=== PATIENT | female | born 1955 | race Caucasian/White ===

== ENCOUNTER → 2018-01-01 10:09 | Outpatient (CLI) | payer OTHER, SELFPAY ==
[2017-12-22 09:36] VITALS: BP 172/79; BMI 39.9
--- NOTE | 2018-01-01 14:45 | PFT ---
INTRODUCTION: The patient is a 62-year-old female currently under the care of myself the presents for pulmonary function testing secondary to a diagnosis of asthma. Respiratory therapy reports good patient effort reports no other concerns. Bronchodilators were used during testing. INTERPRETATION: Forced expiration spirometry demonstrates no evidence of a large airways obstructive ventilatory defect. There was no significant response to aerosolized bronchodilators, based upon strict ATS criteria. Spirograms are of good quality and plateau normally. Body plethysmography was performed and reveals a decreased TLC to 4.46 L, 83% of predicted, indicative of a mild restrictive ventilatory defect. The remainder of the lung volumes are symmetrically reduced. Decreased ERV may be suggestive of an underlying body habitus effect. Diffusing capacity by single breath CO is moderately reduced at 57% of predicted. IMPRESSION: These pulmonary function studies demonstrate the presence of a mild restrictive ventilatory defect with a disproportionate moderate reduction in diffusing capacity. There are no previous pulmonary function studies available for comparison.
== END ==
PROVIDERS: Family Provider Family Medicine; PCP Family Medicine; Visit Provider Internal Medicine Critical Care Medicine
DX: J45.909 Unspecified asthma, uncomplicated (principal)
CPT/HCPCS: 94060; 94726; 94729

== ENCOUNTER → 2018-01-19 11:39 | Outpatient (CLI) | payer OTHER, SELFPAY ==
[2018-01-19 13:47] LABS: Anion Gap 7 (5-15); BUN 14 mg/dL (7-18); BUN/Creat Ratio 20.3 RATIO (10-20); Calcium,Total 8.8 mg/dL (8.5-10.1); Chloride 106 mmol/L (98-107); Creatinine, Serum 0.69 mg/dL (0.55-1.02); EST Glomerular Filtration Rate 91 mL/min (>60); Est Glom Filt Rate - Afr Amer 111 mL/min (>60); Glucose 87 mg/dL (74-106); Sodium Level 141 mmol/L (136-145)
== END ==
PROVIDERS: Family Provider Family Medicine; PCP Family Medicine; Visit Provider Nurse Practitioner Acute Care
DX: R06.02 Shortness of breath (principal)
CPT/HCPCS: 36415; 80048

== ENCOUNTER → 2018-01-28 13:50 | Outpatient (CLI) | payer OTHER, SELFPAY ==
--- NOTE | 2018-01-28 13:51 | CT_ITS ---
STUDY: CT CHEST WITH CONTRAST REASON FOR EXAM: Female, 62 years old. Cough and shortness of breath. RADIATION DOSAGE (If Supplied By Facility): CTDIvol = ( ) mGy, DLP = ( ) mGycm TECHNIQUE: Transaxial imaging was performed following intravenous administration of 100mL ml of Isovue 300 contrast material. Individualized dose optimization techniques were used for this CT. COMPARISON: None. FINDINGS: There is hyperinflation of the lungs consistent with chronic obstructive lung disease (COPD). No infiltrates or effusions. There is no demonstrated pleural abnormality. There is moderate cardiac enlargement. Sternal cerclage wires and vascular clips are present from a prior sternotomy and coronary artery bypass graft procedure (CABG). Normal mediastinum. Normal hilar regions. Normal enhanced pulmonary arteries. There is atherosclerotic calcification of the aortic arch with tortuosity and elongation of the aortic arch and descending thoracic aorta. There are multi-level degenerative changes of the thoracic spine. There is no demonstrated abnormality of the visualized upper abdomen. CT/Chest WITH Contrast IMPRESSION: There is no definite acute abnormality. There is probable COPD. There is cardiomegaly. Electronically Signed: He Mustafa MD at 15:01 EST , Service support ,
== END ==
PROVIDERS: Family Provider Family Medicine; PCP Family Medicine; Visit Provider Nurse Practitioner Acute Care
DX: R06.02 Shortness of breath (principal); R05 Cough
CPT/HCPCS: 71260; Q9967

== ENCOUNTER → 2018-02-02 13:52 | Outpatient (CLI) | payer OTHER, SELFPAY ==
[2018-02-02 14:16] VITALS: PULSE 112; PULSE 113; PULSE 114; PULSE 117; PULSE 76; PULSE 81; PULSE 98; O2SAT 97; O2SAT 98
--- NOTE | 2018-02-02 14:21 | CPS ---
She became more SOB but just kept walking but slowed down.
--- NOTE | 2018-02-03 08:36 | WT_ITS ---
PSN 6 Minute Walk Test - 6 Minute Walk Test 6 Minute Walk Test: 6 Minute Walk Test PSN:6-Minute Walk Test Start: 02/02/18 14: 16 Freq: Status: Active Protocol: [id number] Document 02/02/18 14:16 FR (Rec: 02/02/18 14:22 FR [id number]) 6 Minute Walk Test Date Performed 02/02/18 Time Performed 14:00 Height 5 ft 7 in Weight: 113.398 kg Weight in Pounds 250.[address]: Xin Back Assistive device used: None Pre-test Oxygen Delivery Method Room Air Pulse Ox (%) 98 Pulse Rate (60-100 beats/min) 76 Dyspnea Charlie Scale (0-10) 1 Exertion Charlie Scale (6-20) 7 1st minute Oxygen Delivery Method Room Air Pulse Ox (%) 97 Pulse Rate (60-100 beats/min) 98 2nd minute Oxygen Delivery Method Room Air Pulse Ox (%) 97 Pulse Rate (60-100 beats/min) 113 H 3rd minute Oxygen Delivery Method Room Air Pulse Ox (%) 98 Pulse Rate (60-100 beats/min) 112 H 4th minute Oxygen Delivery Method Room Air Pulse Ox (%) 98 Pulse Rate (60-100 beats/min) 117 H Reported Symptoms Increased Work of Breathing 5th minute Oxygen Delivery Method Room Air Pulse Ox (%) 98 Pulse Rate (60-100 beats/min) 117 H Reported Symptoms Increased Work of Breathing 6th minute Oxygen Delivery Method Room Air Pulse Ox (%) 98 Pulse Rate (60-100 beats/min) 114 H Dyspnea Charlie Scale (0-10) 7 Exertion Charlie Scale (6-20) 13 Post-test Oxygen Delivery Method Room Air Pulse Ox (%) 98 Pulse Rate (60-100 beats/min) 81 Reported Symptoms Increased Work of Breathing Full Laps Walked 16 Partial Lap, Number of Tiles Walked 48 Total Distance Walked (ft) 992 02/02/18 14:21 Cardiopulmonary Services by Dolly Yuen She became more SOB but just kept walking but slowed down. Initialized on 02/02/18 14:21 - END OF NOTE - Interpretation Interpretation: The patient was able to ambulate 992 feet over the course of 6 minutes on room air with no assistive devices or breaks. The patient did not experience any significant desaturation, but did have significant tachycardia through testing. These findings are consistent with a cardiovascular versus deconditioning etiology of dyspnea on exertion. - Recommendations Recommendations: No supplemental oxygen is indicated at this time. Patient may benefit from initiation of an exercise routine.
== END ==
PROVIDERS: Family Provider Family Medicine; PCP Family Medicine; Visit Provider Nurse Practitioner Acute Care
DX: R06.09 Other forms of dyspnea (principal)
CPT/HCPCS: 94618

== ENCOUNTER → 2018-02-10 15:09 | Outpatient (CLI) | payer OTHER, SELFPAY | PROVIDERS: Family Provider Family Medicine; PCP Family Medicine; Visit Provider Nurse Practitioner Acute Care | DX: R05 Cough (principal) | CPT/HCPCS: 87070; 87205 ==

== ENCOUNTER → 2019-02-09 14:54 | Outpatient (CLI) | payer OTHER, SELFPAY ==
[2019-01-27 11:36] VITALS: BMI 42.3
== END ==
PROVIDERS: Family Provider Family Medicine; PCP Family Medicine; Referring Provider Nurse Practitioner Acute Care; Visit Provider Nurse Practitioner Acute Care
DX: R52 Pain, unspecified (principal)
CPT/HCPCS: 87633

== ENCOUNTER → 2021-09-02 11:42 | Outpatient (CLI) | payer MEDICARE, OTHER, SELFPAY ==
[2019-12-06 08:06] VITALS: BMI 38.5
--- NOTE | 2021-09-02 13:36 | NEURO_ITS ---
NCS and/or EMG Patient Report Ordering Doctor: Nestor Ibanez DATE OF SERVICE: 09/02/21 Indication: Bilateral hand tingling and numbness (right greater than left). Progressive over several years. Localized neck pain without radicular features. Evaluate for nerve entrapment. Findings: Nerve conduction studies were performed in the right and left upper extremities. The right median motor study recording the abductor pollicis brevis showed a normal amplitude, prolonged distal latency and normal conduction velocity. The right ulnar motor study recording the abductor digiti minimi showed a normal amplitude, normal distal latency and normal conduction velocity. No conduction block or focal slowing was present across the elbow. Right median-ulnar lumbrical / interosseous motor latencies showed a prolonged median latency compared to the ulnar. The right median sensory response recording digit two showed a slightly reduced amplitude, prolonged latency and markedly slowed conduction velocity. The right ulnar sensory response recording digit five showed a normal amplitude, latency and conduction velocity. The right radial sensory response recording over the extensor snuff box showed a normal amplitude, latency and conduction velocity. The left median motor study recording the abductor pollicis brevis showed a normal amplitude, prolonged distal latency and borderline conduction velocity. The left ulnar motor study recording the abductor digiti minimi showed a normal amplitude, normal distal latency and normal conduction velocity. No conduction block or focal slowing was present across the elbow. Left median-ulnar lumbrical / interosseous motor latencies showed a prolonged median latency compared to the ulnar. The left median sensory response recording digit two showed a normal amplitude, prolonged latency and markedly slowed conduction velocity. The left ulnar sensory response recording digit five showed a normal amplitude, latency and conduction velocity. The left radial sensory response recording over the extensor snuff box showed a normal amplitude, latency and conduction velocity. Needle EMG of the right upper extremity muscles was performed. No denervation was seen in any muscle. Motor units in the abductor pollicis brevis were slightly large amplitude and long duration with normal recruitment patterns. All other examined motor units revealed normal morphology, activation and recruitment patterns. Needle EMG of the left abductor pollicis brevis muscle was performed. No denervation was seen. Motor units in the abductor pollicis brevis were slightly large amplitude and long duration with normal recruitment. Impression: This is an abnormal study. 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 The pathophysiology is primarily demyelination, though there is some evidence of secondary axonal injury. These findings would be compatible with the clinical diagnosis of carpal tunnel syndrome. In addition, there is no electrophysiologic evidence of a superimposed cervical radiculopathy in the right upper extremity. Holland Minor D.O. Multi Select Codes Neurology Neurology Interp Codes: 49519-91 [facility] [place] tst done w/nerv tst gallego (interp) (-59), 19824-92 [facility] [place] test done w/n test comp (interp) and 03491-03 Nr cndj test 13/> studies (interp)
== END ==
PROVIDERS: PCP Family Medicine; Referring Provider Family Medicine; Visit Provider Family Medicine
DX: G56.03 Carpal tunnel syndrome, bilateral upper limbs (principal)
CPT/HCPCS: 95885; 95886; 95913

== ENCOUNTER 2023-04-23 09:30 | Outpatient (RCR) | payer MEDICARE, OTHER, SELFPAY ==
[2023-04-16 08:58] VITALS: TEMP 35.9; BMI 36.3
--- NOTE | 2023-04-16 09:19 | PCM.WC.HP ---
History of Present Illness Date of Service: 04/16/23 Chief Complaint: Left medial lower extremity ulceration History of Wound: Patient is a 67-year-old female with past medical history of basal cell carcinoma excised 02/04/2023 of the medial malleolus of the left lower extremity, HTN, obesity, knee replacement, and aortic valve insufficiency with murmur, SOB on exertion, and s/p double vessel coronary artery bypass. She states that she was sent by her primary care Dr. Bhavik Barker for evaluation of a nodular and infiltrative basal cell carcinoma in which she saw Dr. Lisa Pryor MD and underwent Mohs excision of the cancer site. Preoperative size of the lesion was noted to be 1.5 cm x 0.8 cm at the left distal pretibial region with final excised the defect size of 1.8 cm x 1.0 cm. She underwent local wound care in office however distance became a factor and she would like to continue to follow-up locally at the wound care center at [facility]. She states following a few days after the procedure she was on the treadmill and did have some swelling of the lower extremity site to which she feels may have worsened the wound. States she will continue to follow with dermatology for continued monitoring/follow-up. She currently denies any N/V/F/chills. Denies further complaints. [facility] Medical History (Updated 04/16/23 @ 12:[address] Gautam Walsh, DPM) Allergic rhinitis Aortic valve insufficiency Asthma Chronic cough Heart murmur Hernia HTN (hypertension) Home Medications albuterol sulfate 2.5 mg/3 mL (0.083 %) solution for nebulization 2.5 mg inhalation Q4H PRN 12/22/17 [History Last Taken Unknown] amlodipine 5 mg tablet 5 mg PO QDAY 12/22/17 [History Last Taken Unknown] aspirin 81 mg tablet,delayed release (Adult Aspirin Regimen) 81 mg PO QDAY 12/22/17 [History Last Taken Unknown] cholecalciferol (vitamin D3) 125 mcg (5,000 unit) capsule 5,000 unit PO QDAY 12/22/17 [History Last Taken Unknown] metoprolol tartrate 50 mg tablet 50 mg PO QDAY 12/22/17 [History Last Taken Unknown] omeprazole 20 mg capsule,delayed release 20 mg PO QDAY 12/22/17 [History Last Taken Unknown] pravastatin 40 mg tablet 40 mg PO QHS 12/22/17 [History Last Taken Unknown] valsartan 160 mg tablet 160 mg PO QDAY 12/22/17 [History Last Taken Unknown] diphenhydramine HCl 25 mg capsule (Benadryl) 25 mg PO QHS PRN 09/02/18 [History Last Taken Unknown] albuterol sulfate 90 mcg/actuation breath activated powder inhaler (ProAir RespiClick) 2 inh inhalation Q4H PRN shortness of breath or wheezing #1 ea 12/22/18 [Rx Last Taken Unknown] prednisone 10 mg tablet 10 mg PO QDAY #30 tabs 08/18/19 [Rx Last Taken Unknown] spacer #1 ea 03/06/20 [Rx Last Taken Unknown] fluticasone propionate 220 mcg/actuation HFA aerosol inhaler (Flovent HFA) 2 inh inhalation BID #12 grams 03/08/20 [Rx Last Taken Unknown] Allergy/AdvReac Type Severity Reaction Status Date / Time naproxen [From Naprosyn] Allergy Severe Hives Verified 12/06/19 10:55 Family History Mother Diabetes Father MADDY (obstructive sleep apnea) Surgical History Status post double vessel coronary artery bypass Total knee replacement status Social History second hand exposure: No alcohol intake: current alcohol intake frequency: a few times a month substance use type: former substance user Date of last use: marijuana in college ROS Constitutional Constitutional: Denies anorexia, change in weight, chills or fever(s) Eyes Eyes: Denies blurry vision, change in vision or double vision ENT HEENT: Denies dysphagia, nasal congestion, nasal discharge or sore throat Cardiovascular Cardiovascular: Denies chest pain, claudication or palpitations Respiratory/Chest Respiratory/Chest: Denies cough, shortness of breath at rest or wheezing Gastrointestinal Gastrointestinal: Denies abdominal pain, constipation, diarrhea, nausea or vomiting Genitourinary Genitourinary: Denies dysuria, hematuria, urinary frequency or urinary urgency Musculoskeletal Musculoskeletal: Denies joint pain, joint stiffness or joint swelling Integumentary Integumentary: Denies lesions, pruritus or rash Neurologic Neurologic: Denies dizziness, numbness or seizures Endocrine Endocrinology: Denies cold intolerance or heat intolerance Hematologic/Lymphatic Hematologic/Lymphatic: Denies easy bleeding or easy bruising Vital Signs Vital Signs Vital Signs: 04/16/23 08:58 Temperature 96.7 F L Temperature Source Temporal Weight Weight: 102.058 kg Body Mass Index (BMI) 36.3 Physical Exam Const alert, oriented x3 and no apparent distress General Appearance: cooperative HEENT normocephalic Eyes Eyes Narrative: Wears glasses General Eye: normal appearance of both eyes Neck General: normal visual inspection Lymph Lymphatic: no lymphadenopathy noted and no lymphedema noted Resp normal respiratory effort Cardio regular rate and regular rhythm Extremity normal capillary refill, no joint enlargement, no calf tenderness and no pedal edema Extremity Narrative: DP and PT pulses are palpable bilateral. Capillary fill time adequate to the digits bilaterally. She is noted to have a vascular malformation with reddish purplish discoloration to the anterior left lower extremity extending proximally to the thigh and up to the hip. Musculoskeletal: Muscle strength 5 of 5 age-appropriate. Does have second digit hammertoe deformity bilateral, this is flexible. Decreased range of motion of the first MTPJ without pain or crepitus bilateral and ankle joint with the knee in extension without pain and crepitus noted bilaterally. Skin no rashes or lesions noted and skin turgor normal Wound Narrative: Ulceration to the anterior aspect of the medial malleolus of the left lower extremity s/p Mohs excision of nodular infiltrative basal cell carcinoma. Ulcerative site demonstrates mixed fibrogranular tissue with well-defined borders and atrophic wound margin. No purulent drainage, no malodor, no erythema, no visible abscess formation, no palpable fluctuance/bogginess, no lymphangitis. Neuro moves all extremities Debridement Note Debridement Note Wound debrided: Left lower extremity Laterality: Left Wound Grade/Stage: Moyer stage I Type of Debridement: Excisional debridement Anesthesia Used: 5% Lidocaine Gel Depth: Down to and including healthy tissue and in the subcutaneous layer Percentage of wound debrided: 100 Instrument Used: 5mm curette Tissue Removed: Fibrous, devitalized subcutaneous, biofilm, slough Severity: Fat Layer Exposed Amount of bleeding with debridement: Mild Bleeding Controlled with: Compression and gauze Patient tolerated procedure: Patient tolerated procedure well Post-Debridement Measurements and Additional Note: Post-Debridement Measurements/Treatment SAKSHI - Nurse 1 - General Ulcer Assessment Start: 04/16/23 08:55 Freq: Status: Active Protocol: ELLEN Activity Type Activity Date Activity User E-sign Co-sign Detail Recorded Client Recorded Date Recorded By Document 04/16/23 08:58 DONNIE [id number] 04/16/23 09:14 DONNIE 04/16/23 08:58 WC - Today's Visit Information Type of service Initial Visit Arrival Mode Ambulatory Height and Weight Height 5 ft 6 in Weight 102.058 kg Weight in Pounds 225.0 lbs Body Mass Index (BMI) 36.3 BMI Classification Obese BSA - N[place]um 2.10 Vital Signs Temperature (97.8 F-99.1 F) 96.7 F L Temperature Source Temporal History Since Last Visit- (Skip if this is Patient's initial visit) Left Footwear Regular Shoe Right Footwear Regular Shoe Pain Scale: 0-10 Numeric Is Patient Pain Free? Yes SAKSHI - Nurse 1 - General Ulcer Measurement Start: 04/16/23 08:55 Freq: Status: Active Protocol: Activity Type Activity Date Activity User E-sign Co-sign Detail Recorded Client Recorded Date Recorded By Document 04/16/23 08:58 DONNIE [id number] 04/16/23 09:14 VT 04/16/23 08:58 Wound Center Nurse 1 #1 L medial ankle -Current Size (cm) - Length 1.5 -Current Size (cm) - Width 1.5 -Current Size (cm) - Depth 0.5 -Total Square Cm 2.25 -Date of Last Picture (Recall this 04/16/23 field) -Photo Taken Yes -Tunneling No -Undermining/Tunneling No -Circular Undermining No -Change in Wound Grade/Stage No -Exudate Amt Large -Exudate Type Yellow/Green -Wound Margin Distinct, Outline Attached -Granulation Amt Small (1-33%) -Granulation Quality [place] -Slough/Fibrin Yes -Necrosis Amt Large (67-100%) -Necrotic Tissue Type Adherent Slough -Structure Exposed N/A -Texture (Nighat-wound Skin Appearance) No Abnormality, Assessed -Moisture ([place]ighat-wound Skin Appearance) No Abnormality, Assessed -Color (Nighat-wound Skin Appearance) No Abnormality, Assessed -Temperature (Nighat-wound Skin No Abnormality Appearance) (Pt Warm) -Tenderness on Palpation (Nighat-wound No Skin Appearance) -Ulcer Cleansing Rinsed/ Irrigated with Saline -Foul Odor after Cleansing No -Anesthetic Used 5% Lidocaine Gel Right Calf (cm) 42 Right Ankle (cm) 22 Left Calf (cm) 38 Left Ankle (cm) 24 Assessment/Plan Assessment/Plan (1) BMI 40.0-44.9, adult: CODE(S): Z68.41 - Body mass index [BMI] 40.0-44.9, adult (2) HTN (hypertension): CODE(S): I10 - Essential (primary) hypertension (3) Basal cell carcinoma (BCC) of left lower extremity: CODE(S): C44.719 - Basal cell carcinoma of skin of left lower limb, including hip (4) Non-pressure chronic ulcer of skin of other sites with muscle involvement without evidence of necrosis: CODE(S): L98.495 - Non-pressure chronic ulcer of skin of other sites with muscle involvement without evidence of necrosis PLAN: Plan Patient seen and evaluated She underwent excision of nodular and infiltrative basal cell carcinoma on 02/04/[address] Lisa Pryor MD. cancerous lesion measured 1.5 cm x 0.8 cm preexcision; post excision final defect size measured 1.8 cm x 1.0 cm. She continues to follow with dermatology. Ulcerative site underwent debridement as noted in the clinical panel above. Ulceration measures 1.8 cm x 1.6 cm x 0.6 cm. No signs of infection. Healthy bleeding granular tissue noted postdebridement. Maryanne applied to the ulcerative bed today with dry sterile dressing. She is to change the dressing daily. Tubigrip stocking applied to lower extremity to aid in edema control. She was instructed to continue to wear the Tubigrip daily and elevate legs at all times of rest to aid in edema control. I believe she will benefit from placement of advanced wound care product, epi fix to aid her healing process. We will apply for EpiFix graft to be placed at next visit. Discussed adequate protein intake to aid in her wound healing. She may also take Robles supplementation to aid wound healing. Discussed signs and symptoms of infection to observe for. She was instructed that if she notices any redness about the ulcer site that moves up the leg, or if she has any purulent drainage, or increasing foul odor, or if she experiences fever greater than 101 degree, nausea, vomiting, chills that these are signs of a progressing infection and she needs to report to the ED. She voices understanding of this today. The following work up and care recommendations were made: Dressing: Maryanne and dry sterile dressing. Change daily Wash: Soap and water Tissue growth optimization: Maryanne Offload: Elevation of lower extremity at all times of rest. To ensure nothing rubs against the ulcerative site on the inside of the left leg. Vascular: DP and PT pulses palpable. Adequate capillary fill time. I do not feel her vascular status is impeding her healing. Edema: Elevation of the lower extremities at all times rest. Once ulcerative site healed plan for compression stockings to aid in edema control. Infection: No signs of infection. Pain: May take [id number] Tylenol as needed for discomfort. Host factors: Basal cell carcinoma left lower extremity, edema. I answered all the patient's questions. To return to the wound healing center in 1 week or call sooner if the patient has any questions or concerns.
[2023-04-23 09:23] VITALS: PULSE 77; RESP 18; TEMP 35.9; BMI 36.3
--- NOTE | 2023-04-23 09:33 | PCM.WC.PN ---
History of Present Illness Date of Service: 04/23/23 Chief Complaint: Left medial lower extremity ulceration History of Wound: Patient is a 67-year-old female with past medical history of basal cell carcinoma excised 02/04/2023 of the medial malleolus of the left lower extremity, HTN, obesity, knee replacement, and aortic valve insufficiency with murmur, SOB on exertion, and s/p double vessel coronary artery bypass. She states that she was sent by her primary care Dr. Bhavik Barker for evaluation of a nodular and infiltrative basal cell carcinoma in which she saw Dr. Lisa Pryor MD and underwent Mohs excision of the cancer site. Preoperative size of the lesion was noted to be 1.5 cm x 0.8 cm at the left distal pretibial region with final excised the defect size of 1.8 cm x 1.0 cm. She underwent local wound care in office however distance became a factor and she would like to continue to follow-up locally at the wound care center at [facility]. She states following a few days after the procedure she was on the treadmill and did have some swelling of the lower extremity site to which she feels may have worsened the wound. States she will continue to follow with dermatology for continued monitoring/follow-up. She currently denies any N/V/F/chills. Denies further complaints. Subjective Subjective This is a 67-year-old female who presents to the wound care center today for follow-up of left medial ankle ulceration s/p Mohs excision of basal cell carcinoma. She had been changing dressings daily to the site. Denies any constitutional symptoms today. Denies further complaints today. Objective Data Objective Data Vital Signs: Vital Signs Temp Pulse Resp 96.6 F L 77 18 04/23/23 09:23 04/23/23 09:23 04/23/23 09:23 Weight: 102.058 kg Body Mass Index (BMI) 36.3 Physical Exam Const alert, oriented x3 and no apparent distress General Appearance: cooperative HEENT normocephalic Eyes Eyes Narrative: Wears glasses General Eye: normal appearance of both eyes Neck General: normal visual inspection Lymph Lymphatic: no lymphadenopathy noted and no lymphedema noted Resp normal respiratory effort Cardio regular rate and regular rhythm Extremity normal capillary refill, no joint enlargement, no calf tenderness and no pedal edema Extremity Narrative: DP and PT pulses are palpable bilateral. Capillary fill time adequate to the digits bilaterally. She is noted to have a vascular malformation with reddish purplish discoloration to the anterior left lower extremity extending proximally to the thigh and up to the hip. Musculoskeletal: Muscle strength 5 of 5 age-appropriate. Does have second digit hammertoe deformity bilateral, this is flexible. Decreased range of motion of the first MTPJ without pain or crepitus bilateral and ankle joint with the knee in extension without pain and crepitus noted bilaterally. Skin no rashes or lesions noted and skin turgor normal Wound Narrative: Ulceration to the anterior aspect of the medial malleolus of the left lower extremity s/p Mohs excision of nodular infiltrative basal cell carcinoma. Ulcerative site demonstrates mixed fibrogranular tissue with well-defined borders and atrophic wound margin. No purulent drainage, no malodor, no erythema, no visible abscess formation, no palpable fluctuance/bogginess, no lymphangitis. Neuro moves all extremities Debridement Note Debridement Note Wound debrided: Left medial ankle Laterality: Left Wound Grade/Stage: Moyer stage I Type of Debridement: Excisional debridement Depth: Down to and including healthy tissue and in the subcutaneous layer Percentage of wound debrided: 100 Instrument Used: 5mm curette Tissue Removed: Fibrous, devitalized subcutaneous, biofilm, slough Severity: Fat Layer Exposed Amount of bleeding with debridement: Mild Bleeding Controlled with: Compression and gauze Patient tolerated procedure: Patient tolerated procedure well Post-Debridement Measurements and Additional Note: Post-Debridement Measurements/Treatment - Nurse 1 - General Ulcer Assessment Start: 04/16/23 08:55 Freq: Status: Active Protocol: [email or web address] Activity Type Activity Date Activity User E-sign Co-sign Detail Recorded Client Recorded Date Recorded By Document 04/16/23 08:58 AK [id number] 04/16/23 09:14 AK Document 04/23/23 09:23 JANIE [id number] 04/23/23 09:27 JANIE 04/16/23 04/23/23 08:58 09:23 - Today's Visit Information Type of service Initial Visit Follow-up Visit (Physician/BALANCER ) Arrival Mode Ambulatory Ambulatory Patient Identification Verified (Name & Yes ) Patient Requires Transmission-Based No Precautions Height and Weight Height 5 ft 6 in Weight 102.058 kg Weight in Pounds 225.0 lbs Body Mass Index (BMI) 36.3 36.3 BMI Classification Obese Obese BSA - [place]um 2.10 Vital Signs Temperature (97.8 F-99.1 F) 96.7 F L 96.6 F L Temperature Source Temporal Temporal Pulse Rate (60-100) 77 Pulse Location Monitor Respiratory Rate (12-18) 18 Respiratory rate source Observation History Since Last Visit- (Skip if this is Patient's initial visit) Have you changed medications since your No last visit? Any new allergies or adverse reactions No Had a fall/change in ADL's that may No increase risk of falls Have you been in the hospital since your No last visit? Has dressing in place as prescribed Yes Has compression in place as prescribed Yes Has offloadiing in place as prescribed N/A Experienced any changes in pain level or No management Left Footwear Regular Shoe Regular Shoe Right Footwear Regular Shoe Regular Shoe Pain Scale: 0-10 Numeric Is Patient Pain Free? Yes Yes WC - Nurse 1 - General Ulcer Measurement Start: 04/16/23 08:55 Freq: Status: Active Protocol: Activity Type Activity Date Activity User E-sign Co-sign Detail Recorded Client Recorded Date Recorded By Document 04/16/23 08:58 AK [id number] 04/16/23 09:14 AK Document 04/23/23 09:23 [id number] 04/23/23 09:27 JF 04/16/23 04/23/23 08:58 09:23 Wound Center Nurse 1 #1 L medial ankle -Combined with other wound No -Current Size (cm) - Length 1.5 1.3 -Current Size (cm) - Width 1.5 1.5 -Current Size (cm) - Depth 0.5 0.4 -Total Square Cm 2.25 1.95 -Date of Last Picture (Recall this 04/16/23 field) -Photo Taken Yes Yes -Epithelialization Small 1-33% -Tunneling No No -Undermining/Tunneling No No -Circular Undermining No No -Change in Wound Grade/Stage No -Exudate Amt Large Small -Exudate Type Yellow/Green Serosanguineous -Wound Margin Distinct, Flat & Intact Outline Attached -Granulation Amt Small (1-33%) Small (1-33%) -Granulation Quality [place] Pale -Slough/Fibrin Yes Yes -Necrosis Amt Large (67-100%) Large (67-100%) -Necrotic Tissue Type Adherent Slough Adherent Slough -Structure Exposed N/A N/A -Texture (Nighat-wound Skin Appearance) No Abnormality, Assessed, Assessed Localized Edema -Moisture (Nighat-wound Skin Appearance) No Abnormality, Assessed,Dry/ Assessed Scaly -Color (Nighat-wound Skin Appearance) No Abnormality, Assessed Assessed -Temperature (Nighat-wound Skin No Abnormality No Abnormality Appearance) (Pt Warm) (Pt Warm) -Tenderness on Palpation (Nighat-wound No No Skin Appearance) -Ulcer Cleansing Rinsed/ Rinsed/ Irrigated with Irrigated with Saline Saline -Foul Odor after Cleansing No No -Anesthetic Used 5% Lidocaine 5% Lidocaine Gel Gel Lower Limb Edema Present Yes Right Calf (cm) 42 Right Ankle (cm) 22 Left Calf (cm) 38 37 Left Ankle (cm) 24 22 WC - Nurse 2 - General Ulcer CM Notes Start: 04/16/23 08:55 Freq: Status: Active Protocol: Activity Type Activity Date Activity User E-sign Co-sign Detail Recorded Client Recorded Date Recorded By Document 04/16/23 10:10 NAYELI [id number] 04/16/23 10:11 PL 04/16/23 10:10 Wound Center Nurse 2 #1 L medial ankle -Time 09:40 -Correct Patient Yes -Correct Side, Site, Position Yes -Correct Procedure Yes -Procedure Performed Yes -Type of Procedure Debridement -Clinical Debridement Subcutaneous -Tissue Removed Subcutaneous -Post Debridement (cm) - Length 1.8 -Post Debridement (cm) - Width 1.6 -Post Debridement (cm) - Depth 0.2 -Total Square (Post) (cm) 2.88 -Area of Debridement (cm) - Length 1.8 -Area of Debridement (cm) - Width 1.6 -Total Square (Area) (cm) 2.88 -Tunneling No -Undermining/Tunneling No -Circular Undermining No -Wound/Ulcer Outcome Not Healed -Ulcer Cleansing Rinsed/ Irrigated with Saline -Foul Odor after Cleansing No -Bioengineered Tissue No -Bleeding Controlled with Pressure -Treatment Response Procedure Tolerated Well -Debridement - Subq, 1st 20sq cm Yes Pain Scale: 0-10 Numeric Is Patient Pain Free? Yes - Nurse 3 - General Ulcer D/C NN Start: 04/16/23 08:55 Freq: Status: Active Protocol: Activity Type Activity Date Activity User E-sign Co-sign Detail Recorded Client Recorded Date Recorded By Document 04/16/23 10:02 HYACINTH [id number] 04/16/23 10:04 HYACINTH 04/16/23 10:02 Wound Care Center Nurse 3 #1 L medial ankle -Ulcer Cleansing Rinsed/ Irrigated with Saline -Foul Odor after Cleansing No -Primary Dressing Applied Mepilex Border, Promogran Maryanne Matter -Mepilex Border 1 -Promogran Maryanne Matter 1 Treatment Response Procedure Tolerated Well Pain Scale: 0-10 Numeric Is Patient Pain Free? Yes WC - Visit Discharge Discharge Condition Stable Ambulatory Status Ambulatory Transportation Private Auto Assessment/Plan Assessment/Plan (1) BMI 40.0-44.9, adult: CODE(S): Z68.41 - Body mass index [BMI] 40.0-44.9, adult (2) HTN (hypertension): CODE(S): I10 - Essential (primary) hypertension (3) Basal cell carcinoma (BCC) of left lower extremity: CODE(S): C44.719 - Basal cell carcinoma of skin of left lower limb, including hip (4) Non-pressure chronic ulcer of skin of other sites with muscle involvement without evidence of necrosis: CODE(S): L98.495 - Non-pressure chronic ulcer of skin of other sites with muscle involvement without evidence of necrosis PLAN: Plan Patient seen and evaluated She underwent excision of nodular and infiltrative basal cell carcinoma on 02/04/[address] Lisa Pryor MD. cancerous lesion measured 1.5 cm x 0.8 cm preexcision; post excision final defect size measured 1.8 cm x 1.0 cm. She continues to follow with dermatology. Ulcerative site underwent debridement as noted in the clinical panel above. Ulceration measures 1.5 cm x 1.5 cm x 0.4 cm. No signs of infection. Healthy bleeding granular tissue noted postdebridement. EpiFix graft #1 applied to the ulcerative bed today and dressed with Adaptic touch, Steri-Strips and dry sterile dressing. She is to change the outer dressing as needed. She was instructed to not get the dressings wet. Tubigrip stocking applied to lower extremity to aid in edema control. She was instructed to continue to wear the Tubigrip daily and elevate legs at all times of rest to aid in edema control. Ulceration is noted to have some improvement in reduction of size versus previous visit. Discussed adequate protein intake to aid in her wound healing. She may also take Robles supplementation to aid wound healing. Discussed signs and symptoms of infection to observe for. She was instructed that if she notices any redness about the ulcer site that moves up the leg, or if she has any purulent drainage, or increasing foul odor, or if she experiences fever greater than 101 degree, nausea, vomiting, chills that these are signs of a progressing infection and she needs to report to the ED. She voices understanding of this today. The following work up and care recommendations were made: Dressing: EpiFix, Adaptic touch, Steri-Strips and dry sterile dressing. Change outer dressings as needed Wash: Do not get wet Tissue growth optimization: EpiFix Offload: Elevation of lower extremity at all times of rest. To ensure nothing rubs against the ulcerative site on the inside of the left leg. Vascular: DP and PT pulses palpable. Adequate capillary fill time. I do not feel her vascular status is impeding her healing. Edema: Elevation of the lower extremities at all times rest. Once ulcerative site healed plan for compression stockings to aid in edema control. Infection: No signs of infection. Pain: May take [id number] Tylenol as needed for discomfort. Host factors: Basal cell carcinoma left lower extremity, edema. I answered all the patient's questions. To return to the wound healing center in 1 week or call sooner if the patient has any questions or concerns.
[2023-04-23 09:49] VITALS: BP 169/101; PULSE 73; BMI 36.3
== END 2023-04-29 23:59 | disposition home or self-care (01) ==
LOC: WC 09:30
PROVIDERS: PCP Family Medicine; Referring Provider Dermatology MOHS-Micrographic Surgery; Visit Provider Student in an Organized Health Care Education/Training Program
DX: L98.492 Non-pressure chronic ulcer of skin of other sites with fat layer exposed (principal); F12.90 Cannabis use, unspecified, uncomplicated; C44.719 Basal cell carcinoma of skin of left lower limb, including hip; I10 Essential (primary) hypertension
CPT/HCPCS: 11042; 15271; 99213; Q4186; G0463

== ENCOUNTER 2023-05-28 09:45 | Outpatient (RCR) | payer MEDICARE, OTHER, SELFPAY ==
[2023-04-30 00:46] VITALS: BP 169/101; PULSE 73; RESP 18; TEMP 35.9; BMI 36.3
[2023-04-30 09:24] VITALS: BP 193/89; PULSE 75; RESP 18; TEMP 36; BMI 36.3
--- NOTE | 2023-04-30 09:46 | PN.PCM_ITS ---
History of Present Illness Date of Service: 04/30/23 Chief Complaint: Left medial lower extremity ulceration History of Wound: Patient is a 67-year-old female with past medical history of basal cell carcinoma excised 02/04/2023 of the medial malleolus of the left lower extremity, HTN, obesity, knee replacement, and aortic valve insufficiency with murmur, SOB on exertion, and s/p double vessel coronary artery bypass. She states that she was sent by her primary care Dr. Bhavik Barker for evaluation of a nodular and infiltrative basal cell carcinoma in which she saw Dr. Lisa Pyror MD and underwent Mohs excision of the cancer site. Preoperative size of the lesion was noted to be 1.5 cm x 0.8 cm at the left distal pretibial region with final excised the defect size of 1.8 cm x 1.0 cm. She underwent local wound care in office however distance became a factor and she would like to continue to follow-up locally at the wound care center at [facility]. She states following a few days after the procedure she was on the treadmill and did have some swelling of the lower extremity site to which she feels may have worsened the wound. States she will continue to follow with dermatology for continued monitoring/follow-up. She currently denies any N/V/F/chills. Denies further complaints. Subjective Subjective This is a 67-year-old female who presents to the wound care center today for follow-up of left medial ankle ulceration s/p Mohs excision of basal cell carcinoma.? She had been changing outer dressings as needed and has left the graft in place.? Denies any constitutional symptoms today.? Denies further complaints today. Objective Data Objective Data Vital Signs: Vital Signs Temp Pulse Resp BP 96.8 F L 75 18 193/89 H 04/30/23 09:24 04/30/23 09:24 04/30/23 09:24 04/30/23 09:24 Weight: 102.058 kg Body Mass Index (BMI) 36.3 Physical Exam Const alert, oriented x3 and no apparent distress General Appearance: cooperative HEENT normocephalic Eyes General Eye: normal appearance of both eyes Neck General: normal visual inspection Lymph Lymphatic: no lymphadenopathy noted and no lymphedema noted Resp normal respiratory effort Cardio regular rate and regular rhythm Extremity normal capillary refill, no joint enlargement, no calf tenderness and no pedal edema Extremity Narrative: DP and PT pulses are palpable bilateral.? Capillary fill time adequate to the digits bilaterally.? She is noted to have a vascular malformation with reddish purplish discoloration to the anterior left lower extremity extending proximally to the thigh and up to the hip. Musculoskeletal: Muscle strength 5 of 5 age-appropriate.? Does have second digit hammertoe deformity bilateral, this is flexible.? Decreased range of motion of the first MTPJ without pain or crepitus bilateral and ankle joint with the knee in extension without pain and crepitus noted bilaterally. Skin no rashes or lesions noted, skin turgor normal and no jaundice Wound Narrative: Ulceration to the anterior aspect of the medial malleolus of the left lower extremity s/p Mohs excision of nodular infiltrative basal cell carcinoma.? Ulcerative site demonstrates mixed fibrogranular tissue with well-defined borders and atrophic wound margin.? No purulent drainage, no malodor, no erythema, no visible abscess formation, no palpable fluctuance/bogginess, no lymphangitis. Neuro moves all extremities Debridement Note Debridement Note Wound debrided: Left medial leg Laterality: Left Wound Grade/Stage: Moyer stage I Type of Debridement: Excisional debridement Anesthesia Used: 5% Lidocaine Gel Depth: Down to and including healthy tissue and in the subcutaneous layer Percentage of wound debrided: 100 Instrument Used: 5mm curette Tissue Removed: Fibrous, devitalized subcutaneous, biofilm, slough Severity: Fat Layer Exposed Amount of bleeding with debridement: Mild Bleeding Controlled with: Compression and gauze Patient tolerated procedure: Patient tolerated procedure well Post-Debridement Measurements and Additional Note: Post-Debridement Measurements/Treatment - Nurse 1 - General Ulcer Assessment Start: 04/30/23 09:24 Freq: Status: Active Protocol: SAKSHI.LOWEXT Activity Type Activity Date Activity User E-sign Co-sign Detail Recorded Client Recorded Date Recorded By Document 04/30/23 09:24 JANIE [id number] 04/30/23 09:40 JANIE 04/30/23 09:24 - Today's Visit Information Type of service Follow-up Visit (Physician/[employer] ) Arrival Mode Ambulatory Patient Identification Verified (Name & Yes ) Patient Requires Transmission-Based No Precautions Height and Weight Body Mass Index (BMI) 36.3 BMI Classification Obese Vital Signs Temperature (97.8 F-99.1 F) 96.8 F L Temperature Source Temporal Pulse Rate (60-100) 75 Pulse Location Monitor Respiratory Rate (12-18) 18 Blood Pressure (90/60-120/80) 193/89 H Blood Pressure Mean (mm Hg) 123 Source Monitor Position Semi-Fowlers Blood Pressure Location Left Arm History Since Last Visit- (Skip if this is Patient's initial visit) Have you changed medications since your No last visit? Any new allergies or adverse reactions No Had a fall/change in ADL's that may No increase risk of falls Signs or symptoms of abuse and/or No neglect since last visit Have you been in the hospital since your No last visit? Has dressing in place as prescribed Yes Has compression in place as prescribed Yes Has offloadiing in place as prescribed N/A Experienced any changes in pain level or No management Left Footwear Regular Shoe Right Footwear Regular Shoe Pain Scale: 0-10 Numeric Is Patient Pain Free? Yes WC - Nurse 1 - General Ulcer Measurement Start: 04/30/23 09:24 Freq: Status: Active Protocol: Activity Type Activity Date Activity User E-sign Co-sign Detail Recorded Client Recorded Date Recorded By Document 04/30/23 09:24 JANIE [id number] 04/30/23 09:40 JANIE 04/30/23 09:24 Wound Center Nurse 1 #1 L medial ankle -Combined with other wound No -Current Size (cm) - Length 1.6 -Current Size (cm) - Width 1.5 -Current Size (cm) - Depth 0.4 -Total Square Cm 2.40 -Photo Taken Yes -Epithelialization Small 1-33% -Tunneling No -Undermining/Tunneling No -Circular Undermining No -Exudate Amt Medium -Exudate Type Serosanguineous -Wound Margin Flat & Intact -Granulation Amt Medium (34-66%) -Granulation Quality Red -Slough/Fibrin Yes -Necrosis Amt Small (1-33%) -Necrotic Tissue Type Adherent Slough -Structure Exposed N/A -Texture (Nighat-wound Skin Appearance) Assessed -Moisture (Nighat-wound Skin Appearance) Assessed,Dry/ Scaly -Color (Nighat-wound Skin Appearance) Assessed -Temperature (Nighat-wound Skin No Abnormality Appearance) (Pt Warm) -Tenderness on Palpation (Nighat-wound No Skin Appearance) -Ulcer Cleansing Wound Cleanser -Foul Odor after Cleansing No -Anesthetic Used 5% Lidocaine Gel Lower Limb Edema Present Yes Left Calf (cm) 37.6 Left Ankle (cm) 21.1 Assessment/Plan Assessment/Plan (1) Non-pressure chronic ulcer of skin of other sites with muscle involvement without evidence of necrosis: CODE(S): L98.495 - Non-pressure chronic ulcer of skin of other sites with muscle involvement without evidence of necrosis (2) Basal cell carcinoma (BCC) of left lower extremity: CODE(S): C44.719 - Basal cell carcinoma of skin of left lower limb, including hip (3) HTN (hypertension): CODE(S): I10 - Essential (primary) hypertension (4) BMI 40.0-44.9, adult: CODE(S): Z68.41 - Body mass index [BMI] 40.0-44.9, adult PLAN: Plan Patient seen and evaluated She underwent excision of nodular and infiltrative basal cell carcinoma on 02/04/[address] Lisa Pryor MD. cancerous lesion measured 1.5 cm x 0.8 cm preexcision; post excision final defect size measured 1.8 cm x 1.0 cm.? She continues to follow with dermatology. Ulcerative site underwent debridement as noted in the clinical panel above.? Ulceration measures 1.5 cm x 1.5 cm x 0.8 cm.? No signs of infection.? Healthy bleeding granular tissue noted postdebridement.? EpiFix graft #2 applied to the ulcerative bed today and dressed with Adaptic touch, Steri-Strips and dry sterile dressing.? She is to change the outer dressing as needed.? She was instructed to not get the dressings wet.? Tubigrip stocking applied to lower extremity to aid in edema control.? She was instructed to continue to wear the Tubigrip daily and elevate legs at all times of rest to aid in edema control. Ulceration is noted to have some improvement in reduction of size versus previous visit. Discussed adequate protein intake to aid in her wound healing.? She may also take Robles supplementation to aid wound healing. Discussed signs and symptoms of infection to observe for.? She was instructed that if she notices any redness about the ulcer site that moves up the leg, or if she has any purulent drainage, or increasing foul odor, or if she experiences fever greater than 101 degree, nausea, vomiting, chills that these are signs of a progressing infection and she needs to report to the ED.? She voices understanding of this today. The following work up and care recommendations were made: Dressing: EpiFix, Adaptic touch, Steri-Strips and dry sterile dressing.? Change outer dressings as needed Wash: Do not get wet Tissue growth optimization: EpiFix Offload: Elevation of lower extremity at all times of rest.? To ensure nothing rubs against the ulcerative site on the inside of the left leg. Vascular: DP and PT pulses palpable.? Adequate capillary fill time.? I do not feel her vascular status is impeding her healing. Edema: Elevation of the lower extremities at all times rest.? Once ulcerative site healed plan for compression stockings to aid in edema control. Infection: No signs of infection. Pain: May take [id number] Tylenol as needed for discomfort. Host factors: Basal cell carcinoma left lower extremity, edema. ? I answered all the patient's questions.? To return to the wound healing center in 1 week or call sooner if the patient has any questions or concerns.
--- NOTE | 2023-05-07 09:13 | PN.PCM_ITS ---
History of Present Illness Date of Service: 05/07/23 Chief Complaint: Left medial lower extremity ulceration History of Wound: Patient is a 67-year-old female with past medical history of basal cell carcinoma excised 02/04/2023 of the medial malleolus of the left lower extremity, HTN, obesity, knee replacement, and aortic valve insufficiency with murmur, SOB on exertion, and s/p double vessel coronary artery bypass. She states that she was sent by her primary care Dr. Bhavik Barker for evaluation of a nodular and infiltrative basal cell carcinoma in which she saw Dr. Lisa Pryor MD and underwent Mohs excision of the cancer site. Preoperative size of the lesion was noted to be 1.5 cm x 0.8 cm at the left distal pretibial region with final excised the defect size of 1.8 cm x 1.0 cm. She underwent local wound care in office however distance became a factor and she would like to continue to follow-up locally at the wound care center at [facility]. She states following a few days after the procedure she was on the treadmill and did have some swelling of the lower extremity site to which she feels may have worsened the wound. States she will continue to follow with dermatology for continued monitoring/follow-up. She currently denies any N/V/F/chills. Denies further complaints. Subjective Subjective This is a 67-year-old female who presents to the wound care center today for follow-up of left medial ankle ulceration s/p Mohs excision of basal cell carcinoma.? She had been changing outer dressings as needed and has left the graft in place.? States she does believe it is a little smaller. Denies any constitutional symptoms today.? Denies further complaints today. Objective Data Objective Data Vital Signs: Vital Signs Temp Pulse Resp BP 96.8 F L 75 18 193/89 H 04/30/23 09:24 04/30/23 09:24 04/30/23 09:24 04/30/23 09:24 Weight: 102.058 kg Body Mass Index (BMI) 36.3 Physical Exam Const alert, oriented x3 and no apparent distress General Appearance: cooperative HEENT normocephalic Eyes General Eye: normal appearance of both eyes Neck General: normal visual inspection Lymph Lymphatic: no lymphadenopathy noted and no lymphedema noted Resp normal respiratory effort Cardio regular rate and regular rhythm Extremity normal capillary refill, no joint enlargement, no calf tenderness and no pedal edema Extremity Narrative: DP and PT pulses are palpable bilateral.? Capillary fill time adequate to the digits bilaterally.? She is noted to have a vascular malformation with reddish purplish discoloration to the anterior left lower extremity extending proximally to the thigh and up to the hip. Musculoskeletal: Muscle strength 5 of 5 age-appropriate.? Does have second digit hammertoe deformity bilateral, this is flexible.? Decreased range of motion of the first MTPJ without pain or crepitus bilateral and ankle joint with the knee in extension without pain and crepitus noted bilaterally. Skin no rashes or lesions noted, skin turgor normal and no jaundice Wound Narrative: Ulceration to the anterior aspect of the medial malleolus of the left lower extremity s/p Mohs excision of nodular infiltrative basal cell carcinoma.? Ulcerative site demonstrates mixed fibrogranular tissue with well-defined borders and atrophic wound margin.? No purulent drainage, no malodor, no erythema, no visible abscess formation, no palpable fluctuance/bogginess, no lymphangitis. Neuro moves all extremities Debridement Note Debridement Note Wound debrided: Left lower extremity Laterality: Left Wound Grade/Stage: Moyer stage I Type of Debridement: Excisional debridement Anesthesia Used: 5% Lidocaine Gel Depth: Down to and including healthy tissue and in the subcutaneous layer Percentage of wound debrided: 100 Instrument Used: 5mm curette Tissue Removed: Fibrous, devitalized subcutaneous, biofilm, slough Severity: Fat Layer Exposed Amount of bleeding with debridement: Mild Bleeding Controlled with: Compression and gauze Patient tolerated procedure: Patient tolerated procedure well Post-Debridement Measurements and Additional Note: Post-Debridement Measurements/Treatment - Nurse 1 - General Ulcer Assessment Start: 04/30/23 09:24 Freq: Status: Active Protocol: [email or web address] Activity Type Activity Date Activity User E-sign Co-sign Detail Recorded Client Recorded Date Recorded By Document 04/30/23 09:24 JANIE [id number] 04/30/23 09:40 JANIE 04/30/23 09:24 - Today's Visit Information Type of service Follow-up Visit (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/[employer]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 ) Arrival Mode Ambulatory Patient Identification Verified (Name & Yes ) Patient Requires Transmission-Based No Precautions Height and Weight Body Mass Index (BMI) 36.3 BMI Classification Obese Vital Signs Temperature (97.8 F-99.1 F) 96.8 F L Temperature Source Temporal Pulse Rate (60-100) 75 Pulse Location Monitor Respiratory Rate (12-18) 18 Blood Pressure (90/60-120/80) 193/89 H Blood Pressure Mean (mm Hg) 123 Source Monitor Position Semi-Fowlers Blood Pressure Location Left Arm History Since Last Visit- (Skip if this is Patient's initial visit) Have you changed medications since your No last visit? Any new allergies or adverse reactions No Had a fall/change in ADL's that may No increase risk of falls Signs or symptoms of abuse and/or No neglect since last visit Have you been in the hospital since your No last visit? Has dressing in place as prescribed Yes Has compression in place as prescribed Yes Has offloadiing in place as prescribed N/A Experienced any changes in pain level or No management Left Footwear Regular Shoe Right Footwear Regular Shoe Pain Scale: 0-10 Numeric Is Patient Pain Free? Yes WC - Nurse 1 - General Ulcer Measurement Start: 04/30/23 09:24 Freq: Status: Active Protocol: Activity Type Activity Date Activity User E-sign Co-sign Detail Recorded Client Recorded Date Recorded By Document 04/30/23 09:24 JANIE [id number] 04/30/23 09:40 JANIE 04/30/23 09:24 Wound Center Nurse 1 #1 L medial ankle -Combined with other wound No -Current Size (cm) - Length 1.6 -Current Size (cm) - Width 1.5 -Current Size (cm) - Depth 0.4 -Total Square Cm 2.40 -Photo Taken Yes -Epithelialization Small 1-33% -Tunneling No -Undermining/Tunneling No -Circular Undermining No -Exudate Amt Medium -Exudate Type Serosanguineous -Wound Margin Flat & Intact -Granulation Amt Medium (34-66%) -Granulation Quality Red -Slough/Fibrin Yes -Necrosis Amt Small (1-33%) -Necrotic Tissue Type Adherent Slough -Structure Exposed N/A -Texture ([place]ighat-wound Skin Appearance) Assessed -Moisture ([place]ighat-wound Skin Appearance) Assessed,Dry/ Scaly -Color ([place]-wound Skin Appearance) Assessed -Temperature ([place]-wound Skin No Abnormality Appearance) (Pt Warm) -Tenderness on Palpation ([place]-wound No Skin Appearance) -Ulcer Cleansing Wound Cleanser -Foul Odor after Cleansing No -Anesthetic Used 5% Lidocaine Gel Lower Limb Edema Present Yes Left Calf (cm) 37.6 Left Ankle (cm) 21.1 WC - Nurse 2 - General Ulcer CM Notes Start: 04/30/23 09:24 Freq: Status: Active Protocol: Activity Type Activity Date Activity User E-sign Co-sign Detail Recorded Client Recorded Date Recorded By Document 04/30/23 12:15 PL [id number] 04/30/23 12:17 PL 04/30/23 12:15 Wound Center Nurse 2 #1 L medial ankle -Time 10:21 -Correct Patient Yes -Correct Side, Site, Position Yes -Correct Procedure Yes -Procedure Performed Yes -Type of Procedure Debridement -Clinical Debridement Subcutaneous -Tissue Removed Subcutaneous -Post Debridement (cm) - Length 1.5 -Post Debridement (cm) - Width 1.5 -Post Debridement (cm) - Depth 0.9 -Total Square (Post) (cm) 2.25 -Area of Debridement (cm) - Length 1.5 -Area of Debridement (cm) - Width 1.5 -Total Square (Area) (cm) 2.25 -Tunneling No -Undermining/Tunneling No -Circular Undermining No -Wound/Ulcer Outcome Not Healed -Ulcer Cleansing Rinsed/ Irrigated with Saline -Foul Odor after Cleansing No -Bioengineered Tissue Yes -Type of Bioengineered Tissue Epifix 18mm Disc -Expiration Date 01/29/28 -Product Lot Number [id number] -Percent Used 100 -Bleeding Controlled with Pressure -Treatment Response Procedure Tolerated Well -Debridement - Subq, 1st 20sq cm No -Apply Skin Sub - 1st 25 sq cm - Legs 1 -Epifix 18mm Disc 3 Pain Scale: 0-10 Numeric Is Patient Pain Free? Yes WC - Nurse 3 - General Ulcer D/C NN Start: 04/30/23 09:24 Freq: Status: Active Protocol: Activity Type Activity Date Activity User E-sign Co-sign Detail Recorded Client Recorded Date Recorded By Document 04/30/23 09:59 AK [id number] 04/30/23 10:00 AK Undo 04/30/23 09:59 AK Adjusting Time [id number] 04/30/23 10:01 AK Assessment/Plan Assessment/Plan (1) Non-pressure chronic ulcer of skin of other sites with muscle involvement without evidence of necrosis: CODE(S): L98.495 - Non-pressure chronic ulcer of skin of other sites with muscle involvement without evidence of necrosis (2) Basal cell carcinoma (BCC) of left lower extremity: CODE(S): C44.719 - Basal cell carcinoma of skin of left lower limb, including hip (3) HTN (hypertension): CODE(S): I10 - Essential (primary) hypertension (4) BMI 40.0-44.9, adult: CODE(S): Z68.41 - Body mass index [BMI] 40.0-44.9, adult (5) Non-pressure chronic ulcer of left calf with fat layer exposed: CODE(S): L97.222 - Non-pressure chronic ulcer 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 Lisa Pryor MD. cancerous lesion measured 1.5 cm x 0.8 cm preexcision; post excision final defect size measured 1.8 cm x 1.0 cm.? She continues to follow with dermatology. Ulcerative site underwent debridement as noted in the clinical panel above.? Ulceration measures 1.4 cm x 1.3 cm x 0.4 cm.? No signs of infection.? Healthy bleeding granular tissue noted postdebridement.? EpiFix graft #3 applied to the ulcerative bed today and dressed with Adaptic touch, Steri-Strips and dry sterile dressing.? She is to change the outer dressing as needed.? She was instructed to not get the dressings wet.? Tubigrip stocking applied to lower extremity to aid in edema control.? She was instructed to continue to wear the Tubigrip daily and elevate legs at all times of rest to aid in edema control. Ulceration is noted to have some improvement in reduction of size versus previous visit. Discussed adequate protein intake to aid in her wound healing.? She may also take Robles supplementation to aid wound healing. Discussed signs and symptoms of infection to observe for.? She was instructed that if she notices any redness about the ulcer site that moves up the leg, or if she has any purulent drainage, or increasing foul odor, or if she experiences fever greater than 101 degree, nausea, vomiting, chills that these are signs of a progressing infection and she needs to report to the ED.? She voices understanding of this today. The following work up and care recommendations were made: Dressing: EpiFix, Adaptic touch, Steri-Strips and dry sterile dressing.? Change outer dressings as needed Wash: Do not get wet Tissue growth optimization: EpiFix Offload: Elevation of lower extremity at all times of rest.? To ensure nothing rubs against the ulcerative site on the inside of the left leg. Vascular: DP and PT pulses palpable.? Adequate capillary fill time.? I do not feel her vascular status is impeding her healing. Edema: Elevation of the lower extremities at all times rest.? Once ulcerative site healed plan for compression stockings to aid in edema control. Infection: No signs of infection. Pain: May take [id number] Tylenol as needed for discomfort. Host factors: Basal cell carcinoma left lower extremity, edema. ? I answered all the patient's questions.? To return to the wound healing center in 1 week or call sooner if the patient has any questions or concerns.
[2023-05-07 09:26] VITALS: BP 179/69; PULSE 69; TEMP 35.9; BMI 36.3
[2023-05-14 09:34] VITALS: RESP 18; TEMP 35.9; BMI 36.3
--- NOTE | 2023-05-14 09:42 | PCM.WC.PN ---
History of Present Illness Date of Service: 05/14/23 Chief Complaint: Left medial lower extremity ulceration History of Wound: Patient is a 67-year-old female with past medical history of basal cell carcinoma excised 02/04/2023 of the medial malleolus of the left lower extremity, HTN, obesity, knee replacement, and aortic valve insufficiency with murmur, SOB on exertion, and s/p double vessel coronary artery bypass. She states that she was sent by her primary care Dr. Bhavik Barker for evaluation of a nodular and infiltrative basal cell carcinoma in which she saw Dr. Lisa Pryor MD and underwent Mohs excision of the cancer site. Preoperative size of the lesion was noted to be 1.5 cm x 0.8 cm at the left distal pretibial region with final excised the defect size of 1.8 cm x 1.0 cm. She underwent local wound care in office however distance became a factor and she would like to continue to follow-up locally at the wound care center at [facility]. She states following a few days after the procedure she was on the treadmill and did have some swelling of the lower extremity site to which she feels may have worsened the wound. States she will continue to follow with dermatology for continued monitoring/follow-up. She currently denies any N/V/F/chills. Denies further complaints. Subjective Subjective This is a 67-year-old female who presents to the wound care center today for follow-up of left medial ankle ulceration s/p Mohs excision of basal cell carcinoma.? She had been changing outer dressings as needed and has left the graft in place.? She states she believes it is continuing to improve. Denies any constitutional symptoms today.? Denies further complaints today. Objective Data Objective Data Vital Signs: Vital Signs Temp Pulse Resp BP 96.7 F L 69 18 179/69 H 05/07/23 09:26 05/07/23 09:26 04/30/23 09:24 05/07/23 09:26 Weight: 102.058 kg Body Mass Index (BMI) 36.3 Physical Exam Const alert, oriented x3 and no apparent distress General Appearance: cooperative HEENT normocephalic Eyes General Eye: normal appearance of both eyes Neck General: normal visual inspection Lymph Lymphatic: no lymphadenopathy noted and no lymphedema noted Resp normal respiratory effort Cardio regular rate and regular rhythm Extremity normal capillary refill, no joint enlargement, no calf tenderness and no pedal edema Extremity Narrative: DP and PT pulses are palpable bilateral.? Capillary fill time adequate to the digits bilaterally.? She is noted to have a vascular malformation with reddish purplish discoloration to the anterior left lower extremity extending proximally to the thigh and up to the hip. Musculoskeletal: Muscle strength 5 of 5 age-appropriate.? Does have second digit hammertoe deformity bilateral, this is flexible.? Decreased range of motion of the first MTPJ without pain or crepitus bilateral and ankle joint with the knee in extension without pain and crepitus noted bilaterally. Skin no rashes or lesions noted, skin turgor normal and no jaundice Wound Narrative: Ulceration to the anterior aspect of the medial malleolus of the left lower extremity s/p Mohs excision of nodular infiltrative basal cell carcinoma.? Ulcerative site demonstrates mixed fibrogranular tissue with well-defined borders and atrophic wound margin.? No purulent drainage, no malodor, no erythema, no visible abscess formation, no palpable fluctuance/bogginess, no lymphangitis. Neuro moves all extremities Debridement Note Debridement Note Wound debrided: Left lower extremity Laterality: Left Wound Grade/Stage: Moyer stage I Type of Debridement: Selective debridement Anesthesia Used: 5% Lidocaine Gel Depth: Down to and including healthy tissue and in the subcutaneous layer Percentage of wound debrided: 100 Instrument Used: 5mm curette Tissue Removed: Fibrous, devitalized subcutaneous, biofilm, slough Severity: Fat Layer Exposed Amount of bleeding with debridement: Mild Bleeding Controlled with: Compression and gauze Patient tolerated procedure: Patient tolerated procedure well Post-Debridement Measurements and Additional Note: Post-Debridement Measurements/Treatment - Nurse 1 - General Ulcer Assessment Start: 04/30/23 09:24 Freq: Status: Active Protocol: [email or web address] Activity Type Activity Date Activity User E-sign Co-sign Detail Recorded Client Recorded Date Recorded By Document 04/30/23 09:24 JANIE [id number] 04/30/23 09:40 JANIE Document 05/07/23 09:26 DONNIE [id number] 05/07/23 09:28 AK 04/30/23 05/07/23 09:24 09:26 - Today's Visit Information Type of service Follow-up Visit Follow-up Visit (Physician/BUSINESS COORDINATOR (Physician/BUSINESS COORDINATOR ) ) Arrival Mode Ambulatory Ambulatory Patient Identification Verified (Name & Yes Yes ) Patient Requires Transmission-Based No No Precautions Height and Weight Body Mass Index (BMI) 36.3 36.3 BMI Classification Obese Obese Vital Signs Temperature (97.8 F-99.1 F) 96.8 F L 96.7 F L Temperature Source Temporal Temporal Pulse Rate (60-100) 75 69 Pulse Location Monitor Monitor Respiratory Rate (12-18) 18 Blood Pressure (90/60-120/80) 193/89 H 179/69 H Blood Pressure Mean (mm Hg) 123 105 Source Monitor Monitor Position Semi-Fowlers Blood Pressure Location Left Arm History Since Last Visit- (Skip if this is Patient's initial visit) Have you changed medications since your No No last visit? Any new allergies or adverse reactions No No Had a fall/change in ADL's that may No No increase risk of falls Signs or symptoms of abuse and/or No No neglect since last visit Have you been in the hospital since your No No last visit? Has dressing in place as prescribed Yes Yes Has compression in place as prescribed Yes Yes Has offloadiing in place as prescribed N/A N/A Experienced any changes in pain level or No No management Left Footwear Regular Shoe Regular Shoe Right Footwear Regular Shoe Regular Shoe Pain Scale: 0-10 Numeric Is Patient Pain Free? Yes Yes - Nurse 1 - General Ulcer Measurement Start: 04/30/23 09:24 Freq: Status: Active Protocol: Activity Type Activity Date Activity User E-sign Co-sign Detail Recorded Client Recorded Date Recorded By Document 04/30/23 09:24 [id number] 04/30/23 09:40 Document 05/07/23 09:26 AK [id number] 05/07/23 09:28 AK 04/30/23 05/07/23 09:24 09:26 Wound Center Nurse 1 #1 L medial ankle -Combined with other wound No No -Current Size (cm) - Length 1.6 1.5 -Current Size (cm) - Width 1.5 1.1 -Current Size (cm) - Depth 0.4 0.3 -Total Square Cm 2.40 1.65 -Photo Taken Yes Yes -Epithelialization Small 1-33% -Tunneling No No -Undermining/Tunneling No No -Circular Undermining No No -Change in Wound Grade/Stage No -Exudate Amt Medium Medium -Exudate Type Serosanguineous Serosanguineous -Wound Margin Flat & Intact Distinct, Outline Attached -Granulation Amt Medium (34-66%) Medium (34-66%) -Granulation Quality Red [place] -Slough/Fibrin Yes Yes -Necrosis Amt Small (1-33%) Medium (34-66%) -Necrotic Tissue Type Adherent Slough Adherent Slough -Structure Exposed N/A N/A -Texture ([place]-wound Skin Appearance) Assessed No Abnormality, Assessed -Moisture ([place]-wound Skin Appearance) Assessed,Dry/ No Abnormality, Scaly Assessed -Color ([place]-wound Skin Appearance) Assessed Assessed, Hemosiderin Staining -Temperature ([place]-wound Skin No Abnormality No Abnormality Appearance) (Pt Warm) (Pt Warm) -Tenderness on Palpation ([place]-wound No No Skin Appearance) -Ulcer Cleansing Wound Cleanser Soap and Water -Foul Odor after Cleansing No No -Anesthetic Used 5% Lidocaine 5% Lidocaine Gel Gel Lower Limb Edema Present Yes No Left Calf (cm) 37.6 37 Left Ankle (cm) 21.1 21 WC - Nurse 2 - General Ulcer CM Notes Start: 04/30/23 09:24 Freq: Status: Active Protocol: Activity Type Activity Date Activity User E-sign Co-sign Detail Recorded Client Recorded Date Recorded By Document 04/30/23 12:15 PL [id number] 04/30/23 12:17 PL Document 05/07/23 12:36 PL [id number] 05/07/23 12:38 PL 04/30/23 05/07/23 12:15 12:36 Wound Center Nurse 2 #1 L medial ankle -Time 10:21 09:26 -Correct Patient Yes Yes -Correct Side, Site, Position Yes Yes -Correct Procedure Yes Yes -Procedure Performed Yes Yes -Type of Procedure Debridement Debridement -Clinical Debridement Subcutaneous Subcutaneous -Tissue Removed Subcutaneous Subcutaneous -Post Debridement (cm) - Length 1.5 1.4 -Post Debridement (cm) - Width 1.5 1.3 -Post Debridement (cm) - Depth 0.9 0.4 -Total Square (Post) (cm) 2.25 1.82 -Area of Debridement (cm) - Length 1.5 1.4 -Area of Debridement (cm) - Width 1.5 1.3 -Total Square (Area) (cm) 2.25 1.82 -Tunneling No No -Undermining/Tunneling No No -Circular Undermining No No -Wound/Ulcer Outcome Not Healed Not Healed -Ulcer Cleansing Rinsed/ Rinsed/ Irrigated with Irrigated with Saline Saline -Foul Odor after Cleansing No No -Bioengineered Tissue Yes Yes -Type of Bioengineered Tissue Epifix 18mm Epifix 18mm Disc Disc -Expiration Date 01/29/28 01/29/28 -Product Lot Number [id number] -Percent Used 100 100 -Bleeding Controlled with Pressure Pressure -Treatment Response Procedure Procedure Tolerated Well Tolerated Well -Debridement - Subq, 1st 20sq cm No No -Apply Skin Sub - 1st 25 sq cm - Legs 1 1 -Epifix 18mm Disc 3 3 Pain Scale: 0-10 Numeric Is Patient Pain Free? Yes Yes - Nurse 3 - General Ulcer D/C NN Start: 04/30/23 09:24 Freq: Status: Active Protocol: Activity Type Activity Date Activity User E-sign Co-sign Detail Recorded Client Recorded Date Recorded By Document 04/30/23 09:59 AK [id number] 04/30/23 10:00 AK Undo 04/30/23 09:59 AK Adjusting Time [id number] 04/30/23 10:01 AK Document 05/07/23 10:09 AK [id number] 05/07/23 10:10 AK 05/07/23 10:09 Wound Care Center Nurse 3 #1 L medial ankle -Foul Odor after Cleansing No -Negative Pressure Wound Therapy N/A -Primary Dressing Covered/Secured with Dry Gauze & Roll Gauze, Secured with Tape Left -Tubular Bandage Double Layer -Size of Tubigrip Used Size D -Size D ($) 2 -Other single layer but gave extra Pain Scale: 0-10 Numeric Is Patient Pain Free? Yes WC - Visit Discharge Discharge Condition Stable Ambulatory Status Ambulatory Transportation Private Auto Medication Reconcilliation completed & Yes provided to patient/care provider Clinical Summary of Care Provided Yes Assessment/Plan Assessment/Plan (1) Non-pressure chronic ulcer of skin of other sites with muscle involvement without evidence of necrosis: CODE(S): L98.495 - Non-pressure chronic ulcer of skin of other sites with muscle involvement without evidence of necrosis (2) Basal cell carcinoma (BCC) of left lower extremity: CODE(S): C44.719 - Basal cell carcinoma of skin of left lower limb, including hip (3) HTN (hypertension): CODE(S): I10 - Essential (primary) hypertension (4) BMI 40.0-44.9, adult: CODE(S): Z68.41 - Body mass index [BMI] 40.0-44.9, adult (5) Non-pressure chronic ulcer of left calf with fat layer exposed: CODE(S): L97.222 - Non-pressure chronic ulcer 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 Lisa Pryor MD. cancerous lesion measured 1.5 cm x 0.8 cm preexcision; post excision final defect size measured 1.8 cm x 1.0 cm.? She continues to follow with dermatology. Ulcerative site underwent debridement as noted in the clinical panel above.? Ulceration measures 1.0 cm x 1.1 cm x 0.2 cm.? No signs of infection.? Healthy bleeding granular tissue noted postdebridement.? EpiFix graft #4 applied to the ulcerative bed today and dressed with Adaptic touch, Steri-Strips and dry sterile dressing.? She is to change the outer dressing as needed.? She was instructed to not get the dressings wet.? Tubigrip stocking applied to lower extremity to aid in edema control.? She was instructed to continue to wear the Tubigrip daily and elevate legs at all times of rest to aid in edema control. Ulceration is noted to have some improvement in reduction of size versus previous visit. Discussed adequate protein intake to aid in her wound healing.? She may also take Robles supplementation to aid wound healing. Discussed signs and symptoms of infection to observe for.? She was instructed that if she notices any redness about the ulcer site that moves up the leg, or if she has any purulent drainage, or increasing foul odor, or if she experiences fever greater than 101 degree, nausea, vomiting, chills that these are signs of a progressing infection and she needs to report to the ED.? She voices understanding of this today. The following work up and care recommendations were made: Dressing: EpiFix, Adaptic touch, Steri-Strips and dry sterile dressing.? Change outer dressings as needed Wash: Do not get wet Tissue growth optimization: EpiFix Offload: Elevation of lower extremity at all times of rest.? To ensure nothing rubs against the ulcerative site on the inside of the left leg. Vascular: DP and PT pulses palpable.? Adequate capillary fill time.? I do not feel her vascular status is impeding her healing. Edema: Elevation of the lower extremities at all times rest.? Once ulcerative site healed plan for compression stockings to aid in edema control. Infection: No signs of infection. Pain: May take [id number] Tylenol as needed for discomfort. Host factors: Basal cell carcinoma left lower extremity, edema. ? I answered all the patient's questions.? To return to the wound healing center in 1 week or call sooner if the patient has any questions or concerns.
--- NOTE | 2023-05-21 09:57 | PCM.WC.PN ---
History of Present Illness Date of Service: 05/21/23 Chief Complaint: Left medial lower extremity ulceration History of Wound: Patient is a 67-year-old female with past medical history of basal cell carcinoma excised 02/04/2023 of the medial malleolus of the left lower extremity, HTN, obesity, knee replacement, and aortic valve insufficiency with murmur, SOB on exertion, and s/p double vessel coronary artery bypass. She states that she was sent by her primary care Dr. Bhavik Barker for evaluation of a nodular and infiltrative basal cell carcinoma in which she saw Dr. Lisa Pryor MD and underwent Mohs excision of the cancer site. Preoperative size of the lesion was noted to be 1.5 cm x 0.8 cm at the left distal pretibial region with final excised the defect size of 1.8 cm x 1.0 cm. She underwent local wound care in office however distance became a factor and she would like to continue to follow-up locally at the wound care center at [facility]. She states following a few days after the procedure she was on the treadmill and did have some swelling of the lower extremity site to which she feels may have worsened the wound. States she will continue to follow with dermatology for continued monitoring/follow-up. She currently denies any N/V/F/chills. Denies further complaints. Subjective Subjective This is a 67-year-old female who presents to the wound care center today for follow-up of left medial ankle ulceration s/p Mohs excision of basal cell carcinoma.? She had been changing outer dressings as needed and has left the graft in place.? She states she believes there is continued improvement. Denies any constitutional symptoms today.? Denies further complaints today. Objective Data Objective Data Vital Signs: Vital Signs Temp Pulse Resp BP O2 Del Method 96.6 F L 69 18 179/69 H Room Air 05/14/23 09:34 05/07/23 09:26 05/14/23 09:34 05/07/23 09:26 05/14/23 09:34 Oxygen Delivery Method Room Air Weight: 102.058 kg Body Mass Index (BMI) 36.3 Physical Exam Const alert, oriented x3 and no apparent distress General Appearance: cooperative HEENT normocephalic Eyes General Eye: normal appearance of both eyes Neck General: normal visual inspection Lymph Lymphatic: no lymphadenopathy noted and no lymphedema noted Resp normal respiratory effort Cardio regular rate and regular rhythm Extremity normal capillary refill, no joint enlargement, no calf tenderness and no pedal edema Extremity Narrative: DP and PT pulses are palpable bilateral.? Capillary fill time adequate to the digits bilaterally.? She is noted to have a vascular malformation with reddish purplish discoloration to the anterior left lower extremity extending proximally to the thigh and up to the hip. Musculoskeletal: Muscle strength 5 of 5 age-appropriate.? Does have second digit hammertoe deformity bilateral, this is flexible.? Decreased range of motion of the first MTPJ without pain or crepitus bilateral and ankle joint with the knee in extension without pain and crepitus noted bilaterally. Skin no rashes or lesions noted, skin turgor normal and no jaundice Wound Narrative: Ulceration to the anterior aspect of the medial malleolus of the left lower extremity s/p Mohs excision of nodular infiltrative basal cell carcinoma.? Ulcerative site demonstrates mixed fibrogranular tissue with well-defined borders and atrophic wound margin.? No purulent drainage, no malodor, no erythema, no visible abscess formation, no palpable fluctuance/bogginess, no lymphangitis. Neuro moves all extremities Debridement Note Debridement Note Wound debrided: Left lower extremity Laterality: Left Wound Grade/Stage: Moyer stage I Type of Debridement: Excisional debridement Anesthesia Used: 5% Lidocaine Gel Depth: Down to and including healthy tissue and in the subcutaneous layer Percentage of wound debrided: 100 Instrument Used: 5mm curette Tissue Removed: Fibrous, devitalized subcutaneous, biofilm, slough Severity: Fat Layer Exposed Amount of bleeding with debridement: Mild Bleeding Controlled with: Compression and gauze Patient tolerated procedure: Patient tolerated procedure well Post-Debridement Measurements and Additional Note: Post-Debridement Measurements/Treatment SAKSHI - Nurse 1 - General Ulcer Assessment Start: 04/30/23 09:24 Freq: Status: Active Protocol: ELLEN Activity Type Activity Date Activity User E-sign Co-sign Detail Recorded Client Recorded Date Recorded By Document 04/30/23 09:24 JF [id number] 04/30/23 09:40 JF Document 05/07/23 09:26 AK [id number] 05/07/23 09:28 AK Document 05/14/23 09:34 KW [id number] 05/14/23 09:46 KW 04/30/23 05/07/23 05/14/23 09:24 09:26 09:34 - Today's Visit Information Type of service Follow-up Visit Follow-up Visit Follow-up Visit (Physician/PUBLIC POLICY MEDIATOR (Physician/PUBLIC POLICY MEDIATOR (Physician/PUBLIC POLICY MEDIATOR ) ) ) Arrival Mode Ambulatory Ambulatory Ambulatory Patient Identification Verified (Name & Yes Yes Yes ) Patient Requires Transmission-Based No No No Precautions Safety Precautions NA Height and Weight Body Mass Index (BMI) 36.3 36.3 36.3 BMI Classification Obese Obese Obese Vital Signs Temperature (97.8 F-99.1 F) 96.8 F L 96.7 F L 96.6 F L Temperature Source Temporal Temporal Temporal Pulse Rate (60-100) 75 69 Pulse Location Monitor Monitor Monitor Respiratory Rate (12-18) 18 18 Respiratory rate source Observation Oxygen Delivery Method Room Air Blood Pressure (90/60-120/80) 193/89 H 179/69 H Blood Pressure Mean (mm Hg) 123 105 Source Monitor Monitor Monitor Position Semi-Fowlers Sitting Blood Pressure Location Left Arm Left Arm History Since Last Visit- (Skip if this is Patient's initial visit) Have you changed medications since your No No No last visit? Any new allergies or adverse reactions No No No Had a fall/change in ADL's that may No No No increase risk of falls Signs or symptoms of abuse and/or No No No neglect since last visit Have you been in the hospital since your No No No last visit? Has dressing in place as prescribed Yes Yes Has compression in place as prescribed Yes Yes Has offloadiing in place as prescribed N/A N/A Experienced any changes in pain level or No No management Left Footwear Regular Shoe Regular Shoe Regular Shoe Right Footwear Regular Shoe Regular Shoe Regular Shoe Pain Scale: 0-10 Numeric Is Patient Pain Free? Yes Yes Yes - Nurse 1 - General Ulcer Measurement Start: 04/30/23 09:24 Freq: Status: Active Protocol: Activity Type Activity Date Activity User E-sign Co-sign Detail Recorded Client Recorded Date Recorded By Document 04/30/23 09:24 JANIE [id number] 04/30/23 09:40 JANIE Document 05/07/23 09:26 AK [id number] 05/07/23 09:28 AK Document 05/14/23 09:34 [id number] 05/14/23 09:46 KW 04/30/23 05/07/23 05/14/23 09:24 09:26 09:34 Wound Center Nurse 1 #1 L medial ankle -Combined with other wound No No -Current Size (cm) - Length 1.6 1.5 -Current Size (cm) - Width 1.5 1.1 -Current Size (cm) - Depth 0.4 0.3 -Total Square Cm 2.40 1.65 -Photo Taken Yes Yes -Epithelialization Small 1-33% -Tunneling No No -Undermining/Tunneling No No -Circular Undermining No No -Change in Wound Grade/Stage No -Exudate Amt Medium Medium -Exudate Type Serosanguineous Serosanguineous -Wound Margin Flat & Intact Distinct, Distinct, Outline Outline Attached Attached -Granulation Amt Medium (34-66%) Medium (34-66%) -Granulation Quality Red Viola -Slough/Fibrin Yes Yes -Necrosis Amt Small (1-33%) Medium (34-66%) -Necrotic Tissue Type Adherent Slough Adherent Slough -Structure Exposed N/A N/A -Texture (Nighat-wound Skin Appearance) Assessed No Abnormality, Assessed Assessed -Moisture (Nighat-wound Skin Appearance) Assessed,Dry/ No Abnormality, Scaly Assessed -Color (Nighat-wound Skin Appearance) Assessed Assessed, Assessed Hemosiderin Staining -Temperature (Nighat-wound Skin No Abnormality No Abnormality Appearance) (Pt Warm) (Pt Warm) -Tenderness on Palpation (Nighat-wound No No Skin Appearance) -Ulcer Cleansing Wound Cleanser Soap and Water -Foul Odor after Cleansing No No -Anesthetic Used 5% Lidocaine 5% Lidocaine 5% Lidocaine Gel Gel Gel Lower Limb Edema Present Yes No Left Calf (cm) 37.6 37 Left Ankle (cm) 21.1 21 WC - Nurse 2 - General Ulcer CM Notes Start: 04/30/23 09:24 Freq: Status: Active Protocol: Activity Type Activity Date Activity User E-sign Co-sign Detail Recorded Client Recorded Date Recorded By Document 04/30/23 12:15 PL [id number] 04/30/23 12:17 PL Document 05/07/23 12:36 PL [id number] 05/07/23 12:38 PL Document 05/14/23 12:06 PL [id number] 05/14/23 12:08 PL Edit Result 05/14/23 12:06 PL (1) [id number] 05/15/23 12:47 PL (1) #1 L medial ankle - Debridement - Subq, 1st 20sq cm Yes => No - Apply Skin Sub - 1st 25 sq cm - Legs => 1 04/30/23 05/07/23 05/14/23 12:15 12:36 12:06 Wound Center Nurse 2 #1 L medial ankle -Time 10:21 09:26 09:56 -Correct Patient Yes Yes Yes -Correct Side, Site, Position Yes Yes Yes -Correct Procedure Yes Yes Yes -Procedure Performed Yes Yes Yes -Type of Procedure Debridement Debridement Debridement -Clinical Debridement Subcutaneous Subcutaneous Subcutaneous -Tissue Removed Subcutaneous Subcutaneous Subcutaneous -Post Debridement (cm) - Length 1.5 1.4 1.1 -Post Debridement (cm) - Width 1.5 1.3 1.0 -Post Debridement (cm) - Depth 0.9 0.4 0.2 -Total Square (Post) (cm) 2.25 1.82 1.10 -Area of Debridement (cm) - Length 1.5 1.4 1.1 -Area of Debridement (cm) - Width 1.5 1.3 1.0 -Total Square (Area) (cm) 2.25 1.82 1.10 -Tunneling No No No -Undermining/Tunneling No No No -Circular Undermining No No No -Wound/Ulcer Outcome Not Healed Not Healed Not Healed -Ulcer Cleansing Rinsed/ Rinsed/ Rinsed/ Irrigated with Irrigated with Irrigated with Saline Saline Saline -Foul Odor after Cleansing No No No -Bioengineered Tissue Yes Yes Yes -Type of Bioengineered Tissue Epifix 18mm Epifix 18mm Epifix 18mm Disc Disc Disc -Expiration Date 01/29/28 01/29/28 02/29/28 -Product Lot Number [id number] -Percent Used 100 100 100 -Bleeding Controlled with Pressure Pressure Pressure -Treatment Response Procedure Procedure Procedure Tolerated Well Tolerated Well Tolerated Well -Debridement - Subq, 1st 20sq cm No No No -Apply Skin Sub - 1st 25 sq cm - Legs 1 1 1 -Epifix 18mm Disc 3 3 3 Pain Scale: 0-10 Numeric Is Patient Pain Free? Yes Yes Yes WC - Nurse 3 - General Ulcer D/C NN Start: 04/30/23 09:24 Freq: Status: Active Protocol: Activity Type Activity Date Activity User E-sign Co-sign Detail Recorded Client Recorded Date Recorded By Document 04/30/23 09:59 AK [id number] 04/30/23 10:00 AK Undo 04/30/23 09:59 AK Adjusting Time [id number] 04/30/23 10:01 AK Document 05/07/23 10:09 AK [id number] 05/07/23 10:10 AK Document 05/14/23 12:06 PL [id number] 05/14/23 12:08 PL 05/07/23 05/14/23 10:09 12:06 Wound Care Center Nurse 3 #1 L medial ankle -Ulcer Cleansing Not Cleansed -Foul Odor after Cleansing No -Negative Pressure Wound Therapy N/A -Primary Dressing Covered/Secured with Dry Gauze & Dry Gauze & Roll Gauze, Roll Gauze, Secured with Secured with Tape Tape Left -Tubular Bandage Double Layer -Size of Tubigrip Used Size D -Size D ($) 2 -Other single layer but gave extra Pain Scale: 0-10 Numeric Is Patient Pain Free? 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 involvement without evidence of necrosis: CODE(S): L98.495 - Non-pressure chronic ulcer of skin of other sites with muscle involvement without evidence of necrosis (2) Basal cell carcinoma (BCC) of left lower extremity: CODE(S): C44.719 - Basal cell carcinoma of skin of left lower limb, including hip (3) HTN (hypertension): CODE(S): I10 - Essential (primary) hypertension (4) BMI 40.0-44.9, adult: CODE(S): Z68.41 - Body mass index [BMI] 40.0-44.9, adult (5) Non-pressure chronic ulcer of left calf with fat layer exposed: CODE(S): L97.222 - Non-pressure chronic ulcer 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 Lisa Pryor MD. cancerous lesion measured 1.5 cm x 0.8 cm preexcision; post excision final defect size measured 1.8 cm x 1.0 cm.? She continues to follow with dermatology. Ulcerative site underwent debridement as noted in the clinical panel above.? Ulceration measures 0.9 cm x 1.0 cm x 0.1 cm.? No signs of infection.? Healthy bleeding granular tissue noted postdebridement.? EpiFix graft #5 applied to the ulcerative bed today and dressed with Adaptic touch, Steri-Strips and dry sterile dressing.? She is to change the outer dressing as needed.? She was instructed to not get the dressings wet.? Tubigrip stocking applied to lower extremity to aid in edema control.? She was instructed to continue to wear the Tubigrip daily and elevate legs at all times of rest to aid in edema control. Ulceration is noted to have continued improvement in reduction of size versus previous visit. Discussed adequate protein intake to aid in her wound healing.? She may also take Robles supplementation to aid wound healing. Discussed signs and symptoms of infection to observe for.? She was instructed that if she notices any redness about the ulcer site that moves up the leg, or if she has any purulent drainage, or increasing foul odor, or if she experiences fever greater than 101 degree, nausea, vomiting, chills that these are signs of a progressing infection and she needs to report to the ED.? She voices understanding of this today. The following work up and care recommendations were made: Dressing: EpiFix, Adaptic touch, Steri-Strips and dry sterile dressing.? Change outer dressings as needed Wash: Do not get wet Tissue growth optimization: EpiFix Offload: Elevation of lower extremity at all times of rest.? To ensure nothing rubs against the ulcerative site on the inside of the left leg. Vascular: DP and PT pulses palpable.? Adequate capillary fill time.? I do not feel her vascular status is impeding her healing. Edema: Elevation of the lower extremities at all times rest.? Once ulcerative site healed plan for compression stockings to aid in edema control. Infection: No signs of infection. Pain: May take [id number] Tylenol as needed for discomfort. Host factors: Basal cell carcinoma left lower extremity, edema. ? I answered all the patient's questions.? To return to the wound healing center in 1 week or call sooner if the patient has any questions or concerns.
[2023-05-21 11:54] VITALS: BP 142/67; PULSE 67; TEMP 35.9; BMI 36.3
[2023-05-28 09:48] VITALS: BP 186/76; PULSE 78; RESP 18; TEMP 35.8; BMI 36.3
--- NOTE | 2023-05-28 09:52 | PCM.WC.PN ---
History of Present Illness Date of Service: 05/28/23 Chief Complaint: Left medial lower extremity ulceration History of Wound: Patient is a 67-year-old female with past medical history of basal cell carcinoma excised 02/04/2023 of the medial malleolus of the left lower extremity, HTN, obesity, knee replacement, and aortic valve insufficiency with murmur, SOB on exertion, and s/p double vessel coronary artery bypass. She states that she was sent by her primary care Dr. Bhavik Barker for evaluation of a nodular and infiltrative basal cell carcinoma in which she saw Dr. Lisa Pryor MD and underwent Mohs excision of the cancer site. Preoperative size of the lesion was noted to be 1.5 cm x 0.8 cm at the left distal pretibial region with final excised the defect size of 1.8 cm x 1.0 cm. She underwent local wound care in office however distance became a factor and she would like to continue to follow-up locally at the wound care center at [facility]. She states following a few days after the procedure she was on the treadmill and did have some swelling of the lower extremity site to which she feels may have worsened the wound. States she will continue to follow with dermatology for continued monitoring/follow-up. She currently denies any N/V/F/chills. Denies further complaints. Subjective Subjective This is a 67-year-old female who presents to the wound care center today for follow-up of left medial ankle ulceration s/p Mohs excision of basal cell carcinoma.? She had been changing outer dressings as needed and has left the graft in place.? She states she believes there is continued improvement. States she believes the nerves are regenerating in this area as she can feel more about the wound. Denies any constitutional symptoms today.? Denies further complaints today. Objective Data Objective Data Vital Signs: Vital Signs Temp Pulse Resp BP O2 Del Method 96.7 F L 67 18 142/67 H Room Air 05/21/23 11:54 05/21/23 11:54 05/14/23 09:34 05/21/23 11:54 05/14/23 09:34 Oxygen Delivery Method Room Air Weight: 102.058 kg Body Mass Index (BMI) 36.3 Physical Exam Const alert, oriented x3 and no apparent distress General Appearance: cooperative HEENT normocephalic Eyes General Eye: normal appearance of both eyes Neck General: normal visual inspection Lymph Lymphatic: no lymphadenopathy noted and no lymphedema noted Resp normal respiratory effort Cardio regular rate and regular rhythm Extremity normal capillary refill, no joint enlargement, no calf tenderness and no pedal edema Extremity Narrative: DP and PT pulses are palpable bilateral.? Capillary fill time adequate to the digits bilaterally.? She is noted to have a vascular malformation with reddish purplish discoloration to the anterior left lower extremity extending proximally to the thigh and up to the hip. Musculoskeletal: Muscle strength 5 of 5 age-appropriate.? Does have second digit hammertoe deformity bilateral, this is flexible.? Decreased range of motion of the first MTPJ without pain or crepitus bilateral and ankle joint with the knee in extension without pain and crepitus noted bilaterally. Skin no rashes or lesions noted, skin turgor normal and no jaundice Wound Narrative: Ulceration to the anterior aspect of the medial malleolus of the left lower extremity s/p Mohs excision of nodular infiltrative basal cell carcinoma.? Ulcerative site demonstrates mixed fibrogranular tissue with well-defined borders and atrophic wound margin.? No purulent drainage, no malodor, no erythema, no visible abscess formation, no palpable fluctuance/bogginess, no lymphangitis. Neuro moves all extremities Debridement Note Debridement Note Wound debrided: Left lower extremity Laterality: Left Wound Grade/Stage: Moyer stage I Type of Debridement: Excisional debridement Anesthesia Used: 5% Lidocaine Gel Depth: Down to and including healthy tissue and in the subcutaneous layer Percentage of wound debrided: 100 Instrument Used: 5mm curette Tissue Removed: Fibrous, devitalized subcutaneous, biofilm, slough Severity: Fat Layer Exposed Amount of bleeding with debridement: Mild Bleeding Controlled with: Compression and gauze Patient tolerated procedure: Patient tolerated procedure well Post-Debridement Measurements and Additional Note: Post-Debridement Measurements/Treatment SAKSHI - Nurse 1 - General Ulcer Assessment Start: 04/30/23 09:24 Freq: Status: Active Protocol: AUDELIAEXT Activity Type Activity Date Activity User E-sign Co-sign Detail Recorded Client Recorded Date Recorded By Document 04/30/23 09:24 JANIE [id number] 04/30/23 09:40 JANIE Document 05/07/23 09:26 AK [id number] 05/07/23 09:28 AK Document 05/14/23 09:34 [id number] 05/14/23 09:46 KW Document 05/21/23 11:54 CT [id number] 05/21/23 11:56 CT 04/30/23 05/07/23 05/14/23 09:24 09:26 09:34 - Today's Visit Information Type of service Follow-up Visit Follow-up Visit Follow-up Visit (Physician/MONEY COUNTER (Physician/MONEY COUNTER (Physician/MONEY COUNTER ) ) ) Arrival Mode Ambulatory Ambulatory Ambulatory Patient Identification Verified (Name & Yes Yes Yes ) Patient Requires Transmission-Based No No No Precautions Safety Precautions NA Height and Weight Body Mass Index (BMI) 36.3 36.3 36.3 BMI Classification Obese Obese Obese Vital Signs Temperature (97.8 F-99.1 F) 96.8 F L 96.7 F L 96.6 F L Temperature Source Temporal Temporal Temporal Pulse Rate (60-100) 75 69 Pulse Location Monitor Monitor Monitor Respiratory Rate (12-18) 18 18 Respiratory rate source Observation Oxygen Delivery Method Room Air Blood Pressure (90/60-120/80) 193/89 H 179/69 H Blood Pressure Mean (mm Hg) 123 105 Source Monitor Monitor Monitor Position Semi-Fowlers Sitting Blood Pressure Location Left Arm Left Arm History Since Last Visit- (Skip if this is Patient's initial visit) Have you changed medications since your No No No last visit? Any new allergies or adverse reactions No No No Had a fall/change in ADL's that may No No No increase risk of falls Signs or symptoms of abuse and/or No No No neglect since last visit Have you been in the hospital since your No No No last visit? Has dressing in place as prescribed Yes Yes Has compression in place as prescribed Yes Yes Has offloadiing in place as prescribed N/A N/A Experienced any changes in pain level or No No management Left Footwear Regular Shoe Regular Shoe Regular Shoe Right Footwear Regular Shoe Regular Shoe Regular Shoe Pain Scale: 0-10 Numeric Is Patient Pain Free? Yes Yes Yes 05/21/23 11:54 - Today's Visit Information Type of service Follow-up Visit (Physician/MONEY COUNTER ) Arrival Mode Ambulatory Patient Identification Verified (Name & No ) Patient Requires Transmission-Based No Precautions Safety Precautions NA Height and Weight Body Mass Index (BMI) 36.3 BMI Classification Obese Vital Signs Temperature (97.8 F-99.1 F) 96.7 F L Temperature Source Temporal Pulse Rate (60-100) 67 Pulse Location Monitor Respiratory Rate (12-18) Respiratory rate source Oxygen Delivery Method Blood Pressure (90/60-120/80) 142/67 H Blood Pressure Mean (mm Hg) 92 Source Monitor Position Blood Pressure Location History Since Last Visit- (Skip if this is Patient's initial visit) Have you changed medications since your No last visit? Any new allergies or adverse reactions No Had a fall/change in ADL's that may No increase risk of falls Signs or symptoms of abuse and/or No neglect since last visit Have you been in the hospital since your No last visit? Has dressing in place as prescribed Yes Has compression in place as prescribed N/A Has offloadiing in place as prescribed N/A Experienced any changes in pain level or No management Left Footwear Regular Shoe Right Footwear Regular Shoe Pain Scale: 0-10 Numeric Is Patient Pain Free? Yes WC - Nurse 1 - General Ulcer Measurement Start: 04/30/23 09:24 Freq: Status: Active Protocol: Activity Type Activity Date Activity User E-sign Co-sign Detail Recorded Client Recorded Date Recorded By Document 04/30/23 09:24 [id number] 04/30/23 09:40 Document 05/07/23 09:26 AK [id number] 05/07/23 09:28 AK Document 05/14/23 09:34 KW [id number] 05/14/23 09:46 KW Document 05/21/23 11:54 AK [id number] 05/21/23 11:56 AK 04/30/23 05/07/23 05/14/23 09:24 09:26 09:34 Wound Center Nurse 1 #1 L medial ankle -Combined with other wound No No -Current Size (cm) - Length 1.6 1.5 -Current Size (cm) - Width 1.5 1.1 -Current Size (cm) - Depth 0.4 0.3 -Total Square Cm 2.40 1.65 -Photo Taken Yes Yes -Epithelialization Small 1-33% -Tunneling No No -Undermining/Tunneling No No -Circular Undermining No No -Change in Wound Grade/Stage No -Exudate Amt Medium Medium -Exudate Type Serosanguineous Serosanguineous -Wound Margin Flat & Intact Distinct, Distinct, Outline Outline Attached Attached -Granulation Amt Medium (34-66%) Medium (34-66%) -Granulation Quality Red [place] -Slough/Fibrin Yes Yes -Necrosis Amt Small (1-33%) Medium (34-66%) -Necrotic Tissue Type Adherent Slough Adherent Slough -Structure Exposed N/A N/A -Texture (Nighat-wound Skin Appearance) Assessed No Abnormality, Assessed Assessed -Moisture (Nighat-wound Skin Appearance) Assessed,Dry/ No Abnormality, Scaly Assessed -Color (Nighat-wound Skin Appearance) Assessed Assessed, Assessed Hemosiderin Staining -Temperature (Nighat-wound Skin No Abnormality No Abnormality Appearance) (Pt Warm) (Pt Warm) -Tenderness on Palpation (Nighat-wound No No Skin Appearance) -Ulcer Cleansing Wound Cleanser Soap and Water -Foul Odor after Cleansing No No -Anesthetic Used 5% Lidocaine 5% Lidocaine 5% Lidocaine Gel Gel Gel Lower Limb Edema Present Yes No Left Calf (cm) 37.6 37 Left Ankle (cm) 21.1 21 05/21/23 11:54 Wound Center Nurse 1 #1 L medial ankle -Combined with other wound No -Current Size (cm) - Length 0.5 -Current Size (cm) - Width 0.4 -Current Size (cm) - Depth 0.2 -Total Square Cm 0.20 -Photo Taken Yes -Epithelialization -Tunneling No -Undermining/Tunneling No -Circular Undermining No -Change in Wound Grade/Stage No -Exudate Amt Small -Exudate Type -Wound Margin Distinct, Outline Attached -Granulation Amt Medium (34-66%) -Granulation Quality [place] -Slough/Fibrin Yes -Necrosis Amt Medium (34-66%) -Necrotic Tissue Type -Structure Exposed N/A -Texture (Nighat-wound Skin Appearance) Assessed, Scarring -Moisture (Nighat-wound Skin Appearance) No Abnormality, Assessed -Color (Nighat-wound Skin Appearance) No Abnormality, Assessed -Temperature (Nighat-wound Skin No Abnormality Appearance) (Pt Warm) -Tenderness on Palpation (Nighat-wound No Skin Appearance) -Ulcer Cleansing Rinsed/ Irrigated with Saline -Foul Odor after Cleansing No -Anesthetic Used 5% Lidocaine Gel Lower Limb Edema Present Left Calf (cm) Left Ankle (cm) WC - Nurse 2 - General Ulcer CM Notes Start: 04/30/23 09:24 Freq: Status: Active Protocol: Activity Type Activity Date Activity User E-sign Co-sign Detail Recorded Client Recorded Date Recorded By Document 04/30/23 12:15 PL [id number] 04/30/23 12:17 PL Document 05/07/23 12:36 PL [id number] 05/07/23 12:38 PL Document 05/14/23 12:06 PL [id number] 05/14/23 12:08 PL Edit Result 05/14/23 12:06 PL (1) [id number] 05/15/23 12:47 PL Document 05/21/23 12:16 PL [id number] 05/21/23 12:17 PL (1) #1 L medial ankle - Debridement - Subq, 1st 20sq cm Yes => No - Apply Skin Sub - 1st 25 sq cm - Legs => 1 04/30/23 05/07/23 05/14/23 12:15 12:36 12:06 Wound Center Nurse 2 #1 L medial ankle -Time 10:21 09:26 09:56 -Correct Patient Yes Yes Yes -Correct Side, Site, Position Yes Yes Yes -Correct Procedure Yes Yes Yes -Procedure Performed Yes Yes Yes -Type of Procedure Debridement Debridement Debridement -Clinical Debridement Subcutaneous Subcutaneous Subcutaneous -Tissue Removed Subcutaneous Subcutaneous Subcutaneous -Post Debridement (cm) - Length 1.5 1.4 1.1 -Post Debridement (cm) - Width 1.5 1.3 1.0 -Post Debridement (cm) - Depth 0.9 0.4 0.2 -Total Square (Post) (cm) 2.25 1.82 1.10 -Area of Debridement (cm) - Length 1.5 1.4 1.1 -Area of Debridement (cm) - Width 1.5 1.3 1.0 -Total Square (Area) (cm) 2.25 1.82 1.10 -Tunneling No No No -Undermining/Tunneling No No No -Circular Undermining No No No -Wound/Ulcer Outcome Not Healed Not Healed Not Healed -Ulcer Cleansing Rinsed/ Rinsed/ Rinsed/ Irrigated with Irrigated with Irrigated with Saline Saline Saline -Foul Odor after Cleansing No No No -Bioengineered Tissue Yes Yes Yes -Type of Bioengineered Tissue Epifix 18mm Epifix 18mm Epifix 18mm Disc Disc Disc -Expiration Date 01/29/28 01/29/28 02/29/28 -Product Lot Number [id number] -Percent Used 100 100 100 -Bleeding Controlled with Pressure Pressure Pressure -Treatment Response Procedure Procedure Procedure Tolerated Well Tolerated Well Tolerated Well -Debridement - Subq, 1st 20sq cm No No No -Apply Skin Sub - 1st 25 sq cm - Legs 1 1 1 -Epifix 18mm Disc 3 3 3 Pain Scale: 0-10 Numeric Is Patient Pain Free? Yes Yes Yes 05/21/23 12:16 Wound Center Nurse 2 #1 L medial ankle -Time 10:13 -Correct Patient Yes -Correct Side, Site, Position Yes -Correct Procedure Yes -Procedure Performed Yes -Type of Procedure Debridement -Clinical Debridement Subcutaneous -Tissue Removed Subcutaneous -Post Debridement (cm) - Length 0.9 -Post Debridement (cm) - Width 1.0 -Post Debridement (cm) - Depth 0.1 -Total Square (Post) (cm) 0.90 -Area of Debridement (cm) - Length 0.9 -Area of Debridement (cm) - Width 1.0 -Total Square (Area) (cm) 0.90 -Tunneling No -Undermining/Tunneling No -Circular Undermining No -Wound/Ulcer Outcome Not Healed -Ulcer Cleansing Rinsed/ Irrigated with Saline -Foul Odor after Cleansing No -Bioengineered Tissue Yes -Type of Bioengineered Tissue Epifix 18mm Disc -Expiration Date 02/29/28 -Product Lot Number [id number] -Percent Used 100 -Bleeding Controlled with Pressure -Treatment Response Procedure Tolerated Well -Debridement - Subq, 1st 20sq cm No -Apply Skin Sub - 1st 25 sq cm - Legs 1 -Epifix 18mm Disc 3 Pain Scale: 0-10 Numeric Is Patient Pain Free? Yes - Nurse 3 - General Ulcer D/C NN Start: 04/30/23 09:24 Freq: Status: Active Protocol: Activity Type Activity Date Activity User E-sign Co-sign Detail Recorded Client Recorded Date Recorded By Document 04/30/23 09:59 DONNIE [id number] 04/30/23 10:00 AK Undo 04/30/23 09:59 AK Adjusting Time [id number] 04/30/23 10:01 AK Document 05/07/23 10:09 AK [id number] 05/07/23 10:10 AK Document 05/14/23 12:06 PL [id number] 05/14/23 12:08 PL Document 05/21/23 10:33 KW [id number] 05/21/23 10:44 KW 05/07/23 05/14/23 05/21/23 10:09 12:06 10:33 Wound Care Center Nurse 3 #1 L medial ankle -Ulcer Cleansing Not Cleansed Rinsed/ Irrigated with Saline -Foul Odor after Cleansing No No -Negative Pressure Wound Therapy N/A -Primary Dressing Covered/Secured with Dry Gauze & Dry Gauze & Dry Gauze & Roll Gauze, Roll Gauze, Roll Gauze, Secured with Secured with Secured with Tape Tape Tape Left -Tubular Bandage Double Layer Single Layer -Size of Tubigrip Used Size D Size D -Size D ($) 2 1 -Other single layer but gave extra Pain Scale: 0-10 Numeric Is Patient Pain Free? Yes Yes Yes WC - Visit Discharge Discharge Condition Stable Stable Ambulatory Status Ambulatory Ambulatory Ambulatory Transportation Private Auto Private Auto Medication Reconcilliation completed & Yes No provided to patient/care provider Clinical Summary of Care Provided Yes No Assessment/Plan Assessment/Plan (1) Non-pressure chronic ulcer of skin of other sites with muscle involvement without evidence of necrosis: CODE(S): L98.495 - Non-pressure chronic ulcer of skin of other sites with muscle involvement without evidence of necrosis (2) Basal cell carcinoma (BCC) of left lower extremity: CODE(S): C44.719 - Basal cell carcinoma of skin of left lower limb, including hip (3) HTN (hypertension): CODE(S): I10 - Essential (primary) hypertension (4) BMI 40.0-44.9, adult: CODE(S): Z68.41 - Body mass index [BMI] 40.0-44.9, adult (5) Non-pressure chronic ulcer of left calf with fat layer exposed: CODE(S): L97.222 - Non-pressure chronic ulcer 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 Lisa Pryor MD. cancerous lesion measured 1.5 cm x 0.8 cm preexcision; post excision final defect size measured 1.8 cm x 1.0 cm.? She continues to follow with dermatology. Ulcerative site underwent debridement as noted in the clinical panel above.? Ulceration measures 0.8 cm x 0.9 cm x 0.1 cm.? No signs of infection.? Healthy bleeding granular tissue noted postdebridement.? EpiFix graft #6 applied to the ulcerative bed today and dressed with Adaptic touch, Steri-Strips and dry sterile dressing.?She is to change the outer dressing as needed.?She was instructed to not get the dressings wet.? Tubigrip stocking applied to lower extremity to aid in edema control.? She was instructed to continue to wear the Tubigrip daily and elevate legs at all times of rest to aid in edema control. Ulceration is noted to have continued improvement in reduction of size versus previous visit. Discussed adequate protein intake to aid in her wound healing.? She may also take Robles supplementation to aid wound healing. Discussed signs and symptoms of infection to observe for.? She was instructed that if she notices any redness about the ulcer site that moves up the leg, or if she has any purulent drainage, or increasing foul odor, or if she experiences fever greater than 101 degree, nausea, vomiting, chills that these are signs of a progressing infection and she needs to report to the ED.? She voices understanding of this today. The following work up and care recommendations were made: Dressing: EpiFix, Adaptic touch, Steri-Strips and dry sterile dressing.? Change outer dressings as needed Wash: Do not get wet Tissue growth optimization: EpiFix Offload: Elevation of lower extremity at all times of rest.? To ensure nothing rubs against the ulcerative site on the inside of the left leg. Vascular: DP and PT pulses palpable.? Adequate capillary fill time.? I do not feel her vascular status is impeding her healing. Edema: Elevation of the lower extremities at all times rest.? Once ulcerative site healed plan for compression stockings to aid in edema control. Infection: No signs of infection. Pain: May take [id number] Tylenol as needed for discomfort. Host factors: Basal cell carcinoma left lower extremity, edema. ? I answered all the patient's questions.? To return to the wound healing center in 1 week or call sooner if the patient has any questions or concerns.
== END 2023-05-29 23:59 | disposition home or self-care (01) ==
LOC: WC 09:45
PROVIDERS: PCP Family Medicine; Referring Provider Dermatology MOHS-Micrographic Surgery; Visit Provider Student in an Organized Health Care Education/Training Program
DX: L98.495 Non-pressure chronic ulcer of skin of other sites with muscle involvement without evidence of necrosis (principal); L97.222 Non-pressure chronic ulcer of left calf with fat layer exposed; Z68.41 Body mass index [BMI] 40.0-44.9, adult; C44.719 Basal cell carcinoma of skin of left lower limb, including hip; I10 Essential (primary) hypertension; E66.9 Obesity, unspecified
CPT/HCPCS: 11042; 15271; Q4186

== ENCOUNTER 2023-06-25 09:45 | Outpatient (RCR) | payer MEDICARE, OTHER, SELFPAY ==
[2023-05-30 01:32] VITALS: BP 186/76; PULSE 78; RESP 18; TEMP 35.8; BMI 36.3
[2023-06-04 10:15] VITALS: BP 132/69; PULSE 69; TEMP 35.7; BMI 36.3
--- NOTE | 2023-06-04 12:55 | PCM.WC.PN ---
History of Present Illness Date of Service: 06/04/23 Chief Complaint: Left medial lower extremity ulceration History of Wound: Patient is a 67-year-old female with past medical history of basal cell carcinoma excised 02/04/2023 of the medial malleolus of the left lower extremity, HTN, obesity, knee replacement, and aortic valve insufficiency with murmur, SOB on exertion, and s/p double vessel coronary artery bypass. She states that she was sent by her primary care Dr. Bhavik Barker for evaluation of a nodular and infiltrative basal cell carcinoma in which she saw Dr. Lisa Pryor MD and underwent Mohs excision of the cancer site. Preoperative size of the lesion was noted to be 1.5 cm x 0.8 cm at the left distal pretibial region with final excised the defect size of 1.8 cm x 1.0 cm. She underwent local wound care in office however distance became a factor and she would like to continue to follow-up locally at the wound care center at [facility]. She states following a few days after the procedure she was on the treadmill and did have some swelling of the lower extremity site to which she feels may have worsened the wound. States she will continue to follow with dermatology for continued monitoring/follow-up. She currently denies any N/V/F/chills. Denies further complaints. Subjective Subjective This is a 67-year-old female who presents to the wound care center today for follow-up of left medial ankle ulceration s/p Mohs excision of basal cell carcinoma.? She had been changing outer dressings as needed and has left the graft in place.?Denies any constitutional symptoms today.? Denies further complaints today. Objective Data Objective Data Vital Signs: Vital Signs Temp Pulse Resp BP 96.2 F L 69 18 132/69 H 06/04/23 10:15 06/04/23 10:15 05/30/23 01:32 06/04/23 10:15 Weight: 102.058 kg Body Mass Index (BMI) 36.3 Physical Exam Const alert, oriented x3 and no apparent distress General Appearance: cooperative HEENT normocephalic Eyes General Eye: normal appearance of both eyes Neck General: normal visual inspection Lymph Lymphatic: no lymphadenopathy noted and no lymphedema noted Resp normal respiratory effort Cardio regular rate and regular rhythm Extremity normal capillary refill, no joint enlargement, no calf tenderness and no pedal edema Extremity Narrative: DP and PT pulses are palpable bilateral.? Capillary fill time adequate to the digits bilaterally.? She is noted to have a vascular malformation with reddish purplish discoloration to the anterior left lower extremity extending proximally to the thigh and up to the hip. Musculoskeletal: Muscle strength 5 of 5 age-appropriate.? Does have second digit hammertoe deformity bilateral, this is flexible.? Decreased range of motion of the first MTPJ without pain or crepitus bilateral and ankle joint with the knee in extension without pain and crepitus noted bilaterally. Skin no rashes or lesions noted, skin turgor normal and no jaundice Wound Narrative: Ulceration to the anterior aspect of the medial malleolus of the left lower extremity s/p Mohs excision of nodular infiltrative basal cell carcinoma.? Ulcerative site demonstrates mixed fibrogranular tissue with well-defined borders and atrophic wound margin.? No purulent drainage, no malodor, no erythema, no visible abscess formation, no palpable fluctuance/bogginess, no lymphangitis. Neuro moves all extremities Debridement Note Debridement Note Wound debrided: Left lower extremity Laterality: Left Wound Grade/Stage: Moyer stage I Type of Debridement: Excisional debridement Anesthesia Used: 5% Lidocaine Gel Depth: Down to and including healthy tissue and in the subcutaneous layer Percentage of wound debrided: 100 Instrument Used: 5mm curette Tissue Removed: Fibrous, devitalized subcutaneous, biofilm, slough Severity: Fat Layer Exposed Amount of bleeding with debridement: Mild Bleeding Controlled with: Compression and gauze Patient tolerated procedure: Patient tolerated procedure well Post-Debridement Measurements and Additional Note: Post-Debridement Measurements/Treatment - Nurse 1 - General Ulcer Assessment Start: 06/04/23 10:15 Freq: Status: Active Protocol: [email or web address].[email or web address] Activity Type Activity Date Activity User E-sign Co-sign Detail Recorded Client Recorded Date Recorded By Document 06/04/23 10:15 DONNIE [id number] 06/04/23 10:17 DONNIE 06/04/23 10:15 - Today's Visit Information Type of service Follow-up Visit (Physician/TELEPHONE AD TAKER ) Arrival Mode Ambulatory Patient Identification Verified (Name & No ) Patient Requires Transmission-Based No Precautions Safety Precautions NA Height and Weight Body Mass Index (BMI) 36.3 BMI Classification Obese Vital Signs Temperature (97.8 F-99.1 F) 96.2 F L Temperature Source Temporal Pulse Rate (60-100) 69 Pulse Location Monitor Blood Pressure (90/60-120/80) 132/69 H Blood Pressure Mean (mm Hg) 90 Source Monitor History Since Last Visit- (Skip if this is Patient's initial visit) Have you changed medications since your No last visit? Any new allergies or adverse reactions No Had a fall/change in ADL's that may No increase risk of falls Signs or symptoms of abuse and/or No neglect since last visit Have you been in the hospital since your No last visit? Has dressing in place as prescribed Yes Has compression in place as prescribed Yes Has offloadiing in place as prescribed N/A Experienced any changes in pain level or No management Left Footwear Regular Shoe Right Footwear Regular Shoe Pain Scale: 0-10 Numeric Is Patient Pain Free? Yes WC - Nurse 1 - General Ulcer Measurement Start: 06/04/23 10:15 Freq: Status: Active Protocol: Activity Type Activity Date Activity User E-sign Co-sign Detail Recorded Client Recorded Date Recorded By Document 06/04/23 10:15 DONNIE [id number] 06/04/23 10:17 DONNIE 06/04/23 10:15 Wound Center Nurse 1 #1 L medial ankle -Combined with other wound No -Current Size (cm) - Length 0.8 -Current Size (cm) - Width 1 -Current Size (cm) - Depth 0.1 -Total Square Cm 0.8 -Date of Last Picture (Recall this 06/04/23 field) -Photo Taken Yes -Tunneling No -Undermining/Tunneling No -Circular Undermining No -Change in Wound Grade/Stage No -Exudate Amt Small -Exudate Type Serosanguineous -Wound Margin Distinct, Outline Attached -Granulation Amt Medium (34-66%) -Granulation Quality [place] -Slough/Fibrin Yes -Necrosis Amt Medium (34-66%) -Necrotic Tissue Type Adherent Slough -Structure Exposed N/A -Texture ([place]-wound Skin Appearance) No Abnormality, Assessed -Moisture ([place]-wound Skin Appearance) No Abnormality, Assessed -Color ([place]-wound Skin Appearance) No Abnormality, Assessed -Temperature ([place]-wound Skin No Abnormality Appearance) (Pt Warm) -Tenderness on Palpation ([place]-wound No Skin Appearance) -Ulcer Cleansing Rinsed/ Irrigated with Saline -Foul Odor after Cleansing No -Anesthetic Used 5% Lidocaine Gel Left Calf (cm) 38 Left Ankle (cm) 21 WC - Nurse 2 - General Ulcer CM Notes Start: 06/04/23 10:15 Freq: Status: Active Protocol: Activity Type Activity Date Activity User E-sign Co-sign Detail Recorded Client Recorded Date Recorded By Document 06/04/23 12:01 PL [id number] 06/04/23 12:02 PL 06/04/23 12:01 Wound Center Nurse 2 #1 L medial ankle -Time 10:26 -Correct Patient Yes -Correct Side, Site, Position Yes -Correct Procedure Yes -Procedure Performed Yes -Type of Procedure Debridement -Clinical Debridement Subcutaneous -Tissue Removed Subcutaneous -Post Debridement (cm) - Length 0.6 -Post Debridement (cm) - Width 0.8 -Post Debridement (cm) - Depth 0.2 -Total Square (Post) (cm) 0.48 -Area of Debridement (cm) - Length 0.6 -Area of Debridement (cm) - Width 0.8 -Total Square (Area) (cm) 0.48 -Tunneling No -Undermining/Tunneling No -Circular Undermining No -Wound/Ulcer Outcome Not Healed -Ulcer Cleansing Rinsed/ Irrigated with Saline -Foul Odor after Cleansing No -Bioengineered Tissue Yes -Type of Bioengineered Tissue Epifix 18mm Disc -Expiration Date 02/29/28 -Product Lot Number [id number] -Percent Used 100 -Bleeding Controlled with Pressure -Treatment Response Procedure Tolerated Well -Debridement - Subq, 1st 20sq cm No -Apply Skin Sub - 1st 25 sq cm - Legs 1 -Epifix 18mm Disc 3 Pain Scale: 0-10 Numeric Is Patient Pain Free? Yes - Nurse 3 - General Ulcer D/C NN Start: 06/04/23 10:15 Freq: Status: Active Protocol: Activity Type Activity Date Activity User E-sign Co-sign Detail Recorded Client Recorded Date Recorded By Document 06/04/23 10:49 ARNOLDO [id number] 06/04/23 10:49 KW 06/04/23 10:49 Wound Care Center Nurse 3 #1 L medial ankle -Ulcer Cleansing Rinsed/ Irrigated with Saline -Primary Dressing Covered/Secured with Dry Gauze & Roll Gauze, Secured with Tape LLE -Tubular Bandage Single Layer -Size of Tubigrip Used Size D -Size D ($) 1 Pain Scale: 0-10 Numeric Is Patient Pain Free? Yes WC - Visit Discharge Discharge Condition Stable Ambulatory Status Ambulatory Transportation Private Auto Medication Reconcilliation completed & No provided to patient/care provider Clinical Summary of Care Provided Yes Assessment/Plan Assessment/Plan (1) Non-pressure chronic ulcer of left calf with fat layer exposed: CODE(S): L97.222 - Non-pressure chronic ulcer of left calf with fat layer exposed (2) Non-pressure chronic ulcer of skin of other sites with muscle involvement without evidence of necrosis: CODE(S): L98.495 - Non-pressure chronic ulcer of skin of other sites with muscle involvement without evidence of necrosis (3) Basal cell carcinoma (BCC) of left lower extremity: CODE(S): C44.719 - Basal cell carcinoma of skin of left lower limb, including hip (4) BMI 40.0-44.9, adult: CODE(S): Z68.41 - Body mass index [BMI] 40.0-44.9, adult (5) HTN (hypertension): CODE(S): I10 - Essential (primary) hypertension PLAN: Plan Patient seen and evaluated She underwent excision of nodular and infiltrative basal cell carcinoma on 02/04/[address] Lisa Pryor MD. cancerous lesion measured 1.5 cm x 0.8 cm preexcision; post excision final defect size measured 1.8 cm x 1.0 cm.? She continues to follow with dermatology. Ulcerative site underwent debridement as noted in the clinical panel above.? Ulceration measures 0.6 cm x 0.8 cm x 0.1 cm.? No signs of infection.? Healthy bleeding granular tissue noted postdebridement.? EpiFix graft #7 applied to the ulcerative bed today and dressed with Adaptic touch, Steri-Strips and dry sterile dressing.?She is to change the outer dressing as needed.?She was instructed to not get the dressings wet.? Tubigrip stocking applied to lower extremity to aid in edema control.? She was instructed to continue to wear the Tubigrip daily and elevate legs at all times of rest to aid in edema control. Ulceration is noted to have continued improvement in reduction of size versus previous visit. Discussed adequate protein intake to aid in her wound healing.? She may also take Robles supplementation to aid wound healing. Discussed signs and symptoms of infection to observe for.? She was instructed that if she notices any redness about the ulcer site that moves up the leg, or if she has any purulent drainage, or increasing foul odor, or if she experiences fever greater than 101 degree, nausea, vomiting, chills that these are signs of a progressing infection and she needs to report to the ED.? She voices understanding of this today. The following work up and care recommendations were made: Dressing: EpiFix, Adaptic touch, Steri-Strips and dry sterile dressing.? Change outer dressings as needed Wash: Do not get wet Tissue growth optimization: EpiFix Offload: Elevation of lower extremity at all times of rest.? To ensure nothing rubs against the ulcerative site on the inside of the left leg. Vascular: DP and PT pulses palpable.? Adequate capillary fill time.? I do not feel her vascular status is impeding her healing. Edema: Elevation of the lower extremities at all times rest.? Once ulcerative site healed plan for compression stockings to aid in edema control. Infection: No signs of infection. Pain: May take [id number] Tylenol as needed for discomfort. Host factors: Basal cell carcinoma left lower extremity, edema. ? I answered all the patient's questions.? To return to the wound healing center in 2 weeks or call sooner if the patient has any questions or concerns.
--- NOTE | 2023-06-18 09:47 | PCM.WC.PN ---
History of Present Illness Date of Service: 06/18/23 Chief Complaint: Left medial lower extremity ulceration History of Wound: Patient is a 67-year-old female with past medical history of basal cell carcinoma excised 02/04/2023 of the medial malleolus of the left lower extremity, HTN, obesity, knee replacement, and aortic valve insufficiency with murmur, SOB on exertion, and s/p double vessel coronary artery bypass. She states that she was sent by her primary care Dr. Bhavik Barker for evaluation of a nodular and infiltrative basal cell carcinoma in which she saw Dr. Lisa Pryor MD and underwent Mohs excision of the cancer site. Preoperative size of the lesion was noted to be 1.5 cm x 0.8 cm at the left distal pretibial region with final excised the defect size of 1.8 cm x 1.0 cm. She underwent local wound care in office however distance became a factor and she would like to continue to follow-up locally at the wound care center at [facility]. She states following a few days after the procedure she was on the treadmill and did have some swelling of the lower extremity site to which she feels may have worsened the wound. States she will continue to follow with dermatology for continued monitoring/follow-up. She currently denies any N/V/F/chills. Denies further complaints. Subjective Subjective This is a 67-year-old female who presents to the wound care center today for follow-up of left medial ankle ulceration s/p Mohs excision of basal cell carcinoma.? She had been changing outer dressings as needed and has left the graft in place. She has noticed the wound is getting smaller with continued graft application. ?Denies any constitutional symptoms today.? Denies further complaints today. Objective Data Objective Data Vital Signs: Vital Signs Temp Pulse Resp BP 96.2 F L 69 18 132/69 H 06/04/23 10:15 06/04/23 10:15 05/30/23 01:32 06/04/23 10:15 Weight: 102.058 kg Body Mass Index (BMI) 36.3 Physical Exam Const alert, oriented x3 and no apparent distress General Appearance: cooperative HEENT normocephalic Eyes General Eye: normal appearance of both eyes Neck General: normal visual inspection Lymph Lymphatic: no lymphadenopathy noted and no lymphedema noted Resp normal respiratory effort Cardio regular rate and regular rhythm Extremity normal capillary refill, no joint enlargement, no calf tenderness and no pedal edema Extremity Narrative: DP and PT pulses are palpable bilateral.? Capillary fill time adequate to the digits bilaterally.? She is noted to have a vascular malformation with reddish purplish discoloration to the anterior left lower extremity extending proximally to the thigh and up to the hip. Musculoskeletal: Muscle strength 5 of 5 age-appropriate.? Does have second digit hammertoe deformity bilateral, this is flexible.? Decreased range of motion of the first MTPJ without pain or crepitus bilateral and ankle joint with the knee in extension without pain and crepitus noted bilaterally. Skin no rashes or lesions noted, skin turgor normal and no jaundice Wound Narrative: Ulceration to the anterior aspect of the medial malleolus of the left lower extremity s/p Mohs excision of nodular infiltrative basal cell carcinoma.? Ulcerative site demonstrates mixed fibrogranular tissue with well-defined borders and atrophic wound margin.? No purulent drainage, no malodor, no erythema, no visible abscess formation, no palpable fluctuance/bogginess, no lymphangitis. Neuro moves all extremities Debridement Note Debridement Note Wound debrided: Left lower extremity Laterality: Left Wound Grade/Stage: Moyer stage I Type of Debridement: Excisional debridement Anesthesia Used: 5% Lidocaine Gel Depth: Down to and including healthy tissue and in the subcutaneous layer Percentage of wound debrided: 100 Instrument Used: 5mm curette Tissue Removed: Fibrous, devitalized subcutaneous, biofilm, slough Severity: Fat Layer Exposed Amount of bleeding with debridement: Mild Bleeding Controlled with: Compression and gauze Patient tolerated procedure: Patient tolerated procedure well Post-Debridement Measurements and Additional Note: Post-Debridement Measurements/Treatment [facility] Nurse 1 - General Ulcer Assessment Start: 06/04/23 10:15 Freq: Status: Active Protocol: [email or web address] Activity Type Activity Date Activity User E-sign Co-sign Detail Recorded Client Recorded Date Recorded By Document 06/04/23 10:15 DONNIE [id number] 06/04/23 10:17 DONNIE 06/04/23 10:15 - Today's Visit Information Type of service Follow-up Visit (Physician/[employer] ) Arrival Mode Ambulatory Patient Identification Verified (Name & No ) Patient Requires Transmission-Based No Precautions Safety Precautions NA Height and Weight Body Mass Index (BMI) 36.3 BMI Classification Obese Vital Signs Temperature (97.8 F-99.1 F) 96.2 F L Temperature Source Temporal Pulse Rate (60-100) 69 Pulse Location Monitor Blood Pressure (90/60-120/80) 132/69 H Blood Pressure Mean (mm Hg) 90 Source Monitor History Since Last Visit- (Skip if this is Patient's initial visit) Have you changed medications since your No last visit? Any new allergies or adverse reactions No Had a fall/change in ADL's that may No increase risk of falls Signs or symptoms of abuse and/or No neglect since last visit Have you been in the hospital since your No last visit? Has dressing in place as prescribed Yes Has compression in place as prescribed Yes Has offloadiing in place as prescribed N/A Experienced any changes in pain level or No management Left Footwear Regular Shoe Right Footwear Regular Shoe Pain Scale: 0-10 Numeric Is Patient Pain Free? Yes WC - Nurse 1 - General Ulcer Measurement Start: 06/04/23 10:15 Freq: Status: Active Protocol: Activity Type Activity Date Activity User E-sign Co-sign Detail Recorded Client Recorded Date Recorded By Document 06/04/23 10:15 DONNIE [id number] 06/04/23 10:17 DONNIE 06/04/23 10:15 Wound Center Nurse 1 #1 L medial ankle -Combined with other wound No -Current Size (cm) - Length 0.8 -Current Size (cm) - Width 1 -Current Size (cm) - Depth 0.1 -Total Square Cm 0.8 -Date of Last Picture (Recall this 06/04/23 field) -Photo Taken Yes -Tunneling No -Undermining/Tunneling No -Circular Undermining No -Change in Wound Grade/Stage No -Exudate Amt Small -Exudate Type Serosanguineous -Wound Margin Distinct, Outline Attached -Granulation Amt Medium (34-66%) -Granulation Quality Amaya -Slough/Fibrin Yes -Necrosis Amt Medium (34-66%) -Necrotic Tissue Type Adherent Slough -Structure Exposed N/A -Texture (Nighat-wound Skin Appearance) No Abnormality, Assessed -Moisture (Nighat-wound Skin Appearance) No Abnormality, Assessed -Color (Nighat-wound Skin Appearance) No Abnormality, Assessed -Temperature (Nighat-wound Skin No Abnormality Appearance) (Pt Warm) -Tenderness on Palpation (Nighat-wound No Skin Appearance) -Ulcer Cleansing Rinsed/ Irrigated with Saline -Foul Odor after Cleansing No -Anesthetic Used 5% Lidocaine Gel Left Calf (cm) 38 Left Ankle (cm) 21 WC - Nurse 2 - General Ulcer CM Notes Start: 06/04/23 10:15 Freq: Status: Active Protocol: Activity Type Activity Date Activity User E-sign Co-sign Detail Recorded Client Recorded Date Recorded By Document 06/04/23 12:01 PL [id number] 06/04/23 12:02 PL 06/04/23 12:01 Wound Center Nurse 2 #1 L medial ankle -Time 10:26 -Correct Patient Yes -Correct Side, Site, Position Yes -Correct Procedure Yes -Procedure Performed Yes -Type of Procedure Debridement -Clinical Debridement Subcutaneous -Tissue Removed Subcutaneous -Post Debridement (cm) - Length 0.6 -Post Debridement (cm) - Width 0.8 -Post Debridement (cm) - Depth 0.2 -Total Square (Post) (cm) 0.48 -Area of Debridement (cm) - Length 0.6 -Area of Debridement (cm) - Width 0.8 -Total Square (Area) (cm) 0.48 -Tunneling No -Undermining/Tunneling No -Circular Undermining No -Wound/Ulcer Outcome Not Healed -Ulcer Cleansing Rinsed/ Irrigated with Saline -Foul Odor after Cleansing No -Bioengineered Tissue Yes -Type of Bioengineered Tissue Epifix 18mm Disc -Expiration Date 02/29/28 -Product Lot Number [id number] -Percent Used 100 -Bleeding Controlled with Pressure -Treatment Response Procedure Tolerated Well -Debridement - Subq, 1st 20sq cm No -Apply Skin Sub - 1st 25 sq cm - Legs 1 -Epifix 18mm Disc 3 Pain Scale: 0-10 Numeric Is Patient Pain Free? Yes - Nurse 3 - General Ulcer D/C NN Start: 06/04/23 10:15 Freq: Status: Active Protocol: Activity Type Activity Date Activity User E-sign Co-sign Detail Recorded Client Recorded Date Recorded By Document 06/04/23 10:49 KW [id number] 06/04/23 10:49 KW 06/04/23 10:49 Wound Care Center Nurse 3 #1 L medial ankle -Ulcer Cleansing Rinsed/ Irrigated with Saline -Primary Dressing Covered/Secured with Dry Gauze & Roll Gauze, Secured with Tape LLE -Tubular Bandage Single Layer -Size of Tubigrip Used Size D -Size D ($) 1 Pain Scale: 0-10 Numeric Is Patient Pain Free? Yes WC - Visit Discharge Discharge Condition Stable Ambulatory Status Ambulatory Transportation Private Auto Medication Reconcilliation completed & No provided to patient/care provider Clinical Summary of Care Provided Yes Assessment/Plan Assessment/Plan (1) Non-pressure chronic ulcer of left calf with fat layer exposed: CODE(S): L97.222 - Non-pressure chronic ulcer of left calf with fat layer exposed (2) Non-pressure chronic ulcer of skin of other sites with muscle involvement without evidence of necrosis: CODE(S): L98.495 - Non-pressure chronic ulcer of skin of other sites with muscle involvement without evidence of necrosis (3) Basal cell carcinoma (BCC) of left lower extremity: CODE(S): C44.719 - Basal cell carcinoma of skin of left lower limb, including hip (4) BMI 40.0-44.9, adult: CODE(S): Z68.41 - Body mass index [BMI] 40.0-44.9, adult (5) HTN (hypertension): CODE(S): I10 - Essential (primary) hypertension PLAN: Plan Patient seen and evaluated She underwent excision of nodular and infiltrative basal cell carcinoma on 02/04/[address] Lisa Pryor MD. cancerous lesion measured 1.5 cm x 0.8 cm preexcision; post excision final defect size measured 1.8 cm x 1.0 cm.? She continues to follow with dermatology. Ulcerative site underwent debridement as noted in the clinical panel above.? Ulceration measures 0.4 cm x 0.3 cm x 0.1 cm.? No signs of infection.? Healthy bleeding granular tissue noted postdebridement.? EpiFix graft #8 applied to the ulcerative bed today and dressed with Adaptic touch, Steri-Strips and dry sterile dressing.?She is to change the outer dressing as needed.?She was instructed to not get the dressings wet.? Tubigrip stocking applied to lower extremity to aid in edema control.? She was instructed to continue to wear the Tubigrip daily and elevate legs at all times of rest to aid in edema control. Ulceration is noted to have continued improvement in reduction of size versus previous visit and is nearing closure. Discussed adequate protein intake to aid in her wound healing.? She may also take Robles supplementation to aid wound healing. Discussed signs and symptoms of infection to observe for.? She was instructed that if she notices any redness about the ulcer site that moves up the leg, or if she has any purulent drainage, or increasing foul odor, or if she experiences fever greater than 101 degree, nausea, vomiting, chills that these are signs of a progressing infection and she needs to report to the ED.? She voices understanding of this today. The following work up and care recommendations were made: Dressing: EpiFix, Adaptic touch, Steri-Strips and dry sterile dressing.? Change outer dressings as needed Wash: Do not get wet Tissue growth optimization: EpiFix Offload: Elevation of lower extremity at all times of rest.? To ensure nothing rubs against the ulcerative site on the inside of the left leg. Vascular: DP and PT pulses palpable.? Adequate capillary fill time.? I do not feel her vascular status is impeding her healing. Edema: Elevation of the lower extremities at all times rest.? Once ulcerative site healed plan for compression stockings to aid in edema control. Infection: No signs of infection. Pain: May take [id number] Tylenol as needed for discomfort. Host factors: Basal cell carcinoma left lower extremity, edema. ? I answered all the patient's questions.? To return to the wound healing center in 1 week or call sooner if the patient has any questions or concerns.
[2023-06-18 10:58] VITALS: BP 168/72; BMI 36.3
[2023-06-25 09:48] VITALS: BP 206/101; PULSE 82; RESP 20; TEMP 36.1; BMI 36.3
--- NOTE | 2023-06-25 10:12 | PN.PCM_ITS ---
History of Present Illness Chief Complaint: Left medial lower extremity ulceration History of Wound: Patient is a 67-year-old female with past medical history of basal cell carcinoma excised 02/04/2023 of the medial malleolus of the left lower extremity, HTN, obesity, knee replacement, and aortic valve insufficiency with murmur, SOB on exertion, and s/p double vessel coronary artery bypass. She states that she was sent by her primary care Dr. Bhavik Barker for evaluation of a nodular and infiltrative basal cell carcinoma in which she saw Dr. Lisa Pryor MD and underwent Mohs excision of the cancer site. Preoperative size of the lesion was noted to be 1.5 cm x 0.8 cm at the left distal pretibial region with final excised the defect size of 1.8 cm x 1.0 cm. She underwent local wound care in office however distance became a factor and she would like to continue to follow-up locally at the wound care center at [facility]. She states following a few days after the procedure she was on the treadmill and did have some swelling of the lower extremity site to which she feels may have worsened the wound. States she will continue to follow with dermatology for continued monitoring/follow-up. She currently denies any N/V/F/chills. Denies further complaints. Subjective Subjective This is a 67-year-old female who presents to the wound care center today for follow-up of left medial ankle ulceration s/p Mohs excision of basal cell carcinoma.? She had been changing outer dressings as needed and has left the graft in place. She has noticed the wound is getting smaller with continued graft application. ?Denies any constitutional symptoms today.? Denies further complaints today. Objective Data Objective Data Vital Signs: Vital Signs Temp Pulse Resp BP 97 F L 82 20 H 206/101 H 06/25/23 09:48 06/25/23 09:48 06/25/23 09:48 06/25/23 09:48 Weight: 102.058 kg Body Mass Index (BMI) 36.3 Physical Exam Const alert, oriented x3 and no apparent distress General Appearance: cooperative HEENT normocephalic Eyes General Eye: normal appearance of both eyes Neck General: normal visual inspection Lymph Lymphatic: no lymphadenopathy noted and no lymphedema noted Resp normal respiratory effort Cardio regular rate and regular rhythm Extremity normal capillary refill, no joint enlargement, no calf tenderness and no pedal edema Extremity Narrative: DP and PT pulses are palpable bilateral.? Capillary fill time adequate to the digits bilaterally.? She is noted to have a vascular malformation with reddish purplish discoloration to the anterior left lower extremity extending proximally to the thigh and up to the hip. Musculoskeletal: Muscle strength 5 of 5 age-appropriate.? Does have second digit hammertoe deformity bilateral, this is flexible.? Decreased range of motion of the first MTPJ without pain or crepitus bilateral and ankle joint with the knee in extension without pain and crepitus noted bilaterally. Skin no rashes or lesions noted, skin turgor normal and no jaundice Wound Narrative: Ulceration to the anterior aspect of the medial malleolus of the left lower extremity s/p Mohs excision of nodular infiltrative basal cell carcinoma.? Ulcerative site demonstrates mixed fibrogranular tissue with well-defined borders and atrophic wound margin.? No purulent drainage, no malodor, no erythema, no visible abscess formation, no palpable fluctuance/bogginess, no lymphangitis. Neuro moves all extremities Debridement Note Debridement Note Post-Debridement Measurements and Additional Note: Post-Debridement Measurements/Treatment - Nurse 1 - General Ulcer Assessment Start: 06/04/23 10:15 Freq: Status: Active Protocol: ELLEN Activity Type Activity Date Activity User E-sign Co-sign Detail Recorded Client Recorded Date Recorded By Document 06/04/23 10:15 ME [id number] 06/04/23 10:17 ME Document 06/18/23 10:58 [id number] 06/18/23 11:01 Document 06/25/23 09:48 DL [id number] 06/25/23 09:56 DL 06/04/23 06/18/23 06/25/23 10:15 10:58 09:48 - Today's Visit Information Type of service Follow-up Visit Follow-up Visit Follow-up Visit (Physician/RN PRIOR AUTHORIZATION (Physician/RN PRIOR AUTHORIZATION (Physician/RN PRIOR AUTHORIZATION ) ) ) Arrival Mode Ambulatory Ambulatory Ambulatory Transfer Assistance None Patient Identification Verified (Name & No Yes Yes ) Patient Requires Transmission-Based No No No Precautions Safety Precautions NA NA Height and Weight Body Mass Index (BMI) 36.3 36.3 36.3 BMI Classification Obese Obese Obese Vital Signs Temperature (97.8 F-99.1 F) 96.2 F L 97 F L Temperature Source Temporal Temporal Pulse Rate (60-100) 69 82 Pulse Location Monitor Monitor Respiratory Rate (12-18) 20 H Respiratory rate source Observation Blood Pressure (90/60-120/80) 132/69 H 168/72 H 206/101 H Blood Pressure Mean (mm Hg) 90 104 136 Source Monitor Monitor Monitor History Since Last Visit- (Skip if this is Patient's initial visit) Have you changed medications since your No No No last visit? Any new allergies or adverse reactions No No No Had a fall/change in ADL's that may No No No increase risk of falls Signs or symptoms of abuse and/or No No No neglect since last visit Have you been in the hospital since your No No No last visit? Has dressing in place as prescribed Yes Yes Yes Has compression in place as prescribed Yes Yes N/A Has offloadiing in place as prescribed N/A N/A Yes Experienced any changes in pain level or No No No management Left Footwear Regular Shoe Regular Shoe Right Footwear Regular Shoe Regular Shoe Pain Scale: 0-10 Numeric Is Patient Pain Free? Yes Yes Yes - Nurse 1 - General Ulcer Measurement Start: 06/04/23 10:15 Freq: Status: Active Protocol: Activity Type Activity Date Activity User E-sign Co-sign Detail Recorded Client Recorded Date Recorded By Document 06/04/23 10:15 AK [id number] 06/04/23 10:17 AK Document 06/18/23 10:58 [id number] 06/18/23 11:01 Document 06/25/23 09:48 DL [id number] 06/25/23 09:56 DL 06/04/23 06/18/23 06/25/23 10:15 10:58 09:48 Wound Center Nurse 1 #1 L medial ankle -Combined with other wound No No -Current Size (cm) - Length 0.8 0.6 0.1 -Current Size (cm) - Width 1 1.8 0.1 -Current Size (cm) - Depth 0.1 0.1 0.1 -Total Square Cm 0.8 1.08 0.01 -Date of Last Picture (Recall this 06/04/23 06/18/23 field) -Photo Taken Yes Yes -Tunneling No No -Undermining/Tunneling No No -Circular Undermining No No -Change in Wound Grade/Stage No No -Exudate Amt Small Small None Present -Exudate Type Serosanguineous Serosanguineous -Wound Margin Distinct, Distinct, Thickened Outline Outline Attached Attached -Granulation Amt Medium (34-66%) None Present (0 None Present (0 %) %) -Granulation Quality Flasher N/A -Slough/Fibrin Yes No -Necrosis Amt Medium (34-66%) None Present (0 Large (67-100%) %) -Necrotic Tissue Type Adherent Slough Eschar -Structure Exposed N/A N/A N/A -Texture (Nighat-wound Skin Appearance) No Abnormality, No Abnormality, Scarring Assessed Assessed -Moisture (Nighat-wound Skin Appearance) No Abnormality, No Abnormality, Dry/Scal y Assessed Assessed -Color (Nighat-wound Skin Appearance) No Abnormality, No Abnormality, Hemosiderin Assessed Assessed Staining -Temperature (Nighat-wound Skin No Abnormality No Abnormality No Abnormality Appearance) (Pt Warm) (Pt Warm) (Pt Warm) -Tenderness on Palpation (Nighat-wound No No No Skin Appearance) -Ulcer Cleansing Rinsed/ Soap and Water Not Cleansed Irrigated with Saline -Foul Odor after Cleansing No No No -Anesthetic Used 5% Lidocaine 5% Lidocaine 5% Lidocaine Gel Gel Gel -Wound Comment(s) scabbed 20.7 Left Calf (cm) 38 36.5 Left Ankle (cm) 21 20.7 WC - Nurse 2 - General Ulcer CM Notes Start: 06/04/23 10:15 Freq: Status: Active Protocol: Activity Type Activity Date Activity User E-sign Co-sign Detail Recorded Client Recorded Date Recorded By Document 06/04/23 12:01 [id number] 06/04/23 12:02 Document 06/18/23 12:17 [id number] 06/18/23 12:19 PL 06/04/23 06/18/23 12:01 12:17 Wound Center Nurse 2 #1 L medial ankle -Time 10:26 10:02 -Correct Patient Yes Yes -Correct Side, Site, Position Yes Yes -Correct Procedure Yes Yes -Procedure Performed Yes Yes -Type of Procedure Debridement Debridement -Clinical Debridement Subcutaneous Subcutaneous -Tissue Removed Subcutaneous Subcutaneous -Post Debridement (cm) - Length 0.6 0.4 -Post Debridement (cm) - Width 0.8 0.3 -Post Debridement (cm) - Depth 0.2 0.1 -Total Square (Post) (cm) 0.48 0.12 -Area of Debridement (cm) - Length 0.6 0.4 -Area of Debridement (cm) - Width 0.8 0.3 -Total Square (Area) (cm) 0.48 0.12 -Tunneling No No -Undermining/Tunneling No No -Circular Undermining No No -Wound/Ulcer Outcome Not Healed Not Healed -Ulcer Cleansing Rinsed/ Rinsed/ Irrigated with Irrigated with Saline Saline -Foul Odor after Cleansing No No -Bioengineered Tissue Yes No -Type of Bioengineered Tissue Epifix 18mm Epifix 18mm Disc Disc -Expiration Date 02/29/28 03/30/28 -Product Lot Number [id number] -Percent Used 100 100 -Bleeding Controlled with Pressure Pressure -Treatment Response Procedure Procedure Tolerated Well Tolerated Well -Debridement - Subq, 1st 20sq cm No No -Apply Skin Sub - 1st 25 sq cm - Legs 1 1 -Epifix 18mm Disc 3 3 Pain Scale: 0-10 Numeric Is Patient Pain Free? Yes Yes WC - Nurse 3 - General Ulcer D/C NN Start: 06/04/23 10:15 Freq: Status: Active Protocol: Activity Type Activity Date Activity User E-sign Co-sign Detail Recorded Client Recorded Date Recorded By Document 06/04/23 10:49 [email or web address] [id number] 06/04/23 10:49 Document 06/18/23 10:58 [id number] 06/18/23 11:01 06/04/23 06/18/23 10:49 10:58 Wound Care Center Nurse 3 #1 L medial ankle -Ulcer Cleansing Rinsed/ Irrigated with Saline -Foul Odor after Cleansing No -Negative Pressure Wound Therapy N/A -Primary Dressing Covered/Secured with Dry Gauze & Dry Gauze & Roll Gauze, Roll Gauze, Secured with Secured with Tape Tape LLE -Lotion applied to leg before No compression wrap -Tubular Bandage Single Layer Single Layer -Size of Tubigrip Used Size D Size D -Size D ($) 1 1 Vital Signs Blood Pressure (90/60-120/80) 168/72 H Blood Pressure Mean (mm Hg) 104 Source Monitor Pain Scale: 0-10 Numeric Is Patient Pain Free? Yes Yes WC - Visit Discharge Discharge Condition Stable Ambulatory Status Ambulatory Transportation Private Auto Medication Reconcilliation completed & No provided to patient/care provider Clinical Summary of Care Provided Yes Assessment/Plan Assessment/Plan (1) Non-pressure chronic ulcer of left calf with fat layer exposed: CODE(S): L97.222 - Non-pressure chronic ulcer of left calf with fat layer exposed (2) Non-pressure chronic ulcer of skin of other sites with muscle involvement without evidence of necrosis: CODE(S): L98.495 - Non-pressure chronic ulcer of skin of other sites with muscle involvement without evidence of necrosis (3) Basal cell carcinoma (BCC) of left lower extremity: CODE(S): C44.719 - Basal cell carcinoma of skin of left lower limb, including hip (4) BMI 40.0-44.9, adult: CODE(S): Z68.41 - Body mass index [BMI] 40.0-44.9, adult (5) HTN (hypertension): CODE(S): I10 - Essential (primary) hypertension PLAN: Plan Patient seen and evaluated She underwent excision of nodular and infiltrative basal cell carcinoma on 02/04/[address] Lisa Pryor MD. cancerous lesion measured 1.5 cm x 0.8 cm preexcision; post excision final defect size measured 1.8 cm x 1.0 cm.? She continues to follow with dermatology. Ulcerative site underwent debridement as noted in the clinical panel above.? Ulceration measures 0.4 cm x 0.3 cm x 0.1 cm.? No signs of infection.? Healthy bleeding granular tissue noted postdebridement.? EpiFix graft #8 applied to the ulcerative bed today and dressed with Adaptic touch, Steri-Strips and dry sterile dressing.?She is to change the outer dressing as needed.?She was instructed to not get the dressings wet.? Tubigrip stocking applied to lower extremity to aid in edema control.? She was instructed to continue to wear the Tubigrip daily and elevate legs at all times of rest to aid in edema control. Ulceration is noted to have continued improvement in reduction of size versus previous visit and is nearing closure. Discussed adequate protein intake to aid in her wound healing.? She may also take Robles supplementation to aid wound healing. Discussed signs and symptoms of infection to observe for.? She was instructed that if she notices any redness about the ulcer site that moves up the leg, or if she has any purulent drainage, or increasing foul odor, or if she experiences fever greater than 101 degree, nausea, vomiting, chills that these are signs of a progressing infection and she needs to report to the ED.? She voices understanding of this today. The following work up and care recommendations were made: Dressing: EpiFix, Adaptic touch, Steri-Strips and dry sterile dressing.? Change outer dressings as needed Wash: Do not get wet Tissue growth optimization: EpiFix Offload: Elevation of lower extremity at all times of rest.? To ensure nothing rubs against the ulcerative site on the inside of the left leg. Vascular: DP and PT pulses palpable.? Adequate capillary fill time.? I do not feel her vascular status is impeding her healing. Edema: Elevation of the lower extremities at all times rest.? Once ulcerative site healed plan for compression stockings to aid in edema control. Infection: No signs of infection. Pain: May take [id number] Tylenol as needed for discomfort. Host factors: Basal cell carcinoma left lower extremity, edema. ? I answered all the patient's questions.? To return to the wound healing center in 1 week or call sooner if the patient has any questions or concerns.
== END 2023-06-29 23:59 | disposition home or self-care (01) ==
LOC: WC 09:45
PROVIDERS: PCP Family Medicine; Referring Provider Dermatology MOHS-Micrographic Surgery; Visit Provider Student in an Organized Health Care Education/Training Program
DX: L97.222 Non-pressure chronic ulcer of left calf with fat layer exposed (principal); L98.495 Non-pressure chronic ulcer of skin of other sites with muscle involvement without evidence of necrosis; Z68.41 Body mass index [BMI] 40.0-44.9, adult; M79.89 Other specified soft tissue disorders; I10 Essential (primary) hypertension
CPT/HCPCS: 15271; 99213; Q4186; G0463

== ENCOUNTER 2023-06-25 10:43 | Emergency (ER) | payer MEDICARE, OTHER, SELFPAY ==
[2023-06-25 10:45] VITALS: BP 206/85; PULSE 74; RESP 14; TEMP 36.6; O2SAT 98; BMI 38.9
--- NOTE | 2023-06-25 11:29 | EX.ED.GENINJ ---
HPI <LEVI Story - Last Filed: 06/25/23 11:35> History of Present Illness Chief Complaint: Laceration Narrative Narrative: Patient presenting today with a small laceration just below her left eyebrow that she got today during a mechanical fall that occurred while she was at the wound center. She reports that she has shoes on that are too big for her and she tripped over her toes and fell forward, hitting her face on the ground and her glasses caused her to have a laceration above her left eye. She denies any loss of consciousness, head pain, neck pain or back pain, use of blood thinners, feeling dazed or confused, nausea or vomiting. Tetanus is up-to-date. PFS <LEVI Story - Last Filed: 06/25/23 11:35> [facility] Medical History (Updated 06/25/23 @ 16:[address] Les Mcmanus MD) Allergic rhinitis Aortic valve insufficiency Asthma Chronic cough Heart murmur Hernia HTN (hypertension) Home Medications albuterol sulfate 2.5 mg/3 mL (0.083 %) solution for nebulization 2.5 mg inhalation Q4H PRN 12/22/17 [History Last Taken Unknown] amlodipine 5 mg tablet 5 mg PO QDAY 12/22/17 [History Last Taken Unknown] aspirin 81 mg tablet,delayed release (Adult Aspirin Regimen) 81 mg PO QDAY 12/22/17 [History Last Taken Unknown] cholecalciferol (vitamin D3) 125 mcg (5,000 unit) capsule 5,000 unit PO QDAY 12/22/17 [History Last Taken Unknown] metoprolol tartrate 50 mg tablet 50 mg PO QDAY 12/22/17 [History Last Taken Unknown] omeprazole 20 mg capsule,delayed release 20 mg PO QDAY 12/22/17 [History Last Taken Unknown] pravastatin 40 mg tablet 40 mg PO QHS 12/22/17 [History Last Taken Unknown] valsartan 160 mg tablet 160 mg PO QDAY 12/22/17 [History Last Taken Unknown] diphenhydramine HCl 25 mg capsule (Benadryl) 25 mg PO QHS PRN 09/02/18 [History Last Taken Unknown] albuterol sulfate 90 mcg/actuation breath activated powder inhaler (ProAir RespiClick) 2 inh inhalation Q4H PRN shortness of breath or wheezing #1 ea 12/22/18 [Rx Last Taken Unknown] prednisone 10 mg tablet 10 mg PO QDAY #30 tabs 08/18/19 [Rx Last Taken Unknown] spacer #1 ea 03/06/20 [Rx Last Taken Unknown] fluticasone propionate 220 mcg/actuation HFA aerosol inhaler (Flovent HFA) 2 inh inhalation BID #12 grams 03/08/20 [Rx Last Taken Unknown] Allergy/AdvReac Type Severity Reaction Status Date / Time naproxen [From Naprosyn] Allergy Severe Hives Verified 06/25/23 10:44 Family History Mother Diabetes Father MADDY (obstructive sleep apnea) Surgical History Status post double vessel coronary artery bypass Total knee replacement status Social History Smoking Status: Never smoker second hand exposure: No alcohol intake: current alcohol intake frequency: a few times a month substance use type: former substance user Date of last use: marijuana in college ROS <LEVI Story - Last Filed: 06/25/23 11:35> ROS ED Constitutional Constitutional ED: Denies chills or fever(s) Eyes Eyes: Denies blurry vision or change in vision Cardiovascular Cardiovascular: Denies chest pain Respiratory/Chest Respiratory/Chest: Denies cough or dyspnea Gastrointestinal Gastrointestinal: Denies abdominal pain, nausea or vomiting Musculoskeletal Musculoskeletal: Denies arthralgias, back pain, myalgias or neck pain Integumentary Reports laceration Neurologic Neurologic: Denies confusion, dizziness, headache(s), paresthesias or weakness EXAM <LEVI Story - Last Filed: 06/25/23 11:35> Physical Exam Const Vital Signs: 06/25/23 10:45 Temperature 98 F Temperature Source Temporal Pulse Rate 74 Respiratory Rate 14 Blood Pressure 206/85 H Blood Pressure Mean 125 Pulse Ox 98 Oxygen Delivery Method Room Air Positive well nourished, well developed and no apparent distress General Appearance ED: well developed HEENT Reports normocephalic and TM's clear HEENT Narrative: Small 1.5 cm linear superficial laceration just below the left eyebrow. Patient does have edema to the L superior orbital region without any tenderness or crepitus. Tympanic Membrane ED: Yes TM's clear bilateral Mouth ED: Yes moist mucous membranes normal Eyes PERRL and EOMs intact bilaterally Neck full ROM and supple Chest Wall inspection of chest normal Resp normal respiratory effort and clear to auscultation bilaterally Cardio regular rate and regular rhythm GI soft to palpation, non-tender, non-distended and no masses Back/Spine normal ROM and normal to inspection Extremity normal to inspection and full ROM Neuro oriented x3, CN's II-XII intact bilaterally, moves all extremities, no focal motor deficits and no sensory deficits noted Sensorium / Orientation: awake and alert Psych mental status grossly normal and thought process normal <Dr. Les Mcmanus MD - Last Filed: 06/25/23 16:52> Physical Exam Const Vital Signs: 06/25/23 10:45 Temperature 98 F Temperature Source Temporal Pulse Rate 74 Respiratory Rate 14 Blood Pressure 206/85 H Blood Pressure Mean 125 Pulse Ox 98 Oxygen Delivery Method Room Air PROC <LEVI Story - Last Filed: 06/25/23 11:35> Procedures Lacerations Laceration: Length: 0.2 in Depth: Skin Shape: Linear Prep: Chlorhexadine Comment: Skin glue was used to close wound. MDM <LEVI Story - Last Filed: 06/25/23 11:35> [facility] Narrative Medical decision making narrative: Patient presenting today due to a mechanical fall that occurred while she was at the wound center this morning. She tripped over her feet that she was wearing shoes that are too large and fell, hitting her face on the ground and her glasses caused a small linear laceration just below her left eyebrow. This was very superficial and did not need to be sutured, I did clean it with chlorhexidine and placed a small amount of skin glue to the area. I do not feel that she needs a head CT as there was no loss of consciousness, she is not dazed or confused, she is not reporting any headaches, nausea, or vomiting. She is not on any blood thinners. She does not have any tenderness to her L superior orbital region to indicate a fracture although it is slightly edematous. Her tetanus is up-to-date. She has been given head injury precautions and is to follow-up with her PCP. She has been resistant to return as well as education on signs of infection. She will be discharged home in stable condition and is comfortable with plan. <Dr. Les Mcmanus MD - Last Filed: 06/25/23 16:52> [facility] Narrative Medical decision making narrative: Patient presenting today due to a mechanical fall that occurred while she was at the wound center this morning. She tripped over her feet that she was wearing shoes that are too large and fell, hitting her face on the ground and her glasses caused a small linear laceration just below her left eyebrow. This was very superficial and did not need to be sutured, I did clean it with chlorhexidine and placed a small amount of skin glue to the area. I do not feel that she needs a head CT as there was no loss of consciousness, she is not dazed or confused, she is not reporting any headaches, nausea, or vomiting. She is not on any blood thinners. She does not have any tenderness to her L superior orbital region to indicate a fracture although it is slightly edematous. Her tetanus is up-to-date. She has been given head injury precautions and is to follow-up with her PCP. She has been resistant to return as well as education on signs of infection. She will be discharged home in stable condition and is comfortable with plan. I have personally performed a face to face assessment of the patient and have reviewed the FÉLIX Note. I performed a substantive portion of the visit including all aspects of the following. My carpio findings include: History is remarkable for mechanical fall. She sustained a laceration left lateral upper eyelid. This is due to her glasses. She is not on an anticoagulant. She had no loss of conscious. She not amnestic. Denies ringing or ears decreased hearing. Denies neck pain. Denies paresthesia, anesthesia medics. She had no cardiac respiratory symptoms. Denies black or maroon-colored stool. Exam is contusion left upper eyelid with laceration. The wound approximates well. Plan is cleansed wound and Dermabond. This was performed under my supervision by the physician production assistant. Medical Decision Making based on the [place] CT head rule and Nexus criteria imaging of the head and neck are not indicated. Confirmed patient is not on anticoagulant. Wound was repaired using Dermabond. Other additions or changes: [None] Discharge Plan Triage Chief Complaint: Laceration ED Midlevel Provider: Angie Buck ED Provider: Les Mcmanus Dx/Rx/DC Orders Clinical Impression: Head injury, Injury due to fall, Laceration of eyelid without complication Instructions: ED Head Injury (Adult), ED Laceration: All Closures Prescriptions: No Action valsartan 160 mg tablet 160 mg PO QDAY amlodipine 5 mg tablet 5 mg PO QDAY pravastatin 40 mg tablet 40 mg PO QHS metoprolol tartrate 50 mg tablet 50 mg PO QDAY omeprazole 20 mg capsule,delayed release(DR/EC) 20 mg PO QDAY aspirin [Adult Aspirin Regimen] 81 mg tablet,delayed release (DR/EC) 81 mg PO QDAY cholecalciferol (vitamin D3) 5,000 unit capsule 5,000 unit PO QDAY albuterol sulfate 2.5 mg /3 mL (0.083 %) solution for nebulization 2.5 mg INHALATION Q4H PRN diphenhydramine HCl [Benadryl] 25 mg capsule 25 mg PO QHS PRN prednisone 10 mg tablet 10 mg PO QDAY Qty: 30 0RF Rx Instructions: take 4 tabs for three days, then 3 tabs for three days, then 2 tabs for three days, then 1 tab for 3 days ProAir RespiClick 90 mcg/actuation aerosol powdr breath activated 2 inh INHALATION Q4H PRN (Reason: shortness of breath or wheezing) Qty: 1 6RF (DME) spacer See Rx Instructions .ROUTE .MEDSUPPLY Qty: 1 0RF Rx Instructions: As directed Flovent HFA 220 mcg/actuation HFA aerosol inhaler 2 inh INHALATION BID Qty: 12 6RF Primary Care Provider: Nestor Ibanez Referrals: Nestor Ibanez MD [Primary Care Provider] - 3-5 Days Activity Restrictions/Additional Instructions: Ice your left eye several times a day for the next few days, follow-up with your PCP and return for any worsening of your symptoms. Disposition Disposition: Home, Self Care Discharge Date/Time: 06/25/23 11:32
== END 2023-06-25 11:32 | disposition home or self-care (01) ==
PROVIDERS: Emergency Provider Emergency Medicine; PCP Family Medicine; Visit Provider Emergency Medicine
DX: S01.112A Laceration without foreign body of left eyelid and periocular area, initial encounter (principal); I10 Essential (primary) hypertension; J45.909 Unspecified asthma, uncomplicated; Z79.899 Other long term (current) drug therapy; Z79.82 Long term (current) use of aspirin; S09.90XA Unspecified injury of head, initial encounter; W01.198A Fall on same level from slipping, tripping and stumbling with subsequent striking against other object, initial encounter; Y92.89 Other specified places as the place of occurrence of the external cause
CPT/HCPCS: 12011; 99282

== ENCOUNTER 2023-07-16 09:37 | Outpatient (RCR) | payer MEDICARE, OTHER, SELFPAY ==
[2023-06-30 00:20] VITALS: BP 206/101; PULSE 82; RESP 20; TEMP 36.1; BMI 36.3
[2023-07-16 09:42] VITALS: BP 174/71; PULSE 70; RESP 16; TEMP 35.7; BMI 36.3
--- NOTE | 2023-07-16 12:00 | PN.PCM_ITS ---
History of Present Illness Date of Service: 07/16/23 Chief Complaint: Left medial lower extremity ulceration History of Wound: Patient is a 67-year-old female with past medical history of basal cell carcinoma excised 02/04/2023 of the medial malleolus of the left lower extremity, HTN, obesity, knee replacement, and aortic valve insufficiency with murmur, SOB on exertion, and s/p double vessel coronary artery bypass. She states that she was sent by her primary care Dr. Bhavik Barker for evaluation of a nodular and infiltrative basal cell carcinoma in which she saw Dr. Lisa Pryor MD and underwent Mohs excision of the cancer site. Preoperative size of the lesion was noted to be 1.5 cm x 0.8 cm at the left distal pretibial region with final excised the defect size of 1.8 cm x 1.0 cm. She underwent local wound care in office however distance became a factor and she would like to continue to follow-up locally at the wound care center at [facility]. She states following a few days after the procedure she was on the treadmill and did have some swelling of the lower extremity site to which she feels may have worsened the wound. States she will continue to follow with dermatology for continued monitoring/follow-up. She currently denies any N/V/F/chills. Denies further complaints. Subjective Subjective This is a 67-year-old female who presents to the wound care center today for follow-up of left medial ankle ulceration s/p Mohs excision of basal cell carcinoma.? She states wound has healed well without complication. States the cut over her eye has also healed following her fall last month.?Denies any constitutional symptoms today.? Denies further complaints today. Objective Data Objective Data Vital Signs: Vital Signs Temp Pulse Resp BP O2 Del Method 96.2 F L 70 16 174/71 H Room Air 07/16/23 09:42 07/16/23 09:42 07/16/23 09:42 07/16/23 09:42 07/16/23 09:42 Oxygen Delivery Method Room Air Weight: 102.058 kg Body Mass Index (BMI) 36.3 Physical Exam Const alert, oriented x3, no apparent distress and well nourished General Appearance: cooperative HEENT normocephalic Eyes Eyes Narrative: Wears glasses General Eye: normal appearance of both eyes Neck General: normal visual inspection Lymph Lymphatic: no lymphadenopathy noted and no lymphedema noted Resp normal respiratory effort Cardio regular rate and regular rhythm Extremity normal capillary refill, no joint enlargement, no calf tenderness and no pedal edema Extremity Narrative: DP and PT pulses are palpable bilateral.? Capillary fill time adequate to the digits bilaterally.? She is noted to have a vascular malformation with reddish purplish discoloration to the anterior left lower extremity extending proximally to the thigh and up to the hip. Musculoskeletal: Muscle strength 5 of 5 age-appropriate.? Does have second digit hammertoe deformity bilateral, this is flexible.? Decreased range of motion of the first MTPJ without pain or crepitus bilateral and ankle joint with the knee in extension without pain and crepitus noted bilaterally. Dermatological: Ulceration to the anterior aspect of the medial malleolus of the left lower extremity s/p Mohs excision of nodular infiltrative basal cell carcinoma.? Ulcerative site remains healed today with healthy appearing skin. No purulent drainage, no malodor, no erythema, no visible abscess formation, no palpable fluctuance/bogginess, no lymphangitis. Skin no rashes or lesions noted, skin turgor normal and no jaundice Neuro moves all extremities Debridement Note Debridement Note No debridement was completed: No debridement was completed today Post-Debridement Measurements and Additional Note: Post-Debridement Measurements/Treatment - Nurse 1 - General Ulcer Assessment Start: 07/16/23 09:42 Freq: Status: Active Protocol: WC.LOWEXT Activity Type Activity Date Activity User E-sign Co-sign Detail Recorded Client Recorded Date Recorded By Document 07/16/23 09:42 [id number] 07/16/23 09:51 KW 07/16/23 09:42 - Today's Visit Information Type of service Follow-up Visit (Physician/TELEPHONE MESSENGER ) Arrival Mode Ambulatory Patient Identification Verified (Name & Yes ) Patient Requires Transmission-Based No Precautions Height and Weight Body Mass Index (BMI) 36.3 BMI Classification Obese Vital Signs Temperature (97.8 F-99.1 F) 96.2 F L Temperature Source Temporal Pulse Rate (60-100) 70 Pulse Location Monitor Respiratory Rate (12-18) 16 Respiratory rate source Observation Oxygen Delivery Method Room Air Blood Pressure (90/60-120/80) 174/71 H Blood Pressure Mean (mm Hg) 105 Source Monitor Position Sitting Blood Pressure Location Left Arm History Since Last Visit- (Skip if this is Patient's initial visit) Have you changed medications since your No last visit? Any new allergies or adverse reactions No Had a fall/change in ADL's that may No increase risk of falls Signs or symptoms of abuse and/or No neglect since last visit Have you been in the hospital since your No last visit? Has dressing in place as prescribed Yes Has compression in place as prescribed No Has offloadiing in place as prescribed No Experienced any changes in pain level or No management Left Footwear Regular Shoe Right Footwear Regular Shoe Pain Scale: 0-10 Numeric Is Patient Pain Free? Yes - Nurse 1 - General Ulcer Measurement Start: 07/16/23 09:42 Freq: Status: Active Protocol: Activity Type Activity Date Activity User E-sign Co-sign Detail Recorded Client Recorded Date Recorded By Document 07/16/23 09:42 KW [id number] 07/16/23 09:51 KW 07/16/23 09:42 Wound Center Nurse 1 #1 L medial ankle -Combined with other wound No -Current Size (cm) - Length 0.1 -Current Size (cm) - Width 0.1 -Current Size (cm) - Depth 0.1 -Total Square Cm 0.01 -Epithelialization Large 67-100% -Necrosis Amt Small (1-33%) -Necrotic Tissue Type Eschar -Texture (Nighat-wound Skin Appearance) Assessed, Scarring -Moisture (Nighat-wound Skin Appearance) Assessed -Color (Nighat-wound Skin Appearance) Assessed -Temperature (Nighat-wound Skin No Abnormality Appearance) (Pt Warm) -Tenderness on Palpation (Nighat-wound No Skin Appearance) -Ulcer Cleansing Rinsed/ Irrigated with Saline -Foul Odor after Cleansing No -Anesthetic Used 5% Lidocaine Gel - Nurse 3 - General Ulcer D/C NN Start: 07/16/23 09:42 Freq: Status: Active Protocol: Activity Type Activity Date Activity User E-sign Co-sign Detail Recorded Client Recorded Date Recorded By Document 07/16/23 10:05 KW [id number] 07/16/23 10:06 KW 07/16/23 10:05 Wound Care Center Nurse 3 -Ulcer Cleansing Rinsed/ Irrigated with Saline Pain Scale: 0-10 Numeric Is Patient Pain Free? Yes WC - Visit Discharge Discharge Condition Stable Ambulatory Status Cane Transportation Private Auto Medication Reconcilliation completed & No provided to patient/care provider Clinical Summary of Care Provided Yes Assessment/Plan Assessment/Plan (1) Non-pressure chronic ulcer of left calf with fat layer exposed: CODE(S): L97.222 - Non-pressure chronic ulcer of left calf with fat layer exposed (2) Non-pressure chronic ulcer of skin of other sites with muscle involvement without evidence of necrosis: CODE(S): L98.495 - Non-pressure chronic ulcer of skin of other sites with muscle involvement without evidence of necrosis (3) Basal cell carcinoma (BCC) of left lower extremity: CODE(S): C44.719 - Basal cell carcinoma of skin of left lower limb, including hip (4) HTN (hypertension): CODE(S): I10 - Essential (primary) hypertension PLAN: Plan Patient seen and evaluated She underwent excision of nodular and infiltrative basal cell carcinoma on 02/04/[address] Lisa Pryor MD. cancerous lesion measured 1.5 cm x 0.8 cm preexcision; post excision final defect size measured 1.8 cm x 1.0 cm.? She continues to follow with dermatology. Ulcerative site remains healed today.?No signs of infection.? A Band-Aid was placed over the site for protection of fragile skin and she was instructed to continue application for next 7 to 10 days. Tubigrip stocking applied to lower extremity to aid in edema control.? She was instructed to continue to wear the Tubigrip daily and elevate legs at all times of rest to aid in edema control. Discussed signs and symptoms of infection to observe for.? She was instructed that if she notices any redness about the ulcer site that moves up the leg, or if she has any purulent drainage, or increasing foul odor, or if she experiences fever greater than 101 degree, nausea, vomiting, chills that these are signs of a progressing infection and she needs to report to the ED.? She voices understanding of this today. The following work up and care recommendations were made: Dressing: Band-Aid to site for next 7 to 10 days Wash: Soap and water Tissue growth optimization: None Offload: Elevation of lower extremity at all times of rest.? To ensure nothing rubs against the ulcerative site on the inside of the left leg. Vascular: DP and PT pulses palpable.? Adequate capillary fill time.? I do not feel her vascular status is impeding her healing. Edema: Elevation of the lower extremities at all times rest.? Once ulcerative site healed plan for compression stockings to aid in edema control. Infection: No signs of infection. Pain: May take [id number] Tylenol as needed for discomfort. Host factors: Basal cell carcinoma left lower extremity, edema. ? At this time with all wounds healed she is discharged from the wound care center. She has follow-up appointment with peanut vendor next week. I answered all the patient's questions.? To return to the wound healing center as needed or call sooner if the patient has any questions or concerns.
== END 2023-07-16 15:56 | disposition home or self-care (01) ==
LOC: WC 09:37
PROVIDERS: PCP Family Medicine; Referring Provider Dermatology MOHS-Micrographic Surgery; Visit Provider Student in an Organized Health Care Education/Training Program
DX: L97.222 Non-pressure chronic ulcer of left calf with fat layer exposed (principal); L98.495 Non-pressure chronic ulcer of skin of other sites with muscle involvement without evidence of necrosis; I10 Essential (primary) hypertension; M79.89 Other specified soft tissue disorders; C44.719 Basal cell carcinoma of skin of left lower limb, including hip
CPT/HCPCS: 99213; G0463

== ENCOUNTER → 2023-11-12 | Outpatient (CLI) | payer MEDICARE, OTHER, SELFPAY ==
[2023-11-12 10:39] LABS: Erythrocyte Sedimentation Rate 48 mm/hr (0-30)
[2023-11-12 10:41] LABS: Hematocrit 37.1 % (37-47); Hemoglobin 11.5 g/dL (12.0-15.0); Mean Corpuscular Hgb 27.6 pg (27.0-32.0); Mean Corpuscular Volume 89.2 fL (81-99); Mean Platelet Vol. 11.2 fl (6.2-12.0); Platelet Count 272 K/mm3 (150-450); RBC Distribution Width CV 15.9 % (11.6-14.6); RBC Distribution Width SD 51.8 fl (35.1-43.9); Red Blood Count 4.16 M/mm3 (4.2-5.4); White Blood Count 7.7 K/mm3 (4.4-11.0)
[2023-11-12 10:58] LABS: Vitamin D,25 Hydroxy 37.3 ng/mL
[2023-11-12 11:02] LABS: PTHIN 69.9 pg/mL (18.4-80.1)
[2023-11-12 11:10] LABS: Hemoglobin A1c 5.7 % (3.8-5.6)
[2023-11-12 11:29] LABS: ALB/GLOB Ratio 0.6 RATIO (0.9-2.4); AST(SGOT) 26 U/L (15-37); Alanine Aminotransfer ALT/SGPT 21 U/L (13-56); Albumin, Serum 3.2 g/dL (3.2-5.0); Alkaline Phosphatase 110 U/L (45-117); Anion Gap 5 (5-15); BUN 16 mg/dL (7-18); Calcium,Total 9.1 mg/dL (8.5-10.1); Chloride 107 mmol/L (98-107); Creatinine, Serum 0.84 mg/dL (0.55-1.02); EST Glomerular Filtration Rate 71 mL/min (>60); Est Glom Filt Rate - Afr Amer 86 mL/min (>60); Globulin 5.5 g/dL (2.2-4.2); Glucose 97 mg/dL (74-106); Potassium 4.3 mmol/L (3.5-5.1); Protein, Total 8.7 g/dL (6.4-8.2); Rheumatoid Factor < 10.0 IU/mL (<15); Sodium Level 140 mmol/L (136-145)
[2023-11-13 11:08] LABS: ANTINUCLEAR ANTIBODIES DIRECT Negative (Negative)
[2023-11-16 13:08] LABS: PROEL- A/G Ratio 0.7 (0.7-1.7); PROEL- Albumin 3.2 g/dL (2.9-4.4); PROEL- Alpha-1 Globulin 0.4 g/dL (0.0-0.4); PROEL- Alpha-2 Globulin 1.2 g/dL (0.4-1.0); PROEL- Beta Globulin 1.2 g/dL (0.7-1.3); PROEL- Gamma Globulin 1.8 g/dL (0.4-1.8); PROEL- Globulin, Total 4.6 g/dL (2.2-3.9); PROEL- TOTAL PROTEIN 7.8 g/dL (6.0-8.5); PROEL-M-Spike Not Observed g/dL (Not Observed)
== END | disposition home or self-care (01) ==
PROVIDERS: PCP Family Medicine; Referring Provider Family Medicine; Visit Provider Family Medicine
DX: R73.03 Prediabetes (principal); M85.80 Other specified disorders of bone density and structure, unspecified site; R70.0 Elevated erythrocyte sedimentation rate; I10 Essential (primary) hypertension
CPT/HCPCS: 36415; 80053; 82043; 82306; 82570; 83036; 83970; 84165; 85027; 85652; 86038; 86140; 86431

== ENCOUNTER → 2023-12-14 | Outpatient (CLI) | payer MEDICARE, OTHER, SELFPAY ==
--- NOTE | 2023-12-14 16:21 | RAD_ITS ---
STUDY: X-RAY CHEST REASON FOR EXAM: Female, 67 years old. L lower lobe rales/rhonchi TECHNIQUE: PA and lateral views of the chest. COMPARISON: None. FINDINGS: The lungs are clear and expanded. There is no demonstrated pleural abnormality. Borderline cardiomegaly with midline sternotomy wires and an stenting projecting over the midline spine. Normal mediastinum and robbie. Normal visualized pulmonary arteries. There is atherosclerotic calcification of the aortic arch with tortuosity. There are diffuse degenerative changes of the visualized thoracic spine. Normal visualized ribs, clavicles, and shoulders. There is no demonstrated abnormality of the visualized soft tissue structures of the upper abdomen. RAD/Chest PA and Lateral IMPRESSION: No acute cardiopulmonary disease. Electronically Signed: Britany Whitman MD at 16:42 EST ,
--- OUTSIDE RECORDS SUMMARY | 2023-12-14 16:44 | XMS RPT_ITS | CCD ---
Author Name Unknown Address [address] [place] [address] Organization [facility] [place] Care Team Providers Care Filemaker Developer Name Role Phone Nicol Ibanez Unavailable Unavailable Jass Pepe Unavailable [phone] Blaine Silveira Unavailable Unavailable Blaine Silveira Unavailable Unavailable Nicol Ibanez Primary Care Provider Jass Pepe Unavailable Nicol Ibanez Primary Care Provider Jass Pepe Unavailable Nicol Ibanez MD Primary Care Provider [phone] Jass Pepe MD Unavailable Nicol Ibanez MD Primary Care Provider [phone] Jass Pepe MD Unavailable Fanning, Robert Lynne Attending Unavailable Fanning, Robert Lynne Attending Unavailable Fanning, Robert Lynne Attending Unavailable Fanning, Robert Lynne Attending Unavailable Fanning, Robert Lynne Attending Unavailable Fanning, Robert Lynne Attending Unavailable Fanning, Robert Lynne Attending Unavailable Fanning, Robert Lynne Attending Unavailable Fanning, Robert Lynne Attending Unavailable Fanning, Robert Lynne Attending Unavailable Fanning, Robert Lynne Attending Unavailable Fanning, Robert Lynne Attending Unavailable Fanning, Robert Lynne Attending Unavailable Fanning, Robert Lynne Attending Unavailable Fanning, Robert Lynne Attending Unavailable Fanning, Robert Lynne Attending Unavailable Fanning, Robert Lynne Attending Unavailable Fanning, Robert Lynne Attending Unavailable Fanning, Robert Lynne Attending Unavailable Fanning, Robert Lynne Attending Unavailable Fanning, Robert yLnne Attending Unavailable Fanning, Robert Lynne Attending Unavailable Fanning, Robert Lynne Attending Unavailable Fanning, Robert Lynne Attending Unavailable Fanning, Robert Lynne Attending Unavailable Fanning, Robert Lynne Attending Unavailable Fanning, Robert Lynne Attending Unavailable Fanning, Robert J Attending Unavailable Fanning, Robert J Attending Unavailable Fanning, Robert J Attending Unavailable Fanning, Robert J Attending Unavailable Fanning, Robert J Attending Unavailable Fanning, Robert J Attending Unavailable Fanning, Robert J Attending Unavailable Fanning, Robert J Attending Unavailable Fanning, Robert J Attending Unavailable Fanning, Robert Lynne Attending Unavailable Marcelle HARPER, Nicol Osborn Primary Care Provider [phone] Watson HARPER, Jass Maldonado Unavailable TOMMELCHOR, NICOL OSBORN Primary Care Unavailable TOMCHAK, NICOL OSBORN Primary Care Unavailable ANGELICA RANDALL Admitting Unavailable TONIA, ANGELICA HSIEH Attending Unavailable TOMCHAK, NICOL OSBORN Primary Care Unavailable ANGELICA RANDALL Attending Unavailable TOMCHAK, NICOL OSBORN Primary Care Unavailable TERRIE OH Attending Unavailable TOMMELCHOR, NICOL OSBORN Primary Care Unavailable JASS PEPE Admitting Unavailab maty PEPE, JASS MALDONADO Attending Unavailab le TOMMELCHOR, NICOL OSBORN Primary Care Unavailable AMEZCUAJAVI Attending Unavailable TOMMELCHOR, NICOL IRENA Primary Care Unavailable AMEZCUAJAVI Referring Unavailable AMEZCUAJAVI Admitting Unavailable TOMMELCHOR, NICOL IRENA Primary Care Unavailable JASS PEPE Referring Unavailab BLAINE Bailey Attending Unavailable BLAINE SILVEIRA Admitting Unavailable MARCELLE, NICOL IRENA Primary Care Unavailable AMEZCUAJAVI SILVEIRA Referring Unavailable LAFLEUR, KIRILL A Primary Care Unavailable AMEZCUAJAVI Referring Unavailable LAFLEUR, KIRILL A Primary Care Unavailable AMEZCUAJAVI Referring Unavailable LAFLEUR, KIRILL A Primary Care Unavailable AMEZCUAJAVI Referring Unavailable LAFLEUR, KIRILL A Primary Care Unavailable AMEZCUAJAVI Referring Unavailable LAFLEUR, KIRILL A Primary Care Unavailable AMEZCUA, JAVI FLORES Referring Unavailable LAFLEUR, KIRILL A Primary Care Unavailable AMEZCUA, JAVI FLORES Referring Unavailable LAFLEUR, KIRILL A Primary Care Unavailable AMEZCUA, JAVI FLORES Referring Unavailable LAFLEUR, KIRILL A Primary Care Unavailable AMEZCUAJAVI Referring Unavailable LAFLEUR, KIRILL A Primary Care Unavailable AMEZCUAJAVI Referring Unavailable LAFLEUR, KIRILL A Primary Care Unavailable AMEZCUAJAVI Referring Unavailable LAFLEUR, KIRILL A Primary Care Unavailable AMEZCUA, JAVI ANGELICA Referring Unavailable KIRILL LAFLEUR Primary Care Unavailable Allergies Allergy Classification Reported Allergen(s) Allergy Type Date of Onset Reaction(s) Facility NSAIDs (4 sources) Naproxen Drug Allergy 5 [facility] Quinolones (antibiotic) (4 sources) levoFLOXacin Drug Allergy 5 [facility] (20 sources) levoFLOXacin; Translations: [LEVOFLOXACIN] Propensity to adverse reactions to drug 5 [facility] Work Phone: (20 sources) naproxen; Translations: [NAPROXEN] Propensity to adverse reactions to drug 5 [facility] Work Phone: (1 source) ALLERGIES NOT ON FILE; Translations: [ALLERGIES NOT ON FILE] Propensity to adverse reactions (disorder) [facility] 2 Repository Medications Current Medications Medication Drug Class(es) Dates Sig (Normalized) Sig (Original) azithromycin 250 mg oral tablet (7 sources) Macrolide Antimicrobial Start: 01-04-2022 azithromycin (ZITHROMAX) 250 MG tablet [id number] INC ORAL (20 sources) take 1 tablet by mouth once daily CALCIUM-MAGNESIUM- ZINC ORAL Take 1 tablet by mouth daily . 0 Completed/Discontinued Medications Medication Drug Class(es) Dates Sig (Normalized) Sig (Original) acetaminophen 325 mg oral tablet (2 sources) Start: 01-21-2022 End: 01-22-2022 take 1 tablet by mouth every four hours as needed for pain 650 mg, Oral, Every 4 hours PRN, mild pain, Starting on Thu01/21/22 at 1636, PACU to Post Procedure Problems Active Problems Problem Classification Problem Date Documented Date Episodic/Chronic Aortic; peripheral; and visceral artery aneurysms (5 sources) Ascending aorta dilatation; Translations: [Thoracic aortic ectasia] Onset: 04-04-2022 04-04-2022 Chronic Coronary atherosclerosis and other heart disease (20 sources) 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[place] artery; Translations: [Atherosclerotic heart disease of [place] coronary artery without angina pectoris] Onset: 11-05-2015 04-21-2016 Chronic Disorders of lipid metabolism (20 sources) Mixed hyperlipidemia; Translations: [Mixed hyperlipidemia] Onset: 06-10-2021 Chronic Essential hypertension (5 sources) Hypertensive disorder; Translations: [Essential (primary) hypertension] Onset: 01-21-2023 Chronic Genitourinary symptoms and ill-defined conditions (1 source) Abnormal urine; Translations: [Other abnormal findings in urine] Episodic Heart valve disorders (20 sources) Aortic valve regurgitation; Translations: [Nonrheumatic aortic (valve) insufficiency] Onset: 11-05-2015 01-06-2018 Chronic Osteoarthritis (10 sources) Osteoarthritis of right knee joint; Translations: [Unilateral primary osteoarthritis, right knee] Onset: 09-25-2023 09-27-2023 Chronic Other circulatory disease (1 source) Other specified symptoms and signs involving the circulatory and respiratory systems; Translations: [Other symptoms involving cardiovascular system] Episodic Other lower respiratory disease (3 sources) Dyspnea; Translations: [Dyspnea, unspecified] Episodic Other non-traumatic joint disorders (2 sources) Pain in right knee; Translations: [Pain in right knee] Onset: 09-29-2023 Episodic Other screening for suspected conditions (not mental disorders or infectious disease) (2 sources) Coag./bleeding tests abnormal; Translations: [Abnormal coagulation profile] Episodic Residual codes; unclassified (2 sources) Pain, unspecified; Translations: [Pain, unspecified] Onset: 09-14-2023 Episodic Unclassified (2 sources) Mediastinitis; Translations: [Fibrosing mediastinitis] Onset: 11-05-2015 04-21-2016 Past or Other Problems Problem Classification Problem Date Documented Date Episodic/Chronic Other hematologic conditions (20 sources) ESR raised; Translations: [Elevated erythrocyte sedimentation rate] Onset: 06-10-2021 Episodic Other lower respiratory disease (2 sources) Shortness of breath; Translations: [Shortness of breath] Onset: 02-19-2022 Episodic Other upper respiratory disease (20 sources) Sclerosing mediastinitis; Translations: [Mediastinitis] Onset: 11-05-2015 04-21-2016 Episodic Results Test Name Value Interpretation Reference Range Facil ity Vital Signs Date Time Vital Sign Value Performing Clinician Ros[facility] 10-20-2023 13:34-0500 Diastolic blood pressure 91 mm[Hg] Blaine Silveira MD Work Phone: [facility] 10-20-2023 13:34-0500 Systolic blood pressure 156 mm[Hg] Blaine Silveira MD Work Phone: [facility] 10-20-2023 13:24-0500 Body height 170.2 cm Blaine Silveira MD Work Phone: [facility] 10-20-2023 13:24-0500 Body mass index (BMI) [Ratio] 37.28 kg/m2 Blaine Silveira MD Work Phone: [facility] 10-20-2023 13:24-0500 Body weight 107.96 kg Blaine Silveira MD Work Phone: [facility] 10-20-2023 13:24-0500 Heart rate 74 /min Blaine Silveira MD Work Phone: [facility] 10-20-2023 13:24-0500 SaO2% (BldA) [Mass fraction] 97 % Blaine Silveira MD Work Phone: [facility] 01-21-2023 09:01-0500 Body height 167.6 cm Angelica Dye [employer] Work Phone: [facility] 01-21-2023 09:01-0500 Body mass index (BMI) [Ratio] 38.76 kg/m2 Angelica Dye [employer] Work Phone: [facility] 01-21-2023 09:01-0500 Body temperature 98.01 [degF] Angelica Dye [employer] Work Phone: [facility] 01-21-2023 09:01-0500 Body weight 108.92 kg Angelica Dye [employer] Work Phone: [facility] 01-21-2023 09:01-0500 Diastolic blood pressure 84 mm[Hg] Angelica Dye [employer] Work Phone: [facility] 01-21-2023 09:01-0500 Heart rate 67 /min Angelica Dye [employer] Work Phone: [facility] 01-21-2023 09:01-0500 Respiratory rate 16 /min Angelica Dye [employer] Work Phone: [facility] 01-21-2023 09:01-0500 SaO2% (BldA) [Mass fraction] 98 % Angelica Dye [employer] Work Phone: [facility] 01-21-2023 09:01-0500 Systolic blood pressure 198 mm[Hg] Angelica Dye [employer] Work Phone: [facility] 02-19-2022 11:13-0400 Diastolic blood pressure 85 mm[Hg] Angelica Dye [employer] Work Phone: [facility] 02-19-2022 11:13-0400 Systolic blood pressure 148 mm[Hg] Angelica Dye [employer] Work Phone: [facility] 02-19-2022 11:08-0400 Body height 167.6 cm Angelica Dye [employer] Work Phone: [facility] 02-19-2022 11:08-0400 Body mass index (BMI) [Ratio] 36.97 kg/m2 Angelica Dye [employer] Work Phone: [facility] 02-19-2022 11:08-0400 Body temperature 97.7 [degF] Angelica Dye [employer] Work Phone: [facility] 02-19-2022 11:08-0400 Body weight 103.9 kg Angelica Dye [employer] Work Phone: [facility] 02-19-2022 11:08-0400 Heart rate 69 /min Angelica Dye [employer] Work Phone: [facility] 02-19-2022 11:08-0400 Respiratory rate 16 /min Angelica Dye [employer] Work Phone: [facility] 02-19-2022 11:08-0400 SaO2% (BldA) [Mass fraction] 98 % Angelica Dye [employer] Work Phone: [facility] 02-03-2022 09:56-0500 Body mass index (BMI) [Ratio] 35.51 kg/m2 Angelica Dye [employer] Work Phone: [facility] 02-03-2022 09:56-0500 Body weight 99.79 kg Angelica Dye [employer] Work Phone: [facility] 02-03-2022 09:56-0500 Diastolic blood pressure 80 mm[Hg] Angelica Randall [employer] Work Phone: [facility] 02-03-2022 09:56-0500 Systolic blood pressure 132 mm[Hg] Angelica Tonia [employer] Work Phone: [facility] 01-22-2022 07:52-0500 Body temperature 98.01 [degF] Lindsey Plummer MD Work Phone: [facility] 01-22-2022 07:52-0500 Diastolic blood pressure 84 mm[Hg] Lindsey Plummer MD Work Phone: [facility] 01-22-2022 07:52-0500 Heart rate 81 /min Lindsey Plummer MD Work Phone: [facility] 01-22-2022 07:52-0500 Respiratory rate 18 /min Lindsey Plummer MD Work Phone: [facility] 01-22-2022 07:52-0500 SaO2% (BldA) [Mass fraction] 98 % Lindsey Plummer MD Work Phone: [facility] 01-22-2022 07:52-0500 Systolic blood pressure 123 mm[Hg] Lindsey long MD Work Phone: [facility] 01-22-2022 04:08-0500 Body mass index (BMI) [Ratio] 37.28 kg/m2 Lindsey Plummer MD Work Phone: [facility] 01-22-2022 04:08-0500 Body weight 104.78 kg Lindsey Plummer MD Work Phone: [facility] 01-21-2022 11:49-0500 Respiratory rate 0 /min Lindsey Plummer MD Work Phone: [facility] 01-21-2022 08:20-0500 Body height 167.6 cm Lindsey Plummer MD Work Phone: [facility] 01-09-2022 09:44-0500 Body height 167.6 cm Meir Arthur MD Work Phone: [facility] 01-09-2022 09:44-0500 Body mass index (BMI) [Ratio] 37.82 kg/m2 Meir Arthur MD Work Phone: [facility] 01-09-2022 09:44-0500 Body temperature 98.01 [degF] Meir Arthur MD Work Phone: [facility] 01-09-2022 09:44-0500 Body weight 106.3 kg Meir Arthur MD Work Phone: [facility] 01-09-2022 09:44-0500 Diastolic blood pressure 80 mm[Hg] Meir Arthur MD Work Phone: [facility] 01-09-2022 09:44-0500 Heart rate 78 /min Meir Arthur MD Work Phone: [facility] 01-09-2022 09:44-0500 Respiratory rate 18 /min Meir Arthur MD Work Phone: [facility] 01-09-2022 09:44-0500 SaO2% (BldA) [Mass fraction] 97 % Meir Arthur MD Work Phone: [facility] 01-09-2022 09:44-0500 Systolic blood pressure 143 mm[Hg] Meir Daily Work Phone: [facility] 01-09-2022 09:36-0500 Body height 167.6 cm Lindsey Plummer MD Work Phone: [facility] 01-09-2022 09:36-0500 Body mass index (BMI) [Ratio] 37.82 kg/m2 Lindsey Plummer MD Work Phone: [facility] 01-09-2022 09:36-0500 Body temperature 98.01 [degF] Lindsey Plummer MD Work Phone: [facility] 01-09-2022 09:36-0500 Body weight 106.3 kg Lindsey Plummer MD Work Phone: [facility] 01-09-2022 09:36-0500 Diastolic blood pressure 80 mm[Hg] Lindsey Plummer MD Work Phone: [facility] 01-09-2022 09:36-0500 Heart rate 78 /min Lindsey Plummer MD Work Phone: [facility] 01-09-2022 09:36-0500 Respiratory rate 16 /min Lindsey Plummer MD Work Phone: [facility] 01-09-2022 09:36-0500 SaO2% (BldA) [Mass fraction] 97 % Lindsey Plummer MD Work Phone: [facility] 01-09-2022 09:36-0500 Systolic blood pressure 143 mm[Hg] Lindsey long MD Work Phone: [facility] 06-10-2021 11:16-0400 Body height 167.6 cm Blaine Silveira MD Work Phone: [facility] 06-10-2021 11:16-0400 Body mass index (BMI) [Ratio] 36.8 kg/m2 Blaine Silveira MD Work Phone: [facility] 06-10-2021 11:16-0400 Body weight 103.42 kg Blaine Silveira MD Work Phone: [facility] 06-10-2021 11:16-0400 Diastolic blood pressure 73 mm[Hg] Blaine Silveira MD Work Phone: [facility] 06-10-2021 11:16-0400 Heart rate 73 /min Blaine Silveira MD Work Phone: [facility] 06-10-2021 11:16-0400 SaO2% (BldA) [Mass fraction] 98 % Blaine Silveira MD Work Phone: [facility] 06-10-2021 11:16-0400 Systolic blood pressure 148 mm[Hg] Blaine Silveira MD Work Phone: [facility] 06-06-2019 14:33-0400 BMI (Body Mass Index) 42.97 kg/m2 Blaine Silveira [facility] 06-06-2019 14:33-0400 Body weight 120.[address] [facility] 06-06-2019 14:33-0400 BP Diastolic 75 mm[Hg] Blaine Silveira [facility] 06-06-2019 14:33-0400 BP Systolic 159 mm[Hg] Blaine Silveira [facility] 06-06-2019 14:33-0400 Height 167.[address] [facility] 06-06-2019 14:33-0400 Pulse (Heart Rate) 71 /min Blaine Silveira [facility] 06-06-2019 14:33-0400 Pulse Oximetry 96 % Blaine Gato [facility] Encounters Encounter Date Encounter Type Care Provider Facility Start: 11-09-2023 End: 11-10-[address] [facility] Start: 11-04-2023 End: 11-05-2023 ambulatory [facility] Start: 11-02-2023 End: 11-03-[address] [facility] Start: 10-28-2023 End: 10-29-2023 ambulatory [facility] Start: 10-26-2023 End: 10-27-[address] [facility] Start: 10-21-2023 End: 10-22-2023 ambulatory JAV[facility] Start: 10-20-2023 End: 10-20-2023 ambulatory JASS PEPE [facility] Start: 10-20-2023 End: 10-20-2023 Office outpatient visit 25 minutes Blaine Silveira MD Work Phone: [facility] Procedures Date Procedure Procedure Detail Performing Clinician Start: 11-09-2023 FOLLOW UP IN PHYSICAL THERAPY JAVI AMEZCUA Start: 11-04-2023 FOLLOW UP IN PHYSICAL THERAPY JAVI AMEZCUA Start: 11-02-2023 FOLLOW UP IN PHYSICAL THERAPY JAVI AMEZCUA Start: 10-28-2023 FOLLOW UP IN PHYSICAL THERAPY JAVI AMEZCUA Start: 10-26-2023 FOLLOW UP IN PHYSICAL THERAPY JAVI MAEZCUA Start: 10-21-2023 FOLLOW UP IN PHYSICAL THERAPY JAVI AMEZCUA Start: 10-19-2023 FOLLOW UP IN PHYSICAL THERAPY JAVI AMEZCUA Start: 10-14-2023 FOLLOW UP IN PHYSICAL THERAPY JAVI AMEZCUA Start: 10-12-2023 FOLLOW UP IN PHYSICAL THERAPY JAVI AMEZCUA Start: 10-09-2023 FOLLOW UP IN PHYSICAL THERAPY JAVI AMEZCUA Start: 10-07-2023 FOLLOW UP IN PHYSICAL THERAPY JAVI AMEZCUA Start: 09-29-2023 AMB REFERRAL TO PHYS ICAL THERAPY JAVI AMEZCUA Start: 01-21-2023 Ecg routine ecg w/le ast 12 lds trcg only w/o i&r Angelica Claudia Dye [employer] Work Phone: Start: 02-19-2022 Ecg routine ecg w/le ast 12 lds trcg only w/o i&r Angelica Claudia Dye [employer] Work Phone: Start: 01-22-2022 Ecg routine ecg w/le ast 12 lds trcg only w/o i&r Angelica Claudia Dye [employer] Work Phone: Start: 01-22-2022 Basic metabolic pane l calcium total Angelica Claudia Dye [employer] Work Phone: Start: 01-21-2022 Potassium serum plas ma/whole blood Angelica Claudia Dye [employer] Work Phone: Start: 01-21-2022 Dup-scan lxtr art/ar tl bpgs uni/lmtd study Angelica Claudia Dye [employer] Work Phone: Start: 01-21-2022 Basic metabolic pane l calcium total Angelica Claudia Dye [employer] Work Phone: Start: 01-21-2022 Radiologic exam ches t single view Angelica Claudia Dye [employer] Work Phone: Start: 01-21-2022 Ecg routine ecg w/le ast 12 lds trcg only w/o i&r Angelica Claudia Dye [employer] Work Phone: Start: 01-21-2022 Cardiac catheterization Angelica Claudia Randall CNP Work Phone: Start: 01-21-2022 2D TTE w or w/o fol w/con,fu Mikaela Leal CNP Work Phone: Start: 01-21-2022 Sodium serum plasma or whole blood Lindsey Plummer MD Work Phone: Start: 01-21-2022 End: 01-21-2022 TRANSCATHETER AORTIC VALVE REPLACEMENT FEMORAL APPROACH Meir Arthur MD Work Phone: Start: 01-21-2022 Basic metabolic pane l calcium total Mikaela Leal CNP Work Phone: Start: 01-21-2022 Packed RBC preparation Mikaela Leal CNP Work Phone: Start: 01-09-2022 Ecg routine ecg w/le ast 12 lds trcg only w/o i&r Angelica Randall CNP Work Phone: Start: 06-10-2021 Ecg routine ecg w/le ast 12 lds w/i&r Blaine Silveira MD Work Phone: Start: 06-14-2019 Echocardiography Blaine Silveira Work Phone: Start: 06-06-2019 12 lead ECG Blaine prado Work Phone: Start: 01-05-2018 End: 01-05-2018 Tte w/doppler, complete Blaine malcolm Work Phone: Plan of Treatment Date Care Activity Detail Author Start: 11-07-2026 Tetanus vaccination [facility] Start: 09-13-2024 Fall risk assessment Falls Risk Asse [facility] Start: 2023 End: 2023 Admission to same day surgery center 2023 7:05 AM EST - 2023 9:08 AM EST Surgery [facility] [address] [place] [address] Jass Pepe MD [address] [place] [address] [id number] Right total knee replacement Robotic [facility] Payers Date Payer Category Payer Medicare MEDICARE MEDICAR E PART A & B [id number] 2019-Present [place] [id number] 2019 Medicare MEDICARE MEDICAR E PART A & B [id number] 2019-Present [phone] [employer] [id number] PART A CLAIMS [address] [address] [place] [address] [id number] 2019 Medicare [id number] 2019 Unknown [id number] 2000 Unknown [id number] 2.16.840.1.030184.3.249.13 2000 Unknown [facility] UHC/[employer]/[place] LDEN RULE xxxxxxxxx 2000-Present xxxxxxxxx [id number] .[id number] 1954 Unknown [id number] 2.16.840.1.236458.3.579.2.106 9 1954 Unknown [id number] 2.16.840.1.324564.3.579.2.106 9 1954 Unknown [id number] 2.16.840.1.938667.3.579.2.106 9 1954 Unknown [id number] 2.16.840.1.791969.3.579.2.106 9 1954 Unknown [id number] 2.16.840.1.156508.3.579.2.106 9 1954 Unknown [id number] 2.16.840.1.372279.3.579.2.106 9 1954 Unknown [id number] 2.16.840.1.051591.3.579.2.106 9 1954 Unknown [id number] 2.16.840.1.343711.3.579.2.106 9 1954 Unknown [id number] 2.16.840.1.584788.3.579.2.106 9 1954 Unknown [id number] 2.16.840.1.728864.3.579.2.106 9 1954 Unknown [id number] 2.16.840.1.527446.3.579.2.106 9 1954 Unknown [id number] 2.16.840.1.117795.3.579.2.106 9 1954 Unknown [id number] 2.16.840.1.818283.3.579.2.106 9 1954 Unknown [id number] 2.16.840.1.960086.3.579.2.106 9 1954 Unknown [id number] 2.16.840.1.859870.3.579.2.106 9 1954 Unknown [id number] 2.16.840.1.428804.3.579.2.106 9 1954 Unknown [id number] 2.16.840.1.009954.3.579.2.106 9 1954 Unknown [id number] 2.16.840.1.013617.3.579.2.106 9 1954 Unknown [id number] 2.16.840.1.491887.3.579.2.106 9 1954 Unknown [id number] 2.16.840.1.453587.3.579.2.106 9 1954 Unknown [id number] 2.16.840.1.901127.3.579.2.106 9 1954 Unknown [id number] 2.16.840.1.226296.3.579.2.106 9 1954 Unknown [id number] 2.16.840.1.603942.3.579.2.106 9 1954 Unknown [id number] 2.16.840.1.286501.3.579.2.106 9 1954 Unknown [id number] 2.16.840.1.284842.3.579.2.106 9 1954 Unknown [id number] 2.16.840.1.123171.3.579.2.106 9 1954 Unknown [id number] 2.16.840.1.259151.3.579.2.106 9 1954 Unknown [id number] 2.16.840.1.056605.3.579.2.106 9 1954 Unknown [id number] 2.16.840.1.635727.3.579.2.106 9 1954 Unknown [id number] 2.16.840.1.711140.3.579.2.106 9 1954 Unknown [id number] 2.16.840.1.693325.3.579.2.106 9 1954 Unknown [id number] 2.16.840.1.876329.3.579.2.106 9 1954 Unknown [id number] 2.16.840.1.981828.3.579.2.106 9 1954 Unknown [id number] 2.16.840.1.698258.3.579.2.106 9 1954 Unknown [id number] 2.16.840.1.386460.3.579.2.106 9 1954 Unknown [id number] 2.16.840.1.092662.3.579.2.106 9 1954 Unknown [id number] 2.16.840.1.233101.3.579.2.106 9 1954 Unknown [id number] 2.16.840.1.153703.3.579.2.900 1954 Unknown [id number] 2.16.840.1.945014.3.579.2.900 1954 Unknown [id number] 2.16.840.1.874169.3.579.2.902 1954 Unknown [id number] 2.16.840.1.950059.3.579.2.902 1954 Unknown [id number] 2.16.840.1.008353.3.579.2.902 1954 Unknown [id number] 2.16.840.1.157781.3.579.2.903 1954 Unknown [id number] 2.16.840.1.118224.3.579.2.903 1954 Unknown [id number] 2.16.840.1.579806.3.579.2.903 1954 Unknown [id number] 2.16.840.1.514250.3.579.2.903 1954 Unknown [id number] 2.16.840.1.234829.3.579.2.124 3 1954 Unknown [id number] 2.16.840.1.870395.3.579.2.124 3 1954 Unknown [id number] 2.16.840.1.739075.3.579.2.124 3 1954 Unknown [id number] 2.16.840.1.190777.3.579.2.124 3 1954 Unknown [id number] 2.16.840.1.698955.3.579.2.124 3 1954 Unknown [id number] 2.16.840.1.498874.3.579.2.124 3 1954 Unknown [id number] 2.16.840.1.854063.3.579.2.124 3 1954 Unknown [id number] 2.16.840.1.751190.3.579.2.124 3 1954 Unknown [id number] 2.16.840.1.026043.3.579.2.124 3 1954 Unknown [id number] 2.16.840.1.665765.3.579.2.124 3 1954 Unknown [id number] 2.16.840.1.025465.3.579.2.124 3 1954 Unknown [id number] 2.16.840.1.327253.3.579.2.124 3 Unknown COMMERCIAL COMME RCIAL MISCELLANEOUS [id number] Effective for all dates [id number] 1.2.840.240741.1.13.385.2.7.3 .085425.315 Unknown COMMERCIAL COMME RCIAL MISCELLANEOUS [id number] Effective for all dates [phone] [address] [address] [place] [address] [id number] Social History Date Type Detail Facility Start: 06-08-2017 End: 01-21-2023 Tobacco smoking status AKIS Never smoker [facility] Start: 1955 Sex Assigned At Not on file [facility] Work Phone: Start: 06-06-2019 [facility] Start: 06-11-2020 End: 01-21-2023 Tobacco use and exposure Never used [facility] Start: 06-11-2020 End: 10-20-2023 Alcohol intake Current drinker of alcohol (finding) [facility] Start: 06-10-2021 End: 09-14-[address] [facility] Start: 01-11-2022 End: 01-21-2023 Exposure to SARS-CoV-2 (event) Not sure [facility] Start: 09-14-[address] [facility] Start: 06-06-2019 Gender identity Identifies as female gender (finding) [facility] Start: 06-06-2019 Sexual orientation Heterosexual (finding) [facility] Medical Equipment Procedure Code Equipment Code Equipment Origin al Text Equipment Identifier Dates Closure 6fr Angioseal Vip - [id number] Start: 01-15-2022 Closure Perclose Prostyle - [id number] Start: 01-21-2022 Valve 34mm Evolu t Pro Aortic - [id number] FDA Start: 01-21-2022 Hemostat 2 X 4in Surgicel Snow Sterl - [id number] Start: 01-21-2022 Clinical Notes 06-10-2021 to 10-20-2023 Assessment & Plan Note - Blaine Silveira MD - 10/20/2023 1:56 PM Blaine Johnson MD - 10/20/2023 1:56 PM Hazel Randall CNP - 01/21/2023 2:30 PM ESTPatient Instructions Note Date & Type Note Facility 10-20-2023 Evaluation + Plan note Associated Problem(s): Severe aortic insufficiency Doing well from Tavr standpoint Should be low cardiac for surgery from coronary and Valve Would suggest a pre op Pulmonary consult just to be sure from her fibrosing mediastinitis history Also would continue asa through surgery [facility] 10-20-2023 History of Presen t illness Narrative Patient Name: Vickie Gonzalez [facility] MR #: [id number] General Cardiology Blaine Silveira MD, [facility] 10/20/23 Dear Nicol Ibanez MD, Vickie Gonzalez was seen in follow up for : Problem Coronary Artery Disease Involving [place] Coronary Artery of [place] Heart Without Angina Pectoris CABG 2000 Cath 2010 all grafts open 12/2021- Pat Dye/Missy Severe Aortic Insufficiency EVOLUT 34mm via R RAC SPECIALIST. 01/21/222022 2 D cardiac echocardiogram looked good Medical Decision Making Severe aortic insufficiency Doing well from Tavr standpoint Should be low cardiac for surgery from coronary and Valve Would suggest a pre op Pulmonary consult just to be sure from her fibrosing mediastinitis history Also would continue asa through surgery Thank you or allowing me to participate in the care of your patients. No orders of the defined types were placed in this encounter. Return in about 1 year (around 10/20/2024). EKG:not done Subjective: Vickie Gonzalez is a 67 y.o. y/o female : doing well, also needs pre op eval I independently reviewed previous echo which I had not reviewed before and agree with the interpretations. Denies chest discomfort, sob, palpitations, pnd, orthopnea,edema or syncope. Past History and Exam PMH: Past Medical History: Diagnosis Date Asthma Chest pain Fibrosing mediastinitis Hiatal hernia History of cardiac cath 12/2021 HTN (hypertension) Leg weakness Numbness in both legs Open wound punture from heart cath Periaortic mass benign Skin cancer SOB (shortness of breath) on exertion Physical exam: BP (!) 156/91 (BP Location: Right arm, Patient Position: Sitting, BP Cuff Size: X-large Adult) Pulse 74 Ht 5' 7 Wt 108 kg (238 lb) SpO2 97% BMI 37.28 kg/m NSR on rhythm strip General: No acute distress, alert, and oriented x3. Cardiovascular: regular rate and rhythm. Soft sys murmurs, .No JVD, No Carotid Bruits, chronic venous changes LE edema :Respiratory: Clear to auscultation bilaterally without wheezes, rhonchi, or rales Abdominal: soft, nontender, nondistended,no gross HSM or masses noted. Home Medications: Patient's Medications New Prescriptions No medications on file Previous Medications ASPIRIN 81 MG EC TABLET Take 1 (one) tablet (81 mg total) by mouth daily . B COMPLEX VITAMINS TABLET Take 1 (one) tablet by mouth daily . [id number] ORAL Take 1 tablet by mouth daily . CHOLECALCIFEROL, VITAMIN D3, 50 MCG (2,000 UNIT) CAP Take 1 (one) capsule by mouth daily . DIPHENHYDRAMINE (BENADRYL) 25 MG TABLET Take 1 (one) tablet (25 mg total) by mouth nightly . LACTOBACILLUS COMBO NO.11 (PROBIOTIC) 15 BILLION CELL CPSP Take by mouth daily . LOSARTAN (COZAAR) 100 MG TABLET Take 1 (one) tablet (100 mg total) by mouth nightly . METOPROLOL SUCCINATE (TOPROL-XL) 50 MG 24 HR TABLET Take 1 (one) tablet (50 mg total) by mouth daily . MONTELUKAST (SINGULAIR) 10 MG TABLET Take 1 (one) tablet (10 mg total) by mouth nightly . OMEPRAZOLE (PRILOSEC) 20 MG CAPSULE Take 1 (one) capsule (20 mg total) by mouth daily . PRAVASTATIN (PRAVACHOL) 40 MG TABLET Take 1 (one) tablet (40 mg total) by mouth nightly . Modified Medications No medications on file Discontinued Medications No medications on file documented in this encounter [facility] 10-20-2023 Miscellaneous Notes Associated Problem(s): Severe aortic insufficiency Doing well from Tavr standpoint Should be low cardiac for surgery from coronary and Valve Would suggest a pre op Pulmonary consult just to be sure from her fibrosing mediastinitis history Also would continue asa through surgery documented in this encounter [facility] 01-21-2023 History of Presen t illness Narrative [facility] 1 year TAVR follow up Patient Name: Vickie Gonzalez Admit Date: MR #: [id number] : 1955 Physicians: Nicol Ibanez MD (Family) Assessment and Plan:Pleasant 67yo female s/p TAVR with 34mm Evolut Pro Plus via RFA on 01/21/22 who presents for 1 year TAVR follow up. She has done well over the last year with improvement in activity tolerance and quality of life. She is able to do all activities without any limiting symptoms. She is euvolemic on exam, NYHA Class I by symptoms. TTE shows an LVEF 60% with mean aortic gradient 6mmHg and no AI. RVSP 50mmHg. ECG with NSR With 1st degree AVB. She does describe heart palpitations when under stress or anxiety. Discussed an event monitor to capture events but she declines at this time. Discussed adequate hydration and limiting of caffeine. If labwork without significant abnormalities, she will be discharged from the [facility]. 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 Hypertension, hypertensive today in the office but home readings are significantly lower ranging between 120-140 systolic. Have asked her to track BP three times a week over the next 2 weeks and notify [facility] if systolic greater than 150 consistently. Chief Complaint/Reason for Visit: 1 year TAVR follow up History of Present Illness: Vickie Gonzalez is a 67 y.o. y/o female with a history of atherosclerotic coronary artery disease s/p CABG with DYE to LAD, MISSY [place] RCA [place] [address] 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 Silveira for known AI. Over the summer she began experiencing jaw discomfort with chest pain with exertion, relieved with rest. She has limited her activity level since that time. She underwent a repeat TTE which showed an LVEF 55% with severe aortic stenosis with mean aortic gradient 48mmHg, peak aortic velocity 4.8m/sec with severe AI, mild MR, mild TR and RVSP 46mmHg. Last cardiac catheterization in 2010 showed patent DYE and MISSY with 100% occluded RCA and LM. She was reviewed in conference and deemed an appropriate TAVR candidate. She underwent cardiac catheterization prior to TAVR which showed patent DYE/MISSY and occluded LM and RCA. On 01/21/22 she underwent TAVR with 34mm Evolut Pro Plus via RFA. She recovered well in PACU and was transferred to the floor where she continued to make steady progress. ECG with NSR with 1st degree AVB, no events overnight on telemetry. She was discharged home on POD 1 in stable condition. Over the last year, she has noticed a significant improvement in activity tolerance, quality of life. Cough is only occurring in the morning now. She is walking regularly. She denies SOB, BERRY, PND, orthopnea, LE edema. She has had no hospital readmissions. She presents for 1 year TAVR follow up. History: Past Medical History: Diagnosis Date Asthma Chest pain Fibrosing mediastinitis Hiatal hernia History of cardiac cath 12/2021 HTN (hypertension) Leg weakness Numbness in both legs Open wound punture from heart cath Periaortic mass benign Skin cancer SOB (shortness of breath) on exertion Past Surgical History: Procedure Laterality Date CABG 02/11/2001 x3 CARDIAC CATHETERIZATION 2012 CARDIAC CATHETERIZATION Left 02/10/2001 EF 60% CARDIAC CATHETERIZATION Bilateral 08/26/2011 EF 55% CARDIAC CATHETERIZATION N/A 01/21/2022 Procedure: Transcatheter Aortic Valve Replacement; Surgeon: Lindsey Plummer MD; Location: [facility] [place] [facility]; Service: Cardiovascular CARDIAC CATHETERIZATION N/A 01/21/2022 Procedure: Angiogram - Aortic Root; Surgeon: Lindsey Plummer MD; Location: [facility] [place] [facility]; Service: Cardiovascular CARDIAC CATHETERIZATION N/A 01/21/2022 Procedure: Temporary Pacemaker; Surgeon: Lindsey Plummer MD; Location: [facility] [place] [facility]; Service: Cardiovascular CARDIAC CATHETERIZATION N/A 01/21/2022 Procedure: Valvuloplasty - Aortic Valve; Surgeon: Lindsey Plummer MD; Location: [facility] [place] [facility]; Service: Cardiovascular HC LEFT HEART CATH N/A 01/15/2022 Procedure: LEFT HEART CATH; Surgeon: Silvio Mckeon MD; Location: [facility] [place] SEVERITY OF ILLNESS COORDINATOR; Service: Cardiovascular TAVR FEMORAL APPROACH N/A 01/21/2022 Procedure: TRANSCATHETER AORTIC VALVE REPLACEMENT FEMORAL APPROACH; Surgeon: Meir Arthur MD; Location: [facility] [place] [facility]; Service: Cardiothoracic TOTAL KNEE ARTHROPLASTY Left No family history on file. Social History Socioeconomic History Marital status: Tobacco Use Smoking status: Never Smokeless tobacco: Never Vaping Use Vaping Use: Never used Substance and Sexual Activity Alcohol use: Yes Alcohol/week: 0.0 standard drinks Comment: occasional Drug use: No Allergy Information: I have reviewed the patient's allergies. Levaquin [levofloxacin] and Naprosyn [naproxen] Home Medications: Prior to Admission medications Medication Sig Start Date End Date Taking? Authorizing Provider albuterol 90 mcg/actuation inhaler Inhale 2 (two) puffs every 6 (six) hours as needed for wheezing . Yes Historical Provider, aspirin 81 MG EC tablet Take 1 (one) tablet (81 mg total) by mouth daily . Yes Historical Provider, b complex vitamins tablet Take 1 (one) tablet by mouth daily . Yes Historical Provider, [id number] ORAL Take 1 tablet by mouth daily . Yes Historical Provider, cholecalciferol, vitamin D3, 50 mcg (2,000 unit) cap Take 1 (one) capsule by mouth daily . Yes Historical Provider, diphenhydrAMINE (BENADRYL) 25 mg tablet Take 1 (one) tablet (25 mg total) by mouth nightly . Yes Historical Provider, fluticasone propionate (FLONASE) 50 mcg/actuation nasal spray Instill 2 (two) sprays into each nostril daily as needed for allergies . Yes Historical Provider, lactobacillus combo no.11 (Probiotic) 15 billion cell CpSP Take by mouth daily . Yes Historical Provider, losartan (COZAAR) 100 MG tablet Take 1 (one) tablet (100 mg total) by mouth nightly . Yes Historical Provider, metoprolol succinate (TOPROL-XL) 50 MG 24 hr tablet Take 1 (one) tablet (50 mg total) by mouth daily . 06/10/19 Yes Blaine Silveira MD montelukast (SINGULAIR) 10 mg tablet Take 1 (one) tablet (10 mg total) by mouth nightly . Yes Historical Provider, nitroGLYCERIN (NITROSTAT) 0.[address] 1 (one) tablet (0.4 mg total) under the tongue every 5 (five) minutes as needed for chest pain , if no relief after 3 doses call 911 . 06/11/21 Yes Blaine Silveira MD pravastatin (PRAVACHOL) 40 MG tablet Take 1 (one) tablet (40 mg total) by mouth nightly . 10/27/18 Yes Blaine Silveira MD omeprazole (PRILOSEC) 20 MG capsule Take 1 (one) capsule (20 mg total) by mouth daily . 12/08/22 Historical ProviderMD loratadine (CLARITIN) 10 mg tablet Take 10 mg by mouth daily as needed . 01/21/23 Historical Provider, Current Medications: Review of Systems: The following system(s) were reviewed and pertinent findings noted: Constitutional: denies fever, chills denies weakness, fatigue denies weight changes CV: denies chest pain, admits to palpitations, denies syncope or near syncope Resp: denies shortness of breath, denies dyspnea on exertion, denies cough or wheeze, denies hemoptysis GI: denies nausea, vomiting, constipation or diarrhea. denies blood in stool or black tarry stools. denies hematuria Musc: denies joint pain or swelling, denies lower extremity edema Neuro: denies TIA, CVA. Physical Examination: Vital Signs: BP (!) 198/84 (BP Location: Right arm, Patient Position: Sitting, BP Cuff Size: Adult) Pulse 67 Temp 98 F (36.7 C) (Oral) Resp 16 Ht 5' 6 Wt 108.9 kg (240 lb 2 oz) SpO2 98% BMI 38.76 kg/m General: Alert, cooperative, no distress, appears stated age Head: Normocephalic, without obvious abnormality, atraumatic Eyes: PERRL, conjunctiva/corneas clear, EOM's intact, fundi benign both eyes Throat: Lips, mucosa, and tongue normal; teeth and gums normal Neck: Supple, symmetrical, trachea midline, no adenopathy; thyroid: no enlargement/tenderness/nodules; no carotid bruit or JVD Back: Symmetric, no curvature, ROM normal, no CVA tenderness Lungs: Clear to auscultation bilaterally, respirations unlabored,normal respiratory effort Chest Wall: No tenderness or deformity Cardiovascular: Regular rate and rhythm, S1 and S2 normal, no murmur, rub or gallop; Pulses 2+ and symmetric all extremities Abdomen: Soft, non-tender, bowel sounds active all four quadrants,no masses, no organomegaly Extremities: Normal, atraumatic, no cyanosis or edema Skin: Skin color, texture, turgor normal, no rashes or lesions Musculoskeletal: Full range of motion of all extremities; no joint edema Neurologic: CNII-XII intact; normal strength, sensation and reflexes throughout Psych: Mood and affect appropriate Laboratory and Additional Data Reviewed: Laboratory 01/21/23 2:41 PM Microbiology 01/21/23 2:41 PM Pathology 01/21/23 2:41 PM Radiology 01/21/23 2:41 PM Cardiology 01/21/23 2:41 PM Medications 01/21/23 2:41 PM Transcriptions 01/21/23 2:41 PM Lab Results Component Value Date WBC 7.02 02/19/2022 HGB 12.1 02/19/2022 HCT 38.5 02/19/2022 MCV 90.4 02/19/2022 PLT 229 02/19/2022 RBC 4.26 02/19/2022 Lab Results Component Value Date GLUCOSE 89 02/19/2022 CALCIUM 9.9 02/19/2022 NA 139 02/19/2022 K 4.7 02/19/2022 CL 103 02/19/2022 BUN 16 02/19/2022 CREATININE 0.79 02/19/2022 Lab Results Component Value Date HGBA1C 6.1 (H) 01/09/2022 @[id number]@ Echocardiogram complete Result Date: 01/21/2023 Patient Info Name: VICKIE GONZALEZ Age: 67 years : 1955 Gender: Female Ht: 167 cm Wt: 105 kg BSA: 2.26 m2 HR: 1 bpm BP: 157 / 89 mmHg Technical Quality: Fair Exam Date: 01/21/2023 9:06 AM Patient Status: Outpatient Director Sales Training: Shirin Rabago, MILLER, RDCS (PE, AE) Exam Type: ECHOCARDIOGRAM COMPLETE Study Info Indications - Valve disease/murmur Attending Physician: ANGELICA RANDALL Referring Physician: [id number]; [id number] BMI: 37.73 kg/m2 Summary 1. Left ventricular systolic function is normal with an ejection fraction of 60%. 2. A 34 mm Medtronic Evolut Pro TAVR valve is well-seated in the aortic annulus. 3. Mean aortic valve gradient of 6 mm Hg. 4. There is no aortic valve regurgitation. 5. The proximal ascending aorta is borderline dilated measuring 3.9 cm with an index of 1.7 cm/m2. 6. There is moderate tricuspid valve regurgitation. 7. There is pulmonary hypertension, estimated right ventricle systolic pressure is 50 mmHg. 8. Right atrial chamber dimension is severely enlarged. 9. Left atrial chamber is mildly enlarged with a left atrial volume index of 34 ml/m2 by BP MOD. 10. Right ventricular systolic function is normal on visual assessment, however appears mildly reduced on quantitative assessment. 11. Septal wall motion abnormality consistent with cardiac surgery. History/Risk Factors Hypertension: Yes Dyslipidemia: Yes Coronary Artery Disease (CAD) Yes Diabetes Mellitus: No COPD: No Tobacco Use: Never Valve Disease - AV: Moderate History/Risk Factors Patient has a history of S/P TAVR, , valve disease, root dilation, asthma, CP, hypertension, hyperlipidemia, CAD and obesity. Patient has prior CABG. Prior Interventions CABG: Yes Procedure(s): Complete two-dimensional, color flow and Doppler transthoracic echocardiogram is performed. Left Ventricle Left ventricular chamber dimension is normal. Left ventricular systolic function is normal with an ejection fraction of 60%. Left ventricular segmental wall motion is normal. The left ventricular diastolic function is indeterminate. Septal wall motion abnormality consistent with cardiac surgery. Right Ventricle Right ventricular chamber dimension is normal. Right ventricular systolic function is normal on visual assessment, however appears mildly reduced on quantitative assessment. Left Atria Left atrial chamber is mildly enlarged with a left atrial volume index of 34 ml/m2 by BP MOD. Right Atria Right atrial chamber dimension is severely enlarged. Aortic Valve Mean aortic valve gradient of 6 mm Hg. There is no aortic valve regurgitation. A 34 mm Medtronic Evolut Pro TAVR valve is well-seated in the aortic annulus. Pulmonic Valve The pulmonic valve is normal. There is no pulmonic valve stenosis. There is trace pulmonic regurgitation. Mitral Valve The mitral valve has calcified annulus. There is no mitral valve stenosis. Mean gradient 3 mm Hg. There is trace mitral valve regurgitation. Tricuspid Valve The tricuspid valve leaflets are normal. There is no significant tricuspid valve stenosis. There is moderate tricuspid valve regurgitation. There is pulmonary hypertension, estimated right ventricle systolic pressure is 50 mmHg. Pericardium/Pleural There is no pericardial effusion. Inferior Vena Cava Normal inferior vena cava with >50% collapse upon inspiration consistent with normal right atrial pressure. Aorta The aortic measurements are indexed to age and body surface area. The aortic root is normal measuring 3.0 cm with an index of 1.3 cm/m2. The proximal ascending aorta is borderline dilated measuring 3.9 cm with an index of 1.7 cm/m2. Left Ventricular Outflow Tract -------- Name Value Normal -------- LVOT 2D -------- LVOT Diameter 2.0 cm LVOT Doppler -------- LVOT Peak Velocity 0.8 m/s LVOT Mean Gradient 1 mmHg LVOT VTI 17 cm LVOT VTI/AV VTI Ratio 0.4 LVOT Stroke Volume 54 ml LVOT Stroke Index 23.93 ml/m2 Pulmonic Valve -------- Name Value Normal -------- PV Regurgitation Doppler -------- NJ Peak End Diastolic Velocity 128 cm/s Mitral Valve -------- Name Value Normal -------- MV Doppler -------- MV Peak Velocity 1.27 m/s MV Mean Gradient 3 mmHg MV PHT 58 ms MV Area (PHT) 3.8 cm2 4.0-5.0 MV Area (Cont Eq VTI) 1.9 cm2 MV Diastolic Function -------- MV E Peak Velocity 1.14 m/s MV A Peak Velocity 1.02 m/s MV E/A 1.1 MV Decel Time 201 ms MV Annular TDI -------- MV Septal e' Velocity 3.7 cm/s >=8.0 MV E/e' (Septal) 30.8 <=8.0 MV Lateral e' Velocity 12.3 cm/s >=10.0 MV E/e' (Lateral) 9.3 <=8.0 MV e' Average 8.00 cm/s MV E/e' (Average) 20.0 Tricuspid Valve -------- Name Value Normal -------- TV Regurgitation Doppler -------- TR Peak Velocity 3.35 m/s Estimated PAP/RSVP -------- PA Systolic Pressure 50 mmHg <=36 Aorta -------- Name Value Normal -------- Ascending Aorta -------- Ao Root Diameter (2D) 3.0 cm 2.7-3.3 Ao Root Diam Index (2D) 1.3 cm/m2 1.6-2.0 Prox Asc Ao Diameter 3.9 cm 2.3-3.1 Prox Asc Ao Diameter Index 1.7 cm/m2 1.3-1.9 Aortic Valve -------- Name Value Normal -------- AV 2D/MM -------- AV Cusp Sep (MM) 1.2 cm AV Doppler -------- AV Peak Velocity 1.7 m/s AV Mean Gradient 6 mmHg AV VTI 40 cm AV Area (Cont Eq VTI) 1.4 cm2 AV Area (Cont Eq Alvarez) 1.4 cm2 LVOT Vmax/AV Vmax 0.45 LVOT VTI/AV VTI Ratio 0.4 AV Regurgitation 2D -------- LVOT Area 3.1 cm2 Ventricles -------- Name Value Normal -------- LV Dimensions 2D/MM -------- IVS Diastolic Thickness (2D) 1.2 cm 0.6-0.9 LVID Diastole (2D) 5.0 cm 3.8-5.2 LVIW Diastolic Thickness (2D) 1.0 cm 0.6-0.9 LVID Systole (2D) 3.1 cm 2.2-3.5 LVOT Diameter 2.0 cm LV Mass (2D Cubed) 215.09 g 67.00-162.00 LV Mass Index (2D Cubed) 95 g/m2 43-95 Relative Wall Thickness (2D) 0.40 <=0.42 LV Fractional Shortening/Ejection Fraction 2D/MM -------- LV Fractional Shortening (2D) 39 % 27-45 LV Diastolic Volume (4C MOD) 161 ml LV Diastolic Length (4C) 9.0 cm LV Systolic Length (4C) 7.6 cm LV Stroke Volume (4C MOD) 95 ml RV Dimensions 2D/MM -------- TAPSE 1.0 cm >=1.7 RV Systolic Function -------- RV s' Velocity 0.06 m/s 0.10-0.19 Atria -------- Name Value Normal -------- LA Dimensions -------- LA Dimension (2D) 4.5 cm 2.7-3.8 LA Dimen Index (2D) 2.0 cm/m2 LA Volume (4C A-L) 90 ml LA Volume (BP A-L) 84 ml LA Volume Index (BP A-L) 37 ml/m2 <=34 LA Volume (BP MOD) 78 ml LA Volume Index (BP MOD) 34 ml/m2 16-34 RA Dimensions -------- RA Area (4C) 31.8 cm2 <=18.0 QLAB -------- Name Value Normal -------- Triplane -------- AP2 Triplane -19.0 % AP3 Triplane -16.4 % AP4 Triplane -19.4 % GLS Triplane -18.2 % Report Signatures Finalized by Cat Carmichael MD on 01/21/2023 10:15 AM documented in this encounter [facility] 01-19-2023 Note Addended by: TERRIE RUSSO on: 01/19/2023 06:49 AM Modules accepted: Orders [facility] 01-19-2023 Miscellaneous Notes Addended by: TERRIE OH on: 01/19/2023 06:49 AM Modules accepted: Orders documented in this encounter [facility] 02-19-2022 History of Presen t illness Narrative [facility] 30 DAY TAVR FOLLOW UP Patient Name: Vickie Gonzalez Admit Date: MR #: [id number] : 1955 Physicians: Nicol Ibanez MD (Family) Assessment and Plan: Pleasant 66yo female s/p TAVR with 34mm Evolut Pro Plus via RFA on 01/21/22 who presents for 30 day TAVR follow up. She has done well since TAVR with significant improvement in activity tolerance and quality of life. She is euvolemic on exam, NYHA Class I by symptoms. She is walking regularly without complaints and plans to start cardiac rehab. Blood pressure at home and at cardiac rehab is well-controlled, no medication changes made today. Wounds are well-healed. ECG shows NSR with 1st degree AV block. She remains on DAPT for 90 days post TAVR with aspirin indefinitely thereafter. TTE and labwork results pending but if no significant abnormalities, her next follow up appt will be 1 year post TAVR. Chief Complaint/Reason for Visit: 30 day TAVR follow up History of Present Illness: Vickie Gonzalez is a 66 y.o. y/o female with a history of atherosclerotic coronary artery disease s/p CABG with DYE to LAD, MISSY [place] RCA [place] [address] 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 Silveira for known AI. Over the summer she began experiencing jaw discomfort with chest pain with exertion, relieved with rest. She has limited her activity level since that time. She admits to dyspnea on exertion, worsening cough, occasional lightheadedness. She denies LE edema, orthopnea, PND, hospital admissions for heart failure. She underwent a repeat TTE which showed an LVEF 55% with severe aortic stenosis with mean aortic gradient 48mmHg, peak aortic velocity 4.8m/sec with severe AI, mild MR, mild TR and RVSP 46mmHg. Last cardiac catheterization in 2010 showed patent DYE and MISSY with 100% occluded RCA and LM. She was reviewed in SH conference and deemed an appropriate TAVR candidate. She underwent cardiac catheterization prior to TAVR which showed patent DYE/MISSY and occluded LM and RCA. On 01/21/22 she underwent TAVR with 34mm Evolut Pro Plus via RFA. She recovered well in PACU and was transferred to the floor where she continued to make steady progress. ECG with NSR with 1st degree AVB, no events overnight on telemetry. She was discharged home on POD 1 in stable condition. Since discharge she has noticed a significant improvement in activity tolerance, quality of life. Cough is only occurring in the morning now. She is walking 30 minutes a day. She denies SOB, BERRY, PND, orthopnea, LE edema. She has had no hospital readmissions. She presents for 30 day TAVR follow up. History: Past Medical History: Diagnosis Date Asthma Chest pain Fibrosing mediastinitis Hiatal hernia History of cardiac cath 12/2021 HTN (hypertension) Leg weakness Numbness in both legs Open wound punture from heart cath Periaortic mass benign Skin cancer SOB (shortness of breath) on exertion Past Surgical History: Procedure Laterality Date CABG 02/11/2001 x3 CARDIAC CATHETERIZATION 2012 CARDIAC CATHETERIZATION Left 02/10/2001 EF 60% CARDIAC CATHETERIZATION Bilateral 08/26/2011 EF 55% CARDIAC CATHETERIZATION N/A 01/21/2022 Procedure: Transcatheter Aortic Valve Replacement; Surgeon: Lindsey Plummer MD; Location: [facility]; Service: Cardiovascular CARDIAC CATHETERIZATION N/A 01/21/2022 Procedure: Angiogram - Aortic Root; Surgeon: Lindsey Plummer MD; Location: [facility]; Service: Cardiovascular CARDIAC CATHETERIZATION N/A 01/21/2022 Procedure: Temporary Pacemaker; Surgeon: Lindsey Plummer MD; Location: [facility]; Service: Cardiovascular CARDIAC CATHETERIZATION N/A 01/21/2022 Procedure: Valvuloplasty - Aortic Valve; Surgeon: Lindsey Plummer MD; Location: [facility] [place]; Service: Cardiovascular HC LEFT HEART CATH N/A 01/15/2022 Procedure: LEFT HEART CATH; Surgeon: Silvio Mckeon MD; Location: [facility] SEVERITY OF ILLNESS COORDINATOR; Service: Cardiovascular TAVR FEMORAL APPROACH N/A 01/21/2022 Procedure: TRANSCATHETER AORTIC VALVE REPLACEMENT FEMORAL APPROACH; Surgeon: Meir Arthur MD; Location: [facility] [place] [facility]; Service: Cardiothoracic TOTAL KNEE ARTHROPLASTY Left No family history on file. Social History Socioeconomic History Marital status: Tobacco Use Smoking status: Never Smoker Smokeless tobacco: Never Used Vaping Use Vaping Use: Never used Substance and Sexual Activity Alcohol use: Yes Alcohol/week: 0.0 standard drinks Comment: occasional Drug use: No Allergy Information: I have reviewed the patient's allergies. Levaquin [levofloxacin] and Naprosyn [naproxen] Home Medications: Prior to Admission medications Medication Sig Start Date End Date Taking? Authorizing Provider albuterol 90 mcg/actuation inhaler Inhale 2 puffs every 6 (six) hours as needed for wheezing. Yes Historical Provider, aspirin 81 MG EC tablet Take 81 mg by mouth every other day . Yes Historical Provider, b complex vitamins tablet Take 1 tablet by mouth daily . Yes Historical Provider, VJOEXBS-LKBKEKWQU-YMST ORAL Take 1 tablet by mouth daily . Yes Historical Provider, cholecalciferol, vitamin D3, 50 mcg (2,000 unit) cap Take 2,000 Units by mouth daily . Yes Historical Provider, clopidogreL (PLAVIX) 75 mg tablet Take 1 (one) tablet (75 mg total) by mouth daily . 01/22/22 04/22/22 Yes Angelica Randall, RAMO diphenhydrAMINE (BENADRYL) 25 mg tablet Take 25 mg by mouth nightly . Yes Historical Provider, fluticasone propionate (FLONASE) 50 mcg/actuation nasal spray Instill 2 sprays into each nostril daily as needed for allergies . Yes Historical Provider, lactobacillus combo no.11 (Probiotic) 15 billion cell CpSP Take by mouth daily . Yes Historical Provider, loratadine (CLARITIN) 10 mg tablet Take 10 mg by mouth daily . Yes Historical Provider, losartan (COZAAR) 100 MG tablet Take 100 mg by mouth nightly . Yes Historical Provider, metoprolol succinate (TOPROL-XL) 50 MG 24 hr tablet Take 1 (one) tablet (50 mg total) by mouth daily . 06/10/19 Yes Blaine Silveira MD montelukast (SINGULAIR) 10 mg tablet Take 10 mg by mouth nightly . Yes Historical Provider, pravastatin (PRAVACHOL) 40 MG tablet Take 1 (one) tablet (40 mg total) by mouth nightly . 10/27/18 Yes Blaine Silveira MD nitroGLYCERIN (NITROSTAT) 0.[address] 1 (one) tablet (0.4 mg total) under the tongue every 5 (five) minutes as needed for chest pain , if no relief after 3 doses call 911 . 06/11/21 Blaine Silveira MD Current Medications: Review of Systems: The following system(s) were reviewed and pertinent findings noted: Constitutional: denies fever, chills denies weakness, fatigue denies weight changes CV: denies chest pain, denies palpitations, deneis syncope or near syncope Resp: denies shortness of breath, denies dyspnea on exertion, denies cough or wheeze, denies hemoptysis GI: denies nausea, vomiting, constipation or diarrhea. denies blood in stool or black tarry stools. denies hematuria Musc: denies joint pain or swelling, denies lower extremity edema Neuro: denies TIA, CVA. Physical Examination: Vital Signs: BP (!) 148/85 Pulse 69 Temp 97.7 F (36.5 C) Resp 16 Ht 5' 6 Wt 103.9 kg (229 lb 0.9 oz) SpO2 98% BMI 36.97 kg/m General: Alert, cooperative, no distress, appears stated age Head: Normocephalic, without obvious abnormality, atraumatic Eyes: PERRL, conjunctiva/corneas clear, EOM's intact, fundi benign both eyes Throat: Lips, mucosa, and tongue normal; teeth and gums normal Neck: Supple, symmetrical, trachea midline, no adenopathy; thyroid: no enlargement/tenderness/nodules; no carotid bruit or JVD Back: Symmetric, no curvature, ROM normal, no CVA tenderness Lungs: Clear to auscultation bilaterally, respirations unlabored,normal respiratory effort Chest Wall: No tenderness or deformity Cardiovascular: Regular rate and rhythm, S1 and S2 normal, no murmur, rub or gallop; Pulses 2+ and symmetric all extremities Abdomen: Soft, non-tender, bowel sounds active all four quadrants,no masses, no organomegaly Extremities: Normal, atraumatic, no cyanosis or edema Skin: Skin color, texture, turgor normal, no rashes or lesions Musculoskeletal: Full range of motion of all extremities; no joint edema Neurologic: CNII-XII intact; normal strength, sensation and reflexes throughout Psych: Mood and affect appropriate Laboratory and Additional Data Reviewed: Laboratory 02/19/22 12:38 PM Microbiology 02/19/22 12:38 PM Pathology 02/19/22 12:38 PM Radiology 02/19/22 12:38 PM Cardiology 02/19/22 12:38 PM Medications 02/19/22 12:38 PM Transcriptions 02/19/22 12:38 PM Lab Results Component Value Date WBC 5.53 01/22/2022 HGB 10.4 (L) 01/22/2022 HCT 33.2 (L) 01/22/2022 MCV 86.9 01/22/2022 PLT 176 01/22/2022 RBC 3.82 (L) 01/22/2022 Lab Results Component Value Date GLUCOSE 90 01/22/2022 CALCIUM 8.8 01/22/2022 NA 139 01/22/2022 K 4.3 01/22/2022 CL 104 01/22/2022 BUN 10 01/22/2022 CREATININE 0.75 01/22/2022 Lab Results Component Value Date HGBA1C 6.1 (H) 01/09/2022 @[id number]@ ECG 12 Lead Result Date: 01/22/2022 Sinus rhythm with 1st degree AV block Otherwise normal ECG Confirmed by SONA SEGURA MD ([id number]) on 01/22/2022 9:10:34 AM ECG 12 Lead Result Date: 01/22/2022 Sinus rhythm with 1st degree AV block Nonspecific T wave abnormality Abnormal ECG When compared with ECG of 21-JAN-2022 12:50, (unconfirmed) No significant change was found Confirmed by SONA SEGURA MD ([id number]) on 01/22/2022 9:08:00 AM Cardiac Catheterization Result Date: 02/04/2022 Impression: Successful TAVR with a 34mm Medtronic Evolute prosthesis. Pre delivery BAV performed with a 25mm TRUE balloon. Recommendations: Continue aspirin 81 mg daily indefinitely and clopidogrel for 6 months Follow-up in structural heart clinic per protocol. XR Chest 1 View Result Date: 01/21/2022 EXAMINATION: ONE XRAY VIEW OF THE CHEST 01/21/2022 12:26 pm COMPARISON: 01/09/2022 HISTORY: ORDERING SYSTEM PROVIDED HISTORY: s/p TAVR; TECHNOLOGIST PROVIDED HISTORY: Illness/Other Acuity: Acute Reason for Exam: s/p TAVR Cancer History: / Surgery, Radiation History: / Type of Encounter: Initial Additional signs and symptoms: none ORDERING SYSTEM PROVIDED DIAGNOSIS CODES: Z95.2 S/P TAVR (transcatheter aortic valve replacement) FINDINGS: Status post TAVR. Cardiomegaly. Pulmonary vascular congestion. Evidence for pulmonary edema. No focal airspace disease. No pneumothorax Status post TAVR Cardiomegaly pulmonary vascular congestion and edema Workstation ID: [id number] Echocardiogram limited with contrast Result Date: 01/21/2022 Patient Info Name: VICKIE GONZALEZ Age: 66 years : 1955 Gender: Female Ht: 168 cm Wt: 102 kg BSA: 2.22 m2 BP: 144 / 57 mmHg Technical Quality: Fair Exam Date: 01/21/2022 12:12 PM Patient Status: Outpatient Director Sales Training: Jolanta Klein RDCS, RVT Exam Type: ECHOCARDIOGRAM LIMITED WITH CONTRAST Study Info Indications - INTRAOP TAVR Attending Physician: LINDSEY PLUMMER Referring Physician: [id number] Chase; [id number] BMI: 36.32 kg/m2 Summary 1. Limited two-dimensional, Doppler interrogation and color flow transthoracic echocardiogram is performed. 2. Focused views were performed in the invasive procedure laboratory to guide placement of transcatheter aortic valve (TAVR). Images were reviewed directly by the performing physicians. A complete post TAVR study including full Doppler will be performed subsequently. 3. A 34 mm Medtronic Evolut Pro TAVR aortic valve is visualized and well seated in the aortic position. 4. There is no regurgitation of the TAVR aortic valve, as assessed on limited Doppler views. 5. There is no pericardial effusion. 6. Left ventricular systolic function is normal on available views. History/Risk Factors Hypertension: Yes Dyslipidemia: Yes Coronary Artery Disease (CAD) Yes Diabetes Mellitus: No COPD: No Tobacco Use: Never Valve Disease - AV: Moderate Prior Interventions CABG: Yes Procedure(s): Limited Doppler interrogation, two-dimensional and color flow transthoracic echocardiogram is performed. Left Ventricle Left ventricular systolic function is normal on available views. Aortic Valve A 34 mm Medtronic Evolut Pro TAVR aortic valve is visualized and well seated in the aortic position. There is no regurgitation of the TAVR aortic valve, as assessed on limited Doppler views. Mitral Valve The mitral valve has calcified leaflets and calcified annulus. Pericardium/Pleural There is no pericardial effusion. Left Ventricular Outflow Tract -------- Name Value Normal -------- LVOT Doppler -------- LVOT Peak Velocity 1.2 m/s LVOT Mean Gradient 3 mmHg LVOT VTI 26 cm LVOT VTI/AV VTI Ratio 0.8 Aortic Valve -------- Name Value Normal -------- AV Doppler -------- AV Peak Velocity 1.7 m/s AV Mean Gradient 5 mmHg AV VTI 34 cm LVOT Vmax/AV Vmax 0.71 LVOT VTI/AV VTI Ratio 0.8 Report Signatures Finalized by Nicol Pittman DO on 01/21/2022 04:13 PM Ultrasound lower ext pseudoaneurysm Result Date: 01/22/2022 Patient Info Name: VICKIE GONZALEZ Age: 66 years : 1955 Gender: Female Exam Date: 01/21/2022 1:41 PM Patient Status: Outpatient Foundation Director: Muriel Medina RVT, RDMS Referring Physician: TONIA Jimenez; Attending Physician: LINDSEY PLUMMER Indications Z98.890 - Other specified postprocedural states - left femoral artery pseudoaneurysm, please perform compression therapy if able Procedure Description 24816 Duplex scan of lower extremity arteries or arterial bypass grafts using B-mode, color and spectral Doppler; unilateral or limited study. Conclusions * No evidence of pseudoaneurysm or arteriovenous fistula in the left groin. * Normal multiphasic Doppler waveforms of the left distal external iliac, common femoral, proximal profunda femoral and proximal superficial femoral arteries. * Normal phasic and spontaneous Doppler waveforms of the left common femoral, proximal profunda femoral and proximal superficial femoral veins. . Report Signatures Finalized by Robert Coto MD, RPVI on 01/22/2022 10:31 PM Echocardiogram complete Result Date: 01/22/2022 Patient Info Name: VICKIE GONZALEZ Age: 66 years : 1955 Gender: Female Ht: 168 cm Wt: 105 kg BSA: 2.26 m2 HR: 70 bpm BP: 123 / 84 mmHg Technical Quality: Fair Exam Date: 01/22/2022 8:51 AM Patient Status: Inpatient Director Sales Training: Geraldo Carlos, RAH, RVT Exam Type: ECHOCARDIOGRAM COMPLETE Study Info Indications - Other Attending Physician: LINDSEY PLUMMER Referring Physician: [id number], DYE; [id number] BMI: 37.28 kg/m2 Summary 1. Left ventricular systolic function is normal with an ejection fraction of 55%. 2. S/p 34 mm Medtronic Evolut Pro TAVR valve. The valve appears well-seated. 3. Mean aortic valve gradient of 4 mmHg. 4. There is no aortic valve regurgitation. 5. There is mild tricuspid valve regurgitation. 6. There is borderline pulmonary hypertension, estimated right ventricle systolic pressure is 43 mmHg. History/Risk Factors Hypertension: Yes Dyslipidemia: Yes Coronary Artery Disease (CAD) Yes Diabetes Mellitus: No COPD: No Tobacco Use: Never Valve Disease - AV: Moderate History/Risk Factors Patient has prior CABG. Prior Interventions CABG: Yes Procedure(s): Complete two-dimensional, color flow and Doppler transthoracic echocardiogram is performed. Left Ventricle Left ventricular chamber dimension is normal. Left ventricular systolic function is normal with an ejection fraction of 55%. Mild concentric left ventricular hypertrophy. Left ventricular segmental wall motion is normal. The left ventricular diastolic function is normal. Right Ventricle Right ventricular chamber dimension is normal. Right ventricular systolic function is normal. Left Atria Left atrial chamber is normal. Right Atria Right atrial chamber dimension is normal. Aortic Valve S/p 34 mm Medtronic Evolut Pro TAVR valve. The valve appears well-seated. Mean aortic valve gradient of 4 mmHg. There is no aortic valve regurgitation. Pulmonic Valve The pulmonic valve is normal. There is no pulmonic valve stenosis. There is no pulmonic regurgitation. Mitral Valve The mitral valve has normal leaflets. There is no mitral valve stenosis. There is no mitral valve regurgitation. Tricuspid Valve The tricuspid valve leaflets are normal. There is no significant tricuspid valve stenosis. There is mild tricuspid valve regurgitation. There is borderline pulmonary hypertension, estimated right ventricle systolic pressure is 43 mmHg. Pericardium/Pleural The pericardium appears normal. There is no pericardial effusion. Left Ventricular Outflow Tract -------- Name Value Normal -------- LVOT 2D -------- LVOT Diameter 2.0 cm LVOT Doppler -------- LVOT Peak Velocity 1.1 m/s LVOT Mean Gradient 2 mmHg LVOT VTI 21 cm LVOT VTI/AV VTI Ratio 0.7 LVOT Stroke Volume 65 ml LVOT Stroke Index 28.96 ml/m2 Pulmonic Valve -------- Name Value Normal -------- PV Doppler -------- PV Peak Velocity 1.83 m/s Mitral Valve -------- Name Value Normal -------- MV Doppler -------- MV Decel [place] 386 cm/s2 MV PHT 77 ms MV Area (PHT) 2.9 cm2 4.0-5.0 MV Diastolic Function -------- MV E Peak Velocity 1 m/s MV A Peak Velocity 1 m/s MV E/A 1.1 MV Decel Time 264 ms MV Annular TDI -------- MV Septal e' Velocity 4.5 cm/s >=8.0 MV E/e' (Septal) 22.9 <=8.0 MV Lateral e' Velocity 12.7 cm/s >=10.0 MV E/e' (Lateral) 8.0 <=8.0 MV e' Average 8.58 cm/s MV E/e' (Average) 15.5 Tricuspid Valve -------- Name Value Normal -------- TV Regurgitation Doppler -------- TR Peak Velocity 3.08 m/s Estimated PAP/RSVP -------- PA Systolic Pressure 43 mmHg <=36 Aortic Valve -------- Name Value Normal -------- AV Doppler -------- AV Peak Velocity 1.5 m/s AV Mean Gradient 4 mmHg AV VTI 31 cm AV Area (Cont Eq VTI) 2.1 cm2 AV Area (Cont Eq Alvarez) 2.3 cm2 LVOT Vmax/AV Vmax 0.72 LVOT VTI/AV VTI Ratio 0.7 AV Regurgitation 2D -------- LVOT Area 3.1 cm2 Ventricles -------- Name Value Normal -------- LV Dimensions 2D/MM -------- IVS Diastolic Thickness (2D) 1.3 cm 0.6-0.9 LVID Diastole (2D) 4.3 cm 3.8-5.2 LVIW Diastolic Thickness (2D) 1.2 cm 0.6-0.9 LVID Systole (2D) 3.9 cm 2.2-3.5 LVOT Diameter 2.0 cm LV Mass (2D Cubed) 193.04 g 67.00-162.00 LV Mass Index (2D Cubed) 86 g/m2 43-95 Relative Wall Thickness (2D) 0.53 <=0.42 LV Fractional Shortening/Ejection Fraction 2D/MM -------- LV Fractional Shortening (2D) 9 % 27-45 RV Dimensions 2D/MM -------- TAPSE 1.2 cm >=1.7 RV Systolic Function -------- RV s' Velocity 0.1 m/s 0.1-0.2 Atria -------- Name Value Normal -------- LA Dimensions -------- LA Dimension (2D) 2.9 cm 2.7-3.8 LA Dimen Index (2D) 1.3 cm/m2 Report Signatures Finalized by Cat Carmichael MD on 01/22/2022 05:15 PM documented in this encounter [facility] 02-13-2022 Note Addended by: TERRIE RUSSO on: 02/13/2022 07:54 AM Modules accepted: Orders [facility] 02-13-2022 Miscellaneous Notes Addended by: TERRIE OH on: 02/13/2022 07:54 AM Modules accepted: Orders documented in this encounter [facility] 02-03-2022 History of Presen t illness Narrative Telephone Visit Via Phone Call [facility] [address] [place] [phone] [facility] 02/03/2022 Angelica Randall CNP Provider Location: office Patient Location Manager Qa: None Patient Location: Patient's Home Patient: Vickie Gonzalez Date of : 1955 (66 y.o. female) PCP: Nicol Iabnez MD I discussed risks, benefits and alternatives of a telephone visit telemedicine consultation with the patient (and any accompanying persons) including the risks that the patient's personal health details and medical records will be discussed over real-time, synchronous, interactive audio technology, the visit will not be recorded without the express consent of both the provider and the patient, and that there are inherent diagnostic limitations compared to [id number] evaluations. We elected to proceed with the telephone visit telemedicine consultation. HPI Vickie Gonzalez is a 66 y.o. female patient of Nicol Ibanez MD with a history of atherosclerotic coronary artery disease s/p CABG with DYE to LAD, MISSY [place]CA [place] [address] 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 Silveira for known AI. Over the summer she began experiencing jaw discomfort with chest pain with exertion, relieved with rest.She underwent a repeat TTE which showed an LVEF 55% with severe aortic stenosis with mean aortic gradient 48mmHg, peak aortic velocity 4.8m/sec with severe AI, mild MR, mild TR and RVSP 46mmHg. Last cardiac catheterization in 2010 showed patent DYE and MISSY with 100% occluded RCA and LM. She was referred for consideration for transcatheter aortic valve replacement. STS 1.8%, NYHA Class III by symptoms. She was reviewed in SH conference and deemed an appropriate TAVR candidate. She underwent cardiac catheterization prior to TAVR which showed patent DYE/MISSY and occluded LM and RCA. On 01/21/22 she underwent TAVR with 34mm Evolut Pro Plus via RFA. She recovered well in PACU and was transferred to the floor where she continued to make steady progress. ECG with NSR with 1st degree AVB, no events overnight on telemetry. She was discharged home on POD 1 in stable condition. Since discharge she has noticed a significant improvement in activity tolerance and dyspnea on exertion. Her chronic cough has subsided by 60-70% by patient's report. She denies chest pain, syncope, near syncope, LE edema, hospital readmissions. She reports well-healing wounds. She presents for 2 week TAVR follow up via telemedicine. The following portions of the patient's history were reviewed and updated as appropriate: allergies, current medications, past family history, past medical history, past social history, past surgical history and problem list. Review of Systems Per HPI Patient's Medications New Prescriptions No medications on file Previous Medications ALBUTEROL 90 MCG/ACTUATION INHALER Inhale 2 puffs every 6 (six) hours as needed for wheezing. ASPIRIN 81 MG EC TABLET Take 81 mg by mouth every other day . B COMPLEX VITAMINS TABLET Take 1 tablet by mouth daily . EGHTLXZ-CZTINQJNI-SMWL ORAL Take 1 tablet by mouth daily . CHOLECALCIFEROL, VITAMIN D3, 50 MCG (2,000 UNIT) CAP Take 2,000 Units by mouth daily . CLOPIDOGREL (PLAVIX) 75 MG TABLET Take 1 (one) tablet (75 mg total) by mouth daily . DIPHENHYDRAMINE (BENADRYL) 25 MG TABLET Take 25 mg by mouth nightly . FLUTICASONE PROPIONATE (FLONASE) 50 MCG/ACTUATION NASAL SPRAY Instill 2 sprays into each nostril daily as needed for allergies . LACTOBACILLUS COMBO NO.11 (PROBIOTIC) 15 BILLION CELL CPSP Take by mouth daily . LORATADINE (CLARITIN) 10 MG TABLET Take 10 mg by mouth daily . LOSARTAN (COZAAR) 100 MG TABLET Take 100 mg by mouth nightly . METOPROLOL SUCCINATE (TOPROL-XL) 50 MG 24 HR TABLET Take 1 (one) tablet (50 mg total) by mouth daily . MONTELUKAST (SINGULAIR) 10 MG TABLET Take 10 mg by mouth nightly . NITROGLYCERIN (NITROSTAT) 0.[address] 1 (one) tablet (0.4 mg total) under the tongue every 5 (five) minutes as needed for chest pain , if no relief after 3 doses call 911 . PRAVASTATIN (PRAVACHOL) 40 MG TABLET Take 1 (one) tablet (40 mg total) by mouth nightly . Modified Medications No medications on file Discontinued Medications No medications on file Assessment/Plan: severe aortic stenosis S/p TAVR with 34mm Evolut Pro Plus via RFA on 01/21/22 who presents for 2 week TAVR follow up via telemedicine. She has done well since discharge with significant improvement in activity tolerance and dyspnea on exertion. Prior to TAVR she could only ambulate for 3 minutes at a time. She is now walking aerobically for 24 minutes a time and is mostly limited by muscle/joint pain. Encouraged cardiac rehab, which she will enroll in. She reports well-healing wounds. She has no activity restrictions at this time. DAPT for 90 days post TAVR, which she is tolerating well. Life-long aspirin therapy. No medication changes made today. NYHA Class I by symptoms. She will follow up with the [facility] again at 4 weeks post TAVR with TTE, labwork and ECG. I have spent 16 minutes with the patient reviewing the HPI and Plan of Care. documented in this encounter [facility] 01-22-2022 Hospital course Narrative DISCHARGE SUMMARY Patient: Vickie Gonzalez Date of : 1955 Site: [facility] Family Provider: Nicol Ibanez MD Admit Date: 01/21/2022 Discharge Date/Time: 01/22/22 Disposition: Home Clinical Summary Hospital Course: Vickie Gonzalez is a 66 y.o. female patient of Nicol Ibanez MD with a history of atherosclerotic coronary artery disease s/p CABG with DYE to LAD, MISSY [place] RCA [place] [address] 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 Silveira for known AI. Over the summer she began experiencing jaw discomfort with chest pain with exertion, relieved with rest. She has limited her activity level since that time. She admits to dyspnea on exertion, worsening cough, occasional lightheadedness. She denies LE edema, orthopnea, PND, hospital admissions for heart failure. She underwent a repeat TTE which showed an LVEF 55% with severe aortic stenosis with mean aortic gradient 48mmHg, peak aortic velocity 4.8m/sec with severe AI, mild MR, mild TR and RVSP 46mmHg. Last cardiac catheterization in 2010 showed patent DYE and MISSY with 100% occluded RCA and LM. She was referred for consideration for transcatheter aortic valve replacement. STS 1.8%, NYHA Class III by symptoms. She was reviewed in SH conference and deemed an appropriate TAVR candidate. She underwent cardiac catheterization prior to TAVR which showed patent DYE/MISSY and occluded LM and RCA. On 01/21/22 she underwent TAVR with 34mm Evolut Pro Plus via RFA. She recovered well in PACU and was transferred to the floor where she continued to make steady progress. ECG with NSR with 1st degree AVB, no events overnight on telemetry. She is oxygenating well on room air and ambulating independently in the hallways. Post op TTE results pending at discharge. DAPT for 90 days post TAVR with aspirin indefinitely thereafter. She is being discharged home on POD 1 in stable condition. She will follow up with the [facility] at 2 weeks and 4 weeks post TAVR. Discharge Diagnoses: * Severe aortic stenosis Assessment & Plan S/p TAVR with 34mm Evolut Pro Plus via RFA Surgeries: 01/21/22 Transcatheter Aortic Valve Replacement 01/21/22 TRANSCATHETER AORTIC VALVE REPLACEMENT FEMORAL APPROACH Consults: Procedures Inpatient consult to Cardiac Rehab Allergies: Levaquin [levofloxacin] and Naprosyn [naproxen] Discharge Diet: Resume home diet Condition: Good Discharge Medications: Discharge Medications New Medications Details clopidogreL 75 mg tablet Commonly known as: PLAVIX Take 1 (one) tablet (75 mg total) by mouth daily . Quantity: 30 tablet Medications To Continue Details albuterol 90 mcg/actuation inhaler Inhale 2 puffs every 6 (six) hours as needed for wheezing. aspirin 81 MG EC tablet Take 81 mg by mouth every other day . b complex vitamins tablet Take 1 tablet by mouth daily . EMOSXBZ-[id number] ORAL Take 1 tablet by mouth daily . cholecalciferol (vitamin D3) 50 mcg (2,000 unit) Cap Take 2,000 Units by mouth daily . diphenhydrAMINE 25 mg tablet Commonly known as: BENADRYL Take 25 mg by mouth nightly . fluticasone propionate 50 mcg/actuation nasal spray Commonly known as: FLONASE Instill 2 sprays into each nostril daily as needed for allergies . loratadine 10 mg tablet Commonly known as: CLARITIN Take 10 mg by mouth daily . losartan 100 MG tablet Commonly known as: COZAAR Take 100 mg by mouth nightly . metoprolol succinate 50 MG 24 hr tablet Commonly known as: TOPROL-XL Take 1 (one) tablet (50 mg total) by mouth daily . Quantity: 90 tablet montelukast 10 mg tablet Commonly known as: SINGULAIR Take 10 mg by mouth nightly . nitroGLYCERIN 0.4 MG SL tablet Commonly known as: NITROSTAT Place 1 (one) tablet (0.4 mg total) under the tongue every 5 (five) minutes as needed for chest pain , if no relief after 3 doses call 911 . Quantity: 25 tablet pravastatin 40 MG tablet Commonly known as: PRAVACHOL Take 1 (one) tablet (40 mg total) by mouth nightly . Quantity: 90 tablet Probiotic 15 billion cell Cpsp Generic drug: lactobacillus combo no.11 Take by mouth daily . Stopped Medications amLODIPine 5 MG tablet Commonly known as: NORVASC Physician(s) Family Provider: Nicol Ibanez MD, Address: [address] / [place] [address] Follow Up: Phase 2 Cardiac Rehabilitation-[place] Please call ext. [phone] to schedule. Call in 2 week(s) Nicol Ibanez MD [address] [place] [id number] Follow up Please call to schedule follow up appt for 8 weeks from discharge Angelica Randall CNP [address] [phone] Follow up Office has scheduled appts at 2 weeks and 4 weeks from discharge Blaine Silveira MD [address] [place], [place] [id number] Follow up Please call to schedule follow up appt with Dr. Silveira Additional Information: Patient instructions, including activity, were given to the patient/family at discharge. Please see the After Visit Summary in the electronic medical record for details. Time spent on discharge: > 30 minutes Completed by: Angelica Randall CNP on 01/22/22, 10:54 AM documented in this encounter [facility] 01-22-2022 Consult note Formatting of th is note might be different from the original. AVS reviewed with patient/family. Discussed importance of medications, follow up appointments, and Cardiac Rehab with patient/family.Discussed with patient that their physician has referred him/her to our outpatient Cardiac Rehabilitation program. A Cardiac Rehabilitation nurse will contact patient or patient may call [phone] for additional information. [facility] Cardiac Rehabilitation brochure provided to patient/family.The Cardiac Rehabilitation Program will be provided the patient's referral information and pertinent patient details and history. Patient chosen location is . [facility] 01-22-2022 Consult note Formatting of th is note might be different from the original. AVS reviewed with patient/family. Discussed importance of medications, follow up appointments, and Cardiac Rehab with patient/family.Discussed with patient that their physician has referred him/her to our outpatient Cardiac Rehabilitation program. A Cardiac Rehabilitation nurse will contact patient or patient may call [phone] for additional information. [facility] Cardiac Rehabilitation brochure provided to patient/family.The Cardiac Rehabilitation Program will be provided the patient's referral information and pertinent patient details and history. Patient chosen location is . documented in this encounter [facility] 01-22-2022 Evaluation + Plan note Associated Problem(s): Severe aortic stenosis S/p TAVR with 34mm Evolut Pro Plus via RFA [facility] 01-22-2022 Miscellaneous Notes Associated Problem(s): Severe aortic stenosis S/p TAVR with 34mm Evolut Pro Plus via RFA .. Patient oriented to room and call system: yes Goal and Plan of Care written on whiteboard: yes Dual RN skin assessment completed with: Kaley Barcenas How will patient get home at discharge: Family will take pt home Brief Post Operative Note Patient Name: Vickie Gonzalez : 1955 (66 y.o.) Date of Service: 01/21/2022 CSN: [id number] Procedure(s): Transcatheter Aortic Valve Replacement TRANSCATHETER AORTIC VALVE REPLACEMENT FEMORAL APPROACH Pre-Operative Diagnoses: * severe aortic stenosis Post-Operative Diagnoses: * Same as Pre-Op Diagnosis Surgeon(s) and Role: Panel 1: * Lindsey Plummer MD - Primary * Stanley Grant MD Panel 2: * Meir Arthur MD - Primary * Robert Pugh MD Anesthesiologist: Chapito Mohan MD Student Nurse Center Director Lead Teacher: Deep Sawant Broadcast Producer: Kishan Rascon RN; Alena Barker, TECHNOLOGIST; Gina Ann RN; Judd Hoover RN Creative Writing Professor: Zulma Bowen Scrub Person: ST Raven; Danette Tyson, TECHNOLOGIST; ST Kera Documenter: Magen Flores TECHNOLOGIST Anesthesia Specialist: OTILIA Simmons Operative findings: #34 Medtronic Evolut pro plus TAVR via RCFA approach Intra and immediate post-operative complications: none Type of anesthesia used: Monitor Anesthesia Care Estimated blood loss: less than 50 mL Estimated urine output: Refer to surgical log Specimen(s): * No specimens in log * Implant(s): Implant Name Type Inv. Item Serial No. Social Insurance Specialist Lot No. LRB No. Used Action CLOSURE PERCLOSE PROSTYLE - [id number] Closure Device CLOSURE PERCLOSE PROSTYLE GARAY VAS N/A 2 Implanted VALVE 34MM EVOLUT PRO AORTIC - [id number] Percutaneous Valve VALVE 34MM EVOLUT PRO AORTIC [id number] [employer]TRON[employer] N/A 1 Implanted Drain(s): * No LDAs found * Wound(s): * No LDAs found * Robert Pugh MD 01/21/2022 12:[address] [facility] [id number] 1955 DATE 01/21/2022 OPERATIVE REPORT SURGEON ROBERT PUGH MD ANESTHESIOLOGIST DR. MOHAN PROCEDURE Implantation of #34 Medtronic Evolut PRO+ transcatheter aortic valve replacement via right common femoral artery approach. OTHER SURGEON Ivan. CARDIOLOGISTS Socrates Grant , and Toya. PREOPERATIVE DIAGNOSIS Severe symptomatic aortic stenosis. POSTOPERATIVE DIAGNOSIS Severe symptomatic aortic stenosis. INDICATIONS Vickie Gonzalez is a 66-year-old lady with severe symptomatic aortic stenosis, status post previous coronary bypass. She was referred for consideration of surgical versus transcatheter aortic valve replacement. OPERATIVE FINDINGS The time of her previous operation demonstrated severe mediastinal fibrosis and she was felt to be a poor operative risk and was therefore evaluated for the transcatheter approach. It was felt that a 34 Medtronic valve delivered through the right common femoral artery was the prudent approach. The procedure, indications, risks, potential complications, and alternatives have all been explained, all questions answered and she has consented to the procedure. OPERATION Patient on OR table in supine position under monitored sedation by Dr. Mohan. She was prepped and draped in usual sterile fashion. All vascular access was with ultrasound guidance and local infiltration with 1% xylocaine. 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 A temporary right ventricular pacing catheter was placed through the left common femoral vein and the Medtronic sheath was placed through the right common femoral artery. The patient had severe aortic calcification and it was felt that a balloon aortic valvuloplasty was warranted pre-deployment. She therefore underwent BAV after crossing the aortic valve using standard techniques, a 24 x 25 balloon aortic valvuloplasty was performed under rapid ventricular pacing which she tolerated well. The Medtronic valve was then advanced over the stiff wire, placed in the ventricle after removing the balloon device. Using standard techniques, a 34 Medtronic valve was then deployed with acceptable results. Post deployment, which she tolerated quite well, there was full expansion of the valve which seated easily. The mean gradient across the valve was only 5 mmHg and there was no evidence of a paravalvular leak. Catheters and sheaths were withdrawn using standard Perclose device for arterial closure. Sterile dressings were applied. The wound, sponge, and needle counts were correct. The patient tolerated the procedure well and was returned to the recovery room in satisfactory condition. ROBERT PUGH MD D 01/21/2022 12:30 [id number] T 01/21/2022 12:47 WJF/MODL documented in this encounter [facility] 01-22-2022 History of Presen t illness Narrative Patient Name: Vickie Gonzalez MR #: [id number] POD # 1 Subjective: No complaints Objective: Temp: [97.4 F (36.3 C)-98 F (36.7 C)] 98 F (36.7 C) Heart Rate: [51-81] 81 Resp: [15-22] 18 BP: (98-176)/(50-84) 123/84 RA UOP: 700/700 General: No acute distress. Resting comfortably in bed Lungs: Clear bilat with diminished bases bilat. On RA Cardiac :NSR on Monitor, Regular rate, no murmurs/rubs Extremities: warm, no edema. Abdomen: Soft, non tender, BS x 4 + flatus Neurological: Alert and appropriate. LOC x 4. Wounds: clean, dry and intact. No hematoma. Bilateral pedal pulses palpable WBC: 5, H&H: 10.4/33, plts: 176 Na: 139, K: 4.3, BUN/Cr: 10/0.75 Assessment/Plan: Severe, symptomatic aortic stenosis s/p TAVR with 34mm Evolut Pro Plus via RFA H/o CABG with DYE to LAD, MISSY to RCA Doing well Neuro intact Cr stable Hgb stable On room air Post op TTE pending ECG stable with NSR with 1st degree AVB, no events overnight on telemetry DAPT for 90 days post TAVR Left lower extremity ultrasound negative for pseudoaneurysm Atherosclerosis of aorta noted on TAVR CTA, will continue to monitor Known periaortic mass, fibrosis on intraop biopsy during CABG Discharge home today after TTE completed Will discuss with SH team documented in this encounter [facility] 01-22-2022 Note Formatting of this n ote might be different from the original. .. Patient oriented to room and call system: yes Goal and Plan of Care written on whiteboard: yes Dual RN skin assessment completed with: Kaley Barcenas How will patient get home at discharge: Family will take pt home [facility] 01-21-2022 Note Formatting of this n ote is different from the original. Brief Post Operative Note Patient Name: Vickie Gonzalez : 1955 (66 y.o.) Date of Service: 01/21/2022 CSN: [id number] Procedure(s): Transcatheter Aortic Valve Replacement TRANSCATHETER AORTIC VALVE REPLACEMENT FEMORAL APPROACH Pre-Operative Diagnoses: * severe aortic stenosis Post-Operative Diagnoses: * Same as Pre-Op Diagnosis Surgeon(s) and Role: Panel 1: * Lindsey Plummer MD - Primary * Stanley Grant MD Panel 2: * Meir Arthur MD - Primary * Robert Pugh MD Anesthesiologist: Chapito Mohan MD Student Nurse Center Director Lead Teacher: Deep Sawant Broadcast Producer: Kishan Rascon RN; Alena Barker, TECHNOLOGIST; Gina Ann RN; Judd Hoover RN Creative Writing Professor: Zulma Bowen Scrub Person: ST Raven; Danette Tyson, TECHNOLOGIST; ST Kera Documenter: Magen Flores TECHNOLOGIST Anesthesia Specialist: OTILIA Simmons Operative findings: #34 Medtronic Evolut pro plus TAVR via RCFA approach Intra and immediate post-operative complications: none Type of anesthesia used: Monitor Anesthesia Care Estimated blood loss: less than 50 mL Estimated urine output: Refer to surgical log Specimen(s): * No specimens in log * Implant(s): Implant Name Type Inv. Item Serial No. Social Insurance Specialist Lot No. LRB No. Used Action CLOSURE PERCLOSE PROSTYLE - [id number] Closure Device CLOSURE PERCLOSE PROSTYLE GARAY VAS N/A 2 Implanted VALVE 34MM EVOLUT PRO AORTIC - [id number] Percutaneous Valve VALVE 34MM EVOLUT PRO AORTIC [id number] [employer]ON[employer] N/A 1 Implanted Drain(s): * No LDAs found * Wound(s): * No LDAs found * Robert Pugh MD 01/21/2022 12:24 PM [employer] Work Phone: 01-21-2022 Attending History and physical note INTERVAL HISTORY AND PHYSICAL Patient Name: Vickie Gonzalez Admit Date: [id number] MR #: [id number] : 1955 The H&P has been reviewed and the patient has been examined. I concur with the findings of the H&P. There are no significant changes. It is appropriate to proceed with the planned procedure. Angelica Randall CNP 01/21/2022 10:05 AM Source Note - Meir Arthur MD - 01/09/2022 1:07 PM EST [facility] T[facility]R CONSULT[facility] Patient Name: Vickie Gonzalez Admit Date: MR #: [id number] : 1955 Physicians: Nicol Ibanez MD (Family) Assessment and Plan: 66 y with severe symptomatic aortic stenosis with moderate aortic insufficiency with previous CABG. TAVR work-up ongoing. Together, with the patient, the health care team clarified all acceptable treatment options, ensured that both parties were well-informed and chose a course of care consistent with the patient's values/preferences as well as the best available medical evidence. Chief Complaint/Reason for Visit: Severe, symptomatic aortic stenosis/aortic insufficiency History of Present Illness: Vickie Gonzalez is a 66 y.o. y/o female with a history of atherosclerotic coronary artery disease s/p CABG with DYE to LAD, MISSY [place] R[place] [address] 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 Silveira for known AI. Over the summer she began experiencing jaw discomfort with chest pain with exertion, relieved with rest. She has limited her activity level since that time. She admits to dyspnea on exertion, worsening cough, occasional lightheadedness. She denies LE edema, orthopnea, PND, hospital admissions for heart failure. She underwent a repeat TTE which showed an LVEF 55% with severe aortic stenosis with mean aortic gradient 48mmHg, peak aortic velocity 4.8m/sec with severe AI, mild MR, mild TR and RVSP 46mmHg. Last cardiac catheterization in 2010 showed patent DYE and MISSY with 100% occluded RCA and LM. She was referred for consideration for transcatheter aortic valve replacement. STS 1.8%, NYHA Class III by symptoms. History: Past Medical History: Diagnosis Date Asthma Chest pain Fibrosing mediastinitis Hiatal hernia HTN (hypertension) Leg weakness Numbness in both legs Periaortic mass benign Skin cancer SOB (shortness of breath) on exertion Past Surgical History: Procedure Laterality Date CABG 02/11/2001 x3 CARDIAC CATHETERIZATION 2012 CARDIAC CATHETERIZATION Left 02/10/2001 EF 60% CARDIAC CATHETERIZATION Bilateral 08/26/2011 EF 55% TOTAL KNEE ARTHROPLASTY Left No family history on file. Social History Socioeconomic History Marital status: Tobacco Use Smoking status: Never Smoker Smokeless tobacco: Never Used Vaping Use Vaping Use: Never used Substance and Sexual Activity Alcohol use: Yes Alcohol/week: 0.0 standard drinks Comment: occasional Drug use: No with 2 biologic children, no heart disease in children No siblings with heart disease Mother with h/o CVA Allergy Information: I have reviewed the patient's allergies. Levaquin [levofloxacin] and Naprosyn [naproxen] Home Medications: Prior to Admission medications Medication Sig Start Date End Date Taking? Authorizing Provider albuterol 90 mcg/actuation inhaler Inhale 2 puffs every 6 (six) hours as needed for wheezing. Historical Provider, amLODIPine (NORVASC) 5 MG tablet Take 1 (one) tablet (5 mg total) by mouth daily . 10/27/18 Blaine Silveira MD aspirin 81 MG EC tablet Take 81 mg by mouth every other day . Historical Provider, azithromycin (ZITHROMAX) 250 MG tablet 01/04/22 Historical Provider, b complex vitamins tablet Take 1 tablet by mouth daily . Historical Provider, DNSKNMP-[id number] ORAL Take 1 tablet by mouth daily . Historical Provider, cholecalciferol, vitamin D3, 50 mcg (2,000 unit) cap Take 2,000 Units by mouth daily . Historical Provider, diphenhydrAMINE (BENADRYL) 25 mg tablet Take 25 mg by mouth nightly . Historical Provider, fluticasone propionate (FLONASE) 50 mcg/actuation nasal spray Instill 2 sprays into each nostril daily as needed for allergies . Historical Provider, lactobacillus combo no.11 (Probiotic) 15 billion cell CpSP Take by mouth daily . Historical Provider, loratadine (CLARITIN) 10 mg tablet Take 10 mg by mouth daily . Historical Provider, losartan (COZAAR) 100 MG tablet Take 100 mg by mouth nightly . Historical Provider, metoprolol succinate (TOPROL-XL) 50 MG 24 hr tablet Take 1 (one) tablet (50 mg total) by mouth daily . 06/10/19 Blaine Silveira MD montelukast (SINGULAIR) 10 mg tablet Take 10 mg by mouth nightly . Historical Provider, nitroGLYCERIN (NITROSTAT) 0.[address] 1 (one) tablet (0.4 mg total) under the tongue every 5 (five) minutes as needed for chest pain , if no relief after 3 doses call 911 . 06/11/21 Blaine Silveira MD pravastatin (PRAVACHOL) 40 MG tablet Take 1 (one) tablet (40 mg total) by mouth nightly . 10/27/18 Blaine Silveira MD Current Medications: Review of Systems: The following system(s) were reviewed and pertinent findings noted: Constitutional: denies fever, chills denies weakness, fatigue denies weight changes CV: admits to chest pain, denies palpitations, denies syncope or near syncope Resp: denies shortness of breath, admits to dyspnea on exertion, admits to cough or wheeze, denies hemoptysis GI: denies nausea, vomiting, constipation or diarrhea. denies blood in stool or black tarry stools. denies hematuria Musc: denies joint pain or swelling, denies lower extremity edema Neuro: denies TIA, CVA. denies neuropathy, denies carpal tunnel syndrome, denies spinal stenosis Endo: denies polyuria, polydipsia Dental: last dental visit dental clearance obtained Physical Examination: Vital Signs: BP 143/80 Pulse 78 Temp 98 F (36.7 C) Resp 18 Ht 5' 6 Wt 106.3 kg (234 lb 5.6 oz) SpO2 97% BMI 37.82 kg/m General: Alert, cooperative, no distress, appears stated age Head: Normocephalic, without obvious abnormality, atraumatic Eyes: PERRL, conjunctiva/corneas clear, EOM's intact, fundi benign both eyes Throat: Lips, mucosa, and tongue normal; teeth and gums normal Neck: Supple, symmetrical, trachea midline, no adenopathy; thyroid: no enlargement/tenderness/nodules; radiating murmur to bilateral carotids Back: Symmetric, no curvature, ROM normal, no CVA tenderness Lungs: Clear to auscultation bilaterally, respirations Unlabored,mildly diminished respiratory effort Chest Wall: No tenderness or deformity Cardiovascular: Regular rate and rhythm, S1 and S2 normal, murmur noted, No rub or gallop; Pulses 2+ and symmetric all extremities Abdomen: Soft, non-tender, bowel sounds active all four quadrants,no masses, no organomegaly Extremities: Normal, atraumatic, no cyanosis or edema Skin: Skin color, texture, turgor normal, no rashes or lesions Musculoskeletal: Full range of motion of all extremities; no joint edema Neurologic: CNII-XII intact; normal strength, sensation and reflexes throughout Psych: Mood and affect appropriate Laboratory and Additional Data Reviewed: Laboratory 01/09/22 1:07 PM Microbiology 01/09/22 1:07 PM Pathology 01/09/22 1:07 PM Radiology 01/09/22 1:07 PM Cardiology 01/09/22 1:07 PM Medications 01/09/22 1:07 PM Transcriptions 01/09/22 1:07 PM Lab Results Component Value Date WBC 7.10 01/09/2022 HGB 12.2 01/09/2022 HCT 37.9 01/09/2022 MCV 85.0 01/09/2022 PLT 234 01/09/2022 RBC 4.46 01/09/2022 Lab Results Component Value Date GLUCOSE 104 (H) 01/09/2022 CALCIUM 9.7 01/09/2022 NA 142 01/09/2022 K 4.2 01/09/2022 CL 105 01/09/2022 BUN 21 01/09/2022 CREATININE 0.9 01/09/2022 Lab Results Component Value Date HGBA1C 6.1 (H) 01/09/2022 @JOZOHEV03@ CT TAVR Chest Abdomen Pelvis without hydration Result Date: 01/09/2022 EXAMINATION: CTA OF THE CHEST, ABDOMEN AND PELVIS WITH AND WITHOUT CONTRAST - TAVR PROTOCOL 01/09/2022 8:44 am TECHNIQUE: CTA of the chest, abdomen and pelvis was performed before and after the administration of intravenous contrast. Multiplanar reformatted images are provided for review. MIP images are provided for review. Dose modulation, iterative reconstruction, and/or weight based adjustment of the mA/kV was utilized to reduce the radiation dose to as low as reasonably achievable. COMPARISON: 08/26/2011 HISTORY: ORDERING SYSTEM PROVIDED HISTORY: Preop TAVR; TECHNOLOGIST PROVIDED HISTORY: Illness/Other Acuity: Unknown Reason for Exam: Preop TAVR Type of Encounter: Unknown Additional signs and symptoms: ORDERING SYSTEM PROVIDED DIAGNOSIS CODES: I35.0 Aortic valve stenosis, severe Z01.810 Pre-operative cardiovascular examination FINDINGS: CTA CHEST: There is an ascending thoracic aortic aneurysm measuring approximately 4.5 cm in diameter. There is extensive aortic valve calcifications with extensive atherosclerotic calcified and noncalcified plaque within the ascending thoracic aorta. There is soft tissue thickening surrounding the ascending thoracic aorta and aortic arch that may represent fibrosis. No evidence of thoracic aortic dissection. The descending thoracic aorta is unremarkable in appearance. There are borderline-sized mediastinal lymph nodes measuring up to 9 mm short axis dimension. These are stable since 2011 and likely reactive. The wall thickening of the aorta is also stable since 2011 examination. There is cardiomegaly. Evidence of prior CABG with median sternotomy wires and mediastinal clips. Central airways are clear. Thyroid is grossly unremarkable within the limits of CT. Bibasilar subsegmental atelectasis. Lungs are clear without focal consolidation or pulmonary edema. No evidence of pleural effusion or pneumothorax. Age-related degenerative changes of the visualized osseous structures without focal destructive lesion. CTA ABDOMEN: No evidence of abdominal aortic dissection or aneurysm. No significant atherosclerotic disease. Celiac axis, SMA, bilateral renal arteries and CYNTHIA are patent. Liver enhances normally without evidence of intrahepatic biliary ductal dilatation. The gallbladder is unremarkable. The spleen, pancreas and adrenal glands are unremarkable. The kidneys enhance symmetrically without evidence of hydronephrosis. The stomach and duodenal sweep demonstrate no acute abnormality. There is no evidence of bowel obstruction. No evidence of abnormal bowel wall thickening or distention. No evidence of ascites or free air. No evidence of lymphadenopathy. CTA PELVIS: Aortic bifurcation and iliac vessels demonstrate no acute abnormality. No dissection or aneurysm. There is no evidence of bowel obstruction. No evidence of abnormal bowel wall thickening or distension. No ascites or free air. The bladder is unremarkable. No pelvic mass. No acute abnormality of the visualized osseous structures. Wall thickening of the aortic root with mildly dilated ascending thoracic aorta measuring 4.5 cm in diameter. Worsening atherosclerotic calcifications of the aortic root and ascending thoracic aorta. This was present in 2010 but has progressed. The soft tissue thickening of the wall of the ascending aorta may be related to chronic fibrosis. Extensive atherosclerotic calcifications of the aortic valve. No evidence of aortic dissection. Abdominal aorta is unremarkable in appearance. Cardiomegaly with evidence of prior CABG. No acute process in the lungs. No acute process in the abdomen or pelvis. [facility] Workstation ID: [id number] Carotid Duplex Result Date: 01/09/2022 Patient Info Name: VICKIE GONZALEZ Age: 66 years : 1955 Gender: Female Exam Date: 01/09/2022 11:00 AM Patient Status: Outpatient Foundation Director: Corina BOWDEN RVT^^^^ Referring Physician: ANGELICA RANDALL ; Attending Physician: ANGELICA RANDALL Indications I35.0 - Aortic valve stenosis, severe Z01.810 - Pre-operative cardiovascular examination R09.89 - Other specified symptoms and signs involving the circulatory and respiratory systems - Preop TAVR Procedure Description 49803 Duplex examination using B-mode, color and spectral Doppler of extracranial arteries; complete bilateral study. NASCET criteria is used when performing imaging correlation with carotid duplex interpretation. Conclusions * Right. * 1-49% stenosis of the proximal right internal carotid artery. * Right vertebral artery is patent with antegrade flow. * No evidence of stenosis in the right external carotid and subclavian arteries. * Left. * 1-49% stenosis of the proximal left internal carotid artery. * Left vertebral artery is patent with antegrade flow. * No evidence of stenosis in the left external carotid and subclavian arteries. Measurements -------- Name Value -------- Right PSV -------- Right Prox CCA PSV 85 cm/s Right Mid CCA PSV 81 cm/s Right Distal CCA PSV 70 cm/s Right Prox ICA PSV 61 cm/s Right Mid ICA PSV 96 cm/s Right Distal ICA PSV 92 cm/s Right ECA PSV 64 cm/s Right Vert PSV 87 cm/s Right Prox SCA PSV 177 cm/s Rt ICA/CCA Ratio 0.9 Measurements -------- Name Value -------- Right EDV -------- Right Prox CCA EDV 10 cm/s Right Mid CCA EDV 18 cm/s Right Distal CCA EDV 21 cm/s Right Prox ICA EDV 21 cm/s Right Mid ICA EDV 19 cm/s Right Distal ICA EDV 23 cm/s Right ECA EDV 0 cm/s Right Vert EDV 19 cm/s Measurements -------- Name Value -------- Left PSV -------- Left Prox CCA PSV 78 cm/s Left Mid CCA PSV 78 cm/s Left Distal CCA PSV 77 cm/s Left Prox ICA PSV 69 cm/s Left Mid ICA PSV 110 cm/s Left Distal ICA PSV 89 cm/s Left ECA PSV 53 cm/s Left Vert PSV 41 cm/s Left Prox SCA PSV 153 cm/s Lt ICA/CCA Ratio 0.9 Measurements -------- Name Value -------- Left EDV -------- Left Prox CCA EDV 11 cm/s Left Mid CCA EDV 21 cm/s Left Distal CCA EDV 19 cm/s Left Prox ICA EDV 20 cm/s Left Mid ICA EDV 32 cm/s Left Distal ICA EDV 24 cm/s Left ECA EDV 0 cm/s Left Vert EDV 11 cm/s Right Findings * Calcific plaque noted in the right internal carotid artery. Left Findings * Calcific plaque noted in the left internal carotid artery. . Report Signatures Echocardiogram complete Result Date: 12/30/2021 Patient Info Name: VICKIE GONZALEZ Age: 66 years : 1955 Gender: Female Ht: 168 cm Wt: 103 kg BSA: 2.23 m2 HR: 78 bpm BP: 161 / 78 mmHg Heart Rhythm: Sinus Rhythm Technical Quality: Good Exam Date: 12/30/2021 11:07 AM Patient Status: Outpatient Director Sales Training: Angelica Lynne RDCS, T Exam Type: ECHOCARDIOGRAM COMPLETE Study Info Indications I35.1 - Nonrheumatic aortic (valve) insufficiency Referring Physician: BLAINE SILVEIRA ; [id number] BMI: 36.64 kg/m2 Summary 1. Left ventricular systolic function is normal with an ejection fraction of 55%. 2. There is severe aortic valve stenosis with a peak velocity of 4.8 m/s, mean gradient of 48 mmHg, and aortic valve area of 1.3 cm2. This appears to be a change (and progression) from last year. all sampled peak velocities are greater than 4 m/s.. 3. There is moderate aortic valve regurgitation. 4. There is mild mitral valve regurgitation. 5. There is pulmonary hypertension, estimated right ventricle systolic pressure is 46 mmHg. 6. There is mild tricuspid valve regurgitation. 7. Mild left ventricular eccentric hypertrophy. 8. Septal wall motion abnormality consistent with cardiac surgery. History/Risk Factors Hypertension: Yes Dyslipidemia: Yes Coronary Artery Disease (CAD) Yes Diabetes Mellitus: No COPD: No Tobacco Use: Never Valve Disease - AV: Moderate History/Risk Factors aortic insufficiency, dyspnea. Patient has prior CABG. Prior Interventions CABG: Yes Procedure(s): Complete two-dimensional, color flow and Doppler transthoracic echocardiogram is performed. Left Ventricle Left ventricular chamber dimension is normal. Left ventricular systolic function is normal with an ejection fraction of 55%. Mild left ventricular eccentric hypertrophy. Left ventricular segmental wall motion is normal. The left ventricular diastolic function is normal. Septal wall motion abnormality consistent with cardiac surgery. Right Ventricle Right ventricular chamber dimension is mildly enlarged. Right ventricular systolic function is normal. Left Atria Left atrial chamber is moderately enlarged with a left atrial volume index of 42 ml/m2 by BP MOD. Right Atria Right atrial chamber dimension is enlarged. Aortic Valve There is no aortic valve sclerosis. There is severe aortic valve stenosis with a peak velocity of 4.8 m/s, mean gradient of 48 mmHg, and aortic valve area of 1.3 cm2. This appears to be a change (and progression) from last year. all sampled peak velocities are greater than 4 m/s.. There is moderate aortic valve regurgitation. Pulmonic Valve The pulmonic valve is normal. There is no pulmonic valve stenosis. There is trace pulmonic regurgitation. Mitral Valve The mitral valve has thickened leaflets. There is no mitral valve stenosis. There is mild mitral valve regurgitation. Tricuspid Valve The tricuspid valve leaflets are normal. There is no significant tricuspid valve stenosis. There is mild tricuspid valve regurgitation. There is pulmonary hypertension, estimated right ventricle systolic pressure is 46 mmHg. Pericardium/Pleural The pericardium appears normal. There is no pericardial effusion. Inferior Vena Cava Dilated inferior vena cava with >50% collapse upon inspiration consistent with elevated right atrial pressure. Aorta The aortic measurements are indexed to age and body surface area. The aortic root is normal measuring 3.0 cm with an index of 1.3 cm/m2. The proximal ascending aorta is normal measuring 3.2 cm with an index of 1.4 cm/m2. Left Ventricular Outflow Tract -------- Name Value Normal -------- LVOT 2D -------- LVOT Diameter 2.2 cm LVOT Doppler -------- LVOT Peak Velocity 1.4 m/s LVOT Mean Gradient 4 mmHg LVOT VTI 39 cm LVOT VTI/AV VTI Ratio 0.3 LVOT Stroke Volume 149 ml LVOT Stroke Index 66.49 ml/m2 Pulmonic Valve -------- Name Value Normal -------- PV Doppler -------- PV Peak Velocity 1.33 m/s PV Mean Gradient 4 mmHg PV VTI 37 cm Mitral Valve -------- Name Value Normal -------- MV Doppler -------- MV Peak Velocity 1.15 m/s MV Mean Gradient 2 mmHg MV VTI 28 cm MV Decel [place] 718 cm/s2 MV PHT 48 ms MV Area (PHT) 4.6 cm2 4.0-5.0 MV Area (Cont Eq VTI) 5.2 cm2 MV Area Index (Cont Eq VTI) 2.34 cm2/m2 MV Regurgitation Doppler -------- MR PISA Radius 0.6 cm MR PISA Alias Velocity 31 cm/s MR Vena Contracta 0.5 cm MR ERO (PISA) 2.3 cm2 MV Diastolic Function -------- MV E Peak Velocity 1 m/s MV A Peak Velocity 1 m/s MV E/A 1.2 MV Decel Time 165 ms MV Annular TDI -------- MV Septal e' Velocity 6.0 cm/s >=8.0 MV Septal a' Velocity 6.9 cm/s MV E/e' (Septal) 19.9 <=8.0 MV A/a' (Septal) 14.0 MV Lateral e' Velocity 19.1 cm/s >=10.0 MV Lateral a' Velocity 16.0 cm/s MV E/e' (Lateral) 6.2 <=8.0 MV A/a' (Lateral) 6.0 MV e' Average 12.54 cm/s MV a' Average 11.43 cm/s MV E/e' (Average) 13.1 MV A/a' (Average) 10.0 Tricuspid Valve -------- Name Value Normal -------- TV Regurgitation Doppler -------- TR Peak Velocity 3.09 m/s Estimated PAP/RSVP -------- RA Pressure 8 mmHg <=5 PA Systolic Pressure 46 mmHg <=36 RV Systolic Pressure 46 mmHg <36 Aorta -------- Name Value Normal -------- Ascending Aorta -------- Ao Root Diameter (2D) 3.0 cm 2.7-3.3 Ao Root Diam Index (2D) 1.3 cm/m2 1.6-2.0 Prox Asc Ao Diameter 3.2 cm 2.3-3.1 Prox Asc Ao Diameter Index 1.4 cm/m2 1.3-1.9 Venous -------- Name Value Normal -------- IVC/SVC -------- IVC Diameter (Exp 2D) 2.4 cm <=2.1 Aortic Valve -------- Name Value Normal -------- AV Doppler -------- AV Peak Velocity 4.8 m/s AV Mean Gradient 48 mmHg AV VTI 114 cm AV Area (Cont Eq VTI) 1.3 cm2 AV Area Index (Cont Eq VTI) 1 cm2/m2 AV Area (Cont Eq Alvarez) 1.1 cm2 AV Area Index (Cont Eq Alvarez) 0 cm2/m2 LVOT Vmax/AV Vmax 0.29 LVOT VTI/AV VTI Ratio 0.3 AV Regurgitation 2D -------- LVOT Area 3.8 cm2 AV Regurgitation Doppler -------- AR Peak Velocity 480 cm/s AR VTI 179 cm AR Decel [place] 490 cm/s2 AR PHT 283 ms AR Vena Contracta 0.7 cm AR PISA Alias Velocity 31 cm/s AR PISA Radius 0.6 cm AV ERO (PISA) 0.15 cm2 AR Volume (PISA) 26 ml Ventricles -------- Name Value Normal -------- LV Dimensions 2D/MM -------- IVS Diastolic Thickness (2D) 1.3 cm 0.6-0.9 LVID Diastole (2D) 5.1 cm 3.8-5.2 LVIW Diastolic Thickness (2D) 1.0 cm 0.6-0.9 LVID Systole (2D) 3.4 cm 2.2-3.5 LVOT Diameter 2.2 cm LV Mass (2D Cubed) 219.40 g 67.00-162.00 LV Mass Index (2D Cubed) 98 g/m2 43-95 Relative Wall Thickness (2D) 0.37 <=0.42 LV Fractional Shortening/Ejection Fraction 2D/MM -------- LV Fractional Shortening (2D) 34 % 27-45 LV EF (2D Teicholz) 62 % 54-74 LV Diastolic Volume (4C MOD) 110 ml LV Systolic Volume (4C MOD) 55 ml LV EF (4C MOD) 50 % LV Diastolic Volume (2C MOD) 112 ml LV Systolic Volume (2C MOD) 53 ml LV EF (2C MOD) 53 % LV Diastolic Volume (BP MOD) 112 ml 46-106 LV Diastolic Volume Index (BP MOD) 50 ml/m2 29-61 LV Systolic Volume (BP MOD) 56 ml 14-42 LV Systolic Volume Index (BP MOD) 25 ml/m2 8-24 LV EF (BP MOD) 50 % 55-70 LV Diastolic Length (4C) 8.2 cm LV Systolic Length (4C) 7.4 cm LV End Diastolic Volume (BP A-L) 115 ml LV End Systolic Volume (BP A-L) 56 ml LV EF (BP A-L) 51 % LV Stroke Volume (4C MOD) 55 ml LV SI (4C MOD) 24.66 ml/m2 RV Dimensions 2D/MM -------- RV Basal Diastolic Dimension 3.9 cm 2.5-4.1 RV Mid-Cavity Diastolic Dimension 3.7 cm 1.9-3.5 TAPSE 1.6 cm >=1.7 RV Systolic Function -------- RV s' Velocity 0.1 m/s 0.1-0.2 Atria -------- Name Value Normal -------- LA Dimensions -------- LA Area (4C) 26.7 cm2 LA Length (4C) 6.2 cm LA Area (2C) 25.8 cm2 LA Length (2C) 6.0 cm LA Volume (4C MOD) 96 ml LA Volume (2C MOD) 92 ml LA Volume (4C A-L) 98 ml LA Volume (2C A-L) 95 ml LA Volume (BP A-L) 98 ml LA Volume Index (BP A-L) 44 ml/m2 <=34 LA Volume (BP MOD) 95 ml LA Volume Index (BP MOD) 42 ml/m2 16-34 RA Dimensions -------- RA Systolic Major Nesbit Length (4C) 7.17 cm <=5.30 RA Area (4C) 28.7 cm2 <=18.0 RA Area (4C) Index 13 cm2/m2 RA ESV (4C MOD) 90 ml 15-27 RA ESV Index (4C MOD) 40 ml/m2 <=27 Report Signatures Finalized by Diego Fox MD, RPVI on 12/30/2021 05:14 PM XR Chest AP/PA and LAT Result Date: 01/09/2022 EXAMINATION: TWO XRAY VIEWS OF THE CHEST 01/09/2022 8:22 am COMPARISON: 05/13/2016 HISTORY: ORDERING SYSTEM PROVIDED HISTORY: Preop TAVR; TECHNOLOGIST PROVIDED HISTORY: Illness/Other Acuity: Acute Reason for Exam: Preop TAVR Cancer History: / Surgery, Radiation History: / Type of Encounter: Initial Additional signs and symptoms: Preop TAVR ORDERING SYSTEM PROVIDED DIAGNOSIS CODES: I35.0 Aortic valve stenosis, severe Z01.810 Pre-operative cardiovascular examination FINDINGS: Enlarged cardiac silhouette is stable. Median sternotomy wires and mediastinal clips are again noted. Lungs are clear without focal consolidation or pulmonary edema. No evidence of pleural effusion or pneumothorax. Bony thorax is stable. Stable examination. Stable cardiomegaly. Workstation ID: [id number] [facility] 01-21-2022 History and physical note INTERVAL HISTORY AND PHYSICAL Patient Name: Vickie Gonzalez Admit Date: [id number] MR #: [id number] : 1955 The H&P has been reviewed and the patient has been examined. I concur with the findings of the H&P. There are no significant changes. It is appropriate to proceed with the planned procedure. Angelica Randall CNP 01/21/2022 10:05 AM Source Note - Meir Arthur MD - 01/09/2022 1:07 PM EST [facility] T[facility]R CONSULT[facility] Patient Name: Vickie Gonzalez Admit Date: MR #: [id number] : 1955 Physicians: Nicol Ibanez MD (Family) Assessment and Plan: 66 y with severe symptomatic aortic stenosis with moderate aortic insufficiency with previous CABG. TAVR work-up ongoing. Together, with the patient, the health care team clarified all acceptable treatment options, ensured that both parties were well-informed and chose a course of care consistent with the patient's values/preferences as well as the best available medical evidence. Chief Complaint/Reason for Visit: Severe, symptomatic aortic stenosis/aortic insufficiency History of Present Illness: Vickie Gonzalez is a 66 y.o. y/o female with a history of atherosclerotic coronary artery disease s/p CABG with DYE to LAD, MISSY [place] RCA [place] [address] 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 Silveira for known AI. Over the summer she began experiencing jaw discomfort with chest pain with exertion, relieved with rest. She has limited her activity level since that time. She admits to dyspnea on exertion, worsening cough, occasional lightheadedness. She denies LE edema, orthopnea, PND, hospital admissions for heart failure. She underwent a repeat TTE which showed an LVEF 55% with severe aortic stenosis with mean aortic gradient 48mmHg, peak aortic velocity 4.8m/sec with severe AI, mild MR, mild TR and RVSP 46mmHg. Last cardiac catheterization in 2010 showed patent DYE and MISSY with 100% occluded RCA and LM. She was referred for consideration for transcatheter aortic valve replacement. STS 1.8%, NYHA Class III by symptoms. History: Past Medical History: Diagnosis Date Asthma Chest pain Fibrosing mediastinitis Hiatal hernia HTN (hypertension) Leg weakness Numbness in both legs Periaortic mass benign Skin cancer SOB (shortness of breath) on exertion Past Surgical History: Procedure Laterality Date CABG 02/11/2001 x3 CARDIAC CATHETERIZATION 2012 CARDIAC CATHETERIZATION Left 02/10/2001 EF 60% CARDIAC CATHETERIZATION Bilateral 08/26/2011 EF 55% TOTAL KNEE ARTHROPLASTY Left No family history on file. Social History Socioeconomic History Marital status: Tobacco Use Smoking status: Never Smoker Smokeless tobacco: Never Used Vaping Use Vaping Use: Never used Substance and Sexual Activity Alcohol use: Yes Alcohol/week: 0.0 standard drinks Comment: occasional Drug use: No with 2 biologic children, no heart disease in children No siblings with heart disease Mother with h/o CVA Allergy Information: I have reviewed the patient's allergies. Levaquin [levofloxacin] and Naprosyn [naproxen] Home Medications: Prior to Admission medications Medication Sig Start Date End Date Taking? Authorizing Provider albuterol 90 mcg/actuation inhaler Inhale 2 puffs every 6 (six) hours as needed for wheezing. Historical Provider, amLODIPine (NORVASC) 5 MG tablet Take 1 (one) tablet (5 mg total) by mouth daily . 10/27/18 Blaine Silveira MD aspirin 81 MG EC tablet Take 81 mg by mouth every other day . Historical Provider, azithromycin (ZITHROMAX) 250 MG tablet 01/04/22 Historical Provider, b complex vitamins tablet Take 1 tablet by mouth daily . Historical Provider, [id number]-[id number]-AMNJ ORAL Take 1 tablet by mouth daily . Historical Provider, cholecalciferol, vitamin D3, 50 mcg (2,000 unit) cap Take 2,000 Units by mouth daily . Historical Provider, diphenhydrAMINE (BENADRYL) 25 mg tablet Take 25 mg by mouth nightly . Historical Provider, fluticasone propionate (FLONASE) 50 mcg/actuation nasal spray Instill 2 sprays into each nostril daily as needed for allergies . Historical Provider, lactobacillus combo no.11 (Probiotic) 15 billion cell CpSP Take by mouth daily . Historical Provider, loratadine (CLARITIN) 10 mg tablet Take 10 mg by mouth daily . Historical Provider, losartan (COZAAR) 100 MG tablet Take 100 mg by mouth nightly . Historical Provider, metoprolol succinate (TOPROL-XL) 50 MG 24 hr tablet Take 1 (one) tablet (50 mg total) by mouth daily . 06/10/19 Blaine Silveira MD montelukast (SINGULAIR) 10 mg tablet Take 10 mg by mouth nightly . Historical Provider, nitroGLYCERIN (NITROSTAT) 0.[address] 1 (one) tablet (0.4 mg total) under the tongue every 5 (five) minutes as needed for chest pain , if no relief after 3 doses call 911 . 06/11/21 Blaine Silveira MD pravastatin (PRAVACHOL) 40 MG tablet Take 1 (one) tablet (40 mg total) by mouth nightly . 10/27/18 Blaine Silveira MD Current Medications: Review of Systems: The following system(s) were reviewed and pertinent findings noted: Constitutional: denies fever, chills denies weakness, fatigue denies weight changes CV: admits to chest pain, denies palpitations, denies syncope or near syncope Resp: denies shortness of breath, admits to dyspnea on exertion, admits to cough or wheeze, denies hemoptysis GI: denies nausea, vomiting, constipation or diarrhea. denies blood in stool or black tarry stools. denies hematuria Musc: denies joint pain or swelling, denies lower extremity edema Neuro: denies TIA, CVA. denies neuropathy, denies carpal tunnel syndrome, denies spinal stenosis Endo: denies polyuria, polydipsia Dental: last dental visit dental clearance obtained Physical Examination: Vital Signs: BP 143/80 Pulse 78 Temp 98 F (36.7 C) Resp 18 Ht 5' 6 Wt 106.3 kg (234 lb 5.6 oz) SpO2 97% BMI 37.82 kg/m General: Alert, cooperative, no distress, appears stated age Head: Normocephalic, without obvious abnormality, atraumatic Eyes: PERRL, conjunctiva/corneas clear, EOM's intact, fundi benign both eyes Throat: Lips, mucosa, and tongue normal; teeth and gums normal Neck: Supple, symmetrical, trachea midline, no adenopathy; thyroid: no enlargement/tenderness/nodules; radiating murmur to bilateral carotids Back: Symmetric, no curvature, ROM normal, no CVA tenderness Lungs: Clear to auscultation bilaterally, respirations Unlabored,mildly diminished respiratory effort Chest Wall: No tenderness or deformity Cardiovascular: Regular rate and rhythm, S1 and S2 normal, murmur noted, No rub or gallop; Pulses 2+ and symmetric all extremities Abdomen: Soft, non-tender, bowel sounds active all four quadrants,no masses, no organomegaly Extremities: Normal, atraumatic, no cyanosis or edema Skin: Skin color, texture, turgor normal, no rashes or lesions Musculoskeletal: Full range of motion of all extremities; no joint edema Neurologic: CNII-XII intact; normal strength, sensation and reflexes throughout Psych: Mood and affect appropriate Laboratory and Additional Data Reviewed: Laboratory 01/09/22 1:07 PM Microbiology 01/09/22 1:07 PM Pathology 01/09/22 1:07 PM Radiology 01/09/22 1:07 PM Cardiology 01/09/22 1:07 PM Medications 01/09/22 1:07 PM Transcriptions 01/09/22 1:07 PM Lab Results Component Value Date WBC 7.10 01/09/2022 HGB 12.2 01/09/2022 HCT 37.9 01/09/2022 MCV 85.0 01/09/2022 PLT 234 01/09/2022 RBC 4.46 01/09/2022 Lab Results Component Value Date GLUCOSE 104 (H) 01/09/2022 CALCIUM 9.7 01/09/2022 NA 142 01/09/2022 K 4.2 01/09/2022 CL 105 01/09/2022 BUN 21 01/09/2022 CREATININE 0.9 01/09/2022 Lab Results Component Value Date HGBA1C 6.1 (H) 01/09/2022 @CLVYQIH11@ CT TAVR Chest Abdomen Pelvis without hydration Result Date: 01/09/2022 EXAMINATION: CTA OF THE CHEST, ABDOMEN AND PELVIS WITH AND WITHOUT CONTRAST - TAVR PROTOCOL 01/09/2022 8:44 am TECHNIQUE: CTA of the chest, abdomen and pelvis was performed before and after the administration of intravenous contrast. Multiplanar reformatted images are provided for review. MIP images are provided for review. Dose modulation, iterative reconstruction, and/or weight based adjustment of the mA/kV was utilized to reduce the radiation dose to as low as reasonably achievable. COMPARISON: 08/26/2011 HISTORY: ORDERING SYSTEM PROVIDED HISTORY: Preop TAVR; TECHNOLOGIST PROVIDED HISTORY: Illness/Other Acuity: Unknown Reason for Exam: Preop TAVR Type of Encounter: Unknown Additional signs and symptoms: ORDERING SYSTEM PROVIDED DIAGNOSIS CODES: I35.0 Aortic valve stenosis, severe Z01.810 Pre-operative cardiovascular examination FINDINGS: CTA CHEST: There is an ascending thoracic aortic aneurysm measuring approximately 4.5 cm in diameter. There is extensive aortic valve calcifications with extensive atherosclerotic calcified and noncalcified plaque within the ascending thoracic aorta. There is soft tissue thickening surrounding the ascending thoracic aorta and aortic arch that may represent fibrosis. No evidence of thoracic aortic dissection. The descending thoracic aorta is unremarkable in appearance. There are borderline-sized mediastinal lymph nodes measuring up to 9 mm short axis dimension. These are stable since 2010 and likely reactive. The wall thickening of the aorta is also stable since 2011 examination. There is cardiomegaly. Evidence of prior CABG with median sternotomy wires and mediastinal clips. Central airways are clear. Thyroid is grossly unremarkable within the limits of CT. Bibasilar subsegmental atelectasis. Lungs are clear without focal consolidation or pulmonary edema. No evidence of pleural effusion or pneumothorax. Age-related degenerative changes of the visualized osseous structures without focal destructive lesion. CTA ABDOMEN: No evidence of abdominal aortic dissection or aneurysm. No significant atherosclerotic disease. Celiac axis, SMA, bilateral renal arteries and CYNTHIA are patent. Liver enhances normally without evidence of intrahepatic biliary ductal dilatation. The gallbladder is unremarkable. The spleen, pancreas and adrenal glands are unremarkable. The kidneys enhance symmetrically without evidence of hydronephrosis. The stomach and duodenal sweep demonstrate no acute abnormality. There is no evidence of bowel obstruction. No evidence of abnormal bowel wall thickening or distention. No evidence of ascites or free air. No evidence of lymphadenopathy. CTA PELVIS: Aortic bifurcation and iliac vessels demonstrate no acute abnormality. No dissection or aneurysm. There is no evidence of bowel obstruction. No evidence of abnormal bowel wall thickening or distension. No ascites or free air. The bladder is unremarkable. No pelvic mass. No acute abnormality of the visualized osseous structures. Wall thickening of the aortic root with mildly dilated ascending thoracic aorta measuring 4.5 cm in diameter. Worsening atherosclerotic calcifications of the aortic root and ascending thoracic aorta. This was present in 2011 but has progressed. The soft tissue thickening of the wall of the ascending aorta may be related to chronic fibrosis. Extensive atherosclerotic calcifications of the aortic valve. No evidence of aortic dissection. Abdominal aorta is unremarkable in appearance. Cardiomegaly with evidence of prior CABG. No acute process in the lungs. No acute process in the abdomen or pelvis. VK/tde Workstation ID: [id number] Carotid Duplex Result Date: 01/09/2022 Patient Info Name: VICKIE GONZALEZ Age: 66 years : 1955 Gender: Female Exam Date: 01/09/2022 11:00 AM Patient Status: Outpatient Foundation Director: Corina BOWDEN RVT^^^^ Referring Physician: ANGELICA RANDALL ; Attending Physician: ANGELICA RANDALL Indications I35.0 - Aortic valve stenosis, severe Z01.810 - Pre-operative cardiovascular examination R09.89 - Other specified symptoms and signs involving the circulatory and respiratory systems - Preop TAVR Procedure Description 74239 Duplex examination using B-mode, color and spectral Doppler of extracranial arteries; complete bilateral study. NASCET criteria is used when performing imaging correlation with carotid duplex interpretation. Conclusions * Right. * 1-49% stenosis of the proximal right internal carotid artery. * Right vertebral artery is patent with antegrade flow. * No evidence of stenosis in the right external carotid and subclavian arteries. * Left. * 1-49% stenosis of the proximal left internal carotid artery. * Left vertebral artery is patent with antegrade flow. * No evidence of stenosis in the left external carotid and subclavian arteries. Measurements -------- Name Value -------- Right PSV -------- Right Prox CCA PSV 85 cm/s Right Mid CCA PSV 81 cm/s Right Distal CCA PSV 70 cm/s Right Prox ICA PSV 61 cm/s Right Mid ICA PSV 96 cm/s Right Distal ICA PSV 92 cm/s Right ECA PSV 64 cm/s Right Vert PSV 87 cm/s Right Prox SCA PSV 177 cm/s Rt ICA/CCA Ratio 0.9 Measurements -------- Name Value -------- Right EDV -------- Right Prox CCA EDV 10 cm/s Right Mid CCA EDV 18 cm/s Right Distal CCA EDV 21 cm/s Right Prox ICA EDV 21 cm/s Right Mid ICA EDV 19 cm/s Right Distal ICA EDV 23 cm/s Right ECA EDV 0 cm/s Right Vert EDV 19 cm/s Measurements -------- Name Value -------- Left PSV -------- Left Prox CCA PSV 78 cm/s Left Mid CCA PSV 78 cm/s Left Distal CCA PSV 77 cm/s Left Prox ICA PSV 69 cm/s Left Mid ICA PSV 110 cm/s Left Distal ICA PSV 89 cm/s Left ECA PSV 53 cm/s Left Vert PSV 41 cm/s Left Prox SCA PSV 153 cm/s Lt ICA/CCA Ratio 0.9 Measurements -------- Name Value -------- Left EDV -------- Left Prox CCA EDV 11 cm/s Left Mid CCA EDV 21 cm/s Left Distal CCA EDV 19 cm/s Left Prox ICA EDV 20 cm/s Left Mid ICA EDV 32 cm/s Left Distal ICA EDV 24 cm/s Left ECA EDV 0 cm/s Left Vert EDV 11 cm/s Right Findings * Calcific plaque noted in the right internal carotid artery. Left Findings * Calcific plaque noted in the left internal carotid artery. . Report Signatures Echocardiogram complete Result Date: 12/30/2021 Patient Info Name: VICKIE GONZALEZ Age: 66 years : 1955 Gender: Female Ht: 168 cm Wt: 103 kg BSA: 2.23 m2 HR: 78 bpm BP: 161 / 78 mmHg Heart Rhythm: Sinus Rhythm Technical Quality: Good Exam Date: 12/30/2021 11:07 AM Patient Status: Outpatient Director Sales Training: Angelica Lynne, RAH, RVT Exam Type: ECHOCARDIOGRAM COMPLETE Study Info Indications I35.1 - Nonrheumatic aortic (valve) insufficiency Referring Physician: BLAINE SILVEIRA ; [id number] BMI: 36.64 kg/m2 Summary 1. Left ventricular systolic function is normal with an ejection fraction of 55%. 2. There is severe aortic valve stenosis with a peak velocity of 4.8 m/s, mean gradient of 48 mmHg, and aortic valve area of 1.3 cm2. This appears to be a change (and progression) from last year. all sampled peak velocities are greater than 4 m/s.. 3. There is moderate aortic valve regurgitation. 4. There is mild mitral valve regurgitation. 5. There is pulmonary hypertension, estimated right ventricle systolic pressure is 46 mmHg. 6. There is mild tricuspid valve regurgitation. 7. Mild left ventricular eccentric hypertrophy. 8. Septal wall motion abnormality consistent with cardiac surgery. History/Risk Factors Hypertension: Yes Dyslipidemia: Yes Coronary Artery Disease (CAD) Yes Diabetes Mellitus: No COPD: No Tobacco Use: Never Valve Disease - AV: Moderate History/Risk Factors aortic insufficiency, dyspnea. Patient has prior CABG. Prior Interventions CABG: Yes Procedure(s): Complete two-dimensional, color flow and Doppler transthoracic echocardiogram is performed. Left Ventricle Left ventricular chamber dimension is normal. Left ventricular systolic function is normal with an ejection fraction of 55%. Mild left ventricular eccentric hypertrophy. Left ventricular segmental wall motion is normal. The left ventricular diastolic function is normal. Septal wall motion abnormality consistent with cardiac surgery. Right Ventricle Right ventricular chamber dimension is mildly enlarged. Right ventricular systolic function is normal. Left Atria Left atrial chamber is moderately enlarged with a left atrial volume index of 42 ml/m2 by BP MOD. Right Atria Right atrial chamber dimension is enlarged. Aortic Valve There is no aortic valve sclerosis. There is severe aortic valve stenosis with a peak velocity of 4.8 m/s, mean gradient of 48 mmHg, and aortic valve area of 1.3 cm2. This appears to be a change (and progression) from last year. all sampled peak velocities are greater than 4 m/s.. There is moderate aortic valve regurgitation. Pulmonic Valve The pulmonic valve is normal. There is no pulmonic valve stenosis. There is trace pulmonic regurgitation. Mitral Valve The mitral valve has thickened leaflets. There is no mitral valve stenosis. There is mild mitral valve regurgitation. Tricuspid Valve The tricuspid valve leaflets are normal. There is no significant tricuspid valve stenosis. There is mild tricuspid valve regurgitation. There is pulmonary hypertension, estimated right ventricle systolic pressure is 46 mmHg. Pericardium/Pleural The pericardium appears normal. There is no pericardial effusion. Inferior Vena Cava Dilated inferior vena cava with >50% collapse upon inspiration consistent with elevated right atrial pressure. Aorta The aortic measurements are indexed to age and body surface area. The aortic root is normal measuring 3.0 cm with an index of 1.3 cm/m2. The proximal ascending aorta is normal measuring 3.2 cm with an index of 1.4 cm/m2. Left Ventricular Outflow Tract -------- Name Value Normal -------- LVOT 2D -------- LVOT Diameter 2.2 cm LVOT Doppler -------- LVOT Peak Velocity 1.4 m/s LVOT Mean Gradient 4 mmHg LVOT VTI 39 cm LVOT VTI/AV VTI Ratio 0.3 LVOT Stroke Volume 149 ml LVOT Stroke Index 66.49 ml/m2 Pulmonic Valve -------- Name Value Normal -------- PV Doppler -------- PV Peak Velocity 1.33 m/s PV Mean Gradient 4 mmHg PV VTI 37 cm Mitral Valve -------- Name Value Normal -------- MV Doppler -------- MV Peak Velocity 1.15 m/s MV Mean Gradient 2 mmHg MV VTI 28 cm MV Decel [place] 718 cm/s2 MV PHT 48 ms MV Area (PHT) 4.6 cm2 4.0-5.0 MV Area (Cont Eq VTI) 5.2 cm2 MV Area Index (Cont Eq VTI) 2.34 cm2/m2 MV Regurgitation Doppler -------- MR PISA Radius 0.6 cm MR PISA Alias Velocity 31 cm/s MR Vena Contracta 0.5 cm MR ERO (PISA) 2.3 cm2 MV Diastolic Function -------- MV E Peak Velocity 1 m/s MV A Peak Velocity 1 m/s MV E/A 1.2 MV Decel Time 165 ms MV Annular TDI -------- MV Septal e' Velocity 6.0 cm/s >=8.0 MV Septal a' Velocity 6.9 cm/s MV E/e' (Septal) 19.9 <=8.0 MV A/a' (Septal) 14.0 MV Lateral e' Velocity 19.1 cm/s >=10.0 MV Lateral a' Velocity 16.0 cm/s MV E/e' (Lateral) 6.2 <=8.0 MV A/a' (Lateral) 6.0 MV e' Average 12.54 cm/s MV a' Average 11.43 cm/s MV E/e' (Average) 13.1 MV A/a' (Average) 10.0 Tricuspid Valve -------- Name Value Normal -------- TV Regurgitation Doppler -------- TR Peak Velocity 3.09 m/s Estimated PAP/RSVP -------- RA Pressure 8 mmHg <=5 PA Systolic Pressure 46 mmHg <=36 RV Systolic Pressure 46 mmHg <36 Aorta -------- Name Value Normal -------- Ascending Aorta -------- Ao Root Diameter (2D) 3.0 cm 2.7-3.3 Ao Root Diam Index (2D) 1.3 cm/m2 1.6-2.0 Prox Asc Ao Diameter 3.2 cm 2.3-3.1 Prox Asc Ao Diameter Index 1.4 cm/m2 1.3-1.9 Venous -------- Name Value Normal -------- IVC/SVC -------- IVC Diameter (Exp 2D) 2.4 cm <=2.1 Aortic Valve -------- Name Value Normal -------- AV Doppler -------- AV Peak Velocity 4.8 m/s AV Mean Gradient 48 mmHg AV VTI 114 cm AV Area (Cont Eq VTI) 1.3 cm2 AV Area Index (Cont Eq VTI) 1 cm2/m2 AV Area (Cont Eq Alvarez) 1.1 cm2 AV Area Index (Cont Eq Alvarez) 0 cm2/m2 LVOT Vmax/AV Vmax 0.29 LVOT VTI/AV VTI Ratio 0.3 AV Regurgitation 2D -------- LVOT Area 3.8 cm2 AV Regurgitation Doppler -------- AR Peak Velocity 480 cm/s AR VTI 179 cm AR Decel [place] 490 cm/s2 AR PHT 283 ms AR Vena Contracta 0.7 cm AR PISA Alias Velocity 31 cm/s AR PISA Radius 0.6 cm AV ERO (PISA) 0.15 cm2 AR Volume (PISA) 26 ml Ventricles -------- Name Value Normal -------- LV Dimensions 2D/MM -------- IVS Diastolic Thickness (2D) 1.3 cm 0.6-0.9 LVID Diastole (2D) 5.1 cm 3.8-5.2 LVIW Diastolic Thickness (2D) 1.0 cm 0.6-0.9 LVID Systole (2D) 3.4 cm 2.2-3.5 LVOT Diameter 2.2 cm LV Mass (2D Cubed) 219.40 g 67.00-162.00 LV Mass Index (2D Cubed) 98 g/m2 43-95 Relative Wall Thickness (2D) 0.37 <=0.42 LV Fractional Shortening/Ejection Fraction 2D/MM -------- LV Fractional Shortening (2D) 34 % 27-45 LV EF (2D Teicholz) 62 % 54-74 LV Diastolic Volume (4C MOD) 110 ml LV Systolic Volume (4C MOD) 55 ml LV EF (4C MOD) 50 % LV Diastolic Volume (2C MOD) 112 ml LV Systolic Volume (2C MOD) 53 ml LV EF (2C MOD) 53 % LV Diastolic Volume (BP MOD) 112 ml 46-106 LV Diastolic Volume Index (BP MOD) 50 ml/m2 29-61 LV Systolic Volume (BP MOD) 56 ml 14-42 LV Systolic Volume Index (BP MOD) 25 ml/m2 8-24 LV EF (BP MOD) 50 % 55-70 LV Diastolic Length (4C) 8.2 cm LV Systolic Length (4C) 7.4 cm LV End Diastolic Volume (BP A-L) 115 ml LV End Systolic Volume (BP A-L) 56 ml LV EF (BP A-L) 51 % LV Stroke Volume (4C MOD) 55 ml LV SI (4C MOD) 24.66 ml/m2 RV Dimensions 2D/MM -------- RV Basal Diastolic Dimension 3.9 cm 2.5-4.1 RV Mid-Cavity Diastolic Dimension 3.7 cm 1.9-3.5 TAPSE 1.6 cm >=1.7 RV Systolic Function -------- RV s' Velocity 0.1 m/s 0.1-0.2 Atria -------- Name Value Normal -------- LA Dimensions -------- LA Area (4C) 26.7 cm2 LA Length (4C) 6.2 cm LA Area (2C) 25.8 cm2 LA Length (2C) 6.0 cm LA Volume (4C MOD) 96 ml LA Volume (2C MOD) 92 ml LA Volume (4C A-L) 98 ml LA Volume (2C A-L) 95 ml LA Volume (BP A-L) 98 ml LA Volume Index (BP A-L) 44 ml/m2 <=34 LA Volume (BP MOD) 95 ml LA Volume Index (BP MOD) 42 ml/m2 16-34 RA Dimensions -------- RA Systolic Major Nesbit Length (4C) 7.17 cm <=5.30 RA Area (4C) 28.7 cm2 <=18.0 RA Area (4C) Index 13 cm2/m2 RA ESV (4C MOD) 90 ml 15-27 RA ESV Index (4C MOD) 40 ml/m2 <=27 Report Signatures Finalized by Diego Fox MD, RPVI on 12/30/2021 05:14 PM XR Chest AP/PA and LAT Result Date: 01/09/2022 EXAMINATION: TWO XRAY VIEWS OF THE CHEST 01/09/2022 8:22 am COMPARISON: 05/13/2016 HISTORY: ORDERING SYSTEM PROVIDED HISTORY: Preop TAVR; TECHNOLOGIST PROVIDED HISTORY: Illness/Other Acuity: Acute Reason for Exam: Preop TAVR Cancer History: / Surgery, Radiation History: / Type of Encounter: Initial Additional signs and symptoms: Preop TAVR ORDERING SYSTEM PROVIDED DIAGNOSIS CODES: I35.0 Aortic valve stenosis, severe Z01.810 Pre-operative cardiovascular examination FINDINGS: Enlarged cardiac silhouette is stable. Median sternotomy wires and mediastinal clips are again noted. Lungs are clear without focal consolidation or pulmonary edema. No evidence of pleural effusion or pneumothorax. Bony thorax is stable. Stable examination. Stable cardiomegaly. Workstation ID: [id number] documented in this encounter [facility] 01-21-2022 Note Formatting of this n ote might be different from the original. VICKIE GONZALEZ CSN [id number] 1955 DATE 01/21/2022 OPERATIVE REPORT SURGEON ROBERT PUGH MD ANESTHESIOLOGIST DR. MOHAN PROCEDURE Implantation of #34 Medtronic Evolut PRO+ transcatheter aortic valve replacement via right common femoral artery approach. OTHER SURGEON Ivan. CARDIOLOGISTS Rudy, Socrates , and Toya. PREOPERATIVE DIAGNOSIS Severe symptomatic aortic stenosis. POSTOPERATIVE DIAGNOSIS Severe symptomatic aortic stenosis. INDICATIONS Vickie Gonzalez is a 66-year-old lady with severe symptomatic aortic stenosis, status post previous coronary bypass. She was referred for consideration of surgical versus transcatheter aortic valve replacement. OPERATIVE FINDINGS The time of her previous operation demonstrated severe mediastinal fibrosis and she was felt to be a poor operative risk and was therefore evaluated for the transcatheter approach. It was felt that a 34 Medtronic valve delivered through the right common femoral artery was the prudent approach. The procedure, indications, risks, potential complications, and alternatives have all been explained, all questions answered and she has consented to the procedure. OPERATION Patient on OR table in supine position under monitored sedation by Dr. Mohan. She was prepped and draped in usual sterile fashion. All vascular access was with ultrasound guidance and local infiltration with 1% xylocaine. 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 A temporary right ventricular pacing catheter was placed through the left common femoral vein and the Medtronic sheath was placed through the right common femoral artery. The patient had severe aortic calcification and it was felt that a balloon aortic valvuloplasty was warranted pre-deployment. She therefore underwent BAV after crossing the aortic valve using standard techniques, a 24 x 25 balloon aortic valvuloplasty was performed under rapid ventricular pacing which she tolerated well. The Medtronic valve was then advanced over the stiff wire, placed in the ventricle after removing the balloon device. Using standard techniques, a 34 Medtronic valve was then deployed with acceptable results. Post deployment, which she tolerated quite well, there was full expansion of the valve which seated easily. The mean gradient across the valve was only 5 mmHg and there was no evidence of a paravalvular leak. Catheters and sheaths were withdrawn using standard Perclose device for arterial closure. Sterile dressings were applied. The wound, sponge, and needle counts were correct. The patient tolerated the procedure well and was returned to the recovery room in satisfactory condition. ROBERT PUGH MD D 01/21/2022 12:30 [id number] T 01/21/2022 12:47 WJANIE/FLORINL [facility] 01-17-2022 Nurse Surgical operation note [facility] Surgical Department Patient Instructions for [facility]: Prior to surgery: Please bathe the night before and the morning of your surgery to help prevent the chance of any surgical site infection. If your physician provided you with a special soap please use it Please be sure to remove any jewelry and piercing's, and leave all valuables at home. Please do not apply any lotions or makeup on the morning of surgery. Please do not eat any FOOD 8 hours before the time you are scheduled to arrive at the hospital unless otherwise instructed by your Surgeon. You may drink CLEAR LIQUIDS(see-through liquids include: water, clear electrolyte drinks such as Gatorade, Powerade or Pedialyte, black coffee or plain tea) until 2 hours before coming to the hospital. If you were instructed to take any of your medications on the morning of surgery, please take them with small sips of water. Please remember to bring a list of your current medications, including any herbals and OTC's, on the day of surgery. You may brush your teeth in the morning as well as rinse out your mouth - but no swallowing. Please remember to bring your Insurance Card and photo ID with you on the day of surgery - we will make copies of these items and return them to you. Bring any Advance Directive if desired. When you arrive at the [facility] on the day of your surgery, please note that patient services technician parking is free. Pull up to the front of the building - an attendant will park your vehicle for you. Enter the building - ahead will be a podium and a guest service liaison who will greet you and direct you to the first floor waiting room. A nurse will meet you in the Surgery Waiting Room and will be the one to take you back to PreOp when they are ready for you. One adult may accompany you to PreOp if you so desire. Please be sure to remove any jewelry and piercing's, and leave all valuables at home. We recommend Children under the age of 16 not accompany you to the hospital Please see that all cellular devices are put on silence to keep your environment calm. Please be sure to wear loose, casual clothing on the day of surgery. Shoulders - wear a button down or zippered shirt Knees - wear sweat pants, shorts, or loose fitting pants There will be a bulky dressing over the incision Please bring any assistive devices, such as crutches & walkers, with you on the day of surgery if you have them. If you have a diagnosis of Sleep Apnea we request that you bring your C-Pap machine with you. If you have any implanted spinal and/or bladder stimulator devices, please bring the remote with you. Have you had a chance to view our online educational program in Cellular [employer]? It is very helpful to watch this as it can help you understand your surgery preparation process here at [facility]. It will provide you with additional important information that will help to make your surgery and recovery process as smooth as possible. After your surgery: If you are scheduled as an outpatient, a responsible licensed adult must be available for transportation, and is expected to remain at the hospital throughout the duration of your procedure. This person must be 18 years old or older. You are not allowed to drive yourself home. A responsible adult must stay with you for 24 hours following your surgery. This includes when being transported by a Medical Taxi Provided patient with parking, covid, and visitor information. Advised to contact surgeon's office with any additional questions. [facility] 01-17-2022 Nurse Note [facility] Surgical Department Patient Instructions for [facility]: Prior to surgery: Please bathe the night before and the morning of your surgery to help prevent the chance of any surgical site infection. If your physician provided you with a special soap please use it Please be sure to remove any jewelry and piercing's, and leave all valuables at home. Please do not apply any lotions or makeup on the morning of surgery. Please do not eat any FOOD 8 hours before the time you are scheduled to arrive at the hospital unless otherwise instructed by your Surgeon. You may drink CLEAR LIQUIDS(see-through liquids include: water, clear electrolyte drinks such as Gatorade, Powerade or Pedialyte, black coffee or plain tea) until 2 hours before coming to the hospital. If you were instructed to take any of your medications on the morning of surgery, please take them with small sips of water. Please remember to bring a list of your current medications, including any herbals and OTC's, on the day of surgery. You may brush your teeth in the morning as well as rinse out your mouth - but no swallowing. Please remember to bring your Insurance Card and photo ID with you on the day of surgery - we will make copies of these items and return them to you. Bring any Advance Directive if desired. When you arrive at the [facility] on the day of your surgery, please note that patient services technician parking is free. Pull up to the front of the building - an attendant will park your vehicle for you. Enter the building - ahead will be a podium and a guest service liaison who will greet you and direct you to the first floor waiting room. A nurse will meet you in the Surgery Waiting Room and will be the one to take you back to PreOp when they are ready for you. One adult may accompany you to PreOp if you so desire. Please be sure to remove any jewelry and piercing's, and leave all valuables at home. We recommend Children under the age of 16 not accompany you to the hospital Please see that all cellular devices are put on silence to keep your environment calm. Please be sure to wear loose, casual clothing on the day of surgery. Shoulders - wear a button down or zippered shirt Knees - wear sweat pants, shorts, or loose fitting pants There will be a bulky dressing over the incision Please bring any assistive devices, such as crutches & walkers, with you on the day of surgery if you have them. If you have a diagnosis of Sleep Apnea we request that you bring your C-Pap machine with you. If you have any implanted spinal and/or bladder stimulator devices, please bring the remote with you. Have you had a chance to view our online educational program in Cellular [employer]? It is very helpful to watch this as it can help you understand your surgery preparation process here at [facility]. It will provide you with additional important information that will help to make your surgery and recovery process as smooth as possible. After your surgery: If you are scheduled as an outpatient, a responsible licensed adult must be available for transportation, and is expected to remain at the hospital throughout the duration of your procedure. This person must be 18 years old or older. You are not allowed to drive yourself home. A responsible adult must stay with you for 24 hours following your surgery. This includes when being transported by a Medical Taxi Provided patient with parking, covid, and visitor information. Advised to contact surgeon's office with any additional questions. documented in this encounter [facility] 01-09-2022 Miscellaneous Notes Associated Problem(s): Aortic valve stenosis, severe 1. Severe aortic stenosis moderate aortic regurgitation 2. CAD status post CABG DYE LAD MISSY RCA with left main disease and fibrosing mediastinitis at time of CABG surgery Date has been getting to have chest pain with exertion shortness of breath since the summer she had a complicated coronary bypass surgery history with fibrosing mediastinum. --We will complete a coronary CT angiogram TAVR protocol and pay particular attention to left main left circumflex disease and also evidence of fibrosing aortic annulus sure there is no caseating granulomatous inflammation at the aortic annulus then present her case with the structural heart team for best recommendations Together, with the patient, the health care team clarified all acceptable treatment options, ensured that both parties were well-informed and chose a course of care consistent with the patient's values/preferences as well as the best available medical evidence. If you have questions, please do not hesitate to call me. I thank you for the opportunity to care for Vickie Gonzalez. Kind Regards, Dr. Lindsey Plummer MD, MSc, GIL[place]ERT[place], FACC, [facility]. [facility] Heart and Vascular documented in this encounter [facility] 01-09-2022 History of Presen t illness Narrative Structural Heart Disease Clinic Consult Heart & Vascular [facility] 01/09/2022 Lindsey Plummer MD [facility] [address] [address] Patient: Vickie Gonzalez Date of : 1955 (66 y.o.) Referring Provider: Meir Arthur MD PCP: Nicol Ibanez MD Assessment & Plan Aortic valve stenosis, severe 1. Severe aortic stenosis moderate aortic regurgitation 2. CAD status post CABG DYE LAD MISSY RCA with left main disease and fibrosing mediastinitis at time of CABG surgery Date has been getting to have chest pain with exertion shortness of breath since the summer she had a complicated coronary bypass surgery history with fibrosing mediastinum. --We will complete a coronary CT angiogram TAVR protocol and pay particular attention to left main left circumflex disease and also evidence of fibrosing aortic annulus sure there is no caseating granulomatous inflammation at the aortic annulus then present her case with the structural heart team for best recommendations Together, with the patient, the health care team clarified all acceptable treatment options, ensured that both parties were well-informed and chose a course of care consistent with the patient's values/preferences as well as the best available medical evidence. If you have questions, please do not hesitate to call me. I thank you for the opportunity to care for Vickie Gonzalez. Kind Regards, Dr. Lindsey Plummer MD, MSc, [place], FACC, [facility] [place]. [facility] Follow-up: No follow-ups on file. Chief Complaint: Initial Visit (Intake) (TAVR) Subjective History of Present Illness: Vickie Gonzalez is a 66 y.o. female There is a pleasant female presents today with her significant other who confirms the history of of atherosclerotic coronary artery disease s/p CABG with DYE to LAD, MISSY [place] RCA [place] [address] 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 Silveira for known AI. Over the summer she began experiencing jaw discomfort with chest pain with exertion, relieved with rest. She has limited her activity level since that time. She admits to dyspnea on exertion, worsening cough, occasional lightheadedness. She denies LE edema, orthopnea, PND, hospital admissions for heart failure. She underwent a repeat TTE which showed an LVEF 55% with severe aortic stenosis with mean aortic gradient 48mmHg, peak aortic velocity 4.8m/sec with severe AI, mild MR, mild TR and RVSP 46mmHg. Last cardiac catheterization in 2010 showed patent DYE and MISSY with 100% occluded RCA and LM. She was referred for consideration for transcatheter aortic valve replacement. STS 1.8%, NYHA Class III by symptoms Objective Tobacco Use Smoking Status Never Smoker Smokeless Tobacco Never Used Imaging: I independently reviewed the Echo and agree with the interpretation(s) with the following comments. Severe aortic stenosis ECG 12 Lead Final Result by Muriel Guerra RN (01/09/2022 [id number]) Echocardiogram complete Final Result by Diego Fox MD (12/30/2021 [id number]) [facility] Heart ([place] read) (Results Pending) HOME Medications: Patient's Medications New Prescriptions No medications on file Previous Medications ALBUTEROL 90 MCG/ACTUATION INHALER Inhale 2 puffs every 6 (six) hours as needed for wheezing. AMLODIPINE (NORVASC) 5 MG TABLET Take 1 (one) tablet (5 mg total) by mouth daily . ASPIRIN 81 MG EC TABLET Take 81 mg by mouth every other day . AZITHROMYCIN (ZITHROMAX) 250 MG TABLET B COMPLEX VITAMINS TABLET Take 1 tablet by mouth daily . [id number] ORAL Take 1 tablet by mouth daily . CHOLECALCIFEROL, VITAMIN D3, 50 MCG (2,000 UNIT) CAP Take 2,000 Units by mouth daily . DIPHENHYDRAMINE (BENADRYL) 25 MG TABLET Take 25 mg by mouth nightly . FLUTICASONE PROPIONATE (FLONASE) 50 MCG/ACTUATION NASAL SPRAY Instill 2 sprays into each nostril daily as needed for allergies . LACTOBACILLUS COMBO NO.11 (PROBIOTIC) 15 BILLION CELL CPSP Take by mouth daily . LORATADINE (CLARITIN) 10 MG TABLET Take 10 mg by mouth daily . LOSARTAN (COZAAR) 100 MG TABLET Take 100 mg by mouth nightly . METOPROLOL SUCCINATE (TOPROL-XL) 50 MG 24 HR TABLET Take 1 (one) tablet (50 mg total) by mouth daily . MONTELUKAST (SINGULAIR) 10 MG TABLET Take 10 mg by mouth nightly . NITROGLYCERIN (NITROSTAT) 0.[address] 1 (one) tablet (0.4 mg total) under the tongue every 5 (five) minutes as needed for chest pain , if no relief after 3 doses call 911 . PRAVASTATIN (PRAVACHOL) 40 MG TABLET Take 1 (one) tablet (40 mg total) by mouth nightly . Modified Medications No medications on file Discontinued Medications No medications on file Physical Examination: BP 143/80 (BP Location: Left arm, Patient Position: Sitting, BP Cuff Size: Adult) Pulse 78 Temp 98 F (36.7 C) (Oral) Resp 16 Ht 5' 6 Wt 106.3 kg (234 lb 5.6 oz) SpO2 97% BMI 37.82 kg/m No results found for: CHOL, LDLCALC, LDLDIRECT, TRIG, HDL documented in this encounter [facility] 01-09-2022 History of Presen t illness Narrative [facility] TAVR CONSULTATION Patient Name: Vickie Gonzalez Admit Date: MR #: [id number] : 1955 Physicians: Nicol Ibanez MD (Family) Assessment and Plan: 66 y with severe symptomatic aortic stenosis with moderate aortic insufficiency with previous CABG. TAVR work-up ongoing. Together, with the patient, the health care team clarified all acceptable treatment options, ensured that both parties were well-informed and chose a course of care consistent with the patient's values/preferences as well as the best available medical evidence. Chief Complaint/Reason for Visit: Severe, symptomatic aortic stenosis/aortic insufficiency History of Present Illness: Vickie Gonzalez is a 66 y.o. y/o female with a history of atherosclerotic coronary artery disease s/p CABG with DYE to LAD, MISSY [place]CA [place] [address] 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 Silveira for known AI. Over the summer she began experiencing jaw discomfort with chest pain with exertion, relieved with rest. She has limited her activity level since that time. She admits to dyspnea on exertion, worsening cough, occasional lightheadedness. She denies LE edema, orthopnea, PND, hospital admissions for heart failure. She underwent a repeat TTE which showed an LVEF 55% with severe aortic stenosis with mean aortic gradient 48mmHg, peak aortic velocity 4.8m/sec with severe AI, mild MR, mild TR and RVSP 46mmHg. Last cardiac catheterization in 2010 showed patent DYE and MISSY with 100% occluded RCA and LM. She was referred for consideration for transcatheter aortic valve replacement. STS 1.8%, NYHA Class III by symptoms. History: Past Medical History: Diagnosis Date Asthma Chest pain Fibrosing mediastinitis Hiatal hernia HTN (hypertension) Leg weakness Numbness in both legs Periaortic mass benign Skin cancer SOB (shortness of breath) on exertion Past Surgical History: Procedure Laterality Date CABG 02/11/2001 x3 CARDIAC CATHETERIZATION 2012 CARDIAC CATHETERIZATION Left 02/10/2001 EF 60% CARDIAC CATHETERIZATION Bilateral 08/26/2011 EF 55% TOTAL KNEE ARTHROPLASTY Left No family history on file. Social History Socioeconomic History Marital status: Tobacco Use Smoking status: Never Smoker Smokeless tobacco: Never Used Vaping Use Vaping Use: Never used Substance and Sexual Activity Alcohol use: Yes Alcohol/week: 0.0 standard drinks Comment: occasional Drug use: No with 2 biologic children, no heart disease in children No siblings with heart disease Mother with h/o CVA Allergy Information: I have reviewed the patient's allergies. Levaquin [levofloxacin] and Naprosyn [naproxen] Home Medications: Prior to Admission medications Medication Sig Start Date End Date Taking? Authorizing Provider albuterol 90 mcg/actuation inhaler Inhale 2 puffs every 6 (six) hours as needed for wheezing. Historical Provider, amLODIPine (NORVASC) 5 MG tablet Take 1 (one) tablet (5 mg total) by mouth daily . 10/27/18 Blaine Silveira MD aspirin 81 MG EC tablet Take 81 mg by mouth every other day . Historical Provider, azithromycin (ZITHROMAX) 250 MG tablet 01/04/22 Historical Provider, b complex vitamins tablet Take 1 tablet by mouth daily . Historical Provider, [id number] ORAL Take 1 tablet by mouth daily . Historical Provider, cholecalciferol, vitamin D3, 50 mcg (2,000 unit) cap Take 2,000 Units by mouth daily . Historical Provider, diphenhydrAMINE (BENADRYL) 25 mg tablet Take 25 mg by mouth nightly . Historical Provider, fluticasone propionate (FLONASE) 50 mcg/actuation nasal spray Instill 2 sprays into each nostril daily as needed for allergies . Historical Provider, lactobacillus combo no.11 (Probiotic) 15 billion cell CpSP Take by mouth daily . Historical Provider, loratadine (CLARITIN) 10 mg tablet Take 10 mg by mouth daily . Historical Provider, losartan (COZAAR) 100 MG tablet Take 100 mg by mouth nightly . Historical Provider, metoprolol succinate (TOPROL-XL) 50 MG 24 hr tablet Take 1 (one) tablet (50 mg total) by mouth daily . 06/10/19 Blaine Silveira MD montelukast (SINGULAIR) 10 mg tablet Take 10 mg by mouth nightly . Historical Provider, nitroGLYCERIN (NITROSTAT) 0.[address] 1 (one) tablet (0.4 mg total) under the tongue every 5 (five) minutes as needed for chest pain , if no relief after 3 doses call 911 . 06/11/21 Blaine Silveira MD pravastatin (PRAVACHOL) 40 MG tablet Take 1 (one) tablet (40 mg total) by mouth nightly . 10/27/18 Blaine Silveira MD Current Medications: Review of Systems: The following system(s) were reviewed and pertinent findings noted: Constitutional: denies fever, chills denies weakness, fatigue denies weight changes CV: admits to chest pain, denies palpitations, denies syncope or near syncope Resp: denies shortness of breath, admits to dyspnea on exertion, admits to cough or wheeze, denies hemoptysis GI: denies nausea, vomiting, constipation or diarrhea. denies blood in stool or black tarry stools. denies hematuria Musc: denies joint pain or swelling, denies lower extremity edema Neuro: denies TIA, CVA. denies neuropathy, denies carpal tunnel syndrome, denies spinal stenosis Endo: denies polyuria, polydipsia Dental: last dental visit dental clearance obtained Physical Examination: Vital Signs: BP 143/80 Pulse 78 Temp 98 F (36.7 C) Resp 18 Ht 5' 6 Wt 106.3 kg (234 lb 5.6 oz) SpO2 97% BMI 37.82 kg/m General: Alert, cooperative, no distress, appears stated age Head: Normocephalic, without obvious abnormality, atraumatic Eyes: PERRL, conjunctiva/corneas clear, EOM's intact, fundi benign both eyes Throat: Lips, mucosa, and tongue normal; teeth and gums normal Neck: Supple, symmetrical, trachea midline, no adenopathy; thyroid: no enlargement/tenderness/nodules; radiating murmur to bilateral carotids Back: Symmetric, no curvature, ROM normal, no CVA tenderness Lungs: Clear to auscultation bilaterally, respirations Unlabored,mildly diminished respiratory effort Chest Wall: No tenderness or deformity Cardiovascular: Regular rate and rhythm, S1 and S2 normal, murmur noted, No rub or gallop; Pulses 2+ and symmetric all extremities Abdomen: Soft, non-tender, bowel sounds active all four quadrants,no masses, no organomegaly Extremities: Normal, atraumatic, no cyanosis or edema Skin: Skin color, texture, turgor normal, no rashes or lesions Musculoskeletal: Full range of motion of all extremities; no joint edema Neurologic: CNII-XII intact; normal strength, sensation and reflexes throughout Psych: Mood and affect appropriate Laboratory and Additional Data Reviewed: Laboratory 01/09/22 1:07 PM Microbiology 01/09/22 1:07 PM Pathology 01/09/22 1:07 PM Radiology 01/09/22 1:07 PM Cardiology 01/09/22 1:07 PM Medications 01/09/22 1:07 PM Transcriptions 01/09/22 1:07 PM Lab Results Component Value Date WBC 7.10 01/09/2022 HGB 12.2 01/09/2022 HCT 37.9 01/09/2022 MCV 85.0 01/09/2022 PLT 234 01/09/2022 RBC 4.46 01/09/2022 Lab Results Component Value Date GLUCOSE 104 (H) 01/09/2022 CALCIUM 9.7 01/09/2022 NA 142 01/09/2022 K 4.2 01/09/2022 CL 105 01/09/2022 BUN 21 01/09/2022 CREATININE 0.9 01/09/2022 Lab Results Component Value Date HGBA1C 6.1 (H) 01/09/2022 @[id number]@ CT TAVR Chest Abdomen Pelvis without hydration Result Date: 01/09/2022 EXAMINATION: CTA OF THE CHEST, ABDOMEN AND PELVIS WITH AND WITHOUT CONTRAST - TAVR PROTOCOL 01/09/2022 8:44 am TECHNIQUE: CTA of the chest, abdomen and pelvis was performed before and after the administration of intravenous contrast. Multiplanar reformatted images are provided for review. MIP images are provided for review. Dose modulation, iterative reconstruction, and/or weight based adjustment of the mA/kV was utilized to reduce the radiation dose to as low as reasonably achievable. COMPARISON: 08/26/2011 HISTORY: ORDERING SYSTEM PROVIDED HISTORY: Preop TAVR; TECHNOLOGIST PROVIDED HISTORY: Illness/Other Acuity: Unknown Reason for Exam: Preop TAVR Type of Encounter: Unknown Additional signs and symptoms: ORDERING SYSTEM PROVIDED DIAGNOSIS CODES: I35.0 Aortic valve stenosis, severe Z01.810 Pre-operative cardiovascular examination FINDINGS: CTA CHEST: There is an ascending thoracic aortic aneurysm measuring approximately 4.5 cm in diameter. There is extensive aortic valve calcifications with extensive atherosclerotic calcified and noncalcified plaque within the ascending thoracic aorta. There is soft tissue thickening surrounding the ascending thoracic aorta and aortic arch that may represent fibrosis. No evidence of thoracic aortic dissection. The descending thoracic aorta is unremarkable in appearance. There are borderline-sized mediastinal lymph nodes measuring up to 9 mm short axis dimension. These are stable since 2011 and likely reactive. The wall thickening of the aorta is also stable since 2011 examination. There is cardiomegaly. Evidence of prior CABG with median sternotomy wires and mediastinal clips. Central airways are clear. Thyroid is grossly unremarkable within the limits of CT. Bibasilar subsegmental atelectasis. Lungs are clear without focal consolidation or pulmonary edema. No evidence of pleural effusion or pneumothorax. Age-related degenerative changes of the visualized osseous structures without focal destructive lesion. CTA ABDOMEN: No evidence of abdominal aortic dissection or aneurysm. No significant atherosclerotic disease. Celiac axis, SMA, bilateral renal arteries and CYNTHIA are patent. Liver enhances normally without evidence of intrahepatic biliary ductal dilatation. The gallbladder is unremarkable. The spleen, pancreas and adrenal glands are unremarkable. The kidneys enhance symmetrically without evidence of hydronephrosis. The stomach and duodenal sweep demonstrate no acute abnormality. There is no evidence of bowel obstruction. No evidence of abnormal bowel wall thickening or distention. No evidence of ascites or free air. No evidence of lymphadenopathy. CTA PELVIS: Aortic bifurcation and iliac vessels demonstrate no acute abnormality. No dissection or aneurysm. There is no evidence of bowel obstruction. No evidence of abnormal bowel wall thickening or distension. No ascites or free air. The bladder is unremarkable. No pelvic mass. No acute abnormality of the visualized osseous structures. Wall thickening of the aortic root with mildly dilated ascending thoracic aorta measuring 4.5 cm in diameter. Worsening atherosclerotic calcifications of the aortic root and ascending thoracic aorta. This was present in 2010 but has progressed. The soft tissue thickening of the wall of the ascending aorta may be related to chronic fibrosis. Extensive atherosclerotic calcifications of the aortic valve. No evidence of aortic dissection. Abdominal aorta is unremarkable in appearance. Cardiomegaly with evidence of prior CABG. No acute process in the lungs. No acute process in the abdomen or pelvis. VK/tde Workstation ID: [id number] Carotid Duplex Result Date: 01/09/2022 Patient Info Name: VICKIE GONZALEZ Age: 66 years : 1955 Gender: Female Exam Date: 01/09/2022 11:00 AM Patient Status: Outpatient Foundation Director: Corina BOWDEN RVT^^^^ Referring Physician: ANGELICA RANDALL ; Attending Physician: ANGELICA RANDALL Indications I35.0 - Aortic valve stenosis, severe Z01.810 - Pre-operative cardiovascular examination R09.89 - Other specified symptoms and signs involving the circulatory and respiratory systems - Preop TAVR Procedure Description 86423 Duplex examination using B-mode, color and spectral Doppler of extracranial arteries; complete bilateral study. NASCET criteria is used when performing imaging correlation with carotid duplex interpretation. Conclusions * Right. * 1-49% stenosis of the proximal right internal carotid artery. * Right vertebral artery is patent with antegrade flow. * No evidence of stenosis in the right external carotid and subclavian arteries. * Left. * 1-49% stenosis of the proximal left internal carotid artery. * Left vertebral artery is patent with antegrade flow. * No evidence of stenosis in the left external carotid and subclavian arteries. Measurements -------- Name Value -------- Right PSV -------- Right Prox CCA PSV 85 cm/s Right Mid CCA PSV 81 cm/s Right Distal CCA PSV 70 cm/s Right Prox ICA PSV 61 cm/s Right Mid ICA PSV 96 cm/s Right Distal ICA PSV 92 cm/s Right ECA PSV 64 cm/s Right Vert PSV 87 cm/s Right Prox SCA PSV 177 cm/s Rt ICA/CCA Ratio 0.9 Measurements -------- Name Value -------- Right EDV -------- Right Prox CCA EDV 10 cm/s Right Mid CCA EDV 18 cm/s Right Distal CCA EDV 21 cm/s Right Prox ICA EDV 21 cm/s Right Mid ICA EDV 19 cm/s Right Distal ICA EDV 23 cm/s Right ECA EDV 0 cm/s Right Vert EDV 19 cm/s Measurements -------- Name Value -------- Left PSV -------- Left Prox CCA PSV 78 cm/s Left Mid CCA PSV 78 cm/s Left Distal CCA PSV 77 cm/s Left Prox ICA PSV 69 cm/s Left Mid ICA PSV 110 cm/s Left Distal ICA PSV 89 cm/s Left ECA PSV 53 cm/s Left Vert PSV 41 cm/s Left Prox SCA PSV 153 cm/s Lt ICA/CCA Ratio 0.9 Measurements -------- Name Value -------- Left EDV -------- Left Prox CCA EDV 11 cm/s Left Mid CCA EDV 21 cm/s Left Distal CCA EDV 19 cm/s Left Prox ICA EDV 20 cm/s Left Mid ICA EDV 32 cm/s Left Distal ICA EDV 24 cm/s Left ECA EDV 0 cm/s Left Vert EDV 11 cm/s Right Findings * Calcific plaque noted in the right internal carotid artery. Left Findings * Calcific plaque noted in the left internal carotid artery. . Report Signatures Echocardiogram complete Result Date: 12/30/2021 Patient Info Name: VICKIE GONZALEZ Age: 66 years : 1955 Gender: Female Ht: 168 cm Wt: 103 kg BSA: 2.23 m2 HR: 78 bpm BP: 161 / 78 mmHg Heart Rhythm: Sinus Rhythm Technical Quality: Good Exam Date: 12/30/2021 11:07 AM Patient Status: Outpatient Director Sales Training: Angelica Lynne, RAH, RVT Exam Type: ECHOCARDIOGRAM COMPLETE Study Info Indications I35.1 - Nonrheumatic aortic (valve) insufficiency Referring Physician: BLAINE SILVEIRA ; [id number] BMI: 36.64 kg/m2 Summary 1. Left ventricular systolic function is normal with an ejection fraction of 55%. 2. There is severe aortic valve stenosis with a peak velocity of 4.8 m/s, mean gradient of 48 mmHg, and aortic valve area of 1.3 cm2. This appears to be a change (and progression) from last year. all sampled peak velocities are greater than 4 m/s.. 3. There is moderate aortic valve regurgitation. 4. There is mild mitral valve regurgitation. 5. There is pulmonary hypertension, estimated right ventricle systolic pressure is 46 mmHg. 6. There is mild tricuspid valve regurgitation. 7. Mild left ventricular eccentric hypertrophy. 8. Septal wall motion abnormality consistent with cardiac surgery. History/Risk Factors Hypertension: Yes Dyslipidemia: Yes Coronary Artery Disease (CAD) Yes Diabetes Mellitus: No COPD: No Tobacco Use: Never Valve Disease - AV: Moderate History/Risk Factors aortic insufficiency, dyspnea. Patient has prior CABG. Prior Interventions CABG: Yes Procedure(s): Complete two-dimensional, color flow and Doppler transthoracic echocardiogram is performed. Left Ventricle Left ventricular chamber dimension is normal. Left ventricular systolic function is normal with an ejection fraction of 55%. Mild left ventricular eccentric hypertrophy. Left ventricular segmental wall motion is normal. The left ventricular diastolic function is normal. Septal wall motion abnormality consistent with cardiac surgery. Right Ventricle Right ventricular chamber dimension is mildly enlarged. Right ventricular systolic function is normal. Left Atria Left atrial chamber is moderately enlarged with a left atrial volume index of 42 ml/m2 by BP MOD. Right Atria Right atrial chamber dimension is enlarged. Aortic Valve There is no aortic valve sclerosis. There is severe aortic valve stenosis with a peak velocity of 4.8 m/s, mean gradient of 48 mmHg, and aortic valve area of 1.3 cm2. This appears to be a change (and progression) from last year. all sampled peak velocities are greater than 4 m/s.. There is moderate aortic valve regurgitation. Pulmonic Valve The pulmonic valve is normal. There is no pulmonic valve stenosis. There is trace pulmonic regurgitation. Mitral Valve The mitral valve has thickened leaflets. There is no mitral valve stenosis. There is mild mitral valve regurgitation. Tricuspid Valve The tricuspid valve leaflets are normal. There is no significant tricuspid valve stenosis. There is mild tricuspid valve regurgitation. There is pulmonary hypertension, estimated right ventricle systolic pressure is 46 mmHg. Pericardium/Pleural The pericardium appears normal. There is no pericardial effusion. Inferior Vena Cava Dilated inferior vena cava with >50% collapse upon inspiration consistent with elevated right atrial pressure. Aorta The aortic measurements are indexed to age and body surface area. The aortic root is normal measuring 3.0 cm with an index of 1.3 cm/m2. The proximal ascending aorta is normal measuring 3.2 cm with an index of 1.4 cm/m2. Left Ventricular Outflow Tract -------- Name Value Normal -------- LVOT 2D -------- LVOT Diameter 2.2 cm LVOT Doppler -------- LVOT Peak Velocity 1.4 m/s LVOT Mean Gradient 4 mmHg LVOT VTI 39 cm LVOT VTI/AV VTI Ratio 0.3 LVOT Stroke Volume 149 ml LVOT Stroke Index 66.49 ml/m2 Pulmonic Valve -------- Name Value Normal -------- PV Doppler -------- PV Peak Velocity 1.33 m/s PV Mean Gradient 4 mmHg PV VTI 37 cm Mitral Valve -------- Name Value Normal -------- MV Doppler -------- MV Peak Velocity 1.15 m/s MV Mean Gradient 2 mmHg MV VTI 28 cm MV Decel [place] 718 cm/s2 MV PHT 48 ms MV Area (PHT) 4.6 cm2 4.0-5.0 MV Area (Cont Eq VTI) 5.2 cm2 MV Area Index (Cont Eq VTI) 2.34 cm2/m2 MV Regurgitation Doppler -------- MR PISA Radius 0.6 cm MR PISA Alias Velocity 31 cm/s MR Vena Contracta 0.5 cm MR ERO (PISA) 2.3 cm2 MV Diastolic Function -------- MV E Peak Velocity 1 m/s MV A Peak Velocity 1 m/s MV E/A 1.2 MV Decel Time 165 ms MV Annular TDI -------- MV Septal e' Velocity 6.0 cm/s >=8.0 MV Septal a' Velocity 6.9 cm/s MV E/e' (Septal) 19.9 <=8.0 MV A/a' (Septal) 14.0 MV Lateral e' Velocity 19.1 cm/s >=10.0 MV Lateral a' Velocity 16.0 cm/s MV E/e' (Lateral) 6.2 <=8.0 MV A/a' (Lateral) 6.0 MV e' Average 12.54 cm/s MV a' Average 11.43 cm/s MV E/e' (Average) 13.1 MV A/a' (Average) 10.0 Tricuspid Valve -------- Name Value Normal -------- TV Regurgitation Doppler -------- TR Peak Velocity 3.09 m/s Estimated PAP/RSVP -------- RA Pressure 8 mmHg <=5 PA Systolic Pressure 46 mmHg <=36 RV Systolic Pressure 46 mmHg <36 Aorta -------- Name Value Normal -------- Ascending Aorta -------- Ao Root Diameter (2D) 3.0 cm 2.7-3.3 Ao Root Diam Index (2D) 1.3 cm/m2 1.6-2.0 Prox Asc Ao Diameter 3.2 cm 2.3-3.1 Prox Asc Ao Diameter Index 1.4 cm/m2 1.3-1.9 Venous -------- Name Value Normal -------- IVC/SVC -------- IVC Diameter (Exp 2D) 2.4 cm <=2.1 Aortic Valve -------- Name Value Normal -------- AV Doppler -------- AV Peak Velocity 4.8 m/s AV Mean Gradient 48 mmHg AV VTI 114 cm AV Area (Cont Eq VTI) 1.3 cm2 AV Area Index (Cont Eq VTI) 1 cm2/m2 AV Area (Cont Eq Alvarez) 1.1 cm2 AV Area Index (Cont Eq Alvarez) 0 cm2/m2 LVOT Vmax/AV Vmax 0.29 LVOT VTI/AV VTI Ratio 0.3 AV Regurgitation 2D -------- LVOT Area 3.8 cm2 AV Regurgitation Doppler -------- AR Peak Velocity 480 cm/s AR VTI 179 cm AR Decel [place] 490 cm/s2 AR PHT 283 ms AR Vena Contracta 0.7 cm AR PISA Alias Velocity 31 cm/s AR PISA Radius 0.6 cm AV ERO (PISA) 0.15 cm2 AR Volume (PISA) 26 ml Ventricles -------- Name Value Normal -------- LV Dimensions 2D/MM -------- IVS Diastolic Thickness (2D) 1.3 cm 0.6-0.9 LVID Diastole (2D) 5.1 cm 3.8-5.2 LVIW Diastolic Thickness (2D) 1.0 cm 0.6-0.9 LVID Systole (2D) 3.4 cm 2.2-3.5 LVOT Diameter 2.2 cm LV Mass (2D Cubed) 219.40 g 67.00-162.00 LV Mass Index (2D Cubed) 98 g/m2 43-95 Relative Wall Thickness (2D) 0.37 <=0.42 LV Fractional Shortening/Ejection Fraction 2D/MM -------- LV Fractional Shortening (2D) 34 % 27-45 LV EF (2D Teicholz) 62 % 54-74 LV Diastolic Volume (4C MOD) 110 ml LV Systolic Volume (4C MOD) 55 ml LV EF (4C MOD) 50 % LV Diastolic Volume (2C MOD) 112 ml LV Systolic Volume (2C MOD) 53 ml LV EF (2C MOD) 53 % LV Diastolic Volume (BP MOD) 112 ml 46-106 LV Diastolic Volume Index (BP MOD) 50 ml/m2 29-61 LV Systolic Volume (BP MOD) 56 ml 14-42 LV Systolic Volume Index (BP MOD) 25 ml/m2 8-24 LV EF (BP MOD) 50 % 55-70 LV Diastolic Length (4C) 8.2 cm LV Systolic Length (4C) 7.4 cm LV End Diastolic Volume (BP A-L) 115 ml LV End Systolic Volume (BP A-L) 56 ml LV EF (BP A-L) 51 % LV Stroke Volume (4C MOD) 55 ml LV SI (4C MOD) 24.66 ml/m2 RV Dimensions 2D/MM -------- RV Basal Diastolic Dimension 3.9 cm 2.5-4.1 RV Mid-Cavity Diastolic Dimension 3.7 cm 1.9-3.5 TAPSE 1.6 cm >=1.7 RV Systolic Function -------- RV s' Velocity 0.1 m/s 0.1-0.2 Atria -------- Name Value Normal -------- LA Dimensions -------- LA Area (4C) 26.7 cm2 LA Length (4C) 6.2 cm LA Area (2C) 25.8 cm2 LA Length (2C) 6.0 cm LA Volume (4C MOD) 96 ml LA Volume (2C MOD) 92 ml LA Volume (4C A-L) 98 ml LA Volume (2C A-L) 95 ml LA Volume (BP A-L) 98 ml LA Volume Index (BP A-L) 44 ml/m2 <=34 LA Volume (BP MOD) 95 ml LA Volume Index (BP MOD) 42 ml/m2 16-34 RA Dimensions -------- RA Systolic Major Nesbit Length (4C) 7.17 cm <=5.30 RA Area (4C) 28.7 cm2 <=18.0 RA Area (4C) Index 13 cm2/m2 RA ESV (4C MOD) 90 ml 15-27 RA ESV Index (4C MOD) 40 ml/m2 <=27 Report Signatures Finalized by Diego Fox MD, RPVI on 12/30/2021 05:14 PM XR Chest AP/PA and LAT Result Date: 01/09/2022 EXAMINATION: TWO XRAY VIEWS OF THE CHEST 01/09/2022 8:22 am COMPARISON: 05/13/2016 HISTORY: ORDERING SYSTEM PROVIDED HISTORY: Preop TAVR; TECHNOLOGIST PROVIDED HISTORY: Illness/Other Acuity: Acute Reason for Exam: Preop TAVR Cancer History: / Surgery, Radiation History: / Type of Encounter: Initial Additional signs and symptoms: Preop TAVR ORDERING SYSTEM PROVIDED DIAGNOSIS CODES: I35.0 Aortic valve stenosis, severe Z01.810 Pre-operative cardiovascular examination FINDINGS: Enlarged cardiac silhouette is stable. Median sternotomy wires and mediastinal clips are again noted. Lungs are clear without focal consolidation or pulmonary edema. No evidence of pleural effusion or pneumothorax. Bony thorax is stable. Stable examination. Stable cardiomegaly. Workstation ID: [id number] [facility] TAVR CONSULTATION Patient Name: Vickie Gonzalez Admit Date: MR #: [id number] : 1955 Physicians: Nicol Ibanez MD (Family) Assessment and Plan: Chief Complaint/Reason for Visit: Severe, symptomatic aortic stenosis/aortic insufficiency History of Present Illness: Vickie Gonzalez is a 66 y.o. y/o female with a history of atherosclerotic coronary artery disease s/p CABG with DYE to LAD, MISSY [place] RCA [place] [address] 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 Sliveira for known AI. Over the summer she began experiencing jaw discomfort with chest pain with exertion, relieved with rest. She has limited her activity level since that time. She admits to dyspnea on exertion, worsening cough, occasional lightheadedness. She denies LE edema, orthopnea, PND, hospital admissions for heart failure. She underwent a repeat TTE which showed an LVEF 55% with severe aortic stenosis with mean aortic gradient 48mmHg, peak aortic velocity 4.8m/sec with severe AI, mild MR, mild TR and RVSP 46mmHg. Last cardiac catheterization in 2010 showed patent DYE and MISSY with 100% occluded RCA and LM. She was referred for consideration for transcatheter aortic valve replacement. STS 1.8%, NYHA Class III by symptoms. History: Past Medical History: Diagnosis Date Asthma Chest pain Fibrosing mediastinitis Hiatal hernia HTN (hypertension) Leg weakness Numbness in both legs Periaortic mass benign Skin cancer SOB (shortness of breath) on exertion Past Surgical History: Procedure Laterality Date CABG 02/11/2001 x3 CARDIAC CATHETERIZATION 2012 CARDIAC CATHETERIZATION Left 02/10/2001 EF 60% CARDIAC CATHETERIZATION Bilateral 08/26/2011 EF 55% TOTAL KNEE ARTHROPLASTY Left No family history on file. Social History Socioeconomic History Marital status: Tobacco Use Smoking status: Never Smoker Smokeless tobacco: Never Used Vaping Use Vaping Use: Never used Substance and Sexual Activity Alcohol use: Yes Alcohol/week: 0.0 standard drinks Comment: occasional Drug use: No with 2 biologic children, no heart disease in children No siblings with heart disease Mother with h/o CVA Allergy Information: I have reviewed the patient's allergies. Levaquin [levofloxacin] and Naprosyn [naproxen] Home Medications: Prior to Admission medications Medication Sig Start Date End Date Taking? Authorizing Provider albuterol 90 mcg/actuation inhaler Inhale 2 puffs every 6 (six) hours as needed for wheezing. Historical Provider, amLODIPine (NORVASC) 5 MG tablet Take 1 (one) tablet (5 mg total) by mouth daily . 10/27/18 Blaine Silveira MD aspirin 81 MG EC tablet Take 81 mg by mouth every other day . Historical Provider, azithromycin (ZITHROMAX) 250 MG tablet 01/04/22 Historical Provider, b complex vitamins tablet Take 1 tablet by mouth daily . Historical Provider, [id number]-[id number] ORAL Take 1 tablet by mouth daily . Historical Provider, cholecalciferol, vitamin D3, 50 mcg (2,000 unit) cap Take 2,000 Units by mouth daily . Historical Provider, diphenhydrAMINE (BENADRYL) 25 mg tablet Take 25 mg by mouth nightly . Historical Provider, fluticasone propionate (FLONASE) 50 mcg/actuation nasal spray Instill 2 sprays into each nostril daily as needed for allergies . Historical Provider, lactobacillus combo no.11 (Probiotic) 15 billion cell CpSP Take by mouth daily . Historical Provider, loratadine (CLARITIN) 10 mg tablet Take 10 mg by mouth daily . Historical Provider, losartan (COZAAR) 100 MG tablet Take 100 mg by mouth nightly . Historical Provider, metoprolol succinate (TOPROL-XL) 50 MG 24 hr tablet Take 1 (one) tablet (50 mg total) by mouth daily . 06/10/19 Blaine Silveira MD montelukast (SINGULAIR) 10 mg tablet Take 10 mg by mouth nightly . Historical Provider, nitroGLYCERIN (NITROSTAT) 0.[address] 1 (one) tablet (0.4 mg total) under the tongue every 5 (five) minutes as needed for chest pain , if no relief after 3 doses call 911 . 06/11/21 Blaine Silveira MD pravastatin (PRAVACHOL) 40 MG tablet Take 1 (one) tablet (40 mg total) by mouth nightly . 10/27/18 Blaine Silveira MD Current Medications: Review of Systems: The following system(s) were reviewed and pertinent findings noted: Constitutional: denies fever, chills denies weakness, fatigue denies weight changes CV: admits to chest pain, denies palpitations, denies syncope or near syncope Resp: denies shortness of breath, admits to dyspnea on exertion, admits to cough or wheeze, denies hemoptysis GI: denies nausea, vomiting, constipation or diarrhea. denies blood in stool or black tarry stools. denies hematuria Musc: denies joint pain or swelling, denies lower extremity edema Neuro: denies TIA, CVA. denies neuropathy, denies carpal tunnel syndrome, denies spinal stenosis Endo: denies polyuria, polydipsia Dental: last dental visit dental clearance obtained Physical Examination: Vital Signs: BP 143/80 Pulse 78 Temp 98 F (36.7 C) Resp 18 Ht 5' 6 Wt 106.3 kg (234 lb 5.6 oz) SpO2 97% BMI 37.82 kg/m General: Alert, cooperative, no distress, appears stated age Head: Normocephalic, without obvious abnormality, atraumatic Eyes: PERRL, conjunctiva/corneas clear, EOM's intact, fundi benign both eyes Throat: Lips, mucosa, and tongue normal; teeth and gums normal Neck: Supple, symmetrical, trachea midline, no adenopathy; thyroid: no enlargement/tenderness/nodules; radiating murmur to bilateral carotids Back: Symmetric, no curvature, ROM normal, no CVA tenderness Lungs: Clear to auscultation bilaterally, respirations Unlabored,mildly diminished respiratory effort Chest Wall: No tenderness or deformity Cardiovascular: Regular rate and rhythm, S1 and S2 normal, murmur noted, No rub or gallop; Pulses 2+ and symmetric all extremities Abdomen: Soft, non-tender, bowel sounds active all four quadrants,no masses, no organomegaly Extremities: Normal, atraumatic, no cyanosis or edema Skin: Skin color, texture, turgor normal, no rashes or lesions Musculoskeletal: Full range of motion of all extremities; no joint edema Neurologic: CNII-XII intact; normal strength, sensation and reflexes throughout Psych: Mood and affect appropriate Laboratory and Additional Data Reviewed: Laboratory 01/09/22 1:04 PM Microbiology 01/09/22 1:04 PM Pathology 01/09/22 1:04 PM Radiology 01/09/22 1:04 PM Cardiology 01/09/22 1:04 PM Medications 01/09/22 1:04 PM Transcriptions 01/09/22 1:04 PM Lab Results Component Value Date WBC 7.10 01/09/2022 HGB 12.2 01/09/2022 HCT 37.9 01/09/2022 MCV 85.0 01/09/2022 PLT 234 01/09/2022 RBC 4.46 01/09/2022 Lab Results Component Value Date GLUCOSE 104 (H) 01/09/2022 CALCIUM 9.7 01/09/2022 NA 142 01/09/2022 K 4.2 01/09/2022 CL 105 01/09/2022 BUN 21 01/09/2022 CREATININE 0.9 01/09/2022 Lab Results Component Value Date HGBA1C 6.1 (H) 01/09/2022 @DDFBGEG85@ CT TAVR Chest Abdomen Pelvis without hydration Result Date: 01/09/2022 EXAMINATION: CTA OF THE CHEST, ABDOMEN AND PELVIS WITH AND WITHOUT CONTRAST - TAVR PROTOCOL 01/09/2022 8:44 am TECHNIQUE: CTA of the chest, abdomen and pelvis was performed before and after the administration of intravenous contrast. Multiplanar reformatted images are provided for review. MIP images are provided for review. Dose modulation, iterative reconstruction, and/or weight based adjustment of the mA/kV was utilized to reduce the radiation dose to as low as reasonably achievable. COMPARISON: 08/26/2011 HISTORY: ORDERING SYSTEM PROVIDED HISTORY: Preop TAVR; TECHNOLOGIST PROVIDED HISTORY: Illness/Other Acuity: Unknown Reason for Exam: Preop TAVR Type of Encounter: Unknown Additional signs and symptoms: ORDERING SYSTEM PROVIDED DIAGNOSIS CODES: I35.0 Aortic valve stenosis, severe Z01.810 Pre-operative cardiovascular examination FINDINGS: CTA CHEST: There is an ascending thoracic aortic aneurysm measuring approximately 4.5 cm in diameter. There is extensive aortic valve calcifications with extensive atherosclerotic calcified and noncalcified plaque within the ascending thoracic aorta. There is soft tissue thickening surrounding the ascending thoracic aorta and aortic arch that may represent fibrosis. No evidence of thoracic aortic dissection. The descending thoracic aorta is unremarkable in appearance. There are borderline-sized mediastinal lymph nodes measuring up to 9 mm short axis dimension. These are stable since 2011 and likely reactive. The wall thickening of the aorta is also stable since 2011 examination. There is cardiomegaly. Evidence of prior CABG with median sternotomy wires and mediastinal clips. Central airways are clear. Thyroid is grossly unremarkable within the limits of CT. Bibasilar subsegmental atelectasis. Lungs are clear without focal consolidation or pulmonary edema. No evidence of pleural effusion or pneumothorax. Age-related degenerative changes of the visualized osseous structures without focal destructive lesion. CTA ABDOMEN: No evidence of abdominal aortic dissection or aneurysm. No significant atherosclerotic disease. Celiac axis, SMA, bilateral renal arteries and CYTNHIA are patent. Liver enhances normally without evidence of intrahepatic biliary ductal dilatation. The gallbladder is unremarkable. The spleen, pancreas and adrenal glands are unremarkable. The kidneys enhance symmetrically without evidence of hydronephrosis. The stomach and duodenal sweep demonstrate no acute abnormality. There is no evidence of bowel obstruction. No evidence of abnormal bowel wall thickening or distention. No evidence of ascites or free air. No evidence of lymphadenopathy. CTA PELVIS: Aortic bifurcation and iliac vessels demonstrate no acute abnormality. No dissection or aneurysm. There is no evidence of bowel obstruction. No evidence of abnormal bowel wall thickening or distension. No ascites or free air. The bladder is unremarkable. No pelvic mass. No acute abnormality of the visualized osseous structures. Wall thickening of the aortic root with mildly dilated ascending thoracic aorta measuring 4.5 cm in diameter. Worsening atherosclerotic calcifications of the aortic root and ascending thoracic aorta. This was present in 2011 but has progressed. The soft tissue thickening of the wall of the ascending aorta may be related to chronic fibrosis. Extensive atherosclerotic calcifications of the aortic valve. No evidence of aortic dissection. Abdominal aorta is unremarkable in appearance. Cardiomegaly with evidence of prior CABG. No acute process in the lungs. No acute process in the abdomen or pelvis. [facility]de Workstation ID: [id number] Carotid Duplex Result Date: 01/09/2022 Patient Info Name: VICKIE GONZALEZ Age: 66 years : 1955 Gender: Female Exam Date: 01/09/2022 11:00 AM Patient Status: Outpatient Foundation Director: Corina BOWDEN RVT^^^^ Referring Physician: ANGELICA RANDALL ; Attending Physician: ANGELICA RANDALL Indications I35.0 - Aortic valve stenosis, severe Z01.810 - Pre-operative cardiovascular examination R09.89 - Other specified symptoms and signs involving the circulatory and respiratory systems - Preop TAVR Procedure Description 10230 Duplex examination using B-mode, color and spectral Doppler of extracranial arteries; complete bilateral study. NASCET criteria is used when performing imaging correlation with carotid duplex interpretation. Conclusions * Right. * 1-49% stenosis of the proximal right internal carotid artery. * Right vertebral artery is patent with antegrade flow. * No evidence of stenosis in the right external carotid and subclavian arteries. * Left. * 1-49% stenosis of the proximal left internal carotid artery. * Left vertebral artery is patent with antegrade flow. * No evidence of stenosis in the left external carotid and subclavian arteries. Measurements -------- Name Value -------- Right PSV -------- Right Prox CCA PSV 85 cm/s Right Mid CCA PSV 81 cm/s Right Distal CCA PSV 70 cm/s Right Prox ICA PSV 61 cm/s Right Mid ICA PSV 96 cm/s Right Distal ICA PSV 92 cm/s Right ECA PSV 64 cm/s Right Vert PSV 87 cm/s Right Prox SCA PSV 177 cm/s Rt ICA/CCA Ratio 0.9 Measurements -------- Name Value -------- Right EDV -------- Right Prox CCA EDV 10 cm/s Right Mid CCA EDV 18 cm/s Right Distal CCA EDV 21 cm/s Right Prox ICA EDV 21 cm/s Right Mid ICA EDV 19 cm/s Right Distal ICA EDV 23 cm/s Right ECA EDV 0 cm/s Right Vert EDV 19 cm/s Measurements -------- Name Value -------- Left PSV -------- Left Prox CCA PSV 78 cm/s Left Mid CCA PSV 78 cm/s Left Distal CCA PSV 77 cm/s Left Prox ICA PSV 69 cm/s Left Mid ICA PSV 110 cm/s Left Distal ICA PSV 89 cm/s Left ECA PSV 53 cm/s Left Vert PSV 41 cm/s Left Prox SCA PSV 153 cm/s Lt ICA/CCA Ratio 0.9 Measurements -------- Name Value -------- Left EDV -------- Left Prox CCA EDV 11 cm/s Left Mid CCA EDV 21 cm/s Left Distal CCA EDV 19 cm/s Left Prox ICA EDV 20 cm/s Left Mid ICA EDV 32 cm/s Left Distal ICA EDV 24 cm/s Left ECA EDV 0 cm/s Left Vert EDV 11 cm/s Right Findings * Calcific plaque noted in the right internal carotid artery. Left Findings * Calcific plaque noted in the left internal carotid artery. . Report Signatures Echocardiogram complete Result Date: 12/30/2021 Patient Info Name: VICKIE GONZALEZ Age: 66 years : 1955 Gender: Female Ht: 168 cm Wt: 103 kg BSA: 2.23 m2 HR: 78 bpm BP: 161 / 78 mmHg Heart Rhythm: Sinus Rhythm Technical Quality: Good Exam Date: 12/30/2021 11:07 AM Patient Status: Outpatient Director Sales Training: Angelica Lynne, RAH, RVT Exam Type: ECHOCARDIOGRAM COMPLETE Study Info Indications I35.1 - Nonrheumatic aortic (valve) insufficiency Referring Physician: BLAINE SILVEIRA ; [id number] BMI: 36.64 kg/m2 Summary 1. Left ventricular systolic function is normal with an ejection fraction of 55%. 2. There is severe aortic valve stenosis with a peak velocity of 4.8 m/s, mean gradient of 48 mmHg, and aortic valve area of 1.3 cm2. This appears to be a change (and progression) from last year. all sampled peak velocities are greater than 4 m/s.. 3. There is moderate aortic valve regurgitation. 4. There is mild mitral valve regurgitation. 5. There is pulmonary hypertension, estimated right ventricle systolic pressure is 46 mmHg. 6. There is mild tricuspid valve regurgitation. 7. Mild left ventricular eccentric hypertrophy. 8. Septal wall motion abnormality consistent with cardiac surgery. History/Risk Factors Hypertension: Yes Dyslipidemia: Yes Coronary Artery Disease (CAD) Yes Diabetes Mellitus: No COPD: No Tobacco Use: Never Valve Disease - AV: Moderate History/Risk Factors aortic insufficiency, dyspnea. Patient has prior CABG. Prior Interventions CABG: Yes Procedure(s): Complete two-dimensional, color flow and Doppler transthoracic echocardiogram is performed. Left Ventricle Left ventricular chamber dimension is normal. Left ventricular systolic function is normal with an ejection fraction of 55%. Mild left ventricular eccentric hypertrophy. Left ventricular segmental wall motion is normal. The left ventricular diastolic function is normal. Septal wall motion abnormality consistent with cardiac surgery. Right Ventricle Right ventricular chamber dimension is mildly enlarged. Right ventricular systolic function is normal. Left Atria Left atrial chamber is moderately enlarged with a left atrial volume index of 42 ml/m2 by BP MOD. Right Atria Right atrial chamber dimension is enlarged. Aortic Valve There is no aortic valve sclerosis. There is severe aortic valve stenosis with a peak velocity of 4.8 m/s, mean gradient of 48 mmHg, and aortic valve area of 1.3 cm2. This appears to be a change (and progression) from last year. all sampled peak velocities are greater than 4 m/s.. There is moderate aortic valve regurgitation. Pulmonic Valve The pulmonic valve is normal. There is no pulmonic valve stenosis. There is trace pulmonic regurgitation. Mitral Valve The mitral valve has thickened leaflets. There is no mitral valve stenosis. There is mild mitral valve regurgitation. Tricuspid Valve The tricuspid valve leaflets are normal. There is no significant tricuspid valve stenosis. There is mild tricuspid valve regurgitation. There is pulmonary hypertension, estimated right ventricle systolic pressure is 46 mmHg. Pericardium/Pleural The pericardium appears normal. There is no pericardial effusion. Inferior Vena Cava Dilated inferior vena cava with >50% collapse upon inspiration consistent with elevated right atrial pressure. Aorta The aortic measurements are indexed to age and body surface area. The aortic root is normal measuring 3.0 cm with an index of 1.3 cm/m2. The proximal ascending aorta is normal measuring 3.2 cm with an index of 1.4 cm/m2. Left Ventricular Outflow Tract -------- Name Value Normal -------- LVOT 2D -------- LVOT Diameter 2.2 cm LVOT Doppler -------- LVOT Peak Velocity 1.4 m/s LVOT Mean Gradient 4 mmHg LVOT VTI 39 cm LVOT VTI/AV VTI Ratio 0.3 LVOT Stroke Volume 149 ml LVOT Stroke Index 66.49 ml/m2 Pulmonic Valve -------- Name Value Normal -------- PV Doppler -------- PV Peak Velocity 1.33 m/s PV Mean Gradient 4 mmHg PV VTI 37 cm Mitral Valve -------- Name Value Normal -------- MV Doppler -------- MV Peak Velocity 1.15 m/s MV Mean Gradient 2 mmHg MV VTI 28 cm MV Decel [place] 718 cm/s2 MV PHT 48 ms MV Area (PHT) 4.6 cm2 4.0-5.0 MV Area (Cont Eq VTI) 5.2 cm2 MV Area Index (Cont Eq VTI) 2.34 cm2/m2 MV Regurgitation Doppler -------- MR PISA Radius 0.6 cm MR PISA Alias Velocity 31 cm/s MR Vena Contracta 0.5 cm MR ERO (PISA) 2.3 cm2 MV Diastolic Function -------- MV E Peak Velocity 1 m/s MV A Peak Velocity 1 m/s MV E/A 1.2 MV Decel Time 165 ms MV Annular TDI -------- MV Septal e' Velocity 6.0 cm/s >=8.0 MV Septal a' Velocity 6.9 cm/s MV E/e' (Septal) 19.9 <=8.0 MV A/a' (Septal) 14.0 MV Lateral e' Velocity 19.1 cm/s >=10.0 MV Lateral a' Velocity 16.0 cm/s MV E/e' (Lateral) 6.2 <=8.0 MV A/a' (Lateral) 6.0 MV e' Average 12.54 cm/s MV a' Average 11.43 cm/s MV E/e' (Average) 13.1 MV A/a' (Average) 10.0 Tricuspid Valve -------- Name Value Normal -------- TV Regurgitation Doppler -------- TR Peak Velocity 3.09 m/s Estimated PAP/RSVP -------- RA Pressure 8 mmHg <=5 PA Systolic Pressure 46 mmHg <=36 RV Systolic Pressure 46 mmHg <36 Aorta -------- Name Value Normal -------- Ascending Aorta -------- Ao Root Diameter (2D) 3.0 cm 2.7-3.3 Ao Root Diam Index (2D) 1.3 cm/m2 1.6-2.0 Prox Asc Ao Diameter 3.2 cm 2.3-3.1 Prox Asc Ao Diameter Index 1.4 cm/m2 1.3-1.9 Venous -------- Name Value Normal -------- IVC/SVC -------- IVC Diameter (Exp 2D) 2.4 cm <=2.1 Aortic Valve -------- Name Value Normal -------- AV Doppler -------- AV Peak Velocity 4.8 m/s AV Mean Gradient 48 mmHg AV VTI 114 cm AV Area (Cont Eq VTI) 1.3 cm2 AV Area Index (Cont Eq VTI) 1 cm2/m2 AV Area (Cont Eq Alvarez) 1.1 cm2 AV Area Index (Cont Eq Alvarez) 0 cm2/m2 LVOT Vmax/AV Vmax 0.29 LVOT VTI/AV VTI Ratio 0.3 AV Regurgitation 2D -------- LVOT Area 3.8 cm2 AV Regurgitation Doppler -------- AR Peak Velocity 480 cm/s AR VTI 179 cm AR Decel [place] 490 cm/s2 AR PHT 283 ms AR Vena Contracta 0.7 cm AR PISA Alias Velocity 31 cm/s AR PISA Radius 0.6 cm AV ERO (PISA) 0.15 cm2 AR Volume (PISA) 26 ml Ventricles -------- Name Value Normal -------- LV Dimensions 2D/MM -------- IVS Diastolic Thickness (2D) 1.3 cm 0.6-0.9 LVID Diastole (2D) 5.1 cm 3.8-5.2 LVIW Diastolic Thickness (2D) 1.0 cm 0.6-0.9 LVID Systole (2D) 3.4 cm 2.2-3.5 LVOT Diameter 2.2 cm LV Mass (2D Cubed) 219.40 g 67.00-162.00 LV Mass Index (2D Cubed) 98 g/m2 43-95 Relative Wall Thickness (2D) 0.37 <=0.42 LV Fractional Shortening/Ejection Fraction 2D/MM -------- LV Fractional Shortening (2D) 34 % 27-45 LV EF (2D Teichsharonaz) 62 % 54-74 LV Diastolic Volume (4C MOD) 110 ml LV Systolic Volume (4C MOD) 55 ml LV EF (4C MOD) 50 % LV Diastolic Volume (2C MOD) 112 ml LV Systolic Volume (2C MOD) 53 ml LV EF (2C MOD) 53 % LV Diastolic Volume (BP MOD) 112 ml 46-106 LV Diastolic Volume Index (BP MOD) 50 ml/m2 29-61 LV Systolic Volume (BP MOD) 56 ml 14-42 LV Systolic Volume Index (BP MOD) 25 ml/m2 8-24 LV EF (BP MOD) 50 % 55-70 LV Diastolic Length (4C) 8.2 cm LV Systolic Length (4C) 7.4 cm LV End Diastolic Volume (BP A-L) 115 ml LV End Systolic Volume (BP A-L) 56 ml LV EF (BP A-L) 51 % LV Stroke Volume (4C MOD) 55 ml LV SI (4C MOD) 24.66 ml/m2 RV Dimensions 2D/MM -------- RV Basal Diastolic Dimension 3.9 cm 2.5-4.1 RV Mid-Cavity Diastolic Dimension 3.7 cm 1.9-3.5 TAPSE 1.6 cm >=1.7 RV Systolic Function -------- RV s' Velocity 0.1 m/s 0.1-0.2 Atria -------- Name Value Normal -------- LA Dimensions -------- LA Area (4C) 26.7 cm2 LA Length (4C) 6.2 cm LA Area (2C) 25.8 cm2 LA Length (2C) 6.0 cm LA Volume (4C MOD) 96 ml LA Volume (2C MOD) 92 ml LA Volume (4C A-L) 98 ml LA Volume (2C A-L) 95 ml LA Volume (BP A-L) 98 ml LA Volume Index (BP A-L) 44 ml/m2 <=34 LA Volume (BP MOD) 95 ml LA Volume Index (BP MOD) 42 ml/m2 16-34 RA Dimensions -------- RA Systolic Major Nesbit Length (4C) 7.17 cm <=5.30 RA Area (4C) 28.7 cm2 <=18.0 RA Area (4C) Index 13 cm2/m2 RA ESV (4C MOD) 90 ml 15-27 RA ESV Index (4C MOD) 40 ml/m2 <=27 Report Signatures Finalized by Diego Fox MD, RPVI on 12/30/2021 05:14 PM XR Chest AP/PA and LAT Result Date: 01/09/2022 EXAMINATION: TWO XRAY VIEWS OF THE CHEST 01/09/2022 8:22 am COMPARISON: 05/13/2016 HISTORY: ORDERING SYSTEM PROVIDED HISTORY: Preop TAVR; TECHNOLOGIST PROVIDED HISTORY: Illness/Other Acuity: Acute Reason for Exam: Preop TAVR Cancer History: / Surgery, Radiation History: / Type of Encounter: Initial Additional signs and symptoms: Preop TAVR ORDERING SYSTEM PROVIDED DIAGNOSIS CODES: I35.0 Aortic valve stenosis, severe Z01.810 Pre-operative cardiovascular examination FINDINGS: Enlarged cardiac silhouette is stable. Median sternotomy wires and mediastinal clips are again noted. Lungs are clear without focal consolidation or pulmonary edema. No evidence of pleural effusion or pneumothorax. Bony thorax is stable. Stable examination. Stable cardiomegaly. Workstation ID: [id number] documented in this encounter 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 06-10-2021 History of Presen t illness Narrative Patient Name: Vickie Gonzalez MR #: [id number] Interventional Cardiology Blaine Silveira MD, [facility] 06/10/21 Dear Nicol Ibanez MD, Vickie Gonzalez was seen in follow up for : Problem Coronary Artery Disease Involving [place] Coronary Artery of [place] Heart Without Angina Pectoris CABG 2000 Cath 2010 all grafts open Aortic Insufficiency Moderate to Severe Asx AI-- same 12/2017 only mild-moderate Elevated Sed Rate Hld (Hyperlipidemia) Assessment and Plan Coronary artery disease involving wales coronary artery of wales heart without angina pectoris Has had 2 spells of chest / jaw discomfort and shortness of breath, relieved with rest Will get a stress, she will also check and walk and if gets predictable may need a cath continue asa/metoprolol and will give sl ntg Aortic insufficiency symptoms could also be Aortic Stenosis/AI will recheck echo Elevated sed rate Has some finger arthritis and also could be fibrosiing mediastinitis 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 Orders Placed This Encounter Procedures NM Myocardial Perfusion Multiple SPECT Return in about 1 year (around 06/10/2022). EKG:Normal sinus rhythm. Subjective: Vickie Gonzalez is a 65 y.o. y/o female : Discussed cp and also tooth issues Denies chest discomfort, sob, palpitations, pnd, orthopnea,edema or syncope. Past History and Exam PMH: Past Medical History: Diagnosis Date Asthma Chest pain Fibrosing mediastinitis Hiatal hernia HTN (hypertension) Leg weakness Numbness in both legs Skin cancer SOB (shortness of breath) on exertion Physical exam: BP 148/73 (BP Location: Left arm, Patient Position: Sitting) Pulse 73 Ht 5' 6 Wt 103.4 kg (228 lb) SpO2 98% BMI 36.80 kg/m General: No acute distress, alert, and oriented x3. HEENT: Normocephalic, nl conjunctiva Neck: Supple, no gross thyromegaly,no palpable neck adenopathy Cardiovascular: regular rate and rhythm. 3/6 as/ai murmurs, .posJVD, No Carotid Bruits, no LE edema :Respiratory: Clear to auscultation bilaterally without wheezes, rhonchi, or rales Abdominal: soft, nontender, nondistended,no gross HSM or masses noted. Skin: Normal turgor,no major peripheral rashes noted. Extremities : No clubbing, cyanosis Neurological: Cranial nerves 2 through 12 intact grossly. No focal neurological deficits noted. Psych: Normal mood and affect. ROS/MA were reviewed Home Medications: Patient's Medications New Prescriptions No medications on file Previous Medications ALBUTEROL 90 MCG/ACTUATION INHALER Inhale 2 puffs every 6 (six) hours as needed for wheezing. AMLODIPINE (NORVASC) 5 MG TABLET Take 1 (one) tablet (5 mg total) by mouth daily . ASPIRIN 81 MG EC TABLET Take 81 mg by mouth every other day . B COMPLEX VITAMINS TABLET Take 1 tablet by mouth daily . MAVEZTH-JOPKJORUW-MZAN ORAL Take 1 tablet by mouth daily . CHOLECALCIFEROL, VITAMIN D3, 50 MCG (2,000 UNIT) CAP Take 2,000 Units by mouth daily . DIPHENHYDRAMINE (BENADRYL) 25 MG TABLET Take 25 mg by mouth nightly . FLUTICASONE PROPIONATE (FLONASE) 50 MCG/ACTUATION NASAL SPRAY Instill 2 sprays into each nostril daily as needed for allergies . LACTOBACILLUS COMBO NO.11 (PROBIOTIC) 15 BILLION CELL CPSP Take by mouth daily . LORATADINE (CLARITIN) 10 MG TABLET Take 10 mg by mouth daily . LOSARTAN (COZAAR) 100 MG TABLET Take 100 mg by mouth nightly . METOPROLOL SUCCINATE (TOPROL-XL) 50 MG 24 HR TABLET Take 1 (one) tablet (50 mg total) by mouth daily . MONTELUKAST (SINGULAIR) 10 MG TABLET Take 10 mg by mouth nightly . PRAVASTATIN (PRAVACHOL) 40 MG TABLET Take 1 (one) tablet (40 mg total) by mouth nightly . Modified Medications No medications on file Discontinued Medications AZELASTINE-FLUTICASONE (DYMISTA) 137-50 MCG/SPRAY SPRY Instill 1 spray into each nostril 2 (two) times a day . BECLOMETHASONE (QVAR) 80 MCG/ACTUATION INHALER Inhale 2 puffs 2 (two) times a day . PANTOPRAZOLE (PROTONIX) 40 MG TABLET Take 1 (one) tablet (40 mg total) by mouth daily . Review of Systems Constitutional: Negative for diaphoresis, malaise/fatigue, weight gain and weight loss. HENT: Negative for hearing loss, nosebleeds and tinnitus. Eyes: Negative for blurred vision and visual disturbance. Cardiovascular: Positive for dyspnea on exertion. Negative for chest pain, claudication, cyanosis, irregular heartbeat, leg swelling, near-syncope, orthopnea, palpitations, paroxysmal nocturnal dyspnea and syncope. Respiratory: Negative for hemoptysis, shortness of breath and snoring. Endocrine: Negative for cold intolerance and heat intolerance. Hematologic/Lymphatic: Does not bruise/bleed easily. Skin: Negative for flushing, poor wound healing and rash. Musculoskeletal: Positive for joint pain. Negative for back pain, muscle weakness and myalgias. Gastrointestinal: Negative for abdominal pain, change in bowel habit, melena, nausea and vomiting. Genitourinary: Negative for decreased libido and hematuria. Neurological: Negative for loss of balance and numbness. Psychiatric/Behavioral: Negative for memory loss. The patient is not nervous/anxious. documented in this encounter [facility] 06-10-2021 Instructions Zoila Cueto MA - 06/10/2021 11:15 AM EDT How to contact your Care Team: Provider: Dr. Silveira Nurse: Iliana Madsen RN In case of an emergency please call 911. REFILLS: When in need for refills please call your care team or the office at [phone]. Please include medication name, pharmacy name, and specify 30-day or 90-day supply. Please check with your pharmacy within 24 hours of request for your refill. You must follow up as directed to continue current refills. Thank you! documented in this encounter [facility] Diagnosis Coronary artery disease involving wales coronary artery of wales heart without angina pectoris Nonrheumatic aortic valve insufficiency Elevated sed rate Elevated sedimentation rate Mixed hyperlipidemia [facility] Diagnosis Nonrheumatic aortic valve insufficiency- Primary [facility] Diagnosis Nonrheumatic aortic valve insufficiency- Primary [facility] Diagnosis Aortic valve stenosis, severe- Primary Aortic valve disorders Pre-operative cardiovascular examination Other specified symptoms and signs involving the circulatory and respiratory systems [facility] Diagnosis Aortic valve stenosis, severe- Primary Aortic valve disorders Pre-operative cardiovascular examination Other abnormal findings in urine Abnormal coagulation profile Abnormal coagulation profile Dyspnea, unspecified type Abnormal finding of blood chemistry, unspecified [facility] Diagnosis Encounter for preprocedure screening laboratory testing for COVID-19- [facility] Diagnosis Encounter for preoperative screening laboratory testing for COVID-19 virus- Primary [facility] Diagnosis Encounter for preoperative screening laboratory testing for COVID-19 virus- Primary [facility] Diagnosis Severe aortic insufficiency- Primary Aortic valve stenosis, severe Aortic valve disorders Pre-operative cardiovascular examination [facility] Diagnosis Aortic valve stenosis, severe Aortic valve disorders Pre-operative cardiovascular examination [facility] Diagnosis Aortic valve stenosis, severe- Primary Aortic valve disorders Severe aortic insufficiency Aortic valve stenosis, severe Aortic valve disorders Severe aortic insufficiency Aortic valve stenosis, severe Aortic valve disorders Severe aortic insufficiency [facility] Diagnosis Aortic valve stenosis, severe Aortic valve disorders Severe aortic insufficiency Encounter for preprocedure screening laboratory testing for COVID-19- Primary Aortic valve stenosis, severe Aortic valve disorders Severe aortic insufficiency [facility] Diagnosis S/P TAVR (transcatheter aortic valve replacement)- Primary [facility] Diagnosis Severe aortic stenosis- Primary Aortic valve disorders S/P TAVR (transcatheter aortic valve replacement) [facility] Diagnosis S/P TAVR (transcatheter aortic valve replacement)- Primary [facility] Diagnosis S/P TAVR (transcatheter aortic valve replacement)- Primary Shortness of breath Shortness of breath [facility] Diagnosis S/P TAVR (transcatheter aortic valve replacement)- Primary [facility] Diagnosis S/P TAVR (transcatheter aortic valve replacement)- Primary Hypertension, unspecified type [facility] Diagnosis Osteoarthritis of right knee, unspecified osteoarthritis type- Primary Hypertension, unspecified type [facility] Diagnosis Osteoarthritis of right knee- Primary Osteoarthrosis, unspecified whether generalized or localized, lower leg Coronary artery disease involving wales coronary artery of wales heart without angina pectoris- Primary Osteoarthritis of right knee, unspecified osteoarthritis type Severe aortic insufficiency Osteoarthritis of right knee, unspecified osteoarthritis type documented in this encounter [facility] Discharge instructions* Attachments The following attachments cannot be sent through Care Everywhere. * Transcatheter Aortic Valve Implantation (LIONEL): Post-op (Malagasy) [facility] Narrative* Auth/Cert Specialty Diagnoses / Procedures Referred By Yanet t Referred To Contact Diagnoses severe aortic stenosis Procedures NJ TRANSCATHETER TRANSAPICAL REPLACEMT AORTIC VALVE Transcatheter Aortic Valve Replacement TRANSCATHETER AORTIC VALVE REPLACEMENT FEMORAL APPROACH Referral ID Status Reason Start Date Expiration Date Visits Re quested Visits Authorized [id number] [address] [facility] Assessments Diagnosis SOB (shortness of breath) Shortness of breath Diagnosis SOB (shortness of breath) Shortness of breath Coronary artery disease involving wales coronary artery of wales heart without angina pectoris Fibrosing mediastinitis Mediastinitis Nonrheumatic aortic valve insufficiency Diagnosis Nonrheumatic aortic valve insufficiency Summary Purpose Family History No Family History Records FoundNo Family History Records FoundNo Family History Records FoundNo Family History Records FoundNo Family History Records FoundNo Family History Records FoundNo Family History Records Found Advance Directives No Advanced Directives Records FoundDocuments on File Type Date Recorded Patient Scientific Diver Expl anation Advance Directives and Living Will Documents on File Type Date Recorded Patient Scientific Diver Expl anation Advance Directives and Livin g Will Advance Directives and Livin g Will 06/14/2019 12:00 AM Documents on File Type Date Recorded Patient Scientific Diver Expl anation Advance Directives and Livin g Will Advance Directives and Livin g Will 06/14/2019 12:00 AM Documents on File Type Date Recorded Patient Scientific Diver Expl anation Advance Directives and Livin g Will Advance Directives and Livin g Will 01/09/2022 7:51 AM Documents on File Type Date Recorded Patient Scientific Diver Expl anation Advance Directives and Livin g Will 01/21/2022 6:48 AM Advance Directives and Livin g Will 01/15/2022 7:51 AM Latest Code Status on File Code Status Date Activated Date Inactivated Comments Full Code 01/21/2022 4:36 PM Full Code - Unverified 01/15/2022 6:56 AM 01/15/2022 9:1 7 AM Latest Code Status on File Code Status Date Activated Date Inactivated Comments Full Code 01/21/2022 4:36 PM 01/22/2022 2:10 PM Documents on File Type Date Recorded Patient Scientific Diver Expl anation Advance Directives and Livin g Will 01/21/2022 6:48 AM Advance Directives and Livin g Will 01/15/2022 7:51 AM Latest Code Status on File Code Status Date Activated Date Inactivated Comments Full Code 01/21/2022 4:36 PM 01/22/2022 2:10 PM Full Code - Unverified 01/15/2022 6:56 AM 01/15/2022 9:1 7 AM Latest Code Status on File Code Status Date Activated Date Inactivated Comments Full Code 01/21/2022 4:36 PM 01/22/2022 2:10 PM Code Status History Code Status Date Activated Date Inactivated Comments Full Code - Unverified 01/15/2022 6:56 AM 01/15/2022 9:1 7 AM Latest Code Status on File Code Status Date Activated Date Inactivated Comments Full Code 01/21/2022 4:36 PM 01/22/2022 2:10 PM Code Status History Code Status Date Activated Date Inactivated Comments Full Code - Unverified 01/15/2022 6:56 AM 01/15/2022 9:1 7 AM Reason for Referral Status Reason Specialty Diagnoses / Procedures Referred By Contact Referred To Contact Pending Review Cardiology Diagnoses Nonrheumatic aortic valve insufficiency Procedures Echocardiogram complete Blaine Silveira MD [address] [place] [address] Status Reason Specialty Diagnoses / Procedures Referre d By Contact Referred To Contact Closed Cardiology Diagnoses Nonrheumatic aortic valve insufficiency Procedures [place] [address] [place], [place] [address] [address] Status Reason Specialty Diagnoses / Procedures Referred By Contact Referred To Contact Authorized Cardiology Diagnoses Coronary artery disease involving wales coronary artery of wales heart without angina pectoris Procedures ECG 12 Lead Blaine Silveira MD [address] [place] [address] Status Reason Specialty Diagnoses / Procedures Referred By Contact Referred To Contact New Request Radiology Diagnoses Coronary artery disease involving wales coronary artery of wales heart without angina pectoris Procedures NM Myocardial Perfusion Multiple SPECT Blaine Silveira MD [address] [place] [address] Status Reason Specialty Diagnoses / Procedures Referred By Contact Referred To Contact New Request Cardiology Diagnoses Nonrheumatic aortic valve insufficiency Procedures Echocardiogram complete Blaine Silveira MD [address] [place] [address] Status Reason Specialty Diagnoses / Procedures Referred By Contact Referred To Contact Pending Review Cardiology Diagnoses Nonrheumatic aortic valve insufficiency Procedures Echocardiogram complete Blaine Silveira MD [address] [place] [address] Specialty Diagnoses / Procedures Referred By Contac t Referred To Contact Cardiology Diagnoses Aortic valve stenosis, severe Pre-operative cardiovascular examination Procedures ECG 12 Lead DyeAngelica, [employer] [address] [place] [address] Referral ID Status Reason Start Date Expiration Date V isits Requested Visits Authorized [id number] Authorized 12/31/2021 12/31/2022 1 1 Specialty Diagnoses / Procedures Referred By Contac t Referred To Contact Cardiology Diagnoses Aortic valve stenosis, severe Pre-operative cardiovascular examination Other specified symptoms and signs involving the circulatory and respiratory systems Procedures Carotid Duplex Angelica Randall [employer] [address] [place] [address] Referral ID Status Reason Start Date Expiration Date V isits Requested Visits Authorized [id number] Authorized 12/31/2021 12/31/2022 1 1 Specialty Diagnoses / Procedures Referred By Contac t Referred To Contact Cardiology Diagnoses S/P TAVR (transcatheter aortic valve replacement) Procedures ECG 12 Lead DyeAngelica [employer] [address] [address] [place] [address] Referral ID Status Reason Start Date Expiration Date Visits Re quested Visits Authorized [id number] Closed 01/22/2022 01/22/2023 1 1 Specialty Diagnoses / Procedures Referred By Contac t Referred To Contact Cardiology Diagnoses S/P TAVR (transcatheter aortic valve replacement) Procedures Echocardiogram complete Angelica Randall [employer] [address] [address] Referral ID Status Reason Start Date Expiration Date Visits Re quested Visits Authorized [id number] Closed 01/22/2022 01/22/2023 1 1 Specialty Diagnoses / Procedures Referred By Contac t Referred To Contact Cardiac Rehabilitation Diagnoses S/P TAVR (transcatheter aortic valve replacement) Angelica Randall, [employer] [address] [address] Referral ID Status Reason Start Date Expiration Date V isits Requested Visits Authorized [id number] Authorized 01/21/2022 01/21/2023 1 1 Referral ID Status Reason Start Date Expiration Date Visits Re quested Visits Authorized [id number] Closed 06/19/2022 06/19/2023 1 1 Referral ID Status Reason Start Date Expiration Date V isits Requested Visits Authorized [id number] Authorized 06/19/2022 06/19/2023 1 1 Specialty Diagnoses / Procedures Referred By Contac t Referred To Contact Cardiology Diagnoses Osteoarthritis of right knee, unspecified osteoarthritis type Jass Pepe MD [address] [place] [address] [place] [address] Referral ID Status Reason Start Date Expiration Date Visits Requested Visits Authorized [id number] Authorized Specialty Services Required/Pat ient's Best Interest 09/26/2024 1 1 Specialty Diagnoses / Procedures Referred By Contac t Referred To Contact Radiology Diagnoses Osteoarthritis of right knee, unspecified osteoarthritis type Procedures CT Knee Right Without Contrast Jass Pepe MD [address] [place] [address] Referral ID Status Reason Start Date Expiration Date V isits Requested Visits Authorized [id number] New Request 09/27/2023 09/26/2024 1 1 History of Present Illness * Blaine Silveira MD - 06/06/2019 2:56 PM EDT Patient Name: Vickie Gonzalez [facility] MR #: [id number] Interventional Cardiology Blaine Silveira MD, [facility] 06/06/19 Dear Nicol Ibanez MD, Vickie Gonzalez was seen in follow up for : Problem Coronary Artery Disease Involving [place] Coronary Artery of [place] Heart Without Angina Pectoris CABG 2000 Cath 2010 all grafts open Aortic Insufficiency Moderate to Severe Asx AI-- same 12/2017 Fibrosing Mediastinitis Dx at time of cabg Assessment and Plan Coronary artery disease involving wales coronary artery of wales heart without angina pectoris Rare angina Doing well, Medications reviewed and will continue current meds Followup 1 year Fibrosing mediastinitis Having pulmonary issues and cough-- cough is productive Not sure how much is pulmonary and Mediastinitis issues Aortic insufficiency No real chf symptoms Does have JVD will check echo again for AI and LV size Thank you or allowing me to participate in the care of your patients. Orders Placed This Encounter Procedures Echocardiogram complete Return in about 1 year (around 06/06/2020). EKG:not done Subjective: Problem with chronic cough Denies chest discomfort, sob, palpitations, pnd, orthopnea,edema or syncope. Past History and Exam PMH: Past Medical History: Diagnosis Date Asthma Chest pain Fibrosing mediastinitis Hiatal hernia HTN (hypertension) Leg weakness Numbness in both legs Skin cancer SOB (shortness of breath) on exertion Physical exam: BP (!) 159/75 (BP Location: Left arm, Patient Position: Sitting) Pulse 71 Ht 5' 6 Wt 120.7 kg (266 lb 3.2 oz) SpO2 96% BMI 42.97 kg/m General: No acute distress, alert, and oriented x3. HEENT: Normocephalic, Neck: Supple, Cardiovascular: Regular rate and rhythm. 2-3/6 sys/hurtado, murmurs, pos JVD, No Carotid Bruits, LE edema Respiratory: Clear to auscultation bilaterally Abdominal: Soft, nontender, nondistended,.obese Skin: Normal turgor, well-hydrated, Extremities : No clubbing cyanosis Neurological: Cranial nerves 2 through 12 intact grossly. No focal neurological deficits noted. Psych: Normal mood and affect. ROS/MA were reviewed Home Medications: Patient's Medications New Prescriptions No medications on file Previous Medications ALBUTEROL 90 MCG/ACTUATION INHALER Inhale 2 puffs every 6 (six) hours as needed for wheezing. AMLODIPINE (NORVASC) 5 MG TABLET Take 1 (one) tablet (5 mg total) by mouth daily . ASPIRIN 81 MG EC TABLET Take 81 mg by mouth every other day . AZELASTINE-FLUTICASONE (DYMISTA) 137-50 MCG/SPRAY SPRY Instill 1 spray into each nostril 2 (two) times a day . BECLOMETHASONE (QVAR) 80 MCG/ACTUATION INHALER Inhale 2 puffs 2 (two) times a day . [id number] ORAL Take 1 tablet by mouth daily . CHOLECALCIFEROL, VITAMIN D3, 5,000 UNIT TAB Take 5,000 Units by mouth daily DIPHENHYDRAMINE (BENADRYL) 25 MG TABLET Take 25 mg by mouth nightly . LORATADINE (CLARITIN) 10 MG TABLET Take 10 mg by mouth daily . LOSARTAN (COZAAR) 50 MG TABLET Take 50 mg by mouth nightly . METOPROLOL SUCCINATE (TOPROL-XL) 50 MG 24 HR TABLET Take 1 (one) tablet (50 mg total) by mouth daily . MONTELUKAST (SINGULAIR) 10 MG TABLET Take 10 mg by mouth nightly . PANTOPRAZOLE (PROTONIX) 40 MG TABLET Take 40 mg by mouth daily . PRAVASTATIN (PRAVACHOL) 40 MG TABLET Take 1 (one) tablet (40 mg total) by mouth nightly . Modified Medications No medications on file Discontinued Medications OMEPRAZOLE (PRILOSEC) 20 MG CAPSULE Take 1 capsule (20 mg total) by mouth daily. VALSARTAN (DIOVAN) 160 MG TABLET Take 1 (one) tablet (160 mg total) by mouth daily. * Zoila Cueto MA - 06/06/2019 2:38 PM EDT Review of Systems Constitution: Positive for malaise/fatigue. Negative for diaphoresis, weight gain and weight loss. HENT: Negative for hearing loss, nosebleeds and tinnitus. Eyes: Negative for blurred vision and visual disturbance. Cardiovascular: Positive for dyspnea on exertion and leg swelling. Negative for chest pain, claudication, cyanosis, irregular heartbeat, near-syncope, orthopnea, palpitations, paroxysmal nocturnal dyspnea and syncope. Sleeps on elevated pillow Respiratory: Positive for shortness of breath. Negative for hemoptysis and snoring. Endocrine: Negative for cold intolerance and heat intolerance. Hematologic/Lymphatic: Bruises/bleeds easily. Skin: Negative for flushing, poor wound healing and rash. Musculoskeletal: Positive for muscle cramps. Negative for back pain, muscle weakness and myalgias. Gastrointestinal: Negative for abdominal pain, change in bowel habit, melena, nausea and vomiting. Genitourinary: Positive for decreased libido. Negative for hematuria. Neurological: Positive for loss of balance. Negative for numbness. Psychiatric/Behavioral: Negative for memory loss. The patient is not nervous/anxious. documented in this encounter Additional Source Comments INFORMATION SOURCE (unrecogn ized section and content) DATE CREATED AUTHOR AUTHOR'S ORGANIZ ATION 09/10/2022 [facility] DATE CREATED AUTHOR AUTHOR'S ORGANIZ ATION 01/25/2023 [facility] DATE CREATED AUTHOR AUTHOR'S ORGANIZ ATION 02/22/2023 [facility] DATE CREATED AUTHOR AUTHOR'S ORGANIZ ATION 10/01/2023 [facility] DATE CREATED AUTHOR AUTHOR'S ORGANIZ ATION 10/22/2023 [facility] DATE CREATED AUTHOR AUTHOR'S ORGANIZ ATION 11/15/2023 [facility] Reason for Visit (unrecogniz ed section and content) Status Reason Specialty Diagnoses / Procedures Referre d By Contact Referred To Contact Closed Cardiology Diagnoses Nonrheumatic aortic valve insufficiency Procedures Echocardiogram complete Blaine Silveira MD [address] [place] [address] Reason Comments Annual Exam Jaw Pain Shortness of Breath Reason Comments Initial Visit (Intake) TAVR Reason Comments Follow-up 2 Week TAVR Reason Comments Follow-up 1 Year TAVR Reason Comments Follow-up Specialty Diagnoses / Procedures Referred By Contshilpi t Referred To Contact Cardiology Diagnoses Osteoarthritis of right knee, unspecified osteoarthritis type Jass Pepe MD [address] [id number] Blaine Silveira MD [address] [id number] Referral ID Status Reason Start Date Expiration Date V isits Requested Visits Authorized [id number] Closed Specialty Services Required/Leda ent's Best Interest 09/27/2023 09/26/2024 1 1 Assessment & Plan Note - Blaine Silveira MD - 06/06/2019 2:53 PM EDTAssessment & Plan Note - Blaine Silveira MD - 06/06/2019 2:48 PM EDT Miscellaneous Notes (unrecog nized section and content) Associated Problem(s): Aortic insufficiency No real chf symptoms Does have JVD will check echo again for AI and LV size Associated Problem(s): Fibrosing mediastinitis Having pulmonary issues and cough-- cough is productive Not sure how much is pulmonary and Mediastinitis issues Associated Problem(s): Coronary artery disease involving wales coronary artery of wales heart without angina pectoris Rare angina Doing well, Medications reviewed and will continue current meds Followup 1 year documented in this encounter Care Teams (unrecognized sec tion and content) Filemaker Developer Relationship Specialty Start Date End Date Nicol Ibanez MD [address] [place] [address] PCP - General 08/26/11 Jass Pepe MD [address] [place] [address] Consulting Physician Orthopedic Surgery 05/20/16 Filemaker Developer Relationship Specialty Start Date End Date Nicol Ibanez MD [address] [place] [address] PCP - General 08/26/11 Jass Pepe MD [address] [place] [address] Consulting Physician Orthopedic Surgery 05/20/16 Filemaker Developer Relationship Specialty Start Date End Date Nicol Ibanez MD [address] [place] [address] PCP - General 08/26/11 Jass Pepe MD [address] [place] [address] Consulting Physician Orthopedic Surgery 05/20/16 Filemaker Developer Relationship Specialty Start Date End Date Nicol Ibanez MD [address] [place] [address] PCP - General 08/26/11 Jass Pepe MD [address] [place] [address] Consulting Physician Orthopedic Surgery 05/20/16 Filemaker Developer Relationship Specialty Start Date End Date Nicol Ibanez MD [address] [place] [address] PCP - General 08/26/11 Jass Pepe MD [address] [place] [address] Consulting Physician Orthopedic Surgery 05/20/16 Filemaker Developer Relationship Specialty Start Date End Date Nicol Ibanez MD [address] [place] [address] PCP - General 08/26/11 Jass Pepe MD [address] [place] [address] Consulting Physician Orthopedic Surgery 05/20/16 Filemaker Developer Relationship Specialty Start Date End Date Nicol Ibanez MD [address] [place] [address] PCP - General 08/26/11 Jass Pepe MD [address] [place] [address] Consulting Physician Orthopedic Surgery 05/20/16 Filemaker Developer Relationship Specialty Start Date End Date Nicol Ibanez MD [address] [place] [address] PCP - General 08/26/11 Jass Pepe MD [address] [place] [address] Consulting Physician Orthopedic Surgery 05/20/16 Filemaker Developer Relationship Specialty Start Date End Date Nicol Ibanez MD [address] [place] [address] PCP - General 08/26/11 Jass Pepe MD [address] [place] [address] Consulting Physician Orthopedic Surgery 05/20/16 Filemaker Developer Relationship Specialty Start Date End Date Nicol Ibanez MD [address] [place] [address] PCP - General 08/26/11 Jass Pepe MD [address] [place] [address] Consulting Physician Orthopedic Surgery 05/20/16 Filemaker Developer Relationship Specialty Start Date End Date Nicol Ibanez MD [address] [place] [address] PCP - General 08/26/11 Jass Pepe MD [address] [place] [address] Consulting Physician Orthopedic Surgery 05/20/16 Filemaker Developer Relationship Specialty Start Date End Date Nicol Ibanez MD [address] [place] [address] PCP - General 08/26/11 Jass Pepe MD [address] [place] [address] Consulting Physician Orthopedic Surgery 05/20/16 Filemaker Developer Relationship Specialty Start Date End Date Nicol Ibanez MD [address] [place] [address] PCP - General 08/26/11 Jass Pepe MD [address] [place] [address] Consulting Physician Orthopedic Surgery 05/20/16 Scheduled Active and Recently Administ ered Medications (unrecognized section and content) Continuous Medication Order 01/20/2022 01/21/2022 01/22/2022 sodium chloride 0.9% (NS) (CANCELED) 50 mL/hr, Intravenous, Continuous, Starting on Thu01/21/22 at 0815, Pre-Procedure, Start 2 hours prior to planned procedure 0850 (New Bag - Provider: Holley Maldonado RN)1031 (Paused - Provider: Abigalle Sparrow - Comment: Switch to gravity)1032 (Restarted - Provider: Abigalle Sparjorge)1235 (Anesthesia Volume Adjustment - Provider: Abigalle Sparjorge) sodium chloride 0.9% (NS) 25 mL/hr, Intravenous, Continuous, Starting on Thu01/21/22 at 1730, PACU (only), Peripheral lines 1730 (Canceled Entry - Provider: Myla Hubbard RN) sodium chloride 0.9% for pressurized line 1,000 mL, Intra-arterial, Continuous, Starting on Thu01/21/22 at 1730, PACU (only), Maintain line at 300 mmHg. 1730 (Canceled Entry - Provider: Myla Hubbard RN) PRN Medication Order 01/20/2022 01/21/2022 01/22/2022 acetaminophen (TYLENOL) tablet 650 mg 650 mg, Oral, Every 4 hours PRN, mild pain, Starting on Thu01/21/22 at 1636, PACU to Post Procedure 2213 (Given - Provider: Gaby Evans RN) albuterol inhaler 2 puff 2 puff, Inhalation, Every 6 hours PRN, wheezing, Starting on Thu01/21/22 at 1636, PACU to Post Procedure, SPACER REQUIRED FOR ADMINISTRATION hydrALAZINE (APRESOLINE) injection 10 mg 10 mg, Intravenous, Every 4 hours PRN, Systolic blood pressure greater than 160, Starting on Thu01/21/22 at 1636, PACU to Post Procedure iopamidoL (ISOVUE-370) 76 % injection (CANCELED) As needed, Starting on Thu01/21/22 at 1238, Intra-Procedure 1238 (Given - Provider: Stanley Grant MD) lidocaine 20 mg/mL (2 %) injection (CANCELED) As needed, Starting on Thu01/21/22 at 1110, Intra-Procedure 1109 (Given - Provider: Stanley Grant MD)1113 (Given - Provider: Lindsey Plummer MD)1116 (Given - Provider: Stanley Grant MD) naloxone (NARCAN) injection 0.1 mg(Linked Group 2) 0.1 mg, Intravenous, As needed, opioid reversal, For respiratory rate less than or equal to 8 per minute., Starting on Thu01/21/22 at 1151, PACU to Post Procedure, Mix nalOXone (NARCAN) 0.4 mg (1mL) with 9 mL of Normal Saline to total 10 mL. Administer 0.1 mg (2.5mL) IV Push every 2 minutes until respiratory rate is 10 or greater. naloxone (NARCAN) injection 0.4 mg(Linked Group 2) 0.4 mg, Intravenous, As needed, opioid reversal, patient is pulseless, breathless, and unresponsive, Starting on Thu01/21/22 at 1151, PACU to Post Procedure, Call a code first, then administer naloxone dose undiluted IV Push over 30 seconds. ondansetron (ZOFRAN) injection 4 mg 4 mg, Intravenous, Every 6 hours PRN, nausea, vomiting, Starting on Thu01/21/22 at 1636, PACU to Post Procedure 1647 (Given - Provider: Myla Hubbard RN) perflutren lipid microspheres (DEFINITY) 0.143 mg/mL solution 0-10 mL of mixture 0-10 mL of mixture, Intravenous, Once in imaging, contrast, IF not allergic or otherwise contraindicated, Starting on Thu01/21/22 at 0722, For 48 hours, Prepare syringe by withdrawing 1.3 mL of perflutren (DEFINITY) from the 2ml vial. Further dilute the 1.3 mL of perflutren with Sodium Chloride (NS) 0.9% to total volume of 10 ml. Chart total ML OF MIXTURE given to patient. sodium chloride (PF) (NS) flush 5 mL(Linked Group 1) 5 mL, Intravenous, As needed, line care, Starting on Thu01/21/22 at 1151, PACU to Post Procedure sodium chloride 0.9% (NS)(Linked Group 1) 0-150 mL/hr, Intravenous, As needed, To flush line after IV infusions when no maintenance IV ordered or a compatibility issue with maintenance IV., Starting on Thu01/21/22 at 1151, PACU to Post Procedure, Run as Primary IV. NOT intended for KVO. 2013 (New Bag - Provider: Gaby Evasn RN)2044 (Rate/Dose Verify - Provider: Gaby Evans RN)2210 (Stopped - Provider: Gaby Evans RN) 041 (Restarted - Provider: Gaby Evans RN)041 (Rate/Dose Verify - Provider: Gaby Evans RN)044 (Rate/Dose Verify - Provider: Gaby Evans RN)0523 (Stopped - Provider: Gaby Evans RN)1004 (Restarted - Provider: Lisa Guzmán RN)1006 (Stopped - Provider: Lisa Guzmán RN) sodium chloride 0.9% (NS) 25 mL/hr, Intravenous, As needed, lines, Starting on Thu01/21/22 at 1636, PACU (only), Arterial and [place] Lines at 300 mmHg 1738 (Canceled Entry - Provider: Myla Hubbard RN) Linked Groups Order Group 1: Saline lock IV (CANCELED) Routine, Continuous, Starting on Thu01/21/22 at 1152, Until Specified
IF patient taking PO, PACU to Post Procedure And sodium chloride (PF) (NS) flush 5 mLJump to med 5 mL, Intravenous, As needed, line care, Starting on Thu01/21/22 at 1151, PACU to Post Procedure And sodium chloride (PF) (NS) flush 5 mLJump to med 5 mL, Intravenous, Every 8 hours scheduled, First dose on Thu01/21/22 at 1730, PACU to Post Procedure
Saline lock
And sodium chloride 0.9% (NS)Jump to med 0-150 mL/hr, Intravenous, As needed, To flush line after IV infusions when no maintenance IV ordered or a compatibility issue with maintenance IV., Starting on Thu01/21/22 at 1151, PACU to Post Procedure
Run as Primary IV. NOT intended for KVO.
Group 2: naloxone (NARCAN) injection 0.1 mgJump to med 0.1 mg, Intravenous, As needed, opioid reversal, For respiratory rate less than or equal to 8 per minute., Starting on Thu01/21/22 at 1151, PACU to Post Procedure
Mix nalOXone (NARCAN) 0.4 mg (1mL) with 9 mL of Normal Saline to total 10 mL. Administer 0.1 mg (2.5mL) IV Push every 2 minutes until respiratory rate is 10 or greater.
And Notify physician (CANCELED) STAT, Until discontinued, Starting on Thu01/21/22 at 1152, Until Specified
Respiratory rate less than: 8
For respiratory rate less than or equal to 8, notify physician and/or appropriate staff for additional orders., PACU to Post Procedure And naloxone (NARCAN) injection 0.4 mgJump to med 0.4 mg, Intravenous, As needed, opioid reversal, patient is pulseless, breathless, and unresponsive, Starting on Thu01/21/22 at 1151, PACU to Post Procedure
Call a code first, then administer naloxone dose undiluted IV Push over 30 seconds.
FOR RECORDS PERTAINING TO PATIENTS WHO ARE OR HAVE BEEN ENROLLED IN A CHEMICAL DEPENDENCY/SUBSTANCEABUSE PROGRAM, SOME INFORMATION MAY BE OMITTED. This clinical summary was aggregated from multiple sources. Caution should be exercised in using it in the provision of clinical care. This summary normalizes information from multiple sources, and as a consequence, information in this document may materially change the coding, format and clinical context of patient data. In addition, data may be omitted in some cases. CLINICAL DECISIONS SHOULD BE BASED ON THE PRIMARY CLINICAL RECORDS. [employer] [facility]. provides no warranty or guarantee of the accuracy or completeness of information in this document.
== END | disposition home or self-care (01) ==
PROVIDERS: PCP Family Medicine; Referring Provider Family Medicine; Visit Provider Family Medicine
DX: R05.8 Other specified cough (principal)
CPT/HCPCS: 71046

== ENCOUNTER → 2024-05-27 | Outpatient (CLI) | payer MEDICARE, OTHER, SELFPAY ==
--- NOTE | 2024-05-27 10:53 | VDLE_ITS ---
Reason For Study: Left leg pain RIGHT LEFT CFV is compressible, spontaneous, phasic, GSV is normal. competent and demonstrates normal CFV is compressible, spontaneous, phasic, augmentation. competent, and demonstrates normal Procedure augmentation. This is a venous duplex using B-mode, color FV is compressible, spontaneous, phasic, flow and spectral Doppler. competent and demonstrates normal Exam performed in department. augmentation. A preliminary report was called and/or faxed POP V is compressible, spontaneous, phasic, to Dr. Newell. competent and demonstrates normal augmentation. T/P Trunk is compressible. PTV is compressible. LT PerV is compressible. VL/Venous Duplex US, Unilateral Interpretation Summary There is no evidence of left lower extremity deep vein thrombosis. Left great s aphenous vein appears patent and compressible segmentally. Normal flow patterns right common femoral vein Ordering Physician: José Miguel Newell Referring Physician: José Miguel Newell Performed By: Rosa Martinez RVT
== END | disposition home or self-care (01) ==
PROVIDERS: PCP Family Medicine; Referring Provider Family Medicine; Visit Provider Family Medicine
DX: M79.605 Pain in left leg (principal)
CPT/HCPCS: 93971

== ENCOUNTER → 2024-12-19 | Outpatient (CLI) | payer MEDICARE, OTHER, SELFPAY ==
[2024-12-19 12:00] LABS: Erythrocyte Sedimentation Rate 37 mm/hr (0-30)
[2024-12-19 12:03] LABS: Absolute Neutrophil Count 3.8 X10^3/uL (2.0-7.7); Basophil# 0.04 X10^3/uL; Basophil% 0.7 % (0-1); Eosinophil# 0.18 X10^3/uL; Hematocrit 36.5 % (37-47); Hemoglobin 11.6 g/dL (12.0-15.0); Lymphocyte % 26.8 % (19-41); Mean Corp Hgb Conc 31.8 g/dL (32-36); Mean Corpuscular Volume 91.3 fL (81-99); Mean Platelet Vol. 11.8 fl (6.2-12.0); Monocyte# 0.37 X10^3/uL; Monocyte% 6.2 % (0-10); NRBC Flagged by Analyzer 0 % (0-5); Neutrophil # 3.76 X10^3/uL (2.7-7.7); Platelet Count 201 K/mm3 (150-450); RBC Distribution Width CV 14.6 % (11.6-14.6); RBC Distribution Width SD 47.9 fl (35.1-43.9)
[2024-12-19 12:13] LABS: PTHIN 54.7 pg/mL (18.4-80.1)
[2024-12-19 12:18] LABS: Vitamin D,25 Hydroxy 42.7 ng/mL
[2024-12-19 12:26] LABS: ALB/GLOB Ratio 0.7 RATIO (0.9-2.4); AST(SGOT) 24 U/L (15-37); Alanine Aminotransfer ALT/SGPT 24 U/L (13-56); Albumin, Serum 3.1 g/dL (3.2-5.0); Alkaline Phosphatase 119 U/L (45-117); Anion Gap 2 (5-15); BUN 16 mg/dL (7-18); BUN/Creat Ratio 18.9 RATIO (10-20); Calcium,Total 9.1 mg/dL (8.5-10.1); Chloride 107 mmol/L (98-107); Cholesterol 150 mg/dL (200); Creatinine, Serum 0.85 mg/dL (0.55-1.02); EST Glomerular Filtration Rate 71 mL/min (>60); Est Glom Filt Rate - Afr Amer 85 mL/min (>60); Globulin 4.6 g/dL (2.2-4.2); Glucose 96 mg/dL (74-106); High Density Lipoprotein 73 mg/dL; Potassium 4.3 mmol/L (3.5-5.1); Protein, Total 7.7 g/dL (6.4-8.2); Sodium Level 137 mmol/L (136-145); Triglycerides 75 mg/dL; Very Low Density Lipoprotein 15 mg/dL (5-40)
[2024-12-19 12:30] LABS: Microalbumin,Random Urine 19.9 mg/L (NO RANGE EST.); Microalbumin:Creatinine Ratio 27.8 mg/g CRE (<30 mg/g CRE)
[2024-12-19 14:00] LABS: Hemoglobin A1c 5.9 % (3.8-5.6)
== END | disposition home or self-care (01) ==
LOC: MTLAB 09:50
PROVIDERS: PCP Family Medicine; Referring Provider Family Medicine; Visit Provider Family Medicine
DX: M85.80 Other specified disorders of bone density and structure, unspecified site (principal); I27.20 Pulmonary hypertension, unspecified; R73.03 Prediabetes; R70.0 Elevated erythrocyte sedimentation rate; I10 Essential (primary) hypertension
CPT/HCPCS: 36415; 80053; 80061; 82043; 82306; 82570; 83036; 83970; 84443; 85025; 85652

== ENCOUNTER 2025-05-29 23:07 | Inpatient (IN) | payer MEDICARE, OTHER, SELFPAY ==
[2025-05-29 23:10] VITALS: BP 187/116; PULSE 124; RESP 18; TEMP 36.9; O2SAT 99; BMI 41.0
[2025-05-29 23:12] VITALS: BP 186/113
[2025-05-30] VITALS (34 sets, daily range): BP systolic 112–168; BP diastolic 53–126; PULSE 61–124; RESP 14–29; TEMP 36.3–36.9; O2SAT 92–100; BMI 42.7
--- NOTE | 2025-05-30 00:08 | EKG12_ITS ---
Test Reason : HTN Blood Pressure : */* mmHG Vent. Rate : 122 BPM Atrial Rate : 244 BPM P-R Int : * ms QRS Dur : 92 ms QT Int : 340 ms P-R-T Axes : 243 65 72 degrees QTcB Int : 484 ms Atrial flutter with 2:1 A-V conduction Nonspecific ST and T wave abnormality Abnormal ECG Confirmed by ZAKIYA HARPER, JAMIE ([id number]), design editor SHONDA LEIGH ([id number]) on 05/30/2025 1:35:34 PM Referred By: FRANCES Confirmed By: JAMIE SIGALA MD
--- NOTE | 2025-05-30 00:08 | EKG12_ITS ---
Test Reason : HTN Blood Pressure : */* mmHG Vent. Rate : 122 BPM Atrial Rate : 244 BPM P-R Int : * ms QRS Dur : 92 ms QT Int : 340 ms P-R-T Axes : 243 65 72 degrees QTcB Int : 484 ms Atrial flutter with 2:1 A-V conduction Nonspecific ST and T wave abnormality Abnormal ECG Confirmed by ZAKIYA HARPER, JAMIE ([id number]), video tape editor SHONDA LEIGH ([id number]) on 05/30/2025 1:35:34 PM Referred By: FRANCES Confirmed By: JAMIE SIGALA MD
[2025-05-30] MEDS: 0.9% Normal Saline (1000mL) 1,000 ML 999 ML IV (00:24)
[2025-05-30 00:25] LABS: Hematocrit 37.5 % (37-47); Hemoglobin 12.4 g/dL (12.0-15.0); Immature Granulocytes Count 0.030 X10^3/uL (0.0-0.0); Mean Corp Hgb Conc 33.1 g/dL (32-36); Mean Corpuscular Volume 88.2 fL (81-99); Mean Platelet Vol. 11.4 fl (6.2-12.0); NRBC Flagged by Analyzer 0 % (0-5); Platelet Count 223 K/mm3 (150-450); RBC Distribution Width CV 14.8 % (11.6-14.6); RBC Distribution Width SD 47.8 fl (35.1-43.9); Red Blood Count 4.25 M/mm3 (4.2-5.4); White Blood Count 9.1 K/mm3 (4.4-11.0)
[2025-05-30] MEDS: Diltiazem 125 MG in Dextrose 5%-Water (100mL Bag) 100 ML IV (00:36)
[2025-05-30 01:50] LABS: Anion Gap 12 (5-15); BUN 16 mg/dL (4-19); BUN/Creat Ratio 19.0 RATIO (10-20); Calcium,Total 9.4 mg/dL (7.6-11.0); Carbon Dioxide 23.9 mmol/L (21.0-32.0); Chloride 103 mmol/L (98-108); Estimated Creatinine Clearance 81.19 ml/min (50-250); Glucose 105 mg/dL (70-99); Magnesium 2.0 mg/dL (1.5-2.2); Potassium 3.9 mmol/L (3.3-5.1)
--- NOTE | 2025-05-30 02:08 | PCM.HP.STD ---
[facility] - General General Date of Admission: 05/30/25 Date of Service: 05/30/25 Chief Complaint: Heart Racing and Palpitations with New-onset Atrial Flutter. [facility] Narrative FEMI GONZALEZ, is a 69 F with a past medical history of essential hypertension; on losartan and metoprolol, hyperlipidemia; on pravastatin, morbid obesity; with BMI of 41 this admission, CAD; s/p CABG x 2 (2000), history of aortic valve insufficiency; s/p TAVR, history of fibrosing mediastinitis, history of asthma; on montelukast, history of allergic rhinitis; on intranasal ipratropium bromide and levocetirizine, history of basal cell carcinoma of LLE (2022); s/p Mohs excision, history of non-pressure chronic ulcer of LLE (2022) and OA; s/p TKR who presents to [facility] complaining of heart racing and palpitations with apparently new-onset atrial flutter. Ms. Gonzalez reports her symptoms began approximately 1 day prior to admission with the abrupt-onset of heart racing with sustained tachycardia in the ~120 bpm range. She was evaluated by her PCP and had an EKG that revealed sinus tachycardia and was instructed to take extra metoprolol but if it did not help to relieve her symptoms she should come to the ER for further evaluation and treatment. She admits to waking up very tired and breathless for the past 6 weeks but she denies a history of having been formally diagnosed with obstructive sleep apnea. There was no report of fever, chills, nausea, vomiting, diarrhea, constipation, abdominal pain, chest pain, headache or rash. In the ER she was noted to have EKG evidence of New-onset Atrial Flutter with RVR at ~120 bpm requiring treatment with IV diltiazem drip and she was then admitted to the PCU for ongoing care for stay that is expected to extend beyond 2 midnights. [facility] Medical History (Updated 05/30/25 @ 04:[address] Remy Rai, ) Hernia Chronic cough Allergic rhinitis Asthma Heart murmur Aortic valve insufficiency HTN (hypertension) Home Medications ?Medication ?Instructions ?Recorded ?Last Taken ?Type aspirin 81 mg tablet,delayed 81 mg PO QDAY 12/22/17 Unknown History release (Adult Aspirin Regimen) cholecalciferol (vitamin D3) 125 5,000 unit PO QDAY 12/22/17 Unknown History mcg (5,000 unit) capsule pravastatin 40 mg tablet 40 mg PO QHS 12/22/17 Unknown History diphenhydramine HCl 25 mg capsule 25 mg PO QHS PRN sleep 09/02/18 05/28/25 History (Benadryl) spacer #1 ea 03/06/20 Unknown Rx Lactobacillus acidophilus 100 mg PO DAILY 05/29/25 Unknown History (Acidophilus capsule) ipratropium bromide 21 mcg (0.03 intranasal 05/29/25 05/28/25 History %) nasal spray levocetirizine 5 mg tablet (24HR 5 mg PO DAILY 05/29/25 Unknown History Allergy Relief) losartan 100 mg tablet 100 mg PO DAILY 05/29/25 Unknown History magnesium 250 mg tablet 250 mg PO DAILY 05/29/25 Unknown History metoprolol succinate 50 mg 50 mg PO DAILY 05/29/25 Unknown History tablet,extended release 24 hr montelukast 10 mg tablet 10 mg PO DAILY 05/29/25 Unknown History vitamin B complex (Vitamins B 1 cap PO DAILY 05/29/25 Unknown History Complex capsule) Allergy/AdvReac Type Severity Reaction Status Date / Time naproxen (From Naprosyn) Allergy Severe Hives Verified 05/29/25 23:10 Family History Mother Diabetes Father MADDY (obstructive sleep apnea) Surgical History S/P TAVR (transcatheter aortic valve replacement) Total knee replacement status Status post double vessel coronary artery bypass Social History Smoking Status: Never smoker second hand exposure: No alcohol intake: current alcohol intake frequency: a few times a month substance use type: former substance user Date of last use: marijuana in college ROS ROS Narrative Review of Systems: Constitutional: Patient denies fever or chills. Eyes: Patient denies change in vision or discharge from eyes. ENT: Patient denies runny nose, sore throat or ear pain. Resp: Patient denies shortness of breath or cough. CV: Patient admits to palpitations and heart racing but she denies chest pain. GI: Patient denies abdominal pain, nausea, vomiting, diarrhea or constipation. : Patient denies dysuria or hematuria. MSK: Patient denies arthralgias or myalgias. Skin: Patient denies rash, abscess, wounds or jaundice. Psych: Patient denies symptoms of uncontrolled depression or anxiety. Neuro: Patient denies headache, paresthesias or focal neurologic deficits. Allergy: Patient denies lip swelling, tongue swelling or urticaria. Hematology: Patient denies easy bleeding or easy bruisability. Endocrinology: Patient denies polyuria, polydipsia, polyphagia or heat/cold intolerance. 14 point ROS otherwise negative except for positives noted above in HPI. Vital Signs Vital Signs Vital Signs: 05/29/25 23:10 05/29/25 23:12 05/29/25 23:32 Temperature 98.4 F Temperature Source Oral Pulse Rate 124 H Respiratory Rate 18 Respiratory Effort Short of Breath Respiratory Pattern Normal Blood Pressure 187/116 H 186/113 H Blood Pressure Mean 139 137 Blood Pressure Source Pulse Ox 99 Oxygen Delivery Method Room Air 05/30/25 00:36 05/30/25 01:10 05/30/25 01:15 Temperature 97.4 F L Temperature Source Oral Pulse Rate 123 H 122 H 123 H Respiratory Rate 16 14 18 Respiratory Effort Respiratory Pattern Blood Pressure 168/109 H 161/105 H 161/105 H Blood Pressure Mean 128 123 123 Blood Pressure Source Monitor Monitor Pulse Ox 97 96 100 Oxygen Delivery Method Room Air Room Air Room Air 05/30/25 01:53 Temperature Temperature Source Pulse Rate 123 H Respiratory Rate 17 Respiratory Effort Respiratory Pattern Blood Pressure 137/90 H Blood Pressure Mean 105 Blood Pressure Source Monitor Pulse Ox 98 Oxygen Delivery Method Room Air Weight Weight: 262 lb Body Mass Index (BMI) 41.0 Physical Exam Const alert, oriented x3 and no apparent distress Constitutional Narrative: Morbidly obese. General Appearance: cooperative HEENT normocephalic, head/scalp atraumatic, hearing grossly normal bilaterally and moist oral mucous membranes Eyes PERRL and EOMs intact bilaterally Neck no lymphadenopathy and supple Resp normal respiratory effort, no retractions, no use of accessory muscles and clear to auscultation bilaterally Cardio regular rate and regular rhythm Cardio Narrative: Tachycardia noted at ~120 bpm. GI normal to inspection, nondistended, normoactive bowel sounds, soft to palpation, non-tender and non-distended GI Narrative: Morbidly obese. Extremity normal to inspection and full ROM Skin Skin Narrative: Patient has no evidence of rash, abscess, wounds or jaundice. Neuro oriented x3, CN's II-XII intact bilaterally, moves all extremities and no focal motor deficits Sensorium / Orientation: awake, alert, oriented to person, oriented to place and oriented to time Speech: speech normal Psych affect normal Results Medical Records Data Attestation: I reviewed the patient's medical records Lab / Micro Data Attestation: I reviewed the patient's lab results. 05/30/25 04:35 05/30/25 00:20 Labs: Laboratory Results - last 24 hr 05/30/25 00:20: WBC 9.1, RBC 4.25, Hgb 12.4, Hct 37.5, MCV 88.2, MCH 29.2, MCHC 33.1, RDW Std Deviation 47.8 H, RDW Coeff of Mark 14.8 H, Plt Count 223, MPV 11.4, Immature Gran % (Auto) 0.300, Neut % (Auto) 63.2, Lymph % (Auto) 24.9, Wilcox % (Auto) 8.3, Eos % (Auto) 2.9, Baso % (Auto) 0.4, Absolute Neuts (auto) 5.7, Absolute Lymphs (auto) 2.26, Nucleated RBC % 0, Sodium 138, Potassium 3.9, Chloride 103, Carbon Dioxide 23.9, Anion Gap 12, BUN 16, Creatinine 0.86, Estim Creat Clear Calc 81.19, Est GFR (MDRD) Non-Af 72, BUN/Creatinine Ratio 19.0, Glucose 105 H, Calcium 9.4, Magnesium 2.0, TSH 3.020 Imaging [facility] Imaging Services [address] [place], [place] [address] CTA Chest W/WO Contrast MR#: [id number] Acct: [id number] Name: FEMI GONZALEZ Rep #: [id number] : 1955 F 69 From: Geraldo Moore MD PCP: Dr. José Miguel Newell MD Status: ADM IN Study: CTA Chest W/WO Contrast Date of Exam: 05/30/25 Exam# [id number] Ordering Dr: Nestor Silva DO PROCEDURE: CTA CHEST W/WO CONTRAST 05/30/2025 REASON FOR EXAM: HISTORY OF FIBROSING MEDIASTINITIS. TECHNIQUE: CTA CHEST W/WO CONTRAST Multiplanar Sagittal and Coronal images were obtained. CONTRAST: Isovue 370 VOLUME: 93 mL One or more dose reduction techniques were used (e.g., Automated exposure control, adjustment of the mA and/or kV according to patient size, use of iterative reconstruction technique). RADIATION DOSE SUMMARY: CTDlvol: 45 mGy DLP: 594 mGycm COMPARISON: Chest x-ray 12/14/2023 FINDINGS: Unremarkable base of neck and axilla. Thoracic spine scoliosis and degeneration. Normal esophagus. Mildly enlarged heart. Status post AVR. Status post CABG. No aortic dissection. No pulmonary embolism. However, the proximal right pulmonary artery shows moderately severe narrowing, series 2 images 167/179, with surrounding soft tissue, which may represent fibrosis and may be related to the prior ascending aortic repair. Central airways are patent. Small basilar atelectasis. No consolidation, effusion, or pneumothorax. No acute chest wall findings. No acute upper abdominal findings. 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 Progress imaging as clinically determined. Reading Location: [place] [id number] Assessment & Plan Assessment/Plan (1) Atrial flutter with rapid ventricular response: (2) Palpitations: (3) Racing heart beat: (4) MADDY (obstructive sleep apnea): (5) BMI 40.0-44.9, adult: (6) Aortic valve insufficiency: QUALIFIERS: Cardiac valve disease etiology: etiology unspecified Qualified Code(s): I35.1 - Nonrheumatic aortic (valve) insufficiency (7) S/P TAVR (transcatheter aortic valve replacement): (8) Status post double vessel coronary artery bypass: (9) Fibrosing mediastinitis: PLAN: Plan 1. EKG evidence of New-onset Atrial Flutter with RVR at ~120 bpm with Palpitations and Heart Racing - Admit to PCU. Continue IV diltiazem and titrate to keep heart rate less than 100 bpm. Patient treated with full dose enoxaparin in ER as a precursor to eventual transitioning to NOAC. Normal TSH of 3.02 noted in ER. Check echocardiogram to evaluate LVEF. Serialize troponin. Give acetaminophen as needed for pain or fever. Finally, we will consult [facility] see this patient on rounds in a.m. for further recommendations with appreciated in advance. 2. Morbid (class III) obesity; with BMI of 41 this admission with suspected MADDY causing #1 - Check overnight oximetry test to screen for MADDY. Patient will need formal sleep study to be set up at time of discharge. Weight loss will be recommended. This complicates her case and may hamper recovery. 3. History of aortic valve insufficiency; s/p TAVR complicating #1 & #2 - Echocardiogram pending in a.m. to reassess aortic valve function. 4. CAD; s/p CABG x 2 (2000) compounding #1 - #3 - Noted. 5. History of fibrosing mediastinitis - Noted. Checked CT scan of chest with IV contrast to reassess with scan revealing mediastinal fibrosis surrounding the proximal Right pulmonary artery, with moderately severe narrowing, and poststenotic dilatation, of the Right pulmonary artery. Progress imaging as clinically determined. 6. Essential hypertension; on losartan and metoprolol - Maintain home regimen plus give as needed IV hydralazine for systolic blood pressure greater than 160 mmHg. 7. Hyperlipidemia; on pravastatin - Resume statin and check lipid profile in light of #1. 8. History of asthma; on montelukast - Stable with no evidence of acute flare. 9. History of allergic rhinitis; on intranasal ipratropium bromide and levocetirizine - Continue present therapy. 10. History of basal cell carcinoma of LLE (2022); s/p Mohs excision - Noted. 11. History of non-pressure chronic ulcer of LLE (2022) - Noted. 12. OA; s/p TKR - We will give acetaminophen prn as outlined in #1. 13. DVT prophylaxis - Patient on full-dose enoxaparin for #1. Total time: Approximately (but not less than) 75 minutes. Charges/Coding Visit Charges Inpatient E&M: 73887 Init Hosp L3
--- NOTE | 2025-05-30 02:08 | PCM.HP.STD ---
[facility] - General General Date of Admission: 05/30/25 Date of Service: 05/30/25 Chief Complaint: Heart Racing and Palpitations with New-onset Atrial Flutter. [facility] Narrative FEMI GONZALEZ, is a 69 F with a past medical history of essential hypertension; on losartan and metoprolol, hyperlipidemia; on pravastatin, morbid obesity; with BMI of 41 this admission, CAD; s/p CABG x 2 (2000), history of aortic valve insufficiency; s/p TAVR, history of fibrosing mediastinitis, history of asthma; on montelukast, history of allergic rhinitis; on intranasal ipratropium bromide and levocetirizine, history of basal cell carcinoma of LLE (2022); s/p Mohs excision, history of non-pressure chronic ulcer of LLE (2022) and OA; s/p TKR who presents to [facility] complaining of heart racing and palpitations with apparently new-onset atrial flutter. Ms. Gonzalez reports her symptoms began approximately 1 day prior to admission with the abrupt-onset of heart racing with sustained tachycardia in the ~120 bpm range. She was evaluated by her PCP and had an EKG that revealed sinus tachycardia and was instructed to take extra metoprolol but if it did not help to relieve her symptoms she should come to the ER for further evaluation and treatment. She admits to waking up very tired and breathless for the past 6 weeks but she denies a history of having been formally diagnosed with obstructive sleep apnea. There was no report of fever, chills, nausea, vomiting, diarrhea, constipation, abdominal pain, chest pain, headache or rash. In the ER she was noted to have EKG evidence of New-onset Atrial Flutter with RVR at ~120 bpm requiring treatment with IV diltiazem drip and she was then admitted to the PCU for ongoing care for stay that is expected to extend beyond 2 midnights. [facility] Medical History (Updated 05/30/25 @ 04:[address] Remy Rai, ) Hernia Chronic cough Allergic rhinitis Asthma Heart murmur Aortic valve insufficiency HTN (hypertension) Home Medications ?Medication ?Instructions ?Recorded ?Last Taken ?Type aspirin 81 mg tablet,delayed 81 mg PO QDAY 12/22/17 Unknown History release (Adult Aspirin Regimen) cholecalciferol (vitamin D3) 125 5,000 unit PO QDAY 12/22/17 Unknown History mcg (5,000 unit) capsule pravastatin 40 mg tablet 40 mg PO QHS 12/22/17 Unknown History diphenhydramine HCl 25 mg capsule 25 mg PO QHS PRN sleep 09/02/18 05/28/25 History (Benadryl) spacer #1 ea 03/06/20 Unknown Rx Lactobacillus acidophilus 100 mg PO DAILY 05/29/25 Unknown History (Acidophilus capsule) ipratropium bromide 21 mcg (0.03 intranasal 05/29/25 05/28/25 History %) nasal spray levocetirizine 5 mg tablet (24HR 5 mg PO DAILY 05/29/25 Unknown History Allergy Relief) losartan 100 mg tablet 100 mg PO DAILY 05/29/25 Unknown History magnesium 250 mg tablet 250 mg PO DAILY 05/29/25 Unknown History metoprolol succinate 50 mg 50 mg PO DAILY 05/29/25 Unknown History tablet,extended release 24 hr montelukast 10 mg tablet 10 mg PO DAILY 05/29/25 Unknown History vitamin B complex (Vitamins B 1 cap PO DAILY 05/29/25 Unknown History Complex capsule) Allergy/AdvReac Type Severity Reaction Status Date / Time naproxen (From Naprosyn) Allergy Severe Hives Verified 05/29/25 23:10 Family History Mother Diabetes Father MADDY (obstructive sleep apnea) Surgical History S/P TAVR (transcatheter aortic valve replacement) Total knee replacement status Status post double vessel coronary artery bypass Social History Smoking Status: Never smoker second hand exposure: No alcohol intake: current alcohol intake frequency: a few times a month substance use type: former substance user Date of last use: marijuana in college ROS ROS Narrative Review of Systems: Constitutional: Patient denies fever or chills. Eyes: Patient denies change in vision or discharge from eyes. ENT: Patient denies runny nose, sore throat or ear pain. Resp: Patient denies shortness of breath or cough. CV: Patient admits to palpitations and heart racing but she denies chest pain. GI: Patient denies abdominal pain, nausea, vomiting, diarrhea or constipation. : Patient denies dysuria or hematuria. MSK: Patient denies arthralgias or myalgias. Skin: Patient denies rash, abscess, wounds or jaundice. Psych: Patient denies symptoms of uncontrolled depression or anxiety. Neuro: Patient denies headache, paresthesias or focal neurologic deficits. Allergy: Patient denies lip swelling, tongue swelling or urticaria. Hematology: Patient denies easy bleeding or easy bruisability. Endocrinology: Patient denies polyuria, polydipsia, polyphagia or heat/cold intolerance. 14 point ROS otherwise negative except for positives noted above in HPI. Vital Signs Vital Signs Vital Signs: 05/29/25 23:10 05/29/25 23:12 05/29/25 23:32 Temperature 98.4 F Temperature Source Oral Pulse Rate 124 H Respiratory Rate 18 Respiratory Effort Short of Breath Respiratory Pattern Normal Blood Pressure 187/116 H 186/113 H Blood Pressure Mean 139 137 Blood Pressure Source Pulse Ox 99 Oxygen Delivery Method Room Air 05/30/25 00:36 05/30/25 01:10 05/30/25 01:15 Temperature 97.4 F L Temperature Source Oral Pulse Rate 123 H 122 H 123 H Respiratory Rate 16 14 18 Respiratory Effort Respiratory Pattern Blood Pressure 168/109 H 161/105 H 161/105 H Blood Pressure Mean 128 123 123 Blood Pressure Source Monitor Monitor Pulse Ox 97 96 100 Oxygen Delivery Method Room Air Room Air Room Air 05/30/25 01:53 Temperature Temperature Source Pulse Rate 123 H Respiratory Rate 17 Respiratory Effort Respiratory Pattern Blood Pressure 137/90 H Blood Pressure Mean 105 Blood Pressure Source Monitor Pulse Ox 98 Oxygen Delivery Method Room Air Weight Weight: 262 lb Body Mass Index (BMI) 41.0 Physical Exam Const alert, oriented x3 and no apparent distress Constitutional Narrative: Morbidly obese. General Appearance: cooperative HEENT normocephalic, head/scalp atraumatic, hearing grossly normal bilaterally and moist oral mucous membranes Eyes PERRL and EOMs intact bilaterally Neck no lymphadenopathy and supple Resp normal respiratory effort, no retractions, no use of accessory muscles and clear to auscultation bilaterally Cardio regular rate and regular rhythm Cardio Narrative: Tachycardia noted at ~120 bpm. GI normal to inspection, nondistended, normoactive bowel sounds, soft to palpation, non-tender and non-distended GI Narrative: Morbidly obese. Extremity normal to inspection and full ROM Skin Skin Narrative: Patient has no evidence of rash, abscess, wounds or jaundice. Neuro oriented x3, CN's II-XII intact bilaterally, moves all extremities and no focal motor deficits Sensorium / Orientation: awake, alert, oriented to person, oriented to place and oriented to time Speech: speech normal Psych affect normal Results Medical Records Data Attestation: I reviewed the patient's medical records Lab / Micro Data Attestation: I reviewed the patient's lab results. 05/30/25 04:35 05/30/25 00:20 Labs: Laboratory Results - last 24 hr 05/30/25 00:20: WBC 9.1, RBC 4.25, Hgb 12.4, Hct 37.5, MCV 88.2, MCH 29.2, MCHC 33.1, RDW Std Deviation 47.8 H, RDW Coeff of Mark 14.8 H, Plt Count 223, MPV 11.4, Immature Gran % (Auto) 0.300, Neut % (Auto) 63.2, Lymph % (Auto) 24.9, [place] % (Auto) 8.3, Eos % (Auto) 2.9, Baso % (Auto) 0.4, Absolute Neuts (auto) 5.7, Absolute Lymphs (auto) 2.26, Nucleated RBC % 0, Sodium 138, Potassium 3.9, Chloride 103, Carbon Dioxide 23.9, Anion Gap 12, BUN 16, Creatinine 0.86, Estim Creat Clear Calc 81.19, Est GFR (MDRD) Non-Af 72, BUN/Creatinine Ratio 19.0, Glucose 105 H, Calcium 9.4, Magnesium 2.0, TSH 3.020 Imaging [facility] Imaging Services [address] [place], [place] [address] CTA Chest W/WO Contrast MR#: [id number] Acct: [id number] Name: FEMI GONZALEZ Rep #: [id number] : 1955 F 69 From: Geraldo Moore MD PCP: Dr. José Miguel Newell MD Status: ADM IN Study: CTA Chest W/WO Contrast Date of Exam: 05/30/25 Exam# [id number] Ordering Dr: Nestor Silva DO PROCEDURE: CTA CHEST W/WO CONTRAST 05/30/2025 REASON FOR EXAM: HISTORY OF FIBROSING MEDIASTINITIS. TECHNIQUE: CTA CHEST W/WO CONTRAST Multiplanar Sagittal and Coronal images were obtained. CONTRAST: Isovue 370 VOLUME: 93 mL One or more dose reduction techniques were used (e.g., Automated exposure control, adjustment of the mA and/or kV according to patient size, use of iterative reconstruction technique). RADIATION DOSE SUMMARY: CTDlvol: 45 mGy DLP: 594 mGycm COMPARISON: Chest x-ray 12/14/2023 FINDINGS: Unremarkable base of neck and axilla. Thoracic spine scoliosis and degeneration. Normal esophagus. Mildly enlarged heart. Status post AVR. Status post CABG. No aortic dissection. No pulmonary embolism. However, the proximal right pulmonary artery shows moderately severe narrowing, series 2 images 167/179, with surrounding soft tissue, which may represent fibrosis and may be related to the prior ascending aortic repair. Central airways are patent. Small basilar atelectasis. No consolidation, effusion, or pneumothorax. No acute chest wall findings. No acute upper abdominal findings. 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 Progress imaging as clinically determined. Reading Location: [place] [address] Assessment & Plan Assessment/Plan (1) Atrial flutter with rapid ventricular response: (2) Palpitations: (3) Racing heart beat: (4) MADDY (obstructive sleep apnea): (5) BMI 40.0-44.9, adult: (6) Aortic valve insufficiency: QUALIFIERS: Cardiac valve disease etiology: etiology unspecified Qualified Code(s): I35.1 - Nonrheumatic aortic (valve) insufficiency (7) S/P TAVR (transcatheter aortic valve replacement): (8) Status post double vessel coronary artery bypass: (9) Fibrosing mediastinitis: PLAN: Plan 1. EKG evidence of New-onset Atrial Flutter with RVR at ~120 bpm with Palpitations and Heart Racing - Admit to PCU. Continue IV diltiazem and titrate to keep heart rate less than 100 bpm. Patient treated with full dose enoxaparin in ER as a precursor to eventual transitioning to NOAC. Normal TSH of 3.02 noted in ER. Check echocardiogram to evaluate LVEF. Serialize troponin. Give acetaminophen as needed for pain or fever. Finally, we will consult [facility] see this patient on rounds in a.m. for further recommendations with appreciated in advance. 2. Morbid (class III) obesity; with BMI of 41 this admission with suspected MADDY causing #1 - Check overnight oximetry test to screen for MADDY. Patient will need formal sleep study to be set up at time of discharge. Weight loss will be recommended. This complicates her case and may hamper recovery. 3. History of aortic valve insufficiency; s/p TAVR complicating #1 & #2 - Echocardiogram pending in a.m. to reassess aortic valve function. 4. CAD; s/p CABG x 2 (2000) compounding #1 - #3 - Noted. 5. History of fibrosing mediastinitis - Noted. Checked CT scan of chest with IV contrast to reassess with scan revealing mediastinal fibrosis surrounding the proximal Right pulmonary artery, with moderately severe narrowing, and poststenotic dilatation, of the Right pulmonary artery. Progress imaging as clinically determined. 6. Essential hypertension; on losartan and metoprolol - Maintain home regimen plus give as needed IV hydralazine for systolic blood pressure greater than 160 mmHg. 7. Hyperlipidemia; on pravastatin - Resume statin and check lipid profile in light of #1. 8. History of asthma; on montelukast - Stable with no evidence of acute flare. 9. History of allergic rhinitis; on intranasal ipratropium bromide and levocetirizine - Continue present therapy. 10. History of basal cell carcinoma of LLE (2022); s/p Mohs excision - Noted. 11. History of non-pressure chronic ulcer of LLE (2022) - Noted. 12. OA; s/p TKR - We will give acetaminophen prn as outlined in #1. 13. DVT prophylaxis - Patient on full-dose enoxaparin for #1. Total time: Approximately (but not less than) 75 minutes. Charges/Coding Visit Charges Inpatient E&M: 25731 Init Hosp L3
--- NOTE | 2025-05-30 02:11 | EDS_ITS ---
HPI History of Present Illness Chief Complaint: Hypertension Informant: patient and spouse/S.O. Narrative Narrative: Patient is a 69-year-old female with past medical history of hypertension and aortic valve insufficiency as well as coronary artery disease. She states yesterday in the evening she was sitting at rest and began to feel like her heart was racing. She states she tried to sleep but since she does toss and turn throughout the night. She states symptoms were persistent in the morning and so she followed with her family doctor. The family doctor recommended she take extra metoprolol to see if this helped control her symptoms. She reports she has had 150 mg of the metoprolol today and there has been no symptom improvement. She states overall she feels extremely tired/fatigued. She denies any known history of cardiac dysrhythmia. She denies any excessive stimulant use or illicit drug use. [facility] Medical History (Updated 05/30/25 @ 04:[address] Remy Rai, DO) Hernia Chronic cough Allergic rhinitis Asthma Heart murmur Aortic valve insufficiency HTN (hypertension) Home Medications ?Medication ?Instructions ?Recorded ?Last Taken ?Type aspirin 81 mg tablet,delayed 81 mg PO QDAY 12/22/17 Un known History release (Adult Aspirin Regimen) cholecalciferol (vitamin D3) 125 5,000 unit PO QDAY Unknown History mcg (5,000 unit) capsule pravastatin 40 mg tablet 40 mg PO QHS 12/22/17 Unknow n History diphenhydramine HCl 25 mg capsule 25 mg PO QHS PRN sle ep 09/02/18 05/28/25 History (Benadryl) spacer #1 ea 03/06/20 Unknown Rx Lactobacillus acidophilus 100 mg PO DAILY 05/29/25 Unk nown History (Acidophilus capsule) ipratropium bromide 21 mcg (0.03 intranasal 05/29/25 0 05/28/25 History %) nasal spray levocetirizine 5 mg tablet (24HR 5 mg PO DAILY 5 Unknown History Allergy Relief) losartan 100 mg tablet 100 mg PO DAILY 05/29/25 Unk nown History magnesium 250 mg tablet 250 mg PO DAILY 05/29/25 Unk nown History metoprolol succinate 50 mg 50 mg PO DAILY 05/29/25 Unk nown History tablet,extended release 24 hr montelukast 10 mg tablet 10 mg PO DAILY 05/29/25 Unkn own History vitamin B complex (Vitamins B 1 cap PO DAILY 05/29/25 Unknown History Complex capsule) Allergy/AdvReac Type Severity Reaction Status Date / Time naproxen (From Naprosyn) Allergy Severe Hives Verified 05/29/25 23:10 Family History Mother Diabetes Father MADDY (obstructive sleep apnea) Surgical History S/P TAVR (transcatheter aortic valve replacement) Total knee replacement status Status post double vessel coronary artery bypass Social History Smoking Status: Never smoker second hand exposure: No alcohol intake: current alcohol intake frequency: a few times a month substance use type: former substance user Date of last use: marijuana in college ROS ROS ED Constitutional Constitutional ED: Reports other Details: Positive fatigue ; Denies chills or fever(s) Eyes Eyes: Denies blurry vision or change in vision ENT ENT ED: Denies sore throat Cardiovascular Cardiovascular: Reports palpitations and racing heartbeat; Denies chest pain Respiratory/Chest Respiratory/Chest: Denies cough or dyspnea Gastrointestinal Gastrointestinal: Denies abdominal pain, diarrhea, nausea or vomiting Genitourinary Genitourinary ED: Denies dysuria Musculoskeletal Musculoskeletal: Denies myalgias Integumentary Denies rash Neurologic Neurologic: Denies headache(s) Hematologic/Lymphatic Hematologic/Lymphatic: Denies easy bleeding or easy bruising EXAM Physical Exam Const Vital Signs: 05/29/25 23:10 05/29/25 23:12 05/29/25 23:32 Temperature 98.4 F Temperature Source Oral Pulse Rate 124 H Respiratory Rate 18 Respiratory Effort Short of Breath Respiratory Pattern Normal Blood Pressure 187/116 H 186/113 H Blood Pressure Mean 139 137 Blood Pressure Source Pulse Ox 99 Oxygen Delivery Method Room Air 05/30/25 00:36 05/30/25 01:10 05/30/25 01:15 Temperature 97.4 F L Temperature Source Oral Pulse Rate 123 H 122 H 123 H Respiratory Rate 16 14 18 Respiratory Effort Respiratory Pattern Blood Pressure 168/109 H 161/105 H 161/105 H Blood Pressure Mean 128 123 123 Blood Pressure Source Monitor Monitor Pulse Ox 97 96 100 Oxygen Delivery Method Room Air Room Air Room Air 05/30/25 01:53 Temperature Temperature Source Pulse Rate 123 H Respiratory Rate 17 Respiratory Effort Respiratory Pattern Blood Pressure 137/90 H Blood Pressure Mean 105 Blood Pressure Source Monitor Pulse Ox 98 Oxygen Delivery Method Room Air Positive well nourished and well developed General Appearance ED: well developed; Negative for pallor HEENT HEENT Narrative: Normocephalic atraumatic Eyes PERRL and EOMs intact bilaterally General Eye ED: Negative for scleral icterus Neck supple and no JVD Neck Narrative: No nuchal rigidity or meningeal signs Resp normal respiratory effort and clear to auscultation bilaterally Resp Narrative: No nasal flaring retractions or accessory muscle use Cardio regular rhythm Rate: tachycardic and other Other Details: Tachycardic rate with regular rhythm Grade 4 out of 6 systolic murmur noted Radial and carotid pulses are equal and symmetric GI normal to inspection, nondistended, normoactive bowel sounds, non-tender, non- distended and no masses GI Narrative: No voluntary guarding or rigidity or pulsatile mass Auscultation: normoactive bowel sounds Palpation: soft Extremity normal to inspection Extremity Narrative: Negative Homans' sign bilaterally Neuro oriented x3, CN's II-XII intact bilaterally and no sensory deficits noted Sensorium / Orientation: alert Motor Exam: strength 5/5 throughout Psych mental status grossly normal Skin no rashes or lesions noted and no wounds General Skin Exam: Negative for jaundice or pallor MDM MDM MDM Narrative Medical decision making narrative: Patient arrived to the ER hypertensive and tachycardic. She has a past medical history of hypertension. With the persistent tachycardia for approximately 24 hours there is high likelihood for cardiac dysrhythmia. She is status post TAVR insertion and therefore concern for a clot that is caused a PE is low and I do not feel the need for a CTA. Based on the cardiac dysrhythmia there is concern that she may have thyroid dysfunction PAULINE or clinically significant electrolyte abnormality. Blood work revealed no acute findings. The patient was placed on a Cardizem drip secondary to the EKG displaying atrial flutter. Despite being on the Cardizem drip there has been no resolution of the atrial flutter. As the patient has been in the abnormal cardiac rhythm for 24 hours and she is still persistently in it despite the Cardizem I feel she needs admitted for continued medication as well as cardiology consultation. I contacted the hospitalist secondary to this who agrees to accept the patient for continued care. History & Record Review Discussion w/independent historian: Patient and Significant other Lab Data Attestation: I reviewed the patient's lab results. Labs: Laboratory Results - last 24 hr 05/30/25 00:20 WBC 9.1 RBC 4.25 Hgb 12.4 Hct 37.5 MCV 88.2 MCH 29.2 MCHC 33.1 RDW Std Deviation 47.8 H RDW Coeff of Mark 14.8 H Plt Count 223 MPV 11.4 Immature Gran % (Auto) 0.300 Neut % (Auto) 63.2 Lymph % (Auto) 24.9 [place] % (Auto) 8.3 Eos % (Auto) 2.9 Baso % (Auto) 0.4 Absolute Neuts (auto) 5.7 Absolute Lymphs (auto) 2.26 Nucleated RBC % 0 Sodium 138 Potassium 3.9 Chloride 103 Carbon Dioxide 23.9 Anion Gap 12 BUN 16 Creatinine 0.86 Estim Creat Clear Calc 81.19 Est GFR (MDRD) Non-Af 72 BUN/Creatinine Ratio 19.0 Glucose 105 H Calcium 9.4 Magnesium 2.0 TSH 3.020 Management Discussion w/another healthcare provider: Hospitalist Discharge Plan Dx/Rx/DC Orders Clinical Impression: HTN (hypertension), Aortic valve insufficiency, MADDY (obstructive sleep apnea), New onset atrial flutter Disposition Disposition: Acute Care Hospital [facility] Discharge Date/Time: 05/30/25 02:56
--- OUTSIDE RECORDS SUMMARY | 2025-05-30 02:33 | XMS RPT_ITS | CCD ---
Author Organization [facility]ini[facility] Care Team Providers Care Nanotechnician Name Role Phone Nicol Ibanez Unavailable Unavailable Jass Pepe Unavailable Blaine Silveira Unavailable Unavailable Blaine Silveira Unavailable Unavailable Nicol Ibanez Primary Care Provider Jass Pepe Unavailable [phone] Nicol Ibanez Primary Care Provider Jass Pepe Unavailable Nicol Ibanez MD Primary Care Provider Jass Pepe MD Unavailable Nicol Ibanez MD Primary Care Provider Jass Pepe MD Unavailable Fanning, Robert Lynne [...] Marcelle HARPER, Nicol Osborn Primary Care Provider Afshin HARPER, Jass Maldonado Unavailable NICOL IBANEZ Primary Care Un[facility] OS[facility]ORN Primary Care Unavailable ANGELICA RANDALL Admitting Unavailable TONIA, ANGELICA HSIEH Attending Unavailable TOMCHAK, NICOL OSBORN Primary Care Unavailable ANGELICA RANDALL Attending Unavailable TOMCHAAyana, NICOL OSBORN Primary Care Unavailable TRERIE OH Attending Unavailable TOMMELCHOR, NICOL OSBORN Primary Care Unavailable AMEZCUA, JAVI FLORES Referring Unavailable NEWELL, KIRILL A Primary Care Unavailable AMEZCUA, JAVI FLORES Referring Unavailable NEWELL, KIRILL A Primary Care Unavailable AMEZCUAJAVI Referring Unavailable NEWELL, KIRILL A Primary Care Unavailable AMEZCUAJAVI Referring Unavailable NEWELL, KIRILL A Primary Care Unavailable AMEZCUA, JAVI FLORES Referring Unavailable NEWELL, KIRILL A Primary Care Unavailable AMEZCUA, JAVI BLOUNTE Referring Unavailable NEWELL, KIRILL A Primary Care Unavailable AMEZCUA, JAVI FLORES Referring Unavailable NEWELL, KIRILL A Primary Care Unavailable AMEZCUA, JAVI FLORES Referring Unavailable NEWELL, KIRILL A Primary Care Unavailable AMEZCUA, JAVI FLORES Referring Unavailable NEWELL, KIRILL A Primary Care Unavailable AMEZCUAJAVI Referring Unavailable NEWELL, KIRILL A Primary Care Unavailable AMEZCUAJAVI Referring Unavailable NEWELL, KIRILL A Primary Care Unavailable AMEZCUAJAVI Referring Unavailable NEWELL, KIRILL A Primary Care Unavailable TOMSTEFANIK, NICOL OSBORN Primary Care Unavailable JASS PEPE Referring Unavailab JASS Rivers Admitting Unavailab maty PEPE, JASS MALDONADO Referring Unavailab le TOMMELCHOR, NICOL OSOBRN Primary Care Unavailable SHERLYN VILLAVICENCIO Attending Unavailable GABRIEL TOVAR Attending Unavailable JASS PEPE Admitting Unavailab maty PEPE, JASS MALDONADO Referring Unavailab le TOMMELCHOR, NICOL OSBORN Primary Care Unavailable MIKAELA KAMARA Attending Unavailable JASS PEPE Admitting Unavailab le JASS PEPE Referring Unavailab le TOMCHAKNICOL Primary Care Unavailable GABRIEL TOVAR Attending Unavailable JASS PEPE Admitting Unavailab le AFSHIN, JASS MALDONADO Referring Unavailab le TOMCHAK, NICOL OSBORN Primary Care Unavailable JASS PEPE Admitting Unavailab le AFSHIN, JASS MALDONADO Referring Unavailab le TOMCHAK, NICOL OSBORN Primary Care Unavailable FLORES GORE Attending Unavailable JASS PEPE Admitting Unavailab le AFSHIN, JASS MALDONADO Referring Unavailab le TOMCHAK, NICOL OSBORN Primary Care Unavailable FLORES GORE Attending Unavailable JASS PEPE Attending Unavailab le AFSHIN, JASS MALDONADO Admitting Unavailab le TOMCHAK, NICOL OSBORN Primary Care Unavailable JASS PEPE Referring Unavailab le AFSHIN, JASS MALDONADO Admitting Unavailab le AFSHIN, JASS MALDONADO Referring Unavailab le TOMCHAK, NICOL OSBORN Primary Care Unavailable FLORES GORE Attending Unavailable JASS PEPE Referring Unavailab le GUY, GABRIEL Attending Unavailable NICOL IBANEZ Primary Care Unavailable JASS PEPE Admitting Unavailab le GUY, GABRIEL Attending Unavailable JASS PEPE Referring Unavailab le AFSHIN, JASS MALDONADO Admitting Unavailab le TOMCHAK, NICOL OSBORN Primary Care Unavailable MIKAELA KAMARA Attending Unavailable JASS PEPE Referring Unavailab le AFSHIN, JASS MALDONADO Admitting Unavailab le TOMCHAK, NICOL OSBORN Primary Care Unavailable JASS PEPE Admitting Unavailab le TOMCHAK, NICOL OSBORN Primary Care Unavailable JASS PEPE Referring Unavailab JASS Rivers Attending Unavailab le TOMCHAKNICOL Primary Care Unavailable JASS PEPE Referring Unavailab le TOVAR, GABRIEL Attending Unavailable JASS PEPE Admitting Unavailab le AFSHIN, JASS MALDONADO Referring Unavailab le TOMCHAK, NICOL OSBORN Primary Care Unavailable JASS PEPE Referring Unavailab MIKAELA Sullivan Attending Unavailable NICOL IBANEZ Primary Care Unavailable JASS PEPE Admitting Unavailab le TOMCHAAyana, NICOL OSBORN Primary Care Unavailable JAVI AMEZCUA Admitting Unavailable JAVI AMEZCUA Referring Unavailable TOMMELCHOR, NICOL OSBORN Primary Care Unavailable JAVI AMEZCUA Attending Unavailable JASS PEPE Admitting Unavailab JASS Rivers Referring Unavailab NICOL [place] Primary Care Unavailable NICOL IBANEZ Primary Care Unavailable JASS PEPE Attending Unavailab NICOL [place] Primary Care Unavailable BLAINE SILVEIRA Admitting Unavailable BLAINE SILVEIRA Attending Unavailable JASS PEPE Referring Unavailab NICOL [place] Primary Care Unavailable JASS PEPE Attending Unavailab NICOL [place] Primary Care Unavailable JASS PEPE Attending Unavailab maty Newell Kirill Primary Care Unavailable Kirill Newell Referring Unavailable Cristhian Coleman Attending Unavailable Newell, Kirill Primary Care Unavailable Kirill Newell Attending Unavailable Reece, Kirill Referring Unavailable Kirill Newell Attending Unavailable Newell, Kirill Referring Unavailable Newell, Kirill Primary Care Unavailable Allergies Allergy Classification Reported Allergen(s) Allergy Type Date of Onset Reaction(s) Facility NSAIDs (4 sources) Naproxen Drug Allergy 5 [facility] Quinolones (antibiotic) (4 sources) levoFLOXacin Drug Allergy [address] [place] [address] (20 sources) levoFLOXacin; Translations: [LEVOFLOXACIN] Propensity to adverse reactions to drug [address] [place] [address] Work Phone: (20 sources) naproxen; Translations: [NAPROXEN] Propensity to adverse reactions to drug [address] [place] [address] Work Phone: (1 source) ALLERGIES NOT ON FILE; Translations: [ALLERGIES NOT ON FILE] Propensity to adverse reactions (disorder) [facility] 2 Repository (1 source) Naproxen Drug Allergy 3 [facility] Repository Medications Current Medications Medication Drug Class(es) Dates Sig (Normalized) Sig (Original) amLODIPine 5 mg oral tablet (20 sources) Dihydropyridine Calcium Channel Amy Start: 11-17-2017 End: 01-22-2022 take 5 mg by mouth once daily Amlodipine Active 5 MG PO daily December 22, 2017 12:00am aspirin 81 mg chewable tablet (20 sources) Nonsteroidal Anti-inflammatory Drug Start: 02-01-2024 aspirin 81 mg chewable tablet Start: 01-26-2024 End: 02-25-2024 take 1 tablet by mouth twice daily aspirin 325 MG EC tablet Take 1 (one) tablet (325 mg total) by mouth 2 (two) times a day . 60 tablet 0 01/26/2024 02/25/2024 Active Start: 01-21-2022 End: 01-22-2022 take 81 mg by mouth every other day 81 mg, Oral, Every other day, First dose on Thu01/21/22 at 1730, PACU to Post Procedure DO NOT CRUSH OR CHEW. Start: 12-22-2017 take 1 tablet by abel th once daily Aspirin (Adult Aspirin Regimen) 81 mg tablet,delayed release (DR/EC) Active 81 MG PO daily December 22, 2017 12:00am azithromycin 250 mg oral tablet (20 sources) Macrolide Antimicrobial Start: 01-04-2022 azithromycin (ZITHROMAX) 250 MG tablet Start: 08-04-2018 End: 09-02-2018 take 250 mg by mouth once daily Azithromycin Discontinued 250 MG PO daily August 03, 2018 11:00pm September 02, 2018 9:26am Start: 01-29-2018 End: 03-16-2018 take 250 mg by mouth once daily Azithromycin Discontinued 250 MG PO daily January 29, 2018 12:00am March 16, 2018 8:23am [id number]-[id number] ORAL (20 sources) take 1 tablet by mouth once daily [id number]-[id number]-[id number] ORAL Take 1 tablet by mouth daily . 0 take 1 tablet by mouth once umm y GINEPXY-ETNAJSUZG-VYXK ORAL Take 1 tablet by mouth daily . 0 Suspended take 1 tablet by mouth once umm y URGAZYK-[id number]-[id number] ORAL Take 1 tablet by mouth daily . 0 Active take 1 tablet by mouth twice erinn ly [id number]-[id number]-QPNA ORAL Take 1 tablet by mouth 2 (two) times a day Active cholecalciferol 0.125 mg oral capsule (20 sources) Vitamin D Start: 12-22-2017 take 5000 [IU] by mouth once daily Cholecalciferol (Vitamin D3) Active 5000 UNIT PO daily December 22, 2017 12:00am take 1 capsule by mouth once erinn ly cholecalciferol, vitamin D3, 50 mcg (2,000 unit) cap Take 1 (one) capsule by mouth daily . 0 Active take 1 tablet by mouth once umm y cholecalciferol, vitamin D3, 5,000 unit Tab Take 5,000 Units by mouth daily 0 Active clopidogrel 75 mg oral tablet (6 sources) P2Y12 Platelet Inhibitor Start: 01-22-2022 End: 04-22-2022 take 1 tablet by mouth once daily clopidogreL (PLAVIX) 75 mg tablet Take 1 (one) tablet (75 mg total) by mouth daily . 30 tablet 2 01/22/2022 04/22/2022 Active diphenhydrAMINE hydrochloride 25 mg oral capsule (20 sources) Histamine-1 Receptor Antagonist Start: 09-02-2018 take 1 capsule by mouth at bedtime Diphenhydramine Hcl (Benadryl) 25 mg capsule Active 25 MG PO AT BEDTIME September 01, 2018 11:00pm take 1 tablet by abel th once daily as needed for sleep diphenhydrAMINE (BENADRYL) 50 MG tablet Take 1 (one) tablet (50 mg total) by mouth nightly as needed for sleep . 0 Active take 1 tablet by abel th once daily for sleep diphenhydrAMINE (BENADRYL) 25 mg tablet Take 1 (one) tablet (25 mg total) by mouth nightly FOR SLEEP . 0 Active doxycycline hyclate 100 mg oral tablet (2 sources) Tetracycline-class Drug Start: 01-11-2024 End: 01-18-2024 take 1 tablet by mouth twice daily doxycycline hyclate (VIBRA-TABS) 100 MG tablet Indications: MSSA (methicillin susceptible Staphylococcus aureus) Take 1 (one) tablet (100 mg total) by mouth 2 (two) times a day for 7 days . 14 tablet 0 01/11/2024 01/18/2024 Active 120 actuat fluticasone propionate 0.22 mg/actuat metered dose inhaler (20 sources) Corticosteroid Start: 03-08-2020 Fluticasone Propionate (Flovent Hfa) 220 mcg/actuation HFA aerosol inhaler Active 2 INH INHALATION TWICE A DAY March 07, 2020 11:00pm Start: 08-18-2019 End: 12-06-2019 Fluticasone Propionate Disco ntinued 2 SPRAY INTRANASAL DAILY August 17, 2019 11:00pm December 06, 2019 11:23am Start: 01-19-2018 End: 09-02-2018 take 200 ug by inhalation once daily Fluticasone Furoate (Arnuity Ellipta) 200 mcg/actuation blister with device Discontinued 1 INH INHALATION daily January 19, 2018 12:00am September 02, 2018 9:26am administer at approximately the same time(s) each day Start: 01-19-2018 End: 09-02-2018 take 200 ug by inhalation once daily Fluticasone Furoate (Arnuity Ellipta) 200 mcg/actuation blister with device Discontinued 1 INH INHALATION daily January 19, 2018 1:00am September 02, 2018 10:26am administer at approximately the same time(s) each day Start: 12-22-2017 End: 09-02-2018 Fluticasone Propionate (Flon ase Allergy Relief) 50 mcg/actuation spray,suspension Discontinued 1 SPRAY INTRANASAL daily December 22, 2017 12:00am December 22, 2017 10:44am take 2 spray(s) nasa l route once daily as needed fluticasone propionate (FLONASE) 50 mcg/actuation nasal spray Instill 2 (two) sprays into each nostril daily as needed for allergies . 0 Active lactobacillus combo no.11 (P robiotic) 15 billion cell CpSP (20 sources) lactobacillus co mbo no.11 (Probiotic) 15 billion cell CpSP Take by mouth daily . 0 lactobacillus co mbo no.11 (Probiotic) 15 billion cell CpSP Take by mouth daily . 0 Suspended lactobacillus co mbo no.11 (Probiotic) 15 billion cell CpSP Take by mouth daily . 0 Active losartan potassium 50 mg oral tablet (20 sources) Angiotensin 2 Receptor Amy Start: 01-22-2022 End: 01-22-2022 take 100 mg by mouth once daily 100 mg, Oral, Nightly, First dose on Thu01/22/22 at 2100 take 1 tablet by mouth once umm y losartan (COZAAR) 100 MG tablet Take 1 (one) tablet (100 mg total) by mouth nightly . 0 Active take 1 tablet by mouth once umm y losartan (COZAAR) 50 MG tablet Take 50 mg by mouth nightly . 0 Active 24 hr metoprolol succinate 50 mg extended release oral tablet (20 sources) beta-Adrenergic Amy Start: 06-10-2019 End: 01-22-2022 take 1 tablet by mouth once daily metoprolol succinate (TOPROL-XL) 50 MG 24 hr tablet Take 1 (one) tablet (50 mg total) by mouth daily . 90 tablet 3 06/10/2019 Active Start: 10-27-2018 take 1 tablet by abel th once daily metoprolol succinate (TOPROL-XL) 50 MG 24 hr tablet Take 1 (one) tablet (50 mg total) by mouth daily . 90 tablet 0 10/27/2018 Active Start: 12-22-2017 take 50 mg by mouth once daily Metoprolol Tartrate Active 50 MG PO daily December 22, 2017 12:00am Start: 11-17-2017 take 1 tablet by abel th once daily metoprolol succinate (TOPROL-XL) 50 MG 24 hr tablet Take 1 (one) tablet (50 mg total) by mouth daily. 90 tablet 3 11/17/2017 Active mupirocin 0.02 mg/mg topical ointment (2 sources) RNA Synthetase Inhibitor Antibacterial Start: 01-11-2024 End: 01-18-2024 mupirocin (BACTROBAN) 2 % ointment Indications: MSSA (methicillin susceptible Staphylococcus aureus) Apply topically 2 (two) times a day for 7 days . 22 g 0 01/11/2024 01/18/2024 Active nitroglycerin 0.4 mg sublingual tablet (20 sources) Nitrate Vasodilator Start: 06-10-2021 nitroGLYCERIN (NITROSTAT) 0.[address] 1 (one) tablet (0.4 mg total) under the tongue every 5 (five) minutes as needed for chest pain , if no relief after 3 doses call 911 . 25 tablet 4 06/11/2021 Active omeprazole 20 mg delayed release oral capsule (16 sources) Proton Pump Inhibitor Start: 12-08-2022 take 1 capsule by mouth once daily omeprazole (PRILOSEC) 20 MG capsule Take 1 (one) capsule (20 mg total) by mouth nightly . 0 12/08/2022 Active Start: 12-09-2016 End: 06-06-2019 take 20 mg by mouth once daily Omeprazole Active 20 MG PO daily December 22, 2017 12:00am oxyCODONE hydrochloride 5 mg oral tablet (20 sources) Opioid Agonist Start: 02-08-2024 End: 02-15-2024 oxyCODONE (ROXICODONE) 5 MG immediate release tablet Indications: Status post total right knee replacement Take 1 (one) tablet (5 mg total) by mouth every 4 (four) hours as needed for pain (Days supply per fill: 7) . 40 tablet 0 02/08/2024 02/15/2024 Active Start: 01-26-2024 End: 02-02-2024 oxyCODONE (ROXICODONE) 5 MG immediate release tablet Indications: S/P total knee arthroplasty, right [The details of the medication are not available because there are pending changes by a home health clinician.] 40 tablet 0 01/26/2024 02/02/2024 Start: 01-21-2022 End: 01-21-2022 take 10 mg by mouth once 10 mg, Oral, Once, On Thu at 0815, For 1 dose, Pre-Procedure DO NOT CRUSH OR CHEW. pantoprazole 20 mg delayed release oral tablet (20 sources) Proton Pump Inhibitor Start: 01-27-2024 End: 02-26-2024 take 1 tablet by mouth once daily pantoprazole (PROTONIX) 20 MG tablet Take 1 (one) tablet (20 mg total) by mouth daily Start: 01/27/24. 30 tablet 0 01/27/2024 Active Start: 01-21-2022 End: 01-22-2022 take 40 mg by mouth once daily 40 mg, Oral, Daily, Fir st dose on Thu01/21/22 at 1730, PACU to Post Procedure DO NOT CRUSH OR CHEW. Start: 06-10-2019 End: 06-10-2021 take 1 tablet by mouth once daily pantoprazole (PROTONIX) 40 MG tablet Take 1 (one) tablet (40 mg total) by mouth daily . 90 tablet 3 06/10/2019 06/10/2021 Discontinued take 1 tablet by abel th once daily pantoprazole (PROTONIX) 40 MG tablet Take 40 mg by mouth daily . 0 Active predniSONE 10 mg oral tablet (20 sources) Start: 08-18-2019 Prednisone Act quinn 10 MG PO daily August 17, 2019 11:00pm take 4 tabs for three days, then 3 tabs for three days, then 2 tabs for three days, then 1 tab for 3 days Start: 08-16-2019 End: 08-18-2019 take 60 mg by mouth once daily at mealtime Prednisone Discontinued 60 MG PO daily August 15, 2019 11:00pm August 18, 2019 12:19pm administer with food or milk Start: 02-09-2019 End: 02-28-2019 Prednisone Discontinued 10 M G PO daily February 08, 2019 11:00pm February 28, 2019 1:14pm take 4 tabs for three days, then 3 tabs for three days, then 2 tabs for three days, then 1 tab for 3 days Start: 01-27-2019 End: 02-09-2019 take 60 mg by mouth once daily at mealtime Prednisone Discontinued 60 MG PO daily January 27, 2019 12:00am February 09, 2019 1:36pm administer with food or milk Start: 08-04-2018 End: 09-02-2018 take 60 mg by mouth once daily at mealtime Prednisone Discontinued 60 MG PO daily August 03, 2018 11:00pm September 02, 2018 9:27am administer with food or milk spacer (7 sources) Start: 03-06-2020 spacer Active 0 .ROUTE .MEDSUPPLY March 05, 2020 11:00pm As directed Start: 03-06-2020 spacer Active 0 .ROUTE .MEDSUPPLY March 06, 2020 12:00am As directed valsartan 160 mg oral tablet (10 sources) Angiotensin 2 Receptor Amy Start: 11-17-2017 End: 06-06-2019 take 160 mg by mouth once daily Valsartan Active 160 MG PO daily December 22, 2017 12:00am Vitamin B Complex (20 sources) take 1 tablet by mouth once daily b complex vitamins tablet Take 1 (one) tablet by mouth daily . 0 Active take 1 tablet by mouth once umm y b complex vitamins tablet Take 1 tablet by mouth daily . 0 take 1 tablet by mouth once umm y b complex vitamins tablet Take 1 tablet by mouth daily . 0 Suspended take 1 tablet by mouth once umm y b complex vitamins tablet Take 1 tablet by mouth daily . 0 Active Completed/Discontinued Medications Medication Drug Class(es) Dates Sig (Normalized) Sig (Original) acetaminophen 325 mg oral tablet (20 sources) Start: 01-21-2022 End: 01-22-2022 take 1 tablet by mouth every four hours as needed for pain 650 mg, Oral, Every 4 hours PRN, mild pain, Starting on Thu01/21/22 at 1636, PACU to Post Procedure Start: 01-21-2022 End: 01-21-2022 take 1300 mg by mouth once 1,300 mg, Oral, Once, On 01/21/22 at 0815, For 1 dose, Pre-Procedure take 1 tablet by abel th twice daily acetaminophen (TYLENOL) 500 MG tablet Take 1 (one) tablet (500 mg total) by mouth 2 (two) times a day . 0 Active [id number] 200 actuat albuterol 0.09 mg/actuat metered dose inhaler (20 sources) beta2-Adrenergic Agonist Start: 01-21-2022 End: 01-22-2022 take 2 puff(s) by inhalation every six hours as needed for wheezing 2 puff, Inhalation, Every 6 hours PRN, wheezing, Starting on Thu01/21/22 at 1636, PACU to Post Procedure SPACER REQUIRED FOR ADMINISTRATION Start: 01-21-2022 End: 01-21-2022 take 2.5 mg by inhalation once 2.5 mg, Inhalation, Onc e (RT), On Thu01/21/22 at 0815, For 1 dose, Pre-Procedure Start: 12-22-2017 take 2.5 mg by inhal ation every four hours Albuterol Sulfate Active 2.5 MG INHALATION Q4H December 22, 2017 12:00am Start: 12-22-2017 End: 12-22-2018 take 90 ug by inhalation every four hours Albuterol Sulfate (Proair Respiclick) 90 mcg/actuation aerosol powdr breath activated Active 2 INH INHALATION Q4H December 22, 2018 10:09am take 2 puff(s) by in halation every six hours as needed for wheezing albuterol 90 mcg/actuation inhaler Inhale 2 puffs every 6 (six) hours as needed for wheezing. 0 Active albuterol 90 mcg /actuation inhaler Inhale 2 puffs every 6 (six) hours as needed for wheezing. Active azelastine hydrochloride 0.137 mg/actuat / fluticasone propionate 0.05 mg/actuat metered dose nasal spray (12 sources) Corticosteroid, Histamine-1 Receptor Antagonist Start: 07-29-2018 End: 12-06-2019 take 1 spray(s) nasal route twice daily azelastine-fluticasone 137 mcg-50 mcg/spray nasal spray Discontinued 1 SPRAY INTRANASAL TWICE A DAY July 28, 2018 11:00pm December 06, 2019 11:23am administer into each nostril End: 06-10-2021 take 1 spray(s) nasal route twice daily azelastine-fluticasone (DYMISTA) 137-50 mcg/spray [place] Instill 1 spray into each nostril 2 (two) times a day . 0 06/10/2021 Discontinued breath-actuated 120 actuat beclomethasone dipropionate 0.08 mg/actuat metered dose inhaler (20 sources) Corticosteroid Start: 03-06-2020 End: 03-08-2020 take 80 ug by inhalation every twelve hours Beclomethasone Dipropionate (Qvar Redihaler) 80 mcg/actuation HFA aerosol breath activated Discontinued 2 INH INHALATION Q12H 10.6 March 05, 2020 11:00pm March 08, 2020 8:50am Start: 07-29-2018 End: 12-06-2019 take 1 puff(s) by inhalation every twelve hours Beclomethasone Dipropionate (Qvar Redihaler) 80 mcg/actuation HFA aerosol breath activated Discontinued 2 PUFF INHALATION Q12H 10.6 June 27, 2019 10:58am December 06, 2019 11:48am End: 06-10-2021 take 2 puff(s) by inhalation twice daily beclomethasone (QVAR) 80 mcg/actuation inhaler Inhale 2 puffs 2 (two) times a day . 0 06/10/2021 Discontinued ceFAZolin 2000 mg injection (1 source) Cephalosporin Antibacterial Start: 01-21-2022 End: 01-22-2022 take 2000 mg intravenously every eight hours 2,000 mg, Intravenous, at 100 mL/hr, Every 8 hours, First dose on Thu01/21/22 at 1900, For 3 doses, PACU to Post Procedure Indication: Other (specify) Indication: s/p TAVR cephalexin 500 mg oral capsule (10 sources) Cephalosporin Antibacterial Start: 01-26-2024 End: 02-02-2024 take 1 capsule by mouth three times daily cephALEXin (KEFLEX) 500 MG capsule Take 1 (one) capsule (500 mg total) by mouth 3 (three) times a day for 7 days . 21 capsule 0 01/26/2024 02/02/2024 cyclobenzaprine hydrochloride 10 mg oral tablet (17 sources) Muscle Relaxant Start: 01-26-2024 End: 02-05-2024 take 1 tablet by mouth three times daily as needed for muscle spasms cyclobenzaprine (FLEXERIL) 10 MG tablet Take 1 (one) tablet (10 mg total) by mouth 3 (three) times a day as needed for muscle spasms . 30 tablet 0 01/26/2024 02/05/2024 docusate sodium 50 mg / sennosides, intermediate 8.6 mg oral tablet (1 source) Start: 01-21-2022 End: 01-22-2022 take 1 tablet by mouth twice daily 1 tablet, Oral, 2 times daily, First dose on Thu01/21/22 at 2100, PACU to Post Procedure NOT for abdominal surgery patients. &nb sp;Hold for loose stools. Do Not Crush or Chew if administering orally due to bitter taste. May be crushed if given via tube. dronabinol 5 mg oral capsule (1 source) Cannabinoid Start: 01-21-2022 End: 01-21-2022 5 mg, Oral, Once, On Thu01/21/22 at 0815, For 1 dose, Pre-Procedure administer 30-60 minutes prior to surgery 30 actuat fluticasone furoate 0.1 mg/actuat / vilanterol 0.025 mg/actuat dry powder inhaler (7 sources) Corticosteroid, beta2-Adrenergic Agonist Start: 12-22-2017 End: 12-22-2017 Fluticasone Furoate-Vilanterol (Breo Ellipta) 100-25 mcg/dose blister with device Discontinued 1 INH INHALATION Q24H December 22, 2017 12:00am December 22, 2017 10:44am 1 ml heparin sodium, porcine 5000 unt/ml injection (1 source) Unfractionated Heparin, Anti-coagulant Start: 01-21-2022 End: 01-22-2022 inject 5000 [IU] by subcutaneous injection every eight hours 5,000 Units, Subcutaneous, Every 8 hours scheduled, First dose on Thu01/21/22 at 1730, PACU to Post Procedure Notify physician if patient refuses. 1 ml hydrALAZINE hydrochloride 20 mg/ml injection (1 source) Arteriolar Vasodilator Start: 01-21-2022 End: 01-22-2022 take 10 mg intravenously every four hours as needed 10 mg, Intravenous, Every 4 hours PRN, Systolic blood pressure greater than 160, Starting on Thu01/21/22 at 1636, PACU to Post Procedure loratadine 10 mg oral tablet (20 sources) End: 01-21-2023 take 1 tablet by mouth once daily as needed loratadine (CLARITIN) 10 mg tablet Take 10 mg by mouth daily as needed . 0 01/21/2023 Discontinued (Discontinued by another clinician) 50 ml magnesium sulfate 40 mg/ml injection (1 source) Start: 01-21-2022 End: 01-21-2022 magnesium sulfate 2 g in sterile water (SW) 50 mL IVPB montelukast 10 mg oral tablet (20 sources) Leukotriene Receptor Antagonist Start: 12-22-2017 End: 12-06-2019 take 1 tablet by mouth at bedtime Montelukast (Singulair) 10 mg tablet Discontinued 10 MG PO AT BEDTIME June 11, 2018 8:28am September 02, 2018 9:49am naloxone (NARCAN) injection 0.1 mg (1 source) Start: 01-21-2022 End: 01-22-2022 naloxone (NARCAN) injection 0.1 mg nystatin [id number] unt/ml oral suspension (14 sources) Polyene Antifungal Start: 08-10-2018 End: 02-28-2019 take [id number] [IU] by mouth three times daily Nystatin Discontinued [id number] UNIT PO THREE TIMES A DAY 60 August 10, 2018 12:06pm February 28, 2019 1:14pm 2 ml ondansetron 2 mg/ml injection (1 source) Serotonin-3 Receptor Antagonist Start: 01-21-2022 End: 01-22-2022 take 4 mg intravenously every six hours as needed for nausea and vomiting 4 mg, Intravenous, Every 6 hours PRN, nausea, vomiting, Starting on Thu01/21/22 at 1636, PACU to Post Procedure perflutren lipid microspheres (DEFINITY) 0.143 mg/mL solution 0-10 mL of mixture (1 source) Start: 01-21-2022 End: 01-22-2022 perflutren lipid microspheres (DEFINITY) 0.143 mg/mL solution 0-10 mL of mixture polyethylene glycol 3350 04857 mg powder for oral solution (10 sources) Osmotic Laxative Start: 01-26-2024 End: 02-02-2024 polyethylene glycol (MIRALAX) 17 gram powder Take 17 (seventeen) g by mouth daily for 7 days . 7 packet 0 01/26/2024 02/02/2024 microencapsulated potassium chloride 20 meq extended release oral tablet (1 source) Start: 01-21-2022 End: 01-21-2022 potassium chloride SA (K-DUR,KLOR-CON) CR tablet 20 mEq Start: 01-21-2022 End: 01-21-2022 potassium chloride SA (K-DUR ,KLOR-CON) CR tablet 20 mEq pravastatin sodium 20 mg oral tablet (20 sources) HMG-CoA Reductase Inhibitor Start: 01-21-2022 End: 01-22-2022 take 40 mg by mouth once daily 40 mg, Oral, Nightly, First dose on Thu01/21/22 at 2100, PACU to Post Procedure Start: 11-17-2017 take 1 tablet by abel th once daily pravastatin (PRAVACHOL) 40 MG tablet Indications: Coronary artery disease involving [place] coronary artery of [place] heart without angina pectoris Take 1 (one) tablet (40 mg total) by mouth nightly . 90 tablet 0 10/27/2018 Active 1000 ml sodium chloride 9 mg/ml injection (5 sources) Start: 01-21-2022 End: 01-22-2022 1,000 mL, Intra-arterial, Continuous, Starting on Thu01/21/22 at 1730, PACU (only) Maintain line at 300 mmHg. Start: 01-21-2022 End: 01-22-2022 take 25 mL intravenously every hour 25 mL/hr, Intravenous, Continuous, Starting on Thu01/21/22 at 1730, PACU (only) Peripheral lines Start: 01-21-2022 End: 01-22-2022 sodium chloride (PF) (NS) fl ush 5 mL Start: 01-21-2022 End: 01-21-2022 sodium chloride 0.9% (NS) Tiotropium [place] (7 sources) Anticholinergic Start: 12-22-2017 End: 12-22-2017 take 1 puff(s) by inhalation once daily Tiotropium [place] (Spiriva Respimat) 2.5 mcg/actuation mist Discontinued 2 PUFF INHALATION daily December 22, 2017 12:00am December 22, 2017 10:44am Start: 12-22-2017 End: 12-22-2017 take 1 puff(s) by inhalation once daily Tiotropium [place] (Spiriva Respimat) 2.5 mcg/actuation mist Discontinued 2 PUFF INHALATION daily December 22, 2017 1:00am December 22, 2017 11:44am Problems Active Problems Problem Classification Problem Date Documented Date Episodic/Chronic Abdominal hernia (7 sources) Unspecified abdominal hernia without obstruction or gangrene; Translations: [Hernia] 01-19-2018 Episodic Aortic; peripheral; and visceral artery aneurysms (20 sources) Ascending aorta dilatation; Translations: [Thoracic aortic ectasia] Onset: 04-04-2022 04-04-2022 Chronic Bacterial infection; unspecified site (1 source) Infection by methicillin sensitive Staphylococcus aureus; Translations: [Methicillin susceptible Staphylococcus aureus infection, unspecified site] 01-11-2024 Episodic Chronic ulcer of skin (20 sources) Chronic ulcer of skin; Translations: [Non-pressure chronic ulcer of skin of other sites with muscle involvement without evidence of necrosis] 04-16-2023 Chronic Coronary atherosclerosis and other heart disease (20 sources) 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[place] artery; Translations: [Atherosclerotic heart disease of [place] coronary artery without angina pectoris] Onset: 11-05-2015 04-21-2016 Chronic Disorders of lipid metabolism (20 sources) Mixed hyperlipidemia; Translations: [Mixed hyperlipidemia] Onset: 06-10-2021 Chronic E Codes: Fall (4 sources) Falling injury; Translations: [Unspecified fall, initial encounter] 06-25-2023 Episodic Essential hypertension (20 sources) Hypertensive disorder; Translations: [Essential (primary) hypertension] Onset: 01-21-2023 Chronic Genitourinary symptoms and ill-defined conditions (1 source) Abnormal urine; Translations: [Other abnormal findings in urine] Episodic Heart valve disorders (20 sources) Aortic valve regurgitation; Translations: [Nonrheumatic aortic (valve) insufficiency] Onset: 11-05-2015 01-06-2018 Chronic Heart valve disorders (7 sources) Heart murmur; Translations: [Cardiac murmur, unspecified] 01-19-2018 Episodic Open wounds of head; neck; and trunk (5 sources) Laceration - injury; Translations: [Laceration] 06-25-2023 Episodic Osteoarthritis (20 sources) Osteoarthritis of right knee joint; Translations: [Unilateral primary osteoarthritis, right knee] Onset: 09-25-2023 09-27-2023 Chronic Other aftercare (2 sources) Aftercare following joint replacement surgery; Translations: [Aftercare following joint replacement surgery] Onset: 01-27-2024 Chronic Other aftercare (2 sources) Encounter for follow-up examination after completed treatment for conditions other than malignant neoplasm; Translations: [Encounter for follow-up examination after completed treatment for conditions other than malignant neoplasm] Onset: 03-25-2024 Episodic Other bone disease and musculoskeletal deformities (1 source) Other specified disorders of bone density and structure, unspecified site; Translations: [Other specified disorders of bone density and structure, unspecified site] Onset: 01-12-2025 Episodic Other circulatory disease (1 source) Other specified symptoms and signs involving the circulatory and respiratory systems; Translations: [Other symptoms involving cardiovascular system] Episodic Other connective tissue disease (20 sources) History of total knee arthroplasty; Translations: [Presence of unspecified artificial knee joint] Onset: 02-15-2024 01-19-2018 Chronic Other connective tissue disease (6 sources) Presence of right artificial knee joint; Translations: [Presence of right artificial knee joint] Onset: 01-27-2024 Chronic Other injuries and conditions due to external causes (5 sources) Injury of head; Translations: [Unspecified injury of head, initial encounter] 06-25-2023 Episodic Other lower respiratory disease (3 sources) Dyspnea; Translations: [Dyspnea, unspecified] Episodic Other lower respiratory disease (7 sources) Dyspnea on exertion; Translations: [Shortness of breath] 01-19-2018 Episodic Other lower respiratory disease (7 sources) Chronic cough; Translations: [Chronic cough] 12-22-2017 Episodic Other non-epithelial cancer of skin (20 sources) Basal cell carcinoma of lower extremity; Translations: [Basal cell carcinoma of skin of left lower limb, including hip] 04-16-2023 Episodic Other non-traumatic joint disorders (2 sources) Pain in right knee; Translations: [Pain in right knee] Onset: 09-29-2023 Episodic Other nutritional; endocrine; and metabolic disorders (7 sources) Body mass index 40+ - severely obese; Translations: [Body mass index (BMI) 40.0-44.9, adult] 06-08-2019 Chronic Other nutritional; endocrine; and metabolic disorders (12 sources) Body mass index (BMI) 40.0-44.9, adult; Translations: [Body Mass Index 40.0-44.9, adult] 04-29-2023 Chronic Other screening for suspected conditions (not mental disorders or infectious disease) (2 sources) Coag./bleeding tests abnormal; Translations: [Abnormal coagulation profile] Episodic Other upper respiratory disease (7 sources) Allergic rhinitis; Translations: [Allergic rhinitis, unspecified] 07-29-2018 Chronic Unclassified (2 sources) Mediastinitis; Translations: [Fibrosing mediastinitis] Onset: 11-05-2015 04-21-2016 Past or Other Problems Problem Classification Problem Date Documented Date Episodic/Chronic Other connective tissue disease (1 source) Pain in left leg; Translations: [Pain in left leg] Onset: 06-06-2024 Episodic Other hematologic conditions (20 sources) ESR raised; Translations: [Elevated erythrocyte sedimentation rate] Onset: 06-10-2021 Episodic Other lower respiratory disease (2 sources) Shortness of breath; Translations: [Shortness of breath] Onset: 02-19-2022 Episodic Other upper respiratory disease (20 sources) Sclerosing mediastinitis; Translations: [Mediastinitis] Onset: 11-05-2015 04-21-2016 Episodic Residual codes; unclassified (2 sources) Pain, unspecified; Translations: [Pain, unspecified] Onset: 09-14-2023 Episodic Results Test Name Value Interpretation Reference Range Facility CBC W/Diff, Automatedon 12-01 Absolute Lymph 1.60 X10 3/uL Normal 0.83-4.51 [facility] Comment on above: Order Comment: Order Date: 12/13/24 Order Info: [id number] - CBCD Order Info: [id number] - SED Performed By: #### L 100.0100, L500.4050, L502.0250, L506.1000, L500.4100, L501.9520, L501.9985, L509.1000, L101.9900 #### [facility] [place], [address] Absolute Neut 3.8 X10 3/uL Normal 2.0-7.7 [facility] Comment on above: Order Comment: Order Date: 12/13/24 Order Info: [id number] - CBCD Order Info: [id number] - SED Performed By: #### L 100.0100, L500.4050, L502.0250, L506.1000, L500.4100, L501.9520, L501.9985, L509.1000, L101.9900 #### [facility] [address] [place], [address] Basophils/100 WBC (Bld) 0.7 % Normal 0-1 [facility] Comment on above: Order Comment: Order Date: 12/13/24 Order Info: 183-11 - CBCD Order Info: [id number] - SED Performed By: #### L 100.0100, L500.4050, L502.0250, L506.1000, L500.4100, L501.9520, L501.9985, L509.1000, L101.9900 #### [facility] [address] [place], [address] Eosinophils/100 WBC (Bld) 3.0 % Normal 0-5 [facility] Comment on above: Order Comment: Order Date: 12/13/24 Order Info: [id number] - CBCD Order Info: [id number] - SED Performed By: #### L 100.0100, L500.4050, L502.0250, L506.1000, L500.4100, L501.9520, L501.9985, L509.1000, L101.9900 #### [facility] [address] [place], [address] Erythrocyte distribution width (RBC) [Ratio] 14.6 % Normal 11.6-14.6 [facility] Comment on above: Order Comment: Order Date: 12/13/24 Order Info: [id number] - CBCD Order Info: [id number] - SED Performed By: #### L 100.0100, L500.4050, L502.0250, L506.1000, L500.4100, L501.9520, L501.9985, L509.1000, L101.9900 #### [facility] [address] [place], [address] Hematocrit (Bld) [Volume fraction] 36.5 % Low 37-47 [facility] Comment on above: Order Comment: Order Date: 12/13/24 Order Info: 018-1 - CBCD Order Info: [id number] - SED Performed By: #### L 100.0100, L500.4050, L502.0250, L506.1000, L500.4100, L501.9520, L501.9985, L509.1000, L101.9900 #### [facility] [address] [place], [place], [id number] Hemoglobin (Bld) [Mass/Vol] 11.6 g/dL Low 12.0-15.0 [facility] Comment on above: Order Comment: Order Date: 12/13/24 Order Info: 0184- - CBCD Order Info: [id number] - SED Performed By: #### L 100.0100, L500.4050, L502.0250, L506.1000, L500.4100, L501.9520, L501.9985, L509.1000, L101.9900 #### [facility] [address] [facility] [place], [place], [phone] [phone] IG% 0.300 Normal 0.0-0.9 [facility] Comment on above: Order Comment: Order Date: 12/13/24 Order Info: [id number] - CBCD Order Info: [id number] - SED Result Comment: IG% - Immature Granulocytes (promyelocytes, myelocytes and metamyelocytes) > 1% indicates that a LEFT SHIFT is Present. Performed By: #### L 100.0100, L500.4050, L502.0250, L506.1000, L500.4100, L501.9520, L501.9985, L509.1000, L101.9900 #### [facility] [address] [place], [address] Lymphocytes/100 WBC (Bld) 26.8 % Normal 19-41 [facility] Comment on above: Order Comment: Order Date: 12/13/24 Order Info: 0184- - CBCD Order Info: [id number] - SED Performed By: #### L 100.0100, L500.4050, L502.0250, L506.1000, L500.4100, L501.9520, L501.9985, L509.1000, L101.9900 #### [facility] [address] [place], [address] MCH (RBC) [Entitic mass] 29.0 pg Normal 27.0-32.0 [facility] Comment on above: Order Comment: Order Date: 12/13/24 Order Info: [id number] - CBCD Order Info: [id number] - SED Performed By: #### L 100.0100, L500.4050, L502.0250, L506.1000, L500.4100, L501.9520, L501.9985, L509.1000, L101.9900 #### [facility] [address] [place], [address] MCHC (RBC) [Mass/Vol] 31.8 g/dL Low 32-36 [facility] Comment on above: Order Comment: Order Date: 12/13/24 Order Info: 0184- - CBCD Order Info: [id number] - SED Performed By: #### L 100.0100, L500.4050, L502.0250, L506.1000, L500.4100, L501.9520, L501.9985, L509.1000, L101.9900 #### [facility] [address] [place], [address] MCV (RBC) [Entitic vol] 91.3 fL Normal 81-99 [facility] Comment on above: Order Comment: Order Date: 12/13/24 Order Info: 018- - CBCD Order Info: [id number] - SED Performed By: #### L 100.0100, L500.4050, L502.0250, L506.1000, L500.4100, L501.9520, L501.9985, L509.1000, L101.9900 #### [facility] [address] [place], [address] Monocytes/100 WBC (Bld) 6.2 % Normal 0-10 [facility] Comment on above: Order Comment: Order Date: 12/13/24 Order Info: 183-11 - CBCD Order Info: [id number] - SED Performed By: #### L 100.0100, L500.4050, L502.0250, L506.1000, L500.4100, L501.9520, L501.9985, L509.1000, L101.9900 #### [facility] [address] [place], [address] Neutrophils/100 WBC (Bld) 63.0 % Normal 47-70 [facility] Comment on above: Order Comment: Order Date: 12/13/24 Order Info: [id number] - CBCD Order Info: [id number] - SED Performed By: #### L 100.0100, L500.4050, L502.0250, L506.1000, L500.4100, L501.9520, L501.9985, L509.1000, L101.9900 #### [facility] [address] [place], [address] Nucleated RBC (Bld) [#/Vol] 0 10*3/uL Normal 0-5 [facility] Comment on above: Order Comment: Order Date: 12/13/24 Order Info: 018- - CBCD Order Info: [id number] - SED Performed By: #### L 100.0100, L500.4050, L502.0250, L506.1000, L500.4100, L501.9520, L501.9985, L509.1000, L101.9900 #### [facility] [address] [place], [address] Platelet mean volume (Bld) [Entitic vol] 11.8 fL Normal 6.2-12.0 [facility] Comment on above: Order Comment: Order Date: 12/13/24 Order Info: [id number] - CBCD Order Info: [id number] - SED Performed By: #### L 100.0100, L500.4050, L502.0250, L506.1000, L500.4100, L501.9520, L501.9985, L509.1000, L101.9900 #### [facility] [address] [place], [address] Platelets (Bld) [#/Vol] 201 10*3/uL Normal 150-450 [facility] Comment on above: Order Comment: Order Date: 12/13/24 Order Info: [id number] - CBCD Order Info: [id number] - SED Performed By: #### L 100.0100, L500.4050, L502.0250, L506.1000, L500.4100, L501.9520, L501.9985, L509.1000, L101.9900 #### [facility] [address] [place], [address] RBC (Bld) [#/Vol] 4.00 10*6/uL Low 4.2-5.4 [facility] Comment on above: Order Comment: Order Date: 12/13/24 Order Info: 0184-1 - CBCD Order Info: 11038-1 - SED Performed By: #### L 100.0100, L500.4050, L502.0250, L506.1000, L500.4100, L501.9520, L501.9985, L509.1000, L101.9900 #### [facility] [address] [place], [place], [id number] RDW SD 47.9 fl High 35.1-43.9 [facility] Comment on above: Order Comment: Order Date: 12/13/24 Order Info: 0184-1 - CBCD Order Info: [id number] - SED Performed By: #### L 100.0100, L500.4050, L502.0250, L506.1000, L500.4100, L501.9520, L501.9985, L509.1000, L101.9900 #### [facility] [address] [place], [place], [id number] [phone] WBC (Bld) [#/Vol] 6.0 10*3/uL Normal 4.4-11.0 [facility] Comment on above: Order Comment: Order Date: 12/13/24 Order Info: [id number] - CBCD Order Info: [id number] - SED Performed By: #### L 100.0100, L500.4050, L502.0250, L506.1000, L500.4100, L501.9520, L501.9985, L509.1000, L101.9900 #### [facility] [address] [place], [place], [id number] Comprehensive Metabolic Prof [facility] 12-19-2024 Albumin [Mass/Vol] 3.1 g/dL Low 3.2-5.0 [facility] Comment on above: Order Comment: Order Date: 12/13/24 Order Info: [id number] - CMP Order Info: [id number] - LIPID Order Info: [id number] - TSH Performed By: #### L 100.0100, L500.4050, L502.0250, L506.1000, L500.4100, L501.9520, L501.9985, L509.1000, L101.9900 #### [facility] [address] [place], [place], [id number] [phone] Albumin/Globulin [Mass ratio] 0.7 {ratio} Low 0.9-2.4 [facility] Comment on above: Order Comment: Order Date: 12/13/24 Order Info: [id number] - CMP Order Info: [id number] - LIPID Order Info: [id number] - TSH Performed By: #### L 100.0100, L500.4050, L502.0250, L506.1000, L500.4100, L501.9520, L501.9985, L509.1000, L101.9900 #### [facility] [address] [place], [address] ALK P 119 U/L High 45-117 [facility] Comment on above: Order Comment: Order Date: 12/13/24 Order Info: 86-1 - CMP Order Info: [id number] - LIPID Order Info: [id number] - TSH Performed By: #### L 100.0100, L500.4050, L502.0250, L506.1000, L500.4100, L501.9520, L501.9985, L509.1000, L101.9900 #### [facility] [address] [place], [address] ALT [Catalytic activity/Vol] 24 U/L Normal 13-56 [facility] Comment on above: Order Comment: Order Date: 12/13/24 Order Info: [id number] - CMP Order Info: [id number] - LIPID Order Info: [id number] - TSH Performed By: #### L 100.0100, L500.4050, L502.0250, L506.1000, L500.4100, L501.9520, L501.9985, L509.1000, L101.9900 #### [facility] [address] [place], [address] AST [Catalytic activity/Vol] 24 U/L Normal 15-37 [facility] Comment on above: Order Comment: Order Date: 12/13/24 Order Info: [id number] - CMP Order Info: [id number] - LIPID Order Info: 3 - TSH Performed By: #### L 100.0100, L500.4050, L502.0250, L506.1000, L500.4100, L501.9520, L501.9985, L509.1000, L101.9900 #### [facility] [address] [place], [place], [id number] Bilirubin [Mass/Vol] 0.70 mg/dL Normal 0.20-1.00 [facility] Comment on above: Order Comment: Order Date: 12/13/24 Order Info: [id number] - CMP Order Info: [id number] - LIPID Order Info: [id number] - TSH Result Comment: For patients on eltrombopag therapy, use of Dimension [place] TBIL is not recommended. Performed By: #### L 100.0100, L500.4050, L502.0250, L506.1000, L500.4100, L501.9520, L501.9985, L509.1000, L101.9900 #### [facility] [address] [place], [place], [id number] BUN/CRE 18.9 RATIO Normal 10-20 [facility] Comment on above: Order Comment: Order Date: 12/13/24 Order Info: 0786- - CMP Order Info: [id number] - LIPID Order Info: 3 - TSH Performed By: #### L 100.0100, L500.4050, L502.0250, L506.1000, L500.4100, L501.9520, L501.9985, L509.1000, L101.9900 #### [facility] [address] [place], [place], [id number] CA,Total 9.1 mg/dL Normal 8.5-10.1 [facility] Comment on above: Order Comment: Order Date: 12/13/24 Order Info: [id number] - CMP Order Info: [id number] - LIPID Order Info: [id number] - TSH Performed By: #### L 100.0100, L500.4050, L502.0250, L506.1000, L500.4100, L501.9520, L501.9985, L509.1000, L101.9900 #### [facility] [address] [place], [address] Chloride [Moles/Vol] 107 mmol/L Normal 98-107 [facility] Comment on above: Order Comment: Order Date: 12/13/24 Order Info: [id number] - CMP Order Info: [id number] - LIPID Order Info: [id number] - TSH Performed By: #### L 100.0100, L500.4050, L502.0250, L506.1000, L500.4100, L501.9520, L501.9985, L509.1000, L101.9900 #### [facility] [address] [place], [place], [id number] CO2 [Moles/Vol] 28.0 mmol/L Normal 21.0-32.0 [facility] Comment on above: Order Comment: Order Date: 12/13/24 Order Info: [id number] - CMP Order Info: [id number] - LIPID Order Info: 6-3 - TSH Performed By: #### L 100.0100, L500.4050, L502.0250, L506.1000, L500.4100, L501.9520, L501.9985, L509.1000, L101.9900 #### [facility] [address] [place], [place], [id number] Creatinine [Mass/Vol] 0.85 mg/dL Normal 0.55-1.02 [facility] Comment on above: Order Comment: Order Date: 12/13/24 Order Info: [id number] - CMP Order Info: [id number] - LIPID Order Info: [id number] - TSH Result Comment: The validity of the calculated GFR GFRAA in patients over 70 years has not been determined. Clinical correlation is essential. Performed By: #### L 100.0100, L500.4050, L502.0250, L506.1000, L500.4100, L501.9520, L501.9985, L509.1000, L101.9900 #### [facility] [address] [place], [place], [id number] EST GFR - AA 85 mL/min Normal >60 [facility] Comment on above: Order Comment: Order Date: 12/13/24 Order Info: [id number] - CMP Order Info: [id number] - LIPID Order Info: [id number] - TSH Result Comment: Afri can [place] GFR Calc Performed By: #### L 100.0100, L500.4050, L502.0250, L506.1000, L500.4100, L501.9520, L501.9985, L509.1000, L101.9900 #### [facility] [address] [place], [address] GAP 2 Low 5-15 [facility] Comment on above: Order Comment: Order Date: 12/13/24 Order Info: 07- - CMP Order Info: [id number] - LIPID Order Info: 3 - TSH Performed By: #### L 100.0100, L500.4050, L502.0250, L506.1000, L500.4100, L501.9520, L501.9985, L509.1000, L101.9900 #### [facility] [address] [place], [place], [id number] GFR/1.73 sq M.predicted among non-blacks MDRD (S/P/Bld) [Vol rate/Area] 71 mL/min/{1.73_m2} Normal >60 [facility] Comment on above: Order Comment: Order Date: 12/13/24 Order Info: [id number] - CMP Order Info: [id number] - LIPID Order Info: [id number] - TSH Result Comment: Non- GFR Calc Performed By: #### L 100.0100, L500.4050, L502.0250, L506.1000, L500.4100, L501.9520, L501.9985, L509.1000, L101.9900 #### [facility] [address] [place], [address] Globulin (S) [Mass/Vol] 4.6 g/dL High 2.2-4.2 [facility] Comment on above: Order Comment: Order Date: 12/13/24 Order Info: [id number] - CMP Order Info: [id number] - LIPID Order Info: [id number] - TSH Performed By: #### L 100.0100, L500.4050, L502.0250, L506.1000, L500.4100, L501.9520, L501.9985, L509.1000, L101.9900 #### [facility] [address] [place], [address] Glucose [Mass/Vol] 96 mg/dL Normal 74-106 [facility] Comment on above: Order Comment: Order Date: 12/13/24 Order Info: 0786- - CMP Order Info: [id number] - LIPID Order Info: [id number] - TSH Performed By: #### L 100.0100, L500.4050, L502.0250, L506.1000, L500.4100, L501.9520, L501.9985, L509.1000, L101.9900 #### [facility] [address] [place], [address] Potassium [Moles/Vol] 4.3 mmol/L Normal 3.5-5.1 [facility] Comment on above: Order Comment: Order Date: 12/13/24 Order Info: [id number] - CMP Order Info: [id number] - LIPID Order Info: [id number] - TSH Performed By: #### L 100.0100, L500.4050, L502.0250, L506.1000, L500.4100, L501.9520, L501.9985, L509.1000, L101.9900 #### [facility] [address] [place], [address] Sodium [Moles/Vol] 137 mmol/L Normal 136-145 [facility] Comment on above: Order Comment: Order Date: 12/13/24 Order Info: [id number] - CMP Order Info: [id number] - LIPID Order Info: [id number] - TSH Performed By: #### L 100.0100, L500.4050, L502.0250, L506.1000, L500.4100, L501.9520, L501.9985, L509.1000, L101.9900 #### [facility] [address] [place], [place], [address] T PROT 7.7 g/dL Normal 6.4-8.2 [facility] Comment on above: Order Comment: Order Date: 12/13/24 Order Info: 0786- - CMP Order Info: [id number] - LIPID Order Info: [id number] - TSH Performed By: #### L 100.0100, L500.4050, L502.0250, L506.1000, L500.4100, L501.9520, L501.9985, L509.1000, L101.9900 #### [facility] [address] [place], [address] Urea nitrogen [Mass/Vol] 16 mg/dL Normal 7-18 [facility] Comment on above: Order Comment: Order Date: 12/13/24 Order Info: [id number] - CMP Order Info: [id number] - LIPID Order Info: [id number] - TSH Performed By: #### L 100.0100, L500.4050, L502.0250, L506.1000, L500.4100, L501.9520, L501.9985, L509.1000, L101.9900 #### [facility] [address] [place], [place], [id number] Erythrocyte Sed Rateon 12-19 SED RATE 37 mm/hr High 0-30 [facility] Comment on above: Order Comment: Order Date: 12/13/24 Order Info: [id number] - CBCD Order Info: [id number] - SED Performed By: #### L 100.0100, L500.4050, L502.0250, L506.1000, L500.4100, L501.9520, L501.9985, L509.1000, L101.9900 #### [facility] [address] [place], [place], [address] (795) Hemoglobin A1con 12-19-2024 HbA1c (Bld) [Mass fraction] 5.9 % High 3.8-5.6 [facility] Comment on above: Order Comment: Order Date: 12/13/24 Order Info: [id number] - A1C Result Comment: Norm al < 5.7 % Prediabetic 5.7 - 6.4 % Diabetic >or= 6.5 % Please note range changes. Performed By: #### L 100.0100, L500.4050, L502.0250, L506.1000, L500.4100, L501.9520, L501.9985, L509.1000, L101.9900 #### [facility] [address] [place], [address] Lipid Profileon 12-19-2024 Cholesterol [Mass/Vol] 150 mg/dL Normal 200 [facility] Comment on above: Order Comment: Order Date: 12/13/24 Order Info: [id number] - CMP Order Info: [id number] - LIPID Order Info: [id number] - TSH Result Comment: <200 mg/dL Desirable 200-240 mg/dL Borderline >240 mg/dL High Risk Performed By: #### L 100.0100, L500.4050, L502.0250, L506.1000, L500.4100, L501.9520, L501.9985, L509.1000, L101.9900 #### [facility] [address] [place], [address] Cholesterol in HDL [Mass/Vol] 73 mg/dL Normal [facility] Comment on above: Order Comment: Order Date: 12/13/24 Order Info: [id number] - CMP Order Info: [id number] - LIPID Order Info: [id number] - TSH Result Comment: The drugs N-Acetylcysteine and Metamizole may falsely depress this assay. Reference Range HDL <40 mg/dL Low HDL Cholesterol HDL >or= 60 mg/dL High HDL Cholesterol Performed By: #### L 100.0100, L500.4050, L502.0250, L506.1000, L500.4100, L501.9520, L501.9985, L509.1000, L101.9900 #### [facility] [address] [place], [address] Cholesterol in LDL [Mass/Vol] 62 mg/dL Normal 0-130 [facility] Comment on above: Order Comment: Order Date: 12/13/24 Order Info: [id number]- - CMP Order Info: [id number] - LIPID Order Info: [id number] - TSH Performed By: #### L 100.0100, L500.4050, L502.0250, L506.1000, L500.4100, L501.9520, L501.9985, L509.1000, L101.9900 #### [facility] [address] [place], [address] Cholesterol in VLDL [Mass/Vol] 15 mg/dL Normal 5-40 [facility] Comment on above: Order Comment: Order Date: 12/13/24 Order Info: [id number]- - CMP Order Info: [id number] - LIPID Order Info: [id number] - TSH Performed By: #### L 100.0100, L500.4050, L502.0250, L506.1000, L500.4100, L501.9520, L501.9985, L509.1000, L101.9900 #### [facility] [address] [place], [address] Triglyceride [Mass/Vol] 75 mg/dL Normal [facility] Comment on above: Order Comment: Order Date: 12/13/24 Order Info: [id number]- - CMP Order Info: [id number] - LIPID Order Info: [id number] - TSH Result Comment: The drugs N-Acetylcysteine and Metamizole may falsely depress this assay. Serum Triglycerides Reference Interval Normal <150 mg/dL Borderline high 150 - 199 mg/dL High 200 - 499 mg/dL Very High > or = 500 mg/dL Performed By: #### L 100.0100, L500.4050, L502.0250, L506.1000, L500.4100, L501.9520, L501.9985, L509.1000, L101.9900 #### [facility] [address] [place], [address] Microalb:Creat Ratio,Random URon 12-19-2024 Creatinine [Mass/Vol] 71.60 mg/dL Normal NO RAN GE EST. [facility] Comment on above: Order Comment: Order Date: 12/13/24 Order Info: [id number] - MIACRE Performed By: #### L 100.0100, L500.4050, L502.0250, L506.1000, L500.4100, L501.9520, L501.9985, L509.1000, L101.9900 #### [facility] [address] [place], [address] MALB:CRE 27.8 mg/g CRE Normal <30 mg/g CRE [facility] Comment on above: Order Comment: Order Date: 12/13/24 Order Info: [id number] - MIACRE Performed By: #### L 100.0100, L500.4050, L502.0250, L506.1000, L500.4100, L501.9520, L501.9985, L509.1000, L101.9900 #### [facility] [address] [place], [address] MICROALBUMIN,UR 19.9 mg/L Normal NO RANGE EST. [facility] Comment on above: Order Comment: Order Date: 12/13/24 Order Info: [id number] - MIACRE Performed By: #### L 100.0100, L500.4050, L502.0250, L506.1000, L500.4100, L501.9520, L501.9985, L509.1000, L101.9900 #### [facility] [address] [place], [address] PTHINon 12-19-2024 PTH 54.7 pg/mL Normal 18.4-80.1 [facility] Comment on above: Order Comment: Order Date: 12/13/24 Order Info: [id number] - PTHIN Performed By: #### L 100.0100, L500.4050, L502.0250, L506.1000, L500.4100, L501.9520, L501.9985, L509.1000, L101.9900 #### [facility] [address] [place], [address] Thyroid Stim Hormone (TSH)on 12-19-2024 TSH 2.030 uIU/mL Normal 0.358-3.740 [facility] Comment on above: Order Comment: Order Date: 12/13/24 Order Info: [id number] - CMP Order Info: [id number] - LIPID Order Info: [id number] - TSH Performed By: #### L 100.0100, L500.4050, L502.0250, L506.1000, L500.4100, L501.9520, L501.9985, L509.1000, L101.9900 #### [facility] [address] [place], [address] Vitamin D,25 Hydroxyon 12-19 Vitamin D 25-OH 42.7 ng/mL Normal [facility] Comment on above: Order Comment: Order Date: 12/13/24 Order Info: [id number] - VITD25 Result Comment: Bethany min D 25(OH) Status Range Deficiency <20 ng/mL (50nmol/L) Insufficiency 20 - 30 ng/mL (50 - 75 nmol/L) Sufficiency 30 - 100 ng/mL (75 - 250 nmol/L) Toxicity >100 ng/mL (>250 nmol/L) Performed By: #### L 100.0100, L500.4050, L502.0250, L506.1000, L500.4100, L501.9520, L501.9985, L509.1000, L101.9900 #### [facility] [address] [place], [address] Venous Duplex US, Unilateral on 05-27-2024 Venous Duplex US, Unilateral [facility] [address] [place] [address] Venous Duplex US, Unilateral 05/27/24 1104 MR#: [id number] Acct: [id number] Name: VICKIE GONZALEZ Rep #: [id number] : 1955 68 From: Cristhian Coleman MD Attending Dr: Dr. Kirill Newell MD Status: REG CL I Ordering Dr: Kirill Newell MD Date: 05/27/24 Location: [facility] Sex: F C Admitted: Reason For Study: Left leg pain RIGHT LEFT CFV is compressible, spontaneous, phasic, GSV is normal. competent and demonstrates normal CFV is compressible, spontaneous, phasic, augmentation. competent, and demonstrates normal Procedure augmentation. This is a venous duplex using B-mode, color FV is compressible, spontaneous, phasic, flow and spectral Doppler. competent and demonstrates normal Exam performed in department. augmentation. A preliminary report was called and/or faxed POP V is compressible, spontaneous, phasic, to Dr. Newell. competent and demonstrates normal augmentation. T/P Trunk is compressible. PTV is compressible. LT PerV is compressible. VL/Venous Duplex US, Unilateral Interpretation Summary There is no evidence of left lower extremity deep vein thrombosis. Left great saphenous vein appears patent and compressible segmentally. Normal flow patterns right common femoral vein Ordering Physician: Kirill Newell Referring Physician: Kirill Newell Performed By: Rosa Martinez RVT 05/27/24 1227 Date Cristhian Coleman MD CC: Dr. Kirill Newell MD Date Dictated: 05/27/24 1104 Date Transcribed: 05/27/24 1227 Corporate Security Officer: Signed Normal [facility] XR KNEE RIGHT 3 VIEWS (SPECI FY VIEWS IN COMMENTS)on 03-25-2024 XR KNEE RIGHT 3 VIEWS (SPECIFY VIEWS IN COMMENTS) EXAMINATION: XR KNEE RIGHT 3 VIEWS (SPECIFY VIEWS IN COMMENTS) HISTORY: ORDERING SYSTEM PROVIDED HISTORY: Follow-up exam, TECHNOLOGIST PROVIDED HISTORY: Illness/Other Reason for exam: p/o right knee replacement 01/26/24 Cancer History: / Surgery, RadiationHistory: / Encounter Type: Subsequent/Follow-up Additional signs and symptoms: none ORDERING SYSTEM PROVIDED DIAGNOSIS CODES: Z09 Follow-up exam COMPARISON: 01/26/2024. FINDINGS: Three views of the right knee. Postoperative changes of total knee replacement. Hardware is well seated with appropriate alignment. No periprosthetic fracture or hardware loosening. No significant joint effusion. Soft tissues are within normal limits. IMPRESSION: Intact knee replacement. /[facility] Workstation ID: [id number] Dictated by: ROBE COLIN on ThuMar 25, 2024 4:34:08 PM EDT Transcribed by: JAY GUADARRAMA on ThuMar 25, 2024 4:53:17 PM EDT Finalized by: ROBE COLIN on ThuMar 25, 2024 5:26:19 PM EDT Normal [facility] Comment on above: Order Comment: Injur y/Trauma or Illness?:Illness/Other How long have you had these symptoms (acute/chronic)?:Unknown Reason for exam?:p/o right knee replacement 01/26/24 History of cancer?:/ / Surgeries, chemotherapy, or radiation?:/ Type of Exam?:Subsequent/Follow-up Additional signs and symptoms?:none XR KNEE RIGHT 2 VIEWS (STAND KATRIN)on 01-26-2024 XR KNEE RIGHT 2 VIEWS (STANDARD) EXAMINATION: XR KNEE RIGHT 2 VIEWS (STANDARD) 01/26/2024 9:13 am HISTORY: ORDERING SYSTEM PROVIDED HISTORY: s/p Rt. TKA in OR, TECHNOLOGIST PROVIDED HISTORY: Illness/Other Reason for exam: POST-OP RIGHT KNEE REPLACEMENT Cancer History: / Surgery, RadiationHistory: / Encounter Type: Initial Additional signs and symptoms: . ORDERING SYSTEM PROVIDED DIAGNOSIS CODES: M17.11 Osteoarthritis of right knee, unspecified osteoarthritis type IMPRESSION: FINDINGS/ TKA without complication. YINA/trn Workstation ID: [id number] Dictated by: WAYNE ALLEN on ThuJan 26, 2024 2:10:55 PM EST Transcribed by: JAY GUADARRAMA on ThuJan 26, 2024 2:41:49 PM EST Finalized by: WAYNE ALLEN on ThuJan 26, 2024 4:57:48 PM EST Normal [facility] Comment on above: Order Comment: Injur y/Trauma or Illness?:Illness/Other How long have you had these symptoms (acute/chronic)?:Acute Reason for exam?:POST-OP RIGHT KNEE REPLACEMENT History of cancer?:/ / Surgeries, chemotherapy, or radiation?:/ Type of Exam?:Initial Additional signs and symptoms?:. CT KNEE RIGHT WITHOUT CONTRA STon 01-07-2024 CT KNEE RIGHT WITHOUT CONTRAST EXAMINATION: CT KNEE RIGHT WITHOUT CONTRAST HISTORY: ORDERING SYSTEM PROVIDED HISTORY: pre operative for upcoming Rt TKR scheduled for 12/21/23, TECHNOLOGIST PROVIDED HISTORY: Illness/Other Reason for exam: pre operative for upcoming Rt TKR Encounter Type: Initial Additional signs and symptoms: . ORDERING SYSTEM PROVIDED DIAGNOSIS CODES: M17.11 Osteoarthritis of right knee, unspecified osteoarthritis type COMPARISON: None TECHNIQUE: Axial CT imaging of the right hip, knee and ankle without contrast. Manav protocol. Dose reduction techniques were achieved by using automated exposure control and/or adjustment of mA and/or kV according to patient size and/or use of iterative reconstruction technique. FINDINGS: KNEE: No acute osseous abnormality. Severe medial knee compartment joint space narrowing with subchondral sclerosis, subchondral cystic changes and large marginal osteophytes. Severe lateral knee compartment and patellofemoral compartment joint space narrowing with large marginal osteophytes. Small joint effusion. Normal surrounding muscle bulk. HIP: No acute osseous abnormality. No CT evidence of avascular necrosis of the femoral head. Normal alignment. No significant hip osteoarthritis. No significant joint effusion. ANKLE: No acute osseous abnormality. Normal joint alignment. No significant tibiotalar osteoarthritis. Moderate degenerative changes of midfoot region. Soft tissues appear unremarkable. IMPRESSION: Severe right knee tricompartmental osteoarthritis. [facility] Workstation ID: [id number] Dictated by: ROBE COLIN on ThuJan 07, 2024 2:25:02 PM EST Transcribed by: LUCY NEWELL on ThuJan 07, 2024 2:25:02 PM EST Finalized by: ROBE COLIN on ThuJan 07, 2024 10:52:02 PM EST Normal [facility] Comment on above: Order Comment: Nicolas ayers only schedule at [facility]. Do not schedule Ct scan appointment with patient. Ordering Doctor's office will call to schedule Ct scan appointment. Injury/Trauma or Illness?:Illness/Other How long have you had these symptoms (acute/chronic)?:Acute Reason for exam?:pre operative for upcoming Rt TKR Type of Exam?:Initial Additional signs and symptoms?:. Basophil percentageOrdered B y: Kirill Newell on 11-12-2023 Bilirubin [Mass/Vol] 0.70 mg/dL 0.20-1.00 [facility] Comment on above: For patients on eltr ombopag therapy, use of Dimension [place] TBIL is not recommended. Chloride [Moles/Vol] 107 mmol/L 98-107 [facility] Glucose [Mass/Vol] 97 mg/dL 74-106 [facility] Potassium [Moles/Vol] 4.3 mmol/L 3.5-5.1 [facility] Protein [Mass/Vol] 8.7 g/dL 6.4-8.2 [facility] Sodium [Moles/Vol] 140 mmol/L 136-145 [facility] WBC (Bld) [#/Vol] 7.7 10*3/uL 4.4-11.0 [facility] Blood erythrocytes count (nu mber/volume)Ordered By: Kirill Newell on 11-12-2023 RBC (Bld) [#/Vol] 4.16 10*6/uL 4.2-5.4 [facility] Blood hemoglobin measurement (mass/volume)Ordered By: Kirill Newell on 11-12-2023 Hemoglobin (Bld) [Mass/Vol] 11.5 g/dL 12.0-15.0 [facility] Blood platelet mean volumeOr dered By: Kirill Newell on 11-12-2023 Platelet mean volume (Bld) [Entitic vol] 11.2 fL 6.2-12.0 [facility] Determination of erythrocyte mean corpuscular volume (MCV)Ordered By: Kirill Newell on 11-12-2023 MCV (RBC) [Entitic vol] 89.2 fL 81-99 [facility] Erythrocyte sedimentation ra teOrdered By: Kirill Newell on 11-12-2023 ESR (Bld) [Velocity] 48 mm/h 0-30 [facility] Hematocrit Auto (Bld) [Volum e fraction]Ordered By: Kirill Newell on 11-12-2023 Hematocrit (Bld) [Volume fraction] 37.1 % 37-47 [facility] - Chemistry and C hemistry - challengeOrdered By: Kirill Newell on 11-12-2023 ALP [Catalytic activity/Vol] 110 U/L 45-117 [facility] ALT [Catalytic activity/Vol] 21 U/L 13-56 [facility] CO2 [Moles/Vol] 28.0 mmol/L 21.0-32.0 [facility] Globulin (S) [Mass/Vol] 5.5 g/dL 2.2-4.2 [facility] Urea nitrogen/Creatinine [Mass ratio] 19.0 mg/mg 10-20 [facility] - Hematology and Cell countsOrdered By: Kirill Newell on 11-12-2023 Erythrocyte distribution width (RBC) [Entitic vol] 51.8 fL 35.1-43.9 [facility] Erythrocyte distribution width (RBC) [Ratio] 15.9 % 11.6-14.6 [facility] MCH (RBC) [Entitic mass] 27.6 pg 27.0-32.0 [facility] MCHC Auto (RBC) [Mass/Vol]Or dered By: Kirill Newell on 11-12-2023 MCHC (RBC) [Mass/Vol] 31.0 g/dL 32-36 [facility] No Panel InformationOrdered By: Kirill Newell on 11-12-2023 Addendum Document Comment . [facility] Comment on above: The SPE pattern demo nstrates elevation of regionscontaining acute phase proteins suggesting anacute/subacute inflammatory response. Some conditions inwhich this pattern has been observed include: bacterial,viral or parasitic infection; mechanical, physical orchemical trauma; and cardiac failure. The gamma globulinregion is unremarkable and evidence of monoclonal proteinis not apparent.Performed at: [employer] [employer] [facility] [address] [id number] Director: Ha Gutierrez PhD, Phone: [phone] Qnlut-6-Rtwhhnqmn 0.4 g/dL 0.0-0.4 [facility] Sdppd-0-Zlvufpcme 1.2 g/dL 0.4-1.0 [facility] Anti-Nuclear Antibody Screen Negative Negative [facility] Comment on above: Performed at: [facility] [address] [id number] Director: Ha Gutierrez PhD, Phone: [phone] Estimated GFR (MDRD) Amer 86 mL/min >60 [facility] Comment on above: GFR Calc Estimated GFR (MDRD) Non-Af Amer 71 mL/min >60 [facility] Comment on above: Non- GFR Calc Gamma Globulins 1.8 g/dL 0.4-1.8 [facility] Parathyroid Hormone (Intact) 69.9 pg/mL 18.4-80.1 [facility] Urine Microalbumin/Creatinine Ratio 70.0 mg/g CRE <30 [facility] Vitamin D 25-Hydroxy 37.3 ng/mL [facility] Comment on above: Vitamin D 25(OH) Sta tus Range Deficiency <20 ng/mL (50nmol/L) Insufficiency 20 - 30 ng/mL (50 - 75 nmol/L) Sufficiency 30 - 100 ng/mL (75 - 250 nmol/L) Toxicity >100 ng/mL (>250 nmol/L) Platelets bldOrdered By: Theresa Newell on 11-12-2023 Platelets (Bld) [#/Vol] 272 10*3/uL 150-450 [facility] Protein Fractions Elph [Inte rp]Ordered By: Kirill Newell on 11-12-2023 Protein Fractions [Interp] Comment . [facility] Comment on above: Protein electrophore sis scan will follow via computer,mail, or discharge rn delivery. Serum albumin to globulin ra allen by protein electrophoresisOrdered By: Kirill Newell on 11-12-2023 Albumin/Globulin Elph [Mass ratio] 0.7 0.7-1.7 [facility] Serum globulin measurement ( mass/volume)Ordered By: Kirill Newell on 11-12-2023 Globulin (S) [Mass/Vol] 4.6 g/dL 2.2-3.9 [facility] Serum or plasma C reactive p rotein measurement (mass/volume)Ordered By: Kirill Newell on 11-12-2023 CRP [Mass/Vol] 15.50 mg/L 0.0-3.0 [facility] Comment on above: C-Reactive Protein ( CRP) provides useful information for thediagnosis, therapy and monitoring of inflammatory processesand associated diseases. For the evaluation of Relative Riskfor Cardiovascular Disease, a High Sensitivity CRP (HSCRP)should be ordered. Serum or plasma albumin erasmo urement (mass/volume)Ordered By: Kirill Newell on 11-12-2023 Albumin [Mass/Vol] 3.2 g/dL 2.9-4.4 [facility] Serum or plasma albumin/glob ulin mass ratioOrdered By: Kirill Newell 11-12-2023 Albumin/Globulin [Mass ratio] 0.6 {ratio} 0.9-2.4 [facility] Serum or plasma beta globuli n measurement by electrophoresis (mass/volume)Ordered By: Kirill Newell 11-12-2023 Beta globulin Elph [Mass/Vol] 1.2 g/dL 0.7-1.3 [facility] Serum or plasma calcium erasmo urement (mass/volume)Ordered By: Kirill Newell 11-12-2023 Calcium [Mass/Vol] 9.1 mg/dL 8.5-10.1 [facility] Serum or plasma creatinine m easurement (mass/volume)Ordered By: Kirill Newell on 11-12-2023 Creatinine [Mass/Vol] 0.84 mg/dL 0.55-1.02 [facility] Comment on above: The validity of the calculated GFR & GFRAA in patients over 70 years has not been determined. Clinical correlation is essential. Serum or plasma protein mono clonal measurement by electrophoresis (mass/volume)Ordered By: Kirill Newell on 11-12-2023 Protein.monoclonal Elph [Mass/Vol] Not Observed g/dL Not Observed [facility] Serum or plasma urea nitroge n measurement (mass/volume)Ordered By: Kirill Newell on 11-12-2023 Urea nitrogen [Mass/Vol] 16 mg/dL 7-18 [facility] Serum rheumatoid factor dete ctionOrdered By: Kirill Newell on 11-12-2023 Rheumatoid factor Ql (S) < 10.0 IU/mL <15 [facility] Thin prep Papanicolaou smear with manual screeningOrdered By: Kirill Newell on 11-12-2023 Thin prep Papanicolaou smear with manual screening 26 U/L 15-37 [facility] Thin prep Papanicolaou smear with manual screening 5 5-15 [facility] Thin prep Papanicolaou smear with manual screening 156.0 mg/L NO RANGE EST. [facility] Total protein bloodOrdered B y: Kirill Newell on 11-12-2023 Protein [Mass/Vol] 7.8 g/dL 6.0-8.5 [facility] Urine creatinine measurement (mass/volume)Ordered By: Kirill Newell on 11-12-2023 Creatinine (U) [Mass/Vol] 223.00 mg/dL NO RANGE EST. [facility] Whole blood hemoglobin A1c/t otal hemoglobin ratio (mass fraction)Ordered By: Kirill Newell on 11-12-2023 HbA1c (Bld) [Mass fraction] 5.7 % 3.8-5.6 [facility] Comment on above: Normal < 5.7 % Predi abetic 5.7 - 6.4 % Diabetic >or= 6.5 % Please note range changes. XR KNEE RIGHT 4+ VIEWS (SPEC LAZARUS VIEWS IN COMMENTS)on 09-14-2023 XR KNEE RIGHT 4+ VIEWS (SPECIFY VIEWS IN COMMENTS) EXAMINATION: XR KNEE RIGHT 4+ VIEWS (SPECIFY VIEWS IN COMMENTS) 09/14/2023 12:59 pm HISTORY: ORDERING SYSTEM PROVIDED HISTORY: Pain, TECHNOLOGIST PROVIDED HISTORY: Illness/Other Reason for exam: pain Cancer History: / Surgery, RadiationHistory: / Encounter Type: Initial Additional signs and symptoms: na ORDERING SYSTEM PROVIDED DIAGNOSIS CODES: R52 Pain COMPARISON: Left knee series May 22, 2016. Bilateral knee series April 16, 2015. FINDINGS: Standing AP and PA views of both knees with lateral view and patellar view of the right knee. The right knee shows severe lpom-ym-bpif narrowing with endplate sclerosis and endplate osteophytes and about 7 mm of lateral subluxation of the tibial plateau in relationship to the distal femur associated with varus angulation of the knee. There are osteophytes along the lateral joint compartment and beqkgjxs-bt-bnnmvg arthritic changes of the patellofemoral joint. There is likely a small suprapatellar joint effusion. No acute fracture is identified. Total left knee arthroplasty is in place. No radiographic signs of hardware complications. IMPRESSION: 1. Tricompartmental degenerative changes of the right knee, including severe gqso-dr-akrn osteoarthritis of the medial joint compartment with varus angulation. 2. No acute osseous abnormalities identified. [employer] Workstation ID: [id number] Dictated by: YOSELYN EPTE on ThuSep 15, 2023 10:04:15 AM EDT Transcribed by: GERALD DYER on ThuSep 15, 2023 10:28:27 AM EDT Finalized by: YOSELYN PETE on ThuSep 15, 2023 2:48:38 PM EDT Normal [facility] Comment on above: Order Comment: Injur y/Trauma or Illness?:Illness/Other How long have you had these symptoms (acute/chronic)?:Chronic Reason for exam?:pain History of cancer?:/ / Surgeries, chemotherapy, or radiation?:/ Type of Exam?:Initial Additional signs and symptoms?:na ECG 12 Leadon 01-21-2023 Atrial Rate [facility] [place] P-R Interval [facility] Q-T Interval [facility] Q-T Interval (corrected) [facility] QRS Duration [facility] QTC Calculation ([facility]) [facility] [place] [place] [facility] ECHOCARDIOGRAM COMPLETEon ECHOCARDIOGRAM COMPLETE Patient Info Name: VICKIE GONZALEZ Age: 67 years : 1955 Gender: Female Ht: 167 cm Wt: 105 kg BSA: 2.26 m2 HR: 1 bpm BP: 157 / 89 mmHg Technical Quality: Fair Exam Date: 01/21/2023 9:06 AM 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 Left ventricular [...] of 1.7 cm/m2. Left Ventricular Outflow Tract - Name Value Normal - LVOT 2D - LVOT Diameter 2.0 cm LVOT Doppler - LVOT Peak Velocity 0.8 m/s LVOT Mean Gradient 1 mmHg LVOT VTI 17 cm LVOT VTI/AV VTI Ratio 0.4 LVOT Stroke Volume 54 ml LVOT Stroke Index 23.93 ml/m2 Pulmonic Valve - Name Value Normal - PV Regurgitation Doppler - VT Peak End Diastolic Velocity 128 cm/s Mitral Valve - Name Value Normal - MV Doppler - MV Peak Velocity 1. (more content not included)... [facility] ECG 12 LeadOrdered By: Virginie Guerra on 02-19-2022 Atrial Rate [facility] [place] [facility] P-R Interval [facility] Q-T Interval [facility] Q-T Interval (corrected) [facility] QRS Duration [facility] QTC Calculation ([facility]) [facility] [place] [place] [facility] Ventricular Rate [facility] Basic metabolic 2000 panelon 01-22-2022 Anion gap [Moles/Vol] 15 mmol/L 10 - 2 0 mmol/L [facility] Calcium [Mass/Vol] 8.8 mg/dL 8.4 - 10. 2 mg/dL [facility] Chloride [Moles/Vol] 104 mmol/L 98 - 10 8 mmol/L [facility] Creatinine [Mass/Vol] 0.75 mg/dL 0.60 - 1.20 [facility] GFR/1.73 sq M.predicted CKD-EPI (S/P/Bld) [Vol rate/Area] 83 >=60 mL/min/1.73 m2 [facility] Glucose [Mass/Vol] 90 mg/dL 65 - 99 mg/dL [facility] HCO3 [Moles/Vol] 24 mmol/L 21 - 32 mmol/L [facility] Interpretation and review of laboratory results Normal [facility] Potassium [Moles/Vol] 4.3 mmol/L 3.5 - 5.1 mmol/L [facility] Sodium [Moles/Vol] 139 mmol/L 135 - 145 mmol/L [facility] Urea nitrogen [Mass/Vol] 10 mg/dL 8 - 25 mg/d L [facility] Urea nitrogen/Creatinine [Mass ratio] 13.3 mg/mg [facility] The eGFR should be u sed for monitoring renal function only and not for medication dosing. [facility] CBC panel Auto (Bld)on 01-22 Erythrocyte distribution width (RBC) [Entitic vol] 15.9 % High 11.6 - 14.8 % [facility] Hematocrit (Bld) [Volume fraction] 33.2 % Low 36.0 - 46.0 % [facility] Hemoglobin (Bld) [Mass/Vol] 10.4 g/dL Low 12.0 - 16.0 g/dL [facility] Interpretation and review of laboratory results Abnormal [facility] MCH (RBC) [Entitic mass] 27.2 pg 26. 0 - 34.0 pg [facility] MCHC (RBC) [Mass/Vol] 31.3 g/dL 31.0 - 37.0 g/dL [facility] MCV (RBC) [Entitic vol] 86.9 fL 80.0 - 100.0 fL [facility] Nucleated RBC (Bld) [#/Vol] 0.00 10*3/uL [facility] Nucleated RBC/100 WBC (Bld) [Ratio] 0.0 % [facility] Platelet mean volume (Bld) [Entitic vol] 11.9 fL 9.4 - 12.4 fL [facility] Platelets (Bld) [#/Vol] 176 10*3/uL [facility] RBC (Bld) [#/Vol] 3.82 10*6/uL Low [facility] WBC (Bld) [#/Vol] 5.53 10*3/uL [facility] ECG 12 Leadon 01-22-2022 Atrial Rate 65 BPM [facility] [place] 64 degrees [facility] P-R Interval 300 ms [facility] Q-T Interval 444 ms [facility] QRS Duration 94 ms [facility] QTC Calculation (Bezet) 461 ms [facility] [place] 10 degrees [facility] T [place] 90 degrees [facility] Ventricular Rate 65 BPM [facility] Sinus rhythm with 1s t degree AV block Otherwise normal ECG Confirmed by SONA SEGURA MD ([id number]) on 01/22/2022 9:10:34 AM MUSE [facility] Atrial Rate 64 BPM [facility] [place] 48 degrees [facility] P-R Interval 272 ms [facility] Q-T Interval 438 ms [facility] QRS Duration 96 ms [facility] QTC Calculation (Bezet) 451 ms [facility] [place] 34 degrees [facility] [place] 89 degrees [facility] Ventricular Rate 64 BPM [facility] Sinus rhythm with 1s t degree AV block Nonspecific T wave abnormality Abnormal ECG When compared with ECG of 21-JAN-2022 12:50, (unconfirmed) No significant change was found Confirmed by SONA SEGURA MD ([id number]) on 01/22/2022 9:08:00 AM MUSE [facility] APTTon 01-21-2022 aPTT Coag (Bld) [Time] 29 s [facility] Basic metabolic 2000 panelon 01-21-2022 Anion gap [Moles/Vol] 16 mmol/L 10 - 2 0 mmol/L [facility] Calcium [Mass/Vol] 8.5 mg/dL 8.4 - 10. 2 mg/dL [facility] Chloride [Moles/Vol] 106 mmol/L 98 - 10 8 mmol/L [facility] Creatinine [Mass/Vol] 0.67 mg/dL 0.60 - 1.20 [facility] sq M.predicted CKD-EPI (S/P/Bld) [Vol rate/Area] 91 >=60 mL/min/1.73 m2 [facility] Glucose [Mass/Vol] 110 mg/dL High 65 - 99 mg/dL [facility] HCO3 [Moles/Vol] 21 mmol/L 21 - 32 mmol/L [facility] Interpretation and review of laboratory results Abnormal [facility] Potassium [Moles/Vol] 3.9 mmol/L 3.5 - 5.1 mmol/L [facility] Sodium [Moles/Vol] 139 mmol/L 135 - 145 mmol/L [facility] Urea nitrogen [Mass/Vol] 14 mg/dL 8 - 25 mg/d L [facility] Urea nitrogen/Creatinine [Mass ratio] 20.9 mg/mg High [facility] The eGFR should be u sed for monitoring renal function only and not for medication dosing. [facility] Basic metabolic 2000 panelOr dered By: Marcial Thomas on 01-21-2022 Anion gap [Moles/Vol] 17 mmol/L 10 - 2 0 mmol/L [facility] Calcium [Mass/Vol] 8.9 mg/dL 8.4 - 10. 2 mg/dL [facility] Chloride [Moles/Vol] 106 mmol/L 98 - 10 8 mmol/L [facility] Creatinine [Mass/Vol] 0.77 mg/dL 0.60 - 1.20 Oh [facility] GFR/1.73 sq M.predicted CKD-EPI (S/P/Bld) [Vol rate/Area] 80 >=60 mL/min/1.73 m2 [facility] Glucose [Mass/Vol] 94 mg/dL 65 - 99 mg/dL [facility] HCO3 [Moles/Vol] 23 mmol/L 21 - 32 mmol/L [facility] Interpretation and review of laboratory results Normal [facility] Potassium [Moles/Vol] 4.2 mmol/L 3.5 - 5.1 mmol/L [facility] Comment on above: Slightly Hemolyzed Sodium [Moles/Vol] 142 mmol/L 135 - 145 mmol/L [facility] Urea nitrogen [Mass/Vol] 14 mg/dL 8 - 25 mg/d L [facility] Urea nitrogen/Creatinine [Mass ratio] 18.2 mg/mg [facility] The eGFR should be u sed for monitoring renal function only and not for medication dosing. [facility] CBC panel Auto (Bld)on 01-21 Erythrocyte distribution width (RBC) [Entitic vol] 15.7 % High 11.6 - 14.8 % [facility] Hematocrit (Bld) [Volume fraction] 32.7 % Low 36.0 - 46.0 % [facility] Hemoglobin (Bld) [Mass/Vol] 10.2 g/dL Low 12.0 - 16.0 g/dL [facility] Interpretation and review of laboratory results Abnormal [facility] MCH (RBC) [Entitic mass] 27.1 pg 26. 0 - 34.0 pg [facility] MCHC (RBC) [Mass/Vol] 31.2 g/dL 31.0 - 37.0 g/dL [facility] MCV (RBC) [Entitic vol] 86.7 fL 80.0 - 100.0 fL [facility] Nucleated RBC (Bld) [#/Vol] 0.00 10*3/uL [facility] Nucleated RBC/100 WBC (Bld) [Ratio] 0.0 % [facility] Platelet mean volume (Bld) [Entitic vol] 11.7 fL 9.4 - 12.4 fL [facility] Platelets (Bld) [#/Vol] 173 10*3/uL [facility] RBC (Bld) [#/Vol] 3.77 10*6/uL Low [facility] WBC (Bld) [#/Vol] 6.65 10*3/uL [facility] Calcium, Ionizedon 2 Calcium.ionized [Mass/Vol] 4.6 mg/dL 4.5 - 5.3 mg/dL [facility] Calcium.ionized [Mass/Vol]on 01-21-2022 Interpretation and review of laboratory results Normal [facility] Echocardiogram limited with contrastOrdered By: Nicol Pittman on 01-21-2022 AV mean gradient 5 mmHg [facility] Work Phone: [facility] Work Phone: Echocardiogram limited with contraston 01-21-2022 Patient Info Name: VICKIE GONZALEZ Age: 66 years : 1955 Gender: Female Ht: 168 cm Wt: 102 kg BSA: 2.22 m2 BP: 144 / 57 mmHg Technical Quality: Fair Exam Date: 01/21/2022 12:12 PM 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 Limited two-dimensional, [...] no pericardial effusion. Left Ventricular Outflow Tract - Name Value Normal - LVOT Doppler - LVOT Peak Velocity 1.2 m/s LVOT Mean Gradient 3 mmHg LVOT VTI 26 cm LVOT VTI/AV VTI Ratio 0.8 Aortic Valve - Name Value Normal - AV Doppler - AV Peak Velocity 1.7 m/s AV Mean Gradient 5 mmHg AV VTI 34 cm LVOT Vmax/AV Vmax 0.71 LVOT VTI/AV VTI Ratio 0.8 Report Signatures Finalized by Nicol Pittman DO on 01/21/2022 04:13 PM FUJI SYNAPSE Nicol Smith DO - 01/21/2022 Patient Info Name: VICKIE GONZALEZ Age: 66 years : 1955 Gender: Female Ht: 168 cm Wt: 102 kg BSA: 2.22 m2 BP: 144 / 57 mmHg Technical Quality: Fair Exam Date: 01/21/2022 12:12 PM 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 Limited two-dimensional, [...] no pericardial effusion. Left Ventricular Outflow Tract - Name Value Normal - LVOT Doppler - LVOT Peak Velocity 1.2 m/s LVOT Mean Gradient 3 mmHg LVOT VTI 26 cm LVOT VTI/AV VTI Ratio 0.8 Aortic Valve - Name Value Normal - AV Doppler - AV Peak Velocity 1.7 m/s AV Mean Gradient 5 mmHg AV VTI 34 cm LVOT Vmax/AV Vmax 0.71 LVOT VTI/AV VTI Ratio 0.8 Report Signatures Finalized by Nicol Pittman DO on 01/21/2022 04:13 PM [facility] Radiology Study observation (narrative) [facility] INR Coag (PPP) [Relative shandra e]on 01-21-2022 Interpretation and review of laboratory results Abnormal [facility] PT Coag (PPP) [Time] 15.5 s [facility] During the induction phase of oral anticoagulation, the INR may not reflect the anticoagulation status of the patient. Therapeutic ranges for INR's are: Most clinical situations: INR 2.0-3.0 Mechanical Prosthetic Valve: INR 2.5-3.5 Critical: INR >5.0 [facility] Laboratory - Blood bankon ABO and Rh group Nom (Bld) 5100 [facility] ABO and Rh group Nom (Bld) Blood group O Rh(D) positive [facility] Magnesiumon 01-21-2022 Magnesium [Mass/Vol] 1.8 mg/dL 1.6 - 2 .4 mg/dL [facility] Magnesium [Mass/Vol]on 01-21 Interpretation and review of laboratory results Normal [facility] No Panel Informationon 01-21 [facility] Cross Match Compatible [facility] Product Code [id number] [facility] Product ID Red Blood Cells [facility] Status Info Ready [facility] POC Venous Blood Gas Panel-P ulmon 01-21-2022 Base excess Calc (BldV) [Moles/Vol] -1.1000 mmol/L [facility] Breath rate setting Ventilator synchronized intermittent mandatory 0 [facility] Calcium.ionized [Mass/Vol] 4.8 mg/dL 4.5 - 5.3 mg/dL [facility] Carboxyhemoglobin (BldA) [Mass fraction] 1.5 <=1.5 % of total Hb [facility] Comment on above: Reference Ranges: [facility] Non-smokers: <1.5% Smokers: 1.5-5.0% Heavy Smokers: 5.0-9.0% Chloride [Moles/Vol] 109 mmol/L High 98 - 10 8 mmol/L [facility] CO2 (BldV) [Partial pressure] 47.4 mm[Hg] [facility] Glucose [Mass/Vol] 109 mg/dL High 65 - 99 mg/dL [facility] HCO3 (Bld) [Moles/Vol] 25.0 mmol/L 24.0 - 28.0 mmol/L [facility] Hematocrit (BldA) [Volume fraction] 29.7 % Low 36.0 - 46.0 % [facility] Hemoglobin (Bld) [Mass/Vol] 9.7 g/dL Low 12.0 - 16.0 g/dL [facility] Inhaled oxygen concentration 0 % [facility] Interpretation and review of laboratory results Abnormal [facility] Lactate [Moles/Vol] 0.4 mmol/L Low 0.6 - 2. 0 mmol/L [facility] Methemoglobin (BldA) [Mass fraction] <1.0 0.0 - 2.0 % [facility] Oxygen (BldV) [Partial pressure] 39 mm[Hg] [facility] Oxygen saturation in Venous blood 69.2 % 40.0 - 70.0 % [facility] Oxyhemoglobin (BldA) [Mass fraction] 67.8 % No established reference range [facility] pH (BldV) 7.33 [pH] [facility] Potassium [Moles/Vol] 3.6 mmol/L 3.5 - 5.1 mmol/L [facility] Result Notification critical results giv en to treating OR anesthesiolo [facility] Sodium [Moles/Vol] 143 mmol/L 135 - 145 mmol/L [facility] Tidal volume setting Ventilator 0 [facility] PT/INRon 01-21-2022 INR Coag (PPP) [Relative time] 1.3 {INR} High [facility] Potassium Levelon 01-21-2022 Potassium [Moles/Vol] 4.5 mmol/L 3.5 - 5.1 mmol/L [facility] Potassium [Moles/Vol]on 01-01 Interpretation and review of laboratory results Normal [facility] Prepare RBC: 4 Unitson 01-21 Product Code [id number] [facility] Unit Number [id number] [facility] Unit Number [id number] [facility] Unit Number [id number] [facility] Unit Number [id number] [facility] XR Chest 1 Viewon 01-21-2022 Status post TAVR Cardiomegaly pulmonary vascular congestion and edema Workstation ID: [id number] EXAMINATION: ONE XRAY VIEW OF THE CHEST [...] edema. No focal airspace disease. No pneumothorax GE Lindsey Knutson MD - 01/21/2022 EXAMINATION: ONE XRAY VIEW OF THE [...] edema. No focal airspace disease. No pneumothorax IMPRESSION: Status post TAVR Cardiomegaly pulmonary vascular congestion and edema Workstation ID: [id number] [facility] Radiology Study observation (narrative) [facility] XR Chest 1 ViewOrdered By: Malachi Shirley on 01-21-2022 [facility] Work Phone: aPTT Coag (Bld) [Time]on Interpretation and review of laboratory results Normal [facility] Therapeutic range fo r APTT's is 68 - 104 seconds [facility] ECG 12 LeadOrdered By: Virginie Guerra on 01-09-2022 Atrial Rate [facility] [place] [facility] P-R Interval [facility] Q-T Interval [facility] Q-T Interval (corrected) [facility] QRS Duration [facility] QTC Calculation (Bezet) [facility] [place] [facility] [place] [facility] Ventricular Rate [facility] COVID-19, MolecularOrdered B y: Nasreen Jenkins on 01-07-2022 SARS-CoV-2 (COVID-19) RNA MAXIMUS+probe Ql (Resp) Not detected Not Detected [facility] Comment on above: This test was perfor med under the FDA's Emergency Use Authorization (EUA). Testing was performed using the [employer]ane SARS-CoV-2 RT-PCR assay on the Lu[employer] Sloane 6800 System. This test has not been approved for use in asymptomatic patients and its performance in this patient population has not been evaluated. Negative results do not rule out the presence of SARS-CoV-2/COVID-19. Fact sheets for this EUA can be found at the following links: For Healthcare Providers: https://www.fda.gov/media/831334/download For Patients: https://www.fda.gov/media/451247/download SARS-CoV-2 (COVID-19) RNA NA A+probe Ql (Resp)Ordered By: Nasreen Jenkins on 01-07-2022 Interpretation and review of laboratory results Normal [facility] ECG 12-LEADOrdered By: Blaine Silveira on 06-10-2021 Atrial Rate [facility] [place] [facility] P-R Interval [facility] Q-T Interval [facility] Q-T Interval (corrected) [facility] QRS Duration [facility] QTC Calculation (Bezet) [facility] [place] [facility] [place] [facility] Ventricular Rate [facility] Atrial Rate [facility] [place] [facility] P-R Interval [facility] Q-T Interval [facility] Q-T Interval (corrected) [facility] QRS Duration [facility] QTC Calculation (Bezet) [facility] [place] [facility] [place] [facility] Ventricular Rate [facility] ECHOCARDIOGRAM COMPLETEon Transthoracic Echocardiogram _ Patient: CARLOS Sykes [facility] Rec#: [id number] (Age): 1955(63y) Height: 167.64(cm)/65(i Study Date: 06/14/2019 Weight: 120.66(kg)/265( Room#: BSA: [id number] Type: Loc: Sex: F _ Reading: Silvio Mckeon MD F Referring: BLAINE SILVEIRA L. Brake Operator Sheet Metal: Angelica Lynne RDCS, RVT History: Aortic Valve disorder. Chest pain. Coronary artery disease. Dyspnea. Prior echo. S/P CABG. Study Quality The study quality is fair. Summary: Patient identity verified (pause and confirm). Current HP present on patient chart. Procedure explained and patient verified understanding. Consent obtained for procedure. Conclusions: There is normal left ventricular systolic function. Post surgical hypokinesis of the interventricular septum is observed consistent with coronary artery bypass. The estimated ejection fraction is 55-60%. The left atrium is dilated. There is mild aortic stenosis. The mean gradient of the aortic valve is 12 mmHg. There is mild to moderate aortic regurgitation. Findings Reason For Study: Aortic Valve Disorder. Left Ventricle: The left ventricular chamber size is normal. There is no left ventricular hypertrophy observed. There is normal left ventricular systolic function. The estimated ejection fraction is 55-60%. Post surgical hypokinesis of the interventricular septum is observed consistent with coronary artery bypass. Left Atrium: The left atrium is dilated. Right Ventricle: The right ventricular cavity size is borderline enlarged. The right ventricular global systolic function is grossly normal. Right Atrium: The right atrial cavity size is dilated. Aortic Valve: The aortic valve is trileaflet. Mild aortic leaflet calcification is visualized. Moderate aortic cusp sclerosis is present. There is mild aortic stenosis. The mean gradient of the aortic valve is 12 mmHg. The peak instantaneous gradient of the aortic valve is 23.81 mmHg. There is mild to moderate aortic regurgitation. Mitral Valve: There is mitral annular calcification. The mitral valve leaflets are moderately thickened. Mitral valve leaflet mobility appears normal. The papillary muscle heads appear calcified. There is mild mitral regurgitation. Tricuspid Valve: The tricuspid valve appears grossly normal in structure and function. There is mild to moderate tricuspid regurgitation. The right ventricular systolic pressure is 22.89 mmHg. Pulmonic Valve: The pulmonic valve appears grossly normal in structure and function. There is a trace pulmonic regurgitation. Pericardium: There is no pericardial effusion. The pericardium appears grossly normal. Aorta: The aortic root is normal in diameter. There is plaque visualized in the ascending aorta. HR 76 BP 159/75 Measurements Chambers 2D Name Value Normal Range IVSd (2D) 1.52 cm none LVPWd (2D) 1.3 cm none IVS:LVPW ratio (2D) 1.17 ratio none LVIDd (2D) 4.65 cm none LVIDs (2D) 3.23 cm none LVIDd (2D) index 2.06 cm/m2 none LVIDs (2D) index 1.43 cm/m2 none LV FS (2D) 30.54 % none EF Teichholz (2D) 58.03 % none Ao root diameter (2D) 3.1 cm none Aortic root diameter (2D) inde1.37 cm/m2 none Volumes/Mass Name Value Normal Range LA ESV SP 4CH (MOD) 82 ml none LA ESV SP 2CH (MOD) 86.5 ml none LA ESV BP (MOD) 90.6 ml none LA ESV BP (MOD) index 40.13 ml/m2 none LV EDV SP 4CH (MOD) 126 ml none LV ESV SP 4CH (MOD) 49.8 ml none EF SP 4CH (MOD) 60.48 % none LV EDV SP 2CH (MOD) 117 ml none LV ESV SP 2CH (MOD) 50.2 ml none EF SP 2CH (MOD) 57.09 % none LV EDV BP 123 ml none LV ESV BP 50 ml none BP EF (MOD) 59.35 % none LV EDV BP index 54.48 ml/m2 none LV ESV BP index 22.14 ml/m2 none LV mass (2D) 263.75 g none LV mass (2D) index 116.81 g/m2 none Diastolic/Systolic Function Name Value Normal Range MV E-wave Vmax 0.98 m/sec none MV deceleration time 141 msec none MV A-wave Vmax 0.98 m/sec none MV E:A ratio 0.99 ratio (1.1 - 1.5) LV E:e' septal ratio 17.9 ratio none LV E:e' lateral ratio 6.8 ratio none TAPSE 1.75 cm none Aortic Valve Name Value Normal Range AV Vmax 2.44 m/sec (1 - 1.7) AV VTI 55.4 cm none AV peak gradient 23.81 mmHg (Less Than 36) AV mean gradient 12 mmHg (Less Than 20) LVOT diameter 2.1 cm (1.7 - 2.5) LVOT Vmax 1.23 m/sec (0.7 - 1.1) LVOT VTI 27.9 cm none LVOT peak gradient 6 mmHg none LVOT mean gradient 3 mmHg none DOI (VTI) 0.5 ratio none DOI (Vmax) 0.5 ratio none SV LVOT 96.59 ml none CO LVOT 7.34 l/min none Cardiac index 3.25 l/min/m2 none DENNY (continuity Vmax) 1.75 cm2 none DENNY (continuity Vmax) index 0.77 cm2/m2 none DENNY (continuity VTI) 1.74 cm2 none DENNY (continuity VTI) index 0.77 cm2/m2 none AR PHT 342 msec none AR peak gradient 76 mmHg none Ascending Ao 3 cm none Tricuspid Valve Name Value Normal Range TR Vmax 2.23 m/sec none TR peak gradient 19.89 mmHg none RAP 3 mmHg none RVSP 22.89 mmHg none Pulmonic Valve/Qp:Qs Name Value Normal Range PV Vmax 1.42 m/sec (0.6 - 0.9) PV VTI 37.4 cm none PV peak gradient 8.07 mmHg none PV mean gradient 4 mmHg none Electronically Signed at 06/14/2019 16:22:40 by: Silvio Mckeon MD [facility], Rad In [facility] - 06/14/2019 4:29 PM EDT Transthoracic Echocardiogram _ Patient: CARLOS Sykes [facility] Rec#: [id number] (Age): 1955(63y) Height: 167.64(cm)/65(i Study Date: 06/14/2019 Weight: 120.66(kg)/265( Room#: BSA: [id number] Type: Loc: Sex: F _ Reading: Silvio Mckeon MD F Referring: BLAINE SILVEIRA L. Brake Operator Sheet Metal: Angelica Lynne [facility], RVT History: Aortic Valve disorder. Chest pain. Coronary artery disease. Dyspnea. Prior echo. S/P CABG. Study Quality The study quality is fair. Summary: Patient identity verified (pause and confirm). Current HP present on patient chart. Procedure explained and patient verified understanding. Consent obtained for procedure. Conclusions: There is normal left ventricular systolic function. Post surgical hypokinesis of the interventricular septum is observed consistent with coronary artery bypass. The estimated ejection fraction is 55-60%. The left atrium is dilated. There is mild aortic stenosis. The mean gradient of the aortic valve is 12 mmHg. There is mild to moderate aortic regurgitation. Findings Reason For Study: Aortic Valve Disorder. Left Ventricle: The left ventricular chamber size is normal. There is no left ventricular hypertrophy observed. There is normal left ventricular systolic function. The estimated ejection fraction is 55-60%. Post surgical hypokinesis of the interventricular septum is observed consistent with coronary artery bypass. Left Atrium: The left atrium is dilated. Right Ventricle: The right ventricular cavity size is borderline enlarged. The right ventricular global systolic function is grossly normal. Right Atrium: The right atrial cavity size is dilated. Aortic Valve: The aortic valve is trileaflet. Mild aortic leaflet calcification is visualized. Moderate aortic cusp sclerosis is present. There is mild aortic stenosis. The mean gradient of the aortic valve is 12 mmHg. The peak instantaneous gradient of the aortic valve is 23.81 mmHg. There is mild to moderate aortic regurgitation. Mitral Valve: There is mitral annular calcification. The mitral valve leaflets are moderately thickened. Mitral valve leaflet mobility appears normal. The papillary muscle heads appear calcified. There is mild mitral regurgitation. Tricuspid Valve: The tricuspid valve appears grossly normal in structure and function. There is mild to moderate tricuspid regurgitation. The right ventricular systolic pressure is 22.89 mmHg. Pulmonic Valve: The pulmonic valve appears grossly normal in structure and function. There is a trace pulmonic regurgitation. Pericardium: There is no pericardial effusion. The pericardium appears grossly normal. Aorta: The aortic root is normal in diameter. There is plaque visualized in the ascending aorta. HR 76 BP 159/75 Measurements Chambers 2D Name Value Normal Range IVSd (2D) 1.52 cm none LVPWd (2D) 1.3 cm none IVS:LVPW ratio (2D) 1.17 ratio none LVIDd (2D) 4.65 cm none LVIDs (2D) 3.23 cm none LVIDd (2D) index 2.06 cm/m2 none LVIDs (2D) index 1.43 cm/m2 none LV FS (2D) 30.54 % none EF Teichholz (2D) 58.03 % none Ao root diameter (2D) 3.1 cm none Aortic root diameter (2D) inde1.37 cm/m2 none Volumes/Mass Name Value Normal Range LA ESV SP 4CH (MOD) 82 ml none LA ESV SP 2CH (MOD) 86.5 ml none LA ESV BP (MOD) 90.6 ml none LA ESV BP (MOD) index 40.13 ml/m2 none LV EDV SP 4CH (MOD) 126 ml none LV ESV SP 4CH (MOD) 49.8 ml none EF SP 4CH (MOD) 60.48 % none LV EDV SP 2CH (MOD) 117 ml none LV ESV SP 2CH (MOD) 50.2 ml none EF SP 2CH (MOD) 57.09 % none LV EDV BP 123 ml none LV ESV BP 50 ml none BP EF (MOD) 59.35 % none LV EDV BP index 54.48 ml/m2 none LV ESV BP index 22.14 ml/m2 none LV mass (2D) 263.75 g none LV mass (2D) index 116.81 g/m2 none Diastolic/Systolic Function Name Value Normal Range MV E-wave Vmax 0.98 m/sec none MV deceleration time 141 msec none MV A-wave Vmax 0.98 m/sec none MV E:A ratio 0.99 ratio (1.1 - 1.5) LV E:e' septal ratio 17.9 ratio none LV E:e' lateral ratio 6.8 ratio none TAPSE 1.75 cm none Aortic Valve Name Value Normal Range AV Vmax 2.44 m/sec (1 - 1.7) AV VTI 55.4 cm none AV peak gradient 23.81 mmHg (Less Than 36) AV mean gradient 12 mmHg (Less Than 20) LVOT diameter 2.1 cm (1.7 - 2.5) LVOT Vmax 1.23 m/sec (0.7 - 1.1) LVOT VTI 27.9 cm none LVOT peak gradient 6 mmHg none LVOT mean gradient 3 mmHg none DOI (VTI) 0.5 ratio none DOI (Vmax) 0.5 ratio none SV LVOT 96.59 ml none CO LVOT 7.34 l/min none Cardiac index 3.25 l/min/m2 none DENNY (continuity Vmax) 1.75 cm2 none DENNY (continuity Vmax) index 0.77 cm2/m2 none DENNY (continuity VTI) 1.74 cm2 none DENNY (continuity VTI) index 0.77 cm2/m2 none AR PHT 342 msec none AR peak gradient 76 mmHg none Ascending Ao 3 cm none Tricuspid Valve Name Value Normal Range TR Vmax 2.23 m/sec none TR peak gradient 19.89 mmHg none RAP 3 mmHg none RVSP 22.89 mmHg none Pulmonic Valve/Qp:Qs Name Value Normal Range PV Vmax 1.42 m/sec (0.6 - 0.9) PV VTI 37.4 cm none PV peak gradient 8.07 mmHg none PV mean gradient 4 mmHg none Electronically Signed at 06/14/2019 16:22:40 by: Silvio Mckeon MD [facility] ECG 12-LEADon 06-06-2019 Atrial Rate [facility] [place] P-R Interval [facility] Q-T Interval [facility] Q-T Interval (corrected) [facility] QRS Duration [facility] QTC Calculation (Be[facility]) [facility] [place] T [place] [facility] Ventricular Rate [facility] Echocardiogram completeon Echocardiogram complete Transthoracic Echocardiogram _ Patient: CARLOS Sykes [facility] Rec#: [id number] (Age): 1955(62y) Height: 167.64(cm)/65(i Study Date: 01/05/2018 Weight: 109.77(kg)/241( Room#: BSA: [id number] Type: Outpatient Loc: Sex: F _ Reading: Iliana Gomez M.D. Referring: BLAINE SILVEIRA L. Brake Operator Sheet Metal: Angelica Lynne [facility], [place]T History: Aortic Valve disorder. Aotic insufficiencyCoronary artery disease. Hypertension. Prior echo. 04/08/2017S/P CABG. 2001Shortness of breath. Study Quality The study quality is good. Summary: Patient identity verified (pause and confirm). Current HP present on patient chart. Procedure explained and patient verified understanding. Consent obtained for procedure. Conclusions: Post surgical hypokinesis of the interventricular septum is observed consistent with coronary artery bypass. suspect small segment of proximal inferior hypokinesis, EF 55%.The left ventricular chamber size is borderline dilated.Mild concentric left ventricular hypertrophy is observed.The ejection fraction is calculated to be 55% using the Method of Disks. Mild aortic leaflet calcification is visualized.Cannot exclude bileaflet valve. 3+ aortic insufficiency.The pressure half time of the aortic regurgitation is 243 msec.The AR vena contracta is 0.73 cm's. Findings Reason For Study: Aortic Valve Disorder. Shortness of breath. Left Ventricle: The left ventricular chamber size is borderline dilated. Mild concentric left ventricular hypertrophy is observed. Post surgical hypokinesis of the interventricular septum is observed consistent with coronary artery bypass. Abnormal left ventricular diastolic filling is observed, consistent with impaired relaxation. The ejection fraction is calculated to be 55% using the Method of Disks. suspect proximal inferior hypokinesis Left Atrium: The left atrial chamber size is normal. Right Ventricle: The right ventricle is mildly dilated. The right ventricular global systolic function is grossly normal. Right Atrium: The right atrial cavity size is normal. Aortic Valve: The aortic valve leaflets are mildly thickened. Mild aortic leaflet calcification is visualized. There is no dilatation of the aortic root. Systolic excursion of the aortic valve is normal. There is no hemodynamically significant stenosis. The aortic valve peak velocity is 2.28 m/sec. The AR vena contracta is 0.73 cm's. The pressure half time of the aortic regurgitation is 243 msec. jet height to lvot ratio .47 Mitral Valve: The mitral valve leaflets are moderately to severely thickened. No significant insufficiency. Tricuspid Valve: The tricuspid valve leaflets are normal. There is mild tricuspid regurgitation. The right ventricular systolic pressure is 25.85 mmHg. Pulmonic Valve: The pulmonic valve appears normal. No significant insufficiency. Pericardium: There is no pericardial effusion. Venous: The inferior vena cava appears normal in size. There is a greater than 50% respiratory change in the inferior vena cava dimension. The flow patterns of the pulmonary veins were consistent with systolic blunting. HR 78 BP 187/73 Measurements Chambers 2D Name Value Normal Range RVIDd (AP) 4.3 cm none RVIDd index 1.98 cm/m2 none IVSd (2D) 1.46 cm none LVPWd (2D) 1.08 cm none IVS:LVPW ratio (2D) 1.35 ratio none LVIDd (2D) 4.95 cm none LVIDs (2D) 3.21 cm none LVIDd (2D) index 2.28 cm/m2 none LVIDs (2D) index 1.48 cm/m2 none LV FS (2D) 35.15 % none LV FS (Teichholz) (2D) 35.2 % none LV FS (cube) (2D) 35.2 % none LV EF (2D) 55 % (60 - 100) EF Teichholz (2D) 64.27 % none Ao root diameter (2D) 2.9 cm none LA dimension (AP) 2D 4.4 cm none LA:Ao ratio (2D) 1.52 ratio none Aortic root diameter (2D) inde1.34 cm/m2 none LA dimension (2D) index 2.03 cm/m2 none Volumes/Mass Name Value Normal Range LA ESV SP 4CH (MOD) 60.3 ml none LA ESV SP 2CH (MOD) 57.4 ml none LA ESV BP (MOD) 63.9 ml none LA ESV BP (MOD) index 29.46 ml/m2 none LV EDV SP 4CH (MOD) 102 ml none LV ESV SP 4CH (MOD) 47.1 ml none EF SP 4CH (MOD) 53.82 % none LV EDV SP 2CH (MOD) 119 ml none LV ESV SP 2CH (MOD) 45.3 ml none EF SP 2CH (MOD) 61.93 % none LV EDV BP 110 ml none LV ESV BP 49.6 ml none BP EF (MOD) 54.91 % none LV EDV BP index 50.72 ml/m2 none LV ESV BP index 22.87 ml/m2 none LV mass (2D) 249.29 g none LV mass (2D) index 114.94 g/m2 none Diastolic/Systolic Function Name Value Normal Range MV E-wave Vmax 1.05 m/sec none MV deceleration time 165 msec none MV A-wave Vmax 0.96 m/sec none MV E:A ratio 1.1 ratio (1.1 - 1.5) LV E:e' septal ratio 23 ratio none LV E:e' lateral ratio 8 ratio none TAPSE 1.89 cm none Aortic Valve Name Value Normal Range AV Vmax 2.28 m/sec (1 - 1.7) AV VTI 50.7 cm none AV peak gradient 20.79 mmHg (Less Than 36) AV mean gradient 10 mmHg (Less Than 20) LVOT diameter 2 cm (1.7 - 2.5) LVOT Vmax 1.33 m/sec (0.7 - 1.1) LVOT VTI 32.2 cm none LVOT peak gradient 7 mmHg none LVOT mean gradient 3 mmHg none DOI (VTI) 0.64 ratio none DOI (Vmax) 0.58 ratio none SV LVOT 101.11 ml none CO LVOT 7.89 l/min none Cardiac index 3.64 l/min/m2 none DENNY (continuity Vmax) 1.83 cm2 none DENNY (continuity Vmax) index 0.84 cm2/m2 none DENNY (continuity VTI) 1.99 cm2 none DENNY (continuity VTI) index 0.92 cm2/m2 none AR PHT 243 msec none AR volume (continuity VTI) 138 ml none AR fraction (continuity VTI) 136.49 % none AR vena contracta 0.73 cm none AR peak gradient 89 mmHg none Mitral Valve Name Value Normal Range MV Vmax 1.21 m/sec (0.6 - 1.3) MV VTI 29 cm none MV peak gradient 5.86 mmHg none MV mean gradient 2 mmHg none MV PHT 49 msec none MVA (PHT) 4.49 cm2 none MVA (continuity VTI) 3.49 cm2 none Tricuspid Valve Name Value Normal Range TR Vmax 2.39 m/sec none TR peak gradient 22.85 mmHg none RAP 3 mmHg none RVSP 25.85 mmHg none Pulmonic Valve/Qp:Qs Name Value Normal Range PV Vmax 0.66 m/sec (0.6 - 0.9) PV peak gradient 1.77 mmHg none Electronically Signed at 01/05/2018 14:54:55 by: Iliana Gomez M.D. Invalid Interpretation Code [facility] Echocardiogram complete Interface, Rad I n Heartlab Xper Echopacs - 01/05/2018 2:56 PM EST Transthoracic Echocardiogram _ Patient: CARLOS Sykes [facility] Rec#: [id number] (Age): 1955(62y) Height: 167.64(cm)/65(i Study Date: 01/05/2018 Weight: 109.77(kg)/241( Room#: BSA: [id number] Type: Outpatient Loc: Sex: F _ Reading: Iliana Gomez M.D. Referring: BLAINE SILVEIRA L. Brake Operator Sheet Metal: Angelica Lynne [facility], [place]T History: Aortic Valve disorder. Aotic insufficiencyCoronary artery disease. Hypertension. Prior echo. 04/08/2017S/P CABG. 2001Shortness of breath. Study Quality The study quality is good. Summary: Patient identity verified (pause and confirm). Current HP present on patient chart. Procedure explained and patient verified understanding. Consent obtained for procedure. Conclusions: Post surgical hypokinesis of the interventricular septum is observed consistent with coronary artery bypass. suspect small segment of proximal inferior hypokinesis, EF 55%.The left ventricular chamber size is borderline dilated.Mild concentric left ventricular hypertrophy is observed.The ejection fraction is calculated to be 55% using the Method of Disks. Mild aortic leaflet calcification is visualized.Cannot exclude bileaflet valve. 3+ aortic insufficiency.The pressure half time of the aortic regurgitation is 243 msec.The AR vena contracta is 0.73 cm's. Findings Reason For Study: Aortic Valve Disorder. Shortness of breath. Left Ventricle: The left ventricular chamber size is borderline dilated. Mild concentric left ventricular hypertrophy is observed. Post surgical hypokinesis of the interventricular septum is observed consistent with coronary artery bypass. Abnormal left ventricular diastolic filling is observed, consistent with impaired relaxation. The ejection fraction is calculated to be 55% using the Method of Disks. suspect proximal inferior hypokinesis Left Atrium: The left atrial chamber size is normal. Right Ventricle: The right ventricle is mildly dilated. The right ventricular global systolic function is grossly normal. Right Atrium: The right atrial cavity size is normal. Aortic Valve: The aortic valve leaflets are mildly thickened. Mild aortic leaflet calcification is visualized. There is no dilatation of the aortic root. Systolic excursion of the aortic valve is normal. There is no hemodynamically significant stenosis. The aortic valve peak velocity is 2.28 m/sec. The AR vena contracta is 0.73 cm's. The pressure half time of the aortic regurgitation is 243 msec. jet height to lvot ratio .47 Mitral Valve: The mitral valve leaflets are moderately to severely thickened. No significant insufficiency. Tricuspid Valve: The tricuspid valve leaflets are normal. There is mild tricuspid regurgitation. The right ventricular systolic pressure is 25.85 mmHg. Pulmonic Valve: The pulmonic valve appears normal. No significant insufficiency. Pericardium: There is no pericardial effusion. Venous: The inferior vena cava appears normal in size. There is a greater than 50% respiratory change in the inferior vena cava dimension. The flow patterns of the pulmonary veins were consistent with systolic blunting. HR 78 BP 187/73 Measurements Chambers 2D Name Value Normal Range RVIDd (AP) 4.3 cm none RVIDd index 1.98 cm/m2 none IVSd (2D) 1.46 cm none LVPWd (2D) 1.08 cm none IVS:LVPW ratio (2D) 1.35 ratio none LVIDd (2D) 4.95 cm none LVIDs (2D) 3.21 cm none LVIDd (2D) index 2.28 cm/m2 none LVIDs (2D) index 1.48 cm/m2 none LV FS (2D) 35.15 % none LV FS (Teichholz) (2D) 35.2 % none LV FS (cube) (2D) 35.2 % none LV EF (2D) 55 % (60 - 100) EF Teichholz (2D) 64.27 % none Ao root diameter (2D) 2.9 cm none LA dimension (AP) 2D 4.4 cm none LA:Ao ratio (2D) 1.52 ratio none Aortic root diameter (2D) inde1.34 cm/m2 none LA dimension (2D) index 2.03 cm/m2 none Volumes/Mass Name Value Normal Range LA ESV SP 4CH (MOD) 60.3 ml none LA ESV SP 2CH (MOD) 57.4 ml none LA ESV BP (MOD) 63.9 ml none LA ESV BP (MOD) index 29.46 ml/m2 none LV EDV SP 4CH (MOD) 102 ml none LV ESV SP 4CH (MOD) 47.1 ml none EF SP 4CH (MOD) 53.82 % none LV EDV SP 2CH (MOD) 119 ml none LV ESV SP 2CH (MOD) 45.3 ml none EF SP 2CH (MOD) 61.93 % none LV EDV BP 110 ml none LV ESV BP 49.6 ml none BP EF (MOD) 54.91 % none LV EDV BP index 50.72 ml/m2 none LV ESV BP index 22.87 ml/m2 none LV mass (2D) 249.29 g none LV mass (2D) index 114.94 g/m2 none Diastolic/Systolic Function Name Value Normal Range MV E-wave Vmax 1.05 m/sec none MV deceleration time 165 msec none MV A-wave Vmax 0.96 m/sec none MV E:A ratio 1.1 ratio (1.1 - 1.5) LV E:e' septal ratio 23 ratio none LV E:e' lateral ratio 8 ratio none TAPSE 1.89 cm none Aortic Valve Name Value Normal Range AV Vmax 2.28 m/sec (1 - 1.7) AV VTI 50.7 cm none AV peak gradient 20.79 mmHg (Less Than 36) AV mean gradient 10 mmHg (Less Than 20) LVOT diameter 2 cm (1.7 - 2.5) LVOT Vmax 1.33 m/sec (0.7 - 1.1) LVOT VTI 32.2 cm none LVOT peak gradient 7 mmHg none LVOT mean gradient 3 mmHg none DOI (VTI) 0.64 ratio none DOI (Vmax) 0.58 ratio none SV LVOT 101.11 ml none CO LVOT 7.89 l/min none Cardiac index 3.64 l/min/m2 none DENNY (continuity Vmax) 1.83 cm2 none DENNY (continuity Vmax) index 0.84 cm2/m2 none DENNY (continuity VTI) 1.99 cm2 none DENNY (continuity VTI) index 0.92 cm2/m2 none AR PHT 243 msec none AR volume (continuity VTI) 138 ml none AR fraction (continuity VTI) 136.49 % none AR vena contracta 0.73 cm none AR peak gradient 89 mmHg none Mitral Valve Name Value Normal Range MV Vmax 1.21 m/sec (0.6 - 1.3) MV VTI 29 cm none MV peak gradient 5.86 mmHg none MV mean gradient 2 mmHg none MV PHT 49 msec none MVA (PHT) 4.49 cm2 none MVA (continuity VTI) 3.49 cm2 none Tricuspid Valve Name Value Normal Range TR Vmax 2.39 m/sec none TR peak gradient 22.85 mmHg none RAP 3 mmHg none RVSP 25.85 mmHg none Pulmonic Valve/Qp:Qs Name Value Normal Range PV Vmax 0.66 m/sec (0.6 - 0.9) PV peak gradient 1.77 mmHg none Electronically Signed at 01/05/2018 14:54:55 by: Iliana Gomez M.D. Invalid Interpretation Code [facility] Vital Signs Date Time Vital Sign Value Performing Clinician Facility 02-12-2024 11:18-0400 Body temperature 98.1 [degF] Kendall Graff PT [facility] 02-12-2024 11:18-0400 Diastolic blood pressure 79 mm[Hg] Kendall Graff PT [facility] 02-12-2024 11:18-0400 Heart rate 78 /min Kendall Graff PT [facility] 02-12-2024 11:18-0400 Respiratory rate 16 /min Kendall Graff PT [facility] 02-12-2024 11:18-0400 SaO2% (BldA) [Mass fraction] 98 % Kendall Graff PT [facility] 02-12-2024 11:18-0400 Systolic blood pressure 124 mm[Hg] Kendall Graff PT [facility] 02-11-2024 08:58-0400 Body temperature 98.8 [degF] Lindsey Centeno RN [facility] 02-11-2024 08:58-0400 Diastolic blood pressure 78 mm[Hg] Lindsey Centeno RN [facility] 02-11-2024 08:58-0400 Heart rate 62 /min Lindsey Centeno RN [facility] 02-11-2024 08:58-0400 Respiratory rate 16 /min Lindsey Villalobososs RN [facility] 02-11-2024 08:58-0400 SaO2% (BldA) [Mass fraction] 99 % Lindsey Villalobososs RN [facility] 02-11-2024 08:58-0400 Systolic blood pressure 132 mm[Hg] Lindsey Centeno RN [facility] 02-10-2024 09:59-0400 Body temperature 97.81 [degF] Cristhian Byrnes [facility] 02-10-2024 09:59-0400 Diastolic blood pressure 70 mm[Hg] Cristhian Thrush [facility] 02-10-2024 09:59-0400 Heart rate 66 /min Cristhian Thrush [facility] 02-10-2024 09:59-0400 Respiratory rate 15 /min Cristhian Thrush [facility] 02-10-2024 09:59-0400 SaO2% (BldA) [Mass fraction] 97 % Cristhian Byrnes [facility] 02-10-2024 09:59-0400 Systolic blood pressure 118 mm[Hg] Cristhian Byrnes [facility] 02-09-2024 09:21-0400 Body temperature 98.2 [degF] Lisa Odell [facility] 02-09-2024 09:21-0400 Diastolic blood pressure 80 mm[Hg] [facility]ell [facility] 02-09-2024 09:21-0400 Heart rate 85 /min Lisa Odell [facility] 02-09-2024 09:21-0400 Respiratory rate 16 /min Lisa Odell [facility] 02-09-2024 09:21-0400 SaO2% (BldA) [Mass fraction] 98 % Lisa Odell [facility] 02-09-2024 09:21-0400 Systolic blood pressure 142 mm[Hg] Lisa [facility]ell [facility] 02-08-2024 10:30-0400 Body temperature 97.9 [degF] Cristhian Byrnes [facility] 02-08-2024 10:30-0400 Diastolic blood pressure 70 mm[Hg] Cristhian Byrnes [facility] 02-08-2024 10:30-0400 Heart rate 67 /min Cristhian Floresush [facility] 02-08-2024 10:30-0400 Respiratory rate 16 /min Cristhian Floresush [facility] 02-08-2024 10:30-0400 SaO2% (BldA) [Mass fraction] 97 % Cristhian Byrnes [facility] 02-08-2024 10:30-0400 Systolic blood pressure 118 mm[Hg] Cristhian Byrnes [facility] 02-05-2024 10:44-0500 Body temperature 98.49 [degF] Lisa Odell [facility] 02-05-2024 10:44-0500 Diastolic blood pressure 82 mm[Hg] Lisa Odell [facility] 02-05-2024 10:44-0500 Heart rate 77 /min Lisa Odell [facility] 02-05-2024 10:44-0500 Respiratory rate 16 /min Lisa Odell [facility] 02-05-2024 10:44-0500 SaO2% (BldA) [Mass fraction] 98 % Lisa Odell [facility] 02-05-2024 10:44-0500 Systolic blood pressure 150 mm[Hg] Lisa Odell [facility] 02-05-2024 10:09-0500 Body temperature 98.2 [degF] Cristhian Byrnes [facility] 02-05-2024 10:09-0500 Diastolic blood pressure 88 mm[Hg] Cristhian Byrnes [facility] 02-05-2024 10:09-0500 Heart rate 67 /min Cristhian Byrnes [facility] 02-05-2024 10:09-0500 Respiratory rate 15 /min Cristhian Byrnes [facility] 02-05-2024 10:09-0500 SaO2% (BldA) [Mass fraction] 97 % Cristhian Byrnes [facility] 02-05-2024 10:09-0500 Systolic blood pressure 150 mm[Hg] Cristhian Byrnes [facility] 02-03-2024 14:06-0500 Body temperature 97.59 [degF] Siena Rondon RN [facility] 02-03-2024 14:06-0500 Diastolic blood pressure 84 mm[Hg] Siena Rondon RN [facility] 02-03-2024 14:06-0500 Heart rate 76 /min Siena Rondon RN [facility] 02-03-2024 14:06-0500 Respiratory rate 18 /min Siena Rondon RN [facility] 02-03-2024 14:06-0500 SaO2% (BldA) [Mass fraction] 99 % Siena Rondon RN [facility] 02-03-2024 14:06-0500 Systolic blood pressure 130 mm[Hg] Siena Rondon RN [facility] 02-03-2024 12:32-0500 Body temperature 97.3 [degF] Cristhian Byrnes [facility] 02-03-2024 12:32-0500 Diastolic blood pressure 83 mm[Hg] Cristhian Floresush [facility] 02-03-2024 12:32-0500 Heart rate 70 /min Cristhian Floresush [facility] 02-03-2024 12:32-0500 Respiratory rate 15 /min Cristhian Floresush [facility] 02-03-2024 12:32-0500 SaO2% (BldA) [Mass fraction] 99 % Cristhian Byrnes [facility] 02-03-2024 12:32-0500 Systolic blood pressure 145 mm[Hg] Cristhian Floresush [facility] 02-01-2024 11:30-0500 Body temperature 98.1 [degF] Cristhian Floresush [facility] 02-01-2024 11:30-0500 Diastolic blood pressure 88 mm[Hg] Cristhian Floresush [facility] 02-01-2024 11:30-0500 Heart rate 70 /min Cristhian Floresush [facility] 02-01-2024 11:30-0500 Respiratory rate 15 /min Cristhian Byrnes [facility] 02-01-2024 11:30-0500 SaO2% (BldA) [Mass fraction] 98 % Cristhian Byrnes [facility] 02-01-2024 11:30-0500 Systolic blood pressure 148 mm[Hg] Cristhian Byrnes [facility] 01-28-2024 12:52-0500 Body temperature 98.6 [degF] Kendall Graff PT [facility] 01-28-2024 12:52-0500 Diastolic blood pressure 73 mm[Hg] Kendall Graff PT [facility] 01-28-2024 12:52-0500 Heart rate 69 /min Kendall Graff PT [facility] 01-28-2024 12:52-0500 Respiratory rate 16 /min Kendall Graff PT [facility] 01-28-2024 12:52-0500 SaO2% (BldA) [Mass fraction] 99 % Kendall Graff PT [facility] 01-28-2024 12:52-0500 Systolic blood pressure 142 mm[Hg] Kendall Graff PT [facility] 01-27-2024 10:42-0500 Body temperature 98.6 [degF] Siena Rondon RN [facility] 01-27-2024 10:42-0500 Diastolic blood pressure 82 mm[Hg] Siena Rondon RN [facility] 01-27-2024 10:42-0500 Heart rate 75 /min Siena Rondon RN [facility] 01-27-2024 10:42-0500 Respiratory rate 16 /min Siena Rondon RN [facility] 01-27-2024 10:42-0500 SaO2% (BldA) [Mass fraction] 96 % Siena Rondon RN [facility] 01-27-2024 10:42-0500 Systolic blood pressure 144 mm[Hg] Siena Rondon RN [facility] 01-15-2024 13:12-0500 Body height 167.6 cm Jass Pepe MD Work Phone: [facility] 01-15-2024 13:12-0500 Body mass index (BMI) [Ratio] 37.93 kg/m2 Jass Pepe MD Work Phone: [facility] 01-15-2024 13:12-0500 Body weight 106.59 kg Jass Pepe MD Work Phone: [facility] 01-15-2024 13:12-0500 Diastolic blood pressure 66 mm[Hg] Jass Pepe MD Work Phone: [facility] 01-15-2024 13:12-0500 Heart rate 82 /min Jass Pepe MD Work Phone: [facility] 01-15-2024 13:12-0500 Systolic blood pressure 143 mm[Hg] Jass Pepe MD Work Phone: [facility] 10-20-2023 13:34-0500 Diastolic blood pressure 91 mm[Hg] Blaine Silveira MD Work Phone: [facility] 10-20-2023 13:34-0500 Systolic blood pressure 156 mm[Hg] Blaine Silveira MD Work Phone: [facility] 10-20-2023 13:24-0500 Body height 170.2 cm Blaine Silveira MD Work Phone: [facility] 10-20-2023 13:24-0500 Body mass index (BMI) [Ratio] 37.28 kg/m2 Blaine Silveira MD Work Phone: [facility] 10-20-2023 13:24-0500 Body weight 107.96 kg Blaine Silveira MD Work Phone: [facility] 10-20-2023 13:24-0500 Heart rate 74 /min Blaine Silveira MD Work Phone: [facility] 10-20-2023 13:24-0500 SaO2% (BldA) [Mass fraction] 97 % Blaine Silveira MD Work Phone: [facility] 07-16-2023 09:42-0400 Body mass index (BMI) [Ratio] 36.3 kg/m2 [facility] 07-16-2023 09:42-0400 Body temperature 96.2 [degF] [facility] 07-16-2023 09:42-0400 Diastolic blood pressure 71 mm[Hg] [facility] 07-16-2023 09:42-0400 Heart rate 70 /min [facility] 07-16-2023 09:42-0400 Respiratory rate 16 /min [facility] 07-16-2023 09:42-0400 Systolic blood pressure 174 mm[Hg] [facility] 06-30-2023 00:20-0400 Body weight 102.[address] [facility] 06-25-2023 10:45-0400 Body height 170.[address] [facility] 06-25-2023 10:45-0400 Body mass index (BMI) [Ratio] 38.9 kg/m2 [facility] 06-25-2023 10:45-0400 Body temperature 98 [degF] [facility] 06-25-2023 10:45-0400 Body weight [address] [facility] 06-25-2023 10:45-0400 Diastolic blood pressure 85 mm[Hg] [facility] 06-25-2023 10:45-0400 Heart rate 74 /min [facility] 06-25-2023 10:45-0400 Respiratory rate 14 /min [facility] 06-25-2023 10:45-0400 SaO2% (BldA) [Mass fraction] 98 % [facility] 06-25-2023 10:45-0400 Systolic blood pressure 206 mm[Hg] [facility] 06-25-2023 09:48-0400 Body mass index (BMI) [Ratio] 36.3 kg/m2 [facility] 06-25-2023 09:48-0400 Body temperature 97 [degF] [facility] 06-25-2023 09:48-0400 Diastolic blood pressure 101 mm[Hg] [facility] 06-25-2023 09:48-0400 Heart rate 82 /min [facility] 06-25-2023 09:48-0400 Respiratory rate 20 /min [facility] 06-25-2023 09:48-0400 Systolic blood pressure 206 mm[Hg] [facility] 05-30-2023 01:32-0400 Body weight 102.[address] [facility] 05-28-2023 09:48-0400 Body mass index (BMI) [Ratio] 36.3 kg/m2 [facility] 05-28-2023 09:48-0400 Body temperature 96.5 [degF] [facility] 05-28-2023 09:48-0400 Diastolic blood pressure 76 mm[Hg] [facility] 05-28-2023 09:48-0400 Heart rate 78 /min [facility] 05-28-2023 09:48-0400 Respiratory rate 18 /min [facility] 05-28-2023 09:48-0400 Systolic blood pressure 186 mm[Hg] [facility] 04-30-2023 00:46-0400 Body weight 102.[address] [facility] 04-23-2023 09:49-0400 Body mass index (BMI) [Ratio] 36.3 kg/m2 [facility] 04-23-2023 09:49-0400 Diastolic blood pressure 101 mm[Hg] [facility] 04-23-2023 09:49-0400 Heart rate 73 /min [facility] 04-23-2023 09:49-0400 Systolic blood pressure 169 mm[Hg] [facility] 04-23-2023 09:23-0400 Body temperature 96.6 [degF] [facility] 04-23-2023 09:23-0400 Respiratory rate 18 /min [facility] 04-16-2023 08:58-0400 Body height 167.[address] [facility] 04-16-2023 08:58-0400 Body weight 102.[address] [facility] 01-21-2023 09:01-0500 Body height 167.6 cm Angelica Dye LAND ACQUISITION MANAGER Work Phone: [facility] 01-21-2023 09:01-0500 Body mass index (BMI) [Ratio] 38.76 kg/m2 Angelica Dye LAND ACQUISITION MANAGER Work Phone: [facility] 01-21-2023 09:01-0500 Body temperature 98.01 [degF] Angelica Dye LAND ACQUISITION MANAGER Work Phone: [facility] 01-21-2023 09:01-0500 Body weight 108.92 kg Angelica Dye LAND ACQUISITION MANAGER Work Phone: [facility] 01-21-2023 09:01-0500 Diastolic blood pressure 84 mm[Hg] Angelica Dye LAND ACQUISITION MANAGER Work Phone: [facility] 01-21-2023 09:01-0500 Heart rate 67 /min Angelica Dye LAND ACQUISITION MANAGER Work Phone: [facility] 01-21-2023 09:01-0500 Respiratory rate 16 /min Angelica Dye LAND ACQUISITION MANAGER Work Phone: [facility] 01-21-2023 09:01-0500 SaO2% (BldA) [Mass fraction] 98 % Angelica Dye LAND ACQUISITION MANAGER Work Phone: [facility] 01-21-2023 09:01-0500 Systolic blood pressure 198 mm[Hg] Angelica Dye LAND ACQUISITION MANAGER Work Phone: [facility] 02-19-2022 11:13-0400 Diastolic blood pressure 85 mm[Hg] Angelica Dye LAND ACQUISITION MANAGER Work Phone: [facility] 02-19-2022 11:13-0400 Systolic blood pressure 148 mm[Hg] Angelica Dye LAND ACQUISITION MANAGER Work Phone: [facility] 02-19-2022 11:08-0400 Body height 167.6 cm Angelica Dye LAND ACQUISITION MANAGER Work Phone: [facility] 02-19-2022 11:08-0400 Body mass index (BMI) [Ratio] 36.97 kg/m2 Angelica Dye LAND ACQUISITION MANAGER Work Phone: [facility] 02-19-2022 11:08-0400 Body temperature 97.7 [degF] Angelica Dye LAND ACQUISITION MANAGER Work Phone: [facility] 02-19-2022 11:08-0400 Body weight 103.9 kg Angelica Dye LAND ACQUISITION MANAGER Work Phone: [facility] 02-19-2022 11:08-0400 Heart rate 69 /min Angelica Dye LAND ACQUISITION MANAGER Work Phone: [facility] 02-19-2022 11:08-0400 Respiratory rate 16 /min Angelica Dye LAND ACQUISITION MANAGER Work Phone: [facility] 02-19-2022 11:08-0400 SaO2% (BldA) [Mass fraction] 98 % Angelica Dye LAND ACQUISITION MANAGER Work Phone: [facility] 02-03-2022 09:56-0500 Body mass index (BMI) [Ratio] 35.51 kg/m2 Angelica Dye LAND ACQUISITION MANAGER Work Phone: [facility] 02-03-2022 09:56-0500 Body weight 99.79 kg Angelica Dye LAND ACQUISITION MANAGER Work Phone: [facility] 02-03-2022 09:56-0500 Diastolic blood pressure 80 mm[Hg] Angelica Dye LAND ACQUISITION MANAGER Work Phone: [facility] 02-03-2022 09:56-0500 Systolic blood pressure 132 mm[Hg] Angelica Dye LAND ACQUISITION MANAGER Work Phone: [facility] 01-22-2022 07:52-0500 Body temperature 98.01 [degF] Lindsey Plummer MD Work Phone: [facility] 01-22-2022 07:52-0500 Diastolic blood pressure 84 mm[Hg] Lindsey Plummer MD Work Phone: [facility] 01-22-2022 07:52-0500 Heart rate 81 /min Lindsey Plummer MD Work Phone: [facility] 01-22-2022 07:52-0500 Respiratory rate 18 /min Lindsey Plummer MD Work Phone: [facility] 01-22-2022 07:52-0500 SaO2% (BldA) [Mass fraction] 98 % Lindsey Plummer MD Work Phone: [facility] 01-22-2022 07:52-0500 Systolic blood pressure 123 mm[Hg] Lindsey Plummer MD Work Phone: [facility] 01-22-2022 04:08-0500 Body mass index (BMI) [Ratio] 37.28 kg/m2 Lindsey Plummer MD Work Phone: [facility] 01-22-2022 04:08-0500 Body weight 104.78 kg Lindsey Plummer MD Work Phone: [facility] 01-21-2022 11:49-0500 Respiratory rate 0 /min Lindsey Plummer MD Work Phone: [facility] 01-21-2022 08:20-0500 Body height 167.6 cm Lindsey Plummer MD Work Phone: [facility] 01-09-2022 09:44-0500 Body height 167.6 cm Meir Arthur MD Work Phone: [facility] 01-09-2022 09:44-0500 Body mass index (BMI) [Ratio] 37.82 kg/m2 Meir Arthur MD Work Phone: [facility] 01-09-2022 09:44-0500 Body temperature 98.01 [degF] Meir Arthur MD Work Phone: [facility] 01-09-2022 09:44-0500 Body weight 106.3 kg Meir Arthur MD Work Phone: [facility] 01-09-2022 09:44-0500 Diastolic blood pressure 80 mm[Hg] Meir Arthur MD Work Phone: [facility] 01-09-2022 09:44-0500 Heart rate 78 /min Meir Arthur MD Work Phone: [facility] 01-09-2022 09:44-0500 Respiratory rate 18 /min Meir Arthur MD Work Phone: [facility] 01-09-2022 09:44-0500 SaO2% (BldA) [Mass fraction] 97 % Meir Arthur MD Work Phone: [facility] 01-09-2022 09:44-0500 Systolic blood pressure 143 mm[Hg] Meir Arthur MD Work Phone: [facility] 01-09-2022 09:36-0500 Body height 167.6 cm Lindsey Plummer MD Work Phone: [facility] 01-09-2022 09:36-0500 Body mass index (BMI) [Ratio] 37.82 kg/m2 Lindsey Plummer MD Work Phone: [facility] 01-09-2022 09:36-0500 Body temperature 98.01 [degF] Lindsey Plummer MD Work Phone: [facility] 01-09-2022 09:36-0500 Body weight 106.3 kg Lindsey Plummer MD Work Phone: [facility] 01-09-2022 09:36-0500 Diastolic blood pressure 80 mm[Hg] Lindsey Plummer MD Work Phone: [facility] 01-09-2022 09:36-0500 Heart rate 78 /min Lindsey Plummer MD Work Phone: [facility] 01-09-2022 09:36-0500 Respiratory rate 16 /min Lindsey Plummer MD Work Phone: [facility] 01-09-2022 09:36-0500 SaO2% (BldA) [Mass fraction] 97 % Lindsey Plummer MD Work Phone: [facility] 01-09-2022 09:36-0500 Systolic blood pressure 143 mm[Hg] Lindsey Plummer MD Work Phone: [facility] 06-10-2021 11:16-0400 Body height 167.6 cm Blaine Silveira MD Work Phone: [facility] 06-10-2021 11:16-0400 Body mass index (BMI) [Ratio] 36.8 kg/m2 Blaine Silveira MD Work Phone: [facility] 06-10-2021 11:16-0400 Body weight 103.42 kg Blaine Silveira MD Work Phone: [facility] 06-10-2021 11:16-0400 Diastolic blood pressure 73 mm[Hg] Blaine Silveira MD Work Phone: [facility] 06-10-2021 11:16-0400 Heart rate 73 /min Blaine Silveira MD Work Phone: [facility] 06-10-2021 11:16-0400 SaO2% (BldA) [Mass fraction] 98 % Blaine Silveira MD Work Phone: [facility] 06-10-2021 11:16-0400 Systolic blood pressure 148 mm[Hg] Blaine Silveira MD Work Phone: [facility] 06-06-2019 14:33-0400 BMI (Body Mass Index) 42.97 kg/m2 Blaine Silveira [facility] 06-06-2019 14:33-0400 Body weight 120.75 kg Blaine Silveira [facility] 06-06-2019 14:33-0400 BP Diastolic 75 mm[Hg] Blaine Silveira [facility] 06-06-2019 14:33-0400 BP Systolic 159 mm[Hg] Blaine Silveira [facility] 06-06-2019 14:33-0400 Height 167.6 cm Blaine Silveira [facility] 06-06-2019 14:33-0400 Pulse (Heart Rate) 71 /min Blaine Silveira [facility] 06-06-2019 14:33-0400 Pulse Oximetry 96 % Blaine Silveira [facility] Encounters Encounter Date Encounter Type Care Provider Facility Start: 12-19-2024 End: 12-19-2024 ambulatory Kirill Newell Facility:[facility] Start: 05-27-2024 ambulatory Kirill Newell Facility:[facility] Start: 05-27-2024 End: 05-27-2024 ambulatory Kirill Anderson Facility:[facility] Start: 03-25-2024 End: 03-29-2024 ambulatory JASS PEPE [facility] Ambulatory Start: 03-25-2024 End: 03-25-2024 Postop follow up visit related to original px Jass Pepe MD Work Phone: [facility] Comment on above: Status post total ri ght knee replacement (Primary Dx) Start: 03-11-2024 End: 03-15-2024 ambulatory [facility] Start: 03-11-2024 End: 03-11-2024 ambulatory Jass Pepe MD Work Phone: [facility] Comment on above: Status post total ri ght knee replacement (Primary Dx) Start: 03-09-2024 End: 03-13-2024 ambulatory JASS COLE [facility] Start: 03-09-2024 End: 03-09-2024 ambulatory Jass Pepe MD Work Phone: [facility] Comment on above: Status post total ri ght knee replacement (Primary Dx) Start: 03-07-2024 End: 03-11-2024 ambulatory [facility] Start: 03-07-2024 End: 03-07-2024 ambulatory Jass Pepe MD Work Phone: [facility] Comment on above: Status post total ri ght knee replacement (Primary Dx) Start: 03-04-2024 End: 03-08-2024 [facility] Start: 03-04-2024 End: 03-04-2024 ambulatory Jass Pepe MD Work Phone: [facility] Comment on above: Status post total ri ght knee replacement (Primary Dx) Start: 03-02-2024 End: 03-06-2024 [facility] Start: 03-02-2024 End: 03-02-2024 ambulatory Jass Pepe MD Work Phone: [facility] Comment on above: Status post total ri ght knee replacement (Primary Dx) Start: 02-29-2024 End: 03-04-2024 [facility] Start: 02-29-2024 End: 02-29-2024 ambulatory Jass Pepe MD Work Phone: [facility] Comment on above: Status post total ri ght knee replacement (Primary Dx) Start: 02-26-2024 End: 03-01-2024 [facility]DON[facility] Start: 02-26-2024 End: 02-26-2024 ambulatory Jass Pepe MD Work Phone: [facility] Comment on above: Status post total ri ght knee replacement (Primary Dx) Start: 02-24-2024 End: 02-28-2024 [facility] Start: 02-24-2024 End: 02-24-2024 ambulatory Jass Pepe MD Work Phone: [facility] Comment on above: Status post total ri ght knee replacement (Primary Dx) Start: 02-22-2024 End: 02-26-2024 [facility] Start: 02-22-2024 End: 02-22-2024 ambulatory Jass Pepe MD Work Phone: [facility] Comment on above: Status post total ri ght knee replacement (Primary Dx) Start: 02-19-2024 End: 02-23-2024 [facility] Start: 02-19-2024 End: 02-19-2024 ambulatory Jass Pepe MD Work Phone: [facility] Comment on above: Status post total ri ght knee replacement (Primary Dx) Start: 02-17-2024 End: 02-21-2024 ambulatory JASS MALDONADO [facility] Start: 02-17-2024 End: 02-17-2024 ambulatory Jass Pepe MD Work Phone: [facility] Comment on above: Status post total ri ght knee replacement (Primary Dx) Start: 02-15-2024 End: 02-19-2024 ambulatory JASS COLE AFSHIN [facility] Start: 02-15-2024 End: 02-15-2024 ambulatory Jass Pepe MD Work Phone: [facility] Comment on above: Status post total ri ght knee replacement Start: 02-12-2024 End: 02-12-2024 [facility] Start: 02-12-2024 End: 02-12-2024 Postop follow up visit related to original px Jass Pepe MD Work Phone: [facility] Comment on above: Status post total ri ght knee replacement (Primary Dx) Start: 02-12-2024 Home visit Kendall Graff PT [facility] Comment on above: PT OASIS DISCHARGE Start: 02-11-2024 End: 02-11-2024 Home visit Lindsey Centeno RN [facility] Comment on above: SN HH NON-OASIS/DISC IPLINE DC Start: 02-10-2024 End: 02-10-2024 Home visit Cristhian Byrnes 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 WORKER [facility] Comment on above: PASTE WORKER ROUTINE VISIT Start: 02-09-2024 End: 02-09-2024 Home visit Lisa Odell GLASS CUT OFF SUPERVISOR [facility] Comment on above: NIGEL HH ROUTINE Start: 02-08-2024 End: 02-08-2024 Refill Jass Pepe MD Work Phone: [facility] Comment on above: Status post total ri ght knee replacement (Primary Dx) PASTE WORKER ROUTINE VISIT Start: 02-05-2024 End: 02-05-2024 Home visit Cristhian Byrnes [facility] Comment on above: PASTE WORKER ROUTINE VISIT GLASS CUT OFF SUPERVISOR HH ROUTINE Start: 02-03-2024 End: 02-03-2024 Home visit Cristhian Soniya [facility] Comment on above: PASTE WORKER ROUTINE VISIT SN HH ROUTINE VISIT Start: 02-01-2024 Documentation procedure Yen gold LPN [facility] Start: 02-01-2024 End: 02-01-2024 Home visit Cristhian Byrnes [facility] Comment on above: PASTE WORKER ROUTINE VISIT Start: 01-28-2024 End: 01-28-2024 Home visit Kendall Graff PT [facility] Comment on above: PT INITIAL EVALUATIO N Start: 01-27-2024 End: 02-12-2024 ambulatory [facility] Start: 01-27-2024 End: 01-27-2024 Home visit Siena Rondon RN [facility] Comment on above: SN HH OASIS START OF CARE Start: 01-26-2024 End: 01-26-2024 ambulatory [facility] Start: 01-15-2024 End: 01-15-2024 ambulatory [facility] Start: 01-15-2024 End: 01-15-2024 Office outpatient visit 15 minutes Jass Pepe MD Work Phone: [facility] Comment on above: Osteoarthritis of ri ght knee, unspecified osteoarthritis type (Primary Dx) Start: 01-11-2024 Documentation procedure Yen gold [facility] Comment on above: 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) Start: 01-07-2024 End: 01-11-2024 ambulatory [facility] Start: 12-14-2023 End: 12-14-2023 ambulatory [facility] Work Phone: Start: 12-14-2023 End: 12-14-2023 Patient encounter procedure [facility] Work Phone: Start: 11-12-2023 End: 11-12-2023 ambulatory [facility] Work Phone: Start: 11-12-2023 End: 11-12-2023 Patient encounter procedure [facility] Work Phone: Start: 11-09-2023 End: 11-10-2023 ambulatory [facility] Start: 11-04-2023 End: 11-05-2023 ambulatory JAVI [facility] Start: 11-02-2023 End: 11-03-2023 ambulatory [facility] Start: 10-28-2023 End: 10-29-2023 ambulatory [facility] Start: 10-26-2023 End: 10-27-2023 ambulatory [facility] Start: 10-21-2023 End: 10-22-2023 ambulatory [facility] Start: 10-20-2023 End: 10-20-2023 ambulatory NICOL [facility] Ambulatory Start: 10-20-2023 End: 10-20-2023 Office outpatient visit 25 minutes Blaine Silveira MD Work Phone: [facility] Comment on above: Coronary artery dise ase involving [place] coronary artery of [place] heart without angina pectoris (Primary Dx); Osteoarthritis of right knee, unspecified osteoarthritis type; Severe aortic insufficiency Start: 10-19-2023 End: 10-20-2023 ambulatory JAVI [facility] Start: 10-14-2023 End: 10-15-2023 ambulatory JAVI [facility] Start: 10-12-2023 End: 10-13-2023 ambulatory [facility] Start: 10-09-2023 End: 10-10-2023 ambulatory [facility] Start: 10-07-2023 End: 10-08-2023 ambulatory JAVI [facility] Start: 09-29-2023 End: 09-29-2023 ambulatory JAVI [facility] Start: 09-25-2023 [facility]mission [facility] Jass Pepe MD Work Phone: [facility] Comment on above: Osteoarthritis of ri ght knee, unspecified osteoarthritis type (Primary Dx); Hypertension, unspecified type Start: 09-14-2023 End: 09-18-2023 ambulatory NICOL IBANEZ [facility] Start: 07-16-2023 End: 07-16-2023 ambulatory [facility] Work Phone: Start: 07-16-2023 End: 07-16-2023 [facility] Work [facility]: Start: 06-25-2023 End: 06-25-2023 Emergency department patient visit [facility] Work Phone: Start: 06-25-2023 End: 06-29-2023 ambulatory [facility] Work Phone: Start: 06-25-2023 End: 06-29-2023 Discharged Recurring [facility] Work Phone: Start: 06-25-2023 Registered Recurring [facility] Work Phone: Start: 05-28-2023 End: 05-29-2023 ambulatory [facility] Work Phone: Start: 05-28-2023 End: 05-29-2023 Discharged Recurring [facility] Work Phone: Start: 04-23-2023 End: 04-29-2023 ambulatory [facility] Work Phone: Start: 04-23-2023 End: 04-29-2023 [facility] Start: 01-22-2023 ambulatory TERRIE [facility] Start: 01-21-2023 End: 01-25-2023 ambulatory NICOL IBANEZ [facility] Start: 01-21-2023 End: 01-22-2023 ambulatory ANGELICA RANDALL [facility] Start: 01-21-2023 End: 01-21-2023 Office outpatient visit 25 minutes Angelica Randall CNP Work Phone: [facility] Comment on above: S/P TAVR (transcathe ter aortic valve replacement) (Primary Dx); Hypertension, unspecified type Start: 06-19-2022 Orders Only Terrie Núñez [facility] Comment on above: S/P TAVR (transcathe ter aortic valve replacement) (Primary Dx) Start: 05-14-2022 ambulatory [id number] Start: 05-12-2022 ambulatory [id number] Start: 05-09-2022 ambulatory [id number] Start: 05-07-2022 ambulatory [id number] Start: 05-05-2022 ambulatory [id number] Start: 05-02-2022 ambulatory [id number] Start: 04-30-2022 ambulatory [id number] Start: 04-25-2022 ambulatory [id number] Start: 04-23-2022 ambulatory [id number] Start: 04-21-2022 ambulatory [id number] Start: 04-18-2022 ambulatory [id number] Start: 04-16-2022 ambulatory [id number] Start: 04-14-2022 ambulatory [id number] Start: 04-11-2022 ambulatory [id number] Start: 04-09-2022 ambulatory [id number] Start: 04-07-2022 ambulatory [id number] Start: 04-02-2022 Orders Only Blaine hines MD Work Phone: [facility] Start: 03-31-2022 ambulatory [id number] Start: 03-28-2022 ambulatory [id number] Start: 03-26-2022 ambulatory [id number] Start: 03-24-2022 ambulatory [id number] Start: 03-21-2022 ambulatory [id number] Start: 03-19-2022 ambulatory [id number] Start: 03-14-2022 ambulatory [id number] Start: 03-12-2022 ambulatory [id number] Start: 03-10-2022 ambulatory [id number] Start: 03-07-2022 ambulatory [id number] Start: 03-05-2022 ambulatory Robert [id number] Start: 03-03-2022 ambulatory [id number] Start: 02-28-2022 ambulatory [id number] Start: 02-26-2022 ambulatory [id number] Start: 02-24-2022 ambulatory [id number] Start: 02-21-2022 ambulatory [id number] Start: 02-19-2022 End: 02-23-2022 [facility] Start: 02-19-2022 End: 02-19-2022 Office outpatient visit 15 minutes Angelica Randall LAND ACQUISITION MANAGER Work Phone: [facility] Comment on above: S/P TAVR (transcathe ter aortic valve replacement) (Primary Dx) Start: 02-17-2022 ambulatory Rboert P[facility] [id number] Start: 02-14-2022 ambulatory [id number] Start: 02-12-2022 ambulatory [id number] Start: 02-10-2022 ambulatory [id number] Start: 02-03-2022 End: 02-03-2022 Phys/qhp telephone evaluation 11-20 min Angelica Randall LAND ACQUISITION MANAGER Work Phone: [facility] Comment on above: S/P TAVR (transcathe ter aortic valve replacement) (Primary Dx) Start: 01-22-2022 Orders Only Terrie Núñez [facility] Comment on above: S/P TAVR (transcathe ter aortic valve replacement) (Primary Dx) S/P TAVR (transcathe ter aortic valve replacement) (Primary Dx); Shortness of breath Start: 01-21-2022 End: 01-22-2022 Evaluation and management of inpatient Lindsey Plummer MD Work Phone: [facility] Start: 01-14-2022 Orders for Hospital Mikaela Reynold Leal LAND ACQUISITION MANAGER Work Phone: [facility] Start: 01-13-2022 Orders Only Angelica Han LAND ACQUISITION MANAGER Work Phone: [facility] Comment on above: Encounter for prepro cedure screening laboratory testing for COVID-19 (Primary Dx) Start: 01-13-2022 Patient encounter status Muriel zuniga RN [facility] Start: 01-10-2022 Orders Only Clau Michaud RN [facility] Comment on above: Aortic valve stenosi s, severe (Primary Dx); Severe aortic insufficiency Start: 01-09-2022 Orders Only Terrie Oh RN [facility] Comment on above: Encounter for preope rative screening laboratory testing for COVID-19 virus (Primary Dx) Start: 01-09-2022 End: 01-09-2022 Patient encounter status Terrie Oh RN [facility] Start: 01-09-2022 End: 01-09-2022 Office outpatient new 45 minutes Meir Arthur MD Work Phone: [facility] Comment on above: Severe aortic insuff iciency (Primary Dx); Aortic valve stenosis, severe; Pre-operative cardiovascular examination Aortic valve stenosi s, severe; Pre-operative cardiovascular examination Start: 01-07-2022 Orders for Hospital Terrie naik RN [facility] Comment on above: Aortic valve stenosi s, severe (Primary Dx); Pre-operative cardiovascular examination; Other abnormal findings in urine ; Abnormal coagulation profile ; Dyspnea, unspecified type ; Abnormal finding of blood chemistry, unspecified Start: 01-07-2022 Patient encounter status Terrie Warren RN [facility] Start: 01-01-2022 Orders Only Terrie Oh RN [facility] Comment on above: Encounter for prepro cedure screening laboratory testing for COVID-19 (Primary Dx) Start: 01-01-2022 Patient encounter status Terrie Warren RN [facility] Start: 12-31-2021 Orders Only Terrie Oh RN [facility] Comment on above: Aortic valve stenosi s, severe (Primary Dx); Pre-operative cardiovascular examination; Other specified symptoms and signs involving the circulatory and respiratory systems Start: 12-31-2021 Patient encounter status Terrie Warren RN [facility] Start: 06-24-2021 End: 06-24-2021 Orders Only Iliana Madsen RN [facility] Comment on above: Nonrheumatic aortic valve insufficiency (Primary Dx) Start: 06-10-2021 End: 06-10-2021 Orders Only Iliana Madsen RN [facility] Comment on above: Coronary artery dise ase involving [place] coronary artery of [place] heart without angina pectoris (Primary Dx) Nonrheumatic aortic valve insufficiency (Primary Dx) Start: 06-10-2021 End: 06-10-2021 Office outpatient visit 25 minutes Blaine Silveira MD Work Phone: [facility] Comment on above: Coronary artery dise ase involving [place] coronary artery of [place] heart without angina pectoris; Nonrheumatic aortic valve insufficiency; Elevated sed rate; Mixed hyperlipidemia Start: 01-23-2021 End: 01-23-2021 Orders Only Mustapha Al Work Phone: [facility] Start: 06-14-2019 End: 06-14-2019 Subsequent hospital visit by physician Blaine Silveira Work Phone: [facility] Comment on above: Nonrheumatic aortic valve insufficiency Start: 06-06-2019 End: 06-06-2019 Office outpatient visit 25 minutes Blaine Silveira Work Phone: [facility] Comment on above: SOB (shortness of br eath); Coronary artery disease involving [place] coronary artery of [place] heart without angina pectoris; Fibrosing mediastinitis; Nonrheumatic aortic valve insufficiency Start: 01-05-2018 Ambulatory Blaine Silveira Facil [facility]:[email or web address] Start: 01-05-2018 End: 01-05-2018 Ambulatory Blaine Silveira Work Phone: [facility] Procedures Date Procedure Procedure Detail Performing Clinician Start: 12-14-2023 Plain chest X-ray Start: 11-09-2023 FOLLOW UP IN PHYSICAL THERAPY [facility] Start: 11-04-2023 FOLLOW UP IN PHYSICAL THERAPY [facility] Start: 11-02-2023 FOLLOW UP IN PHYSICAL THERAPY [facility] Start: 10-28-2023 FOLLOW UP IN PHYSICAL THERAPY [facility] Start: 10-26-2023 FOLLOW UP IN PHYSICAL THERAPY [facility] Start: 10-21-2023 FOLLOW UP IN PHYSICAL THERAPY [facility] Start: 10-19-2023 FOLLOW UP IN PHYSICAL THERAPY [facility] Start: 10-14-2023 FOLLOW UP IN PHYSICAL THERAPY [facility] Start: 10-12-2023 FOLLOW UP IN PHYSICAL THERAPY [facility] Start: 10-09-2023 FOLLOW UP IN PHYSICAL THERAPY [facility] Start: 10-07-2023 FOLLOW UP IN PHYSICAL THERAPY [facility] Start: 09-29-2023 AMB REFERRAL TO PHYSICAL THERAPY [facility] Start: 01-21-2023 Ecg routine ecg w/least 12 lds trcg only w/o i&r Angelica Claudia Tonia LAND ACQUISITION MANAGER Work Phone: Start: 02-19-2022 Ecg routine ecg w/least 12 lds trcg only w/o i&r Angelica Claudia Dye LAND ACQUISITION MANAGER Work Phone: Start: 01-22-2022 Ecg routine ecg w/least 12 lds trcg only w/o i&r Angelicaarmen Hsieh Dye LAND ACQUISITION MANAGER Work Phone: Start: 01-22-2022 Basic metabolic panel calcium total Angelica Hsieh Dye LAND ACQUISITION MANAGER Work Phone: Start: 01-21-2022 Potassium serum plasma/whole blood Agnelica Hsieh Dye LAND ACQUISITION MANAGER Work Phone: Start: 01-21-2022 Dup-scan lxtr art/artl bpgs uni/lmtd study Angelica Randall LAND ACQUISITION MANAGER Work Phone: Start: 01-21-2022 Basic metabolic panel calcium total Angelica Randall LAND ACQUISITION MANAGER Work Phone: Start: 01-21-2022 Radiologic exam chest single view Angelica Randall LAND ACQUISITION MANAGER Work Phone: Start: 01-21-2022 Ecg routine ecg w/least 12 lds trcg only w/o i&r Angelicaarmen Randall LAND ACQUISITION MANAGER Work Phone: Start: 01-21-2022 Cardiac catheterization Angelica Randall LAND ACQUISITION MANAGER Work Phone: Start: 01-21-2022 2D TTE w or w/o fol w/con,fu Mikaela Leal LAND ACQUISITION MANAGER Work Phone: Start: 01-21-2022 Sodium serum plasma or whole blood Lindsey Plummer MD Work Phone: Start: 01-21-2022 End: 01-21-2022 TRANSCATHETER AORTIC VALVE REPLACEMENT FEMORAL APPROACH Meir Arthur MD Work Phone: Start: 01-21-2022 Basic metabolic panel calcium total Mikaela Leal LAND ACQUISITION MANAGER Work Phone: Start: 01-21-2022 Packed RBC preparation Mikaela lópez LAND ACQUISITION MANAGER Work Phone: Start: 01-09-2022 Ecg routine ecg w/least 12 lds trcg only w/o i&r Angelica Claudia Randall LAND ACQUISITION MANAGER Work Phone: Start: 06-10-2021 Ecg routine ecg w/least 12 lds w/i&r Blaine Silveira MD Work Phone: Start: 06-14-2019 Echocardiography Blaine Silveira Work Phone: Start: 06-06-2019 12 lead ECG Blaine Silveira Work Phone: Start: 01-05-2018 End: 01-05-2018 Tte w/doppler, complete Blaine malcolm Work Phone: History of coronary artery bypass grafting Status post double vessel coronary artery bypass Plan of Treatment Date Care Activity Detail Author Start: 11-07-2026 Tetanus vaccination [facility] Start: 09-13-2024 Fall risk assessment Falls Risk Assessment [facility] Start: 03-18-2024 End: 03-18-2024 Follow-up encounter 03/18/2024 2:30 PM EDT Follow-Up [facility] [address] [id number] Jass Pepe MD [address] [place] [address] [facility] Start: 03-11-2024 End: 03-11-2024 ambulatory [facility] Start: 03-09-2024 End: 03-09-2024 ambulatory [facility] Start: 03-07-2024 End: 03-07-2024 ambulatory [facility] Start: 03-04-2024 End: 03-04-2024 ambulatory 03/04/2024 10:45 AM EDT Treatment [facility] [address] [place] [id number] Jass Pepe MD [address] [place] [address] Gabriel Tovar PTA [facility] Start: 03-02-2024 End: 03-02-2024 ambulatory 03/02/2024 10:45 AM EDT Treatment [facility] [address] [phone] Jass Pepe MD [address] [place] [address] Dajuan Arroyo, PT [facility] Start: 02-29-2024 End: 02-29-2024 ambulatory 02/29/2024 10:45 AM EDT Treatment [facility] [address] [phone] Jass Pepe MD [address] [place] [address] Gabriel Tovar [facility] Start: 02-26-2024 End: 02-26-2024 ambulatory 02/26/2024 10:45 AM EDT Treatment [facility] [address] [place] [address] Jass Pepe MD [address] [place] [address] Sherlyn Villavicencio [facility] Start: 02-24-2024 End: 02-24-2024 ambulatory 02/24/2024 10:45 AM EDT Treatment [facility] [address] [place] [address] Jass Pepe MD [address] [place] [address] Gabriel Tovar [facility] Start: 02-22-2024 End: 02-22-2024 ambulatory 02/22/2024 10:45 AM EDT Treatment [facility] [address] [place] [address] Jass Pepe MD [address] [phone] Dajuan Arroyo, PT [facility] Start: 02-19-2024 End: 02-19-2024 ambulatory 02/19/2024 10:45 AM EDT Treatment [facility] [address] [place] [address] Jass Pepe MD [address] [place] [address] Gabriel Tovar PTA [facility] Start: 02-17-2024 End: 02-17-2024 ambulatory 02/17/2024 10:45 AM EDT Treatment [facility] [address] [place] [address] Jass Pepe MD [address] [place] [address] Gabriel Tovar PTA Discharge Disposition: Home [facility] Start: 02-15-2024 End: 02-15-2024 ambulatory 02/15/2024 10:45 AM EDT Evaluation [facility] [address] [place] [address] Jass Pepe MD [address] [place] [address] Dajuan Arroyo, PT Discharge Disposition: Home [facility] Start: 02-12-2024 End: 02-12-2024 Follow-up encounter 02/12/2024 2:15 PM EDT Follow-Up [facility] [address] [place] [address] Jass Pepe MD [address] [place] [address] [facility] Start: 02-12-2024 End: 02-12-2024 Home visit 02/12/2024 8:00 AM EDT Home Care Visit [address] [phone] Kendall Graff, PT [facility] Start: 02-11-2024 End: 02-11-2024 Patient encounter procedure [facility] Start: 02-11-2024 End: 02-11-2024 Home visit 02/11/2024 3:30 AM EDT Home Care Visit [address] [place] [phone] Kendall Graff, PT [facility] Start: 02-11-2024 End: 02-11-2024 Patient encounter procedure 02/11/[address] [phone] Lindsey Centeno RN [facility] Start: 02-10-2024 End: 02-10-2024 Home visit 02/10/2024 10:00 AM EDT Home Care Visit [place] [phone] Cristhian Byrnes PTA [facility] Start: 02-09-2024 End: 02-10-2024 Home visit [facility] Start: 02-08-2024 End: 02-09-2024 Home visit [facility] Start: 02-05-2024 End: 02-05-2024 Home visit 02/05/2024 10:00 AM EST Home Care Visit [address] [place] [phone] Cristhian Byrnes PTA [facility] Start: 02-05-2024 End: 02-05-2024 Home visit [facility] Start: 02-03-2024 End: 02-03-2024 Home visit 02/03/2024 11:00 AM EST Home Care Visit [address] [phone] Cristhian Byrnes PTA [facility] Start: 02-03-2024 End: 02-03-2024 Home visit 02/03/2024 Home Care Visit [address] [phone] Cristhian Byrnes PTA [facility] Start: 01-28-2024 End: 01-28-2024 Home visit [facility] Start: 01-26-2024 End: 01-26-2024 Admission to same day surgery center 01/26/2024 2:11 PM EST - 01/26/2024 4:14 PM EST Surgery [facility] [address] [facility] [place] [address] Jass Pepe MD [address] [place] [address] Right total knee replacement Robotic [facility] Comment on above: Right total knee replacement Robotic Start: 01-26-2024 End: 01-26-2024 ARTHROPLASTY KNEE TOTAL ROBOTIC ARTHROPLASTY KNEE TOTAL ROBOTIC Osteoarthritis of right knee, unspecified osteoarthritis type 01/26/2024 2:11 PM EST [facility] Start: 01-26-2024 Subsequent hospital visit by physician 01/26/2024 2:11 PM EST Hospital Encounter [facility] [address] [facility] [place] [address] Jass Pepe MD [address] [place] [address] [facility] Start: 01-15-2024 End: 01-15-2024 Patient encounter procedure 01/15/2024 1:15 PM EST Surgical Consult [facility] [address] [place] [address] Jass Pepe MD [address] [place] [address] [facility] Start: 2023 End: 2023 Admission to same day surgery center 2023 7:05 AM EST - 2023 9:08 AM EST Surgery [facility] [address] [facility] [place] [address] Jass Pepe MD [address] [place] [address] Right total knee replacement Robotic [facility] Comment on above: Right total knee replacement Robotic Start: 2023 End: 2023 ARTHROPLASTY KNEE TOTAL ROBOTIC ARTHROPLASTY KNEE TOTAL ROBOTIC Osteoarthritis of right knee, unspecified osteoarthritis type 2023 7:05 AM EST [facility] Start: 2023 Subsequent hospital visit by physician [facility] Start: 12-11-2023 End: 12-11-2023 Patient encounter procedure 12/11/2023 1:00 PM EST Surgical Consult [facility] [address] [place] [address] Jass Pepe MD [address] [place] [address] [facility] Start: 12-03-2023 End: 12-03-2023 Patient encounter procedure 12/03/2023 10:30 AM EST Appointment [facility] CT Scan [address] [place] [address] Jass Pepe MD [address] [place] [address] [facility] [address] Scan Start: 12-03-2023 End: 12-03-2023 Patient encounter procedure 12/03/2023 7:15 AM EST Office Visit [facility] Preadmission Testing [address] [place] [address] [facility] Start: 11-30-2023 Administration of herpes zoster vaccine Zoster Vaccines (2 of 2) [facility] Start: 07-31-2023 COVID-19 Vaccine ( season) COVID-19 Vaccine ( season) [facility] Start: 07-31-2023 Influenza vaccination Sequential Influenza Vaccine (#1) [facility] Start: 06-25-2023 Simple repair f/e/e/n/l/m 2.5cm/< RPR F/E/E/N/L/M 2.5 CM/< [facility] Start: 01-21-2023 End: 01-21-2023 Patient encounter procedure [facility] Start: 07-31-2022 Influenza vaccination Sequential Influenza Vaccine (#1) [facility] Start: 04-28-2022 COVID-19 Vaccine (5 - Booster for Pfizer series) COVID-19 Vaccine (5 - Booster for Pfizer series) [facility] Start: 04-04-2022 End: 04-04-2022 Patient encounter procedure 04/04/2022 Office Visit Cardiology Blaine Silveira MD [address] [facility] [address] [place] [address] [facility] Start: 02-19-2022 End: 02-19-2022 Patient encounter procedure [facility] Start: 02-03-2022 End: 02-03-2022 Telemedicine consultation with patient 02/03/2022 Telemedicine Telephone Cardiology Angelica Randall, LAND ACQUISITION MANAGER [address] [phone] [facility] Start: 01-21-2022 End: 01-21-2022 Admission to same day surgery center 01/21/2022 Surgery Lindsey Plummer MD [address] [facility] [address] [place] [address] Transcatheter Aortic Valve Replacement [facility] Comment on above: Transcatheter Aortic Valve Replacement Start: 01-21-2022 Subsequent hospital visit by physician 01/21/2022 Hospital Encounter Lindsey Plummer MD [address] [facility] [address] [place] [address] [facility] Start: 01-21-2022 End: 01-21-2022 TRANSCATHETER AORTIC VALVE REPLACEMENT FEMORAL APPROACH TRANSCATHETER AORTIC VALVE REPLACEMENT FEMORAL APPROACH severe aortic stenosis 01/21/2022 10:30 AM EST [facility] Start: 01-17-2022 End: 01-17-2022 Patient encounter procedure 01/17/2022 Office Visit Lab DyeAngelica, LAND ACQUISITION MANAGER [address] [place] [address] [facility] Start: 01-15-2022 End: 01-15-2022 Admission to same day surgery center [facility] Roof Bolter Comment on above: Left Heart Cath Possbile PTCA/Stent LEFT HEART CATH Start: 01-15-2022 Subsequent hospital visit by physician 01/15/2022 Hospital Encounter Silvio Mckeon MD [address] [facility] [address] [place] [address] [facility] Procedural Care Unit Start: 01-09-2022 End: 01-10-2022 Patient encounter procedure [facility] Start: 01-09-2022 Subsequent hospital visit by physician [facility] CT Start: 01-06-2022 End: 01-06-2022 Patient encounter procedure 01/06/2022 Office Visit Lab Angelica Randall, LAND ACQUISITION MANAGER [address] [place] [id number] [facility] Start: 12-25-2021 End: 08-25-2022 Echocardiography Echocardiogram complete Echocardiography Routine Nonrheumatic aortic valve insufficiency Expected: 12/25/2021 (Approximate), Expires: 08/25/2022 [facility] Comment on above: Expected: 12/25/2021 (Approximate), Expi res: 08/25/2022 Start: 07-31-2021 Influenza vaccination Sequential Influenza Vaccine (#1) [facility] Start: 06-21-2021 End: 06-21-2021 Patient encounter procedure 06/21/2021 Appointment Cardiology Blaine Silveira MD [address] [facility] [address] [place] [address] [phone] [facility] Start: 05-25-2021 Pneumococcal vaccination Pneumococcal Vaccine Age 65+ (2 of 2 - PPSV23) [facility] Start: 07-31-2020 Influenza vaccination given Sequential Influenza Vaccine (#1) [facility] Start: 2019 Fall risk assessment Falls Risk Assessment [facility] Start: 07-31-2019 Influenza vaccination given SEQUENTIAL INFLUENZA VACCINE (#1) [facility] Start: 06-14-2019 End: 06-14-2019 Appointment 06/14/2019 Appointment Cardiology Blaine Silveira MD [address] [place] [address] [phone] [facility] Start: 07-31-2017 Influenza vaccination SEQUENTIAL INFLUENZA VACCINE (#1) [facility] Work Phone: Start: 2014 Zoster vacc, sc ZOSTER VACCINE [facility] Work Phone: Start: 2004 Administration of herpes zoster vaccine Zoster Vaccines (1 of 2) [facility] Start: 2004 Screening for malignant neoplasm of colon [facility] Start: 1994 Screening for malignant neoplasm of breast Mammogram [facility] Start: 1994 Screening mammography Mammogram [facility] Start: 1970 COVID-19 Vaccine (1 of 2) COVID-19 Vaccine (1 of 2) [facility] Start: 1966 Adolescent depression screening assessment Depression Screening (PHQ9) [facility] Start: 1966 Depression screening using PHQ-9 (Patient Health Questionnaire 9) score [facility] Start: 1960 Pneumococcal Vaccine: Age 65+ (1 of 2 - PPSV23) Pneumococcal Vaccine: Age 65+ (1 of 2 - PPSV23) [facility] Start: 1957 History and physical examination, annual for health maintenance Wellness Visit [facility] Start: 1954 Fall risk assessment Falls Risk Assessment [facility] Start: 1954 Physical therapy management PT Plan of Care [facility] Start: 1954 Screening colonoscopy COLONOSCOPY [facility] Work Phone: Start: 1954 Screening for malignant neoplasm of cervix PAP SMEAR [facility] Work Phone: Start: 1954 Screening for malignant neoplasm of colon [facility] Start: 1954 Screening for osteoporosis Dexa Scan [facility] Start: 1954 Screening mammography Mammogram [facility] Start: 1954 Tetanus vaccination TETANUS EVERY 10 YR [facility] Work Phone: End: 12-31-2022 12 lead ECG ECG 12 Lead ECG Routine Aortic valve stenosis, severe Pre-operative cardiovascular examination 1 Occurrences starting 12/31/2021 until 12/31/2022 [facility] Comment on above: 1 Occurrences starting 12/31/2021 until 12/31/2022 End: 01-22-2023 12 lead ECG ECG 12 Lead ECG Routine S/P TAVR (transcatheter aortic valve replacement) 1 Occurrences starting 01/22/2022 until 01/22/2023 [facility] Comment on above: 1 Occurrences starting 01/22/2022 until 01/22/2023 End: 06-19-2023 12 lead ECG ECG 12 Lead ECG Routine S/P TAVR (transcatheter aortic valve replacement) 1 Occurrences starting 06/19/2022 until 06/19/2023 [facility] Comment on above: 1 Occurrences starting 06/19/2022 until 06/19/2023 End: 09-25-2024 12 lead ECG ECG 12 Lead ECG Routine Osteoarthritis of right knee, unspecified osteoarthritis type 1 Occurrences starting 09/27/2023 until 09/25/2024 [facility] Comment on above: 1 Occurrences starting 09/27/2023 until 09/25/2024 ARTHROPLASTY KNEE TO FARIHA ROBOTIC ARTHROPLASTY KNEE TOTAL ROBOTIC Osteoarthritis of right knee, unspecified osteoarthritis type [facility] End: 02-13-2023 Basic metabolic 2000 panel - Serum or Plasma Basic metabolic panel Lab Routine S/P TAVR (transcatheter aortic valve replacement) 1 Occurrences starting 02/13/2022 until 02/13/2023 [facility] Comment on above: 1 Occurrences starting 02/13/2022 until 02/13/2023 End: 01-19-2024 Basic metabolic 2000 panel - Serum or Plasma Basic metabolic panel Lab Routine S/P TAVR (transcatheter aortic valve replacement) 1 Occurrences starting 01/19/2023 until 01/19/2024 [facility] Comment on above: 1 Occurrences starting 01/19/2023 until 01/19/2024 End: 09-25-2024 Basic metabolic 2000 panel - Serum or Plasma Basic metabolic panel Lab Routine Osteoarthritis of right knee, unspecified osteoarthritis type 1 Occurrences starting 09/27/2023 until 09/25/2024 [facility] Comment on above: 1 Occurrences starting 09/27/2023 until 09/25/2024 Cardiac catheterization Cardiac Catheterization Cardiac Cath Routine 01/21/2022 12:46 PM EST [facility] End: 02-28-2023 Carotid artery doppler assessment Carotid Duplex Vascular Ultrasound Routine Aortic valve stenosis, severe Pre-operative cardiovascular examination Other specified symptoms and signs involving the circulatory and respiratory systems 1 Occurrences starting 12/31/2021 until 02/28/2023 [facility] Comment on above: 1 Occurrences starting 12/31/2021 until 02/28/2023 End: 02-13-2023 CBC panel - Blood by Automated count CBC Lab Routine S/P TAVR (transcatheter aortic valve replacement) 1 Occurrences starting 02/13/2022 until 02/13/2023 [facility] Comment on above: 1 Occurrences starting 02/13/2022 until 02/13/2023 End: 01-19-2024 CBC panel - Blood by Automated count CBC Lab Routine S/P TAVR (transcatheter aortic valve replacement) 1 Occurrences starting 01/19/2023 until 01/19/2024 [facility] Comment on above: 1 Occurrences starting 01/19/2023 until 01/19/2024 End: 09-25-2024 Complete blood count with white cell differential, manual CBC and differential Lab Routine Osteoarthritis of right knee, unspecified osteoarthritis type Hypertension, unspecified type 1 Occurrences starting 09/27/2023 until 09/25/2024 [facility] Comment on above: 1 Occurrences starting 09/27/2023 until 09/25/2024 End: 12-31-2022 Complete PFT with pre and post bronchodilators Complete PFT with pre and post bronchodilators PFT Routine Aortic valve stenosis, severe Pre-operative cardiovascular examination 1 Occurrences starting 12/31/2021 until 12/31/2022 [facility] Work Phone: Comment on above: 1 Occurrences starting 12/31/2021 until 12/31/2022 End: 09-25-2024 CT Knee Right Without Contrast CT Knee Right Without Contrast Imaging Routine Osteoarthritis of right knee, unspecified osteoarthritis type 1 Occurrences starting 09/27/2023 until 09/25/2024 [facility] Comment on above: 1 Occurrences starting 09/27/2023 until 09/25/2024 End: 06-06-2020 Echocardiography Echocardiogram complete Echocardiography Routine Nonrheumatic aortic valve insufficiency 1 Occurrences starting 06/06/2019 until 06/06/2020 [facility] Comment on above: 1 Occurrences starting 06/06/2019 until 06/06/2020 End: 08-11-2022 Echocardiography Echocardiogram complete Echocardiography Routine Nonrheumatic aortic valve insufficiency 1 Occurrences starting 06/10/2021 until 08/11/2022 [facility] Comment on above: 1 Occurrences starting 06/10/2021 until 08/11/2022 End: 03-22-2023 Echocardiography Echocardiogram complete Echocardiography Routine S/P TAVR (transcatheter aortic valve replacement) 1 Occurrences starting 01/22/2022 until 03/22/2023 [facility] Work Phone: Comment on above: 1 Occurrences starting 01/22/2022 until 03/22/2023 End: 01-22-2022 Echocardiography Echocardiogram complete Echocardiography Routine Once for 1 Occurrences starting 01/22/2022 until 01/22/2022 [facility] Work Phone: Comment on above: Once for 1 Occurrences starting 01/22/20 until 01/22/2022 Echocardiography Echocardiogram complete Echocardiography Routine 01/22/2022 10:04 AM EST [facility] End: 08-20-2023 Echocardiography Echocardiogram complete Echocardiography Routine S/P TAVR (transcatheter aortic valve replacement) 1 Occurrences starting 06/19/2022 until 08/20/2023 [facility] Work Phone: Comment on above: 1 Occurrences starting 06/19/2022 until 08/20/2023 End: 09-25-2024 Incentive spirometry - Initial Instruction Incentive spirometry - Initial Instruction Respiratory Care Routine Osteoarthritis of right knee, unspecified osteoarthritis type 1 Occurrences starting 09/27/2023 until 09/25/2024 [facility] Work Phone: Comment on above: 1 Occurrences starting 09/27/2023 until 09/25/2024 End: 12-31-2022 Methicillin resistant Staphylococcus aureus [Presence] in Unspecified specimen by Organism specific culture MRSA Culture/Screen Microbiology Routine Aortic valve stenosis, severe Pre-operative cardiovascular examination 1 Occurrences starting 12/31/2021 until 12/31/2022 [facility] Comment on above: 1 Occurrences starting 12/31/2021 until 12/31/2022 Methicillin resistan t Staphylococcus aureus [Presence] in Unspecified specimen by Organism specific culture MRSA Culture/Screen Microbiology Routine Aortic valve stenosis, severe Pre-operative cardiovascular examination 01/09/2022 9:45 AM EST [facility] Work Phone: End: 09-25-2024 Methicillin resistant Staphylococcus aureus [Presence] in Unspecified specimen by Organism specific culture MRSA Culture Microbiology Routine Osteoarthritis of right knee, unspecified osteoarthritis type 1 Occurrences starting 09/27/2023 until 09/25/2024 [facility] Comment on above: 1 Occurrences starting 09/27/2023 until 09/25/2024 End: 02-13-2023 Natriuretic peptide.B prohormone N-Terminal [Mass/volume] in Serum or Plasma NT PRO BNP Lab Routine S/P TAVR (transcatheter aortic valve replacement) Shortness of breath 1 Occurrences starting 02/13/2022 until 02/13/2023 [facility] Comment on above: 1 Occurrences starting 02/13/2022 until 02/13/2023 Patient Education ED Head Injury (Adult) ED Laceration: All Closures [facility] Work Phone: Patient referral [facility] Work Phone: End: 06-11-2022 Radionuclide myocardial perfusion study NM Myocardial Perfusion Multiple SPECT Imaging Routine Coronary artery disease involving [place] coronary artery of [place] heart without angina pectoris 1 Occurrences starting 06/10/2021 until 06/11/2022 [facility] Comment on above: 1 Occurrences starting 06/10/2021 until 06/11/2022 End: 01-09-2023 SARS-CoV-2 (COVID-19) RdRp gene [Presence] in Respiratory specimen by MAXIMUS with probe detection COVID-19, Molecular Microbiology Routine Encounter for preoperative screening laboratory testing for COVID-19 virus 1 Occurrences starting 01/09/2022 until 01/09/2023 [facility] Work Phone: Comment on above: 1 Occurrences starting 01/09/2022 until 01/09/2023 End: 01-13-2023 SARS-CoV-2 (COVID-19) RdRp gene [Presence] in Respiratory specimen by MAXIMUS with probe detection COVID-19, Molecular Microbiology Routine Encounter for preprocedure screening laboratory testing for COVID-19 1 Occurrences starting 01/13/2022 until 01/13/2023 [facility] Work Phone: Comment on above: 1 Occurrences starting 01/13/2022 until 01/13/2023 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 Vascular Ultrasound Routine 01/21/2022 2:16 PM EST [facility] Payers Date Payer Category Payer Self-pay [id number] 2019 Medicare MEDICARE MEDICAR E PART A & B [id number] 2019-Present [place] [id number] .[id number] 2019 Medicare MEDICARE MEDICAR E PART A & B [id number] 2019-Present [phone] S J15 PART A CLAIMS [address] [address] [place] [address] 1.2.840.898511.1.13.385.2.7.3 .335939.315 2019 Medicare [id number] 2019 Unknown [id number] 2000 Unknown [id number] 2.16.840.1.034571.3.249.13 2000 Unknown [facility] UHC/UHONE/GO LDEN RULE xxxxxxxxx 2000-Present xxxxxxxxx 1.2.840.078758.1.13.385.2.7.3 .648652.315 1954 Unknown [id number] 2.16.840.1.259714.3.579.2.106 9 1954 Unknown [id number] 2.16.840.1.918396.3.579.2.106 9 1954 Unknown [id number] 2.16.840.1.999009.3.579.2.106 9 1954 Unknown [id number] 2.16.840.1.732153.3.579.2.106 9 1954 Unknown [id number] 2.16.840.1.736344.3.579.2.106 9 1954 Unknown [id number] 2.16.840.1.966493.3.579.2.106 9 1954 Unknown [id number] 2.16.840.1.592130.3.579.2.106 9 1954 Unknown [id number] 2.16.840.1.817816.3.579.2.106 9 1954 Unknown [id number] 2.16.840.1.181301.3.579.2.106 9 1954 Unknown [id number] 2.16.840.1.968609.3.579.2.106 9 1954 Unknown [id number] 2.16.840.1.932506.3.579.2.106 9 1954 Unknown [id number] 2.16.840.1.074088.3.579.2.106 9 1954 Unknown [id number] 2.16.840.1.341981.3.579.2.106 9 1954 Unknown [id number] 2.16.840.1.470796.3.579.2.106 9 1954 Unknown [id number] 2.16.840.1.758713.3.579.2.106 9 1954 Unknown [id number] 2.16.840.1.645492.3.579.2.106 9 1954 Unknown [id number] 2.16.840.1.471200.3.579.2.106 9 1954 Unknown [id number] 2.16.840.1.124331.3.579.2.106 9 1954 Unknown [id number] 2.16.840.1.299491.3.579.2.106 9 1954 Unknown [id number] 2.16.840.1.352952.3.579.2.106 9 1954 Unknown [id number] 2.16.840.1.259054.3.579.2.106 9 1954 Unknown [id number] 2.16.840.1.853204.3.579.2.106 9 1954 Unknown [id number] 2.16.840.1.603747.3.579.2.106 9 1954 Unknown [id number] 2.16.840.1.640226.3.579.2.106 9 1954 Unknown [id number] 2.16.840.1.036993.3.579.2.106 9 1954 Unknown [id number] 2.16.840.1.575668.3.579.2.106 9 1954 Unknown [id number] 2.16.840.1.741851.3.579.2.106 9 1954 Unknown [id number] 2.16.840.1.910220.3.579.2.106 9 1954 Unknown [id number] 2.16.840.1.937102.3.579.2.106 9 1954 Unknown [id number] 2.16.840.1.550682.3.579.2.106 9 1954 Unknown [id number] 2.16.840.1.891004.3.579.2.106 9 1954 Unknown [id number] 2.16.840.1.613024.3.579.2.106 9 1954 Unknown [id number] 2.16.840.1.784687.3.579.2.106 9 1954 Unknown [id number] 2.16.840.1.279650.3.579.2.106 9 1954 Unknown [id number] 2.16.840.1.387906.3.579.2.106 9 1954 Unknown [id number] 2.16.840.1.477952.3.579.2.106 9 1954 Unknown [id number] 2.16.840.1.716901.3.579.2.106 9 1954 Unknown [id number] 2.16.840.1.253718.3.579.2.900 1954 Unknown [id number] 2.16.840.1.164018.3.579.2.900 1954 Unknown [id number] 2.16.840.1.506005.3.579.2.902 1954 Unknown [id number] 2.16.840.1.584672.3.579.2.902 1954 Unknown [id number] 2.16.840.1.506560.3.579.2.902 1954 Unknown [id number] 2.16.840.1.422077.3.579.2.124 3 1954 Unknown [id number] 2.16.840.1.225243.3.579.2.124 3 1954 Unknown [id number] 2.16.840.1.538059.3.579.2.124 3 1954 Unknown [id number] 2.16.840.1.834061.3.579.2.124 3 1954 Unknown [id number] 2.16.840.1.067263.3.579.2.124 3 1954 Unknown [id number] 2.16.840.1.612862.3.579.2.124 3 1954 Unknown [id number] 2.16.840.1.805571.3.579.2.124 3 1954 Unknown [id number] 2.16.840.1.926248.3.579.2.124 3 1954 Unknown [id number] 2.16.840.1.011947.3.579.2.124 3 1954 Unknown [id number] 2.16.840.1.928660.3.579.2.124 3 1954 Unknown [id number] 2.16.840.1.024454.3.579.2.124 3 1954 Unknown [id number] 2.16.840.1.261946.3.579.2.124 3 1954 Unknown [id number] 2.16.840.1.649745.3.579.2.903 1954 Unknown [id number] 2.16.840.1.417530.3.579.2. 1954 Unknown [id number] 2.16.840.1.865742.3.579.2.903 1954 Unknown [id number] 2.16.840.1.620206.3.579.2. 1954 Unknown [id number] 2.16.840.1.522743.3.579.2.903 1954 Unknown [id number] 2.16.840.1.109952.3.579.2.903 1954 Unknown [id number] 2.16.840.1.698164.3.579.2.903 1954 Unknown [id number] 2.16.840.1.153001.3.579.2. 1954 Unknown [id number] 2.16.840.1.844628.3.579.2.903 1954 Unknown [id number] 2.16.840.1.344206.3.579.2.90 1954 Unknown [id number] 2.16.840.1.527119.3.579.2.903 1954 Unknown [id number] 2.16.840.1.822668.3.579.2.903 1954 Unknown [id number] 2.16.840.1.748759.3.579.2.903 1954 Unknown [id number] 2.16.840.1.048080.3.579.2.903 1954 Unknown [id number] 2.16.840.1.953021.3.579.2. 1954 Unknown [id number] 2.16.840.1.726052.3.579.2.903 1954 Unknown [id number] 2.16.840.1.404336.3.579.2. 1954 Unknown [id number] 2.16.840.1.366638.3.579.2.903 1954 Unknown [id number] 2.16.840.1.802461.3.579.2. 1954 Unknown [id number] 2.16.840.1.454770.3.579.2.903 1954 Unknown [id number] 2.16.840.1.930727.3.579.2.3 1954 Unknown [id number] 2.16.840.1.496120.3.579.2.903 1954 Unknown [id number] 2.16.840.1.947150.3.579.2. Unknown COMMERCIAL COMME RCIAL MISCELLANEOUS [id number] Effective for all dates [id number] 1.2.840.672556.1.13.385.2.7.3 .175066.315 Unknown COMMERCIAL COMME RCIAL MISCELLANEOUS [id number] Effective for all dates [phone] [address] [address] [place] [address] 1.2.840.210020.1.13.385.2.7.3 .302102.315 Unknown [id number] 2.16.840.1.448044.3.579.2.462 Unknown [id number] 2.16.840.1.676447.3.579.2.462 Unknown [id number] 2.16.840.1.880466.3.579.2.462 Social History Date Type Detail Facility Start: 06-08-2017 End: 01-21-2023 Tobacco smoking status NHIS Never smoker [facility] Start: 1955 Sex Assigned At Not on file [facility] Work Phone: Start: 06-06-2019 Alcohol Comment occasional [facility] Start: 06-11-2020 End: 01-21-2023 Tobacco use and exposure Never used [facility] Start: 06-11-2020 End: 03-04-2024 Alcohol intake Current drinker of alcohol (finding) [facility] Start: 06-10-2021 End: 02-24-2024 Alcohol intake [facility] Start: 01-11-2022 End: 01-21-2023 Exposure to SARS-CoV-2 (event) Not sure [facility] Start: 12-06-2019 End: 06-25-2023 Tobacco smoking status NHIS Unknown if ever smoked [facility] Start: 1955 Sex Assigned At Female [facility] Start: 09-14-2023 End: 02-24-2024 Tobacco use panel [facility] Start: 06-06-2019 Gender identity Identifies as female gender (finding) [facility] Start: 06-06-2019 Sexual orientation Heterosexual (finding) [facility] Lack of Transportati on (Medical) No [facility] Medical Equipment Procedure Code Equipment Code Equipment Origin al Text Equipment Identifier Dates Closure 6fr Angioseal Vip - [id number] Start: 01-15-2022 Closure Perclose Prostyle - [id number] Start: 01-21-2022 Valve 34mm Evolu t Pro Aortic - [id number] [id number], [id number] FDA Start: 01-21-2022 Hemostat 2 X 4in Surgicel Snow Sterl - [id number] Start: 01-21-2022 Baseplate Sz3 Ti bial Tritanium Triathlon - [id number] ()[id number] [id number], [id number] FDA Start: 01-26-2024 Component Sz3 Fe m Cr Rt Cementless Beaded W/Pa Triathlon - [id number] ()[id number] [id number], [id number] FDA Start: 01-26-2024 Patella 29mm Asymmetric Metal-Backed Tritanium Triathlon - [id number] ()[id number] [id number], [id number] FDA Start: 01-26-2024 Insert Sz3-11 Ti bial Cr X3 Triathlon [id number] - [id number] ()[id number] 7)[id number], [id number] FDA Start: 01-26-2024 Clinical Notes 06-10-2021 to 03-11-2024 Flores Gore PTA - 03/11/2024 10:45 AM Flores Lund PTA - 03/09/2024 10:45 AM Flores Lund PTA - 03/07/2024 10:45 AM Nadege Chua - 03/04/2024 10:45 AM EDTNarrapatrizia Note Date & Type Note Facility 03-11-2024 History of Presen t illness Narrative [facility] DAILY TREATMENT NOTE Today's Date 03/11/2024 Patient Name: Vickie Gonzalez Date of : 1955 Current Visit #: 12 Authorized Visits: 199 Case Name: S/P Right TKR History: Pre-Treatment Pain Scale: 0 Symptoms: gradually improved Functional Diagnosis: 1. Status post total right knee replacement Clinical Information: Subjective: she has a follow up this afternoon with Dr. HANLEY. Objective FOTO 64 Pain 0-4/10 Difficulty with stairs ascending MMT 4+/5 flexion/extension AROM 92, AAROM 103 She is able to ambulate in community without AD. Ambulates with antalgic gait on R during stance phase. Continues with swelling around knee Treatments: 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 Exercise Log - 03/11/24 1131 OTHER Precautions/Contraindications Supervising PT: Arnav Notes visit 11: 10:45-11:28 Therapeutic Exercise (11395) Intervention SciFit Bike L4 x 6 mins Parameters Calf, HS Lunge stetch 3x20 B Intervention BOSU Lunges x20 alt / BOSU step ups 6 R LE x15 fwd, lat Parameters TKE 3 sec hold x20 martinez band Intervention Steamboats - L3 x15 Parameters Lateral, Retro ambulation 30' x 2 laps Intervention Stair amb reciprocally x 2 (retro descend) NT Parameters Shuttle Squats - x15 68# / SL x15 37# Intervention Oscillations and MET - x3 min Parameters Heel Slides - x10 (104 degrees with Overpressure) Intervention heel taps w/6 step x10 Parameters Step ups and step up and over 6 Intervention Possibly add dutch split squats/ stool scoots/ standing hamstring curls Parameters Manual knee flexion ROM/ mobs Intervention stool Parameters Vaso ( see below ) Additional Exercises Add more exercises? Yes Modalities Modalities Vasopneumatic Treatment Parameters X10 min Med comptression 34 degrees PT Treatment Times Therex Total Time 33 Modalities Total Time 10 Direct Treatment Time 43 Total Treatment Time 43 Goals: 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 Ortho Goals: MOBILITY: Patient will be able to ambulate for 30 minutes in community/home without AD and min pain/discomfort in 6 weeks. MOBILITY: Patient will be able to ambulate on uneven surfaces without difficulty in 6 weeks. MOBILITY: Patient will be able to ascend/descend stairs without difficulty in 3 weeks. IMPAIRMENT: Improve pain from 4/10 to 1/10 during functional activity in 6 weeks IMPAIRMENT: Improve MMT of Right Knee Flexion and Extension from 4/5 to 4+/5 in 6 weeks IMPAIRMENT: Improve AROM of Right Knee Flexion from 62 degrees to 110 degrees in 3 weeks. IMPAIRMENT: Improve AROM of Right Knee extension from 4 degrees to 0 degrees in 3 weeks. OTHER: Patient will increase FOTO score to at least 53 to show MDC/MCII and expected functional outcome in 6 weeks. OTHER: Patient will be able to properly demonstrate independence with HEP in 2 weeks. Patient Education: Quality of movement with patient demonstrated understanding. Post-Treatment Pain Scale: 1 Assessment: Patient had an expected response to treatment. Skilled Intervention demonstrated by modifications of treatment per exercise log including increased load and safety interventions per exercise log. Progress towards goals as expected. Plan for Next Visit: Hold. She could benefit from more PT visits Flores Gore PTA STATE LICENSE, [id number] documented in this encounter [facility] 03-09-2024 History of Presen t illness Narrative [facility] DAILY TREATMENT NOTE Today's Date 03/09/2024 Patient Name: Vickie Gonzalez Date of : 1955 Current Visit #: 11 Authorized Visits: 199 Case Name: S/P Right TKR History: Pre-Treatment Pain Scale: 2 Symptoms: gradually improved Functional Diagnosis: 1. Status post total right knee replacement Clinical Information: Subjective: her knee is doing ok today but still has problems with her sciatic nerve. She sees Dr. HANLEY for follow up on Thursday. Objective AAROM flexion 100 degrees. AROM extension 0 degrees. Treatments: 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 Exercise Log - 03/09/24 1115 OTHER Precautions/Contraindications Supervising PT: Arnav Notes Visit #10: 10:36-11:26 Therapeutic Exercise (81699) Intervention SciFit Bike L4 x 6 mins Parameters Calf, HS Lunge stetch 3x20 B Intervention BOSU Lunges x20 alt / BOSU step ups 6 R LE x15 fwd, lat Parameters TKE 3 sec hold x20 martinez band Intervention Steamboats - L3 x15 Parameters Lateral, Retro ambulation 30' x 2 laps Intervention Stair amb reciprocally x 2 (retro descend) NT Parameters Shuttle Squats - x15 68# / SL x15 37# Intervention Oscillations and MET - x3 min Parameters Heel Slides - x10 (104 degrees with Overpressure) Intervention heel taps w/6 step x10 Parameters Step ups and step up and over 6 Intervention Possibly add dutch split squats/ stool scoots/ standing hamstring curls Parameters Manual knee flexion ROM/ mobs Intervention stool Parameters Vaso ( see below ) Additional Exercises Add more exercises? Yes Modalities Modalities Vasopneumatic Treatment Parameters X10 min Med comptression 34 degrees PT Treatment Times Therex Total Time 35 Modalities Total Time 10 Direct Treatment Time 45 Total Treatment Time 45 Goals: 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 Ortho Goals: MOBILITY: Patient will be able to ambulate for 30 minutes in community/home without AD and min pain/discomfort in 6 weeks. MOBILITY: Patient will be able to ambulate on uneven surfaces without difficulty in 6 weeks. MOBILITY: Patient will be able to ascend/descend stairs without difficulty in 3 weeks. IMPAIRMENT: Improve pain from 4/10 to 1/10 during functional activity in 6 weeks IMPAIRMENT: Improve MMT of Right Knee Flexion and Extension from 4/5 to 4+/5 in 6 weeks IMPAIRMENT: Improve AROM of Right Knee Flexion from 62 degrees to 110 degrees in 3 weeks. IMPAIRMENT: Improve AROM of Right Knee extension from 4 degrees to 0 degrees in 3 weeks. OTHER: Patient will increase FOTO score to at least 53 to show MDC/MCII and expected functional outcome in 6 weeks. OTHER: Patient will be able to properly demonstrate independence with HEP in 2 weeks. Patient Education: Quality of movement with patient demonstrated understanding. Post-Treatment Pain Scale: 1 Assessment: Patient had an expected response to treatment. Skilled Intervention demonstrated by modifications of treatment per exercise log including increased load and safety interventions per exercise log. Progress towards goals as expected. Plan for Next Visit: Treatment Visit with focus on Flexion ROM Flores Gore PTA STATE LICENSE, [id number] documented in this encounter [facility] 03-07-2024 History of Presen t illness Narrative [facility] DAILY TREATMENT NOTE Today's Date 03/07/2024 Patient Name: Vickie Gonzalez Date of : 1955 Current Visit #: 10 Authorized Visits: 199 Case Name: S/P Right TKR History: Pre-Treatment Pain Scale: 3 Symptoms: gradually improved Functional Diagnosis: 1. Status post total right knee replacement Clinical Information: Subjective: she sees Dr. HANLEY on Thursday for follow up. Objective AAROM flexion 0-104 following mobs and overpressure. Treatments: 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 Exercise Log - 03/07/24 1215 OTHER Precautions/Contraindications Supervising PT: Arnav Notes Visit #8: 10:45-11:30 Therapeutic Exercise (08627) Intervention SciFit Bike L4 x 6 mins Parameters Calf, HS Lunge stetch 3x20 B Intervention BOSU Lunges x20 alt / BOSU step ups 6 R LE x15 fwd, lat Parameters TKE 3 sec hold x20 martinez band Intervention Steamboats - L3 x15 Parameters Lateral, Retro ambulation 30' x 2 laps Intervention Stair amb reciprocally x 2 (retro descend) NT Parameters Shuttle Squats - x15 68# / SL x15 37# Intervention Oscillations and MET - x3 min Parameters Heel Slides - x10 (104 degrees with Overpressure) Intervention heel taps w/6 step x10 Parameters Step ups and step up and over 6 Intervention Possibly add dutch split squats/ stool scoots/ standing hamstring curls Parameters Manual knee flexion ROM/ mobs Intervention stool Parameters Vaso ( see below ) Additional Exercises Add more exercises? Yes Modalities Modalities Vasopneumatic Treatment Parameters X10 min Med comptression 34 degrees PT Treatment Times Therex Total Time 35 Modalities Total Time 10 Direct Treatment Time 45 Total Treatment Time 45 Goals: 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 Ortho Goals: MOBILITY: Patient will be able to ambulate for 30 minutes in community/home without AD and min pain/discomfort in 6 weeks. MOBILITY: Patient will be able to ambulate on uneven surfaces without difficulty in 6 weeks. MOBILITY: Patient will be able to ascend/descend stairs without difficulty in 3 weeks. IMPAIRMENT: Improve pain from 4/10 to 1/10 during functional activity in 6 weeks IMPAIRMENT: Improve MMT of Right Knee Flexion and Extension from 4/5 to 4+/5 in 6 weeks IMPAIRMENT: Improve AROM of Right Knee Flexion from 62 degrees to 110 degrees in 3 weeks. IMPAIRMENT: Improve AROM of Right Knee extension from 4 degrees to 0 degrees in 3 weeks. OTHER: Patient will increase FOTO score to at least 53 to show MDC/MCII and expected functional outcome in 6 weeks. OTHER: Patient will be able to properly demonstrate independence with HEP in 2 weeks. Patient Education: Quality of movement with patient demonstrated understanding. Post-Treatment Pain Scale: 1 Assessment: Patient had an expected response to treatment. Skilled Intervention demonstrated by modifications of treatment per exercise log including increased load and safety interventions per exercise log. Progress towards goals as expected. Plan for Next Visit: Treatment Visit with focus on flexion Flores Gore PTA STATE LICENSE, [id number] documented in this encounter [facility] 03-04-2024 History of Presen t illness Narrative [facility] DAILY TREATMENT NOTE Today's Date 03/04/2024 Patient Name: Vickie Gonzalez Date of : 1955 Current Visit #: 9 Authorized Visits: 199 Case Name: S/P Right TKR History: Pre-Treatment Pain Scale: 2 Symptoms: gradually improved Functional Diagnosis: 1. Status post total right knee replacement Clinical Information: Subjective: Patient states she only has a little bit of tightness in R knee today and felt good after last tx. HEP going well. Objective Continued stretches and strengthening exercises per log to improve ROM and increase strength in RLE. Added stool scoots for progression and lateral and fwd step ups on 6. Treatments: 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 Exercise Log - 03/04/24 1046 OTHER Precautions/Contraindications Supervising PT: Arnav Notes Visit #8: 10:45-11:40 Therapeutic Exercise (08127) Intervention SciFit Bike L4 x 6 mins Parameters Calf, HS Lunge stetch 3x20 B Intervention BOSU Lunges x20 alt / BOSU step ups 6 R LE x15 fwd, lat Parameters TKE 3 sec hold x20 martinez band Intervention Steamboats - L3 x15 Parameters Lateral, Retro ambulation 30' x 2 laps Intervention Stair amb reciprocally x 2 (retro descend) NT Parameters Shuttle Squats - x15 68# / SL x15 37# Intervention Oscillations and MET - x3 min Parameters Heel Slides - x10 (108 degrees with Overpressure) Intervention heel taps w/6 step x10 Parameters Step ups and step up and over 6 Intervention Possibly add dutch split squats/ stool scoots/ standing hamstring curls Parameters Manual knee flexion ROM/ mobs Intervention stool Parameters Vaso ( see below ) Additional Exercises Add more exercises? Yes Modalities Modalities Vasopneumatic Treatment Parameters X10 min Med comptression 34 degrees PT Treatment Times Therex Total Time 52 Manual Therapy Total Time 3 Direct Treatment Time 55 Total Treatment Time 55 Goals: 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 Ortho Goals: MOBILITY: Patient will be able to ambulate for 30 minutes in community/home without AD and min pain/discomfort in 6 weeks. MOBILITY: Patient will be able to ambulate on uneven surfaces without difficulty in 6 weeks. MOBILITY: Patient will be able to ascend/descend stairs without difficulty in 3 weeks. IMPAIRMENT: Improve pain from 4/10 to 1/10 during functional activity in 6 weeks IMPAIRMENT: Improve MMT of Right Knee Flexion and Extension from 4/5 to 4+/5 in 6 weeks IMPAIRMENT: Improve AROM of Right Knee Flexion from 62 degrees to 110 degrees in 3 weeks. IMPAIRMENT: Improve AROM of Right Knee extension from 4 degrees to 0 degrees in 3 weeks. OTHER: Patient will increase FOTO score to at least 53 to show MDC/MCII and expected functional outcome in 6 weeks. OTHER: Patient will be able to properly demonstrate independence with HEP in 2 weeks. Patient Education: Quality of movement and Verbal HEP with patient demonstrated understanding and verbalized understanding. Post-Treatment Pain Scale: 2 Assessment: Patient had an expected response to treatment. Skilled Intervention demonstrated by modifications of treatment per exercise log including increased load, increased rate, and increased cueing and safety interventions per exercise log. Progress towards goals as expected. Plan for Next Visit: Treatment Visit with focus on continuing stretches and strengthening exercises per log to improve ROM and increase strength in RLE. Session and note completed by SHIRA Celis No licensure found in state: [place] Treatment was directed and supervised by the co-signing therapist who was directly present for the entire session. Gabriel Tovar PTA State License [id number] documented in this encounter [facility] 03-02-2024 History of Presen t illness Narrative [facility] DAILY TREATMENT NOTE Today's Date 03/02/2024 Patient Name: Vickie Gonzalez Date of : 1955 Current Visit #: 8 Authorized Visits: 199 Case Name: S/P Right TKR History: Pre-Treatment Pain Scale: 4 Symptoms: gradually improved Functional Diagnosis: 1. Status post total right knee replacement Clinical Information: Subjective: Pt reported increased pain/soreness coming into treatment session this morning. Pt reported that she started driving this Thursday and reported that the longer drive coming to treatment tends to aggravate it a bit. Pt reported she's still having difficulty with sleeping and noted some numbness and tingling in bed. Objective Treatments: 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 Exercise Log - 03/02/24 1052 OTHER Precautions/Contraindications Supervising PT: Arnav Notes Visit #7: 10:46 11:24 Therapeutic Exercise (08691) Intervention SciFit Bike L4 x 6 mins Parameters Calf, HS Lunge stetch 3x20 B Intervention BOSU Lunges x20 alt / BOSU step ups R LE x10 fwd, lat Parameters TKE 3 sec hold x15 martinez band Intervention Steamboats - L3 x10 Parameters Lateral, Retro ambulation 30' x 2 laps Intervention Stair amb reciprocally x 2 (retro descend) NT Parameters Shuttle Squats - x20 62# / SL x20 31# Intervention Oscillations and MET - x3 min Parameters Heel Slides - x10 (108 degrees with Overpressure) Intervention heel taps w/6 step x10 Intervention Possibly add dutch split squats/ stool scoots/ standing hamstring curls Parameters Manual knee flexion ROM/ mobs Parameters Vaso ( see below ) Additional Exercises Add more exercises? Yes Modalities Modalities Vasopneumatic Treatment Parameters X10 min Med comptression 34 degrees PT Treatment Times Therex Total Time 38 Direct Treatment Time 38 Total Treatment Time 38 Goals: 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 Ortho Goals: MOBILITY: Patient will be able to ambulate for 30 minutes in community/home without AD and min pain/discomfort in 6 weeks. MOBILITY: Patient will be able to ambulate on uneven surfaces without difficulty in 6 weeks. MOBILITY: Patient will be able to ascend/descend stairs without difficulty in 3 weeks. IMPAIRMENT: Improve pain from 4/10 to 1/10 during functional activity in 6 weeks IMPAIRMENT: Improve MMT of Right Knee Flexion and Extension from 4/5 to 4+/5 in 6 weeks IMPAIRMENT: Improve AROM of Right Knee Flexion from 62 degrees to 110 degrees in 3 weeks. IMPAIRMENT: Improve AROM of Right Knee extension from 4 degrees to 0 degrees in 3 weeks. OTHER: Patient will increase FOTO score to at least 53 to show MDC/MCII and expected functional outcome in 6 weeks. OTHER: Patient will be able to properly demonstrate independence with HEP in 2 weeks. Patient Education: Quality of movement with patient demonstrated understanding and verbalized understanding. Post-Treatment Pain Scale: 4 Assessment: Patient had an expected response to treatment. Skilled Intervention demonstrated by modifications of treatment per exercise log including increased load, increased cueing, increased intensity, increased volume, and assessment of patient's response and safety interventions per exercise log. Progress towards goals as expected. Plan for Next Visit: Treatment Visit with focus on R knee flexion ROM. Mikaela Kamara, SPT No licensure found in state: [place] Treatment was directed and supervised by the co-signing therapist who was directly present for the entire session. Dajuan Arroyo PT State License, [id number] documented in this encounter [facility] 02-29-2024 History of Presen t illness Narrative [facility] DAILY TREATMENT NOTE Today's Date 02/29/2024 Patient Name: Vickie Gonzalez Date of : 1955 Current Visit #: 7 Authorized Visits: 199 Case Name: S/P Right TKR History: Pre-Treatment Pain Scale: 1 Symptoms: gradually improved Functional Diagnosis: 1. Status post total right knee replacement Clinical Information: Subjective: Pt reports knee more stiff and sore after being on it more yesterday. Compliant with HEP. Objective Treatments: 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 Exercise Log - 02/29/24 1050 OTHER Precautions/Contraindications Supervising PT: Arnav Notes Visit: 1050 - 11:40 Therapeutic Exercise (72145) Intervention SciFit Bike L4 x 6 mins Parameters Calf, HS Lunge stetch 3x20 B Intervention BOSU Lunges x20 alt / BOSU step ups R LE x10 fwd, lat Parameters TKE 3 sec hold x15 martinez band Intervention Steamboats - L3 x10 Parameters Lateral, Retro ambulation 30' x 2 laps Intervention Stair amb reciprocally x 2 (retro descend) NT Parameters Shuttle Squats - x15 62# / SL x15 31# Intervention Oscillations and MET - x3 min Parameters Heel Slides - x10 (101 degrees with Overpressure) Intervention Vaso ( see below ) Parameters -- Additional Exercises Add more exercises? Yes Modalities Modalities Vasopneumatic Treatment Parameters X10 min Med comptression 34 degrees PT Treatment Times Therex Total Time 40 Modalities Total Time 10 Direct Treatment Time 50 Total Treatment Time 50 Goals: 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 Ortho Goals: MOBILITY: Patient will be able to ambulate for 30 minutes in community/home without AD and min pain/discomfort in 6 weeks. MOBILITY: Patient will be able to ambulate on uneven surfaces without difficulty in 6 weeks. MOBILITY: Patient will be able to ascend/descend stairs without difficulty in 3 weeks. IMPAIRMENT: Improve pain from 4/10 to 1/10 during functional activity in 6 weeks IMPAIRMENT: Improve MMT of Right Knee Flexion and Extension from 4/5 to 4+/5 in 6 weeks IMPAIRMENT: Improve AROM of Right Knee Flexion from 62 degrees to 110 degrees in 3 weeks. IMPAIRMENT: Improve AROM of Right Knee extension from 4 degrees to 0 degrees in 3 weeks. OTHER: Patient will increase FOTO score to at least 53 to show MDC/MCII and expected functional outcome in 6 weeks. OTHER: Patient will be able to properly demonstrate independence with HEP in 2 weeks. Patient Education: Quality of movement with patient demonstrated understanding. Post-Treatment Pain Scale: 0 Assessment: Patient had an expected response to treatment. Skilled Intervention demonstrated by modifications of treatment per exercise log including increased load and safety interventions per exercise log. Progress towards goals as expected. Plan for Next Visit: Treatment Visit with focus on strengthening and ROM Gabriel Tovar PTA STATE LICENSE, [id number] documented in this encounter [facility] 02-26-2024 History of Presen t illness Narrative [facility] DAILY TREATMENT NOTE Today's Date 02/26/2024 Patient Name: Vickie Gonzalez Date of : 1955 Current Visit #: 6 Authorized Visits: 199 Case Name: S/P Right TKR History: Pre-Treatment Pain Scale: 2 Symptoms: stabilized Functional Diagnosis: 1. Status post total right knee replacement Clinical Information: Subjective: Pt reports low pain today and min soreness after LV, states LV she felt the best yet Objective Reviewed adding short walks through the day to increase activity A lot of guarding with heel slides and oscillations Treatments: 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 Exercise Log - 02/26/24 1034 OTHER Precautions/Contraindications Supervising PT: Arnav Notes Visit: 5 [phone] Therapeutic Exercise (12628) Intervention SciFit Bike L4 x 6 mins Parameters Calf, HS Lunge stetch 3x20 B Intervention BOSU Lunges x20 alt / BOSU step ups R LE x15 Parameters 8 step ups x10 fwd Intervention TKE 3 sec hold x15 martinez band Parameters Steamboats - yellow miniband x10 Intervention Stair amb reciprocally x 2 (retro descend) Parameters Lateral, Retro ambulation 30' x 2 laps Intervention Oscillations and MET - x3 min Parameters Shuttle Squats - x15 62# / SL x10 31# Intervention Heel Slides - x10 (95 degrees with Overpressure) Parameters Vaso ( see below ) Additional Exercises Add more exercises? Yes Modalities Modalities Vasopneumatic Treatment Parameters X10 min Med comptression 34 degrees PT Treatment Times Therex Total Time 40 Manual Therapy Total Time 5 Modalities Total Time 10 Direct Treatment Time 55 Total Treatment Time 57 Goals: 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 Ortho Goals: MOBILITY: Patient will be able to ambulate for 30 minutes in community/home without AD and min pain/discomfort in 6 weeks. MOBILITY: Patient will be able to ambulate on uneven surfaces without difficulty in 6 weeks. MOBILITY: Patient will be able to ascend/descend stairs without difficulty in 3 weeks. IMPAIRMENT: Improve pain from 4/10 to 1/10 during functional activity in 6 weeks IMPAIRMENT: Improve MMT of Right Knee Flexion and Extension from 4/5 to 4+/5 in 6 weeks IMPAIRMENT: Improve AROM of Right Knee Flexion from 62 degrees to 110 degrees in 3 weeks. IMPAIRMENT: Improve AROM of Right Knee extension from 4 degrees to 0 degrees in 3 weeks. OTHER: Patient will increase FOTO score to at least 53 to show MDC/MCII and expected functional outcome in 6 weeks. OTHER: Patient will be able to properly demonstrate independence with HEP in 2 weeks. Patient Education: Verbal HEP with patient verbalized understanding. Post-Treatment Pain Scale: 2 Assessment: Patient had an expected response to treatment. Skilled Intervention demonstrated by modifications of treatment per exercise log including assessment of patient's response and safety interventions per exercise log. Progress towards goals as expected. Plan for Next Visit: Treatment Visit with focus on progressing as tolerated Sherlyn Villavicencio PTA STATE LICENSE, [id number] documented in this encounter [facility] 02-24-2024 History of Presen t illness Narrative [facility] DAILY TREATMENT NOTE Today's Date 02/24/2024 Patient Name: Vickie Gonzalez Date of : 1955 Current Visit #: 5 Authorized Visits: 199 Case Name: S/P Right TKR History: Pre-Treatment Pain Scale: 3 Symptoms: gradually improved Functional Diagnosis: 1. Status post total right knee replacement Clinical Information: Subjective: Patient doesn't have much pain today just more soreness around the knee. Patient is complaint with HEP. She states she has been having trouble sleeping and not being able to get comfortable in her bed which causes her to move to the recliner. Objective Continued stretches and exercises per log to improve ROM and strength in R LE. Treatments: 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 Exercise Log - 02/24/24 1033 OTHER Precautions/Contraindications Supervising PT: Arnav Notes Visit: 4 10:45-11:11:43 Therapeutic Exercise (32805) Intervention SciFit Bike L4 x 5 mins Parameters Calf, HS Lunge stetch 3x20 B Intervention BOSU Lunges x20 alt / BOSU step ups R LE x15 Step up and over 6 x10 Parameters 8 step ups x10 fwd, 6 step lat x10 Intervention TKE 3 sec hold x15 martinez band Parameters Steamboats - x10 L3 Intervention Shuttle Squats - x15 62# / SL x10 31# Parameters Lateral, Retro ambulation x2 laps Intervention Oscillations and MET - x5 min Parameters Quad sets - 3 sec x10 - NT Intervention Heel Slides - x10 (97 degrees with Overpressure) Parameters Vaso ( see below ) Additional Exercises Add more exercises? Yes Modalities Modalities Vasopneumatic Treatment Parameters X10 min Med comptression 34 degrees PT Treatment Times Therex Total Time 48 Modalities Total Time 10 Direct Treatment Time 58 Total Treatment Time 58 Goals: 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 Ortho Goals: MOBILITY: Patient will be able to ambulate for 30 minutes in community/home without AD and min pain/discomfort in 6 weeks. MOBILITY: Patient will be able to ambulate on uneven surfaces without difficulty in 6 weeks. MOBILITY: Patient will be able to ascend/descend stairs without difficulty in 3 weeks. IMPAIRMENT: Improve pain from 4/10 to 1/10 during functional activity in 6 weeks IMPAIRMENT: Improve MMT of Right Knee Flexion and Extension from 4/5 to 4+/5 in 6 weeks IMPAIRMENT: Improve AROM of Right Knee Flexion from 62 degrees to 110 degrees in 3 weeks. IMPAIRMENT: Improve AROM of Right Knee extension from 4 degrees to 0 degrees in 3 weeks. OTHER: Patient will increase FOTO score to at least 53 to show MDC/MCII and expected functional outcome in 6 weeks. OTHER: Patient will be able to properly demonstrate independence with HEP in 2 weeks. Patient Education: Quality of movement and Verbal HEP with patient demonstrated understanding and verbalized understanding. Post-Treatment Pain Scale: 3 Assessment: Patient had an expected response to treatment. Patient tolerated progressions of exercises well while still being challenged. Unable to do heel taps d/t weakness and difficulty. Skilled Intervention demonstrated by modifications of treatment per exercise log including increased load and increased rate and safety interventions per exercise log. Progress towards goals as expected. Plan for Next Visit: Treatment Visit with focus on continuing exercises per log to improve ROM and increase strength. Session and note completed by SHIRA Celis No licensure found in state: [place] Treatment was directed and supervised by the co-signing therapist who was directly present for the entire session. Gabriel Tovar PTA State License [id number] documented in this encounter [facility] 02-22-2024 History of Presen t illness Narrative [facility] DAILY TREATMENT NOTE Today's Date 02/22/2024 Patient Name: Vickie Gonzalez Date of : 1955 Current Visit #: 4 Authorized Visits: 199 Case Name: S/P Right TKR History: Pre-Treatment Pain Scale: 2 Symptoms: gradually improved Functional Diagnosis: 1. Status post total right knee replacement Clinical Information: Subjective: Pt reports minimal pain coming to treatment session this morning. Objective R LE knee flexion: 82 deg Treatments: 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 Exercise Log - 02/22/24 1035 OTHER Precautions/Contraindications Supervising PT: Arnav Notes Visit: 3 10:40 - 11:15 Therapeutic Exercise (34089) Intervention SciFit Bike L4 x 5 mins Parameters Calf, HS Lunge stetch 3x20 B Intervention BOSU Lunges x15 alt / BOSU step ups R LE x10 Parameters 8 step ups x10 fwd, 6 step lat x10 Intervention TKE 3 sec hold x15 martinez band Parameters Steamboats - x10 L3 Intervention Shuttle Squats - x15 62# / SL x10 25# Parameters Lateral, Retro ambulation x2 laps Intervention Oscillations and MET - x5 min Parameters Quad sets - 3 sec x10 - NT Intervention Heel Slides - x10 (92 degrees with Overpressure) Parameters Vaso ( see below Additional Exercises Add more exercises? Yes Modalities Modalities Vasopneumatic Treatment Parameters X10 min Med comptression 34 degrees PT Treatment Times Therex Total Time 35 Direct Treatment Time 35 Total Treatment Time 35 Goals: 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 Ortho Goals: MOBILITY: Patient will be able to ambulate for 30 minutes in community/home without AD and min pain/discomfort in 6 weeks. MOBILITY: Patient will be able to ambulate on uneven surfaces without difficulty in 6 weeks. MOBILITY: Patient will be able to ascend/descend stairs without difficulty in 3 weeks. IMPAIRMENT: Improve pain from 4/10 to 1/10 during functional activity in 6 weeks IMPAIRMENT: Improve MMT of Right Knee Flexion and Extension from 4/5 to 4+/5 in 6 weeks IMPAIRMENT: Improve AROM of Right Knee Flexion from 62 degrees to 110 degrees in 3 weeks. IMPAIRMENT: Improve AROM of Right Knee extension from 4 degrees to 0 degrees in 3 weeks. OTHER: Patient will increase FOTO score to at least 53 to show MDC/MCII and expected functional outcome in 6 weeks. OTHER: Patient will be able to properly demonstrate independence with HEP in 2 weeks. Patient Education: Quality of movement with patient demonstrated understanding and verbalized understanding. Post-Treatment Pain Scale: 2 Assessment: Patient had an expected response to treatment. Skilled Intervention demonstrated by modifications of treatment per exercise log including increased load, increased cueing, and increased intensity and safety interventions per exercise log. Progress towards goals as expected. Plan for Next Visit: Treatment Visit with focus on R knee strengthening and ROM. Mikaela Kamara, SPT No licensure found in state: [place] Treatment was directed and supervised by the co-signing therapist who was directly present for the entire session. Dajuan Arroyo PT State License, [id number] documented in this encounter [facility] 02-19-2024 History of Presen t illness Narrative [facility] DAILY TREATMENT NOTE Today's Date 02/19/2024 Patient Name: Vickie Gonzalez Date of : 1955 Current Visit #: 3 Authorized Visits: 199 Case Name: S/P Right TKR History: Pre-Treatment Pain Scale: 3 Symptoms: gradually improved Functional Diagnosis: 1. Status post total right knee replacement Clinical Information: Subjective: PT reports being more sore and swollen today after doing housework all morning yesterday, took pain pill after due to increased pain. Objective Treatments: 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 Exercise Log - 02/19/24 1048 OTHER Precautions/Contraindications Supervising PT: Arnav Notes Visit: 2 10:48 - 11:46 Therapeutic Exercise (82096) Intervention SciFit Bike L4 x 5 mins Parameters Calf, HS Lunge stetch 3x20 B Intervention BOSU Lunges x15 alt Parameters 6 step ups x10 fwd, lat Intervention TKE 3 sec hold x15 martinez band Parameters Steamboats - x10 L3 Intervention Shuttle Squats - x15 50# Parameters Lateral, Retro ambulation x2 laps Intervention Oscillations and MET - x5 min Parameters Quad sets - 3 sec x10 Intervention Heel Slides - x10 (92 degrees with Overpressure) Parameters Vaso ( see below Additional Exercises Add more exercises? Yes Modalities Modalities Vasopneumatic Treatment Parameters X10 min Med comptression 34 degrees PT Treatment Times Therex Total Time 48 Modalities Total Time 10 Direct Treatment Time 58 Total Treatment Time 58 Goals: 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 Ortho Goals: MOBILITY: Patient will be able to ambulate for 30 minutes in community/home without AD and min pain/discomfort in 6 weeks. MOBILITY: Patient will be able to ambulate on uneven surfaces without difficulty in 6 weeks. MOBILITY: Patient will be able to ascend/descend stairs without difficulty in 3 weeks. IMPAIRMENT: Improve pain from 4/10 to 1/10 during functional activity in 6 weeks IMPAIRMENT: Improve MMT of Right Knee Flexion and Extension from 4/5 to 4+/5 in 6 weeks IMPAIRMENT: Improve AROM of Right Knee Flexion from 62 degrees to 110 degrees in 3 weeks. IMPAIRMENT: Improve AROM of Right Knee extension from 4 degrees to 0 degrees in 3 weeks. OTHER: Patient will increase FOTO score to at least 53 to show MDC/MCII and expected functional outcome in 6 weeks. OTHER: Patient will be able to properly demonstrate independence with HEP in 2 weeks. Patient Education: Quality of movement with patient demonstrated understanding. Post-Treatment Pain Scale: 2 Assessment: Patient had an expected response to treatment. Skilled Intervention demonstrated by modifications of treatment per exercise log including increased load and safety interventions per exercise log. Progress towards goals as expected. Plan for Next Visit: Treatment Visit with focus on ROM and strengthening progression Gabriel Tovar PTA STATE LICENSE, [id number] documented in this encounter [facility] 02-17-2024 History of Presen t illness Narrative [facility] DAILY TREATMENT NOTE Today's Date 02/17/2024 Patient Name: Vickie Gonzalez Date of : 1955 Current Visit #: 2 Authorized Visits: 199 Case Name: S/P Right TKR History: Pre-Treatment Pain Scale: 3 Symptoms: gradually improved Functional Diagnosis: 1. Status post total right knee replacement Clinical Information: Subjective: Patient states her pain is about a normal 3/10 for her. Patient c/o of waking pain at night with insidious onset. Patient noted intermittent swelling in R knee and its relieved with ice and elevation. Objective Added standing exercises this date for progression including standing sinks, Step ups and TKE's for LE strengthening. Treatments: 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 Exercise Log - 02/17/24 1048 OTHER Precautions/Contraindications Supervising PT: Arnav Notes Visit: 1 10:50- Therapeutic Exercise (96192) Intervention HEP was reviewed w/ patient and agreed to continue working on those at home Parameters Async exercises Intervention SciFit Bike L4 x 5 mins Parameters Calf, HS stetch 2x20 B Intervention Shelby Lunge stretch 2 x20 B Parameters 6 step ups x10 fwd, lat Intervention TKE x15 Parameters Lateral ambulation x2 laps Intervention standing sinks: HR, Marches, HS curl, hip abd, ext, minisquats x10 each Goals: 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 Ortho Goals: MOBILITY: Patient will be able to ambulate for 30 minutes in community/home without AD and min pain/discomfort in 6 weeks. MOBILITY: Patient will be able to ambulate on uneven surfaces without difficulty in 6 weeks. MOBILITY: Patient will be able to ascend/descend stairs without difficulty in 3 weeks. IMPAIRMENT: Improve pain from 4/10 to 1/10 during functional activity in 6 weeks IMPAIRMENT: Improve MMT of Right Knee Flexion and Extension from 4/5 to 4+/5 in 6 weeks IMPAIRMENT: Improve AROM of Right Knee Flexion from 62 degrees to 110 degrees in 3 weeks. IMPAIRMENT: Improve AROM of Right Knee extension from 4 degrees to 0 degrees in 3 weeks. OTHER: Patient will increase FOTO score to at least 53 to show MDC/MCII and expected functional outcome in 6 weeks. OTHER: Patient will be able to properly demonstrate independence with HEP in 2 weeks. Patient Education: Quality of movement and Verbal HEP with patient demonstrated understanding and verbalized understanding. Post-Treatment Pain Scale: 2 Assessment: Patient had an expected response to treatment. Patient tolerated progressions of standing exercises well with verbal cueing for body mechanics. Skilled Intervention demonstrated by modifications of treatment per exercise log including increased load, increased rate, and increased cueing and safety interventions per exercise log. Progress towards goals as expected. Plan for Next Visit: Treatment Visit with focus on continuing strengthening exercises per log to focus on R LE knee strength, stability and ROM. Session and note completed by SHIRA Celis No licensure found in state: [place] Treatment was directed and supervised by the co-signing therapist who was directly present for the entire session. Gabriel Tovar PTA [id number] documented in this encounter [facility] 02-15-2024 History of Presen t illness Narrative [facility] Evaluation Today's Date 02/15/2024 Patient Name: Vickie Gonzalez Date of : 1955 Case Name: S/P Right TKR Functional Diagnosis: 1. Status post total right knee replacement Clinical Information: Subjective Referring Diagnosis: R TKR History of Present Illness Surgery Date: 01/26/2024 Days Post-Op: 20 Subjective History: Pt presents s/p R TKR that was conducted on 01/26/2024. Pt reported overall improvement within the last couple of weeks. Pt reported stitches getting taken out last Thursday, and everythings been looking good. Pt reported HEP exercises at home have been going well. Pt ambulates with straight cane AD and reports not needing AD before surgery. Previous Treatment for this condition: Yes Therapy type: home health Overall rating of health: Good Pain Scale Pain location: knee Average Pain: 4/10 Pain at highest: 9/10 Aggravating factors: flexion Easing factors: pain medications and icing Personal Goals: Pt would like to increase ROM within the knee and have the ability to ambulate better. Social Support: Jew, social, or cultural considerations to be made aware of before starting treatment: No Home Environment Current Home Environment: Setup: single story house Entry: steps with railing Red Flags: None Comments: Barriers to Care: None Fall risk screening Fallen 2 or more times in the last 12 months: No Injured as a result of a fall in the last 12 months: No Jew, social, or cultural considerations to be made aware of before starting treatment: No Knee Right Knee Range of Motion: Flexion Active: 62 Extension Active: 4 (lacking) Muscle Strength: Flexion: 4 (min pain reproduction) Extension: 4 (Pain reproduction w/ ths) Left Knee Range of Motion: Flexion Active: 95 Extension Active: 3 (lacking) Muscle Strength Flexion: 4+ Extension: 4+ FOTO: 43 Treatments: 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 Exercise Log - 02/15/24 1050 OTHER Precautions/Contraindications Supervising PT: rAnav Notes Eval: 10:51 - 11:17 Therapeutic Exercise (65139) Intervention HEP was reviewed w/ patient and agreed to continue working on those at home Parameters Async exercises PT Treatment Times Therex Total Time 10 Direct Treatment Time 10 Total Treatment Time 26 Goals: 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 Ortho Goals: MOBILITY: Patient will be able to ambulate for 30 minutes in community/home without AD and min pain/discomfort in 6 weeks. MOBILITY: Patient will be able to ambulate on uneven surfaces without difficulty in 6 weeks. MOBILITY: Patient will be able to ascend/descend stairs without difficulty in 3 weeks. IMPAIRMENT: Improve pain from 4/10 to 1/10 during functional activity in 6 weeks IMPAIRMENT: Improve MMT of Right Knee Flexion and Extension from 4/5 to 4+/5 in 6 weeks IMPAIRMENT: Improve AROM of Right Knee Flexion from 62 degrees to 110 degrees in 3 weeks. IMPAIRMENT: Improve AROM of Right Knee extension from 4 degrees to 0 degrees in 3 weeks. OTHER: Patient will increase FOTO score to at least 53 to show MDC/MCII and expected functional outcome in 6 weeks. OTHER: Patient will be able to properly demonstrate independence with HEP in 2 weeks. CPT Code 98251 Low 85851 Moderate 02985 High History 0 1-2 3+ Comorbidities: asthma, cancer, and cardiac history, Personal factors: fear avoidance and stress Examination of body systems (elements of body structures & functions, activity limitations, and/or participation restrictions) 1-2 elements 3+ elements 4+ elements See below clinical impression Clinical Presentation Stable Evolving Unstable As evidenced by reproduction of or changes in symptoms with certain movements Decision Making Low (FOTO >/= 69) Moderate (FOTO 34 - 68) High (FOTO </= 33) FOTO score= 43 Pt is a 68 y.o. female who presents to PT services s/p R TKR (01/26/2024). Upon assessment, pt has been found with the following impairments: decreased ROM, decreased strength, antalgic gait, swelling, and pain. The documented impairments result in the following functional limitations: ADLs/IADLs, regular PA/exercise, functional mobility, walking, stairs, recreational activities, quality of life, and bending. The pt would benefit from skilled PT services focused on the above listed impairments and limitations in order to safely progress pt to their desired level of function. Pt to be discharged from OP PT services if/when goals are met, if they fail to make progress with conservative management in PT, if their level of progress plateaus, or if they do not maintain compliance with attendance or HEP. At this time, it is my clinical judgment that services are medically necessary. Plan of Care Frequency of Visits: 3 times per week Duration: 6 weeks Interventions: Therapeutic Exercise (50474), Neuromuscular Re-Education (05276), Manual Therapy (66165), Therapeutic/ Functional Activities (64844), Gait Training (41040), Aquatic Therapy (24675), Hot/Cold Pack (44330), Electrical Stimulation - Medicare, Unattended (G0283), Ultrasound (32919), and Vasopneumatic (50373) Rehab Potential: good Patient Education Provided Pt was educated on the benefits of therapy and importance of compliance with sessions and HEP for rehabilitation. Pt was also educated on treatment diagnosis, POC, and frequency/duration of treatment. Mikaela Kamara, SPT No licensure found in state: [place] Treatment was directed and supervised by the co-signing therapist who was directly present for the entire session. Dajuan Arroyo PT State License, [id number] documented in this encounter [facility] 02-12-2024 Patient's home Pr ogress note Pt reports she is doing well and ready for dc. Is using a SPC around the house. Sees this afternoon for followup and staple removal. documented in this encounter [id number] Telephone encounter Note* Telephone Encounter - Treva Obregon LPN - 02/08/2024 12:09 PM EDT Patient requested refill for pain medication. Surgery 01/26 right TKR, last fill 01/26. [id number] Miscellaneous Notes* Telephone Encounter - Treva Obregon LPN - 02/08/2024 12:09 PM EDT Patient requested refill for pain medication. Surgery 01/26 right TKR, last fill 01/26. documented in this [id number] History of Present illness Narrative* Yen Carlson LPN - 02/01/2024 10:45 AM EST I spoke w Amber today and she says she is still pretty sore but improving some. She has been able to get into the shower. Her swelling is about the same, she does use ice on the knee but says maybe not elevating the leg enough. We did discuss laying flat on the bed/ sofa three times per day for one hour each w her foot elevated above her heart and ice on the knee. Her dressing looks pretty good and is intact. She denies any constipation, nausea off and on because she doesn't always eat w her meds but no vomiting. Her appetite is fair and she is drinking her fluids. She is taking 325mg ASA bid, 500mg Keflex tid, 10mg Flexeril prn, 20mg Protonix every day. She also tells me that she has developed a slight rash on her back w some itching. Her has used some Hydrocortisone cream. I did advise Benadryl prn for the itching and if it worsens to call the office. documented in this [id number] History of Present illness Narrative* Yen Carlson LPN - 01/11/2024 2:11 PM EST Amber's nasal swab was positive for MSSA w her preop testing. She will start Doxycyline 100mg bid x 7days and Mupirocin 2% ointment to both nostrils bid x 7 days. I did speak w Amber. documented in this [id number] Patient's home Progress note* Actions Routine visit made. VS WNL, Lungs clear, SPO2 99%, Pt states she has a slight cough with clear secretions. Pt was a bit concerned as she has pneumonia a few months ago. Pt denies any other symptoms, denies fever, chills, runny nose, body aches, Instructed pt to report if any new symptoms or worsening symptoms. Proper handwashing and infection control education provided to patient, voiced understanding. CP assessment, meditions reviewed, education provided on wound care, S&S to report, and safety with ambulation, patient voiced understanding.Instruct patient/caregiver in incision site care.To maintain dressing in place with jackelyn.Keep mepiplex dressing in place until follow up Appointment with Dr Pepe. May shower with dressing on. Keep incision clean and dry, Monitor for signs of infection such as fever, chills, redness, abnormal pain or swelling, pus, foul odor. Apply ice pack three times a day for an hour each time. Elevate your leg to reduce swelling. Narratives DC when goals met, wound hea ling, increased strength or patient no longer homebound documented in this encounter [id number] Patient's home Progress note* Actions Routine visit made. VS WNL, Lungs clear, SPO2 99%, Pt states she has a slight cough with clear secretions. Pt was a bit concerned as she has pneumonia a few months ago. Pt denies any other symptoms, denies fever, chills, runny nose, body aches, Instructed pt to report if any new symptoms or worsening symptoms. Proper handwashing and infection control education provided to patient, voiced understanding. CP assessment, meditions reviewed, education provided on wound care, S&S to report, and safety with ambulation, patient voiced understanding.Instruct patient/caregiver in incision site care.To maintain dressing in place with jackelyn.Keep mepiplex dressing in place until follow up Appointment with Dr Pepe. May shower with dressing on. Keep incision clean and dry, Monitor for signs of infection such as fever, chills, redness, abnormal pain or swelling, pus, foul odor. Apply ice pack three times a day for an hour each time. Elevate your leg to reduce swelling. Narratives DC when goals met, wound hea ling, increased strength or patient no longer homebound documented in this encounter [id number] Evaluation + Plan note* Assessment & Plan Note - Blaine Silveira MD - 10/20/2023 1:56 PM ESTAssociated Problem(s): Severe aortic insufficiency Doing well from Tavr standpoint Should be low cardiac for surgery from coronary and Valve Would suggest a pre op Pulmonary consult just to be sure from her fibrosing mediastinitis history Also would continue asa through surgery [id number] History of Present illness Narrative* Blaine Silveira MD - 10/20/2023 1:56 PM EST Patient Name: Vickie Gonzalez [facility] MR #: [id number] General Cardiology Blaine Silveira MD, [facility] 10/20/23 Dear Nicol Ibanez MD, Vickie Gonzalez was seen in follow up for : Problem 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 01/21/222022 2 D cardiac echocardiogram looked good [...] 1 (one) tablet by mouth daily . [id number] ORAL Take 1 tablet by mouth daily [...] No medications on file documented in this [id number] Miscellaneous Notes* Assessment & Plan Note - Blaine Silveira MD - 10/20/2023 1:56 PM ESTAssociated Problem(s): Severe aortic insufficiency Doing well from Tavr standpoint Should be low cardiac for surgery from coronary and Valve Would suggest a pre op Pulmonary consult just to be sure from her fibrosing mediastinitis history Also would continue asa through surgery documented in this [id number] Progress note Author Lindsey Walsh [facility] July 16, 2023 12:13pm Note Date/Time July 16, 2023 12 :05pm [facility] [address] [place] [address] Progress Note - Wound Care 07/16/23 1200 MR#: [id number] Acct: [id number] Name: VICKIE GONZALEZ Rep #:[id number] 09 : 1955 67 From: Lindesy sykes DPMalachi PCP: Dr. Nicol Ibanez MD Status:REG RCR Location: History of Present Illness Date of Service: 07/16/23 Chief Complaint: Left medial lower extremity ulceration History of Wound: Patient is a 67-year-old female with past medical history of basal cell carcinoma excised 02/04/2023 of the medial malleolus of the left lower extremity, HTN, obesity, knee replacement, and aortic valve insufficiency with murmur, SOB on exertion, and s/p double vessel coronary artery bypass. She states that she was sent by her primary care Dr. Bhavik Barker for evaluation of anodular and infiltrative basal cell carcinoma in which she saw Dr. Lisa Pryor MD and underwent Mohs excision of the cancer site. Preoperative size of the lesion was noted to be 1.5 cm x 0.8 cm at the left distal pretibial region with final excised the defect size of 1.8 cm x 1.0 cm. She underwent local wound care in office however distance became a factor and she would like to continue to follow-up locally at the wound care center at [facility]. She states following a few days after the procedure she was on the treadmill and did have some swelling of the lower extremity site to which she feels may have worsened the wound. States she will continue to follow with dermatology for continued monitoring/follow-up. She currently denies any N/V/F/chills. Denies further complaints. Subjective Subjective This is a 67-year-old female who presents to the wound care center today for follow-up of left medial ankle ulceration s/p Mohs excision of basal cell carcinoma.? She states wound has healed well without complication. States the cut over her eye has also healed following her fall last month.?Denies any constitutional symptoms today.? Denies further complaints today. Objective Data Objective Data Vital Signs: Vital Signs Temp Pulse Resp BP O2 Del Method 96.2 F L 70 16 174/71 H Room Air 07/16/23 09:42 07/16/23 09:42 07/16/23 09:42 07/16/23 09:42 07/16/23 09:42 Oxygen Delivery Method Room Air Weight: 102.058 kg Body Mass Index (BMI) 36.3 Physical Exam Const alert, oriented x3, no apparent distress and well nourished General Appearance: cooperative HEENT normocephalic Eyes Eyes Narrative: Wears glasses General Eye: normal appearance of both eyes Neck General: normal visual inspection Lymph Lymphatic: no lymphadenopathy noted and no lymphedema noted Resp normal respiratory effort Cardio regular rate and regular rhythm Extremity normal capillary refill, no joint enlargement, no calf tenderness and no pedal edema Extremity Narrative: DP and PT pulses are palpable bilateral.? Capillary fill time adequate to the digits bilaterally.? She is noted to have a vascular malformation with reddish purplish discoloration to the anterior left lower extremity extending proximallyto the thigh and up to the hip. Musculoskeletal: Muscle strength 5 of 5 age-appropriate.? Does have second digithammertoe deformity bilateral, this is flexible.? Decreased range of motion of the first MTPJ without pain or crepitus bilateral and ankle joint with the knee in extension without pain and crepitus noted bilaterally. Dermatological: Ulceration to the anterior aspect of the medial malleolus of theleft lower extremity s/p Mohs excision of nodular infiltrative basal cell carcinoma.? Ulcerative site remains healed today with healthy appearing skin. No purulent drainage, no malodor, no erythema, no visible abscess formation, no palpable fluctuance/bogginess, no lymphangitis. Skin no rashes or lesions noted, skin turgor normal and no jaundice Neuro moves all extremities Debridement Note Debridement Note No debridement was completed: No debridement was completed today Post-Debridement Measurements and Additional Note: Post-Debridement Measurements/Treatment - Nurse 1 - General Ulcer Assessment Start: 07/16/23 09:42 Freq: Status: Active Protocol: ELLEN Activity Type Activity Date Activity User E-sign Co-sign Detail Recorded Client Recorded Date Recorded By Document 07/16/23 09:42 [id number] 07/16/23 09:51 KW 07/16/23 09:42 - Today's Visit Information Type of service Follow-up Visit (Physician/LAND ACQUISITION MANAGER ) Arrival Mode Ambulatory Patient Identification Verified (Name & Yes ) Patient Requires Transmission-Based No Precautions Height and Weight Body Mass Index (BMI) 36.3 BMI Classification Obese Vital Signs Temperature (97.8 F-99.1 F) 96.2 F L Temperature Source Temporal Pulse Rate (60-100) 70 Pulse Location Monitor Respiratory Rate (12-18) 16 Respiratory rate source Observation Oxygen Delivery Method Room Air Blood Pressure (90/60-120/80) 174/71 H Blood Pressure Mean (mm Hg) 105 Source Monitor Position Sitting Blood Pressure Location Left Arm History Since Last Visit- (Skip if this is Patient's initial visit) Have you changed medications since your No last visit? Any new allergies or adverse reactions No Had a fall/change in ADL's that may No increase risk of falls Signs or symptoms of abuse and/or No neglect since last visit Have you been in the hospital since your No last visit? Has dressing in place as prescribed Yes Has compression in place as prescribed No Has offloadiing in place as prescribed No Experienced any changes in pain level or No management Left Footwear Regular Shoe Right Footwear Regular Shoe Pain Scale: 0-10 Numeric Is Patient Pain Free? Yes - Nurse 1 - General Ulcer Measurement Start: 07/16/23 09:42 Freq: Status: Active Protocol: Activity Type Activity Date Activity User E-sign Co-sign Detail Recorded Client Recorded Date Recorded By Document 07/16/23 09:42 [id number] 07/16/23 09:51 07/16/23 09:42 Wound Center Nurse 1 #1 L medial ankle -Combined with other wound No -Current Size (cm) - Length 0.1 -Current Size (cm) - Width 0.1 -Current Size (cm) - Depth 0.1 -Total Square Cm 0.01 -Epithelialization Large 67-100% -Necrosis Amt Small (1-33%) -Necrotic Tissue Type Eschar -Texture (Nighat-wound Skin Appearance) Assessed, Scarring -Moisture (Nighat-wound Skin Appearance) Assessed -Color (Nighat-wound Skin Appearance) Assessed -Temperature (Nighat-wound Skin No Abnormality Appearance) (Pt Warm) -Tenderness on Palpation (Nighat-wound No Skin Appearance) -Ulcer Cleansing Rinsed/ Irrigated with Saline -Foul Odor after Cleansing No -Anesthetic Used 5% Lidocaine Gel - Nurse 3 - General Ulcer D/C NN Start: 07/16/23 09:42 Freq: Status: Active Protocol: Activity Type Activity Date Activity User E-sign Co-sign Detail Recorded Client Recorded Date Recorded By Document 07/16/23 10:05 [id number] 07/16/23 10:06 07/16/23 10:05 Wound Care Center Nurse 3 -Ulcer Cleansing Rinsed/ Irrigated with Saline Pain Scale: 0-10 Numeric Is Patient Pain Free? Yes WC - Visit Discharge Discharge Condition Stable Ambulatory Status Cane Transportation Private Auto Medication Reconcilliation completed & No provided to patient/care provider Clinical Summary of Care Provided Yes Assessment/Plan Assessment/Plan (1) Non-pressure chronic ulcer of left calf with fat layer exposed: CODE(S): L97.222 - Non-pressure chronic ulcer of left calf with fat layer exposed (2) Non-pressure chronic ulcer of skin of other sites with muscle involvement without evidence of necrosis: CODE(S): L98.495 - Non-pressure chronic ulcer of skin of other sites with muscle involvement without evidence of necrosis (3) Basal cell carcinoma (BCC) of left lower extremity: CODE(S): C44.719 - Basal cell carcinoma of skin of left lower limb, including hip (4) HTN (hypertension): CODE(S): I10 - Essential (primary) hypertension PLAN: Plan Patient seen and evaluated She underwent excision of nodular and infiltrative basal cell carcinoma on 02/04/[address] Lisa Pryor MD. cancerous lesion measured 1.5 cm x 0.8 cm preexcision; post excision final defect size measured 1.8 cm x 1.0 cm.? She continues to follow with dermatology. Ulcerative site remains healed today.?No signs of infection.? A Band-Aid was placed over the site for protection of fragile skin and she was instructed to continue application for next 7 to 10 days. Tubigrip stocking applied to lower extremity to aid in edema control.? She was instructed to continue to wear the Tubigrip daily and elevate legs at all times of rest to aid in edema control. Discussed signs and symptoms of infection to observe for.? She was instructed that if she notices any redness about the ulcer site that moves up the leg, or if she has any purulent drainage, or increasing foul odor, or if she experiencesfever greater than 101 degree, nausea, vomiting, chills that these are signs of a progressing infection and she needs to report to the ED.? She voices understanding of this today. The following work up and care recommendations were made: Dressing: Band-Aid to site for next 7 to 10 days Wash: Soap and water Tissue growth optimization: None Offload: Elevation of lower extremity at all times of rest.? To ensure nothing rubs against the ulcerative site on the inside of the left leg. Vascular: DP and PT pulses palpable.? Adequate capillary fill time.? I do not feel her vascular status is impeding her healing. Edema: Elevation of the lower extremities at all times rest.? Once ulcerative site healed plan for compression stockings to aid in edema control. Infection: No signs of infection. Pain: May take [id number] Tylenol as needed for discomfort. Host factors: Basal cell carcinoma left lower extremity, edema. ? At this time with all wounds healed she is discharged from the wound care center. She has follow-up appointment with lead generation marketing manager next week. I answered all the patient's questions.? To return to the wound healing center as needed or call sooner if the patient has any questions or concerns. 07/16/23 1213 <Electronically signed by Lindsey Walsh DPM> Cosigner Signature (if applicable): CC: ~ Signed [facility] Work Phone: 1(853) 569-671307-27-2023 Progress note Author Lindsey Nico [facility] June 25, 2023 11:36am Note Date/Time June 25, 2023 10:1 2am [facility] [address] [place] [address] Progress Note - Wound Care 06/25/23 1012 MR#: [id number] Acct: [id number] Name: VICKIE GONZALEZ Rep #:[id number] 07 : 1955 67 From: Lindsey sykes DPM PCP: Dr. Nicol Ibanez MD Status:REG RCR Location: History of Present Illness Date of Service: 06/25/23 Chief Complaint: Left medial lower extremity ulceration History of Wound: Patient is a 67-year-old female with past medical history of basal cell carcinoma excised 02/04/2023 of the medial malleolus of the left lower extremity, HTN, obesity, knee replacement, and aortic valve insufficiency with murmur, SOB on exertion, and s/p double vessel coronary artery bypass. She states that she was sent by her primary care Dr. Bhavik Barker for evaluation of anodular and infiltrative basal cell carcinoma in which she saw Dr. Lisa Pryor MD and underwent Mohs excision of the cancer site. Preoperative size of the lesion was noted to be 1.5 cm x 0.8 cm at the left distal pretibial region with final excised the defect size of 1.8 cm x 1.0 cm. She underwent local wound care in office however distance became a factor and she would like to continue to follow-up locally at the wound care center at [facility]. She states following a few days after the procedure she was on the treadmill and did have some swelling of the lower extremity site to which she feels may have worsened the wound. States she will continue to follow with dermatology for continued monitoring/follow-up. She currently denies any N/V/F/chills. Denies further complaints. Subjective Subjective This is a 67-year-old female who presents to the wound care center today for follow-up of left medial ankle ulceration s/p Mohs excision of basal cell carcinoma.? She had been changing outer dressings as needed and has left the graft in place. She believes the wound is closed today. ?Denies any constitutional symptoms today.? Denies further complaints today. Objective Data Objective Data Vital Signs: Vital Signs Temp Pulse Resp BP 97 F L 82 20 H 206/101 H 06/25/23 09:48 06/25/23 09:48 06/25/23 09:48 06/25/23 09:48 Weight: 102.058 kg Body Mass Index (BMI) 36.3 Physical Exam Const alert, oriented x3 and no apparent distress General Appearance: cooperative HEENT normocephalic Eyes General Eye: normal appearance of both eyes Neck General: normal visual inspection Lymph Lymphatic: no lymphadenopathy noted and no lymphedema noted Resp normal respiratory effort Cardio regular rate and regular rhythm Extremity normal capillary refill, no joint enlargement, no calf tenderness and no pedal edema Extremity Narrative: DP and PT pulses are palpable bilateral.? Capillary fill time adequate to the digits bilaterally.? She is noted to have a vascular malformation with reddish purplish discoloration to the anterior left lower extremity extending proximallyto the thigh and up to the hip. Musculoskeletal: Muscle strength 5 of 5 age-appropriate.? Does have second digithammertoe deformity bilateral, this is flexible.? Decreased range of motion of the first MTPJ without pain or crepitus bilateral and ankle joint with the knee in extension without pain and crepitus noted bilaterally. Skin no rashes or lesions noted, skin turgor normal and no jaundice Wound Narrative: Ulceration to the anterior aspect of the medial malleolus of the left lower extremity s/p Mohs excision of nodular infiltrative basal cell carcinoma.? Ulcerative site has healed today. No purulent drainage, no malodor, no erythema, no visible abscess formation, no palpable fluctuance/bogginess, no lymphangitis. Neuro moves all extremities Debridement Note Debridement Note No debridement was completed: No debridement was completed today Post-Debridement Measurements and Additional Note: Post-Debridement Measurements/Treatment - Nurse 1 - General Ulcer Assessment Start: 06/04/23 10:15 Freq: Status: Active Protocol: ELLEN Activity Type Activity Date Activity User E-sign Co-sign Detail Recorded Client Recorded Date Recorded By Document 06/04/23 10:15 AK [id number] 06/04/23 10:17 AK Document 06/18/23 10:58 [id number] 06/18/23 11:01 Document 06/25/23 09:48 DL [id number] 06/25/23 09:56 DL 06/04/23 06/18/23 06/25/23 10:15 10:58 09:48 - Today's Visit Information Type of service Follow-up Visit Follow-up Visit Follow-up Visit (Physician/LAND ACQUISITION MANAGER (Physician/LAND ACQUISITION MANAGER (Physician/LAND ACQUISITION MANAGER ) ) ) Arrival Mode Ambulatory Ambulatory Ambulatory Transfer Assistance None Patient Identification Verified (Name & No Yes Yes ) Patient Requires Transmission-Based No No No Precautions Safety Precautions NA NA Height and Weight Body Mass Index (BMI) 36.3 36.3 36.3 BMI Classification Obese Obese Obese Vital Signs Temperature (97.8 F-99.1 F) 96.2 F L 97 F L Temperature Source Temporal Temporal Pulse Rate (60-100) 69 82 Pulse Location Monitor Monitor Respiratory Rate (12-18) 20 H Respiratory rate source Observation Blood Pressure (90/60-120/80) 132/69 H 168/72 H 206/101 H Blood Pressure Mean (mm Hg) 90 104 136 Source Monitor Monitor Monitor History Since Last Visit- (Skip if this is Patient's initial visit) Have you changed medications since your No No No last visit? Any new allergies or adverse reactions No No No Had a fall/change in ADL's that may No No No increase risk of falls Signs or symptoms of abuse and/or No No No neglect since last visit Have you been in the hospital since your No No No last visit? Has dressing in place as prescribed Yes Yes Yes Has compression in place as prescribed Yes Yes N/A Has offloadiing in place as prescribed N/A N/A Yes Experienced any changes in pain level or No No No management Left Footwear Regular Shoe Regular Shoe Right Footwear Regular Shoe Regular Shoe Pain Scale: 0-10 Numeric Is Patient Pain Free? Yes Yes Yes WC - Nurse 1 - General Ulcer Measurement Start: 06/04/23 10:15 Freq: Status: Active Protocol: Activity Type Activity Date Activity User E-sign Co-sign Detail Recorded Client Recorded Date Recorded By Document 06/04/23 10:15 AK [id number] 06/04/23 10:17 AK Document 06/18/23 10:58 [id number] 06/18/23 11:01 Document 06/25/23 09:48 DL [id number] 06/25/23 09:56 DL 06/04/23 06/18/23 06/25/23 10:15 10:58 09:48 Wound Center Nurse 1 #1 L medial ankle -Combined with other wound No No -Current Size (cm) - Length 0.8 0.6 0.1 -Current Size (cm) - Width 1 1.8 0.1 -Current Size (cm) - Depth 0.1 0.1 0.1 -Total Square Cm 0.8 1.08 0.01 -Date of Last Picture (Recall this 06/04/23 06/18/23 field) -Photo Taken Yes Yes -Tunneling No No -Undermining/Tunneling No No -Circular Undermining No No -Change in Wound Grade/Stage No No -Exudate Amt Small Small None Present -Exudate Type Serosanguineous Serosanguineous -Wound Margin Distinct, Distinct, Thickened Outline Outline Attached Attached -Granulation Amt Medium (34-66%) None Present (0 None Present (0 %) %) -Granulation Quality [place] N/A -Slough/Fibrin Yes No -Necrosis Amt Medium (34-66%) None Present (0 Large (67-100%) %) -Necrotic Tissue Type Adherent Slough Eschar -Structure Exposed N/A N/A N/A -Texture (Nighat-wound Skin Appearance) No Abnormality, No Abnormality, Scarring Assessed Assessed -Moisture (Nighat-wound Skin Appearance) No Abnormality, No Abnormality, Dry/Scaly Assessed Assessed -Color (Nighat-wound Skin Appearance) No Abnormality, No Abnormality, Hemosiderin Assessed Assessed Staining -Temperature (Nighat-wound Skin No Abnormality No Abnormality No Abnormality Appearance) (Pt Warm) (Pt Warm) (Pt Warm) -Tenderness on Palpation (Nighat-wound No No No Skin Appearance) -Ulcer Cleansing Rinsed/ Soap and Water Not Cleansed Irrigated with Saline -Foul Odor after Cleansing No No No -Anesthetic Used 5% Lidocaine 5% Lidocaine 5% Lidocaine Gel Gel Gel -Wound Comment(s) scabbed 20.7 Left Calf (cm) 38 36.5 Left Ankle (cm) 21 20.7 WC - Nurse 2 - General Ulcer CM Notes Start: 06/04/23 10:15 Freq: Status: Active Protocol: Activity Type Activity Date Activity User E-sign Co-sign Detail Recorded Client Recorded Date Recorded By Document 06/04/23 12:01 PL [id number] 06/04/23 12:02 PL Document 06/18/23 12:17 PL [id number] 06/18/23 12:19 PL 06/04/23 06/18/23 12:01 12:17 Wound Center Nurse 2 #1 L medial ankle -Time 10:26 10:02 -Correct Patient Yes Yes -Correct Side, Site, Position Yes Yes -Correct Procedure Yes Yes -Procedure Performed Yes Yes -Type of Procedure Debridement Debridement -Clinical Debridement Subcutaneous Subcutaneous -Tissue Removed Subcutaneous Subcutaneous -Post Debridement (cm) - Length 0.6 0.4 -Post Debridement (cm) - Width 0.8 0.3 -Post Debridement (cm) - Depth 0.2 0.1 -Total Square (Post) (cm) 0.48 0.12 -Area of Debridement (cm) - Length 0.6 0.4 -Area of Debridement (cm) - Width 0.8 0.3 -Total Square (Area) (cm) 0.48 0.12 -Tunneling No No -Undermining/Tunneling No No -Circular Undermining No No -Wound/Ulcer Outcome Not Healed Not Healed -Ulcer Cleansing Rinsed/ Rinsed/ Irrigated with Irrigated with Saline Saline -Foul Odor after Cleansing No No -Bioengineered Tissue Yes No -Type of Bioengineered Tissue Epifix 18mm Epifix 18mm Disc Disc -Expiration Date 02/29/28 03/30/28 -Product Lot Number [id number] -Percent Used 100 100 -Bleeding Controlled with Pressure Pressure -Treatment Response Procedure Procedure Tolerated Well Tolerated Well -Debridement - Subq, 1st 20sq cm No No -Apply Skin Sub - 1st 25 sq cm - Legs 1 1 -Epifix 18mm Disc 3 3 Pain Scale: 0-10 Numeric Is Patient Pain Free? Yes Yes - Nurse 3 - General Ulcer D/C NN Start: 06/04/23 10:15 Freq: Status: Active Protocol: Activity Type Activity Date Activity User E-sign Co-sign Detail Recorded Client Recorded Date Recorded By Document 06/04/23 10:49 [id number] 06/04/23 10:49 Document 06/18/23 10:58 [id number] 06/18/23 11:01 06/04/23 06/18/23 10:49 10:58 Wound Care Center Nurse 3 #1 L medial ankle -Ulcer Cleansing Rinsed/ Irrigated with Saline -Foul Odor after Cleansing No -Negative Pressure Wound Therapy N/A -Primary Dressing Covered/Secured with Dry Gauze & Dry Gauze & Roll Gauze, Roll Gauze, Secured with Secured with Tape Tape LLE -Lotion applied to leg before No compression wrap -Tubular Bandage Single Layer Single Layer -Size of Tubigrip Used Size D Size D -Size D ($) 1 1 Vital Signs Blood Pressure (90/60-120/80) 168/72 H Blood Pressure Mean (mm Hg) 104 Source Monitor Pain Scale: 0-10 Numeric Is Patient Pain Free? Yes Yes - Visit Discharge Discharge Condition Stable Ambulatory Status Ambulatory Transportation Private Auto Medication Reconcilliation completed & No provided to patient/care provider Clinical Summary of Care Provided Yes Assessment/Plan Assessment/Plan (1) Non-pressure chronic ulcer of left calf with fat layer exposed: CODE(S): L97.222 - Non-pressure chronic ulcer of left calf with fat layer exposed (2) Non-pressure chronic ulcer of skin of other sites with muscle involvement without evidence of necrosis: CODE(S): L98.495 - Non-pressure chronic ulcer of skin of other sites with muscle involvement without evidence of necrosis (3) Basal cell carcinoma (BCC) of left lower extremity: CODE(S): C44.719 - Basal cell carcinoma of skin of left lower limb, including hip (4) BMI 40.0-44.9, adult: CODE(S): Z68.41 - Body mass index [BMI] 40.0-44.9, adult (5) HTN (hypertension): CODE(S): I10 - Essential (primary) hypertension PLAN: Plan Patient seen and evaluated She underwent excision of nodular and infiltrative basal cell carcinoma on 02/04/[address] Lisa Pryor MD. cancerous lesion measured 1.5 cm x 0.8 cm preexcision; post excision final defect size measured 1.8 cm x 1.0 cm.? She continues to follow with dermatology. Ulcerative site has healed today.?No signs of infection.? A Band-Aid was placed over the site for protection of fragile skin and she was instructed to continue application for next 7 to 10 days. Tubigrip stocking applied to lower extremity to aid in edema control.? She was instructed to continue to wear the Tubigrip daily and elevate legs at all times of rest to aid in edema control. Discussed signs and symptoms of infection to observe for.? She was instructed that if she notices any redness about the ulcer site that moves up the leg, or if she has any purulent drainage, or increasing foul odor, or if she experiences fever greater than 101 degree, nausea, vomiting, chills that these are signs of a progressing infection and she needs to report to the ED.? She voices understanding of this today. Discussed returning to the wound care center for final check in 3 weeks. She is agreeable to this. The following work up and care recommendations were made: Dressing: Band-Aid to site for next 7 to 10 days Wash: Soap and water Tissue growth optimization: None Offload: Elevation of lower extremity at all times of rest.? To ensure nothing rubs against the ulcerative site on the inside of the left leg. Vascular: DP and PT pulses palpable.? Adequate capillary fill time.? I do not feel her vascular status is impeding her healing. Edema: Elevation of the lower extremities at all times rest.? Once ulcerative site healed plan for compression stockings to aid in edema control. Infection: No signs of infection. Pain: May take [id number] Tylenol as needed for discomfort. Host factors: Basal cell carcinoma left lower extremity, edema. ? I answered all the patient's questions.? To return to the wound healing center in 3 weeks or call sooner if the patient has any questions or concerns. 06/25/23 1136 <Electronically signed by Lindsey Walsh DPM> Cosigner Signature (if applicable): CC: ~ Signed [facility] Work Phone: 1(319) 856-505907-20-2023 Progress note Author Lindsey Nico [facility] June 18, 2023 5:46pm Note Date/Time June 18, 2023 9:48 am [facility] [address] [place] [address] Progress Note - Wound Care 06/18/23 0947 MR#: [id number] Acct: [id number] Name: PARAGVICKIE CLEMONS Rep #:[id number] 07 : 1955 67 From: Lindsey sykes DPM PCP: Dr. Nicol Ibanez MD [facility] Location: History of Present Illness Date of Service: 06/18/23 Chief Complaint: Left medial lower extremity ulceration History of Wound: Patient is a 67-year-old female with past medical history of basal cell carcinoma excised 02/04/2023 of the medial malleolus of the left lower extremity, HTN, obesity, knee replacement, and aortic valve insufficiency with murmur, SOB on exertion, and s/p double vessel coronary artery bypass. She states that she was sent by her primary care Dr. Bhavik Barker for evaluation of anodular and infiltrative basal cell carcinoma in which she saw Dr. Lisa Pryor MD and underwent Mohs excision of the cancer site. Preoperative size of the lesion was noted to be 1.5 cm x 0.8 cm at the left distal pretibial region with final excised the defect size of 1.8 cm x 1.0 cm. She underwent local wound care in office however distance became a factor and she would like to continue to follow-up locally at the wound care center at [facility]. She states following a few days after the procedure she was on the treadmill and did have some swelling of the lower extremity site to which she feels may have worsened the wound. States she will continue to follow with dermatology for continued monitoring/follow-up. She currently denies any N/V/F/chills. Denies further complaints. Subjective Subjective This is a 67-year-old female who presents to the wound care center today for follow-up of left medial ankle ulceration s/p Mohs excision of basal cell carcinoma.? She had been changing outer dressings as needed and has left the graft in place. She has noticed the wound is getting smaller with continued graft application. ?Denies any constitutional symptoms today.? Denies further complaints today. Objective Data Objective Data Vital Signs: Vital Signs Temp Pulse Resp BP 96.2 F L 69 18 132/69 H 06/04/23 10:15 06/04/23 10:15 05/30/23 01:32 06/04/23 10:15 Weight: 102.058 kg Body Mass Index (BMI) 36.3 Physical Exam Const alert, oriented x3 and no apparent distress General Appearance: cooperative HEENT normocephalic Eyes General Eye: normal appearance of both eyes Neck General: normal visual inspection Lymph Lymphatic: no lymphadenopathy noted and no lymphedema noted Resp normal respiratory effort Cardio regular rate and regular rhythm Extremity normal capillary refill, no joint enlargement, no calf tenderness and no pedal edema Extremity Narrative: DP and PT pulses are palpable bilateral.? Capillary fill time adequate to the digits bilaterally.? She is noted to have a vascular malformation with reddish purplish discoloration to the anterior left lower extremity extending proximallyto the thigh and up to the hip. Musculoskeletal: Muscle strength 5 of 5 age-appropriate.? Does have second digithammertoe deformity bilateral, this is flexible.? Decreased range of motion of the first MTPJ without pain or crepitus bilateral and ankle joint with the knee in extension without pain and crepitus noted bilaterally. Skin no rashes or lesions noted, skin turgor normal and no jaundice Wound Narrative: Ulceration to the anterior aspect of the medial malleolus of the left lower extremity s/p Mohs excision of nodular infiltrative basal cell carcinoma.? Ulcerative site demonstrates mixed fibrogranular tissue with well-defined borders and atrophic wound margin.? No purulent drainage, no malodor, no erythema, no visible abscess formation, no palpable fluctuance/bogginess, no lymphangitis. Neuro moves all extremities Debridement Note Debridement Note Wound debrided: Left lower extremity Laterality: Left Wound Grade/Stage: Moyer stage I Type of Debridement: Excisional debridement Anesthesia Used: 5% Lidocaine Gel Depth: Down to and including healthy tissue and in the subcutaneous layer Percentage of wound debrided: 100 Instrument Used: 5mm curette Tissue Removed: Fibrous, devitalized subcutaneous, biofilm, slough Severity: Fat Layer Exposed Amount of bleeding with debridement: Mild Bleeding Controlled with: Compression and gauze Patient tolerated procedure: Patient tolerated procedure well Post-Debridement Measurements and Additional Note: Post-Debridement Measurements/Treatment - Nurse 1 - General Ulcer Assessment Start: 06/04/23 10:15 Freq: Status: Active Protocol: [email or web address].TYE Activity Type Activity Date Activity User E-sign Co-sign Detail Recorded Client Recorded Date Recorded By Document 06/04/23 10:15 DONNIE [id number] 06/04/23 10:17 DONNIE 06/04/23 10:15 WC - Today's Visit Information Type of service Follow-up Visit (Physician/LAND ACQUISITION MANAGER ) Arrival Mode Ambulatory Patient Identification Verified (Name & No ) Patient Requires Transmission-Based No Precautions Safety Precautions NA Height and Weight Body Mass Index (BMI) 36.3 BMI Classification Obese Vital Signs Temperature (97.8 F-99.1 F) 96.2 F L Temperature Source Temporal Pulse Rate (60-100) 69 Pulse Location Monitor Blood Pressure (90/60-120/80) 132/69 H Blood Pressure Mean (mm Hg) 90 Source Monitor History Since Last Visit- (Skip if this is Patient's initial visit) Have you changed medications since your No last visit? Any new allergies or adverse reactions No Had a fall/change in ADL's that may No increase risk of falls Signs or symptoms of abuse and/or No neglect since last visit Have you been in the hospital since your No last visit? Has dressing in place as prescribed Yes Has compression in place as prescribed Yes Has offloadiing in place as prescribed N/A Experienced any changes in pain level or No management Left Footwear Regular Shoe Right Footwear Regular Shoe Pain Scale: 0-10 Numeric Is Patient Pain Free? Yes - Nurse 1 - General Ulcer Measurement Start: 06/04/23 10:15 Freq: Status: Active Protocol: Activity Type Activity Date Activity User E-sign Co-sign Detail Recorded Client Recorded Date Recorded By Document 06/04/23 10:15 AK [id number] 06/04/23 10:17 AK 06/04/23 10:15 Wound Center Nurse 1 #1 L medial ankle -Combined with other wound No -Current Size (cm) - Length 0.8 -Current Size (cm) - Width 1 -Current Size (cm) - Depth 0.1 -Total Square Cm 0.8 -Date of Last Picture (Recall this 06/04/23 field) -Photo Taken Yes -Tunneling No -Undermining/Tunneling No -Circular Undermining No -Change in Wound Grade/Stage No -Exudate Amt Small -Exudate Type Serosanguineous -Wound Margin Distinct, Outline Attached -Granulation Amt Medium (34-66%) -Granulation Quality [place] -Slough/Fibrin Yes -Necrosis Amt Medium (34-66%) -Necrotic Tissue Type Adherent Slough -Structure Exposed N/A -Texture ([place]ighat-wound Skin Appearance) No Abnormality, Assessed -Moisture ([place]ighat-wound Skin Appearance) No Abnormality, Assessed -Color (Nighat-wound Skin Appearance) No Abnormality, Assessed -Temperature ([place]ig[place]-wound Skin No Abnormality Appearance) (Pt Warm) -Tenderness on Palpation (Nighat-wound No Skin Appearance) -Ulcer Cleansing Rinsed/ Irrigated with Saline -Foul Odor after Cleansing No -Anesthetic Used 5% Lidocaine Gel Left Calf (cm) 38 Left Ankle (cm) 21 WC - Nurse 2 - General Ulcer CM Notes Start: 06/04/23 10:15 Freq: Status: Active Protocol: Activity Type Activity Date Activity User E-sign Co-sign Detail Recorded Client Recorded Date Recorded By Document 06/04/23 12:01 PL [id number] 06/04/23 12:02 PL 06/04/23 12:01 Wound Center Nurse 2 #1 L medial ankle -Time 10:26 -Correct Patient Yes -Correct Side, Site, Position Yes -Correct Procedure Yes -Procedure Performed Yes -Type of Procedure Debridement -Clinical Debridement Subcutaneous -Tissue Removed Subcutaneous -Post Debridement (cm) - Length 0.6 -Post Debridement (cm) - Width 0.8 -Post Debridement (cm) - Depth 0.2 -Total Square (Post) (cm) 0.48 -Area of Debridement (cm) - Length 0.6 -Area of Debridement (cm) - Width 0.8 -Total Square (Area) (cm) 0.48 -Tunneling No -Undermining/Tunneling No -Circular Undermining No -Wound/Ulcer Outcome Not Healed -Ulcer Cleansing Rinsed/ Irrigated with Saline -Foul Odor after Cleansing No -Bioengineered Tissue Yes -Type of Bioengineered Tissue Epifix 18mm Disc -Expiration Date 02/29/28 -Product Lot Number [id number] -Percent Used 100 -Bleeding Controlled with Pressure -Treatment Response Procedure Tolerated Well -Debridement - Subq, 1st 20sq cm No -Apply Skin Sub - 1st 25 sq cm - Legs 1 -Epifix 18mm Disc 3 Pain Scale: 0-10 Numeric Is Patient Pain Free? Yes - Nurse 3 - General Ulcer D/C NN Start: 06/04/23 10:15 Freq: Status: Active Protocol: Activity Type Activity Date Activity User E-sign Co-sign Detail Recorded Client Recorded Date Recorded By Document 06/04/23 10:49 [id number] 06/04/23 10:49 [email or web address] 06/04/23 10:49 Wound Care Center Nurse 3 #1 L medial ankle -Ulcer Cleansing Rinsed/ Irrigated with Saline -Primary Dressing Covered/Secured with Dry Gauze & Roll Gauze, Secured with Tape LLE -Tubular Bandage Single Layer -Size of Tubigrip Used Size D -Size D ($) 1 Pain Scale: 0-10 Numeric Is Patient Pain Free? Yes - Visit Discharge Discharge Condition Stable Ambulatory Status Ambulatory Transportation Private Auto Medication Reconcilliation completed & No provided to patient/care provider Clinical Summary of Care Provided Yes Assessment/Plan Assessment/Plan (1) Non-pressure chronic ulcer of left calf with fat layer exposed: CODE(S): L97.222 - Non-pressure chronic ulcer of left calf with fat layer exposed (2) Non-pressure chronic ulcer of skin of other sites with muscle involvement without evidence of necrosis: CODE(S): L98.495 - Non-pressure chronic ulcer of skin of other sites with muscle involvement without evidence of necrosis (3) Basal cell carcinoma (BCC) of left lower extremity: CODE(S): C44.719 - Basal cell carcinoma of skin of left lower limb, including hip (4) BMI 40.0-44.9, adult: CODE(S): Z68.41 - Body mass index [BMI] 40.0-44.9, adult (5) HTN (hypertension): CODE(S): I10 - Essential (primary) hypertension PLAN: Plan Patient seen and evaluated She underwent excision of nodular and infiltrative basal cell carcinoma on 02/04/[address] Lisa Pryor MD. cancerous lesion measured 1.5 cm x 0.8 cm preexcision; post excision final defect size measured 1.8 cm x 1.0 cm.? She continues to follow with dermatology. Ulcerative site underwent debridement as noted in the clinical panel above.? Ulceration measures 0.4 cm x 0.3 cm x 0.1 cm.? No signs of infection.? Healthy bleeding granular tissue noted postdebridement.? EpiFix graft #8 applied to the ulcerative bed today and dressed with Adaptic touch, Steri-Strips and dry sterile dressing.?She is to change the outer dressing as needed.?She was instructed to not get the dressings wet.? Tubigrip stocking applied to lower extremity to aid in edema control.? She was instructed to continue to wear the Tubigrip daily and elevate legs at all times of rest to aid in edema control. Ulceration is noted to have continued improvement in reduction of size versus previous visit and is nearing closure. Discussed adequate protein intake to aid in her wound healing.? She may also take Robles supplementation to aid wound healing. Discussed signs and symptoms of infection to observe for.? She was instructed that if she notices any redness about the ulcer site that moves up the leg, or if she has any purulent drainage, or increasing foul odor, or if she experiences fever greater than 101 degree, nausea, vomiting, chills that these are signs of a progressing infection and she needs to report to the ED.? She voices understanding of this today. The following work up and care recommendations were made: Dressing: EpiFix, Adaptic touch, Steri-Strips and dry sterile dressing.? Change outer dressings as needed Wash: Do not get wet Tissue growth optimization: EpiFix Offload: Elevation of lower extremity at all times of rest.? To ensure nothing rubs against the ulcerative site on the inside of the left leg. Vascular: DP and PT pulses palpable.? Adequate capillary fill time.? I do not feel her vascular status is impeding her healing. Edema: Elevation of the lower extremities at all times rest.? Once ulcerative site healed plan for compression stockings to aid in edema control. Infection: No signs of infection. Pain: May take [id number] Tylenol as needed for discomfort. Host factors: Basal cell carcinoma left lower extremity, edema. ? I answered all the patient's questions.? To return to the wound healing center in 1 week or call sooner if the patient has any questions or concerns. 06/18/23 1746 <Electronically signed by Lindsey Walsh DPM> Cosigner Signature (if applicable): CC: ~ Signed [facility] Work Phone: 1(281) 519-289907-06-2023 Progress note Author Lindsey Nico [facility] June 04, 2023 1:00pm Note Date/Time June 04, 2023 1:00p [facility] [address] [place] [address] Progress Note - Wound Care 06/04/23 1255 MR#: [id number] Acct: [id number] Name: VICKIE GONZALEZ Rep #:[id number] 13 : 1955 67 From: Lindsey sykes DPM PCP: Dr. Nicol Ibanez MD Status:REG R Location: History of Present Illness Date of Service: 06/04/23 Chief Complaint: Left medial lower extremity ulceration History of Wound: Patient is a 67-year-old female with past medical history of basal cell carcinoma excised 02/04/2023 of the medial malleolus of the left lower extremity, HTN, obesity, knee replacement, and aortic valve insufficiency with murmur, SOB on exertion, and s/p double vessel coronary artery bypass. She states that she was sent by her primary care Dr. Bhavik Barker for evaluation of anodular and infiltrative basal cell carcinoma in which she saw Dr. Lisa Pryor MD and underwent Mohs excision of the cancer site. Preoperative size of the lesion was noted to be 1.5 cm x 0.8 cm at the left distal pretibial region with final excised the defect size of 1.8 cm x 1.0 cm. She underwent local wound care in office however distance became a factor and she would like to continue to follow-up locally at the wound care center at [facility]. She states following a few days after the procedure she was on the treadmill and did have some swelling of the lower extremity site to which she feels may have worsened the wound. States she will continue to follow with dermatology for continued monitoring/follow-up. She currently denies any N/V/F/chills. Denies further complaints. Subjective Subjective This is a 67-year-old female who presents to the wound care center today for follow-up of left medial ankle ulceration s/p Mohs excision of basal cell carcinoma.? She had been changing outer dressings as needed and has left the graft in place.?Denies any constitutional symptoms today.? Denies further complaints today. Objective Data Objective Data Vital Signs: Vital Signs Temp Pulse Resp BP 96.2 F L 69 18 132/69 H 06/04/23 10:15 06/04/23 10:15 05/30/23 01:32 06/04/23 10:15 Weight: 102.058 kg Body Mass Index (BMI) 36.3 Physical Exam Const alert, oriented x3 and no apparent distress General Appearance: cooperative HEENT normocephalic Eyes General Eye: normal appearance of both eyes Neck General: normal visual inspection Lymph Lymphatic: no lymphadenopathy noted and no lymphedema noted Resp normal respiratory effort Cardio regular rate and regular rhythm Extremity normal capillary refill, no joint enlargement, no calf tenderness and no pedal edema Extremity Narrative: DP and PT pulses are palpable bilateral.? Capillary fill time adequate to the digits bilaterally.? She is noted to have a vascular malformation with reddish purplish discoloration to the anterior left lower extremity extending proximallyto the thigh and up to the hip. Musculoskeletal: Muscle strength 5 of 5 age-appropriate.? Does have second digithammertoe deformity bilateral, this is flexible.? Decreased range of motion of the first MTPJ without pain or crepitus bilateral and ankle joint with the knee in extension without pain and crepitus noted bilaterally. Skin no rashes or lesions noted, skin turgor normal and no jaundice Wound Narrative: Ulceration to the anterior aspect of the medial malleolus of the left lower extremity s/p Mohs excision of nodular infiltrative basal cell carcinoma.? Ulcerative site demonstrates mixed fibrogranular tissue with well-defined borders and atrophic wound margin.? No purulent drainage, no malodor, no erythema, no visible abscess formation, no palpable fluctuance/bogginess, no lymphangitis. Neuro moves all extremities Debridement Note Debridement Note Wound debrided: Left lower extremity Laterality: Left Wound Grade/Stage: Moyer stage I Type of Debridement: Excisional debridement Anesthesia Used: 5% Lidocaine Gel Depth: Down to and including healthy tissue and in the subcutaneous layer Percentage of wound debrided: 100 Instrument Used: 5mm curette Tissue Removed: Fibrous, devitalized subcutaneous, biofilm, slough Severity: Fat Layer Exposed Amount of bleeding with debridement: Mild Bleeding Controlled with: Compression and gauze Patient tolerated procedure: Patient tolerated procedure well Post-Debridement Measurements and Additional Note: Post-Debridement Measurements/Treatment - Nurse 1 - General Ulcer Assessment Start: 06/04/23 10:15 Freq: Status: Active Protocol: SAKSHI.TYE Activity Type Activity Date Activity User E-sign Co-sign Detail Recorded Client Recorded Date Recorded By Document 06/04/23 10:15 DONNIE [id number] 06/04/23 10:17 DONNIE 06/04/23 10:15 - Today's Visit Information Type of service Follow-up Visit (Physician/LAND ACQUISITION MANAGER ) Arrival Mode Ambulatory Patient Identification Verified (Name & No ) Patient Requires Transmission-Based No Precautions Safety Precautions NA Height and Weight Body Mass Index (BMI) 36.3 BMI Classification Obese Vital Signs Temperature (97.8 F-99.1 F) 96.2 F L Temperature Source Temporal Pulse Rate (60-100) 69 Pulse Location Monitor Blood Pressure (90/60-120/80) 132/69 H Blood Pressure Mean (mm Hg) 90 Source Monitor History Since Last Visit- (Skip if this is Patient's initial visit) Have you changed medications since your No last visit? Any new allergies or adverse reactions No Had a fall/change in ADL's that may No increase risk of falls Signs or symptoms of abuse and/or No neglect since last visit Have you been in the hospital since your No last visit? Has dressing in place as prescribed Yes Has compression in place as prescribed Yes Has offloadiing in place as prescribed N/A Experienced any changes in pain level or No management Left Footwear Regular Shoe Right Footwear Regular Shoe Pain Scale: 0-10 Numeric Is Patient Pain Free? Yes WC - Nurse 1 - General Ulcer Measurement Start: 06/04/23 10:15 Freq: Status: Active Protocol: Activity Type Activity Date Activity User E-sign Co-sign Detail Recorded Client Recorded Date Recorded By Document 06/04/23 10:15 AK [id number] 06/04/23 10:17 AK 06/04/23 10:15 Wound Center Nurse 1 #1 L medial ankle -Combined with other wound No -Current Size (cm) - Length 0.8 -Current Size (cm) - Width 1 -Current Size (cm) - Depth 0.1 -Total Square Cm 0.8 -Date of Last Picture (Recall this 06/04/23 field) -Photo Taken Yes -Tunneling No -Undermining/Tunneling No -Circular Undermining No -Change in Wound Grade/Stage No -Exudate Amt Small -Exudate Type Serosanguineous -Wound Margin Distinct, Outline Attached -Granulation Amt Medium (34-66%) -Granulation Quality [place] -Slough/Fibrin Yes -Necrosis Amt Medium (34-66%) -Necrotic Tissue Type Adherent Slough -Structure Exposed N/A -Texture (Nighat-wound Skin Appearance) No Abnormality, Assessed -Moisture (Nighat-wound Skin Appearance) No Abnormality, Assessed -Color (Nighat-wound Skin Appearance) No Abnormality, Assessed -Temperature (Nighat-wound Skin No Abnormality Appearance) (Pt Warm) -Tenderness on Palpation (Nighat-wound No Skin Appearance) -Ulcer Cleansing Rinsed/ Irrigated with Saline -Foul Odor after Cleansing No -Anesthetic Used 5% Lidocaine Gel Left Calf (cm) 38 Left Ankle (cm) 21 WC - Nurse 2 - General Ulcer CM Notes Start: 06/04/23 10:15 Freq: Status: Active Protocol: Activity Type Activity Date Activity User E-sign Co-sign Detail Recorded Client Recorded Date Recorded By Document 06/04/23 12:01 PL [id number] 06/04/23 12:02 PL 06/04/23 12:01 Wound Center Nurse 2 #1 L medial ankle -Time 10:26 -Correct Patient Yes -Correct Side, Site, Position Yes -Correct Procedure Yes -Procedure Performed Yes -Type of Procedure Debridement -Clinical Debridement Subcutaneous -Tissue Removed Subcutaneous -Post Debridement (cm) - Length 0.6 -Post Debridement (cm) - Width 0.8 -Post Debridement (cm) - Depth 0.2 -Total Square (Post) (cm) 0.48 -Area of Debridement (cm) - Length 0.6 -Area of Debridement (cm) - Width 0.8 -Total Square (Area) (cm) 0.48 -Tunneling No -Undermining/Tunneling No -Circular Undermining No -Wound/Ulcer Outcome Not Healed -Ulcer Cleansing Rinsed/ Irrigated with Saline -Foul Odor after Cleansing No -Bioengineered Tissue Yes -Type of Bioengineered Tissue Epifix 18mm Disc -Expiration Date 02/29/28 -Product Lot Number [id number] -Percent Used 100 -Bleeding Controlled with Pressure -Treatment Response Procedure Tolerated Well -Debridement - Subq, 1st 20sq cm No -Apply Skin Sub - 1st 25 sq cm - Legs 1 -Epifix 18mm Disc 3 Pain Scale: 0-10 Numeric Is Patient Pain Free? Yes - Nurse 3 - General Ulcer D/C NN Start: 06/04/23 10:15 Freq: Status: Active Protocol: Activity Type Activity Date Activity User E-sign Co-sign Detail Recorded Client Recorded Date Recorded By Document 06/04/23 10:49 ARNOLDO [id number] 06/04/23 10:49 ARNOLDO 06/04/23 10:49 Wound Care Center Nurse 3 #1 L medial ankle -Ulcer Cleansing Rinsed/ Irrigated with Saline -Primary Dressing Covered/Secured with Dry Gauze & Roll Gauze, Secured with Tape LLE -Tubular Bandage Single Layer -Size of Tubigrip Used Size D -Size D ($) 1 Pain Scale: 0-10 Numeric Is Patient Pain Free? Yes WC - Visit Discharge Discharge Condition Stable Ambulatory Status Ambulatory Transportation Private Auto Medication Reconcilliation completed & No provided to patient/care provider Clinical Summary of Care Provided Yes Assessment/Plan Assessment/Plan (1) Non-pressure chronic ulcer of left calf with fat layer exposed: CODE(S): L97.222 - Non-pressure chronic ulcer of left calf with fat layer exposed (2) Non-pressure chronic ulcer of skin of other sites with muscle involvement without evidence of necrosis: CODE(S): L98.495 - Non-pressure chronic ulcer of skin of other sites with muscle involvement without evidence of necrosis (3) Basal cell carcinoma (BCC) of left lower extremity: CODE(S): C44.719 - Basal cell carcinoma of skin of left lower limb, including hip (4) BMI 40.0-44.9, adult: CODE(S): Z68.41 - Body mass index [BMI] 40.0-44.9, adult (5) HTN (hypertension): CODE(S): I10 - Essential (primary) hypertension PLAN: Plan Patient seen and evaluated She underwent excision of nodular and infiltrative basal cell carcinoma on 02/04/[address] Lisa Pryor MD. cancerous lesion measured 1.5 cm x 0.8 cm preexcision; post excision final defect size measured 1.8 cm x 1.0 cm.? She continues to follow with dermatology. Ulcerative site underwent debridement as noted in the clinical panel above.? Ulceration measures 0.6 cm x 0.8 cm x 0.1 cm.? No signs of infection.? Healthy bleeding granular tissue noted postdebridement.? EpiFix graft #7 applied to the ulcerative bed today and dressed with Adaptic touch, Steri-Strips and dry sterile dressing.?She is to change the outer dressing as needed.?She was instructed to not get the dressings wet.? Tubigrip stocking applied to lower extremity to aid in edema control.? She was instructed to continue to wear the Tubigrip daily and elevate legs at all times of rest to aid in edema control. Ulceration is noted to have continued improvement in reduction of size versus previous visit. Discussed adequate protein intake to aid in her wound healing.? She may also take Robles supplementation to aid wound healing. Discussed signs and symptoms of infection to observe for.? She was instructed that if she notices any redness about the ulcer site that moves up the leg, or if she has any purulent drainage, or increasing foul odor, or if she experiences fever greater than 101 degree, nausea, vomiting, chills that these are signs of a progressing infection and she needs to report to the ED.? She voices understanding of this today. The following work up and care recommendations were made: Dressing: EpiFix, Adaptic touch, Steri-Strips and dry sterile dressing.? Change outer dressings as needed Wash: Do not get wet Tissue growth optimization: EpiFix Offload: Elevation of lower extremity at all times of rest.? To ensure nothing rubs against the ulcerative site on the inside of the left leg. Vascular: DP and PT pulses palpable.? Adequate capillary fill time.? I do not feel her vascular status is impeding her healing. Edema: Elevation of the lower extremities at all times rest.? Once ulcerative site healed plan for compression stockings to aid in edema control. Infection: No signs of infection. Pain: May take [id number] Tylenol as needed for discomfort. Host factors: Basal cell carcinoma left lower extremity, edema. ? I answered all the patient's questions.? To return to the wound healing center in 2 weeks or call sooner if the patient has any questions or concerns. 06/04/23 1300 <Electronically signed by Lindsey Walsh DPM> Cosigner Signature (if applicable): CC: ~ Signed [facility] Work Phone: [phone]) 394-499306-29-2023 Progress note Author Lindsey Walsh [facility] May 28, 2023 10:20am Note Date/Time May 28, 2023 9:53 am [facility] [address] [place] [id number] Progress Note - Wound Care 05/28/23 0952 MR#: [id number] Acct: [id number] Name: VICKIE GONZALEZ Rep #:[id number] 08 : 1955 67 From: Lindsey sykes DPM PCP: Dr. Nicol Ibanez MD Status:[facility] Location: History of Present Illness Date of Service: 05/28/23 Chief Complaint: Left medial lower extremity ulceration History of Wound: Patient is a 67-year-old female with past medical history of basal cell carcinoma excised 02/04/2023 of the medial malleolus of the left lower extremity, HTN, obesity, knee replacement, and aortic valve insufficiency with murmur, SOB on exertion, and s/p double vessel coronary artery bypass. She states that she was sent by her primary care Dr. Bhavik Barker for evaluation of anodular and infiltrative basal cell carcinoma in which she saw Dr. Lisa Pryor MD and underwent Mohs excision of the cancer site. Preoperative size of the lesion was noted to be 1.5 cm x 0.8 cm at the left distal pretibial region with final excised the defect size of 1.8 cm x 1.0 cm. She underwent local wound care in office however distance became a factor and she would like to continue to follow-up locally at the wound care center at [facility]. She states following a few days after the procedure she was on the treadmill and did have some swelling of the lower extremity site to which she feels may have worsened the wound. States she will continue to follow with dermatology for continued monitoring/follow-up. She currently denies any N/V/F/chills. Denies further complaints. Subjective Subjective This is a 67-year-old female who presents to the wound care center today for follow-up of left medial ankle ulceration s/p Mohs excision of basal cell carcinoma.? She had been changing outer dressings as needed and has left the graft in place.? She states she believes there is continued improvement. Statesshe believes the nerves are regenerating in this area as she can feel more aboutthe wound. Denies any constitutional symptoms today.? Denies further complaints today. Objective Data Objective Data Vital Signs: Vital Signs Temp Pulse Resp BP O2 Del Method 96.7 F L 67 18 142/67 H Room Air 05/21/23 11:54 05/21/23 11:54 05/14/23 09:34 05/21/23 11:54 05/14/23 09:34 Oxygen Delivery Method Room Air Weight: 102.058 kg Body Mass Index (BMI) 36.3 Physical Exam Const alert, oriented x3 and no apparent distress General Appearance: cooperative HEENT normocephalic Eyes General Eye: normal appearance of both eyes Neck General: normal visual inspection Lymph Lymphatic: no lymphadenopathy noted and no lymphedema noted Resp normal respiratory effort Cardio regular rate and regular rhythm Extremity normal capillary refill, no joint enlargement, no calf tenderness and no pedal edema Extremity Narrative: DP and PT pulses are palpable bilateral.? Capillary fill time adequate to the digits bilaterally.? She is noted to have a vascular malformation with reddish purplish discoloration to the anterior left lower extremity extending proximallyto the thigh and up to the hip. Musculoskeletal: Muscle strength 5 of 5 age-appropriate.? Does have second digithammertoe deformity bilateral, this is flexible.? Decreased range of motion of the first MTPJ without pain or crepitus bilateral and ankle joint with the knee in extension without pain and crepitus noted bilaterally. Skin no rashes or lesions noted, skin turgor normal and no jaundice Wound Narrative: Ulceration to the anterior aspect of the medial malleolus of the left lower extremity s/p Mohs excision of nodular infiltrative basal cell carcinoma.? Ulcerative site demonstrates mixed fibrogranular tissue with well-defined borders and atrophic wound margin.? No purulent drainage, no malodor, no erythema, no visible abscess formation, no palpable fluctuance/bogginess, no lymphangitis. Neuro moves all extremities Debridement Note Debridement Note Wound debrided: Left lower extremity Laterality: Left Wound Grade/Stage: Moyer stage I Type of Debridement: Excisional debridement Anesthesia Used: 5% Lidocaine Gel Depth: Down to and including healthy tissue and in the subcutaneous layer Percentage of wound debrided: 100 Instrument Used: 5mm curette Tissue Removed: Fibrous, devitalized subcutaneous, biofilm, slough Severity: Fat Layer Exposed Amount of bleeding with debridement: Mild Bleeding Controlled with: Compression and gauze Patient tolerated procedure: Patient tolerated procedure well Post-Debridement Measurements and Additional Note: Post-Debridement Measurements/Treatment - Nurse 1 - General Ulcer Assessment Start: 04/30/23 09:24 Freq: Status: Active Protocol: ELLEN Activity Type Activity Date Activity User E-sign Co-sign Detail Recorded Client Recorded Date Recorded By Document 04/30/23 09:24 [id number] 04/30/23 09:40 Document 05/07/23 09:26 AK [id number] 05/07/23 09:28 AK Document 05/14/23 09:34 [id number] 05/14/23 09:46 KW Document 05/21/23 11:54 AK [id number] 05/21/23 11:56 AK 04/30/23 05/07/23 05/14/23 09:24 09:26 09:34 - Today's Visit Information Type of service Follow-up Visit Follow-up Visit Follow-up Visit (Physician/LAND ACQUISITION MANAGER (Physician/LAND ACQUISITION MANAGER (Physician/LAND ACQUISITION MANAGER ) ) ) Arrival Mode Ambulatory Ambulatory Ambulatory Patient Identification Verified (Name & Yes Yes Yes ) Patient Requires Transmission-Based No No No Precautions Safety Precautions NA Height and Weight Body Mass Index (BMI) 36.3 36.3 36.3 BMI Classification Obese Obese Obese Vital Signs Temperature (97.8 F-99.1 F) 96.8 F L 96.7 F L 96.6 F L Temperature Source Temporal Temporal Temporal Pulse Rate (60-100) 75 69 Pulse Location Monitor Monitor Monitor Respiratory Rate (12-18) 18 18 Respiratory rate source Observation Oxygen Delivery Method Room Air Blood Pressure (90/60-120/80) 193/89 H 179/69 H Blood Pressure Mean (mm Hg) 123 105 Source Monitor Monitor Monitor Position Semi-Fowlers Sitting Blood Pressure Location Left Arm Left Arm History Since Last Visit- (Skip if this is Patient's initial visit) Have you changed medications since your No No No last visit? Any new allergies or adverse reactions No No No Had a fall/change in ADL's that may No No No increase risk of falls Signs or symptoms of abuse and/or No No No neglect since last visit Have you been in the hospital since your No No No last visit? Has dressing in place as prescribed Yes Yes Has compression in place as prescribed Yes Yes Has offloadiing in place as prescribed N/A N/A Experienced any changes in pain level or No No management Left Footwear Regular Shoe Regular Shoe Regular Shoe Right Footwear Regular Shoe Regular Shoe Regular Shoe Pain Scale: 0-10 Numeric Is Patient Pain Free? Yes Yes Yes 05/21/23 11:54 WC - Today's Visit Information Type of service Follow-up Visit (Physician/LAND ACQUISITION MANAGER ) Arrival Mode Ambulatory Patient Identification Verified (Name & No ) Patient Requires Transmission-Based No Precautions Safety Precautions NA Height and Weight Body Mass Index (BMI) 36.3 BMI Classification Obese Vital Signs Temperature (97.8 F-99.1 F) 96.7 F L Temperature Source Temporal Pulse Rate (60-100) 67 Pulse Location Monitor Respiratory Rate (12-18) Respiratory rate source Oxygen Delivery Method Blood Pressure (90/60-120/80) 142/67 H Blood Pressure Mean (mm Hg) 92 Source Monitor Position Blood Pressure Location History Since Last Visit- (Skip if this is Patient's initial visit) Have you changed medications since your No last visit? Any new allergies or adverse reactions No Had a fall/change in ADL's that may No increase risk of falls Signs or symptoms of abuse and/or No neglect since last visit Have you been in the hospital since your No last visit? Has dressing in place as prescribed Yes Has compression in place as prescribed N/A Has offloadiing in place as prescribed N/A Experienced any changes in pain level or No management Left Footwear Regular Shoe Right Footwear Regular Shoe Pain Scale: 0-10 Numeric Is Patient Pain Free? Yes WC - Nurse 1 - General Ulcer Measurement Start: 04/30/23 09:24 Freq: Status: Active Protocol: Activity Type Activity Date Activity User E-sign Co-sign Detail Recorded Client Recorded Date Recorded By Document 04/30/23 09:24 JF [id number] 04/30/23 09:40 JF Document 05/07/23 09:26 AK [id number] 05/07/23 09:28 AK Document 05/14/23 09:34 KW [id number] 05/14/23 09:46 KW Document 05/21/23 11:54 AK [id number] 05/21/23 11:56 AK 04/30/23 05/07/23 05/14/23 09:24 09:26 09:34 Wound Center Nurse 1 #1 L medial ankle -Combined with other wound No No -Current Size (cm) - Length 1.6 1.5 -Current Size (cm) - Width 1.5 1.1 -Current Size (cm) - Depth 0.4 0.3 -Total Square Cm 2.40 1.65 -Photo Taken Yes Yes -Epithelialization Small 1-33% -Tunneling No No -Undermining/Tunneling No No -Circular Undermining No No -Change in Wound Grade/Stage No -Exudate Amt Medium Medium -Exudate Type Serosanguineous Serosanguineous -Wound Margin Flat & Intact Distinct, Distinct, Outline Outline Attached Attached -Granulation Amt Medium (34-66%) Medium (34-66%) -Granulation Quality [place] -Slough/Fibrin Yes Yes -Necrosis Amt Small (1-33%) Medium (34-66%) -Necrotic Tissue Type Adherent Slough Adherent Slough -Structure Exposed N/A N/A -Texture (Nighat-wound Skin Appearance) Assessed No Abnormality, Assessed Assessed -Moisture (Nighat-wound Skin Appearance) Assessed,Dry/ No Abnormality, Scaly Assessed -Color (Nighat-wound Skin Appearance) Assessed Assessed, Assessed Hemosiderin Staining -Temperature (Nighat-wound Skin No Abnormality No Abnormality Appearance) (Pt Warm) (Pt Warm) -Tenderness on Palpation (Nighat-wound No No Skin Appearance) -Ulcer Cleansing Wound Cleanser Soap and Water -Foul Odor after Cleansing No No -Anesthetic Used 5% Lidocaine 5% Lidocaine 5% Lidocaine Gel Gel Gel Lower Limb Edema Present Yes No Left Calf (cm) 37.6 37 Left Ankle (cm) 21.1 21 05/21/23 11:54 Wound Center Nurse 1 #1 L medial ankle -Combined with other wound No -Current Size (cm) - Length 0.5 -Current Size (cm) - Width 0.4 -Current Size (cm) - Depth 0.2 -Total Square Cm 0.20 -Photo Taken Yes -Epithelialization -Tunneling No -Undermining/Tunneling No -Circular Undermining No -Change in Wound Grade/Stage No -Exudate Amt Small -Exudate Type -Wound Margin Distinct, Outline Attached -Granulation Amt Medium (34-66%) -Granulation Quality [place] -Slough/Fibrin Yes -Necrosis Amt Medium (34-66%) -Necrotic Tissue Type -Structure Exposed N/A -Texture (Nighat-wound Skin Appearance) Assessed, Scarring -Moisture (Nigaht-wound Skin Appearance) No Abnormality, Assessed -Color (Nighat-wound Skin Appearance) No Abnormality, Assessed -Temperature (Nighat-wound Skin No Abnormality Appearance) (Pt Warm) -Tenderness on Palpation (Nighat-wound No Skin Appearance) -Ulcer Cleansing Rinsed/ Irrigated with Saline -Foul Odor after Cleansing No -Anesthetic Used 5% Lidocaine Gel Lower Limb Edema Present Left Calf (cm) Left Ankle (cm) WC - Nurse 2 - General Ulcer CM Notes Start: 04/30/23 09:24 Freq: Status: Active Protocol: Activity Type Activity Date Activity User E-sign Co-sign Detail Recorded Client Recorded Date Recorded By Document 04/30/23 12:15 PL [id number] 04/30/23 12:17 PL Document 05/07/23 12:36 PL [id number] 05/07/23 12:38 PL Document 05/14/23 12:06 PL [id number] 05/14/23 12:08 PL Edit Result 05/14/23 12:06 PL (1) [id number] 05/15/23 12:47 PL Document 05/21/23 12:16 PL [id number] 05/21/23 12:17 PL (1) #1 L medial ankle - Debridement - Subq, 1st 20sq cm Yes => No - Apply Skin Sub - 1st 25 sq cm - Legs => 1 04/30/23 05/07/23 05/14/23 12:15 12:36 12:06 Wound Center Nurse 2 #1 L medial ankle -Time 10:21 09:26 09:56 -Correct Patient Yes Yes Yes -Correct Side, Site, Position Yes Yes Yes -Correct Procedure Yes Yes Yes -Procedure Performed Yes Yes Yes -Type of Procedure Debridement Debridement Debridement -Clinical Debridement Subcutaneous Subcutaneous Subcutaneous -Tissue Removed Subcutaneous Subcutaneous Subcutaneous -Post Debridement (cm) - Length 1.5 1.4 1.1 -Post Debridement (cm) - Width 1.5 1.3 1.0 -Post Debridement (cm) - Depth 0.9 0.4 0.2 -Total Square (Post) (cm) 2.25 1.82 1.10 -Area of Debridement (cm) - Length 1.5 1.4 1.1 -Area of Debridement (cm) - Width 1.5 1.3 1.0 -Total Square (Area) (cm) 2.25 1.82 1.10 -Tunneling No No No -Undermining/Tunneling No No No -Circular Undermining No No No -Wound/Ulcer Outcome Not Healed Not Healed Not Healed -Ulcer Cleansing Rinsed/ Rinsed/ Rinsed/ Irrigated with Irrigated with Irrigated with Saline Saline Saline -Foul Odor after Cleansing No No No -Bioengineered Tissue Yes Yes Yes -Type of Bioengineered Tissue Epifix 18mm Epifix 18mm Epifix 18mm Disc Disc Disc -Expiration Date 01/29/28 01/29/28 02/29/28 -Product Lot Number [id number] -Percent Used 100 100 100 -Bleeding Controlled with Pressure Pressure Pressure -Treatment Response Procedure Procedure Procedure Tolerated Well Tolerated Well Tolerated Well -Debridement - Subq, 1st 20sq cm No No No -Apply Skin Sub - 1st 25 sq cm - Legs 1 1 1 -Epifix 18mm Disc 3 3 3 Pain Scale: 0-10 Numeric Is Patient Pain Free? Yes Yes Yes 05/21/23 12:16 Wound Center Nurse 2 #1 L medial ankle -Time 10:13 -Correct Patient Yes -Correct Side, Site, Position Yes -Correct Procedure Yes -Procedure Performed Yes -Type of Procedure Debridement -Clinical Debridement Subcutaneous -Tissue Removed Subcutaneous -Post Debridement (cm) - Length 0.9 -Post Debridement (cm) - Width 1.0 -Post Debridement (cm) - Depth 0.1 -Total Square (Post) (cm) 0.90 -Area of Debridement (cm) - Length 0.9 -Area of Debridement (cm) - Width 1.0 -Total Square (Area) (cm) 0.90 -Tunneling No -Undermining/Tunneling No -Circular Undermining No -Wound/Ulcer Outcome Not Healed -Ulcer Cleansing Rinsed/ Irrigated with Saline -Foul Odor after Cleansing No -Bioengineered Tissue Yes -Type of Bioengineered Tissue Epifix 18mm Disc -Expiration Date 02/29/28 -Product Lot Number [id number] -Percent Used 100 -Bleeding Controlled with Pressure -Treatment Response Procedure Tolerated Well -Debridement - Subq, 1st 20sq cm No -Apply Skin Sub - 1st 25 sq cm - Legs 1 -Epifix 18mm Disc 3 Pain Scale: 0-10 Numeric Is Patient Pain Free? Yes WC - Nurse 3 - General Ulcer D/C NN Start: 04/30/23 09:24 Freq: Status: Active Protocol: Activity Type Activity Date Activity User E-sign Co-sign Detail Recorded Client Recorded Date Recorded By Document 04/30/23 09:59 AK [id number] 04/30/23 10:00 AK Undo 04/30/23 09:59 AK Adjusting Time [id number] 04/30/23 10:01 AK Document 05/07/23 10:09 AK [id number] 05/07/23 10:10 AK Document 05/14/23 12:06 PL [id number] 05/14/23 12:08 PL Document 05/21/23 10:33 KW [id number] 05/21/23 10:44 KW 05/07/23 05/14/23 05/21/23 10:09 12:06 10:33 Wound Care Center Nurse 3 #1 L medial ankle -Ulcer Cleansing Not Cleansed Rinsed/ Irrigated with Saline -Foul Odor after Cleansing No No -Negative Pressure Wound Therapy N/A -Primary Dressing Covered/Secured with Dry Gauze & Dry Gauze & Dry Gauze & Roll Gauze, Roll Gauze, Roll Gauze, Secured with Secured with Secured with Tape Tape Tape Left -Tubular Bandage Double Layer Single Layer -Size of Tubigrip Used Size D Size D -Size D ($) 2 1 -Other single layer but gave extra Pain Scale: 0-10 Numeric Is Patient Pain Free? Yes Yes Yes WC - Visit Discharge Discharge Condition Stable Stable Ambulatory Status Ambulatory Ambulatory Ambulatory Transportation Private Auto Private Auto Medication Reconcilliation completed & Yes No provided to patient/care provider Clinical Summary of Care Provided Yes No Assessment/Plan Assessment/Plan (1) Non-pressure chronic ulcer of skin of other sites with muscle involvement without evidence of necrosis: CODE(S): L98.495 - Non-pressure chronic ulcer of skin of other sites with muscle involvement without evidence of necrosis (2) Basal cell carcinoma (BCC) of left lower extremity: CODE(S): C44.719 - Basal cell carcinoma of skin of left lower limb, including hip (3) HTN (hypertension): CODE(S): I10 - Essential (primary) hypertension (4) BMI 40.0-44.9, adult: CODE(S): Z68.41 - Body mass index [BMI] 40.0-44.9, adult (5) Non-pressure chronic ulcer of left calf with fat layer exposed: CODE(S): L97.222 - Non-pressure chronic ulcer 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 Lisa Pryor MD. cancerous lesion measured 1.5 cm x 0.8 cm preexcision; post excision final defect size measured 1.8 cm x 1.0 cm.? She continues to follow with dermatology. Ulcerative site underwent debridement as noted in the clinical panel above.? Ulceration measures 0.8 cm x 0.9 cm x 0.1 cm.? No signs of infection.? Healthy bleeding granular tissue noted postdebridement.? EpiFix graft #6 applied to the ulcerative bed today and dressed with Adaptic touch, Steri-Strips and dry sterile dressing.?She is to change the outer dressing as needed.?She was instructed to not get the dressings wet.? Tubigrip stocking applied to lower extremity to aid in edema control.? She was instructed to continue to wear the Tubigrip daily and elevate legs at all times of rest to aid in edema control. Ulceration is noted to have continued improvement in reduction of size versus previous visit. Discussed adequate protein intake to aid in her wound healing.? She may also take Robles supplementation to aid wound healing. Discussed signs and symptoms of infection to observe for.? She was instructed that if she notices any redness about the ulcer site that moves up the leg, or if she has any purulent drainage, or increasing foul odor, or if she experiences fever greater than 101 degree, nausea, vomiting, chills that these are signs of a progressing infection and she needs to report to the ED.? She voices understanding of this today. The following work up and care recommendations were made: Dressing: EpiFix, Adaptic touch, Steri-Strips and dry sterile dressing.? Change outer dressings as needed Wash: Do not get wet Tissue growth optimization: EpiFix Offload: Elevation of lower extremity at all times of rest.? To ensure nothing rubs against the ulcerative site on the inside of the left leg. Vascular: DP and PT pulses palpable.? Adequate capillary fill time.? I do not feel her vascular status is impeding her healing. Edema: Elevation of the lower extremities at all times rest.? Once ulcerative site healed plan for compression stockings to aid in edema control. Infection: No signs of infection. Pain: May take [id number] Tylenol as needed for discomfort. Host factors: Basal cell carcinoma left lower extremity, edema. ? I answered all the patient's questions.? To return to the wound healing center in 1 week or call sooner if the patient has any questions or concerns. 05/28/23 1020 <Electronically signed by Lindsey Walsh DPM> Cosigner Signature (if applicable): CC: ~ Signed [facility] Work Phone: 1(577) 912-770506-22-2023 Progress note Author Lindsey Walsh [facility] May 21, 2023 12:31pm Note Date/Time May 21, 2023 9:57 am [facility] [place] [address] Progress Note - Wound Care 05/21/23 0957 MR#: [id number] Acct: [id number] Name: VICKIE GONZALEZ Rep #:[id number] 07 : 1955 67 From: Lindsey sykes DPM PCP: Dr. Nicol Ibanez MD Status:REG RCR Location: History of Present Illness Date of Service: 05/21/23 Chief Complaint: Left medial lower extremity ulceration History of Wound: Patient is a 67-year-old female with past medical history of basal cell carcinoma excised 02/04/2023 of the medial malleolus of the left lower extremity, HTN, obesity, knee replacement, and aortic valve insufficiency with murmur, SOB on exertion, and s/p double vessel coronary artery bypass. She states that she was sent by her primary care Dr. Bhavik Barker for evaluation of anodular and infiltrative basal cell carcinoma in which she saw Dr. Lisa Pryor MD and underwent Mohs excision of the cancer site. Preoperative size of the lesion was noted to be 1.5 cm x 0.8 cm at the left distal pretibial region with final excised the defect size of 1.8 cm x 1.0 cm. She underwent local wound care in office however distance became a factor and she would like to continue to follow-up locally at the wound care center at [facility]. She states following a few days after the procedure she was on the treadmill and did have some swelling of the lower extremity site to which she feels may have worsened the wound. States she will continue to follow with dermatology for continued monitoring/follow-up. She currently denies any N/V/F/chills. Denies further complaints. Subjective Subjective This is a 67-year-old female who presents to the wound care center today for follow-up of left medial ankle ulceration s/p Mohs excision of basal cell carcinoma.? She had been changing outer dressings as needed and has left the graft in place.? She states she believes there is continued improvement. Denies any constitutional symptoms today.? Denies further complaints today. Objective Data Objective Data Vital Signs: Vital Signs Temp Pulse Resp BP O2 Del Method 96.6 F L 69 18 179/69 H Room Air 05/14/23 09:34 05/07/23 09:26 05/14/23 09:34 05/07/23 09:26 05/14/23 09:34 Oxygen Delivery Method Room Air Weight: 102.058 kg Body Mass Index (BMI) 36.3 Physical Exam Const alert, oriented x3 and no apparent distress General Appearance: cooperative HEENT normocephalic Eyes General Eye: normal appearance of both eyes Neck General: normal visual inspection Lymph Lymphatic: no lymphadenopathy noted and no lymphedema noted Resp normal respiratory effort Cardio regular rate and regular rhythm Extremity normal capillary refill, no joint enlargement, no calf tenderness and no pedal edema Extremity Narrative: DP and PT pulses are palpable bilateral.? Capillary fill time adequate to the digits bilaterally.? She is noted to have a vascular malformation with reddish purplish discoloration to the anterior left lower extremity extending proximallyto the thigh and up to the hip. Musculoskeletal: Muscle strength 5 of 5 age-appropriate.? Does have second digithammertoe deformity bilateral, this is flexible.? Decreased range of motion of the first MTPJ without pain or crepitus bilateral and ankle joint with the knee in extension without pain and crepitus noted bilaterally. Skin no rashes or lesions noted, skin turgor normal and no jaundice Wound Narrative: Ulceration to the anterior aspect of the medial malleolus of the left lower extremity s/p Mohs excision of nodular infiltrative basal cell carcinoma.? Ulcerative site demonstrates mixed fibrogranular tissue with well-defined borders and atrophic wound margin.? No purulent drainage, no malodor, no erythema, no visible abscess formation, no palpable fluctuance/bogginess, no lymphangitis. Neuro moves all extremities Debridement Note Debridement Note Wound debrided: Left lower extremity Laterality: Left Wound Grade/Stage: Moyer stage I Type of Debridement: Excisional debridement Anesthesia Used: 5% Lidocaine Gel Depth: Down to and including healthy tissue and in the subcutaneous layer Percentage of wound debrided: 100 Instrument Used: 5mm curette Tissue Removed: Fibrous, devitalized subcutaneous, biofilm, slough Severity: Fat Layer Exposed Amount of bleeding with debridement: Mild Bleeding Controlled with: Compression and gauze Patient tolerated procedure: Patient tolerated procedure well Post-Debridement Measurements and Additional Note: Post-Debridement Measurements/Treatment SAKSHI - Nurse 1 - General Ulcer Assessment Start: 04/30/23 09:24 Freq: Status: Active Protocol: AUDELIAEXT Activity Type Activity Date Activity User E-sign Co-sign Detail Recorded Client Recorded Date Recorded By Document 04/30/23 09:24 JANIE [id number] 04/30/23 09:40 JANIE Document 05/07/23 09:26 AK [id number] 05/07/23 09:28 AK Document 05/14/23 09:34 KW [id number] 05/14/23 09:46 KW 04/30/23 05/07/23 05/14/23 09:24 09:26 09:34 - Today's Visit Information Type of service Follow-up Visit Follow-up Visit Follow-up Visit (Physician/LAND ACQUISITION MANAGER (Physician/LAND ACQUISITION MANAGER (Physician/LAND ACQUISITION MANAGER ) ) ) Arrival Mode Ambulatory Ambulatory Ambulatory Patient Identification Verified (Name & Yes Yes Yes ) Patient Requires Transmission-Based No No No Precautions Safety Precautions NA Height and Weight Body Mass Index (BMI) 36.3 36.3 36.3 BMI Classification Obese Obese Obese Vital Signs Temperature (97.8 F-99.1 F) 96.8 F L 96.7 F L 96.6 F L Temperature Source Temporal Temporal Temporal Pulse Rate (60-100) 75 69 Pulse Location Monitor Monitor Monitor Respiratory Rate (12-18) 18 18 Respiratory rate source Observation Oxygen Delivery Method Room Air Blood Pressure (90/60-120/80) 193/89 H 179/69 H Blood Pressure Mean (mm Hg) 123 105 Source Monitor Monitor Monitor Position Semi-Fowlers Sitting Blood Pressure Location Left Arm Left Arm History Since Last Visit- (Skip if this is Patient's initial visit) Have you changed medications since your No No No last visit? Any new allergies or adverse reactions No No No Had a fall/change in ADL's that may No No No increase risk of falls Signs or symptoms of abuse and/or No No No neglect since last visit Have you been in the hospital since your No No No last visit? Has dressing in place as prescribed Yes Yes Has compression in place as prescribed Yes Yes Has offloadiing in place as prescribed N/A N/A Experienced any changes in pain level or No No management Left Footwear Regular Shoe Regular Shoe Regular Shoe Right Footwear Regular Shoe Regular Shoe Regular Shoe Pain Scale: 0-10 Numeric Is Patient Pain Free? Yes Yes Yes - Nurse 1 - General Ulcer Measurement Start: 04/30/23 09:24 Freq: Status: Active Protocol: Activity Type Activity Date Activity User E-sign Co-sign Detail Recorded Client Recorded Date Recorded By Document 04/30/23 09:24 JANIE [id number] 04/30/23 09:40 Document 05/07/23 09:26 AK [id number] 05/07/23 09:28 AK Document 05/14/23 09:34 KW [id number] 05/14/23 09:46 KW 04/30/23 05/07/23 05/14/23 09:24 09:26 09:34 Wound Center Nurse 1 #1 L medial ankle -Combined with other wound No No -Current Size (cm) - Length 1.6 1.5 -Current Size (cm) - Width 1.5 1.1 -Current Size (cm) - Depth 0.4 0.3 -Total Square Cm 2.40 1.65 -Photo Taken Yes Yes -Epithelialization Small 1-33% -Tunneling No No -Undermining/Tunneling No No -Circular Undermining No No -Change in Wound Grade/Stage No -Exudate Amt Medium Medium -Exudate Type Serosanguineous Serosanguineous -Wound Margin Flat & Intact Distinct, Distinct, Outline Outline Attached Attached -Granulation Amt Medium (34-66%) Medium (34-66%) -Granulation Quality Red [place] -Slough/Fibrin Yes Yes -Necrosis Amt Small (1-33%) Medium (34-66%) -Necrotic Tissue Type Adherent Slough Adherent Slough -Structure Exposed N/A N/A -Texture (Nighat-wound Skin Appearance) Assessed No Abnormality, Assessed Assessed -Moisture (Nighat-wound Skin Appearance) Assessed,Dry/ No Abnormality, Scaly Assessed -Color (Nighat-wound Skin Appearance) Assessed Assessed, Assessed Hemosiderin Staining -Temperature (Nighat-wound Skin No Abnormality No Abnormality Appearance) (Pt Warm) (Pt Warm) -Tenderness on Palpation (Nighat-wound No No Skin Appearance) -Ulcer Cleansing Wound Cleanser Soap and Water -Foul Odor after Cleansing No No -Anesthetic Used 5% Lidocaine 5% Lidocaine 5% Lidocaine Gel Gel Gel Lower Limb Edema Present Yes No Left Calf (cm) 37.6 37 Left Ankle (cm) 21.1 21 WC - Nurse 2 - General Ulcer CM Notes Start: 04/30/23 09:24 Freq: Status: Active Protocol: Activity Type Activity Date Activity User E-sign Co-sign Detail Recorded Client Recorded Date Recorded By Document 04/30/23 12:15 PL [id number] 04/30/23 12:17 PL Document 05/07/23 12:36 PL [id number] 05/07/23 12:38 PL Document 05/14/23 12:06 PL [id number] 05/14/23 12:08 PL Edit Result 05/14/23 12:06 PL (1) [id number] 05/15/23 12:47 PL (1) #1 L medial ankle - Debridement - Subq, 1st 20sq cm Yes => No - Apply Skin Sub - 1st 25 sq cm - Legs => 1 04/30/23 05/07/23 05/14/23 12:15 12:36 12:06 Wound Center Nurse 2 #1 L medial ankle -Time 10:21 09:26 09:56 -Correct Patient Yes Yes Yes -Correct Side, Site, Position Yes Yes Yes -Correct Procedure Yes Yes Yes -Procedure Performed Yes Yes Yes -Type of Procedure Debridement Debridement Debridement -Clinical Debridement Subcutaneous Subcutaneous Subcutaneous -Tissue Removed Subcutaneous Subcutaneous Subcutaneous -Post Debridement (cm) - Length 1.5 1.4 1.1 -Post Debridement (cm) - Width 1.5 1.3 1.0 -Post Debridement (cm) - Depth 0.9 0.4 0.2 -Total Square (Post) (cm) 2.25 1.82 1.10 -Area of Debridement (cm) - Length 1.5 1.4 1.1 -Area of Debridement (cm) - Width 1.5 1.3 1.0 -Total Square (Area) (cm) 2.25 1.82 1.10 -Tunneling No No No -Undermining/Tunneling No No No -Circular Undermining No No No -Wound/Ulcer Outcome Not Healed Not Healed Not Healed -Ulcer Cleansing Rinsed/ Rinsed/ Rinsed/ Irrigated with Irrigated with Irrigated with Saline Saline Saline -Foul Odor after Cleansing No No No -Bioengineered Tissue Yes Yes Yes -Type of Bioengineered Tissue Epifix 18mm Epifix 18mm Epifix 18mm Disc Disc Disc -Expiration Date 01/29/28 01/29/28 02/29/28 -Product Lot Number [id number] -Percent Used 100 100 100 -Bleeding Controlled with Pressure Pressure Pressure -Treatment Response Procedure Procedure Procedure Tolerated Well Tolerated Well Tolerated Well -Debridement - Subq, 1st 20sq cm No No No -Apply Skin Sub - 1st 25 sq cm - Legs 1 1 1 -Epifix 18mm Disc 3 3 3 Pain Scale: 0-10 Numeric Is Patient Pain Free? Yes Yes Yes - Nurse 3 - General Ulcer D/C NN Start: 04/30/23 09:24 Freq: Status: Active Protocol: Activity Type Activity Date Activity User E-sign Co-sign Detail Recorded Client Recorded Date Recorded By Document 04/30/23 09:59 AK [id number] 04/30/23 10:00 AK Undo 04/30/23 09:59 AK Adjusting Time [id number] 04/30/23 10:01 AK Document 05/07/23 10:09 AK [id number] 05/07/23 10:10 AK Document 05/14/23 12:06 PL [id number] 05/14/23 12:08 PL 05/07/23 05/14/23 10:09 12:06 Wound Care Center Nurse 3 #1 L medial ankle -Ulcer Cleansing Not Cleansed -Foul Odor after Cleansing No -Negative Pressure Wound Therapy N/A -Primary Dressing Covered/Secured with Dry Gauze & Dry Gauze & Roll Gauze, Roll Gauze, Secured with Secured with Tape Tape Left -Tubular Bandage Double Layer -Size of Tubigrip Used Size D -Size D ($) 2 -Other single layer but gave extra Pain Scale: 0-10 Numeric Is Patient Pain Free? 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 involvement without evidence of necrosis: CODE(S): L98.495 - Non-pressure chronic ulcer of skin of other sites with muscle involvement without evidence of necrosis (2) Basal cell carcinoma (BCC) of left lower extremity: CODE(S): C44.719 - Basal cell carcinoma of skin of left lower limb, including hip (3) HTN (hypertension): CODE(S): I10 - Essential (primary) hypertension (4) BMI 40.0-44.9, adult: CODE(S): Z68.41 - Body mass index [BMI] 40.0-44.9, adult (5) Non-pressure chronic ulcer of left calf with fat layer exposed: CODE(S): L97.222 - Non-pressure chronic ulcer 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 Lisa Pryor MD. cancerous lesion measured 1.5 cm x 0.8 cm preexcision; post excision final defect size measured 1.8 cm x 1.0 cm.? She continues to follow with dermatology. Ulcerative site underwent debridement as noted in the clinical panel above.? Ulceration measures 0.9 cm x 1.0 cm x 0.1 cm.? No signs of infection.? Healthy bleeding granular tissue noted postdebridement.? EpiFix graft #5 applied to the ulcerative bed today and dressed with Adaptic touch, Steri-Strips and dry sterile dressing.? She is to change the outer dressing as needed.? She was instructed to not get the dressings wet.? Tubigrip stocking applied to lower extremity to aid in edema control.? She was instructed to continue to wear the Tubigrip daily and elevate legs at all times of rest to aid in edema control. Ulceration is noted to have continued improvement in reduction of size versus previous visit. Discussed adequate protein intake to aid in her wound healing.? She may also take Robles supplementation to aid wound healing. Discussed signs and symptoms of infection to observe for.? She was instructed that if she notices any redness about the ulcer site that moves up the leg, or if she has any purulent drainage, or increasing foul odor, or if she experiences fever greater than 101 degree, nausea, vomiting, chills that these are signs of a progressing infection and she needs to report to the ED.? She voices understanding of this today. The following work up and care recommendations were made: Dressing: EpiFix, Adaptic touch, Steri-Strips and dry sterile dressing.? Change outer dressings as needed Wash: Do not get wet Tissue growth optimization: EpiFix Offload: Elevation of lower extremity at all times of rest.? To ensure nothing rubs against the ulcerative site on the inside of the left leg. Vascular: DP and PT pulses palpable.? Adequate capillary fill time.? I do not feel her vascular status is impeding her healing. Edema: Elevation of the lower extremities at all times rest.? Once ulcerative site healed plan for compression stockings to aid in edema control. Infection: No signs of infection. Pain: May take [id number] Tylenol as needed for discomfort. Host factors: Basal cell carcinoma left lower extremity, edema. ? I answered all the patient's questions.? To return to the wound healing center in 1 week or call sooner if the patient has any questions or concerns. 05/21/23 1231 <Electronically signed by Lindsey Walsh DPM> Cosigner Signature (if applicable): CC: ~ Signed [facility] Work Phone: [phone] Progress note Author Lindsey Walsh [facility] May 14, 2023 10:27am Note Date/Time May 14, 2023 9:43 am [facility] [address] [place] [address] Progress Note - Wound Care 05/14/23 0942 MR#: [id number] Acct: [id number] Name: VICKIE GONZALEZ Rep #:[id number] 07 : 1955 67 From: Lindsey sykes DPM PCP: Dr. Nicol Ibanez MD [facility] Location: History of Present Illness Date of Service: 05/14/23 Chief Complaint: Left medial lower extremity ulceration History of Wound: Patient is a 67-year-old female with past medical history of basal cell carcinoma excised 02/04/2023 of the medial malleolus of the left lower extremity, HTN, obesity, knee replacement, and aortic valve insufficiency with murmur, SOB on exertion, and s/p double vessel coronary artery bypass. She states that she was sent by her primary care Dr. Bhavik Barker for evaluation of anodular and infiltrative basal cell carcinoma in which she saw Dr. Lisa Pryor MD and underwent Mohs excision of the cancer site. Preoperative size of the lesion was noted to be 1.5 cm x 0.8 cm at the left distal pretibial region with final excised the defect size of 1.8 cm x 1.0 cm. She underwent local wound care in office however distance became a factor and she would like to continue to follow-up locally at the wound care center at [facility]. She states following a few days after the procedure she was on the treadmill and did have some swelling of the lower extremity site to which she feels may have worsened the wound. States she will continue to follow with dermatology for continued monitoring/follow-up. She currently denies any N/V/F/chills. Denies further complaints. Subjective Subjective This is a 67-year-old female who presents to the wound care center today for follow-up of left medial ankle ulceration s/p Mohs excision of basal cell carcinoma.? She had been changing outer dressings as needed and has left the graft in place.? She states she believes it is continuing to improve. Denies anyconstitutional symptoms today.? Denies further complaints today. Objective Data Objective Data Vital Signs: Vital Signs Temp Pulse Resp BP 96.7 F L 69 18 179/69 H 05/07/23 09:26 05/07/23 09:26 04/30/23 09:24 05/07/23 09:26 Weight: 102.058 kg Body Mass Index (BMI) 36.3 Physical Exam Const alert, oriented x3 and no apparent distress General Appearance: cooperative HEENT normocephalic Eyes General Eye: normal appearance of both eyes Neck General: normal visual inspection Lymph Lymphatic: no lymphadenopathy noted and no lymphedema noted Resp normal respiratory effort Cardio regular rate and regular rhythm Extremity normal capillary refill, no joint enlargement, no calf tenderness and no pedal edema Extremity Narrative: DP and PT pulses are palpable bilateral.? Capillary fill time adequate to the digits bilaterally.? She is noted to have a vascular malformation with reddish purplish discoloration to the anterior left lower extremity extending proximallyto the thigh and up to the hip. Musculoskeletal: Muscle strength 5 of 5 age-appropriate.? Does have second digithammertoe deformity bilateral, this is flexible.? Decreased range of motion of the first MTPJ without pain or crepitus bilateral and ankle joint with the knee in extension without pain and crepitus noted bilaterally. Skin no rashes or lesions noted, skin turgor normal and no jaundice Wound Narrative: Ulceration to the anterior aspect of the medial malleolus of the left lower extremity s/p Mohs excision of nodular infiltrative basal cell carcinoma.? Ulcerative site demonstrates mixed fibrogranular tissue with well-defined borders and atrophic wound margin.? No purulent drainage, no malodor, no erythema, no visible abscess formation, no palpable fluctuance/bogginess, no lymphangitis. Neuro moves all extremities Debridement Note Debridement Note Wound debrided: Left lower extremity Laterality: Left Wound Grade/Stage: Moyer stage I Type of Debridement: Selective debridement Anesthesia Used: 5% Lidocaine Gel Depth: Down to and including healthy tissue and in the subcutaneous layer Percentage of wound debrided: 100 Instrument Used: 5mm curette Tissue Removed: Fibrous, devitalized subcutaneous, biofilm, slough Severity: Fat Layer Exposed Amount of bleeding with debridement: Mild Bleeding Controlled with: Compression and gauze Patient tolerated procedure: Patient tolerated procedure well Post-Debridement Measurements and Additional Note: Post-Debridement Measurements/Treatment - Nurse 1 - General Ulcer Assessment Start: 04/30/23 09:24 Freq: Status: Active Protocol: ELLEN Activity Type Activity Date Activity User E-sign Co-sign Detail Recorded Client Recorded Date Recorded By Document 04/30/23 09:24 [id number] 04/30/23 09:40 Document 05/07/23 09:26 DONNIE [id number] 05/07/23 09:28 AK 04/30/23 05/07/23 09:24 09:26 - Today's Visit Information Type of service Follow-up Visit Follow-up Visit (Physician/LAND ACQUISITION MANAGER (Physician/LAND ACQUISITION MANAGER ) ) Arrival Mode Ambulatory Ambulatory Patient Identification Verified (Name & Yes Yes ) Patient Requires Transmission-Based No No Precautions Height and Weight Body Mass Index (BMI) 36.3 36.3 BMI Classification Obese Obese Vital Signs Temperature (97.8 F-99.1 F) 96.8 F L 96.7 F L Temperature Source Temporal Temporal Pulse Rate (60-100) 75 69 Pulse Location Monitor Monitor Respiratory Rate (12-18) 18 Blood Pressure (90/60-120/80) 193/89 H 179/69 H Blood Pressure Mean (mm Hg) 123 105 Source Monitor Monitor Position Semi-Fowlers Blood Pressure Location Left Arm History Since Last Visit- (Skip if this is Patient's initial visit) Have you changed medications since your No No last visit? Any new allergies or adverse reactions No No Had a fall/change in ADL's that may No No increase risk of falls Signs or symptoms of abuse and/or No No neglect since last visit Have you been in the hospital since your No No last visit? Has dressing in place as prescribed Yes Yes Has compression in place as prescribed Yes Yes Has offloadiing in place as prescribed N/A N/A Experienced any changes in pain level or No No management Left Footwear Regular Shoe Regular Shoe Right Footwear Regular Shoe Regular Shoe Pain Scale: 0-10 Numeric Is Patient Pain Free? Yes Yes WC - Nurse 1 - General Ulcer Measurement Start: 04/30/23 09:24 Freq: Status: Active Protocol: Activity Type Activity Date Activity User E-sign Co-sign Detail Recorded Client Recorded Date Recorded By Document 04/30/23 09:24 [id number] 04/30/23 09:40 Document 05/07/23 09:26 AK [id number] 05/07/23 09:28 AK 04/30/23 05/07/23 09:24 09:26 Wound Center Nurse 1 #1 L medial ankle -Combined with other wound No No -Current Size (cm) - Length 1.6 1.5 -Current Size (cm) - Width 1.5 1.1 -Current Size (cm) - Depth 0.4 0.3 -Total Square Cm 2.40 1.65 -Photo Taken Yes Yes -Epithelialization Small 1-33% -Tunneling No No -Undermining/Tunneling No No -Circular Undermining No No -Change in Wound Grade/Stage No -Exudate Amt Medium Medium -Exudate Type Serosanguineous Serosanguineous -Wound Margin Flat & Intact Distinct, Outline Attached -Granulation Amt Medium (34-66%) Medium (34-66%) -Granulation Quality Red [place] -Slough/Fibrin Yes Yes -Necrosis Amt Small (1-33%) Medium (34-66%) -Necrotic Tissue Type Adherent Slough Adherent Slough -Structure Exposed N/A N/A -Texture (Nighat-wound Skin Appearance) Assessed No Abnormality, Assessed -Moisture (Nighat-wound Skin Appearance) Assessed,Dry/ No Abnormality, Scaly Assessed -Color (Nighat-wound Skin Appearance) Assessed Assessed, Hemosiderin Staining -Temperature (Nighat-wound Skin No Abnormality No Abnormality Appearance) (Pt Warm) (Pt Warm) -Tenderness on Palpation (Nighat-wound No No Skin Appearance) -Ulcer Cleansing Wound Cleanser Soap and Water -Foul Odor after Cleansing No No -Anesthetic Used 5% Lidocaine 5% Lidocaine Gel Gel Lower Limb Edema Present Yes No Left Calf (cm) 37.6 37 Left Ankle (cm) 21.1 21 WC - Nurse 2 - General Ulcer CM Notes Start: 04/30/23 09:24 Freq: Status: Active Protocol: Activity Type Activity Date Activity User E-sign Co-sign Detail Recorded Client Recorded Date Recorded By Document 04/30/23 12:15 PL [id number] 04/30/23 12:17 PL Document 05/07/23 12:36 PL [id number] 05/07/23 12:38 PL 04/30/23 05/07/23 12:15 12:36 Wound Center Nurse 2 #1 L medial ankle -Time 10:21 09:26 -Correct Patient Yes Yes -Correct Side, Site, Position Yes Yes -Correct Procedure Yes Yes -Procedure Performed Yes Yes -Type of Procedure Debridement Debridement -Clinical Debridement Subcutaneous Subcutaneous -Tissue Removed Subcutaneous Subcutaneous -Post Debridement (cm) - Length 1.5 1.4 -Post Debridement (cm) - Width 1.5 1.3 -Post Debridement (cm) - Depth 0.9 0.4 -Total Square (Post) (cm) 2.25 1.82 -Area of Debridement (cm) - Length 1.5 1.4 -Area of Debridement (cm) - Width 1.5 1.3 -Total Square (Area) (cm) 2.25 1.82 -Tunneling No No -Undermining/Tunneling No No -Circular Undermining No No -Wound/Ulcer Outcome Not Healed Not Healed -Ulcer Cleansing Rinsed/ Rinsed/ Irrigated with Irrigated with Saline Saline -Foul Odor after Cleansing No No -Bioengineered Tissue Yes Yes -Type of Bioengineered Tissue Epifix 18mm Epifix 18mm Disc Disc -Expiration Date 01/29/28 01/29/28 -Product Lot Number [id number] -Percent Used 100 100 -Bleeding Controlled with Pressure Pressure -Treatment Response Procedure Procedure Tolerated Well Tolerated Well -Debridement - Subq, 1st 20sq cm No No -Apply Skin Sub - 1st 25 sq cm - Legs 1 1 -Epifix 18mm Disc 3 3 Pain Scale: 0-10 Numeric Is Patient Pain Free? Yes Yes - Nurse 3 - General Ulcer D/C NN Start: 04/30/23 09:24 Freq: Status: Active Protocol: Activity Type Activity Date Activity User E-sign Co-sign Detail Recorded Client Recorded Date Recorded By Document 04/30/23 09:59 AK [id number] 04/30/23 10:00 AK Undo 04/30/23 09:59 AK Adjusting Time [id number] 04/30/23 10:01 AK Document 05/07/23 10:09 AK [id number] 05/07/23 10:10 AK 05/07/23 10:09 Wound Care Center Nurse 3 #1 L medial ankle -Foul Odor after Cleansing No -Negative Pressure Wound Therapy N/A -Primary Dressing Covered/Secured with Dry Gauze & Roll Gauze, Secured with Tape Left -Tubular Bandage Double Layer -Size of Tubigrip Used Size D -Size D ($) 2 -Other single layer but gave extra Pain Scale: 0-10 Numeric Is Patient Pain Free? Yes - Visit Discharge Discharge Condition Stable Ambulatory Status Ambulatory Transportation Private Auto Medication Reconcilliation completed & Yes provided to patient/care provider Clinical Summary of Care Provided Yes Assessment/Plan Assessment/Plan (1) Non-pressure chronic ulcer of skin of other sites with muscle involvement without evidence of necrosis: CODE(S): L98.495 - Non-pressure chronic ulcer of skin of other sites with muscle involvement without evidence of necrosis (2) Basal cell carcinoma (BCC) of left lower extremity: CODE(S): C44.719 - Basal cell carcinoma of skin of left lower limb, including hip (3) HTN (hypertension): CODE(S): I10 - Essential (primary) hypertension (4) BMI 40.0-44.9, adult: CODE(S): Z68.41 - Body mass index [BMI] 40.0-44.9, adult (5) Non-pressure chronic ulcer of left calf with fat layer exposed: CODE(S): L97.222 - Non-pressure chronic ulcer 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 Lisa Pryor MD. cancerous lesion measured 1.5 cm x 0.8 cm preexcision; post excision final defect size measured 1.8 cm x 1.0 cm.? She continues to follow with dermatology. Ulcerative site underwent debridement as noted in the clinical panel above.? Ulceration measures 1.0 cm x 1.1 cm x 0.2 cm.? No signs of infection.? Healthy bleeding granular tissue noted postdebridement.? EpiFix graft #4 applied to the ulcerative bed today and dressed with Adaptic touch, Steri-Strips and dry sterile dressing.? She is to change the outer dressing as needed.? She was instructed to not get the dressings wet.? Tubigrip stocking applied to lower extremity to aid in edema control.? She was instructed to continue to wear the Tubigrip daily and elevate legs at all times of rest to aid in edema control. Ulceration is noted to have some improvement in reduction of size versus previous visit. Discussed adequate protein intake to aid in her wound healing.? She may also take Robles supplementation to aid wound healing. Discussed signs and symptoms of infection to observe for.? She was instructed that if she notices any redness about the ulcer site that moves up the leg, or if she has any purulent drainage, or increasing foul odor, or if she experiences fever greater than 101 degree, nausea, vomiting, chills that these are signs of a progressing infection and she needs to report to the ED.? She voices understanding of this today. The following work up and care recommendations were made: Dressing: EpiFix, Adaptic touch, Steri-Strips and dry sterile dressing.? Change outer dressings as needed Wash: Do not get wet Tissue growth optimization: EpiFix Offload: Elevation of lower extremity at all times of rest.? To ensure nothing rubs against the ulcerative site on the inside of the left leg. Vascular: DP and PT pulses palpable.? Adequate capillary fill time.? I do not feel her vascular status is impeding her healing. Edema: Elevation of the lower extremities at all times rest.? Once ulcerative site healed plan for compression stockings to aid in edema control. Infection: No signs of infection. Pain: May take [id number] Tylenol as needed for discomfort. Host factors: Basal cell carcinoma left lower extremity, edema. ? I answered all the patient's questions.? To return to the wound healing center in 1 week or call sooner if the patient has any questions or concerns. 05/14/23 1027 <Electronically signed by Lindsey Walsh DPM> Cosigner Signature (if applicable): CC: ~ Signed [facility] Work Phone: 1(950) 818-513006-08-2023 Progress note Author Lindsey Waslh [facility] May 07, 2023 9:42am Note Date/Time May 07, 2023 9:14a m [facility] [address] [place] [address] Progress Note - Wound Care 05/07/23912 MR#: [id number] Acct: [id number] Name: PARAGVICKIE CLEMONS Rep #:[id number] 06 : 1955 67 From: Lindsey sykes DPM PCP: Dr. Nicol Ibanez MD Status:REG RCR Location: History of Present Illness Date of Service: 05/07/23 Chief Complaint: Left medial lower extremity ulceration History of Wound: Patient is a 67-year-old female with past medical history of basal cell carcinoma excised 02/04/2023 of the medial malleolus of the left lower extremity, HTN, obesity, knee replacement, and aortic valve insufficiency with murmur, SOB on exertion, and s/p double vessel coronary artery bypass. She states that she was sent by her primary care Dr. Bhavik Barker for evaluation of anodular and infiltrative basal cell carcinoma in which she saw Dr. Lisa Pryor MD and underwent Mohs excision of the cancer site. Preoperative size of the lesion was noted to be 1.5 cm x 0.8 cm at the left distal pretibial region with final excised the defect size of 1.8 cm x 1.0 cm. She underwent local wound care in office however distance became a factor and she would like to continue to follow-up locally at the wound care center at [facility]. She states following a few days after the procedure she was on the treadmill and did have some swelling of the lower extremity site to which she feels may have worsened the wound. States she will continue to follow with dermatology for continued monitoring/follow-up. She currently denies any N/V/F/chills. Denies further complaints. Subjective Subjective This is a 67-year-old female who presents to the wound care center today for follow-up of left medial ankle ulceration s/p Mohs excision of basal cell carcinoma.? She had been changing outer dressings as needed and has left the graft in place.? States she does believe it is a little smaller. Denies any constitutional symptoms today.? Denies further complaints today. Objective Data Objective Data Vital Signs: Vital Signs Temp Pulse Resp BP 96.8 F L 75 18 193/89 H 04/30/23 09:24 04/30/23 09:24 04/30/23 09:24 04/30/23 09:24 Weight: 102.058 kg Body Mass Index (BMI) 36.3 Physical Exam Const alert, oriented x3 and no apparent distress General Appearance: cooperative HEENT normocephalic Eyes General Eye: normal appearance of both eyes Neck General: normal visual inspection Lymph Lymphatic: no lymphadenopathy noted and no lymphedema noted Resp normal respiratory effort Cardio regular rate and regular rhythm Extremity normal capillary refill, no joint enlargement, no calf tenderness and no pedal edema Extremity Narrative: DP and PT pulses are palpable bilateral.? Capillary fill time adequate to the digits bilaterally.? She is noted to have a vascular malformation with reddish purplish discoloration to the anterior left lower extremity extending proximallyto the thigh and up to the hip. Musculoskeletal: Muscle strength 5 of 5 age-appropriate.? Does have second digithammertoe deformity bilateral, this is flexible.? Decreased range of motion of the first MTPJ without pain or crepitus bilateral and ankle joint with the knee in extension without pain and crepitus noted bilaterally. Skin no rashes or lesions noted, skin turgor normal and no jaundice Wound Narrative: Ulceration to the anterior aspect of the medial malleolus of the left lower extremity s/p Mohs excision of nodular infiltrative basal cell carcinoma.? Ulcerative site demonstrates mixed fibrogranular tissue with well-defined borders and atrophic wound margin.? No purulent drainage, no malodor, no erythema, no visible abscess formation, no palpable fluctuance/bogginess, no lymphangitis. Neuro moves all extremities Debridement Note Debridement Note Wound debrided: Left lower extremity Laterality: Left Wound Grade/Stage: Moyer stage I Type of Debridement: Excisional debridement Anesthesia Used: 5% Lidocaine Gel Depth: Down to and including healthy tissue and in the subcutaneous layer Percentage of wound debrided: 100 Instrument Used: 5mm curette Tissue Removed: Fibrous, devitalized subcutaneous, biofilm, slough Severity: Fat Layer Exposed Amount of bleeding with debridement: Mild Bleeding Controlled with: Compression and gauze Patient tolerated procedure: Patient tolerated procedure well Post-Debridement Measurements and Additional Note: Post-Debridement Measurements/Treatment - Nurse 1 - General Ulcer Assessment Start: 04/30/23 09:24 Freq: Status: Active Protocol: ELLEN Activity Type Activity Date Activity User E-sign Co-sign Detail Recorded Client Recorded Date Recorded By Document 04/30/23 09:24 JANIE [id number] 04/30/23 09:40 JANIE 04/30/23 09:24 WC - Today's Visit Information Type of service Follow-up Visit (Physician/LAND ACQUISITION MANAGER ) Arrival Mode Ambulatory Patient Identification Verified (Name & Yes ) Patient Requires Transmission-Based No Precautions Height and Weight Body Mass Index (BMI) 36.3 BMI Classification Obese Vital Signs Temperature (97.8 F-99.1 F) 96.8 F L Temperature Source Temporal Pulse Rate (60-100) 75 Pulse Location Monitor Respiratory Rate (12-18) 18 Blood Pressure (90/60-120/80) 193/89 H Blood Pressure Mean (mm Hg) 123 Source Monitor Position Semi-Fowlers Blood Pressure Location Left Arm History Since Last Visit- (Skip if this is Patient's initial visit) Have you changed medications since your No last visit? Any new allergies or adverse reactions No Had a fall/change in ADL's that may No increase risk of falls Signs or symptoms of abuse and/or No neglect since last visit Have you been in the hospital since your No last visit? Has dressing in place as prescribed Yes Has compression in place as prescribed Yes Has offloadiing in place as prescribed N/A Experienced any changes in pain level or No management Left Footwear Regular Shoe Right Footwear Regular Shoe Pain Scale: 0-10 Numeric Is Patient Pain Free? Yes - Nurse 1 - General Ulcer Measurement Start: 04/30/23 09:24 Freq: Status: Active Protocol: Activity Type Activity Date Activity User E-sign Co-sign Detail Recorded Client Recorded Date Recorded By Document 04/30/23 09:24 [id number] 04/30/23 09:40 04/30/23 09:24 Wound Center Nurse 1 #1 L medial ankle -Combined with other wound No -Current Size (cm) - Length 1.6 -Current Size (cm) - Width 1.5 -Current Size (cm) - Depth 0.4 -Total Square Cm 2.40 -Photo Taken Yes -Epithelialization Small 1-33% -Tunneling No -Undermining/Tunneling No -Circular Undermining No -Exudate Amt Medium -Exudate Type Serosanguineous -Wound Margin Flat & Intact -Granulation Amt Medium (34-66%) -Granulation Quality Red -Slough/Fibrin Yes -Necrosis Amt Small (1-33%) -Necrotic Tissue Type Adherent Slough -Structure Exposed N/A -Texture (Nighat-wound Skin Appearance) Assessed -Moisture (Nighat-wound Skin Appearance) Assessed,Dry/ Scaly -Color (Nighat-wound Skin Appearance) Assessed -Temperature (Nighat-wound Skin No Abnormality Appearance) (Pt Warm) -Tenderness on Palpation (Nighat-wound No Skin Appearance) -Ulcer Cleansing Wound Cleanser -Foul Odor after Cleansing No -Anesthetic Used 5% Lidocaine Gel Lower Limb Edema Present Yes Left Calf (cm) 37.6 Left Ankle (cm) 21.1 WC - Nurse 2 - General Ulcer CM Notes Start: 04/30/23 09:24 Freq: Status: Active Protocol: Activity Type Activity Date Activity User E-sign Co-sign Detail Recorded Client Recorded Date Recorded By Document 04/30/23 12:15 PL [id number] 04/30/23 12:17 PL 04/30/23 12:15 Wound Center Nurse 2 #1 L medial ankle -Time 10:21 -Correct Patient Yes -Correct Side, Site, Position Yes -Correct Procedure Yes -Procedure Performed Yes -Type of Procedure Debridement -Clinical Debridement Subcutaneous -Tissue Removed Subcutaneous -Post Debridement (cm) - Length 1.5 -Post Debridement (cm) - Width 1.5 -Post Debridement (cm) - Depth 0.9 -Total Square (Post) (cm) 2.25 -Area of Debridement (cm) - Length 1.5 -Area of Debridement (cm) - Width 1.5 -Total Square (Area) (cm) 2.25 -Tunneling No -Undermining/Tunneling No -Circular Undermining No -Wound/Ulcer Outcome Not Healed -Ulcer Cleansing Rinsed/ Irrigated with Saline -Foul Odor after Cleansing No -Bioengineered Tissue Yes -Type of Bioengineered Tissue Epifix 18mm Disc -Expiration Date 01/29/28 -Product Lot Number [id number] -Percent Used 100 -Bleeding Controlled with Pressure -Treatment Response Procedure Tolerated Well -Debridement - Subq, 1st 20sq cm No -Apply Skin Sub - 1st 25 sq cm - Legs 1 -Epifix 18mm Disc 3 Pain Scale: 0-10 Numeric Is Patient Pain Free? 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 involvement without evidence of necrosis: CODE(S): L98.495 - Non-pressure chronic ulcer of skin of other sites with muscle involvement without evidence of necrosis (2) Basal cell carcinoma (BCC) of left lower extremity: CODE(S): C44.719 - Basal cell carcinoma of skin of left lower limb, including hip (3) HTN (hypertension): CODE(S): I10 - Essential (primary) hypertension (4) BMI 40.0-44.9, adult: CODE(S): Z68.41 - Body mass index [BMI] 40.0-44.9, adult (5) Non-pressure chronic ulcer of left calf with fat layer exposed: CODE(S): L97.222 - Non-pressure chronic ulcer 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 Lisa Pryor MD. cancerous lesion measured 1.5 cm x 0.8 cm preexcision; post excision final defect size measured 1.8 cm x 1.0 cm.? She continues to follow with dermatology. Ulcerative site underwent debridement as noted in the clinical panel above.? Ulceration measures 1.4 cm x 1.3 cm x 0.4 cm.? No signs of infection.? Healthy bleeding granular tissue noted postdebridement.? EpiFix graft #3 applied to the ulcerative bed today and dressed with Adaptic touch, Steri-Strips and dry sterile dressing.? She is to change the outer dressing as needed.? She was instructed to not get the dressings wet.? Tubigrip stocking applied to lower extremity to aid in edema control.? She was instructed to continue to wear the Tubigrip daily and elevate legs at all times of rest to aid in edema control. Ulceration is noted to have some improvement in reduction of size versus previous visit. Discussed adequate protein intake to aid in her wound healing.? She may also take Robles supplementation to aid wound healing. Discussed signs and symptoms of infection to observe for.? She was instructed that if she notices any redness about the ulcer site that moves up the leg, or if she has any purulent drainage, or increasing foul odor, or if she experiences fever greater than 101 degree, nausea, vomiting, chills that these are signs of a progressing infection and she needs to report to the ED.? She voices understanding of this today. The following work up and care recommendations were made: Dressing: EpiFix, Adaptic touch, Steri-Strips and dry sterile dressing.? Change outer dressings as needed Wash: Do not get wet Tissue growth optimization: EpiFix Offload: Elevation of lower extremity at all times of rest.? To ensure nothing rubs against the ulcerative site on the inside of the left leg. Vascular: DP and PT pulses palpable.? Adequate capillary fill time.? I do not feel her vascular status is impeding her healing. Edema: Elevation of the lower extremities at all times rest.? Once ulcerative site healed plan for compression stockings to aid in edema control. Infection: No signs of infection. Pain: May take [id number] Tylenol as needed for discomfort. Host factors: Basal cell carcinoma left lower extremity, edema. ? I answered all the patient's questions.? To return to the wound healing center in 1 week or call sooner if the patient has any questions or concerns. 05/07/2342 <Electronically signed by Lindsey Walsh DPM> Cosigner Signature (if applicable): CC: ~ Signed [facility] Work Phone: 1([phone] 138-671706-01-2023 Progress note Author Lindsey Walsh [facility] April 30, 2023 12:52pm Note Date/Time April 30, 2023 9:50a m [facility] [address] [place] [address] Progress Note - Wound Care 04/30/23 0946 MR#: [id number] Acct: [id number] Name: VICKIE GONZALEZ Rep #:[id number] 08 : 1955 67 From: Lindsey sykes DPM PCP: Dr. Nicol Ibanez MD Status:REG RCR Location: History of Present Illness Date of Service: 04/30/23 Chief Complaint: Left medial lower extremity ulceration History of Wound: Patient is a 67-year-old female with past medical history of basal cell carcinoma excised 02/04/2023 of the medial malleolus of the left lower extremity, HTN, obesity, knee replacement, and aortic valve insufficiency with murmur, SOB on exertion, and s/p double vessel coronary artery bypass. She states that she was sent by her primary care Dr. Bhavik Barker for evaluation of anodular and infiltrative basal cell carcinoma in which she saw Dr. Lisa Pryor MD and underwent Mohs excision of the cancer site. Preoperative size of the lesion was noted to be 1.5 cm x 0.8 cm at the left distal pretibial region with final excised the defect size of 1.8 cm x 1.0 cm. She underwent local wound care in office however distance became a factor and she would like to continue to follow-up locally at the wound care center at [facility]. She states following a few days after the procedure she was on the treadmill and did have some swelling of the lower extremity site to which she feels may have worsened the wound. States she will continue to follow with dermatology for continued monitoring/follow-up. She currently denies any N/V/F/chills. Denies further complaints. Subjective Subjective This is a 67-year-old female who presents to the wound care center today for follow-up of left medial ankle ulceration s/p Mohs excision of basal cell carcinoma.? She had been changing outer dressings as needed and has left the graft in place.? Denies any constitutional symptoms today.? Denies further complaints today. Objective Data Objective Data Vital Signs: Vital Signs Temp Pulse Resp BP 96.8 F L 75 18 193/89 H 04/30/23 09:24 04/30/23 09:24 04/30/23 09:24 04/30/23 09:24 Weight: 102.058 kg Body Mass Index (BMI) 36.3 Physical Exam Const alert, oriented x3 and no apparent distress General Appearance: cooperative HEENT normocephalic Eyes General Eye: normal appearance of both eyes Neck General: normal visual inspection Lymph Lymphatic: no lymphadenopathy noted and no lymphedema noted Resp normal respiratory effort Cardio regular rate and regular rhythm Extremity normal capillary refill, no joint enlargement, no calf tenderness and no pedal edema Extremity Narrative: DP and PT pulses are palpable bilateral.? Capillary fill time adequate to the digits bilaterally.? She is noted to have a vascular malformation with reddish purplish discoloration to the anterior left lower extremity extending proximallyto the thigh and up to the hip. Musculoskeletal: Muscle strength 5 of 5 age-appropriate.? Does have second digithammertoe deformity bilateral, this is flexible.? Decreased range of motion of the first MTPJ without pain or crepitus bilateral and ankle joint with the knee in extension without pain and crepitus noted bilaterally. Skin no rashes or lesions noted, skin turgor normal and no jaundice Wound Narrative: Ulceration to the anterior aspect of the medial malleolus of the left lower extremity s/p Mohs excision of nodular infiltrative basal cell carcinoma.? Ulcerative site demonstrates mixed fibrogranular tissue with well-defined borders and atrophic wound margin.? No purulent drainage, no malodor, no erythema, no visible abscess formation, no palpable fluctuance/bogginess, no lymphangitis. Neuro moves all extremities Debridement Note Debridement Note Wound debrided: Left medial leg Laterality: Left Wound Grade/Stage: Moyer stage I Type of Debridement: Excisional debridement Anesthesia Used: 5% Lidocaine Gel Depth: Down to and including healthy tissue and in the subcutaneous layer Percentage of wound debrided: 100 Instrument Used: 5mm curette Tissue Removed: Fibrous, devitalized subcutaneous, biofilm, slough Severity: Fat Layer Exposed Amount of bleeding with debridement: Mild Bleeding Controlled with: Compression and gauze Patient tolerated procedure: Patient tolerated procedure well Post-Debridement Measurements and Additional Note: Post-Debridement Measurements/Treatment SAKSHI - Nurse 1 - General Ulcer Assessment Start: 04/30/23 09:24 Freq: Status: Active Protocol: ELLEN Activity Type Activity Date Activity User E-sign Co-sign Detail Recorded Client Recorded Date Recorded By Document 04/30/23 09:24 JF [id number] 04/30/23 09:40 JANIE 04/30/23 09:24 WC - Today's Visit Information Type of service Follow-up Visit (Physician/LAND ACQUISITION MANAGER ) Arrival Mode Ambulatory Patient Identification Verified (Name & Yes ) Patient Requires Transmission-Based No Precautions Height and Weight Body Mass Index (BMI) 36.3 BMI Classification Obese Vital Signs Temperature (97.8 F-99.1 F) 96.8 F L Temperature Source Temporal Pulse Rate (60-100) 75 Pulse Location Monitor Respiratory Rate (12-18) 18 Blood Pressure (90/60-120/80) 193/89 H Blood Pressure Mean (mm Hg) 123 Source Monitor Position Semi-Fowlers Blood Pressure Location Left Arm History Since Last Visit- (Skip if this is Patient's initial visit) Have you changed medications since your No last visit? Any new allergies or adverse reactions No Had a fall/change in ADL's that may No increase risk of falls Signs or symptoms of abuse and/or No neglect since last visit Have you been in the hospital since your No last visit? Has dressing in place as prescribed Yes Has compression in place as prescribed Yes Has offloadiing in place as prescribed N/A Experienced any changes in pain level or No management Left Footwear Regular Shoe Right Footwear Regular Shoe Pain Scale: 0-10 Numeric Is Patient Pain Free? Yes SAKSHI Saucedo Nurse 1 - General Ulcer Measurement Start: 04/30/23 09:24 Freq: Status: Active Protocol: Activity Type Activity Date Activity User E-sign Co-sign Detail Recorded Client Recorded Date Recorded By Document 04/30/23 09:24 JANIE [id number] 04/30/23 09:40 JF 04/30/23 09:24 Wound Center Nurse 1 #1 L medial ankle -Combined with other wound No -Current Size (cm) - Length 1.6 -Current Size (cm) - Width 1.5 -Current Size (cm) - Depth 0.4 -Total Square Cm 2.40 -Photo Taken Yes -Epithelialization Small 1-33% -Tunneling No -Undermining/Tunneling No -Circular Undermining No -Exudate Amt Medium -Exudate Type Serosanguineous -Wound Margin Flat & Intact -Granulation Amt Medium (34-66%) -Granulation Quality Red -Slough/Fibrin Yes -Necrosis Amt Small (1-33%) -Necrotic Tissue Type Adherent Slough -Structure Exposed N/A -Texture (Nighat-wound Skin Appearance) Assessed -Moisture (Nighat-wound Skin Appearance) Assessed,Dry/ Scaly -Color (Nighat-wound Skin Appearance) Assessed -Temperature (Nighat-wound Skin No Abnormality Appearance) (Pt Warm) -Tenderness on Palpation (Nighat-wound No Skin Appearance) -Ulcer Cleansing Wound Cleanser -Foul Odor after Cleansing No -Anesthetic Used 5% Lidocaine Gel Lower Limb Edema Present Yes Left Calf (cm) 37.6 Left Ankle (cm) 21.1 Assessment/Plan Assessment/Plan (1) Non-pressure chronic ulcer of skin of other sites with muscle involvement without evidence of necrosis: CODE(S): L98.495 - Non-pressure chronic ulcer of skin of other sites with muscle involvement without evidence of necrosis (2) Basal cell carcinoma (BCC) of left lower extremity: CODE(S): C44.719 - Basal cell carcinoma of skin of left lower limb, including hip (3) HTN (hypertension): CODE(S): I10 - Essential (primary) hypertension (4) BMI 40.0-44.9, adult: CODE(S): Z68.41 - Body mass index [BMI] 40.0-44.9, adult PLAN: Plan Patient seen and evaluated She underwent excision of nodular and infiltrative basal cell carcinoma on 02/04/[address] Lisa Pryor MD. cancerous lesion measured 1.5 cm x 0.8 cm preexcision; post excision final defect size measured 1.8 cm x 1.0 cm.? She continues to follow with dermatology. Ulcerative site underwent debridement as noted in the clinical panel above.? Ulceration measures 1.5 cm x 1.5 cm x 0.8 cm.? No signs of infection.? Healthy bleeding granular tissue noted postdebridement.? EpiFix graft #2 applied to the ulcerative bed today and dressed with Adaptic touch, Steri-Strips and dry sterile dressing.? She is to change the outer dressing as needed.? She was instructed to not get the dressings wet.? Tubigrip stocking applied to lower extremity to aid in edema control.? She was instructed to continue to wear the Tubigrip daily and elevate legs at all times of rest to aid in edema control. Ulceration is noted to have some improvement in reduction of size versus previous visit. Discussed adequate protein intake to aid in her wound healing.? She may also take Robles supplementation to aid wound healing. Discussed signs and symptoms of infection to observe for.? She was instructed that if she notices any redness about the ulcer site that moves up the leg, or if she has any purulent drainage, or increasing foul odor, or if she experiencesfever greater than 101 degree, nausea, vomiting, chills that these are signs of a progressing infection and she needs to report to the ED.? She voices understanding of this today. The following work up and care recommendations were made: Dressing: EpiFix, Adaptic touch, Steri-Strips and dry sterile dressing.? Change outer dressings as needed Wash: Do not get wet Tissue growth optimization: EpiFix Offload: Elevation of lower extremity at all times of rest.? To ensure nothing rubs against the ulcerative site on the inside of the left leg. Vascular: DP and PT pulses palpable.? Adequate capillary fill time.? I do not feel her vascular status is impeding her healing. Edema: Elevation of the lower extremities at all times rest.? Once ulcerative site healed plan for compression stockings to aid in edema control. Infection: No signs of infection. Pain: May take [id number] Tylenol as needed for discomfort. Host factors: Basal cell carcinoma left lower extremity, edema. ? I answered all the patient's questions.? To return to the wound healing center in 1 week or call sooner if the patient has any questions or concerns. 04/30/23 1252 <Electronically signed by Lindsey Walsh DPM> Cosigner Signature (if applicable): CC: ~ Signed [facility] Work Phone: 1(879) 797-375605-25-2023 Progress note Author Lindsey Walsh [facility] April 23, 2023 10:15am Note Date/Time April 23, 2023 9:34a m [facility] [address] [place] [address] Progress Note - Wound Care 04/23/23 0933 MR#: [id number] Acct: [id number] Name: VICKIE GONZALEZ Rep #:[id number] 05 : 1955 67 From: Lindsey sykes DPM PCP: Dr. Nicol Ibanez MD Status:REG RCR Location: History of Present Illness Date of Service: 04/23/23 Chief Complaint: Left medial lower extremity ulceration History of Wound: Patient is a 67-year-old female with past medical history of basal cell carcinoma excised 02/04/2023 of the medial malleolus of the left lower extremity, HTN, obesity, knee replacement, and aortic valve insufficiency with murmur, SOB on exertion, and s/p double vessel coronary artery bypass. She states that she was sent by her primary care Dr. Bhavik Barker for evaluation of anodular and infiltrative basal cell carcinoma in which she saw Dr. Lisa Pryor MD and underwent Mohs excision of the cancer site. Preoperative size of the lesion was noted to be 1.5 cm x 0.8 cm at the left distal pretibial region with final excised the defect size of 1.8 cm x 1.0 cm. She underwent local wound care in office however distance became a factor and she would like to continue to follow-up locally at the wound care center at [facility]. She states following a few days after the procedure she was on the treadmill and did have some swelling of the lower extremity site to which she feels may have worsened the wound. States she will continue to follow with dermatology for continued monitoring/follow-up. She currently denies any N/V/F/chills. Denies further complaints. Subjective Subjective This is a 67-year-old female who presents to the wound care center today for follow-up of left medial ankle ulceration s/p Mohs excision of basal cell carcinoma. She had been changing dressings daily to the site. Denies any constitutional symptoms today. Denies further complaints today. Objective Data Objective Data Vital Signs: Vital Signs Temp Pulse Resp 96.6 F L 77 18 04/23/23 09:23 04/23/23 09:23 04/23/23 09:23 Weight: 102.058 kg Body Mass Index (BMI) 36.3 Physical Exam Const alert, oriented x3 and no apparent distress General Appearance: cooperative HEENT normocephalic Eyes Eyes Narrative: Wears glasses General Eye: normal appearance of both eyes Neck General: normal visual inspection Lymph Lymphatic: no lymphadenopathy noted and no lymphedema noted Resp normal respiratory effort Cardio regular rate and regular rhythm Extremity normal capillary refill, no joint enlargement, no calf tenderness and no pedal edema Extremity Narrative: DP and PT pulses are palpable bilateral. Capillary fill time adequate to the digits bilaterally. She is noted to have a vascular malformation with reddish purplish discoloration to the anterior left lower extremity extending proximallyto the thigh and up to the hip. Musculoskeletal: Muscle strength 5 of 5 age-appropriate. Does have second digithammertoe deformity bilateral, this is flexible. Decreased range of motion of the first MTPJ without pain or crepitus bilateral and ankle joint with the knee in extension without pain and crepitus noted bilaterally. Skin no rashes or lesions noted and skin turgor normal Wound Narrative: Ulceration to the anterior aspect of the medial malleolus of the left lower extremity s/p Mohs excision of nodular infiltrative basal cell carcinoma. Ulcerative site demonstrates mixed fibrogranular tissue with well-defined borders and atrophic wound margin. No purulent drainage, no malodor, no erythema, no visible abscess formation, no palpable fluctuance/bogginess, no lymphangitis. Neuro moves all extremities Debridement Note Debridement Note Wound debrided: Left medial ankle Laterality: Left Wound Grade/Stage: Moyer stage I Type of Debridement: Excisional debridement Depth: Down to and including healthy tissue and in the subcutaneous layer Percentage of wound debrided: 100 Instrument Used: 5mm curette Tissue Removed: Fibrous, devitalized subcutaneous, biofilm, slough Severity: Fat Layer Exposed Amount of bleeding with debridement: Mild Bleeding Controlled with: Compression and gauze Patient tolerated procedure: Patient tolerated procedure well Post-Debridement Measurements and Additional Note: Post-Debridement Measurements/Treatment WC - Nurse 1 - General Ulcer Assessment Start: 04/16/23 08:55 Freq: Status: Active Protocol: ELLEN Activity Type Activity Date Activity User E-sign Co-sign Detail Recorded Client Recorded Date Recorded By Document 04/16/23 08:58 DONNIE [id number] 04/16/23 09:14 FL Document 04/23/23 09:23 JANIE [id number] 04/23/23 09:27 JF 04/16/23 04/23/23 08:58 09:23 - Today's Visit Information Type of service Initial Visit Follow-up Visit (Physician/LAND ACQUISITION MANAGER ) Arrival Mode Ambulatory Ambulatory Patient Identification Verified (Name & Yes ) Patient Requires Transmission-Based No Precautions Height and Weight Height 5 ft 6 in Weight 102.058 kg Weight in Pounds 225.0 lbs Body Mass Index (BMI) 36.3 36.3 BMI Classification Obese Obese BSA - Nahum 2.10 Vital Signs Temperature (97.8 F-99.1 F) 96.7 F L 96.6 F L Temperature Source Temporal Temporal Pulse Rate (60-100) 77 Pulse Location Monitor Respiratory Rate (12-18) 18 Respiratory rate source Observation History Since Last Visit- (Skip if this is Patient's initial visit) Have you changed medications since your No last visit? Any new allergies or adverse reactions No Had a fall/change in ADL's that may No increase risk of falls Have you been in the hospital since your No last visit? Has dressing in place as prescribed Yes Has compression in place as prescribed Yes Has offloadiing in place as prescribed N/A Experienced any changes in pain level or No management Left Footwear Regular Shoe Regular Shoe Right Footwear Regular Shoe Regular Shoe Pain Scale: 0-10 Numeric Is Patient Pain Free? Yes Yes - Nurse 1 - General Ulcer Measurement Start: 04/16/23 08:55 Freq: Status: Active Protocol: Activity Type Activity Date Activity User E-sign Co-sign Detail Recorded Client Recorded Date Recorded By Document 04/16/23 08:58 DONNIE [id number] 04/16/23 09:14 FL Document 04/23/23 09:23 JANIE [id number] 04/23/23 09:27 JANIE 04/16/23 04/23/23 08:58 09:23 Wound Center Nurse 1 #1 L medial ankle -Combined with other wound No -Current Size (cm) - Length 1.5 1.3 -Current Size (cm) - Width 1.5 1.5 -Current Size (cm) - Depth 0.5 0.4 -Total Square Cm 2.25 1.95 -Date of Last Picture (Recall this 04/16/23 field) -Photo Taken Yes Yes -Epithelialization Small 1-33% -Tunneling No No -Undermining/Tunneling No No -Circular Undermining No No -Change in Wound Grade/Stage No -Exudate Amt Large Small -Exudate Type Yellow/Green Serosanguineous -Wound Margin Distinct, Flat & Intact Outline Attached -Granulation Amt Small (1-33%) Small (1-33%) -Granulation Quality [place] Pale -Slough/Fibrin Yes Yes -Necrosis Amt Large (67-100%) Large (67-100%) -Necrotic Tissue Type Adherent Slough Adherent Slough -Structure Exposed N/A N/A -Texture (Nighat-wound Skin Appearance) No Abnormality, Assessed, Assessed Localized Edema -Moisture (Nighat-wound Skin Appearance) No Abnormality, Assessed,Dry/ Assessed Scaly -Color (Nighat-wound Skin Appearance) No Abnormality, Assessed Assessed -Temperature (Nighat-wound Skin No Abnormality No Abnormality Appearance) (Pt Warm) (Pt Warm) -Tenderness on Palpation (Nighat-wound No No Skin Appearance) -Ulcer Cleansing Rinsed/ Rinsed/ Irrigated with Irrigated with Saline Saline -Foul Odor after Cleansing No No -Anesthetic Used 5% Lidocaine 5% Lidocaine Gel Gel Lower Limb Edema Present Yes Right Calf (cm) 42 Right Ankle (cm) 22 Left Calf (cm) 38 37 Left Ankle (cm) 24 22 - Nurse 2 - General Ulcer CM Notes Start: 04/16/23 08:55 Freq: Status: Active Protocol: Activity Type Activity Date Activity User E-sign Co-sign Detail Recorded Client Recorded Date Recorded By Document 04/16/23 10:10 NAYELI [id number] 04/16/23 10:11 PL 04/16/23 10:10 Wound Center Nurse 2 #1 L medial ankle -Time 09:40 -Correct Patient Yes -Correct Side, Site, Position Yes -Correct Procedure Yes -Procedure Performed Yes -Type of Procedure Debridement -Clinical Debridement Subcutaneous -Tissue Removed Subcutaneous -Post Debridement (cm) - Length 1.8 -Post Debridement (cm) - Width 1.6 -Post Debridement (cm) - Depth 0.2 -Total Square (Post) (cm) 2.88 -Area of Debridement (cm) - Length 1.8 -Area of Debridement (cm) - Width 1.6 -Total Square (Area) (cm) 2.88 -Tunneling No -Undermining/Tunneling No -Circular Undermining No -Wound/Ulcer Outcome Not Healed -Ulcer Cleansing Rinsed/ Irrigated with Saline -Foul Odor after Cleansing No -Bioengineered Tissue No -Bleeding Controlled with Pressure -Treatment Response Procedure Tolerated Well -Debridement - Subq, 1st 20sq cm Yes Pain Scale: 0-10 Numeric Is Patient Pain Free? Yes - Nurse 3 - General Ulcer D/C NN Start: 04/16/23 08:55 Freq: Status: Active Protocol: Activity Type Activity Date Activity User E-sign Co-sign Detail Recorded Client Recorded Date Recorded By Document 04/16/23 10:02 DL [id number] 04/16/23 10:04 DL 04/16/23 10:02 Wound Care Center Nurse 3 #1 L medial ankle -Ulcer Cleansing Rinsed/ Irrigated with Saline -Foul Odor after Cleansing No -Primary Dressing Applied Mepilex Border, Promogran Maryanne Matter -Mepilex Border 1 -Promogran Maryanne Matter 1 Treatment Response Procedure Tolerated Well Pain Scale: 0-10 Numeric Is Patient Pain Free? Yes - Visit Discharge Discharge Condition Stable Ambulatory Status Ambulatory Transportation Private Auto Assessment/Plan Assessment/Plan (1) BMI 40.0-44.9, adult: CODE(S): Z68.41 - Body mass index [BMI] 40.0-44.9, adult (2) HTN (hypertension): CODE(S): I10 - Essential (primary) hypertension (3) Basal cell carcinoma (BCC) of left lower extremity: CODE(S): C44.719 - Basal cell carcinoma of skin of left lower limb, including hip (4) Non-pressure chronic ulcer of skin of other sites with muscle involvement without evidence of necrosis: CODE(S): L98.495 - Non-pressure chronic ulcer of skin of other sites with muscle involvement without evidence of necrosis PLAN: Plan Patient seen and evaluated She underwent excision of nodular and infiltrative basal cell carcinoma on 02/04/[address] Lisa Pryor MD. cancerous lesion measured 1.5 cm x 0.8 cm preexcision; post excision final defect size measured 1.8 cm x 1.0 cm. She continues to follow with dermatology. Ulcerative site underwent debridement as noted in the clinical panel above. Ulceration measures 1.5 cm x 1.5 cm x 0.4 cm. No signs of infection. Healthy bleeding granular tissue noted postdebridement. EpiFix graft #1 applied to the ulcerative bed today and dressed with Adaptic touch, Steri-Strips and dry sterile dressing. She is to change the outer dressing as needed. She was instructed to not get the dressings wet. Tubigrip stocking applied to lower extremity to aid in edema control. She was instructed to continue to wear the Tubigrip daily and elevate legs at all times of rest to aid in edema control. Ulceration is noted to have some improvement in reduction of size versus previous visit. Discussed adequate protein intake to aid in her wound healing. She may also take Robles supplementation to aid wound healing. Discussed signs and symptoms of infection to observe for. She was instructed that if she notices any redness about the ulcer site that moves up the leg, or if she has any purulent drainage, or increasing foul odor, or if she experiences fever greater than 101 degree, nausea, vomiting, chills that these are signs of a progressing infection and she needs to report to the ED. She voices understanding of this today. The following work up and care recommendations were made: Dressing: EpiFix, Adaptic touch, Steri-Strips and dry sterile dressing. Change outer dressings as needed Wash: Do not get wet Tissue growth optimization: EpiFix Offload: Elevation of lower extremity at all times of rest. To ensure nothing rubs against the ulcerative site on the inside of the left leg. Vascular: DP and PT pulses palpable. Adequate capillary fill time. I do not feel her vascular status is impeding her healing. Edema: Elevation of the lower extremities at all times rest. Once ulcerative site healed plan for compression stockings to aid in edema control. Infection: No signs of infection. Pain: May take [id number] Tylenol as needed for discomfort. Host factors: Basal cell carcinoma left lower extremity, edema. I answered all the patient's questions. To return to the wound healing center in 1 week or call sooner if the patient has any questions or concerns. 04/23/23 1015 <Electronically signed by iLndsey Walsh DPM> Cosigner Signature (if applicable): CC: ~ Signed [facility] Work Phone: 1([phone] 508-599805-18-2023 History and physical note Author Lindsey Walsh [facility] April 16, 2023 12:36pm Note Date/Time April 16, 2023 9:19a m [facility] [address] [place] [address] H&P Exam - Wound Care 04/16/23 0919 MR#: [id number] Acct: [id number] Name: VICKIE GONZALEZ Rep #:[id number] 07 : 1955 67 From: Lindsey sykes DPM PCP: Dr. Nicol Ibanez MD Status:REG R Location: History of Present Illness Date of Service: 04/16/23 Chief Complaint: Left medial lower extremity ulceration History of Wound: Patient is a 67-year-old female with past medical history of basal cell carcinoma excised 02/04/2023 of the medial malleolus of the left lower extremity, HTN, obesity, knee replacement, and aortic valve insufficiency with murmur, SOB on exertion, and s/p double vessel coronary artery bypass. She states that she was sent by her primary care Dr. Bhavik Barker for evaluation of anodular and infiltrative basal cell carcinoma in which she saw Dr. Lisa Pryor MD and underwent Mohs excision of the cancer site. Preoperative size of the lesion was noted to be 1.5 cm x 0.8 cm at the left distal pretibial region with final excised the defect size of 1.8 cm x 1.0 cm. She underwent local wound care in office however distance became a factor and she would like to continue to follow-up locally at the wound care center at [facility]. She states following a few days after the procedure she was on the treadmill and did have some swelling of the lower extremity site to which she feels may have worsened the wound. States she will continue to follow with dermatology for continued monitoring/follow-up. She currently denies any N/V/F/chills. Denies further complaints. [facility] Medical History (Updated 04/16/23 @ 12:[address] Lindsey Walsh DPM) Allergic rhinitis Aortic valve insufficiency Asthma Chronic cough Heart murmur Hernia HTN (hypertension) Home Medications albuterol sulfate 2.5 mg/3 mL (0.083 %) solution for nebulization 2.5 mg inhalation Q4H PRN 12/22/17 [History Last Taken Unknown] amlodipine 5 mg tablet 5 mg PO QDAY 12/22/17 [History Last Taken Unknown] aspirin 81 mg tablet,delayed release (Adult Aspirin Regimen) 81 mg PO QDAY 12/22/17 [History Last Taken Unknown] cholecalciferol (vitamin D3) 125 mcg (5,000 unit) capsule 5,000 unit PO QDAY 12/22/17 [History Last Taken Unknown] metoprolol tartrate 50 mg tablet 50 mg PO QDAY 12/22/17 [History Last Taken Unknown] omeprazole 20 mg capsule,delayed release 20 mg PO QDAY 12/22/17 [History Last Taken Unknown] pravastatin 40 mg tablet 40 mg PO QHS 12/22/17 [History Last Taken Unknown] valsartan 160 mg tablet 160 mg PO QDAY 12/22/17 [History Last Taken Unknown] diphenhydramine HCl 25 mg capsule (Benadryl) 25 mg PO QHS PRN 09/02/18 [History Last Taken Unknown] albuterol sulfate 90 mcg/actuation breath activated powder inhaler (ProAir RespiClick) 2 inh inhalation Q4H PRN shortness of breath or wheezing #1 ea 12/22/18 [Rx Last Taken Unknown] prednisone 10 mg tablet 10 mg PO QDAY #30 tabs 08/18/19 [Rx Last Taken Unknown] spacer #1 ea 03/06/20 [Rx Last Taken Unknown] fluticasone propionate 220 mcg/actuation HFA aerosol inhaler (Flovent HFA) 2 inhinhalation BID #12 grams 03/08/20 [Rx Last Taken Unknown] Allergy/AdvReac Type Severity Reaction Status Date / Time naproxen [From Naprosyn] Allergy Severe Hives Verified 12/06/19 10:55 Family History Mother Diabetes Father MADDY (obstructive sleep apnea) Surgical History Status post double vessel coronary artery bypass Total knee replacement status Social History second hand exposure: No alcohol intake: current alcohol intake frequency: a few times a month substance use type: former substance user Date of last use: marijuana in college ROS Constitutional Constitutional: Denies anorexia, change in weight, chills or fever(s) Eyes Eyes: Denies blurry vision, change in vision or double vision ENT HEENT: Denies dysphagia, nasal congestion, nasal discharge or sore throat Cardiovascular Cardiovascular: Denies chest pain, claudication or palpitations Respiratory/Chest Respiratory/Chest: Denies cough, shortness of breath at rest or wheezing Gastrointestinal Gastrointestinal: Denies abdominal pain, constipation, diarrhea, nausea or vomiting Genitourinary Genitourinary: Denies dysuria, hematuria, urinary frequency or urinary urgency Musculoskeletal Musculoskeletal: Denies joint pain, joint stiffness or joint swelling Integumentary Integumentary: Denies lesions, pruritus or rash Neurologic Neurologic: Denies dizziness, numbness or seizures Endocrine Endocrinology: Denies cold intolerance or heat intolerance Hematologic/Lymphatic Hematologic/Lymphatic: Denies easy bleeding or easy bruising Vital Signs Vital Signs Vital Signs: 04/16/23 08:58 Temperature 96.7 F L Temperature Source Temporal Weight Weight: 102.058 kg Body Mass Index (BMI) 36.3 Physical Exam Const alert, oriented x3 and no apparent distress General Appearance: cooperative HEENT normocephalic Eyes Eyes Narrative: Wears glasses General Eye: normal appearance of both eyes Neck General: normal visual inspection Lymph Lymphatic: no lymphadenopathy noted and no lymphedema noted Resp normal respiratory effort Cardio regular rate and regular rhythm Extremity normal capillary refill, no joint enlargement, no calf tenderness and no pedal edema Extremity Narrative: DP and PT pulses are palpable bilateral. Capillary fill time adequate to the digits bilaterally. She is noted to have a vascular malformation with reddish purplish discoloration to the anterior left lower extremity extending proximallyto the thigh and up to the hip. Musculoskeletal: Muscle strength 5 of 5 age-appropriate. Does have second digithammertoe deformity bilateral, this is flexible. Decreased range of motion of the first MTPJ without pain or crepitus bilateral and ankle joint with the knee in extension without pain and crepitus noted bilaterally. Skin no rashes or lesions noted and skin turgor normal Wound Narrative: Ulceration to the anterior aspect of the medial malleolus of the left lower extremity s/p Mohs excision of nodular infiltrative basal cell carcinoma. Ulcerative site demonstrates mixed fibrogranular tissue with well-defined borders and atrophic wound margin. No purulent drainage, no malodor, no erythema, no visible abscess formation, no palpable fluctuance/bogginess, no lymphangitis. Neuro moves all extremities Debridement Note Debridement Note Wound debrided: Left lower extremity Laterality: Left Wound Grade/Stage: Moyer stage I Type of Debridement: Excisional debridement Anesthesia Used: 5% Lidocaine Gel Depth: Down to and including healthy tissue and in the subcutaneous layer Percentage of wound debrided: 100 Instrument Used: 5mm curette Tissue Removed: Fibrous, devitalized subcutaneous, biofilm, slough Severity: Fat Layer Exposed Amount of bleeding with debridement: Mild Bleeding Controlled with: Compression and gauze Patient tolerated procedure: Patient tolerated procedure well Post-Debridement Measurements and Additional Note: Post-Debridement Measurements/Treatment WC - Nurse 1 - General Ulcer Assessment Start: 04/16/23 08:55 Freq: Status: Active Protocol: ELLEN Activity Type Activity Date Activity User E-sign Co-sign Detail Recorded Client Recorded Date Recorded By Document 04/16/23 08:58 DONNIE [id number] 04/16/23 09:14 DONNIE 04/16/23 08:58 WC - Today's Visit Information Type of service Initial Visit Arrival Mode Ambulatory Height and Weight Height 5 ft 6 in Weight 102.058 kg Weight in Pounds 225.0 lbs Body Mass Index (BMI) 36.3 BMI Classification Obese BSA - Nahum 2.10 Vital Signs Temperature (97.8 F-99.1 F) 96.7 F L Temperature Source Temporal History Since Last Visit- (Skip if this is Patient's initial visit) Left Footwear Regular Shoe Right Footwear Regular Shoe Pain Scale: 0-10 Numeric Is Patient Pain Free? Yes WC - Nurse 1 - General Ulcer Measurement Start: 04/16/23 08:55 Freq: Status: Active Protocol: Activity Type Activity Date Activity User E-sign Co-sign Detail Recorded Client Recorded Date Recorded By Document 04/16/23 08:58 DONNIE [id number] 04/16/23 09:14 AK 04/16/23 08:58 Wound Center Nurse 1 #1 L medial ankle -Current Size (cm) - Length 1.5 -Current Size (cm) - Width 1.5 -Current Size (cm) - Depth 0.5 -Total Square Cm 2.25 -Date of Last Picture (Recall this 04/16/23 field) -Photo Taken Yes -Tunneling No -Undermining/Tunneling No -Circular Undermining No -Change in Wound Grade/Stage No -Exudate Amt Large -Exudate Type Yellow/Green -Wound Margin Distinct, Outline Attached -Granulation Amt Small (1-33%) -Granulation Quality [place] -Slough/Fibrin Yes -Necrosis Amt Large (67-100%) -Necrotic Tissue Type Adherent Slough -Structure Exposed N/A -Texture (Nighat-wound Skin Appearance) No Abnormality, Assessed -Moisture (Nighat-wound Skin Appearance) No Abnormality, Assessed -Color (Nighat-wound Skin Appearance) No Abnormality, Assessed -Temperature (Nighat-wound Skin No Abnormality Appearance) (Pt Warm) -Tenderness on Palpation (Nighat-wound No Skin Appearance) -Ulcer Cleansing Rinsed/ Irrigated with Saline -Foul Odor after Cleansing No -Anesthetic Used 5% Lidocaine Gel Right Calf (cm) 42 Right Ankle (cm) 22 Left Calf (cm) 38 Left Ankle (cm) 24 Assessment/Plan Assessment/Plan (1) BMI 40.0-44.9, adult: CODE(S): Z68.41 - Body mass index [BMI] 40.0-44.9, adult (2) HTN (hypertension): CODE(S): I10 - Essential (primary) hypertension (3) Basal cell carcinoma (BCC) of left lower extremity: CODE(S): C44.719 - Basal cell carcinoma of skin of left lower limb, including hip (4) Non-pressure chronic ulcer of skin of other sites with muscle involvement without evidence of necrosis: CODE(S): L98.495 - Non-pressure chronic ulcer of skin of other sites with muscle involvement without evidence of necrosis PLAN: Plan Patient seen and evaluated She underwent excision of nodular and infiltrative basal cell carcinoma on 02/04/[address] Lisa Pryor MD. cancerous lesion measured 1.5 cm x 0.8 cm preexcision; post excision final defect size measured 1.8 cm x 1.0 cm. She continues to follow with dermatology. Ulcerative site underwent debridement as noted in the clinical panel above. Ulceration measures 1.8 cm x 1.6 cm x 0.6 cm. No signs of infection. Healthy bleeding granular tissue noted postdebridement. Maryanne applied to the ulcerative bed today with dry sterile dressing. She is to change the dressing daily. Tubigrip stocking applied to lower extremity to aid in edema control. She was instructed to continue to wear the Tubigrip daily and elevate legs at all times of rest to aid in edema control. I believe she will benefit from placement of advanced wound care product, epi fix to aid her healing process. We will apply for EpiFix graft to be placed at next visit. Discussed adequate protein intake to aid in her wound healing. She may also take Robles supplementation to aid wound healing. Discussed signs and symptoms of infection to observe for. She was instructed that if she notices any redness about the ulcer site that moves up the leg, or if she has any purulent drainage, or increasing foul odor, or if she experiences fever greater than 101 degree, nausea, vomiting, chills that these are signs of a progressing infection and she needs to report to the ED. She voices understanding of this today. The following work up and care recommendations were made: Dressing: Maryanne and dry sterile dressing. Change daily Wash: Soap and water Tissue growth optimization: Maryanne Offload: Elevation of lower extremity at all times of rest. To ensure nothing rubs against the ulcerative site on the inside of the left leg. Vascular: DP and PT pulses palpable. Adequate capillary fill time. I do not feel her vascular status is impeding her healing. Edema: Elevation of the lower extremities at all times rest. Once ulcerative site healed plan for compression stockings to aid in edema control. Infection: No signs of infection. Pain: May take [id number] Tylenol as needed for discomfort. Host factors: Basal cell carcinoma left lower extremity, edema. I answered all the patient's questions. To return to the wound healing center in 1 week or call sooner if the patient has any questions or concerns. 04/16/23 [id number] <Electronically signed by Lindsey Walsh DPM> Cosigner Signature (if applicable): CC: ~ Signed [facility] Work Phone: [phone] [phone] History of Present illness Narrative* Angelica Hsieh Tonia, LAND ACQUISITION MANAGER - 01/21/2023 2:30 PM EST [facility] 1 year TAVR follow up Patient Name: Vickie Gonzalez Admit Date: MR #: [id number] : 1955 Physicians: Nicol Ibanez MD (Family) Assessment and Plan:Pleasant 67yo female s/p TAVR with 34mm Evolut Pro Plus via RFA on 01/21/22 who presents for 1 year TAVR follow up. She has done well over the last year with improvement in activity tolerance and quality of life. She is able to do all activities without any limiting symptoms. Sheis euvolemic on exam, NYHA Class I by [...] limiting of caffeine. If labwork without significant abnormaliti es, she will be discharged from the [facility]. She will continue to follow with PCP and primary garland maker. Hypertension, hypertensive today in the office but home readings are significantly lower ranging between 120-140 systolic. Have asked her to track BP three times a week over the next 2 weeks and notify [facility] if systolic greater than 150 consistently. Chief Complaint/Reason for Visit: 1 year TAVR follow up History of Present Illness: Vickie Gonzalez is a 67 y.o. y/o female with a history of atherosclerotic coronary artery disease s/p CABG with DYE to LAD, MISSY [place] RCA [place] [address] 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 Last cardiac catheterization [id number] showed patent DYE and MISSY with 100% [...] to the floor where she continued to makesteady progress. ECG with NSR with 1st degree AVB, no events overnight on telemetry. She was discharged home on POD 1 in stable condition. Over the last year, she has noticed a significant improvement in activity tolerance, quality of life. Cough is only occurring in the morning now. She is walkingregularly. She denies SOB, BERRY, PND, orthopnea, LE edema. She has had no hospital readmissions. Shepresents for 1 year TAVR follow up. History: [...] Valve Replacement; Surgeon: Lindsey Plummer MD; Location: [facility]; Service: Cardiovascular CARDIAC CATHETERIZATION N/A 01/21/2022 Procedure: Angiogram - Aortic Root; Surgeon: Lindsey Plummer MD; Location: [facility]; Service: Cardiovascular CARDIAC CATHETERIZATION N/A 01/21/2022 Procedure: Temporary Pacemaker; Surgeon: Lindsey Plummer MD; Location: [facility]; Service: Cardiovascular CARDIAC CATHETERIZATION N/A 01/21/2022 Procedure: Valvuloplasty - Aortic Valve; Surgeon: Lindsey Plummer MD; Location: [facility]; Service: Cardiovascular HC LEFT HEART CATH N/A 01/15/2022 Procedure: LEFT HEART CATH; Surgeon: Silvio Mckeon MD; Location: [facility]; Service: Cardiovascular TAVR FEMORAL APPROACH N/A 01/21/2022 Procedure: TRANSCATHETER AORTIC VALVE REPLACEMENT FEMORAL APPROACH; Surgeon: Meir Arthur MD; Location: [facility]; Service: Cardiothoracic TOTAL KNEE ARTHROPLASTY [...] by mouth daily . Yes Historical Provider, [id number] ORAL Take 1 tablet by mouth daily [...] total) by mouth daily . 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 Left ventricular [...] and obesity. Patient has prior CABG. Prior Int erventions CABG: Yes Procedure(s): Complete two-dimensional, color flow [...] valve stenosis. There is moderate tricuspid valve regurgitation.There is pulmonary hypertension, estimated right ventricle systolic [...] of 1.7 cm/m2. Left Ventricular Outflow Tract Name Value Normal LVOT 2D LVOT Diameter 2.0cm LVOT Doppler LVOT Peak Velocity 0.8 m/s LVOT Mean Gradient 1 mmHg LVOT VTI 17 cm LVOT VTI/AV VTI Ratio 0.4 LVOT Stroke Vtssot05 ml LVOT Stroke Index 23.93 ml/m2 Pulmonic Valve Name Value Normal PV Regurgitation Doppler VT Peak End Diastolic Velocity 128 cm/s Mitral Valve Name Value Normal MV Doppler MV Peak Velocity 1.27 m/s MV Mean Gradient 3 mmHg MV PHT 58 ms MV Area (PHT) 3.8 cm2 4.0-5.0 MV Area (Cont Eq VTI) 1.9 cm2 MV Diastolic Function MV E Peak Velocity 1.14 m/s MV A Peak Velocity 1.02 m/s MV E/A 1.1 MV Decel Time 201 ms MV Annular TDI MV Septal e' Velocity 3.7 cm/s >=8.0 MV E/e' (Septal) 30.8 <=8.0 MV Lateral e' Velocity 12.3 cm/s >=10.0 MV E/e' (Lateral) 9.3 <=8.0 MV e' Average 8.00 cm/s MV E/e' (Average) 20.0 Tricuspid Valve Name Value Normal TV Regurgitation Doppler TR Peak Velocity 3.35 m/s Estimated PAP/RSVP PA Systolic Pressure 50 mmHg <=36 Aorta Name Value Normal Ascending Aorta Ao Root Diameter (2D) 3.0 cm 2.7-3.3 Ao Root Diam Index (2D) 1.3 cm/m2 1.6-2.0 Prox Asc Ao Diameter 3.9 cm 2.3-3.1 Prox Asc Ao Diameter Index 1.7 cm/m2 1.3-1.9 Aortic Valve ----- Name Value Normal AV 2D/MM AV Cusp Sep (MM) 1.2 cm AV Doppler AV Peak Velocity 1.7 m/s AV Mean Gradient 6 mmHg AV VTI 40 cm AV Area (Cont Eq VTI) 1.4 cm2 AV Area (Cont Eq Alvarez) 1.4 cm2 LVOT Vmax/AV Vmax 0.45 LVOT VTI/AV VTI Ratio 0.4 AV Regurgitation 2D LVOT Area 3.1 cm2 Ventricles Name Value Normal LV Dimensions 2D/MM IVS Diastolic Thickness (2D) 1.2 cm 0.6-0.9 LVID Diastole (2D) 5.0 cm 3.8-5.2 LVIW Diastolic Thickness (2D) 1.0 cm 0.6-0.9 LVID Systole (2D) 3.1 cm 2.2-3.5 LVOT Diameter 2.0 cmLV Mass (2D Cubed) 215.09 g 67.00-162.00 LV Mass Index (2D Cubed) 95 g/m2 43-95 Relative Wall Thickness (2D) 0.40 <=0.42 LV Fractional Shortening/Ejection Fraction 2D/MM LV Fractional Shortening (2D) 39 % 27-45 LV Diastolic Volume (4C MOD) 161 ml LV Diastolic Length (4C) 9.0 cm LV Systolic Length (4C) 7.6 cm LV Stroke Volume (4C MOD) 95 ml RV Dimensions 2D/MM TAPSE 1.0 cm >=1.7 RV Systolic Function RV s' Velocity 0.06 m/s 0.10-0.19 Atria Name Value Normal LA Dimensions ----- LA Dimension (2D) 4.5 cm 2.7-3.8 LA Dimen Index (2D) 2.0 cm/m2 LA Volume (4C A-L) 90 ml LA Volume (BP A-L) 84 ml LA Volume Index (BP A-L) 37 ml/m2 <=34 LA Volume (BP MOD) 78 ml LA Volume Index (BP MOD) 34 ml/m2 16-34 RA Dimensions RA Area (4C) 31.8 cm2 <=18.0 QLAB Name Value Normal Triplane AP2 Triplane -19.0 % AP3 Triplane -16.4 % AP4 Triplane -19.4 % GLS Triplane -18.2 % Report Signatures Finalizedby Cat Carmichael MD on 01/21/2023 10:15 AM documented in this [id number] Note* Addendum Note - Terrie Oh RN - 01/19/2023 6:49 AM ESTAddended by: TERRIE OH on: 01/19/2023 06:49 AM Modules accepted: Orders [id number] Miscellaneous Notes* Addendum Note - Terrie Oh RN - 01/19/2023 6:49 AM ESTAddended by: TERRIE OH on: 01/19/2023 06:49 AM Modules accepted: Orders documented in this [id number] History of Present illness Narrative* Angelica Randall CNP - 02/19/2022 11:24 AM EDT [facility] 30 DAY TAVR FOLLOW UP Patient Name: Vickie Gonzalez Admit Date: MR #: [id number] : 1955 Physicians: Nicol Ibanez MD (Family) Assessment and Plan: Pleasant 66yo female s/p TAVR with 34mm Evolut Pro Plus via RFA on 01/21/22 whopresents for 30 day TAVR follow up. She [...] wrapped completely around the aorta, encompass pulmonary artery,distal RVOT and right atrium, intraoperative biopsy showed fibrosis with inflammation, fibrosing mediastinitis, hyperlipidemia, hiatal hernia, basal cell carcinoma who follows closely with Dr. Silveira for known AI. Over the summer she began experiencing jaw discomfort with chest pain with exertion, relieved with rest. She has limited her activity level since that time. She admits to dyspnea on e xertion, worsening cough, occasional lightheadedness. She denies LE edema, orthopnea, PND, hospitaladmissions for heart failure. She underwent a repeat [...] conference and deemed an appropriate TAVR candidate. Sheunderwent cardiac catheterization prior to TAVR which showed [...] a day. She denies SOB, BERRY, PND, orth opnea, LE edema. She has had no hospital [...] Valve Replacement; Surgeon: Lindsey Plummer MD; Location: [facility]; Service: Cardiovascular CARDIAC CATHETERIZATION N/A 01/21/2022 Procedure: Angiogram - Aortic Root; Surgeon: Lindsey Plummer MD; Location: [facility]; Service: Cardiovascular CARDIAC CATHETERIZATION N/A 01/21/2022 Procedure: Temporary Pacemaker; Surgeon: Lindsey Plummer MD; Location: [facility]; Service: Cardiovascular CARDIAC CATHETERIZATION N/A 01/21/2022 Procedure: Valvuloplasty - Aortic Valve; Surgeon: Lindsey Plummer MD; Location: [facility]; Service: Cardiovascular HC LEFT HEART CATH N/A 01/15/2022 Procedure: LEFT HEART CATH; Surgeon: Silvio Mckeon MD; Location: [facility]; Service: Cardiovascular TAVR FEMORAL APPROACH N/A 01/21/2022 Procedure: TRANSCATHETER AORTIC VALVE REPLACEMENT FEMORAL APPROACH; Surgeon: Meir Arthur MD; Location: [facility]; Service: Cardiothoracic TOTAL KNEE ARTHROPLASTY [...] by mouth daily . Yes Historical Provider, [id number] ORAL Take 1 tablet by mouth daily . Yes Historical Provider, cholecalciferol, vitamin D3, 50 mcg (2,000 unit) cap Take 2,000 Units by mouth daily . Yes Historical Provider, clopidogreL (PLAVIX) 75 mg tablet Take 1 (one) tablet (75 mg total) by mouth daily . 01/22/22 04/22/22 Yes Angelica Randall CNP diphenhydrAMINE (BENADRYL) 25 mg tablet Take 25 [...] denies blood in stool or black tarry stools.denies hematuria Musc: denies joint pain or swelling, [...] Component Value Date HGBA1C 6.1 (H) 01/09/2022 @[id number]@ ECG 12 Lead Result Date: 01/22/2022 Sinus rhythm with 1st degree AV block Otherwise normal ECG Confirmed by SONA SEGURA MD ([id number]) on01/22/2022 9:10:34 AM ECG 12 Lead Result Date: 01/22/2022 Sinus rhythm with 1st degree AV block Nonspecific T wave abnormality Abnormal ECG When compared with ECG of 21-JAN-2022 12:50, (unconfirmed) No significant change was found Confirmed by SONA SEGURA MD ([id number]) on 01/22/2022 9:08:00 AM Cardiac Catheterization Result [...] CHEST 01/21/2022 12:26 pm COMPARISON: 01/09/2022 HISTORY: ORDERINGSYSTEM PROVIDED HISTORY: s/p TAVR; TECHNOLOGIST PROVIDED HISTORY: [...] Date: 01/21/2022 12:12 PM 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 Limited two-dimensional, Doppler interrogation and color flow transthoracic echocardiogram is performed. 2. Focused views were performed in the invasive procedure laboratory to guide placementof transcatheter aortic valve (TAVR). Images were reviewed directly by the performing physicians. Acomplete post TAVR study including full Doppler will [...] no pericardial effusion. Left Ventricular Outflow Tract Name Value Normal LVOT Doppler LVOT PeakVelocity 1.2 m/s LVOT Mean Gradient 3 mmHg LVOT VTI 26 cm LVOT VTI/AV VTI Ratio 0.8 Aortic Valve --- Name Value Normal AV Doppler AV Peak Velocity 1.7 m/s AV Mean Gradient 5 mmHg AV VTI 34 cm LVOT Vmax/AV Vmax 0.71 LVOT VTI/AV VTI Ratio 0.8 Report Signatures Finalized by Nicol Pittman DO on 01/21/2022 04:13 PM Ultrasound lower ext pseudoaneurysm Result Date: 01/22/2022 Patient Info Name: VICKIE GONZALEZ Age: 66 years : 1955 Gender: Female Exam Date: 01/21/2022 1:41 PM Patient Status: Outpatient Automatic Pilot Mechanic:Muriel Medina RVT, RDMS Referring Physician: TONIA Jimenez; Attending Physician: LINDSEY PLUMMER Indications Z98.890 - Other specified postprocedural states - left femoral artery pseudoaneurysm, please perform compression therapy if able Procedure Description 11172 Duplex scan of lower extremity arteries or arterial bypass grafts using B-mode, color and spectral Doppler; unilateral orlimited study. Conclusions * No evidence of pseudoaneurysm or arteriovenous fistula in the left groin. * Normal multiphasic Doppler waveforms of the left distal external iliac, common femoral, proximal profunda femoral and proximal superficial femoral arteries. * Normal phasic and spontaneous Doppler waveforms of the left common femoral, proximal profunda femoral and proximal superficial femoral v eins. . 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 Leftventricular systolic function is normal with an ejection [...] CABG. Prior Interventions CABG: Yes Procedure(s): Complete two- dimensional, color flow and Doppler transthoracic echocardiogram is [...] There is mild tricuspid valve regurgitation. There isborderline pulmonary hypertension, estimated right ventricle systolic pressure is 43 mmHg. Pericardi um/Pleural The pericardium appears normal. There is no pericardial effusion. Left Ventricular Outflow Tract Name Value Normal --- LVOT 2D LVOT Diameter 2.0 cm LVOT Doppler LVOT Peak Velocity 1.1 m/s LVOT Mean Gradient 2mmHg LVOT VTI 21 cm LVOT VTI/AV VTI Ratio 0.7 LVOT Stroke Volume 65 ml LVOT Stroke Index 28.96 ml/m2 Pulmonic Valve Name Value Normal PV Doppler PV Peak Velocity 1.83 m/s Mitral Valve --- Name Value Normal MV Doppler MV Decel Citrus 386 cm/s2 MV PHT 77 ms MV Area (PHT) 2.9 cm2 4.0-5.0 MV Diastolic Function MV E Peak Velocity 1 m/s MV A Peak Velocity 1 m/s MV E/A 1.1 MV Decel Time 264 ms MV Annular TDI --- MV Septal e' Velocity 4.5 cm/s >=8.0 MV E/e' (Septal) 22.9 <=8.0 MV Lateral e' Velocity 12.7 cm/s >=10.0 MV E/e' (Lateral)8.0 <=8.0 MV e' Average 8.58 cm/s MV E/e' (Average) 15.5 Tricuspid Valve Name Value Normal TV Regurgitation Doppler TR Peak Velocity 3.08 m/s Estimated PAP/RSVP PA Systolic Pressure 43 mmHg <=36 Aortic Valve -- Name Value Normal AV Doppler AV Peak Velocity 1.5 m/s AV Mean Gradient 4 mmHg AV VTI 31 cm AV Area (Cont Eq VTI) 2.1 cm2 AV Area (Cont Eq Alvarez) 2.3 cm2 LVOT Vmax/AV Vmax 0.72 LVOT VTI/AV VTI Ratio 0.7 AV Regurgitation 2D LVOT Area 3.1 cm2 Ventricles Name Value Normal LV Dimens ions 2D/MM IVS Diastolic Thickness (2D) 1.3 cm 0.6-0.9 LVID Diastole (2D) 4.3 cm 3.8-5.2 LVIW Diastolic Thickness (2D) 1.2 cm 0.6-0.9 LVID Systole (2D) 3.9 cm 2.2-3.5 LVOT Diameter 2.0 cm LV Mass (2D Cubed) 193.04 g 67.00-162.00LV Mass Index (2D Cubed) 86 g/m2 43-95 Relative Wall Thickness (2D) 0.53 <=0.42 LV Fractional Bailey rtening/Ejection Fraction 2D/MM LV Fractional Shortening (2D) 9 % 27-45 RV Dimensions 2D/MM TAPSE 1.2 cm >=1.7 RV Systolic Function RV s' Velocity 0.1 m/s 0.1-0.2 Atria Name Value Normal LA Dimensions LA Dimension (2D) 2.9 cm 2.7-3.8 LA Dimen Index (2D) 1.3 cm/m2 ReportSignatures Finalized by Cat Carmichael MD on 01/22/2022 05:15 PM documented in this [id number] Note* Addendum Note - Terrie Oh RN - 02/13/2022 7:54 AM EDTAddended by: TERRIE OH on: 02/13/2022 07:54 AM Modules accepted: Orders [id number] Miscellaneous Notes* Addendum Note - Terrie Oh RN - 02/13/2022 7:54 AM EDTAddended by: TERRIE OH on: 02/13/2022 07:54 AM Modules accepted: Orders documented in this [id number] History of Present illness Narrative* Angelica Randall CNP - 02/03/2022 10:00 AM EST Telephone Visit Via Phone Call [facility] [facility] [address] [place] [phone] Telephone Visit [facility] 02/03/2022 Angelica Randall CNP Provider Location: office Patient Location Cloth Measurer: None Patient Location: Patient's Home Patient: Vickie Gonzalez Date of : 1955 (66 y.o. female) PCP: Nicol Ibanez MD I discussed risks, benefits and alternatives of a telephone visit telemedicine consultation with the patient (and any accompanying persons) including the risks that the patient's personal health details and medical records will be discussed over real-time, synchronous, interactive audio technology,the visit will not be recorded without the express consent of both the provider and the patient, and that there are inherent diagnostic limitations compared to [id number]-va-[id number] evaluations. We elected toproceed with the telephone visit telemedicine consultation. ALLISON Gonzalez is a 66 y.o. female patient [...] 4.8m/sec with severe AI, mild MR, mild TRand RVSP 46mmHg. Last cardiac catheterization in 2010 [...] Pro Plus via RFA. She recovered well inPACU and was transferred to the floor where she continued to make steady progress. ECG with NSR with 1st degree AVB, no events overnight on telemetry. She was discharged home on POD 1 in stable condition. Since discharge she has noticed a significant improvement in activity tolerance and dyspnea onexertion. Her chronic cough has subsided by 60-70% by patient's report. She denies chest pain, syncope, near syncope, LE edema, hospital readmissions. She reports well-healing wounds. She presents for 2 week TAVR follow up via telemedicine. The following portions of the patient's history were reviewed and updated as appropriate: allergies, current medications, past family history, past medical history, past social history, past surgicalhistory and problem list. Review of Systems Per HPI Patient's Medications New Prescriptions No medications on file Previous Medications ALBUTEROL 90 MCG/ACTUATION INHALER Inhale 2 puffs every 6 (six) hours as needed for wheezing. ASPIRIN 81 MG EC TABLET Take 81 mg by mouth every other day . B COMPLEX VITAMINS TABLET Take 1 tablet by mouth daily . [id number]-[id number]-TNVP ORAL Take 1 tablet by mouth daily [...] discharge with significant improvement in activity tolerance anddyspnea on exertion. Prior to TAVR she could only ambulate for 3 minutes at a time. She is now walking aerobically for 24 minutes a time and is mostly limited by muscle/joint pain. Encouraged cardiacrehab, which she will enroll in. She reports well-healing wounds. She has no activity restrictions at this time. DAPT for 90 days post TAVR, which she is tolerating well. Life-long aspirin therapy. No medication changes made today. NYHA Class I by symptoms. She will follow up with the [facility] again at4 weeks post TAVR with TTE, labwork and ECG. I have spent 16 minutes with the patient reviewing the HPI and Plan of Care. documented in this [id number] Hospital course Narrative* Angelica Randall CNP - 01/22/2022 10:54 AM EST DISCHARGE SUMMARY Patient: Vickie Gonzalez Date of : 1955 Site: [facility] Family Provider: Nicol Ibanez MD Admit [...] She is oxygenating well on room air andambulating independently in the hallways. Post op TTE results pending at discharge. DAPT for 90 days post TAVR with aspirin indefinitely thereafter. She is being discharged home on POD 1 in stable condition. She will follow up with the DC at 2 weeks and 4 weeks post [...] Take 1 tablet by mouth daily . [id number]-[id number]-IMMT ORAL Take 1 tablet by mouth daily [...] Provider: Nicol Ibanez MD, Address: [address] / [place] [address] Follow Up: Phase 2 Cardiac [facility] Please call ext. [phone] to schedule. Call in 2 week(s) Nicol Ibanez MD [address] [place] [address] Follow up Please call to schedule follow up appt for 8 weeks from discharge Angelica Randall CNP [address] [phone] Follow up Office has scheduled appts at 2 weeks and 4 weeks from discharge Blaine Silveira MD [address] [phone] Follow up Please call to schedule follow up appt with Dr. Silveira Additional Information: Patient instructions, including activity, were given to the patient/family at discharge. Please seethe After Visit Summary in the electronic medical record for details. Time spent on discharge: > 30 minutes Completed by: Angelica Randall CNP on 01/22/22, 10:54 AM documented in this [id number] Consult note* Marsha Torres RN - 01/22/2022 8:58 AM EST AVS reviewed with patient/family. Discussed importance of medications, follow up appointments, and Cardiac Rehab with patient/family.Discussed with patient that their physician has referred him/her to our outpatient Cardiac Rehabilitation program. A Cardiac Rehabilitation nurse will contact patientor patient may call [phone] for additional information. [facility] brochure pro vided to patient/family.The Cardiac Rehabilitation Program will be provided the patient's referral information and pertinent patient details and history. Patient chosen location is . [id number] Consult note* Marsha Torres RN - 01/22/2022 8:58 AM EST AVS reviewed with patient/family. Discussed importance of medications, follow up appointments, and Cardiac Rehab with patient/family.Discussed with patient that their physician has referred him/her to our outpatient Cardiac Rehabilitation program. A Cardiac Rehabilitation nurse will contact patientor patient may call [phone] for additional information. [facility] brochure pro vided to patient/family.The Cardiac Rehabilitation Program will be provided the patient's referral information and pertinent patient details and history. Patient chosen location is . documented in this [id number] Evaluation + Plan note* Assessment & Plan Note - Angelica Randall CNP - 01/22/2022 8:12 AM EST Associated Problem(s): Severe aortic stenosis S/p TAVR with 34mm Evolut Pro Plus via RFA [id number] Miscellaneous Notes* Assessment & Plan Note - Angelica Randall CNP - 01/22/2022 8:12 AM ESTAssociated Problem(s): Severe aortic stenosis S/p TAVR with 34mm Evolut Pro Plus via RFA * Quick Note - Gaby Evans RN - 01/22/2022 4:58 AM EST .. Patient oriented to room and call system: yes Goal and Plan of Care written on whiteboard: yes Dual RN skin assessment completed with: Kaley Barcenas How will patient get home at discharge: Family will take pt home * Brief Op Note - Robert Pugh MD - 01/21/2022 12:24 PM EST Brief Post Operative Note Patient Name: Vickie Gonzalez : 1955 (66 y.o.) Date of Service: 01/21/2022 CSN: [id number] Procedure(s): Transcatheter Aortic Valve Replacement TRANSCATHETER AORTIC VALVE REPLACEMENT FEMORAL APPROACH Pre-Operative Diagnoses: * severe aortic stenosis Post-Operative Diagnoses: * Same as Pre-Op Diagnosis Surgeon(s) and Role: Panel 1: * Lindsey Plummer MD - Primary * Stanley Grant MD Panel 2: * Meir Arthur MD - Primary * Robert Pugh MD Anesthesiologist: Chapito Mohan MD Student Nurse Reconciling Clerk: Deep Sawant Dinkey Engine Operator: Kishna Rascon RN; Alena Barker, TECHNOLOGIST; Gina Ann RN; Judd Hoover RN Electrical Parts Reconditioner: Zulma Bowen Scrub Person: ST Raven; Danette Tyson, TECHNOLOGIST; ST Kera Documenter: GARETH BushOLOGIST Anesthesia Specialist: OTILIA Simmons Operative findings: #34 Medtronic Evolut pro plus TAVR via RCFA approach Intra and immediate post-operative complications: none Type of anesthesia used: Monitor Anesthesia Care Estimated blood loss: less than 50 mL Estimated urine output: Refer to surgical log Specimen(s): * No specimens in log * Implant(s): Implant Name Type Inv. Item Serial No. Pick And Shovel Man Lot No. LRB No. Used Action CLOSURE PERCLOSE PROSTYLE - [id number] Closure Device CLOSURE PERCLOSE PROSTYLE GARAY VAS N/A 2 Implanted VALVE 34MM EVOLUT PRO AORTIC - [id number] Percutaneous Valve VALVE 34MM EVOLUT PRO AORTIC [id number] MEDTRONIC N/A 1 Implanted Drain(s): * No LDAs found * Wound(s): * No LDAs found * Robert Pugh MD 01/21/2022 12:24 PM * Op Note - Robert Pugh MD - 01/21/2022 7:22 AM EST VICKIE GONZALEZ [id number] 1955 DATE 01/21/2022 OPERATIVE REPORT SURGEON ROBERT [...] to the recovery room in satisfactory condition. MD Killian VILLATORO 01/21/2022 12:30 [id number] T 01/21/2022 12:47 WJF/MODL documented in this [id number] History of Present illness Narrative* Angelica Randall CNP - 01/22/2022 8:04 AM EST Patient Name: Vickie Gonzalez MR #: [id number] POD # 1 Subjective: No complaints Objective: [...] discuss with SH team documented in this [id number] Note* Quick Note - Gaby Evans RN - 01/22/2022 4:58 AM EST .. Patient oriented to room and call system: yes Goal and Plan of Care written on whiteboard: yes Dual RN skin assessment completed with: Kaley Barcenas How will patient get home at discharge: Family will take pt home [id number] Note* Brief Op Note - Robert Pugh MD - 01/21/2022 12:24 PM EST Brief Post Operative Note Patient Name: Vickie Gonzalez : 1955 (66 y.o.) Date of Service: 01/21/2022 CSN: [id number] Procedure(s): Transcatheter Aortic Valve Replacement TRANSCATHETER AORTIC VALVE REPLACEMENT FEMORAL APPROACH Pre-Operative Diagnoses: * severe aortic stenosis Post-Operative Diagnoses: * Same as Pre-Op Diagnosis Surgeon(s) and Role: Panel 1: * Lindsey Plummer MD - Primary * Stanley Grant MD Panel 2: * Meir Arthur MD - Primary * Robert Pugh MD Anesthesiologist: Chapito Mohan MD Student Nurse Reconciling Clerk: Deep Sawant Dinkey Engine Operator: Kishan Rascon RN; Alena Barker, TECHNOLOGIST; Gina Ann, JERRY; Judd Hoover RN Electrical Parts Reconditioner: Zulma Bowen Scrub Person: ST Raven; Danette Tyson, TECHNOLOGIST; ST Kera Documenter: Magen Flores, TECHNOLOGIST Anesthesia Specialist: OTILIA Simmons Operative findings: #34 Medtronic Evolut pro plus TAVR via RCFA approach Intra and immediate post-operative complications: none Type of anesthesia used: Monitor Anesthesia Care Estimated blood loss: less than 50 mL Estimated urine output: Refer to surgical log Specimen(s): * No specimens in log * Implant(s): Implant Name Type Inv. Item Serial No. Pick And Shovel Man Lot No. LRB No. Used Action CLOSURE PERCLOSE PROSTYLE - [id number] Closure Device CLOSURE PERCLOSE PROSTYLE GARAY VAS N/A 2 Implanted VALVE 34MM EVOLUT PRO AORTIC - [id number] Percutaneous Valve VALVE 34MM EVOLUT PRO AORTIC [id number] MEDTRONIC N/A 1 Implanted Drain(s): * No LDAs found * Wound(s): * No LDAs found * Robert Pugh MD 01/21/2022 12:24 PM [employer] Work Phone: 1(139) 645-766902-22-2022 Attending History and physical note* Angelica Randall CNP - 01/21/2022 10:05 AM EST INTERVAL HISTORY AND PHYSICAL Patient Name: Vickie Gonzalez Admit Date: 2220101 MR #: [id number] : 1955 The H&P has been reviewed [...] Name: Vickie Gonzalez Admit Date: MR #: [id number] : 1955 Physicians: Nicol Ibanez MD (Family) Assessment and Plan: 66 y with severe symptomatic aortic stenosis with moderate aortic insufficiency with previous CABG.TAVR work-up ongoing. Together, with the patient, the [...] wrapped completely around the aorta, encompass pulmonary artery,distal RVOT and right atrium, intraoperative biopsy showed [...] lightheadedness. She denies LE edema, orthopnea, PND, hospitaladmissions for heart failure. She underwent a repeat TTE which showed an LVEF 55% with severe aortic stenosis with mean aortic gradient 48mmHg, peak aortic velocity 4.8m/sec with severe AI, mild MR, mild TR and RVSP 46mmHg. Last cardiac catheterization in 2010 showed patent DYE and MISSY with 100% o ccluded RCA and LM. She was referred for [...] tablet by mouth daily . Historical Provider, [id number] ORAL Take 1 tablet by mouth daily [...] denies blood in stool or black tarry stools.denies hematuria Musc: denies joint pain or swelling, denies lower extremity edema Neuro: denies TIA, CVA. denies neuropathy, denies carpal tunnel syndrome, denies spinal stenosis Endo: denies polyuria, polydipsia Dental: last dental visit dental clearance obtained Physical Examination: Vital Signs: BP 143/80 Pulse 78 Temp 98 F (36.7 C) Resp 18 Ht 5' 6 Wt 106.3 kg (234 lb 5.6 oz) QiA638% BMI 37.82 kg/m General: Alert, cooperative, no [...] Component Value Date HGBA1C 6.1 (H) 01/09/2022 @HNDVJPO26@ CT TAVR Chest Abdomen Pelvis without hydration Result Date: 01/09/2022 EXAMINATION: CTA OF THE CHEST, ABDOMEN AND PELVIS WITH AND WITHOUT CONTRAST - TAVR PROTOCOL 01/09/2022 8:44 am TECHNIQUE: CTA of the chest, abdomen and pelvis was performed before and after the administration of intravenous contrast. Multiplanar reformatted images are provided for review. MIP imagesare provided for review. Dose modulation, iterative reconstruction, [...] without focal destructive lesion. CTA ABDOMEN: No evidenceof abdominal aortic dissection or aneurysm. No significant [...] abnormality. There is no evidence of bowel obstruction.No evidence of abnormal bowel wall thickening or distention. No evidence of ascites or free air. Noevidence of lymphadenopathy. CTA PELVIS: Aortic bifurcation and [...] dilated ascending thoracic aorta measuring 4.5 cm indiameter. Worsening atherosclerotic calcifications of the aortic root and ascending thoracic aorta.This was present in 2011 but has progressed. The soft tissue thickening of the wall of the ascending aorta may be related to chronic fibrosis. Extensive atherosclerotic calcifications of the aortic valve. No evidence of aortic dissection. Abdominal aorta is unremarkable in appearance. Cardiomegaly with evidence of prior CABG. No acute process in the lungs. No acute process in the abdomen or pelvis. Skaffl/tde Workstation ID: [id number] Carotid Duplex Result Date: 01/09/2022 Patient Info Name: VICKIE GONZALEZ Age: 66 years : 1955 Gender: Female Exam Date: 01/09/2022 11:00 AM Patient Status: Outpatient Automatic Pilot Mechanic: Corina BOWDEN RVT^^^^ Referring Physician: ANGELICA RANDALL ; Attending Physician: ANGELICA RANDALL Indications I35.0 - Aortic valve stenosis, severe Z01.810 - Pre-operative cardiovascular examination R09.89 - Other specified symptoms and signs involving the circulatory and respiratory systems - Preop TAVR Procedure Description 34676 Duplex examination using B-mode, color and spectral Doppler of extracranial arteries; complete bilateral study. NASCET criteria is used when performing imaging correlation with carotid duplex interpretation. Conclusions * Right. * 1-49% stenosis of the proximal right internal carotid artery. * Right vertebral artery is patent with antegrade flow. * No evidence ofstenosis in the right external carotid and subclavian arteries. * Left. * 1-49% stenosis of the prox imal left internal carotid artery. * Left vertebral artery is patent with antegrade flow. * No evidence of stenosis in the left external carotid and subclavian arteries. Measurements Name Value Right PSV Right Prox CCA PSV 85 cm/s Right Mid CCA PSV 81 cm/s Right Distal CCA PSV 70 cm/s R ight Prox ICA PSV 61 cm/s Right Mid ICA PSV 96 cm/s Right Distal ICA PSV 92 cm/s Right ECA PSV 64 cm/s Right Vert PSV 87 cm/s Right Prox SCA PSV 177 cm/s Rt ICA/CCA Ratio 0.9 Measurements Name Value Right EDV Right Prox CCA EDV 10 cm/s Right Mid CCA EDV 18 cm/s Right Distal CCA EDV 21 cm/s Right Prox ICA EDV 21 cm/s Right Mid ICA EDV 19 cm/s Right Distal ICA EDV 23 cm/s Right ECA EDV0 cm/s Right Vert EDV 19 cm/s Measurements Name Value Left PSV Left Prox CCA PSV 78 cm/s Left Mid CCA PSV 78 cm/s Left Distal CCA PSV 77 cm/s Left Prox ICA PSV 69 cm/s Left Mid ICA PSV 110 cm/s Left Distal ICA PSV 89 cm/s Left ECA PSV 53 cm/s Left Vert PSV 41 cm/s Left Prox SCA PSV 153cm/s Lt ICA/CCA Ratio 0.9 Measurements Name Value Left EDV Left Prox CCA EDV 11 cm/s Left [...] Date: 12/30/2021 11:07 AM Patient Status: Outpatient Son ographer: Angelica Lynne, RDCS, RVT Exam Type: ECHOCARDIOGRAM COMPLETE Study Info Indications I35.1 - Nonrheumatic aortic (valve) insufficiency Referring Physician: BLAINE SILVEIRA ; [id number] BMI:36.64 kg/m2 Summary 1. Left ventricular systolic function [...] m/s.. 3. There is moderate aortic valve regurgitation.4. There is mild mitral valve regurgitation. 5. There is pulmonary hypertension, estimated right ventricle systolic pressure is 46 mmHg. 6. There is mild tricuspid valve regurgitation. 7. Mild left ventricular eccentric hypertrophy. 8. Septal wall motion abnormality consistent with cardiac surgery.History/Risk Factors Hypertension: Yes Dyslipidemia: Yes Coronary Artery [...] function is normal. Septal wall motion abnormality c onsistent with cardiac surgery. Right Ventricle Right ventricular [...] regurgitation. Pulmonic Valve The pulmonic valve is normal . There is no pulmonic valve stenosis. There is trace pulmonic regurgitation. Mitral Valve The mitral valve has thickened leaflets. There is no mitral valve stenosis. There is mild mitral valve regurgitation. Tricuspid Valve The tricuspid valve leaflets are normal. There is no significant tricuspidvalve stenosis. There is mild tricuspid valve regurgitation. [...] of 1.4 cm/m2. Left Ventricular Outflow Tract Na me Value Normal LVOT 2D LVOT Diameter 2.2 cm LVOT Doppler LVOT Peak Velocity 1.4 m/s LVOT Mean Gradient 4 mmHg LVOT VTI 39 cm LVOT VTI/AV VTI Ratio 0.3 LVOT Stroke Volume 149 ml LVOT Stroke Index 66.49 ml/m2 Pulmonic Valve Name Value Normal PV D oppler PV Peak Velocity 1.33m/s PV Mean Gradient 4 mmHg PV VTI 37 cm Mitral Valve Name Value Normal MV Doppler MV Peak Velocity 1.15 m/s MV Mean Gradient 2 mmHg MV VTI 28 cm MV Decel Citrus 718 cm/s2 MV PHT 48 ms MVArea (PHT) 4.6 cm2 4.0-5.0 MV Area (Cont Eq VTI) 5.2 cm2 MV Area Index (Cont Eq VTI) 2.34 cm2/m2 MVRegurgitation Doppler MR PISA Radius 0.6 cm MR PISA Alias Velocity 31 cm/s MR Vena Contracta 0.5 cm MR ERO (PISA) 2.3 cm2 MV Diastolic Function MV E Peak Velocity 1 m/s MV A Peak Velocity 1 m/s MV E/A 1.2 MV Decel Time 165 ms MV Annular TDI MV Septal e' Velocity 6.0 cm/s >=8.0 [...] 13.1 MV A/a' (Average) 10.0 Tricuspid Valve Name Value Normal TV Regurgitation Doppler TR Peak Velocity 3.09 m/s Estimated PAP/RSVP RA Pressu re 8 mmHg <=5 PA Systolic Pressure 46 mmHg <=36 RV Systolic Pressure 46 mmHg <36 Aorta Name Value Normal Ascending Aorta Ao Root Diameter (2D) 3.0 cm 2.7-3.3 Ao Root Diam Index (2D) 1.3 cm/m2 1.6-2.0 Prox Asc Ao Diameter 3.2 cm 2.3-3.1 Prox Asc Ao Diameter Index 1.4 cm/m2 1.3-1.9 Venous Name Value Normal - IVC/SVC IVC Diameter (Exp 2D) 2.4 cm <=2.1 Aortic Valve Name Value Normal AV Doppler AV Peak Velocity 4.8 m/s AV Mean Gradient 48 mmHg AV VTI 114 cm AV Area (Cont Eq VTI) 1.3 cm2 AV Area Index (Cont Eq VTI) 1 cm2/m2 AV Area (Cont Eq Alvarez) 1.1 cm2 AV Area Index (Cont Eq Alvarez) 0 cm2/m2 LVOT Vmax/AV Vmax 0.29 LVOT VTI/AV VTI Ratio 0.3 AV Regurgitation 2D LVOT Area 3.8 cm2 AV Regurgitation Doppler AR Peak Velocity 480 cm/s AR VTI 179 cm AR Decel Citrus 490 cm/s2 AR PHT 283 ms AR Vena Contracta 0.7 cm AR PISA Alias Velocity 31 cm/s AR PISA Radius 0.6 cm AV ERO (PISA) 0.15 cm2 AR Volume (PISA) 26 ml Ventricles Name Value Normal --- LV Dimensions 2D/MM IVS Diastolic Thickness (2D) 1.3 cm 0.6-0.9 LVID Diastole (2D) 5.1 cm 3.8-5.2 LVIW Diastolic Thickness (2D) 1.0 cm 0.6-0.9 LVID Systole (2D)3.4 cm 2.2-3.5 LVOT Diameter 2.2 cm LV Mass (2D Cubed) 219.40 g 67.00-162.00 LV Mass Index (2D Cubed) 98 g/m2 43- 95 Relative Wall Thickness (2D) 0.37 <=0.42 LV Fractional Shortening/Ejection Fraction 2D/MM LV Fractional Shortening (2D) 34 % 27-45 LV EF (2D Teicholz) 62 % 54-74 LV Diastolic Volume (4C MOD) 110 ml LV SystolicVolume (4C MOD) 55 ml LV EF (4C [...] (4C MOD) 24.66 ml/m2 RV Dimensions 2D/MM RV Basal Diastolic Dimension 3.9 cm 2.5-4.1 RV Mid-Cavity Diastolic Dimension 3.7 cm 1.9- 3.5 TAPSE 1.6 cm >=1.7 RV Systolic Function RV s' Velocity 0.1 m/s 0.1-0.2 Atria ------ Name Value Normal LA Dimensions LA Area (4C) 26.7 cm2 LA Length [...] (BP MOD) 42 ml/m2 16-34 RA Dimensions RA Systolic Major [place] Length (4C) 7.17 cm <=5.30 RAArea (4C) 28.7 cm2 <=18.0 RA Area (4C) Index 13 cm2/m2 RA ESV (4C MOD) 90 ml 15-27 RA ESV Index (4C MOD) 40 ml/m2 <=27 Report Signatures Finalized by Diego Fox MD, [place] on 12/30/2021 05:14 PM XR Chest AP/PA and LAT Result Date: 01/09/2022 EXAMINATION: TWO XRAY VIEWS OF THE CHEST 01/09/2022 8:22 am COMPARISON: 05/13/2016 HISTORY: ORDERINGSYSTEM PROVIDED HISTORY: Preop TAVR; TECHNOLOGIST PROVIDED HISTORY: [...] stable. Stable examination. Stable cardiomegaly. Workstation ID: [id number] History and physical note* Angelica Randall CNP - 01/21/2022 10:05 AM EST INTERVAL HISTORY AND PHYSICAL Patient Name: Vickie Gonzalez Admit Date: 2220101 MR #: [id number] : 1955 The H&P has been reviewed [...] Name: Vickie Gonzalez Admit Date: MR #: [id number] : 1955 Physicians: Nicol Ibanez MD (Family) Assessment and Plan: 66 y with severe symptomatic aortic stenosis with moderate aortic insufficiency with previous CABG.TAVR work-up ongoing. Together, with the patient, the [...] wrapped completely around the aorta, encompass pulmonary artery,distal RVOT and right atrium, intraoperative biopsy showed fibrosis with inflammation, fibrosing mediastinitis, hyperlipidemia, hiatal hernia, basal cell carcinoma who follows closely with Dr. Silveira for known AI. Over the summer she began experiencing jaw discomfort with chest pain with exertion, relieved with rest. She has limited her activity level since that time. She admits to dyspnea on e xertion, worsening cough, occasional lightheadedness. She denies LE edema, orthopnea, PND, hospitaladmissions for heart failure. She underwent a repeat [...] tablet by mouth daily . Historical Provider, [id number] ORAL Take 1 tablet by mouth daily [...] denies blood in stool or black tarry stools.denies hematuria Musc: denies joint pain or swelling, denies lower extremity edema Neuro: denies TIA, CVA. denies neuropathy, denies carpal tunnel syndrome, denies spinal stenosis Endo: denies polyuria, polydipsia Dental: last dental visit dental clearance obtained Physical Examination: Vital Signs: BP 143/80 Pulse 78 Temp 98 F (36.7 C) Resp 18 Ht 5' 6 Wt 106.3 kg (234 lb 5.6 oz) JaB177% BMI 37.82 kg/m General: Alert, cooperative, no [...] Component Value Date HGBA1C 6.1 (H) 01/09/2022 @[id number]@ CT TAVR Chest Abdomen Pelvis without hydration Result Date: 01/09/2022 EXAMINATION: CTA OF THE CHEST, ABDOMEN AND PELVIS WITH AND WITHOUT CONTRAST - TAVR PROTOCOL 01/09/2022 8:44 am TECHNIQUE: CTA of the chest, abdomen and pelvis was performed before and after the administration of intravenous contrast. Multiplanar reformatted images are provided for review. MIP imagesare provided for review. Dose modulation, iterative reconstruction, [...] without focal destructive lesion. CTA ABDOMEN: No evidenceof abdominal aortic dissection or aneurysm. No significant [...] abnormality. There is no evidence of bowel obstruction.No evidence of abnormal bowel wall thickening or distention. No evidence of ascites or free air. Noevidence of lymphadenopathy. CTA PELVIS: Aortic bifurcation and [...] dilated ascending thoracic aorta measuring 4.5 cm indiameter. Worsening atherosclerotic calcifications of the aortic root and ascending thoracic aorta.This was present in 2010 but has progressed. [...] the abdomen or pelvis. VK/tde Workstation ID: [id number] Carotid Duplex Result Date: 01/09/2022 Patient Info Name: VICKIE GONZALEZ Age: 66 years : 1955 Gender: Female Exam Date: 01/09/2022 11:00 AM Patient Status: Outpatient Automatic Pilot Mechanic: Corina BOWDEN RVT^^^^ Referring Physician: ANGELICA RANDALL ; Attending Physician: ANGELICA RANDALL Indications I35.0 - Aortic valve stenosis, severe Z01.810 - Pre-operative cardiovascular examination R09.89 - Other specified symptoms and signs involving the circulatory and respiratory systems - Preop TAVR Procedure Description 42706 Duplex examination using B-mode, color and spectral Doppler of extracranial arteries; complete bilateral study. NASCET criteria is used when performing imaging correlation with carotid duplex interpretation. Conclusions * Right. * 1-49% stenosis of the proximal right internal carotid artery. * Right vertebral artery is patent with antegrade flow. * No evidence ofstenosis in the right external carotid and subclavian arteries. * Left. * 1-49% stenosis of the prox imal left internal carotid artery. * Left vertebral artery is patent with antegrade flow. * No evidence of stenosis in the left external carotid and subclavian arteries. Measurements Name Value Right PSV Right Prox CCA PSV 85 cm/s Right Mid CCA PSV 81 cm/s Right Distal CCA PSV 70 cm/s R ight Prox ICA PSV 61 cm/s Right Mid ICA PSV 96 cm/s Right Distal ICA PSV 92 cm/s Right ECA PSV 64 cm/s Right Vert PSV 87 cm/s Right Prox SCA PSV 177 cm/s Rt ICA/CCA Ratio 0.9 Measurements Name Value Right EDV Right Prox CCA EDV 10 cm/s Right Mid CCA EDV 18 cm/s Right Distal CCA EDV 21 cm/s Right Prox ICA EDV 21 cm/s Right Mid ICA EDV 19 cm/s Right Distal ICA EDV 23 cm/s Right ECA EDV0 cm/s Right Vert EDV 19 cm/s Measurements Name Value Left PSV Left Prox CCA PSV 78 cm/s Left Mid CCA PSV 78 cm/s Left Distal CCA PSV 77 cm/s Left Prox ICA PSV 69 cm/s Left Mid ICA PSV 110 cm/s Left Distal ICA PSV 89 cm/s Left ECA PSV 53 cm/s Left Vert PSV 41 cm/s Left Prox SCA PSV 153cm/s Lt ICA/CCA Ratio 0.9 Measurements Name Value Left EDV Left Prox CCA EDV 11 cm/s Left [...] Date: 12/30/2021 11:07 AM Patient Status: Outpatient Son ographer: Angelica Lynne, RDCS, RVT Exam Type: ECHOCARDIOGRAM COMPLETE Study Info Indications I35.1 - Nonrheumatic aortic (valve) insufficiency Referring Physician: BLAINE SILVEIRA ; [id number] BMI:36.64 kg/m2 Summary 1. Left ventricular systolic function [...] m/s.. 3. There is moderate aortic valve regurgitation.4. There is mild mitral valve regurgitation. 5. There is pulmonary hypertension, estimated right ventricle systolic pressure is 46 mmHg. 6. There is mild tricuspid valve regurgitation. 7. Mild left ventricular eccentric hypertrophy. 8. Septal wall motion abnormality consistent with cardiac surgery.History/Risk Factors Hypertension: Yes Dyslipidemia: Yes Coronary Artery [...] function is normal. Septal wall motion abnormality c onsistent with cardiac surgery. Right Ventricle Right ventricular [...] regurgitation. Pulmonic Valve The pulmonic valve is normal . There is no pulmonic valve stenosis. There is trace pulmonic regurgitation. Mitral Valve The mitral valve has thickened leaflets. There is no mitral valve stenosis. There is mild mitral valve regurgitation. Tricuspid Valve The tricuspid valve leaflets are normal. There is no significant tricuspidvalve stenosis. There is mild tricuspid valve regurgitation. [...] of 1.4 cm/m2. Left Ventricular Outflow Tract Na me Value Normal LVOT 2D LVOT Diameter 2.2 cm LVOT Doppler LVOT Peak Velocity 1.4 m/s LVOT Mean Gradient 4 mmHg LVOT VTI 39 cm LVOT VTI/AV VTI Ratio 0.3 LVOT Stroke Volume 149 ml LVOT Stroke Index 66.49 ml/m2 Pulmonic Valve Name Value Normal PV D oppler PV Peak Velocity 1.33m/s PV Mean Gradient 4 mmHg PV VTI 37 cm Mitral Valve Name Value Normal MV Doppler MV Peak Velocity 1.15 m/s MV Mean Gradient 2 mmHg MV VTI 28 cm MV Decel Citrus 718 cm/s2 MV PHT 48 ms MVArea (PHT) 4.6 cm2 4.0-5.0 MV Area (Cont Eq VTI) 5.2 cm2 MV Area Index (Cont Eq VTI) 2.34 cm2/m2 MVRegurgitation Doppler MR PISA Radius 0.6 cm MR PISA Alias Velocity 31 cm/s MR Vena Contracta 0.5 cm MR ERO (PISA) 2.3 cm2 MV Diastolic Function MV E Peak Velocity 1 m/s MV A Peak Velocity 1 m/s MV E/A 1.2 MV Decel Time 165 ms MV Annular TDI MV Septal e' Velocity 6.0 cm/s >=8.0 [...] 13.1 MV A/a' (Average) 10.0 Tricuspid Valve Name Value Normal TV Regurgitation Doppler TR Peak Velocity 3.09 m/s Estimated PAP/RSVP RA Pressu re 8 mmHg <=5 PA Systolic Pressure 46 mmHg <=36 RV Systolic Pressure 46 mmHg <36 Aorta Name Value Normal Ascending Aorta Ao Root Diameter (2D) 3.0 cm 2.7-3.3 Ao Root Diam Index (2D) 1.3 cm/m2 1.6-2.0 Prox Asc Ao Diameter 3.2 cm 2.3-3.1 Prox Asc Ao Diameter Index 1.4 cm/m2 1.3-1.9 Venous Name Value Normal - IVC/SVC IVC Diameter (Exp 2D) 2.4 cm <=2.1 Aortic Valve Name Value Normal AV Doppler AV Peak Velocity 4.8 m/s AV Mean Gradient 48 mmHg AV VTI 114 cm AV Area (Cont Eq VTI) 1.3 cm2 AV Area Index (Cont Eq VTI) 1 cm2/m2 AV Area (Cont Eq Alvarez) 1.1 cm2 AV Area Index (Cont Eq Alvarez) 0 cm2/m2 LVOT Vmax/AV Vmax 0.29 LVOT VTI/AV VTI Ratio 0.3 AV Regurgitation 2D LVOT Area 3.8 cm2 AV Regurgitation Doppler AR Peak Velocity 480 cm/s AR VTI 179 cm AR Decel Citrus 490 cm/s2 AR PHT 283 ms AR Vena Contracta 0.7 cm AR PISA Alias Velocity 31 cm/s AR PISA Radius 0.6 cm AV ERO (PISA) 0.15 cm2 AR Volume (PISA) 26 ml Ventricles Name Value Normal --- LV Dimensions 2D/MM IVS Diastolic Thickness (2D) 1.3 cm 0.6-0.9 LVID Diastole (2D) 5.1 cm 3.8-5.2 LVIW Diastolic Thickness (2D) 1.0 cm 0.6-0.9 LVID Systole (2D)3.4 cm 2.2-3.5 LVOT Diameter 2.2 cm LV Mass (2D Cubed) 219.40 g 67.00-162.00 LV Mass Index (2D Cubed) 98 g/m2 43- 95 Relative Wall Thickness (2D) 0.37 <=0.42 LV Fractional Shortening/Ejection Fraction 2D/MM LV Fractional Shortening (2D) 34 % 27-45 LV EF (2D Teicholz) 62 % 54-74 LV Diastolic Volume (4C MOD) 110 ml LV SystolicVolume (4C MOD) 55 ml LV EF (4C [...] (4C MOD) 24.66 ml/m2 RV Dimensions 2D/MM RV Basal Diastolic Dimension 3.9 cm 2.5-4.1 RV Mid-Cavity Diastolic Dimension 3.7 cm 1.9- 3.5 TAPSE 1.6 cm >=1.7 RV Systolic Function RV s' Velocity 0.1 m/s 0.1-0.2 Atria ------ Name Value Normal LA Dimensions LA Area (4C) 26.7 cm2 LA Length [...] (BP MOD) 42 ml/m2 16-34 RA Dimensions RA Systolic Major [place] Length (4C) 7.17 cm <=5.30 RAArea (4C) 28.7 cm2 <=18.0 RA Area (4C) Index 13 cm2/m2 RA ESV (4C MOD) 90 ml 15-27 RA ESV Index (4C MOD) 40 ml/m2 <=27 Report Signatures Finalized by Diego Fox MD, RPVI on 12/30/2021 05:14 PM XR Chest AP/PA and LAT Result Date: 01/09/2022 EXAMINATION: TWO XRAY VIEWS OF THE CHEST 01/09/2022 8:22 am COMPARISON: 05/13/2016 HISTORY: ORDERINGSYSTEM PROVIDED HISTORY: Preop TAVR; TECHNOLOGIST PROVIDED HISTORY: [...] stable. Stable examination. Stable cardiomegaly. Workstation ID: [id number] documented in this [id number] Note* Op Note - Robert Pugh MD - 01/21/2022 7:22 AM EST VICKIE GONZALEZ [facility] [id number] 1955 DATE 01/21/2022 OPERATIVE REPORT SURGEON ROBERT [...] condition. ROBERT PUGH MD D 01/21/2022 12:30 [id number] T 01/21/2022 12:47 WJF/MODL [id number] Nurse Surgical operation note* Luly Arceo RN - 01/17/2022 12:[address] [facility] Surgical Department Patient Instructions for [facility]: Prior to surgery: Please bathe the [...] if desired. When you arrive at the [facility] on the day of your surgery, please note that fish and wildlife technician parking is free. Pull up to [...] to view our online educational program in [employer]? It is very helpful to watch this as it can help you understand your surgery preparation process here at [facility]. It will provide you with additional important information that will help to make your surgery and rec overy process as smooth as possible. After your [...] contact surgeon's office with any additional questions. [id number] Nurse Note* Luly Arceo RN - 01/17/2022 12:[address] [facility] Surgical Department Patient Instructions for [facility]: Prior to surgery: Please bathe the [...] if desired. When you arrive at the [facility] on the day of your surgery, please note that fish and wildlife technician parking is free. Pull up to [...] to view our online educational program in [employer]? It is very helpful to watch this as it can help you understand your surgery preparation process here at [facility]. It will provide you with additional important information that will help to make your surgery and rec overy process as smooth as possible. After your [...] with any additional questions. documented in this [id number] Miscellaneous Notes* Assessment & Plan Note - Lindsey Plummer MD - 01/09/2022 8:06 PM EST Associated Problem(s): Aortic valve stenosis, severe 1. Severe aortic stenosis moderate aortic regurgitation 2. CAD status post CABG DYE LAD MISSY RCA with left main disease and fibrosing mediastinitis at time of CABG surgery Date has been getting to have chest pain with exertion shortness of breath since the summer she hada complicated coronary bypass surgery history with fibrosing [...] Dr. Lindsey Plummer MD, MSc, GILBERTO, FACC, FSCAI. [facility] documented in this [id number] History of Present illness Narrative* Lindsey Plummer MD - 01/09/2022 8:05 PM EST [facility] Consult Heart & Vascular [facility] 01/09/2022 Lindsey Plummer MD [facility] [address] [place] [id number] Patient: Vickie Gonzalez Date of : 1955 [...] shortness of breath since the summer she hada complicated coronary bypass surgery history with fibrosing [...] Dr. Lindsey Plummer MD, MSc, GILBERTO, FACC, FSCAI. [facility] Follow-up: No follow-ups [...] hiatal hernia, basal cell carcinoma who follows closelywith Dr. Silveira for known AI. Over the [...] cardiac catheterization in 2010 showed patent DYE andRIMA with 100% occluded RCA and LM. She was referred for consideration for transcatheter aortic valve replacement. STS 1.8%, NYHA Class III by symptoms Objective Tobacco Use Smoking Status Never Smoker Smokeless Tobacco Never Used Imaging: I independently reviewed the Echo and agree with the interpretation(s) with the following comments. Severe aortic stenosis ECG 12 Lead Final Result by Muriel Guerra RN (01/09/2022 7181) Echocardiogram complete Final Result by Diego Fox MD (12/30/2021 2042) [facility] (Manager Web read) (Results Pending) HOME Medications: Patient's Medications [...] Take 1 tablet by mouth daily . [id number] ORAL Take 1 tablet by mouth daily [...] Sitting, BP Cuff Size: Adult) Pulse 78 Temp98 F (36.7 C) (Oral) Resp 16 Ht 5' 6 Wt 106.3 kg (234 lb 5.6 oz) SpO2 97% BMI 37.82 kg/m No results found for: CHOL, LDLCALC, LDLDIRECT, TRIG, HDL documented in this [id number] History of Present illness Narrative* Meir Arthur MD - 01/09/2022 1:07 PM EST [facility] TAVR CONSULTATION Patient Name: Vickie Gonzalez Admit Date: MR #: [id number] : 1955 Physicians: Nicol Ibanez MD (Family) Assessment and Plan: 66 y with severe symptomatic aortic stenosis with moderate aortic insufficiency with previous CABG.TAVR work-up ongoing. Together, with the patient, the [...] wrapped completely around the aorta, encompass pulmonary artery,distal RVOT and right atrium, intraoperative biopsy showed fibrosis with inflammation, fibrosing mediastinitis, hyperlipidemia, hiatal hernia, basal cell carcinoma who follows closely with Dr. Silveira for known AI. Over the summer she began experiencing jaw discomfort with chest pain with exertion, relieved with rest. She has limited her activity level since that time. She admits to dyspnea on e xertion, worsening cough, occasional lightheadedness. She denies LE edema, orthopnea, PND, hospitaladmissions for heart failure. She underwent a repeat [...] tablet by mouth daily . Historical Provider, [id number] ORAL Take 1 tablet by mouth daily [...] denies blood in stool or black tarry stools.denies hematuria Musc: denies joint pain or swelling, denies lower extremity edema Neuro: denies TIA, CVA. denies neuropathy, denies carpal tunnel syndrome, denies spinal stenosis Endo: denies polyuria, polydipsia Dental: last dental visit dental clearance obtained Physical Examination: Vital Signs: BP 143/80 Pulse 78 Temp 98 F (36.7 C) Resp 18 Ht 5' 6 Wt 106.3 kg (234 lb 5.6 oz) [id number]% BMI 37.82 kg/m General: Alert, cooperative, no [...] Component Value Date HGBA1C 6.1 (H) 01/09/2022 @[id number]@ CT TAVR Chest Abdomen Pelvis without hydration Result Date: 01/09/2022 EXAMINATION: CTA OF THE CHEST, ABDOMEN AND PELVIS WITH AND WITHOUT CONTRAST - TAVR PROTOCOL 01/09/2022 8:44 am TECHNIQUE: CTA of the chest, abdomen and pelvis was performed before and after the administration of intravenous contrast. Multiplanar reformatted images are provided for review. MIP imagesare provided for review. Dose modulation, iterative reconstruction, [...] without focal destructive lesion. CTA ABDOMEN: No evidenceof abdominal aortic dissection or aneurysm. No significant [...] abnormality. There is no evidence of bowel obstruction.No evidence of abnormal bowel wall thickening or distention. No evidence of ascites or free air. Noevidence of lymphadenopathy. CTA PELVIS: Aortic bifurcation and [...] dilated ascending thoracic aorta measuring 4.5 cm indiameter. Worsening atherosclerotic calcifications of the aortic root and ascending thoracic aorta.This was present in 2011 but has progressed. The soft tissue thickening of the wall of the ascending aorta may be related to chronic fibrosis. Extensive atherosclerotic calcifications of the aortic valve. No evidence of aortic dissection. Abdominal aorta is unremarkable in appearance. Cardiomegaly with evidence of prior CABG. No acute process in the lungs. No acute process in the abdomen or pelvis. Skaffl/tde Workstation ID: [id number] Carotid Duplex Result Date: 01/09/2022 Patient Info Name: VICKIE GONZALEZ Age: 66 years : 1955 Gender: Female Exam Date: 01/09/2022 11:00 AM Patient Status: Outpatient Automatic Pilot Mechanic: Corina BOWDEN RVT^^^^ Referring Physician: ANGELICA RANDALL ; Attending Physician: ANGELICA RANDALL Indications I35.0 - Aortic valve stenosis, severe Z01.810 - Pre-operative cardiovascular examination R09.89 - Other specified symptoms and signs involving the circulatory and respiratory systems - Preop TAVR Procedure Description 79884 Duplex examination using B-mode, color and spectral Doppler of extracranial arteries; complete bilateral study. NASCET criteria is used when performing imaging correlation with carotid duplex interpretation. Conclusions * Right. * 1-49% stenosis of the proximal right internal carotid artery. * Right vertebral artery is patent with antegrade flow. * No evidence ofstenosis in the right external carotid and subclavian arteries. * Left. * 1-49% stenosis of the prox imal left internal carotid artery. * Left vertebral artery is patent with antegrade flow. * No evidence of stenosis in the left external carotid and subclavian arteries. Measurements Name Value Right PSV Right Prox CCA PSV 85 cm/s Right Mid CCA PSV 81 cm/s Right Distal CCA PSV 70 cm/s R ight Prox ICA PSV 61 cm/s Right Mid ICA PSV 96 cm/s Right Distal ICA PSV 92 cm/s Right ECA PSV 64 cm/s Right Vert PSV 87 cm/s Right Prox SCA PSV 177 cm/s Rt ICA/CCA Ratio 0.9 Measurements Name Value Right EDV Right Prox CCA EDV 10 cm/s Right Mid CCA EDV 18 cm/s Right Distal CCA EDV 21 cm/s Right Prox ICA EDV 21 cm/s Right Mid ICA EDV 19 cm/s Right Distal ICA EDV 23 cm/s Right ECA EDV0 cm/s Right Vert EDV 19 cm/s Measurements Name Value Left PSV Left Prox CCA PSV 78 cm/s Left Mid CCA PSV 78 cm/s Left Distal CCA PSV 77 cm/s Left Prox ICA PSV 69 cm/s Left Mid ICA PSV 110 cm/s Left Distal ICA PSV 89 cm/s Left ECA PSV 53 cm/s Left Vert PSV 41 cm/s Left Prox SCA PSV 153cm/s Lt ICA/CCA Ratio 0.9 Measurements Name Value Left EDV Left Prox CCA EDV 11 cm/s Left [...] Date: 12/30/2021 11:07 AM Patient Status: Outpatient Son gabriele: Angelica Lynne, RDCS, RVT Exam Type: ECHOCARDIOGRAM COMPLETE Study Info Indications I35.1 - Nonrheumatic aortic (valve) insufficiency Referring Physician: BLAINE SILVEIRA ; [id number] BMI:36.64 kg/m2 Summary 1. Left ventricular systolic function [...] m/s.. 3. There is moderate aortic valve regurgitation.4. There is mild mitral valve regurgitation. 5. There is pulmonary hypertension, estimated right ventricle systolic pressure is 46 mmHg. 6. There is mild tricuspid valve regurgitation. 7. Mild left ventricular eccentric hypertrophy. 8. Septal wall motion abnormality consistent with cardiac surgery.History/Risk Factors Hypertension: Yes Dyslipidemia: Yes Coronary Artery [...] function is normal. Septal wall motion abnormality c onsistent with cardiac surgery. Right Ventricle Right ventricular [...] regurgitation. Pulmonic Valve The pulmonic valve is normal . There is no pulmonic valve stenosis. There is trace pulmonic regurgitation. Mitral Valve The mitral valve has thickened leaflets. There is no mitral valve stenosis. There is mild mitral valve regurgitation. Tricuspid Valve The tricuspid valve leaflets are normal. There is no significant tricuspidvalve stenosis. There is mild tricuspid valve regurgitation. [...] of 1.4 cm/m2. Left Ventricular Outflow Tract Na me Value Normal LVOT 2D LVOT Diameter 2.2 cm LVOT Doppler LVOT Peak Velocity 1.4 m/s LVOT Mean Gradient 4 mmHg LVOT VTI 39 cm LVOT VTI/AV VTI Ratio 0.3 LVOT Stroke Volume 149 ml LVOT Stroke Index 66.49 ml/m2 Pulmonic Valve Name Value Normal PV D oppler PV Peak Velocity 1.33m/s PV Mean Gradient 4 mmHg PV VTI 37 cm Mitral Valve Name Value Normal MV Doppler MV Peak Velocity 1.15 m/s MV Mean Gradient 2 mmHg MV VTI 28 cm MV Decel [place] 718 cm/s2 MV PHT 48 ms MVArea (PHT) 4.6 cm2 4.0-5.0 MV Area (Cont Eq VTI) 5.2 cm2 MV Area Index (Cont Eq VTI) 2.34 cm2/m2 MVRegurgitation Doppler MR PISA Radius 0.6 cm MR PISA Alias Velocity 31 cm/s MR Vena Contracta 0.5 cm MR ERO (PISA) 2.3 cm2 MV Diastolic Function MV E Peak Velocity 1 m/s MV A Peak Velocity 1 m/s MV E/A 1.2 MV Decel Time 165 ms MV Annular TDI MV Septal e' Velocity 6.0 cm/s >=8.0 [...] 13.1 MV A/a' (Average) 10.0 Tricuspid Valve Name Value Normal TV Regurgitation Doppler TR Peak Velocity 3.09 m/s Estimated PAP/RSVP RA Pressu re 8 mmHg <=5 PA Systolic Pressure 46 mmHg <=36 RV Systolic Pressure 46 mmHg <36 Aorta Name Value Normal Ascending Aorta Ao Root Diameter (2D) 3.0 cm 2.7-3.3 Ao Root Diam Index (2D) 1.3 cm/m2 1.6-2.0 Prox Asc Ao Diameter 3.2 cm 2.3-3.1 Prox Asc Ao Diameter Index 1.4 cm/m2 1.3-1.9 Venous Name Value Normal - IVC/SVC IVC Diameter (Exp 2D) 2.4 cm <=2.1 Aortic Valve Name Value Normal AV Doppler AV Peak Velocity 4.8 m/s AV Mean Gradient 48 mmHg AV VTI 114 cm AV Area (Cont Eq VTI) 1.3 cm2 AV Area Index (Cont Eq VTI) 1 cm2/m2 AV Area (Cont Eq Alvarez) 1.1 cm2 AV Area Index (Cont Eq Alvarez) 0 cm2/m2 LVOT Vmax/AV Vmax 0.29 LVOT VTI/AV VTI Ratio 0.3 AV Regurgitation 2D LVOT Area 3.8 cm2 AV Regurgitation Doppler AR Peak Velocity 480 cm/s AR VTI 179 cm AR Decel [place] 490 cm/s2 AR PHT 283 ms AR Vena Contracta 0.7 cm AR PISA Alias Velocity 31 cm/s AR PISA Radius 0.6 cm AV ERO (PISA) 0.15 cm2 AR Volume (PISA) 26 ml Ventricles Name Value Normal --- LV Dimensions 2D/MM IVS Diastolic Thickness (2D) 1.3 cm 0.6-0.9 LVID Diastole (2D) 5.1 cm 3.8-5.2 LVIW Diastolic Thickness (2D) 1.0 cm 0.6-0.9 LVID Systole (2D)3.4 cm 2.2-3.5 LVOT Diameter 2.2 cm LV Mass (2D Cubed) 219.40 g 67.00-162.00 LV Mass Index (2D Cubed) 98 g/m2 43- 95 Relative Wall Thickness (2D) 0.37 <=0.42 LV Fractional Shortening/Ejection Fraction 2D/MM LV Fractional Shortening (2D) 34 % 27-45 LV EF (2D Teicholz) 62 % 54-74 LV Diastolic Volume (4C MOD) 110 ml LV SystolicVolume (4C MOD) 55 ml LV EF (4C [...] (4C MOD) 24.66 ml/m2 RV Dimensions 2D/MM RV Basal Diastolic Dimension 3.9 cm 2.5-4.1 RV Mid-Cavity Diastolic Dimension 3.7 cm 1.9- 3.5 TAPSE 1.6 cm >=1.7 RV Systolic Function RV s' Velocity 0.1 m/s 0.1-0.2 Atria ------ Name Value Normal LA Dimensions LA Area (4C) 26.7 cm2 LA Length [...] (BP MOD) 42 ml/m2 16-34 RA Dimensions RA Systolic Major [place] Length (4C) 7.17 cm <=5.30 RAArea (4C) 28.7 cm2 <=18.0 RA Area (4C) Index 13 cm2/m2 RA ESV (4C MOD) 90 ml 15-27 RA ESV Index (4C MOD) 40 ml/m2 <=27 Report Signatures Finalized by Diego Fox MD, RPVI on 12/30/2021 05:14 PM XR Chest AP/PA and LAT Result Date: 01/09/2022 EXAMINATION: TWO XRAY VIEWS OF THE CHEST 01/09/2022 8:22 am COMPARISON: 05/13/2016 HISTORY: ORDERINGSYSTEM PROVIDED HISTORY: Preop TAVR; TECHNOLOGIST PROVIDED HISTORY: [...] stable. Stable examination. Stable cardiomegaly. Workstation ID: [id number] * Angelica Randall CNP - 01/09/2022 12:44 PM EST [facility] TAVR CONSULTATION Patient Name: Vickie Gonzalez Admit Date: MR #: [id number] : 1955 Physicians: Nicol Ibanez MD (Family) [...] wrapped completely around the aorta, encompass pulmonary artery,distal RVOT and right atrium, intraoperative biopsy showed fibrosis with inflammation, fibrosing mediastinitis, hyperlipidemia, hiatal hernia, basal cell carcinoma who follows closely with Dr. Silveira for known AI. Over the summer she began experiencing jaw discomfort with chest pain with exertion, relieved with rest. She has limited her activity level since that time. She admits to dyspnea on e xertion, worsening cough, occasional lightheadedness. She denies LE edema, orthopnea, PND, hospitaladmissions for heart failure. She underwent a repeat [...] tablet by mouth daily . Historical Provider, [id number] ORAL Take 1 tablet by mouth daily [...] denies blood in stool or black tarry stools.denies hematuria Musc: denies joint pain or swelling, denies lower extremity edema Neuro: denies TIA, CVA. denies neuropathy, denies carpal tunnel syndrome, denies spinal stenosis Endo: denies polyuria, polydipsia Dental: last dental visit dental clearance obtained Physical Examination: Vital Signs: BP 143/80 Pulse 78 Temp 98 F (36.7 C) Resp 18 Ht 5' 6 Wt 106.3 kg (234 lb 5.6 oz) [id number]% BMI 37.82 kg/m General: Alert, cooperative, no [...] Component Value Date HGBA1C 6.1 (H) 01/09/2022 @[id number]@ CT TAVR Chest Abdomen Pelvis without hydration Result Date: 01/09/2022 EXAMINATION: CTA OF THE CHEST, ABDOMEN AND PELVIS WITH AND WITHOUT CONTRAST - TAVR PROTOCOL 01/09/2022 8:44 am TECHNIQUE: CTA of the chest, abdomen and pelvis was performed before and after the administration of intravenous contrast. Multiplanar reformatted images are provided for review. MIP imagesare provided for review. Dose modulation, iterative reconstruction, [...] without focal destructive lesion. CTA ABDOMEN: No evidenceof abdominal aortic dissection or aneurysm. No significant [...] abnormality. There is no evidence of bowel obstruction.No evidence of abnormal bowel wall thickening or distention. No evidence of ascites or free air. Noevidence of lymphadenopathy. CTA PELVIS: Aortic bifurcation and [...] dilated ascending thoracic aorta measuring 4.5 cm indiameter. Worsening atherosclerotic calcifications of the aortic root and ascending thoracic aorta.This was present in 2011 but has progressed. The soft tissue thickening of the wall of the ascending aorta may be related to chronic fibrosis. Extensive atherosclerotic calcifications of the aortic valve. No evidence of aortic dissection. Abdominal aorta is unremarkable in appearance. Cardiomegaly with evidence of prior CABG. No acute process in the lungs. No acute process in the abdomen or pelvis. Skaffl/tde Workstation ID: [id number] Carotid Duplex Result Date: 01/09/2022 Patient Info Name: VICKIE GONZALEZ Age: 66 years : 1955 Gender: Female Exam Date: 01/09/2022 11:00 AM Patient Status: Outpatient Automatic Pilot Mechanic: Corina BOWDEN RVT^^^^ Referring Physician: ANGELICA RANDALL ; Attending Physician: ANGELICA RANDALL Indications I35.0 - Aortic valve stenosis, severe Z01.810 - Pre-operative cardiovascular examination R09.89 - Other specified symptoms and signs involving the circulatory and respiratory systems - Preop TAVR Procedure Description 51316 Duplex examination using B-mode, color and spectral Doppler of extracranial arteries; complete bilateral study. NASCET criteria is used when performing imaging correlation with carotid duplex interpretation. Conclusions * Right. * 1-49% stenosis of the proximal right internal carotid artery. * Right vertebral artery is patent with antegrade flow. * No evidence ofstenosis in the right external carotid and subclavian arteries. * Left. * 1-49% stenosis of the prox imal left internal carotid artery. * Left vertebral artery is patent with antegrade flow. * No evidence of stenosis in the left external carotid and subclavian arteries. Measurements Name Value Right PSV Right Prox CCA PSV 85 cm/s Right Mid CCA PSV 81 cm/s Right Distal CCA PSV 70 cm/s R ight Prox ICA PSV 61 cm/s Right Mid ICA PSV 96 cm/s Right Distal ICA PSV 92 cm/s Right ECA PSV 64 cm/s Right Vert PSV 87 cm/s Right Prox SCA PSV 177 cm/s Rt ICA/CCA Ratio 0.9 Measurements Name Value Right EDV Right Prox CCA EDV 10 cm/s Right Mid CCA EDV 18 cm/s Right Distal CCA EDV 21 cm/s Right Prox ICA EDV 21 cm/s Right Mid ICA EDV 19 cm/s Right Distal ICA EDV 23 cm/s Right ECA EDV0 cm/s Right Vert EDV 19 cm/s Measurements Name Value Left PSV Left Prox CCA PSV 78 cm/s Left Mid CCA PSV 78 cm/s Left Distal CCA PSV 77 cm/s Left Prox ICA PSV 69 cm/s Left Mid ICA PSV 110 cm/s Left Distal ICA PSV 89 cm/s Left ECA PSV 53 cm/s Left Vert PSV 41 cm/s Left Prox SCA PSV 153cm/s Lt ICA/CCA Ratio 0.9 Measurements Name Value Left EDV Left Prox CCA EDV 11 cm/s Left [...] Date: 12/30/2021 11:07 AM Patient Status: Outpatient Son ographer: Motil, Angelica, RDCS, RVT Exam Type: ECHOCARDIOGRAM COMPLETE Study Info Indications I35.1 - Nonrheumatic aortic (valve) insufficiency Referring Physician: BLAINE SILVEIRA ; [id number] BMI:36.64 kg/m2 Summary 1. Left ventricular systolic function [...] m/s.. 3. There is moderate aortic valve regurgitation.4. There is mild mitral valve regurgitation. 5. There is pulmonary hypertension, estimated right ventricle systolic pressure is 46 mmHg. 6. There is mild tricuspid valve regurgitation. 7. Mild left ventricular eccentric hypertrophy. 8. Septal wall motion abnormality consistent with cardiac surgery.History/Risk Factors Hypertension: Yes Dyslipidemia: Yes Coronary Artery [...] function is normal. Septal wall motion abnormality c onsistent with cardiac surgery. Right Ventricle Right ventricular [...] regurgitation. Pulmonic Valve The pulmonic valve is normal . There is no pulmonic valve stenosis. There is trace pulmonic regurgitation. Mitral Valve The mitral valve has thickened leaflets. There is no mitral valve stenosis. There is mild mitral valve regurgitation. Tricuspid Valve The tricuspid valve leaflets are normal. There is no significant tricuspidvalve stenosis. There is mild tricuspid valve regurgitation. [...] of 1.4 cm/m2. Left Ventricular Outflow Tract Na me Value Normal LVOT 2D LVOT Diameter 2.2 cm LVOT Doppler LVOT Peak Velocity 1.4 m/s LVOT Mean Gradient 4 mmHg LVOT VTI 39 cm LVOT VTI/AV VTI Ratio 0.3 LVOT Stroke Volume 149 ml LVOT Stroke Index 66.49 ml/m2 Pulmonic Valve Name Value Normal PV D oppler PV Peak Velocity 1.33m/s PV Mean Gradient 4 mmHg PV VTI 37 cm Mitral Valve Name Value Normal MV Doppler MV Peak Velocity 1.15 m/s MV Mean Gradient 2 mmHg MV VTI 28 cm MV Decel Citrus 718 cm/s2 MV PHT 48 ms MVArea (PHT) 4.6 cm2 4.0-5.0 MV Area (Cont Eq VTI) 5.2 cm2 MV Area Index (Cont Eq VTI) 2.34 cm2/m2 MVRegurgitation Doppler MR PISA Radius 0.6 cm MR PISA Alias Velocity 31 cm/s MR Vena Contracta 0.5 cm MR ERO (PISA) 2.3 cm2 MV Diastolic Function MV E Peak Velocity 1 m/s MV A Peak Velocity 1 m/s MV E/A 1.2 MV Decel Time 165 ms MV Annular TDI MV Septal e' Velocity 6.0 cm/s >=8.0 [...] 13.1 MV A/a' (Average) 10.0 Tricuspid Valve Name Value Normal TV Regurgitation Doppler TR Peak Velocity 3.09 m/s Estimated PAP/RSVP RA Pressu re 8 mmHg <=5 PA Systolic Pressure 46 mmHg <=36 RV Systolic Pressure 46 mmHg <36 Aorta Name Value Normal Ascending Aorta Ao Root Diameter (2D) 3.0 cm 2.7-3.3 Ao Root Diam Index (2D) 1.3 cm/m2 1.6-2.0 Prox Asc Ao Diameter 3.2 cm 2.3-3.1 Prox Asc Ao Diameter Index 1.4 cm/m2 1.3-1.9 Venous Name Value Normal - IVC/SVC IVC Diameter (Exp 2D) 2.4 cm <=2.1 Aortic Valve Name Value Normal AV Doppler AV Peak Velocity 4.8 m/s AV Mean Gradient 48 mmHg AV VTI 114 cm AV Area (Cont Eq VTI) 1.3 cm2 AV Area Index (Cont Eq VTI) 1 cm2/m2 AV Area (Cont Eq Alvarez) 1.1 cm2 AV Area Index (Cont Eq Alvarez) 0 cm2/m2 LVOT Vmax/AV Vmax 0.29 LVOT VTI/AV VTI Ratio 0.3 AV Regurgitation 2D LVOT Area 3.8 cm2 AV Regurgitation Doppler AR Peak Velocity 480 cm/s AR VTI 179 cm AR Decel Citrus 490 cm/s2 AR PHT 283 ms AR Vena Contracta 0.7 cm AR PISA Alias Velocity 31 cm/s AR PISA Radius 0.6 cm AV ERO (PISA) 0.15 cm2 AR Volume (PISA) 26 ml Ventricles Name Value Normal --- LV Dimensions 2D/MM IVS Diastolic Thickness (2D) 1.3 cm 0.6-0.9 LVID Diastole (2D) 5.1 cm 3.8-5.2 LVIW Diastolic Thickness (2D) 1.0 cm 0.6-0.9 LVID Systole (2D)3.4 cm 2.2-3.5 LVOT Diameter 2.2 cm LV Mass (2D Cubed) 219.40 g 67.00-162.00 LV Mass Index (2D Cubed) 98 g/m2 43- 95 Relative Wall Thickness (2D) 0.37 <=0.42 LV Fractional Shortening/Ejection Fraction 2D/MM LV Fractional Shortening (2D) 34 % 27-45 LV EF (2D Teicholz) 62 % 54-74 LV Diastolic Volume (4C MOD) 110 ml LV SystolicVolume (4C MOD) 55 ml LV EF (4C [...] (4C MOD) 24.66 ml/m2 RV Dimensions 2D/MM RV Basal Diastolic Dimension 3.9 cm 2.5-4.1 RV Mid-Cavity Diastolic Dimension 3.7 cm 1.9- 3.5 TAPSE 1.6 cm >=1.7 RV Systolic Function RV s' Velocity 0.1 m/s 0.1-0.2 Atria ------ Name Value Normal LA Dimensions LA Area (4C) 26.7 cm2 LA Length [...] (BP MOD) 42 ml/m2 16-34 RA Dimensions RA Systolic Major [place] Length (4C) 7.17 cm <=5.30 RAArea (4C) 28.7 cm2 <=18.0 RA Area (4C) Index 13 cm2/m2 RA ESV (4C MOD) 90 ml 15-27 RA ESV Index (4C MOD) 40 ml/m2 <=27 Report Signatures Finalized by Diego Fox MD, [place] on 12/30/2021 05:14 PM XR Chest AP/PA and LAT Result Date: 01/09/2022 EXAMINATION: TWO XRAY VIEWS OF THE CHEST 01/09/2022 8:22 am COMPARISON: 05/13/2016 HISTORY: ORDERINGSYSTEM PROVIDED HISTORY: Preop TAVR; TECHNOLOGIST PROVIDED HISTORY: [...] stable. Stable examination. Stable cardiomegaly. Workstation ID: [id number] documented in this [id number] Miscellaneous Notes* Assessment & Plan Note - Blaine Silveira MD - 06/10/2021 11:40 AM EDT Associated Problem(s): HLD (hyperlipidemia) Reviewed ldl and hdl labs(80,69) and would continue pravastatin * Assessment & Plan Note - Blaine Silveira MD - 06/10/2021 11:37 AM EDT Associated Problem(s): Elevated sed rate Has some finger arthritis and also could be fibrosiing mediastinitis [employer] T[employer] in [place] and was on plaquenil a while, but stopped * Assessment & Plan Note - Blaine Silveira MD - 06/10/2021 11:29 AM EDT Associated Problem(s): Aortic insufficiency symptoms could also be Aortic Stenosis/AI will recheck echo * Assessment & Plan Note - Blaine Silveira MD - 06/10/2021 11:24 AM EDT Associated Problem(s): Coronary artery disease involving hop[place] coronary artery of hop[place] heart without angina pectoris Has had 2 spells of chest / jaw discomfort and shortness of breath, relieved with rest Will get a stress, she will also check and walk and if gets predictable may need a cath continue asa/metoprolol and will give sl ntg documented in this [id number] History of Present illness Narrative* Blaine Silveira MD - 06/10/2021 11:34 AM EDT Patient Name: Vickie Gonzalez MR #: [id number] Interventional Cardiology Blaine Silveira MD, [facility] 06/10/21 Dear Nicol Ibanez MD, Vickie Gonzalez was seen in follow up for : Problem Coronary Artery Disease Involving Kaw Coronary Artery of Kaw Heart Without Angina Pectoris CABG 2000 Cath 2010 all grafts open Aortic Insufficiency Moderate to Severe Asx AI-- same 12/2017 only mild-moderate Elevated Sed Rate Hld (Hyperlipidemia) Assessment and Plan Coronary artery disease involving hop[place] coronary artery of hop[place] heart without angina pectoris Has had 2 [...] and also could be fibrosiing mediastinitis [employer] T[employer] in [place] and was on plaquenil a while, but [...] Take 1 tablet by mouth daily . [id number] ORAL Take 1 tablet by mouth daily [...] (40 mg total) by mouth daily . * Zoila Cueto MA - 06/10/2021 11:15 AM EDT Review of Systems Constitutional: Negative for diaphoresis, [...] patient is not nervous/anxious. documented in this [id number] Instructions* Patient Instructions* Zoila Cueto MA - 06/10/2021 11:15 AM EDT How to contact your Care Team: Provider: Dr. Silveira Nurse: Iliana Madsen RN In case of an emergency please call 911. REFILLS: When in need for refills please call your care team or the office at [phone]. Please include medication name, pharmacy name, and specify 30-day or 90-day supply. Please check with your pharmacy within 24 hours of request for your refill. You must follow up as directed to continue current refills. Thank you! documented [facility]* Diagnosis Coronary artery disease involving hop[place] coronary artery of [place] heart without angina pectoris- Primary [facility] Diagnosis Coronary artery disease involving [place] coronary artery of [place] heart without angina pectoris Nonrheumatic aortic valve insufficiency Elevated sed rate Elevated sedimentation rate Mixed hyperlipidemia [facility] Diagnosis Nonrheumatic aortic valve insufficiency- Primary [facility] Diagnosis Nonrheumatic aortic valve insufficiency- Primary [facility] Diagnosis Aortic valve stenosis, severe- Primary Aortic valve disorders Pre-operative cardiovascular examination Other specified symptoms and signs involving the circulatory and respiratory systems [facility] Diagnosis Aortic valve stenosis, severe- Primary Aortic valve disorders Pre-operative cardiovascular examination Other abnormal findings in urine Abnormal coagulation profile Abnormal coagulation profile Dyspnea, unspecified type Abnormal finding of blood chemistry, unspecified [facility] Diagnosis Encounter for preprocedure screening laboratory testing for COVID-19- Primary [facility] Diagnosis Encounter for preoperative screening laboratory testing for COVID-19 virus- Primary [facility] Diagnosis Encounter for preoperative screening laboratory testing for COVID-19 virus- Primary [facility] Diagnosis Severe aortic insufficiency- Primary Aortic valve stenosis, severe Aortic valve disorders Pre-operative cardiovascular examination [facility] Diagnosis Aortic valve stenosis, severe Aortic valve disorders Pre-operative cardiovascular examination [facility] Diagnosis Aortic valve stenosis, severe- Primary Aortic valve disorders Severe aortic insufficiency Aortic valve stenosis, severe Aortic valve disorders Severe aortic insufficiency Aortic valve stenosis, severe Aortic valve disorders Severe aortic insufficiency [facility] Diagnosis Aortic valve stenosis, severe Aortic valve disorders Severe aortic insufficiency Encounter for preprocedure screening laboratory testing for COVID-19- Primary Aortic valve stenosis, severe Aortic valve disorders Severe aortic insufficiency [facility] Diagnosis S/P TAVR (transcatheter aortic valve replacement)- Primary [facility] Diagnosis Severe aortic stenosis- Primary Aortic valve disorders S/P TAVR (transcatheter aortic valve replacement) [facility] S/P [facility]AVR (transcatheter aortic valve replacement)- Primary [facility] Diagnosis S/P TAVR (transcatheter aortic valve replacement)- Primary Shortness of breath Shortness of breath [facility] Diagnosis S/P TAVR (transcatheter aortic valve replacement)- Primary [facility] Diagnosis S/P TAVR (transcatheter aortic valve replacement)- Primary Hypertension, unspecified type [facility]* Diagnosis Onset Date Resolution Status Basal cell carcinoma (BCC) of left lower extremity acute [id number] acute BMI 40.0-44.9, adult chronic HTN (hypertension) chronic [facility] Work Phone: Evaluation note* Diagnosis Onset Date Resolution Status Basal cell carcinoma (BCC) of left lower extremity acute [id number] acute BMI 40.0-44.9, adult chronic HTN (hypertension) chronic Basal cell carcinoma (BCC) of left lower extremity acute [id number] acute BMI 40.0-44.9, adult chronic HTN (hypertension) chronic 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 [facility] Work Phone: Evaluation note* Diagnosis Onset Date Resolution Status Basal cell carcinoma (BCC) of left lower extremity acute [id number] acute BMI 40.0-44.9, adult chronic HTN (hypertension) chronic Basal cell carcinoma (BCC) of left lower extremity acute [id number] acute BMI 40.0-44.9, adult chronic HTN (hypertension) chronic 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 Basal cell carcinoma (BCC) of left lower extremity acute [id number] acute BMI 40.0-44.9, adult chronic HTN (hypertension) chronic 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 [facility] Work Phone: Evaluation note* Diagnosis Onset Date Resolution Status Basal cell carcinoma (BCC) of left lower extremity acute [id number] acute BMI 40.0-44.9, adult chronic HTN (hypertension) chronic Basal cell carcinoma (BCC) of left lower extremity acute [id number] acute BMI 40.0-44.9, adult chronic HTN (hypertension) chronic 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 Basal cell carcinoma (BCC) of left lower extremity acute [id number] acute BMI 40.0-44.9, adult chronic HTN (hypertension) chronic 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 Basal cell carcinoma (BCC) of left lower extremity acute [id number] acute HTN (hypertension) chronic 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 [facility] Work Phone: Evaluation note* Diagnosis Osteoarthritis of right knee, unspecified osteoarthritis type- Primary Hypertension, unspecified type [facility] Diagnosis Osteoarthritis of right knee- Primary Osteoarthrosis, unspecified whether generalized or localized, lower leg Coronary artery disease involving hop[place] coronary artery of [place] heart without angina pectoris- Primary Osteoarthritis of right knee, unspecified osteoarthritis type Severe aortic insufficiency Osteoarthritis of right knee, unspecified osteoarthritis type [facility] noteNo assessment information [facility] Work [facility]: [facility]* Diagnosis Osteoarthritis of right knee- Primary Osteoarthrosis, unspecified whether generalized or localized, lower leg MSSA (methicillin susceptible Staphylococcus aureus)- Primary Methicillin susceptible Staphylococcus aureus in conditions classified elsewhere and of unspecified site Osteoarthritis of right knee, unspecified osteoarthritis type [facility] Diagnosis Osteoarthritis of right knee- Primary Osteoarthrosis, unspecified whether generalized or localized, lower leg Osteoarthritis of right knee, unspecified osteoarthritis type- Primary Osteoarthritis of right knee, unspecified osteoarthritis type [facility]* Diagnosis Status post total right knee replacement- Primary [facility]* Diagnosis Status post total right knee replacement- Primary [facility]* Diagnosis Status post total right knee replacement- Primary [facility]* Diagnosis Status post total right knee replacement [facility] Diagnosis Status post total right knee replacement- Primary [facility]* Diagnosis Status post total right knee replacement- Primary [facility]* Diagnosis Status post total right knee replacement- Primary [facility]* Diagnosis Status post total right knee replacement- Primary [facility]* Diagnosis Status post total right knee replacement- Primary [facility]* Diagnosis Status post total right knee replacement- Primary [facility] Diagnosis Status post total right knee replacement- Primary [facility]* Diagnosis Status post total right knee replacement- Primary [facility]* Diagnosis Status post total right knee replacement- Primary [facility]* Diagnosis Status post total right knee replacement- Primary documented in this encounter [facility] note* Diagnosis Status post total right knee replacement- Primary [facility]* Diagnosis Status post total right knee replacement- Primary [facility]* Attachments The following attachments cannot be sent through Care Everywhere. * Transcatheter Aortic Valve Implantation (LIONEL): Post-op ([facility]) documented [facility] instructions Additional Instructions Ice your left eye several times a day for the next few days, follow-up with your PCP and return for any worsening of your symptoms.[facility] Work Phone: Patient's home Plan of care note* Visit Details [facility] Problems Problem Start Date Status Goals Interventions Wound Care and/or Skin Problems Disciplines: [facility] 01/27/2024 Active 1 goal linked to scheduled/documented intervention 1 goal intervention scheduled/documented in this visit Assess and Instruct Home Visit Disciplines: [facility] 01/27/2024 Active 1 goal linked to scheduled/documented intervention 4 goal interventions scheduled/documented in this visit Medication Management Disciplines: [facility] 01/27/2024 Active 1 goal linked to scheduled/documented intervention 1 goal intervention scheduled/documented in this visit Pain Management Disciplines: [facility] 01/27/2024 Active 1 goal linked to scheduled/documented intervention 1 goal intervention scheduled/documented in this visit Goals Goal Associated Problem Outcome Goal Met? Visit Notes Wound/Incision Wound Care and/or Skin Problems No Home Care Plan Assess and Instruct Home Visit No Medications Medication Management No Pain Pain Management No Interventions Intervention Associated Problem/Goal Status Variance Visit Notes Wound/Incision Care Problem:Wound Care and/or Skin Problems Goal:Wound/Incision Completed Instruct patient/caregiver in incision site care.To maintain dressing in place with jackelyn.Keep mepiplex dressing in place until follow up Appointment with Dr Pepe. May shower with dressing on. Keep incision clean and dry, Monitor for signs of infection such as fever, chills, redness, abnormal pain or swelling, pus, foul odor. Apply ice pack three times a day for an hour each time. Elevate your leg to reduce swelling. Falls Problem:Assess and Instruct Home Visit Goal:Home Care Plan Completed Clinician taught: patient 4-10 Patient IS at risk for falls (a score of 6 or greater is a predictor of future falls) and clinician instructed: proper footwear, improved lighting, remove clutter and throw rugs, handrails/grab bar placement, assistive device usage, keep frequently used items in reach and emergency response system and/or keep phone on you Patient/caregiver was able to demonstrate 75% via teachback Safety Problem:Assess and Instruct Home Visit Goal:Home Care Plan Completed Assessed patient vulnerability and home safety risks: environmental Equipment reviewed walker Patient at risk for falls and infection Family members involved in safety plan for Level 2 or 3 n/a Discharge Planning Problem:Assess and Instruct Home Visit Goal:Home Care Plan Completed Home Visit DC Planning: Spoke with patient about DC planning. DC will occur when: patient/caregiver is able to demonstrate safe ambulation, understanding of medications, wound healing, remain free of infection, wound care, pain and edema mgmt Anticipate DC: Early Patient and/or caregiver response to discharge planning education: verbalized understanding of care plan goals Plan for Next Visit Problem:Assess and Instruct Home Visit Goal:Home Care Plan Completed Follow up education for next visit: safe ambulation, medication purpose and side effects, S&S to report, pain and edema mgmt, wound care Skilled intervention at next visit: assessing compliance and medication teaching, for disease mgmt assessment and teaching, including diet, activity, S/S to report to physician, equipment management, wound care Instruct Medication Management Problem:Medication Management Goal:Medications Completed Home Visit Med Education: Medication list reconciled. Medication profile and in-home medication list updated with appropriate changes. Discrepanices noted during home visit: none Instructed patient on dosing, purpose, and side effects. Medication education completed today on routine, new, pain and antibiotic medication(s). Patient/caregiver is able to teach back 75% of instruction. Assess Pain Characteristics and Current Pain Regimen and Instruct Methods of Pain Relief Problem:Pain Management Goal:Pain Completed [facility]* Visit Details Visit Type -[facility] Discipline -[facility] Problems Problem Start Date Status Goals Interventions Wound Care and/or Skin Problems Disciplines: [facility] 01/27/2024 Active 1 goal linked to scheduled/documented intervention 1 goal intervention scheduled/documented in this visit Assess and Instruct Home Visit Disciplines: [facility] 01/27/2024 Active 1 goal linked to scheduled/documented intervention 4 goal interventions scheduled/documented in this visit Medication Management Disciplines: [facility] 01/27/2024 Active 1 goal linked to scheduled/documented intervention 1 goal intervention scheduled/documented in this visit Pain Management Disciplines: [facility] 01/27/2024 Active 1 goal linked to scheduled/documented intervention 1 goal intervention scheduled/documented in this visit Goals Goal Associated Problem Outcome Goal Met? Visit Notes Wound/Incision Wound Care and/or Skin Problems No Home Care Plan Assess and Instruct Home Visit No Medications Medication Management No Pain Pain Management No Interventions Intervention Associated Problem/Goal Status Variance Visit Notes Wound/Incision Care Problem:Wound Care and/or Skin Problems Goal:Wound/Incision Completed Instruct patient/caregiver in incision site care.To maintain dressing in place with jackelyn.Keep mepiplex dressing in place until follow up Appointment with Dr Pepe. May shower with dressing on. Keep incision clean and dry, Monitor for signs of infection such as fever, chills, redness, abnormal pain or swelling, pus, foul odor. Apply ice pack three times a day for an hour each time. Elevate your leg to reduce swelling. Falls Problem:Assess and Instruct Home Visit Goal:Home Care Plan Completed Clinician taught: patient 4-10 Patient IS at risk for falls (a score of 6 or greater is a predictor of future falls) and clinician instructed: proper footwear, improved lighting, remove clutter and throw rugs, handrails/grab bar placement, assistive device usage, keep frequently used items in reach and emergency response system and/or keep phone on you Patient/caregiver was able to demonstrate 75% via teachback Safety Problem:Assess and Instruct Home Visit Goal:Home Care Plan Completed Assessed patient vulnerability and home safety risks: environmental Equipment reviewed walker Patient at risk for falls and infection Family members involved in safety plan for Level 2 or 3 n/a Discharge Planning Problem:Assess and Instruct Home Visit Goal:Home Care Plan Completed Home Visit DC Planning: Spoke with patient about DC planning. DC will occur when: patient/caregiver is able to demonstrate safe ambulation, understanding of medications, wound healing, remain free of infection, wound care, pain and edema mgmt Anticipate DC: Early Patient and/or caregiver response to discharge planning education: verbalized understanding of care plan goals Plan for Next Visit Problem:Assess and Instruct Home Visit Goal:Home Care Plan Completed Follow up education for next visit: safe ambulation, medication purpose and side effects, S&S to report, pain and edema mgmt, wound care Skilled intervention at next visit: assessing compliance and medication teaching, for disease mgmt assessment and teaching, including diet, activity, S/S to report to physician, equipment management, wound care Instruct Medication Management Problem:Medication Management Goal:Medications Completed Home Visit Med Education: Medication list reconciled. Medication profile and in-home medication list updated with appropriate changes. Discrepanices noted during home visit: none Instructed patient on dosing, purpose, and side effects. Medication education completed today on routine, new, pain and antibiotic medication(s). Patient/caregiver is able to teach back 75% of instruction. Assess Pain Characteristics and Current Pain Regimen and Instruct Methods of Pain Relief Problem:Pain Management Goal:Pain Completed documented in this encounter [facility] home Plan of care note* Visit Details Visit Type -PT Initial Evalu ation Discipline -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 Problems Problem Start Date Status Goals Interventions Wound Care and/or Skin Problems Disciplines: 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 01/28/2024 Active 1 goal linked to scheduled/documented intervention 1 goal intervention scheduled/documented in this visit Assess and Instruct Home Visit Disciplines: 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 01/28/2024 Active 2 goals linked to scheduled/documented interventions 4 goal interventions scheduled/documented in this visit Goals Goal Associated Problem Outcome Goal Met? Visit Notes Wound/Incision Wound Care and/or Skin Problems No Medications Assess and Instruct Home Visit No Home Care Plan Assess and Instruct Home Visit No Interventions Intervention Associated Problem/Goal Status Variance Visit Notes Wound/Incision Monitoring Problem:Wound Care and/or Skin Problems Goal:Wound/Incision Scheduled Instruct Medication Management Problem:Assess and Instruct Home Visit Goal:Medications Scheduled Falls Problem:Assess and Instruct Home Visit Goal:Home Care Plan Scheduled Safety Problem:Assess and Instruct Home Visit Goal:Home Care Plan Scheduled Plan for Next Visit Problem:Assess and Instruct Home Visit Goal:Home Care Plan Scheduled documented in this encounter [facility] home Plan of care note* Visit Details 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 -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 Problems Problem Start Date Status Goals Interventions Wound Care and/or Skin Problems Disciplines: 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 01/28/2024 Active 1 goal linked to scheduled/documented intervention 1 goal intervention scheduled/documented in this visit Assess and Instruct Home Visit Disciplines: 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 01/28/2024 Active 2 goals linked to scheduled/documented interventions 4 goal interventions scheduled/documented in this visit Home Exercise Program Disciplines: 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 01/28/2024 Active 1 goal linked to scheduled/documented intervention 1 goal intervention scheduled/documented in this visit Mobility Disciplines: 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 01/28/2024 Active 1 goal linked to scheduled/documented intervention 1 goal intervention scheduled/documented in this visit Goals Goal Associated Problem Outcome Goal Met? Visit Notes Wound/Incision Wound Care and/or Skin Problems No Medications Assess and Instruct Home Visit No Home Care Plan Assess and Instruct Home Visit No Home Exercise Program Home Exercise Program No Mobility Mobility No Interventions Intervention Associated Problem/Goal Status Variance Visit Notes Wound/Incision Monitoring Problem:Wound Care and/or Skin Problems Goal:Wound/Incision Completed Educated patient on hand hygiene and infection control techniques, signs/symptoms of infection and when to call or report concerns to home health or provider. patient able to verbalize teach back of hand hygiene, signs/symptoms of infection and when to call or report concerns to home health or provider. Instruct Medication Management Problem:Assess and Instruct Home Visit Goal:Medications Completed Home Visit Med Education: Medication list reconciled. Medication profile and in-home medication list updated with appropriate changes. Discrepanices noted during home visit: none Instructed patient on dosing, purpose, and side effects. Medication education completed today on all medication(s). Patient/caregiver is able to teach back 100% of instruction. Falls Problem:Assess and Instruct Home Visit Goal:Home Care Plan Completed Clinician taught: patient 4-10 Patient IS at risk for falls (a score of 6 or greater is a predictor of future falls) and clinician instructed: proper footwear and assistive device usage Patient/caregiver was able to demonstrate 90% via teachback Safety Problem:Assess and Instruct Home Visit Goal:Home Care Plan Completed Assessed patient vulnerability and home safety risks: yes Equipment reviewed yes Patient at risk for harm or abuse no Family members involved in safety plan for Level 2 or 3 Plan for Next Visit Problem:Assess and Instruct Home Visit Goal:Home Care Plan Completed Follow up education for next visit: hep compliance including frequent elevation Skilled intervention at next visit: cont per protocol Home Exercise Program Problem:Home Exercise Program Goal:Home Exercise Program Completed Patient reports: hep compliance twice daily; elevating LE 2 times a day also Clinician taught: patient Clinician instructed on: fire captain marine educated pt on importance of increased elevation frequency d/t considerable swelling this date which is hindering ROM. 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 chair flex stretch and heel slides x10, ext prop 5'. QS, SAQ, SLR, LAQ x20 ea to improve mobility and strength. pt c/o significant tightness in knee during flex stretching and mod increased pain. fire captain marine educated pt on importance of pushing flex rom to avoid scar tissues adherence to allow pt to improve flex mobility. Patient/caregiver is able to teach back 90% of instruction. Instruct Mobility Problem:Mobility Goal:Mobility Completed Patient reports: amb every couple of hours Clinician taught: patient Clinician instructed on: pt amb this date c fww and sba x125'. pt amb c decresaed toe off and knee flex during amb d/t tightness in knee. fire captain marine provided demo of good toe off and allowing knee to bend during toe off to improve mobility and flex rom. pt c mod improvement p fire captain marine demo. Therapist provided cueing for proper TA from seated position, including reaching back for chair and feeling chair c back of legs to avoid falls. Cueing also provided for slow, eccentric control c return to sitting position. pt sba for sit to supine ta this date. fire captain marine assisted pt c placement of pillows for cp and elevation p tx to allow for relaxed position to allow pt to remain elevated for 1 hour to decrease inflammation Patient/caregiver is able to teach back 90% of instruction. 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 -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 Problems Problem Start Date Status Goals Interventions Wound Care and/or Skin Problems Disciplines: 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 01/28/2024 Active 1 goal linked to scheduled/documented intervention 1 goal intervention scheduled/documented in this visit Assess and Instruct Home Visit Disciplines: 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 01/28/2024 Active 2 goals linked to scheduled/documented interventions 4 goal interventions scheduled/documented in this visit Home Exercise Program Disciplines: 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 01/28/2024 Active 1 goal linked to scheduled/documented intervention 1 goal intervention scheduled/documented in this visit Mobility Disciplines: 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 01/28/2024 Active 1 goal linked to scheduled/documented intervention 1 goal intervention scheduled/documented in this visit Goals Goal Associated Problem Outcome Goal Met? Visit Notes Wound/Incision Wound Care and/or Skin Problems No Medications Assess and Instruct Home Visit No Home Care Plan Assess and Instruct Home Visit No Home Exercise Program Home Exercise Program No Mobility Mobility No Interventions Intervention Associated Problem/Goal Status Variance Visit Notes Wound/Incision Monitoring Problem:Wound Care and/or Skin Problems Goal:Wound/Incision Completed Educated patient on hand hygiene and infection control techniques, signs/symptoms of infection and when to call or report concerns to home health or provider. patient able to verbalize teach back of hand hygiene, signs/symptoms of infection and when to call or report concerns to home health or provider. Instruct Medication Management Problem:Assess and Instruct Home Visit Goal:Medications Completed Home Visit Med Education: Medication list reconciled. Medication profile and in-home medication list updated with appropriate changes. Discrepanices noted during home visit: none Instructed patient on dosing, purpose, and side effects. Medication education completed today on all medication(s). Patient/caregiver is able to teach back 100% of instruction. Falls Problem:Assess and Instruct Home Visit Goal:Home Care Plan Completed Clinician taught: patient 4-10 Patient IS at risk for falls (a score of 6 or greater is a predictor of future falls) and clinician instructed: proper footwear and assistive device usage Patient/caregiver was able to demonstrate 90% via teachback Safety Problem:Assess and Instruct Home Visit Goal:Home Care Plan Completed Assessed patient vulnerability and home safety risks: yes Equipment reviewed yes Patient at risk for harm or abuse no Family members involved in safety plan for Level 2 or 3 Plan for Next Visit Problem:Assess and Instruct Home Visit Goal:Home Care Plan Completed Follow up education for next visit: safety precuations Skilled intervention at next visit: cont per poc Home Exercise Program Problem:Home Exercise Program Goal:Home Exercise Program Completed Patient reports: hep compliance twice daily Clinician taught: patient Clinician instructed on: chair flex stretch and heel slides x10, ext prop 5'. QS, SAQ, SLR, LAQ x20 ea to improve LE strnegth and moiblity. pt continues to have c/o pain in quad tendon insertion during flex stretching. fire captain marine provided mod assist c flex stretching to improve mobility. fire captain marine provided education on importance of flex stretching to increase mobility and qol. pt doing excellent re: quad strength. good quad contraction during qs and no quad lag during SLR Patient/caregiver is able to teach back 95% of instruction. Instruct Mobility Problem:Mobility Goal:Mobility Completed Patient reports: working on heel to toe gait pattern Clinician taught: patient Clinician instructed on: pt amb 175' today c fww and sba. fire captain marine provided demo and vc for increased step length on L LE to improve toe off and knee flex on R. good correction by pt p flex strethcing this date. Therapist provided cueing for proper TA from seated position, including reaching back for chair and feeling chair c back of legs to avoid falls. Cueing also provided for slow, eccentric control c return to sitting position. Therapist provided verbal and tactile cueing for proper posture to improve ability to maintain good spinal alignment during ADL's. Patient/caregiver is able to teach back 95% of instruction. documented in this encounter [facility] home Plan of care note* Visit Details Visit Type -SN HH Routine Vi sit Discipline -[facility] Problems Problem Start Date Status Goals Interventions Wound Care and/or Skin Problems Disciplines: [facility] 01/27/2024 Active 1 goal linked to scheduled/documented intervention 1 goal intervention scheduled/documented in this visit Assess and Instruct Home Visit Disciplines: [facility] 01/27/2024 Active 1 goal linked to scheduled/documented intervention 4 goal interventions scheduled/documented in this visit Medication Management Disciplines: [facility] 01/27/2024 Active 1 goal linked to scheduled/documented intervention 1 goal intervention scheduled/documented in this visit Pain Management Disciplines: [facility] 01/27/2024 Active 1 goal linked to scheduled/documented intervention 1 goal intervention scheduled/documented in this visit Goals Goal Associated Problem Outcome Goal Met? Visit Notes Wound/Incision Wound Care and/or Skin Problems No Home Care Plan Assess and Instruct Home Visit No Medications Medication Management No Pain Pain Management No Interventions Intervention Associated Problem/Goal Status Variance Visit Notes Wound/Incision Care Problem:Wound Care and/or Skin Problems Goal:Wound/Incision Completed Instruct patient/caregiver in incision site care.To maintain dressing in place with jackelyn.Keep mepiplex dressing in place until follow up Appointment with Dr Pepe. May shower with dressing on. Keep incision clean and dry, Monitor for signs of infection such as fever, chills, redness, abnormal pain or swelling, pus, foul odor. Apply ice pack three times a day for an hour each time. Elevate your leg to reduce swelling. Falls Problem:Assess and Instruct Home Visit Goal:Home Care Plan Completed Clinician taught: patient 4-10 Patient IS at risk for falls (a score of 6 or greater is a predictor of future falls) and clinician instructed: proper footwear, improved lighting, remove clutter and throw rugs, handrails/grab bar placement, assistive device usage, keep frequently used items in reach and emergency response system and/or keep phone on you Patient/caregiver was able to demonstrate 90% via teachback Safety Problem:Assess and Instruct Home Visit Goal:Home Care Plan Completed Assessed patient vulnerability and home safety risks: environmental Equipment reviewed walker Patient at risk for falls and infection Family members involved in safety plan for Level 2 or 3 n/a Discharge Planning Problem:Assess and Instruct Home Visit Goal:Home Care Plan Completed Home Visit DC Planning: Spoke with patient about DC planning. DC will occur when: patient/caregiver is able to demonstrate safe ambulation, understanding of medications, wound healing, remain free of infection, wound care, pain and edema mgmt Anticipate DC: Early Patient and/or caregiver response to discharge planning education: verbalized understanding of care plan goals Plan for Next Visit Problem:Assess and Instruct Home Visit Goal:Home Care Plan Completed Follow up education for next visit: safe ambulation, medication purpose and side effects, S&S to report, wound care, pain and edema mgmt Skilled intervention at next visit: assessing compliance and medication teaching, for disease mgmt assessment and teaching, including diet, activity, S/S to report to physician, equipment management, wound care Instruct Medication Management Problem:Medication Management Goal:Medications Completed Home Visit Med Education: Medication list reconciled. Medication profile and in-home medication list updated with appropriate changes. Discrepanices noted during home visit: none Instructed patient on dosing, purpose, and side effects. Medication education completed today on routine, new, pain medication(s). Patient/caregiver is able to teach back 90% of instruction. 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 Problems Problem Start Date Status Goals Interventions Wound Care and/or Skin Problems Disciplines: 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 01/28/2024 Active 1 goal linked to scheduled/documented intervention 1 goal intervention scheduled/documented in this visit Assess and Instruct Home Visit Disciplines: 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 01/28/2024 Active 2 goals linked to scheduled/documented interventions 4 goal interventions scheduled/documented in this visit Home Exercise Program Disciplines: 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 01/28/2024 Active 1 goal linked to scheduled/documented intervention 1 goal intervention scheduled/documented in this visit Mobility Disciplines: 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 01/28/2024 Active 1 goal linked to scheduled/documented intervention 1 goal intervention scheduled/documented in this visit Goals Goal Associated Problem Outcome Goal Met? Visit Notes Wound/Incision Wound Care and/or Skin Problems No Medications Assess and Instruct Home Visit No Home Care Plan Assess and Instruct Home Visit No Home Exercise Program Home Exercise Program No Mobility Mobility No Interventions Intervention Associated Problem/Goal Status Variance Visit Notes Wound/Incision Monitoring Problem:Wound Care and/or Skin Problems Goal:Wound/Incision Completed Educated patient on hand hygiene and infection control techniques, signs/symptoms of infection and when to call or report concerns to home health or provider. patient able to verbalize teach back of hand hygiene, signs/symptoms of infection and when to call or report concerns to home health or provider. Instruct Medication Management Problem:Assess and Instruct Home Visit Goal:Medications Completed Home Visit Med Education: Medication list reconciled. Medication profile and in-home medication list updated with appropriate changes. Discrepanices noted during home visit: none Instructed patient on dosing, purpose, and side effects. Medication education completed today on all medication(s). Patient/caregiver is able to teach back 95% of instruction. Falls Problem:Assess and Instruct Home Visit Goal:Home Care Plan Completed Clinician taught: patient 4-10 Patient IS at risk for falls (a score of 6 or greater is a predictor of future falls) and clinician instructed: proper footwear and assistive device usage Patient/caregiver was able to demonstrate 90% via teachback Safety Problem:Assess and Instruct Home Visit Goal:Home Care Plan Completed Assessed patient vulnerability and home safety risks: yes Equipment reviewed yes Patient at risk for harm or abuse no Family members involved in safety plan for Level 2 or 3 Plan for Next Visit Problem:Assess and Instruct Home Visit Goal:Home Care Plan Completed Follow up education for next visit: hep compliance Skilled intervention at next visit: cont per poc Home Exercise Program Problem:Home Exercise Program Goal:Home Exercise Program Completed Patient reports: hep compliance; has been working hard at stretching. Clinician taught: patient Clinician instructed on: chair flex stretch and heel slides x10, ext prop 5'. QS, SAQ, SLR, LAQ x20 ea to improve strength and mobility to allow pt to complete adls c decreased restrictions. flex rom continues to improve but is very tight and painful still. firm end feel at end range. no issues c strengthening prgm now. good quad strnegth and no quad lag during SLR Patient/caregiver is able to teach back 95% of instruction. Instruct Mobility Problem:Mobility Goal:Mobility Completed Patient reports: walking more s issues Clinician taught: patient Clinician instructed on: pt amb c improved heel to toe gait pattern c decresaed vc needed. fire captain marine instructed pt to continue c frequent ambulation for strength and moiblity. Therapist provided cueing for proper TA from seated position, including reaching back for chair and feeling chair c back of legs to avoid falls. Cueing also provided for slow, eccentric control c return to sitting position. Therapist provided verbal and tactile cueing for proper posture to improve ability to maintain good spinal alignment during ADL's. Patient/caregiver is able to teach back 95% of instruction. 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 Discipline -[facility] Problems Problem Start Date Status Goals Interventions Wound Care and/or Skin Problems Disciplines: [facility] 01/27/2024 Active 1 goal linked to scheduled/documented intervention 1 goal intervention scheduled/documented in this visit Assess and Instruct Home Visit Disciplines: [facility] 01/27/2024 Active 1 goal linked to scheduled/documented intervention 4 goal interventions scheduled/documented in this visit Medication Management Disciplines: [facility] 01/27/2024 Active 1 goal linked to scheduled/documented intervention 1 goal intervention scheduled/documented in this visit Pain Management Disciplines: [facility] 01/27/2024 Active 1 goal linked to scheduled/documented intervention 1 goal intervention scheduled/documented in this visit Goals Goal Associated Problem Outcome Goal Met? Visit Notes Wound/Incision Wound Care and/or Skin Problems No Home Care Plan Assess and Instruct Home Visit No Medications Medication Management No Pain Pain Management No Interventions Intervention Associated Problem/Goal Status Variance Visit Notes Wound/Incision Care Problem:Wound Care and/or Skin Problems Goal:Wound/Incision Completed Wound is stable. Educated patient on hand hygiene and infection control techniques, signs/symptoms of infection and when to call or report concerns to home health or provider. patient able to verbalize teach back of hand hygiene, signs/symptoms of infection and when to call or report concerns to home health or provider. patient able to return demonstration of hand hygiene and infection control techniques. patient continuing to require wound education on hand hygiene and infection control techniques, signs/symptoms of infection and when to call or report concerns to home health or provider. Falls Problem:Assess and Instruct Home Visit Goal:Home Care Plan Completed Clinician taught: patient 4-10 Patient IS at risk for falls (a score of 6 or greater is a predictor of future falls) and clinician instructed: proper footwear, improved lighting, remove clutter and throw rugs, non-slip mats in tubs/showers, handrails/grab bar placement, assistive device usage, keep frequently used items in reach and emergency response system and/or keep phone on you Patient/caregiver was able to demonstrate 100% via teachback Safety Problem:Assess and Instruct Home Visit Goal:Home Care Plan Completed Assessed patient vulnerability and home safety risks: no concerns Equipment reviewed walker Patient at risk for harm or abuse no Family members involved in safety plan for Level 2 or 3 patient Discharge Planning Problem:Assess and Instruct Home Visit Goal:Home Care Plan Completed Home Visit DC Planning: Spoke with patient about DC planning. Assessed for unsteady gait/poor balance and dyspnea with exertion DC will occur when: goals are met Anticipate DC: On time Plan for Next Visit Problem:Assess and Instruct Home Visit Goal:Home Care Plan Completed Follow up education for next visit: 02/09/24 Skilled intervention at next visit: cp assess Instruct Medication Management Problem:Medication Management Goal:Medications Completed Home Visit Med Education: Medication list reconciled. Medication profile and in-home medication list updated with appropriate changes. Discrepanices noted during home visit: none Instructed patient on dosing, purpose, and side effects. Medication education completed today on flexeril medication(s). Patient/caregiver is able to teach back 100% of instruction. 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 Problems Problem Start Date Status Goals Interventions Wound Care and/or Skin Problems Disciplines: 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 01/28/2024 Active 1 goal linked to scheduled/documented intervention 1 goal intervention scheduled/documented in this visit Assess and Instruct Home Visit Disciplines: 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 01/28/2024 Active 2 goals linked to scheduled/documented interventions 4 goal interventions scheduled/documented in this visit Home Exercise Program Disciplines: 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 01/28/2024 Active 1 goal linked to scheduled/documented intervention 1 goal intervention scheduled/documented in this visit Mobility Disciplines: 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 01/28/2024 Active 1 goal linked to scheduled/documented intervention 1 goal intervention scheduled/documented in this visit Goals Goal Associated Problem Outcome Goal Met? Visit Notes Wound/Incision Wound Care and/or Skin Problems No Medications Assess and Instruct Home Visit No Home Care Plan Assess and Instruct Home Visit No Home Exercise Program Home Exercise Program No Mobility Mobility No Interventions Intervention Associated Problem/Goal Status Variance Visit Notes Wound/Incision Monitoring Problem:Wound Care and/or Skin Problems Goal:Wound/Incision Completed Educated patient on hand hygiene and infection control techniques, signs/symptoms of infection and when to call or report concerns to home health or provider. patient able to verbalize teach back of hand hygiene, signs/symptoms of infection and when to call or report concerns to home health or provider. Instruct Medication Management Problem:Assess and Instruct Home Visit Goal:Medications Completed Home Visit Med Education: Medication list reconciled. Medication profile and in-home medication list updated with appropriate changes. Discrepanices noted during home visit: none Instructed patient on dosing, purpose, and side effects. Medication education completed today on all medication(s). Patient/caregiver is able to teach back 100% of instruction. Falls Problem:Assess and Instruct Home Visit Goal:Home Care Plan Completed Clinician taught: patient 4-10 Patient IS at risk for falls (a score of 6 or greater is a predictor of future falls) and clinician instructed: proper footwear and assistive device usage Patient/caregiver was able to demonstrate 95% via teachback Safety Problem:Assess and Instruct Home Visit Goal:Home Care Plan Completed Assessed patient vulnerability and home safety risks: yes Equipment reviewed yes Patient at risk for harm or abuse no Family members involved in safety plan for Level 2 or 3 Plan for Next Visit Problem:Assess and Instruct Home Visit Goal:Home Care Plan Completed Follow up education for next visit: hep compliance Skilled intervention at next visit: cont c emphasis on flex rom Home Exercise Program Problem:Home Exercise Program Goal:Home Exercise Program Completed Patient reports: hep compliance twice daily Clinician taught: patient Clinician instructed on: chair flex stretch and heel slides x10, ext prop 5'. QS, SAQ, SLR, LAQ x20 ea to improve flex and strength. pt continues to do well c strengthening prgm s adverse effects. flex continues to be behind schedule slightly but has shown good steady progress. very tight, firm end feel c fire captain marine assisted heel slides this date Patient/caregiver is able to teach back 95% of instruction. Instruct Mobility Problem:Mobility Goal:Mobility Completed Patient reports: walking more but does report increased pain this date d/t decerase pain med freqency. Clinician taught: patient Clinician instructed on: fire captain marine educated pt on not weaning off pain meds too soon to allow pt to tolerate rehab better. pt amb c fww and sba this date c mod limp but continues to demo good heel to toe gait pattern. incrased limp is result of increased pain from pain med weaning. pt is mod I c all ta now s issues. plan to work on exit/entry of home to garage next visit Patient/caregiver is able to teach back 95% of instruction. [facility] Visit Details Visit Type -SN HH OASIS Star t of Care Discipline -[facility] Problems Problem Start Date Status Goals Interventions Wound Care and/or Skin Problems Disciplines: [facility] 01/27/2024 Active 1 goal linked to scheduled/documented intervention 1 goal intervention scheduled/documented in this visit Assess and Instruct Home Visit Disciplines: [facility] 01/27/2024 Active 1 goal linked to scheduled/documented intervention 4 goal interventions scheduled/documented in this visit Medication Management Disciplines: [facility] 01/27/2024 Active 1 goal linked to scheduled/documented intervention 1 goal intervention scheduled/documented in this visit Pain Management Disciplines: [facility] 01/27/2024 Active 1 goal linked to scheduled/documented intervention 1 goal intervention scheduled/documented in this visit Goals Goal Associated Problem Outcome Goal Met? Visit Notes Wound/Incision Wound Care and/or Skin Problems No Home Care Plan Assess and Instruct Home Visit No Medications Medication Management No Pain Pain Management No Interventions Intervention Associated Problem/Goal Status Variance Visit Notes Wound/Incision Care Problem:Wound Care and/or Skin Problems Goal:Wound/Incision Completed Instruct patient/caregiver in incision site care.To maintain dressing in place with jackelyn.Keep mepiplex dressing in place until follow up Appointment with Dr Pepe. May shower with dressing on. Keep incision clean and dry, Monitor for signs of infection such as fever, chills, redness, abnormal pain or swelling, pus, foul odor. Apply ice pack three times a day for an hour each time. Elevate your leg to reduce swelling. Falls Problem:Assess and Instruct Home Visit Goal:Home Care Plan Completed Clinician taught: patient 4-10 Patient IS at risk for falls (a score of 6 or greater is a predictor of future falls) and clinician instructed: proper footwear, improved lighting, remove clutter and throw rugs, handrails/grab bar placement, assistive device usage, keep frequently used items in reach and emergency response system and/or keep phone on you Patient/caregiver was able to demonstrate 75% via teachback Safety Problem:Assess and Instruct Home Visit Goal:Home Care Plan Completed Assessed patient vulnerability and home safety risks: environmental Equipment reviewed walker Patient at risk for falls and infection Family members involved in safety plan for Level 2 or 3 n/a Discharge Planning Problem:Assess and Instruct Home Visit Goal:Home Care Plan Completed Home Visit DC Planning: Spoke with patient about DC planning. DC will occur when: patient/caregiver is able to demonstrate safe ambulation, understanding of medications, wound healing, remain free of infection, wound care, pain and edema mgmt Anticipate DC: Early Patient and/or caregiver response to discharge planning education: verbalized understanding of care plan goals Plan for Next Visit Problem:Assess and Instruct Home Visit Goal:Home Care Plan Completed Follow up education for next visit: safe ambulation, medication purpose and side effects, S&S to report, pain and edema mgmt, wound care Skilled intervention at next visit: assessing compliance and medication teaching, for disease mgmt assessment and teaching, including diet, activity, S/S to report to physician, equipment management, wound care Instruct Medication Management Problem:Medication Management Goal:Medications Completed Home Visit Med Education: Medication list reconciled. Medication profile and in-home medication list updated with appropriate changes. Discrepanices noted during home visit: none Instructed patient on dosing, purpose, and side effects. Medication education completed today on routine, new, pain and antibiotic medication(s). Patient/caregiver is able to teach back 75% of instruction. 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 Discipline -[facility] Problems Problem Start Date Status Goals Interventions Wound Care and/or Skin Problems Disciplines: [facility] 01/27/2024 Active 1 goal linked to scheduled/documented intervention 1 goal intervention scheduled/documented in this visit Assess and Instruct Home Visit Disciplines: [facility] 01/27/2024 Active 1 goal linked to scheduled/documented intervention 4 goal interventions scheduled/documented in this visit Medication Management Disciplines: [facility] 01/27/2024 Active 1 goal linked to scheduled/documented intervention 1 goal intervention scheduled/documented in this visit Pain Management Disciplines: [facility] 01/27/2024 Active 1 goal linked to scheduled/documented intervention 1 goal intervention scheduled/documented in this visit Goals Goal Associated Problem Outcome Goal Met? Visit Notes Wound/Incision Wound Care and/or Skin Problems No Home Care Plan Assess and Instruct Home Visit No Medications Medication Management No Pain Pain Management No Interventions Intervention Associated Problem/Goal Status Variance Visit Notes Wound/Incision Care Problem:Wound Care and/or Skin Problems Goal:Wound/Incision Completed Wound is stable. Educated patient on hand hygiene and infection control techniques, signs/symptoms of infection and when to call or report concerns to home health or provider. patient able to verbalize teach back of hand hygiene, signs/symptoms of infection and when to call or report concerns to home health or provider. patient able to return demonstration of hand hygiene and infection control techniques. patient continuing to require wound education on hand hygiene and infection control techniques, signs/symptoms of infection and when to call or report concerns to home health or provider. Falls Problem:Assess and Instruct Home Visit Goal:Home Care Plan Completed Clinician taught: patient 4-10 Patient IS at risk for falls (a score of 6 or greater is a predictor of future falls) and clinician instructed: proper footwear, improved lighting, remove clutter and throw rugs, non-slip mats in tubs/showers, handrails/grab bar placement, assistive device usage, keep frequently used items in reach and emergency response system and/or keep phone on you Patient/caregiver was able to demonstrate 100% via teachback Safety Problem:Assess and Instruct Home Visit Goal:Home Care Plan Completed Assessed patient vulnerability and home safety risks: no concerns Equipment reviewed walker Patient at risk for harm or abuse no Family members involved in safety plan for Level 2 or 3 patient Discharge Planning Problem:Assess and Instruct Home Visit Goal:Home Care Plan Completed Home Visit DC Planning: Spoke with patient about DC planning. Assessed for unsteady gait/poor balance and dyspnea with exertion DC will occur when: goals are met Anticipate DC: On time Plan for Next Visit Problem:Assess and Instruct Home Visit Goal:Home Care Plan Completed Follow up education for next visit: 02/11/24 Skilled intervention at next visit: discharge Instruct Medication Management Problem:Medication Management Goal:Medications Completed Home Visit Med Education: Medication list reconciled. Medication profile and in-home medication list updated with appropriate changes. Discrepanices noted during home visit: none Instructed patient on dosing, purpose, and side effects. Medication education completed today on oxycodone medication(s). Patient/caregiver is able to teach back 100% of instruction. 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 -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 Problems Problem Start Date Status Goals Interventions Wound Care and/or Skin Problems Disciplines: 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 01/28/2024 Active 1 goal linked to scheduled/documented intervention 1 goal intervention scheduled/documented in this visit Assess and Instruct Home Visit Disciplines: 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 01/28/2024 Active 2 goals linked to scheduled/documented interventions 4 goal interventions scheduled/documented in this visit Home Exercise Program Disciplines: 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 01/28/2024 Active 1 goal linked to scheduled/documented intervention 1 goal intervention scheduled/documented in this visit Mobility Disciplines: 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 01/28/2024 Active 1 goal linked to scheduled/documented intervention 1 goal intervention scheduled/documented in this visit Goals Goal Associated Problem Outcome Goal Met? Visit Notes Wound/Incision Wound Care and/or Skin Problems No Medications Assess and Instruct Home Visit No Home Care Plan Assess and Instruct Home Visit No Home Exercise Program Home Exercise Program No Mobility Mobility No Interventions Intervention Associated Problem/Goal Status Variance Visit Notes Wound/Incision Monitoring Problem:Wound Care and/or Skin Problems Goal:Wound/Incision Completed Educated patient on hand hygiene and infection control techniques, signs/symptoms of infection and when to call or report concerns to home health or provider. patient able to verbalize teach back of hand hygiene, signs/symptoms of infection and when to call or report concerns to home health or provider. Instruct Medication Management Problem:Assess and Instruct Home Visit Goal:Medications Completed Home Visit Med Education: Medication list reconciled. Medication profile and in-home medication list updated with appropriate changes. Discrepanices noted during home visit: none Instructed patient on dosing, purpose, and side effects. Medication education completed today on all medication(s). Patient/caregiver is able to teach back 100% of instruction. Falls Problem:Assess and Instruct Home Visit Goal:Home Care Plan Completed Clinician taught: patient 4-10 Patient IS at risk for falls (a score of 6 or greater is a predictor of future falls) and clinician instructed: proper footwear and assistive device usage Patient/caregiver was able to demonstrate 90% via teachback Safety Problem:Assess and Instruct Home Visit Goal:Home Care Plan Completed Assessed patient vulnerability and home safety risks: yes Equipment reviewed yes Patient at risk for harm or abuse no Family members involved in safety plan for Level 2 or 3 Plan for Next Visit Problem:Assess and Instruct Home Visit Goal:Home Care Plan Completed Follow up education for next visit: safety precuations Skilled intervention at next visit: cont per poc Home Exercise Program Problem:Home Exercise Program Goal:Home Exercise Program Completed Patient reports: hep compliance twice daily Clinician taught: patient Clinician instructed on: chair flex stretch and heel slides x10, ext prop 5'. QS, SAQ, SLR, LAQ x20 ea to improve LE strnegth and moiblity. pt continues to have c/o pain in quad tendon insertion during flex stretching. fire captain marine provided mod assist c flex stretching to improve mobility. fire captain marine provided education on importance of flex stretching to increase mobility and qol. pt doing excellent re: quad strength. good quad contraction during qs and no quad lag during SLR Patient/caregiver is able to teach back 95% of instruction. Instruct Mobility Problem:Mobility Goal:Mobility Completed Patient reports: working on heel to toe gait pattern Clinician taught: patient Clinician instructed on: pt amb 175' today c fww and sba. fire captain [employer] provided demo and vc for increased step length on L LE to improve toe off and knee flex on R. good correction by pt p flex strethcing this date. Therapist provided cueing for proper TA from seated position, including reaching back for chair and feeling chair c back of legs to avoid falls. Cueing also provided for slow, eccentric control c return to sitting position. Therapist provided verbal and tactile cueing for proper posture to improve ability to maintain good spinal alignment during ADL's. Patient/caregiver is able to teach back 95% of instruction. [facility] Visit Details 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 -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 Problems Problem Start Date Status Goals Interventions Wound Care and/or Skin Problems Disciplines: 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 01/28/2024 Active 1 goal linked to scheduled/documented intervention 1 goal intervention scheduled/documented in this visit Assess and Instruct Home Visit Disciplines: 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 01/28/2024 Active 2 goals linked to scheduled/documented interventions 4 goal interventions scheduled/documented in this visit Home Exercise Program Disciplines: 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 01/28/2024 Active 1 goal linked to scheduled/documented intervention 1 goal intervention scheduled/documented in this visit Mobility Disciplines: 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 01/28/2024 Active 1 goal linked to scheduled/documented intervention 1 goal intervention scheduled/documented in this visit Goals Goal Associated Problem Outcome Goal Met? Visit Notes Wound/Incision Wound Care and/or Skin Problems No Medications Assess and Instruct Home Visit No Home Care Plan Assess and Instruct Home Visit No Home Exercise Program Home Exercise Program No Mobility Mobility No Interventions Intervention Associated Problem/Goal Status Variance Visit Notes Wound/Incision Monitoring Problem:Wound Care and/or Skin Problems Goal:Wound/Incision Completed Educated patient on hand hygiene and infection control techniques, signs/symptoms of infection and when to call or report concerns to home health or provider. patient able to verbalize teach back of hand hygiene, signs/symptoms of infection and when to call or report concerns to home health or provider. Instruct Medication Management Problem:Assess and Instruct Home Visit Goal:Medications Completed Home Visit Med Education: Medication list reconciled. Medication profile and in-home medication list updated with appropriate changes. Discrepanices noted during home visit: none Instructed patient on dosing, purpose, and side effects. Medication education completed today on all medication(s). Patient/caregiver is able to teach back 95% of instruction. Falls Problem:Assess and Instruct Home Visit Goal:Home Care Plan Completed Clinician taught: patient 4-10 Patient IS at risk for falls (a score of 6 or greater is a predictor of future falls) and clinician instructed: proper footwear and assistive device usage Patient/caregiver was able to demonstrate 90% via teachback Safety Problem:Assess and Instruct Home Visit Goal:Home Care Plan Completed Assessed patient vulnerability and home safety risks: yes Equipment reviewed yes Patient at risk for harm or abuse no Family members involved in safety plan for Level 2 or 3 Plan for Next Visit Problem:Assess and Instruct Home Visit Goal:Home Care Plan Completed Follow up education for next visit: hep compliance Skilled intervention at next visit: cont per poc Home Exercise Program Problem:Home Exercise Program Goal:Home Exercise Program Completed Patient reports: hep compliance; has been working hard at stretching. Clinician taught: patient Clinician instructed on: chair flex stretch and heel slides x10, ext prop 5'. QS, SAQ, SLR, LAQ x20 ea to improve strength and mobility to allow pt to complete adls c decreased restrictions. flex rom continues to improve but is very tight and painful still. firm end feel at end range. no issues c strengthening prgm now. good quad strnegth and no quad lag during SLR Patient/caregiver is able to teach back 95% of instruction. Instruct Mobility Problem:Mobility Goal:Mobility Completed Patient reports: walking more s issues Clinician taught: patient Clinician instructed on: pt amb c improved heel to toe gait pattern c decresaed vc needed. [employer] captain [employer] instructed pt to continue c frequent ambulation for strength and moiblity. Therapist provided cueing for proper TA from seated position, including reaching back for chair and feeling chair c back of legs to avoid falls. Cueing also provided for slow, eccentric control c return to sitting position. Therapist provided verbal and tactile cueing for proper posture to improve ability to maintain good spinal alignment during ADL's. Patient/caregiver is able to teach back 95% of instruction. [facility] Visit Details 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 -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 Problems Problem Start Date Status Goals Interventions Wound Care and/or Skin Problems Disciplines: 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 01/28/2024 Active 1 goal linked to scheduled/documented intervention 1 goal intervention scheduled/documented in this visit Assess and Instruct Home Visit Disciplines: 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 01/28/2024 Active 2 goals linked to scheduled/documented interventions 4 goal interventions scheduled/documented in this visit Home Exercise Program Disciplines: 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 01/28/2024 Active 1 goal linked to scheduled/documented intervention 1 goal intervention scheduled/documented in this visit Mobility Disciplines: 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 01/28/2024 Active 1 goal linked to scheduled/documented intervention 1 goal intervention scheduled/documented in this visit Goals Goal Associated Problem Outcome Goal Met? Visit Notes Wound/Incision Wound Care and/or Skin Problems No Medications Assess and Instruct Home Visit No Home Care Plan Assess and Instruct Home Visit No Home Exercise Program Home Exercise Program No Mobility Mobility No Interventions Intervention Associated Problem/Goal Status Variance Visit Notes Wound/Incision Monitoring Problem:Wound Care and/or Skin Problems Goal:Wound/Incision Completed Educated patient on hand hygiene and infection control techniques, signs/symptoms of infection and when to call or report concerns to home health or provider. patient able to verbalize teach back of hand hygiene, signs/symptoms of infection and when to call or report concerns to home health or provider. Instruct Medication Management Problem:Assess and Instruct Home Visit Goal:Medications Completed Home Visit Med Education: Medication list reconciled. Medication profile and in-home medication list updated with appropriate changes. Discrepanices noted during home visit: none Instructed patient on dosing, purpose, and side effects. Medication education completed today on all medication(s). Patient/caregiver is able to teach back 100% of instruction. Falls Problem:Assess and Instruct Home Visit Goal:Home Care Plan Completed Clinician taught: patient 4-10 Patient IS at risk for falls (a score of 6 or greater is a predictor of future falls) and clinician instructed: proper footwear and assistive device usage Patient/caregiver was able to demonstrate 90% via teachback Safety Problem:Assess and Instruct Home Visit Goal:Home Care Plan Completed Assessed patient vulnerability and home safety risks: yes Equipment reviewed yes Patient at risk for harm or abuse no Family members involved in safety plan for Level 2 or 3 Plan for Next Visit Problem:Assess and Instruct Home Visit Goal:Home Care Plan Completed Follow up education for next visit: hep compliance including frequent elevation Skilled intervention at next visit: cont per protocol Home Exercise Program Problem:Home Exercise Program Goal:Home Exercise Program Completed Patient reports: hep compliance twice daily; elevating LE 2 times a day also Clinician taught: patient Clinician instructed on: fire captain marine educated pt on importance of increased elevation frequency d/t considerable swelling this date which is hindering ROM. 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 chair flex stretch and heel slides x10, ext prop 5'. QS, SAQ, SLR, LAQ x20 ea to improve mobility and strength. pt c/o significant tightness in knee during flex stretching and mod increased pain. fire captain marine educated pt on importance of pushing flex rom to avoid scar tissues adherence to allow pt to improve flex mobility. Patient/caregiver is able to teach back 90% of instruction. Instruct Mobility Problem:Mobility Goal:Mobility Completed Patient reports: amb every couple of hours Clinician taught: patient Clinician instructed on: pt amb this date c fww and sba x125'. pt amb c decresaed toe off and knee flex during amb d/t tightness in knee. fire captain marine provided demo of good toe off and allowing knee to bend during toe off to improve mobility and flex rom. pt c mod improvement p fire captain marine demo. Therapist provided cueing for proper TA from seated position, including reaching back for chair and feeling chair c back of legs to avoid falls. Cueing also provided for slow, eccentric control c return to sitting position. pt sba for sit to supine ta this date. fire captain marine assisted pt c placement of pillows for cp and elevation p tx to allow for relaxed position to allow pt to remain elevated for 1 hour to decrease inflammation Patient/caregiver is able to teach back 90% of instruction. [facility] Visit Details 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 -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 Problems Problem Start Date Status Goals Interventions Wound Care and/or Skin Problems Disciplines: 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 01/28/2024 Active 1 goal linked to scheduled/documented intervention 1 goal intervention scheduled/documented in this visit Assess and Instruct Home Visit Disciplines: 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 01/28/2024 Active 2 goals linked to scheduled/documented interventions 4 goal interventions scheduled/documented in this visit Home Exercise Program Disciplines: 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 01/28/2024 Active 1 goal linked to scheduled/documented intervention 1 goal intervention scheduled/documented in this visit Mobility Disciplines: 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 01/28/2024 Active 1 goal linked to scheduled/documented intervention 1 goal intervention scheduled/documented in this visit Goals Goal Associated Problem Outcome Goal Met? Visit Notes Wound/Incision Wound Care and/or Skin Problems No Medications Assess and Instruct Home Visit No Home Care Plan Assess and Instruct Home Visit No Home Exercise Program Home Exercise Program No Mobility Mobility No Interventions Intervention Associated Problem/Goal Status Variance Visit Notes Wound/Incision Monitoring Problem:Wound Care and/or Skin Problems Goal:Wound/Incision Completed Educated patient on hand hygiene and infection control techniques. patient able to verbalize teach back of hand hygiene, signs/symptoms of infection and when to call or report concerns to home health or provider. Instruct Medication Management Problem:Assess and Instruct Home Visit Goal:Medications Completed Home Visit Med Education: Medication list reconciled. Medication profile and in-home medication list updated with appropriate changes. Discrepanices noted during home visit: none Instructed patient on dosing, purpose, and side effects. Medication education completed today on all medication(s). Patient/caregiver is able to teach back 100% of instruction. Falls Problem:Assess and Instruct Home Visit Goal:Home Care Plan Completed Clinician taught: patient 4-10 Patient IS at risk for falls (a score of 6 or greater is a predictor of future falls) and clinician instructed: proper footwear and assistive device usage Patient/caregiver was able to demonstrate 100% via teachback Safety Problem:Assess and Instruct Home Visit Goal:Home Care Plan Completed Assessed patient vulnerability and home safety risks: yes Equipment reviewed yes Patient at risk for harm or abuse no Family members involved in safety plan for Level 2 or 3 Plan for Next Visit Problem:Assess and Instruct Home Visit Goal:Home Care Plan Completed Follow up education for next visit: safety precautions Skilled intervention at next visit: RA for DC to outpt PT at [facility] Home Exercise Program Problem:Home Exercise Program Goal:Home Exercise Program Completed Patient reports: hep compliance Clinician taught: patient Clinician instructed on: chair flex stretch and heel slides x10, ext prop 5'. QS, SAQ, SLR, LAQ x20 ea to improve LE strength and endurance to allow pt to complete adls s restrictions. pt doing exceptionally well c strength. no issues. flex continues to be behind but continues to slowly improve Patient/caregiver is able to teach back 95% of instruction. Instruct Mobility Problem:Mobility Goal:Mobility Completed Patient reports: walking well c fww Clinician taught: patient Clinician instructed on: pt amb c sc and sba today. fire captain marine provided vc and demo for proper 2 pt swing through gait pattern. good techinque exhibited by pt. pt is mod I c all transfers now s issues. pt exit/enter through garage door and navigated 3 steps c sc and step to pattern. good understanding of leading up and down steps c proper LE. Patient/caregiver is able to teach back 100% of instruction. [facility] Visit Details Visit Type - HH [place] t of Care Discipline -[facility] Problems Problem Start Date Status Goals Interventions Wound Care and/or Skin Problems Disciplines: [facility] 01/27/2024 Active 1 goal linked to scheduled/documented intervention 1 goal intervention scheduled/documented in this visit Assess and Instruct Home Visit Disciplines: [facility] 01/27/2024 Active 1 goal linked to scheduled/documented intervention 4 goal interventions scheduled/documented in this visit Medication Management Disciplines: [facility] 01/27/2024 Active 1 goal linked to scheduled/documented intervention 1 goal intervention scheduled/documented in this visit Pain Management Disciplines: [facility] 01/27/2024 Active 1 goal linked to scheduled/documented intervention 1 goal intervention scheduled/documented in this visit Goals Goal Associated Problem Outcome Goal Met? Visit Notes Wound/Incision Wound Care and/or Skin Problems No Home Care Plan Assess and Instruct Home Visit No Medications Medication Management No Pain Pain Management No Interventions Intervention Associated Problem/Goal Status Variance Visit Notes Wound/Incision Care Problem:Wound Care and/or Skin Problems Goal:Wound/Incision Completed Instruct patient/caregiver in incision site care.To maintain dressing in place with jackelyn.Keep mepiplex dressing in place until follow up Appointment with Dr Pepe. May shower with dressing on. Keep incision clean and dry, Monitor for signs of infection such as fever, chills, redness, abnormal pain or swelling, pus, foul odor. Apply ice pack three times a day for an hour each time. Elevate your leg to reduce swelling. Falls Problem:Assess and Instruct Home Visit Goal:Home Care Plan Completed Clinician taught: patient 4-10 Patient IS at risk for falls (a score of 6 or greater is a predictor of future falls) and clinician instructed: proper footwear, improved lighting, remove clutter and throw rugs, handrails/grab bar placement, assistive device usage, keep frequently used items in reach and emergency response system and/or keep phone on you Patient/caregiver was able to demonstrate 75% via teachback Safety Problem:Assess and Instruct Home Visit Goal:Home Care Plan Completed Assessed patient vulnerability and home safety risks: environmental Equipment reviewed walker Patient at risk for falls and infection Family members involved in safety plan for Level 2 or 3 n/a Discharge Planning Problem:Assess and Instruct Home Visit Goal:Home Care Plan Completed Home Visit DC Planning: Spoke with patient about DC planning. DC will occur when: patient/caregiver is able to demonstrate safe ambulation, understanding of medications, wound healing, remain free of infection, wound care, pain and edema mgmt Anticipate DC: Early Patient and/or caregiver response to discharge planning education: verbalized understanding of care plan goals Plan for Next Visit Problem:Assess and Instruct Home Visit Goal:Home Care Plan Completed Follow up education for next visit: safe ambulation, medication purpose and side effects, S&S to report, pain and edema mgmt, wound care Skilled intervention at next visit: assessing compliance and medication teaching, for disease mgmt assessment and teaching, including diet, activity, S/S to report to physician, equipment management, wound care Instruct Medication Management Problem:Medication Management Goal:Medications Completed Home Visit Med Education: Medication list reconciled. Medication profile and in-home medication list updated with appropriate changes. Discrepanices noted during home visit: none Instructed patient on dosing, purpose, and side effects. Medication education completed today on routine, new, pain and antibiotic medication(s). Patient/caregiver is able to teach back 75% of instruction. Assess Pain Characteristics and Current Pain Regimen and Instruct Methods of Pain Relief Problem:Pain Management Goal:Pain Completed [facility] Visit Details Visit Type -SN HH Non-OASIS/ Discipline DC Discipline -[facility] Problems Problem Start Date Status Goals Interventions Wound Care and/or Skin Problems Disciplines: [facility] 01/27/2024 Resolved on 02/11/2024 1 goal linked to scheduled/documented intervention 1 goal intervention scheduled/documented in this visit Assess and Instruct Home Visit Disciplines: [facility] 01/27/2024 Resolved on 02/11/2024 1 goal linked to scheduled/documented intervention 4 goal interventions scheduled/documented in this visit Medication Management Disciplines: [facility] 01/27/2024 Resolved on 02/11/2024 1 goal linked to scheduled/documented intervention 1 goal intervention scheduled/documented in this visit Pain Management Disciplines: [facility] 01/27/2024 Resolved on 02/11/2024 1 goal linked to scheduled/documented intervention 1 goal intervention scheduled/documented in this visit Goals Goal Associated Problem Outcome Goal Met? Visit Notes Wound/Incision Wound Care and/or Skin Problems No Home Care Plan Assess and Instruct Home Visit No Medications Medication Management No Pain Pain Management No Interventions Intervention Associated Problem/Goal Status Variance Visit Notes Wound/Incision Care Problem:Wound Care and/or Skin Problems Goal:Wound/Incision Scheduled Falls Problem:Assess and Instruct Home Visit Goal:Home Care Plan Scheduled Safety Problem:Assess and Instruct Home Visit Goal:Home Care Plan Scheduled Discharge Planning Problem:Assess and Instruct Home Visit Goal:Home Care Plan Scheduled Plan for Next Visit Problem:Assess and Instruct Home Visit Goal:Home Care Plan Scheduled Instruct Medication Management Problem:Medication Management Goal:Medications Scheduled Assess Pain Characteristics and Current Pain Regimen and Instruct Methods of Pain Relief Problem:Pain Management Goal:Pain Scheduled [facility] Visit Details 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 -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 Problems Problem Start Date Status Goals Interventions Wound Care and/or Skin Problems Disciplines: 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 01/28/2024 Active 1 goal linked to scheduled/documented intervention 1 goal intervention scheduled/documented in this visit Assess and Instruct Home Visit Disciplines: 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 01/28/2024 Active 2 goals linked to scheduled/documented interventions 4 goal interventions scheduled/documented in this visit Home Exercise Program Disciplines: 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 01/28/2024 Active 1 goal linked to scheduled/documented intervention 1 goal intervention scheduled/documented in this visit Mobility Disciplines: 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 01/28/2024 Active 1 goal linked to scheduled/documented intervention 1 goal intervention scheduled/documented in this visit Goals Goal Associated Problem Outcome Goal Met? Visit Notes Wound/Incision Wound Care and/or Skin Problems No Medications Assess and Instruct Home Visit No Home Care Plan Assess and Instruct Home Visit No Home Exercise Program Home Exercise Program No Mobility Mobility No Interventions Intervention Associated Problem/Goal Status Variance Visit Notes Wound/Incision Monitoring Problem:Wound Care and/or Skin Problems Goal:Wound/Incision Completed Educated patient on hand hygiene and infection control techniques. patient able to verbalize teach back of hand hygiene, signs/symptoms of infection and when to call or report concerns to home health or provider. Instruct Medication Management Problem:Assess and Instruct Home Visit Goal:Medications Completed Home Visit Med Education: Medication list reconciled. Medication profile and in-home medication list updated with appropriate changes. Discrepanices noted during home visit: none Instructed patient on dosing, purpose, and side effects. Medication education completed today on all medication(s). Patient/caregiver is able to teach back 100% of instruction. Falls Problem:Assess and Instruct Home Visit Goal:Home Care Plan Completed Clinician taught: patient 4-10 Patient IS at risk for falls (a score of 6 or greater is a predictor of future falls) and clinician instructed: proper footwear and assistive device usage Patient/caregiver was able to demonstrate 100% via teachback Safety Problem:Assess and Instruct Home Visit Goal:Home Care Plan Completed Assessed patient vulnerability and home safety risks: yes Equipment reviewed yes Patient at risk for harm or abuse no Family members involved in safety plan for Level 2 or 3 Plan for Next Visit Problem:Assess and Instruct Home Visit Goal:Home Care Plan Completed Follow up education for next visit: safety precautions Skilled intervention at next visit: RA for DC to outpt PT at [facility] Home Exercise Program Problem:Home Exercise Program Goal:Home Exercise Program Completed Patient reports: hep compliance Clinician taught: patient Clinician instructed on: chair flex stretch and heel slides x10, ext prop 5'. QS, SAQ, SLR, LAQ x20 ea to improve LE strength and endurance to allow pt to complete adls s restrictions. pt doing exceptionally well c strength. no issues. flex continues to be behind but continues to slowly improve Patient/caregiver is able to teach back 95% of instruction. Instruct Mobility Problem:Mobility Goal:Mobility Completed Patient reports: walking well c fww Clinician taught: patient Clinician instructed on: pt amb c sc and sba today. fire captain marine provided vc and demo for proper 2 pt swing through gait pattern. good techinque exhibited by pt. pt is mod I c all transfers now s issues. pt exit/enter through garage door and navigated 3 steps c sc and step to pattern. good understanding of leading up and down steps c proper LE. Patient/caregiver is able to teach back 100% of instruction. [facility] Visit Details Visit Type -PT OASIS [place] [facility] Discipline -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 Problems Problem Start Date Status Goals Interventions Wound Care and/or Skin Problems Disciplines: 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 01/28/2024 Resolved on 02/12/2024 1 goal linked to scheduled/documented intervention 1 goal intervention scheduled/documented in this visit Assess and Instruct Home Visit Disciplines: 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 01/28/2024 Resolved on 02/12/2024 2 goals linked to scheduled/documented interventions 4 goal interventions scheduled/documented in this visit Goals Goal Associated Problem Outcome Goal Met? Visit Notes Wound/Incision Wound Care and/or Skin Problems No Medications Assess and Instruct Home Visit No Home Care Plan Assess and Instruct Home Visit No Interventions Intervention Associated Problem/Goal Status Variance Visit Notes Wound/Incision Monitoring Problem:Wound Care and/or Skin Problems Goal:Wound/Incision Scheduled Instruct Medication Management Problem:Assess and Instruct Home Visit Goal:Medications Scheduled Falls Problem:Assess and Instruct Home Visit Goal:Home Care Plan Scheduled Safety Problem:Assess and Instruct Home Visit Goal:Home Care Plan Scheduled Plan for Next Visit Problem:Assess and Instruct Home Visit Goal:Home Care Plan Scheduled [facility] [place] [facility]. Reviewed care plan, medications, pain mgmt, ice and elevation, S&S to report, wound care and safety with ambulation. Patient/caregiver verbalized understanding and agreement. [facility] Actions Pt [facility] to [place] [facility]. Reviewed care plan, medications, pain mgmt, ice and elevation, S&S to report, wound care and safety with ambulation. Patient/caregiver verbalized understanding and agreement. [facility] Actions Homebound Status Criteria 1: Assistive Device(s): Walker Needs assistance of at least 1 to leave home Criteria 2: Patient confined to home due to limited ambulation related to pain/ROM deficits/weakness, unsteady gait/poor balance and poor endurance related to s/p TKA Type of Home: 1-story house/ trailer, number of outside stairs: 3, handrails, walk-in shower, equipment: FWW Discipline referral Discipline requested: 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 to include: gait training, transfer training, bed mobility training, therapeutic exercises, CP/endurance activities, establish home exercise program, teach impairment precautions, teach activity guidelines, assess/instruct in techniques to mitigate/alleviate pain and teach wound/skin/incision care as per discharge instructions Account Analyst Goals: Patient remains safe at home, Patient compliant with activity guidelines and Maximize mobility Rehab Potential: good for stated goals Discharge Plans: When goals are met. Narratives 68y/o female referred to HH therapy services s/p R TKA per Dr Pepe on 01/26/24. Pt reports she is tired from taking a shower this morning. PMHX: aortic valve stenosis, CAD, HTN, OA, s/p TAVR, HLD PLOF: Lives with spouse in a single story home with 3 ABRAN with single HR. Indep ADL/IADL. Indep household amb, used trekking poles for community amb on uneven surfaces. Driving. Retired. Currently amb with FWW. Difficulty with functional transfers. Able to shower and dress self with min A from spouse for R lower body. Current level/needs: therapeutic exercises for r knee strengthening/ROM, therapeutic activities, gait training, stair training, transfer training, balance re- education, and falls risk reduction. OWNS (DME): walk-in shower, raised toilet, grab bars, built-in shower seat, cane, FWW, trekking poles FALLS: 2 APPTS: 02/12/24 PRECAUTIONS: WBAT RLE, falls risk GOALS: better movement, be able to bend it more PT eval complete, PT 1x1, 3x2 Skilled interventions at eval included: Pt educated on icing 3-4x per day for 1 hour, elevation with surgical limb at or above the level of the heart, avoidance of placing any objects behind affected knee, need for mobilization every hour, straighten/bend knee every hour, performing HEP per protocol 2x per day. Pt educated on POC with pt agreeing/consenting, all questions answered. Pt provided with contact information for future questions or concerns. [facility] Actions Homebound Status Criteria 1: Assistive Device(s): Walker Needs assistance of at least 1 to leave home Criteria 2: Patient confined to home due to limited ambulation related to RTKR and unsteady gait/poor balance Type of Home: 1-story house/ trailer Narratives Pt to be D/C when all goals/ max potential has been met; as determined by P.T. [facility] Actions Homebound Status Criteria 1: Assistive Device(s): Walker Needs assistance of at least 1 to leave home Criteria 2: Patient confined to home due to limited ambulation related to RTKR and unsteady gait/poor balance Type of Home: 1-story house/ trailer Narratives Pt to be D/C when all goals/ max potential has been met; as determined by P.T. [facility] Actions Homebound Status Criteria 1: Assistive Device(s): Walker Needs assistance of at least 1 to leave home Criteria 2: Patient confined to home due to limited ambulation related to RTKR and unsteady gait/poor balance Type of Home: 1-story house/ trailer Narratives Pt to be D/C when all goals/ max potential has been met; as determined by P.T. [facility] Actions CP assessment meds reviewed education provided on s/sx of infection r/t wounds, diet education provided. educated patient on safety with ambulation. patient voiced understanding. report given to Narratives Homebound Status Criteria 1: Assistive Device(s): Walker Needs assistance of at least 1 to leave home Criteria 2: Patient confined to home due to unsteady gait/poor balance and dyspnea with exertion Type of Home: 2-story house [facility] Actions Homebound Status Criteria 1: Assistive Device(s): Walker Needs assistance of at least 1 to leave home Criteria 2: Patient confined to home due to limited ambulation related to RTKR and unsteady gait/poor balance Type of Home: 1-story house/ trailer Narratives Pt to be D/C when all goals/ max potential has been met; as determined by P.T. [facility] Actions [facility] to [place] [facility]. Reviewed care plan, medications, pain mgmt, ice and elevation, S&S to report, wound care and safety with ambulation. Patient/caregiver verbalized understanding and agreement. [facility] Actions CP assessment meds reviewed education provided on s/sx of infection r/t wounds, diet education provided. educated patient on safety with ambulation. patient voiced understanding. report given to CM appt Thursday with Dr Afshin WILSON signed for discharge 02/11/24 Narratives Homebound Status Criteria 1: Assistive Device(s): Walker Needs assistance of at least 1 to leave home Criteria 2: Patient confined to home due to unsteady gait/poor balance and dyspnea with exertion Type of Home: 2-story house [facility] Actions Homebound Status Criteria 1: Assistive Device(s): Walker Needs assistance of at least 1 to leave home Criteria 2: Patient confined to home due to limited ambulation related to RTKR and unsteady gait/poor balance Type of Home: 1-story house/ trailer Narratives Pt to be D/C when all goals/ max potential has been met; as determined by P.T. [facility] Actions Homebound Status Criteria 1: Assistive Device(s): Walker Needs assistance of at least 1 to leave home Criteria 2: Patient confined to home due to limited ambulation related to RTKR and unsteady gait/poor balance Type of Home: 1-story house/ trailer Narratives Pt to be D/C when all goals/ max potential has been met; as determined by P.T. documented in this encounter [facility] home Progress [facility]* Actions Homebound Status Criteria 1: Assistive Device(s): Cane and Walker Needs assistance of at least 1 to leave home Criteria 2: Patient confined to home due to limited ambulation related to RTKR and unsteady gait/poor balance Type of Home: 1-story house/ trailer Narratives Pt to be D/C when all goals/ max potential has been met; as determined by P.T. [facility] Pt [facility] to [place] [facility]. Reviewed care plan, medications, pain mgmt, ice and elevation, S&S to report, wound care and safety with ambulation. Patient/caregiver verbalized understanding and agreement. [facility] Actions Homebound Status Criteria 1: Assistive Device(s): Cane and Walker Needs assistance of at least 1 to leave home Criteria 2: Patient confined to home due to limited ambulation related to RTKR and unsteady gait/poor balance Type of Home: 1-story house/ trailer Narratives Pt to be D/C when all goals/ max potential has been met; as determined by P.T. [facility]* Auth/Cert Specialty Diagnoses / Procedures Referred By Contac t Referred To Contact Diagnoses severe aortic stenosis Procedures VT TRANSCATHETER TRANSAPICAL REPLACEMT AORTIC VALVE Transcatheter Aortic Valve Replacement TRANSCATHETER AORTIC VALVE REPLACEMENT FEMORAL APPROACH Referral ID Status Reason Start Date Expiration Date Visits Re quested Visits Authorized [id number] 1 1 [facility] Ass[facility] Diagnosis SOB (shortness of breath) Shortness of breath Diagnosis SOB (shortness of breath) Shortness of breath Coronary artery disease involving hopland coronary artery of hopland heart without angina pectoris Fibrosing mediastinitis Mediastinitis Nonrheumatic aortic valve insufficiency Diagnosis Nonrheumatic aortic valve insufficiency Summary Purpose Family History No Family History Records Found Relationship Condition Age at Onset Recorded Date/T ayleen mother Diabetes mellitus Unknown father Obstructive sleep apnea syndrome Unknown Advance Directives No Advanced Directives Records FoundDocuments on File Type Date Recorded Patient 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 Processing 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 Expl anation Advance Directives and Living Will Documents on File Type Date Recorded Patient 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 Processing Technician Expl anation Advance Directives and Livin g Will Advance Directives and Livin g Will 06/14/2019 12:00 AM Documents on File Type Date Recorded Patient 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 Processing Technician Expl anation Advance Directives and Livin g Will Advance Directives and Livin g Will 06/14/2019 12:00 AM Documents on File Type Date Recorded Patient 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 Processing Technician Expl anation Advance Directives and Livin g Will Advance Directives and Livin g Will 01/09/2022 7:51 AM Documents on File Type Date Recorded Patient 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 Processing Technician Expl anation Advance Directives and Livin g [...] Documents on File Type Date Recorded Patient 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 Processing Technician Expl anation Advance Directives and Livin g [...] 01/15/2022 6:56 AM 01/15/2022 9:1 7 AM Advance Directive Response Recorded Date/ Time Living Will No June 25, 2023 10:48am Power of Proposal Development Manager No June 25 10:48am Advance Directive Response Recorded Date/ Time Living Will No June 25, 2023 9:48am Power of Proposal Development Manager No June 25 9:48am Latest Code Status on File Code Status Date Activated Date Inactivated Comments Full Code 01/27/2024 4:06 PM Code Statu s reflects patient's informed choice. Code Status History Code Status Date Activated Date Inactivated Comments Full Code 01/26/2024 8:56 AM 01/26/2024 9:32 PM Full Code 01/21/2022 4:36 PM 01/22/2022 2:10 PM Full Code - Unverified 01/15/2022 6:56 AM 01/15/2022 9:1 7 AM Latest Code Status on File Code Status Date Activated Date Inactivated Comments Full Code 01/27/2024 4:06 PM Code Statu s reflects patient's informed choice. Code Status History Code Status Date Activated Date Inactivated Comments Full Code 01/26/2024 8:56 AM 01/26/2024 9:32 PM Full Code 01/21/2022 4:36 PM 01/22/2022 2:10 PM Full Code - Unverified 01/15/2022 6:56 AM 01/15/2022 9:1 7 AM Date Activated Date Inactivated Comments 01/27/2024 4:06 PM Code Status re flects patient's informed choice. Date Activated Date Inactivated Comments 01/26/2024 8:56 AM 01/26/2024 9:32 PM Date Activated Date Inactivated Comments 01/21/2022 4:36 PM 01/22/2022 2:10 PM Date Activated Date Inactivated Comments 01/15/2022 6:56 AM 01/15/2022 9:17 AM Date Activated Date Inactivated Comments 01/27/2024 4:06 PM Code Status re flects patient's informed choice. Date Activated Date Inactivated Comments 01/26/2024 8:56 AM 01/26/2024 9:32 PM Date Activated Date Inactivated Comments 01/21/2022 4:36 PM 01/22/2022 2:10 PM Date Activated Date Inactivated Comments 01/15/2022 6:56 AM 01/15/2022 9:17 AM Reason for Referral Status Reason Specialty Diagnoses / Procedures Referred By Contact Referred To Contact Pending Review Cardiology Diagnoses Nonrheumatic aortic valve insufficiency Procedures Echocardiogram complete Blaine Silveira MD [address] [place] [address] Status Reason Specialty Diagnoses / Procedures Referre d By Contact Referred To Contact Closed Cardiology Diagnoses Nonrheumatic aortic valve insufficiency Procedures Echocardiogram complete Blaine Silveira MD [address] [place] [address] Status Reason Specialty Diagnoses / Procedures Referred By Contact Referred To Contact Authorized Cardiology Diagnoses Coronary artery disease involving hopland coronary artery of hopland heart without angina pectoris Procedures ECG 12 Lead Blaine Silveira MD [address] [place] [address] Status Reason Specialty Diagnoses / Procedures Referred By Contact Referred To Contact New Request Radiology Diagnoses Coronary artery disease involving hopland coronary artery of hopland heart without angina pectoris Procedures NM Myocardial [place]fusion [place] [address] [place] [address] Status Reason Specialty Diagnoses / Procedures Referred By Contact Referred To Contact New Request Cardiology Diagnoses Nonrheumatic aortic valve insufficiency Procedures [place] [address] [place] [address] Status Reason Specialty Diagnoses / Procedures Referred By Contact Referred To Contact Pending Review Cardiology Diagnoses Nonrheumatic aortic valve insufficiency Procedures [place] [address] [place] [address] Specialty Diagnoses / Procedures Referred By Contac t Referred To Contact Cardiology Diagnoses Aortic valve stenosis, severe Pre-operative cardiovascular examination Procedures ECG 12 Lead Dye, Angelica Hsieh CNP [address] [place] [address] Referral ID Status Reason Start Date Expiration Date V isits Requested Visits Authorized [id number] Authorized 12/31/2021 12/31/2022 1 1 Specialty Diagnoses / Procedures Referred By Contac t Referred To Contact Cardiology Diagnoses Aortic valve stenosis, severe Pre-operative cardiovascular examination Other specified symptoms and signs involving the circulatory and respiratory systems Procedures Carotid Duplex Dye, Angelica Hsieh LAND ACQUISITION MANAGER [address] [place] [address] Referral ID Status Reason Start Date Expiration Date V isits Requested Visits Authorized [id number] Authorized 12/31/2021 12/31/2022 1 1 Specialty Diagnoses / Procedures Referred By Contac t Referred To Contact Cardiology Diagnoses S/P TAVR (transcatheter aortic valve replacement) Procedures ECG 12 Lead ToniaAngelica Claudia, LAND ACQUISITION MANAGER [address] [facility] [address] [address] Referral ID Status Reason Start Date Expiration Date Visits Re quested Visits Authorized [id number] Closed 01/22/2022 01/22/2023 1 1 Specialty Diagnoses / Procedures Referred By Contac t Referred To Contact Cardiology Diagnoses S/P TAVR (transcatheter aortic valve replacement) Procedures Echocardiogram complete Angelica Randall, LAND ACQUISITION MANAGER [address] [facility] [address] [place] [phone] Referral ID Status Reason Start Date Expiration Date Visits Re quested Visits Authorized [id number] Closed 01/22/2022 01/22/2023 1 1 Specialty Diagnoses / Procedures Referred By Contac t Referred To Contact Cardiac Rehabilitation Diagnoses S/P TAVR (transcatheter aortic valve replacement) Angelica Randall, LAND ACQUISITION MANAGER [address] [facility] [address] [place] [phone] Referral ID Status Reason Start Date Expiration Date V isits Requested Visits Authorized [id number] Authorized 01/21/2022 01/21/2023 1 1 Referral ID Status Reason Start Date Expiration Date Visits Re quested Visits Authorized [id number] Closed 06/19/2022 06/19/2023 1 1 Referral ID Status Reason Start Date Expiration Date V isits Requested Visits Authorized [id number] Authorized 06/19/2022 06/19/2023 1 1 Specialty Diagnoses / Procedures Referred By Contac t Referred To Contact Cardiology Diagnoses Osteoarthritis of right knee, unspecified osteoarthritis type Jass Pepe MD [address] [place] [address] [facility] [address] [place], [place] [address] [place] [address] Referral ID Status Reason Start Date Expiration Date Visits Requested Visits Authorized [id number] Authorized Specialty Services Required/Pat ient's Best Interest 09/26/2024 1 1 Specialty Diagnoses / Procedures Referred By Yanet t Referred To Contact Radiology Diagnoses Osteoarthritis of right knee, unspecified osteoarthritis type Procedures CT Knee Right Without Contrast Jass Pepe MD [address] [place] [address] Referral ID Status Reason Start Date Expiration Date V isits Requested Visits Authorized [id number] New Request 09/27/2023 09/26/2024 1 1 Specialty Diagnoses / Procedures Referred By Yanet guerra Referred To Contact Rehabilitation Diagnoses Status post total right knee replacement Jass Pepe MD [address] [place] [address] [place] [phone] Referral ID Status Reason Start Date Expiration Date V isits Requested Visits Authorized [id number] Authorized 02/01/2024 01/31/2025 1 1 History of Present Illness * Blaine Silveira MD - 06/06/2019 2:56 PM EDT Patient Name: Vickie Gonzalez [facility] MR #: [id number] Interventional Cardiology Blaine Silveira MD, [facility] 06/06/19 Dear Nicol Ibanez MD, Vickie Gonzalez was seen in follow up for : Problem Coronary Artery Disease Involving Kaw Coronary Artery of Kaw Heart Without Angina Pectoris CABG 2001 Cath 2010 all grafts open Aortic Insufficiency Moderate to Severe Asx AI-- same 12/2017 Fibrosing Mediastinitis Dx at time of cabg Assessment and Plan Coronary artery disease involving hopland coronary artery of hopland heart without angina pectoris Rare angina Doing [...] puffs 2 (two) times a day . [id number] ORAL Take 1 tablet by mouth daily [...] is not nervous/anxious. documented in this encounter Chief Complaint and Reason for Visit Chief Complaint WOUND Reason for Visit Basal cell carcinoma (BCC) of left lower extremity [id number] BMI 40.0-44.9, adult HTN (hypertension) Chief Complaint WOUND WOUND Reason for Visit Basal cell carcinoma (BCC) of left lower extremity [id number] BMI 40.0-44.9, adult HTN (hypertension) Basal cell carcinoma (BCC) of left lower extremity [id number] BMI 40.0-44.9, adult HTN (hypertension) Non-pressure chronic ulcer of left calf with fat layer exposed Chief Complaint WOUND WOUND WOUND LAC Reason for Visit Basal cell carcinoma (BCC) of left lower extremity [id number] BMI 40.0-44.9, adult HTN (hypertension) Basal cell carcinoma (BCC) of left lower extremity [id number] BMI 40.0-44.9, adult HTN (hypertension) Non-pressure chronic ulcer of left calf with fat layer exposed Basal cell carcinoma (BCC) of left lower extremity [id number] BMI 40.0-44.9, adult HTN (hypertension) Non-pressure chronic ulcer of left calf with fat layer exposed Chief Complaint WOUND WOUND WOUND LAC WOUND Reason for Visit Basal cell carcinoma (BCC) of left lower extremity [id number] BMI 40.0-44.9, adult HTN (hypertension) Basal cell carcinoma (BCC) of left lower extremity [id number] BMI 40.0-44.9, adult HTN (hypertension) Non-pressure chronic ulcer of left calf with fat layer exposed Basal cell carcinoma (BCC) of left lower extremity [id number] BMI 40.0-44.9, adult HTN (hypertension) Non-pressure chronic ulcer of left calf with fat layer exposed Basal cell carcinoma (BCC) of left lower extremity [id number] HTN (hypertension) Non-pressure chronic ulcer of left calf with fat layer exposed Chief Complaint E ORDERS Chief Complaint E ORDERS EORDER Additional Source Comments INFORMATION SOURCE (unrecogn ized section and content) DATE CREATED AUTHOR 05/24/2018 [facility] DATE CREATED AUTHOR AUTHOR'S ORGANIZ ATION 09/10/2022 [facility] DATE CREATED AUTHOR AUTHOR'S ORGANIZ ATION 01/25/2023 [facility] DATE CREATED AUTHOR AUTHOR'S ORGANIZ ATION 02/22/2023 [facility] DATE CREATED AUTHOR AUTHOR'S ORGANIZ ATION 11/15/2023 [facility] DATE CREATED AUTHOR AUTHOR'S ORGANIZ ATION 02/16/2024 [facility] DATE CREATED AUTHOR AUTHOR'S ORGANIZ ATION 03/15/2024 [facility] DATE CREATED AUTHOR AUTHOR'S ORGANIZ ATION 03/30/[address] [facility] DATE CREATED AUTHOR AUTHOR'S ORGANIZ ATION 01/14/2025 [facility] Reason for Visit (unrecogniz ed section and content) Reason Comments Annual Exam no complaints or con cerns for todays visit Status Reason Specialty Diagnoses / Procedures Referre d By Contact Referred To Contact Closed Cardiology Diagnoses Nonrheumatic aortic valve insufficiency Procedures Echocardiogram complete Blaine Silveira MD [address] [place] [address] Reason Comments Annual Exam Jaw Pain Shortness of Breath Reason Comments Initial Visit (Intake) TAVR Reason Comments Follow-up 2 Week TAVR Reason Comments Follow-up 1 Year TAVR Reason Comments Follow-up Specialty Diagnoses / Procedures Referred By Arcadioac t Referred To Contact Cardiology Diagnoses Osteoarthritis of right knee, unspecified osteoarthritis type Jass Pepe MD [address] [place] [address] Blaine Silveira MD [address] [place] [address] Referral ID Status Reason Start Date Expiration Date V isits Requested Visits Authorized [id number] Closed Specialty Services Required/Leda ent's Best Interest 09/27/2023 09/26/2024 1 1 Reason Onset Date Comments Medication Refill 01/11/2024 Reason Comments Pre-op Exam Specialty Diagnoses / Procedures Referred By Contac t Referred To Contact Referral ID Status Reason Start Date Expiration Date Visits Re quested Visits Authorized [id number] 1 1 Reason Onset Date Comments Medication Refill 02/08/2024 Reason Comments Follow-up Suture / Staple Removal Reason Comments 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 Specialty Diagnoses / Procedures Referred By Contac t Referred To Contact Rehabilitation Diagnoses Status post total right knee replacement Jass Pepe MD [address] [place] [phone] [facility] [address] [place] [address] Referral ID Status Reason Start Date Expiration Date V isits Requested Visits Authorized [id number] Authorized 02/01/2024 01/31/2025 13 199 Specialty Diagnoses / Procedures Referred By Yanet guerra Referred To Contact Rehabilitation Diagnoses Status post total right knee replacement Jass Pepe MD [address] [place], [place] [phone] [facility] [address] [place] [address] Assessment & Plan Note - Blaine Silveira [...] issues Associated Problem(s): Coronary artery disease involving hopland coronary artery of hopland heart without angina pectoris Rare angina Doing well, Medications reviewed and will continue current meds Followup 1 year documented in this encounter Care Teams (unrecognized sec tion and content) Nanotechnician Relationship Specialty Start Date End Date Nicol Ibanez MD [address] [place] [address] PCP - General 08/26/11 Jass Pepe MD [address] [place] [address] Consulting Physician Orthopedic Surgery 05/20/16 Nanotechnician Relationship Specialty Start Date End Date Nicol Ibanez MD [address] [place] [address] PCP - General 08/26/11 Jass Pepe MD [address] [place] [address] Consulting Physician Orthopedic Surgery 05/20/16 Nanotechnician Relationship Specialty Start Date End Date Nicol Ibanez MD [address] [place] [address] PCP - General 08/26/11 Jass Pepe MD [address] [place] [address] Consulting Physician Orthopedic Surgery 05/20/16 Nanotechnician Relationship Specialty Start Date End Date Nicol Ibanez MD [address] [place] [address] PCP - General 08/26/11 Jass Pepe MD [address] [place] [address] Consulting Physician Orthopedic Surgery 05/20/16 Nanotechnician Relationship Specialty Start Date End Date Nicol Ibanez MD [address] [place] [address] PCP - General 08/26/11 Jass Pepe MD [address] [place] [address] Consulting Physician Orthopedic Surgery 05/20/16 Nanotechnician Relationship Specialty Start Date End Date Nicol Ibanez MD [address] [place] [address] PCP - General 08/26/11 Jass Pepe MD [address] [facility] [place] [address] Consulting Physician Orthopedic Surgery 05/20/16 Nanotechnician Relationship Specialty Start Date End Date Nicol Ibanez MD [address] [place] [address] PCP - General 08/26/11 Jass Pepe MD [address] [facility] [place] [address] Consulting Physician Orthopedic Surgery 05/20/16 Nanotechnician Relationship Specialty Start Date End Date Nicol Ibanez MD [address] [place] [address] PCP - General 08/26/11 Jass Pepe MD [address] [facility] [place] [address] Consulting Physician Orthopedic Surgery 05/20/16 Nanotechnician Relationship Specialty Start Date End Date Nicol Ibanez MD [address] [place] [address] PCP - General 08/26/11 Jass Pepe MD [address] [facility] [place] [address] Consulting Physician Orthopedic Surgery 05/20/16 Nanotechnician Relationship Specialty Start Date End Date Nicol Ibanez MD [address] [place] [address] PCP - General 08/26/11 Jass Pepe MD [address] [place] [address] Consulting Physician Orthopedic Surgery 05/20/16 Nanotechnician Relationship Specialty Start Date End Date Nicol Ibanez MD [address] [place] [address] PCP - General 08/26/11 Jass Pepe MD [address] [place] [address] Consulting Physician Orthopedic Surgery 05/20/16 Nanotechnician Relationship Specialty Start Date End Date Nicol Ibanez MD [address] [place] [address] PCP - General 08/26/11 Jass Pepe MD [address] [place] [address] Consulting Physician Orthopedic Surgery 05/20/16 Team Status: Active Member Role Status Dates Dr. Nicol Ibanez MD Family Provider Active Dr. Nicol Ibanez MD Primary Care Provider Active Team Status: Inactive Member Role Status Dates Dr. Nicol Ibanez MD Primary Care Provider Active Dr. Lindsey Walsh DPM Attending Provider Active Dr. Lisa Pryor MD Referring Provider Active Team Status: Active Member Role Status Dates Dr. Nicol Ibanez MD Primary Care Provider Active Dr. Lindsey Walsh DPM Attending Provider Active Dr. Lisa Pryor MD Referring Provider Active Team Status: Inactive Member Role Status Dates Dr. Nicol Ibanez MD Primary Care Provider Active Dr. Les Mcmanus MD Emergency Provider Active Team Status: Inactive Member Role Status Dates Dr. Nicol Ibanez MD Primary Care Provider Active Dr. Les Mcmanus MD Attending Provider, Emergency Provi aleksandar Active Nanotechnician Relationship Specialty Start Date End Date Nicol Ibanez MD [address] [place] [address] PCP - General 08/26/11 Jass Pepe MD [address] [place] [address] Consulting Physician Orthopedic Surgery 05/20/16 Nanotechnician Relationship Specialty Start Date End Date Nicol Ibanez MD [address] [place] [address] PCP - General 08/26/11 Jass Pepe MD [address] [place] [address] Consulting Physician Orthopedic Surgery 05/20/16 Team Status: Active Member Role Status Dates Dr. Nicol Ibanez MD Family Provider Active Dr. Kirill Newell MD Primary Care Provider Active Team Status: Inactive Member Role Status Dates Dr. Kirill Newell MD Primary Care Provide r, Attending Provider, Referring Provider Active Nanotechnician Relationship Specialty Start Date End Date Nicol Ibanez MD [address] [place] [address] PCP - General 08/26/11 Jass Pepe MD [address] [place] [address] Consulting Physician Orthopedic Surgery 05/20/16 Nanotechnician Relationship Specialty Start Date End Date Nicol Ibanez MD [address] [place] [address] PCP - General 08/26/11 Jass Pepe MD [address] [place] [address] Consulting Physician Orthopedic Surgery 05/20/16 Nanotechnician Relationship Specialty Start Date End Date Nicol Ibanez MD [address] [place] [address] PCP - General 08/26/11 Jass Pepe MD [address] [place] [address] Consulting Physician Orthopedic Surgery 05/20/16 Nanotechnician Relationship Specialty Start Date End Date Nicol Ibanez MD [address] [place] [address] PCP - General 08/26/11 Jass Pepe MD [address] [place] [address] Consulting Physician Orthopedic Surgery 05/20/16 Nanotechnician Relationship Specialty Start Date End Date Nicol Ibanez MD [address] [place] [address] PCP - General 08/26/11 Jass Pepe MD [address] [place] [address] Consulting Physician Orthopedic Surgery 05/20/16 Nanotechnician Relationship Specialty Start Date End Date Nicol Ibanez MD [address] [place] [address] PCP - General 08/26/11 Jass Pepe MD [address] [place] [address] Consulting Physician Orthopedic Surgery 05/20/16 Nanotechnician Relationship Specialty Start Date End Date Nicol Ibanez MD [address] [place] [address] PCP - General 08/26/11 Jass Pepe MD [address] [place] [address] Consulting Physician Orthopedic Surgery 05/20/16 Nanotechnician Relationship Specialty Start Date End Date Nicol Ibanez MD [address] [place] [address] PCP - General 08/26/11 Jass Pepe MD [address] [place] [address] Consulting Physician Orthopedic Surgery 05/20/16 Nanotechnician Relationship Specialty Start Date End Date Nicol Ibanez MD [address] [place] [address] PCP - General 08/26/11 Jass Pepe MD [address] [place] [address] Consulting Physician Orthopedic Surgery 05/20/16 Nanotechnician Relationship Specialty Start Date End Date Nicol Ibanez MD [address] [place] [address] PCP - General 08/26/11 Jass Pepe MD [address] [place] [address] Consulting Physician Orthopedic Surgery 05/20/16 Nanotechnician Relationship Specialty Start Date End Date Nicol Ibanez MD [address] [place] [address] PCP - General 08/26/11 Jass Pepe MD [address] [place] [address] Consulting Physician Orthopedic Surgery 05/20/16 Nanotechnician Relationship Specialty Start Date End Date Nicol Ibanez MD [address] [place] [address] PCP - General 08/26/11 Jass Pepe MD [address] [place] [address] Consulting Physician Orthopedic Surgery 05/20/16 Nanotechnician Relationship Specialty Start Date End Date Nicol Ibanez MD [address] [place] [address] PCP - General 08/26/11 Jass Pepe MD [address] [place] [address] Consulting Physician Orthopedic Surgery 05/20/16 Nanotechnician Relationship Specialty Start Date End Date Nicol Ibanez MD [address] [place] [address] PCP - General 08/26/11 Jass Pepe MD [address] [place] [address] Consulting Physician Orthopedic Surgery 05/20/16 Nanotechnician Relationship Specialty Start Date End Date Nicol Ibanez MD [address] [place] [address] PCP - General 08/26/11 Jass Pepe MD [address] [place] [address] Consulting Physician Orthopedic Surgery 05/20/16 Nanotechnician Relationship Specialty Start Date End Date Nicol Ibanez MD [address] [place] [address] PCP - General 08/26/11 Jass Pepe MD [address] [place] [address] Consulting Physician Orthopedic Surgery 05/20/16 Nanotechnician Relationship Specialty Start Date End Date Nicol Ibanez MD [address] [place] [address] PCP - General 08/26/11 Jass Pepe MD [address] [place] [address] Consulting Physician Orthopedic Surgery 05/20/16 Nanotechnician Relationship Specialty Start Date End Date Nicol Ibanez MD [address] [place] [address] PCP - General 08/26/11 Jass Pepe MD [address] [place] [address] Consulting Physician Orthopedic Surgery 05/20/16 Nanotechnician Relationship Specialty Start Date End Date Nicol Ibanez MD [address] [place] [address] PCP - General 08/26/11 Jass Pepe MD [address] [place] [address] Consulting Physician Orthopedic Surgery 05/20/16 Nanotechnician Relationship Specialty Start Date End Date Nicol Ibanez MD [address] [place] [address] PCP - General 08/26/11 Jass Pepe MD [address] [place] [address] Consulting Physician Orthopedic Surgery 05/20/16 Nanotechnician Relationship Specialty Start Date End Date Nicol Ibanez MD [address] [place] [address] PCP - General 08/26/11 Jass Pepe MD [address] [place] [address] Consulting Physician Orthopedic Surgery 05/20/16 Nanotechnician Relationship Specialty Start Date End Date Nicol Ibanez MD [address] [place] [address] PCP - General 08/26/11 Jass Pepe MD [address] [place] [address] Consulting Physician Orthopedic Surgery 05/20/16 Nanotechnician Relationship Specialty Start Date End Date Nicol Ibanez MD [address] [place] [address] PCP - General 08/26/11 Jass Pepe MD [address] [place] [address] Consulting Physician Orthopedic Surgery 05/20/16 Scheduled Active and Recently Administ ered Medications (unrecognized section and content) Medication Order 01/20/2022 01/21/2022 01/22/2022 acetaminophen (TYLENOL ER) extended-release tablet 1,300 mg (COMPLETED) 1,300 mg, Oral, Once, On Thu01/21/22 at 0815, For 1 dose, Pre-Procedure 0849 (Given - Provider: Holley Maldonado RN) albuterol (PROVENTIL) 2.5 mg /3 mL (0.083 %) nebulizer solution 2.5 mg (COMPLETED) 2.5 mg, Inhalation, Once (RT), On Thu01/21/22 at 0815, For 1 dose, Pre-Procedure 0850 (Given - Provider: Holley Maldonado RN) aspirin EC tablet 81 mg 81 mg, Oral, Every other day, First dose on Thu01/21/22 at 1730, PACU to Post Procedure, DO NOT CRUSH OR CHEW. 1744 (Given - Provider: Myla Hubbard RN) ceFAZolin (ANCEF) IVPB 2 g (premix) (COMPLETED) 2,000 mg, Intravenous, at 100 mL/hr, Once, On Thu01/21/22 at 0815, For 1 dose, Pre-Procedure, Initiate within 60 minutes prior to incision., Indication (PRE PROCEDURE): Cardiothoracic 1040 (Given - Provider: Deep Sawant) ceFAZolin (ANCEF) IVPB 2 g (premix) (COMPLETED) 2,000 mg, Intravenous, at 100 mL/hr, Every 8 hours, First dose on Thu01/21/22 at 1900, For 3 doses, PACU to Post Procedure, Indication: Other (specify), Indication: s/p TAVR 2014 (New Bag - Provider: Gaby Evans RN)2045 (Stopped - Provider: Gaby Evans RN) 0414 (New Bag - Provider: Gaby Evans RN)0444 (Stopped - Provider: Gaby Evnas RN)1021 (New Bag - Provider: Lisa Guzmán RN) clopidogreL (PLAVIX) tablet 75 mg 75 mg, Oral, Daily, First dose on Thu01/22/22 at 0900 0940 (Given - Provid er: Lisa Guzmán RN) dronabinoL (MARINOL) capsule 5 mg (COMPLETED) 5 mg, Oral, Once, On Thu01/21/22 at 0815, For 1 dose, Pre-Procedure, administer 30-60 minutes prior to surgery 0849 (Given - Provider: Holley Maldonado RN) heparin (porcine) injection 5,000 Units 5,000 Units, Subcutaneous, Every 8 hours scheduled, First dose on Thu01/21/22 at 1730, PACU to Post Procedure, Notify physician if patient refuses. 1744 (Given - Provider: Myla Hubbard RN)2203 (Given - Provider: Gaby Evans RN) 0532 (Given - Provider: Gaby Evans RN) losartan (COZAAR) tablet 100 mg 100 mg, Oral, Nightly, First dose on Thu01/22/22 at 2100 magnesium sulfate 2 g in sterile water (SW) 50 mL IVPB (COMPLETED) 2 g, Intravenous, at 50 mL/hr, Once, On Thu01/21/22 at 1515, For 1 dose, PACU (only), 2gm IVPB over 60 minutes x 1 for serum Magnesium in range of 1.4-1.9 mg/dL per Critical/ Intermediate Care Electrolyte Replacement Therapy. 1450 (New Bag - Provider: Jessica Conde RN) metoprolol succinate (TOPROL-XL) 24 hr tablet 50 mg 50 mg, Oral, Daily, First dose on Thu01/22/22 at 0900, DO NOT CRUSH OR CHEW. 0940 (Given - Provid er: Lisa Guzmán RN) oxyCODONE (OXYCONTIN) 12 hr tablet 10 mg (COMPLETED) 10 mg, Oral, Once, On Thu01/21/22 at 0815, For 1 dose, Pre-Procedure, DO NOT CRUSH OR CHEW. 0849 (Given - Provider: Holley Maldonado, JERRY) pantoprazole (PROTONIX) EC tablet 40 mg 40 mg, Oral, Daily, First dose on Thu01/21/22 at 1730, PACU to Post Procedure, DO NOT CRUSH OR CHEW. 174 (Given - Provider: Myla Hubbard, JERRY) 08 (Given - Provider: Lisa Guzmán, RN) potassium chloride SA (K-DUR,KLOR-CON) CR tablet 20 mEq (COMPLETED) 20 mEq, Oral, Once, On Thu01/21/22 at 1515, For 1 dose, PACU (only), 20mEq orally x 1 for serum Potassium in range of 3.5-4 mEq/L per Critical Care Electrolyte Replacement Therapy. DO NOT CRUSH OR CHEW (if instructed may dissolve tablet(s) in liquid) DO NOT ADMINISTER DISSOLVED TABLET VIA SURGICALLY PLACED TUBE OR TUBE less than 14 Irish For tube administration: dissolve tablet(s) with 4 ounces of water over 2-3 minutes, stir for 30 seconds prior to administration; rinse dosing cup and administer residual medication to ensure full dose given 1450 (Given - Provider: Jessica Conde, JERRY) pravastatin (PRAVACHOL) tablet 40 mg 40 mg, Oral, Nightly, First dose on Thu01/21/22 at 2100, PACU to Post Procedure 2015 (Given - Provider: Gaby Evans RN) senna-docusate (SENNA-S) 8.6-50 mg per tablet 1 tablet 1 tablet, Oral, 2 times daily, First dose on Thu01/21/22 at 2100, PACU to Post Procedure, NOT for abdominal surgery patients. Hold for loose stools. Do Not Crush or Chew if administering orally due to bitter taste. May be crushed if given via tube. 2015 (Given - Provider: Gaby Evans, JERRY) 804 (Given - Provider: Lisa Guzmán, JERRY) sodium chloride (PF) (NS) flush 5 mL(Linked Group 1) 5 mL, Intravenous, Every 8 hours scheduled, First dose on Thu01/21/22 at 1730, PACU to Post Procedure, Saline lock 174 (Given - Provider: Myla Hubbard RN)2202 (Given - Provider: Gaby Evans RN) 0534 (Given - Provider: Gaby Evans RN) Continuous Medication Order 01/20/2022 01/21/2022 01/22/2022 sodium chloride 0.9% (NS) (CANCELED) 50 mL/hr, Intravenous, Continuous, Starting on Thu01/21/22 at 0815, Pre-Procedure, Start 2 hours prior to planned procedure 0850 (New Bag - Provider: Holley Maldonado RN)1031 (Paused - Provider: Deep Sawant - Comment: Switch to gravity)1032 (Restarted - Provider: Deep Sawant)1235 (Anesthesia Volume Adjustment - Provider: Deep Sawant) sodium chloride 0.9% (NS) 25 mL/hr, Intravenous, Continuous, Starting on Thu01/21/22 at 1730, PACU (only), Peripheral lines 1730 (Canceled Entry - Provider: Myla Hubbard, JERRY) sodium chloride 0.9% for pressurized line 1,000 mL, Intra-arterial, Continuous, Starting on Thu01/21/22 at 1730, PACU (only), Maintain line at 300 mmHg. 1730 (Canceled Entry - Provider: Myla Hubbard, JERRY) PRN Medication Order 01/20/2022 01/21/2022 01/22/2022 acetaminophen [...] KVO. 2013 (New Bag - Provider: Gaby Evans RN)2044 (Rate/Dose Verify - Provider: Gaby Evans RN)221 (Stopped - Provider: Gaby Evans RN) 041 (Restarted - Provider: Gaby Evans RN)041 (Rate/Dose Verify - Provider: Gaby Evans RN)0444 (Rate/Dose Verify - Provider: Gaby Evans RN)0523 (Stopped - Provider: Gaby Evans RN)1004 (Restarted - Provider: Lisa Guzmán, JERRY)1006 (Stopped - Provider: Lisa Guzmán RN) sodium chloride 0.9% (NS) 25 mL/hr, Intravenous, As needed, lines, Starting on Thu01/21/22 at 1636, PACU (only), Arterial and [place] Lines at 300 mmHg 1738 (Canceled [...] dose undiluted IV Push over 30 seconds.
Goals (unrecognized section and content) Goals may be documented in a n alternate sectionGoals may be documented in an alternate sectionGoals may be documented in an alternate sectionGoals may be documented in an alternate sectionGoals may be documented in an alternate sectionGoals may be documented in an alternate sectionGoals may be documented in an alternate section FOR RECORDS PERTAINING TO PATIENTS WHO ARE [...] BE BASED ON THE PRIMARY CLINICAL RECORDS. [facility] [employer] [facility]. provides no warranty or guarantee of the accuracy or completeness of information in this document.
--- OUTSIDE RECORDS SUMMARY | 2025-05-30 02:33 | XMS RPT_ITS | CCD ---
Author Organization [facility] Care Team Providers Care Maintenance Journeyman Name Role Phone Nicol Ibanez Unavailable Unavailable Jass Pepe Unavailable [phone] Blaine Silveira Unavailable Unavailable Blaine Silveira Unavailable Unavailable Nicol Ibanez Primary Care Provider Jass Pepe Unavailable [phone] Nicol Ibanez Primary Care Provider Jass Pepe [...] Maldonado Unavailable NICOL IBANEZ Primary Care Un[facility] Primary Care Unavailable ANGELICA RANDALL Admitting Unavailable TONIA, ANGELICA HSIEH Attending Unavailable TOMCHAK, NICOL OSBORN Primary Care Unavailable ANGELICA RANDALL Attending Unavailable TOMCHAAyana, NICOL OSBORN Primary Care Unavailable TERRIE OH [...] le TOMMELCHOR, NICOL OSBORN Primary Care Unavailable SHERLYN VILLAVICENCIO Attending Unavailable [...] NSAIDs (4 sources) Naproxen Drug Allergy 5 [facility] Quinolones (antibiotic) (4 sources) levoFLOXacin Drug Allergy [address] [place] [address] (20 sources) levoFLOXacin; Translations: [LEVOFLOXACIN] Propensity to adverse reactions to drug [address] [place] [address] Work Phone: (20 sources) naproxen; Translations: [NAPROXEN] Propensity to adverse reactions to drug [address] [place] [address] Work Phone: (1 source) ALLERGIES NOT ON FILE; Translations: [ALLERGIES NOT ON FILE] Propensity to adverse reactions (disorder) [facility] 2 Repository (1 source) Naproxen Drug Allergy 3 [facility] Repository Medications Current Medications Medication [...] 29, 2018 12:00am March 16, 2018 8:23am KIXCECB-BUYQVJYDB-QJJZ ORAL (20 sources) take 1 tablet by mouth once daily WAMSNFO-TXNZFYBIZ-ZECB ORAL Take 1 tablet by mouth daily . 0 take 1 tablet by mouth once umm y CDHGULZ-OXAEDICNP-ZAYM ORAL Take 1 tablet by mouth daily . 0 Suspended take 1 tablet by mouth once umm y UCATRML-PWOGYGTNN-YDTT ORAL Take 1 tablet by mouth daily . 0 Active take 1 tablet by mouth twice erinn ly VKGEYIQ-FQSMKSEBE-VVNY ORAL Take 1 tablet by mouth 2 [...] (two) times a day . 0 Active [id number] 200 actuat albuterol 0.09 mg/actuat metered dose [...] route twice daily azelastine-fluticasone (DYMISTA) 137-50 mcg/spray [place] Instill 1 spray into each nostril 2 [...] 02/05/2024 docusate sodium 50 mg / sennosides, fci 8.6 mg oral tablet (1 source) Start: [...] 01-22-2022 naloxone (NARCAN) injection 0.1 mg nystatin 655862 unt/ml oral suspension (14 sources) Polyene Antifungal Start: 08-10-2018 End: 02-28-2019 take 722559 [IU] by mouth three times daily Nystatin Discontinued [id number] UNIT PO THREE TIMES A DAY 60 [...] 0-10 mL of mixture polyethylene glycol 3350 74557 mg powder for oral solution (10 sources) [...] MG tablet Indications: Coronary artery disease involving [place] coronary artery of [place] heart without angina pectoris Take 1 (one) [...] End: 01-21-2022 sodium chloride 0.9% (NS) Tiotropium Lindsay (7 sources) Anticholinergic Start: 12-22-2017 End: 12-22-2017 take 1 puff(s) by inhalation once daily Tiotropium Lindsay (Spiriva Respimat) 2.5 mcg/actuation mist Discontinued 2 PUFF INHALATION daily December 22, 2017 12:00am December 22, 2017 10:44am Start: 12-22-2017 End: 12-22-2017 take 1 puff(s) by inhalation once daily Tiotropium Lindsay (Spiriva Respimat) 2.5 mcg/actuation mist Discontinued 2 [...] heart disease (20 sources) 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[place] artery; Translations: [Atherosclerotic heart disease of [place] coronary artery without angina pectoris] Onset: 11-05-2015 [...] Absolute Lymph 1.60 X10 3/uL Normal 0.83-4.51 [facility] Comment on above: Order Comment: Order Date: 12/13/24 Order Info: 0184-1 - CBCD Order Info: [id number] - SED Performed By: #### L 100.0100, L500.4050, L502.0250, L506.1000, L500.4100, L501.9520, L501.9985, L509.1000, L101.9900 #### [facility] [place], [address] Absolute Neut 3.8 X10 3/uL Normal 2.0-7.7 [facility] Comment on above: Order Comment: Order Date: 12/13/24 Order Info: 018-1 - CBCD Order Info: [id number] - SED Performed By: #### L 100.0100, L500.4050, L502.0250, L506.1000, L500.4100, L501.9520, L501.9985, L509.1000, L101.9900 #### [facility] [address] [place], [address] Basophils/100 WBC (Bld) 0.7 % Normal 0-1 [facility] Comment on above: Order Comment: Order Date: 12/13/24 Order Info: 183-11 - CBCD Order Info: [id number] - SED Performed By: #### L 100.0100, L500.4050, L502.0250, L506.1000, L500.4100, L501.9520, L501.9985, L509.1000, L101.9900 #### [facility] [address] [place], [address] Eosinophils/100 WBC (Bld) 3.0 % Normal 0-5 [facility] Comment on above: Order Comment: Order Date: 12/13/24 Order Info: [id number] - CBCD Order Info: 11523-2 - SED Performed By: #### L 100.0100, L500.4050, L502.0250, L506.1000, L500.4100, L501.9520, L501.9985, L509.1000, L101.9900 #### [facility] [address] [place], [address] Erythrocyte distribution width (RBC) [Ratio] 14.6 % Normal 11.6-14.6 [facility] Comment on above: Order Comment: Order Date: 12/13/24 Order Info: [id number] - CBCD Order Info: [id number] - SED Performed By: #### L 100.0100, L500.4050, L502.0250, L506.1000, L500.4100, L501.9520, L501.9985, L509.1000, L101.9900 #### [facility] [address] [place], [address] Hematocrit (Bld) [Volume fraction] 36.5 % Low 37-47 [facility] Comment on above: Order Comment: Order Date: 12/13/24 Order Info: 018-1 - CBCD Order Info: 81523-6 - SED Performed By: #### L 100.0100, L500.4050, L502.0250, L506.1000, L500.4100, L501.9520, L501.9985, L509.1000, L101.9900 #### [facility] [address] [place], [place], [id number] Hemoglobin (Bld) [Mass/Vol] 11.6 g/dL Low 12.0-15.0 [facility] Comment on above: Order Comment: Order Date: 12/13/24 Order Info: 0184- - CBCD Order Info: 79699-2 - SED Performed By: #### L 100.0100, L500.4050, L502.0250, L506.1000, L500.4100, L501.9520, L501.9985, L509.1000, L101.9900 #### [facility] [address] [place], [place], [phone] IG% 0.300 Normal 0.0-0.9 [facility] Comment on above: Order Comment: Order Date: 12/13/24 Order Info: [id number] - CBCD Order Info: 05025-0 - SED Result Comment: IG% - Immature Granulocytes (promyelocytes, myelocytes and metamyelocytes) > 1% indicates that a LEFT SHIFT is Present. Performed By: #### L 100.0100, L500.4050, L502.0250, L506.1000, L500.4100, L501.9520, L501.9985, L509.1000, L101.9900 #### [facility] [address] [place], [address] Lymphocytes/100 WBC (Bld) 26.8 % Normal 19-41 [facility] Comment on above: Order Comment: Order Date: 12/13/24 Order Info: 0184- - CBCD Order Info: [id number] - SED Performed By: #### L 100.0100, L500.4050, L502.0250, L506.1000, L500.4100, L501.9520, L501.9985, L509.1000, L101.9900 #### [facility] [address] [place], [address] MCH (RBC) [Entitic mass] 29.0 pg Normal 27.0-32.0 [facility] Comment on above: Order Comment: Order Date: 12/13/24 Order Info: 01802-28 - CBCD Order Info: [id number] - SED Performed By: #### L 100.0100, L500.4050, L502.0250, L506.1000, L500.4100, L501.9520, L501.9985, L509.1000, L101.9900 #### [facility] [address] [place], [address] MCHC (RBC) [Mass/Vol] 31.8 g/dL Low 32-[address] [facility] Comment on above: Order Comment: Order Date: 12/13/24 Order Info: 0184- - CBCD Order Info: 02089-8 - SED Performed By: #### L 100.0100, L500.4050, L502.0250, L506.1000, L500.4100, L501.9520, L501.9985, L509.1000, L101.9900 #### [facility] [address] [place], [address] MCV (RBC) [Entitic vol] 91.3 fL Normal 81-99 [facility] Comment on above: Order Comment: Order Date: 12/13/24 Order Info: 018- - CBCD Order Info: [id number] - SED Performed By: #### L 100.0100, L500.4050, L502.0250, L506.1000, L500.4100, L501.9520, L501.9985, L509.1000, L101.9900 #### [facility] [address] [place], [address] Monocytes/100 WBC (Bld) 6.2 % Normal 0-10 [facility] Comment on above: Order Comment: Order Date: 12/13/24 Order Info: 183-11 - CBCD Order Info: 07504-7 - SED Performed By: #### L 100.0100, L500.4050, L502.0250, L506.1000, L500.4100, L501.9520, L501.9985, L509.1000, L101.9900 #### [facility] [address] [place], [address] Neutrophils/100 WBC (Bld) 63.0 % Normal 47-70 [facility] Comment on above: Order Comment: Order Date: 12/13/24 Order Info: 01802-28 - CBCD Order Info: 31020-2 - SED Performed By: #### L 100.0100, L500.4050, L502.0250, L506.1000, L500.4100, L501.9520, L501.9985, L509.1000, L101.9900 #### [facility] [address] [place], [address] Nucleated RBC (Bld) [#/Vol] 0 10*3/uL Normal 0-5 [facility] Comment on above: Order Comment: Order Date: 12/13/24 Order Info: 018- - CBCD Order Info: 24486-0 - SED Performed By: #### L 100.0100, L500.4050, L502.0250, L506.1000, L500.4100, L501.9520, L501.9985, L509.1000, L101.9900 #### [facility] [address] [place], [address] Platelet mean volume (Bld) [Entitic vol] 11.8 fL Normal 6.2-12.0 [facility] Comment on above: Order Comment: Order Date: 12/13/24 Order Info: 0184-1 - CBCD Order Info: 09215-5 - SED Performed By: #### L 100.0100, L500.4050, L502.0250, L506.1000, L500.4100, L501.9520, L501.9985, L509.1000, L101.9900 #### [facility] [address] [place], [address] Platelets (Bld) [#/Vol] 201 10*3/uL Normal 150-450 [facility] Comment on above: Order Comment: Order Date: 12/13/24 Order Info: 0184-1 - CBCD Order Info: 86468-5 - SED Performed By: #### L 100.0100, L500.4050, L502.0250, L506.1000, L500.4100, L501.9520, L501.9985, L509.1000, L101.9900 #### [facility] [address] [place], [address] RBC (Bld) [#/Vol] 4.00 10*6/uL Low 4.2-5.4 [facility] Comment on above: Order Comment: Order Date: 12/13/24 Order Info: 0184-1 - CBCD Order Info: 11064-4 - SED Performed By: #### L 100.0100, L500.4050, L502.0250, L506.1000, L500.4100, L501.9520, L501.9985, L509.1000, L101.9900 #### [facility] [address] [place], [place], [id number] RDW SD 47.9 fl High 35.1-43.9 [facility] Comment on above: Order Comment: Order Date: 12/13/24 Order Info: 0184-1 - CBCD Order Info: 14120-4 - SED Performed By: #### L 100.0100, L500.4050, L502.0250, L506.1000, L500.4100, L501.9520, L501.9985, L509.1000, L101.9900 #### [facility] [address] [place], [place], [phone] WBC (Bld) [#/Vol] 6.0 10*3/uL Normal 4.4-11.0 [facility] Comment on above: Order Comment: Order Date: 12/13/24 Order Info: 0184-1 - CBCD Order Info: 53081-2 - SED Performed By: #### L 100.0100, L500.4050, L502.0250, L506.1000, L500.4100, L501.9520, L501.9985, L509.1000, L101.9900 #### [facility] [address] [place], [place], [id number] Comprehensive Metabolic Prof [facility] 12-19-2024 Albumin [Mass/Vol] 3.1 g/dL Low 3.2-5.0 [facility] Comment on above: Order Comment: Order Date: 12/13/24 Order Info: 0786-1 - CMP Order Info: [id number] - LIPID Order Info: 3016-3 - TSH Performed By: #### L 100.0100, L500.4050, L502.0250, L506.1000, L500.4100, L501.9520, L501.9985, L509.1000, L101.9900 #### [facility] [address] [place], [place], [phone] Albumin/Globulin [Mass ratio] 0.7 {ratio} Low 0.9-2.4 [facility] Comment on above: Order Comment: Order Date: 12/13/24 Order Info: 0786-1 - CMP Order Info: [id number] - LIPID Order Info: 3015-3 - TSH Performed By: #### L 100.0100, L500.4050, L502.0250, L506.1000, L500.4100, L501.9520, L501.9985, L509.1000, L101.9900 #### [facility] [address] [place], [address] ALK P 119 U/L High 45-117 [facility] Comment on above: Order Comment: Order Date: 12/13/24 Order Info: 86-1 - CMP Order Info: [id number] - LIPID Order Info: [id number] - TSH Performed By: #### L 100.0100, L500.4050, L502.0250, L506.1000, L500.4100, L501.9520, L501.9985, L509.1000, L101.9900 #### [facility] [address] [place], [address] ALT [Catalytic activity/Vol] 24 U/L Normal 13-56 [facility] Comment on above: Order Comment: Order Date: 12/13/24 Order Info: 0786-1 - CMP Order Info: [id number] - LIPID Order Info: 3015-3 - TSH Performed By: #### L 100.0100, L500.4050, L502.0250, L506.1000, L500.4100, L501.9520, L501.9985, L509.1000, L101.9900 #### [facility] [address] [place], [address] AST [Catalytic activity/Vol] 24 U/L Normal 15-37 [facility] Comment on above: Order Comment: Order Date: 12/13/24 Order Info: 0786-1 - CMP Order Info: [id number] - LIPID Order Info: 3 - TSH Performed By: #### L 100.0100, L500.4050, L502.0250, L506.1000, L500.4100, L501.9520, L501.9985, L509.1000, L101.9900 #### [facility] [address] [place], [place], [address] Bilirubin [Mass/Vol] 0.70 mg/dL Normal 0.20-1.00 [facility] Comment on above: Order Comment: Order Date: 12/13/24 Order Info: 0786-1 - CMP Order Info: [id number] - LIPID Order Info: 3015-3 - TSH Result Comment: For patients on eltrombopag therapy, use of Dimension [place] TBIL is not recommended. Performed By: #### L 100.0100, L500.4050, L502.0250, L506.1000, L500.4100, L501.9520, L501.9985, L509.1000, L101.9900 #### [facility] [address] [place], [place], [id number] BUN/CRE 18.9 RATIO Normal 10-20 [facility] Comment on above: Order Comment: Order Date: 12/13/24 Order Info: 0786- - CMP Order Info: [id number] - LIPID Order Info: 3 - TSH Performed By: #### L 100.0100, L500.4050, L502.0250, L506.1000, L500.4100, L501.9520, L501.9985, L509.1000, L101.9900 #### [facility] [address] [place], [place], [phone] CA,Total 9.1 mg/dL Normal 8.5-10.1 [facility] Comment on above: Order Comment: Order Date: 12/13/24 Order Info: 0786-1 - CMP Order Info: [id number] - LIPID Order Info: [id number] - TSH Performed By: #### L 100.0100, L500.4050, L502.0250, L506.1000, L500.4100, L501.9520, L501.9985, L509.1000, L101.9900 #### [facility] [address] [place], [address] Chloride [Moles/Vol] 107 mmol/L Normal 98-107 [facility] Comment on above: Order Comment: Order Date: 12/13/24 Order Info: 0786-1 - CMP Order Info: [id number] - LIPID Order Info: [id number] - TSH Performed By: #### L 100.0100, L500.4050, L502.0250, L506.1000, L500.4100, L501.9520, L501.9985, L509.1000, L101.9900 #### [facility] [address] [place], [place], [id number] CO2 [Moles/Vol] 28.0 mmol/L Normal 21.0-32.0 [facility] Comment on above: Order Comment: Order Date: 12/13/24 Order Info: 0786-1 - CMP Order Info: [id number] - LIPID Order Info: 6-3 - TSH Performed By: #### L 100.0100, L500.4050, L502.0250, L506.1000, L500.4100, L501.9520, L501.9985, L509.1000, L101.9900 #### [facility] [address] [place], [place], [address] Creatinine [Mass/Vol] 0.85 mg/dL Normal 0.55-1.[address] [facility] Comment on above: Order Comment: Order Date: 12/13/24 Order Info: 0786-1 - CMP Order Info: [id number] - LIPID Order Info: [id number] - TSH Result Comment: The validity of the calculated GFR GFRAA in patients over 70 years has not been determined. Clinical correlation is essential. Performed By: #### L 100.0100, L500.4050, L502.0250, L506.1000, L500.4100, L501.9520, L501.9985, L509.1000, L101.9900 #### [facility] [address] [place], [place], [address] EST GFR - AA 85 mL/min Normal >60 [facility] Comment on above: Order Comment: Order Date: 12/13/24 Order Info: 0786-1 - CMP Order Info: [id number] - LIPID Order Info: [id number] - TSH Result Comment: Afri can [place] GFR Calc Performed By: #### L 100.0100, L500.4050, L502.0250, L506.1000, L500.4100, L501.9520, L501.9985, L509.1000, L101.9900 #### [facility] [address] [place], [address] GAP 2 Low 5-15 [facility] Comment on above: Order Comment: Order Date: 12/13/24 Order Info: 07- - CMP Order Info: [id number] - LIPID Order Info: 3 - TSH Performed By: #### L 100.0100, L500.4050, L502.0250, L506.1000, L500.4100, L501.9520, L501.9985, L509.1000, L101.9900 #### [facility] [address] [place], [place], [id number] GFR/1.73 sq M.predicted among non-blacks MDRD (S/P/Bld) [Vol rate/Area] 71 mL/min/{1.73_m2} Normal >60 [facility] Comment on above: Order Comment: Order Date: 12/13/24 Order Info: 0786-1 - CMP Order Info: [id number] - LIPID Order Info: [id number] - TSH Result Comment: Non- GFR Calc Performed By: #### L 100.0100, L500.4050, L502.0250, L506.1000, L500.4100, L501.9520, L501.9985, L509.1000, L101.9900 #### [facility] [address] [place], [address] Globulin (S) [Mass/Vol] 4.6 g/dL High 2.2-4.2 [facility] Comment on above: Order Comment: Order Date: 12/13/24 Order Info: 0786-1 - CMP Order Info: [id number] - LIPID Order Info: [id number] - TSH Performed By: #### L 100.0100, L500.4050, L502.0250, L506.1000, L500.4100, L501.9520, L501.9985, L509.1000, L101.9900 #### [facility] [address] [place], [address] Glucose [Mass/Vol] 96 mg/dL Normal 74-106 [facility] Comment on above: Order Comment: Order Date: 12/13/24 Order Info: 0786- - CMP Order Info: [id number] - LIPID Order Info: [id number] - TSH Performed By: #### L 100.0100, L500.4050, L502.0250, L506.1000, L500.4100, L501.9520, L501.9985, L509.1000, L101.9900 #### [facility] [address] [place], [address] Potassium [Moles/Vol] 4.3 mmol/L Normal 3.5-5.[address] [facility] Comment on above: Order Comment: Order Date: 12/13/24 Order Info: 0786-1 - CMP Order Info: [id number] - LIPID Order Info: [id number] - TSH Performed By: #### L 100.0100, L500.4050, L502.0250, L506.1000, L500.4100, L501.9520, L501.9985, L509.1000, L101.9900 #### [facility] [address] [place], [address] Sodium [Moles/Vol] 137 mmol/L Normal 136-145 [facility] Comment on above: Order Comment: Order Date: 12/13/24 Order Info: 0786-1 - CMP Order Info: [id number] - LIPID Order Info: [id number] - TSH Performed By: #### L 100.0100, L500.4050, L502.0250, L506.1000, L500.4100, L501.9520, L501.9985, L509.1000, L101.9900 #### [facility] [address] [place], [place], [address] T PROT 7.7 g/dL Normal 6.4-8.2 [facility] Comment on above: Order Comment: Order Date: 12/13/24 Order Info: 0786- - CMP Order Info: [id number] - LIPID Order Info: [id number] - TSH Performed By: #### L 100.0100, L500.4050, L502.0250, L506.1000, L500.4100, L501.9520, L501.9985, L509.1000, L101.9900 #### [facility] [address] [place], [address] Urea nitrogen [Mass/Vol] 16 mg/dL Normal 7-18 [facility] Comment on above: Order Comment: Order Date: 12/13/24 Order Info: 0786-1 - CMP Order Info: [id number] - LIPID Order Info: [id number] - TSH Performed By: #### L 100.0100, L500.4050, L502.0250, L506.1000, L500.4100, L501.9520, L501.9985, L509.1000, L101.9900 #### [facility] [address] [place], [place], [id number] Erythrocyte Sed Rateon 12-19 SED RATE 37 mm/hr High 0-30 [facility] Comment on above: Order Comment: Order Date: 12/13/24 Order Info: 0184-1 - CBCD Order Info: [id number] - SED Performed By: #### L 100.0100, L500.4050, L502.0250, L506.1000, L500.4100, L501.9520, L501.9985, L509.1000, L101.9900 #### [facility] [address] [place], [place], [address] (234) Hemoglobin A1con 12-19-2024 HbA1c (Bld) [Mass fraction] 5.9 % High 3.8-5.6 [facility] Comment on above: Order Comment: Order Date: 12/13/24 Order Info: [id number] - A1C Result Comment: Norm al < 5.7 % Prediabetic 5.7 - 6.4 % Diabetic >or= 6.5 % Please note range changes. Performed By: #### L 100.0100, L500.4050, L502.0250, L506.1000, L500.4100, L501.9520, L501.9985, L509.1000, L101.9900 #### [facility] [address] [place], [address] Lipid Profileon 12-19-2024 Cholesterol [Mass/Vol] 150 mg/dL Normal 200 [facility] Comment on above: Order Comment: Order Date: 12/13/24 Order Info: 0786-1 - CMP Order Info: [id number] - LIPID Order Info: [id number] - TSH Result Comment: <200 mg/dL Desirable 200-240 mg/dL Borderline >240 mg/dL High Risk Performed By: #### L 100.0100, L500.4050, L502.0250, L506.1000, L500.4100, L501.9520, L501.9985, L509.1000, L101.9900 #### [facility] [address] [place], [address] Cholesterol in HDL [Mass/Vol] 73 mg/dL Normal [facility] Comment on above: Order Comment: Order Date: 12/13/24 Order Info: 0786-1 - CMP Order Info: [id number] - LIPID Order Info: [id number] - TSH Result Comment: The drugs N-Acetylcysteine and Metamizole may falsely depress this assay. Reference Range HDL <40 mg/dL Low HDL Cholesterol HDL >or= 60 mg/dL High HDL Cholesterol Performed By: #### L 100.0100, L500.4050, L502.0250, L506.1000, L500.4100, L501.9520, L501.9985, L509.1000, L101.9900 #### [facility] [address] [place], [address] Cholesterol in LDL [Mass/Vol] 62 mg/dL Normal 0-130 [facility] Comment on above: Order Comment: Order Date: 12/13/24 Order Info: 0786- - CMP Order Info: [id number] - LIPID Order Info: [id number] - TSH Performed By: #### L 100.0100, L500.4050, L502.0250, L506.1000, L500.4100, L501.9520, L501.9985, L509.1000, L101.9900 #### [facility] [address] [place], [address] Cholesterol in VLDL [Mass/Vol] 15 mg/dL Normal 5-40 [facility] Comment on above: Order Comment: Order Date: 12/13/24 Order Info: 0786- - CMP Order Info: [id number] - LIPID Order Info: [id number] - TSH Performed By: #### L 100.0100, L500.4050, L502.0250, L506.1000, L500.4100, L501.9520, L501.9985, L509.1000, L101.9900 #### [facility] [address] [place], [address] Triglyceride [Mass/Vol] 75 mg/dL Normal [facility] Comment on above: Order Comment: Order Date: 12/13/24 Order Info: 0786- - CMP Order Info: [id number] - LIPID Order Info: [id number] - TSH Result Comment: The drugs N-Acetylcysteine and Metamizole may falsely depress this assay. Serum Triglycerides Reference Interval Normal <150 mg/dL Borderline high 150 - 199 mg/dL High 200 - 499 mg/dL Very High > or = 500 mg/dL Performed By: #### L 100.0100, L500.4050, L502.0250, L506.1000, L500.4100, L501.9520, L501.9985, L509.1000, L101.9900 #### [facility] [address] [place], [address] Microalb:Creat Ratio,Random URon 12-19-2024 Creatinine [Mass/Vol] 71.60 mg/dL Normal NO RAN GE EST. [facility] Comment on above: Order Comment: Order Date: 12/13/24 Order Info: [id number] - MIACRE Performed By: #### L 100.0100, L500.4050, L502.0250, L506.1000, L500.4100, L501.9520, L501.9985, L509.1000, L101.9900 #### [facility] [address] [place], [address] MALB:CRE 27.8 mg/g CRE Normal <30 mg/g CRE [facility] Comment on above: Order Comment: Order Date: 12/13/24 Order Info: [id number] - MIACRE Performed By: #### L 100.0100, L500.4050, L502.0250, L506.1000, L500.4100, L501.9520, L501.9985, L509.1000, L101.9900 #### [facility] [address] [place], [address] MICROALBUMIN,UR 19.9 mg/L Normal NO RANGE EST. [facility] Comment on above: Order Comment: Order Date: 12/13/24 Order Info: [id number] - MIACRE Performed By: #### L 100.0100, L500.4050, L502.0250, L506.1000, L500.4100, L501.9520, L501.9985, L509.1000, L101.9900 #### [facility] [address] [place], [address] PTHINon 12-19-2024 PTH 54.7 pg/mL Normal 18.4-80.1 [facility] Comment on above: Order Comment: Order Date: 12/13/24 Order Info: [id number] - PTHIN Performed By: #### L 100.0100, L500.4050, L502.0250, L506.1000, L500.4100, L501.9520, L501.9985, L509.1000, L101.9900 #### [facility] [address] [place], [address] Thyroid Stim Hormone (TSH)on 12-19-2024 TSH 2.030 uIU/mL Normal 0.358-3.740 [facility] Comment on above: Order Comment: Order Date: 12/13/24 Order Info: [id number] - CMP Order Info: [id number] - LIPID Order Info: [id number] - TSH Performed By: #### L 100.0100, L500.4050, L502.0250, L506.1000, L500.4100, L501.9520, L501.9985, L509.1000, L101.9900 #### [facility] [address] [place], [address] Vitamin D,25 Hydroxyon 12-19 Vitamin D 25-OH 42.7 ng/mL Normal [facility] Comment on above: Order Comment: Order Date: 12/13/24 Order Info: [id number] - VITD25 Result Comment: Bethany min D 25(OH) Status Range Deficiency <20 ng/mL (50nmol/L) Insufficiency 20 - 30 ng/mL (50 - 75 nmol/L) Sufficiency 30 - 100 ng/mL (75 - 250 nmol/L) Toxicity >100 ng/mL (>250 nmol/L) Performed By: #### L 100.0100, L500.4050, L502.0250, L506.1000, L500.4100, L501.9520, L501.9985, L509.1000, L101.9900 #### [facility] [address] [place], [address] Venous Duplex US, Unilateral on 05-27-2024 Venous Duplex US, Unilateral [facility] [address] [place] [address] Venous Duplex US, Unilateral 05/27/24 1104 MR#: [id number] Acct: [id number] Name: VICKIE GONZALEZ Rep #: [id number] : 1955 68 From: Cristhian Coleman MD [...] Dictated: 05/27/24 1104 Date Transcribed: 05/27/24 1227 [employer]older: Signed Normal [facility] XR KNEE RIGHT 3 VIEWS [...] within normal limits. IMPRESSION: Intact knee replacement. /[facility] Workstation ID: [id number] Dictated by: ROBE COLIN on ThuMar 25, 2024 4:34:08 PM EDT Transcribed by: JAY GUADARRAMA on ThuMar 25, 2024 4:53:17 PM EDT Finalized by: ROBE COLIN on ThuMar 25, 2024 5:26:19 PM EDT Normal [facility] Comment on above: [...] ThuJan 26, 2024 4:57:48 PM EST Normal [facility] Comment on above: Order Comment: Injur y/Trauma [...] unremarkable. IMPRESSION: Severe right knee tricompartmental osteoarthritis. [facility] Workstation ID: [id number] Dictated by: ROBE COLIN on ThuJan 07, 2024 2:25:02 PM EST Transcribed by: LUCY NEWELL on ThuJan 07, 2024 2:25:02 PM EST Finalized by: ROBE COLIN on ThuJan 07, 2024 10:52:02 PM EST Normal [facility] Comment on above: Order Comment: Nicolas ayers only schedule at [facility]. Do not schedule Ct scan appointment with patient. Ordering Doctor's office will call to schedule Ct scan appointment. Injury/Trauma or Illness?:Illness/Other How long have you had these symptoms (acute/chronic)?:Acute Reason for exam?:pre operative for upcoming Rt TKR Type of Exam?:Initial Additional signs and symptoms?:. Basophil percentageOrdered B y: Kirill Newell on 11-12-2023 Bilirubin [Mass/Vol] 0.70 mg/dL 0.20-1.00 [facility] Comment on above: For patients on eltr ombopag therapy, use of [facility] [place] TBIL is not recommended. Chloride [Moles/Vol] 107 mmol/L 98-107 [facility] Glucose [Mass/Vol] 97 mg/dL 74-106 [facility] Potassium [Moles/Vol] 4.3 mmol/L 3.5-5.[address] [facility] Protein [Mass/Vol] 8.7 g/dL 6.4-8.2 [facility] Sodium [Moles/Vol] 140 mmol/L 136-145 [facility] WBC (Bld) [#/Vol] 7.7 10*3/uL 4.4-11.0 [facility] Blood erythrocytes count (nu mber/volume)Ordered By: Kirill Newell on 11-12-2023 RBC (Bld) [#/Vol] 4.16 10*6/uL 4.2-5.4 [facility] Blood hemoglobin measurement (mass/volume)Ordered By: Kirill Newell on 11-12-2023 Hemoglobin (Bld) [Mass/Vol] 11.5 g/dL 12.0-15.0 [facility] Blood platelet mean volumeOr dered By: Kirill Newell on 11-12-2023 Platelet mean volume (Bld) [Entitic vol] 11.2 fL 6.2-12.0 [facility] Determination of erythrocyte mean corpuscular volume (MCV)Ordered By: Kirill Newell on 11-12-2023 MCV (RBC) [Entitic vol] 89.2 fL 81-99 [facility] Erythrocyte sedimentation ra teOrdered By: Kirill Newell on 11-12-2023 ESR (Bld) [Velocity] 48 mm/h 0-30 [facility] Hematocrit Auto (Bld) [Volum e fraction]Ordered By: Kirill Newell on 11-12-2023 Hematocrit (Bld) [Volume fraction] 37.1 % 37-47 [facility] - Chemistry and C hemistry - challengeOrdered By: Kirill Newell on 11-12-2023 ALP [Catalytic activity/Vol] 110 U/L 45-117 [facility] ALT [Catalytic activity/Vol] 21 U/L 13-56 [facility] CO2 [Moles/Vol] 28.0 mmol/L 21.0-32.0 [facility] Globulin (S) [Mass/Vol] 5.5 g/dL 2.2-4.2 [facility] Urea nitrogen/Creatinine [Mass ratio] 19.0 mg/mg 10-20 [facility] - Hematology and Cell countsOrdered By: Kirill Newell on 11-12-2023 Erythrocyte distribution width (RBC) [Entitic vol] 51.8 fL 35.1-43.9 [facility] Erythrocyte distribution width (RBC) [Ratio] 15.9 % 11.6-14.6 [facility] MCH (RBC) [Entitic mass] 27.6 pg 27.0-32.0 [facility] MCHC Auto (RBC) [Mass/Vol]Or dered By: Kirill Newell on 11-12-2023 MCHC (RBC) [Mass/Vol] 31.0 g/dL 32-[address] [facility] No Panel InformationOrdered By: Kirill Newell on 11-12-2023 Addendum Document Comment . [facility] Comment on above: The SPE pattern demo nstrates elevation of regionscontaining acute phase proteins suggesting anacute/subacute inflammatory response. Some conditions inwhich this pattern has been observed include: bacterial,viral or parasitic infection; mechanical, physical orchemical trauma; and cardiac failure. The gamma globulinregion is unremarkable and evidence of monoclonal proteinis not apparent.Performed at: [email or web address] [facility] [address] [id number] Director: Ha Gutierrez PhD, Phone: [phone] Xewed-2-Samafhbrl 0.4 g/dL 0.0-0.4 [facility] Aspcx-8-Bxfvcnecp 1.2 g/dL 0.4-1.0 [facility] Anti-Nuclear Antibody Screen Negative Negative [facility] Comment on above: Performed at: [facility] [address] [id number] Director: Ha Gutierrez PhD, Phone: [phone] Estimated GFR (MDRD) Amer 86 mL/min >60 [facility] Comment on above: GFR Calc Estimated GFR (MDRD) Non-Af Amer 71 mL/min >60 [facility] Comment on above: Non- GFR Calc Gamma Globulins 1.8 g/dL 0.4-1.8 [facility] Parathyroid Hormone (Intact) 69.9 pg/mL 18.4-80.1 [facility] Urine Microalbumin/Creatinine Ratio 70.0 mg/g CRE <30 [facility] Vitamin D 25-Hydroxy 37.3 ng/mL [facility] Comment on above: Vitamin D 25(OH) Sta tus Range Deficiency <20 ng/mL (50nmol/L) Insufficiency 20 - 30 ng/mL (50 - 75 nmol/L) Sufficiency 30 - 100 ng/mL (75 - 250 nmol/L) Toxicity >100 ng/mL (>250 nmol/L) Platelets bldOrdered By: Theresa Newell on 11-12-2023 Platelets (Bld) [#/Vol] 272 10*3/uL 150-450 [facility] Protein Fractions Elph [Inte rp]Ordered By: Kirill Newell on 11-12-2023 Protein Fractions [Interp] Comment . [facility] Comment on above: Protein electrophore sis scan will follow via computer,mail, or medical assembly delivery. Serum albumin to globulin ra allen by protein electrophoresisOrdered By: Kirill Newell on 11-12-2023 Albumin/Globulin Elph [Mass ratio] 0.7 0.7-1.7 [facility] Serum globulin measurement ( mass/volume)Ordered By: Kirill Newell on 11-12-2023 Globulin (S) [Mass/Vol] 4.6 g/dL 2.2-3.9 [facility] Serum or plasma C reactive p rotein measurement (mass/volume)Ordered By: Kirill Newell on 11-12-2023 CRP [Mass/Vol] 15.50 mg/L 0.0-3.0 [facility] Comment on above: C-Reactive Protein ( CRP) provides useful information for thediagnosis, therapy and monitoring of inflammatory processesand associated diseases. For the evaluation of Relative Riskfor Cardiovascular Disease, a High Sensitivity CRP (HSCRP)should be ordered. Serum or plasma albumin erasmo urement (mass/volume)Ordered By: Kirill Newell on 11-12-2023 Albumin [Mass/Vol] 3.2 g/dL 2.9-4.4 [facility] Serum or plasma albumin/glob ulin mass ratioOrdered By: Kirill Newell 11-12-2023 Albumin/Globulin [Mass ratio] 0.6 {ratio} 0.9-2.4 [facility] Serum or plasma beta globuli n measurement by electrophoresis (mass/volume)Ordered By: Kirill Newell 11-12-2023 Beta globulin Elph [Mass/Vol] 1.2 g/dL 0.7-1.3 [facility] Serum or plasma calcium erasmo urement (mass/volume)Ordered By: Kirill Newell 11-12-2023 Calcium [Mass/Vol] 9.1 mg/dL 8.5-10.1 [facility] Serum or plasma creatinine m easurement (mass/volume)Ordered By: Kirill Newell on 11-12-2023 Creatinine [Mass/Vol] 0.84 mg/dL 0.55-1.[address] [facility] Comment on above: The validity of the calculated GFR & GFRAA in patients over 70 years has not been determined. Clinical correlation is essential. Serum or plasma protein mono clonal measurement by electrophoresis (mass/volume)Ordered By: Kirill Newell on 11-12-2023 Protein.monoclonal Elph [Mass/Vol] Not Observed g/dL Not Observed [facility] Serum or plasma urea nitroge n measurement (mass/volume)Ordered By: Kirill Newell on 11-12-2023 Urea nitrogen [Mass/Vol] 16 mg/dL 7-18 [facility] Serum rheumatoid factor dete ctionOrdered By: Kirill Newell on 11-12-2023 Rheumatoid factor Ql (S) < 10.0 IU/mL <15 [facility] Thin prep Papanicolaou smear with manual screeningOrdered By: Kirill Newell on 11-12-2023 Thin prep Papanicolaou smear with manual screening 26 U/L 15-37 [facility] Thin prep Papanicolaou smear with manual screening 5 5-15 [facility] Thin prep Papanicolaou smear with manual screening 156.0 mg/L NO RANGE EST. [facility] Total protein bloodOrdered B y: Kirill Newell on 11-12-2023 Protein [Mass/Vol] 7.8 g/dL 6.0-8.5 [facility] Urine creatinine measurement (mass/volume)Ordered By: Kirill Newell on 11-12-2023 Creatinine (U) [Mass/Vol] 223.00 mg/dL NO RANGE EST. [facility] Whole blood hemoglobin A1c/t otal hemoglobin ratio (mass fraction)Ordered By: Kirill Newell on 11-12-2023 HbA1c (Bld) [Mass fraction] 5.7 % 3.8-5.6 [facility] Comment on above: Normal < [...] right knee. The right knee shows severe zizv-ah-qpys narrowing with endplate sclerosis and endplate osteophytes and about 7 mm of lateral subluxation of the tibial plateau in relationship to the distal femur associated with varus angulation of the knee. There are osteophytes along the lateral joint compartment and imyddwqi-rx-sjbokx arthritic changes of the patellofemoral joint. There is likely a small suprapatellar joint effusion. No acute fracture is identified. Total left knee arthroplasty is in place. No radiographic signs of hardware complications. IMPRESSION: 1. Tricompartmental degenerative changes of the right knee, including severe vndl-re-agrl osteoarthritis of the medial joint compartment with varus angulation. 2. No acute osseous abnormalities identified. [employer] Workstation ID: [id number] Dictated by: YOSELYN PETE on ThuSep 15, 2023 10:04:15 AM EDT Transcribed by: GERALD DYER on ThuSep 15, 2023 10:28:27 AM EDT Finalized by: YOSELYN PETE on ThuSep 15, 2023 2:48:38 PM EDT Normal [facility] Comment on above: Order Comment: Injur y/Trauma or Illness?:Illness/Other How long have you had these symptoms (acute/chronic)?:Chronic Reason for exam?:pain History of cancer?:/ / Surgeries, chemotherapy, or radiation?:/ Type of Exam?:Initial Additional signs and symptoms?:na ECG 12 Leadon 01-21-2023 Atrial Rate [facility] [place] [facility] P-[facility] Interval [facility] Q-T Interval [facility] Q-T Interval (corrected) [facility] QRS Duration [facility] QTC Calculation (Bezet) [facility] [place] [facility] [place] [facility] ECHOCARDIOGRAM COMPLETEon ECHOCARDIOGRAM COMPLETE Patient Info Name: VICKIE GONZALEZ Age: 67 years : 1955 Gender: Female Ht: 167 cm Wt: 105 kg BSA: 2.26 m2 HR: 1 bpm BP: 157 / 89 mmHg Technical Quality: Fair Exam Date: 01/21/2023 9:06 AM Patient Status: Outpatient Tick Inspector: Shirin Rabago, MILLER, RDCS (PE, AE) Exam Type: ECHOCARDIOGRAM COMPLETE Study Info Indications - Valve disease/murmur Attending Physician: ANGELICA RANDALL Referring Physician: [id number]; [id number] BMI: 37.73 kg/m2 Summary 1. Left ventricular [...] Value Normal - PV Regurgitation Doppler - FL Peak End Diastolic Velocity 128 cm/s Mitral Valve - Name Value Normal - MV Doppler - MV Peak Velocity 1. (more content not included)... [facility] ECG 12 LeadOrdered By: Virginie Guerra on 02-19-2022 Atrial Rate [facility] [place] [facility] P-R Interval [facility] Q-T Interval [facility] Q-T Interval (corrected) [facility] QRS Duration [facility] QTC Calculation (Bezet) [facility] [place] [facility] [place] [facility] Ventricular Rate [facility] Basic metabolic 2000 panelon 01-22-2022 Anion gap [Moles/Vol] 15 mmol/L 10 - 2 0 mmol/L [facility] Calcium [Mass/Vol] 8.8 mg/dL 8.4 - 10. 2 mg/dL [facility] Chloride [Moles/Vol] 104 mmol/L 98 - 10 8 mmol/L [facility] Creatinine [Mass/Vol] 0.75 mg/dL 0.60 - 1.20 [facility] GFR/1.73 sq M.predicted CKD-EPI (S/P/Bld) [Vol rate/Area] 83 >=60 mL/min/1.73 m2 [facility] Glucose [Mass/Vol] 90 mg/dL 65 - 99 mg/dL [facility] HCO3 [Moles/Vol] 24 mmol/L 21 - 32 mmol/L [facility] Interpretation and review of laboratory results Normal [facility] Potassium [Moles/Vol] 4.3 mmol/L 3.5 - 5.1 mmol/L [facility] Sodium [Moles/Vol] 139 mmol/L 135 - 145 mmol/L [facility] Urea nitrogen [Mass/Vol] 10 mg/dL 8 - 25 mg/d L [facility] Urea nitrogen/Creatinine [Mass ratio] 13.3 mg/mg [facility] The eGFR should be u sed for monitoring renal function only and not for medication dosing. [facility] CBC panel Auto (Bld)on 01-22 Erythrocyte distribution width (RBC) [Entitic vol] 15.9 % High 11.6 - 14.8 % [facility] Hematocrit (Bld) [Volume fraction] 33.2 % Low 36.0 - 46.0 % [facility] Hemoglobin (Bld) [Mass/Vol] 10.4 g/dL Low 12.0 - 16.0 g/dL [facility] Interpretation and review of laboratory results Abnormal [facility] MCH (RBC) [Entitic mass] 27.2 pg 26. 0 - 34.0 pg [facility] MCHC (RBC) [Mass/Vol] 31.3 g/dL 31.0 - 37.0 g/dL [facility] MCV (RBC) [Entitic vol] 86.9 fL 80.0 - 100.0 fL [facility] Nucleated RBC (Bld) [#/Vol] 0.00 10*3/uL [facility] Nucleated RBC/100 WBC (Bld) [Ratio] 0.0 % [facility] Platelet mean volume (Bld) [Entitic vol] 11.9 fL 9.4 - 12.4 fL [facility] Platelets (Bld) [#/Vol] 176 10*3/uL [facility] RBC (Bld) [#/Vol] 3.82 10*6/uL Low [facility] WBC (Bld) [#/Vol] 5.53 10*3/uL [facility] ECG 12 Leadon 01-22-2022 Atrial Rate 65 BPM [facility] [place] 64 degrees [facility] P-R Interval 300 ms [facility] Q-T Interval 444 ms [facility] QRS Duration 94 ms [facility] QTC Calculation (Bezet) 461 ms [facility] [place] 10 degrees [facility] T [place] 90 degrees [facility] Ventricular Rate 65 BPM [facility] Sinus rhythm with 1s t degree AV block Otherwise normal ECG Confirmed by SONA SEGURA MD ([id number]) on 01/22/2022 9:10:34 AM MUSE [facility] Atrial Rate 64 BPM [facility] P [place] 48 degrees [facility] P-R Interval 272 ms [facility] Q-T Interval 438 ms [facility] QRS Duration 96 ms [facility] QTC Calculation (Bezet) 451 ms [facility] [place] 34 degrees [facility] T [place] 89 degrees [facility] Ventricular Rate 64 BPM [facility] Sinus rhythm with 1s t degree AV block Nonspecific T wave abnormality Abnormal ECG When compared with ECG of 21-JAN-2022 12:50, (unconfirmed) No significant change was found Confirmed by SONA SEGURA MD ([id number]) on 01/22/2022 9:08:00 AM MUSE [facility] APTTon 01-21-2022 aPTT Coag (Bld) [Time] 29 s [facility] Basic metabolic 2000 panelon 01-21-2022 Anion gap [Moles/Vol] 16 mmol/L 10 - 2 0 mmol/L [facility] Calcium [Mass/Vol] 8.5 mg/dL 8.4 - 10. 2 mg/dL [facility] Chloride [Moles/Vol] 106 mmol/L 98 - 10 8 mmol/L [facility] Creatinine [Mass/Vol] 0.67 mg/dL 0.60 - 1.20 [facility] GFR/1.73 sq M.predicted CKD-EPI (S/P/Bld) [Vol rate/Area] 91 >=60 mL/min/1.73 m2 [facility] Glucose [Mass/Vol] 110 mg/dL High 65 - 99 mg/dL [facility] HCO3 [Moles/Vol] 21 mmol/L 21 - 32 mmol/L [facility] Interpretation and review of laboratory results Abnormal [facility] Potassium [Moles/Vol] 3.9 mmol/L 3.5 - 5.1 mmol/L [facility] Sodium [Moles/Vol] 139 mmol/L 135 - 145 mmol/L [facility] Urea nitrogen [Mass/Vol] 14 mg/dL 8 - 25 mg/d L [facility] Urea nitrogen/Creatinine [Mass ratio] 20.9 mg/mg High [facility] The eGFR should be u sed for monitoring renal function only and not for medication dosing. [facility] Basic metabolic 2000 panelOr dered By: Marcial Thomas on 01-21-2022 Anion gap [Moles/Vol] 17 mmol/L 10 - 2 0 mmol/L [facility] Calcium [Mass/Vol] 8.9 mg/dL 8.4 - 10. 2 mg/dL [facility] Chloride [Moles/Vol] 106 mmol/L 98 - 10 8 mmol/L [facility] Creatinine [Mass/Vol] 0.77 mg/dL 0.60 - 1.20 [facility] GFR/1.73 sq M.predicted CKD-EPI (S/P/Bld) [Vol rate/Area] 80 >=60 mL/min/1.73 m2 [facility] Glucose [Mass/Vol] 94 mg/dL 65 - 99 mg/dL [facility] HCO3 [Moles/Vol] 23 mmol/L 21 - 32 mmol/L [facility] Interpretation and review of laboratory results Normal [facility] Potassium [Moles/Vol] 4.2 mmol/L 3.5 - 5.1 mmol/L [facility] Comment on above: Slightly Hemolyzed Sodium [Moles/Vol] 142 mmol/L 135 - 145 mmol/L [facility] Urea nitrogen [Mass/Vol] 14 mg/dL 8 - 25 mg/d L [facility] Urea nitrogen/Creatinine [Mass ratio] 18.2 mg/mg [facility] The eGFR should be u sed for monitoring renal function only and not for medication dosing. [facility] CBC panel Auto (Bld)on 01-21 Erythrocyte distribution width (RBC) [Entitic vol] 15.7 % High 11.6 - 14.8 % [facility] Hematocrit (Bld) [Volume fraction] 32.7 % Low 36.0 - 46.0 % [facility] Hemoglobin (Bld) [Mass/Vol] 10.2 g/dL Low 12.0 - 16.0 g/dL [facility] Interpretation and review of laboratory results Abnormal [facility] MCH (RBC) [Entitic mass] 27.1 pg 26. 0 - 34.0 pg [facility] MCHC (RBC) [Mass/Vol] 31.2 g/dL 31.0 - 37.0 g/dL [facility] MCV (RBC) [Entitic vol] 86.7 fL 80.0 - 100.0 fL [facility] Nucleated RBC (Bld) [#/Vol] 0.00 10*3/uL [facility] Nucleated RBC/100 WBC (Bld) [Ratio] 0.0 % [facility] Platelet mean volume (Bld) [Entitic vol] 11.7 fL 9.4 - 12.4 fL [facility] Platelets (Bld) [#/Vol] 173 10*3/uL [facility] RBC (Bld) [#/Vol] 3.77 10*6/uL Low [facility] WBC (Bld) [#/Vol] 6.65 10*3/uL [facility] Calcium, Ionizedon 2 Calcium.ionized [Mass/Vol] 4.6 mg/dL 4.5 - 5.3 mg/dL [facility] Calcium.ionized [Mass/Vol]on 01-21-2022 Interpretation and review of laboratory results Normal [facility] Echocardiogram limited with contrastOrdered By: Nicol Pittman on 01-21-2022 AV mean gradient 5 mmHg [facility] Work Phone: [facility] Work Phone: Echocardiogram limited with contraston 01-21-2022 Patient Info Name: VICKIE GONZALEZ Age: 66 years : 1955 Gender: Female Ht: 168 cm Wt: 102 kg BSA: 2.22 m2 BP: 144 / 57 mmHg Technical Quality: Fair Exam Date: 01/21/2022 12:12 PM Patient Status: Outpatient Tick Inspector: Jolanta Klein RDCS, ЮЛИЯ Exam Type: ECHOCARDIOGRAM LIMITED WITH CONTRAST Study Info Indications - INTRAOP TAVR Attending Physician: LINDSEY PLUMMER Referring Physician: [id number] Chase; [id number] BMI: 36.32 kg/m2 Summary 1. Limited two-dimensional, [...] Date: 01/21/2022 12:12 PM Patient Status: Outpatient Tick Inspector: Jolanta Klein RDCS, ЮЛИЯ Exam Type: ECHOCARDIOGRAM LIMITED WITH CONTRAST Study Info Indications - INTRAOP TAVR Attending Physician: LINDSEY PLUMMER Referring Physician: [id number]; [id number] BMI: 36.32 kg/m2 Summary 1. Limited two-dimensional, [...] Nicol Pittman DO on 01/21/2022 04:13 PM [facility] Radiology Study observation (narrative) [facility] INR Coag (PPP) [Relative shandra e]on 01-21-2022 Interpretation and review of laboratory results Abnormal [facility] PT Coag (PPP) [Time] 15.5 s [facility] During the induction phase of oral anticoagulation, the INR may not reflect the anticoagulation status of the patient. Therapeutic ranges for INR's are: Most clinical situations: INR 2.0-3.0 Mechanical Prosthetic Valve: INR 2.5-3.5 Critical: INR >5.0 [facility] Laboratory - Blood bankon ABO and Rh group Nom (Bld) 5100 [facility] ABO and Rh group Nom (Bld) Blood group O Rh(D) positive [facility] Magnesiumon 01-21-2022 Magnesium [Mass/Vol] 1.8 mg/dL 1.6 - 2 .4 mg/dL [facility] Magnesium [Mass/Vol]on 01-21 Interpretation and review of laboratory results Normal [facility] No Panel Informationon 01-21 [facility] Cross Match Compatible [facility] Product Code [id number] [facility] Product ID Red Blood Cells [facility] Status Info Ready [facility] POC Venous Blood Gas Panel-P ulmon 01-21-2022 Base excess Calc (BldV) [Moles/Vol] -1.1000 mmol/L [facility] Breath rate setting Ventilator synchronized intermittent mandatory 0 [facility] Calcium.ionized [Mass/Vol] 4.8 mg/dL 4.5 - 5.3 mg/dL [facility] Carboxyhemoglobin (BldA) [Mass fraction] 1.5 <=1.5 % of total Hb [facility] Comment on above: Reference Ranges: [facility] Non-smokers: <1.5% Smokers: 1.5-5.0% Heavy Smokers: 5.0-9.0% Chloride [Moles/Vol] 109 mmol/L High 98 - 10 8 mmol/L [facility] CO2 (BldV) [Partial pressure] 47.4 mm[Hg] [facility] Glucose [Mass/Vol] 109 mg/dL High 65 - 99 mg/dL [facility] HCO3 (Bld) [Moles/Vol] 25.0 mmol/L 24.0 - 28.0 mmol/L [facility] Hematocrit (BldA) [Volume fraction] 29.7 % Low 36.0 - 46.0 % [facility] Hemoglobin (Bld) [Mass/Vol] 9.7 g/dL Low 12.0 - 16.0 g/dL [facility] Inhaled oxygen concentration 0 % [facility] Interpretation and review of laboratory results Abnormal [facility] Lactate [Moles/Vol] 0.4 mmol/L Low 0.6 - 2. 0 mmol/L [facility] Methemoglobin (BldA) [Mass fraction] <1.0 0.0 - 2.0 % [facility] Oxygen (BldV) [Partial pressure] 39 mm[Hg] [facility] Oxygen saturation in Venous blood 69.2 % 40.0 - 70.0 % [facility] Oxyhemoglobin (BldA) [Mass fraction] 67.8 % No established reference range [facility] pH (BldV) 7.33 [pH] [facility] Potassium [Moles/Vol] 3.6 mmol/L 3.5 - 5.1 mmol/L [facility] Result Notification critical results giv en to treating OR anesthesiolo [facility] Sodium [Moles/Vol] 143 mmol/L 135 - 145 mmol/L [facility] Tidal volume setting Ventilator 0 [facility] PT/INRon 01-21-2022 INR Coag (PPP) [Relative time] 1.3 {INR} High [facility] Potassium Levelon 01-21-2022 Potassium [Moles/Vol] 4.5 mmol/L 3.5 - 5.1 mmol/L [facility] Potassium [Moles/Vol]on 01-01 Interpretation and review of laboratory results Normal [facility] Prepare RBC: 4 Unitson 01-21 Product Code [id number] [facility] Unit Number [id number] [facility] Unit Number [id number] [facility] Unit Number [id number] [facility] Unit Number [id number] [facility] XR Chest 1 Viewon 01-21-2022 Status post TAVR Cardiomegaly pulmonary vascular congestion and edema Workstation ID: [id number] [facility] EXAMINATION: ONE XRAY VIEW OF THE CHEST [...] vascular congestion and edema Workstation ID: [id number] [facility] Radiology Study observation (narrative) [facility] XR Chest 1 ViewOrdered By: Malachi Shirley on 01-21-2022 [facility] Work Phone: aPTT Coag (Bld) [Time]on Interpretation and review of laboratory results Normal [facility] Therapeutic range fo r APTT's is 68 - 104 seconds [facility] ECG 12 LeadOrdered By: Virginie Guerra on 01-09-2022 Atrial Rate [facility] [place] [facility] P-R Interval [facility] Q-T Interval [facility] Q-T Interval (corrected) [facility] QRS Duration [facility] QTC Calculation (Bezet) [facility] [place] [facility] [place] [facility] Ventricular Rate [facility] COVID-19, MolecularOrdered B y: Nasreen Jenkins on 01-07-2022 SARS-CoV-2 (COVID-19) RNA MAXIMUS+probe Ql (Resp) Not detected Not Detected [facility] Comment on above: This test was perfor [...] at the following links: For Healthcare Providers: https://www.fda.gov/media/735395/download For Patients: https://www.fda.gov/media/925393/download SARS-CoV-2 (COVID-19) RNA NA A+probe Ql (Resp)Ordered By: Nasreen Jenkins on 01-07-2022 Interpretation and review of laboratory results Normal [facility] ECG 12-LEADOrdered By: Blaine Silveira on 06-10-2021 Atrial Rate [facility] [place] [facility] P-R Interval [facility] Q-T Interval [facility] Q-T Interval (corrected) [facility] QRS Duration [facility] QTC Calculation (Bezet) O [facility]FLeal R [place] [facility] T [place] [facility] Ventricular Rate [facility] Atrial Rate [facility] [place] [facility] P-R Interval [facility] Q-T Interval [facility] Q-T Interval (corrected) [facility] QRS Duration [facility] [place] [facility] [place] [facility] Ventricular Rate [facility] ECHOCARDIOGRAM COMPLETEon Transthoracic Echocardiogram _ Patient: CARLOS Sykes [facility] Rec#: [id number] (Age): 1955(63y) Height: 167.64(cm)/65(i Study Date: 06/14/2019 Weight: 120.66(kg)/265( Room#: BSA: [id number] Type: Loc: Sex: F _ Reading: Silvio Mckeon MD F Referring: BLAINE SILVEIRA L. Tick Inspector: Angelica Lynne RDCS, RVT History: Aortic Valve [...] 16:22:40 by: Silvio Mckeon MD [facility], [facility]14[facility] 4:29 PM EDT Transthoracic Echocardiogram _ Patient: CARLOS Sykes [facility] Rec#: [id number] (Age): 1955(63y) Height: 167.64(cm)/65(i Study Date: 06/14/2019 Weight: 120.66(kg)/265( Room#: BSA: [id number] Type: Loc: Sex: F _ Reading: Silvio Mckeon MD F Referring: BLAINE SILVEIRA L. Tick Inspector: Angelica Lynne [facility], RVT History: Aortic Valve disorder. [...] at 06/14/2019 16:22:40 by: Silvio Mckeon MD [facility] ECG 12-LEADon 06-06-2019 Atrial Rate [facility] [place] [facility] P-R Interval [facility] Q-T Interval [facility] Q-T Interval (corrected) [facility] QRS Duration [facility] QTC Calculation (Bezet) [facility] [place] [facility] [place] [facility] Ventricular Rate [facility] Echocardiogram completeon Echocardiogram complete Transthoracic Echocardiogram _ Patient: CARLOS Sykes [facility] Rec#: [id number] (Age): 1955(62y) Height: 167.64(cm)/65(i Study Date: 01/05/2018 Weight: 109.77(kg)/241( Room#: BSA: [id number] Type: Outpatient Loc: Sex: F _ Reading: Iliana Gomez M.D. Referring: BLAINE SILVEIRA L. Tick Inspector: Angelica Lynne [facility], RVT History: Aortic Valve disorder. [...] by: Iliana Gomez M.D. Invalid Interpretation Code [facility] RAD Echocardiogram complete Interface, Rad I n Heartlab Xper Echopacs - 01/05/2018 2:56 PM EST Transthoracic Echocardiogram _ Patient: CARLOS Sykes [facility] Rec#: [id number] (Age): 1955(62y) Height: 167.64(cm)/65(i Study Date: 01/05/2018 Weight: 109.77(kg)/241( Room#: BSA: [id number] Type: Outpatient Loc: Sex: F _ Reading: Iliana Gomez M.D. Referring: BLAINE SILVEIRA L. Tick Inspector: Angelica Lynne [facility], RVT History: Aortic Valve disorder. [...] by: Iliana Gomez M.D. Invalid Interpretation Code [facility] RAD Vital Signs Date Time Vital Sign Value Performing Clinician Facility 02-12-2024 11:18-0400 Body temperature 98.1 [degF] Kendall Graff PT [facility] 02-12-2024 11:18-0400 Diastolic blood pressure 79 mm[Hg] Kendall Graff PT [facility] 02-12-2024 11:18-0400 Heart rate 78 /min Kendall Graff PT [facility] 02-12-2024 11:18-0400 Respiratory rate 16 /min Kendall Graff PT [facility] 02-12-2024 11:18-0400 SaO2% (BldA) [Mass fraction] 98 % Kendall Graff PT [facility] 02-12-2024 11:18-0400 Systolic blood pressure 124 mm[Hg] Kendall Graff PT [facility] 02-11-2024 08:58-0400 Body temperature 98.8 [degF] Lindsey Centeno RN [facility] 02-11-2024 08:58-0400 Diastolic blood pressure 78 mm[Hg] Lindsey Centeno RN [facility] 02-11-2024 08:58-0400 Heart rate 62 /min Lindsey Centeno RN [facility] 02-11-2024 08:58-0400 Respiratory rate 16 /min Lindsey Villalobososs RN [facility] 02-11-2024 08:58-0400 SaO2% (BldA) [Mass fraction] 99 % Lindsey Villalobososs RN [facility] 02-11-2024 08:58-0400 Systolic blood pressure 132 mm[Hg] Lindsey Centeno RN [facility] 02-10-2024 09:59-0400 Body temperature 97.81 [degF] Cristhian Byrnes [facility] 02-10-2024 09:59-0400 Diastolic blood pressure 70 mm[Hg] Cristhian Thrush [facility] 02-10-2024 09:59-0400 Heart rate 66 /min Cristhian Thrush [facility] 02-10-2024 09:59-0400 Respiratory rate 15 /min Cristhian Thrush [facility] 02-10-2024 09:59-0400 SaO2% (BldA) [Mass fraction] 97 % Cristhian Byrnes [facility] 02-10-2024 09:59-0400 Systolic blood pressure 118 mm[Hg] Cristhian Byrnes [facility] 02-09-2024 09:21-0400 Body temperature 98.2 [degF] Lisa Odell [facility] 02-09-2024 09:21-0400 Diastolic blood pressure 80 mm[Hg] Lisa Odell [facility] 02-09-2024 09:21-0400 Heart rate 85 /min Lisa Odell [facility] 02-09-2024 09:21-0400 Respiratory rate 16 /min Lisa Odell [facility] 02-09-2024 09:21-0400 SaO2% (BldA) [Mass fraction] 98 % Lisa Odell [facility] 02-09-2024 09:21-0400 Systolic blood pressure 142 mm[Hg] Lisa Odell [facility] 02-08-2024 10:30-0400 Body temperature 97.9 [degF] Cristhian Byrnes [facility] 02-08-2024 10:30-0400 Diastolic blood pressure 70 mm[Hg] Cristhian Byrnes [facility] 02-08-2024 10:30-0400 Heart rate 67 /min Cristhian Floresush [facility] 02-08-2024 10:30-0400 Respiratory rate 16 /min Cristhian Floresush [facility] 02-08-2024 10:30-0400 SaO2% (BldA) [Mass fraction] 97 % Cristhian Byrnes [facility] 02-08-2024 10:30-0400 Systolic blood pressure 118 mm[Hg] Cristhian Byrnes [facility] 02-05-2024 10:44-0500 Body temperature 98.49 [degF] Lisa Odell [facility] 02-05-2024 10:44-0500 Diastolic blood pressure 82 mm[Hg] Lisa Odell [facility] 02-05-2024 10:44-0500 Heart rate 77 /min Lisa Odell [facility] 02-05-2024 10:44-0500 Respiratory rate 16 /min Lisa Odell [facility] 02-05-2024 10:44-0500 SaO2% (BldA) [Mass fraction] 98 % Lisa Odell [facility] 02-05-2024 10:44-0500 Systolic blood pressure 150 mm[Hg] Lisa Odell [facility] 02-05-2024 10:09-0500 Body temperature 98.2 [degF] Cristhian Byrnes [facility] 02-05-2024 10:09-0500 Diastolic blood pressure 88 mm[Hg] Cristhian Byrnes [facility] 02-05-2024 10:09-0500 Heart rate 67 /min Cristhian Byrnes [facility] 02-05-2024 10:09-0500 Respiratory rate 15 /min Cristhian Byrnes [facility] 02-05-2024 10:09-0500 SaO2% (BldA) [Mass fraction] 97 % Cristhian Byrnes [facility] 02-05-2024 10:09-0500 Systolic blood pressure 150 mm[Hg] Cristhian Byrnes [facility] 02-03-2024 14:06-0500 Body temperature 97.59 [degF] Siena Rondon RN [facility] 02-03-2024 14:06-0500 Diastolic blood pressure 84 mm[Hg] Siena Rondon RN [facility] 02-03-2024 14:06-0500 Heart rate 76 /min Siena Rondon RN [facility] 02-03-2024 14:06-0500 Respiratory rate 18 /min Siena Rnodon RN [facility] 02-03-2024 14:06-0500 SaO2% (BldA) [Mass fraction] 99 % Siena Rondon RN [facility] 02-03-2024 14:06-0500 Systolic blood pressure 130 mm[Hg] Siena Rondon RN [facility] 02-03-2024 12:32-0500 Body temperature 97.3 [degF] Cristhian Byrnes [facility] 02-03-2024 12:32-0500 Diastolic blood pressure 83 mm[Hg] Cristhian Floresush [facility] 02-03-2024 12:32-0500 Heart rate 70 /min Cristhian Floresush [facility] 02-03-2024 12:32-0500 Respiratory rate 15 /min Cristhian Floresush [facility] 02-03-2024 12:32-0500 SaO2% (BldA) [Mass fraction] 99 % Cristhian Byrnes [facility] 02-03-2024 12:32-0500 Systolic blood pressure 145 mm[Hg] Cristhian Floresush [facility] 02-01-2024 11:30-0500 Body temperature 98.1 [degF] Cristhian Floresush [facility] 02-01-2024 11:30-0500 Diastolic blood pressure 88 mm[Hg] Cristhian Floresush [facility] 02-01-2024 11:30-0500 Heart rate 70 /min Cristhian Floresush [facility] 02-01-2024 11:30-0500 Respiratory rate 15 /min Cristhian Byrnes [facility] 02-01-2024 11:30-0500 SaO2% (BldA) [Mass fraction] 98 % Cristhian Byrnes [facility] 02-01-2024 11:30-0500 Systolic blood pressure 148 mm[Hg] Cristhian Byrnes [facility] 01-28-2024 12:52-0500 Body temperature 98.6 [degF] Kendall Graff PT [facility] 01-28-2024 12:52-0500 Diastolic blood pressure 73 mm[Hg] Kendall Graff PT [facility] 01-28-2024 12:52-0500 Heart rate 69 /min Kendall Graff PT [facility] 01-28-2024 12:52-0500 Respiratory rate 16 /min Kendall Graff PT [facility] 01-28-2024 12:52-0500 SaO2% (BldA) [Mass fraction] 99 % Kendall Graff PT [facility] 01-28-2024 12:52-0500 Systolic blood pressure 142 mm[Hg] Kendall Graff PT [facility] 01-27-2024 10:42-0500 Body temperature 98.6 [degF] iSena Rondon RN [facility] 01-27-2024 10:42-0500 Diastolic blood pressure 82 mm[Hg] Siena Rondon RN [facility] 01-27-2024 10:42-0500 Heart rate 75 /min Siena Rondon RN [facility] 01-27-2024 10:42-0500 Respiratory rate 16 /min Seina Rondon RN [facility] 01-27-2024 10:42-0500 SaO2% (BldA) [Mass fraction] 96 % Siena Rondon RN [facility] 01-27-2024 10:42-0500 Systolic blood pressure 144 mm[Hg] Siena Rondon RN [facility] 01-15-2024 13:12-0500 Body height 167.6 cm Jass Pepe MD Work Phone: [facility] 01-15-2024 13:12-0500 Body mass index (BMI) [Ratio] 37.93 kg/m2 Jass Pepe MD Work Phone: [facility] 01-15-2024 13:12-0500 Body weight 106.59 kg Jass Pepe MD Work Phone: [facility] 01-15-2024 13:12-0500 Diastolic blood pressure 66 mm[Hg] Jass Pepe MD Work Phone: [facility] 01-15-2024 13:12-0500 Heart rate 82 /min Jass Pepe MD Work Phone: [facility] 01-15-2024 13:12-0500 Systolic blood pressure 143 mm[Hg] Jass Pepe MD Work Phone: [facility] 10-20-2023 13:34-0500 Diastolic blood pressure 91 mm[Hg] Blaine Silveira MD Work Phone: [facility] 10-20-2023 13:34-0500 Systolic blood pressure 156 mm[Hg] Blaine Silveira MD Work Phone: [facility] 10-20-2023 13:24-0500 Body height 170.2 cm Blaine Silveira MD Work Phone: [facility] 10-20-2023 13:24-0500 Body mass index (BMI) [Ratio] 37.28 kg/m2 Blaine Silveira MD Work Phone: [facility] 10-20-2023 13:24-0500 Body weight 107.96 kg Blaine Silveira MD Work Phone: [facility] 10-20-2023 13:24-0500 Heart rate 74 /min Blaine Silveira MD Work Phone: [facility] 10-20-2023 13:24-0500 SaO2% (BldA) [Mass fraction] 97 % Blaine Silveira MD Work Phone: [facility] 07-16-2023 09:42-0400 Body mass index (BMI) [Ratio] 36.3 kg/m2 [facility] 07-16-2023 09:42-0400 Body temperature 96.2 [degF] [facility] 07-16-2023 09:42-0400 Diastolic blood pressure 71 mm[Hg] [facility] 07-16-2023 09:42-0400 Heart rate 70 /min [facility] 07-16-2023 09:42-0400 Respiratory rate 16 /min [facility] 07-16-2023 09:42-0400 Systolic blood pressure 174 mm[Hg] [facility] 06-30-2023 00:20-0400 Body weight 102.05 kg [facility] 06-25-2023 10:45-0400 Body height 170.18 cm [facility] 06-25-2023 10:45-0400 Body mass index (BMI) [Ratio] 38.9 kg/m2 [facility] 06-25-2023 10:45-0400 Body temperature 98 [degF] [facility] 06-25-2023 10:45-0400 Body weight 113 kg [facility] 06-25-2023 10:45-0400 Diastolic blood pressure 85 mm[Hg] [facility] 06-25-2023 10:45-0400 Heart rate 74 /min [facility] 06-25-2023 10:45-0400 Respiratory rate 14 /min [facility] 06-25-2023 10:45-0400 SaO2% (BldA) [Mass fraction] 98 % [facility] 06-25-2023 10:45-0400 Systolic blood pressure 206 mm[Hg] [facility] 06-25-2023 09:48-0400 Body mass index (BMI) [Ratio] 36.3 kg/m2 [facility] 06-25-2023 09:48-0400 Body temperature 97 [degF] [facility] 06-25-2023 09:48-0400 Diastolic blood pressure 101 mm[Hg] [facility] 06-25-2023 09:48-0400 Heart rate 82 /min [facility] 06-25-2023 09:48-0400 Respiratory rate 20 /min [facility] 06-25-2023 09:48-0400 Systolic blood pressure 206 mm[Hg] [facility] 05-30-2023 01:32-0400 Body weight 102.05 kg [facility] 05-28-2023 09:48-0400 Body mass index (BMI) [Ratio] 36.3 kg/m2 [facility] 05-28-2023 09:48-0400 Body temperature 96.5 [degF] [facility] 05-28-2023 09:48-0400 Diastolic blood pressure 76 mm[Hg] [facility] 05-28-2023 09:48-0400 Heart rate 78 /min [facility] 05-28-2023 09:48-0400 Respiratory rate 18 /min [facility] 05-28-2023 09:48-0400 Systolic blood pressure 186 mm[Hg] [facility] 04-30-2023 00:46-0400 Body weight 102.05 kg [facility] 04-23-2023 09:49-0400 Body mass index (BMI) [Ratio] 36.3 kg/m2 [facility] 04-23-2023 09:49-0400 Diastolic blood pressure 101 mm[Hg] [facility] 04-23-2023 09:49-0400 Heart rate 73 /min [facility] 04-23-2023 09:49-0400 Systolic blood pressure 169 mm[Hg] [facility] 04-23-2023 09:23-0400 Body temperature 96.6 [degF] [facility] 04-23-2023 09:23-0400 Respiratory rate 18 /min [facility] 04-16-2023 08:58-0400 Body height 167.64 cm [facility] 04-16-2023 08:58-0400 Body weight 102.05 kg [facility] 01-21-2023 09:01-0500 Body height 167.6 cm Angelica Dye [employer]ATE SUPER[employer]OR Work Phone: [facility] 01-21-2023 09:01-0500 Body mass index (BMI) [Ratio] 38.76 kg/m2 Angelica Dye [employer] SUPER[employer]OR Work Phone: [facility] 01-21-2023 09:01-0500 Body temperature 98.01 [degF] Angelica Dye [employer] SUPER[employer] Work Phone: [facility] 01-21-2023 09:01-0500 Body weight 108.92 kg Angelica Dye [employer] SUPER[employer]OR Work Phone: [facility] 01-21-2023 09:01-0500 Diastolic blood pressure 84 mm[Hg] Angelica Dye [employer] SUPER[employer]OR Work Phone: [facility] 01-21-2023 09:01-0500 Heart rate 67 /min Angelica Dye [employer] SUPER[employer] Work Phone: [facility] 01-21-2023 09:01-0500 Respiratory rate 16 /min Angelica Dye [employer] SUPER[employer] Work Phone: [facility] 01-21-2023 09:01-0500 SaO2% (BldA) [Mass fraction] 98 % Angelica Dye [employer] SUPER[employer] Work Phone: [facility] 01-21-2023 09:01-0500 Systolic blood pressure 198 mm[Hg] Angelica Dye [employer] SUPER[employer] Work Phone: [facility] 02-19-2022 11:13-0400 Diastolic blood pressure 85 mm[Hg] Angelica Dye [employer] SUPER[employer] Work Phone: [facility] 02-19-2022 11:13-0400 Systolic blood pressure 148 mm[Hg] Angelica Dye [employer] SUPER[employer] Work Phone: [facility] 02-19-2022 11:08-0400 Body height 167.6 cm Angelica Dye [employer] SUPER[employer]OR Work Phone: [facility] 02-19-2022 11:08-0400 Body mass index (BMI) [Ratio] 36.97 kg/m2 Angelica Dye [employer] SUPER[employer] Work Phone: [facility] 02-19-2022 11:08-0400 Body temperature 97.7 [degF] Angelica Dye [employer] SUPER[employer] Work Phone: [facility] 02-19-2022 11:08-0400 Body weight 103.9 kg Angelica Dye [employer] SUPER[employer] Work Phone: [facility] 02-19-2022 11:08-0400 Heart rate 69 /min Angelica Dye [employer] SUPER[employer] Work Phone: [facility] 02-19-2022 11:08-0400 Respiratory rate 16 /min Angelica Dye [employer] SUPER[employer] Work Phone: [facility] 02-19-2022 11:08-0400 SaO2% (BldA) [Mass fraction] 98 % Angelica Dye [employer]PER[employer] Work Phone: [facility] 02-03-2022 09:56-0500 Body mass index (BMI) [Ratio] 35.51 kg/m2 Angelica Dye [employer] SUPER[employer] Work Phone: [facility] 02-03-2022 09:56-0500 Body weight 99.79 kg Angelica Dye [employer] SUPER[employer] Work Phone: [facility] 02-03-2022 09:56-0500 Diastolic blood pressure 80 mm[Hg] Angelica Dye [employer] SUPER[employer] Work Phone: [facility] 02-03-2022 09:56-0500 Systolic blood pressure 132 mm[Hg] Angelica Dye [employer] SUPER[employer] Work Phone: [facility] 01-22-2022 07:52-0500 Body temperature 98.01 [degF] Lindsey Plummer MD Work Phone: [facility] 01-22-2022 07:52-0500 Diastolic blood pressure 84 mm[Hg] Lindsey Plummer MD Work Phone: [facility] 01-22-2022 07:52-0500 Heart rate 81 /min Lindsey Plummer MD Work Phone: [facility] 01-22-2022 07:52-0500 Respiratory rate 18 /min Lindsey Plummer MD Work Phone: [facility] 01-22-2022 07:52-0500 SaO2% (BldA) [Mass fraction] 98 % Lindsey Plummer MD Work Phone: [facility] 01-22-2022 07:52-0500 Systolic blood pressure 123 mm[Hg] Lindsey Plummer MD Work Phone: [facility] 01-22-2022 04:08-0500 Body mass index (BMI) [Ratio] 37.28 kg/m2 Lindsey Plummer MD Work Phone: [facility] 01-22-2022 04:08-0500 Body weight 104.78 kg Lindsey Plummer MD Work Phone: [facility] 01-21-2022 11:49-0500 Respiratory rate 0 /min Lindsey Plummer MD Work Phone: [facility] 01-21-2022 08:20-0500 Body height 167.6 cm Lindsey Plummer MD Work Phone: [facility] 01-09-2022 09:44-0500 Body height 167.6 cm Meir Arthur MD Work Phone: [facility] 01-09-2022 09:44-0500 Body mass index (BMI) [Ratio] 37.82 kg/m2 Meir Arthur MD Work Phone: [facility] 01-09-2022 09:44-0500 Body temperature 98.01 [degF] Meir Arthur MD Work Phone: [facility] 01-09-2022 09:44-0500 Body weight 106.3 kg Meir Arthur MD Work Phone: [facility] 01-09-2022 09:44-0500 Diastolic blood pressure 80 mm[Hg] Meir Arthur MD Work Phone: [facility] 01-09-2022 09:44-0500 Heart rate 78 /min Meir Arthur MD Work Phone: [facility] 01-09-2022 09:44-0500 Respiratory rate 18 /min Meir Arthur MD Work Phone: [facility] 01-09-2022 09:44-0500 SaO2% (BldA) [Mass fraction] 97 % Meir Arthur MD Work Phone: [facility] 01-09-2022 09:44-0500 Systolic blood pressure 143 mm[Hg] Meir Arthur MD Work Phone: [facility] 01-09-2022 09:36-0500 Body height 167.6 cm Lindsey Plummer MD Work Phone: [facility] 01-09-2022 09:36-0500 Body mass index (BMI) [Ratio] 37.82 kg/m2 Lindsey Plummer MD Work Phone: [facility] 01-09-2022 09:36-0500 Body temperature 98.01 [degF] Lindsey Plummer MD Work Phone: [facility] 01-09-2022 09:36-0500 Body weight 106.3 kg Lindsey Plummer MD Work Phone: [facility] 01-09-2022 09:36-0500 Diastolic blood pressure 80 mm[Hg] Lindsey Plummer MD Work Phone: [facility] 01-09-2022 09:36-0500 Heart rate 78 /min Lindsey Plummer MD Work Phone: [facility] 01-09-2022 09:36-0500 Respiratory rate 16 /min Lindsey Plummer MD Work Phone: [facility] 01-09-2022 09:36-0500 SaO2% (BldA) [Mass fraction] 97 % Lindsey Plummer MD Work Phone: [facility] 01-09-2022 09:36-0500 Systolic blood pressure 143 mm[Hg] Lindsey Plummer MD Work Phone: [facility] 06-10-2021 11:16-0400 Body height 167.6 cm Blaine Silveira MD Work Phone: [facility] 06-10-2021 11:16-0400 Body mass index (BMI) [Ratio] 36.8 kg/m2 Blaine Silveira MD Work Phone: [facility] 06-10-2021 11:16-0400 Body weight 103.42 kg Blaine Silveira MD Work Phone: [facility] 06-10-2021 11:16-0400 Diastolic blood pressure 73 mm[Hg] Blaine Silveira MD Work Phone: [facility] 06-10-2021 11:16-0400 Heart rate 73 /min Blaine Silveira MD Work Phone: [facility] 06-10-2021 11:16-0400 SaO2% (BldA) [Mass fraction] 98 % Blaine Silveira MD Work Phone: [facility] 06-10-2021 11:16-0400 Systolic blood pressure 148 mm[Hg] Blaine Silveira MD Work Phone: [facility] 06-06-2019 14:33-0400 BMI (Body Mass Index) 42.97 kg/m2 Blaine Silveira [facility] 06-06-2019 14:33-0400 Body weight 120.75 kg Blaine Silveira [facility] 06-06-2019 14:33-0400 BP Diastolic 75 mm[Hg] Blaine Silveira [facility] 06-06-2019 14:33-0400 BP Systolic 159 mm[Hg] Blaine Silveira [facility] 06-06-2019 14:33-0400 Height 167.6 cm Blaine Silveira [facility] 06-06-2019 14:33-0400 Pulse (Heart Rate) 71 /min Blaine Silveira [facility] 06-06-2019 14:33-0400 Pulse Oximetry 96 % Blaine Silveira [facility] Encounters Encounter Date Encounter Type Care Provider Facility Start: 12-19-2024 End: 12-19-2024 ambulatory Kirill Newell Facility:[facility] Start: 05-27-2024 ambulatory Kirill Newell Facility:[facility] Start: 05-27-2024 End: 05-27-2024 ambulatory Kirill [facility] Facility:[facility] Start: 03-25-2024 End: 03-29-2024 ambulatory JASS PEPE [facility] Ambulatory Start: 03-25-2024 End: 03-25-2024 Postop follow up visit related to original px Jass Pepe MD Work Phone: [facility] Comment on above: Status post total ri ght knee replacement (Primary Dx) Start: 03-11-2024 End: 03-15-2024 ambulatory [facility] Start: 03-11-2024 End: 03-11-2024 ambulatory Jass Pepe MD Work Phone: [facility] Comment on above: Status post total ri ght knee replacement (Primary Dx) Start: 03-09-2024 End: 03-13-2024 ambulatory JASS COLE [facility] Start: 03-09-2024 End: 03-09-2024 ambulatory Jass Pepe MD Work Phone: [facility] Comment on above: Status post total ri ght knee replacement (Primary Dx) Start: 03-07-2024 End: 03-11-2024 ambulatory [facility] Start: 03-07-2024 End: 03-07-2024 ambulatory Jass Pepe MD Work Phone: [facility] Comment on above: Status post total ri ght knee replacement (Primary Dx) Start: 03-04-2024 End: 03-08-2024 [facility] Start: 03-04-2024 End: 03-04-2024 ambulatory [facility] Comment on above: Status post total ri ght knee replacement (Primary Dx) Start: 03-02-2024 End: 03-06-2024 [facility] Start: 03-02-2024 End: 03-02-2024 ambulatory J[facility] Pepe [facility] Comment on above: Status post total ri ght knee replacement (Primary Dx) Start: 02-29-2024 End: 03-04-2024 [facility] Start: 02-29-2024 End: 02-29-2024 ambulatory Jass Pepe MD Work Phone: [facility] Comment on above: Status post total ri ght knee replacement (Primary Dx) Start: 02-26-2024 End: 03-01-2024 [facility] JASS MALDONADO [facility] Start: 02-26-2024 End: 02-26-2024 ambulatory Jass Pepe MD Work Phone: [facility] Comment on above: Status post total ri ght knee replacement (Primary Dx) Start: 02-24-2024 End: 02-28-2024 [facility] Start: 02-24-2024 End: 02-24-2024 ambulatory Jass Pepe MD Work Phone: [facility] Comment on above: Status post total ri ght knee replacement (Primary Dx) Start: 02-22-2024 End: 02-26-2024 [facility] Start: 02-22-2024 End: 02-22-2024 ambulatory Jass Pepe MD Work Phone: [facility] Comment on above: Status post total ri ght knee replacement (Primary Dx) Start: 02-19-2024 End: 02-23-2024 [facility] Start: 02-19-2024 End: 02-19-2024 ambulatory Jass Pepe MD Work Phone: [facility] Comment on above: Status post total ri ght knee replacement (Primary Dx) Start: 02-17-2024 End: 02-21-2024 ambulatory JASS MALDONADO [facility] Start: 02-17-2024 End: 02-17-2024 ambulatory Jass Pepe MD Work Phone: [facility] Comment on above: Status post total ri ght knee replacement (Primary Dx) Start: 02-15-2024 End: 02-19-2024 ambulatory JASS COLE AFSHIN [facility] Start: 02-15-2024 End: 02-15-2024 ambulatory Jass Pepe MD Work Phone: [facility] Comment on above: Status post total ri ght knee replacement Start: 02-12-2024 End: 02-12-2024 [facility] Amb[facility] Start: 02-12-2024 End: 02-12-2024 Postop follow up visit related to original px Jass Peep MD Work Phone: [facility] Comment on above: Status post total ri ght knee replacement (Primary Dx) Start: 02-12-2024 Home visit Kendall Graff PT [facility] Comment on above: PT OASIS DISCHARGE Start: 02-11-2024 End: 02-11-2024 Home visit Lindsey Centeno RN [facility] Comment on above: SN HH NON-OASIS/DISC IPLINE DC Start: 02-10-2024 End: 02-10-2024 Home visit Cristhian Byrnes PROPERTY MANAGEMENT SPECIALIST [facility] Comment on above: PROPERTY MANAGEMENT SPECIALIST ROUTINE VISIT Start: 02-09-2024 End: 02-09-2024 Home visit Lisa Odell POLISHER ALUMINUM [facility] Comment on above: NIGEL HH ROUTINE Start: 02-08-2024 End: 02-08-2024 Refill Jass Pepe MD Work Phone: [facility] Comment on above: Status post total ri ght knee replacement (Primary Dx) PROPERTY MANAGEMENT SPECIALIST ROUTINE VISIT Start: 02-05-2024 End: 02-05-2024 Home visit Cristhian Byrnes [facility] Comment on above: PROPERTY MANAGEMENT SPECIALIST ROUTINE VISIT POLISHER ALUMINUM HH ROUTINE Start: 02-03-2024 End: 02-03-2024 Home visit Cristhian Soniya [facility] Comment on above: PROPERTY MANAGEMENT SPECIALIST ROUTINE VISIT SN HH ROUTINE VISIT Start: 02-01-2024 Documentation procedure Yen gold LPN [facility] Start: 02-01-2024 End: 02-01-2024 Home visit Cristhian Byrnes [facility] Comment on above: PROPERTY MANAGEMENT SPECIALIST ROUTINE VISIT Start: 01-28-2024 End: 01-28-2024 Home visit Kendall Graff PT [facility] Comment on above: PT INITIAL EVALUATIO N Start: 01-27-2024 End: 02-12-2024 ambulatory [facility] Start: 01-27-2024 End: 01-27-2024 Home visit Siena Rondon RN [facility] Comment on above: SN HH OASIS START OF CARE Start: 01-26-2024 End: 01-26-2024 ambulatory [facility] Start: 01-15-2024 End: 01-15-2024 ambulatory [facility] Ambulatory Start: 01-15-2024 End: 01-15-2024 Office outpatient visit 15 minutes Jass Pepe MD Work Phone: [facility] Comment on above: Osteoarthritis of ri ght knee, unspecified osteoarthritis type (Primary Dx) Start: 01-11-2024 Documentation procedure Yen gold 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) Start: 01-07-2024 End: 01-11-2024 ambulatory [facility] Start: 12-14-2023 End: 12-14-2023 ambulatory [facility] Work Phone: Start: 12-14-2023 End: 12-14-2023 Patient encounter procedure [facility] Work Phone: Start: 11-12-2023 End: 11-12-2023 ambulatory [facility] Work Phone: Start: 11-12-2023 End: 11-12-2023 Patient encounter procedure [facility] Work Phone: Start: 11-09-2023 End: 11-10-2023 ambulatory [facility] Start: 11-04-2023 End: 11-05-2023 ambulatory [facility] Start: 11-02-2023 End: 11-03-2023 ambulatory [facility] Start: 10-28-2023 End: 10-29-2023 ambulatory [facility] Start: 10-26-2023 End: 10-27-2023 ambulatory [facility] Start: 10-21-2023 End: 10-22-2023 ambulatory [facility] Start: 10-20-2023 End: 10-20-2023 ambulatory NICOL [facility] Ambulatory Start: 10-20-2023 End: 10-20-2023 Office outpatient visit 25 minutes Blaine Silveira MD Work Phone: [facility] Comment on above: Coronary artery dise ase involving [place] coronary artery of [place] heart without angina pectoris (Primary Dx); Osteoarthritis of right knee, unspecified osteoarthritis type; Severe aortic insufficiency Start: 10-19-2023 End: 10-20-2023 ambulatory [facility] Start: 10-14-2023 End: 10-15-2023 ambulatory [facility] Start: 10-12-2023 End: 10-13-2023 ambulatory [facility] Start: 10-09-2023 End: 10-10-2023 ambulatory [facility] Start: 10-07-2023 End: 10-08-2023 ambulatory [facility] Start: 09-29-2023 End: 09-29-2023 ambulatory [facility] Start: 09-25-2023 [facility] Jass Pepe MD Work Phone: [facility] Comment on above: Osteoarthritis of ri ght knee, unspecified osteoarthritis type (Primary Dx); Hypertension, unspecified type Start: 09-14-2023 End: 09-18-2023 ambulatory NICOL IBANEZ [facility] Start: 07-16-2023 End: 07-16-2023 ambulatory [facility] Work Phone: Start: 07-16-2023 End: 07-16-2023 Discharged [facility] Work Phone: Start: 06-25-2023 End: 06-25-2023 Emergency department patient visit [facility] Work Phone: Start: 06-25-2023 End: 06-29-2023 ambulatory [facility] Work Phone: Start: 06-25-2023 End: 06-29-2023 Discharged Recurring [facility] Work Phone: Start: 06-25-2023 Registered Recurring [facility] Work Phone: Start: 05-28-2023 End: 05-29-2023 ambulatory [facility] Work Phone: Start: 05-28-2023 End: 05-29-2023 Discharged Recurring [facility] Work Phone: Start: 04-23-2023 End: 04-29-2023 ambulatory [facility] Work Phone: Start: 04-23-2023 End: 04-29-2023 Discharged Recurring [facility] Start: 01-22-2023 ambulatory TERRIE [place] [facility] Start: 01-21-2023 End: 01-25-2023 ambulatory NICOL IBANEZ [facility] Start: 01-21-2023 End: 01-22-2023 ambulatory ANGELICA RANDALL [facility] Start: 01-21-2023 End: 01-21-2023 Office outpatient visit 25 minutes Angelica Randall CNP Work Phone: [facility] Comment on above: S/P TAVR (transcathe ter aortic valve replacement) (Primary Dx); Hypertension, unspecified type Start: 06-19-2022 Orders Only Terrie Núñez [facility] Comment on above: S/P TAVR (transcathe ter [...] Orders Only Blaine hines MD Work Phone: [facility] Start: 03-31-2022 ambulatory [...] Start: 02-19-2022 End: 02-23-2022 [facility] Start: 02-19-2022 End: 02-19-2022 Office outpatient visit 15 minutes Angelica Randall GATE SUPERVISOR Work Phone: [facility] Comment on above: S/P TAVR (transcathe ter aortic valve replacement) (Primary Dx) Start: 02-17-2022 ambulatory Robert Pugh [facility]il [id number] Start: 02-14-2022 ambulatory Robert [facility] [id number] Start: 02-12-2022 ambulatory Robert Pugh [facility] [id number] Start: 02-10-2022 ambulatory Robert Pugh [facility] [id number] Start: 02-03-2022 End: 02-03-2022 Phys/qhp telephone evaluation 11-20 min Angelica Randall GATE SUPERVISOR Work Phone: [facility] Comment on above: S/P TAVR (transcathe ter aortic valve replacement) (Primary Dx) Start: 01-22-2022 Orders Only Terrie Núñez [facility] Comment on above: S/P TAVR (transcathe ter aortic valve replacement) (Primary Dx) S/P TAVR (transcathe ter aortic valve replacement) (Primary Dx); Shortness of breath Start: 01-21-2022 End: 01-22-2022 Evaluation and management of inpatient Lindsey Plummer MD Work Phone: [facility] Start: 01-14-2022 Orders for Hospital Mikaela Reynold Leal GATE SUPERVISOR Work Phone: [facility] Start: 01-13-2022 Orders Only Angelica Han GATE SUPERVISOR Work Phone: [facility] Comment on above: Encounter for prepro cedure screening laboratory testing for COVID-19 (Primary Dx) Start: 01-13-2022 Patient encounter status Muriel zuniga RN [facility] Start: 01-10-2022 Orders Only Clau Michaud RN [facility] Comment on above: Aortic valve stenosi s, severe (Primary Dx); Severe aortic insufficiency Start: 01-09-2022 Orders Only Terrie Oh RN [facility] Comment on above: Encounter for preope rative screening laboratory testing for COVID-19 virus (Primary Dx) Start: 01-09-2022 End: 01-09-2022 Patient encounter status Terrie Oh RN [facility] Start: 01-09-2022 End: 01-09-2022 Office outpatient new 45 minutes Meir Arthur MD Work Phone: [facility] Comment on above: Severe aortic insuff iciency (Primary Dx); Aortic valve stenosis, severe; Pre-operative cardiovascular examination Aortic valve stenosi s, severe; Pre-operative cardiovascular examination Start: 01-07-2022 Orders for Hospital Terrie naik RN [facility] Comment on above: Aortic valve stenosi s, severe (Primary Dx); Pre-operative cardiovascular examination; Other abnormal findings in urine ; Abnormal coagulation profile ; Dyspnea, unspecified type ; Abnormal finding of blood chemistry, unspecified Start: 01-07-2022 Patient encounter status Terrie Warren RN [facility] Start: 01-01-2022 Orders Only Terrie Oh RN [facility] Comment on above: Encounter for prepro cedure screening laboratory testing for COVID-19 (Primary Dx) Start: 01-01-2022 Patient encounter status Terrie Warren RN [facility] Start: 12-31-2021 Orders Only Terrie Oh RN [facility] Comment on above: Aortic valve stenosi s, severe (Primary Dx); Pre-operative cardiovascular examination; Other specified symptoms and signs involving the circulatory and respiratory systems Start: 12-31-2021 Patient encounter status Terrie Warren RN [facility] Start: 06-24-2021 End: 06-24-2021 Orders Only Iliana Madsen RN [facility] Comment on above: Nonrheumatic aortic valve insufficiency (Primary Dx) Start: 06-10-2021 End: 06-10-2021 Orders Only Iliana Madsen RN [facility] Comment on above: Coronary artery dise ase involving [place] coronary artery of [place] heart without angina pectoris (Primary Dx) Nonrheumatic aortic valve insufficiency (Primary Dx) Start: 06-10-2021 End: 06-10-2021 Office outpatient visit 25 minutes Blaine Silveira MD Work Phone: [facility] Comment on above: Coronary artery dise ase involving [place] coronary artery of [place] heart without angina pectoris; Nonrheumatic aortic valve insufficiency; Elevated sed rate; Mixed hyperlipidemia Start: 01-23-2021 End: 01-23-2021 Orders Only Mustapha Al Work Phone: [facility] Start: 06-14-2019 End: 06-14-2019 Subsequent hospital visit by physician Blaine Silveira Work Phone: [facility] Comment on above: Nonrheumatic aortic valve insufficiency Start: 06-06-2019 End: 06-06-2019 Office outpatient visit 25 minutes Blaine Silveira Work Phone: [facility] Comment on above: SOB (shortness of br eath); Coronary artery disease involving [place] coronary artery of [place] heart without angina pectoris; Fibrosing mediastinitis; Nonrheumatic aortic valve insufficiency Start: 01-05-2018 Ambulatory Blaine Silveira [facility] Start: 01-05-2018 End: 01-05-2018 Ambulatory Blaine Silveira Work Phone: [facility] Procedures Date Procedure Procedure Detail Performing Clinician Start: 12-14-2023 Plain chest X-ray Start: 11-09-2023 FOLLOW UP IN PHYSICAL THERAPY [facility] Start: 11-04-2023 FOLLOW UP IN PHYSICAL THERAPY [facility] Start: 11-02-2023 FOLLOW UP IN PHYSICAL THERAPY [facility] Start: 10-28-2023 FOLLOW UP IN PHYSICAL THERAPY [facility] Start: 10-26-2023 FOLLOW UP IN PHYSICAL THERAPY [facility] Start: 10-21-2023 FOLLOW UP IN PHYSICAL THERAPY [facility] Start: 10-19-2023 FOLLOW UP IN PHYSICAL THERAPY [facility] Start: 10-14-2023 FOLLOW UP IN PHYSICAL THERAPY [facility] Start: 10-12-2023 FOLLOW UP IN PHYSICAL THERAPY [facility] Start: 10-09-2023 FOLLOW UP IN PHYSICAL THERAPY [facility] Start: 10-07-2023 FOLLOW UP IN PHYSICAL THERAPY [facility] Start: 09-29-2023 AMB REFERRAL TO PHYSICAL THERAPY JAVI AMEZUCA Start: 01-21-2023 Ecg routine ecg w/least 12 lds trcg only w/o i&r Angelica Claudia Tonia GATE SUPERVISOR Work Phone: Start: 02-19-2022 Ecg routine ecg w/least 12 lds trcg only w/o i&r Angelica Claudia Dye GATE SUPERVISOR Work Phone: Start: 01-22-2022 Ecg routine ecg w/least 12 lds trcg only w/o i&r Angelicaarmen Hsieh Dye GATE SUPERVISOR Work Phone: Start: 01-22-2022 Basic metabolic panel calcium total Angelica Hsieh Dye GATE SUPERVISOR Work Phone: Start: 01-21-2022 Potassium serum plasma/whole blood Angelica Hsieh Dye GATE SUPERVISOR Work Phone: Start: 01-21-2022 Dup-scan lxtr art/artl bpgs uni/lmtd study Angelica Randall GATE SUPERVISOR Work Phone: Start: 01-21-2022 Basic metabolic panel calcium total Angelica Randall GATE SUPERVISOR Work Phone: Start: 01-21-2022 Radiologic exam chest single view Angelica Randall GATE SUPERVISOR Work Phone: Start: 01-21-2022 Ecg routine ecg w/least 12 lds trcg only w/o i&r Angelicaarmen Randall GATE SUPERVISOR Work Phone: Start: 01-21-2022 Cardiac catheterization Angelica Randall GATE SUPERVISOR Work Phone: Start: 01-21-2022 2D TTE w or w/o fol w/con,fu Mikaela Leal GATE SUPERVISOR Work Phone: Start: 01-21-2022 Sodium serum plasma or whole blood Lindsey Plummer MD Work Phone: Start: 01-21-2022 End: 01-21-2022 TRANSCATHETER AORTIC VALVE REPLACEMENT FEMORAL APPROACH Meir Arthur MD Work Phone: Start: 01-21-2022 Basic metabolic panel calcium total Mikaela Leal GATE SUPERVISOR Work Phone: Start: 01-21-2022 Packed RBC preparation Mikaela lópez GATE SUPERVISOR Work Phone: Start: 01-09-2022 Ecg routine ecg w/least 12 lds trcg only w/o i&r Angelica Claudia Randall GATE SUPERVISOR Work Phone: Start: 06-10-2021 Ecg routine ecg [...] Activity Detail Author Start: 11-07-2026 Tetanus vaccination [facility] Start: 09-13-2024 Fall risk assessment Falls Risk Assessment [facility] Start: 03-18-2024 End: 03-18-2024 Follow-up encounter 03/18/2024 2:30 PM EDT Follow-Up [facility] [address] [id number] Jass Pepe MD [address] [place] [address] [facility] Start: 03-11-2024 End: 03-11-2024 ambulatory [facility] Start: 03-09-2024 End: 03-09-2024 ambulatory [facility] Start: 03-07-2024 End: 03-07-2024 ambulatory [facility] Start: 03-04-2024 End: 03-04-2024 ambulatory 03/04/2024 10:45 AM EDT Treatment [facility] [address] [place] [id number] Jass Pepe MD [address] [place] [address] Gabriel Tovar PTA [facility] Start: 03-02-2024 End: 03-02-2024 ambulatory 03/02/2024 10:45 AM EDT Treatment [facility] [address] [phone] Jass Pepe MD [address] [place] [address] Dajuan Arroyo, PT [facility] Start: 02-29-2024 End: 02-29-2024 ambulatory 02/29/2024 10:45 AM EDT Treatment [facility] [address] [phone] Jass Pepe MD [address] [place] [address] Gabriel Tovar [facility] Start: 02-26-2024 End: 02-26-2024 ambulatory 02/26/2024 10:45 AM EDT Treatment [facility] [address] [place] [address] Jass Pepe MD [address] [place] [address] Sherlyn Villavicencio [facility] Start: 02-24-2024 End: 02-24-2024 ambulatory 02/24/2024 10:45 AM EDT Treatment [facility] [address] [place] [address] Jass Pepe MD [address] [place] [address] Gabriel Tovar [facility] Start: 02-22-2024 End: 02-22-2024 ambulatory 02/22/2024 10:45 AM EDT Treatment [facility] [address] [place] [phone] Jass Pepe MD [address] [id number] Dajuan Arroyo, PT [facility] Start: 02-19-2024 End: 02-19-2024 ambulatory 02/19/2024 10:45 AM EDT Treatment [facility] [address] [place] [address] Jass Pepe MD [address] [place] [address] Gabriel Tovar PTA [facility] Start: 02-17-2024 End: 02-17-2024 ambulatory 02/17/2024 10:45 AM EDT Treatment [facility] [address] [place] [address] Jass Pepe MD [address] [place] [address] Gabriel Tovar PTA Discharge Disposition: Home [facility] Start: 02-15-2024 End: 02-15-2024 ambulatory 02/15/2024 10:45 AM EDT Evaluation [facility] [address] [place] [address] Jass Pepe MD [address] [place] [address] Dajuan Arroyo, PT Discharge Disposition: Home [facility] Start: 02-12-2024 End: 02-12-2024 Follow-up encounter 02/12/2024 2:15 PM EDT Follow-Up [facility] [address] [place] [address] Jass Pepe MD [address] [place] [address] [facility] Start: 02-12-2024 End: 02-12-2024 Home visit 02/12/2024 8:00 AM EDT Home Care Visit [address] [phone] Kendall Graff, PT [facility] Start: 02-11-2024 End: 02-11-2024 Patient encounter procedure [facility] Start: 02-11-2024 End: 02-11-2024 Home visit 02/11/2024 3:30 AM EDT Home Care Visit [place] [phone] Kendall Graff, PT [facility] Start: 02-11-2024 End: 02-11-2024 Patient encounter procedure 02/11/[address] [phone] Lindsey Centeno RN [facility] Start: 02-10-2024 End: 02-10-2024 Home visit 02/10/2024 10:00 AM EDT Home Care Visit [address] [phone] Cristhian Byrnes PTA [facility] Start: 02-09-2024 End: 02-10-2024 Home visit [facility] Start: 02-08-2024 End: 02-09-2024 Home visit [facility] Start: 02-05-2024 End: 02-05-2024 Home visit 02/05/2024 10:00 AM EST Home Care Visit [address] [place] [phone] Cristhian Byrnes PTA [facility] Start: 02-05-2024 End: 02-05-2024 Home visit [facility] Start: 02-03-2024 End: 02-03-2024 Home visit 02/03/2024 11:00 AM EST Home Care Visit [address] [address] Cristhian Byrnes PTA [facility] Start: 02-03-2024 End: 02-03-2024 Home visit 02/03/2024 Home Care Visit [address] [phone] Cristhian Byrnes PTA [facility] Start: 01-28-2024 End: 01-28-2024 Home visit [facility] Start: 01-26-2024 End: 01-26-2024 Admission to same day surgery center 01/26/2024 2:11 PM EST - 01/26/2024 4:14 PM EST Surgery [facility] [address] [place] [address] Jass Pepe MD [address] [place] [address] Right total knee replacement Robotic [facility] Comment on above: Right total knee replacement Robotic Start: 01-26-2024 End: 01-26-2024 ARTHROPLASTY KNEE TOTAL ROBOTIC ARTHROPLASTY KNEE TOTAL ROBOTIC Osteoarthritis of right knee, unspecified osteoarthritis type 01/26/2024 2:11 PM EST [facility] Start: 01-26-2024 Subsequent hospital visit by physician 01/26/2024 2:11 PM EST Hospital Encounter [facility] [address] [place] [address] Jass Pepe MD [address] [place] [address] [facility] Start: 01-15-2024 End: 01-15-2024 Patient encounter procedure 01/15/2024 1:15 PM EST Surgical Consult [facility] [address] [place] [address] Jass Pepe MD [address] [place] [address] [facility] Start: 2023 End: 2023 Admission to same day surgery center 2023 7:05 AM EST - 2023 9:08 AM EST Surgery [facility] [address] [place] [place] [address] Jass Pepe MD [address] [place] [address] Right total knee replacement Robotic [facility] Comment on above: Right total knee replacement Robotic Start: 2023 End: 2023 ARTHROPLASTY KNEE TOTAL ROBOTIC ARTHROPLASTY KNEE TOTAL ROBOTIC Osteoarthritis of right knee, unspecified osteoarthritis type 2023 7:05 AM EST [facility] Start: 2023 Subsequent hospital visit by physician [facility] Start: 12-11-2023 End: 12-11-2023 Patient encounter procedure 12/11/2023 1:00 PM EST Surgical Consult [facility] [address] [place] [address] Jass Pepe MD [address] [place] [address] [facility] Start: 12-03-2023 End: 12-03-2023 Patient encounter procedure 12/03/2023 10:30 AM EST Appointment [facility] CT Scan [address] [place] [address] Jass Pepe MD [address] [place] [address] [facility] [address] Scan Start: 12-03-2023 End: 12-03-2023 Patient encounter procedure 12/03/2023 7:15 AM EST Office Visit [facility] Preadmission Testing [address] [place] [address] [facility] Preadmission Testing Start: 11-30-2023 Administration of herpes zoster vaccine Zoster Vaccines (2 of 2) [facility] Start: 07-31-2023 COVID-19 Vaccine ( season) COVID-19 Vaccine ( season) [facility] Start: 07-31-2023 Influenza vaccination Sequential Influenza Vaccine (#1) [facility] Start: 06-25-2023 Simple repair f/e/e/n/l/m 2.5cm/< RPR F/E/E/N/L/M 2.5 CM/< [facility] Start: 01-21-2023 End: 01-21-2023 Patient encounter procedure [facility] Start: 07-31-2022 Influenza vaccination Sequential Influenza Vaccine (#1) [facility] Start: 04-28-2022 COVID-19 Vaccine (5 - Booster for Pfizer series) COVID-19 Vaccine (5 - Booster for Pfizer series) [facility] Start: 04-04-2022 End: 04-04-2022 Patient encounter procedure 04/04/2022 Office Visit Cardiology Blaine Silveira MD [address] [facility] [address] [place] [address] [facility] Start: 02-19-2022 End: 02-19-2022 Patient encounter procedure [facility] Start: 02-03-2022 End: 02-03-2022 Telemedicine consultation with patient 02/03/2022 Telemedicine Telephone Cardiology Angelica Randall, GATE SUPERVISOR [address] [phone] [facility] Start: 01-21-2022 End: 01-21-2022 Admission to same day surgery center 01/21/2022 Surgery Lindsey Plummer MD [address] [facility] [address] [place] [address] Transcatheter Aortic Valve Replacement [facility] Comment on above: Transcatheter Aortic Valve Replacement Start: 01-21-2022 Subsequent hospital visit by physician 01/21/2022 Hospital Encounter Lindsey Plummer MD [address] 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 Comment on above: Left Heart Cath Possbile PTCA/Stent LEFT HEART CATH Start: 01-15-2022 Subsequent hospital visit by physician 01/15/2022 Hospital Encounter Silvio Mckeon MD [address] [facility] [address] [place] [address] [facility] Proced[facility] Care Unit Start: 01-09-2022 End: 01-10-2022 Patient encounter procedure [facility] Start: 01-09-2022 Subsequent hospital visit by physician [facility] [place] Start: 01-06-2022 End: 01-06-2022 Patient encounter procedure 01/06/2022 Office Visit Lab Angelica Randall, GATE SUPERVISOR [address] [place] [id number] [facility] Start: 12-25-2021 End: 08-25-2022 Echocardiography Echocardiogram complete Echocardiography Routine Nonrheumatic aortic valve insufficiency Expected: 12/25/2021 (Approximate), Expires: 08/25/2022 [facility] Comment on above: Expected: 12/25/2021 (Approximate), Expi res: 08/25/2022 Start: 07-31-2021 Influenza vaccination Sequential Influenza Vaccine (#1) [facility] Start: 06-21-2021 End: 06-21-2021 Patient encounter procedure 06/21/2021 Appointment Cardiology Blaine Silveira MD [address] [facility] [address] [place] [address] [phone] [facility] Start: 05-25-2021 Pneumococcal vaccination Pneumococcal Vaccine Age 65+ (2 of 2 - PPSV23) [facility] Start: 07-31-2020 Influenza vaccination given Sequential Influenza Vaccine (#1) [facility] Start: 2019 Fall risk assessment Falls Risk Assessment [facility] Start: 07-31-2019 Influenza vaccination given SEQUENTIAL INFLUENZA VACCINE (#1) [facility] Start: 06-14-2019 End: 06-14-2019 Appointment 06/14/2019 Appointment Cardiology Blaine Silveira MD [address] [place] [address] [phone] [facility] Start: 07-31-2017 Influenza vaccination SEQUENTIAL INFLUENZA VACCINE (#1) [facility] Work Phone: Start: 2014 Zoster vacc, sc ZOSTER VACCINE [facility] Work Phone: Start: 2004 Administration of herpes zoster vaccine Zoster Vaccines (1 of 2) [facility] Start: 2004 Screening for malignant neoplasm of colon [facility] Start: 1994 Screening for malignant neoplasm of breast Mammogram [facility] Start: 1994 Screening mammography Mammogram [facility] Start: 1970 COVID-19 Vaccine (1 of 2) COVID-19 Vaccine (1 of 2) [facility] Start: 1966 Adolescent depression screening assessment Depression Screening (PHQ9) [facility] Start: 1966 Depression screening using PHQ-9 (Patient Health Questionnaire 9) score [facility] Start: 1960 Pneumococcal Vaccine: Age 65+ (1 of 2 - PPSV23) Pneumococcal Vaccine: Age 65+ (1 of 2 - PPSV23) [facility] Start: 1957 History and physical examination, annual for health maintenance Wellness Visit [facility] Start: 1954 Fall risk assessment Falls Risk Assessment [facility] Start: 1954 Physical therapy management PT Plan of Care [facility] Start: 1954 Screening colonoscopy COLONOSCOPY [facility] Work Phone: Start: 1954 Screening for malignant neoplasm of cervix PAP SMEAR [facility] Work Phone: Start: 1954 Screening for malignant neoplasm of colon [facility] Start: 1954 Screening for osteoporosis Dexa Scan [facility] Start: 1954 Screening mammography Mammogram [facility] Start: 1954 Tetanus vaccination TETANUS EVERY 10 YR [facility] Work Phone: End: 12-31-2022 12 lead ECG ECG 12 Lead ECG Routine Aortic valve stenosis, severe Pre-operative cardiovascular examination 1 Occurrences starting 12/31/2021 until 12/31/2022 [facility] Comment on above: 1 Occurrences starting 12/31/2021 until 12/31/2022 End: 01-22-2023 12 lead ECG ECG 12 Lead ECG Routine S/P TAVR (transcatheter aortic valve replacement) 1 Occurrences starting 01/22/2022 until 01/22/2023 [facility] Comment on above: 1 Occurrences starting 01/22/2022 until 01/22/2023 End: 06-19-2023 12 lead ECG ECG 12 Lead ECG Routine S/P TAVR (transcatheter aortic valve replacement) 1 Occurrences starting 06/19/2022 until 06/19/2023 [facility] Comment on above: 1 Occurrences starting 06/19/2022 until 06/19/2023 End: 09-25-2024 12 lead ECG ECG 12 Lead ECG Routine Osteoarthritis of right knee, unspecified osteoarthritis type 1 Occurrences starting 09/27/2023 until 09/25/2024 [facility] Comment on above: 1 Occurrences starting 09/27/2023 until 09/25/2024 ARTHROPLASTY KNEE TO FARIHA ROBOTIC ARTHROPLASTY KNEE TOTAL ROBOTIC Osteoarthritis of right knee, unspecified osteoarthritis type [facility] End: 02-13-2023 Basic metabolic 2000 panel - Serum or Plasma Basic metabolic panel Lab Routine S/P TAVR (transcatheter aortic valve replacement) 1 Occurrences starting 02/13/2022 until 02/13/2023 [facility] Comment on above: 1 Occurrences starting 02/13/2022 until 02/13/2023 End: 01-19-2024 Basic metabolic 2000 panel - Serum or Plasma Basic metabolic panel Lab Routine S/P TAVR (transcatheter aortic valve replacement) 1 Occurrences starting 01/19/2023 until 01/19/2024 [facility] Comment on above: 1 Occurrences starting 01/19/2023 until 01/19/2024 End: 09-25-2024 Basic metabolic 2000 panel - Serum or Plasma Basic metabolic panel Lab Routine Osteoarthritis of right knee, unspecified osteoarthritis type 1 Occurrences starting 09/27/2023 until 09/25/2024 [facility] Comment on above: 1 Occurrences starting 09/27/2023 until 09/25/2024 Cardiac catheterization Cardiac Catheterization Cardiac Cath Routine 01/21/2022 12:46 PM EST [facility] End: 02-28-2023 Carotid artery doppler assessment Carotid Duplex Vascular Ultrasound Routine Aortic valve stenosis, severe Pre-operative cardiovascular examination Other specified symptoms and signs involving the circulatory and respiratory systems 1 Occurrences starting 12/31/2021 until 02/28/2023 [facility] Comment on above: 1 Occurrences starting 12/31/2021 until 02/28/2023 End: 02-13-2023 CBC panel - Blood by Automated count CBC Lab Routine S/P TAVR (transcatheter aortic valve replacement) 1 Occurrences starting 02/13/2022 until 02/13/2023 [facility] Comment on above: 1 Occurrences starting 02/13/2022 until 02/13/2023 End: 01-19-2024 CBC panel - Blood by Automated count CBC Lab Routine S/P TAVR (transcatheter aortic valve replacement) 1 Occurrences starting 01/19/2023 until 01/19/2024 [facility] Comment on above: 1 Occurrences starting 01/19/2023 until 01/19/2024 End: 09-25-2024 Complete blood count with white cell differential, manual CBC and differential Lab Routine Osteoarthritis of right knee, unspecified osteoarthritis type Hypertension, unspecified type 1 Occurrences starting 09/27/2023 until 09/25/2024 [facility] Comment on above: 1 Occurrences starting 09/27/2023 until 09/25/2024 End: 12-31-2022 Complete PFT with pre and post bronchodilators Complete PFT with pre and post bronchodilators PFT Routine Aortic valve stenosis, severe Pre-operative cardiovascular examination 1 Occurrences starting 12/31/2021 until 12/31/2022 [facility] Work Phone: Comment on above: 1 Occurrences starting 12/31/2021 until 12/31/2022 End: 09-25-2024 CT Knee Right Without Contrast CT Knee Right Without Contrast Imaging Routine Osteoarthritis of right knee, unspecified osteoarthritis type 1 Occurrences starting 09/27/2023 until 09/25/2024 [facility] Comment on above: 1 Occurrences starting 09/27/2023 until 09/25/2024 End: 06-06-2020 Echocardiography Echocardiogram complete Echocardiography Routine Nonrheumatic aortic valve insufficiency 1 Occurrences starting 06/06/2019 until 06/06/2020 [facility] Comment on above: 1 Occurrences starting 06/06/2019 until 06/06/2020 End: 08-11-2022 Echocardiography Echocardiogram complete Echocardiography Routine Nonrheumatic aortic valve insufficiency 1 Occurrences starting 06/10/2021 until 08/11/2022 [facility] Comment on above: 1 Occurrences starting 06/10/2021 until 08/11/2022 End: 03-22-2023 Echocardiography Echocardiogram complete Echocardiography Routine S/P TAVR (transcatheter aortic valve replacement) 1 Occurrences starting 01/22/2022 until 03/22/2023 [facility] Work Phone: Comment on above: 1 Occurrences starting 01/22/2022 until 03/22/2023 End: 01-22-2022 Echocardiography Echocardiogram complete Echocardiography Routine Once for 1 Occurrences starting 01/22/2022 until 01/22/2022 [facility] Work Phone: Comment on above: Once for 1 Occurrences starting 01/22/20 until 01/22/2022 Echocardiography Echocardiogram complete Echocardiography Routine 01/22/2022 10:04 AM EST [facility] End: 08-20-2023 Echocardiography Echocardiogram complete Echocardiography Routine S/P TAVR (transcatheter aortic valve replacement) 1 Occurrences starting 06/19/2022 until 08/20/2023 [facility] Work Phone: Comment on above: 1 Occurrences starting 06/19/2022 until 08/20/2023 End: 09-25-2024 Incentive spirometry - Initial Instruction Incentive spirometry - Initial Instruction Respiratory Care Routine Osteoarthritis of right knee, unspecified osteoarthritis type 1 Occurrences starting 09/27/2023 until 09/25/2024 [facility] Work Phone: Comment on above: 1 Occurrences starting 09/27/2023 until 09/25/2024 End: 12-31-2022 Methicillin resistant Staphylococcus aureus [Presence] in Unspecified specimen by Organism specific culture MRSA Culture/Screen Microbiology Routine Aortic valve stenosis, severe Pre-operative cardiovascular examination 1 Occurrences starting 12/31/2021 until 12/31/2022 [facility] Comment on above: 1 Occurrences starting 12/31/2021 until 12/31/2022 Methicillin resistan t Staphylococcus aureus [Presence] in Unspecified specimen by Organism specific culture MRSA Culture/Screen Microbiology Routine Aortic valve stenosis, severe Pre-operative cardiovascular examination 01/09/2022 9:45 AM EST [facility] Work Phone: End: 09-25-2024 Methicillin resistant Staphylococcus aureus [Presence] in Unspecified specimen by Organism specific culture MRSA Culture Microbiology Routine Osteoarthritis of right knee, unspecified osteoarthritis type 1 Occurrences starting 09/27/2023 until 09/25/2024 [facility] Comment on above: 1 Occurrences starting 09/27/2023 until 09/25/2024 End: 02-13-2023 Natriuretic peptide.B prohormone N-Terminal [Mass/volume] in Serum or Plasma NT PRO BNP Lab Routine S/P TAVR (transcatheter aortic valve replacement) Shortness of breath 1 Occurrences starting 02/13/2022 until 02/13/2023 [facility] Comment on above: 1 Occurrences starting 02/13/2022 until 02/13/2023 Patient Education ED Head Injury (Adult) ED Laceration: All Closures [facility] Work Phone: Patient referral [facility] Work Phone: End: 06-11-2022 Radionuclide myocardial perfusion study NM Myocardial Perfusion Multiple SPECT Imaging Routine Coronary artery disease involving [place] coronary artery of [place] heart without angina pectoris 1 Occurrences starting 06/10/2021 until 06/11/2022 [facility] Comment on above: 1 Occurrences starting 06/10/2021 until 06/11/2022 End: 01-09-2023 SARS-CoV-2 (COVID-19) RdRp gene [Presence] in Respiratory specimen by MAXIMUS with probe detection COVID-19, Molecular Microbiology Routine Encounter for preoperative screening laboratory testing for COVID-19 virus 1 Occurrences starting 01/09/2022 until 01/09/2023 [facility] Work Phone: Comment on above: 1 Occurrences starting 01/09/2022 until 01/09/2023 End: 01-13-2023 SARS-CoV-2 (COVID-19) RdRp gene [Presence] in Respiratory specimen by MAXIMUS with probe detection COVID-19, Molecular Microbiology Routine Encounter for preprocedure screening laboratory testing for COVID-19 1 Occurrences starting 01/13/2022 until 01/13/2023 [facility] Work Phone: Comment on above: 1 Occurrences starting 01/13/2022 until 01/13/2023 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 Vascular Ultrasound Routine 01/21/2022 2:16 PM EST [facility] Payers Date Payer Category Payer Self-pay [id number] 2019 Medicare MEDICARE MEDICAR E PART A & B [id number] 2019-Present [place] [id number] 2019 Medicare MEDICARE MEDICAR E PART A & B [id number] 2019-Present [phone] S [id number] PART A CLAIMS [address] [address] [place] [address] [id number] .[id number] 2019 Medicare [id number] 2019 Unknown [id number] 2000 Unknown [id number] 2.16.840.1.761647.3.249.13 2000 Unknown [facility] UHC/UHONE/GO LDEN RULE xxxxxxxxx 2000-Present xxxxxxxxx 1.2.840.576474.1.13.385.2.7.3 .179146.315 1954 Unknown [id number] 2.16.840.1.717819.3.579.2.106 9 1954 Unknown [id number] 2.16.840.1.386615.3.579.2.106 9 1954 Unknown [id number] 2.16.840.1.746265.3.579.2.106 9 1954 Unknown [id number] 2.16.840.1.113603.3.579.2.106 9 1954 Unknown [id number] 2.16.840.1.060998.3.579.2.106 9 1954 Unknown [id number] 2.16.840.1.191546.3.579.2.106 9 1954 Unknown [id number] 2.16.840.1.557681.3.579.2.106 9 1954 Unknown [id number] 2.16.840.1.769951.3.579.2.106 9 1954 Unknown [id number] 2.16.840.1.471752.3.579.2.106 9 1954 Unknown [id number] 2.16.840.1.731768.3.579.2.106 9 1954 Unknown [id number] 2.16.840.1.307565.3.579.2.106 9 1954 Unknown [id number] 2.16.840.1.358718.3.579.2.106 9 1954 Unknown [id number] 2.16.840.1.441001.3.579.2.106 9 1954 Unknown [id number] 2.16.840.1.220428.3.579.2.106 9 1954 Unknown [id number] 2.16.840.1.139215.3.579.2.106 9 1954 Unknown [id number] 2.16.840.1.797650.3.579.2.106 9 1954 Unknown [id number] 2.16.840.1.999638.3.579.2.106 9 1954 Unknown [id number] 2.16.840.1.924049.3.579.2.106 9 1954 Unknown [id number] 2.16.840.1.982541.3.579.2.106 9 1954 Unknown [id number] 2.16.840.1.800985.3.579.2.106 9 1954 Unknown [id number] 2.16.840.1.938383.3.579.2.106 9 1954 Unknown [id number] 2.16.840.1.851792.3.579.2.106 9 1954 Unknown [id number] 2.16.840.1.995022.3.579.2.106 9 1954 Unknown [id number] 2.16.840.1.611772.3.579.2.106 9 1954 Unknown [id number] 2.16.840.1.251264.3.579.2.106 9 1954 Unknown [id number] 2.16.840.1.614799.3.579.2.106 9 1954 Unknown [id number] 2.16.840.1.533059.3.579.2.106 9 1954 Unknown [id number] 2.16.840.1.516366.3.579.2.106 9 1954 Unknown [id number] 2.16.840.1.606743.3.579.2.106 9 1954 Unknown [id number] 2.16.840.1.810374.3.579.2.106 9 1954 Unknown [id number] 2.16.840.1.242550.3.579.2.106 9 1954 Unknown [id number] 2.16.840.1.532900.3.579.2.106 9 1954 Unknown [id number] 2.16.840.1.732942.3.579.2.106 9 1954 Unknown [id number] 2.16.840.1.328888.3.579.2.106 9 1954 Unknown [id number] 2.16.840.1.872042.3.579.2.106 9 1954 Unknown [id number] 2.16.840.1.230399.3.579.2.106 9 1954 Unknown [id number] 2.16.840.1.656567.3.579.2.106 9 1954 Unknown [id number] 2.16.840.1.228479.3.579.2.900 1954 Unknown [id number] 2.16.840.1.043235.3.579.2.900 1954 Unknown [id number] 2.16.840.1.802091.3.579.2.902 1954 Unknown [id number] 2.16.840.1.148012.3.579.2.902 1954 Unknown [id number] 2.16.840.1.930293.3.579.2.902 1954 Unknown [id number] 2.16.840.1.465975.3.579.2.124 3 1954 Unknown [id number] 2.16.840.1.586342.3.579.2.124 3 1954 Unknown [id number] 2.16.840.1.175113.3.579.2.124 3 1954 Unknown [id number] 2.16.840.1.794604.3.579.2.124 3 1954 Unknown [id number] 2.16.840.1.901133.3.579.2.124 3 1954 Unknown [id number] 2.16.840.1.607174.3.579.2.124 3 1954 Unknown [id number] 2.16.840.1.223269.3.579.2.124 3 1954 Unknown [id number] 2.16.840.1.851508.3.579.2.124 3 1954 Unknown [id number] 2.16.840.1.771968.3.579.2.124 3 1954 Unknown [id number] 2.16.840.1.996839.3.579.2.124 3 1954 Unknown [id number] 2.16.840.1.612942.3.579.2.124 3 1954 Unknown [id number] 2.16.840.1.268758.3.579.2.124 3 1954 Unknown [id number] 2.16.840.1.102086.3.579.2.903 1954 Unknown [id number] 2.16.840.1.124223.3.579.2. 1954 Unknown [id number] 2.16.840.1.407778.3.579.2.903 1954 Unknown [id number] 2.16.840.1.891441.3.579.2. 1954 Unknown [id number] 2.16.840.1.966277.3.579.2.903 1954 Unknown [id number] 2.16.840.1.640252.3.579.2.903 1954 Unknown [id number] 2.16.840.1.376037.3.579.2.903 1954 Unknown [id number] 2.16.840.1.304077.3.579.2. 1954 Unknown [id number] 2.16.840.1.592895.3.579.2.903 1954 Unknown [id number] 2.16.840.1.224625.3.579.2.90 1954 Unknown [id number] 2.16.840.1.790379.3.579.2.903 1954 Unknown [id number] 2.16.840.1.807060.3.579.2.903 1954 Unknown [id number] 2.16.840.1.419719.3.579.2.903 1954 Unknown [id number] 2.16.840.1.127948.3.579.2.903 1954 Unknown [id number] 2.16.840.1.868509.3.579.2. 1954 Unknown [id number] 2.16.840.1.292186.3.579.2.903 1954 Unknown [id number] 2.16.840.1.141262.3.579.2. 1954 Unknown [id number] 2.16.840.1.524302.3.579.2.903 1954 Unknown [id number] 2.16.840.1.170222.3.579.2. 1954 Unknown [id number] 2.16.840.1.437691.3.579.2.903 1954 Unknown [id number] 2.16.840.1.875767.3.579.2.3 1954 Unknown [id number] 2.16.840.1.898798.3.579.2.903 1954 Unknown [id number] 2.16.840.1.744956.3.579.2. Unknown COMMERCIAL COMME RCIAL MISCELLANEOUS [id number] Effective for all dates [id number] 1.2.840.748866.1.13.385.2.7.3 .810156.315 Unknown COMMERCIAL COMME RCIAL MISCELLANEOUS [id number] Effective for all dates [phone] [address] [address] [place] [address] 1.2.840.267344.1.13.385.2.7.3 .073371.315 Unknown [id number] 2.16.840.1.123201.3.579.2.462 Unknown [id number] 2.16.840.1.907676.3.579.2.462 Unknown [id number] 2.16.840.1.024814.3.579.2.462 Social History Date Type Detail Facility Start: 06-08-2017 End: 01-21-2023 Tobacco smoking status NHIS Never smoker [facility] Start: 1955 Sex Assigned At Not on file [facility] Work Phone: Start: 06-06-2019 Alcohol Comment occasional [facility] Start: 06-11-2020 End: 01-21-2023 Tobacco use and exposure Never used [facility] Start: 06-11-2020 End: 03-04-2024 Alcohol intake Current drinker of alcohol (finding) [facility] Start: 06-10-2021 End: 02-24-2024 Alcohol intake [facility] Start: 01-11-2022 End: 01-21-2023 Exposure to SARS-CoV-2 (event) Not sure [facility] Start: 12-06-2019 End: 06-25-2023 Tobacco smoking status NHIS Unknown if ever smoked [facility] Start: 1955 Sex Assigned At Female [facility] Start: 09-14-2023 End: 02-24-2024 Tobacco use panel [facility] Start: 06-06-2019 Gender identity Identifies as female gender (finding) [facility] Start: 06-06-2019 Sexual orientation Heterosexual (finding) [facility] Lack of Transportati on (Medical) No [facility] Medical Equipment Procedure Code Equipment Code Equipment Origin al Text Equipment Identifier Dates Closure 6fr Angioseal Vip - [id number] Start: 01-15-2022 Closure Perclose Prostyle - [id number] Start: 01-21-2022 Valve 34mm Evolu t Pro Aortic - [id number] 7)[id number], [id number] FDA Start: 01-21-2022 Hemostat 2 X 4in Surgicel Snow Sterl - [id number] Start: 01-21-2022 Baseplate Sz3 Ti bial Tritanium Triathlon - [id number] ()[id number] 7)[id number])[id number], [id number] FDA Start: 01-26-2024 Component Sz3 Fe m Cr Rt Cementless Beaded W/Pa Triathlon - [id number] ()[id number] 7)[id number])[id number], [id number] FDA Start: 01-26-2024 Patella 29mm Asymmetric Metal-Backed Tritanium Triathlon - [id number] ()[id number] 7)[id number])[id number], [id number] FDA Start: 01-26-2024 Insert Sz3-11 Ti bial Cr X3 Triathlon 9988-[id number] - [id number] ()[id number] 7)[id number])[id number], [id number] FDA Start: 01-26-2024 Clinical Notes 06-10-2021 to 03-11-2024 Flores Gore PTA - 03/11/2024 10:45 AM Flores Lund PTA - 03/09/2024 10:45 AM Flores Lund PTA - 03/07/2024 10:45 AM Nadege Chua - 03/04/2024 10:45 AM EDTNarrapatrizia Note Date & Type Note Facility 03-11-2024 History of Presen t illness Narrative [facility] TREATMENT NOTE Today's [...] Arnav Notes visit 11: 10:45-11:28 Therapeutic Exercise (65509) Intervention SciFit Bike L4 x 6 mins [...] up and over 6 Intervention Possibly add pitcairn islander split squats/ stool scoots/ standing hamstring curls [...] PT visits Flores Gore PTA STATE LICENSE, [id number] documented in this encounter [facility] 03-09-2024 History of Presen t illness Narrative [facility] TREATMENT NOTE Today's [...] Arnav Notes Visit #10: 10:36-11:26 Therapeutic Exercise (37667) Intervention SciFit Bike L4 x 6 mins [...] up and over 6 Intervention Possibly add pitcairn islander split squats/ stool scoots/ standing hamstring curls [...] Flexion ROM Flores Gore PTA STATE LICENSE, [id number] documented in this encounter [facility] 03-07-2024 History of Presen t illness Narrative [facility] TREATMENT NOTE Today's [...] Arnav Notes Visit #8: 10:45-11:30 Therapeutic Exercise (46215) Intervention SciFit Bike L4 x 6 mins [...] up and over 6 Intervention Possibly add pitcairn islander split squats/ stool scoots/ standing hamstring curls [...] on flexion Flores Gore PTA STATE LICENSE, [id number] documented in this encounter [facility] 03-04-2024 History of Presen t illness Narrative [facility] TREATMENT NOTE Today's [...] Arnav Notes Visit #8: 10:45-11:40 Therapeutic Exercise (53458) Intervention SciFit Bike L4 x 6 mins [...] up and over 6 Intervention Possibly add pitcairn islander split squats/ stool scoots/ standing hamstring curls [...] SHIRA Celis No licensure found in state: [place] Treatment was directed and supervised by the co-signing therapist who was directly present for the entire session. Gabriel Tovar PTA State License [id number] documented in this encounter [facility] 03-02-2024 History of Presen t illness Narrative [facility] TREATMENT NOTE Today's [...] Notes Visit #7: 10:46 11:24 Therapeutic Exercise (23518) Intervention SciFit Bike L4 x 6 mins [...] taps w/6 step x10 Intervention Possibly add pitcairn islander split squats/ stool scoots/ standing hamstring curls [...] Kamara, SPT No licensure found in state[place] Treatment was directed and supervised by the co-signing therapist who was directly present for the entire session. Djauan Arroyo PT State License, [id number] documented in this encounter [facility] 02-29-2024 History of Presen t illness Narrative [facility] TREATMENT NOTE Today's [...] Notes Visit: 1050 - 11:40 Therapeutic Exercise (19999) Intervention SciFit Bike L4 x 6 mins [...] and ROM Gabriel Tovar PTA STATE LICENSE, [id number] documented in this encounter [facility] 02-26-2024 History of Presen t illness Narrative [facility] TREATMENT NOTE Today's [...] Precautions/Contraindications Supervising PT: Arnav Notes Visit: 5 [id number] Therapeutic Exercise (58400) Intervention SciFit Bike L4 x 6 mins [...] as tolerated Sherlyn Villavicencio PTA STATE LICENSE, [id number] documented in this encounter [facility] 02-24-2024 History of Presen t illness Narrative [facility] DA[facility] TREATMENT NOTE Today's [...] Arnav Notes Visit: 4 10:45-11:11:43 Therapeutic Exercise (99438) Intervention SciFit Bike L4 x 5 mins [...] SHIRA Celis [place] licensure found in state[place] Treatment was directed and supervised by the co-signing therapist who was directly present for the entire session. Gabriel Tovar PTA State License [id number] documented in this encounter [facility] 02-22-2024 History of Presen t illness Narrative [facility] TREATMENT NOTE Today's [...] Visit: 3 10:40 - 11:15 Therapeutic Exercise (89354) Intervention SciFit Bike L4 x 5 mins [...] Kamara, SPT [place] lic[place] found [place] Treatment was directed and supervised by the co-signing therapist who was directly present for the entire session. Dajuan Arroyo PT State License, [id number] documented in this encounter [facility] 02-19-2024 History of Presen t illness Narrative [facility] TREATMENT NOTE Today's [...] Visit: 2 10:48 - 11:46 Therapeutic Exercise (05902) Intervention SciFit Bike L4 x 5 mins [...] strengthening progression Gabriel Tovar PTA STATE LICENSE, [id number] documented in this encounter [facility] 02-17-2024 History of Presen t illness Narrative [facility] DA[facility] TREATMENT NOTE Today's [...] Arnav Notes Visit: 1 10:50- Therapeutic Exercise (99234) Intervention HEP was reviewed w/ patient and [...] SHIRA Celis [place] found [place] Treatment was directed and supervised by the co-signing therapist who was directly present for the entire session. Gabriel Tovar PTA [id number] documented in this encounter [facility] 02-15-2024 History of Presen t illness Narrative [facility] Evaluation Today's Date 02/15/2024 [...] the ability to ambulate better. Social Support: Faith, social, or cultural considerations to be made aware of before starting treatment: No Home Environment Current Home Environment: Setup: single story house Entry: steps with railing Red Flags: None Comments: Barriers to Care: None Fall risk screening Fallen 2 or more times in the last 12 months: No Injured as a result of a fall in the last 12 months: No Faith, social, or cultural considerations to be made [...] - 02/15/24 1050 OTHER Precautions/Contraindications Supervising PT: Arnav Notes Eval: 10:51 - 11:17 Therapeutic Exercise (07662) Intervention HEP was reviewed w/ patient and [...] with HEP in 2 weeks. CPT Code 65187 Low 83387 Moderate 44241 High History 0 1-2 3+ Comorbidities: asthma, [...] week Duration: 6 weeks Interventions: Therapeutic Exercise (46960), Neuromuscular Re-Education (59852), Manual Therapy (47961), Therapeutic/ Functional Activities (46032), Gait Training (35367), Aquatic Therapy (60989), Hot/Cold Pack (23716), Electrical Stimulation - Medicare, Unattended (G0283), Ultrasound (46230), and Vasopneumatic (66248) Rehab Potential: good Patient Education Provided Pt [...] entire session. Dajuan Arroyo PT State License, [id number] documented in this encounter [facility] 02-12-2024 Patient's home Pr ogress note Pt reports she is doing well and ready for dc. Is using a SPC around the house. Sees this afternoon for followup and staple removal. documented in this encounter [id number] Telephone encounter Note* Telephone Encounter - Treva Obregon LPN - 02/08/2024 12:09 PM EDT Patient requested refill for pain medication. Surgery 01/26 right TKR, last fill 01/26. [id number] Miscellaneous Notes* Telephone Encounter - Treva Obregon LPN - 02/08/2024 12:09 PM EDT Patient requested refill for pain medication. Surgery 01/26 right TKR, last fill 01/26. documented in this [id number] History of Present illness Narrative* Yen Carlson [...] to call the office. documented in this [id number] History of Present illness Narrative* Yen Carlson LPN - 01/11/2024 2:11 PM EST Amber's nasal swab was positive for MSSA w her preop testing. She will start Doxycyline 100mg bid x 7days and Mupirocin 2% ointment to both nostrils bid x 7 days. I did speak w Amber. documented in this [id number] Patient's home Progress note* Actions Routine visit [...] no longer homebound documented in this encounter [id number] Patient's home Progress note* Actions Routine visit [...] no longer homebound documented in this encounter [id number] Evaluation + Plan note* Assessment & Plan Note - Blaine Silveira MD - 10/20/2023 1:56 PM ESTAssociated Problem(s): Severe aortic insufficiency Doing well from Tavr standpoint Should be low cardiac for surgery from coronary and Valve Would suggest a pre op Pulmonary consult just to be sure from her fibrosing mediastinitis history Also would continue asa through surgery [id number] History of Present illness Narrative* Blaine Silveira MD - 10/20/2023 1:56 PM EST Patient Name: Vickie Gonzalez [facility] MR #: [id number] General Cardiology Blaine Silveira MD, [facility] 10/20/23 Dear Nicol Ibanez MD, Vickie Gonzalez was seen in follow up for : Problem Coronary Artery Disease Involving [place] Coronary Artery of [place] Heart Without Angina Pectoris CABG 2000 Cath 2010 all grafts open 12/2021- Pat Dye/Missy Severe Aortic Insufficiency EVOLUT 34mm via R UNDERCOVER AGENT. 01/21/222022 2 D cardiac echocardiogram looked good [...] 1 (one) tablet by mouth daily . WKQADTB-VWQXOGNOT-RLQV ORAL Take 1 tablet by mouth daily [...] No medications on file documented in this [id number] Miscellaneous Notes* Assessment & Plan Note - Blaine Silveira MD - 10/20/2023 1:56 PM ESTAssociated Problem(s): Severe aortic insufficiency Doing well from Tavr standpoint Should be low cardiac for surgery from coronary and Valve Would suggest a pre op Pulmonary consult just to be sure from her fibrosing mediastinitis history Also would continue asa through surgery documented in this [id number] Progress note Author Lindsey Walsh [facility] July 16, 2023 12:13pm Note Date/Time July 16, 2023 12 :05pm [facility] [address] [place] [address] Progress Note - Wound Care 07/16/23 1200 MR#: [id number] Acct: [id number] Name: VICKIE GONZALEZ Rep #:[id number] 09 : 1955 67 From: Lindsey sykes DPMalachi PCP: Dr. Nicol Ibanez MD [...] locally at the wound care center at [facility]. She states following a few [...] Recorded Date Recorded By Document 07/16/23 09:42 [id number] 07/16/23 09:51 KW 07/16/23 09:42 - Today's Visit Information Type of service Follow-up Visit (Physician/GATE SUPERVISOR ) Arrival Mode Ambulatory Patient Identification Verified [...] Recorded Date Recorded By Document 07/16/23 09:42 [id number] 07/16/23 09:51 07/16/23 09:42 Wound Center Nurse [...] Recorded Date Recorded By Document 07/16/23 10:05 [id number] 07/16/23 10:06 07/16/23 10:05 Wound Care Center [...] No signs of infection. Pain: May take olfn-cpz-rmxsxkd Tylenol as needed for discomfort. Host factors: Basal cell carcinoma left lower extremity, edema. ? At this time with all wounds healed she is discharged from the wound care center. She has follow-up appointment with beef grader next week. I answered all the patient's questions.? To return to the wound healing center as needed or call sooner if the patient has any questions or concerns. 07/16/23 1213 <Electronically signed by Lindsey Walsh DPM> Cosigner Signature (if applicable): CC: ~ Signed [facility] Work Phone: 1(753) 138-774707-27-2023 Progress note Author Lindsey Nico [facility] June 25, 2023 11:36am Note Date/Time June 25, 2023 10:1 2am [facility] [address] [place] [address] Progress Note - Wound Care 06/25/23 1012 MR#: [id number] Acct: [id number] Name: VICKIE GONZALEZ Rep #:[id number] 07 : [...] locally at the wound care center at [facility]. She states following a few [...] Date Recorded By Document 06/04/23 10:15 AK [id number] 06/04/23 10:17 AK Document 06/18/23 10:58 JF [id number] 06/18/23 11:01 Document 06/25/23 09:48 DL [id number] 06/25/23 09:56 DL 06/04/23 06/18/23 06/25/23 10:15 10:58 09:48 - Today's Visit Information Type of service Follow-up Visit Follow-up Visit Follow-up Visit (Physician/GATE SUPERVISOR (Physician/GATE SUPERVISOR (Physician/GATE SUPERVISOR ) ) ) Arrival Mode Ambulatory Ambulatory [...] Date Recorded By Document 06/04/23 10:15 AK [id number] 06/04/23 10:17 AK Document 06/18/23 10:58 JF [id number] 06/18/23 11:01 Document 06/25/23 09:48 DL [id number] 06/25/23 09:56 DL 06/04/23 06/18/23 06/25/23 10:15 [...] None Present (0 %) %) -Granulation Quality Calamus N/A -Slough/Fibrin Yes No -Necrosis Amt Medium [...] Date Recorded By Document 06/04/23 12:01 PL [id number] 06/04/23 12:02 PL Document 06/18/23 12:17 PL [id number] 06/18/23 12:19 PL 06/04/23 06/18/23 12:01 12:17 [...] -Expiration Date 02/29/28 03/30/28 -Product Lot Number [id number] 001 -Percent Used 100 100 -Bleeding [...] Recorded Date Recorded By Document 06/04/23 10:49 [id number] 06/04/23 10:49 Document 06/18/23 10:58 [id number] 06/18/23 11:01 06/04/23 06/18/23 10:49 10:58 Wound [...] No signs of infection. Pain: May take yzmx-taa-fwlcaoe Tylenol as needed for discomfort. Host factors: Basal cell carcinoma left lower extremity, edema. ? I answered all the patient's questions.? To return to the wound healing center in 3 weeks or call sooner if the patient has any questions or concerns. 06/25/23 1136 <Electronically signed by Lindsey Walsh DPM> Cosigner Signature (if applicable): CC: ~ Signed [facility] Work Phone: 1(208) 845-935507-20-2023 Progress note Author Lindsey Nico [facility] June 18, 2023 5:46pm Note Date/Time June 18, 2023 9:48 am [facility] [address] [place] [address] Progress Note - Wound Care 06/18/23 0947 MR#: [id number] Acct: [id number] Name: PARAGVICKIE CLEMONS Rep #:[id number] 07 : 1955 67 From: Lindsey sykes DPM PCP: Dr. Nicol Ibanez MD [facility] Location: History of Present Illness Date [...] locally at the wound care center at [facility]. She states following a few [...] Date Recorded By Document 06/04/23 10:15 DONNIE [id number] 06/04/23 10:17 DONNIE 06/04/23 10:15 WC - Today's Visit Information Type of service Follow-up Visit (Physician/GATE SUPERVISOR ) Arrival Mode Ambulatory Patient Identification Verified [...] Date Recorded By Document 06/04/23 10:15 AK [id number] 06/04/23 10:17 AK 06/04/23 10:15 Wound Center [...] Attached -Granulation Amt Medium (34-66%) -Granulation Quality Calamus -Slough/Fibrin Yes -Necrosis Amt Medium (34-66%) -Necrotic [...] Date Recorded By Document 06/04/23 12:01 PL [id number] 06/04/23 12:02 PL 06/04/23 12:01 Wound Center [...] Disc -Expiration Date 02/29/28 -Product Lot Number [id number] -Percent Used 100 -Bleeding Controlled with [...] Recorded Date Recorded By Document 06/04/23 10:49 [id number] 06/04/23 10:49 ARNOLDO 06/04/23 10:49 Wound Care [...] No signs of infection. Pain: May take rlwv-syq-haqmmry Tylenol as needed for discomfort. Host factors: Basal cell carcinoma left lower extremity, edema. ? I answered all the patient's questions.? To return to the wound healing center in 1 week or call sooner if the patient has any questions or concerns. 06/18/23 1746 <Electronically signed by Lindsey Walsh DPM> Cosigner Signature (if applicable): CC: ~ Signed [facility] Work Phone: 1(434) 275-982007-06-2023 Progress note Author Lindsey Nico [facility] June 04, 2023 1:00pm Note Date/Time June 04, 2023 1:00p [facility] [address] [place] [address] Progress Note - Wound Care 06/04/23 1255 MR#: [id number] Acct: [id number] Name: VICKIE GONZALEZ Rep #:[id number] 13 : [...] locally at the wound care center at [facility]. She states following a few [...] Date Recorded By Document 06/04/23 10:15 DONNIE [id number] 06/04/23 10:17 DONNIE 06/04/23 10:15 - Today's Visit Information Type of service Follow-up Visit (Physician/GATE SUPERVISOR ) Arrival Mode Ambulatory Patient Identification Verified [...] Date Recorded By Document 06/04/23 10:15 AK [id number] 06/04/23 10:17 AK 06/04/23 10:15 Wound Center [...] Attached -Granulation Amt Medium (34-66%) -Granulation Quality Calamus -Slough/Fibrin Yes -Necrosis Amt Medium (34-66%) -Necrotic [...] Date Recorded By Document 06/04/23 12:01 PL [id number] 06/04/23 12:02 PL 06/04/23 12:01 Wound Center [...] Disc -Expiration Date 02/29/28 -Product Lot Number [id number] -Percent Used 100 -Bleeding Controlled with [...] Date Recorded By Document 06/04/23 10:49 ARNOLDO [id number] 06/04/23 10:49 ARNOLDO 06/04/23 10:49 Wound Care [...] No signs of infection. Pain: May take fvtg-cgo-tjhentc Tylenol as needed for discomfort. Host factors: Basal cell carcinoma left lower extremity, edema. ? I answered all the patient's questions.? To return to the wound healing center in 2 weeks or call sooner if the patient has any questions or concerns. 06/04/23 1300 <Electronically signed by Lindsey Walsh DPM> Cosigner Signature (if applicable): CC: ~ Signed [facility] Work Phone: 1(262) 174-166106-29-2023 Progress note Author Lindsey Walsh [facility] May 28, 2023 10:20am Note Date/Time May 28, 2023 9:53 am [facility] [address] [place] [address] Progress Note - Wound Care 05/28/23 0952 MR#: [id number] Acct: [id number] Name: VICKIE GONZALEZ Rep #:[id number] 08 : 1955 67 From: Lindsey sykes DPM PCP: Dr. Nicol Ibanez MD Status:[facility] Location: History of Present Illness Date of [...] locally at the wound care center at [facility]. She states following a few [...] Recorded Date Recorded By Document 04/30/23 09:24 [id number] 04/30/23 09:40 Document 05/07/23 09:26 AK [id number] 05/07/23 09:28 AK Document 05/14/23 09:34 [id number] 05/14/23 09:46 KW Document 05/21/23 11:54 AK [id number] 05/21/23 11:56 AK 04/30/23 05/07/23 05/14/23 09:24 09:26 09:34 - Today's Visit Information Type of service Follow-up Visit Follow-up Visit Follow-up Visit (Physician/GATE SUPERVISOR (Physician/GATE SUPERVISOR (Physician/GATE SUPERVISOR ) ) ) Arrival Mode Ambulatory Ambulatory [...] Visit Information Type of service Follow-up Visit (Physician/GATE SUPERVISOR ) Arrival Mode Ambulatory Patient Identification Verified [...] Date Recorded By Document 04/30/23 09:24 JF [id number] 04/30/23 09:40 JF Document 05/07/23 09:26 AK [id number] 05/07/23 09:28 AK Document 05/14/23 09:34 KW [id number] 05/14/23 09:46 KW Document 05/21/23 11:54 AK [id number] 05/21/23 11:56 AK 04/30/23 05/07/23 05/14/23 09:24 [...] Medium (34-66%) Medium (34-66%) -Granulation Quality Red Calamus -Slough/Fibrin Yes Yes -Necrosis Amt Small (1-33%) [...] Attached -Granulation Amt Medium (34-66%) -Granulation Quality Calamus -Slough/Fibrin Yes -Necrosis Amt Medium (34-66%) -Necrotic Tissue Type -Structure Exposed N/A -Texture (Nighat-wound Skin Appearance) Assessed, Scarring -Moisture (Nighat-wound Skin Appearance) No Abnormality, Assessed [...] Date Recorded By Document 04/30/23 12:15 PL [id number] 04/30/23 12:17 PL Document 05/07/23 12:36 PL [id number] 05/07/23 12:38 PL Document 05/14/23 12:06 PL [id number] 05/14/23 12:08 PL Edit Result 05/14/23 12:06 PL (1) [id number] 05/15/23 12:47 PL Document 05/21/23 12:16 PL [id number] 05/21/23 12:17 PL (1) #1 L medial [...] Date 01/29/28 01/29/28 02/29/28 -Product Lot Number [id number] 002 -Percent Used 100 100 [...] Disc -Expiration Date 02/29/28 -Product Lot Number [id number] -Percent Used 100 -Bleeding Controlled with [...] Date Recorded By Document 04/30/23 09:59 AK [id number] 04/30/23 10:00 AK Undo 04/30/23 09:59 AK Adjusting Time [id number] 04/30/23 10:01 AK Document 05/07/23 10:09 AK [id number] 05/07/23 10:10 AK Document 05/14/23 12:06 PL [id number] 05/14/23 12:08 PL Document 05/21/23 10:33 KW [id number] 05/21/23 10:44 KW 05/07/23 05/14/23 05/21/23 10:09 [...] No signs of infection. Pain: May take jhmm-osr-cxlvioo Tylenol as needed for discomfort. Host factors: Basal cell carcinoma left lower extremity, edema. ? I answered all the patient's questions.? To return to the wound healing center in 1 week or call sooner if the patient has any questions or concerns. 05/28/23 1020 <Electronically signed by Lindsey Walsh DPM> Cosigner Signature (if applicable): CC: ~ Signed [facility] Work Phone: 1(768) 176-185406-22-2023 Progress note Author Lindsey Walsh [facility] May 21, 2023 12:31pm Note Date/Time May 21, 2023 9:57 am [facility] [place] [address] [address] Progress Note - Wound Care 05/21/23 0957 MR#: [id number] Acct: [id number] Name: VICKIE GONZALEZ Rep #:[id number] 07 : [...] locally at the wound care center at [facility]. She states following a few [...] Date Recorded By Document 04/30/23 09:24 JANIE [id number] 04/30/23 09:40 JANIE Document 05/07/23 09:26 AK [id number] 05/07/23 09:28 AK Document 05/14/23 09:34 KW [id number] 05/14/23 09:46 KW 04/30/23 05/07/23 05/14/23 09:24 09:26 09:34 - Today's Visit Information Type of service Follow-up Visit Follow-up Visit Follow-up Visit (Physician/GATE SUPERVISOR (Physician/GATE SUPERVISOR (Physician/GATE SUPERVISOR ) ) ) Arrival Mode Ambulatory Ambulatory [...] Date Recorded By Document 04/30/23 09:24 JANIE [id number] 04/30/23 09:40 Document 05/07/23 09:26 AK [id number] 05/07/23 09:28 AK Document 05/14/23 09:34 KW [id number] 05/14/23 09:46 KW 04/30/23 05/07/23 05/14/23 09:24 [...] Medium (34-66%) Medium (34-66%) -Granulation Quality Red Calamus -Slough/Fibrin Yes Yes -Necrosis Amt Small (1-33%) [...] Date Recorded By Document 04/30/23 12:15 PL [id number] 04/30/23 12:17 PL Document 05/07/23 12:36 PL [id number] 05/07/23 12:38 PL Document 05/14/23 12:06 PL MR3604 05/14/23 12:08 PL Edit Result 05/14/23 12:06 PL (1) [id number] 05/15/23 12:47 PL (1) #1 L medial [...] Date 01/29/28 01/29/28 02/29/28 -Product Lot Number [id number] 002 -Percent Used 100 100 [...] Date Recorded By Document 04/30/23 09:59 AK [id number] 04/30/23 10:00 AK Undo 04/30/23 09:59 AK Adjusting Time [id number] 04/30/23 10:01 AK Document 05/07/23 10:09 AK [id number] 05/07/23 10:10 AK Document 05/14/23 12:06 PL [id number] 05/14/23 12:08 PL 05/07/23 05/14/23 10:09 12:06 [...] No signs of infection. Pain: May take fbkh-bnk-ovhwqqf Tylenol as needed for discomfort. Host factors: Basal cell carcinoma left lower extremity, edema. ? I answered all the patient's questions.? To return to the wound healing center in 1 week or call sooner if the patient has any questions or concerns. 05/21/23 1231 <Electronically signed by Lindsey Walsh DPM> Cosigner Signature (if applicable): CC: ~ Signed [facility] Work Phone: 1(197) 226-532606-15-2023 Progress note Author Lindsey Walsh [facility] May 14, 2023 10:27am Note Date/Time May 14, 2023 9:[address] [facility] [address] [place] [address] Progress Note - Wound Care 05/14/23 0942 MR#: [id number] Acct: [id number] Name: VICKIE GONZALEZ Rep #:[id number] 07 : 1955 67 From: Lindsey sykes DPM PCP: Dr. Nicol Ibanez MD [facility] Location: History of Present Illness Date [...] locally at the wound care center at [facility]. She states following a few [...] Recorded Date Recorded By Document 04/30/23 09:24 [id number] 04/30/23 09:40 Document 05/07/23 09:26 DONNIE [id number] 05/07/23 09:28 AK 04/30/23 05/07/23 09:24 09:26 - Today's Visit Information Type of service Follow-up Visit Follow-up Visit (Physician/GATE SUPERVISOR (Physician/GATE SUPERVISOR ) ) Arrival Mode Ambulatory Ambulatory Patient [...] Recorded Date Recorded By Document 04/30/23 09:24 [id number] 04/30/23 09:40 Document 05/07/23 09:26 AK [id number] 05/07/23 09:28 AK 04/30/23 05/07/23 09:24 09:26 [...] Medium (34-66%) Medium (34-66%) -Granulation Quality Red [place] -Slough/Fibrin Yes Yes -Necrosis Amt Small (1-33%) [...] Date Recorded By Document 04/30/23 12:15 PL [id number] 04/30/23 12:17 PL Document 05/07/23 12:36 PL [id number] 05/07/23 12:38 PL 04/30/23 05/07/23 12:15 12:36 [...] -Expiration Date 01/29/28 01/29/28 -Product Lot Number [id number] -Percent Used 100 100 -Bleeding [...] Date Recorded By Document 04/30/23 09:59 AK [id number] 04/30/23 10:00 AK Undo 04/30/23 09:59 AK Adjusting Time [id number] 04/30/23 10:01 AK Document 05/07/23 10:09 AK [id number] 05/07/23 10:10 AK 05/07/23 10:09 Wound Care [...] No signs of infection. Pain: May take kcqw-wtl-urxuhzw Tylenol as needed for discomfort. Host factors: Basal cell carcinoma left lower extremity, edema. ? I answered all the patient's questions.? To return to the wound healing center in 1 week or call sooner if the patient has any questions or concerns. 05/14/23 1027 <Electronically signed by Lindsey Walsh DPM> Cosigner Signature (if applicable): CC: ~ Signed [facility] Work Phone: 1(214) 497-815906-08-2023 Progress note Author Lindsey Walsh [facility] May 07, 2023 9:42am Note Date/Time May 07, 2023 9:14a m [facility] [address] [place] [address] Progress Note - Wound Care 05/07/23912 MR#: [id number] Acct: [id number] Name: PARAGVICKIE CLEMONS Rep #:[id number] 06 : [...] locally at the wound care center at [facility]. She states following a few [...] Date Recorded By Document 04/30/23 09:24 JANIE [id number] 04/30/23 09:40 JANIE 04/30/23 09:24 WC - Today's Visit Information Type of service Follow-up Visit (Physician/GATE SUPERVISOR ) Arrival Mode Ambulatory Patient Identification Verified [...] Recorded Date Recorded By Document 04/30/23 09:24 [id number] 04/30/23 09:40 04/30/23 09:24 Wound Center Nurse [...] Date Recorded By Document 04/30/23 12:15 PL [id number] 04/30/23 12:17 PL 04/30/23 12:15 Wound Center [...] Disc -Expiration Date 01/29/28 -Product Lot Number [id number] -Percent Used 100 -Bleeding Controlled with [...] Date Recorded By Document 04/30/23 09:59 AK [id number] 04/30/23 10:00 AK Undo 04/30/23 09:59 AK Adjusting Time [id number] 04/30/23 10:01 AK Assessment/Plan Assessment/Plan (1) Non-pressure [...] No signs of infection. Pain: May take fbcz-vbt-dioblam Tylenol as needed for discomfort. Host factors: Basal cell carcinoma left lower extremity, edema. ? I answered all the patient's questions.? To return to the wound healing center in 1 week or call sooner if the patient has any questions or concerns. 05/07/2342 <Electronically signed by Lindsey Walsh DPM> Cosigner Signature (if applicable): CC: ~ Signed [facility] Work Phone: 1(304) 471-180106-01-2023 Progress note Author Lindsey Walsh [facility] April 30, 2023 12:52pm Note Date/Time April 30, 2023 9:50a m [facility] [address] [place] [address] Progress Note - Wound Care 04/30/23 0946 MR#: [id number] Acct: [id number] Name: VICKIE GONZALEZ Rep #:[id number] : [...] locally at the wound care center at [facility]. She states following a few [...] Date Recorded By Document 04/30/23 09:24 JF [id number] 04/30/23 09:40 JANIE 04/30/23 09:24 WC - Today's Visit Information Type of service Follow-up Visit (Physician/GATE SUPERVISOR ) Arrival Mode Ambulatory Patient Identification Verified [...] Date Recorded By Document 04/30/23 09:24 JANIE [id number] 04/30/23 09:40 JF 04/30/23 09:24 Wound Center [...] No signs of infection. Pain: May take qtpz-eim-xqsmmko Tylenol as needed for discomfort. Host factors: Basal cell carcinoma left lower extremity, edema. ? I answered all the patient's questions.? To return to the wound healing center in 1 week or call sooner if the patient has any questions or concerns. 04/30/23 1252 <Electronically signed by Lindsey Walsh DPM> Cosigner Signature (if applicable): CC: ~ Signed [facility] Work Phone: 1(235) 272-839605-25-2023 Progress note Author Lindsey Walsh [facility] April 23, 2023 10:15am Note Date/Time April 23, 2023 9:34a m [facility] [address] [place] [address] Progress Note - Wound Care 04/23/23 0933 MR#: [id number] Acct: [id number] Name: VICKIE GONZALEZ Rep #:[id number] : [...] locally at the wound care center at [facility]. She states following a few [...] Date Recorded By Document 04/16/23 08:58 DONNIE [id number] 04/16/23 09:14 PA Document 04/23/23 09:23 JANIE [id number] 04/23/23 09:27 JF 04/16/23 04/23/23 08:58 09:23 - Today's Visit Information Type of service Initial Visit Follow-up Visit (Physician/GATE SUPERVISOR ) Arrival Mode Ambulatory Ambulatory Patient Identification [...] Date Recorded By Document 04/16/23 08:58 DONNIE [id number] 04/16/23 09:14 PA Document 04/23/23 09:23 JANIE [id number] 04/23/23 09:27 JANIE 04/16/23 04/23/23 08:58 09:23 [...] Amt Small (1-33%) Small (1-33%) -Granulation Quality [place] Pale -Slough/Fibrin Yes Yes -Necrosis Amt Large [...] Date Recorded By Document 04/16/23 10:10 NAYELI [id number] 04/16/23 10:11 PL 04/16/23 10:10 Wound Center [...] Date Recorded By Document 04/16/23 10:02 DL [id number] 04/16/23 10:04 DL 04/16/23 10:02 Wound Care [...] No signs of infection. Pain: May take eiiq-rkf-nzrqxet Tylenol as needed for discomfort. Host factors: Basal cell carcinoma left lower extremity, edema. I answered all the patient's questions. To return to the wound healing center in 1 week or call sooner if the patient has any questions or concerns. 04/23/23 1015 <Electronically signed by Lindsey Walsh DPM> Cosigner Signature (if applicable): CC: ~ Signed [facility] Work Phone: 1(799) 824-125405-18-2023 History and physical note Author Lindsey Walsh [facility] April 16, 2023 12:36pm Note Date/Time April 16, 2023 9:19a m [facility] [address] [place] [address] H&P Exam - Wound Care 04/16/23 0919 MR#: [id number] Acct: [id number] Name: VICKIE GONZALEZ Rep #:[id number] : [...] locally at the wound care center at [facility]. She states following a few days after the procedure she was on the treadmill and did have some swelling of the lower extremity site to which she feels may have worsened the wound. States she will continue to follow with dermatology for continued monitoring/follow-up. She currently denies any N/V/F/chills. Denies further complaints. [facility] Medical History (Updated 04/16/23 @ 12:17 by [...] Date Recorded By Document 04/16/23 08:58 DONNIE [id number] 04/16/23 09:14 DONNIE 04/16/23 08:58 WC - [...] Date Recorded By Document 04/16/23 08:58 DONNIE [id number] 04/16/23 09:14 AK 04/16/23 08:58 Wound Center [...] Attached -Granulation Amt Small (1-33%) -Granulation Quality [place] -Slough/Fibrin Yes -Necrosis Amt Large (67-100%) -Necrotic [...] No signs of infection. Pain: May take ymvt-fgk-drpnarn Tylenol as needed for discomfort. Host factors: Basal cell carcinoma left lower extremity, edema. I answered all the patient's questions. To return to the wound healing center in 1 week or call sooner if the patient has any questions or concerns. 04/16/23 8600 <Electronically signed by Lindsey Walsh DPM> Cosigner Signature (if applicable): CC: ~ Signed [facility] Work Phone: 1(772) 546-447602-22-2023 History of Present illness Narrative* Angelica Hsieh Tonia, GATE SUPERVISOR - 01/21/2023 2:30 PM EST [facility] 1 year TAVR follow up Patient Name: Vickie Gonzalez Admit Date: MR #: [id number] : 1955 Physicians: Nicol Ibanez MD (Family) [...] es, she will be discharged from the [facility]. She will continue to follow with PCP and primary sales marketing. Hypertension, hypertensive today in the office but home readings are significantly lower ranging between 120-140 systolic. Have asked her to track BP three times a week over the next 2 weeks and notify [facility] if systolic greater than 150 consistently. [...] TR and RVSP 46mmHg. Last cardiac catheterization [id number] showed patent DYE and MISSY with 100% [...] Valve Replacement; Surgeon: Lindsey Plummer MD; Location: [facility] HYBRID OR; Service: Cardiovascular CARDIAC CATHETERIZATION N/A 01/21/2022 Procedure: Angiogram - Aortic Root; Surgeon: Lindsey Plummer MD; Location: [facility] HYBRID OR; Service: Cardiovascular CARDIAC CATHETERIZATION N/A 01/21/2022 Procedure: Temporary Pacemaker; Surgeon: Lindsey Plummer MD; Location: [facility] HYBRID OR; Service: Cardiovascular CARDIAC CATHETERIZATION N/A 01/21/2022 Procedure: Valvuloplasty - Aortic Valve; Surgeon: Lindsey Plummer MD; Location: [facility] HYBRID OR; Service: Cardiovascular HC LEFT HEART CATH N/A 01/15/2022 Procedure: LEFT HEART CATH; Surgeon: Silvio Mckeon MD; Location: [facility] JAVA SOFTWARE ARCHITECT; Service: Cardiovascular TAVR FEMORAL APPROACH N/A 01/21/2022 Procedure: TRANSCATHETER AORTIC VALVE REPLACEMENT FEMORAL APPROACH; Surgeon: Meir Arthur MD; Location: [facility] HYBRID OR; Service: Cardiothoracic TOTAL KNEE ARTHROPLASTY [...] by mouth daily . Yes Historical Provider, ZLBDYBY-VPZJNEANU-VAXB ORAL Take 1 tablet by mouth daily [...] Component Value Date HGBA1C 6.1 (H) 01/09/2022 @UUEWDMW33@ Echocardiogram complete Result Date: 01/21/2023 Patient Info Name: VICKIE GONZALEZ Age: 67 years : 1955 Gender: Female Ht: 167 cm Wt: 105 kg BSA: 2.26 m2 HR: 1 bpm BP: 157 / 89 mmHg Technical Quality: Fair Exam Date: 01/21/2023 9:06 AM Patient Status: Outpatient Tick Inspector: Shirin Rabago, MILLER, RDCS (PE, AE) Exam Type: ECHOCARDIOGRAM COMPLETE Study Info Indications - Valve disease/murmur Attending Physician: ANGELICA RANDALL Referring Physician: [id number], TONIA; [id number] BMI: 37.73 kg/m2 Summary 1. Left ventricular [...] LVOT VTI/AV VTI Ratio 0.4 LVOT Stroke Eglazt64 ml LVOT Stroke Index 23.93 ml/m2 Pulmonic Valve Name Value Normal PV Regurgitation Doppler FL Peak End Diastolic Velocity 128 cm/s Mitral [...] on 01/21/2023 10:15 AM documented in this [id number] Note* Addendum Note - Terrie Oh RN - 01/19/2023 6:49 AM ESTAddended by: TERRIE [place] on: 01/19/2023 06:49 AM Modules accepted: Orders [id number] Miscellaneous Notes* Addendum Note - Terrie Oh RN - 01/19/2023 6:49 AM ESTAddended by: TERRIE [place] on: 01/19/2023 06:49 AM Modules accepted: Orders documented in this [id number] History of Present illness Narrative* Angelica Randall CNP - 02/19/2022 11:24 AM EDT [facility] 30 DAY TAVR FOLLOW UP Patient Name: Vickie Gonzalez Admit Date: MR #: [id number] : 1955 Physicians: Nicol Ibanez MD (Family) [...] Valve Replacement; Surgeon: Lindsey Plummer MD; Location: [facility] HYBRID OR; Service: Cardiovascular CARDIAC CATHETERIZATION N/A 01/21/2022 Procedure: Angiogram - Aortic Root; Surgeon: Lindsey Plummer MD; Location: [facility] HYBRID OR; Service: Cardiovascular CARDIAC CATHETERIZATION N/A 01/21/2022 Procedure: Temporary Pacemaker; Surgeon: Lindsey Plummer MD; Location: [facility] HYBRID OR; Service: Cardiovascular CARDIAC CATHETERIZATION N/A 01/21/2022 Procedure: Valvuloplasty - Aortic Valve; Surgeon: Lindsey Plummer MD; Location: [facility] HYBRID OR; Service: Cardiovascular HC LEFT HEART CATH N/A 01/15/2022 Procedure: LEFT HEART CATH; Surgeon: Silvio Mckeon MD; Location: [facility] JAVA SOFTWARE ARCHITECT; Service: Cardiovascular TAVR FEMORAL APPROACH N/A 01/21/2022 Procedure: TRANSCATHETER AORTIC VALVE REPLACEMENT FEMORAL APPROACH; Surgeon: Meir Arthur MD; Location: [facility] HYBRID OR; Service: Cardiothoracic TOTAL KNEE ARTHROPLASTY [...] by mouth daily . Yes Historical Provider, FPBAHZY-AOLAAMBSR-OBHQ ORAL Take 1 tablet by mouth daily [...] Component Value Date HGBA1C 6.1 (H) 01/09/2022 @TQXSHWK09@ ECG 12 Lead Result Date: 01/22/2022 Sinus [...] Date: 01/21/2022 12:12 PM Patient Status: Outpatient Tick Inspector: Jolanta Klein RDCS, ЮЛИЯ Exam Type: ECHOCARDIOGRAM LIMITED WITH CONTRAST Study Info Indications - INTRAOP TAVR Attending Physician: LINDSEY PLUMMER Referring Physician: [id number] Chase; [id number] BMI: 36.32 kg/m2 Summary 1. Limited two-dimensional, [...] Date: 01/21/2022 1:41 PM Patient Status: Outpatient Mother Baby Rn:Muriel Medina RVT, RDMS Referring Physician: TONIA Jimenez; Attending Physician: LINDSEY PLUMMER Indications Z98.890 - Other specified postprocedural states - left femoral artery pseudoaneurysm, please perform compression therapy if able Procedure Description 69172 Duplex scan of lower extremity arteries or [...] Date: 01/22/2022 8:51 AM Patient Status: Inpatient Tick Inspector: Geraldo Carlos RDCS, ЮЛИЯ Exam Type: ECHOCARDIOGRAM COMPLETE Study Info Indications - Other Attending Physician: LINDSEY PLUMMER Referring Physician: TONIA Jimenez; [id number] BMI: 37.28 kg/m2 Summary 1. Leftventricular systolic [...] Name Value Normal MV Doppler MV Decel Logan 386 cm/s2 MV PHT 77 ms MV [...] on 01/22/2022 05:15 PM documented in this [id number] Note* Addendum Note - Terrie Oh RN - 02/13/2022 7:54 AM EDTAddended by: TERRIE [place] on: 02/13/2022 07:54 AM Modules accepted: Orders [id number] Miscellaneous Notes* Addendum Note - Terrie Oh RN - 02/13/2022 7:54 AM EDTAddended by: TERRIE [place] on: 02/13/2022 07:54 AM Modules accepted: Orders documented in this [id number] History of Present illness Narrative* Angelica Randall CNP - 02/03/2022 10:00 AM EST Telephone Visit Via Phone Call [facility] [address] [place] [phone] Telephone Visit [facility] 02/03/2022 Angelica Randall CNP Provider Location: office Patient Location Icer Machine: None Patient Location: Patient's Home Patient: Vickie [...] there are inherent diagnostic limitations compared to tnpb-oj-yxzs evaluations. We elected toproceed with the telephone [...] Take 1 tablet by mouth daily . CKIJOCA-AIOEKBVWM-MLDS ORAL Take 1 tablet by mouth daily [...] symptoms. She will follow up with the [facility] again at4 weeks post TAVR with TTE, labwork and ECG. I have spent 16 minutes with the patient reviewing the HPI and Plan of Care. documented in this [id number] Hospital course Narrative* Angelica Randall CNP - 01/22/2022 10:54 AM EST DISCHARGE SUMMARY Patient: Vickie Gonzalez Date of : 1955 Site: [facility] Family Provider: Nicol Ibanez MD [...] Take 1 tablet by mouth daily . CFRRVGH-WJLENRMAB-ISNP ORAL Take 1 tablet by mouth daily [...] Provider: Nicol Ibanez MD, Address: [address] / [place] [address] Follow Up: Phase 2 Cardiac Rehabilitation-Centre Please call ext. [phone] to schedule. Call in 2 week(s) Nicol Ibanez MD [address] [place] [address] Follow up Please call to schedule follow up appt for 8 weeks from discharge Angelica Randall CNP [address] [address] Follow up Office has scheduled appts at 2 weeks and 4 weeks from discharge Blaine Silveira MD [address] [id number] Follow up Please call to schedule follow up appt with Dr. Silveira Additional Information: Patient instructions, including activity, were given to the patient/family at discharge. Please seethe After Visit Summary in the electronic medical record for details. Time spent on discharge: > 30 minutes Completed by: Angelica Randall CNP on 01/22/22, 10:54 AM documented in this [id number] Consult note* Marsha Torres RN - 01/22/2022 8:58 AM EST AVS reviewed with patient/family. Discussed importance of medications, follow up appointments, and Cardiac Rehab with patient/family.Discussed with patient that their physician has referred him/her to our outpatient Cardiac Rehabilitation program. A Cardiac Rehabilitation nurse will contact patientor patient may call [phone] for additional information. [facility] brochure pro vided to patient/family.The Cardiac Rehabilitation Program will be provided the patient's referral information and pertinent patient details and history. Patient chosen location is . [id number] Consult note* Marsha Torres RN - 01/22/2022 8:58 AM EST AVS reviewed with patient/family. Discussed importance of medications, follow up appointments, and Cardiac Rehab with patient/family.Discussed with patient that their physician has referred him/her to our outpatient Cardiac Rehabilitation program. A Cardiac Rehabilitation nurse will contact patientor patient may call [phone] for additional information. [facility] brochure pro vided to patient/family.The Cardiac Rehabilitation Program will be provided the patient's referral information and pertinent patient details and history. Patient chosen location is . documented in this [id number] Evaluation + Plan note* Assessment & Plan Note - Angelica Randall CNP - 01/22/2022 8:12 AM EST Associated Problem(s): Severe aortic stenosis S/p TAVR with 34mm Evolut Pro Plus via RFA [id number] Miscellaneous Notes* Assessment & Plan Note - [...] (66 y.o.) Date of Service: 01/21/2022 CSN: [id number] Procedure(s): Transcatheter Aortic Valve Replacement TRANSCATHETER AORTIC VALVE REPLACEMENT FEMORAL APPROACH Pre-Operative Diagnoses: * severe aortic stenosis Post-Operative Diagnoses: * Same as Pre-Op Diagnosis Surgeon(s) and Role: Panel 1: * Lindsey Plummer MD - Primary * Stanley Grant MD Panel 2: * Meir Arthur MD - Primary * Robert Pugh MD Anesthesiologist: Chapito Mohan MD Student Nurse Maritime Engineer: Deep Sawant Welcome Hostess: Kishan Rascon RN; Alena Barker, TECHNOLOGIST; Gina Ann RN; Judd Hoover RN Licensed Massage Practitioner: Zulma Bowen Scrub Person: ST Raven; Danette [...] Implant Name Type Inv. Item Serial No. Manager Drilling Lot No. LRB No. Used Action CLOSURE PERCLOSE PROSTYLE - [id number] Closure Device CLOSURE PERCLOSE PROSTYLE GARAY VAS N/A 2 Implanted VALVE 34MM EVOLUT PRO AORTIC - [id number] Percutaneous Valve VALVE 34MM EVOLUT PRO AORTIC [id number] [employer] N/A 1 Implanted Drain(s): * No LDAs found * Wound(s): * No LDAs found * Robert Pugh MD 01/21/2022 12:24 PM * Op Note - Robert Pugh MD - 01/21/2022 7:22 AM EST VICKIE GONZALEZ [id number] 1955 DATE 01/21/2022 OPERATIVE REPORT SURGEON ROBERT [...] satisfactory condition. MD Killian VILLATORO 01/21/2022 12:30 [id number] T 01/21/2022 12:47 WJF/MODL documented in this [id number] History of Present illness Narrative* Angelica Randall CNP - 01/22/2022 8:04 AM EST Patient Name: Vickie Gonzalez MR #: [id number] POD # 1 Subjective: No complaints Objective: [...] discuss with SH team documented in this [id number] Note* Quick Note - Gaby Evans RN - 01/22/2022 4:58 AM EST .. Patient oriented to room and call system: yes Goal and Plan of Care written on whiteboard: yes Dual RN skin assessment completed with: Kaley Barcenas How will patient get home at discharge: Family will take pt home [id number] Note* Brief Op Note - Robert Pugh MD - 01/21/2022 12:24 PM EST Brief Post Operative Note Patient Name: Vickie Gonzalez : 1955 (66 y.o.) Date of Service: 01/21/2022 CSN: [id number] Procedure(s): Transcatheter Aortic Valve Replacement TRANSCATHETER AORTIC VALVE REPLACEMENT FEMORAL APPROACH Pre-Operative Diagnoses: * severe aortic stenosis Post-Operative Diagnoses: * Same as Pre-Op Diagnosis Surgeon(s) and Role: Panel 1: * Lindsey Plummer MD - Primary * Stanley Grant MD Panel 2: * Meir Arthur MD - Primary * Robert Pugh MD Anesthesiologist: Chapito Mohan MD Student Nurse Maritime Engineer: Deep Sawant Welcome Hostess: Kishan Rascon RN; Alena Barker, TECHNOLOGIST; Gina Ann, JERRY; Judd Hoover RN Licensed Massage Practitioner: Zulma Bowen Scrub Person: ST Raven; Danette [...] Implant Name Type Inv. Item Serial No. Manager Drilling Lot No. LRB No. Used Action CLOSURE PERCLOSE PROSTYLE - [id number] Closure Device CLOSURE PERCLOSE PROSTYLE GARAY VAS N/A 2 Implanted VALVE 34MM EVOLUT PRO AORTIC - [id number] Percutaneous Valve VALVE 34MM EVOLUT PRO AORTIC [id number] [employer] N/A 1 Implanted Drain(s): * No LDAs found * Wound(s): * No LDAs found * Robert Pugh MD 01/21/2022 12:24 PM [employer] Work Phone: 1(333) 694-147502-22-2022 Attending History and physical note* Angelica Randall CNP - 01/21/2022 10:05 AM EST INTERVAL HISTORY AND PHYSICAL Patient Name: Vickie Gonzalez Admit Date: 2220101 MR #: [id number] : 1955 The H&P has been reviewed [...] Name: Vickie Gonzalez Admit Date: MR #: [id number] : 1955 Physicians: Nicol Ibanez MD (Family) [...] tablet by mouth daily . Historical Provider, LQVFCGH-CUPQLEFIQ-ROIS ORAL Take 1 tablet by mouth daily [...] Wt 106.3 kg (234 lb 5.6 oz) KdM544% BMI 37.82 kg/m General: Alert, cooperative, no [...] Component Value Date HGBA1C 6.1 (H) 01/09/2022 @WQICGXY01@ CT TAVR Chest Abdomen Pelvis without hydration [...] acute process in the abdomen or pelvis. [employer]/tde Workstation ID: [id number] Carotid Duplex Result Date: 01/09/2022 Patient Info Name: VICKIE GONZALEZ Age: 66 years : 1955 Gender: Female Exam Date: 01/09/2022 11:00 AM Patient Status: Outpatient Mother Baby Rn: Corina BOWDEN RVT^^^^ Referring Physician: ANGELICA RANDALL ; Attending Physician: ANGELICA RANDALL Indications I35.0 - Aortic valve stenosis, severe Z01.810 - Pre-operative cardiovascular examination R09.89 - Other specified symptoms and signs involving the circulatory and respiratory systems - Preop TAVR Procedure Description 29029 Duplex examination using B-mode, color and spectral [...] (valve) insufficiency Referring Physician: BLAINE SILVEIRA ; [id number] BMI:36.64 kg/m2 Summary 1. Left ventricular systolic [...] mmHg MV VTI 28 cm MV Decel Logan 718 cm/s2 MV PHT 48 ms MVArea [...] cm/s AR VTI 179 cm AR Decel Logan 490 cm/s2 AR PHT 283 ms AR [...] ml/m2 16-34 RA Dimensions RA Systolic Major [place] Length (4C) 7.17 cm <=5.30 RAArea (4C) 28.7 cm2 <=18.0 RA Area (4C) Index 13 cm2/m2 RA ESV (4C MOD) 90 ml 15-27 RA ESV Index (4C MOD) 40 ml/m2 <=27 Report Signatures Finalized by Diego Fox MD, [facility] on 12/30/2021 05:14 PM XR Chest AP/PA [...] stable. Stable examination. Stable cardiomegaly. Workstation ID: [id number] History and physical note* Angelica Randall CNP - 01/21/2022 10:05 AM EST INTERVAL HISTORY AND PHYSICAL Patient Name: Vickie Gonzalez Admit Date: 2220101 MR #: [id number] : 1955 The H&P has been reviewed [...] Name: Vickie Gonzalez Admit Date: MR #: [id number] : 1955 Physicians: Nicol Ibanez MD (Family) [...] tablet by mouth daily . Historical Provider, QJCWHLA-JOOHOWFME-CYRX ORAL Take 1 tablet by mouth daily [...] Wt 106.3 kg (234 lb 5.6 oz) WdJ776% BMI 37.82 kg/m General: Alert, cooperative, no [...] Component Value Date HGBA1C 6.1 (H) 01/09/2022 @NTQGGYJ80@ CT TAVR Chest Abdomen Pelvis without hydration [...] the abdomen or pelvis. [employer]/tde Workstation ID: [id number] Carotid Duplex Result Date: 01/09/2022 Patient Info Name: VICKIE GONZALEZ Age: 66 years : 1955 Gender: Female Exam Date: 01/09/2022 11:00 AM Patient Status: Outpatient Mother Baby Rn: Corina BOWDEN RVT^^^^ Referring Physician: ANGELICA RANDALL ; Attending Physician: ANGELICA RANDALL Indications I35.0 - Aortic valve stenosis, severe Z01.810 - Pre-operative cardiovascular examination R09.89 - Other specified symptoms and signs involving the circulatory and respiratory systems - Preop TAVR Procedure Description 18174 Duplex examination using B-mode, color and spectral [...] (valve) insufficiency Referring Physician: BLAINE SILVEIRA ; [id number] BMI:36.64 kg/m2 Summary 1. Left ventricular systolic [...] mmHg MV VTI 28 cm MV Decel Logan 718 cm/s2 MV PHT 48 ms MVArea [...] cm/s AR VTI 179 cm AR Decel Logan 490 cm/s2 AR PHT 283 ms AR [...] ml/m2 16-34 RA Dimensions RA Systolic Major [place] Length (4C) 7.17 cm <=5.30 RAArea (4C) [...] stable. Stable examination. Stable cardiomegaly. Workstation ID: [id number] documented in this [id number] Note* Op Note - Robert Pugh MD - 01/21/2022 7:22 AM EST VICKIE GONZALEZ [facility] [id number] 1955 DATE 01/21/2022 OPERATIVE REPORT SURGEON ROBERT [...] condition. ROBERT PUGH MD D 01/21/2022 12:30 [id number] T 01/21/2022 12:47 WJF/MODL [id number] Nurse Surgical operation note* Luly Arceo RN - 01/17/2022 12:24 PM EST [facility] Surgical Department Patient Instructions for [facility]: Prior to surgery: Please bathe the [...] if desired. When you arrive at the [facility] on the day of your surgery, please note that card lacer parking is free. Pull up to the [...] to view our online educational program in [employer]? It is very helpful to watch this as it can help you understand your surgery preparation process here at [facility]. It will provide you with [...] contact surgeon's office with any additional questions. [id number] Nurse Note* Luly Arceo RN - 01/17/2022 12:24 PM EST [facility] Surgical Department Patient Instructions for [facility]: Prior to surgery: Please bathe the [...] if desired. When you arrive at the [facility] on the day of your surgery, please note that card lacer parking is free. Pull up to the [...] to view our online educational program in [employer]? It is very helpful to watch this as it can help you understand your surgery preparation process here at [facility]. It will provide you with [...] with any additional questions. documented in this [id number] Miscellaneous Notes* Assessment & Plan Note - [...] Lindsey Plummer MD, MSc, GILBERTO, FACC, FSCAI. [facility] documented in this [id number] History of Present illness Narrative* Lindsey Plummer MD - 01/09/2022 8:05 PM EST [facility] Consult Heart & Vascular [facility] 01/09/2022 Lindsey Plummer MD [facility] [address] [phone] Patient: Vickie Gonzalez Date of : 1955 [...] Lindsey Plummer MD, MSc, GILBERTO, FACC, FSCAI. [facility] Follow-up: No follow-ups on [...] Final Result by Muriel Guerra RN (01/09/2022 3870) Echocardiogram complete Final Result by Diego Fox MD (12/30/2021 1143) [facility] (Dry Wall Finisher read) (Results Pending) HOME Medications: Patient's Medications [...] Take 1 tablet by mouth daily . ZZQVJVE-BTRUSSBTY-SFDO ORAL Take 1 tablet by mouth daily [...] LDLCALC, LDLDIRECT, TRIG, HDL documented in this [id number] History of Present illness Narrative* Meir Arthur MD - 01/09/2022 1:07 PM EST [facility] TAVR CONSULTATION Patient Name: Vickie Gonzalez Admit Date: MR #: [id number] : 1955 Physicians: Nicol Ibanez MD (Family) [...] tablet by mouth daily . Historical Provider, BAXEHQT-HWQOFOOTU-MNQD ORAL Take 1 tablet by mouth daily [...] Wt 106.3 kg (234 lb 5.6 oz) [id number]% BMI 37.82 kg/m General: Alert, cooperative, no [...] Component Value Date HGBA1C 6.1 (H) 01/09/2022 @SABUTMV20@ CT TAVR Chest Abdomen Pelvis without hydration [...] acute process in the abdomen or pelvis. [employer]/tde Workstation ID: [id number] Carotid Duplex Result Date: 01/09/2022 Patient Info Name: VICKIE GONZALEZ Age: 66 years : 1955 Gender: Female Exam Date: 01/09/2022 11:00 AM Patient Status: Outpatient Mother Baby Rn: Corina BOWDEN RVT^^^^ Referring Physician: ANGELICA RANDALL ; Attending Physician: ANGELICA RANDALL Indications I35.0 - Aortic valve stenosis, severe Z01.810 - Pre-operative cardiovascular examination R09.89 - Other specified symptoms and signs involving the circulatory and respiratory systems - Preop TAVR Procedure Description 85518 Duplex examination using B-mode, color and spectral [...] (valve) insufficiency Referring Physician: BLAINE SILVEIRA ; [id number] BMI:36.64 kg/m2 Summary 1. Left ventricular systolic [...] mmHg MV VTI 28 cm MV Decel Logan 718 cm/s2 MV PHT 48 ms MVArea [...] cm/s AR VTI 179 cm AR Decel [place] 490 cm/s2 AR PHT 283 ms AR [...] ml/m2 16-34 RA Dimensions RA Systolic Major [place] Length (4C) 7.17 cm <=5.30 RAArea (4C) [...] stable. Stable examination. Stable cardiomegaly. Workstation ID: [id number] * Angelica Randall CNP - 01/09/2022 12:44 PM EST [facility] TAVR CONSULTATION Patient Name: Vickie Gonzalez Admit Date: MR #: [id number] : 1955 Physicians: Nicol Ibanez MD (Family) [...] tablet by mouth daily . Historical Provider, [id number] ORAL Take 1 tablet by mouth daily [...] Wt 106.3 kg (234 lb 5.6 oz) [id number]% BMI 37.82 kg/m General: Alert, cooperative, no [...] Component Value Date HGBA1C 6.1 (H) 01/09/2022 @BEQNZNR23@ CT TAVR Chest Abdomen Pelvis without hydration [...] acute process in the abdomen or pelvis. [employer] Workstation ID: [id number] Carotid Duplex Result Date: 01/09/2022 Patient Info Name: VICKIE GONZALEZ Age: 66 years : 1955 Gender: Female Exam Date: 01/09/2022 11:00 AM Patient Status: Outpatient Mother Baby Rn: Corina BOWDEN RVT^^^^ Referring Physician: ANGELICA RANDALL ; Attending Physician: ANGELICA RANDALL Indications I35.0 - Aortic valve stenosis, severe Z01.810 - Pre-operative cardiovascular examination R09.89 - Other specified symptoms and signs involving the circulatory and respiratory systems - Preop TAVR Procedure Description 56220 Duplex examination using B-mode, color and spectral [...] (valve) insufficiency Referring Physician: BLAINE SILVEIRA ; [id number] BMI:36.64 kg/m2 Summary 1. Left ventricular systolic [...] mmHg MV VTI 28 cm MV Decel [place] 718 cm/s2 MV PHT 48 ms MVArea [...] cm/s AR VTI 179 cm AR Decel Logan 490 cm/s2 AR PHT 283 ms AR [...] ml/m2 16-34 RA Dimensions RA Systolic Major [place] Length (4C) 7.17 cm <=5.30 RAArea (4C) 28.7 cm2 <=18.0 RA Area (4C) Index 13 cm2/m2 RA ESV (4C MOD) 90 ml 15-27 RA ESV Index (4C MOD) 40 ml/m2 <=27 Report Signatures Finalized by Diego Fox MD, [facility] on 12/30/2021 05:14 PM XR Chest AP/PA [...] stable. Stable examination. Stable cardiomegaly. 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, but stopped * Assessment & Plan Note - Blaine Silveira MD - 06/10/2021 11:29 AM EDT Associated Problem(s): Aortic insufficiency symptoms could also be Aortic Stenosis/AI will recheck echo * Assessment & Plan Note - Blaine Silveira MD - 06/10/2021 11:24 AM EDT Associated Problem(s): Coronary artery disease involving [place] coronary artery of [place] heart without angina pectoris Has had 2 spells of chest / jaw discomfort and shortness of breath, relieved with rest Will get a stress, she will also check and walk and if gets predictable may need a cath continue asa/metoprolol and will give sl ntg documented in this [id number] History of Present illness Narrative* Blaine Silveira MD - 06/10/2021 11:34 AM EDT Patient Name: Vickie Gonzalez MR #: [id number] Interventional Cardiology Blaine Silveira MD, [facility] 06/10/21 Dear Nicol Ibanez MD, Vickie Gonzalez was seen in follow up for : Problem Coronary Artery Disease Involving [place] Coronary Artery of [place] Heart Without Angina Pectoris CABG 2000 Cath 2010 all grafts open Aortic Insufficiency Moderate to Severe Asx AI-- same 12/2017 only mild-moderate Elevated Sed Rate Hld (Hyperlipidemia) Assessment and Plan Coronary artery disease involving [place] coronary artery of [place] heart without angina pectoris Has had 2 [...] and also could be fibrosiing mediastinitis 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 [id number] ORAL Take 1 tablet by mouth daily [...] patient is not nervous/anxious. documented in this [id number] Instructions* Patient Instructions* Zoila Cueto MA - 06/10/2021 11:15 AM EDT How to contact your Care Team: Provider: Dr. Silveira Nurse: Iliana Madsen RN In case of an emergency please call 911. REFILLS: When in need for refills please call your care team or the office at [phone]. Please include medication name, pharmacy name, and specify 30-day or 90-day supply. Please check with your pharmacy within 24 hours of request for your refill. You must follow up as directed to continue current refills. Thank you! [facility]* Diagnosis Coronary artery disease involving [place] coronary artery of [place] heart without angina pectoris- Primary [facility] Diagnosis Coronary artery disease involving [place] coronary artery of [place] heart without angina pectoris Nonrheumatic aortic valve insufficiency Elevated sed rate Elevated sedimentation rate Mixed hyperlipidemia [facility] Diagnosis Nonrheumatic aortic valve insufficiency- Primary [facility]* Diagnosis Nonrheumatic aortic valve insufficiency- Primary [facility] Diagnosis Aortic valve stenosis, severe- Primary Aortic valve disorders Pre-operative cardiovascular examination Other specified symptoms and signs involving the circulatory and respiratory systems [facility] Diagnosis Aortic valve stenosis, severe- Primary Aortic valve disorders Pre-operative cardiovascular examination Other abnormal findings in urine Abnormal coagulation profile Abnormal coagulation profile Dyspnea, unspecified type Abnormal finding of blood chemistry, unspecified [facility] Diagnosis Encounter for preprocedure screening laboratory testing for COVID-19- Primary [facility] Diagnosis Encounter for preoperative screening laboratory testing for COVID-19 virus- Primary [facility] Diagnosis Encounter for preoperative screening laboratory testing for COVID-19 virus- Primary [facility] Diagnosis Severe aortic insufficiency- Primary Aortic valve stenosis, severe Aortic valve disorders Pre-operative cardiovascular examination [facility] Diagnosis Aortic valve stenosis, severe Aortic valve disorders Pre-operative cardiovascular examination [facility] Diagnosis Aortic valve stenosis, severe- Primary Aortic valve disorders Severe aortic insufficiency Aortic valve stenosis, severe Aortic valve disorders Severe aortic insufficiency Aortic valve stenosis, severe Aortic valve disorders Severe aortic insufficiency [facility] Diagnosis Aortic valve stenosis, severe Aortic valve disorders Severe aortic insufficiency Encounter for preprocedure screening laboratory testing for COVID-19- Primary Aortic valve stenosis, severe Aortic valve disorders Severe aortic insufficiency [facility] Diagnosis S/P TAVR (transcatheter aortic valve replacement)- Primary [facility] Diagnosis Severe aortic stenosis- Primary Aortic valve disorders S/P TAVR (transcatheter aortic valve replacement) [facility] S/P [facility]R (transcatheter aortic valve replacement)- Primary [facility] Diagnosis S/P TAVR (transcatheter aortic valve replacement)- Primary Shortness of breath Shortness of breath [facility] Diagnosis S/P TAVR (transcatheter aortic valve replacement)- Primary [facility] Diagnosis S/P TAVR (transcatheter aortic valve replacement)- Primary Hypertension, unspecified type [facility] Diagnosis Onset Date Resolution Status Basal cell carcinoma (BCC) of left lower extremity acute [id number] acute BMI 40.0-44.9, adult chronic HTN (hypertension) chronic [facility] Work Phone: Evaluation note* Diagnosis Onset Date Resolution Status Basal cell carcinoma (BCC) of left lower extremity acute [id number] acute BMI 40.0-44.9, adult chronic HTN (hypertension) chronic Basal cell carcinoma (BCC) of left lower extremity acute [id number] acute BMI 40.0-44.9, adult chronic HTN (hypertension) chronic 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 [facility] Work Phone: Evaluation note* Diagnosis Onset Date Resolution Status Basal cell carcinoma (BCC) of left lower extremity acute [id number] acute BMI 40.0-44.9, adult chronic HTN (hypertension) chronic Basal cell carcinoma (BCC) of left lower extremity acute [id number] acute BMI 40.0-44.9, adult chronic HTN (hypertension) chronic 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 Basal cell carcinoma (BCC) of left lower extremity acute [id number] acute BMI 40.0-44.9, adult chronic HTN (hypertension) chronic 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 [facility] Work Phone: Evaluation note* Diagnosis Onset Date Resolution Status Basal cell carcinoma (BCC) of left lower extremity acute [id number] acute BMI 40.0-44.9, adult chronic HTN (hypertension) chronic Basal cell carcinoma (BCC) of left lower extremity acute [id number] acute BMI 40.0-44.9, adult chronic HTN (hypertension) chronic 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 Basal cell carcinoma (BCC) of left lower extremity acute [id number] acute BMI 40.0-44.9, adult chronic HTN (hypertension) chronic 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 Basal cell carcinoma (BCC) of left lower extremity acute [id number] acute HTN (hypertension) chronic 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 [facility] Work Phone: Evaluation note* Diagnosis Osteoarthritis of right knee, unspecified osteoarthritis type- Primary Hypertension, unspecified type [facility] Diagnosis Osteoarthritis of right knee- Primary Osteoarthrosis, unspecified whether generalized or localized, lower leg Coronary artery disease involving [place] coronary artery of [place] heart without angina pectoris- Primary Osteoarthritis of right knee, unspecified osteoarthritis type Severe aortic insufficiency Osteoarthritis of right knee, unspecified osteoarthritis type [facility] Work [facility]* Diagnosis Osteoarthritis of right knee- Primary Osteoarthrosis, unspecified whether generalized or localized, lower leg MSSA (methicillin susceptible Staphylococcus aureus)- Primary Methicillin susceptible Staphylococcus aureus in conditions classified elsewhere and of unspecified site Osteoarthritis of right knee, unspecified osteoarthritis type [facility] Diagnosis Osteoarthritis of right knee- [...] right knee replacement [facility] Diagnosis Status post total right knee replacement- Primary [facility]* Diagnosis Status post total right knee replacement- Primary [facility] Diagnosis Status post total right knee replacement- Primary [facility]* Diagnosis Status post total right knee replacement- Primary [facility] Diagnosis Status post total right knee replacement- Primary [facility]* Diagnosis Status post total right knee replacement- Primary [facility] Diagnosis Status post total right knee replacement- Primary [facility]* Diagnosis Status post total right knee replacement- Primary [facility] Diagnosis Status post total right knee replacement- Primary [facility]* Diagnosis Status post total right knee replacement- Primary documented in this encounter [facility] note* Diagnosis Status post total right knee replacement- Primary [facility]* Diagnosis Status post total right knee replacement- Primary [facility]* Attachments The following attachments cannot be sent through Care Everywhere. * Transcatheter Aortic Valve Implantation (LIONEL): Post-op ([place]ian) [facility] Additional Instructions Ice your left eye several times a day for the next few days, follow-up with your PCP and return for any worsening of your symptoms.[facility] Work Phone: Patient's home Plan of care note* Visit Details [facility] Disc[facility] -[facility] Problems Problem Start Date Status Goals Interventions Wound Care and/or Skin Problems Disciplines: Penitentiary 01/27/2024 Active 1 goal linked to scheduled/documented intervention 1 goal intervention scheduled/documented in this visit Assess and Instruct Home Visit Disciplines: Penitentiary 01/27/2024 Active 1 goal linked to scheduled/documented intervention 4 goal interventions scheduled/documented in this visit Medication Management Disciplines: Penitentiary 01/27/2024 Active 1 goal linked to scheduled/documented intervention 1 goal intervention scheduled/documented in this visit Pain Management Disciplines: Penitentiary 01/27/2024 Active 1 goal linked to scheduled/documented [...] [facility] OASIS Star t of Care Discipline -Penitentiary Problems Problem Start Date Status Goals Interventions Wound Care and/or Skin Problems Disciplines: Penitentiary 01/27/2024 Active 1 goal linked to scheduled/documented intervention 1 goal intervention scheduled/documented in this visit Assess and Instruct Home Visit Disciplines: Penitentiary 01/27/2024 Active 1 goal linked to scheduled/documented intervention 4 goal interventions scheduled/documented in this visit Medication Management Disciplines: Penitentiary 01/27/2024 Active 1 goal linked to scheduled/documented intervention 1 goal intervention scheduled/documented in this visit Pain Management Disciplines: Penitentiary 01/27/2024 Active 1 goal linked to scheduled/documented [...] Management Goal:Pain Completed documented in this encounter [facility] Plan of care note* Visit [...] Care Plan Scheduled documented in this encounter [facility] Plan of care note* Visit Details Visit Type -PROPERTY MANAGEMENT SPECIALIST Routine Visi t Discipline -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 Problems [...] also Clinician taught: patient Clinician instructed on: airline captain educated pt on importance of increased elevation frequency d/t considerable swelling this date which is hindering ROM. pt verbalized understanding, plan to elevate at least 4 times a day c foot above heart as instructed pt PROPERTY MANAGEMENT SPECIALIST this date. chair flex stretch and heel slides x10, ext prop 5'. QS, SAQ, SLR, LAQ x20 ea to improve mobility and strength. pt c/o significant tightness in knee during flex stretching and mod increased pain. airline captain educated pt on importance of pushing flex [...] flex during amb d/t tightness in knee. airline captain provided demo of good toe off and allowing knee to bend during toe off to improve mobility and flex rom. pt c mod improvement p airline captain demo. Therapist provided cueing for proper TA from seated position, including reaching back for chair and feeling chair c back of legs to avoid falls. Cueing also provided for slow, eccentric control c return to sitting position. pt sba for sit to supine ta this date. airline captain assisted pt c placement of pillows for cp and elevation p tx to allow for relaxed position to allow pt to remain elevated for 1 hour to decrease inflammation Patient/caregiver is able to teach back 90% of instruction. [facility] Visit Details Visit Type -PROPERTY MANAGEMENT SPECIALIST Routine Visi t Discipline -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 Problems [...] in quad tendon insertion during flex stretching. airline captain provided mod assist c flex stretching to improve mobility. airline captain provided education on importance of flex stretching [...] amb 175' today c fww and sba. airline captain provided demo and vc for increased step [...] 95% of instruction. documented in this encounter [facility] Plan of care note* Visit Details Visit Type -SN HH Routine Vi sit Discipline -Penitentiary Problems Problem Start Date Status Goals Interventions Wound Care and/or Skin Problems Disciplines: Penitentiary 01/27/2024 Active 1 goal linked to scheduled/documented intervention 1 goal intervention scheduled/documented in this visit Assess and Instruct Home Visit Disciplines: Penitentiary 01/27/2024 Active 1 goal linked to scheduled/documented intervention 4 goal interventions scheduled/documented in this visit Medication Management Disciplines: Penitentiary 01/27/2024 Active 1 goal linked to scheduled/documented intervention 1 goal intervention scheduled/documented in this visit Pain Management Disciplines: Penitentiary 01/27/2024 Active 1 goal linked to scheduled/documented [...] Management Goal:Pain Completed [facility] Visit Details Visit Type -PROPERTY MANAGEMENT SPECIALIST Routine Visi t Discipline -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 Problems [...] toe gait pattern c decresaed vc needed. airline captain instructed pt to continue c frequent ambulation [...] 95% of instruction. [facility]* Visit Details Visit Type -POLISHER ALUMINUM Routine Discipline -[facility]itentiary Problems Problem Start Date Status Goals Interventions Wound Care and/or Skin Problems Disciplines: Penitentiary 01/27/2024 Active 1 goal linked to scheduled/documented intervention 1 goal intervention scheduled/documented in this visit Assess and Instruct Home Visit Disciplines: Penitentiary 01/27/2024 Active 1 goal linked to scheduled/documented intervention 4 goal interventions scheduled/documented in this visit Medication Management Disciplines: Penitentiary 01/27/2024 Active 1 goal linked to scheduled/documented intervention 1 goal intervention scheduled/documented in this visit Pain Management Disciplines: Penitentiary 01/27/2024 Active 1 goal linked to scheduled/documented [...] Management Goal:Pain Completed [facility] Visit Details Visit Type -PROPERTY MANAGEMENT SPECIALIST Routine Visi t Discipline -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 Problems [...] progress. very tight, firm end feel c airline captain assisted heel slides this date Patient/caregiver is able to teach back 95% of instruction. Instruct Mobility Problem:Mobility Goal:Mobility Completed Patient reports: walking more but does report increased pain this date d/t decerase pain med freqency. Clinician taught: patient Clinician instructed on: airline captain educated pt on not weaning off pain [...] 95% of instruction. [facility] Visit Details Visit Type -SN HH OASIS Star t of Care Discipline -Penitentiary Problems Problem Start Date Status Goals Interventions Wound Care and/or Skin Problems Disciplines: Penitentiary 01/27/2024 Active 1 goal linked to scheduled/documented intervention 1 goal intervention scheduled/documented in this visit Assess and Instruct Home Visit Disciplines: Penitentiary 01/27/2024 Active 1 goal linked to scheduled/documented intervention 4 goal interventions scheduled/documented in this visit Medication Management Disciplines: Penitentiary 01/27/2024 Active 1 goal linked to scheduled/documented intervention 1 goal intervention scheduled/documented in this visit Pain Management Disciplines: Penitentiary 01/27/2024 Active 1 goal linked to scheduled/documented [...] Management Goal:Pain Completed [facility] Visit Details Visit Type -POLISHER ALUMINUM Routine Discipline -Penitentiary Problems Problem Start Date Status Goals Interventions Wound Care and/or Skin Problems Disciplines: Penitentiary 01/27/2024 Active 1 goal linked to scheduled/documented intervention 1 goal intervention scheduled/documented in this visit Assess and Instruct Home Visit Disciplines: Penitentiary 01/27/2024 Active 1 goal linked to scheduled/documented intervention 4 goal interventions scheduled/documented in this visit Medication Management Disciplines: Penitentiary 01/27/2024 Active 1 goal linked to scheduled/documented intervention 1 goal intervention scheduled/documented in this visit Pain Management Disciplines: Penitentiary 01/27/2024 Active 1 goal linked to scheduled/documented [...] Management Goal:Pain Completed [facility] Visit Details Visit Type -PROPERTY MANAGEMENT SPECIALIST Routine Visi t Discipline -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 Problems [...] in quad tendon insertion during flex stretching. airline captain provided mod assist c flex stretching to improve mobility. airline captain provided education on importance of flex stretching [...] amb 175' today c fww and sba. airline captain provided demo and vc for increased step [...] 95% of instruction. [facility]* Visit Details Visit Type -PROPERTY MANAGEMENT SPECIALIST Routine Visi t Discipline -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 Problems [...] toe gait pattern c decresaed vc needed. airline captain instructed pt to continue c frequent ambulation [...] 95% of instruction. [facility] Visit Details Visit Type -PROPERTY MANAGEMENT SPECIALIST Routine Visi t Discipline -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 Problems [...] also Clinician taught: patient Clinician instructed on: airline captain educated pt on importance of increased elevation frequency d/t considerable swelling this date which is hindering ROM. pt verbalized understanding, plan to elevate at least 4 times a day c foot above heart as instructed pt PROPERTY MANAGEMENT SPECIALIST this date. chair flex stretch and heel slides x10, ext prop 5'. QS, SAQ, SLR, LAQ x20 ea to improve mobility and strength. pt c/o significant tightness in knee during flex stretching and mod increased pain. airline captain educated pt on importance of pushing flex [...] flex during amb d/t tightness in knee. airline captain provided demo of good toe off and allowing knee to bend during toe off to improve mobility and flex rom. pt c mod improvement p airline captain demo. Therapist provided cueing for proper TA from seated position, including reaching back for chair and feeling chair c back of legs to avoid falls. Cueing also provided for slow, eccentric control c return to sitting position. pt sba for sit to supine ta this date. airline captain assisted pt c placement of pillows for cp and elevation p tx to allow for relaxed position to allow pt to remain elevated for 1 hour to decrease inflammation Patient/caregiver is able to teach back 90% of instruction. [facility] Visit Details Visit Type -PROPERTY MANAGEMENT SPECIALIST Routine Visi t Discipline -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 Problems [...] RA for DC to outpt PT at [facility] Home Exercise Program Problem:Home Exercise Program Goal:Home [...] pt amb c sc and sba today. airline captain provided vc and demo for proper 2 [...] 100% of instruction. [facility] Visit Details Visit Type - HH [facility] [place] t of Care Discipline -Penitentiary Problems Problem Start Date Status Goals Interventions Wound Care and/or Skin Problems Disciplines: Penitentiary 01/27/2024 Active 1 goal linked to scheduled/documented intervention 1 goal intervention scheduled/documented in this visit Assess and Instruct Home Visit Disciplines: Penitentiary 01/27/2024 Active 1 goal linked to scheduled/documented intervention 4 goal interventions scheduled/documented in this visit Medication Management Disciplines: Penitentiary 01/27/2024 Active 1 goal linked to scheduled/documented intervention 1 goal intervention scheduled/documented in this visit Pain Management Disciplines: Penitentiary 01/27/2024 Active 1 goal linked to scheduled/documented [...] Type -SN HH Non-OASIS/ Discipline DC Discipline -Penitentiary Problems Problem Start Date Status Goals Interventions Wound Care and/or Skin Problems Disciplines: Penitentiary 01/27/2024 Resolved on 02/11/2024 1 goal linked to scheduled/documented intervention 1 goal intervention scheduled/documented in this visit Assess and Instruct Home Visit Disciplines: Penitentiary 01/27/2024 Resolved on 02/11/2024 1 goal linked to scheduled/documented intervention 4 goal interventions scheduled/documented in this visit Medication Management Disciplines: Penitentiary 01/27/2024 Resolved on 02/11/2024 1 goal linked to scheduled/documented intervention 1 goal intervention scheduled/documented in this visit Pain Management Disciplines: Penitentiary 01/27/2024 Resolved on 02/11/2024 1 goal linked [...] Management Goal:Pain Scheduled [facility] Visit Details Visit Type -PROPERTY MANAGEMENT SPECIALIST Routine Visi t Discipline -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 Problems [...] RA for DC to outpt PT at [facility] Home Exercise Program Problem:Home Exercise Program Goal:Home [...] pt amb c sc and sba today. airline captain provided vc and demo for proper 2 [...] Progress note* Actions [facility]. Reviewed care plan, medications, pain mgmt, ice and elevation, S&S to report, wound care and safety with ambulation. Patient/caregiver verbalized understanding and agreement. [facility] Actions [facility]. Reviewed care plan, [...] teach wound/skin/incision care as per discharge instructions Hotel Service Manager Goals: Patient remains safe at home, Patient [...] questions or concerns. [facility] Actions Homebound Status [...] determined by P.T. [facility] Actions Homebound Status [...] determined by P.T. [facility] Actions CP assessment [...] determined by P.T. [facility] Actions [facility]. Reviewed care plan, medications, pain mgmt, ice and elevation, S&S to report, wound care and safety with ambulation. Patient/caregiver verbalized understanding and agreement. [facility] Actions CP assessment meds [...] Home: 2-story house [facility]* Actions Homebound Status Criteria [...] determined by P.T. [facility]* Actions Homebound Status Criteria [...] determined by P.T. documented in this encounter [facility] Progress note* Actions Homebound Status [...] Progress note* Actions Pt [facility]. Reviewed care plan, [...] determined by P.T. [facility] Auth/Cert Specialty Diagnoses / Procedures Referred By Contac t Referred To Contact Diagnoses severe aortic stenosis Procedures FL TRANSCATHETER TRANSAPICAL REPLACEMT AORTIC VALVE Transcatheter Aortic Valve Replacement TRANSCATHETER AORTIC VALVE REPLACEMENT FEMORAL APPROACH Referral ID Status Reason Start Date Expiration Date Visits Re quested Visits Authorized [id number] 1 1 [facility] Ass[facility] Diagnosis SOB (shortness of breath) Shortness of breath Diagnosis SOB (shortness of breath) Shortness of breath Coronary artery disease involving [place] coronary artery of [place] heart without angina pectoris Fibrosing mediastinitis Mediastinitis Nonrheumatic aortic valve insufficiency Diagnosis Nonrheumatic aortic valve insufficiency Summary Purpose Family History No Family History Records Found Relationship Condition Age at Onset Recorded Date/T ayleen mother Diabetes mellitus Unknown father Obstructive sleep apnea syndrome Unknown Advance Directives No Advanced Directives Records FoundDocuments on File Type Date Recorded Patient Compensation Analyst Expl anation Advance Directives and Living Will Documents on File Type Date Recorded Patient Compensation Analyst Expl anation Advance Directives and Livin g Will Advance Directives and Livin g Will 06/14/2019 12:00 AM Documents on File Type Date Recorded Patient Compensation Analyst Expl anation Advance Directives and Livin g Will Advance Directives and Livin g Will 06/14/2019 12:00 AM Documents on File Type Date Recorded Patient Compensation Analyst Expl anation Advance Directives and Livin g Will Advance Directives and Livin g Will 01/09/2022 7:51 AM Documents on File Type Date Recorded Patient Compensation Analyst Expl anation Advance Directives and Livin g [...] Documents on File Type Date Recorded Patient Compensation Analyst Expl anation Advance Directives and Livin g [...] No June 25, 2023 10:48am Power of Care Taker No June 25 10:48am Advance Directive Response Recorded Date/ Time Living Will No June 25, 2023 9:48am Power of Care Taker No June 25 9:48am Latest Code Status [...] Echocardiogram complete Blaine Silveira MD [address] [place] [address] Status Reason Specialty Diagnoses / Procedures Referre d By Contact Referred To Contact Closed Cardiology Diagnoses Nonrheumatic aortic valve insufficiency Procedures Echocardiogram complete Blaine Silveira MD [address] [place] [address] Status Reason Specialty Diagnoses / Procedures Referred By Contact Referred To Contact Authorized Cardiology Diagnoses Coronary artery disease involving [place] coronary artery of [place] heart without angina pectoris Procedures ECG 12 Lead Blaine Silveira MD [address] [place] [address] Status Reason Specialty Diagnoses / Procedures Referred By Contact Referred To Contact New Request Radiology Diagnoses Coronary artery disease involving [place] coronary artery of [place] heart without angina pectoris Procedures NM Myocardial [place]fusion [place] [address] [place] [address] Status Reason Specialty Diagnoses / Procedures Referred By Contact Referred To Contact New Request Cardiology Diagnoses Nonrheumatic aortic valve insufficiency Procedures [place] [address] [place] [address] Status Reason Specialty Diagnoses / Procedures Referred By Contact Referred To Contact Pending Review Cardiology Diagnoses Nonrheumatic aortic valve insufficiency Procedures [place] [address] [place] [address] Specialty Diagnoses / Procedures Referred By Contac t Referred To Contact Cardiology Diagnoses Aortic valve stenosis, severe Pre-operative cardiovascular examination Procedures ECG 12 Lead Dye, Angelica Hsieh CNP [address] [place] [address] Referral ID Status Reason Start Date Expiration Date V isits Requested Visits Authorized [id number] Authorized 12/31/2021 12/31/2022 1 1 Specialty Diagnoses / Procedures Referred By Contac t Referred To Contact Cardiology Diagnoses Aortic valve stenosis, severe Pre-operative cardiovascular examination Other specified symptoms and signs involving the circulatory and respiratory systems Procedures Carotid Duplex Dye, Angelica Hsieh GATE SUPERVISOR [address] [place] [address] Referral ID Status Reason Start Date Expiration Date V isits Requested Visits Authorized [id number] Authorized 12/31/2021 12/31/2022 1 1 Specialty Diagnoses / Procedures Referred By Contac t Referred To Contact Cardiology Diagnoses S/P TAVR (transcatheter aortic valve replacement) Procedures ECG 12 Lead ToniaAngelica Claudia, GATE SUPERVISOR [address] [facility] [address] [address] Referral ID Status Reason Start Date Expiration Date Visits Re quested Visits Authorized [id number] Closed 01/22/2022 01/22/2023 1 1 Specialty Diagnoses / Procedures Referred By Contac t Referred To Contact Cardiology Diagnoses S/P TAVR (transcatheter aortic valve replacement) Procedures Echocardiogram complete Angelica Randall, GATE SUPERVISOR [address] [facility] [address] [place] [phone] Referral ID Status Reason Start Date Expiration Date Visits Re quested Visits Authorized [id number] Closed 01/22/2022 01/22/2023 1 1 Specialty Diagnoses / Procedures Referred By Contac t Referred To Contact Cardiac Rehabilitation Diagnoses S/P TAVR (transcatheter aortic valve replacement) Angelica Randall, GATE SUPERVISOR [address] [facility] [address] [place] [phone] Referral ID Status Reason Start Date Expiration Date V isits Requested Visits Authorized [id number] Authorized 01/21/2022 01/21/2023 1 1 Referral ID Status Reason Start Date Expiration Date Visits Re quested Visits Authorized [id number] Closed 06/19/2022 06/19/2023 1 1 Referral ID Status Reason Start Date Expiration Date V isits Requested Visits Authorized [id number] Authorized 06/19/2022 06/19/2023 1 1 Specialty Diagnoses / Procedures Referred By Contac t Referred To Contact Cardiology Diagnoses Osteoarthritis of right knee, unspecified osteoarthritis type Jass Pepe MD [address] [place] [address] [facility] Gaby [address] [place], [place] [address] [place] [address] Referral ID Status Reason Start Date Expiration Date Visits Requested Visits Authorized [id number] Authorized Specialty Services Required/Pat ient's Best Interest 09/26/2024 1 1 Specialty Diagnoses / Procedures Referred By Yanet t Referred To Contact Radiology Diagnoses Osteoarthritis of right knee, unspecified osteoarthritis type Procedures CT Knee Right Without Contrast Jass Pepe MD [address] [place] [address] Referral ID Status Reason Start Date Expiration Date V isits Requested Visits Authorized [id number] New Request 09/27/2023 09/26/2024 1 1 Specialty Diagnoses / Procedures Referred By Yanet guerra Referred To Contact Rehabilitation Diagnoses Status post total right knee replacement Jass Pepe MD [address] [place] [address] [place] [phone] Referral ID Status Reason Start Date Expiration Date V isits Requested Visits Authorized [id number] Authorized 02/01/2024 01/31/2025 1 1 History of Present Illness * Blaine Silveira MD - 06/06/2019 2:56 PM EDT Patient Name: Vickie Gonzalez [facility] MR #: [id number] Interventional Cardiology Blaine Silveira MD, [facility] 06/06/19 Dear Nicol Ibanez MD, Vickie Gonzalez was seen in follow up for : Problem Coronary Artery Disease Involving [place] Coronary Artery of [place] Heart Without Angina Pectoris CABG 2001 Cath 2010 all grafts open Aortic Insufficiency Moderate to Severe Asx AI-- same 12/2017 Fibrosing Mediastinitis Dx at time of cabg Assessment and Plan Coronary artery disease involving [place] coronary artery of [place] heart without angina pectoris Rare angina Doing [...] puffs 2 (two) times a day . [id number] ORAL Take 1 tablet by mouth daily [...] cell carcinoma (BCC) of left lower extremity [id number] BMI 40.0-44.9, adult HTN (hypertension) Chief Complaint WOUND WOUND Reason for Visit Basal cell carcinoma (BCC) of left lower extremity [id number] BMI 40.0-44.9, adult HTN (hypertension) Basal cell carcinoma (BCC) of left lower extremity [id number] BMI 40.0-44.9, adult HTN (hypertension) Non-pressure chronic ulcer of left calf with fat layer exposed Chief Complaint WOUND WOUND WOUND LAC Reason for Visit Basal cell carcinoma (BCC) of left lower extremity [id number] BMI 40.0-44.9, adult HTN (hypertension) Basal cell carcinoma (BCC) of left lower extremity [id number] BMI 40.0-44.9, adult HTN (hypertension) Non-pressure chronic ulcer of left calf with fat layer exposed Basal cell carcinoma (BCC) of left lower extremity [id number] BMI 40.0-44.9, adult HTN (hypertension) Non-pressure chronic ulcer of left calf with fat layer exposed Chief Complaint WOUND WOUND WOUND LAC WOUND Reason for Visit Basal cell carcinoma (BCC) of left lower extremity [id number] BMI 40.0-44.9, adult HTN (hypertension) Basal cell carcinoma (BCC) of left lower extremity [id number] BMI 40.0-44.9, adult HTN (hypertension) Non-pressure chronic ulcer of left calf with fat layer exposed Basal cell carcinoma (BCC) of left lower extremity [id number] BMI 40.0-44.9, adult HTN (hypertension) Non-pressure chronic ulcer of left calf with fat layer exposed Basal cell carcinoma (BCC) of left lower extremity [id number] HTN (hypertension) Non-pressure chronic ulcer of left calf with fat layer exposed Chief Complaint E ORDERS Chief Complaint E ORDERS EORDER Additional Source Comments INFORMATION SOURCE (unrecogn ized section and content) DATE CREATED AUTHOR 05/24/2018 [facility] DATE CREATED AUTHOR AUTHOR'S ORGANIZ ATION 09/10/2022 [facility] DATE CREATED AUTHOR AUTHOR'S ORGANIZ ATION 01/25/2023 [facility] DATE CREATED AUTHOR AUTHOR'S ORGANIZ ATION 02/22/2023 [facility] DATE CREATED AUTHOR AUTHOR'S ORGANIZ ATION 11/15/2023 [facility] DATE CREATED AUTHOR AUTHOR'S ORGANIZ ATION 02/16/2024 [facility] DATE CREATED AUTHOR AUTHOR'S ORGANIZ ATION 03/15/2024 [facility] DATE CREATED AUTHOR AUTHOR'S ORGANIZ ATION 03/30/2024 [facility] DATE CREATED AUTHOR AUTHOR'S ORGANIZ ATION 01/14/2025 [facility] Reason for Visit (unrecogniz ed section and content) Reason Comments Annual Exam no complaints or con cerns for todays visit Status Reason Specialty Diagnoses / Procedures Referre d By Contact Referred To Contact Closed Cardiology Diagnoses Nonrheumatic aortic valve insufficiency Procedures Echocardiogram complete Blaine Silveira MD [address] [place] [address] Reason Comments Annual Exam Jaw Pain Shortness of Breath Reason Comments Initial Visit (Intake) TAVR Reason Comments Follow-up 2 Week TAVR Reason Comments Follow-up 1 Year TAVR Reason Comments Follow-up Specialty Diagnoses / Procedures Referred By Arcadioac t Referred To Contact Cardiology Diagnoses Osteoarthritis of right knee, unspecified osteoarthritis type Jass Pepe MD [address] [place] [address] Blaine Silveira MD [address] [place] [address] Referral ID Status Reason Start Date Expiration Date V isits Requested Visits Authorized [id number] Closed Specialty Services Required/Leda ent's Best Interest 09/27/2023 09/26/2024 1 1 Reason Onset Date Comments Medication Refill 01/11/2024 Reason Comments Pre-op Exam Specialty Diagnoses / Procedures Referred By Contac t Referred To Contact Referral ID Status Reason Start Date Expiration Date Visits Re quested Visits Authorized [id number] 1 1 Reason Onset Date Comments Medication Refill 02/08/2024 Reason Comments Follow-up Suture / Staple Removal Reason Comments 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 Specialty Diagnoses / Procedures Referred By Contac t Referred To Contact Rehabilitation Diagnoses Status post total right knee replacement Jass Pepe MD [address] [place] [phone] [facility] [address] [place] [address] Referral ID Status Reason Start Date Expiration Date V isits Requested Visits Authorized [id number] Authorized 02/01/2024 01/31/2025 13 199 Specialty Diagnoses / Procedures Referred By Yanet guerra Referred To Contact Rehabilitation Diagnoses Status post total right knee replacement Jass Pepe MD [address] [place], [place] [phone] [facility] [address] [place] [address] Assessment & Plan Note - Blaine Silveira [...] issues Associated Problem(s): Coronary artery disease involving [place] coronary artery of [place] heart without angina pectoris Rare angina Doing well, Medications reviewed and will continue current meds Followup 1 year documented in this encounter Care Teams (unrecognized sec tion and content) Maintenance Journeyman Relationship Specialty Start Date End Date Nicol Ibanez MD [address] [place] [address] PCP - General 08/26/11 Jass Pepe MD [address] [place] [address] Consulting Physician Orthopedic Surgery 05/20/16 Maintenance Journeyman Relationship Specialty Start Date End Date Nicol Ibanez MD [address] [place] [address] PCP - General 08/26/11 Jass Pepe MD [address] [place] [address] Consulting Physician Orthopedic Surgery 05/20/16 Maintenance Journeyman Relationship Specialty Start Date End Date Nicol Ibanez MD [address] [place] [address] PCP - General 08/26/11 Jass Pepe MD [address] [place] [address] Consulting Physician Orthopedic Surgery 05/20/16 Maintenance Journeyman Relationship Specialty Start Date End Date Nicol Ibanez MD [address] [place] [address] PCP - General 08/26/11 Jass Pepe MD [address] [place] [address] Consulting Physician Orthopedic Surgery 05/20/16 Maintenance Journeyman Relationship Specialty Start Date End Date Nicol Ibanez MD [address] [place] [address] PCP - General 08/26/11 Jass Pepe MD [address] [place] [address] Consulting Physician Orthopedic Surgery 05/20/16 Maintenance Journeyman Relationship Specialty Start Date End Date Nicol Ibanez MD [address] [place] [address] PCP - General 08/26/11 Jass Pepe MD [address] [place] [address] Consulting Physician Orthopedic Surgery 05/20/16 Maintenance Journeyman Relationship Specialty Start Date End Date Nicol Ibanez MD [address] [place] [address] PCP - General 08/26/11 Jass Pepe MD [address] [place] [address] Consulting Physician Orthopedic Surgery 05/20/16 Maintenance Journeyman Relationship Specialty Start Date End Date Nicol Ibanez MD [address] [place] [address] PCP - General 08/26/11 Jass Pepe MD [address] [facility] [place] [place] [address] Consulting Physician Orthopedic Surgery 05/20/16 Maintenance Journeyman Relationship Specialty Start Date End Date Nicol Ibanez MD [address] [place] [address] PCP - General 08/26/11 Jass Pepe MD [address] [place] [address] Consulting Physician Orthopedic Surgery 05/20/16 Maintenance Journeyman Relationship Specialty Start Date End Date Nicol Ibanez MD [address] [place] [address] PCP - General 08/26/11 Jass Pepe MD [address] [place] [address] Consulting Physician Orthopedic Surgery 05/20/16 Maintenance Journeyman Relationship Specialty Start Date End Date Nicol Ibanez MD [address] [place] [address] PCP - General 08/26/11 Jass Pepe MD [address] [place] [address] Consulting Physician Orthopedic Surgery 05/20/16 Maintenance Journeyman Relationship Specialty Start Date End Date Nicol Ibanez MD [address] [place] [address] PCP - General 08/26/11 Jass Pepe MD [address] [place] [address] Consulting Physician Orthopedic Surgery 05/20/16 Team Status: [...] MD Attending Provider, Emergency Provi aleksandar Active Maintenance Journeyman Relationship Specialty Start Date End Date Nicol Ibanez MD [address] [place] [address] PCP - General 08/26/11 Jass Pepe MD [address] [place] [address] Consulting Physician Orthopedic Surgery 05/20/16 Maintenance Journeyman Relationship Specialty Start Date End Date Nicol Ibanez MD [address] [place] [address] PCP - General 08/26/11 Jass Pepe MD [address] [place] [address] Consulting Physician Orthopedic Surgery 05/20/16 Team Status: Active Member Role Status Dates Dr. Nicol Ibanez MD Family Provider Active Dr. Kirill Newell MD Primary Care Provider Active Team Status: Inactive Member Role Status Dates Dr. Kirill Newell MD Primary Care Provide r, Attending Provider, Referring Provider Active Maintenance Journeyman Relationship Specialty Start Date End Date Nicol Ibanez MD [address] [place] [address] PCP - General 08/26/11 Jass Pepe MD [address] [place] [address] Consulting Physician Orthopedic Surgery 05/20/16 Maintenance Journeyman Relationship Specialty Start Date End Date Nicol Ibanez MD [address] [place] [address] PCP - General 08/26/11 Jass Pepe MD [address] [place] [address] Consulting Physician Orthopedic Surgery 05/20/16 Maintenance Journeyman Relationship Specialty Start Date End Date Nicol Ibanez MD [address] [place] [address] PCP - General 08/26/11 Jass Pepe MD [address] [place] [address] Consulting Physician Orthopedic Surgery 05/20/16 Maintenance Journeyman Relationship Specialty Start Date End Date Nicol Ibanez MD [address] [place] [address] PCP - General 08/26/11 Jass Pepe MD [address] [place] [address] Consulting Physician Orthopedic Surgery 05/20/16 Maintenance Journeyman Relationship Specialty Start Date End Date Nicol Ibanez MD [address] [place] [address] PCP - General 08/26/11 Jass Pepe MD [address] [place] [address] Consulting Physician Orthopedic Surgery 05/20/16 Maintenance Journeyman Relationship Specialty Start Date End Date Nicol Ibanez MD [address] [place] [address] PCP - General 08/26/11 Jass Pepe MD [address] [place] [address] Consulting Physician Orthopedic Surgery 05/20/16 Maintenance Journeyman Relationship Specialty Start Date End Date Nicol Ibanez MD [address] [place] [address] PCP - General 08/26/11 Jass Pepe MD [address] [place] [address] Consulting Physician Orthopedic Surgery 05/20/16 Maintenance Journeyman Relationship Specialty Start Date End Date Nicol Ibanez MD [address] [place] [address] PCP - General 08/26/11 Jass Pepe MD [address] [place] [address] Consulting Physician Orthopedic Surgery 05/20/16 Maintenance Journeyman Relationship Specialty Start Date End Date Nicol Ibanez MD [address] [place] [address] PCP - General 08/26/11 Jass Pepe MD [address] [place] [address] Consulting Physician Orthopedic Surgery 05/20/16 Maintenance Journeyman Relationship Specialty Start Date End Date Nicol Ibanez MD [address] [place] [address] PCP - General 08/26/11 Jass Pepe MD [address] [place] [address] Consulting Physician Orthopedic Surgery 05/20/16 Maintenance Journeyman Relationship Specialty Start Date End Date Nicol Ibanez MD [address] [place] [address] PCP - General 08/26/11 Jass Pepe MD [address] [place] [address] Consulting Physician Orthopedic Surgery 05/20/16 Maintenance Journeyman Relationship Specialty Start Date End Date Nicol Ibanez MD [address] [place] [address] PCP - General 08/26/11 Jass Pepe MD [address] [place] [address] Consulting Physician Orthopedic Surgery 05/20/16 Maintenance Journeyman Relationship Specialty Start Date End Date Nicol Ibanez MD [address] [place] [address] PCP - General 08/26/11 Jass Pepe MD [address] [place] [address] Consulting Physician Orthopedic Surgery 05/20/16 Maintenance Journeyman Relationship Specialty Start Date End Date Nicol Ibanez MD [address] [place] [address] PCP - General 08/26/11 Jass Pepe MD [address] [place] [address] Consulting Physician Orthopedic Surgery 05/20/16 Maintenance Journeyman Relationship Specialty Start Date End Date Nicol Ibanez MD [address] [place] [address] PCP - General 08/26/11 Jass Pepe MD [address] [place] [address] Consulting Physician Orthopedic Surgery 05/20/16 Maintenance Journeyman Relationship Specialty Start Date End Date Nicol Ibanez MD [address] [place] [address] PCP - General 08/26/11 Jass Pepe MD [address] [place] [address] Consulting Physician Orthopedic Surgery 05/20/16 Maintenance Journeyman Relationship Specialty Start Date End Date Nicol Ibanez MD [address] [place] [address] PCP - General 08/26/11 Jass Pepe MD [address] [place] [address] Consulting Physician Orthopedic Surgery 05/20/16 Maintenance Journeyman Relationship Specialty Start Date End Date Nicol Ibanez MD [address] [place] [address] PCP - General 08/26/11 Jass Pepe MD [address] [place] [address] Consulting Physician Orthopedic Surgery 05/20/16 Maintenance Journeyman Relationship Specialty Start Date End Date Nicol Ibanez MD [address] [place] [address] PCP - General 08/26/11 Jass Pepe MD [address] [place] [address] Consulting Physician Orthopedic Surgery 05/20/16 Maintenance Journeyman Relationship Specialty Start Date End Date Nicol Ibanez MD [address] [place] [address] PCP - General 08/26/11 Jass Pepe MD [address] [place] [address] Consulting Physician Orthopedic Surgery 05/20/16 Maintenance Journeyman Relationship Specialty Start Date End Date Nicol Ibanez MD [address] [place] [address] PCP - General 08/26/11 Jass Pepe MD [address] [place] [address] Consulting Physician Orthopedic Surgery 05/20/16 Maintenance Journeyman Relationship Specialty Start Date End Date Nicol Ibanez MD [address] [place] [address] PCP - General 08/26/11 Jass Pepe MD [address] [place] [address] Consulting Physician Orthopedic Surgery 05/20/16 Maintenance Journeyman Relationship Specialty Start Date End Date Nicol Ibanez MD [address] [place] [address] PCP - General 08/26/11 Jass Pepe MD [address] [place] [address] Consulting Physician Orthopedic Surgery 05/20/16 Scheduled Active [...] Gaby Evans RN)[id number] (Stopped - Provider: Gaby Evans RN)1021 (New Bag - Provider: Lisa Guzmán [...] PLACED TUBE OR TUBE less than 14 Indonesian For tube administration: dissolve tablet(s) with 4 [...] Thu01/21/22 at 1636, PACU (only), Arterial and [place] Annetta Lines at 300 mmHg 1738 (Canceled [...] BE BASED ON THE PRIMARY CLINICAL RECORDS. [facility] [employer] [facility]. provides no warranty or guarantee of the accuracy or completeness of information in this document.
--- NOTE | 2025-05-30 02:36 | ECHOD_ITS ---
Reason For Study Reason For Study: AFib/Flutter Procedure This was a 2D Doppler, Color Flow transthoracic echocardiogram. Exam performed portable in patient room. Left Ventricle Moderate eccentric left ventricular hypertrophy. Right Ventricle Normal right ventricle. Normal systolic function. Atria The left atrium is mildly enlarged. The right atrium is moderately enlarged. Mitral Valve There is moderate mitral annular calcification. Mild (1+) mitral valve insufficiency. Tricuspid Valve Normal tricuspid valve. Mild to moderate (1-2+) tricuspid valve insufficiency. Aortic Valve Normal function of aortic valve bioprosthesis/TAVR. Pulmonic Valve The pulmonic valve is not well visualized. Great Vessels The aortic root is not well visualized. Pericardium/Pleural No pericardial effusion. MMode/2D Measurements & Calculations LVIDd: 4.2 cm IVSd: 1.8 cm LVOT diam: 2.0 cm LVIDs: 2.9 cm LVPWd: 1.5 cm LVOT area: 3.0 cm2 RVDd: 4.5 cm FS: 32.0 % LAV(MOD-bp): 66.2 ml LVAd ap4: 33.0 cm2 SV(MOD-sp4): 58.0 ml LAV(MOD-bp) Indexed: 28.9 ml/m2 LVLd ap4: 8.2 cm SI(MOD-sp4): 25.3 ml/m2 LAV(MOD-sp2): 51.3 ml EDV(MOD-sp4): 107.6 ml LAV(MOD-sp4): 72.0 ml EDV(sp4-el): 112.4 ml LVAs ap4: 21.1 cm2 LVLs ap4: 7.9 cm ESV(MOD-sp4): 49.6 ml ESV(sp4-el): 47.6 ml EF(MOD-sp4): 53.9 % EF(sp4-el): 57.6 % SV(sp4-el): 64.8 ml LA A4 area: 23.7 cm2 RA A4 area: 30.9 cm2 Doppler Measurements & Calculations MV E max jessica: 124.3 cm/sec MV V2 max: 131.9 cm/sec Ao V2 max: 146.3 cm/sec MV max P.0 mmHg Ao max P.7 mmHg MV V2 mean: 66.9 cm/sec Ao V2 mean: 103.8 cm/sec MV mean P.3 mmHg Ao mean P.9 mmHg MV V2 VTI: 28.4 cm Ao V2 VTI: 28.6 cm AV (velocity ratio): 0.65 MVA(VTI): 2.0 cm2 DENNY(I,D): 2.0 cm2 DENNY(V,D): 1.9 cm2 LV V1 max: 92.0 cm/sec SV(LVOT): 56.7 ml TR max jessica: 283.4 cm/sec LV V1 max P.5 mmHg TR max P.1 mmHg LV V1 mean P.9 mmHg LV V1 mean: 64.6 cm/sec LV V1 VTI: 18.7 cm ECHO/Echo Complete Interpretation Summary Normal function of aortic valve bioprosthesis/TAVR Normal aortic valve bioprosthesis function Mildly enlarged left atrium Moderately enlarged right atrium Mild MR No pericardial effusion Mild to moderate TR Contrast echo used Definity. LV inflow/mitral inflow showed only E wave with loss of the atrial contractilit y patient is in atrial fibrillation No previous echo to compare Ordering Physician: Nestor Silva Performed By: Martin Lin RCS
--- OUTSIDE RECORDS SUMMARY | 2025-05-30 02:46 | XMS RPT_ITS | CCD ---
Author Organization [facility] CliniSyla Care Team Providers Care Emergency Dept Tech Name Role Phone Nicol Ibanez Unavailable Unavailable Jass Pepe Unavailable Blaine Silveira Unavailable Unavailable Blaine Silveira Unavailable Unavailable Nicol Ibanez Primary Care Provider Jass Pepe Unavailable [phone] Nicol Ibanez Primary Care Provider Jass Pepe [...] Marcelle HARPER, Nicol Osborn Primary Care Provider [phone] Afshin HARPER, Jass Maldonado Unavailable NICOL IBANEZ Primary Care Un[facility] Primary Care Unavailable ANGELICA [...] Unavailab le JASS PEPE Referring Unavailab le TOMCHAKNCIOL Primary Care Unavailable GABRIEL TOVAR Attending Unavailable [...] Admitting Unavailab le GUY, GABRIEL Attending Unavailable AJSS PEPE Referring Unavailab le AFSHIN, JASS MALDONADO [...] NSAIDs (4 sources) Naproxen Drug Allergy [facility] Quinolones (antibiotic) (4 sources) levoFLOXacin Drug Allergy [address] [place] [address] (20 sources) levoFLOXacin; Translations: [LEVOFLOXACIN] Propensity to adverse reactions to drug [address] [place] [address] Work Phone: (20 sources) naproxen; Translations: [NAPROXEN] Propensity to adverse reactions to drug [address] [place] [address] Work Phone: (1 source) ALLERGIES NOT ON FILE; Translations: [ALLERGIES NOT ON FILE] Propensity to adverse reactions (disorder) [facility] 2 Repository (1 source) Naproxen Drug Allergy [...] 29, 2018 12:00am March 16, 2018 8:23am GTVFXJC-ZUGNIQMTQ-UGKP ORAL (20 sources) take 1 tablet by mouth once daily KPMATBY-JELOZKFOZ-WFXM ORAL Take 1 tablet by mouth daily . 0 take 1 tablet by mouth once umm y XMLHASJ-VUXWJQDXZ-WMZA ORAL Take 1 tablet by mouth daily . 0 Suspended take 1 tablet by mouth once umm y TLXMGZE-MAFJKPEYA-TQWI ORAL Take 1 tablet by mouth daily . 0 Active take 1 tablet by mouth twice erinn ly WAFAFVF-RPZMJGRKJ-KKUD ORAL Take 1 tablet by mouth 2 [...] (two) times a day . 0 Active [id number] 200 actuat albuterol 0.09 mg/actuat metered dose [...] route twice daily azelastine-fluticasone (DYMISTA) 137-50 mcg/spray Silver Peak Instill 1 spray into each nostril 2 [...] 02/05/2024 docusate sodium 50 mg / sennosides, custodial 8.6 mg oral tablet (1 source) Start: [...] 01-22-2022 naloxone (NARCAN) injection 0.1 mg nystatin 191660 unt/ml oral suspension (14 sources) Polyene Antifungal Start: 08-10-2018 End: 02-28-2019 take 143051 [IU] by mouth three times daily Nystatin Discontinued 496646 UNIT PO THREE TIMES A DAY 60 [...] 0-10 mL of mixture polyethylene glycol 3350 17252 mg powder for oral solution (10 sources) [...] MG tablet Indications: Coronary artery disease involving [place] coronary artery of [place] heart without angina pectoris Take 1 (one) [...] End: 01-21-2022 sodium chloride 0.9% (NS) Tiotropium [place] (7 sources) Anticholinergic Start: 12-22-2017 End: 12-22-2017 take 1 puff(s) by inhalation once daily Tiotropium [place] (Spiriva Respimat) 2.5 mcg/actuation mist Discontinued 2 PUFF INHALATION daily December 22, 2017 12:00am December 22, 2017 10:44am Start: 12-22-2017 End: 12-22-2017 take 1 puff(s) by inhalation once daily Tiotropium [place] (Spiriva Respimat) 2.5 mcg/actuation mist Discontinued 2 [...] heart disease (20 sources) 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[place] artery; Translations: [Atherosclerotic heart disease of [place] coronary artery without angina pectoris] Onset: 11-05-2015 [...] Order Info: 0184-1 - CBCD Order Info: [id number] - SED Performed By: #### L 100.0100, L500.4050, L502.0250, L506.1000, L500.4100, L501.9520, L501.9985, L509.1000, L101.9900 #### [facility] [place], [address] Absolute Neut 3.8 X10 3/uL Normal 2.0-7.7 [facility] Comment on above: Order Comment: Order Date: 12/13/24 Order Info: 018-1 - CBCD Order Info: [id number] - SED Performed By: #### L 100.0100, L500.4050, L502.0250, L506.1000, L500.4100, L501.9520, L501.9985, L509.1000, L101.9900 #### [facility] [address] [place], [address] Basophils/100 WBC (Bld) 0.7 % Normal 0-1 [facility] Comment on above: Order Comment: Order Date: 12/13/24 Order Info: 183-11 - CBCD Order Info: [id number] - SED Performed By: #### L 100.0100, L500.4050, L502.0250, L506.1000, L500.4100, L501.9520, L501.9985, L509.1000, L101.9900 #### [facility] [address] [place], [address] Eosinophils/100 WBC (Bld) 3.0 % Normal 0-5 [facility] Comment on above: Order Comment: Order Date: 12/13/24 Order Info: [id number] - CBCD Order Info: [id number] - SED Performed By: #### L 100.0100, L500.4050, L502.0250, L506.1000, L500.4100, L501.9520, L501.9985, L509.1000, L101.9900 #### [facility] [address] [place], [address] Erythrocyte distribution width (RBC) [Ratio] 14.6 % Normal 11.6-14.6 [facility] Comment on above: Order Comment: Order Date: 12/13/24 Order Info: [id number] - CBCD Order Info: [id number] - SED Performed By: #### L 100.0100, L500.4050, L502.0250, L506.1000, L500.4100, L501.9520, L501.9985, L509.1000, L101.9900 #### [facility] [address] [place], [address] Hematocrit (Bld) [Volume fraction] 36.5 % Low 37-47 [facility] Comment on above: Order Comment: Order Date: 12/13/24 Order Info: 018-1 - CBCD Order Info: 71732-1 - SED Performed By: #### L 100.0100, L500.4050, L502.0250, L506.1000, L500.4100, L501.9520, L501.9985, L509.1000, L101.9900 #### [facility] [address] [place], [place], [address] Hemoglobin (Bld) [Mass/Vol] 11.6 g/dL Low 12.0-15.0 [facility] Comment on above: Order Comment: Order Date: 12/13/24 Order Info: 0184- - CBCD Order Info: [id number] - SED Performed By: #### L 100.0100, L500.4050, L502.0250, L506.1000, L500.4100, L501.9520, L501.9985, L509.1000, L101.9900 #### [facility] [address] [facility] [place], [place], [address] [phone] IG% 0.300 Normal 0.0-0.9 [facility] Comment on above: Order Comment: Order Date: 12/13/24 Order Info: [id number] - CBCD Order Info: [id number] - SED Result Comment: IG% - Immature Granulocytes (promyelocytes, myelocytes and metamyelocytes) > 1% indicates that a LEFT SHIFT is Present. Performed By: #### L 100.0100, L500.4050, L502.0250, L506.1000, L500.4100, L501.9520, L501.9985, L509.1000, L101.9900 #### [facility] [address] [place], [address] Lymphocytes/100 WBC (Bld) 26.8 % Normal 19-41 [facility] Comment on above: Order Comment: Order Date: 12/13/24 Order Info: 0184- - CBCD Order Info: [id number] - SED Performed By: #### L 100.0100, L500.4050, L502.0250, L506.1000, L500.4100, L501.9520, L501.9985, L509.1000, L101.9900 #### [facility] [address] [place], [address] MCH (RBC) [Entitic mass] 29.0 pg Normal 27.0-32.0 [facility] Comment on above: Order Comment: Order Date: 12/13/24 Order Info: [id number] - CBCD Order Info: [id number] - SED Performed By: #### L 100.0100, L500.4050, L502.0250, L506.1000, L500.4100, L501.9520, L501.9985, L509.1000, L101.9900 #### [facility] [address] [place], [address] MCHC (RBC) [Mass/Vol] 31.8 g/dL Low 32-36 [facility] Comment on above: Order Comment: Order Date: 12/13/24 Order Info: 0184- - CBCD Order Info: 82029-2 - SED Performed By: #### L 100.0100, L500.4050, L502.0250, L506.1000, L500.4100, L501.9520, L501.9985, L509.1000, L101.9900 #### [facility] [address] [place], [address] MCV (RBC) [Entitic vol] 91.3 fL Normal 81-99 [facility] Comment on above: Order Comment: Order Date: 12/13/24 Order Info: 018- - CBCD Order Info: [id number] - SED Performed By: #### L 100.0100, L500.4050, L502.0250, L506.1000, L500.4100, L501.9520, L501.9985, L509.1000, L101.9900 #### [facility] [address] [place], [address] Monocytes/100 WBC (Bld) 6.2 % Normal 0-10 [facility] Comment on above: Order Comment: Order Date: 12/13/24 Order Info: 183-11 - CBCD Order Info: 87964-8 - SED Performed By: #### L 100.0100, L500.4050, L502.0250, L506.1000, L500.4100, L501.9520, L501.9985, L509.1000, L101.9900 #### [facility] [address] [place], [address] Neutrophils/100 WBC (Bld) 63.0 % Normal 47-70 [facility] Comment on above: Order Comment: Order Date: 12/13/24 Order Info: [id number] - CBCD Order Info: 25602-6 - SED Performed By: #### L 100.0100, L500.4050, L502.0250, L506.1000, L500.4100, L501.9520, L501.9985, L509.1000, L101.9900 #### [facility] [address] [place], [address] Nucleated RBC (Bld) [#/Vol] 0 10*3/uL Normal 0-5 [facility] Comment on above: Order Comment: Order Date: 12/13/24 Order Info: 018- - CBCD Order Info: [id number] - SED Performed By: #### L 100.0100, L500.4050, L502.0250, L506.1000, L500.4100, L501.9520, L501.9985, L509.1000, L101.9900 #### [facility] [address] [place], [address] Platelet mean volume (Bld) [Entitic vol] 11.8 fL Normal 6.2-12.0 [facility] Comment on above: Order Comment: Order Date: 12/13/24 Order Info: 0184-1 - CBCD Order Info: 33108-7 - SED Performed By: #### L 100.0100, L500.4050, L502.0250, L506.1000, L500.4100, L501.9520, L501.9985, L509.1000, L101.9900 #### [facility] [address] [place], [address] Platelets (Bld) [#/Vol] 201 10*3/uL Normal 150-450 [facility] Comment on above: Order Comment: Order Date: 12/13/24 Order Info: 0184-1 - CBCD Order Info: 72657-3 - SED Performed By: #### L 100.0100, L500.4050, L502.0250, L506.1000, L500.4100, L501.9520, L501.9985, L509.1000, L101.9900 #### [facility] [address] [place], [address] RBC (Bld) [#/Vol] 4.00 10*6/uL Low 4.2-5.4 [facility] Comment on above: Order Comment: Order Date: 12/13/24 Order Info: 0184-1 - CBCD Order Info: 67653-4 - SED Performed By: #### L 100.0100, L500.4050, L502.0250, L506.1000, L500.4100, L501.9520, L501.9985, L509.1000, L101.9900 #### [facility] [address] [place], [place], [address] RDW SD 47.9 fl High 35.1-43.9 [facility] Comment on above: Order Comment: Order Date: 12/13/24 Order Info: 0184-1 - CBCD Order Info: 73425-5 - SED Performed By: #### L 100.0100, L500.4050, L502.0250, L506.1000, L500.4100, L501.9520, L501.9985, L509.1000, L101.9900 #### [facility] [address] [place], [place], [address] [phone] WBC (Bld) [#/Vol] 6.0 10*3/uL Normal 4.4-11.0 [facility] Comment on above: Order Comment: Order Date: 12/13/24 Order Info: 0184-1 - CBCD Order Info: 03070-0 - SED Performed By: #### L 100.0100, L500.4050, L502.0250, L506.1000, L500.4100, L501.9520, L501.9985, L509.1000, L101.9900 #### [facility] [address] [place], [place], [id number] Comprehensive Metabolic Prof [facility] 12-19-2024 Albumin [Mass/Vol] 3.1 g/dL Low 3.2-5.0 [facility] Comment on above: Order Comment: Order Date: 12/13/24 Order Info: 0786-1 - CMP Order Info: [id number] - LIPID Order Info: 3016-3 - TSH Performed By: #### L 100.0100, L500.4050, L502.0250, L506.1000, L500.4100, L501.9520, L501.9985, L509.1000, L101.9900 #### [facility] [address] [place], [place], [address] [phone] Albumin/Globulin [Mass ratio] 0.7 {ratio} Low 0.9-2.4 [facility] Comment on above: Order Comment: Order Date: 12/13/24 Order Info: 0786-1 - CMP Order Info: [id number] - LIPID Order Info: 3015-3 - TSH Performed By: #### L 100.0100, L500.4050, L502.0250, L506.1000, L500.4100, L501.9520, L501.9985, L509.1000, L101.9900 #### [facility] [address] [place], [address] ALK P 119 U/L High 45-117 [facility] Comment on above: Order Comment: Order Date: 12/13/24 Order Info: 86-1 - CMP Order Info: [id number] - LIPID Order Info: 3015-3 - TSH Performed By: #### L 100.0100, L500.4050, L502.0250, L506.1000, L500.4100, L501.9520, L501.9985, L509.1000, L101.9900 #### [facility] [address] [place], [address] ALT [Catalytic activity/Vol] 24 U/L Normal 13-56 [facility] Comment on above: Order Comment: Order Date: 12/13/24 Order Info: 0786-1 - CMP Order Info: [id number] - LIPID Order Info: 3015-3 - TSH Performed By: #### L 100.0100, L500.4050, L502.0250, L506.1000, L500.4100, L501.9520, L501.9985, L509.1000, L101.9900 #### [facility] [address] [place], [address] AST [Catalytic activity/Vol] 24 U/L Normal 15-37 [facility] Comment on above: Order Comment: Order Date: 12/13/24 Order Info: 0786-1 - CMP Order Info: [id number] - LIPID Order Info: 3 - TSH Performed By: #### L 100.0100, L500.4050, L502.0250, L506.1000, L500.4100, L501.9520, L501.9985, L509.1000, L101.9900 #### [facility] [address] [place], [place], [address] Bilirubin [Mass/Vol] 0.70 mg/dL Normal 0.20-1.00 [facility] Comment on above: Order Comment: Order Date: 12/13/24 Order Info: 0786-1 - CMP Order Info: [id number] - LIPID Order Info: 3015-3 - TSH Result Comment: For patients on eltrombopag therapy, use of Dimension [place] TBIL is not recommended. Performed By: #### L 100.0100, L500.4050, L502.0250, L506.1000, L500.4100, L501.9520, L501.9985, L509.1000, L101.9900 #### [facility] [address] [place], [place], [address] BUN/CRE 18.9 RATIO Normal 10-20 [facility] Comment on above: Order Comment: Order Date: 12/13/24 Order Info: 0786- - CMP Order Info: [id number] - LIPID Order Info: 3 - TSH Performed By: #### L 100.0100, L500.4050, L502.0250, L506.1000, L500.4100, L501.9520, L501.9985, L509.1000, L101.9900 #### [facility] [address] [place], [place], [address] CA,Total 9.1 mg/dL Normal 8.5-10.1 [facility] Comment on above: Order Comment: Order Date: 12/13/24 Order Info: 0786-1 - CMP Order Info: [id number] - LIPID Order Info: 3016-3 - TSH Performed By: #### L 100.0100, L500.4050, L502.0250, L506.1000, L500.4100, L501.9520, L501.9985, L509.1000, L101.9900 #### [facility] [address] [place], [address] Chloride [Moles/Vol] 107 mmol/L Normal 98-107 [facility] Comment on above: Order Comment: Order Date: 12/13/24 Order Info: 0786-1 - CMP Order Info: [id number] - LIPID Order Info: 3016-3 - TSH Performed By: #### L 100.0100, L500.4050, L502.0250, L506.1000, L500.4100, L501.9520, L501.9985, L509.1000, L101.9900 #### [facility] [address] [place], [place], [address] CO2 [Moles/Vol] 28.0 mmol/L Normal 21.0-32.0 [facility] Comment on above: Order Comment: Order Date: 12/13/24 Order Info: 0786-1 - CMP Order Info: [id number] - LIPID Order Info: 6-3 - TSH Performed By: #### L 100.0100, L500.4050, L502.0250, L506.1000, L500.4100, L501.9520, L501.9985, L509.1000, L101.9900 #### [facility] [address] [place], [place], [address] Creatinine [Mass/Vol] 0.85 mg/dL Normal 0.55-1.02 [facility] Comment on above: Order Comment: Order Date: 12/13/24 Order Info: 0786-1 - CMP Order Info: [id number] - LIPID Order Info: [id number] - TSH Result Comment: The validity of the calculated GFR GFRAA in patients over 70 years has not been determined. Clinical correlation is essential. Performed By: #### L 100.0100, L500.4050, L502.0250, L506.1000, L500.4100, L501.9520, L501.9985, L509.1000, L101.9900 #### [facility] [address] [place], [place], [address] EST GFR - AA 85 mL/min Normal >60 [facility] Comment on above: Order Comment: Order Date: 12/13/24 Order Info: 0786-1 - CMP Order Info: [id number] - LIPID Order Info: 3016-3 - TSH Result Comment: Afri can [place] GFR Calc Performed By: #### L 100.0100, L500.4050, L502.0250, L506.1000, L500.4100, L501.9520, L501.9985, L509.1000, L101.9900 #### [facility] [address] [place], [address] GAP 2 Low 5-15 [facility] Comment on above: Order Comment: Order Date: 12/13/24 Order Info: 07- - CMP Order Info: [id number] - LIPID Order Info: 3 - TSH Performed By: #### L 100.0100, L500.4050, L502.0250, L506.1000, L500.4100, L501.9520, L501.9985, L509.1000, L101.9900 #### [facility] [address] [place], [place], [address] GFR/1.73 sq M.predicted among non-blacks MDRD (S/P/Bld) [Vol rate/Area] 71 mL/min/{1.73_m2} Normal >60 [facility] Comment on above: Order Comment: Order Date: 12/13/24 Order Info: 0786-1 - CMP Order Info: [id number] - LIPID Order Info: 3016-3 - TSH Result Comment: Non- GFR Calc Performed By: #### L 100.0100, L500.4050, L502.0250, L506.1000, L500.4100, L501.9520, L501.9985, L509.1000, L101.9900 #### [facility] [address] [place], [address] Globulin (S) [Mass/Vol] 4.6 g/dL High 2.2-4.2 [facility] Comment on above: Order Comment: Order Date: 12/13/24 Order Info: 0786-1 - CMP Order Info: [id number] - LIPID Order Info: 3016-3 - TSH Performed By: #### L 100.0100, L500.4050, L502.0250, L506.1000, L500.4100, L501.9520, L501.9985, L509.1000, L101.9900 #### [facility] [address] [place], [address] Glucose [Mass/Vol] 96 mg/dL Normal 74-106 [facility] Comment on above: Order Comment: Order Date: 12/13/24 Order Info: 0786- - CMP Order Info: [id number] - LIPID Order Info: 3015-3 - TSH Performed By: #### L 100.0100, L500.4050, L502.0250, L506.1000, L500.4100, L501.9520, L501.9985, L509.1000, L101.9900 #### [facility] [address] [place], [address] Potassium [Moles/Vol] 4.3 mmol/L Normal 3.5-5.1 [facility] Comment on above: Order Comment: Order Date: 12/13/24 Order Info: 0786-1 - CMP Order Info: [id number] - LIPID Order Info: [id number] - TSH Performed By: #### L 100.0100, L500.4050, L502.0250, L506.1000, L500.4100, L501.9520, L501.9985, L509.1000, L101.9900 #### [facility] [address] [place], [address] Sodium [Moles/Vol] 137 mmol/L Normal 136-145 [facility] Comment on above: Order Comment: Order Date: 12/13/24 Order Info: 0786-1 - CMP Order Info: [id number] - LIPID Order Info: 3016-3 - TSH Performed By: #### L 100.0100, L500.4050, L502.0250, L506.1000, L500.4100, L501.9520, L501.9985, L509.1000, L101.9900 #### [facility] [address] [place], [place], [address] T PROT 7.7 g/dL Normal 6.4-8.2 [facility] Comment on above: Order Comment: Order Date: 12/13/24 Order Info: 0786- - CMP Order Info: [id number] - LIPID Order Info: 3016-3 - TSH Performed By: #### L 100.0100, L500.4050, L502.0250, L506.1000, L500.4100, L501.9520, L501.9985, L509.1000, L101.9900 #### [facility] [address] [place], [address] Urea nitrogen [Mass/Vol] 16 mg/dL Normal 7-18 [facility] Comment on above: Order Comment: Order Date: 12/13/24 Order Info: 0786-1 - CMP Order Info: [id number] - LIPID Order Info: 3016-3 - TSH Performed By: #### L 100.0100, L500.4050, L502.0250, L506.1000, L500.4100, L501.9520, L501.9985, L509.1000, L101.9900 #### [facility] [address] [place], [place], [address] Erythrocyte Sed Rateon 12-19 SED RATE 37 mm/hr High 0-30 [facility] Comment on above: Order Comment: Order Date: 12/13/24 Order Info: 0184-1 - CBCD Order Info: [id number] - SED Performed By: #### L 100.0100, L500.4050, L502.0250, L506.1000, L500.4100, L501.9520, L501.9985, L509.1000, L101.9900 #### [facility] [address] [place], [place], [address] (326) Hemoglobin A1con 12-19-2024 HbA1c (Bld) [Mass fraction] [...] [facility] [address] [place], [address] Lipid Profileon 12-19-2024 Cholesterol [Mass/Vol] 150 mg/dL Normal 200 [facility] Comment on above: Order Comment: Order Date: 12/13/24 Order Info: 0786-1 - CMP Order Info: [id number] - LIPID Order Info: 3016-3 - TSH Result Comment: <200 mg/dL Desirable 200-240 mg/dL Borderline >240 mg/dL High Risk Performed By: #### L 100.0100, L500.4050, L502.0250, L506.1000, L500.4100, L501.9520, L501.9985, L509.1000, L101.9900 #### [facility] [address] [place], [address] Cholesterol in HDL [Mass/Vol] 73 mg/dL Normal [facility] Comment on above: Order Comment: Order Date: 12/13/24 Order Info: 0786-1 - CMP Order Info: [id number] - LIPID Order Info: [id number] - TSH Result Comment: The drugs N-Acetylcysteine and Metamizole may falsely depress this assay. Reference Range HDL <40 mg/dL Low HDL Cholesterol HDL >or= 60 mg/dL High HDL Cholesterol Performed By: #### L 100.0100, L500.4050, L502.0250, L506.1000, L500.4100, L501.9520, L501.9985, L509.1000, L101.9900 #### [facility] [address] [place], [address] Cholesterol in LDL [Mass/Vol] 62 mg/dL Normal 0-130 [facility] Comment on above: Order Comment: Order Date: 12/13/24 Order Info: 0786- - CMP Order Info: [id number] - LIPID Order Info: [id number] - TSH Performed By: #### L 100.0100, L500.4050, L502.0250, L506.1000, L500.4100, L501.9520, L501.9985, L509.1000, L101.9900 #### [facility] [address] [place], [address] Cholesterol in VLDL [Mass/Vol] 15 mg/dL Normal 5-40 [facility] Comment on above: Order Comment: Order Date: 12/13/24 Order Info: 0786- - CMP Order Info: [id number] - LIPID Order Info: [id number] - TSH Performed By: #### L 100.0100, L500.4050, L502.0250, L506.1000, L500.4100, L501.9520, L501.9985, L509.1000, L101.9900 #### [facility] [address] [place], [address] Triglyceride [Mass/Vol] 75 mg/dL Normal [facility] Comment on above: Order Comment: Order Date: 12/13/24 Order Info: 0786- - CMP Order Info: [id number] - LIPID Order Info: 3016-3 - TSH [...] [facility] [address] [place], [address] Microalb:Creat Ratio,Random URon 12-19-2024 Creatinine [Mass/Vol] 71.60 mg/dL Normal NO RAN GE EST. [facility] Comment on above: Order Comment: Order Date: 12/13/24 Order Info: 0779-1 - MIACRE Performed By: #### L 100.0100, L500.4050, L502.0250, L506.1000, L500.4100, L501.9520, L501.9985, L509.1000, L101.9900 #### [facility] [address] [place], [address] MALB:CRE 27.8 mg/g CRE Normal <30 mg/g CRE [facility] Comment on above: Order Comment: Order Date: 12/13/24 Order Info: 0779-1 - MIACRE Performed By: #### L 100.0100, L500.4050, L502.0250, L506.1000, L500.4100, L501.9520, L501.9985, L509.1000, L101.9900 #### [facility] [address] [place], [address] MICROALBUMIN,UR 19.9 mg/L Normal NO RANGE EST. [facility] Comment on above: Order Comment: Order Date: 12/13/24 Order Info: 0779-1 - MIACRE Performed By: #### L 100.0100, L500.4050, L502.0250, L506.1000, L500.4100, L501.9520, L501.9985, L509.1000, L101.9900 #### [facility] [address] [place], [address] PTHINon 12-19-2024 PTH 54.7 pg/mL Normal 18.4-80.1 [facility] Comment on above: Order Comment: Order Date: 12/13/24 Order Info: [id number] - PTHIN Performed By: #### L 100.0100, L500.4050, L502.0250, L506.1000, L500.4100, L501.9520, L501.9985, L509.1000, L101.9900 #### [facility] [address] [place], [address] Thyroid Stim Hormone (TSH)on 12-19-2024 TSH 2.030 uIU/mL Normal 0.358-3.740 [facility] Comment on above: Order Comment: Order Date: 12/13/24 Order Info: [id number] - CMP Order Info: [id number] - LIPID Order Info: [id number] - TSH Performed By: #### L 100.0100, L500.4050, L502.0250, L506.1000, L500.4100, L501.9520, L501.9985, L509.1000, L101.9900 #### [facility] [address] [place], [address] Vitamin D,25 Hydroxyon 12-19 Vitamin D 25-OH 42.7 ng/mL Normal [facility] Comment on above: Order Comment: Order Date: 12/13/24 Order Info: [id number] - VITD25 Result Comment: [place]any min D 25(OH) Status Range Deficiency <20 ng/mL (50nmol/L) Insufficiency 20 - 30 ng/mL (50 - 75 nmol/L) Sufficiency 30 - 100 ng/mL (75 - 250 nmol/L) Toxicity >100 ng/mL (>250 nmol/L) Performed By: #### L 100.0100, L500.4050, L502.0250, L506.1000, L500.4100, L501.9520, L501.9985, L509.1000, L101.9900 #### [facility] [address] [place], [address] Venous Duplex US, Unilateral on 05-27-2024 Venous Duplex US, Unilateral [facility] [address] [place] [address] Venous Duplex US, Unilateral 05/27/24 1104 MR#: [id number] Acct: [id number] Name: VICKIE GONZALEZ Rep #: [id number] : 1955 68 From: Cristhian Coleman MD [...] Dictated: 05/27/24 1104 Date Transcribed: 05/27/24 1227 Program Rep: Signed Normal [facility] XR KNEE [...] within normal limits. IMPRESSION: Intact knee replacement. /[facility] Workstation ID: [id number] Dictated by: ROBE COLIN on ThuMar 25, 2024 4:34:08 PM EDT Transcribed by: JAY GUADARRAMA on ThuMar 25, 2024 4:53:17 PM EDT Finalized by: ROBE COLIN on ThuMar 25, 2024 5:26:19 PM EDT Normal [facility] Comment on above: Order Comment: Injur [...] ThuJan 26, 2024 4:57:48 PM EST Normal [facility] Comment on above: Order Comment: Injur y/Trauma [...] unremarkable. IMPRESSION: Severe right knee tricompartmental osteoarthritis. [facility] Workstation ID: [id number] Dictated by: ROBE COLIN on ThuJan 07, 2024 2:25:02 PM EST Transcribed by: LUCY NEWELL on ThuJan 07, 2024 2:25:02 PM EST Finalized by: ROBE COLIN on ThuJan 07, 2024 10:52:02 PM EST Normal [facility] Comment on above: Order Comment: Nicolas ayers only schedule at [facility]. Do not schedule Ct scan appointment with patient. Ordering Doctor's office will call to schedule Ct scan appointment. Injury/Trauma or Illness?:Illness/Other How long have you had these symptoms (acute/chronic)?:Acute Reason for exam?:pre operative for upcoming Rt TKR Type of Exam?:Initial Additional signs and symptoms?:. Basophil percentageOrdered B y: Kirill Newell on 11-12-2023 Bilirubin [Mass/Vol] 0.70 mg/dL 0.20-1.00 [facility] Comment on above: For patients on eltr ombopag therapy, use of Dimension [place] TBIL is not recommended. Chloride [Moles/Vol] 107 mmol/L 98-107 [facility] Glucose [Mass/Vol] 97 mg/dL 74-106 [facility] Potassium [Moles/Vol] 4.3 mmol/L 3.5-5.1 [facility] Protein [Mass/Vol] 8.7 g/dL 6.4-8.2 [facility] Sodium [Moles/Vol] 140 mmol/L 136-145 [facility] WBC (Bld) [#/Vol] 7.7 10*3/uL 4.4-11.0 [facility] Blood erythrocytes count (nu mber/volume)Ordered By: Kirill Newell on 11-12-2023 RBC (Bld) [#/Vol] 4.16 10*6/uL 4.2-5.4 [facility] Blood hemoglobin measurement (mass/volume)Ordered By: Kirill Newell on 11-12-2023 Hemoglobin (Bld) [Mass/Vol] 11.5 g/dL 12.0-15.0 [facility] Blood platelet mean volumeOr dered By: Kirill Newell on 11-12-2023 Platelet mean volume (Bld) [Entitic vol] 11.2 fL 6.2-12.0 [facility] Determination of erythrocyte mean corpuscular volume (MCV)Ordered By: Kirill Newell on 11-12-2023 MCV (RBC) [Entitic vol] 89.2 fL 81-99 [facility] Erythrocyte sedimentation ra teOrdered By: Kirill Newell on 11-12-2023 ESR (Bld) [Velocity] 48 mm/h 0-30 [facility] Hematocrit Auto (Bld) [Volum e fraction]Ordered By: Kirlil Newell on 11-12-2023 Hematocrit (Bld) [Volume fraction] 37.1 % 37-47 [facility] - Chemistry and C hemistry - challengeOrdered By: Kirill Newell on 11-12-2023 ALP [Catalytic activity/Vol] 110 U/L 45-117 [facility] ALT [Catalytic activity/Vol] 21 U/L 13-56 [facility] CO2 [Moles/Vol] 28.0 mmol/L 21.0-32.0 [facility] Globulin (S) [Mass/Vol] 5.5 g/dL 2.2-4.2 [facility] Urea nitrogen/Creatinine [Mass ratio] 19.0 mg/mg [...] 11-12-2023 MCHC (RBC) [Mass/Vol] 31.0 g/dL 32-36 [facility] No Panel InformationOrdered By: Kirill Newell [...] evidence of monoclonal proteinis not apparent.Performed at: [facility] [address] [id number] Director: Ha Gutierrez PhD, Phone: [phone] Pethz-8-Oxmpxusxb 0.4 g/dL 0.0-0.4 [facility] Gfdqi-0-Gimwnpjrl 1.2 g/dL 0.4-1.0 [facility] Anti-Nuclear Antibody Screen Negative Negative [facility] Comment on above: Performed at: [facility] [address] [id number] Director: Ha Gutierrez PhD, Phone: [phone] Estimated GFR (MDRD) Amer 86 mL/min >60 [...] [facility] Vitamin D 25-Hydroxy 37.3 ng/mL [facility] Comment on above: Vitamin D 25(OH) Sta [...] sis scan will follow via computer,mail, or enlisted advisor delivery. Serum albumin to globulin ra allen by protein electrophoresisOrdered By: Kirill Newell on 11-12-2023 Albumin/Globulin Elph [Mass ratio] 0.7 0.7-1.7 [facility] Serum globulin measurement ( mass/volume)Ordered By: Kirill Newell on 11-12-2023 Globulin (S) [Mass/Vol] 4.6 g/dL 2.2-3.9 [facility] Serum or plasma C reactive p rotein [...] on 11-12-2023 Albumin [Mass/Vol] 3.2 g/dL 2.9-4.4 [facility] Serum or plasma albumin/glob ulin mass ratioOrdered By: Kirill Newell 11-12-2023 Albumin/Globulin [Mass ratio] 0.6 {ratio} 0.9-2.4 [facility] Serum or plasma beta globuli n measurement by electrophoresis (mass/volume)Ordered By: Kirill Newell 11-12-2023 Beta globulin Elph [Mass/Vol] 1.2 g/dL 0.7-1.3 [facility] Serum or plasma calcium erasmo urement (mass/volume)Ordered By: Kirill Newell 11-12-2023 Calcium [Mass/Vol] 9.1 mg/dL 8.5-10.1 [facility] Serum or plasma creatinine m easurement (mass/volume)Ordered By: Kirill Newell on 11-12-2023 Creatinine [Mass/Vol] 0.84 mg/dL 0.55-1.02 [facility] Comment on above: The validity of [...] on 11-12-2023 Protein [Mass/Vol] 7.8 g/dL 6.0-8.5 [facility] Urine creatinine measurement (mass/volume)Ordered By: Kirill [...] right knee. The right knee shows severe ktzu-lx-arey narrowing with endplate sclerosis and endplate osteophytes and about 7 mm of lateral subluxation of the tibial plateau in relationship to the distal femur associated with varus angulation of the knee. There are osteophytes along the lateral joint compartment and yzoycdlj-jo-vuxnde arthritic changes of the patellofemoral joint. There is likely a small suprapatellar joint effusion. No acute fracture is identified. Total left knee arthroplasty is in place. No radiographic signs of hardware complications. IMPRESSION: 1. 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 2. No acute osseous abnormalities identified. [employer] Workstation ID: [id number] Dictated by: YOSELYN PETE on ThuSep 15, 2023 10:04:15 AM EDT Transcribed by: GERALD DYER on ThuSep 15, 2023 10:28:27 AM EDT Finalized by: YOSELYN PETE on ThuSep 15, 2023 2:48:38 PM EDT Normal [facility] Comment on above: Order Comment: Injur y/Trauma or Illness?:Illness/Other How long have you had these symptoms (acute/chronic)?:Chronic Reason for exam?:pain History of cancer?:/ / Surgeries, chemotherapy, or radiation?:/ Type of Exam?:Initial Additional signs and symptoms?:na ECG 12 Leadon 01-21-2023 Atrial Rate [facility] P Elmo [facility] P-R Interval [facility] Q-T Interval [facility] Q-T Interval (corrected) [facility] QRS Duration [facility] QTC Calculation (Bezet) [facility] R Elmo [facility] T Elmo [facility]ricular [facility] ECHOCARDIOGRAM COMPLETEon ECHOCARDIOGRAM COMPLETE Patient Info Name: VICKIE GONZALEZ Age: 67 years : 1955 Gender: Female Ht: 167 cm Wt: 105 kg BSA: 2.26 m2 HR: 1 bpm BP: 157 / 89 mmHg Technical Quality: Fair Exam Date: 01/21/2023 9:06 AM Patient Status: Outpatient Cloud Systems Administrator: Shirin Rabago, MILLER, RDCS (PE, AE) Exam Type: ECHOCARDIOGRAM COMPLETE Study Info Indications - Valve disease/murmur Attending Physician: ANGELICA RANDALL Referring Physician: [id number]; [id number] BMI: 37.73 kg/m2 Summary 1. Left ventricular [...] Value Normal - PV Regurgitation Doppler - OR Peak End Diastolic Velocity 128 cm/s Mitral Valve - Name Value Normal - MV Doppler - MV Peak Velocity 1. (more content not included)... [facility] ECG 12 LeadOrdered By: Virginie Guerra on 02-19-2022 Atrial Rate [facility] P Elmo [facility] P-R Interval [facility] Q-T Interval [facility] Q-T Interval (corrected) [facility] QRS Duration [facility] QTC Calculation (Bezet) [facility] R Elmo [facility] T Elmo [facility] Ventricular Rate [facility] Basic metabolic 2000 panelon 01-22-2022 Anion gap [Moles/Vol] 15 mmol/L 10 - 2 0 mmol/L [facility] Calcium [Mass/Vol] 8.8 mg/dL 8.4 - 10. 2 mg/dL [facility] Chloride [Moles/Vol] 104 mmol/L 98 - 10 8 mmol/L [facility] Creatinine [Mass/Vol] 0.75 mg/dL 0.60 - 1.20 [facility] GFR/1.73 sq M.predicted CKD-EPI (S/P/Bld) [Vol rate/Area] 83 >=60 mL/min/1.73 m2 [facility] Glucose [Mass/Vol] 90 mg/dL 65 - 99 mg/dL [facility] HCO3 [Moles/Vol] 24 mmol/L 21 - 32 mmol/L [facility] Interpretation and review of laboratory results Normal [facility] Potassium [Moles/Vol] 4.3 mmol/L 3.5 - 5.1 mmol/L [facility] Sodium [Moles/Vol] 139 mmol/L 135 - 145 mmol/L [facility] Urea nitrogen [Mass/Vol] 10 mg/dL 8 - 25 mg/d L [facility] Urea nitrogen/Creatinine [Mass ratio] 13.3 mg/mg [facility] The eGFR should be u sed for monitoring renal function only and not for medication dosing. [facility] CBC panel Auto (Bld)on 01-22 Erythrocyte distribution width (RBC) [Entitic vol] 15.9 % High 11.6 - 14.8 % [facility] Hematocrit (Bld) [Volume fraction] 33.2 % Low 36.0 - 46.0 % [facility] Hemoglobin (Bld) [Mass/Vol] 10.4 g/dL Low 12.0 - 16.0 g/dL [facility] Interpretation and review of laboratory results Abnormal [facility] MCH (RBC) [Entitic mass] 27.2 pg 26. 0 - 34.0 pg [facility] MCHC (RBC) [Mass/Vol] 31.3 g/dL 31.0 - 37.0 g/dL [facility] MCV (RBC) [Entitic vol] 86.9 fL 80.0 - 100.0 fL [facility] Nucleated RBC (Bld) [#/Vol] 0.00 10*3/uL [facility] Nucleated RBC/100 WBC (Bld) [Ratio] 0.0 % [facility] Platelet mean volume (Bld) [Entitic vol] 11.9 fL 9.4 - 12.4 fL [facility] Platelets (Bld) [#/Vol] 176 10*3/uL [facility] RBC (Bld) [#/Vol] 3.82 10*6/uL Low [facility] WBC (Bld) [#/Vol] 5.53 10*3/uL [facility] ECG 12 Leadon 01-22-2022 Atrial Rate 65 BPM [facility] P Elmo 64 degrees [facility] P-R Interval 300 ms [facility] Q-T Interval 444 ms [facility] QRS Duration 94 ms [facility] QTC Calculation (Bezet) 461 ms [facility] R Elmo 10 degrees [facility] T Elmo 90 degrees [facility] Ventricular Rate 65 BPM [facility] Sinus rhythm with 1s t degree AV block Otherwise normal ECG Confirmed by SONA SEGURA MD ([id number]) on 01/22/2022 9:10:34 AM MUSE [facility] Atrial Rate 64 BPM [facility] P Elmo 48 degrees [facility] P-R Interval 272 ms [facility] Q-T Interval 438 ms [facility] QRS Duration 96 ms [facility] QTC Calculation (Bezet) 451 ms [facility] R Elmo 34 degrees [facility] T Elmo 89 degrees [facility] Ventricular Rate 64 BPM [facility] Sinus rhythm with 1s t degree AV block Nonspecific T wave abnormality Abnormal ECG When compared with ECG of 21-JAN-2022 12:50, (unconfirmed) No significant change was found Confirmed by SONA SEGURA MD ([id number]) on 01/22/2022 9:08:00 AM MUSE [facility] APTTon 01-21-2022 aPTT Coag (Bld) [Time] 29 s [facility] Basic metabolic 2000 panelon 01-21-2022 Anion gap [Moles/Vol] 16 mmol/L 10 - 2 0 mmol/L [facility] Calcium [Mass/Vol] 8.5 mg/dL 8.4 - 10. 2 mg/dL [facility] Chloride [Moles/Vol] 106 mmol/L 98 - 10 8 mmol/L [facility] Creatinine [Mass/Vol] 0.67 mg/dL 0.60 - 1.20 [facility] GFR/1.73 sq M.predicted CKD-EPI (S/P/Bld) [Vol rate/Area] 91 >=60 mL/min/1.73 m2 [facility] Glucose [Mass/Vol] 110 mg/dL High 65 - 99 mg/dL [facility] HCO3 [Moles/Vol] 21 mmol/L 21 - 32 mmol/L [facility] Interpretation and review of laboratory results Abnormal [facility] Potassium [Moles/Vol] 3.9 mmol/L 3.5 - 5.1 mmol/L [facility] Sodium [Moles/Vol] 139 mmol/L 135 - 145 mmol/L [facility] Urea nitrogen [Mass/Vol] 14 mg/dL 8 - 25 mg/d L [facility] Urea nitrogen/Creatinine [Mass ratio] 20.9 mg/mg High [facility] The eGFR should be u sed for monitoring renal function only and not for medication dosing. [facility] Basic metabolic 2000 panelOr dered By: Marcial Thomas on 01-21-2022 Anion gap [Moles/Vol] 17 mmol/L 10 - 2 0 mmol/L [facility] Calcium [Mass/Vol] 8.9 mg/dL 8.4 - 10. 2 mg/dL [facility] Chloride [Moles/Vol] 106 mmol/L 98 - 10 8 mmol/L [facility] Creatinine [Mass/Vol] 0.77 mg/dL 0.60 - 1.20 [facility] GFR/1.73 sq M.predicted CKD-EPI (S/P/Bld) [Vol rate/Area] 80 >=60 mL/min/1.73 m2 [facility] Glucose [Mass/Vol] 94 mg/dL 65 - 99 mg/dL [facility] HCO3 [Moles/Vol] 23 mmol/L 21 - 32 mmol/L [facility] Interpretation and review of laboratory results Normal [facility] Potassium [Moles/Vol] 4.2 mmol/L 3.5 - 5.1 mmol/L [facility] Comment on above: Slightly Hemolyzed Sodium [Moles/Vol] 142 mmol/L 135 - 145 mmol/L [facility] Urea nitrogen [Mass/Vol] 14 mg/dL 8 - 25 mg/d L [facility] Urea nitrogen/Creatinine [Mass ratio] 18.2 mg/mg [facility] The eGFR should be u sed for monitoring renal function only and not for medication dosing. [facility] CBC panel Auto (Bld)on 01-21 Erythrocyte distribution width (RBC) [Entitic vol] 15.7 % High 11.6 - 14.8 % [facility] Hematocrit (Bld) [Volume fraction] 32.7 % Low 36.0 - 46.0 % [facility] Hemoglobin (Bld) [Mass/Vol] 10.2 g/dL Low 12.0 - 16.0 g/dL [facility] Interpretation and review of laboratory results Abnormal [facility] MCH (RBC) [Entitic mass] 27.1 pg 26. 0 - 34.0 pg [facility] MCHC (RBC) [Mass/Vol] 31.2 g/dL 31.0 - 37.0 g/dL [facility] MCV (RBC) [Entitic vol] 86.7 fL 80.0 - 100.0 fL [facility] Nucleated RBC (Bld) [#/Vol] 0.00 10*3/uL [facility] Nucleated RBC/100 WBC (Bld) [Ratio] 0.0 % [facility] Platelet mean volume (Bld) [Entitic vol] 11.7 fL 9.4 - 12.4 fL [facility] Platelets (Bld) [#/Vol] 173 10*3/uL [facility] RBC (Bld) [#/Vol] 3.77 10*6/uL Low [facility] WBC (Bld) [#/Vol] 6.65 10*3/uL [facility] Calcium, Ionizedon 2 Calcium.ionized [Mass/Vol] 4.6 mg/dL 4.5 - 5.3 mg/dL [facility] Calcium.ionized [Mass/Vol]on 01-21-2022 Interpretation and review of laboratory results Normal [facility] Echocardiogram limited with contrastOrdered By: Nicol Pittman on 01-21-2022 AV mean gradient 5 mmHg [facility] Work Phone: [facility] Work Phone: Echocardiogram limited with contraston 01-21-2022 Patient Info Name: VICKIE GONZALEZ Age: 66 years : 1955 Gender: Female Ht: 168 cm Wt: 102 kg BSA: 2.22 m2 BP: 144 / 57 mmHg Technical Quality: Fair Exam Date: 01/21/2022 12:12 PM Patient Status: Outpatient Cloud Systems Administrator: Jolanta Klein RDCS, ЮЛИЯ Exam Type: ECHOCARDIOGRAM LIMITED WITH CONTRAST Study Info Indications - INTRAOP TAVR Attending Physician: LINDSEY PLUMMER Referring Physician: [id number] Chase; [id number] BMI: 36.32 kg/m2 Summary 1. Limited two-dimensional, [...] Date: 01/21/2022 12:12 PM Patient Status: Outpatient Cloud Systems Administrator: Jolanta lKein RDCS, ЮЛИЯ Exam Type: ECHOCARDIOGRAM LIMITED WITH CONTRAST Study Info Indications - INTRAOP TAVR Attending Physician: LINDSEY PLUMMER Referring Physician: [id number]; [id number] BMI: 36.32 kg/m2 Summary 1. Limited two-dimensional, [...] Nicol Pittman DO on 01/21/2022 04:13 PM [facility] Radiology Study observation (narrative) [facility] INR Coag (PPP) [Relative shandra e]on 01-21-2022 Interpretation and review of laboratory results Abnormal [facility] PT Coag (PPP) [Time] 15.5 [facility] During the induction phase of oral anticoagulation, the INR may not reflect the anticoagulation status of the patient. Therapeutic ranges for INR's are: Most clinical situations: INR 2.0-3.0 Mechanical Prosthetic Valve: INR 2.5-3.5 Critical: INR >5.0 [facility] - Blood bankon ABO and Rh group Nom (Bld) 5100 [facility] ABO and Rh group Nom (Bld) Blood group O Rh(D) positive [facility] Magnesiumon 01-21-2022 Magnesium [Mass/Vol] 1.8 mg/dL 1.6 - 2 .4 mg/dL [facility] Magnesium [Mass/Vol]on 01-21 Interpretation and review of laboratory results Normal [facility] No Panel Informationon 01-21 [facility] Cross Match Compatible [facility] Product Code [id number] [facility] Product ID Red Blood Cells [facility] Status Info Ready [facility] POC Venous Blood Gas Panel-P ulmon 01-21-2022 Base excess Calc (BldV) [Moles/Vol] -1.1000 mmol/L [facility] Breath rate setting Ventilator synchronized intermittent mandatory 0 [facility] Calcium.ionized [Mass/Vol] 4.8 mg/dL 4.5 - 5.3 mg/dL [facility] Carboxyhemoglobin (BldA) [Mass fraction] 1.5 <=1.5 % of total Hb [facility] Comment on above: Reference Ranges: [facility] Non-smokers: <1.5% Smokers: 1.5-5.0% Heavy Smokers: 5.0-9.0% Chloride [Moles/Vol] 109 mmol/L High 98 - 10 8 mmol/L [facility] CO2 (BldV) [Partial pressure] 47.4 mm[Hg] [facility] Glucose [Mass/Vol] 109 mg/dL High 65 - 99 mg/dL [facility] HCO3 (Bld) [Moles/Vol] 25.0 mmol/L 24.0 - 28.0 mmol/L [facility] Hematocrit (BldA) [Volume fraction] 29.7 % Low 36.0 - 46.0 % [facility] Hemoglobin (Bld) [Mass/Vol] 9.7 g/dL Low 12.0 - 16.0 g/dL [facility] Inhaled oxygen concentration 0 % [facility] Interpretation and review of laboratory results Abnormal [facility] Lactate [Moles/Vol] 0.4 mmol/L Low 0.6 - 2. 0 mmol/L [facility] Methemoglobin (BldA) [Mass fraction] <1.0 0.0 - 2.0 % [facility] Oxygen (BldV) [Partial pressure] 39 mm[Hg] [facility] Oxygen saturation in Venous blood 69.2 % 40.0 - 70.0 % [facility] Oxyhemoglobin (BldA) [Mass fraction] 67.8 % No established reference range [facility] pH (BldV) 7.33 [pH] [facility] Potassium [Moles/Vol] 3.6 mmol/L 3.5 - 5.1 mmol/L [facility] Result Notification critical results giv en to treating OR anesthesiolo [facility] Sodium [Moles/Vol] 143 mmol/L 135 - 145 mmol/L [facility] Tidal volume setting Ventilator 0 [facility] PT/INRon 01-21-2022 INR Coag (PPP) [Relative time] 1.3 {INR} High [facility] Potassium Levelon 01-21-2022 Potassium [Moles/Vol] 4.5 mmol/L 3.5 - 5.1 mmol/L [facility] Potassium [Moles/Vol]on 01-01 Interpretation and review of laboratory results Normal [facility] Prepare RBC: 4 Unitson 01-21 Product Code [id number] [facility] Unit Number [id number] [facility] Unit Number [id number] [facility] Unit Number [id number] [facility] Unit Number [id number] [facility] XR Chest 1 Viewon 01-21-2022 Status post TAVR Cardiomegaly pulmonary vascular congestion and edema Workstation ID: [id number] EXAMINATION: ONE XRAY VIEW OF [...] vascular congestion and edema Workstation ID: [id number] [facility] Radiology Study observation (narrative) [facility] XR Chest 1 ViewOrdered By: Malachi Shirley on 01-21-2022 [facility] Work Phone: aPTT Coag (Bld) [Time]on Interpretation and review of laboratory results Normal [facility] Therapeutic range fo r APTT's is 68 - 104 seconds [facility] ECG 12 LeadOrdered By: Virginie Guerra on 01-09-2022 Atrial Rate [facility] P Elmo [facility] P-R Interval [facility] Q-T Interval [facility] Q-T Interval (corrected) [facility] QRS Duration [facility] QTC Calculation (Bezet) [facility] R Elmo [facility] T Elmo [facility] Ventricular Rate [facility] COVID-19, MolecularOrdered B y: Nasreen Jenkins on [...] at the following links: For Healthcare Providers: https://www.fda.gov/media/239640/download For Patients: https://www.fda.gov/media/364636/download SARS-CoV-2 (COVID-19) RNA NA A+probe Ql (Resp)Ordered By: Nasreen Jenkins on 01-07-2022 Interpretation and review of laboratory results Normal [facility] ECG 12-LEADOrdered By: Blaine Silveira on 06-10-2021 Atrial Rate [facility] P Elmo [facility] P-R Interval [facility] Q-T Interval [facility] Q-T Interval (corrected) [facility] QRS Duration [facility] QTC Calculation (Bezet) [facility] Elmo [facility] T Elmo [facility] Ventricular Rate [facility] Atrial Rate [facility] P Elmo [facility] P-R Interval [facility] Q-T Interval [facility] Q-T Interval (corrected) [facility] QRS Duration [facility]TC Cal[facility] (Bezet) [facility] T Elmo [facility] Ventricular Rate [facility] ECHOCARDIOGRAM COMPLETEon Transthoracic Echocardiogram _ Patient: CARLOS [facility] Rec#: [id number] (Age): 1955(63y) Height: 167.64(cm)/65(i Study Date: 06/14/2019 Weight: 120.66(kg)/265( Room#: BSA: [id number] Type: Loc: Sex: F _ Reading: Silvio Mckeon MD F Referring: BLAINE SILVEIRA L. Cloud Systems Administrator: Angelica Lynne RDCS, RVT History: Aortic Valve [...] at 06/14/2019 16:22:40 by: Silvio Mckeon MD [facility], Rad [facility] - 06/14/2019 4:29 PM EDT Transthoracic Echocardiogram _ [facility]: [facility] [facility] Rec#: [id number] (Age): 1955(63y) Height: 167.64(cm)/65(i Study Date: 06/14/2019 Weight: 120.66(kg)/265( Room#: BSA: [id number] Type: Loc: Sex: F _ Reading: Silvio Mckeon MD F Referring: BLAINE SILVEIRA L. Cloud Systems Administrator: Angelica Lynne [facility] [place] History: Aortic Valve disorder. Chest pain. [...] at 06/14/2019 16:22:40 by: Silvio Mckeon MD [facility] ECG 12-LEADon 06-06-2019 Atrial Rate [facility] P Elmo [facility] P-R Interval [facility] Q-T Interval [facility] Q-T Interval (corrected) [facility] QRS Duration [facility] QTC Calculation (Bezet) [facility] R Elmo [facility] T Elmo [facility] Ventricular Rate [facility] Echocardiogram completeon Echocardiogram complete Transthoracic Echocardiogram _ Patient: CARLOS [facility] Rec#: [id number] (Age): 1955(62y) Height: 167.64(cm)/65(i Study Date: 01/05/2018 Weight: 109.77(kg)/241( Room#: BSA: [id number] Type: Outpatient Loc: Sex: F _ Reading: Iliana Gomez M.D. Referring: BLAINE SILVEIRA L. Cloud Systems Administrator: Angelica Lynne [facility] History: Aortic Valve disorder. Aotic insufficiencyCoronary [...] by: Iliana Gomez M.D. Invalid Interpretation Code [facility] Echocardiogram complete Interface, Rad I n [facility] Xper Echopacs - 01/05/2018 2:56 PM EST Transthoracic Echocardiogram _ Patient: CARLOS [facility] Rec#: [id number] (Age): 1955(62y) Height: 167.64(cm)/65(i Study Date: 01/05/2018 Weight: 109.77(kg)/241( Room#: BSA: [id number] Type: Outpatient Loc: Sex: F _ Reading: Iliana Gomez M.D. Referring: BLAINE SILVEIRA L. Cloud Systems Administrator: Angelica Lynne [facility] History: Aortic Valve disorder. Aotic insufficiencyCoronary [...] by: Iliana Gomez M.D. Invalid Interpretation Code [facility] Vital Signs Date Time Vital Sign Value Performing Clinician Facility 02-12-2024 11:18-0400 Body temperature 98.1 [degF] Kendall Graff PT [facility] 02-12-2024 11:18-0400 Diastolic blood pressure 79 mm[Hg] Kendall Graff PT [facility] 02-12-2024 11:18-0400 Heart rate 78 /min Kendall Graff PT [facility] 02-12-2024 11:18-0400 Respiratory rate 16 /min Kendall Graff PT [facility] 02-12-2024 11:18-0400 SaO2% (BldA) [Mass fraction] 98 % Kendall Graff PT [facility] 02-12-2024 11:18-0400 Systolic blood pressure 124 mm[Hg] Kendall Graff PT [facility] 02-11-2024 08:58-0400 Body temperature 98.8 [degF] Lindsey Centeno RN [facility] 02-11-2024 08:58-0400 Diastolic blood pressure 78 mm[Hg] Lindsey Centeno RN [facility] 02-11-2024 08:58-0400 Heart rate 62 /min Lindsey Centeno RN [facility] 02-11-2024 08:58-0400 Respiratory rate 16 /min Lindsey Villalobososs RN [facility] 02-11-2024 08:58-0400 SaO2% (BldA) [Mass fraction] 99 % Lindsey Villalobososs RN [facility] 02-11-2024 08:58-0400 Systolic blood pressure 132 mm[Hg] Lindsey Centeno RN [facility] 02-10-2024 09:59-0400 Body temperature 97.81 [degF] Cristhian Byrnes [facility] 02-10-2024 09:59-0400 Diastolic blood pressure 70 mm[Hg] Cristhian Thrush [facility] 02-10-2024 09:59-0400 Heart rate 66 /min Cristhian Thrush [facility] 02-10-2024 09:59-0400 Respiratory rate 15 /min Cristhian Thrush [facility] 02-10-2024 09:59-0400 SaO2% (BldA) [Mass fraction] 97 % Cristhian Byrnes [facility] 02-10-2024 09:59-0400 Systolic blood pressure 118 mm[Hg] Cristhian Byrnes [facility] 02-09-2024 09:21-0400 Body temperature 98.2 [degF] Lisa Odell [facility] 02-09-2024 09:21-0400 Diastolic blood pressure 80 mm[Hg] Lisa Odell [facility] 02-09-2024 09:21-0400 Heart rate 85 /min Lisa Odell [facility] 02-09-2024 09:21-0400 Respiratory rate 16 /min Lisa Odell [facility] 02-09-2024 09:21-0400 SaO2% (BldA) [Mass fraction] 98 % Lisa Odell [facility] 02-09-2024 09:21-0400 Systolic blood pressure 142 mm[Hg] Lisa Odell [facility] 02-08-2024 10:30-0400 Body temperature 97.9 [degF] Cristhian Byrnes [facility] 02-08-2024 10:30-0400 Diastolic blood pressure 70 mm[Hg] Cristhian Byrnes [facility] 02-08-2024 10:30-0400 Heart rate 67 /min Cristhian Floresush [facility] 02-08-2024 10:30-0400 Respiratory rate 16 /min Cristhian Floresush [facility] 02-08-2024 10:30-0400 SaO2% (BldA) [Mass fraction] 97 % Cristhian Byrnes [facility] 02-08-2024 10:30-0400 Systolic blood pressure 118 mm[Hg] Cristhian Byrnes [facility] 02-05-2024 10:44-0500 Body temperature 98.49 [degF] Lisa Odell [facility] 02-05-2024 10:44-0500 Diastolic blood pressure 82 mm[Hg] Lisa Odell [facility] 02-05-2024 10:44-0500 Heart rate 77 /min Lisa Odell [facility] 02-05-2024 10:44-0500 Respiratory rate 16 /min Lisa Odell [facility] 02-05-2024 10:44-0500 SaO2% (BldA) [Mass fraction] 98 % Lisa Odell [facility] 02-05-2024 10:44-0500 Systolic blood pressure 150 mm[Hg] Lisa Odell [facility] 02-05-2024 10:09-0500 Body temperature 98.2 [degF] Cristhian Byrnes [facility] 02-05-2024 10:09-0500 Diastolic blood pressure 88 mm[Hg] Cristhian Byrnes [facility] 02-05-2024 10:09-0500 Heart rate 67 /min Cristhian Byrnes [facility] 02-05-2024 10:09-0500 Respiratory rate 15 /min Cristhian Byrnes [facility] 02-05-2024 10:09-0500 SaO2% (BldA) [Mass fraction] 97 % Cristhian Byrnes [facility] 02-05-2024 10:09-0500 Systolic blood pressure 150 mm[Hg] Cristhian Byrnes [facility] 02-03-2024 14:06-0500 Body temperature 97.59 [degF] Siena Rondon RN [facility] 02-03-2024 14:06-0500 Diastolic blood pressure 84 mm[Hg] Siena Rondon RN [facility] 02-03-2024 14:06-0500 Heart rate 76 /min Siena Rondon RN [facility] 02-03-2024 14:06-0500 Respiratory rate 18 /min Siena Rondon RN [facility] 02-03-2024 14:06-0500 SaO2% (BldA) [Mass fraction] 99 % Siena Rondon RN [facility] 02-03-2024 14:06-0500 Systolic blood pressure 130 mm[Hg] Siena Rondon RN [facility] 02-03-2024 12:32-0500 Body temperature 97.3 [degF] Cristhian Byrnes [facility] 02-03-2024 12:32-0500 Diastolic blood pressure 83 mm[Hg] Cristhian Floresush [facility] 02-03-2024 12:32-0500 Heart rate 70 /min Cristhian Floresush [facility] 02-03-2024 12:32-0500 Respiratory rate 15 /min Cristhian Floresush [facility] 02-03-2024 12:32-0500 SaO2% (BldA) [Mass fraction] 99 % Cristhian Byrnes [facility] 02-03-2024 12:32-0500 Systolic blood pressure 145 mm[Hg] Cristhian Floresush [facility] 02-01-2024 11:30-0500 Body temperature 98.1 [degF] Cristhina Floresush [facility] 02-01-2024 11:30-0500 Diastolic blood pressure 88 mm[Hg] Cristhian Floresush [facility] 02-01-2024 11:30-0500 Heart rate 70 /min Cristhian Floresush [facility] 02-01-2024 11:30-0500 Respiratory rate 15 /min Cristhian Byrnes [facility] 02-01-2024 11:30-0500 SaO2% (BldA) [Mass fraction] 98 % Cristhian Byrnes [facility] 02-01-2024 11:30-0500 Systolic blood pressure 148 mm[Hg] Cristhian Byrnes [facility] 01-28-2024 12:52-0500 Body temperature 98.6 [degF] Kendall Graff PT [facility] 01-28-2024 12:52-0500 Diastolic blood pressure 73 mm[Hg] Kendall Graff PT [facility] 01-28-2024 12:52-0500 Heart rate 69 /min Kendall Graff PT [facility] 01-28-2024 12:52-0500 Respiratory rate 16 /min Kendall Graff PT [facility] 01-28-2024 12:52-0500 SaO2% (BldA) [Mass fraction] 99 % Kendall Graff PT [facility] 01-28-2024 12:52-0500 Systolic blood pressure 142 mm[Hg] Kendall Graff PT [facility] 01-27-2024 10:42-0500 Body temperature 98.6 [degF] Siena Rondon RN [facility] 01-27-2024 10:42-0500 Diastolic blood pressure 82 mm[Hg] Siena Rondon RN [facility] 01-27-2024 10:42-0500 Heart rate 75 /min Siena Rondon RN [facility] 01-27-2024 10:42-0500 Respiratory rate 16 /min Siena Rondon RN [facility] 01-27-2024 10:42-0500 SaO2% (BldA) [Mass fraction] 96 % Siena Rondon RN [facility] 01-27-2024 10:42-0500 Systolic blood pressure 144 mm[Hg] Siena Rondon RN [facility] 01-15-2024 13:12-0500 Body height 167.6 cm Jass Pepe MD Work Phone: [facility] 01-15-2024 13:12-0500 Body mass index (BMI) [Ratio] 37.93 kg/m2 Jass Pepe MD Work Phone: [facility] 01-15-2024 13:12-0500 Body weight 106.59 kg Jass Pepe MD Work Phone: [facility] 01-15-2024 13:12-0500 Diastolic blood pressure 66 mm[Hg] Jass Pepe MD Work Phone: [facility] 01-15-2024 13:12-0500 Heart rate 82 /min Jass Pepe MD Work Phone: [facility] 01-15-2024 13:12-0500 Systolic blood pressure 143 mm[Hg] Jass Pepe MD Work Phone: [facility] 10-20-2023 13:34-0500 Diastolic blood pressure 91 mm[Hg] Blaine Silveira MD Work Phone: [facility] 10-20-2023 13:34-0500 Systolic blood pressure 156 mm[Hg] Blaine Silveira MD Work Phone: [facility] 10-20-2023 13:24-0500 Body height 170.2 cm Blaine Silveira MD Work Phone: [facility] 10-20-2023 13:24-0500 Body mass index (BMI) [Ratio] 37.28 kg/m2 Blaine Silveira MD Work Phone: [facility] 10-20-2023 13:24-0500 Body weight 107.96 kg Blaine Silveira MD Work Phone: [facility] 10-20-2023 13:24-0500 Heart rate 74 /min Blaine Silveira MD Work Phone: [facility] 10-20-2023 13:24-0500 SaO2% (BldA) [Mass fraction] 97 % Blaine Silveira MD Work Phone: [facility] 07-16-2023 09:42-0400 Body mass index (BMI) [Ratio] 36.3 kg/m2 [facility] 07-16-2023 09:42-0400 Body temperature 96.2 [degF] [facility] 07-16-2023 09:42-0400 Diastolic blood pressure 71 mm[Hg] [facility] 07-16-2023 09:42-0400 Heart rate 70 /min [facility] 07-16-2023 09:42-0400 Respiratory rate 16 /min [facility] 07-16-2023 09:42-0400 Systolic blood pressure 174 mm[Hg] [facility] 06-30-2023 00:20-0400 Body weight 102.05 kg [facility] 06-25-2023 10:45-0400 Body height 170.18 cm [facility] 06-25-2023 10:45-0400 Body mass index (BMI) [Ratio] 38.9 kg/m2 [facility] 06-25-2023 10:45-0400 Body temperature 98 [degF] [facility] 06-25-2023 10:45-0400 Body weight 113 kg [facility] 06-25-2023 10:45-0400 Diastolic blood pressure 85 mm[Hg] [facility] 06-25-2023 10:45-0400 Heart rate 74 /min [facility] 06-25-2023 10:45-0400 Respiratory rate 14 /min [facility] 06-25-2023 10:45-0400 SaO2% (BldA) [Mass fraction] 98 % [facility] 06-25-2023 10:45-0400 Systolic blood pressure 206 mm[Hg] [facility] 06-25-2023 09:48-0400 Body mass index (BMI) [Ratio] 36.3 kg/m2 [facility] 06-25-2023 09:48-0400 Body temperature 97 [degF] [facility] 06-25-2023 09:48-0400 Diastolic blood pressure 101 mm[Hg] [facility] 06-25-2023 09:48-0400 Heart rate 82 /min [facility] 06-25-2023 09:48-0400 Respiratory rate 20 /min [facility] 06-25-2023 09:48-0400 Systolic blood pressure 206 mm[Hg] [facility] 05-30-2023 01:32-0400 Body weight 102.05 kg [facility] 05-28-2023 09:48-0400 Body mass index (BMI) [Ratio] 36.3 kg/m2 [facility] 05-28-2023 09:48-0400 Body temperature 96.5 [degF] [facility] 05-28-2023 09:48-0400 Diastolic blood pressure 76 mm[Hg] [facility] 05-28-2023 09:48-0400 Heart rate 78 /min [facility] 05-28-2023 09:48-0400 Respiratory rate 18 /min [facility] 05-28-2023 09:48-0400 Systolic blood pressure 186 mm[Hg] [facility] 04-30-2023 00:46-0400 Body weight 102.05 kg [facility] 04-23-2023 09:49-0400 Body mass index (BMI) [Ratio] 36.3 kg/m2 [facility] 04-23-2023 09:49-0400 Diastolic blood pressure 101 mm[Hg] [facility] 04-23-2023 09:49-0400 Heart rate 73 /min [facility] 04-23-2023 09:49-0400 Systolic blood pressure 169 mm[Hg] [facility] 04-23-2023 09:23-0400 Body temperature 96.6 [degF] [facility] 04-23-2023 09:23-0400 Respiratory rate 18 /min [facility] 04-16-2023 08:58-0400 Body height 167.64 cm [facility] 04-16-2023 08:58-0400 Body weight 102.05 kg [facility] 01-21-2023 09:01-0500 Body height 167.6 cm Angelica Dye [employer] SERVICER Work Phone: [facility] 01-21-2023 09:01-0500 Body mass index (BMI) [Ratio] 38.76 kg/m2 Angelica Dye [employer]ER SERVICER Work Phone: [facility] 01-21-2023 09:01-0500 Body temperature 98.01 [degF] Angelica Dye [employer]OLER SERVICER Work Phone: [facility] 01-21-2023 09:01-0500 Body weight 108.92 kg Angelica Dye [employer]OLER SERVICER Work Phone: [facility] 01-21-2023 09:01-0500 Diastolic blood pressure 84 mm[Hg] Angelica Dye COOLER SERVICER Work Phone: [facility] 01-21-2023 09:01-0500 Heart rate 67 /min Angelica Dye [employer]OLER SERVICER Work Phone: [facility] 01-21-2023 09:01-0500 Respiratory rate 16 /min Angelica Dye [employer]OLER SERVICER Work Phone: [facility] 01-21-2023 09:01-0500 SaO2% (BldA) [Mass fraction] 98 % Angelica Dye [employer]OLER SERVICER Work Phone: [facility] 01-21-2023 09:01-0500 Systolic blood pressure 198 mm[Hg] Angelica Dye COOLER SERVICER Work Phone: [facility] 02-19-2022 11:13-0400 Diastolic blood pressure 85 mm[Hg] Angelica Dye COOLER SERVICER Work Phone: [facility] 02-19-2022 11:13-0400 Systolic blood pressure 148 mm[Hg] Angelica Dye COOLER SERVICER Work Phone: [facility] 02-19-2022 11:08-0400 Body height 167.6 cm Angelica Dye COOLER SERVICER Work Phone: [facility] 02-19-2022 11:08-0400 Body mass index (BMI) [Ratio] 36.97 kg/m2 Angelica Dye COOLER SERVICER Work Phone: [facility] 02-19-2022 11:08-0400 Body temperature 97.7 [degF] Angelica Dye COOLER SERVICER Work Phone: [facility] 02-19-2022 11:08-0400 Body weight 103.9 kg Angelica Dye COOLER SERVICER Work Phone: [facility] 02-19-2022 11:08-0400 Heart rate 69 /min Angelica Dye [employer]OLER SERVICER Work Phone: [facility] 02-19-2022 11:08-0400 Respiratory rate 16 /min Angelica Dye COOLER SERVICER Work Phone: [facility] 02-19-2022 11:08-0400 SaO2% (BldA) [Mass fraction] 98 % Angelica Dye [employer]OLER SERVICER Work Phone: [facility] 02-03-2022 09:56-0500 Body mass index (BMI) [Ratio] 35.51 kg/m2 Angelica Dye COOLER SERVICER Work Phone: [facility] 02-03-2022 09:56-0500 Body weight 99.79 kg Angelica Dye COOLER SERVICER Work Phone: [facility] 02-03-2022 09:56-0500 Diastolic blood pressure 80 mm[Hg] Angelica Dye COOLER SERVICER Work Phone: [facility] 02-03-2022 09:56-0500 Systolic blood pressure 132 mm[Hg] Angelica Dye [employer]OLER SERVICER Work Phone: [facility] 01-22-2022 07:52-0500 Body temperature 98.01 [degF] Lindsey Plummer MD Work Phone: [facility] 01-22-2022 07:52-0500 Diastolic blood pressure 84 mm[Hg] Lindsey Plummer MD Work Phone: [facility] 01-22-2022 07:52-0500 Heart rate 81 /min Lindsey Plummer MD Work Phone: [facility] 01-22-2022 07:52-0500 Respiratory rate 18 /min Lindsey Plummer MD Work Phone: [facility] 01-22-2022 07:52-0500 SaO2% (BldA) [Mass fraction] 98 % Lindsey Plummer MD Work Phone: [facility] 01-22-2022 07:52-0500 Systolic blood pressure 123 mm[Hg] Lindsey Plummer MD Work Phone: [facility] 01-22-2022 04:08-0500 Body mass index (BMI) [Ratio] 37.28 kg/m2 Lindsey Plummer MD Work Phone: [facility] 01-22-2022 04:08-0500 Body weight 104.78 kg Lindsey Plummer MD Work Phone: [facility] 01-21-2022 11:49-0500 Respiratory rate 0 /min Lindsey Plummer MD Work Phone: [facility] 01-21-2022 08:20-0500 Body height 167.6 cm Lindsey Plummer MD Work Phone: [facility] 01-09-2022 09:44-0500 Body height 167.6 cm Meir Arthur MD Work Phone: [facility] 01-09-2022 09:44-0500 Body mass index (BMI) [Ratio] 37.82 kg/m2 Meir Arthur MD Work Phone: [facility] 01-09-2022 09:44-0500 Body temperature 98.01 [degF] Meir Arthur MD Work Phone: [facility] 01-09-2022 09:44-0500 Body weight 106.3 kg Meir Arthur MD Work Phone: [facility] 01-09-2022 09:44-0500 Diastolic blood pressure 80 mm[Hg] Meir Arthur MD Work Phone: [facility] 01-09-2022 09:44-0500 Heart rate 78 /min Meir Arthur MD Work Phone: [facility] 01-09-2022 09:44-0500 Respiratory rate 18 /min Meir Arthur MD Work Phone: [facility] 01-09-2022 09:44-0500 SaO2% (BldA) [Mass fraction] 97 % Meir Arthur MD Work Phone: [facility] 01-09-2022 09:44-0500 Systolic blood pressure 143 mm[Hg] Meir Arthur MD Work Phone: [facility] 01-09-2022 09:36-0500 Body height 167.6 cm Lindsey Plummer MD Work Phone: [facility] 01-09-2022 09:36-0500 Body mass index (BMI) [Ratio] 37.82 kg/m2 Lindsey Plummer MD Work Phone: [facility] 01-09-2022 09:36-0500 Body temperature 98.01 [degF] Lindsey Plummer MD Work Phone: [facility] 01-09-2022 09:36-0500 Body weight 106.3 kg Lindsey Plummer MD Work Phone: [facility] 01-09-2022 09:36-0500 Diastolic blood pressure 80 mm[Hg] Lindsey Plummer MD Work Phone: [facility] 01-09-2022 09:36-0500 Heart rate 78 /min Lindsey Plummer MD Work Phone: [facility] 01-09-2022 09:36-0500 Respiratory rate 16 /min Lindsey Plummer MD Work Phone: [facility] 01-09-2022 09:36-0500 SaO2% (BldA) [Mass fraction] 97 % Lindsey Plummer MD Work Phone: [facility] 01-09-2022 09:36-0500 Systolic blood pressure 143 mm[Hg] Lindsey Plummer MD Work Phone: [facility] 06-10-2021 11:16-0400 Body height 167.6 cm Blaine Silveira MD Work Phone: [facility] 06-10-2021 11:16-0400 Body mass index (BMI) [Ratio] 36.8 kg/m2 Blaine Silveira MD Work Phone: [facility] 06-10-2021 11:16-0400 Body weight 103.42 kg Blaine Silveira MD Work Phone: [facility] 06-10-2021 11:16-0400 Diastolic blood pressure 73 mm[Hg] Blaine Silveira MD Work Phone: [facility] 06-10-2021 11:16-0400 Heart rate 73 /min Blaine Silveira MD Work Phone: [facility] 06-10-2021 11:16-0400 SaO2% (BldA) [Mass fraction] 98 % Blaine Silveira MD Work Phone: [facility] 06-10-2021 11:16-0400 Systolic blood pressure 148 mm[Hg] Blaine Silveira MD Work Phone: [facility] 06-06-2019 14:33-0400 BMI (Body Mass Index) 42.97 kg/m2 Blaine Silveira [facility] 06-06-2019 14:33-0400 Body weight 120.75 kg Blaine Silveira [facility] 06-06-2019 14:33-0400 BP Diastolic 75 mm[Hg] Blaine Silveira [facility] 06-06-2019 14:33-0400 BP Systolic 159 mm[Hg] Blaine Silveira [facility] 06-06-2019 14:33-0400 Height 167.6 cm Blaine Silveira [facility] 06-06-2019 14:33-0400 Pulse (Heart Rate) 71 /min Blaine Silveira [facility] 06-06-2019 14:33-0400 Pulse Oximetry 96 % Blaine Silveira [facility] Encounters Encounter Date Encounter Type Care Provider Facility Start: 12-19-2024 End: 12-19-2024 ambulatory Kirill Newell Facility:[facility] Start: 05-27-2024 ambulatory Kirill Newell Facility:[facility] Start: 05-27-2024 End: 05-27-2024 ambulatory Kirill [place] Facility:[facility] Start: 03-25-2024 End: 03-29-2024 ambulatory JASS PEPE [facility] Start: 03-25-2024 End: 03-25-2024 Postop follow up visit related to original px Jass Pepe MD Work Phone: [facility] Comment on above: Status post total ri ght knee replacement (Primary Dx) Start: 03-11-2024 End: 03-15-2024 ambulatory [facility] Start: 03-11-2024 End: 03-11-2024 ambulatory Jass Pepe MD Work Phone: [facility] Comment on above: Status post total ri ght knee replacement (Primary Dx) Start: 03-09-2024 End: 03-13-2024 ambulatory JASS COLE [facility] Start: 03-09-2024 End: 03-09-2024 ambulatory Jass Pepe MD Work Phone: [facility] Comment on above: Status post total ri ght knee replacement (Primary Dx) Start: 03-07-2024 End: 03-11-2024 ambulatory [facility] Start: 03-07-2024 End: 03-07-2024 ambulatory Jass Pepe MD Work Phone: [facility] Comment on above: Status post total ri ght knee replacement (Primary Dx) Start: 03-04-2024 End: 03-08-2024 [facility] Start: 03-04-2024 End: 03-04-2024 ambulatory Jass Pepe MD [facility] Comment on above: Status post total ri ght knee replacement (Primary Dx) Start: 03-02-2024 End: 03-06-2024 [facility] Start: 03-02-2024 End: 03-02-2024 ambulatory Jass Pepe MD [facility] Comment on above: Status post total ri ght knee replacement (Primary Dx) Start: 02-29-2024 End: 03-04-2024 [facility] Start: 02-29-2024 End: 02-29-2024 ambulatory Jass Pepe MD [facility] Comment on above: Status post total ri ght knee replacement (Primary Dx) Start: 02-26-2024 End: 03-01-2024 [facility] JASS MALDONADO [facility] Start: 02-26-2024 End: 02-26-2024 ambulatory Jass Pepe MD [facility] Comment on above: Status post total ri ght knee replacement (Primary Dx) Start: 02-24-2024 End: 02-28-2024 [facility] Start: 02-24-2024 End: 02-24-2024 ambulatory Jass Pepe MD [facility] Phone: [facility] Comment on above: Status post total ri ght knee replacement (Primary Dx) Start: 02-22-2024 End: 02-26-2024 [facility] Start: 02-22-2024 End: 02-22-2024 ambulatory Jass Pepe MD [facility] Comment on above: Status post total ri ght knee replacement (Primary Dx) Start: 02-19-2024 End: 02-23-2024 [facility] Start: 02-19-2024 End: 02-19-2024 ambulatory Jass Pepe MD [facility] Phone: [facility] Comment on above: Status post total ri ght knee replacement (Primary Dx) Start: 02-17-2024 End: 02-21-2024 ambulatory JASS MALDONADO [facility] Start: 02-17-2024 End: 02-17-2024 ambulatory Jass Pepe MD [facility]: [facility] Comment on above: Status post total ri ght knee replacement (Primary Dx) Start: 02-15-2024 End: 02-19-2024 ambulatory JASS COLE [facility] Start: 02-15-2024 End: 02-15-2024 ambulatory Jass Pepe MD [facility] Comment on above: Status post total ri ght knee replacement Start: 02-12-2024 End: 02-12-2024 [facility] Start: 02-12-2024 End: 02-12-2024 Postop follow up visit related to original px Jass Pepe MD Work Phone: [facility] Comment on above: Status post total ri ght knee replacement (Primary Dx) Start: 02-12-2024 Home visit Kendall Graff PT [facility] Comment on above: PT OASIS DISCHARGE Start: 02-11-2024 End: 02-11-2024 Home visit Lindsey Centeno RN [facility] Comment on above: SN HH NON-OASIS/DISC IPLINE DC Start: 02-10-2024 End: 02-10-2024 Home visit Cristhian Byrnes VIDEO CONFERENCE SPECIALIST [facility] Comment on above: VIDEO CONFERENCE SPECIALIST ROUTINE VISIT Start: 02-09-2024 End: 02-09-2024 Home visit Lisa Odell PETAL CUTTER [facility] Comment on above: NIGEL HH ROUTINE Start: 02-08-2024 End: 02-08-2024 Refill Jass Pepe MD Work Phone: [facility] Comment on above: Status post total ri ght knee replacement (Primary Dx) VIDEO CONFERENCE SPECIALIST ROUTINE VISIT Start: 02-05-2024 End: 02-05-2024 Home visit Cristhian Byrnes [facility] Comment on above: VIDEO CONFERENCE SPECIALIST ROUTINE VISIT PETAL CUTTER HH ROUTINE Start: 02-03-2024 End: 02-03-2024 Home visit Cristhian Soniya [facility] Comment on above: VIDEO CONFERENCE SPECIALIST ROUTINE VISIT SN HH ROUTINE VISIT Start: 02-01-2024 Documentation procedure Yen gold LPN [facility] Start: 02-01-2024 End: 02-01-2024 Home visit Cristhian Byrnes [facility] Comment on above: VIDEO CONFERENCE SPECIALIST ROUTINE VISIT Start: 01-28-2024 End: 01-28-2024 Home visit Kendall Graff PT [facility] Comment on above: PT INITIAL EVALUATIO N Start: 01-27-2024 End: 02-12-2024 ambulatory [facility] Start: 01-27-2024 End: 01-27-2024 Home visit Siena Rondon RN [facility] Comment on above: SN HH OASIS START OF CARE Start: 01-26-2024 End: 01-26-2024 ambulatory [facility] Start: 01-15-2024 End: 01-15-2024 ambulatory [facility] Start: 01-15-2024 End: 01-15-2024 Office outpatient visit 15 minutes Jass Pepe MD Work Phone: [facility] Comment on above: Osteoarthritis of ri ght knee, unspecified osteoarthritis type (Primary Dx) Start: 01-11-2024 Documentation procedure Yen gold [facility] Comment on above: 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) Start: 01-07-2024 End: 01-11-2024 ambulatory [facility] Start: 12-14-2023 End: 12-14-2023 ambulatory [facility] Work Phone: Start: 12-14-2023 End: 12-14-2023 Patient encounter procedure [facility] Work Phone: Start: 11-12-2023 End: 11-12-2023 ambulatory [facility] Work Phone: Start: 11-12-2023 End: 11-12-2023 Patient encounter procedure [facility] Work Phone: Start: 11-09-2023 End: 11-10-2023 ambulatory [facility] Start: 11-04-2023 End: 11-05-2023 ambulatory [facility] Start: 11-02-2023 End: 11-03-2023 ambulatory [facility] Start: 10-28-2023 End: 10-29-2023 ambulatory [facility] Start: 10-26-2023 End: 10-27-2023 ambulatory [facility] Start: 10-21-2023 End: 10-22-2023 ambulatory [facility] Start: 10-20-2023 End: 10-20-2023 ambulatory [facility] Start: 10-20-2023 End: 10-20-2023 Office outpatient visit 25 minutes Blaine Silveira MD Work Phone: [facility] Comment on above: Coronary artery dise ase involving nuiqsut coronary artery of nuiqsut heart without angina pectoris (Primary Dx); Osteoarthritis of right knee, unspecified osteoarthritis type; Severe aortic insufficiency Start: 10-19-2023 End: 10-20-2023 ambulatory [facility] Start: 10-14-2023 End: 10-15-2023 ambulatory [facility] Start: 10-12-2023 End: 10-13-2023 ambulatory [facility] Start: 10-09-2023 End: 10-10-2023 ambulatory [facility] Start: 10-07-2023 End: 10-08-2023 ambulatory [facility] Start: 09-29-2023 End: 09-29-2023 ambulatory [facility] Start: 09-25-2023 Admission to [facility] Jass Pepe MD Work Phone: [facility] Comment on above: Osteoarthritis of ri ght knee, unspecified osteoarthritis type (Primary Dx); Hypertension, unspecified type Start: 09-14-2023 End: 09-18-[address] [facility] Start: 07-16-2023 End: 07-16-2023 ambulatory [facility] Work Phone: Start: 07-16-2023 End: 07-16-2023 [facility] Work Phone: Start: 06-25-2023 End: 06-25-2023 Emergency department patient visit [facility] Work Phone: Start: 06-25-2023 End: 06-29-2023 ambulatory [facility] Work Phone: Start: 06-25-2023 End: 06-29-2023 Discharged [facility] Work Phone: Start: 06-25-2023 Registered Rec[facility]ring [facility] Work Phone: Start: 05-28-2023 End: 05-29-2023 ambulatory [facility] Work Phone: Start: 05-28-2023 End: 05-29-2023 Discharged [facility] Work Phone: Start: 04-23-2023 End: 04-29-2023 ambulatory [facility] Work Phone: Start: 04-23-2023 End: 04-29-2023 [facility] Start: 01-22-2023 ambulatory TERRIE [place] [facility] Start: 01-21-2023 End: 01-25-2023 ambulatory NICOL IBANEZ [facility] Start: 01-21-2023 End: 01-22-2023 ambulatory ANGELICA RANDALL [facility] Start: 01-21-2023 End: 01-21-2023 Office outpatient visit 25 minutes Angelica Randall CNP Work Phone: [facility] Comment on above: S/P TAVR (transcathe ter [...] Robert Pugh Facil [id number] Start: 04-18-2022 ambulatory Roebrt Pugh [facility]il [id number] Start: 04-16-2022 ambulatory Robert Pugh [facility] [id number] Start: 04-14-2022 ambulatory Robert Pugh [facility] [id number] Start: 04-11-2022 ambulatory Robert Pugh [facility] [id number] Start: 04-09-2022 ambulatory Robert Pugh [facility] [id number] Start: 04-07-2022 ambulatory Robert Pugh [facility] [id number] Start: 04-02-2022 Orders Only Blaine hines MD Work Phone: [facility] Start: 03-31-2022 [...] Start: 02-19-2022 End: 02-23-2022 [facility] Start: 02-19-2022 End: 02-19-2022 Office outpatient visit 15 minutes Angelica Randall COOLER SERVICER Work Phone: [facility] Comment on above: S/P TAVR (transcathe ter aortic valve replacement) (Primary Dx) Start: 02-17-2022 ambulatory Robert Pugh [facility] [id number] Start: 02-14-2022 ambulatory Robert Pugh [facility] [id number] Start: 02-12-2022 ambulatory Robert Pugh [facility] [id number] Start: 02-10-2022 ambulatory Robert Pugh [facility] [id number] Start: 02-03-2022 End: 02-03-2022 Phys/qhp telephone evaluation 11-20 min Angelica Randall COOLER SERVICER Work Phone: [facility] Comment on above: S/P TAVR (transcathe ter aortic valve replacement) (Primary Dx) Start: 01-22-2022 Orders Only Terrie Núñez [facility] Comment on above: S/P TAVR (transcathe ter aortic valve replacement) (Primary Dx) S/P TAVR (transcathe ter aortic valve replacement) (Primary Dx); Shortness of breath Start: 01-21-2022 End: 01-22-2022 Evaluation and management of inpatient Lindsey Plummer MD Work Phone: [facility] Start: 01-14-2022 Orders for Hospital Mikaela Reynold Leal COOLER SERVICER Work Phone: [facility] Start: 01-13-2022 Orders Only Angelica Han COOLER SERVICER Work Phone: [facility] Comment on above: Encounter for prepro cedure screening laboratory testing for COVID-19 (Primary Dx) Start: 01-13-2022 Patient encounter status Muriel zuniga RN [facility] Start: 01-10-2022 Orders Only Clau Michaud RN [facility] Comment on above: Aortic valve stenosi s, severe (Primary Dx); Severe aortic insufficiency Start: 01-09-2022 Orders Only Terrie Oh RN [facility] Comment on above: Encounter for preope rative screening laboratory testing for COVID-19 virus (Primary Dx) Start: 01-09-2022 End: 01-09-2022 Patient encounter status Terrie Oh RN [facility] Start: 01-09-2022 End: 01-09-2022 Office outpatient new 45 minutes Meir Arthur MD Work Phone: [facility] Comment on above: Severe aortic insuff iciency (Primary Dx); Aortic valve stenosis, severe; Pre-operative cardiovascular examination Aortic valve stenosi s, severe; Pre-operative cardiovascular examination Start: 01-07-2022 Orders for Hospital Terrie naik RN [facility] Comment on above: Aortic valve stenosi s, severe (Primary Dx); Pre-operative cardiovascular examination; Other abnormal findings in urine ; Abnormal coagulation profile ; Dyspnea, unspecified type ; Abnormal finding of blood chemistry, unspecified Start: 01-07-2022 Patient encounter status Terrie Warren RN [facility] Start: 01-01-2022 Orders Only Terrie Oh RN [facility] Comment on above: Encounter for prepro cedure screening laboratory testing for COVID-19 (Primary Dx) Start: 01-01-2022 Patient encounter status Terrie Warren RN [facility] Start: 12-31-2021 Orders Only Terrie Oh RN [facility] Comment on above: Aortic valve stenosi s, severe (Primary Dx); Pre-operative cardiovascular examination; Other specified symptoms and signs involving the circulatory and respiratory systems Start: 12-31-2021 Patient encounter status Terrie Warren RN [facility] Start: 06-24-2021 End: 06-24-2021 Orders Only Iliana Madsen RN [facility] Comment on above: Nonrheumatic aortic valve insufficiency (Primary Dx) Start: 06-10-2021 End: 06-10-2021 Orders Only Iliana Madsen RN [facility] Comment on above: Coronary artery dise ase involving nuiqsut coronary artery of nuiqsut heart without angina pectoris (Primary Dx) Nonrheumatic aortic valve insufficiency (Primary Dx) Start: 06-10-2021 End: 06-10-2021 Office outpatient visit 25 minutes Blaine Silveira MD Work Phone: [facility] Comment on above: Coronary artery dise ase involving nuiqsut coronary artery of nuiqsut heart without angina pectoris; Nonrheumatic aortic valve insufficiency; Elevated sed rate; Mixed hyperlipidemia Start: 01-23-2021 End: 01-23-2021 Orders Only Mustapha Al Work Phone: [facility] Start: 06-14-2019 End: 06-14-2019 Subsequent hospital visit by physician Blaine Silveira Work Phone: [facility] Comment on above: Nonrheumatic aortic valve insufficiency Start: 06-06-2019 End: 06-06-2019 Office outpatient visit 25 minutes Blaine Silveira Work Phone: [facility] Comment on above: SOB (shortness of br eath); Coronary artery disease involving nuiqsut coronary artery of nuiqsut heart without angina pectoris; Fibrosing mediastinitis; Nonrheumatic aortic valve insufficiency Start: 01-05-2018 Ambulatory Blaine Silveira Facil ity:[place] Start: 01-05-2018 End: 01-05-2018 Ambulatory Blaine Silveira Work Phone: [facility] Procedures Date Procedure Procedure Detail Performing Clinician Start: 12-14-2023 Plain chest X-ray Start: 11-09-2023 FOLLOW UP IN PHYSICAL THERAPY [facility] Start: 11-04-2023 FOLLOW UP IN PHYSICAL THERAPY [facility] Start: 11-02-2023 FOLLOW UP IN PHYSICAL THERAPY [facility] Start: 10-28-2023 FOLLOW UP IN PHYSICAL THERAPY [facility] Start: 10-26-2023 FOLLOW UP IN PHYSICAL THERAPY [facility] Start: 10-21-2023 FOLLOW UP IN PHYSICAL THERAPY [facility] Start: 10-19-2023 FOLLOW UP IN PHYSICAL THERAPY [facility] Start: 10-14-2023 FOLLOW UP IN PHYSICAL THERAPY [facility] Start: 10-12-2023 FOLLOW UP IN PHYSICAL THERAPY [facility] Start: 10-09-2023 FOLLOW UP IN PHYSICAL THERAPY [facility] Start: 10-07-2023 FOLLOW UP IN PHYSICAL THERAPY [facility] Start: 09-29-2023 AMB REFERRAL TO PHYSICAL THERAPY JAVI AMEZCUA Start: 01-21-2023 Ecg routine ecg w/least 12 lds trcg only w/o i&r Angelica Claudia Tonia COOLER SERVICER Work Phone: Start: 02-19-2022 Ecg routine ecg w/least 12 lds trcg only w/o i&r Angelica Claudia Dye COOLER SERVICER Work Phone: Start: 01-22-2022 Ecg routine ecg w/least 12 lds trcg only w/o i&r Angelicaarmen Hsieh Dye COOLER SERVICER Work Phone: Start: 01-22-2022 Basic metabolic panel calcium total Angelica Hsieh Dye COOLER SERVICER Work Phone: Start: 01-21-2022 Potassium serum plasma/whole blood Angelica Hsieh Dye COOLER SERVICER Work Phone: Start: 01-21-2022 Dup-scan lxtr art/artl bpgs uni/lmtd study Angelica Randall COOLER SERVICER Work Phone: Start: 01-21-2022 Basic metabolic panel calcium total Angelica Randall COOLER SERVICER Work Phone: Start: 01-21-2022 Radiologic exam chest single view Angelica Randall COOLER SERVICER Work Phone: Start: 01-21-2022 Ecg routine ecg w/least 12 lds trcg only w/o i&r Angelicaarmen Randall COOLER SERVICER Work Phone: Start: 01-21-2022 Cardiac catheterization Angelica Randall COOLER SERVICER Work Phone: Start: 01-21-2022 2D TTE w or w/o fol w/con,fu Mikaela Leal COOLER SERVICER Work Phone: Start: 01-21-2022 Sodium serum plasma or whole blood Lindsey Plummer MD Work Phone: Start: 01-21-2022 End: 01-21-2022 TRANSCATHETER AORTIC VALVE REPLACEMENT FEMORAL APPROACH Meir Arthur MD Work Phone: Start: 01-21-2022 Basic metabolic panel calcium total Mikaela Leal COOLER SERVICER Work Phone: Start: 01-21-2022 Packed RBC preparation Mikaela lópez COOLER SERVICER Work Phone: Start: 01-09-2022 Ecg routine ecg w/least 12 lds trcg only w/o i&r Angelica Claudia Randall COOLER SERVICER Work Phone: Start: 06-10-2021 Ecg routine ecg [...] Activity Detail Author Start: 11-07-2026 Tetanus vaccination [facility] Start: 09-13-2024 Fall risk assessment Falls Risk Assessment [facility] Start: 03-18-2024 End: 03-18-2024 Follow-up encounter 03/18/2024 2:30 PM EDT Follow-Up [facility] [address] [id number] Jass Pepe MD [address] [place] [address] [facility] Start: 03-11-2024 End: 03-11-2024 ambulatory [facility] Start: 03-09-2024 End: 03-09-2024 ambulatory [facility] Start: 03-07-2024 End: 03-07-2024 ambulatory [facility] Start: 03-04-2024 End: 03-04-2024 ambulatory 03/04/2024 10:45 AM EDT [facility] [address] [place] [id number] Jass Pepe MD [address] [place] [address] Gabriel Tovar PTA [facility] Start: 03-02-2024 End: 03-02-2024 ambulatory 03/02/2024 10:45 AM EDT [facility] [address] [phone] Jass Pepe MD [address] [place] [address] Dajuan Arroyo, PT [facility] Start: 02-29-2024 End: 02-29-2024 ambulatory 02/29/2024 10:45 AM EDT [facility] [address] [phone] Jass Pepe MD [address] [place] [address] Gabriel Tovar [facility] Start: 02-26-2024 End: 02-26-2024 ambulatory 02/26/2024 10:45 AM EDT [facility] [address] [place] [address] Jass Pepe MD [address] [place] [address] Sherlyn Villavicencio [facility] Start: 02-24-2024 End: 02-24-2024 ambulatory 02/24/2024 10:45 AM EDT [facility] [address] [place] [address] Jass Pepe MD [address] [place] [address] Gabriel Tovar [facility] Start: 02-22-2024 End: 02-22-2024 ambulatory 02/22/2024 10:45 AM EDT [facility] [address] [place] [phone] Jass Pepe MD [address] [phone] Dajuan Arroyo, PT [facility] Start: 02-19-2024 End: 02-19-2024 ambulatory 02/19/2024 10:45 AM EDT [facility] [address] [place] [address] Jass Pepe MD [address] [place] [address] Gabriel Tovar PTA [facility] Start: 02-17-2024 End: 02-17-2024 ambulatory 02/17/2024 10:45 AM EDT [facility] [address] [place] [address] Jass Pepe MD [address] [place] [address] Gabriel Tovar PTA Discharge Disposition: Home [facility] Start: 02-15-2024 End: 02-15-2024 ambulatory 02/15/2024 10:45 AM EDT [facility] [address] [place] [address] Jass Pepe MD [address] [place] [address] Dajuan Arroyo, PT Discharge Disposition: Home [facility] Start: 02-12-2024 End: 02-12-2024 Follow-up encounter 02/12/2024 2:15 PM EDT Follow-Up [facility] [address] [place] [address] Jass Pepe MD [address] [place] [address] [facility] Start: 02-12-2024 End: 02-12-2024 Home visit 02/12/2024 8:00 AM EDT Home Care Visit [place] [phone] Kendall Graff, PT [facility] Start: 02-11-2024 End: 02-11-2024 Patient encounter procedure [facility] Start: 02-11-2024 End: 02-11-2024 Home visit 02/11/2024 3:30 AM EDT Home Care Visit [place] [phone] Kendall Graff, PT [facility] Start: 02-11-2024 End: 02-11-2024 Patient encounter procedure 02/11/[address] [phone] Lindsey Centeno RN [facility] Start: 02-10-2024 End: 02-10-2024 Home visit 02/10/2024 10:00 AM EDT Home Care Visit [place] [phone] Cristhian Byrnes PTA [facility] Start: 02-09-2024 End: 02-10-2024 Home visit [facility] Start: 02-08-2024 End: 02-09-2024 Home visit [facility] Start: 02-05-2024 End: 02-05-2024 Home visit 02/05/2024 10:00 AM EST Home Care Visit [place] [phone] Cristhian Byrnes PTA [facility] Start: 02-05-2024 End: 02-05-2024 Home visit [facility] Start: 02-03-2024 End: 02-03-2024 Home visit 02/03/2024 11:00 AM EST Home Care Visit [address] [phone] Cristhian Byrnes PTA [facility] Start: 02-03-2024 End: 02-03-2024 Home visit 02/03/2024 Home Care Visit [address] [phone] Cristhian Byrnes PTA [facility] Start: 01-28-2024 End: 01-28-2024 Home visit [facility] Start: 01-26-2024 End: 01-26-2024 Admission to same day surgery center 01/26/2024 2:11 PM EST - 01/26/2024 4:14 PM EST Surgery [facility] [address] [facility] [place] [address] Jass Pepe MD [address] [place] [address] Right total knee replacement Robotic [facility] Comment on above: Right total knee replacement Robotic Start: 01-26-2024 End: 01-26-2024 ARTHROPLASTY KNEE TOTAL ROBOTIC ARTHROPLASTY KNEE TOTAL ROBOTIC Osteoarthritis of right knee, unspecified osteoarthritis type 01/26/2024 2:11 PM EST [facility] Start: 01-26-2024 Subsequent hospital visit by physician 01/26/2024 2:11 PM EST Hospital Encounter [facility] [address] [facility] [place] [address] Jass Pepe MD [address] [place] [address] [facility] Start: 01-15-2024 End: 01-15-2024 Patient encounter procedure 01/15/2024 1:15 PM EST Surgical Consult [facility] [address] [place] [address] Jass Pepe MD [address] [place] [address] [facility] Start: 2023 End: 2023 Admission to same day surgery center 2023 7:05 AM EST - 2023 9:08 AM EST Surgery [facility] [address] [facility] [place] [address] Jass Pepe MD [address] [place] [address] Right total knee replacement Robotic [facility] Comment on above: Right total knee replacement Robotic Start: 2023 End: 2023 ARTHROPLASTY KNEE TOTAL ROBOTIC ARTHROPLASTY KNEE TOTAL ROBOTIC Osteoarthritis of right knee, unspecified osteoarthritis type 2023 7:05 AM EST [facility] Start: 2023 Subsequent hospital visit by physician [facility] Start: 12-11-2023 End: 12-11-2023 Patient encounter procedure 12/11/2023 1:00 PM EST Surgical Consult [facility] [address] [place] [address] Jass Pepe MD [address] [place] [address] [facility] Start: 12-03-2023 End: 12-03-2023 Patient encounter procedure 12/03/2023 10:30 AM EST Appointment [facility] CT Scan [address] [place] [address] Jass Pepe MD [address] [place] [address] [facility] [address] Scan Start: 12-03-2023 End: 12-03-2023 Patient encounter procedure 12/03/2023 7:15 AM EST Office Visit [facility] Preadmission Testing [address] [place] [address] [facility]readmission Testing Start: 11-30-2023 Administration of herpes zoster vaccine Zoster Vaccines (2 of 2) [facility] Start: 07-31-2023 COVID-19 Vaccine ( season) COVID-19 Vaccine ( season) [facility] Start: 07-31-2023 Influenza vaccination Sequential Influenza Vaccine (#1) [facility] Start: 06-25-2023 Simple repair f/e/e/n/l/m 2.5cm/< RPR F/E/E/N/L/M 2.5 CM/< [facility] Start: 01-21-2023 End: 01-21-2023 Patient encounter procedure [facility] Start: 07-31-2022 Influenza vaccination Sequential Influenza Vaccine (#1) [facility] Start: 04-28-2022 COVID-19 Vaccine (5 - Booster for Pfizer series) COVID-19 Vaccine (5 - Booster for Pfizer series) [facility] Start: 04-04-2022 End: 04-04-2022 Patient encounter procedure 04/04/2022 Office Visit Cardiology Blaine Silveira MD [address] [facility] [address] [place] [address] [facility] Start: 02-19-2022 End: 02-19-2022 Patient encounter procedure [facility] Start: 02-03-2022 End: 02-03-2022 Telemedicine consultation with patient 02/03/2022 Telemedicine Telephone Cardiology Angelica Randall, COOLER SERVICER [address] [id number] [facility] [place]: 01-21-2022 End: 01-21-2022 Admission to same day surgery center 01/21/2022 Surgery Lindsey Plummer MD [address] [facility] [address] [place] [address] Transcatheter Aortic Valve Replacement [facility] Periop Comment on above: Transcatheter Aortic Valve Replacement Start: 01-21-2022 Subsequent hospital visit by physician 01/21/2022 Hospital Encounter Lindsey Plummer MD [address] [facility] [address] [place] [address] [facility] Periop Start: 01-21-2022 End: 01-21-2022 TRANSCATHETER AORTIC VALVE REPLACEMENT FEMORAL APPROACH TRANSCATHETER AORTIC VALVE REPLACEMENT FEMORAL APPROACH severe aortic stenosis 01/21/2022 10:30 AM EST [facility] Start: 01-17-2022 End: 01-17-2022 Patient encounter procedure 01/17/2022 Office Visit Lab DyeAngelica, COOLER SERVICER [address] [place] [address] [facility] Start: 01-15-2022 End: 01-15-2022 Admission to same day surgery center [facility] 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: Left Heart Cath Possbile PTCA/Stent LEFT HEART CATH Start: 01-15-2022 Subsequent hospital visit by physician 01/15/2022 Hospital Encounter Silvio Mckeon MD [address] [facility] [address] [place] [address] [facility] Procedural Care Unit Start: 01-09-2022 End: 01-10-2022 Patient encounter procedure [facility] Start: 01-09-2022 Subsequent hospital visit by physician [facility] CT Start: 01-06-2022 End: 01-06-2022 Patient encounter procedure 01/06/2022 Office Visit Lab Angelica Randall, COOLER SERVICER [address] [place] [id number] [facility] Start: 12-25-2021 End: 08-25-2022 Echocardiography Echocardiogram complete Echocardiography Routine Nonrheumatic aortic valve insufficiency Expected: 12/25/2021 (Approximate), Expires: 08/25/2022 [facility] Comment on above: Expected: 12/25/2021 (Approximate), Expi res: 08/25/2022 Start: 07-31-2021 Influenza vaccination Sequential Influenza Vaccine (#1) [facility] Start: 06-21-2021 End: 06-21-2021 Patient encounter procedure 06/21/2021 Appointment Cardiology Blaine Silveira MD [address] [facility] [address] [place] [address] [phone] [facility] Start: 05-25-2021 Pneumococcal vaccination Pneumococcal Vaccine Age 65+ (2 of 2 - PPSV23) [facility] Start: 07-31-2020 Influenza vaccination given Sequential Influenza Vaccine (#1) [facility] Start: 2019 Fall risk assessment Falls Risk Assessment [facility] Start: 07-31-2019 Influenza vaccination given SEQUENTIAL INFLUENZA VACCINE (#1) [facility] Start: 06-14-2019 End: 06-14-2019 Appointment 06/14/2019 Appointment Cardiology Blaine Silveira MD [address] [place] [address] [phone] [facility] Start: 07-31-2017 Influenza vaccination SEQUENTIAL INFLUENZA VACCINE (#1) [facility] Work Phone: Start: 2014 Zoster vacc, sc ZOSTER VACCINE [facility] Work Phone: Start: 2004 Administration of herpes zoster vaccine Zoster Vaccines (1 of 2) [facility] Start: 2004 Screening for malignant neoplasm of colon [facility] Start: 1994 Screening for malignant neoplasm of breast Mammogram [facility] Start: 1994 Screening mammography Mammogram [facility] Start: 1970 COVID-19 Vaccine (1 of 2) COVID-19 Vaccine (1 of 2) [facility] Start: 1966 Adolescent depression screening assessment Depression Screening (PHQ9) [facility] Start: 1966 Depression screening using PHQ-9 (Patient Health Questionnaire 9) score [facility] Start: 1960 Pneumococcal Vaccine: Age 65+ (1 of 2 - PPSV23) Pneumococcal Vaccine: Age 65+ (1 of 2 - PPSV23) [facility] Start: 1957 History and physical examination, annual for health maintenance Wellness Visit [facility] Start: 1954 Fall risk assessment Falls Risk Assessment [facility] Start: 1954 Physical therapy management PT Plan of Care [facility] Start: 1954 Screening colonoscopy COLONOSCOPY [facility] Work Phone: Start: 1954 Screening for malignant neoplasm of cervix PAP SMEAR [facility] Work Phone: Start: 1954 Screening for malignant neoplasm of colon [facility] Start: 1954 Screening for osteoporosis Dexa Scan [facility] Start: 1954 Screening mammography Mammogram [facility] Start: 1954 Tetanus vaccination TETANUS EVERY 10 YR [facility] Work Phone: End: 12-31-2022 12 lead ECG ECG 12 Lead ECG Routine Aortic valve stenosis, severe Pre-operative cardiovascular examination 1 Occurrences starting 12/31/2021 until 12/31/2022 [facility] Comment on above: 1 Occurrences starting 12/31/2021 until 12/31/2022 End: 01-22-2023 12 lead ECG ECG 12 Lead ECG Routine S/P TAVR (transcatheter aortic valve replacement) 1 Occurrences starting 01/22/2022 until 01/22/2023 [facility] Comment on above: 1 Occurrences starting 01/22/2022 until 01/22/2023 End: 06-19-2023 12 lead ECG ECG 12 Lead ECG Routine S/P TAVR (transcatheter aortic valve replacement) 1 Occurrences starting 06/19/2022 until 06/19/2023 [facility] Comment on above: 1 Occurrences starting 06/19/2022 until 06/19/2023 End: 09-25-2024 12 lead ECG ECG 12 Lead ECG Routine Osteoarthritis of right knee, unspecified osteoarthritis type 1 Occurrences starting 09/27/2023 until 09/25/2024 [facility] Comment on above: 1 Occurrences starting 09/27/2023 until 09/25/2024 ARTHROPLASTY KNEE TO FARIHA ROBOTIC ARTHROPLASTY KNEE TOTAL ROBOTIC Osteoarthritis of right knee, unspecified osteoarthritis type [facility] End: 02-13-2023 Basic metabolic 2000 panel - Serum or Plasma Basic metabolic panel Lab Routine S/P TAVR (transcatheter aortic valve replacement) 1 Occurrences starting 02/13/2022 until 02/13/2023 [facility] Comment on above: 1 Occurrences starting 02/13/2022 until 02/13/2023 End: 01-19-2024 Basic metabolic 2000 panel - Serum or Plasma Basic metabolic panel Lab Routine S/P TAVR (transcatheter aortic valve replacement) 1 Occurrences starting 01/19/2023 until 01/19/2024 [facility] Comment on above: 1 Occurrences starting 01/19/2023 until 01/19/2024 End: 09-25-2024 Basic metabolic 2000 panel - Serum or Plasma Basic metabolic panel Lab Routine Osteoarthritis of right knee, unspecified osteoarthritis type 1 Occurrences starting 09/27/2023 until 09/25/2024 [facility] Comment on above: 1 Occurrences starting 09/27/2023 until 09/25/2024 Cardiac catheterization Cardiac Catheterization Cardiac Cath Routine 01/21/2022 12:46 PM EST [facility] End: 02-28-2023 Carotid artery doppler assessment Carotid Duplex Vascular Ultrasound Routine Aortic valve stenosis, severe Pre-operative cardiovascular examination Other specified symptoms and signs involving the circulatory and respiratory systems 1 Occurrences starting 12/31/2021 until 02/28/2023 [facility] Comment on above: 1 Occurrences starting 12/31/2021 until 02/28/2023 End: 02-13-2023 CBC panel - Blood by Automated count CBC Lab Routine S/P TAVR (transcatheter aortic valve replacement) 1 Occurrences starting 02/13/2022 until 02/13/2023 [facility] Comment on above: 1 Occurrences starting 02/13/2022 until 02/13/2023 End: 01-19-2024 CBC panel - Blood by Automated count CBC Lab Routine S/P TAVR (transcatheter aortic valve replacement) 1 Occurrences starting 01/19/2023 until 01/19/2024 [facility] Comment on above: 1 Occurrences starting 01/19/2023 until 01/19/2024 End: 09-25-2024 Complete blood count with white cell differential, manual CBC and differential Lab Routine Osteoarthritis of right knee, unspecified osteoarthritis type Hypertension, unspecified type 1 Occurrences starting 09/27/2023 until 09/25/2024 [facility] Comment on above: 1 Occurrences starting 09/27/2023 until 09/25/2024 End: 12-31-2022 Complete PFT with pre and post bronchodilators Complete PFT with pre and post bronchodilators PFT Routine Aortic valve stenosis, severe Pre-operative cardiovascular examination 1 Occurrences starting 12/31/2021 until 12/31/2022 [facility] Work Phone: Comment on above: 1 Occurrences starting 12/31/2021 until 12/31/2022 End: 09-25-2024 CT Knee Right Without Contrast CT Knee Right Without Contrast Imaging Routine Osteoarthritis of right knee, unspecified osteoarthritis type 1 Occurrences starting 09/27/2023 until 09/25/2024 [facility] Comment on above: 1 Occurrences starting 09/27/2023 until 09/25/2024 End: 06-06-2020 Echocardiography Echocardiogram complete Echocardiography Routine Nonrheumatic aortic valve insufficiency 1 Occurrences starting 06/06/2019 until 06/06/2020 [facility] Comment on above: 1 Occurrences starting 06/06/2019 until 06/06/2020 End: 08-11-2022 Echocardiography Echocardiogram complete Echocardiography Routine Nonrheumatic aortic valve insufficiency 1 Occurrences starting 06/10/2021 until 08/11/2022 [facility] Comment on above: 1 Occurrences starting 06/10/2021 until 08/11/2022 End: 03-22-2023 Echocardiography Echocardiogram complete Echocardiography Routine S/P TAVR (transcatheter aortic valve replacement) 1 Occurrences starting 01/22/2022 until 03/22/2023 [facility] Work Phone: Comment on above: 1 Occurrences starting 01/22/2022 until 03/22/2023 End: 01-22-2022 Echocardiography Echocardiogram complete Echocardiography Routine Once for 1 Occurrences starting 01/22/2022 until 01/22/2022 [facility] Work Phone: Comment on above: Once for 1 Occurrences starting 01/22/20 until 01/22/2022 Echocardiography Echocardiogram complete Echocardiography Routine 01/22/2022 10:04 AM EST [facility] End: 08-20-2023 Echocardiography Echocardiogram complete Echocardiography Routine S/P TAVR (transcatheter aortic valve replacement) 1 Occurrences starting 06/19/2022 until 08/20/2023 [facility] Work Phone: Comment on above: 1 Occurrences starting 06/19/2022 until 08/20/2023 End: 09-25-2024 Incentive spirometry - Initial Instruction Incentive spirometry - Initial Instruction Respiratory Care Routine Osteoarthritis of right knee, unspecified osteoarthritis type 1 Occurrences starting 09/27/2023 until 09/25/2024 [facility] Work Phone: Comment on above: 1 Occurrences starting 09/27/2023 until 09/25/2024 End: 12-31-2022 Methicillin resistant Staphylococcus aureus [Presence] in Unspecified specimen by Organism specific culture MRSA Culture/Screen Microbiology Routine Aortic valve stenosis, severe Pre-operative cardiovascular examination 1 Occurrences starting 12/31/2021 until 12/31/2022 [facility] Comment on above: 1 Occurrences starting 12/31/2021 until 12/31/2022 Methicillin resistan t Staphylococcus aureus [Presence] in Unspecified specimen by Organism specific culture MRSA Culture/Screen Microbiology Routine Aortic valve stenosis, severe Pre-operative cardiovascular examination 01/09/2022 9:45 AM EST [facility] Work Phone: End: 09-25-2024 Methicillin resistant Staphylococcus aureus [Presence] in Unspecified specimen by Organism specific culture MRSA Culture Microbiology Routine Osteoarthritis of right knee, unspecified osteoarthritis type 1 Occurrences starting 09/27/2023 until 09/25/2024 [facility] Comment on above: 1 Occurrences starting 09/27/2023 until 09/25/2024 End: 02-13-2023 Natriuretic peptide.B prohormone N-Terminal [Mass/volume] in Serum or Plasma NT PRO BNP Lab Routine S/P TAVR (transcatheter aortic valve replacement) Shortness of breath 1 Occurrences starting 02/13/2022 until 02/13/2023 [facility] Comment on above: 1 Occurrences starting 02/13/2022 until 02/13/2023 Patient Education ED Head Injury (Adult) ED Laceration: All Closures [facility] Work Phone: Patient referral [facility] Work Phone: End: 06-11-2022 Radionuclide myocardial perfusion study NM Myocardial Perfusion Multiple SPECT Imaging Routine Coronary artery disease involving nuiqsut coronary artery of nuiqsut heart without angina pectoris 1 Occurrences starting 06/10/2021 until 06/11/2022 [facility] Comment on above: 1 Occurrences starting 06/10/2021 until 06/11/2022 End: 01-09-2023 SARS-CoV-2 (COVID-19) RdRp gene [Presence] in Respiratory specimen by MAXIMUS with probe detection COVID-19, Molecular Microbiology Routine Encounter for preoperative screening laboratory testing for COVID-19 virus 1 Occurrences starting 01/09/2022 until 01/09/2023 [facility] Work Phone: Comment on above: 1 Occurrences starting 01/09/2022 until 01/09/2023 End: 01-13-2023 SARS-CoV-2 (COVID-19) RdRp gene [Presence] in Respiratory specimen by MAXIMUS with probe detection COVID-19, Molecular Microbiology Routine Encounter for preprocedure screening laboratory testing for COVID-19 1 Occurrences starting 01/13/2022 until 01/13/2023 [facility] Work Phone: Comment on above: 1 Occurrences starting 01/13/2022 until 01/13/2023 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 Vascular Ultrasound Routine 01/21/2022 2:16 PM EST [facility] Payers Date Payer Category Payer Self-pay [id number] 2019 Medicare MEDICARE MEDICAR E PART A & B [id number] 2019-Present [place] [id number] 2019 Medicare MEDICARE MEDICAR E PART A & B [id number] 2019-Present [phone] S J15 PART A CLAIMS [address] [address] [place] [address] [id number] .[id number] 2019 Medicare [id number] 2019 Unknown [id number] 2000 Unknown [id number] 2.16.840.1.385424.3.249.13 2000 Unknown [facility] UHC/UHONE/[place] LDEN RULE xxxxxxxxx 2000-Present xxxxxxxxx 1.2.840.448022.1.13.385.2.7.3 .060555.315 1954 Unknown [id number] 2.16.840.1.828367.3.579.2.106 9 1954 Unknown [id number] 2.16.840.1.331205.3.579.2.106 9 1954 Unknown [id number] 2.16.840.1.932500.3.579.2.106 9 1954 Unknown [id number] 2.16.840.1.621446.3.579.2.106 9 1954 Unknown [id number] 2.16.840.1.559051.3.579.2.106 9 1954 Unknown [id number] 2.16.840.1.910191.3.579.2.106 9 1954 Unknown [id number] 2.16.840.1.757416.3.579.2.106 9 1954 Unknown [id number] 2.16.840.1.421027.3.579.2.106 9 1954 Unknown [id number] 2.16.840.1.336374.3.579.2.106 9 1954 Unknown [id number] 2.16.840.1.431155.3.579.2.106 9 1954 Unknown [id number] 2.16.840.1.871406.3.579.2.106 9 1954 Unknown [id number] 2.16.840.1.501365.3.579.2.106 9 1954 Unknown [id number] 2.16.840.1.922356.3.579.2.106 9 1954 Unknown [id number] 2.16.840.1.214451.3.579.2.106 9 1954 Unknown [id number] 2.16.840.1.595359.3.579.2.106 9 1954 Unknown [id number] 2.16.840.1.925488.3.579.2.106 9 1954 Unknown [id number] 2.16.840.1.447893.3.579.2.106 9 1954 Unknown [id number] 2.16.840.1.298282.3.579.2.106 9 1954 Unknown [id number] 2.16.840.1.851023.3.579.2.106 9 1954 Unknown [id number] 2.16.840.1.059972.3.579.2.106 9 1954 Unknown [id number] 2.16.840.1.800471.3.579.2.106 9 1954 Unknown [id number] 2.16.840.1.788599.3.579.2.106 9 1954 Unknown [id number] 2.16.840.1.213770.3.579.2.106 9 1954 Unknown [id number] 2.16.840.1.852207.3.579.2.106 9 1954 Unknown [id number] 2.16.840.1.555167.3.579.2.106 9 1954 Unknown [id number] 2.16.840.1.438043.3.579.2.106 9 1954 Unknown [id number] 2.16.840.1.299482.3.579.2.106 9 1954 Unknown [id number] 2.16.840.1.291973.3.579.2.106 9 1954 Unknown [id number] 2.16.840.1.025882.3.579.2.106 9 1954 Unknown [id number] 2.16.840.1.502145.3.579.2.106 9 1954 Unknown [id number] 2.16.840.1.089979.3.579.2.106 9 1954 Unknown [id number] 2.16.840.1.016529.3.579.2.106 9 1954 Unknown [id number] 2.16.840.1.084869.3.579.2.106 9 1954 Unknown [id number] 2.16.840.1.984865.3.579.2.106 9 1954 Unknown [id number] 2.16.840.1.703591.3.579.2.106 9 1954 Unknown [id number] 2.16.840.1.175888.3.579.2.106 9 1954 Unknown [id number] 2.16.840.1.516417.3.579.2.106 9 1954 Unknown [id number] 2.16.840.1.816112.3.579.2.900 1954 Unknown [id number] 2.16.840.1.887635.3.579.2.900 1954 Unknown [id number] 2.16.840.1.753345.3.579.2.902 1954 Unknown [id number] 2.16.840.1.523398.3.579.2.902 1954 Unknown [id number] 2.16.840.1.744075.3.579.2.902 1954 Unknown [id number] 2.16.840.1.116096.3.579.2.124 3 1954 Unknown [id number] 2.16.840.1.499384.3.579.2.124 3 1954 Unknown [id number] 2.16.840.1.611945.3.579.2.124 3 1954 Unknown [id number] 2.16.840.1.137640.3.579.2.124 3 1954 Unknown [id number] 2.16.840.1.012519.3.579.2.124 3 1954 Unknown [id number] 2.16.840.1.783159.3.579.2.124 3 1954 Unknown [id number] 2.16.840.1.402243.3.579.2.124 3 1954 Unknown [id number] 2.16.840.1.635991.3.579.2.124 3 1954 Unknown [id number] 2.16.840.1.869474.3.579.2.124 3 1954 Unknown [id number] 2.16.840.1.462862.3.579.2.124 3 1954 Unknown [id number] 2.16.840.1.367859.3.579.2.124 3 1954 Unknown [id number] 2.16.840.1.989243.3.579.2.124 3 1954 Unknown [id number] 2.16.840.1.261308.3.579.2.903 1954 Unknown [id number] 2.16.840.1.028234.3.579.2. 1954 Unknown [id number] 2.16.840.1.969502.3.579.2.903 1954 Unknown [id number] 2.16.840.1.708897.3.579.2. 1954 Unknown [id number] 2.16.840.1.376889.3.579.2.903 1954 Unknown [id number] 2.16.840.1.760809.3.579.2.903 1954 Unknown [id number] 2.16.840.1.573982.3.579.2.903 1954 Unknown [id number] 2.16.840.1.417550.3.579.2. 1954 Unknown [id number] 2.16.840.1.231725.3.579.2.903 1954 Unknown [id number] 2.16.840.1.257839.3.579.2.90 1954 Unknown [id number] 2.16.840.1.181857.3.579.2.903 1954 Unknown [id number] 2.16.840.1.233857.3.579.2.903 1954 Unknown [id number] 2.16.840.1.328736.3.579.2.903 1954 Unknown [id number] 2.16.840.1.844266.3.579.2.903 1954 Unknown [id number] 2.16.840.1.255567.3.579.2. 1954 Unknown [id number] 2.16.840.1.705286.3.579.2.903 1954 Unknown [id number] 2.16.840.1.213794.3.579.2. 1954 Unknown [id number] 2.16.840.1.374594.3.579.2.903 1954 Unknown [id number] 2.16.840.1.227831.3.579.2. 1954 Unknown [id number] 2.16.840.1.377449.3.579.2.903 1954 Unknown [id number] 2.16.840.1.439345.3.579.2.3 1954 Unknown [id number] 2.16.840.1.984173.3.579.2.903 1954 Unknown [id number] 2.16.840.1.711354.3.579.2. Unknown COMMERCIAL COMME RCIAL MISCELLANEOUS [id number] Effective for all dates [id number] 1.2.840.505884.1.13.385.2.7.3 .981885.315 Unknown COMMERCIAL COMME RCIAL MISCELLANEOUS [id number] Effective for all dates [phone] [address] [address] [place] [address] 1.2.840.660830.1.13.385.2.7.3 .092590.315 Unknown [id number] 2.16.840.1.782423.3.579.2.462 Unknown [id number] 2.16.840.1.492220.3.579.2.462 Unknown [id number] 2.16.840.1.552599.3.579.2.462 Social History Date Type Detail Facility Start: 06-08-2017 End: 01-21-2023 Tobacco smoking status NHIS Never smoker [facility] Start: 1955 Sex Assigned At Not on file [facility] Work Phone: Start: 06-06-2019 Alcohol Comment occasional [facility] Start: 06-11-2020 End: 01-21-2023 Tobacco use and exposure Never used [facility] Start: 06-11-2020 End: 03-04-2024 Alcohol intake Current drinker of alcohol (finding) [facility] Start: 06-10-2021 End: 02-24-2024 Alcohol intake [facility] Start: 01-11-2022 End: 01-21-2023 Exposure to SARS-CoV-2 (event) Not sure [facility] Start: 12-06-2019 End: 06-25-2023 Tobacco smoking status NHIS Unknown if ever smoked [facility] Start: 1955 Sex Assigned At Female [facility] Start: 09-14-2023 End: 02-24-2024 Tobacco use panel [facility] Start: 06-06-2019 Gender identity Identifies as female gender (finding) [facility] Start: 06-06-2019 Sexual orientation Heterosexual (finding) [facility] Lack of Transportati on (Medical) No [facility] Medical Equipment Procedure Code Equipment Code Equipment Origin al Text Equipment Identifier Dates Closure 6fr Angioseal Vip - [id number] Start: 01-15-2022 Closure Perclose Prostyle - [id number] Start: 01-21-2022 Valve 34mm Evolu t Pro Aortic - [id number] 7)[id number], [id number] FDA Start: 01-21-2022 Hemostat 2 X 4in Surgicel Snow Sterl - [id number] Start: 01-21-2022 Baseplate Sz3 Ti bial Tritanium Triathlon - [id number] ()[id number] 7)[id number])[id number], [id number] FDA Start: 01-26-2024 Component Sz3 Fe m Cr Rt Cementless Beaded W/Pa Triathlon - [id number] ()[id number] 7)[id number])[id number] FDA Start: 01-26-2024 Patella 29mm Asymmetric Metal-Backed Tritanium Triathlon - [id number] ()[id number] 7)[id number])[id number], [id number] FDA Start: 01-26-2024 Insert Sz3-11 Ti bial Cr X3 Triathlon [id number] - [id number] ()[id number] 7)[id number])[id number], [id number] FDA Start: 01-26-2024 Clinical Notes 06-10-2021 to 03-11-2024 Flores Gore PTA - 03/11/2024 10:45 AM Flores Lund PTA - 03/09/2024 10:45 AM Flores Lund PTA - 03/07/2024 10:45 AM Nadege Chua - 03/04/2024 10:45 AM EDTNarrapatrizia Note Date & Type Note Facility 03-11-2024 History of Presen t illness Narrative [facility] OUTPATIENT REHABILITATION DAILY TREATMENT NOTE Today's [...] Arnav Notes visit 11: 10:45-11:28 Therapeutic Exercise (82294) Intervention SciFit Bike L4 x 6 mins [...] up and over 6 Intervention Possibly add eritrean split squats/ stool scoots/ standing hamstring curls [...] PT visits Flores Gore PTA STATE LICENSE, [id number] documented in this encounter [facility] 03-09-2024 History of Presen t illness Narrative [facility] OUTPATIENT REHABILITATION DAILY TREATMENT NOTE Today's [...] Arnav Notes Visit #10: 10:36-11:26 Therapeutic Exercise (14053) Intervention SciFit Bike L4 x 6 mins [...] up and over 6 Intervention Possibly add eritrean split squats/ stool scoots/ standing hamstring curls [...] Flexion ROM Flores Gore PTA STATE LICENSE, [id number] documented in this encounter [facility] 03-07-2024 History of Presen t illness Narrative [facility] OUTPATIENT REHABILITATION DAILY TREATMENT NOTE Today's [...] Arnav Notes Visit #8: 10:45-11:30 Therapeutic Exercise (67491) Intervention SciFit Bike L4 x 6 mins [...] up and over 6 Intervention Possibly add eritrean split squats/ stool scoots/ standing hamstring curls [...] on flexion Flores Gore PTA STATE LICENSE, [id number] documented in this encounter [facility] 03-04-2024 History of Presen t illness Narrative [facility] OUTPATIENT REHABILITATION DAILY TREATMENT NOTE Today's [...] Arnav Notes Visit #8: 10:45-11:40 Therapeutic Exercise (80548) Intervention SciFit Bike L4 x 6 mins [...] up and over 6 Intervention Possibly add eritrean split squats/ stool scoots/ standing hamstring curls [...] entire session. Gabriel Tovar PTA State License [id number] documented in this encounter [facility] 03-02-2024 History of Presen t illness Narrative [facility] OUTPATIENT REHABILITATION DAILY TREATMENT NOTE Today's [...] Notes Visit #7: 10:46 11:24 Therapeutic Exercise (83810) Intervention SciFit Bike L4 x 6 mins [...] taps w/6 step x10 Intervention Possibly add eritrean split squats/ stool scoots/ standing hamstring curls [...] entire session. Dajuan Arroyo PT State License, [id number] documented in this encounter [facility] 02-29-2024 History of Presen t illness Narrative [facility] OUTPATIENT REHABILITATION DAILY TREATMENT NOTE Today's [...] Notes Visit: 1050 - 11:40 Therapeutic Exercise (63226) Intervention SciFit Bike L4 x 6 mins [...] and ROM Gabriel Tovar PTA STATE LICENSE, [id number] documented in this encounter [facility] 02-26-2024 History of Presen t illness Narrative [facility] OUTPATIENT REHABILITATION DAILY TREATMENT NOTE Today's [...] Precautions/Contraindications Supervising PT: Arnav Notes Visit: 5 [id number] Therapeutic Exercise (40305) Intervention SciFit Bike L4 x 6 mins [...] as tolerated Sherlyn Villavicencio PTA STATE LICENSE, [id number] documented in this encounter [facility] 02-24-2024 History of Presen t illness Narrative [facility] OUTPATIENT REHABILITATION DAILY TREATMENT NOTE Today's [...] Arnav Notes Visit: 4 10:45-11:11:43 Therapeutic Exercise (79898) Intervention SciFit Bike L4 x 5 mins [...] entire session. Gabriel Tovar PTA State License [id number] documented in this encounter [facility] 02-22-2024 History of Presen t illness Narrative [facility] OUTPATIENT REHABILITATION DAILY TREATMENT NOTE Today's [...] Visit: 3 10:40 - 11:15 Therapeutic Exercise (90986) Intervention SciFit Bike L4 x 5 mins [...] entire session. Dajuan Arroyo PT State License, [id number] documented in this encounter [facility] 02-19-2024 History of Presen t illness Narrative [facility] OUTPATIENT REHABILITATION DAILY TREATMENT NOTE Today's [...] Visit: 2 10:48 - 11:46 Therapeutic Exercise (07128) Intervention SciFit Bike L4 x 5 mins [...] strengthening progression Gabriel Tovar PTA STATE LICENSE, [id number] documented in this encounter [facility] 02-17-2024 History of Presen t illness Narrative [facility] OUTPATIENT REHABILITATION DAILY TREATMENT NOTE Today's [...] Arnav Notes Visit: 1 10:50- Therapeutic Exercise (97023) Intervention HEP was reviewed w/ patient and [...] for the entire session. Gabriel Tovar PTA [id number] documented in this encounter [facility] 02-15-2024 History of Presen t illness Narrative [facility] OUTPATIENT REHABILITATION Evaluation Today's Date 02/15/2024 [...] the ability to ambulate better. Social Support: Moravian, social, or cultural considerations to be made aware of before starting treatment: No Home Environment Current Home Environment: Setup: single story house Entry: steps with railing Red Flags: None Comments: Barriers to Care: None Fall risk screening Fallen 2 or more times in the last 12 months: No Injured as a result of a fall in the last 12 months: No Moravian, social, or cultural considerations to be made [...] Notes Eval: 10:51 - 11:17 Therapeutic Exercise (55730) Intervention HEP was reviewed w/ patient and [...] with HEP in 2 weeks. CPT Code 91369 Low 17249 Moderate 62967 High History 0 1-2 3+ Comorbidities: asthma, [...] week Duration: 6 weeks Interventions: Therapeutic Exercise (65321), Neuromuscular Re-Education (33725), Manual Therapy (16710), Therapeutic/ Functional Activities (66751), Gait Training (36696), Aquatic Therapy (43401), Hot/Cold Pack (33175), Electrical Stimulation - Medicare, Unattended (G0283), Ultrasound (75225), and Vasopneumatic (87841) Rehab Potential: good Patient Education Provided Pt [...] entire session. Dajuan Arroyo PT State License, [id number] documented in this encounter [facility] 02-12-2024 Patient's home Pr ogress note Pt reports she is doing well and ready for dc. Is using a SPC around the house. Sees this afternoon for followup and staple removal. documented in this encounter [id number] Telephone encounter Note* Telephone Encounter - Treva Obregon LPN - 02/08/2024 12:09 PM EDT Patient requested refill for pain medication. Surgery 01/26 right TKR, last fill 01/26. MiogIqknxl14-27-2031 Miscellaneous Notes* Telephone Encounter - Treva Obregon LPN - 02/08/2024 12:09 PM EDT Patient requested refill for pain medication. Surgery 01/26 right TKR, last fill 01/26. documented in this [id number] History of Present illness Narrative* Yen Carlson [...] to call the office. documented in this [id number] History of Present illness Narrative* Yen Carlson LPN - 01/11/2024 2:11 PM EST Amber's nasal swab was positive for MSSA w her preop testing. She will start Doxycyline 100mg bid x 7days and Mupirocin 2% ointment to both nostrils bid x 7 days. I did speak w Amber. documented in this [id number] Patient's home Progress note* Actions Routine visit [...] no longer homebound documented in this encounter [id number] Patient's home Progress note* Actions Routine visit [...] no longer homebound documented in this encounter [id number] Evaluation + Plan note* Assessment & Plan Note - Blaine Silveira MD - 10/20/2023 1:56 PM ESTAssociated Problem(s): Severe aortic insufficiency Doing well from Tavr standpoint Should be low cardiac for surgery from coronary and Valve Would suggest a pre op Pulmonary consult just to be sure from her fibrosing mediastinitis history Also would continue asa through surgery [id number] History of Present illness Narrative* Blaine Silveira MD - 10/20/2023 1:56 PM EST Patient Name: Vickie Gonzalez [facility] MR #: [id number] General Cardiology Blaine Silveira MD, [facility] 10/20/23 Dear Nicol Ibanez MD, Vickie Gonzalez was seen in follow up for : Problem Coronary Artery Disease Involving [place] Coronary Artery of [place] Heart Without Angina Pectoris CABG 2000 Cath 2010 all grafts open 12/2021- Pat Dye/Missy Severe Aortic Insufficiency EVOLUT 34mm via R SALES DEVELOPMENT CONSULTANT. 01/21/222022 2 D cardiac echocardiogram looked good [...] 1 (one) tablet by mouth daily . MIMRIHC-GGFIOXZVC-XNIH ORAL Take 1 tablet by mouth daily [...] No medications on file documented in this [id number] Miscellaneous Notes* Assessment & Plan Note - Blaine Silveira MD - 10/20/2023 1:56 PM ESTAssociated Problem(s): Severe aortic insufficiency Doing well from Tavr standpoint Should be low cardiac for surgery from coronary and Valve Would suggest a pre op Pulmonary consult just to be sure from her fibrosing mediastinitis history Also would continue asa through surgery documented in this [id number] Progress note Author Lindsey Walsh [facility] July 16, 2023 12:13pm Note Date/Time July 16, 2023 12 :05pm [facility] [address] [place] [address] Progress Note - Wound Care 07/16/23 1200 MR#: [id number] Acct: [id number] Name: VICKIE GONZALEZ Rep #:[id number] 09 : [...] Recorded Date Recorded By Document 07/16/23 09:42 [id number] 07/16/23 09:51 KW 07/16/23 09:42 - Today's Visit Information Type of service Follow-up Visit (Physician/COOLER SERVICER ) Arrival Mode Ambulatory Patient Identification Verified [...] Recorded Date Recorded By Document 07/16/23 09:42 [id number] 07/16/23 09:51 07/16/23 09:42 Wound Center Nurse [...] Recorded Date Recorded By Document 07/16/23 10:05 [id number] 07/16/23 10:06 07/16/23 10:05 Wound Care Center [...] No signs of infection. Pain: May take wwig-gno-euvohrz Tylenol as needed for discomfort. Host factors: Basal cell carcinoma left lower extremity, edema. ? At this time with all wounds healed she is discharged from the wound care center. She has follow-up appointment with baby stroller rental clerk next week. I answered all the patient's questions.? To return to the wound healing center as needed or call sooner if the patient has any questions or concerns. 07/16/23 1213 <Electronically signed by Lindsey Walsh DPM> Cosigner Signature (if applicable): CC: ~ Signed [facility] Work Phone: 1(418) 683-375307-27-2023 Progress note Author Lindsey Nico [facility] June 25, 2023 11:36am Note Date/Time June 25, 2023 10:1 2am [facility] [address] [place] [address] Progress Note - Wound Care 06/25/23 1012 MR#: [id number] Acct: [id number] Name: VICKIE GONZALEZ Rep #:[id number] 07 : [...] Date Recorded By Document 06/04/23 10:15 AK [id number] 06/04/23 10:17 AK Document 06/18/23 10:58 JF [id number] 06/18/23 11:01 Document 06/25/23 09:48 DL [id number] 06/25/23 09:56 DL 06/04/23 06/18/23 06/25/23 10:15 10:58 09:48 - Today's Visit Information Type of service Follow-up Visit Follow-up Visit Follow-up Visit (Physician/COOLER SERVICER (Physician/COOLER SERVICER (Physician/COOLER SERVICER ) ) ) Arrival Mode Ambulatory Ambulatory [...] Date Recorded By Document 06/04/23 10:15 AK [id number] 06/04/23 10:17 AK Document 06/18/23 10:58 JF [id number] 06/18/23 11:01 Document 06/25/23 09:48 DL [id number] 06/25/23 09:56 DL 06/04/23 06/18/23 06/25/23 10:15 [...] None Present (0 %) %) -Granulation Quality [place] N/A -Slough/Fibrin Yes No -Necrosis Amt Medium [...] Date Recorded By Document 06/04/23 12:01 PL [id number] 06/04/23 12:02 PL Document 06/18/23 12:17 PL [id number] 06/18/23 12:19 PL 06/04/23 06/18/23 12:01 12:17 [...] -Expiration Date 02/29/28 03/30/28 -Product Lot Number [id number] 001 -Percent Used 100 100 -Bleeding [...] Recorded Date Recorded By Document 06/04/23 10:49 [id number] 06/04/23 10:49 Document 06/18/23 10:58 [id number] 06/18/23 11:01 06/04/23 06/18/23 10:49 10:58 Wound [...] No signs of infection. Pain: May take ffex-zsh-ozunydf Tylenol as needed for discomfort. Host factors: Basal cell carcinoma left lower extremity, edema. ? I answered all the patient's questions.? To return to the wound healing center in 3 weeks or call sooner if the patient has any questions or concerns. 06/25/23 1136 <Electronically signed by Lindsey Walsh DPM> Cosigner Signature (if applicable): CC: ~ Signed [facility] Work Phone: 1(886) 446-131107-20-2023 Progress note Author Lindsey Nico [facility] June 18, 2023 5:46pm Note Date/Time June 18, 2023 9:48 am [facility] [address] [place] [address] Progress Note - Wound Care 06/18/23 0947 MR#: [id number] Acct: [id number] Name: PARAGVICKIE CLEMONS Rep #:[id number] 07 : 1955 67 From: Lindsey sykes DPM PCP: Dr. Nicol Ibanez MD [facility] Location: History of Present Illness Date of [...] Date Recorded By Document 06/04/23 10:15 DONNIE [id number] 06/04/23 10:17 DONNIE 06/04/23 10:15 WC - Today's Visit Information Type of service Follow-up Visit (Physician/COOLER SERVICER ) Arrival Mode Ambulatory Patient Identification Verified [...] Date Recorded By Document 06/04/23 10:15 AK [id number] 06/04/23 10:17 AK 06/04/23 10:15 Wound Center [...] Attached -Granulation Amt Medium (34-66%) -Granulation Quality [place] -Slough/Fibrin Yes -Necrosis Amt Medium (34-66%) -Necrotic [...] Date Recorded By Document 06/04/23 12:01 PL [id number] 06/04/23 12:02 PL 06/04/23 12:01 Wound Center [...] Disc -Expiration Date 02/29/28 -Product Lot Number [id number] -Percent Used 100 -Bleeding Controlled with [...] Recorded Date Recorded By Document 06/04/23 10:49 [id number] 06/04/23 10:49 ARNOLDO 06/04/23 10:49 Wound Care [...] No signs of infection. Pain: May take hqry-oqq-vqgjvgi Tylenol as needed for discomfort. Host factors: Basal cell carcinoma left lower extremity, edema. ? I answered all the patient's questions.? To return to the wound healing center in 1 week or call sooner if the patient has any questions or concerns. 06/18/23 1746 <Electronically signed by Lindsey Walsh DPM> Cosigner Signature (if applicable): CC: ~ Signed [facility] Work Phone: 1(631) 317-448107-06-2023 Progress note Author Lindsey Nico [facility] June 04, 2023 1:00pm Note Date/Time June 04, 2023 1:00p [facility] [address] [place] [address] Progress Note - Wound Care 06/04/23 1255 MR#: [id number] Acct: [id number] Name: VICKIE GONZALEZ Rep #:[id number] 13 : [...] Date Recorded By Document 06/04/23 10:15 DONNIE [id number] 06/04/23 10:17 DONNIE 06/04/23 10:15 - Today's Visit Information Type of service Follow-up Visit (Physician/COOLER SERVICER ) Arrival Mode Ambulatory Patient Identification Verified [...] Date Recorded By Document 06/04/23 10:15 AK [id number] 06/04/23 10:17 AK 06/04/23 10:15 Wound Center [...] Attached -Granulation Amt Medium (34-66%) -Granulation Quality [place] -Slough/Fibrin Yes -Necrosis Amt Medium (34-66%) -Necrotic [...] Date Recorded By Document 06/04/23 12:01 PL [id number] 06/04/23 12:02 PL 06/04/23 12:01 Wound Center [...] Disc -Expiration Date 02/29/28 -Product Lot Number [id number] -Percent Used 100 -Bleeding Controlled with [...] Date Recorded By Document 06/04/23 10:49 ARNOLDO [id number] 06/04/23 10:49 ARNOLDO 06/04/23 10:49 Wound Care [...] No signs of infection. Pain: May take rork-div-qfiqrnh Tylenol as needed for discomfort. Host factors: Basal cell carcinoma left lower extremity, edema. ? I answered all the patient's questions.? To return to the wound healing center in 2 weeks or call sooner if the patient has any questions or concerns. 06/04/23 1300 <Electronically signed by Lindsey aWlsh DPM> Cosigner Signature (if applicable): CC: ~ Signed [facility] Work Phone: [phone]) 899-555906-29-2023 Progress note Author Lindsey Walsh [facility] May 28, 2023 10:20am Note Date/Time May 28, 2023 9:53 am [facility] [address] [place] [address] Progress Note - Wound Care 05/28/23 0952 MR#: [id number] Acct: [id number] Name: VICKIE GONZALEZ Rep #:[id number] 08 : 1955 67 From: Lindsey sykes DPM PCP: Dr. Nicol Ibanez MD Status:[facility] Location: History of Present Illness Date of [...] Recorded Date Recorded By Document 04/30/23 09:24 [id number] 04/30/23 09:40 Document 05/07/23 09:26 AK [id number] 05/07/23 09:28 AK Document 05/14/23 09:34 [id number] 05/14/23 09:46 KW Document 05/21/23 11:54 AK [id number] 05/21/23 11:56 AK 04/30/23 05/07/23 05/14/23 09:24 09:26 09:34 - Today's Visit Information Type of service Follow-up Visit Follow-up Visit Follow-up Visit (Physician/COOLER SERVICER (Physician/COOLER SERVICER (Physician/COOLER SERVICER ) ) ) Arrival Mode Ambulatory Ambulatory [...] Visit Information Type of service Follow-up Visit (Physician/COOLER SERVICER ) Arrival Mode Ambulatory Patient Identification Verified [...] Date Recorded By Document 04/30/23 09:24 JF [id number] 04/30/23 09:40 JF Document 05/07/23 09:26 AK [id number] 05/07/23 09:28 AK Document 05/14/23 09:34 KW [id number] 05/14/23 09:46 KW Document 05/21/23 11:54 AK [id number] 05/21/23 11:56 AK 04/30/23 05/07/23 05/14/23 09:24 [...] Medium (34-66%) Medium (34-66%) -Granulation Quality [place] -Slough/Fibrin Yes Yes -Necrosis Amt Small (1-33%) [...] Attached -Granulation Amt Medium (34-66%) -Granulation Quality [place] -Slough/Fibrin Yes -Necrosis Amt Medium (34-66%) -Necrotic [...] Date Recorded By Document 04/30/23 12:15 PL EC1170 04/30/23 12:17 PL Document 05/07/23 12:36 PL IZ6640 05/07/23 12:38 PL Document 05/14/23 12:06 PL CQ7610 05/14/23 12:08 PL Edit Result 05/14/23 12:06 PL (1) CT6767 05/15/23 12:47 PL Document 05/21/23 12:16 PL [id number] 05/21/23 12:17 PL (1) #1 L medial [...] Date 01/29/28 01/29/28 02/29/28 -Product Lot Number [id number] 002 -Percent Used 100 100 [...] Disc -Expiration Date 02/29/28 -Product Lot Number [id number] -Percent Used 100 -Bleeding Controlled with [...] Date Recorded By Document 04/30/23 09:59 AK [id number] 04/30/23 10:00 AK Undo 04/30/23 09:59 AK Adjusting Time [id number] 04/30/23 10:01 AK Document 05/07/23 10:09 AK [id number] 05/07/23 10:10 AK Document 05/14/23 12:06 PL [id number] 05/14/23 12:08 PL Document 05/21/23 10:33 KW [id number] 05/21/23 10:44 KW 05/07/23 05/14/23 05/21/23 10:09 [...] No signs of infection. Pain: May take jlgl-glt-yuosgwm Tylenol as needed for discomfort. Host factors: Basal cell carcinoma left lower extremity, edema. ? I answered all the patient's questions.? To return to the wound healing center in 1 week or call sooner if the patient has any questions or concerns. 05/28/23 1020 <Electronically signed by Lindsey Walsh DPM> Cosigner Signature (if applicable): CC: ~ Signed [facility] Work Phone: 1(334) 163-118006-22-2023 Progress note Author Lindsey Walsh [facility] May 21, 2023 12:31pm Note Date/Time May 21, 2023 9:57 am [facility] [place] [address] Progress Note - Wound Care 05/21/23 0957 MR#: [id number] Acct: [id number] Name: VICKIE GONZALEZ Rep #:[id number] 07 : [...] Date Recorded By Document 04/30/23 09:24 JANIE [id number] 04/30/23 09:40 JANIE Document 05/07/23 09:26 AK [id number] 05/07/23 09:28 AK Document 05/14/23 09:34 KW [id number] 05/14/23 09:46 KW 04/30/23 05/07/23 05/14/23 09:24 09:26 09:34 - Today's Visit Information Type of service Follow-up Visit Follow-up Visit Follow-up Visit (Physician/COOLER SERVICER (Physician/COOLER SERVICER (Physician/COOLER SERVICER ) ) ) Arrival Mode Ambulatory Ambulatory [...] Date Recorded By Document 04/30/23 09:24 JANIE [id number] 04/30/23 09:40 Document 05/07/23 09:26 AK [id number] 05/07/23 09:28 AK Document 05/14/23 09:34 KW [id number] 05/14/23 09:46 KW 04/30/23 05/07/23 05/14/23 09:24 [...] Medium (34-66%) Medium (34-66%) -Granulation Quality Red [place] -Slough/Fibrin Yes Yes -Necrosis Amt Small (1-33%) [...] Date Recorded By Document 04/30/23 12:15 PL [id number] 04/30/23 12:17 PL Document 05/07/23 12:36 PL [id number] 05/07/23 12:38 PL Document 05/14/23 12:06 PL [id number] 05/14/23 12:08 PL Edit Result 05/14/23 12:06 PL (1) [id number] 05/15/23 12:47 PL (1) #1 L medial [...] Date 01/29/28 01/29/28 02/29/28 -Product Lot Number [id number] 002 -Percent Used 100 100 [...] Date Recorded By Document 04/30/23 09:59 AK [id number] 04/30/23 10:00 AK Undo 04/30/23 09:59 AK Adjusting Time [id number] 04/30/23 10:01 AK Document 05/07/23 10:09 AK [id number] 05/07/23 10:10 AK Document 05/14/23 12:06 PL [id number] 05/14/23 12:08 PL 05/07/23 05/14/23 10:09 12:06 [...] No signs of infection. Pain: May take jpop-ghj-hyxxbyi Tylenol as needed for discomfort. Host factors: Basal cell carcinoma left lower extremity, edema. ? I answered all the patient's questions.? To return to the wound healing center in 1 week or call sooner if the patient has any questions or concerns. 05/21/23 1231 <Electronically signed by Lindsey Walsh DPM> Cosigner Signature (if applicable): CC: ~ Signed [facility] Work Phone: 1(215) 192-535106-15-2023 Progress note Author Lindsey Walsh [facility] May 14, 2023 10:27am Note Date/Time May 14, 2023 9:43 am [facility] [address] [place] [address] Progress Note - Wound Care 05/14/23 0942 MR#: [id number] Acct: [id number] Name: VICKIE GONZALEZ Rep #:[id number] 07 : 1955 67 From: Lindsey sykes DPM PCP: Dr. Nicol Ibanez MD [facility] Location: History of Present Illness Date of [...] Recorded Date Recorded By Document 04/30/23 09:24 [id number] 04/30/23 09:40 Document 05/07/23 09:26 DONNIE [id number] 05/07/23 09:28 AK 04/30/23 05/07/23 09:24 09:26 - Today's Visit Information Type of service Follow-up Visit Follow-up Visit (Physician/COOLER SERVICER (Physician/COOLER SERVICER ) ) Arrival Mode Ambulatory Ambulatory Patient [...] Recorded Date Recorded By Document 04/30/23 09:24 [id number] 04/30/23 09:40 Document 05/07/23 09:26 AK [id number] 05/07/23 09:28 AK 04/30/23 05/07/23 09:24 09:26 [...] Medium (34-66%) Medium (34-66%) -Granulation Quality Red [place] -Slough/Fibrin Yes Yes -Necrosis Amt Small (1-33%) [...] Date Recorded By Document 04/30/23 12:15 PL [id number] 04/30/23 12:17 PL Document 05/07/23 12:36 PL [id number] 05/07/23 12:38 PL 04/30/23 05/07/23 12:15 12:36 [...] -Expiration Date 01/29/28 01/29/28 -Product Lot Number [id number] -Percent Used 100 100 -Bleeding [...] Date Recorded By Document 04/30/23 09:59 AK [id number] 04/30/23 10:00 AK Undo 04/30/23 09:59 AK Adjusting Time [id number] 04/30/23 10:01 AK Document 05/07/23 10:09 AK [id number] 05/07/23 10:10 AK 05/07/23 10:09 Wound Care [...] No signs of infection. Pain: May take wgmz-kvc-eluhonk Tylenol as needed for discomfort. Host factors: Basal cell carcinoma left lower extremity, edema. ? I answered all the patient's questions.? To return to the wound healing center in 1 week or call sooner if the patient has any questions or concerns. 05/14/23 1027 <Electronically signed by Lindsey Walsh DPM> Cosigner Signature (if applicable): CC: ~ Signed [facility] Work Phone: [phone]) 447-540706-08-2023 Progress note Author Lindsey Walsh [facility] May 07, 2023 9:42am Note Date/Time May 07, 2023 9:14a m [facility] [address] [place] [address] Progress Note - Wound Care 05/07/23912 MR#: [id number] Acct: [id number] Name: PARAGVICKIE CLEMONS Rep #:[id number] 06 : [...] Date Recorded By Document 04/30/23 09:24 JANIE [id number] 04/30/23 09:40 JANIE 04/30/23 09:24 WC - Today's Visit Information Type of service Follow-up Visit (Physician/COOLER SERVICER ) Arrival Mode Ambulatory Patient Identification Verified [...] Recorded Date Recorded By Document 04/30/23 09:24 [id number] 04/30/23 09:40 04/30/23 09:24 Wound Center Nurse [...] Date Recorded By Document 04/30/23 12:15 PL [id number] 04/30/23 12:17 PL 04/30/23 12:15 Wound Center [...] Disc -Expiration Date 01/29/28 -Product Lot Number [id number] -Percent Used 100 -Bleeding Controlled with [...] Date Recorded By Document 04/30/23 09:59 AK [id number] 04/30/23 10:00 AK Undo 04/30/23 09:59 AK Adjusting Time [id number] 04/30/23 10:01 AK Assessment/Plan Assessment/Plan (1) Non-pressure [...] No signs of infection. Pain: May take csgf-sja-ohmmkpi Tylenol as needed for discomfort. Host factors: Basal cell carcinoma left lower extremity, edema. ? I answered all the patient's questions.? To return to the wound healing center in 1 week or call sooner if the patient has any questions or concerns. 05/07/2342 <Electronically signed by Lindsey Walsh DPM> Cosigner Signature (if applicable): CC: ~ Signed [facility] Work Phone: 1(808) 778-757706-01-2023 Progress note Author Lindsey Walsh [facility] April 30, 2023 12:52pm Note Date/Time April 30, 2023 9:50a m [facility] [address] [place] [address] Progress Note - Wound Care 04/30/23 0946 MR#: [id number] Acct: [id number] Name: VICKIE GONZALEZ Rep #:[id number] 08 : [...] Date Recorded By Document 04/30/23 09:24 JF [id number] 04/30/23 09:40 JANIE 04/30/23 09:24 WC - Today's Visit Information Type of service Follow-up Visit (Physician/COOLER SERVICER ) Arrival Mode Ambulatory Patient Identification Verified [...] Date Recorded By Document 04/30/23 09:24 JANIE [id number] 04/30/23 09:40 JF 04/30/23 09:24 Wound Center [...] No signs of infection. Pain: May take mlbw-pkv-hyfcmcm Tylenol as needed for discomfort. Host factors: Basal cell carcinoma left lower extremity, edema. ? I answered all the patient's questions.? To return to the wound healing center in 1 week or call sooner if the patient has any questions or concerns. 04/30/23 1252 <Electronically signed by Lindsey Walsh DPM> Cosigner Signature (if applicable): CC: ~ Signed [facility] Work Phone: 1(756) 545-409405-25-2023 Progress note Author Lindsey Walsh [facility] April 23, 2023 10:15am Note Date/Time April 23, 2023 9:34a m [facility] [address] [place] [address] Progress Note - Wound Care 04/23/23 0933 MR#: [id number] Acct: [id number] Name: VICKIE GONZALEZ Rep #:[id number] 05 : [...] Date Recorded By Document 04/16/23 08:58 DONNIE [id number] 04/16/23 09:14 WI Document 04/23/23 09:23 JANIE [id number] 04/23/23 09:27 JF 04/16/23 04/23/23 08:58 09:23 - Today's Visit Information Type of service Initial Visit Follow-up Visit (Physician/COOLER SERVICER ) Arrival Mode Ambulatory Ambulatory Patient Identification [...] Date Recorded By Document 04/16/23 08:58 DONNIE [id number] 04/16/23 09:14 WI Document 04/23/23 09:23 JANIE [id number] 04/23/23 09:27 JANIE 04/16/23 04/23/23 08:58 09:23 [...] Amt Small (1-33%) Small (1-33%) -Granulation Quality [place] Pale -Slough/Fibrin Yes Yes -Necrosis Amt Large [...] Date Recorded By Document 04/16/23 10:10 NAYELI [id number] 04/16/23 10:11 PL 04/16/23 10:10 Wound Center [...] Date Recorded By Document 04/16/23 10:02 DL [id number] 04/16/23 10:04 DL 04/16/23 10:02 Wound Care [...] No signs of infection. Pain: May take mgvz-esp-jgttuzv Tylenol as needed for discomfort. Host factors: Basal cell carcinoma left lower extremity, edema. I answered all the patient's questions. To return to the wound healing center in 1 week or call sooner if the patient has any questions or concerns. 04/23/23 1015 <Electronically signed by Lindsey Walsh DPM> Cosigner Signature (if applicable): CC: ~ Signed [facility] Work Phone: 1(337) 641-544605-18-2023 History and physical note Author Lindsey Walsh [facility] April 16, 2023 12:36pm Note Date/Time April 16, 2023 9:19a m [facility] [address] [place] [address] H&P Exam - Wound Care 04/16/23 0919 MR#: [id number] Acct: [id number] Name: VICKIE GONZALEZ Rep #:[id number] : [...] currently denies any N/V/F/chills. Denies further complaints. [facility] Medical History (Updated 04/16/23 @ 12:17 by [...] Date Recorded By Document 04/16/23 08:58 DONNIE [id number] 04/16/23 09:14 DONNIE 04/16/23 08:58 WC - [...] Date Recorded By Document 04/16/23 08:58 DONNIE [id number] 04/16/23 09:14 AK 04/16/23 08:58 Wound Center [...] Attached -Granulation Amt Small (1-33%) -Granulation Quality [place] -Slough/Fibrin Yes -Necrosis Amt Large (67-100%) -Necrotic [...] No signs of infection. Pain: May take qxwm-tsv-uflwvyh Tylenol as needed for discomfort. Host factors: Basal cell carcinoma left lower extremity, edema. I answered all the patient's questions. To return to the wound healing center in 1 week or call sooner if the patient has any questions or concerns. 04/16/23 5849 <Electronically signed by Lindsey Walsh DPM> Cosigner Signature (if applicable): CC: ~ Signed [facility] Work Phone: 1(496) 987-774302-22-2023 History of Present illness Narrative* Angelica Hsieh Tonia, COOLER SERVICER - 01/21/2023 2:30 PM EST [facility] 1 year TAVR follow up Patient Name: Vickie Gonzalez Admit Date: MR #: [id number] : 1955 Physicians: Nicol Ibanez MD (Family) [...] es, she will be discharged from the [facility]. 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 Hypertension, hypertensive today in the office but home readings are significantly lower ranging between 120-140 systolic. Have asked her to track BP three times a week over the next 2 weeks and notify [facility] if systolic greater than 150 consistently. [...] TR and RVSP 46mmHg. Last cardiac catheterization [id number] showed patent DYE and MISSY with 100% [...] Valve Replacement; Surgeon: Lindsey Plummer MD; [place] [facility]; Service: Cardiovascular CARDIAC CATHETERIZATION N/A 01/21/2022 Procedure: Angiogram - Aortic Root; Surgeon: Lindsey Plummer MD; [place]: [facility]; Service: Cardiovascular CARDIAC CATHETERIZATION N/A 01/21/2022 Procedure: Temporary Pacemaker; Surgeon: Lindsey Plummer MD; [place] [facility]; Service: Cardiovascular CARDIAC CATHETERIZATION N/A 01/21/2022 Procedure: Valvuloplasty - Aortic Valve; Surgeon: Lindsey Plummer MD; [place]: [facility]; Service: Cardiovascular HC LEFT HEART CATH N/A 01/15/2022 Procedure: LEFT HEART CATH; Surgeon: Silvio Mckeon MD; [place] [facility]; Service: Cardiovascular TAVR FEMORAL APPROACH N/A 01/21/2022 Procedure: TRANSCATHETER AORTIC VALVE REPLACEMENT FEMORAL APPROACH; Surgeon: Meir Arthur MD; [place] [facility]; Service: Cardiothoracic TOTAL KNEE ARTHROPLASTY [...] by mouth daily . Yes Historical Provider, MIOVYEJ-JUENFZAWB-JOJG ORAL Take 1 tablet by mouth daily [...] Component Value Date HGBA1C 6.1 (H) 01/09/2022 @MLNVCVT69@ Echocardiogram complete Result Date: 01/21/2023 Patient Info Name: VICKIE GONZALEZ Age: 67 years : 1955 Gender: Female Ht: 167 cm Wt: 105 kg BSA: 2.26 m2 HR: 1 bpm BP: 157 / 89 mmHg Technical Quality: Fair Exam Date: 01/21/2023 9:06 AM Patient Status: Outpatient Cloud Systems Administrator: Shirin Rabago, MILLER, RDCS (PE, AE) Exam Type: ECHOCARDIOGRAM COMPLETE Study Info Indications - Valve disease/murmur Attending Physician: ANGELICA RANDALL Referring Physician: [id number], TONIA; [id number] BMI: 37.73 kg/m2 Summary 1. Left ventricular [...] LVOT VTI/AV VTI Ratio 0.4 LVOT Stroke Jauvjl87 ml LVOT Stroke Index 23.93 ml/m2 Pulmonic Valve Name Value Normal PV Regurgitation Doppler OR Peak End Diastolic Velocity 128 cm/s Mitral [...] on 01/21/2023 10:15 AM documented in this [id number] Note* Addendum Note - Terrie Oh RN - 01/19/2023 6:49 AM ESTAddended by: TERRIE [place] on: 01/19/2023 06:49 AM Modules accepted: Orders [id number] Miscellaneous Notes* Addendum Note - Terrie Oh RN - 01/19/2023 6:49 AM ESTAddended by: TERRIE [place] on: 01/19/2023 06:49 AM Modules accepted: Orders documented in this [id number] History of Present illness Narrative* Angelica Randall CNP - 02/19/2022 11:24 AM EDT [facility] 30 DAY TAVR FOLLOW UP Patient Name: Vickie Gonzalez Admit Date: MR #: [id number] : 1955 Physicians: Nicol Ibanez MD (Family) [...] Valve Replacement; Surgeon: Lindsey Plummer MD; [place] [facility]; Service: Cardiovascular CARDIAC CATHETERIZATION N/A 01/21/2022 Procedure: Angiogram - Aortic Root; Surgeon: Lindsey Plummer MD; [place] [facility]; Service: Cardiovascular CARDIAC CATHETERIZATION N/A 01/21/2022 Procedure: Temporary Pacemaker; Surgeon: Lnidsey Plummer MD; [place] [facility]; Service: Cardiovascular CARDIAC CATHETERIZATION N/A 01/21/2022 Procedure: Valvuloplasty - Aortic Valve; Surgeon: Lindsey Plummer MD; [place] [facility]; Service: Cardiovascular HC LEFT HEART CATH N/A 01/15/2022 Procedure: LEFT HEART CATH; Surgeon: Silvio Mckeon MD; [place] [facility]; Service: Cardiovascular TAVR FEMORAL APPROACH N/A 01/21/2022 Procedure: TRANSCATHETER AORTIC VALVE REPLACEMENT FEMORAL APPROACH; Surgeon: Meir Arthur MD; [place] [facility]; Service: Cardiothoracic TOTAL KNEE ARTHROPLASTY [...] by mouth daily . Yes Historical Provider, BWJXMQX-TJKTCCFYG-YLXH ORAL Take 1 tablet by mouth daily [...] Component Value Date HGBA1C 6.1 (H) 01/09/2022 @BJTWAYN96@ ECG 12 Lead Result Date: 01/22/2022 Sinus [...] Date: 01/21/2022 12:12 PM Patient Status: Outpatient Cloud Systems Administrator: Jolanta Klein RDCS, ЮЛИЯ Exam Type: ECHOCARDIOGRAM LIMITED WITH CONTRAST Study Info Indications - INTRAOP TAVR Attending Physician: LINDSEY PLUMMER Referring Physician: [id number] Chase; [id number] BMI: 36.32 kg/m2 Summary 1. Limited two-dimensional, [...] Date: 01/21/2022 1:41 PM Patient Status: Outpatient Md Psychiatry:Muriel Medina RVT, RDMS Referring Physician: TONIA Jimenez; Attending Physician: LINDSEY PLUMMER Indications Z98.890 - Other specified postprocedural states - left femoral artery pseudoaneurysm, please perform compression therapy if able Procedure Description 42278 Duplex scan of lower extremity arteries or [...] Date: 01/22/2022 8:51 AM Patient Status: Inpatient Cloud Systems Administrator: Geraldo Carlos RDCS, ЮЛИЯ Exam Type: ECHOCARDIOGRAM COMPLETE Study Info Indications - Other Attending Physician: LINDSEY PLUMMER Referring Physician: TONIA Jimenez; [id number] BMI: 37.28 kg/m2 Summary 1. Leftventricular systolic [...] Name Value Normal MV Doppler MV Decel Placer 386 cm/s2 MV PHT 77 ms MV [...] on 01/22/2022 05:15 PM documented in this [id number] Note* Addendum Note - Terrie Oh RN - 02/13/2022 7:54 AM EDTAddended by: TERRIE [place] on: 02/13/2022 07:54 AM Modules accepted: Orders [id number] Miscellaneous Notes* Addendum Note - Terrie Oh RN - 02/13/2022 7:54 AM EDTAddended by: TERRIE [place] on: 02/13/2022 07:54 AM Modules accepted: Orders documented in this [id number] History of Present illness Narrative* Angelica Randall CNP - 02/03/2022 10:00 AM EST Telephone Visit Via Phone Call [facility] [address] [place] [phone] Telephone Visit [facility] 02/03/2022 Angelica Randall CNP Provider Location: office Patient Location Inside Outside Sales Representative: None Patient Location: Patient's Home Patient: Vickie [...] there are inherent diagnostic limitations compared to dxjg-zo-prap evaluations. We elected toproceed with the telephone [...] Take 1 tablet by mouth daily . WNQNEDV-NTCXMROEP-WGUD ORAL Take 1 tablet by mouth daily [...] symptoms. She will follow up with the [facility] again at4 weeks post TAVR with TTE, labwork and ECG. I have spent 16 minutes with the patient reviewing the HPI and Plan of Care. documented in this [id number] Hospital course Narrative* Angelica Randall CNP - 01/22/2022 10:54 AM EST DISCHARGE SUMMARY Patient: Vickie Gonzalez Date of : 1955 Site: [facility] Family Provider: Nicol Ibanez MD Admit Date: [...] Take 1 tablet by mouth daily . JRVXWQM-XOIGNNCIQ-ZQNL ORAL Take 1 tablet by mouth daily [...] Provider: Nicol Ibanez MD, Address: [address] / [place] [address] Follow Up: Phase 2 Cardiac Rehabilitation[facility] Please call ext. [phone] to schedule. Call in 2 week(s) Nicol Ibanez MD [address] [place] [address] Follow up Please call to schedule follow up appt for 8 weeks from discharge Angelica Randall CNP [address] [address] Follow up Office has scheduled appts at 2 weeks and 4 weeks from discharge Blaine Silveira MD [address] [phone] Follow up Please call to schedule follow up appt with Dr. Silveira Additional Information: Patient instructions, including activity, were given to the patient/family at discharge. Please seethe After Visit Summary in the electronic medical record for details. Time spent on discharge: > 30 minutes Completed by: Angelica Randall CNP on 01/22/22, 10:54 AM documented in this [id number] Consult note* Marsha Torres RN - 01/22/2022 8:58 AM EST AVS reviewed with patient/family. Discussed importance of medications, follow up appointments, and Cardiac Rehab with patient/family.Discussed with patient that their physician has referred him/her to our outpatient Cardiac Rehabilitation program. A Cardiac Rehabilitation nurse will contact patientor patient may call [phone] for additional information. [facility] Card[facility] Rehabilitation brochure pro vided to patient/family.The Cardiac Rehabilitation Program will be provided the patient's referral information and pertinent patient details and history. Patient chosen location is . [id number] Consult note* Marsha Torres RN - 01/22/2022 8:58 AM EST AVS reviewed with patient/family. Discussed importance of medications, follow up appointments, and Cardiac Rehab with patient/family.Discussed with patient that their physician has referred him/her to our outpatient Cardiac Rehabilitation program. A Cardiac Rehabilitation nurse will contact patientor patient may call [phone] for additional information. [facility] Cardiac Rehabilitation brochure pro vided to patient/family.The Cardiac Rehabilitation Program will be provided the patient's referral information and pertinent patient details and history. Patient chosen location is . documented in this [id number] Evaluation + Plan note* Assessment & Plan Note - Angelica Randall CNP - 01/22/2022 8:12 AM EST Associated Problem(s): Severe aortic stenosis S/p TAVR with 34mm Evolut Pro Plus via RFA [id number] Miscellaneous Notes* Assessment & Plan Note - [...] (66 y.o.) Date of Service: 01/21/2022 CSN: [id number] Procedure(s): Transcatheter Aortic Valve Replacement TRANSCATHETER AORTIC VALVE REPLACEMENT FEMORAL APPROACH Pre-Operative Diagnoses: * severe aortic stenosis Post-Operative Diagnoses: * Same as Pre-Op Diagnosis Surgeon(s) and Role: Panel 1: * Lindsey Plummer MD - Primary * Stanley Grant MD Panel 2: * Meir Arthur MD - Primary * Robert Pugh MD Anesthesiologist: Chapito Mohan MD Student Nurse Bindery Operator: Deep Sawant Buffing Wheel Inspector: Kishan Rascon RN; Alena Barker, TECHNOLOGIST; Gina Ann RN; Judd Hoover RN Roll Hauler: Zulma Bowen Scrub Person: ST Raven; Danette [...] Implant Name Type Inv. Item Serial No. Painter And Decorator Apprentice Lot No. LRB No. Used Action CLOSURE PERCLOSE PROSTYLE - [id number] Closure Device CLOSURE PERCLOSE PROSTYLE GARAY VAS N/A 2 Implanted VALVE 34MM EVOLUT PRO AORTIC - [id number] Percutaneous Valve VALVE 34MM EVOLUT PRO AORTIC [id number] [employer] N/A 1 Implanted Drain(s): * No LDAs found * Wound(s): * No LDAs found * Robert Pugh MD 01/21/2022 12:24 PM * Op Note - Robert Pugh MD - 01/21/2022 7:22 AM EST VCIKIE GONZALEZ [id number] 1955 DATE 01/21/2022 OPERATIVE REPORT SURGEON ROBERT [...] satisfactory condition. MD Killian VILLATORO 01/21/2022 12:30 [id number] T 01/21/2022 12:47 WJF/MODL documented in this [id number] History of Present illness Narrative* Angelica Randall CNP - 01/22/2022 8:04 AM EST Patient Name: Vickie Gonzalez MR #: [id number] POD # 1 Subjective: No complaints Objective: [...] discuss with SH team documented in this [id number] Note* Quick Note - Gaby Evans RN - 01/22/2022 4:58 AM EST .. Patient oriented to room and call system: yes Goal and Plan of Care written on whiteboard: yes Dual RN skin assessment completed with: Kaley Barcenas How will patient get home at discharge: Family will take pt home [id number] Note* Brief Op Note - Robert Pugh MD - 01/21/2022 12:24 PM EST Brief Post Operative Note Patient Name: Vickie Gonzalez : 1955 (66 y.o.) Date of Service: 01/21/2022 CSN: [id number] Procedure(s): Transcatheter Aortic Valve Replacement TRANSCATHETER AORTIC VALVE REPLACEMENT FEMORAL APPROACH Pre-Operative Diagnoses: * severe aortic stenosis Post-Operative Diagnoses: * Same as Pre-Op Diagnosis Surgeon(s) and Role: Panel 1: * Lindsey Plummer MD - Primary * Stanley Grant MD Panel 2: * Meir Arthur MD - Primary * Robert Pugh MD Anesthesiologist: Chapito Mohan MD Student Nurse Bindery Operator: Deep aSwant Buffing Wheel Inspector: Kishan Rascon RN; Alena Barker, TECHNOLOGIST; Gina Ann, JERRY; Judd Hoover RN Roll Hauler: Zulma Bowen Scrub Person: ST Raven; Danette [...] Implant Name Type Inv. Item Serial No. Painter And Decorator Apprentice Lot No. LRB No. Used Action CLOSURE PERCLOSE PROSTYLE - [id number] Closure Device CLOSURE PERCLOSE PROSTYLE GARAY VAS N/A 2 Implanted VALVE 34MM EVOLUT PRO AORTIC - [id number] Percutaneous Valve VALVE 34MM EVOLUT PRO AORTIC [id number] [employer] N/A 1 Implanted Drain(s): * No LDAs found * Wound(s): * No LDAs found * Robert Pugh MD 01/21/2022 12:24 PM [facility] Work Phone: 1(705) 128-618302-22-2022 Attending History and physical note* Angelica Randall CNP - 01/21/2022 10:05 AM EST INTERVAL HISTORY AND PHYSICAL Patient Name: Vickie Gonzalez Admit Date: 2220101 MR #: [id number] : 1955 The H&P has been reviewed [...] Name: Vickie Gonzalez Admit Date: MR #: [id number] : 1955 Physicians: Nicol Ibanez MD (Family) [...] tablet by mouth daily . Historical Provider, HQOZBFI-LVBCGGMOY-RCSD ORAL Take 1 tablet by mouth daily [...] Wt 106.3 kg (234 lb 5.6 oz) FtO602% BMI 37.82 kg/m General: Alert, cooperative, no [...] Component Value Date HGBA1C 6.1 (H) 01/09/2022 @DETKLLV83@ CT TAVR Chest Abdomen Pelvis without hydration [...] acute process in the abdomen or pelvis. [place] ([employer])/tde Workstation ID: [id number] Carotid Duplex Result Date: 01/09/2022 Patient Info Name: VICKIE GONZALEZ Age: 66 years : 1955 Gender: Female Exam Date: 01/09/2022 11:00 AM Patient Status: Outpatient Md Psychiatry: Corina BOWDEN RVT^^^^ Referring Physician: ANGELICA RANDALL ; Attending Physician: ANGELICA RANDALL Indications I35.0 - Aortic valve stenosis, severe Z01.810 - Pre-operative cardiovascular examination R09.89 - Other specified symptoms and signs involving the circulatory and respiratory systems - Preop TAVR Procedure Description 20500 Duplex examination using B-mode, color and spectral [...] (valve) insufficiency Referring Physician: BLAINE SILVEIRA ; [id number] BMI:36.64 kg/m2 Summary 1. Left ventricular systolic [...] mmHg MV VTI 28 cm MV Decel Placer 718 cm/s2 MV PHT 48 ms MVArea [...] cm/s AR VTI 179 cm AR Decel Placer 490 cm/s2 AR PHT 283 ms AR [...] ml/m2 16-34 RA Dimensions RA Systolic Major Elmo Length (4C) 7.17 cm <=5.30 RAArea (4C) 28.7 cm2 <=18.0 RA Area (4C) Index 13 cm2/m2 RA ESV (4C MOD) 90 ml 15-27 RA ESV Index (4C MOD) 40 ml/m2 <=27 Report Signatures Finalized by Diego Fox MD, [facility] on 12/30/2021 05:14 PM XR Chest AP/PA [...] stable. Stable examination. Stable cardiomegaly. Workstation ID: [id number] History and physical note* Angelica Randall CNP - 01/21/2022 10:05 AM EST INTERVAL HISTORY AND PHYSICAL Patient Name: Vickie Gonzalez Admit Date: 2220101 MR #: [id number] : 1955 The H&P has been reviewed [...] Name: Vickie Gonzalez Admit Date: MR #: [id number] : 1955 Physicians: Nicol Ibanez MD (Family) [...] tablet by mouth daily . Historical Provider, LNAUAWE-EFGJCRGXD-NWVH ORAL Take 1 tablet by mouth daily [...] Wt 106.3 kg (234 lb 5.6 oz) AyT338% BMI 37.82 kg/m General: Alert, cooperative, no [...] Component Value Date HGBA1C 6.1 (H) 01/09/2022 @PDUWZLJ21@ CT TAVR Chest Abdomen Pelvis without hydration [...] the abdomen or pelvis. VK/tde Workstation ID: [id number] Carotid Duplex Result Date: 01/09/2022 Patient Info Name: VICKIE GONZALEZ Age: 66 years : 1955 Gender: Female Exam Date: 01/09/2022 11:00 AM Patient Status: Outpatient Md Psychiatry: Corina BOWDEN RVT^^^^ Referring Physician: ANGELICA RANDALL ; Attending Physician: ANGELICA RANDALL Indications I35.0 - Aortic valve stenosis, severe Z01.810 - Pre-operative cardiovascular examination R09.89 - Other specified symptoms and signs involving the circulatory and respiratory systems - Preop TAVR Procedure Description 67584 Duplex examination using B-mode, color and spectral [...] (valve) insufficiency Referring Physician: BLAINE SILVEIRA ; [id number] BMI:36.64 kg/m2 Summary 1. Left ventricular systolic [...] mmHg MV VTI 28 cm MV Decel Placer 718 cm/s2 MV PHT 48 ms MVArea [...] cm/s AR VTI 179 cm AR Decel Placer 490 cm/s2 AR PHT 283 ms AR [...] ml/m2 16-34 RA Dimensions RA Systolic Major Elmo Length (4C) 7.17 cm <=5.30 RAArea (4C) [...] stable. Stable examination. Stable cardiomegaly. Workstation ID: [id number] documented in this [id number] Note* Op Note - Robert Pugh MD - 01/21/2022 7:22 AM EST VICKIE GONZALEZ [facility] [id number] 1955 DATE 01/21/2022 OPERATIVE REPORT SURGEON ROBERT [...] condition. ROBERT PUGH MD D 01/21/2022 12:30 [id number] T 01/21/2022 12:47 WJF/MODL [id number] Nurse Surgical operation note* Luly Arceo RN - 01/17/2022 12:24 PM EST [facility] Surgical Department Patient Instructions for [facility]: Prior to surgery: Please bathe the night [...] if desired. When you arrive at the [facility] on the day of your surgery, please note that business operations manager parking is free. Pull up to the [...] to view our online educational program in [employer]? It is very helpful to watch this as it can help you understand your surgery preparation process here at [facility]. It will provide you with additional important [...] contact surgeon's office with any additional questions. [id number] Nurse Note* Luly Arceo RN - 01/17/2022 12:24 PM EST [facility] Surgical Department Patient Instructions for [facility]: Prior to surgery: Please bathe the night [...] if desired. When you arrive at the [facility] on the day of your surgery, please note that business operations manager parking is free. Pull up to the [...] to view our online educational program in [employer]? It is very helpful to watch this as it can help you understand your surgery preparation process here at [facility]. It will provide you with additional important [...] with any additional questions. documented in this [id number] Miscellaneous Notes* Assessment & Plan Note - Lindsey Plummer MD - 01/09/2022 8:06 PM EST Associated Problem(s): Aortic valve stenosis, severe 1. Severe aortic stenosis moderate aortic regurgitation 2. CAD status post CABG DEY LAD MISSY RCA with left main disease [...] Lindsey Plummer MD, MSc, GILBERTO, FACC, FSCAI. [facility] documented in this [id number] History of Present illness Narrative* Lindsey Plummer MD - 01/09/2022 8:05 PM EST [facility] Consult Heart & Vascular [facility] 01/09/2022 Lindsey Plummer MD [facility] [address] [id number] Patient: Vickie Gonzalez Date of : 1955 [...] Lindsey Plummer MD, MSc, GILBERTO, FACC, FSCAI. [facility] Follow-up: No follow-ups [...] Final Result by Muriel Guerra RN (01/09/2022 3569) Echocardiogram complete Final Result by Diego Fox MD (12/30/2021 1692) [facility] (Bench Worker Helper read) (Results Pending) HOME Medications: Patient's Medications [...] Take 1 tablet by mouth daily . TYLTDND-KIIFLCNCK-XONP ORAL Take 1 tablet by mouth daily [...] LDLCALC, LDLDIRECT, TRIG, HDL documented in this [id number] History of Present illness Narrative* Meir Arthur MD - 01/09/2022 1:07 PM EST [facility] TAVR CONSULTATION Patient Name: Vickie Gonzalez Admit Date: MR #: [id number] : 1955 Physicians: Nicol Ibanez MD (Family) [...] tablet by mouth daily . Historical Provider, BYHYJZH-ZMTFMAPXK-XBJI ORAL Take 1 tablet by mouth daily [...] Wt 106.3 kg (234 lb 5.6 oz) EwM435% BMI 37.82 kg/m General: Alert, cooperative, no [...] Component Value Date HGBA1C 6.1 (H) 01/09/2022 @DNFRJFV49@ CT TAVR Chest Abdomen Pelvis without hydration [...] acute process in the abdomen or pelvis. [employer] ([employer])/tde Workstation ID: [id number] Carotid Duplex Result Date: 01/09/2022 Patient Info Name: VICKIE GONZALEZ Age: 66 years : 1955 Gender: Female Exam Date: 01/09/2022 11:00 AM Patient Status: Outpatient Md Psychiatry: Corina BOWDEN RVT^^^^ Referring Physician: ANGELICA RANDALL ; Attending Physician: ANGELICA RANDALL Indications I35.0 - Aortic valve stenosis, severe Z01.810 - Pre-operative cardiovascular examination R09.89 - Other specified symptoms and signs involving the circulatory and respiratory systems - Preop TAVR Procedure Description 04094 Duplex examination using B-mode, color and spectral [...] (valve) insufficiency Referring Physician: BLAINE SILVEIRA ; [id number] BMI:36.64 kg/m2 Summary 1. Left ventricular systolic [...] mmHg MV VTI 28 cm MV Decel Placer 718 cm/s2 MV PHT 48 ms MVArea [...] cm/s AR VTI 179 cm AR Decel Placer 490 cm/s2 AR PHT 283 ms AR [...] ml/m2 16-34 RA Dimensions RA Systolic Major Elmo Length (4C) 7.17 cm <=5.30 RAArea (4C) [...] stable. Stable examination. Stable cardiomegaly. Workstation ID: [id number] * Angelica Randall CNP - 01/09/2022 12:44 PM EST [facility] TAVR CONSULTATION Patient Name: Vickie Gonzalez Admit Date: MR #: [id number] : 1955 Physicians: Nicol Ibanez MD (Family) [...] tablet by mouth daily . Historical Provider, [id number] ORAL Take 1 tablet by mouth daily [...] Wt 106.3 kg (234 lb 5.6 oz) [id number]% BMI 37.82 kg/m General: Alert, cooperative, no [...] Component Value Date HGBA1C 6.1 (H) 01/09/2022 @CSTRPDI98@ CT TAVR Chest Abdomen Pelvis without hydration [...] acute process in the abdomen or pelvis. [place] ([employer])/tde Workstation ID: [id number] Carotid Duplex Result Date: 01/09/2022 Patient Info Name: VICKIE GONZALEZ Age: 66 years : 1955 Gender: Female Exam Date: 01/09/2022 11:00 AM Patient Status: Outpatient Md Psychiatry: Corina BOWDEN RVT^^^^ Referring Physician: ANGELICA RANDALL ; Attending Physician: ANGELICA RANDALL Indications I35.0 - Aortic valve stenosis, severe Z01.810 - Pre-operative cardiovascular examination R09.89 - Other specified symptoms and signs involving the circulatory and respiratory systems - Preop TAVR Procedure Description [id number] Duplex examination using B-mode, color and spectral [...] (valve) insufficiency Referring Physician: BLAINE SILVEIRA ; [id number] BMI:36.64 kg/m2 Summary 1. Left ventricular systolic [...] mmHg MV VTI 28 cm MV Decel Placer 718 cm/s2 MV PHT 48 ms MVArea [...] cm/s AR VTI 179 cm AR Decel Placer 490 cm/s2 AR PHT 283 ms AR [...] ml/m2 16-34 RA Dimensions RA Systolic Major Elmo Length (4C) 7.17 cm <=5.30 RAArea (4C) 28.7 cm2 <=18.0 RA Area (4C) Index 13 cm2/m2 RA ESV (4C MOD) 90 ml 15-27 RA ESV Index (4C MOD) 40 ml/m2 <=27 Report Signatures Finalized by Diego Fox MD, [facility] on 12/30/2021 05:14 PM XR Chest AP/PA [...] stable. Stable examination. Stable cardiomegaly. Workstation ID: [id number] documented in this [id number] Miscellaneous Notes* Assessment & Plan Note - Blaine Silveira MD - 06/10/2021 11:40 AM EDT Associated Problem(s): HLD (hyperlipidemia) Reviewed ldl and hdl labs(80,69) and would continue pravastatin * Assessment & Plan Note - Blaine Silveira MD - 06/10/2021 11:37 AM EDT Associated Problem(s): Elevated sed rate Has some finger arthritis and also could be fibrosiing mediastinitis [employer] in [place] and was on plaquenil a while, but stopped * Assessment & Plan Note - Blaine Silveira MD - 06/10/2021 11:29 AM EDT Associated Problem(s): Aortic insufficiency symptoms could also be Aortic Stenosis/AI will recheck echo * Assessment & Plan Note - Blaine Silveira MD - 06/10/2021 11:24 AM EDT Associated Problem(s): Coronary artery disease involving [place] coronary artery of [place] heart without angina pectoris Has had 2 spells of chest / jaw discomfort and shortness of breath, relieved with rest Will get a stress, she will also check and walk and if gets predictable may need a cath continue asa/metoprolol and will give sl ntg documented in this [id number] History of Present illness Narrative* Blaine Silveira MD - 06/10/2021 11:34 AM EDT Patient Name: Vickie Gonzalez MR #: [id number] Interventional Cardiology Blaine Silveira MD, [facility] 06/10/21 Dear Nicol Ibanez MD, Vickie Gonzalez was seen in follow up for : Problem Coronary Artery Disease Involving [place] Coronary Artery of [place] Heart Without Angina Pectoris CABG 2000 Cath 2010 all grafts open Aortic Insufficiency Moderate to Severe Asx AI-- same 12/2017 only mild-moderate Elevated Sed Rate Hld (Hyperlipidemia) Assessment and Plan Coronary artery disease involving [place] coronary artery of [place] heart without angina pectoris Has had 2 [...] and also could be fibrosiing mediastinitis [employer] in [place] and was on plaquenil a while, but [...] Take 1 tablet by mouth daily . [id number] ORAL Take 1 tablet by mouth daily [...] patient is not nervous/anxious. documented in this [id number] Instructions* Patient Instructions* Zoila Cueto MA - 06/10/2021 11:15 AM EDT How to contact your Care Team: Provider: Dr. Silveira Nurse: Iliana Madsen RN In case of an emergency please call 911. REFILLS: When in need for refills please call your care team or the office at [phone]. Please include medication name, pharmacy name, and specify 30-day or 90-day supply. Please check with your pharmacy within 24 hours of request for your refill. You must follow up as directed to continue current refills. Thank you! [facility]* Diagnosis Coronary artery disease involving [place] coronary artery of [place] heart without angina pectoris- Primary [facility] Coronary artery disease involving [place] coronary artery of [place] heart without angina pectoris Nonrheumatic aortic valve insufficiency Elevated sed rate Elevated sedimentation rate Mixed hyperlipidemia [facility] Diagnosis Nonrheumatic aortic valve insufficiency- Primary [facility] Diagnosis Nonrheumatic aortic valve insufficiency- Primary [facility] Diagnosis Aortic valve stenosis, severe- Primary Aortic valve disorders Pre-operative cardiovascular examination Other specified symptoms and signs involving the circulatory and respiratory systems [facility] Diagnosis Aortic valve stenosis, severe- Primary Aortic valve disorders Pre-operative cardiovascular examination Other abnormal findings in urine Abnormal coagulation profile Abnormal coagulation profile Dyspnea, unspecified type Abnormal finding of blood chemistry, unspecified [facility] Diagnosis Encounter for preprocedure screening laboratory testing for COVID-19- Primary [facility] Diagnosis Encounter for preoperative screening laboratory testing for COVID-19 virus- Primary [facility] Diagnosis Encounter for preoperative screening laboratory testing for COVID-19 virus- Primary [facility] Diagnosis Severe aortic insufficiency- Primary Aortic valve stenosis, severe Aortic valve disorders Pre-operative cardiovascular examination [facility] Diagnosis Aortic valve stenosis, severe Aortic valve disorders Pre-operative cardiovascular examination [facility] Diagnosis Aortic valve stenosis, severe- Primary Aortic valve disorders Severe aortic insufficiency Aortic valve stenosis, severe Aortic valve disorders Severe aortic insufficiency Aortic valve stenosis, severe Aortic valve disorders Severe aortic insufficiency [facility] Diagnosis Aortic valve stenosis, severe Aortic valve disorders Severe aortic insufficiency Encounter for preprocedure screening laboratory testing for COVID-19- Primary Aortic valve stenosis, severe Aortic valve disorders Severe aortic insufficiency [facility] Diagnosis S/P TAVR (transcatheter aortic valve replacement)- Primary [facility] Diagnosis Severe aortic stenosis- Primary Aortic valve disorders S/P TAVR (transcatheter aortic valve replacement) [facility] Diagnosis S/P TAVR (transcatheter aortic valve replacement)- Primary [facility] Diagnosis S/P TAVR (transcatheter aortic valve replacement)- Primary Shortness of breath Shortness of breath [facility] Diagnosis S/P TAVR (transcatheter aortic valve replacement)- Primary [facility] Diagnosis S/P TAVR (transcatheter aortic valve replacement)- Primary Hypertension, unspecified type [facility] Diagnosis Onset Date Resolution Status Basal cell carcinoma (BCC) of left lower extremity acute [id number] acute BMI 40.0-44.9, adult chronic HTN (hypertension) chronic [facility] Work Phone: Evaluation note* Diagnosis Onset Date Resolution Status Basal cell carcinoma (BCC) of left lower extremity acute [id number] acute BMI 40.0-44.9, adult chronic HTN (hypertension) chronic Basal cell carcinoma (BCC) of left lower extremity acute [id number] acute BMI 40.0-44.9, adult chronic HTN (hypertension) chronic 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 [facility] Work Phone: Evaluation note* Diagnosis Onset Date Resolution Status Basal cell carcinoma (BCC) of left lower extremity acute [id number] acute BMI 40.0-44.9, adult chronic HTN (hypertension) chronic Basal cell carcinoma (BCC) of left lower extremity acute [id number] acute BMI 40.0-44.9, adult chronic HTN (hypertension) chronic 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 Basal cell carcinoma (BCC) of left lower extremity acute [id number] acute BMI 40.0-44.9, adult chronic HTN (hypertension) chronic 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 [facility] Work Phone: Evaluation note* Diagnosis Onset Date Resolution Status Basal cell carcinoma (BCC) of left lower extremity acute [id number] acute BMI 40.0-44.9, adult chronic HTN (hypertension) chronic Basal cell carcinoma (BCC) of left lower extremity acute [id number] acute BMI 40.0-44.9, adult chronic HTN (hypertension) chronic 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 Basal cell carcinoma (BCC) of left lower extremity acute [id number] acute BMI 40.0-44.9, adult chronic HTN (hypertension) chronic 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 Basal cell carcinoma (BCC) of left lower extremity acute [id number] acute HTN (hypertension) chronic 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 [facility] Work Phone: Evaluation note* Diagnosis Osteoarthritis of right knee, unspecified osteoarthritis type- Primary Hypertension, unspecified type [facility] Diagnosis Osteoarthritis of right knee- Primary Osteoarthrosis, unspecified whether generalized or localized, lower leg Coronary artery disease involving [place] coronary artery of [place] heart without angina pectoris- Primary Osteoarthritis of right knee, unspecified osteoarthritis type Severe aortic insufficiency Osteoarthritis of right knee, unspecified osteoarthritis type [facility] assessment information [facility] Work Phone: Evaluation note* Diagnosis Osteoarthritis of right knee- Primary Osteoarthrosis, unspecified whether generalized or localized, lower leg MSSA (methicillin susceptible Staphylococcus aureus)- Primary Methicillin susceptible Staphylococcus aureus in conditions classified elsewhere and of unspecified site Osteoarthritis of right knee, unspecified osteoarthritis type [facility]* Diagnosis Osteoarthritis of right [...] right knee replacement [facility] Diagnosis Status post total right knee replacement- Primary [facility]* Diagnosis Status post total right knee replacement- Primary [facility]* Diagnosis Status post total right knee replacement- Primary [facility]* Diagnosis Status post total right knee replacement- Primary [facility] Diagnosis Status post total right knee replacement- Primary [facility]* Diagnosis Status post total right knee replacement- Primary [facility] Diagnosis Status post total right knee replacement- Primary [facility] Diagnosis Status post total right knee replacement- Primary [facility] Diagnosis Status post total right knee replacement- Primary [facility]* Diagnosis Status post total right knee replacement- Primary [facility]* Diagnosis Status post total right knee replacement- Primary [facility]* Diagnosis Status post total right knee replacement- Primary [facility]* Attachments The following attachments cannot be sent through Care Everywhere. * Transcatheter Aortic Valve Implantation (LIONEL): Post-op ([place] Island[place]) [facility] Additional Instructions Ice your left eye several times a day for the next few days, follow-up with your PCP and return for any worsening of your symptoms.[facility] Work Phone: Patient's home Plan of care note* Visit Details Visit [facility] Disc[facility] -[facility]idential Problems Problem Start Date Status Goals Interventions Wound Care and/or Skin Problems Disciplines: Residential 01/27/2024 Active 1 goal linked to scheduled/documented intervention 1 goal intervention scheduled/documented in this visit Assess and Instruct Home Visit Disciplines: Residential 01/27/2024 Active 1 goal linked to scheduled/documented intervention 4 goal interventions scheduled/documented in this visit Medication Management Disciplines: Residential 01/27/2024 Active 1 goal linked to scheduled/documented intervention 1 goal intervention scheduled/documented in this visit Pain Management Disciplines: Residential 01/27/2024 Active 1 goal linked to scheduled/documented [...] [facility] of Care Discipline -Residential Problems Problem Start Date Status Goals Interventions Wound Care and/or Skin Problems Disciplines: Residential 01/27/2024 Active 1 goal linked to scheduled/documented intervention 1 goal intervention scheduled/documented in this visit Assess and Instruct Home Visit Disciplines: Residential 01/27/2024 Active 1 goal linked to scheduled/documented intervention 4 goal interventions scheduled/documented in this visit Medication Management Disciplines: Residential 01/27/2024 Active 1 goal linked to scheduled/documented intervention 1 goal intervention scheduled/documented in this visit Pain Management Disciplines: Residential 01/27/2024 Active 1 goal linked to scheduled/documented [...] Management Goal:Pain Completed documented in this encounter [facility] Plan of care note* Visit [...] Care Plan Scheduled documented in this encounter [facility] Plan of care note* Visit Details Visit Type -VIDEO CONFERENCE SPECIALIST Routine Visi t Discipline -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 [...] also Clinician taught: patient Clinician instructed on: shrimp boat captain educated pt on importance of increased elevation frequency d/t considerable swelling this date which is hindering ROM. pt verbalized understanding, plan to elevate at least 4 times a day c foot above heart as instructed pt VIDEO CONFERENCE SPECIALIST this date. chair flex stretch and heel slides x10, ext prop 5'. QS, SAQ, SLR, LAQ x20 ea to improve mobility and strength. pt c/o significant tightness in knee during flex stretching and mod increased pain. shrimp boat captain educated pt on importance of pushing [...] flex during amb d/t tightness in knee. shrimp boat captain provided demo of good toe off and allowing knee to bend during toe off to improve mobility and flex rom. pt c mod improvement p shrimp boat captain demo. Therapist provided cueing for proper TA from seated position, including reaching back for chair and feeling chair c back of legs to avoid falls. Cueing also provided for slow, eccentric control c return to sitting position. pt sba for sit to supine ta this date. shrimp boat captain assisted pt c placement of pillows for cp and elevation p tx to allow for relaxed position to allow pt to remain elevated for 1 hour to decrease inflammation Patient/caregiver is able to teach back 90% of instruction. [facility] Visit Details Visit Type -VIDEO CONFERENCE SPECIALIST Routine Visi t Discipline -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 [...] in quad tendon insertion during flex stretching. shrimp boat captain provided mod assist c flex stretching to improve mobility. shrimp boat captain provided education on importance of flex [...] amb 175' today c fww and sba. shrimp boat captain provided demo and vc for increased [...] 95% of instruction. documented in this encounter [facility] Plan of care note* Visit Details Visit Type -SN HH Routine Vi sit Discipline -Residential Problems Problem Start Date Status Goals Interventions Wound Care and/or Skin Problems Disciplines: Residential 01/27/2024 Active 1 goal linked to scheduled/documented intervention 1 goal intervention scheduled/documented in this visit Assess and Instruct Home Visit Disciplines: Residential 01/27/2024 Active 1 goal linked to scheduled/documented intervention 4 goal interventions scheduled/documented in this visit Medication Management Disciplines: Residential 01/27/2024 Active 1 goal linked to scheduled/documented intervention 1 goal intervention scheduled/documented in this visit Pain Management Disciplines: Residential 01/27/2024 Active 1 goal linked to scheduled/documented [...] Management Goal:Pain Completed [facility]* Visit Details Visit Type -VIDEO CONFERENCE SPECIALIST Routine Visi t Discipline -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 [...] toe gait pattern c decresaed vc needed. shrimp boat captain instructed pt to continue c frequent [...] 95% of instruction. [facility]* Visit Details Visit Type -PETAL CUTTER Routine Discipline -Residential Problems Problem Start Date Status Goals Interventions Wound Care and/or Skin Problems Disciplines: Residential 01/27/2024 Active 1 goal linked to scheduled/documented intervention 1 goal intervention scheduled/documented in this visit Assess and Instruct Home Visit Disciplines: Residential 01/27/2024 Active 1 goal linked to scheduled/documented intervention 4 goal interventions scheduled/documented in this visit Medication Management Disciplines: Residential 01/27/2024 Active 1 goal linked to scheduled/documented intervention 1 goal intervention scheduled/documented in this visit Pain Management Disciplines: Residential 01/27/2024 Active 1 goal linked to scheduled/documented [...] Management Goal:Pain Completed [facility]* Visit Details Visit Type -VIDEO CONFERENCE SPECIALIST Routine Visi t Discipline -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 [...] progress. very tight, firm end feel c shrimp boat captain assisted heel slides this date Patient/caregiver is able to teach back 95% of instruction. Instruct Mobility Problem:Mobility Goal:Mobility Completed Patient reports: walking more but does report increased pain this date d/t decerase pain med freqency. Clinician taught: patient Clinician instructed on: shrimp boat captain educated pt on not weaning off [...] 95% of instruction. [facility]* Visit Details Visit Type -SN HH [facility] of Care Discipline -Residential Problems Problem Start Date Status Goals Interventions Wound Care and/or Skin Problems Disciplines: Residential 01/27/2024 Active 1 goal linked to scheduled/documented intervention 1 goal intervention scheduled/documented in this visit Assess and Instruct Home Visit Disciplines: Residential 01/27/2024 Active 1 goal linked to scheduled/documented intervention 4 goal interventions scheduled/documented in this visit Medication Management Disciplines: Residential 01/27/2024 Active 1 goal linked to scheduled/documented intervention 1 goal intervention scheduled/documented in this visit Pain Management Disciplines: Residential 01/27/2024 Active 1 goal linked to scheduled/documented [...] Management Goal:Pain Completed [facility]* Visit Details Visit Type -PETAL CUTTER Routine Discipline -Residential Problems Problem Start Date Status Goals Interventions Wound Care and/or Skin Problems Disciplines: Residential 01/27/2024 Active 1 goal linked to scheduled/documented intervention 1 goal intervention scheduled/documented in this visit Assess and Instruct Home Visit Disciplines: Residential 01/27/2024 Active 1 goal linked to scheduled/documented intervention 4 goal interventions scheduled/documented in this visit Medication Management Disciplines: Residential 01/27/2024 Active 1 goal linked to scheduled/documented intervention 1 goal intervention scheduled/documented in this visit Pain Management Disciplines: Residential 01/27/2024 Active 1 goal linked to scheduled/documented [...] Management Goal:Pain Completed [facility] Visit Details Visit Type -VIDEO CONFERENCE SPECIALIST Routine Visi t Discipline -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 [...] in quad tendon insertion during flex stretching. shrimp boat captain provided mod assist c flex stretching to improve mobility. shrimp boat captain provided education on importance of flex [...] amb 175' today c fww and sba. shrimp boat captain provided demo and vc for increased [...] 95% of instruction. [facility]* Visit Details Visit Type -VIDEO CONFERENCE SPECIALIST Routine Visi t Discipline -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 [...] toe gait pattern c decresaed vc needed. shrimp boat captain instructed pt to continue c frequent [...] 95% of instruction. [facility]* Visit Details Visit Type -VIDEO CONFERENCE SPECIALIST Routine Visi t Discipline -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 [...] also Clinician taught: patient Clinician instructed on: shrimp boat captain educated pt on importance of increased elevation frequency d/t considerable swelling this date which is hindering ROM. pt verbalized understanding, plan to elevate at least 4 times a day c foot above heart as instructed pt VIDEO CONFERENCE SPECIALIST this date. chair flex stretch and heel slides x10, ext prop 5'. QS, SAQ, SLR, LAQ x20 ea to improve mobility and strength. pt c/o significant tightness in knee during flex stretching and mod increased pain. shrimp boat captain educated pt on importance of pushing [...] flex during amb d/t tightness in knee. shrimp boat captain provided demo of good toe off and allowing knee to bend during toe off to improve mobility and flex rom. pt c mod improvement p shrimp boat captain demo. Therapist provided cueing for proper TA from seated position, including reaching back for chair and feeling chair c back of legs to avoid falls. Cueing also provided for slow, eccentric control c return to sitting position. pt sba for sit to supine ta this date. shrimp boat captain assisted pt c placement of pillows for cp and elevation p tx to allow for relaxed position to allow pt to remain elevated for 1 hour to decrease inflammation Patient/caregiver is able to teach back 90% of instruction. [facility] Visit Details Visit Type -VIDEO CONFERENCE SPECIALIST Routine Visi t Discipline -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 [...] RA for DC to outpt PT at [facility] Home Exercise Program Problem:Home Exercise Program Goal:Home [...] pt amb c sc and sba today. shrimp boat captain provided vc and demo for proper [...] 100% of instruction. [facility] Visit Details Visit Type - HH O[place]IS [place] t of Care Discipline -Residential Problems Problem Start Date Status Goals Interventions Wound Care and/or Skin Problems Disciplines: Residential 01/27/2024 Active 1 goal linked to scheduled/documented intervention 1 goal intervention scheduled/documented in this visit Assess and Instruct Home Visit Disciplines: Residential 01/27/2024 Active 1 goal linked to scheduled/documented intervention 4 goal interventions scheduled/documented in this visit Medication Management Disciplines: Residential 01/27/2024 Active 1 goal linked to scheduled/documented intervention 1 goal intervention scheduled/documented in this visit Pain Management Disciplines: Residential 01/27/2024 Active 1 goal linked to scheduled/documented [...] Type -SN HH Non-OASIS/ Discipline DC Discipline -Residential Problems Problem Start Date Status Goals Interventions Wound Care and/or Skin Problems Disciplines: Residential 01/27/2024 Resolved on 02/11/2024 1 goal linked to scheduled/documented intervention 1 goal intervention scheduled/documented in this visit Assess and Instruct Home Visit Disciplines: Residential 01/27/2024 Resolved on 02/11/2024 1 goal linked to scheduled/documented intervention 4 goal interventions scheduled/documented in this visit Medication Management Disciplines: Residential 01/27/2024 Resolved on 02/11/2024 1 goal linked to scheduled/documented intervention 1 goal intervention scheduled/documented in this visit Pain Management Disciplines: Residential 01/27/2024 Resolved on 02/11/2024 1 goal linked [...] Management Goal:Pain Scheduled [facility] Visit Details Visit Type -VIDEO CONFERENCE SPECIALIST Routine Visi t Discipline -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 [...] RA for DC to outpt PT at [facility] Home Exercise Program Problem:Home Exercise Program Goal:Home [...] pt amb c sc and sba today. shrimp boat captain provided vc and demo for proper [...] teach wound/skin/incision care as per discharge instructions Human Resources Executive Assistant Goals: Patient remains safe at home, Patient [...] questions or concerns. [facility] Actions Homebound [...] determined by P.T. [facility] Actions Homebound [...] determined by P.T. [facility] this [facility] Actions CP [...] determined by P.T. [facility] Actions [facility]. Reviewed care plan, medications, pain mgmt, ice and elevation, S&S to report, wound care and safety with ambulation. Patient/caregiver verbalized understanding and agreement. [facility] Actions CP assessment [...] Home: 2-story house [facility] Actions Homebound Status [...] determined by P.T. [facility]* Actions Homebound Status [...] determined by P.T. documented in this encounter [facility]* Actions Homebound Status [...] determined by P.T. [facility] N[facility]ative* Auth/Cert Specialty Diagnoses / Procedures Referred By Contac t Referred To Contact Diagnoses severe aortic stenosis Procedures OR TRANSCATHETER TRANSAPICAL REPLACEMT AORTIC VALVE Transcatheter Aortic Valve Replacement TRANSCATHETER AORTIC VALVE REPLACEMENT FEMORAL APPROACH Referral ID Status Reason Start Date Expiration Date Visits Re quested Visits Authorized [id number] 1 1 [facility] Assessments Diagnosis SOB (shortness of breath) Shortness of breath Diagnosis SOB (shortness of breath) Shortness of breath Coronary artery disease involving [place] coronary artery of [place] heart without angina pectoris Fibrosing mediastinitis Mediastinitis Nonrheumatic aortic valve insufficiency Diagnosis Nonrheumatic aortic valve insufficiency Summary Purpose Family History No Family History Records Found Relationship Condition Age at Onset Recorded Date/T ayleen mother Diabetes mellitus Unknown father Obstructive sleep apnea syndrome Unknown Advance Directives No Advanced Directives Records FoundDocuments on File Type Date Recorded Patient Credit Coordinator Expl anation Advance Directives and Living Will Documents on File Type Date Recorded Patient Credit Coordinator Expl anation Advance Directives and Livin g Will Advance Directives and Livin g Will 06/14/2019 12:00 AM Documents on File Type Date Recorded Patient Credit Coordinator Expl anation Advance Directives and Livin g Will Advance Directives and Livin g Will 06/14/2019 12:00 AM Documents on File Type Date Recorded Patient Credit Coordinator Expl anation Advance Directives and Livin g Will Advance Directives and Livin g Will 01/09/2022 7:51 AM Documents on File Type Date Recorded Patient Credit Coordinator Expl anation Advance Directives and Livin g [...] Documents on File Type Date Recorded Patient Credit Coordinator Expl anation Advance Directives and Livin g [...] No June 25, 2023 10:48am Power of Line Service Attendant No June 25 10:48am Advance Directive Response Recorded Date/ Time Living Will No June 25, 2023 9:48am Power of Line Service Attendant No June 25 9:48am Latest Code Status [...] Echocardiogram complete Blaine Silveira MD [address] [place] [address] Status Reason Specialty Diagnoses / Procedures Referre d By Contact Referred To Contact Closed Cardiology Diagnoses Nonrheumatic aortic valve insufficiency Procedures Echocardiogram complete Blaine Silveira MD [address] [place] [address] Status Reason Specialty Diagnoses / Procedures Referred By Contact Referred To Contact Authorized Cardiology Diagnoses Coronary artery disease involving [place] coronary artery of [place] heart without angina pectoris Procedures ECG 12 Lead Blaine Silveira MD [address] [place] [address] Status Reason Specialty Diagnoses / Procedures Referred By Contact Referred To Contact New Request Radiology Diagnoses Coronary artery disease involving [place] coronary artery of [place] heart without angina pectoris Procedures NM Myocardial [place]fusion [place] [address] [place] [address] Status Reason Specialty Diagnoses / Procedures Referred By Contact Referred To Contact New Request Cardiology Diagnoses Nonrheumatic aortic valve insufficiency Procedures [place] [address] [place] [address] Status Reason Specialty Diagnoses / Procedures Referred By Contact Referred To Contact Pending Review Cardiology Diagnoses Nonrheumatic aortic valve insufficiency Procedures [place] [address] [place] [address] Specialty Diagnoses / Procedures Referred By Contac t Referred To Contact Cardiology Diagnoses Aortic valve stenosis, severe Pre-operative cardiovascular examination Procedures ECG 12 Lead Dye, Angelica Hsieh CNP [address] [place] [address] Referral ID Status Reason Start Date Expiration Date V isits Requested Visits Authorized [id number] Authorized 12/31/2021 12/31/2022 1 1 Specialty Diagnoses / Procedures Referred By Contac t Referred To Contact Cardiology Diagnoses Aortic valve stenosis, severe Pre-operative cardiovascular examination Other specified symptoms and signs involving the circulatory and respiratory systems Procedures Carotid Duplex Dye, Angelica Hsieh COOLER SERVICER [address] [place] [address] Referral ID Status Reason Start Date Expiration Date V isits Requested Visits Authorized [id number] Authorized 12/31/2021 12/31/2022 1 1 Specialty Diagnoses / Procedures Referred By Contac t Referred To Contact Cardiology Diagnoses S/P TAVR (transcatheter aortic valve replacement) Procedures ECG 12 Lead ToniaAngelica Claudia, COOLER SERVICER [address] [facility] [address] [address] Referral ID Status Reason Start Date Expiration Date Visits Re quested Visits Authorized [id number] Closed 01/22/2022 01/22/2023 1 1 Specialty Diagnoses / Procedures Referred By Contac t Referred To Contact Cardiology Diagnoses S/P TAVR (transcatheter aortic valve replacement) Procedures Echocardiogram complete Angelica Randall, COOLER SERVICER [address] [facility] [address] [place] [phone] Referral ID Status Reason Start Date Expiration Date Visits Re quested Visits Authorized [id number] Closed 01/22/2022 01/22/2023 1 1 Specialty Diagnoses / Procedures Referred By Contac t Referred To Contact Cardiac Rehabilitation Diagnoses S/P TAVR (transcatheter aortic valve replacement) Angelica Randall, COOLER SERVICER [address] [facility] [address] [place] [phone] Referral ID Status Reason Start Date Expiration Date V isits Requested Visits Authorized [id number] Authorized 01/21/2022 01/21/2023 1 1 Referral ID Status Reason Start Date Expiration Date Visits Re quested Visits Authorized [id number] Closed 06/19/2022 06/19/2023 1 1 Referral ID Status Reason Start Date Expiration Date V isits Requested Visits Authorized [id number] Authorized 06/19/2022 06/19/2023 1 1 Specialty Diagnoses / Procedures Referred By Contac t Referred To Contact Cardiology Diagnoses Osteoarthritis of right knee, unspecified osteoarthritis type Jass Pepe MD [address] [place] [address] [facility] Gaby [address] [place], [place] [address] [place] [address] Referral ID Status Reason Start Date Expiration Date Visits Requested Visits Authorized [id number] Authorized Specialty Services Required/Pat ient's Best Interest 09/26/2024 1 1 Specialty Diagnoses / Procedures Referred By Yanet t Referred To Contact Radiology Diagnoses Osteoarthritis of right knee, unspecified osteoarthritis type Procedures CT Knee Right Without Contrast Jass Pepe MD [address] [place] [address] Referral ID Status Reason Start Date Expiration Date V isits Requested Visits Authorized [id number] New Request 09/27/2023 09/26/2024 1 1 Specialty Diagnoses / Procedures Referred By Yanet guerra Referred To Contact Rehabilitation Diagnoses Status post total right knee replacement Jass Pepe MD [address] [place] [address] [place] [phone] Referral ID Status Reason Start Date Expiration Date V isits Requested Visits Authorized [id number] Authorized 02/01/2024 01/31/2025 1 1 History of Present Illness * Blaine Silveira MD - 06/06/2019 2:56 PM EDT Patient Name: Vickie Gonzalez [facility] MR #: [id number] Interventional Cardiology Blaine Silveira MD, [facility] 06/06/19 Dear Nicol Ibanez MD, Vickie Gonzalez was seen in follow up for : Problem Coronary Artery Disease Involving [place] Coronary Artery of [place] Heart Without Angina Pectoris CABG 2001 Cath 2010 all grafts open Aortic Insufficiency Moderate to Severe Asx AI-- same 12/2017 Fibrosing Mediastinitis Dx at time of cabg Assessment and Plan Coronary artery disease involving [place] coronary artery of [place] heart without angina pectoris Rare angina Doing [...] puffs 2 (two) times a day . [id number] ORAL Take 1 tablet by mouth daily [...] cell carcinoma (BCC) of left lower extremity [id number] BMI 40.0-44.9, adult HTN (hypertension) Chief Complaint WOUND WOUND Reason for Visit Basal cell carcinoma (BCC) of left lower extremity [id number] BMI 40.0-44.9, adult HTN (hypertension) Basal cell carcinoma (BCC) of left lower extremity [id number] BMI 40.0-44.9, adult HTN (hypertension) Non-pressure chronic ulcer of left calf with fat layer exposed Chief Complaint WOUND WOUND WOUND LAC Reason for Visit Basal cell carcinoma (BCC) of left lower extremity [id number] BMI 40.0-44.9, adult HTN (hypertension) Basal cell carcinoma (BCC) of left lower extremity [id number] BMI 40.0-44.9, adult HTN (hypertension) Non-pressure chronic ulcer of left calf with fat layer exposed Basal cell carcinoma (BCC) of left lower extremity [id number] BMI 40.0-44.9, adult HTN (hypertension) Non-pressure chronic ulcer of left calf with fat layer exposed Chief Complaint WOUND WOUND WOUND LAC WOUND Reason for Visit Basal cell carcinoma (BCC) of left lower extremity [id number] BMI 40.0-44.9, adult HTN (hypertension) Basal cell carcinoma (BCC) of left lower extremity [id number] BMI 40.0-44.9, adult HTN (hypertension) Non-pressure chronic ulcer of left calf with fat layer exposed Basal cell carcinoma (BCC) of left lower extremity [id number] BMI 40.0-44.9, adult HTN (hypertension) Non-pressure chronic ulcer of left calf with fat layer exposed Basal cell carcinoma (BCC) of left lower extremity [id number] HTN (hypertension) Non-pressure chronic ulcer of left calf with fat layer exposed Chief Complaint E ORDERS Chief Complaint E ORDERS EORDER Additional Source Comments INFORMATION SOURCE (unrecogn ized section and content) DATE CREATED AUTHOR 05/24/2018 [facility] DATE CREATED AUTHOR AUTHOR'S ORGANIZ ATION 09/10/2022 [facility] DATE CREATED AUTHOR AUTHOR'S ORGANIZ ATION 01/25/2023 [facility] DATE CREATED AUTHOR AUTHOR'S ORGANIZ ATION 02/22/2023 [facility] DATE CREATED AUTHOR AUTHOR'S ORGANIZ ATION 11/15/2023 [facility] DATE CREATED AUTHOR AUTHOR'S ORGANIZ ATION 02/16/2024 [facility] DATE CREATED AUTHOR AUTHOR'S ORGANIZ ATION 03/15/[address] [facility] DATE CREATED AUTHOR AUTHOR'S ORGANIZ ATION 03/30/2024 [facility] DATE CREATED AUTHOR AUTHOR'S ORGANIZ ATION 01/14/2025 [facility] Reason for Visit (unrecogniz ed section and content) Reason Comments Annual Exam no complaints or con cerns for todays visit Status Reason Specialty Diagnoses / Procedures Referre d By Contact Referred To Contact Closed Cardiology Diagnoses Nonrheumatic aortic valve insufficiency Procedures Echocardiogram complete Blaine Silveira MD [address] [place] [address] Reason Comments Annual Exam Jaw Pain Shortness of Breath Reason Comments Initial Visit (Intake) TAVR Reason Comments Follow-up 2 Week TAVR Reason Comments Follow-up 1 Year TAVR Reason Comments Follow-up Specialty Diagnoses / Procedures Referred By [place]cadio[place] t Referred To Contact Cardiology Diagnoses Osteoarthritis of right knee, unspecified osteoarthritis type Jass Pepe MD [address] [place] [address] Blaine Silveira MD [address] [place] [address] Referral ID Status Reason Start Date Expiration Date V isits Requested Visits Authorized [id number] Closed Specialty Services Required/Leda ent's Best Interest 09/27/2023 09/26/2024 1 1 Reason Onset Date Comments Medication Refill 01/11/2024 Reason Comments Pre-op Exam Specialty Diagnoses / Procedures Referred By Contac t Referred To Contact Referral ID Status Reason Start Date Expiration Date Visits Re quested Visits Authorized [id number] 1 1 Reason Onset Date Comments Medication Refill 02/08/2024 Reason Comments Follow-up Suture / Staple Removal Reason Comments 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 Specialty Diagnoses / Procedures Referred By Contac t Referred To Contact Rehabilitation Diagnoses Status post total right knee replacement Jass Pepe MD [address] [place] [phone] [facility] [address] [place] [address] Referral ID Status Reason Start Date Expiration Date V isits Requested Visits Authorized [id number] Authorized 02/01/2024 01/31/2025 13 199 Specialty Diagnoses / Procedures Referred By Yanet guerra Referred To Contact Rehabilitation Diagnoses Status post total right knee replacement Jass Pepe MD [address] [place], [place] [phone] [facility] [address] [place] [address] Assessment & Plan Note - Blaine Silveira [...] issues Associated Problem(s): Coronary artery disease involving [place] coronary artery of [place] heart without angina pectoris Rare angina Doing well, Medications reviewed and will continue current meds Followup 1 year documented in this encounter Care Teams (unrecognized sec tion and content) Emergency Dept Tech Relationship Specialty Start Date End Date Nicol Ibanez MD [address] [place] [address] [place] [address] PCP - General 08/26/11 Jass Pepe MD [address] [place] [address] Consulting Physician Orthopedic Surgery 05/20/16 Emergency Dept Tech Relationship Specialty Start Date End Date Nicol Ibanez MD [address] [place] [address] [place] [address] PCP - General 08/26/11 Jass Pepe MD [address] [place] [address] Consulting Physician Orthopedic Surgery 05/20/16 Emergency Dept Tech Relationship Specialty Start Date End Date Nicol Ibanez MD [address] [place] [address] [place] [address] PCP - General 08/26/11 Jass Pepe MD [address] [place] [address] Consulting Physician Orthopedic Surgery 05/20/16 Emergency Dept Tech Relationship Specialty Start Date End Date Nicol Ibanez MD [address] [place] [address] PCP - General 08/26/11 Jass Pepe MD [address] [place] [address] Consulting Physician Orthopedic Surgery 05/20/16 Emergency Dept Tech Relationship Specialty Start Date End Date Nicol Ibanez MD [address] [place] [address] PCP - General 08/26/11 Jass Pepe MD [address] [place] [address] Consulting Physician Orthopedic Surgery 05/20/16 Emergency Dept Tech Relationship Specialty Start Date End Date Nicol Ibanez MD [address] [place] [address] [place] [address] PCP - General 08/26/11 Jass Pepe MD [address] [facility] [place] [address] Consulting Physician Orthopedic Surgery 05/20/16 Emergency Dept Tech Relationship Specialty Start Date End Date Nicol Ibanez MD [address] [place] [address] [place] [address] PCP - General 08/26/11 Jass Pepe MD [address] [facility] [place] [address] Consulting Physician Orthopedic Surgery 05/20/16 Emergency Dept Tech Relationship Specialty Start Date End Date Nicol Ibanez MD [address] [place] [address] PCP - General 08/26/11 Jass Pepe MD [address] [facility] [address] Consulting Physician Orthopedic Surgery 05/20/16 Emergency Dept Tech Relationship Specialty Start Date End Date Nicol Ibanez MD [address] [place] [address] [place] [address] PCP - General 08/26/11 Jass Pepe MD [address] [facility] [place] [address] Consulting Physician Orthopedic Surgery 05/20/16 Emergency Dept Tech Relationship Specialty Start Date End Date Nicol Ibanez MD [address] [place] [address] PCP - General 08/26/11 Jass Pepe MD [address] [place] [address] Consulting Physician Orthopedic Surgery 05/20/16 Emergency Dept Tech Relationship Specialty Start Date End Date Nicol Ibanez MD [address] [place] [address] PCP - General 08/26/11 Jass Pepe MD [address] [place] [address] Consulting Physician Orthopedic Surgery 05/20/16 Emergency Dept Tech Relationship Specialty Start Date End Date Nicol Ibanez MD [address] [place] [address] PCP - General 08/26/11 Jass Pepe MD [address] [place] [address] Consulting Physician Orthopedic Surgery 05/20/16 Team Status: [...] MD Attending Provider, Emergency Provi aleksandar Active Emergency Dept Tech Relationship Specialty Start Date End Date Nicol Ibanez MD [address] [place] [address] [place] [address] PCP - General 08/26/11 Jass Pepe MD [address] [place] [address] Consulting Physician Orthopedic Surgery 05/20/16 Emergency Dept Tech Relationship Specialty Start Date End Date Nicol Ibanez MD [address] [place] [address] [place] [address] PCP - General 08/26/11 Jass Pepe MD [address] [place] [address] Consulting Physician Orthopedic Surgery 05/20/16 Team Status: Active Member Role Status Dates Dr. Nicol Ibanez MD Family Provider Active Dr. Kirill Newell MD Primary Care Provider Active Team Status: Inactive Member Role Status Dates Dr. Kirill Newell MD Primary Care Provide r, Attending Provider, Referring Provider Active Emergency Dept Tech Relationship Specialty Start Date End Date Nicol Ibanez MD [address] [place] [address] PCP - General 08/26/11 Jass Pepe MD [address] [place] [address] Consulting Physician Orthopedic Surgery 05/20/16 Emergency Dept Tech Relationship Specialty Start Date End Date Nicol Ibanez MD [address] [place] [address] PCP - General 08/26/11 Jass Pepe MD [address] [place] [address] Consulting Physician Orthopedic Surgery 05/20/16 Emergency Dept Tech Relationship Specialty Start Date End Date Nicol Ibanez MD [address] [place] [address] [place] [address] PCP - General 08/26/11 Jass Pepe MD [address] [place] [address] Consulting Physician Orthopedic Surgery 05/20/16 Emergency Dept Tech Relationship Specialty Start Date End Date Nicol Ibanez MD [address] [place] [address] PCP - General 08/26/11 Jass Pepe MD [address] [place] [address] Consulting Physician Orthopedic Surgery 05/20/16 Emergency Dept Tech Relationship Specialty Start Date End Date Nicol Ibanez MD [address] [place] [address] PCP - General 08/26/11 Jass Pepe MD [address] [place] [address] Consulting Physician Orthopedic Surgery 05/20/16 Emergency Dept Tech Relationship Specialty Start Date End Date Nicol Ibanez MD [address] [place] [address] PCP - General 08/26/11 Jass Pepe MD [address] [place] [address] Consulting Physician Orthopedic Surgery 05/20/16 Emergency Dept Tech Relationship Specialty Start Date End Date Nicol Ibanez MD [address] [place] [address] PCP - General 08/26/11 Jass Pepe MD [address] [place] [address] Consulting Physician Orthopedic Surgery 05/20/16 Emergency Dept Tech Relationship Specialty Start Date End Date Nicol Ibanez MD [address] [place] [address] PCP - General 08/26/11 Jass Pepe MD [address] [place] [address] Consulting Physician Orthopedic Surgery 05/20/16 Emergency Dept Tech Relationship Specialty Start Date End Date Nicol Ibanez MD [address] [place] [address] PCP - General 08/26/11 Jass Pepe MD [address] [place] [address] Consulting Physician Orthopedic Surgery 05/20/16 Emergency Dept Tech Relationship Specialty Start Date End Date Nicol Ibanez MD [address] [place] [address] PCP - General 08/26/11 Jass Pepe MD [address] [place] [address] Consulting Physician Orthopedic Surgery 05/20/16 Emergency Dept Tech Relationship Specialty Start Date End Date Nicol Ibanez MD [address] [place] [address] PCP - General 08/26/11 Jass Pepe MD [address] [place] [address] Consulting Physician Orthopedic Surgery 05/20/16 Emergency Dept Tech Relationship Specialty Start Date End Date Nicol Ibanez MD [address] [place] [address] PCP - General 08/26/11 Jass Pepe MD [address] [place] [address] Consulting Physician Orthopedic Surgery 05/20/16 Emergency Dept Tech Relationship Specialty Start Date End Date Nicol Ibanez MD [address] [place] [address] PCP - General 08/26/11 Jass Pepe MD [address] [place] [address] Consulting Physician Orthopedic Surgery 05/20/16 Emergency Dept Tech Relationship Specialty Start Date End Date Nicol Ibanez MD [address] [place] [address] PCP - General 08/26/11 Jass Pepe MD [address] [place] [address] Consulting Physician Orthopedic Surgery 05/20/16 Emergency Dept Tech Relationship Specialty Start Date End Date Nicol Ibanez MD [address] [place] [address] PCP - General 08/26/11 Jass Pepe MD [address] [place] [address] Consulting Physician Orthopedic Surgery 05/20/16 Emergency Dept Tech Relationship Specialty Start Date End Date Nicol Ibanez MD [address] [place] [address] PCP - General 08/26/11 Jass Pepe MD [address] [place] [address] Consulting Physician Orthopedic Surgery 05/20/16 Emergency Dept Tech Relationship Specialty Start Date End Date Nicol Ibanez MD [address] [place] [address] PCP - General 08/26/11 Jass Pepe MD [address] [place] [address] Consulting Physician Orthopedic Surgery 05/20/16 Emergency Dept Tech Relationship Specialty Start Date End Date iNcol Ibanez MD [address] [place] [address] PCP - General 08/26/11 Jass Pepe MD [address] [place] [address] Consulting Physician Orthopedic Surgery 05/20/16 Emergency Dept Tech Relationship Specialty Start Date End Date Nicol Ibanez MD [address] [place] [address] PCP - General 08/26/11 Jass Pepe MD [address] [place] [address] Consulting Physician Orthopedic Surgery 05/20/16 Emergency Dept Tech Relationship Specialty Start Date End Date Nicol Ibanez MD [address] [place] [address] PCP - General 08/26/11 Jass Pepe MD [address] [place] [address] Consulting Physician Orthopedic Surgery 05/20/16 Emergency Dept Tech Relationship Specialty Start Date End Date Nicol Ibanez MD [address] [place] [address] PCP - General 08/26/11 Jass Pepe MD [address] [place] [address] Consulting Physician Orthopedic Surgery 05/20/16 Emergency Dept Tech Relationship Specialty Start Date End Date Nicol Ibanez MD [address] [place] [address] PCP - General 08/26/11 Jass Pepe MD [address] [place] [address] Consulting Physician Orthopedic Surgery 05/20/16 Emergency Dept Tech Relationship Specialty Start Date End Date Nicol Ibanez MD [address] [place] [address] PCP - General 08/26/11 Jass Pepe MD [address] [place] [address] Consulting Physician Orthopedic Surgery 05/20/16 Scheduled Active [...] PLACED TUBE OR TUBE less than 14 Frisian For tube administration: dissolve tablet(s) with 4 [...] Thu01/21/22 at 1636, PACU (only), Arterial and [place] Annetta Lines at 300 mmHg 1738 (Canceled [...] BE BASED ON THE PRIMARY CLINICAL RECORDS. [facility] [employer] [facility]. provides no warranty or guarantee of the accuracy or completeness of information in this document.
--- OUTSIDE RECORDS SUMMARY | 2025-05-30 02:46 | XMS RPT_ITS | CCD ---
Author Organization [facility] CliniSyal Care Team Providers Care Clay Thrower Name Role Phone Nicol Ibanez Unavailable Unavailable [...] Maldonado Unavailable NICOL IBANEZ Primary Care [facility] NICOL OSBORN Primary Care Unavailable [...] NSAIDs (4 sources) Naproxen Drug Allergy 5 [facility] Quinolones (antibiotic) (4 sources) levoFLOXacin Drug Allergy [address] [place] [address] (20 sources) levoFLOXacin; Translations: [LEVOFLOXACIN] Propensity to adverse reactions to drug [address] [place] [address] Work Phone: (20 sources) naproxen; Translations: [NAPROXEN] Propensity to adverse reactions to drug [address] [place] [address] Work Phone: (1 source) ALLERGIES NOT ON FILE; Translations: [ALLERGIES NOT ON FILE] Propensity to adverse reactions (disorder) [facility] 2 Repository (1 source) Naproxen Drug Allergy 3 [facility] Repository Medications Current Medications Medication Drug [...] 29, 2018 12:00am March 16, 2018 8:23am PRHNKTI-MCPTRUBMC-TOTE ORAL (20 sources) take 1 tablet by mouth once daily RZNPTLU-TXOKDEMJK-TSQP ORAL Take 1 tablet by mouth daily . 0 take 1 tablet by mouth once umm y UHYYTGR-XUSNGHXRT-MUDU ORAL Take 1 tablet by mouth daily . 0 Suspended take 1 tablet by mouth once umm y VPDPAXY-FRIGTWHXU-WQMK ORAL Take 1 tablet by mouth daily . 0 Active take 1 tablet by mouth twice erinn ly ESESUUC-LNSHBCCBU-ARKZ ORAL Take 1 tablet by mouth 2 [...] (two) times a day . 0 Active [id number] 200 actuat albuterol 0.09 mg/actuat metered dose [...] route twice daily azelastine-fluticasone (DYMISTA) 137-50 mcg/spray [place] Instill 1 spray into each nostril 2 [...] 02/05/2024 docusate sodium 50 mg / sennosides, senior care 8.6 mg oral tablet (1 source) Start: [...] 01-22-2022 naloxone (NARCAN) injection 0.1 mg nystatin [id number] unt/ml oral suspension (14 sources) Polyene Antifungal Start: 08-10-2018 End: 02-28-2019 take 902335 [IU] by mouth three times daily Nystatin Discontinued [id number] UNIT PO THREE TIMES A DAY 60 [...] 0-10 mL of mixture polyethylene glycol 3350 45740 mg powder for oral solution (10 sources) [...] MG tablet Indications: 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 Take 1 (one) [...] End: 01-21-2022 sodium chloride 0.9% (NS) Tiotropium [place] (7 sources) Anticholinergic Start: 12-22-2017 End: 12-22-2017 take 1 puff(s) by inhalation once daily Tiotropium [place] (Spiriva Respimat) 2.5 mcg/actuation mist Discontinued 2 PUFF INHALATION daily December 22, 2017 12:00am December 22, 2017 10:44am Start: 12-22-2017 End: 12-22-2017 take 1 puff(s) by inhalation once daily Tiotropium [place] (Spiriva Respimat) 2.5 mcg/actuation mist Discontinued 2 [...] heart disease (20 sources) 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sitka artery; Translations: [Atherosclerotic heart disease of sitka coronary artery without angina pectoris] Onset: 11-05-2015 [...] Absolute Lymph 1.60 X10 3/uL Normal 0.83-4.51 [facility] Comment on above: Order Comment: Order Date: 12/13/24 Order Info: 0184-1 - CBCD Order Info: [id number] - SED Performed By: #### L 100.0100, L500.4050, L502.0250, L506.1000, L500.4100, L501.9520, L501.9985, L509.1000, L101.9900 #### [facility] [place], [address] Absolute Neut 3.8 X10 3/uL Normal 2.0-7.7 [facility] Comment on above: Order Comment: Order Date: 12/13/24 Order Info: 018-1 - CBCD Order Info: [id number] - SED Performed By: #### L 100.0100, L500.4050, L502.0250, L506.1000, L500.4100, L501.9520, L501.9985, L509.1000, L101.9900 #### [facility] [address] [place], [address] Basophils/100 WBC (Bld) 0.7 % Normal 0-1 [facility] Comment on above: Order Comment: Order Date: 12/13/24 Order Info: 183-11 - CBCD Order Info: 79767-1 - SED Performed By: #### L 100.0100, L500.4050, L502.0250, L506.1000, L500.4100, L501.9520, L501.9985, L509.1000, L101.9900 #### [facility] [address] [place], [address] Eosinophils/100 WBC (Bld) 3.0 % Normal 0-5 [facility] Comment on above: Order Comment: Order Date: 12/13/24 Order Info: [id number] - CBCD Order Info: [id number] - SED Performed By: #### L 100.0100, L500.4050, L502.0250, L506.1000, L500.4100, L501.9520, L501.9985, L509.1000, L101.9900 #### [facility] [address] [place], [address] Erythrocyte distribution width (RBC) [Ratio] 14.6 % Normal 11.6-14.6 [facility] Comment on above: Order Comment: Order Date: 12/13/24 Order Info: [id number] - CBCD Order Info: [id number] - SED Performed By: #### L 100.0100, L500.4050, L502.0250, L506.1000, L500.4100, L501.9520, L501.9985, L509.1000, L101.9900 #### [facility] [address] [place], [address] Hematocrit (Bld) [Volume fraction] 36.5 % Low 37-47 [facility] Comment on above: Order Comment: Order Date: 12/13/24 Order Info: 018-1 - CBCD Order Info: [id number] - SED Performed By: #### L 100.0100, L500.4050, L502.0250, L506.1000, L500.4100, L501.9520, L501.9985, L509.1000, L101.9900 #### [facility] [address] [place], [place], [id number] Hemoglobin (Bld) [Mass/Vol] 11.6 g/dL Low 12.0-15.0 [facility] Comment on above: Order Comment: Order Date: 12/13/24 Order Info: 0184- - CBCD Order Info: 10935-8 - SED Performed By: #### L 100.0100, L500.4050, L502.0250, L506.1000, L500.4100, L501.9520, L501.9985, L509.1000, L101.9900 #### [facility] [address] [facility] [place], [place], [phone] IG% 0.300 Normal 0.0-0.9 [facility] Comment on above: Order Comment: Order Date: 12/13/24 Order Info: [id number] - CBCD Order Info: [id number] - SED Result Comment: IG% - Immature Granulocytes (promyelocytes, myelocytes and metamyelocytes) > 1% indicates that a LEFT SHIFT is Present. Performed By: #### L 100.0100, L500.4050, L502.0250, L506.1000, L500.4100, L501.9520, L501.9985, L509.1000, L101.9900 #### [facility] [address] [place], [address] Lymphocytes/100 WBC (Bld) 26.8 % Normal 19-41 [facility] Comment on above: Order Comment: Order Date: 12/13/24 Order Info: 0184- - CBCD Order Info: 51266-0 - SED Performed By: #### L 100.0100, L500.4050, L502.0250, L506.1000, L500.4100, L501.9520, L501.9985, L509.1000, L101.9900 #### [facility] [address] [place], [address] MCH (RBC) [Entitic mass] 29.0 pg Normal 27.0-32.0 [facility] Comment on above: Order Comment: Order Date: 12/13/24 Order Info: 01802-28 - CBCD Order Info: 15413-7 - SED Performed By: #### L 100.0100, L500.4050, L502.0250, L506.1000, L500.4100, L501.9520, L501.9985, L509.1000, L101.9900 #### [facility] [address] [place], [address] MCHC (RBC) [Mass/Vol] 31.8 g/dL Low 32-36 [facility] Comment on above: Order Comment: Order Date: 12/13/24 Order Info: 0184- - CBCD Order Info: 84891-4 - SED Performed By: #### L 100.0100, L500.4050, L502.0250, L506.1000, L500.4100, L501.9520, L501.9985, L509.1000, L101.9900 #### [facility] [address] [place], [address] MCV (RBC) [Entitic vol] 91.3 fL Normal 81-99 [facility] Comment on above: Order Comment: Order Date: 12/13/24 Order Info: 018- - CBCD Order Info: [id number] - SED Performed By: #### L 100.0100, L500.4050, L502.0250, L506.1000, L500.4100, L501.9520, L501.9985, L509.1000, L101.9900 #### [facility] [address] [place], [address] Monocytes/100 WBC (Bld) 6.2 % Normal 0-10 [facility] Comment on above: Order Comment: Order Date: 12/13/24 Order Info: 183-11 - CBCD Order Info: 41183-3 - SED Performed By: #### L 100.0100, L500.4050, L502.0250, L506.1000, L500.4100, L501.9520, L501.9985, L509.1000, L101.9900 #### [facility] [address] [place], [address] Neutrophils/100 WBC (Bld) 63.0 % Normal 47-70 [facility] Comment on above: Order Comment: Order Date: 12/13/24 Order Info: [id number] - CBCD Order Info: [id number] - SED Performed By: #### L 100.0100, L500.4050, L502.0250, L506.1000, L500.4100, L501.9520, L501.9985, L509.1000, L101.9900 #### [facility] [address] [place], [address] Nucleated RBC (Bld) [#/Vol] 0 10*3/uL Normal 0-5 [facility] Comment on above: Order Comment: Order Date: 12/13/24 Order Info: 018- - CBCD Order Info: [id number] - SED Performed By: #### L 100.0100, L500.4050, L502.0250, L506.1000, L500.4100, L501.9520, L501.9985, L509.1000, L101.9900 #### [facility] [address] [place], [address] Platelet mean volume (Bld) [Entitic vol] 11.8 fL Normal 6.2-12.0 [facility] Comment on above: Order Comment: Order Date: 12/13/24 Order Info: 0184-1 - CBCD Order Info: 44228-1 - SED Performed By: #### L 100.0100, L500.4050, L502.0250, L506.1000, L500.4100, L501.9520, L501.9985, L509.1000, L101.9900 #### [facility] [address] [place], [address] Platelets (Bld) [#/Vol] 201 10*3/uL Normal 150-450 [facility] Comment on above: Order Comment: Order Date: 12/13/24 Order Info: 0184-1 - CBCD Order Info: 24461-2 - SED Performed By: #### L 100.0100, L500.4050, L502.0250, L506.1000, L500.4100, L501.9520, L501.9985, L509.1000, L101.9900 #### [facility] [address] [place], [address] RBC (Bld) [#/Vol] 4.00 10*6/uL Low 4.2-5.4 [facility] Comment on above: Order Comment: Order Date: 12/13/24 Order Info: 0184-1 - CBCD Order Info: 19883-3 - SED Performed By: #### L 100.0100, L500.4050, L502.0250, L506.1000, L500.4100, L501.9520, L501.9985, L509.1000, L101.9900 #### [facility] [address] [place], [place], [id number] RDW SD 47.9 fl High 35.1-43.9 [facility] Comment on above: Order Comment: Order Date: 12/13/24 Order Info: 0184-1 - CBCD Order Info: 39257-0 - SED Performed By: #### L 100.0100, L500.4050, L502.0250, L506.1000, L500.4100, L501.9520, L501.9985, L509.1000, L101.9900 #### [facility] [address] [place], [place], [phone] WBC (Bld) [#/Vol] 6.0 10*3/uL Normal 4.4-11.0 [facility] Comment on above: Order Comment: Order Date: 12/13/24 Order Info: 0184-1 - CBCD Order Info: 32676-3 - SED Performed By: #### L 100.0100, L500.4050, L502.0250, L506.1000, L500.4100, L501.9520, L501.9985, L509.1000, L101.9900 #### [facility] [address] [place], [place], [id number] Comprehensive Metabolic Prof [facility] 12-19-2024 Albumin [Mass/Vol] 3.1 g/dL Low 3.2-5.0 [facility] Comment on above: Order Comment: Order Date: 12/13/24 Order Info: 0786-1 - CMP Order Info: [id number] - LIPID Order Info: 3016-3 - TSH Performed By: #### L 100.0100, L500.4050, L502.0250, L506.1000, L500.4100, L501.9520, L501.9985, L509.1000, L101.9900 #### [facility] [address] [place], [place], [phone] Albumin/Globulin [Mass ratio] 0.7 {ratio} Low 0.9-2.4 [facility] Comment on above: Order Comment: Order Date: 12/13/24 Order Info: 0786-1 - CMP Order Info: [id number] - LIPID Order Info: 3015-3 - TSH Performed By: #### L 100.0100, L500.4050, L502.0250, L506.1000, L500.4100, L501.9520, L501.9985, L509.1000, L101.9900 #### [facility] [address] [place], [address] ALK P 119 U/L High 45-117 [facility] Comment on above: Order Comment: Order Date: 12/13/24 Order Info: 86-1 - CMP Order Info: [id number] - LIPID Order Info: 3015-3 - TSH Performed By: #### L 100.0100, L500.4050, L502.0250, L506.1000, L500.4100, L501.9520, L501.9985, L509.1000, L101.9900 #### [facility] [address] [place], [address] ALT [Catalytic activity/Vol] 24 U/L Normal 13-56 [facility] Comment on above: Order Comment: Order Date: 12/13/24 Order Info: 0786-1 - CMP Order Info: [id number] - LIPID Order Info: 3015-3 - TSH Performed By: #### L 100.0100, L500.4050, L502.0250, L506.1000, L500.4100, L501.9520, L501.9985, L509.1000, L101.9900 #### [facility] [address] [place], [address] AST [Catalytic activity/Vol] 24 U/L Normal 15-37 [facility] Comment on above: Order Comment: Order Date: 12/13/24 Order Info: 0786-1 - CMP Order Info: [id number] - LIPID Order Info: 3 - TSH Performed By: #### L 100.0100, L500.4050, L502.0250, L506.1000, L500.4100, L501.9520, L501.9985, L509.1000, L101.9900 #### [facility] [address] [place], [place], [phone] Bilirubin [Mass/Vol] 0.70 mg/dL Normal 0.20-1.00 [facility] Comment on above: Order Comment: Order Date: 12/13/24 Order Info: 0786-1 - CMP Order Info: [id number] - LIPID Order Info: 3015-3 - TSH Result Comment: For patients on eltrombopag therapy, use of Dimension Wagoner TBIL is not recommended. Performed By: #### L 100.0100, L500.4050, L502.0250, L506.1000, L500.4100, L501.9520, L501.9985, L509.1000, L101.9900 #### [facility] [address] [place], [place], [id number] BUN/CRE 18.9 RATIO Normal 10-20 [facility] Comment on above: Order Comment: Order Date: 12/13/24 Order Info: 0786- - CMP Order Info: [id number] - LIPID Order Info: 3 - TSH Performed By: #### L 100.0100, L500.4050, L502.0250, L506.1000, L500.4100, L501.9520, L501.9985, L509.1000, L101.9900 #### [facility] [address] [place], [place], [phone] CA,Total 9.1 mg/dL Normal 8.5-10.1 [facility] Comment on above: Order Comment: Order Date: 12/13/24 Order Info: 0786-1 - CMP Order Info: [id number] - LIPID Order Info: 3016-3 - TSH Performed By: #### L 100.0100, L500.4050, L502.0250, L506.1000, L500.4100, L501.9520, L501.9985, L509.1000, L101.9900 #### [facility] [address] [place], [address] Chloride [Moles/Vol] 107 mmol/L Normal 98-107 [facility] Comment on above: Order Comment: Order Date: 12/13/24 Order Info: 0786-1 - CMP Order Info: [id number] - LIPID Order Info: 3016-3 - TSH Performed By: #### L 100.0100, L500.4050, L502.0250, L506.1000, L500.4100, L501.9520, L501.9985, L509.1000, L101.9900 #### [facility] [address] [place], [place], [phone] CO2 [Moles/Vol] 28.0 mmol/L Normal 21.0-32.0 [facility] Comment on above: Order Comment: Order Date: 12/13/24 Order Info: 0786-1 - CMP Order Info: [id number] - LIPID Order Info: 6-3 - TSH Performed By: #### L 100.0100, L500.4050, L502.0250, L506.1000, L500.4100, L501.9520, L501.9985, L509.1000, L101.9900 #### [facility] [address] [place], [place], [phone] Creatinine [Mass/Vol] 0.85 mg/dL Normal 0.55-1.02 [facility] Comment on above: Order Comment: Order Date: 12/13/24 Order Info: 0786-1 - CMP Order Info: [id number] - LIPID Order Info: 3016-3 - TSH Result Comment: The validity of the calculated GFR GFRAA in patients over 70 years has not been determined. Clinical correlation is essential. Performed By: #### L 100.0100, L500.4050, L502.0250, L506.1000, L500.4100, L501.9520, L501.9985, L509.1000, L101.9900 #### [facility] [address] [place], [place], [address] EST GFR - AA 85 mL/min Normal >60 [facility] Comment on above: Order Comment: Order Date: 12/13/24 Order Info: 0786-1 - CMP Order Info: [id number] - LIPID Order Info: 3016-3 - TSH Result Comment: Afri can [place] GFR Calc Performed By: #### L 100.0100, L500.4050, L502.0250, L506.1000, L500.4100, L501.9520, L501.9985, L509.1000, L101.9900 #### [facility] [address] [place], [address] GAP 2 Low 5-15 [facility] Comment on above: Order Comment: Order Date: 12/13/24 Order Info: 07- - CMP Order Info: [id number] - LIPID Order Info: 3 - TSH Performed By: #### L 100.0100, L500.4050, L502.0250, L506.1000, L500.4100, L501.9520, L501.9985, L509.1000, L101.9900 #### [facility] [address] [place], [place], [id number] GFR/1.73 sq M.predicted among non-blacks MDRD (S/P/Bld) [Vol rate/Area] 71 mL/min/{1.73_m2} Normal >60 [facility] Comment on above: Order Comment: Order Date: 12/13/24 Order Info: 0786-1 - CMP Order Info: 15148-1 - LIPID Order Info: 3016-3 - TSH Result Comment: Non- GFR Calc Performed By: #### L 100.0100, L500.4050, L502.0250, L506.1000, L500.4100, L501.9520, L501.9985, L509.1000, L101.9900 #### [facility] [address] [place], [address] Globulin (S) [Mass/Vol] 4.6 g/dL High 2.2-4.2 [facility] Comment on above: Order Comment: Order Date: 12/13/24 Order Info: 0786-1 - CMP Order Info: [id number] - LIPID Order Info: 3016-3 - TSH Performed By: #### L 100.0100, L500.4050, L502.0250, L506.1000, L500.4100, L501.9520, L501.9985, L509.1000, L101.9900 #### [facility] [address] [place], [address] Glucose [Mass/Vol] 96 mg/dL Normal 74-106 [facility] Comment on above: Order Comment: Order Date: 12/13/24 Order Info: 0786- - CMP Order Info: [id number] - LIPID Order Info: 3015-3 - TSH Performed By: #### L 100.0100, L500.4050, L502.0250, L506.1000, L500.4100, L501.9520, L501.9985, L509.1000, L101.9900 #### [facility] [address] [place], [address] Potassium [Moles/Vol] 4.3 mmol/L Normal 3.5-5.1 [facility] Comment on above: Order Comment: Order Date: 12/13/24 Order Info: 0786-1 - CMP Order Info: [id number] - LIPID Order Info: 3016-3 - TSH Performed By: #### L 100.0100, L500.4050, L502.0250, L506.1000, L500.4100, L501.9520, L501.9985, L509.1000, L101.9900 #### [facility] [address] [place], [address] Sodium [Moles/Vol] 137 mmol/L Normal 136-145 [facility] Comment on above: Order Comment: Order Date: 12/13/24 Order Info: 0786-1 - CMP Order Info: [id number] - LIPID Order Info: 3016-3 - TSH Performed By: #### L 100.0100, L500.4050, L502.0250, L506.1000, L500.4100, L501.9520, L501.9985, L509.1000, L101.9900 #### [facility] [address] [place], [place], [address] T PROT 7.7 g/dL Normal 6.4-8.2 [facility] Comment on above: Order Comment: Order Date: 12/13/24 Order Info: 0786- - CMP Order Info: [id number] - LIPID Order Info: 3016-3 - TSH Performed By: #### L 100.0100, L500.4050, L502.0250, L506.1000, L500.4100, L501.9520, L501.9985, L509.1000, L101.9900 #### [facility] [address] [place], [address] Urea nitrogen [Mass/Vol] 16 mg/dL Normal 7-18 [facility] Comment on above: Order Comment: Order Date: 12/13/24 Order Info: 0786-1 - CMP Order Info: [id number] - LIPID Order Info: 3016-3 - TSH Performed By: #### L 100.0100, L500.4050, L502.0250, L506.1000, L500.4100, L501.9520, L501.9985, L509.1000, L101.9900 #### [facility] [address] [place], [place], [phone] Erythrocyte Sed Rateon 12-19 SED RATE 37 mm/hr High 0-30 [facility] Comment on above: Order Comment: Order Date: 12/13/24 Order Info: 0184-1 - CBCD Order Info: [id number] - SED Performed By: #### L 100.0100, L500.4050, L502.0250, L506.1000, L500.4100, L501.9520, L501.9985, L509.1000, L101.9900 #### [facility] [address] [place], [place], [address] (680) Hemoglobin A1con 12-19-2024 HbA1c (Bld) [Mass fraction] 5.9 % High 3.8-5.6 [facility] Comment on above: Order Comment: Order Date: 12/13/24 Order Info: [id number] - A1C Result Comment: Norm al < 5.7 % Prediabetic 5.7 - 6.4 % Diabetic >or= 6.5 % Please note range changes. Performed By: #### L 100.0100, L500.4050, L502.0250, L506.1000, L500.4100, L501.9520, L501.9985, L509.1000, L101.9900 #### [facility] [address] [place], [address] Lipid Profileon 12-19-2024 Cholesterol [Mass/Vol] 150 mg/dL Normal 200 [facility] Comment on above: Order Comment: Order Date: 12/13/24 Order Info: 0786-1 - CMP Order Info: [id number] - LIPID Order Info: 3016-3 - TSH Result Comment: <200 mg/dL Desirable 200-240 mg/dL Borderline >240 mg/dL High Risk Performed By: #### L 100.0100, L500.4050, L502.0250, L506.1000, L500.4100, L501.9520, L501.9985, L509.1000, L101.9900 #### [facility] [address] [place], [address] Cholesterol in HDL [Mass/Vol] 73 mg/dL Normal [facility] Comment on above: Order Comment: Order Date: 12/13/24 Order Info: 0786-1 - CMP Order Info: [id number] - LIPID Order Info: 3016-01 - TSH Result Comment: The drugs N-Acetylcysteine and Metamizole may falsely depress this assay. Reference Range HDL <40 mg/dL Low HDL Cholesterol HDL >or= 60 mg/dL High HDL Cholesterol Performed By: #### L 100.0100, L500.4050, L502.0250, L506.1000, L500.4100, L501.9520, L501.9985, L509.1000, L101.9900 #### [facility] [address] [place], [address] Cholesterol in LDL [Mass/Vol] 62 mg/dL Normal 0-130 [facility] Comment on above: Order Comment: Order Date: 12/13/24 Order Info: 0786- - CMP Order Info: [id number] - LIPID Order Info: 3016-01 - TSH Performed By: #### L 100.0100, L500.4050, L502.0250, L506.1000, L500.4100, L501.9520, L501.9985, L509.1000, L101.9900 #### [facility] [address] [place], [address] Cholesterol in VLDL [Mass/Vol] 15 mg/dL Normal 5-40 [facility] Comment on above: Order Comment: Order Date: 12/13/24 Order Info: 0786- - CMP Order Info: [id number] - LIPID Order Info: 3016-01 - TSH Performed By: #### L 100.0100, L500.4050, L502.0250, L506.1000, L500.4100, L501.9520, L501.9985, L509.1000, L101.9900 #### [facility] [address] [place], [address] Triglyceride [Mass/Vol] 75 mg/dL Normal [facility] Comment on above: Order Comment: Order Date: 12/13/24 Order Info: 0786- - CMP Order Info: [id number] - LIPID Order Info: 3016-3 - TSH Result Comment: The drugs N-Acetylcysteine and Metamizole may falsely depress this assay. Serum Triglycerides Reference Interval Normal <150 mg/dL Borderline high 150 - 199 mg/dL High 200 - 499 mg/dL Very High > or = 500 mg/dL Performed By: #### L 100.0100, L500.4050, L502.0250, L506.1000, L500.4100, L501.9520, L501.9985, L509.1000, L101.9900 #### [facility] [address] [place], [address] Microalb:Creat Ratio,Random URon 12-19-2024 Creatinine [Mass/Vol] 71.60 mg/dL Normal NO RAN GE EST. [facility] Comment on above: Order Comment: Order Date: 12/13/24 Order Info: [id number] - MIACRE Performed By: #### L 100.0100, L500.4050, L502.0250, L506.1000, L500.4100, L501.9520, L501.9985, L509.1000, L101.9900 #### [facility] [address] [place], [address] MALB:CRE 27.8 mg/g CRE Normal <30 mg/g CRE [facility] Comment on above: Order Comment: Order Date: 12/13/24 Order Info: [id number] - MIACRE Performed By: #### L 100.0100, L500.4050, L502.0250, L506.1000, L500.4100, L501.9520, L501.9985, L509.1000, L101.9900 #### [facility] [address] [place], [address] MICROALBUMIN,UR 19.9 mg/L Normal NO RANGE EST. [facility] Comment on above: Order Comment: Order Date: 12/13/24 Order Info: [id number] - MIACRE Performed By: #### L 100.0100, L500.4050, L502.0250, L506.1000, L500.4100, L501.9520, L501.9985, L509.1000, L101.9900 #### [facility] [address] [place], [address] PTHINon 12-19-2024 PTH 54.7 pg/mL Normal 18.4-80.1 [facility] Comment on above: Order Comment: Order Date: 12/13/24 Order Info: [id number] - PTHIN Performed By: #### L 100.0100, L500.4050, L502.0250, L506.1000, L500.4100, L501.9520, L501.9985, L509.1000, L101.9900 #### [facility] [address] [place], [address] Thyroid Stim Hormone (TSH)on 12-19-2024 TSH 2.030 uIU/mL Normal 0.358-3.740 [facility] Comment on above: Order Comment: Order Date: 12/13/24 Order Info: [id number] - CMP Order Info: [id number] - LIPID Order Info: [id number] - TSH Performed By: #### L 100.0100, L500.4050, L502.0250, L506.1000, L500.4100, L501.9520, L501.9985, L509.1000, L101.9900 #### [facility] [address] [place], [address] Vitamin D,25 Hydroxyon 12-19 Vitamin D 25-OH 42.7 ng/mL Normal [facility] Comment on above: Order Comment: Order Date: 12/13/24 Order Info: [id number] - VITD25 Result Comment: Bethany min D 25(OH) Status Range Deficiency <20 ng/mL (50nmol/L) Insufficiency 20 - 30 ng/mL (50 - 75 nmol/L) Sufficiency 30 - 100 ng/mL (75 - 250 nmol/L) Toxicity >100 ng/mL (>250 nmol/L) Performed By: #### L 100.0100, L500.4050, L502.0250, L506.1000, L500.4100, L501.9520, L501.9985, L509.1000, L101.9900 #### [facility] [address] [place], [address] Venous Duplex US, Unilateral on 05-27-2024 Venous Duplex US, Unilateral [facility] [address] 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 IMPRESSION: Intact knee replacement. [facility] Workstation ID: [id number] Dictated by: ROBE COLIN on ThuMar 25, 2024 4:34:08 PM EDT Transcribed by: JAY GUADARRAMA on ThuMar 25, 2024 4:53:17 PM EDT Finalized by: ROBE COLIN on ThuMar 25, 2024 5:26:19 PM EDT Normal [facility] Comment on above: Order [...] ThuJan 26, 2024 4:57:48 PM EST Normal [facility] Comment on above: Order Comment: Injur [...] unremarkable. IMPRESSION: Severe right knee tricompartmental osteoarthritis. [facility] Workstation ID: [id number] Dictated by: ROBE COLIN on ThuJan 07, 2024 2:25:02 PM EST Transcribed by: LUCY NEWELL on ThuJan 07, 2024 2:25:02 PM EST Finalized by: ROBE COLIN on ThuJan 07, 2024 10:52:02 PM EST Normal [facility] Comment on above: Order Comment: Nicolas ayers only schedule at [facility]. Do not schedule Ct scan appointment with patient. Ordering Doctor's office will call to schedule Ct scan appointment. Injury/Trauma or Illness?:Illness/Other How long have you had these symptoms (acute/chronic)?:Acute Reason for exam?:pre operative for upcoming Rt TKR Type of Exam?:Initial Additional signs and symptoms?:. Basophil percentageOrdered B y: Kirill Newell on 11-12-2023 Bilirubin [Mass/Vol] 0.70 mg/dL 0.20-1.00 [facility] Comment on above: For patients on eltr ombopag therapy, use of Dimension [employer]agon[employer] TBIL is not recommended. Chloride [Moles/Vol] 107 mmol/L 98-107 [facility] Glucose [Mass/Vol] 97 mg/dL 74-106 [facility] Potassium [Moles/Vol] 4.3 mmol/L 3.5-5.1 [facility] Protein [Mass/Vol] 8.7 g/dL 6.4-8.2 [facility] Sodium [Moles/Vol] 140 mmol/L 136-145 [facility] WBC (Bld) [#/Vol] 7.7 10*3/uL 4.4-11.0 [facility] Blood erythrocytes count (nu mber/volume)Ordered By: Kirill Newell on 11-12-2023 RBC (Bld) [#/Vol] 4.16 10*6/uL 4.2-5.4 [facility] Blood hemoglobin measurement (mass/volume)Ordered By: Kirill Newell on 11-12-2023 Hemoglobin (Bld) [Mass/Vol] 11.5 g/dL 12.0-15.0 [facility] Blood platelet mean volumeOr dered By: Kirill Newell on 11-12-2023 Platelet mean volume (Bld) [Entitic vol] 11.2 fL 6.2-12.0 [facility] Determination of erythrocyte mean corpuscular volume (MCV)Ordered By: Kirill Newell on 11-12-2023 MCV (RBC) [Entitic vol] 89.2 fL 81-99 [facility] Erythrocyte sedimentation ra teOrdered By: Kirill Newell on 11-12-2023 ESR (Bld) [Velocity] 48 mm/h 0-30 [facility] Hematocrit Auto (Bld) [Volum e fraction]Ordered By: Kirill Newell on 11-12-2023 Hematocrit (Bld) [Volume fraction] 37.1 % 37-47 [facility] - Chemistry and C hemistry - challengeOrdered By: Kirill Newell on 11-12-2023 ALP [Catalytic activity/Vol] 110 U/L 45-117 [facility] ALT [Catalytic activity/Vol] 21 U/L 13-56 [facility] CO2 [Moles/Vol] 28.0 mmol/L 21.0-32.0 [facility] Globulin (S) [Mass/Vol] 5.5 g/dL 2.2-4.2 [facility] Urea nitrogen/Creatinine [Mass ratio] 19.0 mg/mg 10-20 [facility] - Hematology and Cell countsOrdered By: Kirill Newell on 11-12-2023 Erythrocyte distribution width (RBC) [Entitic vol] 51.8 fL 35.1-43.9 [facility] Erythrocyte distribution width (RBC) [Ratio] 15.9 % 11.6-14.6 [facility] MCH (RBC) [Entitic mass] 27.6 pg 27.0-32.0 [facility] MCHC Auto (RBC) [Mass/Vol]Or dered By: Kirill Newell on 11-12-2023 MCHC (RBC) [Mass/Vol] 31.0 g/dL 32-36 [facility] No Panel InformationOrdered By: Kirill Newell on 11-12-2023 Addendum Document Comment . [facility] Comment on above: The SPE pattern demo nstrates elevation of regionscontaining acute phase proteins suggesting anacute/subacute inflammatory response. Some conditions inwhich this pattern has been observed include: bacterial,viral or parasitic infection; mechanical, physical orchemical trauma; and cardiac failure. The gamma globulinregion is unremarkable and evidence of monoclonal proteinis not apparent.Performed at: [employer] [facility] [address] [id number] Director: Ha Gutierrez PhD, Phone: [phone] Mlqje-4-Hcjnkdbcs 0.4 g/dL 0.0-0.4 [facility] Ywdbs-4-Wnbiivekp 1.2 g/dL 0.4-1.0 [facility] Anti-Nuclear Antibody Screen Negative Negative [facility] Comment on above: Performed at: [employer] [facility] [address] [id number] Director: Ha Gutierrez PhD, Phone: [phone] Estimated GFR (MDRD) Amer 86 mL/min >60 [facility] Comment on above: GFR Calc Estimated GFR (MDRD) Non-Af Amer 71 mL/min >60 [facility] Comment on above: Non- GFR Calc Gamma Globulins 1.8 g/dL 0.4-1.8 [facility] Parathyroid Hormone (Intact) 69.9 pg/mL 18.4-80.1 [facility] Urine Microalbumin/Creatinine Ratio 70.0 mg/g CRE <30 [facility] Vitamin D 25-Hydroxy 37.3 ng/mL [facility] Comment on above: Vitamin D 25(OH) Sta tus Range Deficiency <20 ng/mL (50nmol/L) Insufficiency 20 - 30 ng/mL (50 - 75 nmol/L) Sufficiency 30 - 100 ng/mL (75 - 250 nmol/L) Toxicity >100 ng/mL (>250 nmol/L) Platelets bldOrdered By: Theresa Newell on 11-12-2023 Platelets (Bld) [#/Vol] 272 10*3/uL 150-450 [facility] Protein Fractions Elph [Inte rp]Ordered By: Kirill Newell on 11-12-2023 Protein Fractions [Interp] Comment . [facility] Comment on above: Protein electrophore sis scan will follow via computer,mail, or nurse recruiter delivery. Serum albumin to globulin ra allen by protein electrophoresisOrdered By: Kirill Newell on 11-12-2023 Albumin/Globulin Elph [Mass ratio] 0.7 0.7-1.7 [facility] Serum globulin measurement ( mass/volume)Ordered By: Kirill Newell on 11-12-2023 Globulin (S) [Mass/Vol] 4.6 g/dL 2.2-3.9 [facility] Serum or plasma C reactive p rotein measurement (mass/volume)Ordered By: Kirill Newell on 11-12-2023 CRP [Mass/Vol] 15.50 mg/L 0.0-3.0 [facility] Comment on above: C-Reactive Protein ( CRP) provides useful information for thediagnosis, therapy and monitoring of inflammatory processesand associated diseases. For the evaluation of Relative Riskfor Cardiovascular Disease, a High Sensitivity CRP (HSCRP)should be ordered. Serum or plasma albumin erasmo urement (mass/volume)Ordered By: Kirill Newell on 11-12-2023 Albumin [Mass/Vol] 3.2 g/dL 2.9-4.4 [facility] Serum or plasma albumin/glob ulin mass ratioOrdered By: Kirill Newell 11-12-2023 Albumin/Globulin [Mass ratio] 0.6 {ratio} 0.9-2.4 [facility] Serum or plasma beta globuli n measurement by electrophoresis (mass/volume)Ordered By: Kirill Newell 11-12-2023 Beta globulin Elph [Mass/Vol] 1.2 g/dL 0.7-1.3 [facility] Serum or plasma calcium erasmo urement (mass/volume)Ordered By: Kirill Newell 11-12-2023 Calcium [Mass/Vol] 9.1 mg/dL 8.5-10.1 [facility] Serum or plasma creatinine m easurement (mass/volume)Ordered By: Kirill Newell on 11-12-2023 Creatinine [Mass/Vol] 0.84 mg/dL 0.55-1.02 [facility] Comment on above: The validity of the calculated GFR & GFRAA in patients over 70 years has not been determined. Clinical correlation is essential. Serum or plasma protein mono clonal measurement by electrophoresis (mass/volume)Ordered By: Kirill Newell on 11-12-2023 Protein.monoclonal Elph [Mass/Vol] Not Observed g/dL Not Observed [facility] Serum or plasma urea nitroge n measurement (mass/volume)Ordered By: Kirill Newell on 11-12-2023 Urea nitrogen [Mass/Vol] 16 mg/dL 7-18 [facility] Serum rheumatoid factor dete ctionOrdered By: Kirill Newell on 11-12-2023 Rheumatoid factor Ql (S) < 10.0 IU/mL <15 [facility] Thin prep Papanicolaou smear with manual screeningOrdered By: Kirill Newell on 11-12-2023 Thin prep Papanicolaou smear with manual screening 26 U/L 15-37 [facility] Thin prep Papanicolaou smear with manual screening 5 5-15 [facility] Thin prep Papanicolaou smear with manual screening 156.0 mg/L NO RANGE EST. [facility] Total protein bloodOrdered B y: Kirill Newell on 11-12-2023 Protein [Mass/Vol] 7.8 g/dL 6.0-8.5 [facility] Urine creatinine measurement (mass/volume)Ordered By: Kirill Newell on 11-12-2023 Creatinine (U) [Mass/Vol] 223.00 mg/dL NO RANGE EST. [facility] Whole blood hemoglobin A1c/t otal hemoglobin ratio (mass fraction)Ordered By: Kirill Newell on 11-12-2023 HbA1c (Bld) [Mass fraction] 5.7 % 3.8-5.6 [facility] Comment on above: Normal < 5.7 [...] right knee. The right knee shows severe hmhe-fp-ikod narrowing with endplate sclerosis and endplate osteophytes and about 7 mm of lateral subluxation of the tibial plateau in relationship to the distal femur associated with varus angulation of the knee. There are osteophytes along the lateral joint compartment and siiirnoo-el-bnzjxy arthritic changes of the patellofemoral joint. There is likely a small suprapatellar joint effusion. No acute fracture is identified. Total left knee arthroplasty is in place. No radiographic signs of hardware complications. IMPRESSION: 1. Tricompartmental degenerative changes of the right knee, including severe qdoo-rv-diqd osteoarthritis of the medial joint compartment with varus angulation. 2. No acute osseous abnormalities identified. [employer] Workstation ID: [id number] Dictated by: YOSELYN PETE on ThuSep 15, 2023 10:04:15 AM EDT Transcribed by: GERALD DYER on ThuSep 15, 2023 10:28:27 AM EDT Finalized by: YOSELYN PETE on ThuSep 15, 2023 2:48:38 PM EDT Normal [facility] Comment on above: Order Comment: Injur y/Trauma or Illness?:Illness/Other How long have you had these symptoms (acute/chronic)?:Chronic Reason for exam?:pain History of cancer?:/ / Surgeries, chemotherapy, or radiation?:/ Type of Exam?:Initial Additional signs and symptoms?:na ECG 12 Leadon 01-21-2023 Atrial Rate [facility] [place] [facility] P-R Interval [facility] Q-T Interval [facility] Q-T Interval (corrected) [facility] QRS Duration [facility] QTC Calculation (Bezet) [facility] [place] [facility] [place] [facility] ECHOCARDIOGRAM COMPLETEon ECHOCARDIOGRAM COMPLETE Patient Info Name: VICKIE GONZALEZ Age: 67 years : 1955 Gender: Female Ht: 167 cm Wt: 105 kg BSA: 2.26 m2 HR: 1 bpm BP: 157 / 89 mmHg Technical Quality: Fair Exam Date: 01/21/2023 9:06 AM Patient Status: Outpatient Torch Straightener: Shirin Rabago, MILLER, RDCS (PE, AE) Exam Type: ECHOCARDIOGRAM COMPLETE Study Info Indications - Valve disease/murmur Attending Physician: ANGELICA RANDALL Referring Physician: [id number]; [id number] BMI: 37.73 kg/m2 Summary 1. Left ventricular [...] Value Normal - PV Regurgitation Doppler - IL Peak End Diastolic Velocity 128 cm/s Mitral Valve - Name Value Normal - MV Doppler - MV Peak Velocity 1. (more content not included)... [facility] ECG 12 LeadOrdered By: Virginie Guerra on 02-19-2022 Atrial Rate [facility] [place] [facility] P-R Interval [facility] Q-T Interval [facility] Q-T Interval (corrected) [facility] QRS Duration [facility] QTC Calculation (Bezet) [facility] [place] [facility] [place] [facility] Ventricular Rate [facility] Basic metabolic 2000 panelon 01-22-2022 Anion gap [Moles/Vol] 15 mmol/L 10 - 2 0 mmol/L [facility] Calcium [Mass/Vol] 8.8 mg/dL 8.4 - 10. 2 mg/dL [facility] Chloride [Moles/Vol] 104 mmol/L 98 - 10 8 mmol/L [facility] Creatinine [Mass/Vol] 0.75 mg/dL 0.60 - 1.20 [facility] GFR/1.73 sq M.predicted CKD-EPI (S/P/Bld) [Vol rate/Area] 83 >=60 mL/min/1.73 m2 [facility] Glucose [Mass/Vol] 90 mg/dL 65 - 99 mg/dL [facility] HCO3 [Moles/Vol] 24 mmol/L 21 - 32 mmol/L [facility] Interpretation and review of laboratory results Normal [facility] Potassium [Moles/Vol] 4.3 mmol/L 3.5 - 5.1 mmol/L [facility] Sodium [Moles/Vol] 139 mmol/L 135 - 145 mmol/L [facility] Urea nitrogen [Mass/Vol] 10 mg/dL 8 - 25 mg/d L [facility] Urea nitrogen/Creatinine [Mass ratio] 13.3 mg/mg [facility] The eGFR should be u sed for monitoring renal function only and not for medication dosing. [facility] CBC panel Auto (Bld)on 01-22 Erythrocyte distribution width (RBC) [Entitic vol] 15.9 % High 11.6 - 14.8 % [facility] Hematocrit (Bld) [Volume fraction] 33.2 % Low 36.0 - 46.0 % [facility] Hemoglobin (Bld) [Mass/Vol] 10.4 g/dL Low 12.0 - 16.0 g/dL [facility] Interpretation and review of laboratory results Abnormal [facility] MCH (RBC) [Entitic mass] 27.2 pg 26. 0 - 34.0 pg [facility] MCHC (RBC) [Mass/Vol] 31.3 g/dL 31.0 - 37.0 g/dL [facility] MCV (RBC) [Entitic vol] 86.9 fL 80.0 - 100.0 fL [facility] Nucleated RBC (Bld) [#/Vol] 0.00 10*3/uL [facility] Nucleated RBC/100 WBC (Bld) [Ratio] 0.0 % [facility] Platelet mean volume (Bld) [Entitic vol] 11.9 fL 9.4 - 12.4 fL [facility] Platelets (Bld) [#/Vol] 176 10*3/uL [facility] RBC (Bld) [#/Vol] 3.82 10*6/uL Low [facility] WBC (Bld) [#/Vol] 5.53 10*3/uL [facility] ECG 12 Leadon 01-22-2022 Atrial Rate 65 BPM [facility] [place] 64 degrees [facility] P-R Interval 300 ms [facility] Q-T Interval 444 ms [facility] QRS Duration 94 ms [facility] QTC Calculation (Bezet) 461 ms [facility] [place] 10 degrees [facility] [place] 90 degrees [facility] Ventricular Rate 65 BPM [facility] Sinus rhythm with 1s t degree AV block Otherwise normal ECG Confirmed by SONA SEGURA MD ([id number]) on 01/22/2022 9:10:34 AM MUSE [facility] Atrial Rate 64 BPM [facility] [place] 48 degrees [facility] P-R Interval 272 ms [facility] Q-T Interval 438 ms [facility] QRS Duration 96 ms [facility] QTC Calculation (Bezet) 451 ms [facility] [place] 34 degrees [facility] [place] 89 degrees [facility] Ventricular Rate 64 BPM [facility] Sinus rhythm with 1s t degree AV block Nonspecific T wave abnormality Abnormal ECG When compared with ECG of 21-JAN-2022 12:50, (unconfirmed) No significant change was found Confirmed by SONA SEGURA MD ([id number]) on 01/22/2022 9:08:00 AM MUSE [facility] APTTon 01-21-2022 aPTT Coag (Bld) [Time] 29 s [facility] Basic metabolic 2000 panelon 01-21-2022 Anion gap [Moles/Vol] 16 mmol/L 10 - 2 0 mmol/L [facility] Calcium [Mass/Vol] 8.5 mg/dL 8.4 - 10. 2 mg/dL [facility] Chloride [Moles/Vol] 106 mmol/L 98 - 10 8 mmol/L [facility] Creatinine [Mass/Vol] 0.67 mg/dL 0.60 - 1.20 [facility] GFR/1.73 sq M.predicted CKD-EPI (S/P/Bld) [Vol rate/Area] 91 >=60 mL/min/1.73 m2 [facility] Glucose [Mass/Vol] 110 mg/dL High 65 - 99 mg/dL [facility] HCO3 [Moles/Vol] 21 mmol/L 21 - 32 mmol/L [facility] Interpretation and review of laboratory results Abnormal [facility] Potassium [Moles/Vol] 3.9 mmol/L 3.5 - 5.1 mmol/L [facility] Sodium [Moles/Vol] 139 mmol/L 135 - 145 mmol/L [facility] Urea nitrogen [Mass/Vol] 14 mg/dL 8 - 25 mg/d L [facility] Urea nitrogen/Creatinine [Mass ratio] 20.9 mg/mg High [facility] The eGFR should be u sed for monitoring renal function only and not for medication dosing. [facility] Basic metabolic 2000 panelOr dered By: Marcial Thomas on 01-21-2022 Anion gap [Moles/Vol] 17 mmol/L 10 - 2 0 mmol/L [facility] Calcium [Mass/Vol] 8.9 mg/dL 8.4 - 10. 2 mg/dL [facility] Chloride [Moles/Vol] 106 mmol/L 98 - 10 8 mmol/L [facility] Creatinine [Mass/Vol] 0.77 mg/dL 0.60 - 1.20 [facility] GFR/1.73 sq M.predicted CKD-EPI (S/P/Bld) [Vol rate/Area] 80 >=60 mL/min/1.73 m2 [facility] Glucose [Mass/Vol] 94 mg/dL 65 - 99 mg/dL [facility] HCO3 [Moles/Vol] 23 mmol/L 21 - 32 mmol/L [facility] Interpretation and review of laboratory results Normal [facility] Potassium [Moles/Vol] 4.2 mmol/L 3.5 - 5.1 mmol/L [facility] Comment on above: Slightly Hemolyzed Sodium [Moles/Vol] 142 mmol/L 135 - 145 mmol/L [facility] Urea nitrogen [Mass/Vol] 14 mg/dL 8 - 25 mg/d L [facility] Urea nitrogen/Creatinine [Mass ratio] 18.2 mg/mg [facility] The eGFR should be u sed for monitoring renal function only and not for medication dosing. [facility] CBC panel Auto (Bld)on 01-21 Erythrocyte distribution width (RBC) [Entitic vol] 15.7 % High 11.6 - 14.8 % [facility] Hematocrit (Bld) [Volume fraction] 32.7 % Low 36.0 - 46.0 % [facility] Hemoglobin (Bld) [Mass/Vol] 10.2 g/dL Low 12.0 - 16.0 g/dL [facility] Interpretation and review of laboratory results Abnormal [facility] MCH (RBC) [Entitic mass] 27.1 pg 26. 0 - 34.0 pg [facility] MCHC (RBC) [Mass/Vol] 31.2 g/dL 31.0 - 37.0 g/dL [facility] MCV (RBC) [Entitic vol] 86.7 fL 80.0 - 100.0 fL [facility] Nucleated RBC (Bld) [#/Vol] 0.00 10*3/uL [facility] Nucleated RBC/100 WBC (Bld) [Ratio] 0.0 % [facility] Platelet mean volume (Bld) [Entitic vol] 11.7 fL 9.4 - 12.4 fL [facility] Platelets (Bld) [#/Vol] 173 10*3/uL [facility] RBC (Bld) [#/Vol] 3.77 10*6/uL Low [facility] WBC (Bld) [#/Vol] 6.65 10*3/uL [facility] Calcium, Ionizedon 2 Calcium.ionized [Mass/Vol] 4.6 mg/dL 4.5 - 5.3 mg/dL [facility] Calcium.ionized [Mass/Vol]on 01-21-2022 Interpretation and review of laboratory results Normal [facility] Echocardiogram limited with contrastOrdered By: Nicol Pittman on 01-21-2022 AV mean gradient 5 mmHg [facility] Work Phone: [facility] Work Phone: Echocardiogram limited with contraston 01-21-2022 Patient Info Name: VICKIE GONZALEZ Age: 66 years : 1955 Gender: Female Ht: 168 cm Wt: 102 kg BSA: 2.22 m2 BP: 144 / 57 mmHg Technical Quality: Fair Exam Date: 01/21/2022 12:12 PM Patient Status: Outpatient Torch Straightener: Jolanta Klein RDCS, ЮЛИЯ Exam Type: ECHOCARDIOGRAM LIMITED WITH CONTRAST Study Info Indications - INTRAOP TAVR Attending Physician: LINDSEY PLUMMER Referring Physician: [id number] Chase; [id number] BMI: 36.32 kg/m2 Summary 1. Limited two-dimensional, [...] Date: 01/21/2022 12:12 PM Patient Status: Outpatient Torch Straightener: Jolanta Klein RDCS, ЮЛИЯ Exam Type: ECHOCARDIOGRAM LIMITED WITH CONTRAST Study Info Indications - INTRAOP TAVR Attending Physician: LINDSEY PLUMMER Referring Physician: [id number]; [id number] BMI: 36.32 kg/m2 Summary 1. Limited two-dimensional, [...] Nicol Pittman DO on 01/21/2022 04:13 PM [facility] Radiology Study observation (narrative) [facility] INR Coag (PPP) [Relative shandra e]on 01-21-2022 Interpretation and review of laboratory results Abnormal [facility] PT Coag (PPP) [Time] 15.5 s [facility] During the induction phase of oral anticoagulation, the INR may not reflect the anticoagulation status of the patient. Therapeutic ranges for INR's are: Most clinical situations: INR 2.0-3.0 Mechanical Prosthetic Valve: INR 2.5-3.5 Critical: INR >5.0 [facility] Laboratory - Blood bankon ABO and Rh group Nom (Bld) 5100 [facility] ABO and Rh group Nom (Bld) Blood group O Rh(D) positive [facility] Magnesiumon 01-21-2022 Magnesium [Mass/Vol] 1.8 mg/dL 1.6 - 2 .4 mg/dL [facility] Magnesium [Mass/Vol]on 01-21 Interpretation and review of laboratory results Normal [facility] No Panel Informationon 01-21 [facility] Cross Match Compatible [facility] Product Code [id number] [facility] Product ID Red Blood Cells [facility] Status Info Ready [facility] POC Venous Blood Gas Panel-P ulmon 01-21-2022 Base excess Calc (BldV) [Moles/Vol] -1.1000 mmol/L [facility] Breath rate setting Ventilator synchronized intermittent mandatory 0 [facility] Calcium.ionized [Mass/Vol] 4.8 mg/dL 4.5 - 5.3 mg/dL [facility] Carboxyhemoglobin (BldA) [Mass fraction] 1.5 <=1.5 % of total Hb [facility] Comment on above: Reference Ranges: [facility] [place] Non-smokers: <1.5% Smokers: 1.5-5.0% Heavy Smokers: 5.0-9.0% Chloride [Moles/Vol] 109 mmol/L High 98 - 10 8 mmol/L [facility] CO2 (BldV) [Partial pressure] 47.4 mm[Hg] [facility] Glucose [Mass/Vol] 109 mg/dL High 65 - 99 mg/dL [facility] HCO3 (Bld) [Moles/Vol] 25.0 mmol/L 24.0 - 28.0 mmol/L [facility] Hematocrit (BldA) [Volume fraction] 29.7 % Low 36.0 - 46.0 % [facility] Hemoglobin (Bld) [Mass/Vol] 9.7 g/dL Low 12.0 - 16.0 g/dL [facility] Inhaled oxygen concentration 0 % [facility] Interpretation and review of laboratory results Abnormal [facility] Lactate [Moles/Vol] 0.4 mmol/L Low 0.6 - 2. 0 mmol/L [facility] Methemoglobin (BldA) [Mass fraction] <1.0 0.0 - 2.0 % [facility] Oxygen (BldV) [Partial pressure] 39 mm[Hg] [facility] Oxygen saturation in Venous blood 69.2 % 40.0 - 70.0 % [facility] Oxyhemoglobin (BldA) [Mass fraction] 67.8 % No established reference range [facility] pH (BldV) 7.33 [pH] [facility] Potassium [Moles/Vol] 3.6 mmol/L 3.5 - 5.1 mmol/L [facility] Result Notification critical results giv en to treating OR anesthesiolo [facility] Sodium [Moles/Vol] 143 mmol/L 135 - 145 mmol/L [facility] Tidal volume setting Ventilator 0 [facility] PT/INRon 01-21-2022 INR Coag (PPP) [Relative time] 1.3 {INR} High [facility] Potassium Levelon 01-21-2022 Potassium [Moles/Vol] 4.5 mmol/L 3.5 - 5.1 mmol/L [facility] Potassium [Moles/Vol]on 01-01 Interpretation and review of laboratory results Normal [facility] Prepare RBC: 4 Unitson 01-21 Product Code [id number] [facility] Unit Number [id number] [facility] Unit Number [id number] [facility] Unit Number [id number] [facility] Unit Number [id number] [facility] XR Chest 1 Viewon 01-21-2022 Status post TAVR Cardiomegaly pulmonary vascular congestion and edema Workstation ID: [id number] EXAMINATION: ONE XRAY VIEW OF THE CHEST [...] pulmonary vascular congestion and edema Workstation ID: [id number] [facility] Radiology Study observation (narrative) [facility] XR Chest 1 ViewOrdered By: Malachi Shirley on 01-21-2022 [facility] Work Phone: aPTT Coag (Bld) [Time]on Interpretation and review of laboratory results Normal [facility] Therapeutic range fo r APTT's is 68 - 104 seconds [facility] ECG 12 LeadOrdered By: Virginie Guerra on 01-09-2022 Atrial Rate [facility] [place] [facility] P-R Interval [facility] Q-T Interval [facility] Q-T Interval (corrected) [facility] QRS Duration [facility] QTC Calculation (Bezet) [facility] [place] [facility] [place] [facility] Ventricular Rate [facility] COVID-19, MolecularOrdered B y: Nasreen Jenkins on 01-07-2022 SARS-CoV-2 (COVID-19) RNA MAXIMUS+probe Ql (Resp) Not detected Not Detected [facility] Comment on above: This test was [...] at the following links: For Healthcare Providers: https://www.fda.gov/media/793334/download For Patients: https://www.fda.gov/media/338635/download SARS-CoV-2 (COVID-19) RNA NA A+probe Ql (Resp)Ordered By: Nasreen Jenkins on 01-07-2022 Interpretation and review of laboratory results Normal [facility] ECG 12-LEADOrdered By: Blaine Silveira on 06-10-2021 Atrial Rate [facility] [place] [facility] P-R Interval [facility] Q-T Interval [facility] Q-T Interval (corrected) [facility] QRS Duration [facility] QTC Calculation (Bezet) [facility] [place] [facility] [place] [facility] Ventricular Rate [facility] Atrial Rate [facility] [place] [facility] P-R Interval [facility] Q-T Interval [facility] Q-T Interval (corrected) [facility] QRS Duration [facility] QTC [facility] (Bezet) [facility] [place] [facility] [place] [facility] Ventricular Rate [facility] ECHOCARDIOGRAM COMPLETEon Transthoracic Echocardiogram _ Patient: CARLOS Sykes [facility] Rec#: [id number] (Age): 1955(63y) Height: 167.64(cm)/65(i Study Date: 06/14/2019 Weight: 120.66(kg)/265( Room#: BSA: [id number] Type: Loc: Sex: F _ Reading: Silvio Mckeon MD F Referring: BLAINE SILVEIRA L. Torch Straightener: Angelica Lynne RDCS, RVT History: Aortic Valve [...] at 06/14/2019 16:22:40 by: Silvio Mckeon MD [facility], Rad In [facility] - 06/14/2019 4:29 PM EDT Transthoracic Echocardiogram _ Patient: CARLOS Sykes [facility] Rec#: [id number] (Age): 1955(63y) Height: 167.64(cm)/65(i Study Date: 06/14/2019 Weight: 120.66(kg)/265( Room#: BSA: [id number] Type: Loc: Sex: F _ Reading: Silvio Mckeon MD F Referring: BLAINE SILVEIRA L. Torch Straightener: Angelica Lynne [facility], RVT History: Aortic Valve disorder. [...] at 06/14/2019 16:22:40 by: Silvio Mckeon MD [facility] ECG 12-LEADon 06-06-2019 Atrial Rate [facility] [place] [facility] P-R Interval [facility] Q-T Interval [facility] Q-T Interval (corrected) [facility] QRS Duration [facility] QTC Calculation (Bezet) [facility] [place] [facility] [place] [facility] Ventricular Rate [facility] Echocardiogram completeon Echocardiogram complete Transthoracic Echocardiogram _ Patient: CARLOS Sykes [facility] Rec#: [id number] (Age): 1955(62y) Height: 167.64(cm)/65(i Study Date: 01/05/2018 Weight: 109.77(kg)/241( Room#: BSA: [id number] Type: Outpatient Loc: Sex: F _ Reading: Iliana Gomez M.D. Referring: BLAINE SILVEIRA L. Torch Straightener: Angelica Lynne [facility], RVT History: Aortic Valve disorder. [...] by: Iliana Gomez M.D. Invalid Interpretation Code [facility] Echocardiogram complete Interface, Rad I n Heartlab Xper Echopacs - 01/05/2018 2:56 PM EST Transthoracic Echocardiogram _ Patient: CARLOS Sykes [facility] Rec#: [id number] (Age): 1955(62y) Height: 167.64(cm)/65(i Study Date: 01/05/2018 Weight: 109.77(kg)/241( Room#: BSA: [id number] Type: Outpatient Loc: Sex: F _ Reading: Iliana Gomez M.D. Referring: BLAINE SILVEIRA L. Torch Straightener: Angelica Lynne [facility], RVT History: Aortic Valve disorder. [...] by: Iliana Gomez M.D. Invalid Interpretation Code [facility] Vital Signs Date Time Vital Sign Value Performing Clinician Facility 02-12-2024 11:18-0400 Body temperature 98.1 [degF] Kendall Graff PT [facility] 02-12-2024 11:18-0400 Diastolic blood pressure 79 mm[Hg] Kendall Graff PT [facility] 02-12-2024 11:18-0400 Heart rate 78 /min Kendall Graff PT [facility] 02-12-2024 11:18-0400 Respiratory rate 16 /min Kendall Graff PT [facility] 02-12-2024 11:18-0400 SaO2% (BldA) [Mass fraction] 98 % Kendall Graff PT [facility] 02-12-2024 11:18-0400 Systolic blood pressure 124 mm[Hg] Kendall Graff PT [facility] 02-11-2024 08:58-0400 Body temperature 98.8 [degF] Lindsey Centeno RN [facility] 02-11-2024 08:58-0400 Diastolic blood pressure 78 mm[Hg] Lindsey Centeno RN [facility] 02-11-2024 08:58-0400 Heart rate 62 /min Lindsey Centeno RN [facility] 02-11-2024 08:58-0400 Respiratory rate 16 /min Lindsey Villalobososs RN [facility] 02-11-2024 08:58-0400 SaO2% (BldA) [Mass fraction] 99 % Lindsey Villalobososs RN [facility] 02-11-2024 08:58-0400 Systolic blood pressure 132 mm[Hg] Lindsey Centeno RN [facility] 02-10-2024 09:59-0400 Body temperature 97.81 [degF] Cristhian Byrnes [facility] 02-10-2024 09:59-0400 Diastolic blood pressure 70 mm[Hg] Cristhian Thrush [facility] 02-10-2024 09:59-0400 Heart rate 66 /min Cristhian Thrush [facility] 02-10-2024 09:59-0400 Respiratory rate 15 /min Cristhian Thrush [facility] 02-10-2024 09:59-0400 SaO2% (BldA) [Mass fraction] 97 % Cristhian Byrnes [facility] 02-10-2024 09:59-0400 Systolic blood pressure 118 mm[Hg] Cristhian Byrnes [facility] 02-09-2024 09:21-0400 Body temperature 98.2 [degF] Lisa Odell [facility] 02-09-2024 09:21-0400 Diastolic blood pressure 80 mm[Hg] Lisa Odell [facility] 02-09-2024 09:21-0400 Heart rate 85 /min Lisa Odell [facility] 02-09-2024 09:21-0400 Respiratory rate 16 /min Lisa Odell [facility] 02-09-2024 09:21-0400 SaO2% (BldA) [Mass fraction] 98 % Lisa Odell [facility] 02-09-2024 09:21-0400 Systolic blood pressure 142 mm[Hg] Lisa Odell [facility] 02-08-2024 10:30-0400 Body temperature 97.9 [degF] Cristhian Byrnes [facility] 02-08-2024 10:30-0400 Diastolic blood pressure 70 mm[Hg] Cristhian Byrnes [facility] 02-08-2024 10:30-0400 Heart rate 67 /min Cristhian Floresush [facility] 02-08-2024 10:30-0400 Respiratory rate 16 /min Cristhian Floresush [facility] 02-08-2024 10:30-0400 SaO2% (BldA) [Mass fraction] 97 % Cristhian Byrnes [facility] 02-08-2024 10:30-0400 Systolic blood pressure 118 mm[Hg] Cristhian Byrnes [facility] 02-05-2024 10:44-0500 Body temperature 98.49 [degF] Lisa Odell [facility] 02-05-2024 10:44-0500 Diastolic blood pressure 82 mm[Hg] Lisa Odell [facility] 02-05-2024 10:44-0500 Heart rate 77 /min Lisa Odell [facility] 02-05-2024 10:44-0500 Respiratory rate 16 /min Lisa Odell [facility] 02-05-2024 10:44-0500 SaO2% (BldA) [Mass fraction] 98 % Lisa Odell [facility] 02-05-2024 10:44-0500 Systolic blood pressure 150 mm[Hg] Lisa Odell [facility] 02-05-2024 10:09-0500 Body temperature 98.2 [degF] Cristhian Byrnes [facility] 02-05-2024 10:09-0500 Diastolic blood pressure 88 mm[Hg] Cristhian Byrnes [facility] 02-05-2024 10:09-0500 Heart rate 67 /min Cristhian Byrnes [facility] 02-05-2024 10:09-0500 Respiratory rate 15 /min Cristhian Byrnes [facility] 02-05-2024 10:09-0500 SaO2% (BldA) [Mass fraction] 97 % Cristhian Byrnes [facility] 02-05-2024 10:09-0500 Systolic blood pressure 150 mm[Hg] Cristhian Byrnes [facility] 02-03-2024 14:06-0500 Body temperature 97.59 [degF] Siena Rondon RN [facility] 02-03-2024 14:06-0500 Diastolic blood pressure 84 mm[Hg] Siena Rondon RN [facility] 02-03-2024 14:06-0500 Heart rate 76 /min Siena Rondon RN [facility] 02-03-2024 14:06-0500 Respiratory rate 18 /min Siena Rondon RN [facility] 02-03-2024 14:06-0500 SaO2% (BldA) [Mass fraction] 99 % Siena Rondon RN [facility] 02-03-2024 14:06-0500 Systolic blood pressure 130 mm[Hg] Siena Rondon RN [facility] 02-03-2024 12:32-0500 Body temperature 97.3 [degF] Cristhian Byrnes [facility] 02-03-2024 12:32-0500 Diastolic blood pressure 83 mm[Hg] Cristhian Floresush [facility] 02-03-2024 12:32-0500 Heart rate 70 /min Cristhian Floresush [facility] 02-03-2024 12:32-0500 Respiratory rate 15 /min Cristhian Floresush [facility] 02-03-2024 12:32-0500 SaO2% (BldA) [Mass fraction] 99 % Cristhian Byrnes [facility] 02-03-2024 12:32-0500 Systolic blood pressure 145 mm[Hg] Cristhian Floresush [facility] 02-01-2024 11:30-0500 Body temperature 98.1 [degF] Cristhian Floresush [facility] 02-01-2024 11:30-0500 Diastolic blood pressure 88 mm[Hg] Cristhian Floresush [facility] 02-01-2024 11:30-0500 Heart rate 70 /min Cristhian Floresush [facility] 02-01-2024 11:30-0500 Respiratory rate 15 /min Cristhian Byrnes [facility] 02-01-2024 11:30-0500 SaO2% (BldA) [Mass fraction] 98 % Cristhian Byrnes [facility] 02-01-2024 11:30-0500 Systolic blood pressure 148 mm[Hg] Cristhian Byrnes [facility] 01-28-2024 12:52-0500 Body temperature 98.6 [degF] Kendall Graff PT [facility] 01-28-2024 12:52-0500 Diastolic blood pressure 73 mm[Hg] Kendall Graff PT [facility] 01-28-2024 12:52-0500 Heart rate 69 /min Kendall Graff PT [facility] 01-28-2024 12:52-0500 Respiratory rate 16 /min Kendall Graff PT [facility] 01-28-2024 12:52-0500 SaO2% (BldA) [Mass fraction] 99 % Kendall Graff PT [facility] 01-28-2024 12:52-0500 Systolic blood pressure 142 mm[Hg] Kendall Graff PT [facility] 01-27-2024 10:42-0500 Body temperature 98.6 [degF] Siena Rondon RN [facility] 01-27-2024 10:42-0500 Diastolic blood pressure 82 mm[Hg] Siena Rondon RN [facility] 01-27-2024 10:42-0500 Heart rate 75 /min Siena Rondon RN [facility] 01-27-2024 10:42-0500 Respiratory rate 16 /min Siena Rondon RN [facility] 01-27-2024 10:42-0500 SaO2% (BldA) [Mass fraction] 96 % Siena Rondon RN [facility] 01-27-2024 10:42-0500 Systolic blood pressure 144 mm[Hg] Siena Rondon RN [facility] 01-15-2024 13:12-0500 Body height 167.6 cm Jass Pepe MD Work Phone: [facility] 01-15-2024 13:12-0500 Body mass index (BMI) [Ratio] 37.93 kg/m2 Jass Pepe MD Work Phone: [facility] 01-15-2024 13:12-0500 Body weight 106.59 kg Jass Pepe MD Work Phone: [facility] 01-15-2024 13:12-0500 Diastolic blood pressure 66 mm[Hg] Jass Pepe MD Work Phone: [facility] 01-15-2024 13:12-0500 Heart rate 82 /min Jass Pepe MD Work Phone: [facility] 01-15-2024 13:12-0500 Systolic blood pressure 143 mm[Hg] Jass Pepe MD Work Phone: [facility] 10-20-2023 13:34-0500 Diastolic blood pressure 91 mm[Hg] Blaine Silveira MD Work Phone: [facility] 10-20-2023 13:34-0500 Systolic blood pressure 156 mm[Hg] Blaine Silveira MD Work Phone: [facility] 10-20-2023 13:24-0500 Body height 170.2 cm Blaine Silveira MD Work Phone: [facility] 10-20-2023 13:24-0500 Body mass index (BMI) [Ratio] 37.28 kg/m2 Blaine Silveira MD Work Phone: [facility] 10-20-2023 13:24-0500 Body weight 107.96 kg Blaine Silveira MD Work Phone: [facility] 10-20-2023 13:24-0500 Heart rate 74 /min Blaine Silveira MD Work Phone: [facility] 10-20-2023 13:24-0500 SaO2% (BldA) [Mass fraction] 97 % Blaine Silveira MD Work Phone: [facility] 07-16-2023 09:42-0400 Body mass index (BMI) [Ratio] 36.3 kg/m2 [facility] 07-16-2023 09:42-0400 Body temperature 96.2 [degF] [facility] 07-16-2023 09:42-0400 Diastolic blood pressure 71 mm[Hg] [facility] 07-16-2023 09:42-0400 Heart rate 70 /min [facility] 07-16-2023 09:42-0400 Respiratory rate 16 /min [facility] 07-16-2023 09:42-0400 Systolic blood pressure 174 mm[Hg] [facility] 06-30-2023 00:20-0400 Body weight 102.05 kg [facility] 06-25-2023 10:45-0400 Body height 170.18 cm [facility] 06-25-2023 10:45-0400 Body mass index (BMI) [Ratio] 38.9 kg/m2 [facility] 06-25-2023 10:45-0400 Body temperature 98 [degF] [facility] 06-25-2023 10:45-0400 Body weight 113 kg [facility] 06-25-2023 10:45-0400 Diastolic blood pressure 85 mm[Hg] [facility] 06-25-2023 10:45-0400 Heart rate 74 /min [facility] 06-25-2023 10:45-0400 Respiratory rate 14 /min [facility] 06-25-2023 10:45-0400 SaO2% (BldA) [Mass fraction] 98 % [facility] 06-25-2023 10:45-0400 Systolic blood pressure 206 mm[Hg] [facility] 06-25-2023 09:48-0400 Body mass index (BMI) [Ratio] 36.3 kg/m2 [facility] 06-25-2023 09:48-0400 Body temperature 97 [degF] [facility] 06-25-2023 09:48-0400 Diastolic blood pressure 101 mm[Hg] [facility] 06-25-2023 09:48-0400 Heart rate 82 /min [facility] 06-25-2023 09:48-0400 Respiratory rate 20 /min [facility] 06-25-2023 09:48-0400 Systolic blood pressure 206 mm[Hg] [facility] 05-30-2023 01:32-0400 Body weight 102.05 kg [facility] 05-28-2023 09:48-0400 Body mass index (BMI) [Ratio] 36.3 kg/m2 [facility] 05-28-2023 09:48-0400 Body temperature 96.5 [degF] [facility] 05-28-2023 09:48-0400 Diastolic blood pressure 76 mm[Hg] [facility] 05-28-2023 09:48-0400 Heart rate 78 /min [facility] 05-28-2023 09:48-0400 Respiratory rate 18 /min [facility] 05-28-2023 09:48-0400 Systolic blood pressure 186 mm[Hg] [facility] 04-30-2023 00:46-0400 Body weight 102.05 kg [facility] 04-23-2023 09:49-0400 Body mass index (BMI) [Ratio] 36.3 kg/m2 [facility] 04-23-2023 09:49-0400 Diastolic blood pressure 101 mm[Hg] [facility] 04-23-2023 09:49-0400 Heart rate 73 /min [facility] 04-23-2023 09:49-0400 Systolic blood pressure 169 mm[Hg] [facility] 04-23-2023 09:23-0400 Body temperature 96.6 [degF] [facility] 04-23-2023 09:23-0400 Respiratory rate 18 /min [facility] 04-16-2023 08:58-0400 Body height 167.64 cm [facility] 04-16-2023 08:58-0400 Body weight 102.05 kg [facility] 01-21-2023 09:01-0500 Body height 167.6 cm Angelica Dye [employer]IC VIDEO PRODUCER Work Phone: [facility] 01-21-2023 09:01-0500 Body mass index (BMI) [Ratio] 38.76 kg/m2 Angelica Dye MUSIC VIDEO PRODUCER Work Phone: [facility] 01-21-2023 09:01-0500 Body temperature 98.01 [degF] Angelica Dye MUSIC VIDEO PRODUCER Work Phone: [facility] 01-21-2023 09:01-0500 Body weight 108.92 kg Angelica Dye MUSIC VIDEO PRODUCER Work Phone: [facility] 01-21-2023 09:01-0500 Diastolic blood pressure 84 mm[Hg] Angelica Dye MUSIC VIDEO PRODUCER Work Phone: [facility] 01-21-2023 09:01-0500 Heart rate 67 /min Angelica Dye MUSIC VIDEO PRODUCER Work Phone: [facility] 01-21-2023 09:01-0500 Respiratory rate 16 /min Angelica Dye MUSIC VIDEO PRODUCER Work Phone: [facility] 01-21-2023 09:01-0500 SaO2% (BldA) [Mass fraction] 98 % Angelica Dye [employer] V[employer] PRODUCER Work Phone: [facility] 01-21-2023 09:01-0500 Systolic blood pressure 198 mm[Hg] Angelica Dye MUSIC VIDEO PRODUCER Work Phone: [facility] 02-19-2022 11:13-0400 Diastolic blood pressure 85 mm[Hg] Angelica Dye MUS[employer] VIDEO PRODUCER Work Phone: [facility] 02-19-2022 11:13-0400 Systolic blood pressure 148 mm[Hg] Angelica Dye MUSIC VIDEO PRODUCER Work Phone: [facility] 02-19-2022 11:08-0400 Body height 167.6 cm Angelica Dye MUSIC VIDEO PRODUCER Work Phone: [facility] 02-19-2022 11:08-0400 Body mass index (BMI) [Ratio] 36.97 kg/m2 Angelica Dye MUSIC VIDEO PRODUCER Work Phone: [facility] 02-19-2022 11:08-0400 Body temperature 97.7 [degF] Angelica Dye MUSIC VIDEO PRODUCER Work Phone: [facility] 02-19-2022 11:08-0400 Body weight 103.9 kg Angelica Dye [employer]IC VIDEO PRODUCER Work Phone: [facility] 02-19-2022 11:08-0400 Heart rate 69 /min Angelica Dye [employer] V[employer] PRODUCER Work Phone: [facility] 02-19-2022 11:08-0400 Respiratory rate 16 /min Angelica Dye MUSIC VIDEO PRODUCER Work Phone: [facility] 02-19-2022 11:08-0400 SaO2% (BldA) [Mass fraction] 98 % Angelica Dye [employer] V[employer] PRODUCER Work Phone: [facility] 02-03-2022 09:56-0500 Body mass index (BMI) [Ratio] 35.51 kg/m2 Angelica Dye [employer] V[employer] PRODUCER Work Phone: [facility] 02-03-2022 09:56-0500 Body weight 99.79 kg Angelica Dye [employer] V[employer] PRODUCER Work Phone: [facility] 02-03-2022 09:56-0500 Diastolic blood pressure 80 mm[Hg] Angelica Dye MUS[employer] V[employer] PRODUCER Work Phone: [facility] 02-03-2022 09:56-0500 Systolic blood pressure 132 mm[Hg] Nagelica Dye MUSIC VIDEO PRODUCER Work Phone: [facility] 01-22-2022 07:52-0500 Body temperature 98.01 [degF] Lindsey Plummer MD Work Phone: [facility] 01-22-2022 07:52-0500 Diastolic blood pressure 84 mm[Hg] Lindsey Plummer MD Work Phone: [facility] 01-22-2022 07:52-0500 Heart rate 81 /min Lindsey Plummer MD Work Phone: [facility] 01-22-2022 07:52-0500 Respiratory rate 18 /min Lindsey Plummer MD Work Phone: [facility] 01-22-2022 07:52-0500 SaO2% (BldA) [Mass fraction] 98 % Lindsey Plummer MD Work Phone: [facility] 01-22-2022 07:52-0500 Systolic blood pressure 123 mm[Hg] Lindsey Plummer MD Work Phone: [facility] 01-22-2022 04:08-0500 Body mass index (BMI) [Ratio] 37.28 kg/m2 Lindsey Plummer MD Work Phone: [facility] 01-22-2022 04:08-0500 Body weight 104.78 kg Lindsey Plummer MD Work Phone: [facility] 01-21-2022 11:49-0500 Respiratory rate 0 /min Lindsey Plummer MD Work Phone: [facility] 01-21-2022 08:20-0500 Body height 167.6 cm Lindsey Plummer MD Work Phone: [facility] 01-09-2022 09:44-0500 Body height 167.6 cm Meir Arthur MD Work Phone: [facility] 01-09-2022 09:44-0500 Body mass index (BMI) [Ratio] 37.82 kg/m2 Meir Arthur MD Work Phone: [facility] 01-09-2022 09:44-0500 Body temperature 98.01 [degF] Meir Arthur MD Work Phone: [facility] 01-09-2022 09:44-0500 Body weight 106.3 kg Meir Arthur MD Work Phone: [facility] 01-09-2022 09:44-0500 Diastolic blood pressure 80 mm[Hg] Meir Arthur MD Work Phone: [facility] 01-09-2022 09:44-0500 Heart rate 78 /min Meir Arthur MD Work Phone: [facility] 01-09-2022 09:44-0500 Respiratory rate 18 /min Meir Arthur MD Work Phone: [facility] 01-09-2022 09:44-0500 SaO2% (BldA) [Mass fraction] 97 % Meir Arthur MD Work Phone: [facility] 01-09-2022 09:44-0500 Systolic blood pressure 143 mm[Hg] Meir Arthur MD Work Phone: [facility] 01-09-2022 09:36-0500 Body height 167.6 cm Lindsey Plummer MD Work Phone: [facility] 01-09-2022 09:36-0500 Body mass index (BMI) [Ratio] 37.82 kg/m2 Lindsey Plummer MD Work Phone: [facility] 01-09-2022 09:36-0500 Body temperature 98.01 [degF] Lindsey Plummer MD Work Phone: [facility] 01-09-2022 09:36-0500 Body weight 106.3 kg Lindsey Plummer MD Work Phone: [facility] 01-09-2022 09:36-0500 Diastolic blood pressure 80 mm[Hg] Lindsey Plummer MD Work Phone: [facility] 01-09-2022 09:36-0500 Heart rate 78 /min Lindsey Plummer MD Work Phone: [facility] 01-09-2022 09:36-0500 Respiratory rate 16 /min Lindsey Plummer MD Work Phone: [facility] 01-09-2022 09:36-0500 SaO2% (BldA) [Mass fraction] 97 % Lindsey Plummer MD Work Phone: [facility] 01-09-2022 09:36-0500 Systolic blood pressure 143 mm[Hg] Lindsey Plummer MD Work Phone: [facility] 06-10-2021 11:16-0400 Body height 167.6 cm Blaine Silveira MD Work Phone: [facility] 06-10-2021 11:16-0400 Body mass index (BMI) [Ratio] 36.8 kg/m2 Blaine Silveira MD Work Phone: [facility] 06-10-2021 11:16-0400 Body weight 103.42 kg Blaine Silveira MD Work Phone: [facility] 06-10-2021 11:16-0400 Diastolic blood pressure 73 mm[Hg] Blaine Silveira MD Work Phone: [facility] 06-10-2021 11:16-0400 Heart rate 73 /min Blaine Silveira MD Work Phone: [facility] 06-10-2021 11:16-0400 SaO2% (BldA) [Mass fraction] 98 % Blaine Silveira MD Work Phone: [facility] 06-10-2021 11:16-0400 Systolic blood pressure 148 mm[Hg] Blaine Silveira MD Work Phone: [facility] 06-06-2019 14:33-0400 BMI (Body Mass Index) 42.97 kg/m2 Blaine Silveira [facility] 06-06-2019 14:33-0400 Body weight 120.75 kg Blaine Silveira [facility] 06-06-2019 14:33-0400 BP Diastolic 75 mm[Hg] Blaine Silveira [facility] 06-06-2019 14:33-0400 BP Systolic 159 mm[Hg] Blaine Silveira [facility] 06-06-2019 14:33-0400 Height 167.6 cm Blaine Silveira [facility] 06-06-2019 14:33-0400 Pulse (Heart Rate) 71 /min Blaine Silveira [facility] 06-06-2019 14:33-0400 Pulse Oximetry 96 % Blaine Silveira [facility] Encounters Encounter Date Encounter Type Care Provider Facility Start: 12-19-2024 End: 12-19-2024 ambulatory Kirill Newell Facility:[facility] Start: 05-27-2024 ambulatory Kirill Newell Facility:[facility] Start: 05-27-2024 End: 05-27-2024 ambulatory Kirill Limestone Facility:[facility] Start: 03-25-2024 End: 03-29-2024 ambulatory JASS PEPE [facility] Ambulatory Start: 03-25-2024 End: 03-25-2024 Postop follow up visit related to original px Jass Pepe MD Work Phone: [facility] Comment on above: Status post total ri ght knee replacement (Primary Dx) Start: 03-11-2024 End: 03-15-2024 ambulatory [facility] Start: 03-11-2024 End: 03-11-2024 ambulatory Jass Pepe MD Work Phone: [facility] Comment on above: Status post total ri ght knee replacement (Primary Dx) Start: 03-09-2024 End: 03-13-2024 ambulatory JASS COLE [facility] Start: 03-09-2024 End: 03-09-2024 ambulatory Jass Pepe MD Work Phone: [facility] Comment on above: Status post total ri ght knee replacement (Primary Dx) Start: 03-07-2024 End: 03-11-2024 ambulatory [facility] Start: 03-07-2024 End: 03-07-2024 ambulatory Jass Pepe MD Work Phone: [facility] Comment on above: Status post total ri ght knee replacement (Primary Dx) Start: 03-04-2024 End: 03-08-2024 [facility] Start: 03-04-2024 End: 03-04-2024 ambulatory Jass Pepe MD [facility] Comment on above: Status post total ri ght knee replacement (Primary Dx) Start: 03-02-2024 End: 03-06-2024 [facility] Start: 03-02-2024 End: 03-02-2024 ambulatory Jass Pepe MD Work Phone: [facility] Comment on above: Status post total ri ght knee replacement (Primary Dx) Start: 02-29-2024 End: 03-04-2024 [facility] Start: 02-29-2024 End: 02-29-2024 ambulatory Jass Pepe MD Work Phone: [facility] Comment on above: Status post total ri ght knee replacement (Primary Dx) Start: 02-26-2024 End: 03-01-20[facility] J[facility] MALDONADO [facility] Start: 02-26-2024 End: 02-26-2024 ambulatory Jass Pepe MD Work Phone: [facility] Comment on above: Status post total ri ght knee replacement (Primary Dx) Start: 02-24-2024 End: 02-28-2024 [facility] Start: 02-24-2024 End: 02-24-2024 ambulatory Jass Pepe MD Work Phone: [facility] Comment on above: Status post total ri ght knee replacement (Primary Dx) Start: 02-22-2024 End: 02-26-2024 [facility] Start: 02-22-2024 End: 02-22-2024 ambulatory Jass Pepe MD Work Phone: [facility] Comment on above: Status post total ri ght knee replacement (Primary Dx) Start: 02-19-2024 End: 02-23-2024 [facility] Start: 02-19-2024 End: 02-19-2024 ambulatory Jass Pepe MD Work Phone: [facility] Comment on above: Status post total ri ght knee replacement (Primary Dx) Start: 02-17-2024 End: 02-21-2024 ambulatory JASS MALDONADO [facility] Start: 02-17-2024 End: 02-17-2024 ambulatory Jass Pepe MD Work Phone: [facility] Comment on above: Status post total ri ght knee replacement (Primary Dx) Start: 02-15-2024 End: 02-19-2024 ambulatory JASS COLE [facility] Start: 02-15-2024 End: 02-15-2024 ambulatory Jass Pepe MD Work Phone: [facility] Comment on above: Status post total ri ght knee replacement Start: 02-12-2024 End: 02-12-2024 [facility] Amb[facility] Start: 02-12-2024 End: 02-12-2024 Postop follow up visit related to original px Jass Pepe MD Work Phone: [facility] Comment on above: Status post total ri ght knee replacement (Primary Dx) Start: 02-12-2024 Home visit Kendall Graff PT [facility] Comment on above: PT OASIS DISCHARGE Start: 02-11-2024 End: 02-11-2024 Home visit Lindsey Centeno RN [facility] Comment on above: SN HH NON-OASIS/DISC IPLINE DC Start: 02-10-2024 End: 02-10-2024 Home visit Cristhian Byrnes CORPORATE DIRECTOR [facility] Comment on above: CORPORATE DIRECTOR ROUTINE VISIT Start: 02-09-2024 End: 02-09-2024 Home visit Lisa Odell BEAM SEALER [facility] Comment on above: NIGEL HH ROUTINE Start: 02-08-2024 End: 02-08-2024 Refill Jass Pepe MD Work Phone: [facility] Comment on above: Status post total ri ght knee replacement (Primary Dx) CORPORATE DIRECTOR ROUTINE VISIT Start: 02-05-2024 End: 02-05-2024 Home visit Cristhian Byrnes [facility] Comment on above: CORPORATE DIRECTOR ROUTINE VISIT BEAM SEALER HH ROUTINE Start: 02-03-2024 End: 02-03-2024 Home visit Cristhian Soniya [facility] Comment on above: CORPORATE DIRECTOR ROUTINE VISIT SN HH ROUTINE VISIT Start: 02-01-2024 Documentation procedure Yen gold LPN [facility] Start: 02-01-2024 End: 02-01-2024 Home visit Cristhian Byrnes [facility] Comment on above: CORPORATE DIRECTOR ROUTINE VISIT Start: 01-28-2024 End: 01-28-2024 Home visit Kendall Graff PT [facility] Comment on above: PT INITIAL EVALUATIO N Start: 01-27-2024 End: 02-12-2024 ambulatory [facility] Start: 01-27-2024 End: 01-27-2024 Home visit Siena Rondon RN [facility] Comment on above: SN HH OASIS START OF CARE Start: 01-26-2024 End: 01-26-2024 ambulatory [facility] Start: 01-15-2024 End: 01-15-2024 ambulatory [facility] Ambulatory Start: 01-15-2024 End: 01-15-2024 Office outpatient visit 15 minutes Jass Pepe MD Work Phone: [facility] Comment on above: Osteoarthritis of ri ght knee, unspecified osteoarthritis type (Primary Dx) Start: 01-11-2024 Documentation procedure Yen gold [facility] Comment on above: 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) Start: 01-07-2024 End: 01-11-2024 ambulatory [facility] Start: 12-14-2023 End: 12-14-2023 ambulatory [facility] Work Phone: Start: 12-14-2023 End: 12-14-2023 Patient encounter procedure [facility] Work Phone: Start: 11-12-2023 End: 11-12-2023 ambulatory [facility] Work Phone: Start: 11-12-2023 End: 11-12-2023 Patient encounter procedure [facility] Work Phone: Start: 11-09-2023 End: 11-10-2023 ambulatory JAVI [facility] Start: 11-04-2023 End: 11-05-2023 ambulatory JAVI [facility] Start: 11-02-2023 End: 11-03-2023 ambulatory [facility] Start: 10-28-2023 End: 10-29-2023 ambulatory [facility] Start: 10-26-2023 End: 10-27-2023 ambulatory [facility] Start: 10-21-2023 End: 10-22-2023 ambulatory [facility] Start: 10-20-2023 End: 10-20-2023 ambulatory NICOL [facility] Ambulatory Start: 10-20-2023 End: 10-20-2023 Office outpatient visit 25 minutes Blaine Silveira MD Work Phone: [facility] Comment on above: 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 (Primary Dx); Osteoarthritis of right knee, unspecified osteoarthritis type; Severe aortic insufficiency Start: 10-19-2023 End: 10-20-2023 ambulatory JAVI [facility] Start: 10-14-2023 End: 10-15-2023 ambulatory JAVI [facility] Start: 10-12-2023 End: 10-13-2023 ambulatory [facility] Start: 10-09-2023 End: 10-10-2023 ambulatory [facility] Start: 10-07-2023 End: 10-08-2023 ambulatory JAVI [facility] Start: 09-29-2023 End: 09-29-2023 ambulatory JAVI [facility] Start: 09-25-2023 Admission to [facility] Jass Pepe MD Work Phone: [facility] Comment on above: Osteoarthritis of ri ght knee, unspecified osteoarthritis type (Primary Dx); Hypertension, unspecified type Start: 09-14-2023 End: 09-18-2023 ambulatory NICOL IBANEZ [facility] Start: 07-16-2023 End: 07-16-2023 ambulatory [facility] Work Phone: Start: 07-16-2023 End: 07-16-2023 [facility] Work Phone: Start: 06-25-2023 End: 06-25-2023 Emergency department patient visit [facility] Work Phone: Start: 06-25-2023 End: 06-29-2023 ambulatory [facility] Work Phone: Start: 06-25-2023 End: 06-29-2023 Discharged Recurring [facility] Work Phone: Start: 06-25-2023 Registered Recurring [facility] Work Phone: Start: 05-28-2023 End: 05-29-2023 ambulatory [facility] Work Phone: Start: 05-28-2023 End: 05-29-2023 Discharged Recurring [facility] Work Phone: Start: 04-23-2023 End: 04-29-2023 ambulatory [facility] Work Phone: Start: 04-23-2023 End: 04-29-2023 [facility] Start: 01-22-2023 ambulatory TERRIE [place] [facility] Start: 01-21-2023 End: 01-25-2023 ambulatory NICOL IBANEZ [facility] Start: 01-21-2023 End: 01-22-2023 ambulatory ANGELICA RANDALL [facility] Start: 01-21-2023 End: 01-21-2023 Office outpatient visit 25 minutes Angelica Randall CNP Work Phone: [facility] Comment on above: S/P TAVR (transcathe ter aortic valve replacement) (Primary Dx); Hypertension, unspecified type Start: 06-19-2022 Orders Only Terrie Núñez [facility] Comment on above: S/P TAVR (transcathe ter [...] Orders Only Blaine hines MD Work Phone: [facility] Start: 03-31-2022 ambulatory [...] Start: 02-19-2022 End: 02-23-2022 [facility] Start: 02-19-2022 End: 02-19-2022 Office outpatient visit 15 minutes Angelica Randall MUSIC VIDEO PRODUCER Work Phone: [facility] Comment on above: S/P TAVR (transcathe ter aortic valve replacement) (Primary Dx) Start: 02-17-2022 ambulatory Robert Pugh Facil [id number] Start: 02-14-2022 ambulatory Robert Pugh Facil [id number] Start: 02-12-2022 ambulatory Robert Pugh Facil [id number] Start: 02-10-2022 ambulatory Robert Pugh Facil [id number] Start: 02-03-2022 End: 02-03-2022 Phys/qhp telephone evaluation 11-20 min Angelica Randall MUSIC VIDEO [employer]ODUCER Work Phone: [facility] Comment on above: S/P TAVR (transcathe ter aortic valve replacement) (Primary Dx) Start: 01-22-2022 Orders Only Terrie Núñez [facility] Comment on above: S/P TAVR (transcathe ter aortic valve replacement) (Primary Dx) S/P TAVR (transcathe ter aortic valve replacement) (Primary Dx); Shortness of breath Start: 01-21-2022 End: 01-22-2022 Evaluation and management of inpatient Lindsey Plummer MD Work Phone: [facility] Start: 01-14-2022 Orders for Hospital Mikaela Reynold Leal MUSIC VIDEO [employer]ODUCER Work Phone: [facility] Start: 01-13-2022 Orders Only Angelica Han MUSIC VIDEO PRODUCER Work Phone: [facility] Comment on above: Encounter for prepro cedure screening laboratory testing for COVID-19 (Primary Dx) Start: 01-13-2022 Patient encounter status Muriel zuniga RN [facility] Start: 01-10-2022 Orders Only Clau Michaud RN [facility] Comment on above: Aortic valve stenosi s, severe (Primary Dx); Severe aortic insufficiency Start: 01-09-2022 Orders Only Terrie Oh RN [facility] Comment on above: Encounter for preope rative screening laboratory testing for COVID-19 virus (Primary Dx) Start: 01-09-2022 End: 01-09-2022 Patient encounter status Terrie Oh RN [facility] Start: 01-09-2022 End: 01-09-2022 Office outpatient new 45 minutes Meir Arthur MD Work Phone: [facility] Comment on above: Severe aortic insuff iciency (Primary Dx); Aortic valve stenosis, severe; Pre-operative cardiovascular examination Aortic valve stenosi s, severe; Pre-operative cardiovascular examination Start: 01-07-2022 Orders for Hospital Terrie naik RN [facility] Comment on above: Aortic valve stenosi s, severe (Primary Dx); Pre-operative cardiovascular examination; Other abnormal findings in urine ; Abnormal coagulation profile ; Dyspnea, unspecified type ; Abnormal finding of blood chemistry, unspecified Start: 01-07-2022 Patient encounter status Terrie Warren RN [facility] Start: 01-01-2022 Orders Only Terrie Oh RN [facility] Comment on above: Encounter for prepro cedure screening laboratory testing for COVID-19 (Primary Dx) Start: 01-01-2022 Patient encounter status Terrie Warren RN [facility] Start: 12-31-2021 Orders Only Terrie Oh RN [facility] Comment on above: Aortic valve stenosi s, severe (Primary Dx); Pre-operative cardiovascular examination; Other specified symptoms and signs involving the circulatory and respiratory systems Start: 12-31-2021 Patient encounter status Terrie Warren RN [facility] Start: 06-24-2021 End: 06-24-2021 Orders Only Iliana Madsen RN [facility] Comment on above: Nonrheumatic aortic valve insufficiency (Primary Dx) Start: 06-10-2021 End: 06-10-2021 Orders Only Iliana Madsen RN [facility] Comment on above: 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 (Primary Dx) Nonrheumatic aortic valve insufficiency (Primary Dx) Start: 06-10-2021 End: 06-10-2021 Office outpatient visit 25 minutes Blaine Silveira MD Work Phone: [facility] Comment on above: 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; Nonrheumatic aortic valve insufficiency; Elevated sed rate; Mixed hyperlipidemia Start: 01-23-2021 End: 01-23-2021 Orders Only Mustapha Al Work Phone: [facility] Start: 06-14-2019 End: 06-14-2019 Subsequent hospital visit by physician Blaine Silveira Work Phone: [facility] Comment on above: Nonrheumatic aortic valve insufficiency Start: 06-06-2019 End: 06-06-2019 Office outpatient visit 25 minutes Blaine Silveira Work Phone: [facility] Comment on above: SOB (shortness of br eath); 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; Fibrosing mediastinitis; Nonrheumatic aortic valve insufficiency Start: 01-05-2018 Ambulatory Blaine Silveira Facil ity:[place] Start: 01-05-2018 End: 01-05-2018 Ambulatory Blaine Silveira Work Phone: [facility] Procedures Date Procedure Procedure Detail Performing Clinician Start: 12-14-2023 Plain chest X-ray Start: 11-09-2023 FOLLOW UP IN PHYSICAL THERAPY [facility]3] Start: 11-04-2023 FOLLOW UP IN PHYSICAL THERAPY [facility]3] Start: 11-02-2023 FOLLOW UP IN PHYSICAL THERAPY [facility]3] Start: 10-28-2023 FOLLOW UP IN PHYSICAL THERAPY [facility]3] Start: 10-26-2023 FOLLOW UP IN PHYSICAL THERAPY [facility]3] Start: 10-21-2023 FOLLOW UP IN PHYSICAL THERAPY [facility]3] Start: 10-19-2023 FOLLOW UP IN PHYSICAL THERAPY [facility]3] Start: 10-14-2023 FOLLOW UP IN PHYSICAL THERAPY [facility]3] Start: 10-12-2023 FOLLOW UP IN PHYSICAL THERAPY [facility]3] Start: 10-09-2023 FOLLOW UP IN PHYSICAL THERAPY [facility]3] Start: 10-07-2023 FOLLOW UP IN PHYSICAL THERAPY [facility]3] Start: 09-29-2023 AMB REFERRAL TO PHYSICAL THERAPY JAVI AMEZCUA Start: 01-21-2023 Ecg routine ecg w/least 12 lds trcg only w/o i&r Angelica Claudia Tonia [employer] VIDEO [employer]ODUCER Work Phone: Start: 02-19-2022 Ecg routine ecg w/least 12 lds trcg only w/o i&r Angelica Claudia Dye MUSIC VIDEO PRODUCER Work Phone: Start: 01-22-2022 Ecg routine ecg w/least 12 lds trcg only w/o i&r Angelicaarmen Hsieh Dye MUSIC VIDEO PRODUCER Work Phone: Start: 01-22-2022 Basic metabolic panel calcium total Angelica Hsieh Dye MUSIC VIDEO PRODUCER Work Phone: Start: 01-21-2022 Potassium serum plasma/whole blood Angelica Hsieh Dye MUSIC VIDEO PRODUCER Work Phone: Start: 01-21-2022 Dup-scan lxtr art/artl bpgs uni/lmtd study Angelica Randall MUSIC VIDEO PRODUCER Work Phone: Start: 01-21-2022 Basic metabolic panel calcium total Angelica Randall MUSIC VIDEO PRODUCER Work Phone: Start: 01-21-2022 Radiologic exam chest single view Angelica Randall MUSIC VIDEO PRODUCER Work Phone: Start: 01-21-2022 Ecg routine ecg w/least 12 lds trcg only w/o i&r Angelicaarmen Randall MUSIC VIDEO PRODUCER Work Phone: Start: 01-21-2022 Cardiac catheterization Angelica Randall MUSIC VIDEO PRODUCER Work Phone: Start: 01-21-2022 2D TTE w or w/o fol w/con,fu Mikaela Leal MUSIC VIDEO PRODUCER Work Phone: Start: 01-21-2022 Sodium serum plasma or whole blood Lindsey Plummer MD Work Phone: Start: 01-21-2022 End: 01-21-2022 TRANSCATHETER AORTIC VALVE REPLACEMENT FEMORAL APPROACH Meir Arthur MD Work Phone: Start: 01-21-2022 Basic metabolic panel calcium total Mikaela Leal MUSIC VIDEO PRODUCER Work Phone: Start: 01-21-2022 Packed RBC preparation Mikaela lópez MUSIC VIDEO PRODUCER Work Phone: Start: 01-09-2022 Ecg routine ecg w/least 12 lds trcg only w/o i&r Angelica Claudia Randall MUSIC VIDEO PRODUCER Work Phone: Start: 06-10-2021 Ecg routine ecg w/least 12 lds w/i&r Blaine Silveira MD Work Phone: Start: 06-14-2019 Echocardiography Blaine Silveira Work Phone: Start: 06-06-2019 12 lead ECG Blaine Silveira Work Phone: Start: 01-05-2018 End: 01-05-2018 Tte w/doppler, complete Blaine malcoml Work Phone: History of coronary artery bypass grafting Status post double vessel coronary artery bypass Plan of Treatment Date Care Activity Detail Author Start: 11-07-2026 Tetanus vaccination [facility] Start: 09-13-2024 Fall risk assessment Falls Risk Assessment [facility] Start: 03-18-2024 End: 03-18-2024 Follow-up encounter 03/18/2024 2:30 PM EDT Follow-Up [facility] [address] [id number] Jass Pepe MD [address] [place] [address] [facility] Start: 03-11-2024 End: 03-11-2024 ambulatory [facility] Start: 03-09-2024 End: 03-09-2024 ambulatory [facility] Start: 03-07-2024 End: 03-07-2024 ambulatory [facility] Start: 03-04-2024 End: 03-04-2024 ambulatory 03/04/2024 10:45 AM EDT [facility] [address] [place] [id number] Jass Pepe MD [address] [place] [address] Gabriel Tovar PTA [facility] Start: 03-02-2024 End: 03-02-2024 ambulatory 03/02/2024 10:45 AM EDT [facility] [address] [phone] Jass Pepe MD [address] [place] [address] Dajuan Arroyo, PT [facility] Start: 02-29-2024 End: 02-29-2024 ambulatory 02/29/2024 10:45 AM EDT [facility] [address] [phone] Jass Pepe MD [address] [place] [address] Gabriel Tovar [facility] Start: 02-26-2024 End: 02-26-2024 ambulatory 02/26/2024 10:45 AM EDT [facility] [address] [place] [address] Jass Pepe MD [address] [place] [address] Sherlyn Villavicencio [facility] Start: 02-24-2024 End: 02-24-2024 ambulatory 02/24/2024 10:45 AM EDT [facility] [address] [place] [address] Jass Pepe MD [address] [place] [address] Gabriel Tovar [facility] Start: 02-22-2024 End: 02-22-2024 ambulatory 02/22/2024 10:45 AM EDT [facility] [address] [place] [phone] Jass Pepe MD [address] [phone] Dajuan Arroyo, PT [facility] Start: 02-19-2024 End: 02-19-2024 ambulatory 02/19/2024 10:45 AM EDT [facility] [address] [place] [address] Jass Pepe MD [address] [place] [address] Gabriel Tovar PTA [facility] Start: 02-17-2024 End: 02-17-2024 ambulatory 02/17/2024 10:45 AM EDT [facility] [address] [place] [address] Jass Pepe MD [address] [place] [address] Gabriel Tovar PTA Discharge Disposition: Home [facility] Start: 02-15-2024 End: 02-15-2024 ambulatory 02/15/2024 10:45 AM EDT [facility] [address] [place] [address] Jass Pepe MD [address] [place] [address] Dajuan Arroyo, PT Discharge Disposition: Home [facility] Start: 02-12-2024 End: 02-12-2024 Follow-up encounter 02/12/2024 2:15 PM EDT Follow-Up [facility] [address] [place] [address] Jass Pepe MD [address] [place] [address] [facility] Start: 02-12-2024 End: 02-12-2024 Home visit 02/12/2024 8:00 AM EDT Home Care Visit [place] [phone] Kendall Graff, PT [facility] Start: 02-11-2024 End: 02-11-2024 Patient encounter procedure [facility] Start: 02-11-2024 End: 02-11-2024 Home visit 02/11/2024 3:30 AM EDT Home Care Visit [place] [phone] Kendall Graff, PT [facility] Start: 02-11-2024 End: 02-11-2024 Patient encounter procedure 02/11/[address] [phone] Lindsey Centeno RN [facility] Start: 02-10-2024 End: 02-10-2024 Home visit 02/10/2024 10:00 AM EDT Home Care Visit [place] [phone] Cristhian Byrnes PTA [facility] Start: 02-09-2024 End: 02-10-2024 Home visit [facility] Start: 02-08-2024 End: 02-09-2024 Home visit [facility] Start: 02-05-2024 End: 02-05-2024 Home visit 02/05/2024 10:00 AM EST Home Care Visit [place] [phone] Cristhian Byrnes PTA [facility] Start: 02-05-2024 End: 02-05-2024 Home visit [facility] Start: 02-03-2024 End: 02-03-2024 Home visit 02/03/2024 11:00 AM EST Home Care Visit [address] [phone] Cristhian Byrnes PTA [facility] Start: 02-03-2024 End: 02-03-2024 Home visit 02/03/2024 Home Care Visit [address] [phone] Cristhian Byrnes PTA [facility] Start: 01-28-2024 End: 01-28-2024 Home visit [facility] Start: 01-26-2024 End: 01-26-2024 Admission to same day surgery center 01/26/2024 2:11 PM EST - 01/26/2024 4:14 PM EST Surgery [facility] [address] [facility] [place] [address] Jass Pepe MD [address] [place] [address] Right total knee replacement Robotic [facility] Comment on above: Right total knee replacement Robotic Start: 01-26-2024 End: 01-26-2024 ARTHROPLASTY KNEE TOTAL ROBOTIC ARTHROPLASTY KNEE TOTAL ROBOTIC Osteoarthritis of right knee, unspecified osteoarthritis type 01/26/2024 2:11 PM EST [facility] Start: 01-26-2024 Subsequent hospital visit by physician 01/26/2024 2:11 PM EST Hospital Encounter [facility] [address] [facility] [place] [address] Jass Pepe MD [address] [place] [address] [facility] Start: 01-15-2024 End: 01-15-2024 Patient encounter procedure 01/15/2024 1:15 PM EST Surgical Consult [facility] [address] [place] [address] Jass Pepe MD [address] [place] [address] [facility] Start: 2023 End: 2023 Admission to same day surgery center 2023 7:05 AM EST - 2023 9:08 AM EST Surgery [facility] [address] [facility] [place] [address] Jass Pepe MD [address] [place] [address] Right total knee replacement Robotic [facility] Comment on above: Right total knee replacement Robotic Start: 2023 End: 2023 ARTHROPLASTY KNEE TOTAL ROBOTIC ARTHROPLASTY KNEE TOTAL ROBOTIC Osteoarthritis of right knee, unspecified osteoarthritis type 2023 7:05 AM EST [facility] Start: 2023 Subsequent hospital visit by physician [facility] Start: 12-11-2023 End: 12-11-2023 Patient encounter procedure 12/11/2023 1:00 PM EST Surgical Consult [facility] [address] [place] [address] Jass Pepe MD [address] [place] [address] [facility] Start: 12-03-2023 End: 12-03-2023 Patient encounter procedure 12/03/2023 10:30 AM EST Appointment [facility] [address] [place] [address] Jass Pepe MD [address] [place] [address] [facility] [address] [facility] Start: 12-03-2023 End: 12-03-2023 Patient encounter procedure 12/03/2023 7:15 AM EST Office Visit [facility] [address] [place] [address] [facility] Start: 11-30-2023 Administration of herpes zoster vaccine Zoster Vaccines (2 of 2) [facility] Start: 07-31-2023 COVID-19 Vaccine ( season) COVID-19 Vaccine ( season) [facility] Start: 07-31-2023 Influenza vaccination Sequential Influenza Vaccine (#1) [facility] Start: 06-25-2023 Simple repair f/e/e/n/l/m 2.5cm/< RPR F/E/E/N/L/M 2.5 CM/< [facility] Start: 01-21-2023 End: 01-21-2023 Patient encounter procedure [facility] Start: 07-31-2022 Influenza vaccination Sequential Influenza Vaccine (#1) [facility] Start: 04-28-2022 COVID-19 Vaccine (5 - Booster for Pfizer series) COVID-19 Vaccine (5 - Booster for Pfizer series) [facility] Start: 04-04-2022 End: 04-04-2022 Patient encounter procedure 04/04/2022 Office Visit Cardiology Blaine Silveira MD [address] [facility] [address] [place] [address] [facility] Start: 02-19-2022 End: 02-19-2022 Patient encounter procedure [facility] Start: 02-03-2022 End: 02-03-2022 Telemedicine consultation with patient 02/03/2022 Telemedicine Telephone Cardiology Angelica [place], MUSIC VIDEO PRODUCER [address] [phone] [facility] Start: 01-21-2022 End: 01-21-2022 Admission to same day surgery center 01/21/2022 Surgery Lindsey Plummer MD [address] [facility] [address] [place] [address] Transcatheter Aortic Valve Replacement [facility] Comment on above: Transcatheter Aortic Valve Replacement Start: 01-21-2022 Subsequent hospital visit by physician 01/21/2022 Hospital Encounter Lindsey Plummer MD [address] [facility] [address] [place] [address] [facility] Start: 01-21-2022 End: 01-21-2022 TRANSCATHETER AORTIC VALVE REPLACEMENT FEMORAL APPROACH TRANSCATHETER AORTIC VALVE REPLACEMENT FEMORAL APPROACH severe aortic stenosis 01/21/2022 10:30 AM EST [facility] Start: 01-17-2022 End: 01-17-2022 Patient encounter procedure 01/17/2022 Office Visit Lab DyeAngelica, MUSIC VIDEO PRODUCER [address] [place] [address] [facility] Start: 01-15-2022 End: 01-15-2022 Admission to same day surgery center [facility] Senior Qualitative Researcher Comment on above: Left Heart Cath Possbile PTCA/Stent LEFT HEART CATH Start: 01-15-2022 Subsequent hospital visit by physician 01/15/2022 Hospital Encounter Silvio Mckeon MD [address] [facility] [address] [place] [address] [facility] Procedural Care Unit Start: 01-09-2022 End: 01-10-2022 Patient encounter procedure [facility] Start: 01-09-2022 Subsequent hospital visit by physician [facility] CT Start: 01-06-2022 End: 01-06-2022 Patient encounter procedure 01/06/2022 Office Visit Lab Angelica [place], MUSIC VIDEO PRODUCER [address] [place] [address] [facility] Start: 12-25-2021 End: 08-25-2022 Echocardiography Echocardiogram complete Echocardiography Routine Nonrheumatic aortic valve insufficiency Expected: 12/25/2021 (Approximate), Expires: 08/25/2022 [facility] Comment on above: Expected: 12/25/2021 (Approximate), Expi res: 08/25/2022 Start: 07-31-2021 Influenza vaccination Sequential Influenza Vaccine (#1) [facility] Start: 06-21-2021 End: 06-21-2021 Patient encounter procedure 06/21/2021 Appointment Cardiology Blaine Silveira MD [address] [facility] [address] [place] [address] [phone] [facility] Start: 05-25-2021 Pneumococcal vaccination Pneumococcal Vaccine Age 65+ (2 of 2 - PPSV23) [facility] Start: 07-31-2020 Influenza vaccination given Sequential Influenza Vaccine (#1) [facility] Start: 2019 Fall risk assessment Falls Risk Assessment [facility] Start: 07-31-2019 Influenza vaccination given SEQUENTIAL INFLUENZA VACCINE (#1) [facility] Start: 06-14-2019 End: 06-14-2019 Appointment 06/14/2019 Appointment Cardiology Blaine Silveira MD [address] [place] [address] [phone] [facility] Start: 07-31-2017 Influenza vaccination SEQUENTIAL INFLUENZA VACCINE (#1) [facility] Work Phone: Start: 2014 Zoster vacc, sc ZOSTER VACCINE [facility] Work Phone: Start: 2004 Administration of herpes zoster vaccine Zoster Vaccines (1 of 2) [facility] Start: 2004 Screening for malignant neoplasm of colon [facility] Start: 1994 Screening for malignant neoplasm of breast Mammogram [facility] Start: 1994 Screening mammography Mammogram [facility] Start: 1970 COVID-19 Vaccine (1 of 2) COVID-19 Vaccine (1 of 2) [facility] Start: 1966 Adolescent depression screening assessment Depression Screening (PHQ9) [facility] Start: 1966 Depression screening using PHQ-9 (Patient Health Questionnaire 9) score [facility] Start: 1960 Pneumococcal Vaccine: Age 65+ (1 of 2 - PPSV23) Pneumococcal Vaccine: Age 65+ (1 of 2 - PPSV23) [facility] Start: 1957 History and physical examination, annual for health maintenance Wellness Visit [facility] Start: 1954 Fall risk assessment Falls Risk Assessment [facility] Start: 1954 Physical therapy management PT Plan of Care [facility] Start: 1954 Screening colonoscopy COLONOSCOPY [facility] Work Phone: Start: 1954 Screening for malignant neoplasm of cervix PAP SMEAR [facility] Work Phone: Start: 1954 Screening for malignant neoplasm of colon [facility] Start: 1954 Screening for osteoporosis Dexa Scan [facility] Start: 1954 Screening mammography Mammogram [facility] Start: 1954 Tetanus vaccination TETANUS EVERY 10 YR [facility] Work Phone: End: 12-31-2022 12 lead ECG ECG 12 Lead ECG Routine Aortic valve stenosis, severe Pre-operative cardiovascular examination 1 Occurrences starting 12/31/2021 until 12/31/2022 [facility] Comment on above: 1 Occurrences starting 12/31/2021 until 12/31/2022 End: 01-22-2023 12 lead ECG ECG 12 Lead ECG Routine S/P TAVR (transcatheter aortic valve replacement) 1 Occurrences starting 01/22/2022 until 01/22/2023 [facility] Comment on above: 1 Occurrences starting 01/22/2022 until 01/22/2023 End: 06-19-2023 12 lead ECG ECG 12 Lead ECG Routine S/P TAVR (transcatheter aortic valve replacement) 1 Occurrences starting 06/19/2022 until 06/19/2023 [facility] Comment on above: 1 Occurrences starting 06/19/2022 until 06/19/2023 End: 09-25-2024 12 lead ECG ECG 12 Lead ECG Routine Osteoarthritis of right knee, unspecified osteoarthritis type 1 Occurrences starting 09/27/2023 until 09/25/2024 [facility] Comment on above: 1 Occurrences starting 09/27/2023 until 09/25/2024 ARTHROPLASTY KNEE TO FARIHA ROBOTIC ARTHROPLASTY KNEE TOTAL ROBOTIC Osteoarthritis of right knee, unspecified osteoarthritis type [facility] End: 02-13-2023 Basic metabolic 2000 panel - Serum or Plasma Basic metabolic panel Lab Routine S/P TAVR (transcatheter aortic valve replacement) 1 Occurrences starting 02/13/2022 until 02/13/2023 [facility] Comment on above: 1 Occurrences starting 02/13/2022 until 02/13/2023 End: 01-19-2024 Basic metabolic 2000 panel - Serum or Plasma Basic metabolic panel Lab Routine S/P TAVR (transcatheter aortic valve replacement) 1 Occurrences starting 01/19/2023 until 01/19/2024 [facility] Comment on above: 1 Occurrences starting 01/19/2023 until 01/19/2024 End: 09-25-2024 Basic metabolic 2000 panel - Serum or Plasma Basic metabolic panel Lab Routine Osteoarthritis of right knee, unspecified osteoarthritis type 1 Occurrences starting 09/27/2023 until 09/25/2024 [facility] Comment on above: 1 Occurrences starting 09/27/2023 until 09/25/2024 Cardiac catheterization Cardiac Catheterization Cardiac Cath Routine 01/21/2022 12:46 PM EST [facility] End: 02-28-2023 Carotid artery doppler assessment Carotid Duplex Vascular Ultrasound Routine Aortic valve stenosis, severe Pre-operative cardiovascular examination Other specified symptoms and signs involving the circulatory and respiratory systems 1 Occurrences starting 12/31/2021 until 02/28/2023 [facility] Comment on above: 1 Occurrences starting 12/31/2021 until 02/28/2023 End: 02-13-2023 CBC panel - Blood by Automated count CBC Lab Routine S/P TAVR (transcatheter aortic valve replacement) 1 Occurrences starting 02/13/2022 until 02/13/2023 [facility] Comment on above: 1 Occurrences starting 02/13/2022 until 02/13/2023 End: 01-19-2024 CBC panel - Blood by Automated count CBC Lab Routine S/P TAVR (transcatheter aortic valve replacement) 1 Occurrences starting 01/19/2023 until 01/19/2024 [facility] Comment on above: 1 Occurrences starting 01/19/2023 until 01/19/2024 End: 09-25-2024 Complete blood count with white cell differential, manual CBC and differential Lab Routine Osteoarthritis of right knee, unspecified osteoarthritis type Hypertension, unspecified type 1 Occurrences starting 09/27/2023 until 09/25/2024 [facility] Comment on above: 1 Occurrences starting 09/27/2023 until 09/25/2024 End: 12-31-2022 Complete PFT with pre and post bronchodilators Complete PFT with pre and post bronchodilators PFT Routine Aortic valve stenosis, severe Pre-operative cardiovascular examination 1 Occurrences starting 12/31/2021 until 12/31/2022 [facility] Work Phone: Comment on above: 1 Occurrences starting 12/31/2021 until 12/31/2022 End: 09-25-2024 CT Knee Right Without Contrast CT Knee Right Without Contrast Imaging Routine Osteoarthritis of right knee, unspecified osteoarthritis type 1 Occurrences starting 09/27/2023 until 09/25/2024 [facility] Comment on above: 1 Occurrences starting 09/27/2023 until 09/25/2024 End: 06-06-2020 Echocardiography Echocardiogram complete Echocardiography Routine Nonrheumatic aortic valve insufficiency 1 Occurrences starting 06/06/2019 until 06/06/2020 [facility] Comment on above: 1 Occurrences starting 06/06/2019 until 06/06/2020 End: 08-11-2022 Echocardiography Echocardiogram complete Echocardiography Routine Nonrheumatic aortic valve insufficiency 1 Occurrences starting 06/10/2021 until 08/11/2022 [facility] Comment on above: 1 Occurrences starting 06/10/2021 until 08/11/2022 End: 03-22-2023 Echocardiography Echocardiogram complete Echocardiography Routine S/P TAVR (transcatheter aortic valve replacement) 1 Occurrences starting 01/22/2022 until 03/22/2023 [facility] Work Phone: Comment on above: 1 Occurrences starting 01/22/2022 until 03/22/2023 End: 01-22-2022 Echocardiography Echocardiogram complete Echocardiography Routine Once for 1 Occurrences starting 01/22/2022 until 01/22/2022 [facility] Work Phone: Comment on above: Once for 1 Occurrences starting 01/22/20 until 01/22/2022 Echocardiography Echocardiogram complete Echocardiography Routine 01/22/2022 10:04 AM EST [facility] End: 08-20-2023 Echocardiography Echocardiogram complete Echocardiography Routine S/P TAVR (transcatheter aortic valve replacement) 1 Occurrences starting 06/19/2022 until 08/20/2023 [facility] Work Phone: Comment on above: 1 Occurrences starting 06/19/2022 until 08/20/2023 End: 09-25-2024 Incentive spirometry - Initial Instruction Incentive spirometry - Initial Instruction Respiratory Care Routine Osteoarthritis of right knee, unspecified osteoarthritis type 1 Occurrences starting 09/27/2023 until 09/25/2024 [facility] Work Phone: Comment on above: 1 Occurrences starting 09/27/2023 until 09/25/2024 End: 12-31-2022 Methicillin resistant Staphylococcus aureus [Presence] in Unspecified specimen by Organism specific culture MRSA Culture/Screen Microbiology Routine Aortic valve stenosis, severe Pre-operative cardiovascular examination 1 Occurrences starting 12/31/2021 until 12/31/2022 [facility] Comment on above: 1 Occurrences starting 12/31/2021 until 12/31/2022 Methicillin resistan t Staphylococcus aureus [Presence] in Unspecified specimen by Organism specific culture MRSA Culture/Screen Microbiology Routine Aortic valve stenosis, severe Pre-operative cardiovascular examination 01/09/2022 9:45 AM EST [facility] Work Phone: End: 09-25-2024 Methicillin resistant Staphylococcus aureus [Presence] in Unspecified specimen by Organism specific culture MRSA Culture Microbiology Routine Osteoarthritis of right knee, unspecified osteoarthritis type 1 Occurrences starting 09/27/2023 until 09/25/2024 [facility] Comment on above: 1 Occurrences starting 09/27/2023 until 09/25/2024 End: 02-13-2023 Natriuretic peptide.B prohormone N-Terminal [Mass/volume] in Serum or Plasma NT PRO BNP Lab Routine S/P TAVR (transcatheter aortic valve replacement) Shortness of breath 1 Occurrences starting 02/13/2022 until 02/13/2023 [facility] Comment on above: 1 Occurrences starting 02/13/2022 until 02/13/2023 Patient Education ED Head Injury (Adult) ED Laceration: All Closures [facility] Work Phone: Patient referral [facility] Work Phone: End: 06-11-2022 Radionuclide myocardial perfusion study NM Myocardial Perfusion Multiple SPECT Imaging Routine 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 1 Occurrences starting 06/10/2021 until 06/11/2022 [facility] Comment on above: 1 Occurrences starting 06/10/2021 until 06/11/2022 End: 01-09-2023 SARS-CoV-2 (COVID-19) RdRp gene [Presence] in Respiratory specimen by MAXIMUS with probe detection COVID-19, Molecular Microbiology Routine Encounter for preoperative screening laboratory testing for COVID-19 virus 1 Occurrences starting 01/09/2022 until 01/09/2023 [facility] Work Phone: Comment on above: 1 Occurrences starting 01/09/2022 until 01/09/2023 End: 01-13-2023 SARS-CoV-2 (COVID-19) RdRp gene [Presence] in Respiratory specimen by MAXIMUS with probe detection COVID-19, Molecular Microbiology Routine Encounter for preprocedure screening laboratory testing for COVID-19 1 Occurrences starting 01/13/2022 until 01/13/2023 [facility] Work Phone: Comment on above: 1 Occurrences starting 01/13/2022 until 01/13/2023 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 Vascular Ultrasound Routine 01/21/2022 2:16 PM EST [facility] Payers Date Payer Category Payer Self-pay [id number] 2019 Medicare MEDICARE MEDICAR E PART A & B [id number] 2019-Present [place] [id number] 2019 Medicare MEDICARE MEDICAR E PART A & B [id number] 2019-Present [phone] S J15 PART A CLAIMS [address] [address] [place] [address] [id number] .[id number] 2019 Medicare [id number] 2019 Unknown [id number] 2000 Unknown [id number] 2.16.840.1.238165.3.249.13 2000 Unknown [facility] UHC/UHONE/GO LDEN RULE xxxxxxxxx 2000-Present xxxxxxxxx 1.2.840.755623.1.13.385.2.7.3 .772462.315 1954 Unknown [id number] 2.16.840.1.317257.3.579.2.106 9 1954 Unknown [id number] 2.16.840.1.089602.3.579.2.106 9 1954 Unknown [id number] 2.16.840.1.000565.3.579.2.106 9 1954 Unknown [id number] 2.16.840.1.281831.3.579.2.106 9 1954 Unknown [id number] 2.16.840.1.827286.3.579.2.106 9 1954 Unknown [id number] 2.16.840.1.520014.3.579.2.106 9 1954 Unknown [id number] 2.16.840.1.717452.3.579.2.106 9 1954 Unknown [id number] 2.16.840.1.829121.3.579.2.106 9 1954 Unknown [id number] 2.16.840.1.323843.3.579.2.106 9 1954 Unknown [id number] 2.16.840.1.503606.3.579.2.106 9 1954 Unknown [id number] 2.16.840.1.094083.3.579.2.106 9 1954 Unknown [id number] 2.16.840.1.531047.3.579.2.106 9 1954 Unknown [id number] 2.16.840.1.028041.3.579.2.106 9 1954 Unknown [id number] 2.16.840.1.870849.3.579.2.106 9 1954 Unknown [id number] 2.16.840.1.837178.3.579.2.106 9 1954 Unknown [id number] 2.16.840.1.886019.3.579.2.106 9 1954 Unknown [id number] 2.16.840.1.787645.3.579.2.106 9 1954 Unknown [id number] 2.16.840.1.816722.3.579.2.106 9 1954 Unknown [id number] 2.16.840.1.990934.3.579.2.106 9 1954 Unknown [id number] 2.16.840.1.935648.3.579.2.106 9 1954 Unknown [id number] 2.16.840.1.572712.3.579.2.106 9 1954 Unknown [id number] 2.16.840.1.863026.3.579.2.106 9 1954 Unknown [id number] 2.16.840.1.705738.3.579.2.106 9 1954 Unknown [id number] 2.16.840.1.201640.3.579.2.106 9 1954 Unknown [id number] 2.16.840.1.645318.3.579.2.106 9 1954 Unknown [id number] 2.16.840.1.157177.3.579.2.106 9 1954 Unknown [id number] 2.16.840.1.177800.3.579.2.106 9 1954 Unknown [id number] 2.16.840.1.905378.3.579.2.106 9 1954 Unknown [id number] 2.16.840.1.697385.3.579.2.106 9 1954 Unknown [id number] 2.16.840.1.533376.3.579.2.106 9 1954 Unknown [id number] 2.16.840.1.047134.3.579.2.106 9 1954 Unknown [id number] 2.16.840.1.322196.3.579.2.106 9 1954 Unknown [id number] 2.16.840.1.017817.3.579.2.106 9 1954 Unknown [id number] 2.16.840.1.499322.3.579.2.106 9 1954 Unknown [id number] 2.16.840.1.034035.3.579.2.106 9 1954 Unknown [id number] 2.16.840.1.721678.3.579.2.106 9 1954 Unknown [id number] 2.16.840.1.928905.3.579.2.106 9 1954 Unknown [id number] 2.16.840.1.129844.3.579.2.900 1954 Unknown [id number] 2.16.840.1.804548.3.579.2.900 1954 Unknown [id number] 2.16.840.1.854674.3.579.2.902 1954 Unknown [id number] 2.16.840.1.219775.3.579.2.902 1954 Unknown [id number] 2.16.840.1.814152.3.579.2.902 1954 Unknown [id number] 2.16.840.1.029863.3.579.2.124 3 1954 Unknown [id number] 2.16.840.1.337032.3.579.2.124 3 1954 Unknown [id number] 2.16.840.1.604477.3.579.2.124 3 1954 Unknown [id number] 2.16.840.1.369097.3.579.2.124 3 1954 Unknown [id number] 2.16.840.1.016594.3.579.2.124 3 1954 Unknown [id number] 2.16.840.1.674105.3.579.2.124 3 1954 Unknown [id number] 2.16.840.1.259098.3.579.2.124 3 1954 Unknown [id number] 2.16.840.1.556076.3.579.2.124 3 1954 Unknown [id number] 2.16.840.1.296635.3.579.2.124 3 1954 Unknown [id number] 2.16.840.1.550030.3.579.2.124 3 1954 Unknown [id number] 2.16.840.1.035626.3.579.2.124 3 1954 Unknown [id number] 2.16.840.1.384208.3.579.2.124 3 1954 Unknown [id number] 2.16.840.1.436597.3.579.2.903 1954 Unknown [id number] 2.16.840.1.248721.3.579.2. 1954 Unknown [id number] 2.16.840.1.138016.3.579.2.903 1954 Unknown [id number] 2.16.840.1.111307.3.579.2. 1954 Unknown [id number] 2.16.840.1.898868.3.579.2.903 1954 Unknown [id number] 2.16.840.1.622138.3.579.2.903 1954 Unknown [id number] 2.16.840.1.503685.3.579.2.903 1954 Unknown [id number] 2.16.840.1.065657.3.579.2. 1954 Unknown [id number] 2.16.840.1.269613.3.579.2.903 1954 Unknown [id number] 2.16.840.1.857758.3.579.2.90 1954 Unknown [id number] 2.16.840.1.647625.3.579.2.903 1954 Unknown [id number] 2.16.840.1.876011.3.579.2.903 1954 Unknown [id number] 2.16.840.1.018116.3.579.2.903 1954 Unknown [id number] 2.16.840.1.372039.3.579.2.903 1954 Unknown [id number] 2.16.840.1.196541.3.579.2. 1954 Unknown [id number] 2.16.840.1.981017.3.579.2.903 1954 Unknown [id number] 2.16.840.1.521272.3.579.2. 1954 Unknown [id number] 2.16.840.1.861603.3.579.2.903 1954 Unknown [id number] 2.16.840.1.248406.3.579.2. 1954 Unknown [id number] 2.16.840.1.923136.3.579.2.903 1954 Unknown [id number] 2.16.840.1.601151.3.579.2.3 1954 Unknown [id number] 2.16.840.1.627924.3.579.2.903 1954 Unknown [id number] 2.16.840.1.892526.3.579.2. Unknown COMMERCIAL COMME RCIAL MISCELLANEOUS [id number] Effective for all dates [id number] 1.2.840.765633.1.13.385.2.7.3 .189018.315 Unknown COMMERCIAL COMME RCIAL MISCELLANEOUS [id number] Effective for all dates [phone] [address] [address] [place] [address] 1.2.840.316244.1.13.385.2.7.3 .622628.315 Unknown [id number] 2.16.840.1.324382.3.579.2.462 Unknown [id number] 2.16.840.1.247700.3.579.2.462 Unknown [id number] 2.16.840.1.389077.3.579.2.462 Social History Date Type Detail Facility Start: 06-08-2017 End: 01-21-2023 Tobacco smoking status NHIS Never smoker [facility] Start: 1955 Sex Assigned At Not on file [facility] Work Phone: Start: 06-06-2019 Alcohol Comment occasional [facility] Start: 06-11-2020 End: 01-21-2023 Tobacco use and exposure Never used [facility] Start: 06-11-2020 End: 03-04-2024 Alcohol intake Current drinker of alcohol (finding) [facility] Start: 06-10-2021 End: 02-24-2024 Alcohol intake [facility] Start: 01-11-2022 End: 01-21-2023 Exposure to SARS-CoV-2 (event) Not sure [facility] Start: 12-06-2019 End: 06-25-2023 Tobacco smoking status NHIS Unknown if ever smoked [facility] [facility] Start: 1955 Sex Assigned At Female [facility] Start: 09-14-2023 End: 02-24-2024 Tobacco use panel [facility] Start: 06-06-2019 Gender identity Identifies as female gender (finding) [facility] Start: 06-06-2019 Sexual orientation Heterosexual (finding) [facility] Lack of Transportati on (Medical) No [facility] Medical Equipment Procedure Code Equipment Code Equipment Origin al Text Equipment Identifier Dates Closure 6fr Angioseal Vip - [id number] Start: 01-15-2022 Closure Perclose Prostyle - [id number] Start: 01-21-2022 Valve 34mm Evolu t Pro Aortic - [id number] [id number], [id number] FDA Start: 01-21-2022 Hemostat 2 X 4in Surgicel Snow Sterl - [id number] Start: 01-21-2022 Baseplate Sz3 Ti bial Tritanium Triathlon - [id number] ()[id number] 7)[id number], [id number] FDA Start: 01-26-2024 Component Sz3 Fe m Cr Rt Cementless Beaded W/Pa Triathlon - [id number] ()[id number] 7)[id number])[id number], [id number] FDA Start: 01-26-2024 Patella 29mm Asymmetric Metal-Backed Tritanium Triathlon - [id number] ()[id number](1 7)[id number])[id number], [id number] FDA Start: 01-26-2024 Insert Sz3-11 Ti bial Cr X3 Triathlon 1797-L-121-E - [id number] ()[id number](1 7)[id number])[id number], [id number] FDA Start: 01-26-2024 Clinical Notes 06-10-2021 to 03-11-2024 Flores Gore PTA - 03/11/2024 10:45 AM Flores Lund PTA - 03/09/2024 10:45 AM Flores Lund PTA - 03/07/2024 10:45 AM Nadege Chua - 03/04/2024 10:45 AM EDTNarrapatrizia Note Date & Type Note Facility 03-11-2024 History of Presen t illness Narrative [facility] OUTPATIENT REHABIL[facility]ATION DAILY TREATMENT NOTE Today's Date [...] Arnav Notes visit 11: 10:45-11:28 Therapeutic Exercise (93317) Intervention SciFit Bike L4 x 6 mins [...] up and over 6 Intervention Possibly add djiboutian split squats/ stool scoots/ standing hamstring curls [...] PT visits Flores Gore PTA STATE LICENSE, [id number] documented in this encounter [facility] 03-09-2024 History of Presen t illness Narrative [facility] OUTPAT[facility]IL[facility] DAILY TREATMENT NOTE Today's Date [...] Arnav Notes Visit #10: 10:36-11:26 Therapeutic Exercise (74322) Intervention SciFit Bike L4 x 6 mins [...] up and over 6 Intervention Possibly add djiboutian split squats/ stool scoots/ standing hamstring curls [...] Flexion ROM Flores Gore PTA STATE LICENSE, [id number] documented in this encounter [facility] 03-07-2024 History of Presen t illness Narrative [facility] OUTPATIENT [facility]IL[facility] DAILY TREATMENT NOTE Today's Date [...] Arnav Notes Visit #8: 10:45-11:30 Therapeutic Exercise (46913) Intervention SciFit Bike L4 x 6 mins [...] up and over 6 Intervention Possibly add djiboutian split squats/ stool scoots/ standing hamstring curls [...] on flexion Flores Gore PTA STATE LICENSE, [id number] documented in this encounter [facility] 03-04-2024 History of Presen t illness Narrative [facility] DAILY TREATMENT NOTE Today's Date [...] Arnav Notes Visit #8: 10:45-11:40 Therapeutic Exercise (47261) Intervention SciFit Bike L4 x 6 mins [...] up and over 6 Intervention Possibly add djiboutian split squats/ stool scoots/ standing hamstring curls [...] SHIRA Celis [place] licensure found in state[place] Treatment was directed and supervised by the co-signing therapist who was directly present for the entire session. Gabriel Tovar PTA State License [id number] documented in this encounter [facility] 03-02-2024 History of Presen t illness Narrative [facility] OUTPATIENT [facility]IL[facility] DAILY TREATMENT NOTE Today's Date [...] Notes Visit #7: 10:46 11:24 Therapeutic Exercise (80166) Intervention SciFit Bike L4 x 6 mins [...] taps w/6 step x10 Intervention Possibly add djiboutian split squats/ stool scoots/ standing hamstring curls [...] Kamara, SPT [place] licensure found in [place] Treatment was directed and supervised by the co-signing therapist who was directly present for the entire session. Dajuan Arroyo PT State License, [id number] documented in this encounter [facility] 02-29-2024 History of Presen t illness Narrative [facility] OUTPATIENT REHABIL[facility] DAILY TREATMENT NOTE Today's Date [...] Notes Visit: 1050 - 11:40 Therapeutic Exercise (77721) Intervention SciFit Bike L4 x 6 mins [...] and ROM Gabriel Tovar PTA STATE LICENSE, [id number] documented in this encounter [facility] 02-26-2024 History of Presen t illness Narrative [facility] DAILY TREATMENT NOTE Today's Date [...] Precautions/Contraindications Supervising PT: Arnav Notes Visit: 5 [phone] Therapeutic Exercise (89089) Intervention SciFit Bike L4 x 6 mins [...] as tolerated Sherlyn Villavicencio PTA STATE LICENSE, [id number] documented in this encounter [facility] 02-24-2024 History of Presen t illness Narrative [facility] DAILY TREATMENT NOTE Today's Date [...] Arnav Notes Visit: 4 10:45-11:11:43 Therapeutic Exercise (06381) Intervention SciFit Bike L4 x 5 mins [...] SHIRA Celis [place] lic[place] found [place] Treatment was directed and supervised by the co-signing therapist who was directly present for the entire session. Gabriel Tovar PTA State License [id number] documented in this encounter [facility] 02-22-2024 History of Presen t illness Narrative [facility] DAILY TREATMENT NOTE Today's Date [...] Visit: 3 10:40 - 11:15 Therapeutic Exercise (42644) Intervention SciFit Bike L4 x 5 mins [...] Kamara, SPT [place] lic[place] found [place] Treatment was directed and supervised by the co-signing therapist who was directly present for the entire session. Dajuan Arroyo PT State License, [id number] documented in this encounter [facility] 02-19-2024 History of Presen t illness Narrative [facility]IL[facility] DAILY TREATMENT NOTE Today's Date [...] Visit: 2 10:48 - 11:46 Therapeutic Exercise (75490) Intervention SciFit Bike L4 x 5 mins [...] strengthening progression Gabriel Tovar PTA STATE LICENSE, [id number] documented in this encounter [facility] 02-17-2024 History of Presen t illness Narrative [facility]HABIL[facility] DAILY TREATMENT NOTE Today's Date [...] Arnav Notes Visit: 1 10:50- Therapeutic Exercise (08485) Intervention HEP was reviewed w/ patient and [...] SHIRA Celis [place] found [place] Treatment was directed and supervised by the co-signing therapist who was directly present for the entire session. Gabriel Tovar PTA [id number] documented in this encounter [facility] 02-15-2024 History of Presen t illness Narrative [facility] Evaluation Today's Date 02/15/2024 Patient [...] the ability to ambulate better. Social Support: Adventist, social, or cultural considerations to be made aware of before starting treatment: No Home Environment Current Home Environment: Setup: single story house Entry: steps with railing Red Flags: None Comments: Barriers to Care: None Fall risk screening Fallen 2 or more times in the last 12 months: No Injured as a result of a fall in the last 12 months: No Adventist, social, or cultural considerations to be made [...] Notes Eval: 10:51 - 11:17 Therapeutic Exercise (10790) Intervention HEP was reviewed w/ patient and [...] with HEP in 2 weeks. CPT Code 62266 Low 97508 Moderate 19730 High History 0 1-2 3+ Comorbidities: asthma, [...] week Duration: 6 weeks Interventions: Therapeutic Exercise (30657), Neuromuscular Re-Education (61894), Manual Therapy (27913), Therapeutic/ Functional Activities (44074), Gait Training (36705), Aquatic Therapy (69417), Hot/Cold Pack (28894), Electrical Stimulation - Medicare, Unattended (G0283), Ultrasound (64974), and Vasopneumatic (67406) Rehab Potential: good Patient Education Provided Pt [...] entire session. Dajuan Arroyo PT State License, [id number] documented in this encounter [facility] 02-12-2024 Patient's home Pr ogress note Pt reports she is doing well and ready for dc. Is using a SPC around the house. Sees this afternoon for followup and staple removal. documented in this encounter [id number] Telephone encounter Note* Telephone Encounter - Treva Obregon LPN - 02/08/2024 12:09 PM EDT Patient requested refill for pain medication. Surgery 01/26 right TKR, last fill 01/26. [id number] Miscellaneous Notes* Telephone Encounter - Treva Obregon LPN - 02/08/2024 12:09 PM EDT Patient requested refill for pain medication. Surgery 01/26 right TKR, last fill 01/26. documented in this [id number] History of Present illness Narrative* Yen Carlson [...] to call the office. documented in this [id number] History of Present illness Narrative* Yen Carlson LPN - 01/11/2024 2:11 PM EST Amber's nasal swab was positive for MSSA w her preop testing. She will start Doxycyline 100mg bid x 7days and Mupirocin 2% ointment to both nostrils bid x 7 days. I did speak w Amber. documented in this [id number] Patient's home Progress note* Actions Routine visit [...] no longer homebound documented in this encounter [id number] Patient's home Progress note* Actions Routine visit [...] no longer homebound documented in this encounter [id number] Evaluation + Plan note* Assessment & Plan Note - Blaine Silveira MD - 10/20/2023 1:56 PM ESTAssociated Problem(s): Severe aortic insufficiency Doing well from Tavr standpoint Should be low cardiac for surgery from coronary and Valve Would suggest a pre op Pulmonary consult just to be sure from her fibrosing mediastinitis history Also would continue asa through surgery [id number] History of Present illness Narrative* Blaine Silveira MD - 10/20/2023 1:56 PM EST Patient Name: Vickie Gonzalez [facility] MR #: [id number] General Cardiology Blaine Silveira MD, [facility] 10/20/23 Dear Nicol Ibanez MD, Vickie Gonzalez was seen in follow up for : Problem Coronary Artery Disease Involving [place] Coronary Artery of [place] Heart Without Angina Pectoris CABG 2000 Cath 2010 all grafts open 12/2021- Pat Dye/Missy Severe Aortic Insufficiency EVOLUT 34mm via R CLIENT ANALYST. 01/21/222022 2 D cardiac echocardiogram looked good [...] 1 (one) tablet by mouth daily . AGLFAJX-VMKDLXMMP-VCPN ORAL Take 1 tablet by mouth daily [...] No medications on file documented in this [id number] Miscellaneous Notes* Assessment & Plan Note - Blaine Silveira MD - 10/20/2023 1:56 PM ESTAssociated Problem(s): Severe aortic insufficiency Doing well from Tavr standpoint Should be low cardiac for surgery from coronary and Valve Would suggest a pre op Pulmonary consult just to be sure from her fibrosing mediastinitis history Also would continue asa through surgery documented in this [id number] Progress note Author Lindsey Walsh [facility] July 16, 2023 12:13pm Note Date/Time July 16, 2023 12 :05pm [facility] [address] [place] [address] Progress Note - Wound Care 07/16/23 1200 MR#: [id number] Acct: [id number] Name: VICKIE GONZALEZ Rep #:[id number] 09 : [...] locally at the wound care center at [facility]. She states following a few days [...] Recorded Date Recorded By Document 07/16/23 09:42 [id number] 07/16/23 09:51 KW 07/16/23 09:42 - Today's Visit Information Type of service Follow-up Visit (Physician/MUSIC VIDEO PRODUCER ) Arrival Mode Ambulatory Patient Identification Verified [...] Recorded Date Recorded By Document 07/16/23 09:42 [id number] 07/16/23 09:51 07/16/23 09:42 Wound Center Nurse [...] Recorded Date Recorded By Document 07/16/23 10:05 [id number] 07/16/23 10:06 07/16/23 10:05 Wound Care Center [...] No signs of infection. Pain: May take sceu-hcj-yxurqdn Tylenol as needed for discomfort. Host factors: Basal cell carcinoma left lower extremity, edema. ? At this time with all wounds healed she is discharged from the wound care center. She has follow-up appointment with liability claims adjuster next week. I answered all the patient's questions.? To return to the wound healing center as needed or call sooner if the patient has any questions or concerns. 07/16/23 1213 <Electronically signed by Lindsey Walsh DPM> Cosigner Signature (if applicable): CC: ~ Signed [facility] Work Phone: 1(897) 944-645507-27-2023 Progress note Author Lindsey Nico [facility] June 25, 2023 11:36am Note Date/Time June 25, 2023 10:1 2am [facility] [address] [place] [address] Progress Note - Wound Care 06/25/23 1012 MR#: [id number] Acct: [id number] Name: VICKIE GONZALEZ Rep #:[id number] 07 : [...] locally at the wound care center at [facility]. She states following a few days [...] Date Recorded By Document 06/04/23 10:15 AK [id number] 06/04/23 10:17 AK Document 06/18/23 10:58 JF [id number] 06/18/23 11:01 Document 06/25/23 09:48 DL [id number] 06/25/23 09:56 DL 06/04/23 06/18/23 06/25/23 10:15 10:58 09:48 - Today's Visit Information Type of service Follow-up Visit Follow-up Visit Follow-up Visit (Physician/MUSIC VIDEO PRODUCER (Physician/MUSIC VIDEO PRODUCER (Physician/MUSIC VIDEO PRODUCER ) ) ) Arrival Mode Ambulatory Ambulatory [...] Date Recorded By Document 06/04/23 10:15 AK [id number] 06/04/23 10:17 AK Document 06/18/23 10:58 JF [id number] 06/18/23 11:01 Document 06/25/23 09:48 DL [id number] 06/25/23 09:56 DL 06/04/23 06/18/23 06/25/23 10:15 [...] None Present (0 %) %) -Granulation Quality Sandstone N/A -Slough/Fibrin Yes No -Necrosis Amt Medium [...] Date Recorded By Document 06/04/23 12:01 PL [id number] 06/04/23 12:02 PL Document 06/18/23 12:17 PL [id number] 06/18/23 12:19 PL 06/04/23 06/18/23 12:01 12:17 [...] -Expiration Date 02/29/28 03/30/28 -Product Lot Number [id number] -Percent Used 100 100 -Bleeding [...] Recorded Date Recorded By Document 06/04/23 10:49 [id number] 06/04/23 10:49 Document 06/18/23 10:58 [id number] 06/18/23 11:01 06/04/23 06/18/23 10:49 10:58 Wound [...] No signs of infection. Pain: May take epdb-div-qdbqwfu Tylenol as needed for discomfort. Host factors: Basal cell carcinoma left lower extremity, edema. ? I answered all the patient's questions.? To return to the wound healing center in 3 weeks or call sooner if the patient has any questions or concerns. 06/25/23 1136 <Electronically signed by Lindsey Walsh DPM> Cosigner Signature (if applicable): CC: ~ Signed [facility] Work Phone: 1(465) 286-114307-20-2023 Progress note Author Lindsey Nico [facility] June 18, 2023 5:46pm Note Date/Time June 18, 2023 9:48 am [facility] [address] [place] [address] Progress Note - Wound Care 06/18/23 0947 MR#: [id number] Acct: [id number] Name: PARAGVICKIE CLEMONS Rep #:[id number] 07 : 1955 67 From: Lindsey sykes DPM PCP: Dr. Nicol Ibanez MD [facility] Location: History of Present Illness Date [...] locally at the wound care center at [facility]. She states following a few days [...] Date Recorded By Document 06/04/23 10:15 DONNIE [id number] 06/04/23 10:17 DONNIE 06/04/23 10:15 WC - Today's Visit Information Type of service Follow-up Visit (Physician/MUSIC VIDEO PRODUCER ) Arrival Mode Ambulatory Patient Identification Verified [...] Date Recorded By Document 06/04/23 10:15 AK [id number] 06/04/23 10:17 AK 06/04/23 10:15 Wound Center [...] Attached -Granulation Amt Medium (34-66%) -Granulation Quality [place] -Slough/Fibrin Yes -Necrosis Amt Medium (34-66%) -Necrotic [...] Date Recorded By Document 06/04/23 12:01 PL [id number] 06/04/23 12:02 PL 06/04/23 12:01 Wound Center [...] Disc -Expiration Date 02/29/28 -Product Lot Number [id number] -Percent Used 100 -Bleeding Controlled with [...] Recorded Date Recorded By Document 06/04/23 10:49 [id number] 06/04/23 10:49 ARNOLDO 06/04/23 10:49 Wound Care [...] No signs of infection. Pain: May take zcau-znj-ouvuegd Tylenol as needed for discomfort. Host factors: Basal cell carcinoma left lower extremity, edema. ? I answered all the patient's questions.? To return to the wound healing center in 1 week or call sooner if the patient has any questions or concerns. 06/18/23 1746 <Electronically signed by Lindsey Walsh DPM> Cosigner Signature (if applicable): CC: ~ Signed [facility] Work Phone: 1(339) 278-649607-06-2023 Progress note Author Lindsey Nico [facility] June 04, 2023 1:00pm Note Date/Time June 04, 2023 1:00p [facility] [address] [place] [address] Progress Note - Wound Care 06/04/23 1255 MR#: [id number] Acct: [id number] Name: VICKIE GONZALEZ Rep #:[id number] 13 : [...] locally at the wound care center at [facility]. She states following a few days [...] Date Recorded By Document 06/04/23 10:15 DONNIE [id number] 06/04/23 10:17 DONNIE 06/04/23 10:15 - Today's Visit Information Type of service Follow-up Visit (Physician/MUSIC VIDEO PRODUCER ) Arrival Mode Ambulatory Patient Identification Verified [...] Date Recorded By Document 06/04/23 10:15 AK [id number] 06/04/23 10:17 AK 06/04/23 10:15 Wound Center [...] Attached -Granulation Amt Medium (34-66%) -Granulation Quality [place] -Slough/Fibrin Yes -Necrosis Amt Medium (34-66%) -Necrotic [...] Date Recorded By Document 06/04/23 12:01 PL [id number] 06/04/23 12:02 PL 06/04/23 12:01 Wound Center [...] Disc -Expiration Date 02/29/28 -Product Lot Number [id number] -Percent Used 100 -Bleeding Controlled with [...] Date Recorded By Document 06/04/23 10:49 ARNOLDO [id number] 06/04/23 10:49 ARNOLDO 06/04/23 10:49 Wound Care [...] No signs of infection. Pain: May take ipgr-bss-wfwzaiw Tylenol as needed for discomfort. Host factors: Basal cell carcinoma left lower extremity, edema. ? I answered all the patient's questions.? To return to the wound healing center in 2 weeks or call sooner if the patient has any questions or concerns. 06/04/23 1300 <Electronically signed by Lindsey Walsh DPM> Cosigner Signature (if applicable): CC: ~ Signed [facility] Work Phone: 1(814) 103-210306-29-2023 Progress note Author Lindsey Walsh [facility] May 28, 2023 10:20am Note Date/Time May 28, 2023 9:53 am [facility] [address] [place] [address] Progress Note - Wound Care 05/28/23 0952 MR#: [id number] Acct: [id number] Name: VICKIE GONZALEZ Rep #:[id number] 08 : 1955 67 From: Lindsey sykes DPM PCP: Dr. Nicol Ibanez MD Status:[facility] Location: History of Present Illness Date [...] locally at the wound care center at [facility]. She states following a few days [...] Recorded Date Recorded By Document 04/30/23 09:24 [id number] 04/30/23 09:40 Document 05/07/23 09:26 AK [id number] 05/07/23 09:28 AK Document 05/14/23 09:34 [id number] 05/14/23 09:46 KW Document 05/21/23 11:54 AK [id number] 05/21/23 11:56 AK 04/30/23 05/07/23 05/14/23 09:24 09:26 09:34 - Today's Visit Information Type of service Follow-up Visit Follow-up Visit Follow-up Visit (Physician/MUSIC VIDEO PRODUCER (Physician/MUSIC VIDEO PRODUCER (Physician/MUSIC VIDEO PRODUCER ) ) ) Arrival Mode Ambulatory Ambulatory [...] Visit Information Type of service Follow-up Visit (Physician/MUSIC VIDEO PRODUCER ) Arrival Mode Ambulatory Patient Identification Verified [...] Date Recorded By Document 04/30/23 09:24 JF [id number] 04/30/23 09:40 JF Document 05/07/23 09:26 AK [id number] 05/07/23 09:28 AK Document 05/14/23 09:34 KW [id number] 05/14/23 09:46 KW Document 05/21/23 11:54 AK [id number] 05/21/23 11:56 AK 04/30/23 05/07/23 05/14/23 09:24 [...] Medium (34-66%) Medium (34-66%) -Granulation Quality Red [place] -Slough/Fibrin Yes Yes -Necrosis Amt Small (1-33%) [...] Attached -Granulation Amt Medium (34-66%) -Granulation Quality [place] -Slough/Fibrin Yes -Necrosis Amt Medium (34-66%) -Necrotic [...] Date Recorded By Document 04/30/23 12:15 PL [id number] 04/30/23 12:17 PL Document 05/07/23 12:36 PL [id number] 05/07/23 12:38 PL Document 05/14/23 12:06 PL [id number] 05/14/23 12:08 PL Edit Result 05/14/23 12:06 PL (1) [id number] 05/15/23 12:47 PL Document 05/21/23 12:16 PL [id number] 05/21/23 12:17 PL (1) #1 L medial [...] Date 01/29/28 01/29/28 02/29/28 -Product Lot Number [id number] -Percent Used 100 100 [...] Disc -Expiration Date 02/29/28 -Product Lot Number [id number] -Percent Used 100 -Bleeding Controlled with [...] Date Recorded By Document 04/30/23 09:59 AK [id number] 04/30/23 10:00 AK Undo 04/30/23 09:59 AK Adjusting Time [id number] 04/30/23 10:01 AK Document 05/07/23 10:09 AK [id number] 05/07/23 10:10 AK Document 05/14/23 12:06 PL [id number] 05/14/23 12:08 PL Document 05/21/23 10:33 KW [id number] 05/21/23 10:44 KW 05/07/23 05/14/23 05/21/23 10:09 [...] No signs of infection. Pain: May take mvpz-owu-ojnrhdm Tylenol as needed for discomfort. Host factors: Basal cell carcinoma left lower extremity, edema. ? I answered all the patient's questions.? To return to the wound healing center in 1 week or call sooner if the patient has any questions or concerns. 05/28/23 1020 <Electronically signed by Lindsey Walsh DPM> Cosigner Signature (if applicable): CC: ~ Signed [facility] Work Phone: 1(879) 412-933206-22-2023 Progress note Author Lindsey Walsh [facility] May 21, 2023 12:31pm Note Date/Time May 21, 2023 9:57 am [facility] [place] [address] [address] Progress Note - Wound Care 05/21/23 0957 MR#: [id number] Acct: [id number] Name: VICKIE GONZALEZ Rep #:[id number] 07 : [...] locally at the wound care center at [facility]. She states following a few days [...] Date Recorded By Document 04/30/23 09:24 JANIE [id number] 04/30/23 09:40 JANIE Document 05/07/23 09:26 AK [id number] 05/07/23 09:28 AK Document 05/14/23 09:34 KW [id number] 05/14/23 09:46 KW 04/30/23 05/07/23 05/14/23 09:24 09:26 09:34 - Today's Visit Information Type of service Follow-up Visit Follow-up Visit Follow-up Visit (Physician/MUSIC VIDEO PRODUCER (Physician/MUSIC VIDEO PRODUCER (Physician/MUSIC VIDEO PRODUCER ) ) ) Arrival Mode Ambulatory Ambulatory [...] Date Recorded By Document 04/30/23 09:24 JANIE [id number] 04/30/23 09:40 Document 05/07/23 09:26 AK [id number] 05/07/23 09:28 AK Document 05/14/23 09:34 KW [id number] 05/14/23 09:46 KW 04/30/23 05/07/23 05/14/23 09:24 [...] Medium (34-66%) Medium (34-66%) -Granulation Quality Red [place] -Slough/Fibrin Yes Yes -Necrosis Amt Small (1-33%) [...] Date Recorded By Document 04/30/23 12:15 PL [id number] 04/30/23 12:17 PL Document 05/07/23 12:36 PL [id number] 05/07/23 12:38 PL Document 05/14/23 12:06 PL [id number] 05/14/23 12:08 PL Edit Result 05/14/23 12:06 PL (1) [id number] 05/15/23 12:47 PL (1) #1 L medial [...] Date 01/29/28 01/29/28 02/29/28 -Product Lot Number [id number] 002 -Percent Used 100 100 [...] Date Recorded By Document 04/30/23 09:59 AK [id number] 04/30/23 10:00 AK Undo 04/30/23 09:59 AK Adjusting Time [id number] 04/30/23 10:01 AK Document 05/07/23 10:09 AK [id number] 05/07/23 10:10 AK Document 05/14/23 12:06 PL [id number] 05/14/23 12:08 PL 05/07/23 05/14/23 10:09 12:06 [...] No signs of infection. Pain: May take lymu-yfz-utbsicq Tylenol as needed for discomfort. Host factors: Basal cell carcinoma left lower extremity, edema. ? I answered all the patient's questions.? To return to the wound healing center in 1 week or call sooner if the patient has any questions or concerns. 05/21/23 1231 <Electronically signed by Lindsey Walsh DPM> Cosigner Signature (if applicable): CC: ~ Signed [facility] Work Phone: 1(865) 969-756006-15-2023 Progress note Author Lindsey Walsh [facility] May 14, 2023 10:27am Note Date/Time May 14, 2023 9:43 am [facility] [address] [place] [address] Progress Note - Wound Care 05/14/23 0942 MR#: [id number] Acct: [id number] Name: VICKIE GONZALEZ Rep #:[id number] : 1955 67 From: Lindsey sykes DPM PCP: Dr. Nicol Ibanez MD [facility]: History of Present Illness Date [...] locally at the wound care center at [facility]. She states following a few days [...] Recorded Date Recorded By Document 04/30/23 09:24 [id number] 04/30/23 09:40 Document 05/07/23 09:26 DONNIE [id number] 05/07/23 09:28 AK 04/30/23 05/07/23 09:24 09:26 - Today's Visit Information Type of service Follow-up Visit Follow-up Visit (Physician/MUSIC VIDEO PRODUCER (Physician/MUSIC VIDEO PRODUCER ) ) Arrival Mode Ambulatory Ambulatory Patient [...] Recorded Date Recorded By Document 04/30/23 09:24 [id number] 04/30/23 09:40 Document 05/07/23 09:26 AK [id number] 05/07/23 09:28 AK 04/30/23 05/07/23 09:24 09:26 [...] Medium (34-66%) Medium (34-66%) -Granulation Quality Red Sandstone -Slough/Fibrin Yes Yes -Necrosis Amt Small (1-33%) [...] Date Recorded By Document 04/30/23 12:15 PL [id number] 04/30/23 12:17 PL Document 05/07/23 12:36 PL [id number] 05/07/23 12:38 PL 04/30/23 05/07/23 12:15 12:36 [...] -Expiration Date 01/29/28 01/29/28 -Product Lot Number [id number] -Percent Used 100 100 -Bleeding [...] Date Recorded By Document 04/30/23 09:59 AK [id number] 04/30/23 10:00 AK Undo 04/30/23 09:59 AK Adjusting Time [id number] 04/30/23 10:01 AK Document 05/07/23 10:09 AK [id number] 05/07/23 10:10 AK 05/07/23 10:09 Wound Care [...] No signs of infection. Pain: May take qxkx-cfn-shsctat Tylenol as needed for discomfort. Host factors: Basal cell carcinoma left lower extremity, edema. ? I answered all the patient's questions.? To return to the wound healing center in 1 week or call sooner if the patient has any questions or concerns. 05/14/23 1027 <Electronically signed by Lindsey Walsh DPM> Cosigner Signature (if applicable): CC: ~ Signed [facility] Work Phone: 1(420) 415-783406-08-2023 Progress note Author Lindsey Walsh [facility] May 07, 2023 9:42am Note Date/Time May 07, 2023 9:14a m [facility] [address] [place] [address] Progress Note - Wound Care 05/07/23912 MR#: [id number] Acct: [id number] Name: PARAGVICKIE CLEMONS Rep #:[id number] : [...] locally at the wound care center at [facility]. She states following a few days [...] Date Recorded By Document 04/30/23 09:24 JANIE [id number] 04/30/23 09:40 JANIE 04/30/23 09:24 WC - Today's Visit Information Type of service Follow-up Visit (Physician/MUSIC VIDEO PRODUCER ) Arrival Mode Ambulatory Patient Identification Verified [...] Recorded Date Recorded By Document 04/30/23 09:24 [id number] 04/30/23 09:40 04/30/23 09:24 Wound Center Nurse [...] Date Recorded By Document 04/30/23 12:15 PL [id number] 04/30/23 12:17 PL 04/30/23 12:15 Wound Center [...] Disc -Expiration Date 01/29/28 -Product Lot Number [id number] -Percent Used 100 -Bleeding Controlled with [...] Date Recorded By Document 04/30/23 09:59 AK [id number] 04/30/23 10:00 AK Undo 04/30/23 09:59 AK Adjusting Time [id number] 04/30/23 10:01 AK Assessment/Plan Assessment/Plan (1) Non-pressure [...] No signs of infection. Pain: May take agoo-bzv-yivhumc Tylenol as needed for discomfort. Host factors: Basal cell carcinoma left lower extremity, edema. ? I answered all the patient's questions.? To return to the wound healing center in 1 week or call sooner if the patient has any questions or concerns. 05/07/2342 <Electronically signed by Lindsey Walsh DPM> Cosigner Signature (if applicable): CC: ~ Signed [facility] Work Phone: 1(344) 182-814906-01-2023 Progress note Author Lindsey Walsh [facility] April 30, 2023 12:52pm Note Date/Time April 30, 2023 9:50a m [facility] [address] [place] [address] Progress Note - Wound Care 04/30/23 0946 MR#: [id number] Acct: [id number] Name: VICKIE GONZALEZ Rep #:[id number] : [...] locally at the wound care center at [facility]. She states following a few days [...] Date Recorded By Document 04/30/23 09:24 JF [id number] 04/30/23 09:40 JANIE 04/30/23 09:24 WC - Today's Visit Information Type of service Follow-up Visit (Physician/MUSIC VIDEO PRODUCER ) Arrival Mode Ambulatory Patient Identification Verified [...] Date Recorded By Document 04/30/23 09:24 JANIE [id number] 04/30/23 09:40 JF 04/30/23 09:24 Wound Center [...] No signs of infection. Pain: May take vvwa-ctc-nszzjqk Tylenol as needed for discomfort. Host factors: Basal cell carcinoma left lower extremity, edema. ? I answered all the patient's questions.? To return to the wound healing center in 1 week or call sooner if the patient has any questions or concerns. 04/30/23 1252 <Electronically signed by Lindsey Walsh DPM> Cosigner Signature (if applicable): CC: ~ Signed [facility] Work Phone: 1(324) 606-612305-25-2023 Progress note Author Lindsey Walsh [facility] April 23, 2023 10:15am Note Date/Time April 23, 2023 9:34a m [facility] [address] [place] [address] Progress Note - Wound Care 04/23/23 0933 MR#: [id number] Acct: [id number] Name: VICKIE GONZALEZ Rep #:[id number] : [...] locally at the wound care center at [facility]. She states following a few days [...] Date Recorded By Document 04/16/23 08:58 DONNIE [id number] 04/16/23 09:14 NJ Document 04/23/23 09:23 JANIE [id number] 04/23/23 09:27 JF 04/16/23 04/23/23 08:58 09:23 - Today's Visit Information Type of service Initial Visit Follow-up Visit (Physician/MUSIC VIDEO PRODUCER ) Arrival Mode Ambulatory Ambulatory Patient Identification [...] Date Recorded By Document 04/16/23 08:58 DONNIE [id number] 04/16/23 09:14 NJ Document 04/23/23 09:23 JANIE [id number] 04/23/23 09:27 JANIE 04/16/23 04/23/23 08:58 09:23 [...] Amt Small (1-33%) Small (1-33%) -Granulation Quality Sandstone Pale -Slough/Fibrin Yes Yes -Necrosis Amt Large [...] Date Recorded By Document 04/16/23 10:10 NAYELI [id number] 04/16/23 10:11 PL 04/16/23 10:10 Wound Center [...] Date Recorded By Document 04/16/23 10:02 DL [id number] 04/16/23 10:04 DL 04/16/23 10:02 Wound Care [...] No signs of infection. Pain: May take wzhj-sqk-vwniztl Tylenol as needed for discomfort. Host factors: Basal cell carcinoma left lower extremity, edema. I answered all the patient's questions. To return to the wound healing center in 1 week or call sooner if the patient has any questions or concerns. 04/23/23 1015 <Electronically signed by Lindsey Walsh DPM> Cosigner Signature (if applicable): CC: ~ Signed [facility] Work Phone: 1(725) 137-188405-18-2023 History and physical note Author Lindsey Walsh [facility] April 16, 2023 12:36pm Note Date/Time April 16, 2023 9:19a m [facility] [address] [place] [address] H&P Exam - Wound Care 04/16/23 0919 MR#: [id number] Acct: [id number] Name: VICKIE GONZALEZ Rep #:[id number] : [...] locally at the wound care center at [facility]. She states following a few days after the procedure she was on the treadmill and did have some swelling of the lower extremity site to which she feels may have worsened the wound. States she will continue to follow with dermatology for continued monitoring/follow-up. She currently denies any N/V/F/chills. Denies further complaints. [facility] Medical History (Updated 04/16/23 @ 12:17 [...] Date Recorded By Document 04/16/23 08:58 DONNIE [id number] 04/16/23 09:14 DONNIE 04/16/23 08:58 WC - [...] Date Recorded By Document 04/16/23 08:58 DONNIE [id number] 04/16/23 09:14 AK 04/16/23 08:58 Wound Center [...] Attached -Granulation Amt Small (1-33%) -Granulation Quality Sandstone -Slough/Fibrin Yes -Necrosis Amt Large (67-100%) -Necrotic [...] No signs of infection. Pain: May take rhbt-iyy-vmpfzur Tylenol as needed for discomfort. Host factors: Basal cell carcinoma left lower extremity, edema. I answered all the patient's questions. To return to the wound healing center in 1 week or call sooner if the patient has any questions or concerns. 04/16/23 0043 <Electronically signed by Lindsey Walsh DPM> Cosigner Signature (if applicable): CC: ~ Signed [facility] Work Phone: 1(292) 389-518402-22-2023 History of Present illness Narrative* Angelica Hsieh Tonia, MUSIC VIDEO PRODUCER - 01/21/2023 2:30 PM EST [facility] 1 year TAVR follow up Patient Name: Vickie Gonzalez Admit Date: MR #: [id number] : 1955 Physicians: Nicol Ibanez MD (Family) [...] es, she will be discharged from the [facility]. She will continue to follow with PCP and primary microwave supervisor. Hypertension, hypertensive today in the office but home readings are significantly lower ranging between 120-140 systolic. Have asked her to track BP three times a week over the next 2 weeks and notify [facility] if systolic greater than 150 consistently. [...] TR and RVSP 46mmHg. Last cardiac catheterization an2025 showed patent DYE and MISSY with 100% [...] Valve Replacement; Surgeon: Lindsey Plummer MD; Location: [facility]; Service: Cardiovascular CARDIAC CATHETERIZATION N/A 01/21/2022 Procedure: Angiogram - Aortic Root; Surgeon: Lindsey Plummer MD; Location: [facility]; Service: Cardiovascular CARDIAC CATHETERIZATION N/A 01/21/2022 Procedure: Temporary Pacemaker; Surgeon: Lindsey Plummer MD; Location: [facility]; Service: Cardiovascular CARDIAC CATHETERIZATION N/A 01/21/2022 Procedure: Valvuloplasty - Aortic Valve; Surgeon: Lindsey Plummer MD; Location: [facility]; Service: Cardiovascular HC LEFT HEART CATH N/A 01/15/2022 Procedure: LEFT HEART CATH; Surgeon: Silvio Mckeon MD; 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 Yes Historical Provider, [id number]-[id number]-ALXS ORAL Take 1 tablet by mouth daily [...] Component Value Date HGBA1C 6.1 (H) 01/09/2022 @GVYVCWY47@ Echocardiogram complete Result Date: 01/21/2023 Patient Info Name: VICKIE GONZALEZ Age: 67 years : 1955 Gender: Female Ht: 167 cm Wt: 105 kg BSA: 2.26 m2 HR: 1 bpm BP: 157 / 89 mmHg Technical Quality: Fair Exam Date: 01/21/2023 9:06 AM Patient Status: Outpatient Torch Straightener: Shirin Rabago, MILLER, RDCS (PE, AE) Exam Type: ECHOCARDIOGRAM COMPLETE Study Info Indications - Valve disease/murmur Attending Physician: ANGELICA RANDALL Referring Physician: [id number], TONIA; [id number] BMI: 37.73 kg/m2 Summary 1. Left ventricular [...] LVOT VTI/AV VTI Ratio 0.4 LVOT Stroke Relhsj92 ml LVOT Stroke Index 23.93 ml/m2 Pulmonic Valve Name Value Normal PV Regurgitation Doppler IL Peak End Diastolic Velocity 128 cm/s Mitral [...] on 01/21/2023 10:15 AM documented in this [id number] Note* Addendum Note - Terrie Oh RN - 01/19/2023 6:49 AM ESTAddended by: TERRIE [place] on: 01/19/2023 06:49 AM Modules accepted: Orders [id number] Miscellaneous Notes* Addendum Note - Terrie Oh RN - 01/19/2023 6:49 AM ESTAddended by: TERRIE [place] on: 01/19/2023 06:49 AM Modules accepted: Orders documented in this [id number] History of Present illness Narrative* Angelica Randall CNP - 02/19/2022 11:24 AM EDT [facility] 30 DAY TAVR FOLLOW UP Patient Name: Vickie Gonzalez Admit Date: MR #: [id number] : 1955 Physicians: Nicol Ibanez MD (Family) [...] Valve Replacement; Surgeon: Lindsey Plummer MD; Location: [facility]; Service: Cardiovascular CARDIAC CATHETERIZATION N/A 01/21/2022 Procedure: Angiogram - Aortic Root; Surgeon: Lindsey Plummer MD; Location: [facility]; Service: Cardiovascular CARDIAC CATHETERIZATION N/A 01/21/2022 Procedure: Temporary Pacemaker; Surgeon: Lindsey Plummer MD; Location: [facility]; Service: Cardiovascular CARDIAC CATHETERIZATION N/A 01/21/2022 Procedure: Valvuloplasty - Aortic Valve; Surgeon: Lindsey Plummer MD; Location: [facility]; Service: Cardiovascular HC LEFT HEART CATH N/A 01/15/2022 Procedure: LEFT HEART CATH; Surgeon: Silvio Mckeon MD; 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 Yes Historical Provider, QKMRJXN-IDNGGJGBH-EZDI ORAL Take 1 tablet by mouth daily [...] Component Value Date HGBA1C 6.1 (H) 01/09/2022 @BDUELPJ51@ ECG 12 Lead Result Date: 01/22/2022 Sinus rhythm with 1st degree AV block Otherwise normal ECG Confirmed by SONA SEGURA MD ([id number]) on01/22/2022 9:10:34 AM ECG 12 Lead Result Date: 01/22/2022 Sinus rhythm with 1st degree AV block Nonspecific T wave abnormality Abnormal ECG When compared with ECG of 21-JAN-2022 12:50, (unconfirmed) No significant change was found Confirmed by OSNA SEGURA MD ([id number]) on 01/22/2022 9:08:00 AM [...] Date: 01/21/2022 12:12 PM Patient Status: Outpatient Torch Straightener: Jolanta Klein RDCS, ЮЛИЯ Exam Type: ECHOCARDIOGRAM LIMITED WITH CONTRAST Study Info Indications - INTRAOP TAVR Attending Physician: LINDSEY PLUMMER Referring Physician: [id number] Chase; [id number] BMI: 36.32 kg/m2 Summary 1. Limited two-dimensional, [...] Date: 01/21/2022 1:41 PM Patient Status: Outpatient Tailer Off:Muriel Medina RVT, RDMS Referring Physician: TONIA Jimenez; Attending Physician: LINDSEY PLUMMER Indications Z98.890 - Other specified postprocedural states - left femoral artery pseudoaneurysm, please perform compression therapy if able Procedure Description 59722 Duplex scan of lower extremity arteries or [...] Date: 01/22/2022 8:51 AM Patient Status: Inpatient Torch Straightener: Geraldo Carlos RDCS, ЮЛИЯ Exam Type: ECHOCARDIOGRAM COMPLETE Study Info Indications - Other Attending Physician: LINDSEY PLUMMER Referring Physician: TONIA Jimenez; [id number] BMI: 37.28 kg/m2 Summary 1. Leftventricular systolic [...] Name Value Normal MV Doppler MV Decel Dillingham 386 cm/s2 MV PHT 77 ms MV [...] on 01/22/2022 05:15 PM documented in this [id number] Note* Addendum Note - Terrie Oh RN - 02/13/2022 7:54 AM EDTAddended by: TERRIE [place] on: 02/13/2022 07:54 AM Modules accepted: Orders [id number] Miscellaneous Notes* Addendum Note - Terrie Oh RN - 02/13/2022 7:54 AM EDTAddended by: TERRIE [place] on: 02/13/2022 07:54 AM Modules accepted: Orders documented in this [id number] History of Present illness Narrative* Angelica Randall CNP - 02/03/2022 10:00 AM EST Telephone Visit Via Phone Call [facility]INIV[facility] [place] [address] [place] [phone] Telephone Visit [facility] 02/03/2022 Angelica Randall CNP Provider Location: office Patient Location Workforce Planner: None Patient Location: Patient's Home Patient: Vickie [...] there are inherent diagnostic limitations compared to fnyj-th-eupa evaluations. We elected toproceed with the telephone [...] Take 1 tablet by mouth daily . KKCDJFS-NFMQLRORK-LPAX ORAL Take 1 tablet by mouth daily [...] symptoms. She will follow up with the [facility] again at4 weeks post TAVR with TTE, labwork and ECG. I have spent 16 minutes with the patient reviewing the HPI and Plan of Care. documented in this [id number] Hospital course Narrative* Angelica Randall CNP - 01/22/2022 10:54 AM EST DISCHARGE SUMMARY Patient: Vickie Gonzalez Date of : 1955 Site: [facility] Family Provider: Nicol Ibanez MD [...] Take 1 tablet by mouth daily . BLRMDCV-OOWPRCVRB-FYPV ORAL Take 1 tablet by mouth daily [...] Provider: Nicol Ibanez MD, Address: [address] / [place] [address] Follow Up: Phase 2 Cardiac Rehabilitation[facility] Please call ext. [phone] to schedule. Call in 2 week(s) Nicol Ibanez MD [address] [place] [address] Follow up Please call to schedule follow up appt for 8 weeks from discharge Angelica Randall CNP [address] [address] Follow up Office has scheduled appts at 2 weeks and 4 weeks from discharge Blaine Silveira MD [address] [phone] Follow up Please call to schedule follow up appt with Dr. Silveira Additional Information: Patient instructions, including activity, were given to the patient/family at discharge. Please seethe After Visit Summary in the electronic medical record for details. Time spent on discharge: > 30 minutes Completed by: Angelica Randall CNP on 01/22/22, 10:54 AM documented in this [id number] Consult note* Marsha Torres RN - 01/22/2022 8:58 AM EST AVS reviewed with patient/family. Discussed importance of medications, follow up appointments, and Cardiac Rehab with patient/family.Discussed with patient that their physician has referred him/her to our outpatient Cardiac Rehabilitation program. A Cardiac Rehabilitation nurse will contact patientor patient may call [phone] for additional information. [facility] brochure pro vided to patient/family.The Cardiac Rehabilitation Program will be provided the patient's referral information and pertinent patient details and history. Patient chosen location is . [id number] Consult note* Marsha Torres RN - 01/22/2022 8:58 AM EST AVS reviewed with patient/family. Discussed importance of medications, follow up appointments, and Cardiac Rehab with patient/family.Discussed with patient that their physician has referred him/her to our outpatient Cardiac Rehabilitation program. A Cardiac Rehabilitation nurse will contact patientor patient may call [phone] for additional information. [facility] Card[facility] brochure pro vided to patient/family.The Cardiac Rehabilitation Program will be provided the patient's referral information and pertinent patient details and history. Patient chosen location is . documented in this [id number] Evaluation + Plan note* Assessment & Plan Note - Angelica Randall CNP - 01/22/2022 8:12 AM EST Associated Problem(s): Severe aortic stenosis S/p TAVR with 34mm Evolut Pro Plus via RFA [id number] Miscellaneous Notes* Assessment & Plan Note - [...] (66 y.o.) Date of Service: 01/21/2022 CSN: [id number] Procedure(s): Transcatheter Aortic Valve Replacement TRANSCATHETER AORTIC VALVE REPLACEMENT FEMORAL APPROACH Pre-Operative Diagnoses: * severe aortic stenosis Post-Operative Diagnoses: * Same as Pre-Op Diagnosis Surgeon(s) and Role: Panel 1: * Lindsey Plummer MD - Primary * Stanley Grant MD Panel 2: * Meir Arthur MD - Primary * Robert Pugh MD Anesthesiologist: Chapito Mohan MD Student Nurse Oil And [employer] Drafter: Deep [employer] Operator: Kishan Rascon RN; Alena Barker, TECHNOLOGIST; Gina Ann RN; Judd Hoover RN Tube Puller: Zulma Bowen Scrub Person: ST Raven; Danette [...] Implant Name Type Inv. Item Serial No. Seed Tester Lot No. LRB No. Used Action CLOSURE PERCLOSE PROSTYLE - [id number] Closure Device CLOSURE PERCLOSE PROSTYLE GARAY VAS N/A 2 Implanted VALVE 34MM EVOLUT PRO AORTIC - [id number] Percutaneous Valve VALVE 34MM EVOLUT PRO AORTIC [id number] [employer] N/A 1 Implanted Drain(s): * No LDAs found * Wound(s): * No LDAs found * Robert Pugh MD 01/21/2022 12:24 PM * Op Note - Robert Pugh MD - 01/21/2022 7:22 AM EST VICKIE GONZALEZ [id number] 1955 DATE 01/21/2022 OPERATIVE REPORT SURGEON ROBERT [...] satisfactory condition. MD Killian VILLATORO 01/21/2022 12:30 [id number] T 01/21/2022 12:47 WJF/MODL documented in this [id number] History of Present illness Narrative* Angelica Randall CNP - 01/22/2022 8:04 AM EST Patient Name: Vickie Gonzalez MR #: [id number] POD # 1 Subjective: No complaints Objective: [...] discuss with SH team documented in this [id number] Note* Quick Note - Gaby Evans RN - 01/22/2022 4:58 AM EST .. Patient oriented to room and call system: yes Goal and Plan of Care written on whiteboard: yes Dual RN skin assessment completed with: Kaley Barcenas How will patient get home at discharge: Family will take pt home [id number] Note* Brief Op Note - Robert Pugh MD - 01/21/2022 12:24 PM EST Brief Post Operative Note Patient Name: Vickie Gonzalez : 1955 (66 y.o.) Date of Service: 01/21/2022 CSN: [id number] Procedure(s): Transcatheter Aortic Valve Replacement TRANSCATHETER AORTIC VALVE REPLACEMENT FEMORAL APPROACH Pre-Operative Diagnoses: * severe aortic stenosis Post-Operative Diagnoses: * Same as Pre-Op Diagnosis Surgeon(s) and Role: Panel 1: * Lindsey Plummer MD - Primary * Stanley Grant MD Panel 2: * Meir Arthur MD - Primary * Robert Pugh MD Anesthesiologist: Chapito Mohan MD 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 Item Serial No. Seed Tester Lot No. LRB No. Used Action CLOSURE PERCLOSE PROSTYLE - [id number] Closure Device CLOSURE PERCLOSE PROSTYLE GARAY VAS N/A 2 Implanted VALVE 34MM EVOLUT PRO AORTIC - [id number] Percutaneous Valve VALVE 34MM EVOLUT PRO AORTIC [id number] [employer]ON[employer] N/A 1 Implanted Drain(s): * No LDAs found * Wound(s): * No LDAs found * Robert Pugh MD 01/21/2022 12:24 PM [employer] Work Phone: 1(448) 628-612902-22-2022 Attending History and physical note* Angelica Randall CNP - 01/21/2022 10:05 AM EST INTERVAL HISTORY AND PHYSICAL Patient Name: Vickie Gonzalez Admit Date: 2220101 MR #: [id number] : 1955 The H&P has been reviewed [...] Name: Vickie Gonzalez Admit Date: MR #: [id number] : 1955 Physicians: Nicol Ibanez MD (Family) [...] tablet by mouth daily . Historical Provider, QDJEHML-SDWKDEQOJ-VTTN ORAL Take 1 tablet by mouth daily [...] Wt 106.3 kg (234 lb 5.6 oz) PsX048% BMI 37.82 kg/m General: Alert, cooperative, no [...] Component Value Date HGBA1C 6.1 (H) 01/09/2022 @RVFCIFZ24@ CT TAVR Chest Abdomen Pelvis without hydration [...] acute process in the abdomen or pelvis. Scopial Fashion/tde Workstation ID: [id number] Carotid Duplex Result Date: 01/09/2022 Patient Info Name: VICKIE GONZALEZ Age: 66 years : 1955 Gender: Female Exam Date: 01/09/2022 11:00 AM Patient Status: Outpatient Tailer Off: Corina BOWDEN RVT^^^^ Referring Physician: ANGELICA RANDALL ; Attending Physician: ANGELICA RANDALL Indications I35.0 - Aortic valve stenosis, severe Z01.810 - Pre-operative cardiovascular examination R09.89 - Other specified symptoms and signs involving the circulatory and respiratory systems - Preop TAVR Procedure Description 61419 Duplex examination using B-mode, color and spectral [...] (valve) insufficiency Referring Physician: BLAINE SILVEIRA ; [id number] BMI:36.64 kg/m2 Summary 1. Left ventricular systolic [...] mmHg MV VTI 28 cm MV Decel Dillingham 718 cm/s2 MV PHT 48 ms MVArea [...] cm/s AR VTI 179 cm AR Decel Dillingham 490 cm/s2 AR PHT 283 ms AR [...] ml/m2 16-34 RA Dimensions RA Systolic Major [place] Length (4C) 7.17 cm <=5.30 RAArea (4C) 28.7 cm2 <=18.0 RA Area (4C) Index 13 cm2/m2 RA ESV (4C MOD) 90 ml 15-27 RA ESV Index (4C MOD) 40 ml/m2 <=27 Report Signatures Finalized by Diego Fox MD, [facility] on 12/30/2021 05:14 PM XR Chest [...] stable. Stable examination. Stable cardiomegaly. Workstation ID: [id number] History and physical note* Angelica Randall CNP - 01/21/2022 10:05 AM EST INTERVAL HISTORY AND PHYSICAL Patient Name: Vickie Gonzalez Admit Date: [id number] MR #: [id number] : 1955 The H&P has been reviewed [...] Name: Vickie Gonzalez Admit Date: MR #: [id number] : 1955 Physicians: Nicol Ibanez MD (Family) [...] tablet by mouth daily . Historical Provider, ZNZUUEW-[id number]-OVFC ORAL Take 1 tablet by mouth daily [...] Wt 106.3 kg (234 lb 5.6 oz) LrB799% BMI 37.82 kg/m General: Alert, cooperative, no [...] Component Value Date HGBA1C 6.1 (H) 01/09/2022 @DEIVWNI43@ CT TAVR Chest Abdomen Pelvis without hydration [...] the abdomen or pelvis. VK/tde Workstation ID: [id number] Carotid Duplex Result Date: 01/09/2022 Patient Info Name: VICKIE GONZALEZ Age: 66 years : 1955 Gender: Female Exam Date: 01/09/2022 11:00 AM Patient Status: Outpatient Tailer Off: Corina BOWDEN RVT^^^^ Referring Physician: ANGELICA RANDALL ; Attending Physician: ANGELICA RANDALL Indications I35.0 - Aortic valve stenosis, severe Z01.810 - Pre-operative cardiovascular examination R09.89 - Other specified symptoms and signs involving the circulatory and respiratory systems - Preop TAVR Procedure Description 01140 Duplex examination using B-mode, color and spectral [...] (valve) insufficiency Referring Physician: BLAINE SILVEIRA ; [id number] BMI:36.64 kg/m2 Summary 1. Left ventricular systolic [...] mmHg MV VTI 28 cm MV Decel [place] 718 cm/s2 MV PHT 48 ms MVArea [...] cm/s AR VTI 179 cm AR Decel [place] 490 cm/s2 AR PHT 283 ms AR [...] ml/m2 16-34 RA Dimensions RA Systolic [place] Length (4C) 7.17 cm <=5.30 RAArea (4C) [...] stable. Stable examination. Stable cardiomegaly. Workstation ID: [id number] documented in this [id number] Note* Op Note - Robert Pugh MD - 01/21/2022 7:22 AM EST VICKIE GONZALEZ [facility] [id number] 1955 DATE 01/21/2022 OPERATIVE REPORT SURGEON ROBERT [...] condition. ROBERT PUGH MD D 01/21/2022 12:30 [id number] T 01/21/2022 12:47 WJF/MODL [id number] Nurse Surgical operation note* Luly Arceo RN - 01/17/2022 12:24 PM EST [facility] Surgical Department Patient Instructions for [facility]: Prior to surgery: Please bathe [...] if desired. 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 Pull up to the [...] to view our online educational program in [employer]? It is very helpful to watch this as it can help you understand your surgery preparation process here at [facility]. It will provide you with [...] contact surgeon's office with any additional questions. [id number] Nurse Note* Luly Arceo RN - 01/17/2022 12:24 PM EST [facility] Surgical Department Patient Instructions for [facility]: Prior to surgery: Please bathe [...] if desired. 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 Pull up to the [...] to view our online educational program in [employer]? It is very helpful to watch this as it can help you understand your surgery preparation process here at [facility]. It will provide you with [...] with any additional questions. documented in this [id number] Miscellaneous Notes* Assessment & Plan Note - [...] Lindsey Plummer MD, MSc, GILBERTO, FACC, FSCAI. [facility] documented in this [id number] History of Present illness Narrative* Lindsey Plummer MD - 01/09/2022 8:05 PM EST [facility] Consult Heart & Vascular [facility] 01/09/2022 Lindsey Plummer MD [facility] [address] [place] [id number] Patient: Vickie Gonzalez Date of : 1955 [...] Lindsey Plummer MD, MSc, GILBERTO, FACC, FSCAI. [facility] Follow-up: No follow-ups on [...] Final Result by Muriel Guerra RN (01/09/2022 4775) Echocardiogram complete Final Result by Diego Fox MD (12/30/2021 7942) [facility] (Obiee Report Developer read) (Results Pending) HOME Medications: Patient's Medications [...] Take 1 tablet by mouth daily . EPGGYOE-HVEDWBMIF-EEQT ORAL Take 1 tablet by mouth daily [...] LDLCALC, LDLDIRECT, TRIG, HDL documented in this [id number] History of Present illness Narrative* Meir Arthur MD - 01/09/2022 1:07 PM EST [facility] TAVR CONSULTATION Patient Name: Vcikie Gonzalez Admit Date: MR #: [id number] : 1955 Physicians: Nicol Ibanez MD (Family) [...] tablet by mouth daily . Historical Provider, KXYSYYG-TSLBNKAGV-EYFE ORAL Take 1 tablet by mouth daily [...] Wt 106.3 kg (234 lb 5.6 oz) XaD769% BMI 37.82 kg/m General: Alert, cooperative, no [...] Component Value Date HGBA1C 6.1 (H) 01/09/2022 @XUDPVYD16@ CT TAVR Chest Abdomen Pelvis without hydration [...] acute process in the abdomen or pelvis. Scopial Fashion/tde Workstation ID: [id number] Carotid Duplex Result Date: 01/09/2022 Patient Info Name: VICKIE GONZALEZ Age: 66 years : 1955 Gender: Female Exam Date: 01/09/2022 11:00 AM Patient Status: Outpatient Tailer Off: Corina BOWDEN RVT^^^^ Referring Physician: ANGELICA RANDALL ; Attending Physician: ANGELICA RANDALL Indications I35.0 - Aortic valve stenosis, severe Z01.810 - Pre-operative cardiovascular examination R09.89 - Other specified symptoms and signs involving the circulatory and respiratory systems - Preop TAVR Procedure Description 93992 Duplex examination using B-mode, color and spectral [...] (valve) insufficiency Referring Physician: BLAINE SILVEIRA ; [id number] BMI:36.64 kg/m2 Summary 1. Left ventricular systolic [...] mmHg MV VTI 28 cm MV Decel [place] 718 cm/s2 MV PHT 48 ms MVArea [...] cm/s AR VTI 179 cm AR Decel [place] 490 cm/s2 AR PHT 283 ms AR [...] ml/m2 16-34 RA Dimensions RA Systolic Major [place] Length (4C) 7.17 cm <=5.30 RAArea (4C) [...] stable. Stable examination. Stable cardiomegaly. Workstation ID: [id number] * Angelica Randall CNP - 01/09/2022 12:44 PM EST [facility] TAVR CONSULTATION Patient Name: Vickie Gonzalez Admit Date: MR #: [id number] : 1955 Physicians: Nicol Ibanez MD (Family) [...] tablet by mouth daily . Historical Provider, ICSXIJI-ZHZLJGMSB-KFZC ORAL Take 1 tablet by mouth daily [...] Wt 106.3 kg (234 lb 5.6 oz) WtG589% BMI 37.82 kg/m General: Alert, cooperative, no [...] Component Value Date HGBA1C 6.1 (H) 01/09/2022 @OVNGECA97@ CT TAVR Chest Abdomen Pelvis without hydration [...] acute process in the abdomen or pelvis. Scopial Fashion/tde Workstation ID: [id number] Carotid Duplex Result Date: 01/09/2022 Patient Info Name: VICKIE GONZALEZ Age: 66 years : 1955 Gender: Female Exam Date: 01/09/2022 11:00 AM Patient Status: Outpatient Tailer Off: Corina BOWDEN RVT^^^^ Referring Physician: ANGELICA RANDALL ; Attending Physician: ANGELICA RANDALL Indications I35.0 - Aortic valve stenosis, severe Z01.810 - Pre-operative cardiovascular examination R09.89 - Other specified symptoms and signs involving the circulatory and respiratory systems - Preop TAVR Procedure Description 29542 Duplex examination using B-mode, color and spectral [...] (valve) insufficiency Referring Physician: BLAINE SILVEIRA ; [id number] BMI:36.64 kg/m2 Summary 1. Left ventricular systolic [...] mmHg MV VTI 28 cm MV Decel [place] 718 cm/s2 MV PHT 48 ms MVArea [...] cm/s AR VTI 179 cm AR Decel [place] 490 cm/s2 AR PHT 283 ms AR [...] ml/m2 16-34 RA Dimensions RA Systolic Major [place] Length (4C) 7.17 cm <=5.30 RAArea (4C) 28.7 cm2 <=18.0 RA Area (4C) Index 13 cm2/m2 RA ESV (4C MOD) 90 ml 15-27 RA ESV Index (4C MOD) 40 ml/m2 <=27 Report Signatures Finalized by Diego Fox MD, [facility] on 12/30/2021 05:14 PM XR Chest [...] stable. Stable examination. Stable cardiomegaly. 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, but stopped * Assessment & Plan Note - Blaine Silveira MD - 06/10/2021 11:29 AM EDT Associated Problem(s): Aortic insufficiency symptoms could also be Aortic Stenosis/AI will recheck echo * Assessment & Plan Note - Blaine Silveira MD - 06/10/2021 11:24 AM EDT Associated Problem(s): 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 Has had 2 spells of chest / jaw discomfort and shortness of breath, relieved with rest Will get a stress, she will also check and walk and if gets predictable may need a cath continue asa/metoprolol and will give sl ntg documented in this [id number] History of Present illness Narrative* Blaine Silveira MD - 06/10/2021 11:34 AM EDT Patient Name: Vickie Gonzalez MR #: [id number] Interventional Cardiology Blaine Silveira MD, [facility] Phys[facility] 06/10/21 Dear Nicol Ibanez MD, Vickie Gonzalez was seen in follow up for : Problem Coronary Artery Disease Involving [place] Coronary Artery of [place] Heart Without Angina Pectoris CABG 2000 Cath 2010 all grafts open Aortic Insufficiency Moderate to Severe Asx AI-- same 12/2017 only mild-moderate Elevated Sed Rate Hld (Hyperlipidemia) Assessment and Plan 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 Has had 2 [...] and also could be fibrosiing mediastinitis 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 KQKCJHS-OHKMYAICC-IABO ORAL Take 1 tablet by mouth daily [...] patient is not nervous/anxious. documented in this [id number] Instructions* Patient Instructions* Zoila Cueto MA - 06/10/2021 11:15 AM EDT How to contact your Care Team: Provider: Dr. Silveira Nurse: Iliana Madsen RN In case of an emergency please call 911. REFILLS: When in need for refills please call your care team or the office at [phone]. Please include medication name, pharmacy name, and specify 30-day or 90-day supply. Please check with your pharmacy within 24 hours of request for your refill. You must follow up as directed to continue current refills. Thank you! [facility]* Diagnosis 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- Primary [facility] Diagnosis 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 Nonrheumatic aortic valve insufficiency Elevated sed rate Elevated sedimentation rate Mixed hyperlipidemia [facility]* Diagnosis Nonrheumatic aortic valve insufficiency- Primary [facility]* Diagnosis Nonrheumatic aortic valve insufficiency- Primary [facility] Diagnosis Aortic valve stenosis, severe- Primary Aortic valve disorders Pre-operative cardiovascular examination Other specified symptoms and signs involving the circulatory and respiratory systems [facility] Diagnosis Aortic valve stenosis, severe- Primary Aortic valve disorders Pre-operative cardiovascular examination Other abnormal findings in urine Abnormal coagulation profile Abnormal coagulation profile Dyspnea, unspecified type Abnormal finding of blood chemistry, unspecified [facility]* Diagnosis Encounter for preprocedure screening laboratory testing for COVID-19- Primary [facility] Diagnosis Encounter for preoperative screening laboratory testing for COVID-19 virus- Primary [facility] Diagnosis Encounter for preoperative screening laboratory testing for COVID-19 virus- Primary [facility]* Diagnosis Severe aortic insufficiency- Primary Aortic valve stenosis, severe Aortic valve disorders Pre-operative cardiovascular examination [facility] Diagnosis Aortic valve stenosis, severe Aortic valve disorders Pre-operative cardiovascular examination [facility]* Diagnosis Aortic valve stenosis, severe- Primary Aortic valve disorders Severe aortic insufficiency Aortic valve stenosis, severe Aortic valve disorders Severe aortic insufficiency Aortic valve stenosis, severe Aortic valve disorders Severe aortic insufficiency [facility]* Diagnosis Aortic valve stenosis, severe Aortic valve disorders Severe aortic insufficiency Encounter for preprocedure screening laboratory testing for COVID-19- Primary Aortic valve stenosis, severe Aortic valve disorders Severe aortic insufficiency [facility]* Diagnosis S/P TAVR (transcatheter aortic valve replacement)- Primary [facility]* Diagnosis Severe aortic stenosis- Primary Aortic valve disorders S/P TAVR (transcatheter aortic valve replacement) [facility] S/P TAVR (transcatheter aortic valve replacement)- Primary [facility] Diagnosis S/P TAVR (transcatheter aortic valve replacement)- Primary Shortness of breath Shortness of breath [facility] Diagnosis S/P TAVR (transcatheter aortic valve replacement)- Primary [facility] Diagnosis S/P TAVR (transcatheter aortic valve replacement)- Primary Hypertension, unspecified type [facility]* Diagnosis Onset Date Resolution Status Basal cell carcinoma (BCC) of left lower extremity acute [id number] acute BMI 40.0-44.9, adult chronic HTN (hypertension) chronic [facility] Work Phone: Evaluation note* Diagnosis Onset Date Resolution Status Basal cell carcinoma (BCC) of left lower extremity acute [id number] acute BMI 40.0-44.9, adult chronic HTN (hypertension) chronic Basal cell carcinoma (BCC) of left lower extremity acute [id number] acute BMI 40.0-44.9, adult chronic HTN (hypertension) chronic 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 [facility] Work Phone: Evaluation note* Diagnosis Onset Date Resolution Status Basal cell carcinoma (BCC) of left lower extremity acute [id number] acute BMI 40.0-44.9, adult chronic HTN (hypertension) chronic Basal cell carcinoma (BCC) of left lower extremity acute [id number] acute BMI 40.0-44.9, adult chronic HTN (hypertension) chronic 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 Basal cell carcinoma (BCC) of left lower extremity acute [id number] acute BMI 40.0-44.9, adult chronic HTN (hypertension) chronic 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 [facility] Work Phone: Evaluation note* Diagnosis Onset Date Resolution Status Basal cell carcinoma (BCC) of left lower extremity acute [id number] acute BMI 40.0-44.9, adult chronic HTN (hypertension) chronic Basal cell carcinoma (BCC) of left lower extremity acute [id number] acute BMI 40.0-44.9, adult chronic HTN (hypertension) chronic 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 Work Phone: Evaluation note* Diagnosis Osteoarthritis of right knee, unspecified osteoarthritis type- Primary Hypertension, unspecified type [facility]* Diagnosis Osteoarthritis of right knee- Primary Osteoarthrosis, unspecified whether generalized or localized, lower leg 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- Primary Osteoarthritis of right knee, unspecified osteoarthritis type Severe aortic insufficiency Osteoarthritis of right knee, unspecified osteoarthritis type documented [facility]No assessment [facility] Work [facility]: Evaluation note* Diagnosis Osteoarthritis of right knee- Primary Osteoarthrosis, unspecified whether generalized or localized, lower leg MSSA (methicillin susceptible Staphylococcus aureus)- Primary Methicillin susceptible Staphylococcus aureus in conditions classified elsewhere and of unspecified site Osteoarthritis of right knee, unspecified osteoarthritis type [facility]* Diagnosis Osteoarthritis of right [...] right knee replacement [facility] Diagnosis Status post total right knee replacement- Primary [facility]* Diagnosis Status post total right knee replacement- Primary [facility]* Diagnosis Status post total right knee replacement- Primary [facility]* Diagnosis Status post total right knee replacement- Primary [facility]* Diagnosis Status post total right knee replacement- Primary [facility]* Diagnosis Status post total right knee replacement- Primary [facility]* Diagnosis Status post total right knee replacement- Primary [facility]* Diagnosis Status post total right knee replacement- Primary [facility]* Diagnosis Status post total right knee replacement- Primary documented in this encounter [facility]* Diagnosis Status post total right knee replacement- Primary documented in this encounter [facility] note* Diagnosis Status post total right knee replacement- Primary documented in this encounter [facility]* Diagnosis Status post total right knee replacement- Primary [facility]* Attachments The following attachments cannot be sent through Care Everywhere. * Transcatheter Aortic Valve Implantation (LIONEL): Post-op ([place]) [facility] Additional Instructions Ice your left eye several times a day for the next few days, follow-up with your PCP and return for any worsening of your symptoms.[facility] Work Phone: Patient's home Plan of care note* Visit Details [facility] Discipline -[facility] Problems Problem Start Date Status Goals Interventions Wound Care and/or Skin Problems Disciplines: [facility] 01/27/2024 Active 1 goal linked to scheduled/documented intervention 1 goal intervention scheduled/documented in this visit Assess and Instruct Home Visit Disciplines: [facility] 01/27/2024 Active 1 goal linked to scheduled/documented intervention 4 goal interventions scheduled/documented in this visit Medication Management Disciplines: [facility] 01/27/2024 Active 1 goal linked to scheduled/documented intervention 1 goal intervention scheduled/documented in this visit Pain Management Disciplines: [facility] 01/27/2024 Active 1 goal linked to scheduled/documented [...] [facility] of Care Discipline -[facility] Problems Problem Start Date Status Goals Interventions Wound Care and/or Skin Problems Disciplines: [facility] 01/27/2024 Active 1 goal linked to scheduled/documented intervention 1 goal intervention scheduled/documented in this visit Assess and Instruct Home Visit Disciplines: [facility] 01/27/2024 Active 1 goal linked to scheduled/documented intervention 4 goal interventions scheduled/documented in this visit Medication Management Disciplines: [facility] 01/27/2024 Active 1 goal linked to scheduled/documented intervention 1 goal intervention scheduled/documented in this visit Pain Management Disciplines: [facility] 01/27/2024 Active 1 goal linked to scheduled/documented [...] Management Goal:Pain Completed [facility]* Visit Details [...] Care Plan Scheduled documented [facility] this [facility]* Visit Details Visit Type -CORPORATE DIRECTOR Routine Visi t Discipline -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 Problems [...] also Clinician taught: patient Clinician instructed on: ferry captain educated pt on importance of increased elevation frequency d/t considerable swelling this date which is hindering ROM. pt verbalized understanding, plan to elevate at least 4 times a day c foot above heart as instructed pt CORPORATE DIRECTOR this date. chair flex stretch and heel slides x10, ext prop 5'. QS, SAQ, SLR, LAQ x20 ea to improve mobility and strength. pt c/o significant tightness in knee during flex stretching and mod increased pain. ferry captain educated pt on importance of pushing [...] flex during amb d/t tightness in knee. ferry captain provided demo of good toe off and allowing knee to bend during toe off to improve mobility and flex rom. pt c mod improvement p ferry captain demo. Therapist provided cueing for proper TA from seated position, including reaching back for chair and feeling chair c back of legs to avoid falls. Cueing also provided for slow, eccentric control c return to sitting position. pt sba for sit to supine ta this date. ferry captain assisted pt c placement of pillows for cp and elevation p tx to allow for relaxed position to allow pt to remain elevated for 1 hour to decrease inflammation Patient/caregiver is able to teach back 90% of instruction. [facility]* Visit Details Visit Type -CORPORATE DIRECTOR Routine Visi t Discipline -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 Problems [...] in quad tendon insertion during flex stretching. ferry captain provided mod assist c flex stretching to improve mobility. ferry captain provided education on importance of flex [...] amb 175' today c fww and sba. ferry captain provided demo and vc for increased [...] 95% of instruction. documented in this encounter [facility] Plan of care note* Visit Details Visit Type -SN HH Routine Vi sit Discipline -Chcf Problems Problem Start Date Status Goals Interventions Wound Care and/or Skin Problems Disciplines: Chcf 01/27/2024 Active 1 goal linked to scheduled/documented intervention 1 goal intervention scheduled/documented in this visit Assess and Instruct Home Visit Disciplines: Chcf 01/27/2024 Active 1 goal linked to scheduled/documented intervention 4 goal interventions scheduled/documented in this visit Medication Management Disciplines: Chcf 01/27/2024 Active 1 goal linked to scheduled/documented intervention 1 goal intervention scheduled/documented in this visit Pain Management Disciplines: Chcf 01/27/2024 Active 1 goal linked to scheduled/documented [...] Management Goal:Pain Completed [facility] Visit Details Visit Type -CORPORATE DIRECTOR Routine Visi t Discipline -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 Problems [...] toe gait pattern c decresaed vc needed. ferry captain instructed pt to continue c frequent [...] 95% of instruction. [facility] Visit Details Visit Type -BEAM SEALER Routine Discipline -Chcf Problems Problem Start Date Status Goals Interventions Wound Care and/or Skin Problems Disciplines: Chcf 01/27/2024 Active 1 goal linked to scheduled/documented intervention 1 goal intervention scheduled/documented in this visit Assess and Instruct Home Visit Disciplines: Chcf 01/27/2024 Active 1 goal linked to scheduled/documented intervention 4 goal interventions scheduled/documented in this visit Medication Management Disciplines: Chcf 01/27/2024 Active 1 goal linked to scheduled/documented intervention 1 goal intervention scheduled/documented in this visit Pain Management Disciplines: Chcf 01/27/2024 Active 1 goal linked to scheduled/documented [...] Management Goal:Pain Completed [facility] Visit Details Visit Type -CORPORATE DIRECTOR Routine Visi t Discipline -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 Problems [...] progress. very tight, firm end feel c ferry captain assisted heel slides this date Patient/caregiver is able to teach back 95% of instruction. Instruct Mobility Problem:Mobility Goal:Mobility Completed Patient reports: walking more but does report increased pain this date d/t decerase pain med freqency. Clinician taught: patient Clinician instructed on: ferry captain educated pt on not weaning off [...] 95% of instruction. [facility] Visit Details Visit Type -SN HH [place] t of Care Discipline -Chcf Problems Problem Start Date Status Goals Interventions Wound Care and/or Skin Problems Disciplines: Chcf 01/27/2024 Active 1 goal linked to scheduled/documented intervention 1 goal intervention scheduled/documented in this visit Assess and Instruct Home Visit Disciplines: Chcf 01/27/2024 Active 1 goal linked to scheduled/documented intervention 4 goal interventions scheduled/documented in this visit Medication Management Disciplines: Chcf 01/27/2024 Active 1 goal linked to scheduled/documented intervention 1 goal intervention scheduled/documented in this visit Pain Management Disciplines: Chcf 01/27/2024 Active 1 goal linked to scheduled/documented [...] Management Goal:Pain Completed [facility] Visit Details Visit Type -BEAM SEALER Routine Discipline -Chcf Problems Problem Start Date Status Goals Interventions Wound Care and/or Skin Problems Disciplines: Chcf 01/27/2024 Active 1 goal linked to scheduled/documented intervention 1 goal intervention scheduled/documented in this visit Assess and Instruct Home Visit Disciplines: Chcf 01/27/2024 Active 1 goal linked to scheduled/documented intervention 4 goal interventions scheduled/documented in this visit Medication Management Disciplines: Chcf 01/27/2024 Active 1 goal linked to scheduled/documented intervention 1 goal intervention scheduled/documented in this visit Pain Management Disciplines: Chcf 01/27/2024 Active 1 goal linked to scheduled/documented [...] Management Goal:Pain Completed [facility] Visit Details Visit Type -CORPORATE DIRECTOR Routine Visi t Discipline -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 Problems [...] in quad tendon insertion during flex stretching. ferry captain provided mod assist c flex stretching to improve mobility. ferry captain provided education on importance of flex [...] amb 175' today c fww and sba. ferry captain provided demo and vc for increased [...] 95% of instruction. [facility] Visit Details Visit Type -CORPORATE DIRECTOR Routine Visi t Discipline -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 Problems [...] toe gait pattern c decresaed vc needed. ferry captain instructed pt to continue c frequent [...] 95% of instruction. [facility] Visit Details Visit Type -CORPORATE DIRECTOR Routine Visi t Discipline -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 Problems [...] also Clinician taught: patient Clinician instructed on: ferry captain educated pt on importance of increased elevation frequency d/t considerable swelling this date which is hindering ROM. pt verbalized understanding, plan to elevate at least 4 times a day c foot above heart as instructed pt CORPORATE DIRECTOR this date. chair flex stretch and heel slides x10, ext prop 5'. QS, SAQ, SLR, LAQ x20 ea to improve mobility and strength. pt c/o significant tightness in knee during flex stretching and mod increased pain. ferry captain educated pt on importance of pushing [...] flex during amb d/t tightness in knee. ferry captain provided demo of good toe off and allowing knee to bend during toe off to improve mobility and flex rom. pt c mod improvement p ferry captain demo. Therapist provided cueing for proper TA from seated position, including reaching back for chair and feeling chair c back of legs to avoid falls. Cueing also provided for slow, eccentric control c return to sitting position. pt sba for sit to supine ta this date. ferry captain assisted pt c placement of pillows for cp and elevation p tx to allow for relaxed position to allow pt to remain elevated for 1 hour to decrease inflammation Patient/caregiver is able to teach back 90% of instruction. [facility] Visit Details Visit Type -CORPORATE DIRECTOR Routine Visi t Discipline -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 Problems [...] RA for DC to outpt PT at [facility] Home Exercise Program Problem:Home Exercise Program Goal:Home [...] pt amb c sc and sba today. ferry captain provided vc and demo for proper [...] 100% of instruction. [facility] Visit Details Visit Type - HH [place] t of Care Discipline -Chcf Problems Problem Start Date Status Goals Interventions Wound Care and/or Skin Problems Disciplines: Chcf 01/27/2024 Active 1 goal linked to scheduled/documented intervention 1 goal intervention scheduled/documented in this visit Assess and Instruct Home Visit Disciplines: Chcf 01/27/2024 Active 1 goal linked to scheduled/documented intervention 4 goal interventions scheduled/documented in this visit Medication Management Disciplines: Chcf 01/27/2024 Active 1 goal linked to scheduled/documented intervention 1 goal intervention scheduled/documented in this visit Pain Management Disciplines: Chcf 01/27/2024 Active 1 goal linked to scheduled/documented [...] Type -SN HH Non-OASIS/ Discipline DC Discipline -Chcf Problems Problem Start Date Status Goals Interventions Wound Care and/or Skin Problems Disciplines: Chcf 01/27/2024 Resolved on 02/11/2024 1 goal linked to scheduled/documented intervention 1 goal intervention scheduled/documented in this visit Assess and Instruct Home Visit Disciplines: Chcf 01/27/2024 Resolved on 02/11/2024 1 goal linked to scheduled/documented intervention 4 goal interventions scheduled/documented in this visit Medication Management Disciplines: Chcf 01/27/2024 Resolved on 02/11/2024 1 goal linked to scheduled/documented intervention 1 goal intervention scheduled/documented in this visit Pain Management Disciplines: Chcf 01/27/2024 Resolved on 02/11/2024 1 goal linked [...] Management Goal:Pain Scheduled [facility] Visit Details Visit Type -CORPORATE DIRECTOR Routine Visi t Discipline -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 Problems [...] RA for DC to outpt PT at [facility] Home Exercise Program Problem:Home Exercise Program Goal:Home [...] pt amb c sc and sba today. ferry captain provided vc and demo for proper [...] Progress note* Actions Pt admitted in to [facility]. Reviewed care plan, medications, pain mgmt, ice and elevation, S&S to report, wound care and safety with ambulation. Patient/caregiver verbalized understanding and agreement. [facility]. Reviewed care plan, [...] teach wound/skin/incision care as per discharge instructions Supply Chain Specialist Goals: Patient remains safe at home, Patient [...] questions or concerns. [facility] Actions Homebound [...] determined by P.T. [facility] Actions Homebound [...] determined by P.T. [facility] Actions CP [...] determined by P.T. [facility] Actions [facility]. Reviewed care plan, medications, pain mgmt, ice and elevation, S&S to report, wound care and safety with ambulation. Patient/caregiver verbalized understanding and agreement. [facility] Actions CP assessment meds [...] Home: 2-story house [facility] Actions Homebound Status Criteria [...] determined by P.T. [facility] Actions Homebound Status Criteria [...] determined by P.T. documented [facility] Progress note* Actions Homebound Status Criteria [...] Progress note* Actions Pt admitted in to [facility]. Reviewed care plan, [...] determined by P.T. [facility]* Auth/Cert Specialty Diagnoses / Procedures Referred By Contac t Referred To Contact Diagnoses severe aortic stenosis Procedures IL TRANSCATHETER TRANSAPICAL REPLACEMT AORTIC VALVE Transcatheter Aortic Valve Replacement TRANSCATHETER AORTIC VALVE REPLACEMENT FEMORAL APPROACH Referral ID Status Reason Start Date Expiration Date Visits Re quested Visits Authorized [id number] 1 1 [facility] Assessments Diagnosis SOB (shortness of breath) Shortness of breath Diagnosis SOB (shortness of breath) Shortness of breath 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 Fibrosing mediastinitis Mediastinitis Nonrheumatic aortic valve insufficiency Diagnosis Nonrheumatic aortic valve insufficiency Summary Purpose Family History No Family History Records Found Relationship Condition Age at Onset Recorded Date/T ayleen mother Diabetes mellitus Unknown father Obstructive sleep apnea syndrome Unknown Advance Directives No Advanced Directives Records FoundDocuments on File Type Date Recorded 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 Advance Directives and Living Will Documents on File Type Date Recorded 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 Advance Directives and Livin g Will Advance Directives and Livin g Will 06/14/2019 12:00 AM Documents on File Type Date Recorded 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 Advance Directives and Livin g Will Advance Directives and Livin g Will 06/14/2019 12:00 AM Documents on File Type Date Recorded 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 Advance Directives and Livin g Will Advance Directives and Livin g Will 01/09/2022 7:51 AM Documents on File Type Date Recorded 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 Advance Directives and Livin g [...] Documents on File Type Date Recorded 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 Advance Directives and Livin g [...] No June 25, 2023 10:48am Power of Grubber No June 25 10:48am Advance Directive Response Recorded Date/ Time Living Will No June 25, 2023 9:48am Power of Grubber No June 25 9:48am Latest Code Status [...] Echocardiogram complete Blaine Silveira MD [address] [place] [address] Status Reason Specialty Diagnoses / Procedures Referre d By Contact Referred To Contact Closed Cardiology Diagnoses Nonrheumatic aortic valve insufficiency Procedures Echocardiogram complete Blaine Silveira MD [address] [place] [address] Status Reason Specialty Diagnoses / Procedures Referred By Contact Referred To Contact Authorized Cardiology Diagnoses 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 Procedures ECG 12 Lead Blaine Silveira MD [address] [place] [address] Status Reason Specialty Diagnoses / Procedures Referred By Contact Referred To Contact New Request Radiology Diagnoses 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 Procedures NM Myocardial Perfusion [place] [address] [place] [address] Status Reason Specialty Diagnoses / Procedures Referred By Contact Referred To Contact New Request Cardiology Diagnoses Nonrheumatic aortic valve insufficiency Procedures [place] [address] [place] [address] Status Reason Specialty Diagnoses / Procedures Referred By Contact Referred To Contact Pending Review Cardiology Diagnoses Nonrheumatic aortic valve insufficiency Procedures [place] [address] [place] [address] Specialty Diagnoses / Procedures Referred By Contac t Referred To Contact Cardiology Diagnoses Aortic valve stenosis, severe Pre-operative cardiovascular examination Procedures ECG 12 Lead Dye, Angelica Hsieh CNP [address] [place] [address] Referral ID Status Reason Start Date Expiration Date V isits Requested Visits Authorized [id number] Authorized 12/31/2021 12/31/2022 1 1 Specialty Diagnoses / Procedures Referred By Contac t Referred To Contact Cardiology Diagnoses Aortic valve stenosis, severe Pre-operative cardiovascular examination Other specified symptoms and signs involving the circulatory and respiratory systems Procedures Carotid Duplex Dye, Angelica Hsieh MUSIC VIDEO PRODUCER [address] [place] [address] Referral ID Status Reason Start Date Expiration Date V isits Requested Visits Authorized [id number] Authorized 12/31/2021 12/31/2022 1 1 Specialty Diagnoses / Procedures Referred By Contac t Referred To Contact Cardiology Diagnoses S/P TAVR (transcatheter aortic valve replacement) Procedures ECG 12 Lead ToniaAngelica Claudia, MUSIC VIDEO PRODUCER [address] [facility] [place] [facility] [address] [address] Referral ID Status Reason Start Date Expiration Date Visits Re quested Visits Authorized [id number] Closed 01/22/2022 01/22/2023 1 1 Specialty Diagnoses / Procedures Referred By Contac t Referred To Contact Cardiology Diagnoses S/P TAVR (transcatheter aortic valve replacement) Procedures Echocardiogram complete Angelica Randall, MUSIC VIDEO PRODUCER [address] [facility] [place] [facility] [address] [place] [id number] Referral ID Status Reason Start Date Expiration Date Visits Re quested Visits Authorized [id number] Closed 01/22/2022 01/22/2023 1 1 Specialty Diagnoses / Procedures Referred By Contac t Referred To Contact Cardiac Rehabilitation Diagnoses S/P TAVR (transcatheter aortic valve replacement) Angelica Randall, MUSIC VIDEO PRODUCER [address] [facility] [place] [facility] [address] [place] [id number] Referral ID Status Reason Start Date Expiration Date V isits Requested Visits Authorized [id number] Authorized 01/21/2022 01/21/2023 1 1 Referral ID Status Reason Start Date Expiration Date Visits Re quested Visits Authorized [id number] Closed 06/19/2022 06/19/2023 1 1 Referral ID Status Reason Start Date Expiration Date V isits Requested Visits Authorized [id number] Authorized 06/19/2022 06/19/2023 1 1 Specialty Diagnoses / Procedures Referred By Contac t Referred To Contact Cardiology Diagnoses Osteoarthritis of right knee, unspecified osteoarthritis type Jass Pepe MD [address] [place] [address] [facility]y [address] [place], [place] [address] [place] [address] Referral ID Status Reason Start Date Expiration Date Visits Requested Visits Authorized [id number] Authorized Specialty Services Required/Pat ient's Best Interest 09/26/2024 1 1 Specialty Diagnoses / Procedures Referred By Yanet t Referred To Contact Radiology Diagnoses Osteoarthritis of right knee, unspecified osteoarthritis type Procedures CT Knee Right Without Contrast Jass Pepe MD [address] [place] [address] Referral ID Status Reason Start Date Expiration Date V isits Requested Visits Authorized [id number] New Request 09/27/2023 09/26/2024 1 1 Specialty Diagnoses / Procedures Referred By Yanet guerra Referred To Contact Rehabilitation Diagnoses Status post total right knee replacement Jass Pepe MD [address] [place] [address] [place] [phone] Referral ID Status Reason Start Date Expiration Date V isits Requested Visits Authorized [id number] Authorized 02/01/2024 01/31/2025 1 1 History of Present Illness * Blaine Silveira MD - 06/06/2019 2:56 PM EDT Patient Name: Vickie Gonzalez [facility] MR #: [id number] Interventional Cardiology Blaine Silveira MD, [facility] 06/06/19 Dear Nicol Ibanez MD, Vickie Gonzalez was seen in follow up for : Problem Coronary Artery Disease Involving [place] Coronary Artery of [place] Heart Without Angina Pectoris CABG 2001 Cath 2010 all grafts open Aortic Insufficiency Moderate to Severe Asx AI-- same 12/2017 Fibrosing Mediastinitis Dx at time of cabg Assessment and Plan 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 Rare angina Doing [...] puffs 2 (two) times a day . [id number] ORAL Take 1 tablet by mouth daily [...] cell carcinoma (BCC) of left lower extremity [id number] BMI 40.0-44.9, adult HTN (hypertension) Chief Complaint WOUND WOUND Reason for Visit Basal cell carcinoma (BCC) of left lower extremity [id number] BMI 40.0-44.9, adult HTN (hypertension) Basal cell carcinoma (BCC) of left lower extremity [id number] BMI 40.0-44.9, adult HTN (hypertension) Non-pressure chronic ulcer of left calf with fat layer exposed Chief Complaint WOUND WOUND WOUND LAC Reason for Visit Basal cell carcinoma (BCC) of left lower extremity [id number] BMI 40.0-44.9, adult HTN (hypertension) Basal cell carcinoma (BCC) of left lower extremity [id number] BMI 40.0-44.9, adult HTN (hypertension) Non-pressure chronic ulcer of left calf with fat layer exposed Basal cell carcinoma (BCC) of left lower extremity [id number] BMI 40.0-44.9, adult HTN (hypertension) Non-pressure chronic ulcer of left calf with fat layer exposed Chief Complaint WOUND WOUND WOUND LAC WOUND Reason for Visit Basal cell carcinoma (BCC) of left lower extremity [id number] BMI 40.0-44.9, adult HTN (hypertension) Basal cell carcinoma (BCC) of left lower extremity [id number] BMI 40.0-44.9, adult HTN (hypertension) Non-pressure chronic ulcer of left calf with fat layer exposed Basal cell carcinoma (BCC) of left lower extremity [id number] BMI 40.0-44.9, adult HTN (hypertension) Non-pressure chronic ulcer of left calf with fat layer exposed Basal cell carcinoma (BCC) of left lower extremity [id number] HTN (hypertension) Non-pressure chronic ulcer of left calf with fat layer exposed Chief Complaint E ORDERS Chief Complaint E ORDERS EORDER Additional Source Comments INFORMATION SOURCE (unrecogn ized section and content) DATE CREATED AUTHOR 05/24/2018 [facility] DATE CREATED AUTHOR AUTHOR'S ORGANIZ ATION 09/10/2022 [facility] DATE CREATED AUTHOR AUTHOR'S ORGANIZ ATION 01/25/2023 [facility] DATE CREATED AUTHOR AUTHOR'S ORGANIZ ATION 02/22/2023 [facility] DATE CREATED AUTHOR AUTHOR'S ORGANIZ ATION 11/15/2023 [facility] DATE CREATED AUTHOR AUTHOR'S ORGANIZ ATION 02/16/2024 [facility] DATE CREATED AUTHOR AUTHOR'S ORGANIZ ATION 03/15/2024 [facility] DATE CREATED AUTHOR AUTHOR'S ORGANIZ ATION 03/30/2024 [facility] DATE CREATED AUTHOR AUTHOR'S ORGANIZ ATION 01/14/2025 [facility] Reason for Visit (unrecogniz ed section and content) Reason Comments Annual Exam no complaints or con cerns for todays visit Status Reason Specialty Diagnoses / Procedures Referre d By Contact Referred To Contact Closed Cardiology Diagnoses Nonrheumatic aortic valve insufficiency Procedures Echocardiogram complete Blaine Silveira MD [address] [place] [address] Reason Comments Annual Exam Jaw Pain Shortness of Breath Reason Comments Initial Visit (Intake) TAVR Reason Comments Follow-up 2 Week TAVR Reason Comments Follow-up 1 Year TAVR Reason Comments Follow-up Specialty Diagnoses / Procedures Referred By Arcadioac t Referred To Contact Cardiology Diagnoses Osteoarthritis of right knee, unspecified osteoarthritis type Jass Pepe MD [address] [place] [address] Blaine Silveira MD [address] [place] [address] Referral ID Status Reason Start Date Expiration Date V isits Requested Visits Authorized [id number] Closed Specialty Services Required/Leda ent's Best Interest 09/27/2023 09/26/2024 1 1 Reason Onset Date Comments Medication Refill 01/11/2024 Reason Comments Pre-op Exam Specialty Diagnoses / Procedures Referred By Contac t Referred To Contact Referral ID Status Reason Start Date Expiration Date Visits Re quested Visits Authorized [id number] 1 1 Reason Onset Date Comments Medication Refill 02/08/2024 Reason Comments Follow-up Suture / Staple Removal Reason Comments 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 Specialty Diagnoses / Procedures Referred By Contac t Referred To Contact Rehabilitation Diagnoses Status post total right knee replacement Jass Pepe MD [address] [place] [phone] [facility] [address] [place] [address] Referral ID Status Reason Start Date Expiration Date V isits Requested Visits Authorized [id number] Authorized 02/01/2024 01/31/2025 13 199 Specialty Diagnoses / Procedures Referred By Yanet guerra Referred To Contact Rehabilitation Diagnoses Status post total right knee replacement Jass Pepe MD [address] [place], [place] [id number] [facility] [address] [place] [address] Assessment & Plan Note - Blaine Silveira [...] issues Associated Problem(s): 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 Rare angina Doing well, Medications reviewed and will continue current meds Followup 1 year documented in this encounter Care Teams (unrecognized sec tion and content) Clay Thrower Relationship Specialty Start Date End Date Nicol Ibanez MD [address] [place] [address] PCP - General 08/26/11 Jass Pepe MD [address] [place] [address] Consulting Physician Orthopedic Surgery 05/20/16 Clay Thrower Relationship Specialty Start Date End Date Nicol Ibanez MD [address] [place] [address] PCP - General 08/26/11 Jass Pepe MD [address] [place] [address] Consulting Physician Orthopedic Surgery 05/20/16 Clay Thrower Relationship Specialty Start Date End Date Nicol Ibanez MD [address] [place] [address] PCP - General 08/26/11 Jass Pepe MD [address] [place] [address] Consulting Physician Orthopedic Surgery 05/20/16 Clay Thrower Relationship Specialty Start Date End Date Nicol Ibanez MD [address] [place] [address] PCP - General 08/26/11 Jass Pepe MD [address] [place] [address] Consulting Physician Orthopedic Surgery 05/20/16 Clay Thrower Relationship Specialty Start Date End Date Nicol Ibanez MD [address] [place] [address] PCP - General 08/26/11 Jass Pepe MD [address] [place] [address] Consulting Physician Orthopedic Surgery 05/20/16 Clay Thrower Relationship Specialty Start Date End Date Nicol Ibanez MD [address] [place] [address] PCP - General 08/26/11 Jass Pepe MD [address] [facility] [place] [place] [address] Consulting Physician Orthopedic Surgery 05/20/16 Clay Thrower Relationship Specialty Start Date End Date Nicol Ibanez MD [address] [place] [address] PCP - General 08/26/11 Jass Peep MD [address] [facility] [place] [place] [address] Consulting Physician Orthopedic Surgery 05/20/16 Clay Thrower Relationship Specialty Start Date End Date Nicol Ibanez MD [address] [place] [address] PCP - General 08/26/11 Jass Pepe MD [address] [facility] [address] Consulting Physician Orthopedic Surgery 05/20/16 Clay Thrower Relationship Specialty Start Date End Date Nicol Ibanez MD [address] [place] [address] PCP - General 08/26/11 Jass Pepe MD [address] [facility] [place] [place] [address] Consulting Physician Orthopedic Surgery 05/20/16 Clay Thrower Relationship Specialty Start Date End Date Nicol Ibanez MD [address] [place] [address] PCP - General 08/26/11 Jass Pepe MD [address] [place] [address] Consulting Physician Orthopedic Surgery 05/20/16 Clay Thrower Relationship Specialty Start Date End Date Nicol Ibanez MD [address] [place] [address] PCP - General 08/26/11 Jass Pepe MD [address] [place] [address] Consulting Physician Orthopedic Surgery 05/20/16 Clay Thrower Relationship Specialty Start Date End Date Nicol Ibanez MD [address] [place] [address] PCP - General 08/26/11 Jass Pepe MD [address] [place] [address] Consulting Physician Orthopedic Surgery 05/20/16 Team Status: [...] MD Attending Provider, Emergency Provi aleksandar Active Clay Thrower Relationship Specialty Start Date End Date Nicol Ibanez MD [address] [place] [address] PCP - General 08/26/11 Jass Pepe MD [address] [place] [address] Consulting Physician Orthopedic Surgery 05/20/16 Clay Thrower Relationship Specialty Start Date End Date Nicol Ibanez MD [address] [place] [address] PCP - General 08/26/11 Jass Pepe MD [address] [place] [address] Consulting Physician Orthopedic Surgery 05/20/16 Team Status: Active Member Role Status Dates Dr. Nicol Ibanez MD Family Provider Active Dr. Kirill Newell MD Primary Care Provider Active Team Status: Inactive Member Role Status Dates Dr. Kirill Newell MD Primary Care Provide r, Attending Provider, Referring Provider Active Clay Thrower Relationship Specialty Start Date End Date Nicol Ibanez MD [address] [place] [address] PCP - General 08/26/11 Jass Pepe MD [address] [place] [address] Consulting Physician Orthopedic Surgery 05/20/16 Clay Thrower Relationship Specialty Start Date End Date Nicol Ibanez MD [address] [place] [address] PCP - General 08/26/11 Jass Pepe MD [address] [place] [address] Consulting Physician Orthopedic Surgery 05/20/16 Clay Thrower Relationship Specialty Start Date End Date Nicol Ibanez MD [address] [place] [address] PCP - General 08/26/11 Jass Pepe MD [address] [place] [address] Consulting Physician Orthopedic Surgery 05/20/16 Clay Thrower Relationship Specialty Start Date End Date Nicol Ibanez MD [address] [place] [address] PCP - General 08/26/11 Jass Pepe MD [address] [place] [address] Consulting Physician Orthopedic Surgery 05/20/16 Clay Thrower Relationship Specialty Start Date End Date Nicol Ibanez MD [address] [place] [address] PCP - General 08/26/11 Jass Pepe MD [address] [place] [address] Consulting Physician Orthopedic Surgery 05/20/16 Clay Thrower Relationship Specialty Start Date End Date Nicol Ibanez MD [address] [place] [address] PCP - General 08/26/11 Jass Pepe MD [address] [place] [address] Consulting Physician Orthopedic Surgery 05/20/16 Clay Thrower Relationship Specialty Start Date End Date Nicol Ibanez MD [address] [place] [address] PCP - General 08/26/11 Jass Pepe MD [address] [place] [address] Consulting Physician Orthopedic Surgery 05/20/16 Clay Thrower Relationship Specialty Start Date End Date Nicol Ibanez MD [address] [place] [address] PCP - General 08/26/11 Jass Pepe MD [address] [place] [address] Consulting Physician Orthopedic Surgery 05/20/16 Clay Thrower Relationship Specialty Start Date End Date Nicol Ibanez MD [address] [place] [address] PCP - General 08/26/11 Jass Pepe MD [address] [place] [address] Consulting Physician Orthopedic Surgery 05/20/16 Clay Thrower Relationship Specialty Start Date End Date Nicol Ibanez MD [address] [place] [address] PCP - General 08/26/11 Jass Pepe MD [address] [place] [place] [address] Consulting Physician Orthopedic Surgery 05/20/16 Clay Thrower Relationship Specialty Start Date End Date Nicol Ibanez MD [address] [place] [address] PCP - General 08/26/11 Jass Pepe MD [address] [place] [address] Consulting Physician Orthopedic Surgery 05/20/16 Clay Thrower Relationship Specialty Start Date End Date Nicol Ibanez MD [address] [place] [address] PCP - General 08/26/11 Jass Pepe MD [address] [place] [address] Consulting Physician Orthopedic Surgery 05/20/16 Clay Thrower Relationship Specialty Start Date End Date Nicol Ibanez MD [address] [place] [address] PCP - General 08/26/11 Jass Pepe MD [address] [place] [address] Consulting Physician Orthopedic Surgery 05/20/16 Clay Thrower Relationship Specialty Start Date End Date Nicol Ibanez MD [address] [place] [address] PCP - General 08/26/11 Jass Pepe MD [address] [place] [address] Consulting Physician Orthopedic Surgery 05/20/16 Clay Thrower Relationship Specialty Start Date End Date Nicol Ibanez MD [address] [place] [address] PCP - General 08/26/11 Jass Pepe MD [address] [place] [address] Consulting Physician Orthopedic Surgery 05/20/16 Clay Thrower Relationship Specialty Start Date End Date Nicol Ibanez MD [address] [place] [address] PCP - General 08/26/11 Jass Pepe MD [address] [place] [address] Consulting Physician Orthopedic Surgery 05/20/16 Clay Thrower Relationship Specialty Start Date End Date Nicol Ibanez MD [address] [place] [address] PCP - General 08/26/11 Jass Pepe MD [address] [place] [address] Consulting Physician Orthopedic Surgery 05/20/16 Clay Thrower Relationship Specialty Start Date End Date Nicol Ibanez MD [address] [place] [address] PCP - General 08/26/11 Jass Pepe MD [address] [place] [address] Consulting Physician Orthopedic Surgery 05/20/16 Clay Thrower Relationship Specialty Start Date End Date Nicol Ibanez MD [address] [place] [address] PCP - General 08/26/11 Jass Pepe MD [address] [place] [address] Consulting Physician Orthopedic Surgery 05/20/16 Clay Thrower Relationship Specialty Start Date End Date Nicol Ibanez MD [address] [place] [address] PCP - General 08/26/11 Jass Pepe MD [address] [place] [address] Consulting Physician Orthopedic Surgery 05/20/16 Clay Thrower Relationship Specialty Start Date End Date Nicol Ibanez MD [address] [place] [address] PCP - General 08/26/11 Jass Pepe MD [address] [place] [address] Consulting Physician Orthopedic Surgery 05/20/16 Clay Thrower Relationship Specialty Start Date End Date Nicol Ibanez MD [address] [place] [address] PCP - General 08/26/11 Jass Pepe MD [address] [place] [address] Consulting Physician Orthopedic Surgery 05/20/16 Clay Thrower Relationship Specialty Start Date End Date Nicol Ibanez MD [address] [place] [address] PCP - General 08/26/11 Jass Pepe MD [address] [place] [address] Consulting Physician Orthopedic Surgery 05/20/16 Scheduled Active [...] PLACED TUBE OR TUBE less than 14 Divehi For tube administration: dissolve tablet(s) with 4 [...] Thu01/21/22 at 1636, PACU (only), Arterial and Rye Annetta Lines at 300 mmHg 1738 (Canceled [...] BE BASED ON THE PRIMARY CLINICAL RECORDS. [facility] [employer] [facility]. provides no warranty or guarantee of the accuracy or completeness of information in this document.
--- NOTE | 2025-05-30 03:11 | CT_ITS ---
PROCEDURE: CTA CHEST W/WO CONTRAST 05/30/2025 REASON FOR EXAM: HISTORY OF FIBROSING MEDIASTINITIS. TECHNIQUE: CTA CHEST W/WO CONTRAST Multiplanar Sagittal and Coronal images were obtained. CONTRAST: Isovue 370 VOLUME: 93 mL One or more dose reduction techniques were used (e.g., Automated exposure control, adjustment of the mA and/or kV according to patient size, use of iterative reconstruction technique). RADIATION DOSE SUMMARY: CTDlvol: 45 mGy DLP: 594 mGycm COMPARISON: Chest x-ray 12/14/2023 FINDINGS: Unremarkable base of neck and axilla. Thoracic spine scoliosis and degeneration. Normal esophagus. Mildly enlarged heart. Status post AVR. Status post CABG. No aortic dissection. No pulmonary embolism. However, the proximal right pulmonary artery shows moderately severe narrowing, series 2 images 167/179, with surrounding soft tissue, which may represent fibrosis and may be related to the prior ascending aortic repair. Central airways are patent. Small basilar atelectasis. No consolidation, effusion, or pneumothorax. No acute chest wall findings. No acute upper abdominal findings. 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 Progress imaging as clinically dete rmined. Reading Location: [place] [address]
--- NOTE | 2025-05-30 03:11 | CT_ITS ---
PROCEDURE: CTA CHEST W/WO CONTRAST 05/30/2025 REASON FOR EXAM: HISTORY OF FIBROSING MEDIASTINITIS. TECHNIQUE: CTA CHEST W/WO CONTRAST Multiplanar Sagittal and Coronal images were obtained. CONTRAST: Isovue 370 VOLUME: 93 mL One or more dose reduction techniques were used (e.g., Automated exposure control, adjustment of the mA and/or kV according to patient size, use of iterative reconstruction technique). RADIATION DOSE SUMMARY: CTDlvol: 45 mGy DLP: 594 mGycm COMPARISON: Chest x-ray 12/14/2023 FINDINGS: Unremarkable base of neck and axilla. Thoracic spine scoliosis and degeneration. Normal esophagus. Mildly enlarged heart. Status post AVR. Status post CABG. No aortic dissection. No pulmonary embolism. However, the proximal right pulmonary artery shows moderately severe narrowing, series 2 images 167/179, with surrounding soft tissue, which may represent fibrosis and may be related to the prior ascending aortic repair. Central airways are patent. Small basilar atelectasis. No consolidation, effusion, or pneumothorax. No acute chest wall findings. No acute upper abdominal findings. 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 Progress imaging as clinically dete rmined. Reading Location: [place] [address]
[2025-05-30] MEDS: 0.9% Normal Saline (1000mL) 1,000 ML 70 ML IV (03:53)
[2025-05-30 04:46] LABS: Hematocrit 36.5 % (37-47); Hemoglobin 11.9 g/dL (12.0-15.0); Immature Granulocytes Count 0.030 X10^3/uL (0.0-0.0); Mean Corp Hgb Conc 32.6 g/dL (32-36); Mean Corpuscular Volume 88.4 fL (81-99); Mean Platelet Vol. 11.2 fl (6.2-12.0); NRBC Flagged by Analyzer 0 % (0-5); Platelet Count 213 K/mm3 (150-450); RBC Distribution Width CV 14.8 % (11.6-14.6); RBC Distribution Width SD 47.9 fl (35.1-43.9); Red Blood Count 4.13 M/mm3 (4.2-5.4); White Blood Count 8.4 K/mm3 (4.4-11.0)
--- OUTSIDE RECORDS SUMMARY | 2025-05-30 05:18 | XMS RPT_ITS | CCD ---
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 Role Phone Nicol Ibanez Unavailable Unavailable Jass Pepe Unavailable Blaine Silveira Unavailable Unavailable Blaine Silveira Unavailable Unavailable Nicol Ibanez Primary Care Provider Jass Pepe Unavailable [phone] Nicol Ibanez Primary Care Provider Jass Pepe Unavailable [phone] Nicol Ibanez MD Primary Care Provider Jass Pepe MD Unavailable Nicol Ibanez MD Primary Care Provider Jass Pepe MD Unavailable Aida, Robert Lynne Attending Unavailable Fanning, Robert Lynne [...] Unavailable Fanning, Robert Lynne Attending Unavailable Fanning, Robret Lynne Attending Unavailable Fanning, Robert Lynne Attending [...] Unavailable Fanning, Robert Lynne Attending Unavailable Fanning, Roebrt Lynne Attending Unavailable Fanning, Robert Lynne Attending Unavailable Fanning, Robert Lynne Attending Unavailable Fanning, Robert Lynne Attending Unavailable Fanning, Robert Lynne Attending Unavailable Fanning, Robert Lynne Attending Unavailable Fanning, Robert Lynne Attending Unavailable Fanwilliam, Robert Lynne Attending Unavailable Marcelle HARPER, Nicol Osborn Primary Care Provider [phone] Afshin HARPER, Jass Maldonado Unavailable NICOL IBANEZ Primary Care Unavailable TOMMELCHOR, NICOL OSBORN Primary Care Unavailable ANGELICA RANDALL Admitting Unavailable ANGELICA RANDALL Attending Unavailable TOMCHAK, NICOL [...] Unavailable NEWELL, KIRILL A Primary Care Unavailable TOMMELCHOR, NICOL OSBORN Primary Care Unavailable JASS PEPE Referring Unavailab maty PEPE, JASS MALDONADO Admitting Unavailab maty PEPE, JASS MALDONADO Referring Unavailab le TOMMELCHOR, NICOL OSBORN Primary Care Unavailable SHERLYN VILLAVICENCIO Attending Unavailable GABRIEL TOVAR Attending Unavailable AFSHIN, JASS MALDONADO Admitting Unavailab maty PEPE, JASS MALDONADO Referring Unavailab le TOMNICOL ROCHE Primary Care Unavailable BATOOL KAMARA Attending Unavailable JASS PEPE Admitting Unavailab le AFSHIN, JASS MALDONADO Referring Unavailab le TOMCHAK, NICOL IRENA Primary Care Unavailable GABRIEL TOVAR Attending Unavailable [...] Attending Unavailable JASS PEPE Referring Unavailab le GABRIEL TOVAR Attending Unavailable NICOL IBANEZ Primary Care Unavailable JASS PEPE Admitting Unavailab le GABRIEL TOVAR Attending Unavailable JASS PEPE Referring Unavailab le AFSHIN, JASS MALDONADO Admitting Unavailab le TOMCHAK, NICOL OSBORN Primary Care Unavailable BATOOL KAMARA Attending Unavailable JASS PEPE Referring Unavailab le AFSHIN, JASS MALDONADO Admitting Unavailab le TOMCHAK, NICOL OSBORN Primary Care Unavailable JASS PEPE Admitting Unavailab le TOMCHAK, NICOL OSBORN Primary Care Unavailable JASS PEPE Referring Unavailab JASS Rivers Attending Unavailab le TOMMELCHOR, NICOL OSBORN Primary Care Unavailable JASS PEPE Referring Unavailab le TOVAR, GABRIEL Attending Unavailable JASS PEPE Admitting Unavailab le AFSHIN, JASS MALDONADO Referring Unavailab le TOMCHAK, NICOL OSBORN Primary Care Unavailable JASS PEPE Referring Unavailab le BATOOL KAMARA Attending Unavailable NICOL IBANEZ Primary Care Unavailable JASS PEPE Admitting Unavailab le TOMCHAK, NICOL OSBORN Primary Care Unavailable JAVI AMEZCUA Admitting Unavailable JAVI AMEZCUA Referring Unavailable TOMMELCHOR, NICOL OSBORN Primary Care Unavailable JAVI AMEZCUA Attending Unavailable JASS PEPE Admitting Unavailab le AFSHIN, JASS JOEL Referring Unavailab maty IBANEZ NICOL OSBORN Primary Care Unavailable NICOL IBANEZ Primary Care Unavailable JASS PEPE Attending Unavailab NICOL Arambula Primary Care Unavailable BLAINE SILVEIRA Admitting Unavailable BLAINE SILVEIRA Attending Unavailable JASS PEPE Referring Unavailab maty FORDMELCHORNICOL IRENA Primary Care Unavailable JASS PEPE Attending Unavailab NICOL [place]ambula Primary Care Unavailable JASS PEPE Attending Unavailab maty Newell, Kirill Primary Care Unavailable Reece, Kirill Referring Unavailable Cristhian Coleman Attending Unavailable Reece, Kirill Primary Care Unavailable Reece, Kirill Attending Unavailable Reece, Kirill Referring Unavailable Kirill Newell Attending Unavailable Reece, Kirill Referring Unavailable Newell, Kirill Primary Care Unavailable Reece HARPER, Dr. Valdez Primary Care Provider [phone] Dr. Remy Rai DO Emergency Provider [phone] Dr. Nicol Silva DO Admit Provider Unavail able Dr. Nicol Silva DO Attending Provider Unav ailable Allergies Allergy Classification Reported Allergen(s) Allergy Type Date of Onset Reaction(s) Facility NSAIDs (4 sources) Naproxen Drug Allergy 5 [facility] Quinolones (antibiotic) (4 sources) levoFLOXacin Drug Allergy [address] [place] [address] (20 sources) levoFLOXacin; Translations: [LEVOFLOXACIN] Propensity to adverse reactions to drug [address] [place] [address] Work Phone: (20 sources) naproxen; Translations: [NAPROXEN] Propensity to adverse reactions to drug 5 [facility] Work Phone: (1 source) ALLERGIES NOT ON FILE; Translations: [ALLERGIES NOT ON FILE] Propensity to adverse reactions (disorder) [facility] 2 Repository (1 source) Naproxen Drug Allergy 3 [facility] Repository Medications Current Medications Medication Drug Class(es) Dates Sig (Normalized) Sig (Original) aspirin 81 mg chewable tablet (20 sources) [...] 81 mg tablet,delayed release (DR/EC) Active 81 mg PO daily December 22, 2017 1:00am azithromycin 250 mg oral tablet (20 sources) Macrolide Antimicrobial Start: 01-04-2022 azithromycin (ZITHROMAX) 250 MG tablet Start: 08-04-2018 End: 09-02-2018 take 1 tablet by mouth once daily Azithromycin 250 mg tablet Discontinued 250 mg PO daily 6 0 August 04, 2018 12:00am September 02, 2018 10:26am Start: 01-29-2018 End: 03-16-2018 take 1 tablet by mouth once daily Azithromycin 250 mg tablet Discontinued 250 mg PO daily 6 0 January 29, 2018 1:00am March 16, 2018 9:23am RXKEVED-[id number] ORAL (20 sources) take 1 tablet by mouth once daily KTHKHUL-[id number]-[id number] ORAL Take 1 tablet by mouth daily . 0 take 1 tablet by mouth once umm y GCWNXUQ-VZEPERJQU-XDHP ORAL Take 1 tablet by mouth daily . 0 Suspended take 1 tablet by mouth once umm y RWJVRJA-TITTCNVEZ-QUPU ORAL Take 1 tablet by mouth daily . 0 Active take 1 tablet by mouth twice erinn ly UKSVGJL-FTVANKBNY-YNQK ORAL Take 1 tablet by mouth 2 (two) times a day Active cholecalciferol 0.125 mg oral capsule (20 sources) Vitamin D Start: 12-22-2017 take 1 capsule by mouth once daily Cholecalciferol (Vitamin D3) 5,000 unit capsule Active 5000 U PO daily December 22, 2017 1:00am take 1 capsule by mouth once erinn [...] take 1 capsule by mouth at bedtime as needed for sleep Diphenhydramine Hcl (Benadryl) 25 mg capsule Active 25 mg PO AT BEDTIME as needed for sleep September 02, 2018 12:00am take 1 tablet by abel th once [...] . 14 tablet 0 01/11/2024 01/18/2024 Active ipratropium bromide 0.021 mg/actuat metered dose nasal spray (1 source) Anticholinergic Start: 05-29-2025 Ipratropium Upperco 21 mcg (0.03 %) spray,non-aerosol Active INTRANASAL May 29, 2025 12:00am lactobacillus acidophilus 100 mg oral capsule (1 source) Start: 05-29-2025 take 1 capsule by mouth once daily Lactobacillus Acidophilus (Acidophilus) capsule Active 100 mg PO DAILY May 29, 2025 12:00am lactobacillus combo no.11 (Probiotic) 15 billion cell CpSP (20 sources) lactobacillus combo no.11 (Probiotic) 15 billion cell CpSP Take by mouth daily . 0 lactobacillus co mbo no.11 (Probiotic) 15 billion cell CpSP Take by mouth daily . 0 Suspended lactobacillus co mbo no.11 (Probiotic) 15 billion cell CpSP Take by mouth daily . 0 Active levocetirizine dihydrochloride 5 mg oral tablet (1 source) Histamine-1 Receptor Antagonist Start: 05-29-2025 take 1 tablet by mouth once daily Levocetirizine (24hr Allergy Relief) 5 mg tablet Active 5 mg PO DAILY May 29, 2025 12:00am losartan potassium 100 mg oral tablet (20 sources) Angiotensin 2 Receptor Amy Start: 05-29-2025 take 1 tablet by mouth once daily Losartan 100 mg tablet Active 100 mg PO DAILY May 29, 2025 12:00am Start: 01-22-2022 End: 01-22-2022 take 100 mg [...] mg by mouth nightly . 0 Active Magnesium (1 source) Start: 05-29-2025 take 1 tablet by mouth once daily Magnesium 250 mg tablet Active 250 mg PO DAILY May 29, 2025 12:00am 24 hr metoprolol succinate 50 mg extended release oral tablet (20 sources) beta-Adrenergic Amy Start: 05-29-2025 take 1 tablet by mouth once daily Metoprolol Succinate 50 mg tablet extended release 24 hr Active 50 mg PO DAILY May 29, 2025 12:00am Start: 06-10-2019 End: 01-22-2022 take 1 tablet [...] 90 tablet 0 10/27/2018 Active Start: 12-22-2017 End: 05-29-2025 take 1 tablet by mouth once daily Metoprolol Tartrate 50 mg tablet Discontinued 50 mg PO daily December 22, 2017 1:00am May 29, 2025 11:40pm Start: 11-17-2017 take 1 tablet by abel th once daily metoprolol succinate (TOPROL-XL) 50 MG 24 hr tablet Take 1 (one) tablet (50 mg total) by mouth daily. 90 tablet 3 11/17/2017 Active montelukast 10 mg oral tablet (20 sources) Leukotriene Receptor Antagonist Start: 05-29-2025 take 1 tablet by mouth once daily Montelukast 10 mg tablet Active 10 mg PO DAILY May 29, 2025 12:00am Start: 12-22-2017 End: 12-06-2019 take 1 tablet by mouth at bedtime Montelukast (Singulair) 10 mg tablet Discontinued 10 mg PO AT BEDTIME 30 June 11, 2018 9:28am September 02, 2018 10:49am mupirocin 0.02 mg/mg topical ointment (2 sources) [...] omeprazole 20 mg delayed release oral capsule (17 sources) Proton Pump Inhibitor Start: 12-09-2016 End: 05-29-2025 take 1 capsule by mouth once daily omeprazole (PRILOSEC) 20 MG capsule Take 1 (one) capsule (20 mg total) by mouth nightly . 0 12/08/2022 Active oxyCODONE hydrochloride 5 mg oral tablet (20 [...] mg by mouth daily . 0 Active spacer (8 sources) Start: 03-06-2020 spacer Active 0 .ROUTE .MEDSUPPLY 1 0 March 06, 2020 12:00am As directed Start: 03-06-2020 spacer Active 0 .ROUTE .MEDSUPPLY 1 March 05, 2020 11:00pm As directed Start: 03-06-2020 spacer Active 0 .ROUTE .MEDSUPPLY 1 March 06, 2020 12:00am As directed Vitamin B Complex (20 sources) take 1 tablet by abel th once daily b complex vitamins tablet Take [...] tablet by mouth daily . 0 Active Vitamin B Complex (Vitamins B Complex) capsule (1 source) Start: 05-29-2025 Vitamin B Comp chris (Vitamins B Complex) capsule Active 1 NMA PO DAILY May 29, 2025 12:00am Completed/Discontinued Medications Medication Drug Class(es) Dates Sig [...] (two) times a day . 0 Active [id number] 200 actuat albuterol 0.09 mg/actuat metered dose [...] 0815, For 1 dose, Pre-Procedure Start: 12-22-2017 End: 05-29-2025 take 2.5 mg by inhalation every four hours as needed Albuterol Sulfate 2.5 mg /3 mL (0.083 %) solution for nebulization Discontinued 2.5 mg INHALATION Q4H as needed December 22, 2017 1:00am May 29, 2025 11:40pm Start: 12-22-2017 End: 05-29-2025 take 90 ug by inhalation every four hours as needed Albuterol Sulfate (Proair Respiclick) 90 mcg/actuation aerosol powdr breath activated Discontinued 2 NMA INHALATION Q4H as needed for shortness of breath or wheezing 12 05December 22, 2018 11:09am May 29, 2025 11:40pm take 2 puff(s) by in halation every six hours as needed for wheezing albuterol 90 mcg/actuation inhaler Inhale 2 puffs every 6 (six) hours as needed for wheezing. 0 Active albuterol 90 mcg /actuation inhaler Inhale 2 puffs every 6 (six) hours as needed for wheezing. Active amLODIPine 5 mg oral tablet (20 sources) Dihydropyridine Calcium Channel Amy Start: 11-17-2017 End: 05-29-2025 take 1 tablet by mouth once daily Amlodipine 5 mg tablet Discontinued 5 mg PO daily December 22, 2017 1:00am May 29, 2025 11:40pm azelastine hydrochloride 0.137 mg/actuat / fluticasone propionate 0.05 mg/actuat metered dose nasal spray (13 sources) Corticosteroid, Histamine-1 Receptor Antagonist Start: 07-29-2018 End: 12-06-2019 Azelastine-Flutic asone (Dymista) 137-50 mcg/spray spray,non-aerosol Discontinued 1 NMA INTRANASAL TWICE A DAY 22 05July 29, 2018 12:00am December 06, 2019 12:23pm administer into each nostril Start: 07-29-2018 End: 12-06-2019 take 1 spray(s) nasal route twice daily azelastine-fluticasone 137 mcg-50 mcg/spray nasal spray Discontinued 1 SPRAY INTRANASAL TWICE A DAY July 28, 2018 11:00pm December 06, 2019 11:23am administer into each nostril End: 06-10-2021 take 1 spray(s) nasal route twice daily azelastine-fluticasone (DYMISTA) 137-50 mcg/spray Hilbert Instill 1 spray into each nostril 2 (two) times a day . 0 06/10/2021 Discontinued breath-actuated 120 actuat beclomethasone dipropionate 0.08 mg/actuat metered dose inhaler (20 sources) Corticosteroid Start: 03-06-2020 End: 03-08-2020 take 80 ug by inhalation every twelve hours Beclomethasone Dipropionate (Qvar Redihaler) 80 mcg/actuation HFA aerosol breath activated Discontinued 2 NMA INHALATION Q12H 10.6 6 March 06, 2020 12:00am March 08, 2020 9:50am Start: 07-29-2018 End: 12-06-2019 take 80 ug by inhalation every twelve hours Beclomethasone Dipropionate (Qvar Redihaler) 80 mcg/actuation HFA aerosol breath activated Discontinued 2 NMA INHALATION Q12H 10.6 June 27, 2019 11:58am December 06, 2019 12:48pm Start: 07-29-2018 End: 12-06-2019 take 1 puff(s) [...] 02/05/2024 docusate sodium 50 mg / sennosides, longterm 8.6 mg oral tablet (1 source) Start: [...] Pre-Procedure administer 30-60 minutes prior to surgery 120 actuat fluticasone propionate 0.22 mg/actuat metered dose inhaler (20 sources) Corticosteroid Start: 03-08-2020 End: 05-29-2025 Fluticasone Propionate (Flovent Hfa) 220 mcg/actuation HFA aerosol inhaler Discontinued 2 NMA INHALATION TWICE A DAY 11 04March 08, 2020 12:00am May 29, 2025 11:40pm Start: 03-08-2020 Fluticasone Pr opionate (Flovent Hfa) 220 mcg/actuation HFA aerosol inhaler Active 2 INH INHALATION TWICE A DAY March 07, 2020 11:00pm Start: 08-18-2019 End: 12-06-2019 Fluticasone Propionate 50 mcg/actuation spray,suspension Discontinued 2 NMA INTRANASAL DAILY 16 August 18, 2019 12:00am December 06, 2019 12:23pm Start: 08-18-2019 End: 12-06-2019 Fluticasone Propionate Disco ntinued 2 SPRAY INTRANASAL DAILY August 17, 2019 11:00pm December 06, 2019 11:23am Start: 01-19-2018 End: 09-02-2018 take 200 ug by inhalation once daily Fluticasone Furoate (Arnuity Ellipta) 200 mcg/actuation blister with device Discontinued 1 NMA INHALATION daily 29 05January 19, 2018 1:00am September 02, 2018 10:26am [...] time(s) each day Start: 12-22-2017 End: 09-02-2018 take 50 ug nasal route once daily Fluticasone Propionate (Flonase Allergy Relief) 50 mcg/actuation spray,suspension Discontinued 2 NMA INTRANASAL daily 1 3 December 22, 2017 1:00am September 02, 2018 10:26am administer into each nostril Start: 12-22-2017 End: 09-02-2018 Fluticasone Propionate (Flon ase Allergy Relief) 50 mcg/actuation spray,suspension Discontinued 1 SPRAY INTRANASAL daily December 22, 2017 12:00am December 22, 2017 10:44am take 2 spray(s) nasa l route once daily as needed fluticasone propionate (FLONASE) 50 mcg/actuation nasal spray Instill 2 (two) sprays into each nostril daily as needed for allergies . 0 Active 30 actuat fluticasone furoate 0.1 mg/actuat / vilanterol 0.025 mg/actuat dry powder inhaler (8 sources) Corticosteroid, beta2-Adrenergic Agonist Start: 12-22-2017 End: 12-22-2017 Fluticasone Furoate-Vilanterol (Breo Ellipta) 100-25 mcg/dose blister with device Discontinued 1 NMA INHALATION Q24H December 22, 2017 1:00am December 22, 2017 11:44am Start: 12-22-2017 End: 12-22-2017 Fluticasone Furoate-Vilanter ol (Breo Ellipta) 100-25 mcg/dose blister with device [...] in sterile water (SW) 50 mL IVPB naloxone (NARCAN) injection 0.1 mg (1 source) Start: 01-21-2022 End: 01-22-2022 naloxone (NARCAN) injection 0.1 mg nystatin 689801 unt/ml oral suspension (16 sources) Polyene Antifungal Start: 08-10-2018 End: 02-28-2019 take [id number] [IU] by mouth three times daily Nystatin 100,000 unit/mL suspension Discontinued [id number] U PO THREE TIMES A DAY 60 1 August 10, 2018 1:06pm February 28, 2019 2:14pm Candidal stomatitis 2 ml ondansetron 2 mg/ml injection (1 [...] 0-10 mL of mixture polyethylene glycol 3350 70230 mg powder for oral solution (10 sources) [...] 11-17-2017 take 1 tablet by abel th at bedtime Pravastatin 40 mg tablet Active 40 mg PO AT BEDTIME December 22, 2017 1:00am predniSONE 10 mg oral tablet (20 sources) Start: 08-18-2019 End: 05-29-2025 Prednisone 10 mg tablet Discontinued 10 mg PO daily 30 0 August 18, 2019 12:00am May 29, 2025 11:40pm take 4 tabs for three days, then 3 tabs for three days, then 2 tabs for three days, then 1 tab for 3 days Start: 08-16-2019 End: 08-18-2019 take 3 tablets by mouth once daily at mealtime Prednisone 20 mg tablet Discontinued 60 mg PO daily 15 0 August 16, 2019 12:00am August 18, 2019 1:19pm administer with food or milk Start: 08-16-2019 End: 08-18-2019 take 60 mg by mouth once daily at mealtime Prednisone Discontinued 60 MG PO daily August 15, 2019 11:00pm August 18, 2019 12:19pm administer with food or milk Start: 02-09-2019 End: 02-28-2019 Prednisone 10 mg tablet Discontinued 10 mg PO daily 30 0 February 09, 2019 12:00am February 28, 2019 2:14pm take 4 tabs for three days, then 3 tabs for three days, then 2 tabs for three days, then 1 tab for 3 days Start: 01-27-2019 End: 02-09-2019 take 3 tablets by mouth once daily at mealtime Prednisone 20 mg tablet Discontinued 60 mg PO daily 15 0 January 27, 2019 1:00am February 09, 2019 2:36pm administer with food or milk Start: 01-27-2019 End: 02-09-2019 take 60 mg by mouth once daily at mealtime Prednisone Discontinued 60 MG PO daily January 27, 2019 12:00am February 09, 2019 1:36pm administer with food or milk Start: 08-04-2018 End: 09-02-2018 take 3 tablets by mouth once daily at mealtime Prednisone 20 mg tablet Discontinued 60 mg PO daily 15 0 August 04, 2018 12:00am September 02, 2018 10:27am administer with food or milk Start: 08-04-2018 End: 09-02-2018 take 60 mg by mouth once daily at mealtime Prednisone Discontinued 60 MG PO daily August 03, 2018 11:00pm September 02, 2018 9:27am administer with food or milk 1000 ml sodium chloride 9 mg/ml injection [...] End: 01-21-2022 sodium chloride 0.9% (NS) Tiotropium Upperco (8 sources) Anticholinergic Start: 12-22-2017 End: 12-22-2017 take 2.5 ug by inhalation once daily Tiotropium Upperco (Spiriva Respimat) 2.5 mcg/actuation mist Discontinued 2 NMA INHALATION daily December 22, 2017 1:00am December 22, 2017 11:44am Start: 12-22-2017 End: 12-22-2017 take 1 puff(s) by inhalation once daily Tiotropium Upperco (Spiriva Respimat) 2.5 mcg/actuation mist Discontinued 2 PUFF INHALATION daily December 22, 2017 12:00am December 22, 2017 10:44am Start: 12-22-2017 End: 12-22-2017 take 1 puff(s) by inhalation once daily Tiotropium Upperco (Spiriva Respimat) 2.5 mcg/actuation mist Discontinued 2 PUFF INHALATION daily December 22, 2017 1:00am December 22, 2017 11:44am valsartan 160 mg oral tablet (11 sources) Angiotensin 2 Receptor Amy Start: 11-17-2017 End: 05-29-2025 take 1 tablet by mouth once daily Valsartan 160 mg tablet Discontinued 160 mg PO daily December 22, 2017 1:00am May 29, 2025 11:39pm Problems Active Problems Problem Classification Problem Date Documented Date Episodic/Chronic Abdominal hernia (8 sources) Unspecified abdominal hernia without obstruction or gangrene; Translations: [Hernia] 01-19-2018 Episodic Aortic; peripheral; and visceral artery aneurysms (20 sources) Ascending aorta dilatation; Translations: [Thoracic aortic ectasia] Onset: 04-04-2022 04-04-2022 Chronic Bacterial infection; unspecified site (1 source) Infection by methicillin sensitive Staphylococcus aureus; Translations: [Methicillin susceptible Staphylococcus aureus infection, unspecified site] 01-11-2024 Episodic Cardiac dysrhythmias (2 sources) Atrial flutter; Translations: [Unspecified atrial flutter] 05-30-2025 Chronic Cardiac dysrhythmias (4 sources) Palpitations; Translations: [Palpitations] 05-30-2025 Episodic Chronic ulcer of skin (20 sources) Chronic ulcer of skin; Translations: [Non-pressure chronic ulcer of skin of other sites with muscle involvement without evidence of necrosis] 04-16-2023 Chronic Coronary atherosclerosis and other heart disease (20 sources) 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[place] artery; Translations: [Atherosclerotic heart disease of [place] coronary artery without angina pectoris] Onset: 11-05-2015 04-21-2016 Chronic Disorders of lipid metabolism (20 sources) Mixed hyperlipidemia; Translations: [Mixed hyperlipidemia] Onset: 06-10-2021 Chronic E Codes: Fall (5 sources) Falling injury; Translations: [Unspecified fall, initial encounter] 06-25-2023 Episodic Essential hypertension (20 sources) Hypertensive disorder; Translations: [Essential (primary) hypertension] Onset: 01-21-2023 Chronic Genitourinary symptoms and ill-defined conditions (1 source) Abnormal urine; Translations: [Other abnormal findings in urine] Episodic Heart valve disorders (20 sources) Aortic valve regurgitation; Translations: [Nonrheumatic aortic (valve) insufficiency] Onset: 11-05-2015 01-06-2018 Chronic Heart valve disorders (8 sources) Heart murmur; Translations: [Cardiac murmur, unspecified] 01-19-2018 Episodic Open wounds of head; neck; and trunk (6 sources) Laceration - injury; Translations: [Laceration] 06-25-2023 [...] artificial knee joint] Onset: 02-15-2024 01-19-2018 Chronic Comment on above: 2014 Other connective tissue disease (6 sources) Presence of right artificial knee joint; Translations: [Presence of right artificial knee joint] Onset: 01-27-2024 Chronic Other injuries and conditions due to external causes (6 sources) Injury of head; Translations: [Unspecified injury of head, initial encounter] 06-25-2023 Episodic Other lower respiratory disease (3 sources) Dyspnea; Translations: [Dyspnea, unspecified] Episodic Other lower respiratory disease (8 sources) Dyspnea on exertion; Translations: [Shortness of breath] 01-19-2018 Episodic Other lower respiratory disease (8 sources) Chronic cough; Translations: [Chronic cough] 12-22-2017 Episodic Other non-epithelial cancer of skin (20 sources) Basal cell carcinoma of lower extremity; Translations: [Basal cell carcinoma of skin of left lower limb, including hip] 04-16-2023 Episodic Other non-traumatic joint disorders (2 sources) Pain in right knee; Translations: [Pain in right knee] Onset: 09-29-2023 Episodic Other nutritional; endocrine; and metabolic disorders (9 sources) Body mass index 40+ - severely [...] coagulation profile] Episodic Other upper respiratory disease (8 sources) Allergic rhinitis; Translations: [Allergic rhinitis, unspecified] 07-29-2018 Chronic Other upper respiratory disease (20 sources) Sclerosing mediastinitis; Translations: [Mediastinitis] Onset: 11-05-2015 04-21-2016 Episodic Unclassified (2 sources) Mediastinitis; Translations: [Fibrosing [...] Translations: [Shortness of breath] Onset: 02-19-2022 Episodic Residual codes; unclassified (2 sources) Pain, unspecified; Translations: [Pain, unspecified] Onset: 09-14-2023 Episodic Results Test Name Value Interpretation Reference Range Facility Absolute lymphocyte countOrd ered By: Remy Rai on 05-30-2025 Lymphocytes Auto (Unsp spec) [#/Vol] 2.26 10*3/uL 0.83-4.51 [facility] Absolute neutrophil countOrd ered By: Remy Rai on 05-30-2025 Neutrophils (Bld) [#/Vol] 5.7 10*3/uL 2.0-7.7 [facility] Anion gap in Serum or Plasma Ordered By: Remy Rai on 05-30-2025 Anion gap [Moles/Vol] 12 mmol/L 5-15 [facility] Automated lymphocyte count a s percentage of total leukocytesOrdered By: Remy Rai on 05-30-2025 Lymphocytes/100 WBC Auto (Unsp spec) 24.9 % 19-41 [facility] BUN/creatinine ratioOrdered By: Remy Rai on 05-30-2025 Urea nitrogen/Creatinine [Mass ratio] 19.0 mg/mg 10-20 [facility] Basophil percentageOrdered B y: Remy Rai on 05-30-2025 Basophils/100 WBC (Bld) 0.4 % 0-1 [facility] Carbon dioxide, total [Moles /volume] in Central venous bloodOrdered By: Remy Rai on 05-30-2025 CO2 [Moles/Vol] 23.9 mmol/L 21.0-32.0 [facility] Chloride assayOrdered By: Polina Rai on 05-30-2025 Chloride [Moles/Vol] 103 mmol/L 98-108 [facility] Eosinophil percentageOrdered By: Remy Rai on 05-30-2025 Eosinophils/100 WBC (Bld) 2.9 % 0-5 [facility] Erythrocyte distribution wid th ratioOrdered By: Remy Rai on 05-30-2025 Erythrocyte distribution width (RBC) [Ratio] 14.8 % High 11.6-14.6 [facility] Erythrocyte distribution wid th standard deviationOrdered By: Remy Rai on 05-30-2025 Erythrocyte distribution width (RBC) [Ratio] 47.8 fl High 35.1-43.9 [facility] Glomerular filtration rate ( GFR) estimation/1.73 sq m using serum, plasma, or whole bOrdered By: Remy Rai on 05-30-2025 GFR/1.73 sq M.predicted among non-blacks MDRD (S/P/Bld) [Vol rate/Area] 72 mL/min/{1.73_m2} >60 [facility] Comment on above: mL/min/1.73m2 CKD-EP I Creatinine Equation (2020) Hematocrit Auto (Bld) [Volum e fraction]Ordered By: Remy Rai on 05-30-2025 Hematocrit (Bld) [Volume fraction] 37.5 % 37-47 [facility] Hemoglobin measurementOrdere d By: Remy Rai on 05-30-2025 Hemoglobin (Bld) [Mass/Vol] 12.4 g/dL 12.0-15.0 [facility] Immature granulocytes/100 WB C Auto (Bld)Ordered By: Remy Rai on 05-30-2025 Immature granulocytes/100 WBC (Bld) 0.300 % 0.0-0.9 [facility] Comment on above: IG% - Immature Granu locytes (promyelocytes, myelocytes and metamyelocytes) > 1% indicates that a LEFT SHIFT is Present. MCV (mean corpuscular volume ) determinationOrdered By: Remy Rai on 05-30-2025 MCV (RBC) [Entitic vol] 88.2 fL 81-99 [facility] Magnesium measurement (mass/ volume)Ordered By: Remy Rai on 05-30-2025 Magnesium (Unsp spec) [Mass/Vol] 2.0 mg/dL 1.5-2.2 [facility] Mean corpuscular hemoglobin (MCH) determinationOrdered By: Remy Rai on 05-30-2025 MCH (RBC) [Entitic mass] 29.2 pg 27.0-32.0 [facility] Mean corpuscular hemoglobin concentration (MCHC) determinationOrdered By: Remy Rai on 05-30-2025 MCHC (RBC) [Mass/Vol] 33.1 g/dL 32-36 [facility] Mean platelet volume determi nationOrdered By: Remy Rai on 05-30-2025 Platelet mean volume (Bld) [Entitic vol] 11.4 fL 6.2-12.0 [facility] Monocyte percentageOrdered B y: Remy Rai on 05-30-2025 Monocytes/100 WBC (Bld) 8.3 % 0-10 [facility] Neutrophil percentageOrdered By: Remy Rai on 05-30-2025 Neutrophils/100 WBC (Bld) 63.2 % 47-70 [facility] Nucleated red blood cell per centageOrdered By: Remy Rai on 05-30-2025 Nucleated RBC/100 WBC (Bld) [Ratio] 0 % 0-5 [facility] Platelet countOrdered By: Polina Rai on 05-30-2025 Platelets (Bld) [#/Vol] 223 10*3/uL 150-450 [facility] Potassium measurement (mass/ volume)Ordered By: Remy Rai on 05-30-2025 Potassium (Unsp spec) [Mass/Vol] 3.9 mmol/L 3.3-5.1 [facility] RBC Auto (Bld) [#/Vol]Ordere d By: Remy Rai on 05-30-2025 RBC (Bld) [#/Vol] 4.25 10*6/uL 4.2-5.4 [facility] Serum creatinine measurement (mass/volume)Ordered By: Remy Rai on 05-30-2025 Creatinine [Mass/Vol] 0.86 mg/dL 0.70-1.20 [facility] Serum glucose measurement (m ass/volume)Ordered By: Remy Rai on 05-30-2025 Glucose [Mass/Vol] 105 mg/dL High 70-99 [facility] Serum or plasma calcium erasmo urement (mass/volume)Ordered By: Remy Rai on 05-30-2025 Calcium [Mass/Vol] 9.4 mg/dL 7.6-11.0 [facility] Serum or plasma urea nitroge n measurement (mass/volume)Ordered By: Remy Rai on 05-30-2025 Urea nitrogen [Mass/Vol] 16 mg/dL 4-19 [facility] Sodium levelOrdered By: Dev Rai on 05-30-2025 Sodium [Moles/Vol] 138 mmol/L 133-145 [facility] TSH DL <= 0.005 mIU/L QnOrde red By: Remy Rai on 05-30-2025 TSH Qn 3.020 uIU/mL 0.300-4.200 [facility] White blood cell (WBC) count Ordered By: Remy Rai on 05-30-2025 WBC (Bld) [#/Vol] 9.1 10*3/uL 4.4-11.0 [facility] CBC W/Diff, Automatedon 12-01 Absolute Lymph 1.60 X10 3/uL Normal 0.83-4.51 [facility] Comment on above: Order Comment: Order Date: 12/13/24 Order Info: 0184-1 - CBCD Order Info: [id number] - SED Performed By: #### L 100.0100, L500.4050, L502.0250, L506.1000, L500.4100, L501.9520, L501.9985, L509.1000, L101.9900 #### [facility] [address] [place], [place], [id number] Absolute Neut 3.8 X10 3/uL Normal 2.0-7.7 [facility] Comment on above: Order Comment: Order Date: 12/13/24 Order Info: 0184-1 - CBCD Order Info: [id number] - SED Performed By: #### L 100.0100, L500.4050, L502.0250, L506.1000, L500.4100, L501.9520, L501.9985, L509.1000, L101.9900 #### [facility] [address] [place], [address] Basophils/100 WBC (Bld) 0.7 % Normal 0-1 [facility] Comment on above: Order Comment: Order Date: 12/13/24 Order Info: 0184-1 - CBCD Order Info: [id number] - SED Performed By: #### L 100.0100, L500.4050, L502.0250, L506.1000, L500.4100, L501.9520, L501.9985, L509.1000, L101.9900 #### [facility] [address] [place], [place], [phone] ([phone]) Eosinophils/100 WBC (Bld) 3.0 % Normal 0-5 [facility] Comment on above: Order Comment: Order Date: 12/13/24 Order Info: 0184- - CBCD Order Info: [id number] - SED Performed By: #### L 100.0100, L500.4050, L502.0250, L506.1000, L500.4100, L501.9520, L501.9985, L509.1000, L101.9900 #### [facility] [address] [place], [place], [phone] ([phone]) Erythrocyte distribution width (RBC) [Ratio] 14.6 % Normal 11.6-14.6 [facility] Comment on above: Order Comment: Order Date: 12/13/24 Order Info: 0184-1 - CBCD Order Info: [id number] - SED Performed By: #### L 100.0100, L500.4050, L502.0250, L506.1000, L500.4100, L501.9520, L501.9985, L509.1000, L101.9900 #### [facility] [address] [place], [address] Hematocrit (Bld) [Volume fraction] 36.5 % Low 37-47 [facility] Comment on above: Order Comment: Order Date: 12/13/24 Order Info: 018- - CBCD Order Info: 16599-2 - SED Performed By: #### L 100.0100, L500.4050, L502.0250, L506.1000, L500.4100, L501.9520, L501.9985, L509.1000, L101.9900 #### [facility] [address] [place], [address] ( Hemoglobin (Bld) [Mass/Vol] 11.6 g/dL Low 12.0-15.0 [facility] Comment on above: Order Comment: Order Date: 12/13/24 Order Info: 018- - CBCD Order Info: [id number] - SED Performed By: #### L 100.0100, L500.4050, L502.0250, L506.1000, L500.4100, L501.9520, L501.9985, L509.1000, L101.9900 #### [facility] [address] [place], [address] (269) IG% 0.300 Normal 0.0-0.9 [facility] Comment on above: Order Comment: Order Date: 12/13/24 Order Info: 018- - CBCD Order Info: 18915-9 - SED Result Comment: IG% - Immature Granulocytes (promyelocytes, myelocytes and metamyelocytes) > 1% indicates that a LEFT SHIFT is Present. Performed By: #### L 100.0100, L500.4050, L502.0250, L506.1000, L500.4100, L501.9520, L501.9985, L509.1000, L101.9900 #### [facility] [address] [place], [address] Lymphocytes/100 WBC (Bld) 26.8 % Normal 19-41 [facility] Comment on above: Order Comment: Order Date: 12/13/24 Order Info: 183-11 - CBCD Order Info: 78432-6 - SED Performed By: #### L 100.0100, L500.4050, L502.0250, L506.1000, L500.4100, L501.9520, L501.9985, L509.1000, L101.9900 #### [facility] [address] [place], [address] MCH (RBC) [Entitic mass] 29.0 pg Normal 27.0-32.0 [facility] Comment on above: Order Comment: Order Date: 12/13/24 Order Info: 183-11 - CBCD Order Info: [id number] - SED Performed By: #### L 100.0100, L500.4050, L502.0250, L506.1000, L500.4100, L501.9520, L501.9985, L509.1000, L101.9900 #### [facility] [address] [place], [address] MCHC (RBC) [Mass/Vol] 31.8 g/dL Low 32-36 [facility] Comment on above: Order Comment: Order Date: 12/13/24 Order Info: 183-11 - CBCD Order Info: 94697-5 - SED Performed By: #### L 100.0100, L500.4050, L502.0250, L506.1000, L500.4100, L501.9520, L501.9985, L509.1000, L101.9900 #### [facility] [address] [place], [address] MCV (RBC) [Entitic vol] 91.3 fL Normal 81-99 [facility] Comment on above: Order Comment: Order Date: 12/13/24 Order Info: [id number] - CBCD Order Info: 24690-1 - SED Performed By: #### L 100.0100, L500.4050, L502.0250, L506.1000, L500.4100, L501.9520, L501.9985, L509.1000, L101.9900 #### [facility] [address] [place], [address] Monocytes/100 WBC (Bld) 6.2 % Normal 0-10 [facility] Comment on above: Order Comment: Order Date: 12/13/24 Order Info: 0184-1 - CBCD Order Info: [id number] - SED Performed By: #### L 100.0100, L500.4050, L502.0250, L506.1000, L500.4100, L501.9520, L501.9985, L509.1000, L101.9900 #### [facility] [address] [place], [address] Neutrophils/100 WBC (Bld) 63.0 % Normal 47-70 [facility] Comment on above: Order Comment: Order Date: 12/13/24 Order Info: 0184- - CBCD Order Info: 31485-7 - SED Performed By: #### L 100.0100, L500.4050, L502.0250, L506.1000, L500.4100, L501.9520, L501.9985, L509.1000, L101.9900 #### [facility] [address] [place], [address] Nucleated RBC (Bld) [#/Vol] 0 10*3/uL Normal 0-5 [facility] Comment on above: Order Comment: Order Date: 12/13/24 Order Info: 0184-1 - CBCD Order Info: 49216-7 - SED Performed By: #### L 100.0100, L500.4050, L502.0250, L506.1000, L500.4100, L501.9520, L501.9985, L509.1000, L101.9900 #### [facility] [address] [place], [address] Platelet mean volume (Bld) [Entitic vol] 11.8 fL Normal 6.2-12.0 [facility] Comment on above: Order Comment: Order Date: 12/13/24 Order Info: 0184-1 - CBCD Order Info: 61864-7 - SED Performed By: #### L 100.0100, L500.4050, L502.0250, L506.1000, L500.4100, L501.9520, L501.9985, L509.1000, L101.9900 #### [facility] [address] [place], [address] Platelets (Bld) [#/Vol] 201 10*3/uL Normal 150-450 [facility] Comment on above: Order Comment: Order Date: 12/13/24 Order Info: 018- - CBCD Order Info: [id number] - SED Performed By: #### L 100.0100, L500.4050, L502.0250, L506.1000, L500.4100, L501.9520, L501.9985, L509.1000, L101.9900 #### [facility] [address] [place], [address] RBC (Bld) [#/Vol] 4.00 10*6/uL Low 4.2-5.4 [facility] Comment on above: Order Comment: Order Date: 12/13/24 Order Info: 0184- - CBCD Order Info: [id number] - SED Performed By: #### L 100.0100, L500.4050, L502.0250, L506.1000, L500.4100, L501.9520, L501.9985, L509.1000, L101.9900 #### [facility] [address] [place], [address] RDW SD 47.9 fl High 35.1-43.9 [facility] Comment on above: Order Comment: Order Date: 12/13/24 Order Info: 0184- - CBCD Order Info: 17292-7 - SED Performed By: #### L 100.0100, L500.4050, L502.0250, L506.1000, L500.4100, L501.9520, L501.9985, L509.1000, L101.9900 #### [facility] [address] [place], [address] WBC (Bld) [#/Vol] 6.0 10*3/uL Normal 4.4-11.0 [facility] Comment on above: Order Comment: Order Date: 12/13/24 Order Info: 0184-1 - CBCD Order Info: 36793-7 - SED Performed By: #### L 100.0100, L500.4050, L502.0250, L506.1000, L500.4100, L501.9520, L501.9985, L509.1000, L101.9900 #### [facility] [address] [place], [address] Comprehensive Metabolic Prof ilon 12-19-2024 Albumin [Mass/Vol] 3.1 g/dL Low 3.2-5.0 [facility] Comment on above: Order Comment: Order Date: 12/13/24 Order Info: 0786-1 - CMP Order Info: [id number] - LIPID Order Info: 3016-3 - TSH Performed By: #### L 100.0100, L500.4050, L502.0250, L506.1000, L500.4100, L501.9520, L501.9985, L509.1000, L101.9900 #### [facility] [address] [place], [address] Albumin/Globulin [Mass ratio] 0.7 {ratio} Low 0.9-2.4 [facility] Comment on above: Order Comment: Order Date: 12/13/24 Order Info: 0786-1 - CMP Order Info: [id number] - LIPID Order Info: 3016-3 - TSH Performed By: #### L 100.0100, L500.4050, L502.0250, L506.1000, L500.4100, L501.9520, L501.9985, L509.1000, L101.9900 #### [facility] [address] [place], [address] ALK P 119 U/L High 45-117 [facility] Comment on above: Order Comment: Order Date: 12/13/24 Order Info: 0786-1 - CMP Order Info: [id number] - LIPID Order Info: 3016-3 - TSH Performed By: #### L 100.0100, L500.4050, L502.0250, L506.1000, L500.4100, L501.9520, L501.9985, L509.1000, L101.9900 #### [facility] [address] [place], [address] ALT [Catalytic activity/Vol] 24 U/L Normal 13-56 [facility] Comment on above: Order Comment: Order Date: 12/13/24 Order Info: 0786-1 - CMP Order Info: [id number] - LIPID Order Info: 3016-3 - TSH Performed By: #### L 100.0100, L500.4050, L502.0250, L506.1000, L500.4100, L501.9520, L501.9985, L509.1000, L101.9900 #### [facility] [address] [place], [place], [address] [phone] AST [Catalytic activity/Vol] 24 U/L Normal 15-37 [facility] Comment on above: Order Comment: Order Date: 12/13/24 Order Info: 0786-1 - CMP Order Info: [id number] - LIPID Order Info: 3016-3 - TSH Performed By: #### L 100.0100, L500.4050, L502.0250, L506.1000, L500.4100, L501.9520, L501.9985, L509.1000, L101.9900 #### [facility] [address] [place], [address] Bilirubin [Mass/Vol] 0.70 mg/dL Normal 0.20-1.00 [facility] Comment on above: Order Comment: Order Date: 12/13/24 Order Info: 0786-1 - CMP Order Info: [id number] - LIPID Order Info: 3015-3 - TSH Result Comment: For patients on eltrombopag therapy, use of Dimension [place] TBIL is not recommended. Performed By: #### L 100.0100, L500.4050, L502.0250, L506.1000, L500.4100, L501.9520, L501.9985, L509.1000, L101.9900 #### [facility] [address] [place], [address] BUN/CRE 18.9 RATIO Normal 10-20 [facility] Comment on above: Order Comment: Order Date: 12/13/24 Order Info: 0786- - CMP Order Info: [id number] - LIPID Order Info: 3 - TSH Performed By: #### L 100.0100, L500.4050, L502.0250, L506.1000, L500.4100, L501.9520, L501.9985, L509.1000, L101.9900 #### [facility] [address] [place], [address] CA,Total 9.1 mg/dL Normal 8.5-10.1 [facility] Comment on above: Order Comment: Order Date: 12/13/24 Order Info: 0786-1 - CMP Order Info: [id number] - LIPID Order Info: 3013 - TSH Performed By: #### L 100.0100, L500.4050, L502.0250, L506.1000, L500.4100, L501.9520, L501.9985, L509.1000, L101.9900 #### [facility] [address] [place], [address] Chloride [Moles/Vol] 107 mmol/L Normal 98-107 [facility] Comment on above: Order Comment: Order Date: 12/13/24 Order Info: 0786-1 - CMP Order Info: 60078-1 - LIPID Order Info: 3016-3 - TSH Performed By: #### L 100.0100, L500.4050, L502.0250, L506.1000, L500.4100, L501.9520, L501.9985, L509.1000, L101.9900 #### [facility] [address] [place], [address] CO2 [Moles/Vol] 28.0 mmol/L Normal 21.0-32.0 [facility] Comment on above: Order Comment: Order Date: 12/13/24 Order Info: 0786- - CMP Order Info: [id number] - LIPID Order Info: 3016-3 - TSH Performed By: #### L 100.0100, L500.4050, L502.0250, L506.1000, L500.4100, L501.9520, L501.9985, L509.1000, L101.9900 #### [facility] [address] [place], [place], [id number] Creatinine [Mass/Vol] 0.85 mg/dL Normal 0.55-1.02 [facility] Comment on above: Order Comment: Order Date: 12/13/24 Order Info: 0786-1 - CMP Order Info: [id number] - LIPID Order Info: [id number] - TSH Result Comment: The validity of the calculated GFR GFRAA in patients over 70 years has not been determined. Clinical correlation is essential. Performed By: #### L 100.0100, L500.4050, L502.0250, L506.1000, L500.4100, L501.9520, L501.9985, L509.1000, L101.9900 #### [facility] [address] [place], [address] EST GFR - AA 85 mL/min Normal >60 [facility] Comment on above: Order Comment: Order Date: 12/13/24 Order Info: 0786-1 - CMP Order Info: [id number] - LIPID Order Info: 3013 - TSH Result Comment: Afri can [place]vian GFR Calc Performed By: #### L 100.0100, L500.4050, L502.0250, L506.1000, L500.4100, L501.9520, L501.9985, L509.1000, L101.9900 #### [facility] [address] [place], [address] GAP 2 Low 5-15 [facility] Comment on above: Order Comment: Order Date: 12/13/24 Order Info: 07 - CMP Order Info: [id number] - LIPID Order Info: [id number] - TSH Performed By: #### L 100.0100, L500.4050, L502.0250, L506.1000, L500.4100, L501.9520, L501.9985, L509.1000, L101.9900 #### [facility] [address] [place], [place], [phone] GFR/1.73 sq M.predicted among non-blacks MDRD (S/P/Bld) [Vol rate/Area] 71 mL/min/{1.73_m2} Normal >60 [facility] Comment on above: Order Comment: Order Date: 12/13/24 Order Info: 0786- - CMP Order Info: [id number] - LIPID Order Info: 3013 - TSH Result Comment: Non- GFR Calc Performed By: #### L 100.0100, L500.4050, L502.0250, L506.1000, L500.4100, L501.9520, L501.9985, L509.1000, L101.9900 #### [facility] [address] [place], [place], [id number] Globulin (S) [Mass/Vol] 4.6 g/dL High 2.2-4.2 [facility] Comment on above: Order Comment: Order Date: 12/13/24 Order Info: 0786-1 - CMP Order Info: [id number] - LIPID Order Info: 3015-3 - TSH Performed By: #### L 100.0100, L500.4050, L502.0250, L506.1000, L500.4100, L501.9520, L501.9985, L509.1000, L101.9900 #### [facility] [address] [place], [address] Glucose [Mass/Vol] 96 mg/dL Normal 74-106 [facility] Comment on above: Order Comment: Order Date: 12/13/24 Order Info: 785- - CMP Order Info: - LIPID Order Info: 3 - TSH Performed By: #### L 100.0100, L500.4050, L502.0250, L506.1000, L500.4100, L501.9520, L501.9985, L509.1000, L101.9900 #### [facility] [address] [place], [address] Potassium [Moles/Vol] 4.3 mmol/L Normal 3.5-5.1 [facility] Comment on above: Order Comment: Order Date: 12/13/24 Order Info: 0786- - CMP Order Info: [id number] - LIPID Order Info: 3 - TSH Performed By: #### L 100.0100, L500.4050, L502.0250, L506.1000, L500.4100, L501.9520, L501.9985, L509.1000, L101.9900 #### [facility] [address] [place], [address] Sodium [Moles/Vol] 137 mmol/L Normal 136-145 [facility] Comment on above: Order Comment: Order Date: 12/13/24 Order Info: 0786-1 - CMP Order Info: [id number] - LIPID Order Info: 3 - TSH Performed By: #### L 100.0100, L500.4050, L502.0250, L506.1000, L500.4100, L501.9520, L501.9985, L509.1000, L101.9900 #### [facility] [address] [place], [place], [id number] T PROT 7.7 g/dL Normal 6.4-8.2 [facility] Comment on above: Order Comment: Order Date: 12/13/24 Order Info: 0786-1 - CMP Order Info: [id number] - LIPID Order Info: 3016-3 - TSH Performed By: #### L 100.0100, L500.4050, L502.0250, L506.1000, L500.4100, L501.9520, L501.9985, L509.1000, L101.9900 #### [facility] [address] [facility] [place], [address] Urea nitrogen [Mass/Vol] 16 mg/dL Normal 7-18 [facility] Comment on above: Order Comment: Order Date: 12/13/24 Order Info: 0786-1 - CMP Order Info: [id number] - LIPID Order Info: 3016-3 - TSH Performed By: #### L 100.0100, L500.4050, L502.0250, L506.1000, L500.4100, L501.9520, L501.9985, L509.1000, L101.9900 #### [facility] [address] [place], [place], [id number] Erythrocyte Sed Rateon 12-19 SED RATE 37 mm/hr High 0-30 [facility] Comment on above: Order Comment: Order Date: 12/13/24 Order Info: 0184-1 - CBCD Order Info: [id number] - SED Performed By: #### L 100.0100, L500.4050, L502.0250, L506.1000, L500.4100, L501.9520, L501.9985, L509.1000, L101.9900 #### [facility] [address] [place], [place], [address] Hemoglobin A1con 12-19-2024 HbA1c (Bld) [Mass fraction] 5.9 % High 3.8-5.6 [facility] Comment on above: Order Comment: Order Date: 12/13/24 Order Info: [id number] - A1C Result Comment: Norm al < 5.7 % Prediabetic 5.7 - 6.4 % Diabetic >or= 6.5 % Please note range changes. Performed By: #### L 100.0100, L500.4050, L502.0250, L506.1000, L500.4100, L501.9520, L501.9985, L509.1000, L101.9900 #### [facility] [address] [place], [place], [id number] Lipid Profileon 12-19-2024 Cholesterol [Mass/Vol] 150 mg/dL Normal 200 [facility] Comment on above: Order Comment: Order Date: 12/13/24 Order Info: 0786-1 - CMP Order Info: [id number] - LIPID Order Info: [id number] - TSH Result Comment: <200 mg/dL Desirable 200-240 mg/dL Borderline >240 mg/dL High Risk Performed By: #### L 100.0100, L500.4050, L502.0250, L506.1000, L500.4100, L501.9520, L501.9985, L509.1000, L101.9900 #### [facility] [address] [place], [place], [id number] Cholesterol in HDL [Mass/Vol] 73 mg/dL Normal [facility] Comment on above: Order Comment: Order Date: 12/13/24 Order Info: 0786-1 - CMP Order Info: [id number] - LIPID Order Info: [id number] - TSH Result Comment: The drugs N-Acetylcysteine and Metamizole may falsely depress this assay. Reference Range HDL <40 mg/dL Low HDL Cholesterol HDL >or= 60 mg/dL High HDL Cholesterol Performed By: #### L 100.0100, L500.4050, L502.0250, L506.1000, L500.4100, L501.9520, L501.9985, L509.1000, L101.9900 #### [facility] [address] [place], [address] Cholesterol in LDL [Mass/Vol] 62 mg/dL Normal 0-130 [facility] Comment on above: Order Comment: Order Date: 12/13/24 Order Info: 0786-1 - CMP Order Info: [id number] - LIPID Order Info: 3015-3 - TSH Performed By: #### L 100.0100, L500.4050, L502.0250, L506.1000, L500.4100, L501.9520, L501.9985, L509.1000, L101.9900 #### [facility] [address] [place], [place], [phone] ([phone] Cholesterol in VLDL [Mass/Vol] 15 mg/dL Normal 5-40 [facility] Comment on above: Order Comment: Order Date: 12/13/24 Order Info: 0786-1 - CMP Order Info: [id number] - LIPID Order Info: [id number] - TSH Performed By: #### L 100.0100, L500.4050, L502.0250, L506.1000, L500.4100, L501.9520, L501.9985, L509.1000, L101.9900 #### [facility] [address] [place], [address] Triglyceride [Mass/Vol] 75 mg/dL Normal [facility] Comment on above: Order Comment: Order Date: 12/13/24 Order Info: [id number] - CMP Order Info: [id number] - LIPID Order Info: [id number] - TSH Result Comment: The drugs N-Acetylcysteine and Metamizole may falsely depress this assay. Serum Triglycerides Reference Interval Normal <150 mg/dL Borderline high 150 - 199 mg/dL High 200 - 499 mg/dL Very High > or = 500 mg/dL Performed By: #### L 100.0100, L500.4050, L502.0250, L506.1000, L500.4100, L501.9520, L501.9985, L509.1000, L101.9900 #### [facility] [address] [place], [address] Microalb:Creat Ratio,Random URon 12-19-2024 Creatinine [Mass/Vol] 71.60 mg/dL Normal NO RAN GE EST. [facility] Comment on above: Order Comment: Order Date: 12/13/24 Order Info: [id number] - MIACRE Performed By: #### L 100.0100, L500.4050, L502.0250, L506.1000, L500.4100, L501.9520, L501.9985, L509.1000, L101.9900 #### [facility] [address] [place], [place], [id number] ([phone]) MALB:CRE 27.8 mg/g CRE Normal <30 mg/g CRE [facility] Comment on above: Order Comment: Order Date: 12/13/24 Order Info: [id number] - MIACRE Performed By: #### L 100.0100, L500.4050, L502.0250, L506.1000, L500.4100, L501.9520, L501.9985, L509.1000, L101.9900 #### [facility] [address] [place], [address] MICROALBUMIN,UR 19.9 mg/L Normal NO RANGE EST. [facility] Comment on above: Order Comment: Order Date: 12/13/24 Order Info: [id number] - MIACRE Performed By: #### L 100.0100, L500.4050, L502.0250, L506.1000, L500.4100, L501.9520, L501.9985, L509.1000, L101.9900 #### [facility] [address] [place], [place], [id number] [phone] PTHINon 12-19-2024 PTH 54.7 pg/mL Normal 18.4-80.1 [facility] Comment on above: Order Comment: Order Date: 12/13/24 Order Info: [id number] - PTHIN Performed By: #### L 100.0100, L500.4050, L502.0250, L506.1000, L500.4100, L501.9520, L501.9985, L509.1000, L101.9900 #### [facility] [address] [place], [address] Thyroid Stim Hormone (TSH)on 12-19-2024 TSH 2.030 uIU/mL Normal 0.358-3.740 [facility] Comment on above: Order Comment: Order Date: 12/13/24 Order Info: [id number] - CMP Order Info: [id number] - LIPID Order Info: [id number] - TSH Performed By: #### L 100.0100, L500.4050, L502.0250, L506.1000, L500.4100, L501.9520, L501.9985, L509.1000, L101.9900 #### [facility] [address] [place], [place], [address] Vitamin D,25 Hydroxyon 12-19 Vitamin D 25-OH 42.7 ng/mL Normal [facility] Comment on above: Order Comment: Order Date: 12/13/24 Order Info: [id number] - VITD25 Result Comment: Bethany min D 25(OH) Status Range Deficiency <20 ng/mL (50nmol/L) Insufficiency 20 - 30 ng/mL (50 - 75 nmol/L) Sufficiency 30 - 100 ng/mL (75 - 250 nmol/L) Toxicity >100 ng/mL (>250 nmol/L) Performed By: #### L 100.0100, L500.4050, L502.0250, L506.1000, L500.4100, L501.9520, L501.9985, L509.1000, L101.9900 #### [facility] [address] [place], [address] Venous Duplex US, Unilateral on 05-27-2024 Venous Duplex US, Unilateral [facility] [address] [place] [address] Venous Duplex US, Unilateral 05/27/24 1104 MR#: [id number] Acct: [id number] Name: VICKIE GONZALEZ Rep #: [id number] : 1955 68 From: Cristhian Coleman MD [...] Physician: Kirill Newell Performed By: Rosa Martinez RVHayley 05/27/24 1227 Date Cristhian Coleman MD CC: Dr. Kirill Newell MD Date Dictated: 05/27/24 1104 Date Transcribed: 05/27/24 1227 Car Top Bolter: Signed Normal [facility] XR KNEE RIGHT 3 VIEWS (SPECI [...] ThuMar 25, 2024 5:26:19 PM EDT Normal [facility] Comment on above: Order Comment: Injur [...] ThuJan 26, 2024 4:57:48 PM EST Normal [facility] Comment on above: Order Comment: Injur [...] unremarkable. IMPRESSION: Severe right knee tricompartmental osteoarthritis. [employer] Workstation ID: [id number] Dictated by: ROBE COLIN on ThuJan 07, 2024 2:25:02 PM EST Transcribed by: LUCY NEWELL on ThuJan 07, 2024 2:25:02 PM EST Finalized by: ROBE COLIN on ThuJan 07, 2024 10:52:02 PM EST [facility] Comment on above: Order Comment: Nicolas ayers only schedule at [facility]. Do not schedule Ct scan appointment with patient. Ordering Doctor's office will call to schedule Ct scan appointment. Injury/Trauma or Illness?:Illness/Other How long have you had these symptoms (acute/chronic)?:Acute Reason for exam?:pre operative for upcoming Rt TKR Type of Exam?:Initial Additional signs and symptoms?:. Basophil percentageOrdered B y: Kirill Newell on 11-12-2023 Bilirubin [Mass/Vol] 0.70 mg/dL 0.20-1.00 [facility] Comment on above: For patients on eltr ombopag therapy, use of Dimension [place] TBIL is not recommended. Chloride [Moles/Vol] 107 mmol/L 98-107 [facility] Glucose [Mass/Vol] 97 mg/dL 74-106 [facility] Potassium [Moles/Vol] 4.3 mmol/L 3.5-5.1 [facility] Protein [Mass/Vol] 8.7 g/dL 6.4-8.2 [facility] Sodium [Moles/Vol] 140 mmol/L 136-145 [facility] WBC (Bld) [#/Vol] 7.7 10*3/uL 4.4-11.0 [facility] Blood erythrocytes count (nu mber/volume)Ordered By: Kirill Newell on 11-12-2023 RBC (Bld) [#/Vol] 4.16 10*6/uL 4.2-5.4 [facility] Blood hemoglobin measurement (mass/volume)Ordered By: Kirill Newell on 11-12-2023 Hemoglobin (Bld) [Mass/Vol] 11.5 g/dL 12.0-15.0 [facility] Blood platelet mean volumeOr dered By: Kirill Newell on 11-12-2023 Platelet mean volume (Bld) [Entitic vol] 11.2 fL 6.2-12.0 [facility] Determination of erythrocyte mean corpuscular volume (MCV)Ordered By: Kirill Newell on 11-12-2023 MCV (RBC) [Entitic vol] 89.2 fL 81-99 [facility] Erythrocyte sedimentation ra teOrdered By: Kirill Newell on 11-12-2023 ESR (Bld) [Velocity] 48 mm/h 0-30 [facility] Hematocrit Auto (Bld) [Volum e fraction]Ordered By: Kirill Newell on 11-12-2023 Hematocrit (Bld) [Volume fraction] 37.1 % 37-47 [facility] - Chemistry and C hemistry - challengeOrdered By: Kirill Newell on 11-12-2023 ALP [Catalytic activity/Vol] 110 U/L 45-117 [facility] ALT [Catalytic activity/Vol] 21 U/L 13-56 [facility] CO2 [Moles/Vol] 28.0 mmol/L 21.0-32.0 [facility] Globulin (S) [Mass/Vol] 5.5 g/dL 2.2-4.2 [facility] Urea nitrogen/Creatinine [Mass ratio] 19.0 mg/mg 10-20 [facility] - Hematology and Cell countsOrdered By: Kirill Newell on 11-12-2023 Erythrocyte distribution width (RBC) [Entitic vol] 51.8 fL 35.1-43.9 [facility] Erythrocyte distribution width (RBC) [Ratio] 15.9 % 11.6-14.6 [facility] MCH (RBC) [Entitic mass] 27.6 pg 27.0-32.0 [facility] MCHC Auto (RBC) [Mass/Vol]Or dered By: Kirill Newell on 11-12-2023 MCHC (RBC) [Mass/Vol] 31.0 g/dL 32-36 [facility] No Panel InformationOrdered By: Kirill Newell on 11-12-2023 Addendum Document Comment . [facility] Comment on above: The SPE pattern demo nstrates elevation of regionscontaining acute phase proteins suggesting anacute/subacute inflammatory response. Some conditions inwhich this pattern has been observed include: bacterial,viral or parasitic infection; mechanical, physical orchemical trauma; and cardiac failure. The gamma globulinregion is unremarkable and evidence of monoclonal proteinis not apparent.Performed at: [facility] [address] [id number] Director: Ha Gutierrez PhD, Phone: [phone] Kkmli-5-Mmaiuuczg 0.4 g/dL 0.0-0.4 [facility] Quikt-7-Vndtzcset 1.2 g/dL 0.4-1.0 [facility] Anti-Nuclear Antibody Screen Negative Negative [facility] Comment on above: Performed at: [facility] [address] [id number] Director: Ha Gutierrez PhD, Phone: [phone] Estimated GFR (MDRD) Amer 86 mL/min >60 [facility] Comment on above: GFR Calc Estimated GFR (MDRD) Non-Af Amer 71 mL/min >60 [facility] Comment on above: Non- GFR Calc Gamma Globulins 1.8 g/dL 0.4-1.8 [facility] Parathyroid Hormone (Intact) 69.9 pg/mL 18.4-80.1 [facility] Urine Microalbumin/Creatinine Ratio 70.0 mg/g CRE <30 [facility] Vitamin D 25-Hydroxy 37.3 ng/mL [facility] Comment on above: Vitamin D 25(OH) Sta tus Range Deficiency <20 ng/mL (50nmol/L) Insufficiency 20 - 30 ng/mL (50 - 75 nmol/L) Sufficiency 30 - 100 ng/mL (75 - 250 nmol/L) Toxicity >100 ng/mL (>250 nmol/L) Platelets bldOrdered By: Theresa Newell on 11-12-2023 Platelets (Bld) [#/Vol] 272 10*3/uL 150-450 [facility] Protein Fractions Elph [Inte rp]Ordered By: Kirill Newell on 11-12-2023 Protein Fractions [Interp] Comment . [facility] Comment on above: Protein electrophore sis scan will follow via computer,mail, or feed elevator worker delivery. Serum albumin to globulin ra allen by protein electrophoresisOrdered By: Kirill Newell on 11-12-2023 Albumin/Globulin Elph [Mass ratio] 0.7 0.7-1.7 [facility] Serum globulin measurement ( mass/volume)Ordered By: Kirill Newell on 11-12-2023 Globulin (S) [Mass/Vol] 4.6 g/dL 2.2-3.9 [facility] Serum or plasma C reactive p rotein measurement (mass/volume)Ordered By: Kirill Newell on 11-12-2023 CRP [Mass/Vol] 15.50 mg/L 0.0-3.0 [facility] Comment on above: C-Reactive Protein ( CRP) provides useful information for thediagnosis, therapy and monitoring of inflammatory processesand associated diseases. For the evaluation of Relative Riskfor Cardiovascular Disease, a High Sensitivity CRP (HSCRP)should be ordered. Serum or plasma albumin erasmo urement (mass/volume)Ordered By: Kirill Newell on 11-12-2023 Albumin [Mass/Vol] 3.2 g/dL 2.9-4.4 [facility] Serum or plasma albumin/glob ulin mass ratioOrdered By: Kirill Newell on 11-12-2023 Albumin/Globulin [Mass ratio] 0.6 {ratio} 0.9-2.4 [facility] Serum or plasma beta globuli n measurement by electrophoresis (mass/volume)Ordered By: Kirill Newell on 11-12-2023 Beta globulin Elph [Mass/Vol] 1.2 g/dL 0.7-1.3 [facility] Serum or plasma calcium erasmo urement (mass/volume)Ordered By: Kirill Newell on 11-12-2023 Calcium [Mass/Vol] 9.1 mg/dL 8.5-10.1 [facility] Serum or plasma creatinine m easurement (mass/volume)Ordered By: Kirill Newell on 11-12-2023 Creatinine [Mass/Vol] 0.84 mg/dL 0.55-1.02 [facility] Comment on above: The validity of the calculated GFR & GFRAA in patients over 70 years has not been determined. Clinical correlation is essential. Serum or plasma protein mono clonal measurement by electrophoresis (mass/volume)Ordered By: Kirill Newell on 11-12-2023 Protein.monoclonal Elph [Mass/Vol] Not Observed g/dL Not Observed [facility] Serum or plasma urea nitroge n measurement (mass/volume)Ordered By: Kirill Newell on 11-12-2023 Urea nitrogen [Mass/Vol] 16 mg/dL 7-18 [facility] Serum rheumatoid factor dete ctionOrdered By: Kirill Newell on 11-12-2023 Rheumatoid factor Ql (S) < 10.0 IU/mL <15 [facility] Thin prep Papanicolaou smear with manual screeningOrdered By: Kirill Newell on 11-12-2023 Thin prep Papanicolaou smear with manual screening 26 U/L 15-37 [facility] Thin prep Papanicolaou smear with manual screening 5 5-15 [facility] Thin prep Papanicolaou smear with manual screening 156.0 mg/L NO RANGE EST. [facility] Total protein bloodOrdered B y: Kirill Newell on 11-12-2023 Protein [Mass/Vol] 7.8 g/dL 6.0-8.5 [facility] Urine creatinine measurement (mass/volume)Ordered By: Kirill Newell on 11-12-2023 Creatinine (U) [Mass/Vol] 223.00 mg/dL NO RANGE EST. [facility] Whole blood hemoglobin A1c/t otal hemoglobin ratio (mass fraction)Ordered By: Kirill Newell on 11-12-2023 HbA1c (Bld) [Mass fraction] 5.7 % 3.8-5.6 [facility] Comment on above: Normal < 5.7 [...] right knee. The right knee shows severe npdp-at-tuwn narrowing with endplate sclerosis and endplate osteophytes and about 7 mm of lateral subluxation of the tibial plateau in relationship to the distal femur associated with varus angulation of the knee. There are osteophytes along the lateral joint compartment and yxvcwrch-oj-msrgku arthritic changes of the patellofemoral joint. There is likely a small suprapatellar joint effusion. No acute fracture is identified. Total left knee arthroplasty is in place. No radiographic signs of hardware complications. IMPRESSION: 1. Tricompartmental degenerative changes of the right knee, including severe srqi-ak-jges osteoarthritis of the medial joint compartment with varus angulation. 2. No acute osseous abnormalities identified. [employer] Workstation ID: [id number] Dictated by: YOSELYN PETE on ThuSep 15, 2023 10:04:15 AM EDT Transcribed by: GERALD DYER on ThuSep 15, 2023 10:28:27 AM EDT Finalized by: YOSELYN PETE on ThuSep 15, 2023 2:48:38 PM EDT Normal [facility] Comment on above: Order Comment: Injur y/Trauma or Illness?:Illness/Other How long have you had these symptoms (acute/chronic)?:Chronic Reason for exam?:pain History of cancer?:/ / Surgeries, chemotherapy, or radiation?:/ Type of Exam?:Initial Additional signs and symptoms?:na ECG 12 [place]on 01-21-2023 Atrial Rate [facility] [place] [facility] P-R Interval [facility] Q-T Interval [facility] Q-T Interval (corrected) [facility] QRS Duration [facility] QTC Calculation (Be[facility]) [facility] [place] [facility] T [place] [facility] Ventricular Rate [facility] ECHOCARDIOGRAM COMPLETEon ECHOCARDIOGRAM COMPLETE Patient Info Name: VICKIE GONZALEZ Age: 67 years : 1955 Gender: Female Ht: 167 cm Wt: 105 kg BSA: 2.26 m2 HR: 1 bpm BP: 157 / 89 mmHg Technical Quality: Fair Exam Date: 01/21/2023 9:06 AM Patient Status: Outpatient Flame Hardening Machine Setter: Shirin Rabago, MILLER, RDCS (PE, AE) Exam Type: ECHOCARDIOGRAM COMPLETE Study Info Indications - Valve disease/murmur Attending Physician: ANGELICA RANDALL Referring Physician: [id number], DYE; [id number] BMI: 37.73 kg/m2 Summary 1. Left ventricular [...] Value Normal - PV Regurgitation Doppler - MN Peak End Diastolic Velocity 128 cm/s Mitral Valve - Name Value Normal - MV Doppler - MV Peak Velocity 1. (more content not included)... [facility] ECG 12 LeadOrdered By: Virginie Guerra on 02-19-2022 Atrial Rate [facility] [place] [facility] P-R Interval [facility] Q-T Interval [facility] Q-T Interval (corrected) [facility] QRS Duration [facility] QTC Calculation (April) [facility] [place] [facility] T [place] [facility] Ventricular Rate [facility] Basic metabolic 2000 panelon 01-22-2022 Anion gap [Moles/Vol] 15 mmol/L 10 - 2 0 mmol/L [facility] Calcium [Mass/Vol] 8.8 mg/dL 8.4 - 10. 2 mg/dL [facility] Chloride [Moles/Vol] 104 mmol/L 98 - 10 8 mmol/L [facility] Creatinine [Mass/Vol] 0.75 mg/dL 0.60 - 1.20 [facility] [place] [facility] GFR/1.73 sq M.predicted CKD-EPI (S/P/Bld) [Vol rate/Area] 83 >=60 mL/min/1.73 m2 [facility] Glucose [Mass/Vol] 90 mg/dL 65 - 99 mg/dL [facility] HCO3 [Moles/Vol] 24 mmol/L 21 - 32 mmol/L [facility] Interpretation and review of laboratory results Normal [facility] Potassium [Moles/Vol] 4.3 mmol/L 3.5 - 5.1 mmol/L [facility] Sodium [Moles/Vol] 139 mmol/L 135 - 145 mmol/L [facility] Urea nitrogen [Mass/Vol] 10 mg/dL 8 - 25 mg/d L [facility] Urea nitrogen/Creatinine [Mass ratio] 13.3 mg/mg [facility] The eGFR should be u sed for monitoring renal function only and not for medication dosing. [facility] CBC panel Auto (Bld)on 01-22 Erythrocyte distribution width (RBC) [Entitic vol] 15.9 % High 11.6 - 14.8 % [facility] Hematocrit (Bld) [Volume fraction] 33.2 % Low 36.0 - 46.0 % [facility] Hemoglobin (Bld) [Mass/Vol] 10.4 g/dL Low 12.0 - 16.0 g/dL [facility] Interpretation and review of laboratory results Abnormal [facility] MCH (RBC) [Entitic mass] 27.2 pg 26. 0 - 34.0 pg [facility] MCHC (RBC) [Mass/Vol] 31.3 g/dL 31.0 - 37.0 g/dL [facility] MCV (RBC) [Entitic vol] 86.9 fL 80.0 - 100.0 fL [facility] Nucleated RBC (Bld) [#/Vol] 0.00 10*3/uL [facility] Nucleated RBC/100 WBC (Bld) [Ratio] 0.0 % [facility] Platelet mean volume (Bld) [Entitic vol] 11.9 fL 9.4 - 12.4 fL [facility] Platelets (Bld) [#/Vol] 176 10*3/uL [facility] RBC (Bld) [#/Vol] 3.82 10*6/uL Low [facility] ealt WBC (Bld) [#/Vol] 5.53 10*3/uL [facility] 12 [place] 01-22-2022 Atrial Rate 65 BPM [facility] P [place] 64 degrees [facility] P-R Interval 300 ms [facility] Q-T Interval 444 ms [facility] QRS Duration 94 ms [facility] QTC Calculation (Bezet) 461 ms [facility] [place] 10 degrees [facility] T [place] 90 degrees [facility] Ventricular Rate 65 BPM [facility] th Sinus rhythm with 1s t degree AV block Otherwise normal ECG Confirmed by REMY SEGURA MD ([id number]) on 01/22/2022 9:10:34 AM MUSE [facility] Atrial Rate 64 BPM [facility] P [place] 48 degrees [facility] P-R Interval 272 ms [facility] Q-T Interval 438 ms [facility] QRS Duration 96 ms [facility] QTC Calculation (Bezet) 451 ms [facility] [place] 34 degrees [facility] T [place] 89 degrees [facility] Ventricular Rate 64 BPM [facility] th Sinus rhythm with 1s t degree AV block Nonspecific T wave abnormality Abnormal ECG When compared with ECG of 21-JAN-2022 12:50, (unconfirmed) No significant change was found Confirmed by REMY SEGURA MD ([id number]) on 01/22/2022 9:08:00 AM [facility] APTTon 01-21-2022 aPTT Coag (Bld) [Time] 29 s [facility] [place] [facility] Basic metabolic 2000 panelon 01-21-2022 Anion gap [Moles/Vol] 16 mmol/L 10 - 2 0 mmol/L [facility] Calcium [Mass/Vol] 8.5 mg/dL 8.4 - 10. 2 mg/dL [facility] Chloride [Moles/Vol] 106 mmol/L 98 - 10 8 mmol/L [facility] Creatinine [Mass/Vol] 0.67 mg/dL 0.60 - 1.20 [facility] [place] [facility] GFR/1.73 sq M.predicted CKD-EPI (S/P/Bld) [Vol rate/Area] 91 >=60 mL/min/1.73 m2 [facility] Glucose [Mass/Vol] 110 mg/dL High 65 - 99 mg/dL [facility] HCO3 [Moles/Vol] 21 mmol/L 21 - 32 mmol/L [facility] Interpretation and review of laboratory results Abnormal [facility] Potassium [Moles/Vol] 3.9 mmol/L 3.5 - 5.1 mmol/L [facility] Sodium [Moles/Vol] 139 mmol/L 135 - 145 mmol/L [facility] Urea nitrogen [Mass/Vol] 14 mg/dL 8 - 25 mg/d L [facility] Urea nitrogen/Creatinine [Mass ratio] 20.9 mg/mg High [facility] The eGFR should be u sed for monitoring renal function only and not for medication dosing. [facility] Basic metabolic 2000 panelOr dered By: Marcial Thomas on 01-21-2022 Anion gap [Moles/Vol] 17 mmol/L 10 - 2 0 mmol/L [facility] Calcium [Mass/Vol] 8.9 mg/dL 8.4 - 10. 2 mg/dL [facility] Chloride [Moles/Vol] 106 mmol/L 98 - 10 8 mmol/L [facility] Creatinine [Mass/Vol] 0.77 mg/dL 0.60 - 1.20 [facility] [place] [facility] GFR/1.73 sq M.predicted CKD-EPI (S/P/Bld) [Vol rate/Area] 80 >=60 mL/min/1.73 m2 [facility] Glucose [Mass/Vol] 94 mg/dL 65 - 99 mg/dL [facility] HCO3 [Moles/Vol] 23 mmol/L 21 - 32 mmol/L [facility] Interpretation and review of laboratory results Normal [facility] Potassium [Moles/Vol] 4.2 mmol/L 3.5 - 5.1 mmol/L [facility] Comment on above: Slightly Hemolyzed Sodium [Moles/Vol] 142 mmol/L 135 - 145 mmol/L [facility] Urea nitrogen [Mass/Vol] 14 mg/dL 8 - 25 mg/d L [facility] Urea nitrogen/Creatinine [Mass ratio] 18.2 mg/mg [facility] The eGFR should be u sed for monitoring renal function only and not for medication dosing. [facility] CBC panel Auto (Bld)on 01-21 Erythrocyte distribution width (RBC) [Entitic vol] 15.7 % High 11.6 - 14.8 % [facility] Hematocrit (Bld) [Volume fraction] 32.7 % Low 36.0 - 46.0 % [facility] Hemoglobin (Bld) [Mass/Vol] 10.2 g/dL Low 12.0 - 16.0 g/dL [facility] Interpretation and review of laboratory results Abnormal [facility] MCH (RBC) [Entitic mass] 27.1 pg 26. 0 - 34.0 pg [facility] MCHC (RBC) [Mass/Vol] 31.2 g/dL 31.0 - 37.0 g/dL [facility] MCV (RBC) [Entitic vol] 86.7 fL 80.0 - 100.0 fL [facility] Nucleated RBC (Bld) [#/Vol] 0.00 10*3/uL [facility] Nucleated RBC/100 WBC (Bld) [Ratio] 0.0 % [facility] Platelet mean volume (Bld) [Entitic vol] 11.7 fL 9.4 - 12.4 fL [facility] Platelets (Bld) [#/Vol] 173 10*3/uL [facility] RBC (Bld) [#/Vol] 3.77 10*6/uL Low [facility] WBC (Bld) [#/Vol] 6.65 10*3/uL [facility] Calcium, Ionizedon 2 Calcium.ionized [Mass/Vol] 4.6 mg/dL 4.5 - 5.3 mg/dL [facility] Calcium.ionized [Mass/Vol]on 01-21-2022 Interpretation and review of laboratory results Normal [facility] Echocardiogram limited with contrastOrdered By: Nicol Pittman on 01-21-2022 AV mean gradient 5 mmHg [facility] Work Phone: [facility] Work Phone: Echocardiogram limited with contraston 01-21-2022 Patient Info Name: VICKIE GONZALEZ Age: 66 years : 1955 Gender: Female Ht: 168 cm Wt: 102 kg BSA: 2.22 m2 BP: 144 / 57 mmHg Technical Quality: Fair Exam Date: 01/21/2022 12:12 PM Patient Status: Outpatient Flame Hardening Machine Setter: Jolanta Klein RDCS, RVT Exam Type: ECHOCARDIOGRAM LIMITED WITH CONTRAST Study Info Indications - INTRAOP TAVR Attending Physician: LINDSEY PLUMMER Referring Physician: [id number] Barney; [id number] BMI: 36.32 kg/m2 Summary 1. Limited two-dimensional, [...] Nicol Pittman DO on 01/21/2022 04:13 PM [employer] Nicol Pittman DO - 01/21/2022 Patient Info Name: VICKIE GONZALEZ Age: 66 years : 1955 Gender: Female Ht: 168 cm Wt: 102 kg BSA: 2.22 m2 BP: 144 / 57 mmHg Technical Quality: Fair Exam Date: 01/21/2022 12:12 PM Patient Status: Outpatient Flame Hardening Machine Setter: Jolanta Klein RDCS, RVT Exam Type: ECHOCARDIOGRAM LIMITED WITH CONTRAST Study Info Indications - INTRAOP TAVR Attending Physician: LINDSEY PLUMMER Referring Physician: [id number], BATISTA; [id number] BMI: 36.32 kg/m2 Summary 1. Limited two-dimensional, [...] Nicol Pittman DO on 01/21/2022 04:13 PM [facility] Radiology Study observation (narrative) [facility] INR Coag (PPP) [Relative shandra e]on 01-21-2022 Interpretation and review of laboratory results Abnormal [facility] PT Coag (PPP) [Time] 15.5 s [facility] During the induction phase of oral anticoagulation, the INR may not reflect the anticoagulation status of the patient. Therapeutic ranges for INR's are: Most clinical situations: INR 2.0-3.0 Mechanical Prosthetic Valve: INR 2.5-3.5 Critical: INR >5.0 [facility] Laboratory - Blood bankon ABO and Rh group Nom (Bld) 5100 [facility] ABO and Rh group Nom (Bld) Blood group O Rh(D) positive [facility] Magnesiumon 01-21-2022 Magnesium [Mass/Vol] 1.8 mg/dL 1.6 - 2 .4 mg/dL [facility] Magnesium [Mass/Vol]on 01-21 Interpretation and review of laboratory results Normal [facility] No Panel Informationon 01-21 [facility] Cross Match Compatible [facility] Product Code [id number] [facility] Product ID Red Blood Cells [facility] Status Info Ready [facility] POC Venous Blood Gas Panel-P ulmon 01-21-2022 Base excess Calc (BldV) [Moles/Vol] -1.1000 mmol/L [facility] Breath rate setting Ventilator synchronized intermittent mandatory 0 [facility] Calcium.ionized [Mass/Vol] 4.8 mg/dL 4.5 - 5.3 mg/dL [facility] Carboxyhemoglobin (BldA) [Mass fraction] 1.5 <=1.5 % of total Hb [facility] Comment on above: Reference Ranges: [facility] Non-smokers: <1.5% Smokers: 1.5-5.0% Heavy Smokers: 5.0-9.0% Chloride [Moles/Vol] 109 mmol/L High 98 - 10 8 mmol/L [facility] CO2 (BldV) [Partial pressure] 47.4 mm[Hg] [facility] Glucose [Mass/Vol] 109 mg/dL High 65 - 99 mg/dL [facility] HCO3 (Bld) [Moles/Vol] 25.0 mmol/L 24.0 - 28.0 mmol/L [facility] Hematocrit (BldA) [Volume fraction] 29.7 % Low 36.0 - 46.0 % [facility] Hemoglobin (Bld) [Mass/Vol] 9.7 g/dL Low 12.0 - 16.0 g/dL [facility] Inhaled oxygen concentration 0 % [facility] Interpretation and review of laboratory results Abnormal [facility] Lactate [Moles/Vol] 0.4 mmol/L Low 0.6 - 2. 0 mmol/L [facility] Methemoglobin (BldA) [Mass fraction] <1.0 0.0 - 2.0 % [facility] Oxygen (BldV) [Partial pressure] 39 mm[Hg] [facility] Oxygen saturation in Venous blood 69.2 % 40.0 - 70.0 % [facility] Oxyhemoglobin (BldA) [Mass fraction] 67.8 % No established reference range [facility] pH (BldV) 7.33 [pH] [facility] Potassium [Moles/Vol] 3.6 mmol/L 3.5 - 5.1 mmol/L [facility] Result Notification critical results giv en to treating OR anesthesiolo [facility] Sodium [Moles/Vol] 143 mmol/L 135 - 145 mmol/L [facility] Tidal volume setting Ventilator 0 [facility] PT/INRon 01-21-2022 INR Coag (PPP) [Relative time] 1.3 {INR} High [facility] Potassium Levelon 01-21-2022 Potassium [Moles/Vol] 4.5 mmol/L 3.5 - 5.1 mmol/L [facility] Potassium [Moles/Vol]on 01-01 Interpretation and review of laboratory results Normal [facility] Prepare RBC: 4 Unitson 01-21 Product Code [id number] [facility] Unit Number [id number] [facility] Unit Number [id number] [facility] Unit Number [id number] [facility] Unit Number [id number] [facility] XR Chest 1 Viewon 01-21-2022 Status post TAVR Cardiomegaly pulmonary vascular congestion and edema Workstation ID: [id number] [employer] RIS EXAMINATION: ONE XRAY VIEW OF THE CHEST [...] No focal airspace disease. No pneumothorax GE RIS Lindsey Shirley MD - 01/21/2022 EXAMINATION: ONE XRAY VIEW [...] vascular congestion and edema Workstation ID: [id number] [facility] Radiology Study observation (narrative) [facility] XR Chest 1 ViewOrdered By: Malachi Shirley on 01-21-2022 [facility] Work Phone: aPTT Coag (Bld) [Time]on Interpretation and review of laboratory results Normal [facility] Therapeutic range fo r APTT's is 68 - 104 seconds [facility] ECG 12 LeadOrdered By: Virginie Guerra on 01-09-2022 Atrial Rate [facility] [place] [facility] P-R Interval [facility] Q-T Interval [facility] Q-T Interval (corrected) [facility] QRS Duration [facility] QTC Calculation (Bezet) [facility] [place] [facility] T [place] [facility] Ventricular Rate [facility] COVID-19, MolecularOrdered B y: Nasreen Jenkins on 01-07-2022 SARS-CoV-2 (COVID-19) RNA MAXIMUS+probe Ql (Resp) Not detected Not Detected [facility] Comment on above: This test [...] at the following links: For Healthcare Providers: https://www.fda.gov/media/400870/download For Patients: https://www.fda.gov/media/762252/download SARS-CoV-2 (COVID-19) RNA NA A+probe Ql (Resp)Ordered By: Nasreen Jenkins on 01-07-2022 Interpretation and review of laboratory results Normal [facility] ECG 12-LEADOrdered By: Blaine Silveira on 06-10-2021 Atrial Rate [facility] [place] [facility] P-R Interval [facility] Q-T Interval [facility] Q-T Interval (corrected) [facility] QRS Duration [facility] QTC Calculation (Bezet) [facility] [place] [facility] T [place] [facility] Ventricular Rate [facility] Atrial Rate [facility] P [place] [facility] P-R Interval [facility] Q-T Interval [facility] Q-T Interval (corrected) [facility] QRS Duration [facility] QTC Calculation (Bezet) [facility] [place] [facility] T [place] [facility] Ventricular Rate [facility] ECHOCARDIOGRAM COMPLETEon Transthoracic Echocardiogram _ Patient: CARLOS Sykes [facility] Rec#: [id number] (Age): 1955(63y) Height: 167.64(cm)/65(i Study Date: 06/14/2019 Weight: 120.66(kg)/265( Room#: BSA: [id number] Type: Loc: Sex: F _ Reading: Silvio Mckeon MD F Referring: BLAINE SILVEIRA L. Flame Hardening Machine Setter: Angelica Lynne RD, T History: Aortic Valve disorder. Chest pain. Coronary [...] at 06/14/2019 16:22:40 by: Silvio Mckeon MD [facility] Interface, Rad In [facility] Xper Echopacs - 06/14/2019 4:29 PM EDT Transthoracic Echocardiogram _ Patient: CARLOS Sykes [facility] Rec#: [id number] (Age): 1955(63y) Height: 167.64(cm)/65(i Study Date: 06/14/2019 Weight: 120.66(kg)/265( Room#: BSA: [id number] Type: Loc: Sex: F _ Reading: Silvio Mckeon MD F Referring: BLAINE SILVEIRA L. Flame Hardening Machine Setter: Angelica Lynne RUST, T History: Aortic Valve disorder. Chest pain. Coronary [...] at 06/14/2019 16:22:40 by: Silvio Mckeon MD [facility] ECG 12-LEADon 06-06-2019 Atrial Rate [facility] [place] [facility] P-R Interval [facility] Q-T Interval [facility] Q-T Interval (corrected) [facility] QRS Duration [facility] QTC Calculation (Bezet) [facility] [place] [facility] T [place] [facility] Ventricular Rate [facility] Echocardiogram completeon Echocardiogram complete Transthoracic Echocardiogram _ Patient: CARLOS Sykes [facility] Rec#: [id number] (Age): 1955(62y) Height: 167.64(cm)/65(i Study Date: 01/05/2018 Weight: 109.77(kg)/241( Room#: BSA: [id number] Type: Outpatient Loc: Sex: F _ Reading: Iliana Gomez M.D. Referring: BLAINE SILVEIRA L. Flame Hardening Machine Setter: Angelica Lynne RDCS, RVT History: Aortic Valve disorder. Aotic insufficiencyCoronary [...] by: Iliana Gomez M.D. Invalid Interpretation Code [facility] Echocardiogram complete Interface, Joel aragon [facility] Echopacs - 01/05/2018 2:56 PM EST Transthoracic Echocardiogram _ Patient: CARLOS Sykes [facility] Rec#: [id number] (Age): 1955(62y) Height: 167.64(cm)/65(i Study Date: 01/05/2018 Weight: 109.77(kg)/241( Room#: BSA: [id number] Type: Outpatient Loc: Sex: F _ Reading: Iliana Gomez M.D. Referring: BLAINE SILVEIRA L. Flame Hardening Machine Setter: Angelica Lynne RDCS, RVT History: Aortic Valve disorder. Aotic insufficiencyCoronary [...] by: Iliana Gomez M.D. Invalid Interpretation Code [facility] Vital Signs Date Time Vital Sign Value Performing Clinician Facility 05-30-2025 02:47-0400 Body temperature 98.2 [degF] Dr. Kirill Newell MD Work Phone: [facility] 05-30-2025 02:47-0400 Diastolic blood pressure 100 mm[Hg] Dr. Kirill Newell MD Work Phone: [facility] 05-30-2025 02:47-0400 Heart rate 114 /min Dr. Kirill Newell MD Work Phone: [facility] 05-30-2025 02:47-0400 Respiratory rate 23 /min Dr. Kirill Newell MD Work Phone: [facility] 05-30-2025 02:47-0400 SaO2% (BldA) [Mass fraction] 96 % Dr. Kirill Newell MD Work Phone: [facility] 05-30-2025 02:47-0400 Systolic blood pressure 136 mm[Hg] Dr. Kirill Newell MD Work Phone: [facility] 05-29-2025 23:10-0400 Body height 170.[address] Kirill Newell MD Work Phone: [facility] 05-29-2025 23:10-0400 Body mass index (BMI) [Ratio] 41 kg/m2 Dr. Kirill Newell MD Work Phone: [facility] 05-29-2025 23:10-0400 Body weight 118.[address] Kirill Newell MD Work Phone: [facility] 02-12-2024 11:18-0400 Body temperature 98.1 [degF] Kendall Dajuan PT [facility] 02-12-2024 11:18-0400 Diastolic blood pressure 79 mm[Hg] Kendall Dajuan PT [facility] 02-12-2024 11:18-0400 Heart rate 78 /min Kendall Graff PT [facility] 02-12-2024 11:18-0400 Respiratory rate 16 /min Kendall Graff PT [facility] 02-12-2024 11:18-0400 SaO2% (BldA) [Mass fraction] 98 % Kendall Graff PT [facility] 02-12-2024 11:18-0400 Systolic blood pressure 124 mm[Hg] Kendall Dajuan PT [facility] 02-11-2024 08:58-0400 Body temperature 98.8 [degF] Lindsey Centeno RN [facility] 02-11-2024 08:58-0400 Diastolic blood pressure 78 mm[Hg] Lindsey Centeno RN [facility] 02-11-2024 08:58-0400 Heart rate 62 /min Lindsey Centeno RN [facility] 02-11-2024 08:58-0400 Respiratory rate 16 /min Lindsey Centeno RN [facility] 02-11-2024 08:58-0400 SaO2% (BldA) [Mass fraction] 99 % Lindsey Centeno RN [facility] 02-11-2024 08:58-0400 Systolic blood pressure 132 mm[Hg] Lindsey Centeno RN [facility] 02-10-2024 09:59-0400 Body temperature 97.81 [degF] Cristhian Thrush [facility] 02-10-2024 09:59-0400 Diastolic blood pressure 70 mm[Hg] Cristhian Thrush [facility] 02-10-2024 09:59-0400 Heart rate 66 /min Cristhian Thrush [facility] 02-10-2024 09:59-0400 Respiratory rate 15 /min Cristhian Thrush [facility] 02-10-2024 09:59-0400 SaO2% (BldA) [Mass fraction] 97 % Cristhian Byrnes [facility] 02-10-2024 09:59-0400 Systolic blood pressure 118 mm[Hg] Cristhian Byrnes [facility] 02-09-2024 09:21-0400 Body temperature 98.2 [degF] Lisa Odell [facility] 02-09-2024 09:21-0400 Diastolic blood pressure 80 mm[Hg] Lisa Odell [facility] 02-09-2024 09:21-0400 Heart rate 85 /min Lisa Odell [facility] 02-09-2024 09:21-0400 Respiratory rate 16 /min Lisa Odell [facility] 02-09-2024 09:21-0400 SaO2% (BldA) [Mass fraction] 98 % Lisa Odell [facility] 02-09-2024 09:21-0400 Systolic blood pressure 142 mm[Hg] Lisa Odell [facility] 02-08-2024 10:30-0400 Body temperature 97.9 [degF] Cristhian Byrnes [facility] 02-08-2024 10:30-0400 Diastolic blood pressure 70 mm[Hg] Cristhian Byrnes [facility] 02-08-2024 10:30-0400 Heart rate 67 /min Cristhian Byrnes [facility] 02-08-2024 10:30-0400 Respiratory rate 16 /min Cristhian Byrnes [facility] 02-08-2024 10:30-0400 SaO2% (BldA) [Mass fraction] 97 % Cristhian Byrnes [facility] 02-08-2024 10:30-0400 Systolic blood pressure 118 mm[Hg] Cristhian Byrnes [facility] 02-05-2024 10:44-0500 Body temperature 98.49 [degF] Lisa Odell [facility] 02-05-2024 10:44-0500 Diastolic blood pressure 82 mm[Hg] Lisa Jose R [facility] 02-05-2024 10:44-0500 Heart rate 77 /min Lisa Jose R [facility] 02-05-2024 10:44-0500 Respiratory rate 16 /min Lisa Odlel [facility] 02-05-2024 10:44-0500 SaO2% (BldA) [Mass fraction] 98 % Lisa Odell [facility] 02-05-2024 10:44-0500 Systolic blood pressure 150 mm[Hg] Lisa Odell [employer]AVA WEBSPH[employer] DEVELOPER [facility] 02-05-2024 10:09-0500 Body temperature 98.2 [degF] Cristhian Byrnes [facility] 02-05-2024 10:09-0500 Diastolic blood pressure 88 mm[Hg] Cristhian Byrnes [facility] 02-05-2024 10:09-0500 Heart rate 67 /min Cristhian Byrnes [facility] 02-05-2024 10:09-0500 Respiratory rate 15 /min Cristhian Byrnes [facility] 02-05-2024 10:09-0500 SaO2% (BldA) [Mass fraction] 97 % Cristhian Byrnes [facility] 02-05-2024 10:09-0500 Systolic blood pressure 150 mm[Hg] Cristhian Byrnes [facility] 02-03-2024 14:06-0500 Body temperature 97.59 [degF] Sienarachel Rondon [facility] 02-03-2024 14:06-0500 Diastolic blood pressure 84 mm[Hg] Siena Bucionaveed [facility] 02-03-2024 14:06-0500 Heart rate 76 /min Sienarachel Rondon [facility] 02-03-2024 14:06-0500 Respiratory rate 18 /min Sienarachel Rondon [facility] 02-03-2024 14:06-0500 SaO2% (BldA) [Mass fraction] 99 % Sienarachel Rondon [facility] 02-03-2024 14:06-0500 Systolic blood pressure 130 mm[Hg] Siena Nela [facility] 02-03-2024 12:32-0500 Body temperature 97.3 [degF] Cristhian Byrnes [facility] 02-03-2024 12:32-0500 Diastolic blood pressure 83 mm[Hg] Cristhian Byrnes [facility] 02-03-2024 12:32-0500 Heart rate 70 /min Cristhian Byrnes [facility] 02-03-2024 12:32-0500 Respiratory rate 15 /min Cristhian Byrnes [facility] 02-03-2024 12:32-0500 SaO2% (BldA) [Mass fraction] 99 % Cristhian Byrnes [facility] 02-03-2024 12:32-0500 Systolic blood pressure 145 mm[Hg] Cristhian Byrnes [facility] 02-01-2024 11:30-0500 Body temperature 98.1 [degF] Cristhian Byrnes [facility] 02-01-2024 11:30-0500 Diastolic blood pressure 88 mm[Hg] Cristhian Byrnes [facility] 02-01-2024 11:30-0500 Heart rate 70 /min Cristhian Byrnes [facility] 02-01-2024 11:30-0500 Respiratory rate 15 /min Cristhian Byrnes [facility] 02-01-2024 11:30-0500 SaO2% (BldA) [Mass fraction] 98 % Cristhian Byrnes [facility] 02-01-2024 11:30-0500 Systolic blood pressure 148 mm[Hg] Cristhian Byrnes [facility] 01-28-2024 12:52-0500 Body temperature 98.6 [degF] Kendall Graff PT [facility] 01-28-2024 12:52-0500 Diastolic blood pressure 73 mm[Hg] Kendall Graff PT [facility] 01-28-2024 12:52-0500 Heart rate 69 /min Kendall Graff PT [facility] 01-28-2024 12:52-0500 Respiratory rate 16 /min Kendall Graff PT [facility] 01-28-2024 12:52-0500 SaO2% (BldA) [Mass fraction] 99 % Kendall Graff PT [facility] 01-28-2024 12:52-0500 Systolic blood pressure 142 mm[Hg] Kendall Graff PT [facility] 01-27-2024 10:42-0500 Body temperature 98.6 [degF] Siena Bucionaveed [facility] 01-27-2024 10:42-0500 Diastolic blood pressure 82 mm[Hg] Siena Rondon RN [facility] 01-27-2024 10:42-0500 Heart rate 75 /min Siena Bucionaveed RN [facility] 01-27-2024 10:42-0500 Respiratory rate 16 /min Siena Bucionaveed RN [facility] 01-27-2024 10:42-0500 SaO2% (BldA) [Mass fraction] 96 % Siena Bucionaveed RN [facility] 01-27-2024 10:42-0500 Systolic blood pressure 144 mm[Hg] Siena Bucionaveed RN [facility] 01-15-2024 13:12-0500 Body height 167.6 cm Jass Pepe MD Work Phone: [facility] 01-15-2024 13:12-0500 Body mass index (BMI) [Ratio] 37.93 kg/m2 Jass Pepe MD Work Phone: [facility] 01-15-2024 13:12-0500 Body weight 106.59 kg Jass Pepe MD Work Phone: [facility] 01-15-2024 13:12-0500 Diastolic blood pressure 66 mm[Hg] Jass Pepe MD Work Phone: [facility] 01-15-2024 13:12-0500 Heart rate 82 /min Jass Pepe MD Work Phone: [facility] 01-15-2024 13:12-0500 Systolic blood pressure 143 mm[Hg] Jass Pepe MD Work Phone: [facility] 10-20-2023 13:34-0500 Diastolic blood pressure 91 mm[Hg] Blaine Silveira MD Work Phone: [facility] 10-20-2023 13:34-0500 Systolic blood pressure 156 mm[Hg] Blaine Silveira MD Work Phone: [facility] 10-20-2023 13:24-0500 Body height 170.2 cm Blaine Silveira MD Work Phone: [facility] 10-20-2023 13:24-0500 Body mass index (BMI) [Ratio] 37.28 kg/m2 Blaine Silveira MD Work Phone: [facility] 10-20-2023 13:24-0500 Body weight 107.96 kg Blaine Silveira MD Work Phone: [facility] 10-20-2023 13:24-0500 Heart rate 74 /min Blaine Silveira MD Work Phone: [facility] 10-20-2023 13:24-0500 SaO2% (BldA) [Mass fraction] 97 % Blaine Silveira MD Work Phone: [facility] 07-16-2023 09:42-0400 Body mass index (BMI) [Ratio] 36.3 kg/m2 [facility] 07-16-2023 09:42-0400 Body temperature 96.2 [degF] [facility] 07-16-2023 09:42-0400 Diastolic blood pressure 71 mm[Hg] [facility] 07-16-2023 09:42-0400 Heart rate 70 /min [facility] 07-16-2023 09:42-0400 Respiratory rate 16 /min [facility] 07-16-2023 09:42-0400 Systolic blood pressure 174 mm[Hg] [facility] 06-30-2023 00:20-0400 Body weight 102.05 kg [facility] 06-25-2023 10:45-0400 Body height 170.18 cm [facility] 06-25-2023 10:45-0400 Body mass index (BMI) [Ratio] 38.9 kg/m2 [facility] 06-25-2023 10:45-0400 Body temperature 98 [degF] [facility] 06-25-2023 10:45-0400 Body weight 113 kg [facility] 06-25-2023 10:45-0400 Diastolic blood pressure 85 mm[Hg] [facility] 06-25-2023 10:45-0400 Heart rate 74 /min [facility] 06-25-2023 10:45-0400 Respiratory rate 14 /min [facility] 06-25-2023 10:45-0400 SaO2% (BldA) [Mass fraction] 98 % [facility] 06-25-2023 10:45-0400 Systolic blood pressure 206 mm[Hg] [facility] 06-25-2023 09:48-0400 Body mass index (BMI) [Ratio] 36.3 kg/m2 [facility] 06-25-2023 09:48-0400 Body temperature 97 [degF] [facility] 06-25-2023 09:48-0400 Diastolic blood pressure 101 mm[Hg] [facility] 06-25-2023 09:48-0400 Heart rate 82 /min [facility] 06-25-2023 09:48-0400 Respiratory rate 20 /min [facility] 06-25-2023 09:48-0400 Systolic blood pressure 206 mm[Hg] [facility] 05-30-2023 01:32-0400 Body weight 102.05 kg [facility] 05-28-2023 09:48-0400 Body mass index (BMI) [Ratio] 36.3 kg/m2 [facility] 05-28-2023 09:48-0400 Body temperature 96.5 [degF] [facility] 05-28-2023 09:48-0400 Diastolic blood pressure 76 mm[Hg] [facility] 05-28-2023 09:48-0400 Heart rate 78 /min [facility] 05-28-2023 09:48-0400 Respiratory rate 18 /min [facility] 05-28-2023 09:48-0400 Systolic blood pressure 186 mm[Hg] [facility] 04-30-2023 00:46-0400 Body weight 102.05 kg [facility] 04-23-2023 09:49-0400 Body mass index (BMI) [Ratio] 36.3 kg/m2 [facility] 04-23-2023 09:49-0400 Diastolic blood pressure 101 mm[Hg] [facility] 04-23-2023 09:49-0400 Heart rate 73 /min [facility] 04-23-2023 09:49-0400 Systolic blood pressure 169 mm[Hg] [facility] 04-23-2023 09:23-0400 Body temperature 96.6 [degF] [facility] 04-23-2023 09:23-0400 Respiratory rate 18 /min [facility] 04-16-2023 08:58-0400 Body height 167.64 cm [facility] 04-16-2023 08:58-0400 Body weight 102.05 kg [facility] 01-21-2023 09:01-0500 Body height 167.6 cm Angelica Randall CNP Work Phone: [facility] 01-21-2023 09:01-0500 Body mass index (BMI) [Ratio] 38.76 kg/m2 Angelica Randall CNP Work Phone: [facility] 01-21-2023 09:01-0500 Body temperature 98.01 [degF] Angelica Dye INDUSTRIAL SALES ENGINEER Work Phone: [facility] 01-21-2023 09:01-0500 Body weight 108.92 kg Angelica Dye INDUSTRIAL SALES ENGINEER Work Phone: [facility] 01-21-2023 09:01-0500 Diastolic blood pressure 84 mm[Hg] Angelica Dye INDUSTRIAL SALES ENGINEER Work Phone: [facility] 01-21-2023 09:01-0500 Heart rate 67 /min Angelica Dye INDUSTRIAL SALES ENGINEER Work Phone: [facility] 01-21-2023 09:01-0500 Respiratory rate 16 /min Angelica Dye INDUSTRIAL SALES ENGINEER Work Phone: [facility] 01-21-2023 09:01-0500 SaO2% (BldA) [Mass fraction] 98 % Angelica Dye INDUSTRIAL SALES ENGINEER Work Phone: [facility] 01-21-2023 09:01-0500 Systolic blood pressure 198 mm[Hg] Angelica Dye INDUSTRIAL SALES ENGINEER Work Phone: [facility] 02-19-2022 11:13-0400 Diastolic blood pressure 85 mm[Hg] Angelica Dye INDUSTRIAL SALES ENGINEER Work Phone: [facility] 02-19-2022 11:13-0400 Systolic blood pressure 148 mm[Hg] Angelica Dye INDUSTRIAL SALES ENGINEER Work Phone: [facility] 02-19-2022 11:08-0400 Body height 167.6 cm Angelica Dye INDUSTRIAL SALES ENGINEER Work Phone: [facility] 02-19-2022 11:08-0400 Body mass index (BMI) [Ratio] 36.97 kg/m2 Angelica Dye INDUSTRIAL SALES ENGINEER Work Phone: [facility] 02-19-2022 11:08-0400 Body temperature 97.7 [degF] Angelica Dye INDUSTRIAL SALES ENGINEER Work Phone: [facility] 02-19-2022 11:08-0400 Body weight 103.9 kg Angelica Dye INDUSTRIAL SALES ENGINEER Work Phone: [facility] 02-19-2022 11:08-0400 Heart rate 69 /min Angelica Dye INDUSTRIAL SALES ENGINEER Work Phone: [facility] 02-19-2022 11:08-0400 Respiratory rate 16 /min Angelica Dye INDUSTRIAL SALES ENGINEER Work Phone: [facility] 02-19-2022 11:08-0400 SaO2% (BldA) [Mass fraction] 98 % Angelica Dye INDUSTRIAL SALES ENGINEER Work Phone: [facility] 02-03-2022 09:56-0500 Body mass index (BMI) [Ratio] 35.51 kg/m2 Angelica Dye INDUSTRIAL SALES ENGINEER Work Phone: [facility] 02-03-2022 09:56-0500 Body weight 99.79 kg Angelica Dye INDUSTRIAL SALES ENGINEER Work Phone: [facility] 02-03-2022 09:56-0500 Diastolic blood pressure 80 mm[Hg] Angelica Dye INDUSTRIAL SALES ENGINEER Work Phone: [facility] 02-03-2022 09:56-0500 Systolic blood pressure 132 mm[Hg] Angelica Dye INDUSTRIAL SALES ENGINEER Work Phone: [facility] 01-22-2022 07:52-0500 Body temperature 98.01 [degF] Lindsey Plummer MD Work Phone: [facility] 01-22-2022 07:52-0500 Diastolic blood pressure 84 mm[Hg] Lindsey Plummer MD Work Phone: [facility] 01-22-2022 07:52-0500 Heart rate 81 /min Lindsey Plummer MD Work Phone: [facility] 01-22-2022 07:52-0500 Respiratory rate 18 /min Lindsey Plummer MD Work Phone: [facility] 01-22-2022 07:52-0500 SaO2% (BldA) [Mass fraction] 98 % Lindsey Plummer MD Work Phone: [facility] 01-22-2022 07:52-0500 Systolic blood pressure 123 mm[Hg] Lindsey Plummer MD Work Phone: [facility] 01-22-2022 04:08-0500 Body mass index (BMI) [Ratio] 37.28 kg/m2 Lindsey Plummer MD Work Phone: [facility] 01-22-2022 04:08-0500 Body weight 104.78 kg Lindsey Plummer MD Work Phone: [facility] 01-21-2022 11:49-0500 Respiratory rate 0 /min Lindsey Plummer MD Work Phone: [facility] 01-21-2022 08:20-0500 Body height 167.6 cm Lindsey Plummer MD Work Phone: [facility] 01-09-2022 09:44-0500 Body height 167.6 cm Meir Arthur MD Work Phone: [facility] 01-09-2022 09:44-0500 Body mass index (BMI) [Ratio] 37.82 kg/m2 Meir Arthur MD Work Phone: [facility] 01-09-2022 09:44-0500 Body temperature 98.01 [degF] Meir Arthur MD Work Phone: [facility] 01-09-2022 09:44-0500 Body weight 106.3 kg Meir Arthur MD Work Phone: [facility] 01-09-2022 09:44-0500 Diastolic blood pressure 80 mm[Hg] Meir Arthur MD Work Phone: [facility] 01-09-2022 09:44-0500 Heart rate 78 /min Meir Arthur MD Work Phone: [facility] 01-09-2022 09:44-0500 Respiratory rate 18 /min Meir Arthur MD Work Phone: [facility] 01-09-2022 09:44-0500 SaO2% (BldA) [Mass fraction] 97 % Meir Arthur MD Work Phone: [facility] 01-09-2022 09:44-0500 Systolic blood pressure 143 mm[Hg] Meir Arthur MD Work Phone: [facility] 01-09-2022 09:36-0500 Body height 167.6 cm Lindsey Plummer MD Work Phone: [facility] 01-09-2022 09:36-0500 Body mass index (BMI) [Ratio] 37.82 kg/m2 Lindsey Plummer MD Work Phone: [facility] 01-09-2022 09:36-0500 Body temperature 98.01 [degF] Lindsey Plummer MD Work Phone: [facility] 01-09-2022 09:36-0500 Body weight 106.3 kg Lindsey Plummer MD Work Phone: [facility] 01-09-2022 09:36-0500 Diastolic blood pressure 80 mm[Hg] Lindsey Plummer MD Work Phone: [facility] 01-09-2022 09:36-0500 Heart rate 78 /min Lindsey Plummer MD Work Phone: [facility] 01-09-2022 09:36-0500 Respiratory rate 16 /min Lindsey Plummer MD Work Phone: [facility] 01-09-2022 09:36-0500 SaO2% (BldA) [Mass fraction] 97 % Lindsey Plummer MD Work Phone: [facility] 01-09-2022 09:36-0500 Systolic blood pressure 143 mm[Hg] Lindsey Plummer MD Work Phone: [facility] 06-10-2021 11:16-0400 Body height 167.6 cm Blaine Silveira MD Work Phone: [facility] 06-10-2021 11:16-0400 Body mass index (BMI) [Ratio] 36.8 kg/m2 Blaine Silveira MD Work Phone: [facility] 06-10-2021 11:16-0400 Body weight 103.42 kg Blaine Silveira MD Work Phone: [facility] 06-10-2021 11:16-0400 Diastolic blood pressure 73 mm[Hg] Blaine Silveira MD Work Phone: [facility] 06-10-2021 11:16-0400 Heart rate 73 /min Blaine Silveira MD Work Phone: [facility] 06-10-2021 11:16-0400 SaO2% (BldA) [Mass fraction] 98 % Blaine Silveira MD Work Phone: [facility] 06-10-2021 11:16-0400 Systolic blood pressure 148 mm[Hg] Blaine Silveira MD Work Phone: [facility] 06-06-2019 14:33-0400 BMI (Body Mass Index) 42.97 kg/m2 Blaine Gato [facility] 06-06-2019 14:33-0400 Body weight 120.75 kg Blaine Silveira [facility] 06-06-2019 14:33-0400 BP Diastolic 75 mm[Hg] Blaine Silveira [facility] 06-06-2019 14:33-0400 BP Systolic 159 mm[Hg] Blaine Silveira [facility] 06-06-2019 14:33-0400 Height 167.6 cm Blaine Silveira [facility] 06-06-2019 14:33-0400 Pulse (Heart Rate) 71 /min Blaine Silveira [facility] 06-06-2019 14:33-0400 Pulse Oximetry 96 % Blaine Gato [facility] Encounters Encounter Date Encounter Type Care Provider Facility Start: 05-30-2025 Evaluation and manag ement of inpatient Dr. Nicol Silva DO -Progressive Care Unit Work Phone: Start: 12-19-2024 End: 12-19-2024 ambulatory Kirill Newell Facility:[facility] Start: 05-27-2024 ambulatory Kirill Newell Facility:[facility] Start: 05-27-2024 End: 05-27-2024 ambulatory Kirill Newell Facility:[facility] Start: 03-25-2024 End: 03-29-2024 ambulatory JASS MALDONADO [facility] Ambulatory Start: 03-25-2024 End: 03-25-2024 Postop follow up visit related to original px Jass Pepe MD Work Phone: [facility] Comment on above: Status post total ri ght knee replacement (Primary Dx) Start: 03-11-2024 End: 03-15-2024 ambulatory [facility] Start: 03-11-2024 End: 03-11-2024 ambulatory Jass Pepe MD Work Phone: [facility] Comment on above: Status post total ri ght knee replacement (Primary Dx) Start: 03-09-2024 End: 03-13-2024 [facility] Start: 03-09-2024 End: 03-09-2024 ambulatory Jass Pepe MD Work Phone: [facility] Comment on above: Status post total ri ght knee replacement (Primary Dx) Start: 03-07-2024 End: 03-11-2024 ambulatory [facility] Start: 03-07-2024 End: 03-07-2024 ambulatory Jass Pepe MD Work Phone: [facility] Comment on above: Status post total ri ght knee replacement (Primary Dx) Start: 03-04-2024 End: 03-08-2024 ambulatory [facility] Start: 03-04-2024 End: 03-04-2024 ambulatory Jass Pepe MD Work Phone: [facility] Comment on above: Status post total ri ght knee replacement (Primary Dx) Start: 03-02-2024 End: 03-06-2024 ambulatory [facility] Start: 03-02-2024 End: 03-02-2024 ambulatory Jass Pepe MD Work Phone: [facility] Comment on above: Status post total ri ght knee replacement (Primary Dx) Start: 02-29-2024 End: 03-04-2024 ambulatory [facility] Start: 02-29-2024 End: 02-29-2024 ambulatory Jass Pepe MD Work Phone: [facility] Comment on above: Status post total ri ght knee replacement (Primary Dx) Start: 02-26-2024 End: 03-01-2024 ambulatory JASS COLE [facility] Start: 02-26-2024 End: 02-26-2024 ambulatory Jass Pepe MD Work Phone: [facility] Comment on above: Status post total ri ght knee replacement (Primary Dx) Start: 02-24-2024 End: 02-28-2024 [facility] Start: 02-24-2024 End: 02-24-2024 ambulatory Jass Pepe MD Work Phone: [facility] Comment on above: Status post total ri ght knee replacement (Primary Dx) Start: 02-22-2024 End: 02-26-2024 ambulatory [facility] Start: 02-22-2024 End: 02-22-2024 ambulatory Jass Pepe MD Work Phone: [facility] Comment on above: Status post total ri ght knee replacement (Primary Dx) Start: 02-19-2024 End: 02-23-2024 [facility] Start: 02-19-2024 End: 02-19-2024 ambulatory Jass Pepe MD Work Phone: [facility] Comment on above: Status post total ri ght knee replacement (Primary Dx) Start: 02-17-2024 End: 02-21-2024 ambulatory [facility] Start: 02-17-2024 End: 02-17-2024 ambulatory Jass Pepe MD Work Phone: [facility] Comment on above: Status post total ri ght knee replacement (Primary Dx) Start: 02-15-2024 End: 02-19-2024 ambulatory JASS PEPE [facility] Start: 02-15-2024 End: 02-15-2024 ambulatory Jass Pepe MD Work Phone: [facility] Comment on above: Status post total ri ght knee replacement Start: 02-12-2024 End: 02-12-2024 ambulatory NICOL IBANEZ [facility] Ambulatory Start: 02-12-2024 End: 02-12-2024 Postop follow up visit related to original px Jass Pepe MD Work Phone: [facility] Comment on above: Status post total ri ght knee replacement (Primary Dx) Start: 02-12-2024 Home visit Kendall Graff PT [facility] Comment on above: PT OASIS DISCHARGE Start: 02-11-2024 End: 02-11-2024 Home visit Lindsey Centeno RN [facility] Comment on above: SN HH NON-OASIS/DISC IPLINE DC Start: 02-10-2024 End: 02-10-2024 Home visit Cristhian Byrnes [facility] Comment on above: TRIM MACHINE OPERATOR ROUTINE VISIT Start: 02-09-2024 End: 02-09-2024 Home visit Lisa Odell [facility] Comment on above: JAVA WEBSPHERE DEVELOPER HH ROUTINE Start: 02-08-2024 End: 02-08-2024 Refill Jass Pepe MD Work Phone: [facility] Comment on above: Status post total ri ght knee replacement (Primary Dx) TRIM MACHINE OPERATOR ROUTINE VISIT Start: 02-05-2024 End: 02-05-2024 Home visit Cristhian Byrnes [facility] Comment on above: TRIM MACHINE OPERATOR ROUTINE VISIT JAVA WEBSPHERE DEVELOPER HH ROUTINE Start: 02-03-2024 End: 02-03-2024 Home visit Cristhian Byrnes [facility] Comment on above: TRIM MACHINE OPERATOR ROUTINE VISIT SN HH ROUTINE VISIT Start: 02-01-2024 Documentation procedure Yen gold LPN [facility] Start: 02-01-2024 End: 02-01-2024 Home visit Cristhian Byrnes [facility] Comment on above: TRIM MACHINE OPERATOR ROUTINE VISIT Start: 01-28-2024 End: 01-28-2024 Home visit Kendall Graff PT [facility] Comment on above: PT INITIAL EVALUATIO N Start: 01-27-2024 End: 02-12-2024 [facility] Start: 01-27-2024 End: 01-27-2024 Home visit Siena Rondon RN [facility] Comment on above: SN HH OASIS START OF CARE Start: 01-26-2024 End: 01-26-2024 ambulatory [facility] Start: 01-15-2024 End: 01-15-2024 [facility] Start: 01-15-2024 End: 01-15-2024 Office outpatient visit 15 minutes Jass Pepe MD Work Phone: [facility] Comment on above: Osteoarthritis of ri ght knee, unspecified osteoarthritis type (Primary Dx) Start: 01-11-2024 Documentation procedure Yen gold LPN [facility] Comment on above: 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) Start: 01-07-2024 End: 01-11-2024 ambulatory [facility] Start: 12-14-2023 End: 12-14-2023 ambulatory [facility] Work Phone: Start: 12-14-2023 End: 12-14-2023 Patient encounter procedure [facility] Work Phone: Start: 11-12-2023 End: 11-12-2023 ambulatory [facility] Work Phone: Start: 11-12-2023 End: 11-12-2023 Patient encounter procedure [facility] Work Phone: Start: 11-09-2023 End: 11-10-2023 ambulatory [facility] Start: 11-04-2023 End: 11-05-2023 ambulatory [facility] Start: 11-02-2023 End: 11-03-2023 ambulatory [facility] Start: 10-28-2023 End: 10-29-2023 ambulatory [facility] Start: 10-26-2023 End: 10-27-2023 ambulatory [facility] Start: 10-21-2023 End: 10-22-2023 ambulatory [facility] Start: 10-20-2023 End: 10-20-2023 ambulatory NICOL OSBORN [facility] Ambulatory Start: 10-20-2023 End: 10-20-2023 Office outpatient visit 25 minutes Blaine Silveira MD Work Phone: [facility] Comment on above: 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); Osteoarthritis of right knee, unspecified osteoarthritis type; Severe aortic insufficiency Start: 10-19-2023 End: 10-20-2023 ambulatory [facility] Start: 10-14-2023 End: 10-15-2023 ambulatory [facility] Start: 10-12-2023 End: 10-13-2023 ambulatory [facility] Start: 10-09-2023 End: 10-10-2023 ambulatory [facility] Start: 10-07-2023 End: 10-08-2023 ambulatory [facility] Start: 09-29-2023 End: 09-29-2023 ambulatory [facility] Start: 09-25-2023 Admission to [facility] Jass Pepe MD Work Phone: [facility] Comment on above: Osteoarthritis of ri ght knee, unspecified osteoarthritis type (Primary Dx); Hypertension, unspecified type Start: 09-14-2023 End: 09-18-2023 ambulatory NICOL OSBORN [facility] Ambulatory Start: 07-16-2023 End: 08-17-2023 ambulatory [facility] Work Phone: Start: 07-16-2023 End: 07-16-2023 Discharged [facility] Work Phone: Start: 06-25-2023 End: 06-25-2023 Emergency department patient visit [facility] Work Phone: Start: 06-25-2023 End: 06-29-2023 ambulatory [facility] Work Phone: Start: 06-25-2023 End: 06-29-2023 Discharged [facility] Work Phone: Start: 06-25-2023 Registered [facility] Work Phone: Start: 05-28-2023 End: 05-29-2023 ambulatory [facility] Work Phone: Start: 05-28-2023 End: 05-29-2023 Discharged [facility] Work Phone: Start: 04-23-2023 End: 04-29-2023 ambulatory [facility] Work Phone: Start: 04-23-2023 End: 04-29-2023 Discharged [facility] Start: 01-22-2023 ambulatory TERRIE Cavazos [facility] Start: 01-21-2023 End: 01-25-2023 ambulatory [facility] Start: 01-21-2023 End: 01-22-2023 ambulatory ANGELICA RANDALL [facility] Start: 01-21-2023 End: 01-21-2023 Office outpatient visit 25 minutes Angelica Randall [facility] Work Phone: [facility] Comment on above: S/P TAVR (transcathe ter aortic valve replacement) (Primary Dx); Hypertension, unspecified type Start: 06-19-2022 Orders Only Terrie [facility] Comment on above: S/P TAVR (transcathe ter aortic valve replacement) (Primary Dx) Start: 05-14-2022 ambulatory [facility] [id number] Start: 05-12-2022 ambulatory [facility] [id number] Start: 05-09-2022 ambulatory [facility] [id number] Start: 05-07-2022 ambulatory [facility] [id number] Start: 05-05-2022 ambulatory [facility] [id number] Start: 05-02-2022 ambulatory Rboert [facility]ugh [facility] [id number] Start: 04-30-2022 ambulatory Robert [...] Orders Only Blaine hines MD Work Phone: [facility] Start: 03-31-2022 ambulatory [...] [id number] Start: 02-19-2022 End: 02-23-2022 ambulatory NICOL [facility] Start: 02-19-2022 End: 02-19-2022 Office outpatient visit 15 minutes Angelica Randall CNP Work Phone: [facility] Comment on above: S/P TAVR (transcathe ter aortic valve replacement) (Primary Dx) Start: 02-17-2022 ambulatory [facility] [id number] Start: 02-14-2022 ambulatory Robert [facility] [id number] Start: 02-12-2022 ambulatory [facility] [id number] Start: 02-10-2022 ambulatory [facility] [id number] Start: 02-03-2022 End: 02-03-2022 Phys/qhp telephone evaluation 11-20 min Angelica Randall CNP Work Phone: [facility] Comment on above: S/P TAVR (transcathe ter aortic valve replacement) (Primary Dx) Start: 01-22-2022 Orders Only Ter[facility] Comment on above: S/P TAVR (transcathe ter aortic valve replacement) (Primary Dx) S/P TAVR (transcathe ter aortic valve replacement) (Primary Dx); Shortness of breath Start: 01-21-2022 End: 01-22-2022 Evaluation and management of inpatient Lindsey Plummer MD Work Phone: [facility] Start: 01-14-2022 Orders for Hospital Batool mendez Lynne INDUSTRIAL SALES ENGINEER Work Phone: [facility] Start: 01-13-2022 Orders Only Angelica Taylor Andrey ayers INDUSTRIAL SALES ENGINEER Work Phone: [facility] Comment on above: Encounter for prepro cedure screening laboratory testing for COVID-19 (Primary Dx) Start: 01-13-2022 Patient encounter status Muriel zuniga RN [facility] Start: 01-10-2022 Orders Only Clau Michaud RN [facility] Comment on above: Aortic valve stenosi s, severe (Primary Dx); Severe aortic insufficiency Start: 01-09-2022 Orders Only Terrie Oh RN [facility] Comment on above: Encounter for preope rative [...] Medical Center Start: 01-01-2022 Orders Only Terrie Núñez [facility] Comment on above: Encounter for prepro cedure screening laboratory testing for COVID-19 (Primary Dx) Start: 01-01-2022 Patient encounter status Terrie Warren RN [facility] Start: 12-31-2021 Orders Only Terrie Núñez [facility] Comment on above: Aortic valve stenosi s, severe (Primary Dx); Pre-operative cardiovascular examination; Other specified symptoms and signs involving the circulatory and respiratory systems Start: 12-31-2021 Patient encounter status Terrie Warren RN [facility] Start: 06-24-2021 End: 06-24-2021 Orders Only Iliana Madsen RN [facility] Comment on above: Nonrheumatic aortic valve insufficiency (Primary Dx) Start: 06-10-2021 End: 06-10-2021 Orders Only Iliana Madsen RN [facility] Comment on above: 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) Nonrheumatic aortic valve insufficiency (Primary Dx) Start: 06-10-2021 End: 06-10-2021 Office outpatient visit 25 minutes Blaine Silveira MD Work Phone: [facility] Comment on above: Coronary artery dise 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; Nonrheumatic aortic valve insufficiency; Elevated sed rate; Mixed hyperlipidemia Start: 01-23-2021 End: 01-23-2021 Orders Only Mustapha Al Work Phone: [facility] Start: 06-14-2019 End: 06-14-2019 Subsequent hospital visit by physician Blaine Silveira Work Phone: [facility] Comment on above: Nonrheumatic aortic valve insufficiency Start: 06-06-2019 End: 06-06-2019 Office outpatient visit 25 minutes Blaine Silveira Work [facility] Comment on above: SOB (shortness of br eath); Coronary artery dise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; Fibrosing mediastinitis; Nonrheumatic aortic valve insufficiency Start: 01-05-2018 Ambulatory Blaine Silveira [facility] erika:Zulema Start: 01-05-2018 End: 01-05-2018 Ambulatory Blaine Shieldsishman Work Phone: [facility] Procedures Date Procedure Procedure Detail Performing Clinician Start: 05-30-[address] Kirill Newell MD Work Phone: Start: 12-14-2023 Plain chest X-ray Start: 11-09-2023 FOLLOW UP IN PHYSICA L THERAPY JAVI AMEZCUA Start: 11-04-2023 FOLLOW UP IN PHYSICA L THERAPY JAVI AMEZCUA Start: 11-02-2023 FOLLOW UP IN PHYSICA L THERAPY JAVI AMEZCUA Start: 10-28-2023 FOLLOW UP IN PHYSICA L THERAPY JAVI AMEZCUA Start: 10-26-2023 FOLLOW UP IN PHYSICA L THERAPY JAVI AMEZCUA Start: 10-21-2023 FOLLOW UP IN PHYSICA L THERAPY JAVI AMEZCUA Start: 10-19-2023 FOLLOW UP IN PHYSICA L THERAPY JAVI AMEZCUA Start: 10-14-2023 FOLLOW UP IN PHYSICA L THERAPY JAVI AMEZCUA Start: 10-12-2023 FOLLOW UP IN PHYSICA L THERAPY JAVI AMEZCUA Start: 10-09-2023 FOLLOW UP IN PHYSICA L THERAPY JAVI AMEZCUA Start: 10-07-2023 FOLLOW UP IN PHYSICA L THERAPY JAVI AMEZCUA Start: 09-29-2023 AMB REFERRAL TO PHYS ICAL THERAPY JAVI AMEZCUA Start: 01-21-2023 Ecg routine ecg w/le ast 12 lds trcg only w/o i&r Angelica Claudia Dye INDUSTRIAL SALES ENGINEER Work Phone: Start: 02-19-2022 Ecg routine ecg w/le ast 12 lds trcg only w/o i&r Angelica Claudia Dye INDUSTRIAL SALES ENGINEER Work Phone: Start: 01-22-2022 Ecg routine ecg w/le ast 12 lds trcg only w/o i&r Angelica Claudia Dye INDUSTRIAL SALES ENGINEER Work Phone: Start: 01-22-2022 Basic metabolic pane l calcium total Angelica Claudia Dye INDUSTRIAL SALES ENGINEER Work Phone: Start: 01-21-2022 Potassium serum plasma/whole blood Angelica Claudia Dye INDUSTRIAL SALES ENGINEER Work Phone: Start: 01-21-2022 Dup-scan lxtr art/ar tl bpgs uni/lmtd study Angelica Randall INDUSTRIAL SALES ENGINEER Work Phone: Start: 01-21-2022 Basic metabolic pane l calcium total Angelica Randall INDUSTRIAL SALES ENGINEER Work Phone: Start: 01-21-2022 Radiologic exam ches t single view Angelica Randall INDUSTRIAL SALES ENGINEER Work Phone: Start: 01-21-2022 Ecg routine ecg w/le ast 12 lds trcg only w/o i&r Angelicaarmen Randall INDUSTRIAL SALES ENGINEER Work Phone: Start: 01-21-2022 Cardiac catheterization Angelica Randall INDUSTRIAL SALES ENGINEER Work Phone: Start: 01-21-2022 2D TTE w or w/o fol w/con,fu Batool Batista INDUSTRIAL SALES ENGINEER Work Phone: Start: 01-21-2022 Sodium serum plasma or whole blood Lindsey Plummer MD Work Phone: Start: 01-21-2022 End: 01-21-2022 TRANSCATHETER AORTIC VALVE REPLACEMENT FEMORAL APPROACH Meir Arthur MD Work Phone: Start: 01-21-2022 Basic metabolic pane l calcium total Batool Batista CNP Work Phone: Start: 01-21-2022 Packed RBC preparation Batool Batista CNP Work Phone: Start: 01-09-2022 Ecg routine [...] Status post double vessel coronary artery bypass Comment on above: 2000 History of coronary artery bypass grafting Status post double vessel coronary artery bypass Dr. Nicol Silva DO Plan of Treatment Date Care Activity Detail Author Start: 11-07-2026 Tetanus vaccination [facility] Start: 05-30-2025 Verification routine [facility] Start: 05-30-2025 Admission procedure [facility] Start: 05-30-2025 Hospital admission, emergency, from emergency room, medical nature [facility] Start: 09-13-2024 Fall risk assessment Falls Risk Assessment [facility] Start: 03-18-2024 End: 03-18-2024 Follow-up encounter 03/18/2024 2:30 PM EDT Follow-Up [facility] [address] [place] [address] Jass Pepe MD [address] [place] [address] [facility] Start: 03-11-2024 End: 03-11-2024 ambulatory [facility] Start: 03-09-2024 End: 03-09-2024 ambulatory [facility] Start: 03-07-2024 End: 03-07-2024 ambulatory [facility] Start: 03-04-2024 End: 03-04-2024 ambulatory 03/04/2024 10:45 AM EDT Treatment [facility] [address] [place] [id number] Jass Pepe MD [address] [place] [address] Gabriel Tovar PTA [facility] Start: 03-02-2024 End: 03-02-2024 ambulatory 03/02/2024 10:45 AM EDT Treatment [facility] [address] [place] [address] Jass Pepe MD [address] [place] [id number] Dajuan Arroyo, PT [facility] Start: 02-29-2024 End: 02-29-2024 ambulatory 02/29/2024 10:45 AM EDT Treatment [facility] [address] [place] [address] Jass Pepe MD [address] [place] [address] Gabriel Tovar [facility] Start: 02-26-2024 End: 02-26-2024 ambulatory 02/26/2024 10:45 AM EDT Treatment [facility] [address] [place] [address] Jass Pepe MD [address] [place] [address] Sherlyn Villavicencio [facility] Start: 02-24-2024 End: 02-24-2024 ambulatory 02/24/2024 10:45 AM EDT Treatment [facility] [address] [place] [address] Jass Pepe MD [address] [place] [address] Gabriel Tovar [facility] Start: 02-22-2024 End: 02-22-2024 ambulatory 02/22/2024 10:45 AM EDT Treatment [facility] [address] [place] [address] Jass Pepe MD [address] [place] [place] [id number] Dajuan Arroyo, PT [facility] Start: 02-19-2024 End: 02-19-2024 ambulatory 02/19/2024 10:45 AM EDT Treatment [facility] [address] [place] [address] Jass Pepe MD [address] [place] [id number] Gabriel Tovar, TRIM MACHINE OPERATOR [facility] Start: 02-17-2024 End: 02-17-2024 ambulatory 02/17/2024 10:45 AM EDT Treatment [facility] [address] [place] [address] Jass Pepe MD [address] [place] [address] Gabriel Tovar, TRIM MACHINE OPERATOR Discharge Disposition: Home [facility] Start: 02-15-2024 End: 02-15-2024 ambulatory 02/15/2024 10:45 AM EDT Evaluation [facility] [address] [place] [address] Jass Pepe MD [address] [place] [address] Dajuan Arroyo, PT Discharge Disposition: Home [facility] Start: 02-12-2024 End: 02-12-2024 Follow-up encounter 02/12/2024 2:15 PM EDT Follow-Up [facility] [address] [place] [address] Jass Pepe MD [address] [place] [address] [facility] Start: 02-12-2024 End: 02-12-2024 Home visit 02/12/2024 8:00 AM EDT Home Care Visit [address] [address] Kendall Graff, PT [facility] Start: 02-11-2024 End: 02-11-2024 Patient encounter procedure [facility] Start: 02-11-2024 End: 02-11-2024 Home visit 02/11/2024 3:30 AM EDT Home Care Visit [place] [phone] Kendall Graff, PT [facility] Start: 02-11-2024 End: 02-11-2024 Patient encounter procedure 02/11/2024 Appointment [place] [phone] Lindsey Centeno RN [facility] Start: 02-10-2024 End: 02-10-2024 Home visit 02/10/2024 10:00 AM EDT Home Care Visit [place] [phone] Cristhian Byrnes PTA [facility] Start: 02-09-2024 End: 02-10-2024 Home visit [facility] Start: 02-08-2024 End: 02-09-2024 Home visit [facility] Start: 02-05-2024 End: 02-05-2024 Home visit 02/05/2024 10:00 AM EST Home Care Visit [address] [address] Cristhian Byrnes PTA [facility] Start: 02-05-2024 End: 02-05-2024 Home visit [facility] Start: 02-03-2024 End: 02-03-2024 Home visit 02/03/2024 11:00 AM EST Home Care Visit [address] [address] Cristhian Byrnes PTA [facility] Start: 02-03-2024 End: 02-03-2024 Home visit 02/03/2024 Home Care Visit [address] [address] Cristhian Byrnes PTA [facility] Start: 01-28-2024 End: 01-28-2024 Home visit [facility] Start: 01-26-2024 End: 01-26-2024 Admission to same day surgery center 01/26/2024 2:11 PM EST - 01/26/2024 4:14 PM EST Surgery [facility] [address] [place] [address] Jass Pepe MD [address] [place] [address] Right total knee replacement Robotic [facility] Comment on above: Right total knee replacement Robotic Start: 01-26-2024 End: 01-26-2024 ARTHROPLASTY KNEE TOTAL ROBOTIC ARTHROPLASTY KNEE TOTAL ROBOTIC Osteoarthritis of right knee, unspecified osteoarthritis type 01/26/2024 2:11 PM EST [facility] Start: 01-26-2024 Subsequent hospital visit by physician 01/26/2024 2:11 PM EST Hospital Encounter [facility] [address] [place] [address] Jass Pepe MD [address] [place] [address] [facility] Start: 01-15-2024 End: 01-15-2024 Patient encounter procedure 01/15/2024 1:15 PM EST Surgical Consult [facility] [address] [place] [address] Jass Pepe MD [address] [place] [address] [facility] Start: 2023 End: 2023 Admission to same day surgery center 2023 7:05 AM EST - 2023 9:08 AM EST Surgery [facility] [address] [place] [address] Jass Pepe MD [address] [place] [address] Right total knee replacement Robotic [facility] Comment on above: Right total knee replacement Robotic Start: 2023 End: 2023 ARTHROPLASTY KNEE TOTAL ROBOTIC ARTHROPLASTY KNEE TOTAL ROBOTIC Osteoarthritis of right knee, unspecified osteoarthritis type 2023 7:05 AM EST [facility] Start: 2023 Subsequent hospital visit by physician [facility] Start: 12-11-2023 End: 12-11-2023 Patient encounter procedure 12/11/2023 1:00 PM EST Surgical Consult [facility] [address] [place] [address] Jass Pepe MD [address] [place] [address] [facility] Start: 12-03-2023 End: 12-03-2023 Patient encounter procedure 12/03/2023 10:30 AM EST Appointment [facility] Scan [address] [place] [address] Jass Pepe MD [address] [place] [address] [facility] [address] Scan Start: 12-03-2023 End: 12-03-2023 Patient encounter procedure 12/03/2023 7:15 AM EST Office Visit [facility] [address] [place] [address] [facility] Start: 11-30-2023 Administration of herpes zoster vaccine Zoster Vaccines (2 of 2) [facility] Start: 07-31-2023 COVID-19 Vaccine ( season) COVID-19 Vaccine ( season) [facility] Start: 07-31-2023 Influenza vaccination Sequential Influenza Vaccine (#1) [facility] Start: 06-25-2023 Simple repair f/e/e/n/l/m 2.5cm/< RPR F/E/E/N/L/M 2.5 CM/< [place] Start: 01-21-2023 End: 01-21-2023 Patient encounter procedure [facility] Start: 07-31-2022 Influenza vaccination Sequential Influenza Vaccine (#1) [facility] Start: 04-28-2022 COVID-19 Vaccine (5 - Booster for Pfizer series) COVID-19 Vaccine (5 - Booster for Pfizer series) [facility] Start: 04-04-2022 End: 04-04-2022 Patient encounter procedure 04/04/2022 Office Visit Cardiology Blaine Silveira MD [address] [facility] [address] [place] [address] [facility] Start: 02-19-2022 End: 02-19-2022 Patient encounter procedure [facility] Start: 02-03-2022 End: 02-03-2022 Telemedicine consultation with patient 02/03/2022 Telemedicine Telephone Cardiology Angelica Randall, INDUSTRIAL SALES ENGINEER [address] [address] [facility] Start: 01-21-2022 End: 01-21-2022 Admission to same day surgery center 01/21/2022 Surgery Lindsey Plummer MD [address] [facility] [address] [place] [address] Transcatheter Aortic Valve Replacement [facility] Comment on above: Transcatheter Aortic Valve Replacement Start: 01-21-2022 Subsequent hospital visit by physician 01/21/2022 Hospital Encounter Lindsey Plummer MD [address] [facility] [address] [place] [address] [facility] Start: 01-21-2022 End: 01-21-2022 TRANSCATHETER AORTIC VALVE REPLACEMENT FEMORAL APPROACH TRANSCATHETER AORTIC VALVE REPLACEMENT FEMORAL APPROACH severe aortic stenosis 01/21/2022 10:30 AM EST [facility] Start: 01-17-2022 End: 01-17-2022 Patient encounter procedure 01/17/2022 Office Visit Lab Angelica Randall, INDUSTRIAL SALES ENGINEER [address] [place] [id number] [facility] Start: 01-15-2022 End: 01-15-2022 Admission to same day surgery center [facility] Rubber Chemist Comment on above: Left Heart Cath Possbile PTCA/Stent LEFT HEART CATH Start: 01-15-2022 Subsequent hospital visit by physician 01/15/2022 Hospital Encounter Silvio Mckeon MD [address] [facility] [address] [place] [address] [facility] Procedural Care Unit Start: 01-09-2022 End: 01-10-2022 Patient encounter procedure [facility] Start: 01-09-2022 Subsequent hospital visit by physician [facility] CT Start: 01-06-2022 End: 01-06-2022 Patient encounter procedure 01/06/2022 Office Visit Lab Angelica Randall, INDUSTRIAL SALES ENGINEER [address] [address] [facility] Start: 12-25-2021 End: 08-25-2022 Echocardiography Echocardiogram complete Echocardiography Routine Nonrheumatic aortic valve insufficiency Expected: 12/25/2021 (Approximate), Expires: 08/25/2022 [facility] Comment on above: Expected: 12/25/2021 (Approximate), Expi res: 08/25/2022 Start: 07-31-2021 Influenza vaccination Sequential Influenza Vaccine (#1) [facility] Start: 06-21-2021 End: 06-21-2021 Patient encounter procedure 06/21/2021 Appointment Cardiology Blaine Silveira MD [address] [place] [address] [phone] [facility] Start: 05-25-2021 Pneumococcal vaccination Pneumococcal Vaccine Age 65+ (2 of 2 - PPSV23) [facility] Start: 07-31-2020 Influenza vaccination given Sequential Influenza Vaccine (#1) [facility] Start: 2019 Fall risk assessment Falls Risk Assessment [facility] Start: 07-31-2019 Influenza vaccination given SEQUENTIAL INFLUENZA VACCINE (#1) [facility] Start: 06-14-2019 End: 06-14-2019 Appointment 06/14/2019 Appointment Cardiology Blaine Silveira MD [address] [place] [address] [phone] [facility] Start: 07-31-2017 Influenza vaccination SEQUENTIAL INFLUENZA VACCINE (#1) [facility] Work Phone: Start: 2014 Zoster vacc, sc ZOSTER VACCINE [facility] Work Phone: Start: 2004 Administration of herpes zoster vaccine Zoster Vaccines (1 of 2) [facility] Start: 2004 Screening for malignant neoplasm of colon [facility] Start: 1994 Screening for malignant neoplasm of breast Mammogram [facility] Start: 1994 Screening mammography Mammogram [facility] Start: 1970 COVID-19 Vaccine (1 of 2) COVID-19 Vaccine (1 of 2) [facility] Start: 1966 Adolescent depression screening assessment Depression Screening (PHQ9) [facility] Start: 1966 Depression screening using PHQ-9 (Patient Health Questionnaire 9) score [facility] Start: 1960 Pneumococcal Vaccine: Age 65+ (1 of 2 - PPSV23) Pneumococcal Vaccine: Age 65+ (1 of 2 - PPSV23) [facility] Start: 1957 History and physical examination, annual for health maintenance Wellness Visit [facility] Start: 1954 Fall risk assessment Falls Risk Assessment [facility] Start: 1954 Physical therapy management PT Plan of Care [facility] Start: 1954 Screening colonoscopy COLONOSCOPY [facility] Work Phone: Start: 1954 Screening for malignant neoplasm of cervix PAP SMEAR [facility] Work Phone: Start: 1954 Screening for malignant neoplasm of colon [facility] Start: 1954 Screening for osteoporosis Dexa Scan [facility] Start: 1954 Screening mammography Mammogram [facility] Start: 1954 Tetanus vaccination TETANUS EVERY 10 YR [facility] Work Phone: End: 12-31-2022 12 lead ECG ECG 12 Lead ECG Routine Aortic valve stenosis, severe Pre-operative cardiovascular examination 1 Occurrences starting 12/31/2021 until 12/31/2022 [facility] Comment on above: 1 Occurrences starting 12/31/2021 until 12/31/2022 End: 01-22-2023 12 lead ECG ECG 12 Lead ECG Routine S/P TAVR (transcatheter aortic valve replacement) 1 Occurrences starting 01/22/2022 until 01/22/2023 [facility] Comment on above: 1 Occurrences starting 01/22/2022 until 01/22/2023 End: 06-19-2023 12 lead ECG ECG 12 Lead ECG Routine S/P TAVR (transcatheter aortic valve replacement) 1 Occurrences starting 06/19/2022 until 06/19/2023 [facility] Comment on above: 1 Occurrences starting 06/19/2022 until 06/19/2023 End: 09-25-2024 12 lead ECG ECG 12 Lead ECG Routine Osteoarthritis of right knee, unspecified osteoarthritis type 1 Occurrences starting 09/27/2023 until 09/25/2024 [facility] Comment on above: 1 Occurrences starting 09/27/2023 until 09/25/2024 ARTHROPLASTY KNEE TO FARIHA ROBOTIC ARTHROPLASTY KNEE TOTAL ROBOTIC Osteoarthritis of right knee, unspecified osteoarthritis type [facility] End: 02-13-2023 Basic metabolic 2000 panel - Serum or Plasma Basic metabolic panel Lab Routine S/P TAVR (transcatheter aortic valve replacement) 1 Occurrences starting 02/13/2022 until 02/13/2023 [facility] Comment on above: 1 Occurrences starting 02/13/2022 until 02/13/2023 End: 01-19-2024 Basic metabolic 2000 panel - Serum or Plasma Basic metabolic panel Lab Routine S/P TAVR (transcatheter aortic valve replacement) 1 Occurrences starting 01/19/2023 until 01/19/2024 [facility] Comment on above: 1 Occurrences starting 01/19/2023 until 01/19/2024 End: 09-25-2024 Basic metabolic 2000 panel - Serum or Plasma Basic metabolic panel Lab Routine Osteoarthritis of right knee, unspecified osteoarthritis type 1 Occurrences starting 09/27/2023 until 09/25/2024 [facility] Comment on above: 1 Occurrences starting 09/27/2023 until 09/25/2024 Cardiac catheterization Cardiac Catheterization Cardiac Cath Routine 01/21/2022 12:46 PM EST [facility] End: 02-28-2023 Carotid artery doppler assessment Carotid Duplex Vascular Ultrasound Routine Aortic valve stenosis, severe Pre-operative cardiovascular examination Other specified symptoms and signs involving the circulatory and respiratory systems 1 Occurrences starting 12/31/2021 until 02/28/2023 [facility] Comment on above: 1 Occurrences starting 12/31/2021 until 02/28/2023 End: 02-13-2023 CBC panel - Blood by Automated count CBC Lab Routine S/P TAVR (transcatheter aortic valve replacement) 1 Occurrences starting 02/13/2022 until 02/13/2023 [facility] Comment on above: 1 Occurrences starting 02/13/2022 until 02/13/2023 End: 01-19-2024 CBC panel - Blood by Automated count CBC Lab Routine S/P TAVR (transcatheter aortic valve replacement) 1 Occurrences starting 01/19/2023 until 01/19/2024 [facility] Comment on above: 1 Occurrences starting 01/19/2023 until 01/19/2024 End: 09-25-2024 Complete blood count with white cell differential, manual CBC and differential Lab Routine Osteoarthritis of right knee, unspecified osteoarthritis type Hypertension, unspecified type 1 Occurrences starting 09/27/2023 until 09/25/2024 [facility] Comment on above: 1 Occurrences starting 09/27/2023 until 09/25/2024 End: 12-31-2022 Complete PFT with pre and post bronchodilators Complete PFT with pre and post bronchodilators PFT Routine Aortic valve stenosis, severe Pre-operative cardiovascular examination 1 Occurrences starting 12/31/2021 until 12/31/2022 [facility] Work Phone: Comment on above: 1 Occurrences starting 12/31/2021 until 12/31/2022 End: 09-25-2024 CT Knee Right Without Contrast CT Knee Right Without Contrast Imaging Routine Osteoarthritis of right knee, unspecified osteoarthritis type 1 Occurrences starting 09/27/2023 until 09/25/2024 [facility] Comment on above: 1 Occurrences starting 09/27/2023 until 09/25/2024 End: 06-06-2020 Echocardiography Echocardiogram complete Echocardiography Routine Nonrheumatic aortic valve insufficiency 1 Occurrences starting 06/06/2019 until 06/06/2020 [facility] Comment on above: 1 Occurrences starting 06/06/2019 until 06/06/2020 End: 08-11-2022 Echocardiography Echocardiogram complete Echocardiography Routine Nonrheumatic aortic valve insufficiency 1 Occurrences starting 06/10/2021 until 08/11/2022 [facility] Comment on above: 1 Occurrences starting 06/10/2021 until 08/11/2022 End: 03-22-2023 Echocardiography Echocardiogram complete Echocardiography Routine S/P TAVR (transcatheter aortic valve replacement) 1 Occurrences starting 01/22/2022 until 03/22/2023 [facility] Work Phone: Comment on above: 1 Occurrences starting 01/22/2022 until 03/22/2023 End: 01-22-2022 Echocardiography Echocardiogram complete Echocardiography Routine Once for 1 Occurrences starting 01/22/2022 until 01/22/2022 [facility] Work Phone: Comment on above: Once for 1 Occurrences starting 01/22/20 until 01/22/2022 Echocardiography Echocardiogram complete Echocardiography Routine 01/22/2022 10:04 AM EST [facility] End: 08-20-2023 Echocardiography Echocardiogram complete Echocardiography Routine S/P TAVR (transcatheter aortic valve replacement) 1 Occurrences starting 06/19/2022 until 08/20/2023 [facility] Work Phone: Comment on above: 1 Occurrences starting 06/19/2022 until 08/20/2023 Hemoglobin A1c/Hemoglobin.total in Blood [facility] End: 09-25-2024 Incentive spirometry - Initial Instruction Incentive spirometry - Initial Instruction Respiratory Care Routine Osteoarthritis of right knee, unspecified osteoarthritis type 1 Occurrences starting 09/27/2023 until 09/25/2024 [facility] Work Phone: Comment on above: 1 Occurrences starting 09/27/2023 until 09/25/2024 End: 12-31-2022 Methicillin resistant Staphylococcus aureus [Presence] in Unspecified specimen by Organism specific culture MRSA Culture/Screen Microbiology Routine Aortic valve stenosis, severe Pre-operative cardiovascular examination 1 Occurrences starting 12/31/2021 until 12/31/2022 [facility] Comment on above: 1 Occurrences starting 12/31/2021 until 12/31/2022 Methicillin resistan t Staphylococcus aureus [Presence] in Unspecified specimen by Organism specific culture MRSA Culture/Screen Microbiology Routine Aortic valve stenosis, severe Pre-operative cardiovascular examination 01/09/2022 9:45 AM EST [facility] Work Phone: End: 09-25-2024 Methicillin resistant Staphylococcus aureus [Presence] in Unspecified specimen by Organism specific culture MRSA Culture Microbiology Routine Osteoarthritis of right knee, unspecified osteoarthritis type 1 Occurrences starting 09/27/2023 until 09/25/2024 [facility] Comment on above: 1 Occurrences starting 09/27/2023 until 09/25/2024 End: 02-13-2023 Natriuretic peptide.B prohormone N-Terminal [Mass/volume] in Serum or Plasma NT PRO BNP Lab Routine S/P TAVR (transcatheter aortic valve replacement) Shortness of breath 1 Occurrences starting 02/13/2022 until 02/13/2023 [facility] Comment on above: 1 Occurrences starting 02/13/2022 until 02/13/2023 Patient Education ED Head Injury (Adult) ED Laceration: All Closures [facility] Work Phone: Patient referral [facility] Work Phone: End: 06-11-2022 Radionuclide myocardial perfusion study NM Myocardial Perfusion Multiple SPECT Imaging Routine Coronary artery dise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 1 Occurrences starting 06/10/2021 until 06/11/2022 [facility] Comment on above: 1 Occurrences starting 06/10/2021 until 06/11/2022 End: 01-09-2023 SARS-CoV-2 (COVID-19) RdRp gene [Presence] in Respiratory specimen by MAXIMUS with probe detection COVID-19, Molecular Microbiology Routine Encounter for preoperative screening laboratory testing for COVID-19 virus 1 Occurrences starting 01/09/2022 until 01/09/2023 [facility] Work Phone: Comment on above: 1 Occurrences starting 01/09/2022 until 01/09/2023 End: 01-13-2023 SARS-CoV-2 (COVID-19) RdRp gene [Presence] in Respiratory specimen by MAXIMUS with probe detection COVID-19, Molecular Microbiology Routine Encounter for preprocedure screening laboratory testing for COVID-19 1 Occurrences starting 01/13/2022 until 01/13/2023 [facility] Work Phone: Comment on above: 1 Occurrences starting 01/13/2022 until 01/13/2023 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 Vascular Ultrasound Routine 01/21/2022 2:16 PM EST [facility] Immunizations Immunization Date Immunization Notes Care Provider Fa glennaty 10-05-2024 Pfizer Covid-19 (Comirnaty) Dr. Kirill Newell MD Work Phone: [facility] 01-11-[address] Kirill Newell MD Work Phone: [facility] Payers Date Payer Category Payer Self-pay [id number] 2019 Medicare MEDICARE MEDICAR E PART A & B [id number] 2019-Present [place] [id number] 2019 Medicare MEDICARE MEDICAR E PART A & B [id number] 2019-Present [phone] [employer] [id number] PART A CLAIMS [address] [address] [place] [address] [id number] .[id number] 2019 Medicare [id number] 2019 Unknown [id number] 2000 Unknown [id number] 2.16.840.1.982330.3.249.13 2000 Unknown [facility] UHC/UHONE/GO LDEN RULE xxxxxxxxx 2000-Present xxxxxxxxx 1.2.840.101306.1.13.385.2.7.3 .207797.315 1954 Unknown [id number] 2.16.840.1.704525.3.579.2.106 9 1954 Unknown [id number] 2.16.840.1.886740.3.579.2.106 9 1954 Unknown [id number] 2.16.840.1.306994.3.579.2.106 9 1954 Unknown [id number] 2.16.840.1.618014.3.579.2.106 9 1954 Unknown [id number] 2.16.840.1.980429.3.579.2.106 9 1954 Unknown [id number] 2.16.840.1.783755.3.579.2.106 9 1954 Unknown [id number] 2.16.840.1.428149.3.579.2.106 9 1954 Unknown [id number] 2.16.840.1.423212.3.579.2.106 9 1954 Unknown [id number] 2.16.840.1.194520.3.579.2.106 9 1954 Unknown [id number] 2.16.840.1.344917.3.579.2.106 9 1954 Unknown [id number] 2.16.840.1.911461.3.579.2.106 9 1954 Unknown [id number] 2.16.840.1.056591.3.579.2.106 9 1954 Unknown [id number] 2.16.840.1.296910.3.579.2.106 9 1954 Unknown [id number] 2.16.840.1.504090.3.579.2.106 9 1954 Unknown [id number] 2.16.840.1.732095.3.579.2.106 9 1954 Unknown [id number] 2.16.840.1.401128.3.579.2.106 9 1954 Unknown [id number] 2.16.840.1.572121.3.579.2.106 9 1954 Unknown [id number] 2.16.840.1.888779.3.579.2.106 9 1954 Unknown [id number] 2.16.840.1.805769.3.579.2.106 9 1954 Unknown [id number] 2.16.840.1.801319.3.579.2.106 9 1954 Unknown [id number] 2.16.840.1.144617.3.579.2.106 9 1954 Unknown [id number] 2.16.840.1.716929.3.579.2.106 9 1954 Unknown [id number] 2.16.840.1.980553.3.579.2.106 9 1954 Unknown [id number] 2.16.840.1.690664.3.579.2.106 9 1954 Unknown [id number] 2.16.840.1.396454.3.579.2.106 9 1954 Unknown [id number] 2.16.840.1.008355.3.579.2.106 9 1954 Unknown [id number] 2.16.840.1.586543.3.579.2.106 9 1954 Unknown [id number] 2.16.840.1.951994.3.579.2.106 9 1954 Unknown [id number] 2.16.840.1.077590.3.579.2.106 9 1954 Unknown [id number] 2.16.840.1.565265.3.579.2.106 9 1954 Unknown [id number] 2.16.840.1.260416.3.579.2.106 9 1954 Unknown [id number] 2.16.840.1.068838.3.579.2.106 9 1954 Unknown [id number] 2.16.840.1.331781.3.579.2.106 9 1954 Unknown [id number] 2.16.840.1.469928.3.579.2.106 9 1954 Unknown [id number] 2.16.840.1.395087.3.579.2.106 9 1954 Unknown [id number] 2.16.840.1.977905.3.579.2.106 9 1954 Unknown [id number] 2.16.840.1.032818.3.579.2.106 9 1954 Unknown [id number] 2.16.840.1.276829.3.579.2.900 1954 Unknown [id number] 2.16.840.1.386580.3.579.2.900 1954 Unknown [id number] 2.16.840.1.198475.3.579.2.902 1954 Unknown [id number] 2.16.840.1.028667.3.579.2.902 1954 Unknown [id number] 2.16.840.1.073619.3.579.2.902 1954 Unknown [id number] 2.16.840.1.379982.3.579.2.124 3 1954 Unknown [id number] 2.16.840.1.863616.3.579.2.124 3 1954 Unknown [id number] 2.16.840.1.972708.3.579.2.124 3 1954 Unknown [id number] 2.16.840.1.482177.3.579.2.124 3 1954 Unknown [id number] 2.16.840.1.221481.3.579.2.124 3 1954 Unknown [id number] 2.16.840.1.788590.3.579.2.124 3 1954 Unknown [id number] 2.16.840.1.415908.3.579.2.124 3 1954 Unknown [id number] 2.16.840.1.516478.3.579.2.124 3 1954 Unknown [id number] 2.16.840.1.406499.3.579.2.124 3 1954 Unknown [id number] 2.16.840.1.028932.3.579.2.124 3 1954 Unknown [id number] 2.16.840.1.921048.3.579.2.124 3 1954 Unknown [id number] 2.16.840.1.438443.3.579.2.124 3 1954 Unknown [id number] 2.16.840.1.934372.3.579.2. 1954 Unknown [id number] 2.16.840.1.892473.3.579.2. 1954 Unknown [id number] 2.16.840.1.362654.3.579.2.3 1954 Unknown [id number] 2.16.840.1.350275.3.579.2.90 1954 Unknown [id number] 2.16.840.1.334300.3.579.2.90 1954 Unknown [id number] 2.16.840.1.852032.3.579.2. 1954 Unknown [id number] 2.16.840.1.089761.3.579.2.90 1954 Unknown [id number] 2.16.840.1.524891.3.579.2.903 1954 Unknown [id number] 2.16.840.1.265904.3.579.2.90 1954 Unknown [id number] 2.16.840.1.043563.3.579.2.903 1954 Unknown [id number] 2.16.840.1.493702.3.579.2. 1954 Unknown [id number] 2.16.840.1.410988.3.579.2.90 1954 Unknown [id number] 2.16.840.1.918222.3.579.2 1954 Unknown [id number] 2.16.840.1.192273.3.579.2 1954 Unknown [id number] 2.16.840.1.314395.3.579.2 1954 Unknown [id number] 2.16.840.1.986395.3.579.2.90 1954 Unknown [id number] 2.16.840.1.925924.3.579.2. 1954 Unknown [id number] 2.16.840.1.973612.3.579.2.90 1954 Unknown [id number] 2.16.840.1.887052.3.579.2. 1954 Unknown [id number] 2.16.840.1.595012.3.579.2.90 1954 Unknown [id number] 2.16.840.1.533772.3.579.2. 1954 Unknown [id number] 2.16.840.1.698400.3.579.2.903 1954 Unknown [id number] 2.16.840.1.519946.3.579.2 Unknown COMMERCIAL COMME RCIAL MISCELLANEOUS [id number] Effective for all dates [id number] 1.2.840.014394.1.13.385.2.7.3 .431608.315 Unknown COMMERCIAL COMME RCIAL MISCELLANEOUS [id number] Effective for all dates [phone] [address] [address] [place] [address] 1.2.840.641830.1.13.385.2.7.3 .159842.315 Unknown [id number] 2.16.840.1.271581.3.579.2.462 Unknown [id number] 2.16.840.1.915790.3.579.2.462 Unknown [id number] 2.16.840.1.553643.3.579.2.462 Social History Date Type Detail Facility Start: 06-08-2017 End: 05-29-2025 Tobacco smoking status NHIS Never smoker [facility] Start: 1955 Sex Assigned At Not on file [facility] Work Phone: Start: 06-06-2019 Alcohol Comment occasional [facility] Start: 06-11-2020 End: 01-21-2023 Tobacco use and exposure Never used [facility] Start: 06-11-2020 End: 03-04-2024 Alcohol intake Current drinker of alcohol (finding) [facility] Start: 06-10-2021 End: 02-24-2024 Alcohol intake [facility] Start: 01-11-2022 End: 01-21-2023 Exposure to SARS-CoV-2 (event) Not sure [facility] Start: 12-06-2019 End: 06-25-2023 Tobacco smoking status NHIS Unknown if ever smoked [facility] Start: 1955 Sex Assigned At Female [facility] Start: 09-14-2023 End: 02-24-2024 Tobacco use panel [facility] Start: 06-06-2019 Gender identity Identifies as female gender (finding) [facility] Start: 06-06-2019 Sexual orientation Heterosexual (finding) [facility] Lack of Transportati on (Medical) No [facility] Medical Equipment Procedure Code Equipment Code Equipment Origin al Text Equipment Identifier Dates Closure 6fr Angioseal Vip - [id number] Start: 01-15-2022 Closure Perclose Prostyle - [id number] Start: 01-21-2022 Valve 34mm Evolu t Pro Aortic - [id number] [id number], [id number] FDA Start: 01-21-2022 Hemostat 2 X 4in Surgicel Snow Sterl - [id number] Start: 01-21-2022 Baseplate Sz3 Ti bial Tritanium Triathlon - [id number] ()[id number] 7)[id number], [id number] FDA Start: 01-26-2024 Component Sz3 Fe m Cr Rt Cementless Beaded W/Pa Triathlon - [id number] 7)[id number])[id number], [id number] FDA Start: 01-26-2024 Patella 29mm Asymmetric Metal-Backed Tritanium Triathlon - [id number] ()[id number] 7)[id number], [id number] FDA Start: 01-26-2024 Insert Sz3-11 Ti bial Cr X3 Triathlon 6565-[id number]-[id number] - [id number] ()[id number] 7)[id number])[id number], [id number] FDA Start: 01-26-2024 Mental Status Date Assessment Result Facility 05-29-2025 Cognitive function Level Of Cons ciousness Awake;Alert;Appropriate [facility] Work Phone: Clinical Notes 06-10-2021 to 03-11-2024 Flores Gore PTA - 03/11/2024 10:45 AM Flores Lund PTA - 03/09/2024 10:45 AM Flores Lund PTA - 03/07/2024 10:45 AM Nadege Chua - 03/04/2024 10:45 AM EDTNarratives Note Date & Type Note Facility 03-11-2024 History of Presen t illness Narrative [facility] DAILY TREATMENT NOTE Today's [...] Arnav Notes visit 11: 10:45-11:28 Therapeutic Exercise (23749) Intervention SciFit Bike L4 x 6 mins [...] up and over 6 Intervention Possibly add bahamian split squats/ stool scoots/ standing hamstring curls [...] PT visits Flores Gore PTA STATE LICENSE, [id number] documented in this encounter [facility] 03-09-2024 History of Presen t illness Narrative [facility] DAILY TREATMENT NOTE Today's [...] Arnav Notes Visit #10: 10:36-11:26 Therapeutic Exercise (79881) Intervention SciFit Bike L4 x 6 mins [...] up and over 6 Intervention Possibly add bahamian split squats/ stool scoots/ standing hamstring curls [...] Flexion ROM Flores Gore PTA STATE LICENSE, [id number] documented in this encounter [facility] 03-07-2024 History of Presen t illness Narrative [facility] DAILY TREATMENT NOTE Today's [...] Arnav Notes Visit #8: 10:45-11:30 Therapeutic Exercise (72534) Intervention SciFit Bike L4 x 6 mins [...] up and over 6 Intervention Possibly add bahamian split squats/ stool scoots/ standing hamstring curls [...] on flexion Flores Gore PTA STATE LICENSE, [id number] documented in this encounter [facility] 03-04-2024 History of Presen t illness Narrative [facility] DAILY TREATMENT NOTE Today's [...] Arnav Notes Visit #8: 10:45-11:40 Therapeutic Exercise (38813) Intervention SciFit Bike L4 x 6 mins [...] up and over 6 Intervention Possibly add bahamian split squats/ stool scoots/ standing hamstring curls [...] SHIRA Celis No licensure found in state: [place] Treatment was directed and supervised by the co-signing therapist who was directly present for the entire session. Gabriel Tovar PTA State License [id number] documented in this encounter [facility] 03-02-2024 History of Presen t illness Narrative [facility] DAILY TREATMENT NOTE Today's [...] Notes Visit #7: 10:46 11:24 Therapeutic Exercise (93920) Intervention SciFit Bike L4 x 6 mins [...] taps w/6 step x10 Intervention Possibly add bahamian split squats/ stool scoots/ standing hamstring curls [...] with focus on R knee flexion ROM. Batool Kamara, SPT No licensure found in state: [place] Treatment was directed and supervised by the co-signing therapist who was directly present for the entire session. Dajuan Arroyo PT State License, [id number] documented in this encounter [facility] 02-29-2024 History of Presen t illness Narrative [facility] DAILY TREATMENT NOTE Today's [...] Notes Visit: 1050 - 11:40 Therapeutic Exercise (89207) Intervention SciFit Bike L4 x 6 mins [...] and ROM Gabriel Tovar PTA STATE LICENSE, [id number] documented in this encounter [facility] 02-26-2024 History of Presen t illness Narrative [facility] DAILY TREATMENT NOTE Today's [...] Precautions/Contraindications Supervising PT: Arnav Notes Visit: 5 5901-4194 Therapeutic Exercise (12118) Intervention SciFit Bike L4 x 6 mins [...] as tolerated Sherlyn Villavicencio PTA STATE LICENSE, [id number] documented in this encounter [facility] 02-24-2024 History of Presen t illness Narrative [facility] DAILY TREATMENT NOTE Today's [...] Arnav Notes Visit: 4 10:45-11:11:43 Therapeutic Exercise (00526) Intervention SciFit Bike L4 x 5 mins [...] SHIRA Celis No licensure found in state: [place] Treatment was directed and supervised by the co-signing therapist who was directly present for the entire session. Gabriel Tovar PTA State License [id number] documented in this encounter [facility] 02-22-2024 History of Presen t illness Narrative [facility] DAILY TREATMENT NOTE Today's [...] Visit: 3 10:40 - 11:15 Therapeutic Exercise (40301) Intervention SciFit Bike L4 x 5 mins [...] focus on R knee strengthening and ROM. Batool Kamara, SPT No licensure found in state[place] Treatment was directed and supervised by the co-signing therapist who was directly present for the entire session. Dajuan Arroyo PT State License, [id number] documented in this encounter [facility] 02-19-2024 History of Presen t illness Narrative [facility] DAILY TREATMENT NOTE Today's [...] Visit: 2 10:48 - 11:46 Therapeutic Exercise (99512) Intervention SciFit Bike L4 x 5 mins [...] strengthening progression Gabriel Tovar PTA STATE LICENSE, [id number] documented in this encounter [facility] 02-17-2024 History of Presen t illness Narrative [facility] DAILY TREATMENT NOTE Today's [...] Arnav Notes Visit: 1 10:50- Therapeutic Exercise (54066) Intervention HEP was reviewed w/ patient and [...] SHIRA Celis [place] licensure found in state: [place] Treatment was directed and supervised by the co-signing therapist who was directly present for the entire session. Gabriel Tovar PTA [id number] documented in this encounter [facility] 02-15-2024 History of Presen t illness Narrative [facility] Evaluation Today's Date 02/15/2024 [...] the ability to ambulate better. Social Support: Mormonism, social, or cultural considerations to be made aware of before starting treatment: No Home Environment Current Home Environment: Setup: single story house Entry: steps with railing Red Flags: None Comments: Barriers to Care: None Fall risk screening Fallen 2 or more times in the last 12 months: No Injured as a result of a fall in the last 12 months: No Mormonism, social, or cultural considerations to be made [...] Notes Eval: 10:51 - 11:17 Therapeutic Exercise (15432) Intervention HEP was reviewed w/ patient and [...] with HEP in 2 weeks. CPT Code 12363 Low 53393 Moderate 16296 High History 0 1-2 3+ Comorbidities: asthma, [...] week Duration: 6 weeks Interventions: Therapeutic Exercise (11064), Neuromuscular Re-Education (24425), Manual Therapy (18364), Therapeutic/ Functional Activities (27003), Gait Training (23004), Aquatic Therapy (73161), Hot/Cold Pack (72348), Electrical Stimulation - Medicare, Unattended (G0283), Ultrasound (19765), and Vasopneumatic (59801) Rehab Potential: good Patient Education Provided Pt was educated on the benefits of therapy and importance of compliance with sessions and HEP for rehabilitation. Pt was also educated on treatment diagnosis, POC, and frequency/duration of treatment. Batool Kamara, SPT No licensure found in state: [place] Treatment was directed and supervised by the co-signing therapist who was directly present for the entire session. Dajuan Arroyo PT State License, [id number] documented in this encounter [facility] 02-12-2024 Patient's home Pr ogress note Pt reports she is doing well and ready for dc. Is using a SPC around the house. Sees this afternoon for followup and staple removal. documented in this encounter [id number] Telephone encounter Note* Telephone Encounter - Treva Obregon LPN - 02/08/2024 12:09 PM EDT Patient requested refill for pain medication. Surgery 01/26 right TKR, last fill 01/26. [id number] Miscellaneous Notes* Telephone Encounter - Treva Obregon LPN - 02/08/2024 12:09 PM EDT Patient requested refill for pain medication. Surgery 01/26 right TKR, last fill 01/26. documented in this [id number] History of Present illness Narrative* Yen Carlson [...] to call the office. documented in this [id number] History of Present illness Narrative* Yen Carlson LPN - 01/11/2024 2:11 PM EST Amber's nasal swab was positive for MSSA w her preop testing. She will start Doxycyline 100mg bid x 7days and Mupirocin 2% ointment to both nostrils bid x 7 days. I did speak w Amber. documented in this [id number] Patient's home Progress note* Actions Routine visit [...] no longer homebound documented in this encounter [id number] Patient's home Progress note* Actions Routine visit [...] no longer homebound documented in this encounter [id number] Evaluation + Plan note* Assessment & Plan Note - Blaine Silveira MD - 10/20/2023 1:56 PM ESTAssociated Problem(s): Severe aortic insufficiency Doing well from Tavr standpoint Should be low cardiac for surgery from coronary and Valve Would suggest a pre op Pulmonary consult just to be sure from her fibrosing mediastinitis history Also would continue asa through surgery [id number] History of Present illness Narrative* Blaine Silveira MD - 10/20/2023 1:56 PM EST Patient Name: iVckie Gonzalez [facility] MR #: [id number] General Cardiology Blaine Silveira MD, [facility] 10/20/23 Dear Nicol Ibanez MD, Vickie Gonzalez was seen in follow up for : Problem Coronary Artery Disease Involving [place] Coronary Artery of [place] Heart Without Angina Pectoris CABG 2000 Cath 2010 all grafts open 12/2021- Pat Dye/Missy Severe Aortic Insufficiency EVOLUT 34mm via R TELEPHONE CLEANER. 01/21/222022 2 D cardiac echocardiogram looked good [...] 1 (one) tablet by mouth daily . ZAUKXFA-BHLDMWJLT-KJVF ORAL Take 1 tablet by mouth daily [...] No medications on file documented in this [id number] Miscellaneous Notes* Assessment & Plan Note - Blaine Silveira MD - 10/20/2023 1:56 PM ESTAssociated Problem(s): Severe aortic insufficiency Doing well from Tavr standpoint Should be low cardiac for surgery from coronary and Valve Would suggest a pre op Pulmonary consult just to be sure from her fibrosing mediastinitis history Also would continue asa through surgery documented in this [id number] Progress note Author Lindsey Walsh [facility] July 16, 2023 12:13pm Note Date/Time July 16, 2023 12 :05pm [facility] [address] [place] [address] Progress Note - Wound Care 07/16/23 1200 MR#: [id number] Acct: [id number] Name: VICKIE GONZALEZ Rep #:[id number] 09 : [...] locally at the wound care center at [facility]. She states following a few days [...] Recorded Date Recorded By Document 07/16/23 09:42 KW [id number] 07/16/23 09:51 07/16/23 09:42 - Today's Visit Information Type of service Follow-up Visit (Physician/INDUSTRIAL SALES ENGINEER ) Arrival Mode Ambulatory Patient Identification Verified [...] Recorded Date Recorded By Document 07/16/23 09:42 [id number] 07/16/23 09:51 07/16/23 09:42 Wound Center Nurse [...] Cleansing No -Anesthetic Used 5% Lidocaine Gel WC - Nurse 3 - General Ulcer D/C NN Start: 07/16/23 09:42 Freq: Status: Active Protocol: Activity Type Activity Date Activity User E-sign Co-sign Detail Recorded Client Recorded Date Recorded By Document 07/16/23 10:05 ARNOLDO [id number] 07/16/23 10:06 KW 07/16/23 10:05 Wound Care Center Nurse 3 [...] No signs of infection. Pain: May take hacs-guo-jpnlpcl Tylenol as needed for discomfort. Host factors: Basal cell carcinoma left lower extremity, edema. ? At this time with all wounds healed she is discharged from the wound care center. She has follow-up appointment with alpine guide next week. I answered all the patient's questions.? To return to the wound healing center as needed or call sooner if the patient has any questions or concerns. 07/16/23 1213 <Electronically signed by Lindsey Walsh DPM> Cosigner Signature (if applicable): CC: ~ Signed [facility] Work Phone: [phone]) 747-746207-27-2023 Progress note Author Lindsey Walsh [facility] June 25, 2023 11:36am Note Date/Time June 25, 2023 10:1 2am [facility] [address] [place] [address] Progress Note - Wound Care 06/25/23 1012 MR#: [id number] Acct: [id number] Name: VICKIE GONZALEZ Rep #:[id number] 07 : [...] locally at the wound care center at [facility]. She states following a few days [...] Date Recorded By Document 06/04/23 10:15 AK [id number] 06/04/23 10:17 AK Document 06/18/23 10:58 [id number] 06/18/23 11:01 Document 06/25/23 09:48 DL [id number] 06/25/23 09:56 DL 06/04/23 06/18/23 06/25/23 10:15 10:58 09:48 - Today's Visit Information Type of service Follow-up Visit Follow-up Visit Follow-up Visit (Physician/INDUSTRIAL SALES ENGINEER (Physician/INDUSTRIAL SALES ENGINEER (Physician/INDUSTRIAL SALES ENGINEER ) ) ) Arrival Mode Ambulatory Ambulatory [...] Date Recorded By Document 06/04/23 10:15 AK [id number] 06/04/23 10:17 FL Document 06/18/23 10:58 [id number] 06/18/23 11:01 Document 06/25/23 09:48 DL [id number] 06/25/23 09:56 DL 06/04/23 06/18/23 06/25/23 10:15 [...] None Present (0 %) %) -Granulation Quality [place] N/A -Slough/Fibrin Yes No -Necrosis Amt Medium [...] Recorded Date Recorded By Document 06/04/23 12:01 [id number] 06/04/23 12:02 PL Document 06/18/23 12:17 [id number] 06/18/23 12:19 PL 06/04/23 06/18/23 12:01 12:17 [...] -Expiration Date 02/29/28 03/30/28 -Product Lot Number [id number] -Percent Used 100 100 -Bleeding [...] Recorded Date Recorded By Document 06/04/23 10:49 [id number] 06/04/23 10:49 Document 06/18/23 10:58 [id number] 06/18/23 11:01 06/04/23 06/18/23 10:49 10:58 Wound [...] No signs of infection. Pain: May take nbbo-sgk-mglcato Tylenol as needed for discomfort. Host factors: Basal cell carcinoma left lower extremity, edema. ? I answered all the patient's questions.? To return to the wound healing center in 3 weeks or call sooner if the patient has any questions or concerns. 06/25/23 1136 <Electronically signed by Lindsey Walsh DPM> Cosigner Signature (if applicable): CC: ~ Signed [facility] Work Phone: [phone]) 535-615807-20-2023 Progress note Author Lindsey Walsh [facility] June 18, 2023 5:46pm Note Date/Time June 18, 2023 9:48 am [facility] [address] [place] [address] Progress Note - Wound Care 06/18/23 0947 MR#: [id number] Acct: [id number] Name: VICKIE GONZALEZ Rep #:[id number] 07 : 1955 67 From: [...] locally at the wound care center at [facility]. She states following a few days [...] Start: 06/04/23 10:15 Freq: Status: Active Protocol: .LOWEXT Activity Type Activity Date Activity User E-sign Co-sign Detail Recorded Client Recorded Date Recorded By Document 06/04/23 10:15 DONNIE [id number] 06/04/23 10:17 DONNIE 06/04/23 10:15 - Today's Visit Information Type of service Follow-up Visit (Physician/INDUSTRIAL SALES ENGINEER ) Arrival Mode Ambulatory Patient Identification Verified [...] Date Recorded By Document 06/04/23 10:15 DONNIE [id number] 06/04/23 10:17 DONNIE 06/04/23 10:15 Wound Center Nurse 1 #1 [...] Attached -Granulation Amt Medium (34-66%) -Granulation Quality [place] -Slough/Fibrin Yes -Necrosis Amt Medium (34-66%) -Necrotic [...] Recorded Date Recorded By Document 06/04/23 12:01 NAYELI [id number] 06/04/23 12:02 PL 06/04/23 12:01 Wound Center [...] Disc -Expiration Date 02/29/28 -Product Lot Number [id number] -Percent Used 100 -Bleeding Controlled with [...] Recorded Date Recorded By Document 06/04/23 10:49 [id number] 06/04/23 10:49 ARNOLDO 06/04/23 10:49 Wound Care [...] No signs of infection. Pain: May take xeie-cqn-xbxsray Tylenol as needed for discomfort. Host factors: Basal cell carcinoma left lower extremity, edema. ? I answered all the patient's questions.? To return to the wound healing center in 1 week or call sooner if the patient has any questions or concerns. 06/18/23 1746 <Electronically signed by Lindsey Walsh DPM> Cosigner Signature (if applicable): CC: ~ Signed [facility] Work Phone: 1(305) 571-226307-06-2023 Progress note Author Lindsey Walsh [facility] June 04, 2023 1:00pm Note Date/Time June 04, 2023 1:00p [facility] [address] [place] [address] Progress Note - Wound Care 06/04/23 1255 MR#: [id number] Acct: [id number] Name: VICKIE GONZALEZ Rep #:[id number] 13 : [...] locally at the wound care center at [facility]. She states following a few days [...] Start: 06/04/23 10:15 Freq: Status: Active Protocol: SAKSHI.LOWEXT Activity Type Activity Date Activity User E-sign Co-sign Detail Recorded Client Recorded Date Recorded By Document 06/04/23 10:15 FL [id number] 06/04/23 10:17 DONNIE 06/04/23 10:15 - Today's Visit Information Type of service Follow-up Visit (Physician/INDUSTRIAL SALES ENGINEER ) Arrival Mode Ambulatory Patient Identification Verified [...] Date Recorded By Document 06/04/23 10:15 DONNIE [id number] 06/04/23 10:17 DONNIE 06/04/23 10:15 Wound Center Nurse 1 #1 [...] Attached -Granulation Amt Medium (34-66%) -Granulation Quality [place] -Slough/Fibrin Yes -Necrosis Amt Medium (34-66%) -Necrotic Tissue Type Adherent Slough -Structure Exposed N/A -Texture (Nighat-wound Skin Appearance) No Abnormality, Assessed -Moisture ([place]ighat-wound Skin Appearance) No Abnormality, Assessed -Color ([place]-wound Skin Appearance) No Abnormality, Assessed -Temperature ([place]ig[place]-wound [...] Date Recorded By Document 06/04/23 12:01 PL [id number] 06/04/23 12:02 PL 06/04/23 12:01 Wound Center [...] Disc -Expiration Date 02/29/28 -Product Lot Number [id number] -Percent Used 100 -Bleeding Controlled with [...] Recorded Date Recorded By Document 06/04/23 10:49 [id number] 06/04/23 10:49 KW 06/04/23 10:49 Wound Care Center Nurse 3 [...] No signs of infection. Pain: May take bzva-kkv-gtatyux Tylenol as needed for discomfort. Host factors: Basal cell carcinoma left lower extremity, edema. ? I answered all the patient's questions.? To return to the wound healing center in 2 weeks or call sooner if the patient has any questions or concerns. 06/04/23 1300 <Electronically signed by Lindsey Walsh DPM> Cosigner Signature (if applicable): CC: ~ Signed [facility] Work Phone: [phone]) 871-773506-29-2023 Progress note Author Lindsey Walsh [facility] May 28, 2023 10:20am Note Date/Time May 28, 2023 9:53 am [facility] [address] [place] [address] Progress Note - Wound Care 05/28/23 0952 MR#: [id number] Acct: [id number] Name: VICKIE GONZALEZ Rep #:[id number] 08 : 1955 67 From: Lindsey sykes DPM PCP: Dr. Nicol Ibaenz MD Status:REG RCR Location: History of Present [...] locally at the wound care center at [facility]. She states following a few days [...] Date Recorded By Document 04/30/23 09:24 JANIE [id number] 04/30/23 09:40 JF Document 05/07/23 09:26 AK [id number] 05/07/23 09:28 AK Document 05/14/23 09:34 KW [id number] 05/14/23 09:46 KW Document 05/21/23 11:54 AK [id number] 05/21/23 11:56 AK 04/30/23 05/07/23 05/14/23 09:24 09:26 09:34 WC - Today's Visit Information Type of service Follow-up Visit Follow-up Visit Follow-up Visit (Physician/INDUSTRIAL SALES ENGINEER (Physician/INDUSTRIAL SALES ENGINEER (Physician/INDUSTRIAL SALES ENGINEER ) ) ) Arrival Mode Ambulatory Ambulatory [...] Visit Information Type of service Follow-up Visit (Physician/INDUSTRIAL SALES ENGINEER ) Arrival Mode Ambulatory Patient Identification Verified [...] Recorded Date Recorded By Document 04/30/23 09:24 [id number] 04/30/23 09:40 JF Document 05/07/23 09:26 AK [id number] 05/07/23 09:28 AK Document 05/14/23 09:34 KW [id number] 05/14/23 09:46 KW Document 05/21/23 11:54 AK [id number] 05/21/23 11:56 AK 04/30/23 05/07/23 05/14/23 09:24 [...] Medium (34-66%) Medium (34-66%) -Granulation Quality [place] -Slough/Fibrin Yes Yes -Necrosis Amt Small (1-33%) [...] Attached -Granulation Amt Medium (34-66%) -Granulation Quality [place] -Slough/Fibrin Yes -Necrosis Amt Medium (34-66%) -Necrotic [...] Date Recorded By Document 04/30/23 12:15 PL [id number] 04/30/23 12:17 PL Document 05/07/23 12:36 PL [id number] 05/07/23 12:38 PL Document 05/14/23 12:06 PL [id number] 05/14/23 12:08 PL Edit Result 05/14/23 12:06 PL (1) [id number] 05/15/23 12:47 PL Document 05/21/23 12:16 PL [id number] 05/21/23 12:17 PL (1) #1 L medial [...] Date 01/29/28 01/29/28 02/29/28 -Product Lot Number [id number] 002 -Percent Used 100 100 [...] Disc -Expiration Date 02/29/28 -Product Lot Number [id number] -Percent Used 100 -Bleeding Controlled with [...] Date Recorded By Document 04/30/23 09:59 AK [id number] 04/30/23 10:00 AK Undo 04/30/23 09:59 AK Adjusting Time [id number] 04/30/23 10:01 AK Document 05/07/23 10:09 AK [id number] 05/07/23 10:10 AK Document 05/14/23 12:06 PL [id number] 05/14/23 12:08 PL Document 05/21/23 10:33 [id number] 05/21/23 10:44 KW 05/07/23 05/14/23 05/21/23 10:09 [...] No signs of infection. Pain: May take ueuq-vey-stzbbfm Tylenol as needed for discomfort. Host factors: Basal cell carcinoma left lower extremity, edema. ? I answered all the patient's questions.? To return to the wound healing center in 1 week or call sooner if the patient has any questions or concerns. 05/28/23 1020 <Electronically signed by Lindsey Walsh DPM> Cosigner Signature (if applicable): CC: ~ Signed [facility] Work Phone: 1(192) 412-755806-22-2023 Progress note Author Lindsey Walsh [facility] May 21, 2023 12:31pm Note Date/Time May 21, 2023 9:57 am [facility] [address] [place] [address] Progress Note - Wound Care 05/21/23 0957 MR#: [id number] Acct: [id number] Name: VICKIE GONZALEZ Rep #:[id number] 07 : [...] locally at the wound care center at [facility]. She states following a few days [...] Date Recorded By Document 04/30/23 09:24 JF [id number] 04/30/23 09:40 JF Document 05/07/23 09:26 AK [id number] 05/07/23 09:28 AK Document 05/14/23 09:34 KW [id number] 05/14/23 09:46 KW 04/30/23 05/07/23 05/14/23 09:24 09:26 09:34 - Today's Visit Information Type of service Follow-up Visit Follow-up Visit Follow-up Visit (Physician/INDUSTRIAL SALES ENGINEER (Physician/INDUSTRIAL SALES ENGINEER (Physician/INDUSTRIAL SALES ENGINEER ) ) ) Arrival Mode Ambulatory Ambulatory [...] Date Recorded By Document 04/30/23 09:24 JF [id number] 04/30/23 09:40 Document 05/07/23 09:26 AK [id number] 05/07/23 09:28 AK Document 05/14/23 09:34 KW [id number] 05/14/23 09:46 KW 04/30/23 05/07/23 05/14/23 09:24 [...] Medium (34-66%) Medium (34-66%) -Granulation Quality [place] -Slough/Fibrin Yes Yes -Necrosis Amt Small (1-33%) [...] Date Recorded By Document 04/30/23 12:15 PL [id number] 04/30/23 12:17 PL Document 05/07/23 12:36 PL [id number] 05/07/23 12:38 PL Document 05/14/23 12:06 PL [id number] 05/14/23 12:08 PL Edit Result 05/14/23 12:06 PL (1) [id number] 05/15/23 12:47 PL (1) #1 L medial [...] Date 01/29/28 01/29/28 02/29/28 -Product Lot Number [id number] 002 -Percent Used 100 100 [...] Date Recorded By Document 04/30/23 09:59 AK [id number] 04/30/23 10:00 AK Undo 04/30/23 09:59 AK Adjusting Time [id number] 04/30/23 10:01 AK Document 05/07/23 10:09 AK [id number] 05/07/23 10:10 AK Document 05/14/23 12:06 PL [id number] 05/14/23 12:08 PL 05/07/23 05/14/23 10:09 12:06 [...] No signs of infection. Pain: May take tdxv-rrv-dzfrfhl Tylenol as needed for discomfort. Host factors: Basal cell carcinoma left lower extremity, edema. ? I answered all the patient's questions.? To return to the wound healing center in 1 week or call sooner if the patient has any questions or concerns. 05/21/23 1231 <Electronically signed by Lindsey Walsh DPM> Cosigner Signature (if applicable): CC: ~ Signed [facility] Work Phone: [phone]) 856-911106-15-2023 Progress note Author Lindsey Walsh [facility] May 14, 2023 10:27am Note Date/Time May 14, 2023 9:43 am [facility] [address] [place] [address] Progress Note - Wound Care 05/14/23 0942 MR#: [id number] Acct: [id number] Name: VICKIE GONZALEZ Meseret Rep #:[id number] 07 : 1955 67 From: [...] locally at the wound care center at [facility]. She states following a few days [...] Start: 04/30/23 09:24 Freq: Status: Active Protocol: SAKSHI.TYE Activity Type Activity Date Activity User E-sign Co-sign Detail Recorded Client Recorded Date Recorded By Document 04/30/23 09:24 JANIE [id number] 04/30/23 09:40 Document 05/07/23 09:26 AK [id number] 05/07/23 09:28 AK 04/30/23 05/07/23 09:24 09:26 - Today's Visit Information Type of service Follow-up Visit Follow-up Visit (Physician/INDUSTRIAL SALES ENGINEER (Physician/INDUSTRIAL SALES ENGINEER ) ) Arrival Mode Ambulatory Ambulatory Patient [...] Recorded Date Recorded By Document 04/30/23 09:24 [id number] 04/30/23 09:40 Document 05/07/23 09:26 AK [id number] 05/07/23 09:28 AK 04/30/23 05/07/23 09:24 09:26 [...] Medium (34-66%) Medium (34-66%) -Granulation Quality [place] -Slough/Fibrin Yes Yes -Necrosis Amt Small (1-33%) [...] 37.6 37 Left Ankle (cm) 21.1 21 - Nurse 2 - General Ulcer CM Notes Start: 04/30/23 09:24 Freq: Status: Active Protocol: Activity Type Activity Date Activity User E-sign Co-sign Detail Recorded Client Recorded Date Recorded By Document 04/30/23 12:15 PL [id number] 04/30/23 12:17 PL Document 05/07/23 12:36 PL [id number] 05/07/23 12:38 PL 04/30/23 05/07/23 12:15 12:36 [...] -Expiration Date 01/29/28 01/29/28 -Product Lot Number [id number] -Percent Used 100 100 -Bleeding [...] Date Recorded By Document 04/30/23 09:59 AK [id number] 04/30/23 10:00 AK Undo 04/30/23 09:59 AK Adjusting Time [id number] 04/30/23 10:01 AK Document 05/07/23 10:09 AK [id number] 05/07/23 10:10 AK 05/07/23 10:09 Wound Care [...] No signs of infection. Pain: May take ubvy-ngc-vypytdj Tylenol as needed for discomfort. Host factors: Basal cell carcinoma left lower extremity, edema. ? I answered all the patient's questions.? To return to the wound healing center in 1 week or call sooner if the patient has any questions or concerns. 05/14/23 1027 <Electronically signed by Lindsey Walsh DPM> Cosigner Signature (if applicable): CC: ~ Signed [facility] Work Phone: 1(208) 556-412806-08-2023 Progress note Author Lindsey Walsh [facility] May 07, 2023 9:42am Note Date/Time May 07, 2023 9:14a m [facility] [address] [place] [id number] Progress Note - Wound Care 05/07/2313 MR#: [id number] Acct: [id number] Name: VICKIE GONZALEZ Rep #:[id number] : 1955 67 From: [...] locally at the wound care center at [facility]. She states following a few days [...] Date Recorded By Document 04/30/23 09:24 JANIE [id number] 04/30/23 09:40 JANIE 04/30/23 09:24 - Today's Visit Information Type of service Follow-up Visit (Physician/INDUSTRIAL SALES ENGINEER ) Arrival Mode Ambulatory Patient Identification Verified [...] Date Recorded By Document 04/30/23 09:24 JF [id number] 04/30/23 09:40 JANIE 04/30/23 09:24 Wound Center Nurse 1 #1 [...] Date Recorded By Document 04/30/23 12:15 PL [id number] 04/30/23 12:17 PL 04/30/23 12:15 Wound Center [...] Disc -Expiration Date 01/29/28 -Product Lot Number [id number] -Percent Used 100 -Bleeding Controlled with [...] Date Recorded By Document 04/30/23 09:59 AK [id number] 04/30/23 10:00 AK Undo 04/30/23 09:59 AK Adjusting Time [id number] 04/30/23 10:01 AK Assessment/Plan Assessment/Plan (1) Non-pressure [...] No signs of infection. Pain: May take cuku-tgw-rgtkcru Tylenol as needed for discomfort. Host factors: Basal cell carcinoma left lower extremity, edema. ? I answered all the patient's questions.? To return to the wound healing center in 1 week or call sooner if the patient has any questions or concerns. 05/07/2342 <Electronically signed by Lindsey Walsh DPM> Cosigner Signature (if applicable): CC: ~ Signed [facility] Work Phone: 1(732) 522-676006-01-2023 Progress note Author Lindsey Walsh [facility] April 30, 2023 12:52pm Note Date/Time April 30, 2023 9:50a [facility] [address] [place] [address] Progress Note - Wound Care 04/30/23 0946 MR#: [id number] Acct: [id number] Name: VICKIE GONZALEZ Rep #:[id number] : 1955 67 From: Lindsey sykes DPM PCP: Dr. Nicol Ibanez MD Status:[facility] Location: History of Present Illness Date of [...] locally at the wound care center at [facility]. She states following a few days [...] Date Recorded By Document 04/30/23 09:24 JANIE [id number] 04/30/23 09:40 JANIE 04/30/23 09:24 - Today's Visit Information Type of service Follow-up Visit (Physician/INDUSTRIAL SALES ENGINEER ) Arrival Mode Ambulatory Patient Identification Verified [...] Recorded Date Recorded By Document 04/30/23 09:24 [id number] 04/30/23 09:40 JANIE 04/30/23 09:24 Wound Center Nurse 1 #1 [...] -Moisture (Nighat-wound Skin Appearance) Assessed,Dry/ Scaly -Color (Nihgat-wound Skin Appearance) Assessed -Temperature (Nighat-wound Skin No [...] No signs of infection. Pain: May take muqg-smp-taatbqb Tylenol as needed for discomfort. Host factors: Basal cell carcinoma left lower extremity, edema. ? I answered all the patient's questions.? To return to the wound healing center in 1 week or call sooner if the patient has any questions or concerns. 04/30/23 1252 <Electronically signed by Lindsey Walsh DPM> Cosigner Signature (if applicable): CC: ~ Signed [facility] Work Phone: 1(597) 475-391105-25-2023 Progress note Author Lindsey Walsh [facility] April 23, 2023 10:15am Note Date/Time April 23, 2023 9:34a m [facility] [address] [place] [address] Progress Note - Wound Care 04/23/23 0933 MR#: [id number] Acct: [id number] Name: PARAGVICKIE CLEMONS Meseret Rep #:[id number] : 1955 67 From: [...] locally at the wound care center at [facility]. She states following a few days [...] Recorded Date Recorded By Document 04/16/23 08:58 AK [id number] 04/16/23 09:14 AK Document 04/23/23 09:23 JANIE [id number] 04/23/23 09:27 JF 04/16/23 04/23/23 08:58 09:23 - Today's Visit Information Type of service Initial Visit Follow-up Visit (Physician/INDUSTRIAL SALES ENGINEER ) Arrival Mode Ambulatory Ambulatory Patient Identification [...] Recorded Date Recorded By Document 04/16/23 08:58 AK [id number] 04/16/23 09:14 AK Document 04/23/23 09:23 JANIE [id number] 04/23/23 09:27 JF 04/16/23 04/23/23 08:58 09:23 Wound Center Nurse [...] Amt Small (1-33%) Small (1-33%) -Granulation Quality [place] Pale -Slough/Fibrin Yes Yes -Necrosis Amt Large [...] 38 37 Left Ankle (cm) 24 22 WC - Nurse 2 - General Ulcer CM Notes Start: 04/16/23 08:55 Freq: Status: Active Protocol: Activity Type Activity Date Activity User E-sign Co-sign Detail Recorded Client Recorded Date Recorded By Document 04/16/23 10:10 PL [id number] 04/16/23 10:11 PL 04/16/23 10:10 Wound Center [...] Date Recorded By Document 04/16/23 10:02 DL [id number] 04/16/23 10:04 DL 04/16/23 10:02 Wound Care [...] No signs of infection. Pain: May take qncp-ety-zupvsnk Tylenol as needed for discomfort. Host factors: Basal cell carcinoma left lower extremity, edema. I answered all the patient's questions. To return to the wound healing center in 1 week or call sooner if the patient has any questions or concerns. 04/23/23 1015 <Electronically signed by Lindsey Walsh DPM> Cosigner Signature (if applicable): CC: ~ Signed [facility] Work Phone: 1(641) 539-191805-18-2023 History and physical note Author Lindsey [facility] April 16, 2023 12:36pm Note Date/Time April 16, 2023 9:19a [facility] [address] [place] [address] H&P Exam - Wound Care 04/16/23 0919 MR#: [id number] Acct: [id number] Name: PARAGVICKIE CLEMONS Meseret Rep #:[id number] : 1955 67 From: [...] locally at the wound care center at [facility]. She states following a few days after the procedure she was on the treadmill and did have some swelling of the lower extremity site to which she feels may have worsened the wound. States she will continue to follow with dermatology for continued monitoring/follow-up. She currently denies any N/V/F/chills. Denies further complaints. [facility] Medical History (Updated 04/16/23 @ 12:[address] Lindsey Walsh, DPM) Allergic rhinitis Aortic valve insufficiency Asthma [...] Start: 04/16/23 08:55 Freq: Status: Active Protocol: SAKSHI.LOWEXT Activity Type Activity Date Activity User E-sign Co-sign Detail Recorded Client Recorded Date Recorded By Document 04/16/23 08:58 FL [id number] 04/16/23 09:14 DONNIE 04/16/23 08:58 - Today's Visit Information Type of service [...] Recorded Date Recorded By Document 04/16/23 08:58 FL [id number] 04/16/23 09:14 FL 04/16/23 08:58 Wound Center Nurse 1 #1 [...] Attached -Granulation Amt Small (1-33%) -Granulation Quality [place] -Slough/Fibrin Yes -Necrosis Amt Large (67-100%) -Necrotic [...] No signs of infection. Pain: May take wwpw-tze-yhihkii Tylenol as needed for discomfort. Host factors: Basal cell carcinoma left lower extremity, edema. I answered all the patient's questions. To return to the wound healing center in 1 week or call sooner if the patient has any questions or concerns. 04/16/23 1236 <Electronically signed by Lindsey Walsh DPM> Cosigner Signature (if applicable): CC: ~ Signed [facility] Work Phone: 1(184) 927-576702-22-2023 History of Present illness Narrative* Angelica Randall, INDUSTRIAL SALES ENGINEER - 01/21/2023 2:30 PM EST [facility] 1 year TAVR follow up Patient Name: Vickie Gonzalez Admit Date: MR #: [id number] : 1955 Physicians: Nicol Ibanez MD (Family) [...] es, she will be discharged from the [facility]. She will continue to follow with PCP and primary bronc breaker. Hypertension, hypertensive today in the office but home readings are significantly lower ranging between 120-140 systolic. Have asked her to track BP three times a week over the next 2 weeks and notify [facility] if systolic greater than 150 consistently. [...] TR and RVSP 46mmHg. Last cardiac catheterization [id number] showed patent DYE and MISSY with 100% [...] Valve Replacement; Surgeon: Lindsey Plummer MD; Location: [facility] OR; Service: Cardiovascular CARDIAC CATHETERIZATION N/A 01/21/2022 Procedure: Angiogram - Aortic Root; Surgeon: Lindsey Plummer MD; Location: [facility]; Service: Cardiovascular CARDIAC CATHETERIZATION N/A 01/21/2022 Procedure: Temporary Pacemaker; Surgeon: Lindsey Plummer MD; Location: [facility]; Service: Cardiovascular CARDIAC CATHETERIZATION N/A 01/21/2022 Procedure: Valvuloplasty - Aortic Valve; Surgeon: Lindsey Plummer MD; Location: [facility]; Service: Cardiovascular HC LEFT HEART CATH N/A 01/15/2022 Procedure: LEFT HEART CATH; Surgeon: Silvio Mckeon MD; Location: [facility]; Service: Cardiovascular TAVR FEMORAL APPROACH N/A 01/21/2022 Procedure: TRANSCATHETER AORTIC VALVE REPLACEMENT FEMORAL APPROACH; Surgeon: Meir Arthur MD; Location: [facility]; Service: Cardiothoracic TOTAL KNEE ARTHROPLASTY [...] by mouth daily . Yes Historical Provider, EYJSYOT-GXTJTXLXR-RSNC ORAL Take 1 tablet by mouth daily [...] Component Value Date HGBA1C 6.1 (H) 01/09/2022 @SOTOJLB26@ Echocardiogram complete Result Date: 01/21/2023 Patient Info Name: VICKIE GONZALEZ Age: 67 years : 1955 Gender: Female Ht: 167 cm Wt: 105 kg BSA: 2.26 m2 HR: 1 bpm BP: 157 / 89 mmHg Technical Quality: Fair Exam Date: 01/21/2023 9:06 AM Patient Status: Outpatient Flame Hardening Machine Setter: Shirin Rabago, MILLER, RDCS (PE, AE) Exam Type: ECHOCARDIOGRAM COMPLETE Study Info Indications - Valve disease/murmur Attending Physician: ANGELICA RANDALL Referring Physician: [id number]; [id number] BMI: 37.73 kg/m2 Summary 1. Left ventricular [...] LVOT VTI/AV VTI Ratio 0.4 LVOT Stroke Bpgokz03 ml LVOT Stroke Index 23.93 ml/m2 Pulmonic Valve Name Value Normal PV Regurgitation Doppler MN Peak End Diastolic Velocity 128 cm/s Mitral [...] on 01/21/2023 10:15 AM documented in this [id number] Note* Addendum Note - Terrie Oh RN - 01/19/2023 6:49 AM ESTAddended by: TERRIE [place] on: 01/19/2023 06:49 AM Modules accepted: Orders [id number] Miscellaneous Notes* Addendum Note - Terrie Oh RN - 01/19/2023 6:49 AM ESTAddended by: TERRIE [place] on: 01/19/2023 06:49 AM Modules accepted: Orders documented in this [id number] History of Present illness Narrative* Angelica Randall CNP - 02/19/2022 11:24 AM EDT [facility] 30 DAY TAVR FOLLOW UP Patient Name: Vickie Gonzalez Admit Date: MR #: [id number] : 1955 Physicians: Nicol Ibanez MD (Family) [...] Valve Replacement; Surgeon: Lindsey Plummer MD; Location: [facility]; Service: Cardiovascular CARDIAC CATHETERIZATION N/A 01/21/2022 Procedure: Angiogram - Aortic Root; Surgeon: Lindsey Plummer MD; Location: [facility]; Service: Cardiovascular CARDIAC CATHETERIZATION N/A 01/21/2022 Procedure: Temporary Pacemaker; Surgeon: Lindsey Plummer MD; Location: [facility]; Service: Cardiovascular CARDIAC CATHETERIZATION N/A 01/21/2022 Procedure: Valvuloplasty - Aortic Valve; Surgeon: Lindsey Plummer MD; Location: [facility]; Service: Cardiovascular HC LEFT HEART CATH N/A 01/15/2022 Procedure: LEFT HEART CATH; Surgeon: Silvio Mckeon MD; Location: [facility]; Service: Cardiovascular TAVR FEMORAL APPROACH N/A 01/21/2022 Procedure: TRANSCATHETER AORTIC VALVE REPLACEMENT FEMORAL APPROACH; Surgeon: Meir Arthur MD; Location: [facility]; Service: Cardiothoracic TOTAL KNEE ARTHROPLASTY [...] by mouth daily . Yes Historical Provider, IDBQDUE-BGUHTSKUC-DZRX ORAL Take 1 tablet by mouth daily [...] relief after 3 doses call 911 . 7 Blaine Silveira MD Current Medications: Review of [...] Component Value Date HGBA1C 6.1 (H) 01/09/2022 @OGZLRSZ91@ ECG 12 Lead Result Date: 01/22/2022 Sinus rhythm with 1st degree AV block Otherwise normal ECG Confirmed by REMY SEGURA MD ([id number]) on01/22/2022 9:10:34 AM ECG 12 Lead Result Date: 01/22/2022 Sinus rhythm with 1st degree AV block Nonspecific T wave abnormality Abnormal ECG When compared with ECG of 21-JAN-2022 12:50, (unconfirmed) No significant change was found Confirmed by REMY SEGURA MD ([id number]) on 01/22/2022 9:08:00 AM [...] Date: 01/21/2022 12:12 PM Patient Status: Outpatient Flame Hardening Machine Setter: Jolanta Klein RDCS, RVT Exam Type: ECHOCARDIOGRAM LIMITED WITH CONTRAST Study Info Indications - INTRAOP TAVR Attending Physician: LINDSEY PLUMMER Referring Physician: [id number]; [id number] BMI: 36.32 kg/m2 Summary 1. Limited two-dimensional, [...] Date: 01/21/2022 1:41 PM Patient Status: Outpatient Creative Writing Teacher:Muriel Medina RVT, RDMS Referring Physician: TONIA Jimenez; Attending Physician: LINDSEY PLUMMER Indications Z98.890 - Other specified postprocedural states - left femoral artery pseudoaneurysm, please perform compression therapy if able Procedure Description 78120 Duplex scan of lower extremity arteries or [...] Date: 01/22/2022 8:51 AM Patient Status: Inpatient Flame Hardening Machine Setter: Geraldo Carlos RDCS, ЮЛИЯ Exam Type: ECHOCARDIOGRAM COMPLETE Study Info Indications - Other Attending Physician: LINDSEY PLUMMER Referring Physician: TONIA Jimenez; [id number] BMI: 37.28 kg/m2 Summary 1. Leftventricular systolic [...] Name Value Normal MV Doppler MV Decel [place] 386 cm/s2 MV PHT 77 ms MV [...] on 01/22/2022 05:15 PM documented in this [id number] Note* Addendum Note - Terrie Oh RN - 02/13/2022 7:54 AM EDTAddended by: TERRIE [place] on: 02/13/2022 07:54 AM Modules accepted: Orders [id number] Miscellaneous Notes* Addendum Note - Terrie Oh RN - 02/13/2022 7:54 AM EDTAddended by: TERRIE OH on: 02/13/2022 07:54 AM Modules accepted: Orders documented in this [id number] History of Present illness Narrative* Angelica Randall CNP - 02/03/2022 10:00 AM EST Telephone Visit Via Phone Call [facility] SRINIV[facility] [address] [place] [phone] Telephone Visit [facility] 02/03/2022 Angelica Randall CNP Provider Location: office Patient Location Russian Language Professor: None Patient Location: Patient's Home Patient: Vickie [...] there are inherent diagnostic limitations compared to gcjq-ps-wycd evaluations. We elected toproceed with the telephone visit telemedicine consultation. ALLISON Gonzalez is a 66 y.o. female patient of Nicol Ibanez MD with a history of atherosclerotic coronary artery disease s/p CABG with DYE to LAD, MSISY [place] RCA [place] [address] Wadsworth, [...] Take 1 tablet by mouth daily . WUWAHQN-UXMOSKIRS-SUFZ ORAL Take 1 tablet by mouth daily [...] symptoms. She will follow up with the [facility] again at4 weeks post TAVR with TTE, labwork and ECG. I have spent 16 minutes with the patient reviewing the HPI and Plan of Care. documented in this [id number] Hospital course Narrative* Angelica Taylor Tonia, INDUSTRIAL SALES ENGINEER - 01/22/2022 10:54 AM EST DISCHARGE SUMMARY Patient: Vickie Gonzalez Date of : 1955 Site: [facility] Family Provider: Nicol Ibanez MD Admit [...] condition. She will follow up with the [facility] at 2 weeks and 4 weeks post [...] Take 1 tablet by mouth daily . OFDGWHR-QRRZAHUHP-AJII ORAL Take 1 tablet by mouth daily [...] Provider: Nicol Ibanez MD, Address: [address] / [place] [id number] Follow Up: Phase 2 Cardiac Rehabilitation-[place] Please call ext. [phone] to schedule. Call in 2 week(s) Nicol Ibanez MD [address] [phone] Follow up Please call to schedule follow up appt for 8 weeks from discharge Angelica Randall CNP [address] [place] [address] Follow up Office has scheduled appts at 2 weeks and 4 weeks from discharge Blaine Silveira MD [address] [place], [place] [id number] Follow up Please call to schedule follow up appt with Dr. Silveira Additional Information: Patient instructions, including activity, were given to the patient/family at discharge. Please seethe After Visit Summary in the electronic medical record for details. Time spent on discharge: > 30 minutes Completed by: Angelica Randall CNP on 01/22/22, 10:54 AM documented in this [id number] Consult note* Marsha Torres RN - 01/22/2022 8:58 AM EST AVS reviewed with patient/family. Discussed importance of medications, follow up appointments, and Cardiac Rehab with patient/family.Discussed with patient that their physician has referred him/her to our outpatient Cardiac Rehabilitation program. A Cardiac Rehabilitation nurse will contact patientor patient may call [phone] for additional information. [facility] Cardiac Rehabilitation brochure pro vided to patient/family.The Cardiac Rehabilitation Program will be provided the patient's referral information and pertinent patient details and history. Patient chosen location is . [id number] Consult note* Marsha Torres RN - 01/22/2022 8:58 AM EST AVS reviewed with patient/family. Discussed importance of medications, follow up appointments, and Cardiac Rehab with patient/family.Discussed with patient that their physician has referred him/her to our outpatient Cardiac Rehabilitation program. A Cardiac Rehabilitation nurse will contact patientor patient may call [phone] for additional information. [facility] Cardiac Rehabilitation brochure pro vided to patient/family.The Cardiac Rehabilitation Program will be provided the patient's referral information and pertinent patient details and history. Patient chosen location is . documented in this [id number] Evaluation + Plan note* Assessment & Plan Note - Angelica Randall CNP - 01/22/2022 8:12 AM EST Associated Problem(s): Severe aortic stenosis S/p TAVR with 34mm Evolut Pro Plus via RFA [id number] Miscellaneous Notes* Assessment & Plan Note - [...] (66 y.o.) Date of Service: 01/21/2022 CSN: [id number] Procedure(s): Transcatheter Aortic Valve Replacement TRANSCATHETER AORTIC VALVE REPLACEMENT FEMORAL APPROACH Pre-Operative Diagnoses: * severe aortic stenosis Post-Operative Diagnoses: * Same as Pre-Op Diagnosis Surgeon(s) and Role: Panel 1: * Lindsey Plummer MD - Primary * Stanley Grant MD Panel 2: * Meir Arthur MD - Primary * Robert Pugh MD Anesthesiologist: Chapito Mohan MD Student Nurse Cinetechnician: Deep Sawant Back Facer: Kishan Rascon RN; Alena Barker, TECHNOLOGIST; Gina Ann RN; Judd Hoover RN Mailer Apprentice: Zulma Bowen Scrub Person: ST Raven; Danette [...] Implant Name Type Inv. Item Serial No. Paper Guillotine Operator Lot No. LRB No. Used Action CLOSURE PERCLOSE PROSTYLE - [id number] Closure Device CLOSURE PERCLOSE PROSTYLE GARAY VAS N/A 2 Implanted VALVE 34MM EVOLUT PRO AORTIC - [id number] Percutaneous Valve VALVE 34MM EVOLUT PRO AORTIC [id number] [employer] N/A 1 Implanted Drain(s): * No LDAs found * Wound(s): * No LDAs found * Robert Pugh MD 01/21/2022 12:24 PM * Op Note - Robert Pugh MD - 01/21/2022 7:22 AM EST VICKIE GONZALEZ [facility] [id number] 1955 DATE 01/21/2022 OPERATIVE REPORT SURGEON ROBERT [...] condition. ROBERT PUGH MD D 01/21/2022 12:30 [id number] T 01/21/2022 12:47 WJF/MODL documented in this [id number] History of Present illness Narrative* Angelica Randall CNP - 01/22/2022 8:04 AM EST Patient Name: Vickie Gonzalez MR #: [id number] POD # 1 Subjective: No complaints Objective: [...] discuss with SH team documented in this [id number] Note* Quick Note - Gaby Evans RN - 01/22/2022 4:58 AM EST .. Patient oriented to room and call system: yes Goal and Plan of Care written on whiteboard: yes Dual RN skin assessment completed with: Kaley Barcenas How will patient get home at discharge: Family will take pt home [id number] Note* Brief Op Note - Robert Pugh MD - 01/21/2022 12:24 PM EST Brief Post Operative Note Patient Name: Vickie Gonzalez : 1955 (66 y.o.) Date of Service: 01/21/2022 CSN: [id number] Procedure(s): Transcatheter Aortic Valve Replacement TRANSCATHETER AORTIC VALVE REPLACEMENT FEMORAL APPROACH Pre-Operative Diagnoses: * severe aortic stenosis Post-Operative Diagnoses: * Same as Pre-Op Diagnosis Surgeon(s) and Role: Panel 1: * Lindsey Plummer MD - Primary * Stanley Grant MD Panel 2: * Meir Arthur MD - Primary * Robert Pugh MD Anesthesiologist: Chapito Mohan MD Student Nurse Cinetechnician: Deep Sawant Back Facer: Kishan Rascon RN; Alena Barker, TECHNOLOGIST; Gina Ann, JERRY; Judd Hoover, JERRY Mailer Apprentice: Zulma Bowen Scrub Person: ST Raven; Danette [...] Implant Name Type Inv. Item Serial No. Paper Guillotine Operator Lot No. LRB No. Used Action CLOSURE PERCLOSE PROSTYLE - [id number] Closure Device CLOSURE PERCLOSE PROSTYLE GARAY VAS N/A 2 Implanted VALVE 34MM EVOLUT PRO AORTIC - [id number] Percutaneous Valve VALVE 34MM EVOLUT PRO AORTIC [id number] [employer] N/A 1 Implanted Drain(s): * No LDAs found * Wound(s): * No LDAs found * Robert Pugh MD 01/21/2022 12:24 PM [facility] Work Phone: 1(185) 545-340402-22-2022 Attending History and physical note* Angelica Randall CNP - 01/21/2022 10:05 AM EST INTERVAL HISTORY AND PHYSICAL Patient Name: Vickie Gonzalez Admit Date: 2220101 MR #: [id number] : 1955 The H&P has been reviewed [...] Name: Vickie Gonzalez Admit Date: MR #: [id number] : 1955 Physicians: Nicol Ibanez MD (Family) [...] tablet by mouth daily . Historical Provider, RIRPPUU-ASULZDAVB-HQDY ORAL Take 1 tablet by mouth daily [...] Wt 106.3 kg (234 lb 5.6 oz) JqV979% BMI 37.82 kg/m General: Alert, cooperative, no [...] Component Value Date HGBA1C 6.1 (H) 01/09/2022 @GCWGLUW57@ CT TAVR Chest Abdomen Pelvis without hydration [...] the abdomen or pelvis. VK/tde Workstation ID: [id number] Carotid Duplex Result Date: 01/09/2022 Patient Info Name: VICKIE GONZALEZ Age: 66 years : 1955 Gender: Female Exam Date: 01/09/2022 11:00 AM Patient Status: Outpatient Creative Writing Teacher: Corina BOWDEN RVT^^^^ Referring Physician: ANGELICA RANDALL ; Attending Physician: ANGELICA RANDALL Indications I35.0 - Aortic valve stenosis, severe Z01.810 - Pre-operative cardiovascular examination R09.89 - Other specified symptoms and signs involving the circulatory and respiratory systems - Preop TAVR Procedure Description 63448 Duplex examination using B-mode, color and spectral [...] 12/30/2021 11:07 AM Patient Status: Outpatient Son ogpher: Angelica Lynne, RDCS, RVT Exam Type: ECHOCARDIOGRAM COMPLETE Study Info Indications I35.1 - Nonrheumatic aortic (valve) insufficiency Referring Physician: BLAINE SILVEIRA ; [id number] BMI:36.64 kg/m2 Summary 1. Left ventricular systolic [...] mmHg MV VTI 28 cm MV [place]el [place] 718 cm/s2 MV PHT 48 ms MVArea [...] cm/s AR VTI 179 cm AR [place] 490 cm/s2 AR PHT 283 ms AR [...] ml/m2 16-34 RA Dimensions RA Systolic Major [place] Length (4C) 7.17 cm <=5.30 RAArea (4C) 28.7 cm2 <=18.0 RA Area (4C) Index 13 cm2/m2 RA ESV (4C MOD) 90 ml 15-27 RA ESV Index (4C MOD) 40 ml/m2 <=27 Report Signatures Finalized by Diego Fox MD, VI on 12/30/2021 05:14 PM XR Chest AP/PA [...] stable. Stable examination. Stable cardiomegaly. Workstation ID: [id number] History and physical note* Angelica Randall CNP - 01/21/2022 10:05 AM EST INTERVAL HISTORY AND PHYSICAL Patient Name: Vickie Gonzalez Admit Date: [id number] MR #: [id number] : 1955 The H&P has been reviewed [...] Name: Vickie Gonzalez Admit Date: MR #: [id number] : 1955 Physicians: Nicol Ibanez MD (Family) [...] tablet by mouth daily . Historical Provider, [id number] ORAL Take 1 tablet by mouth daily [...] Wt 106.3 kg (234 lb 5.6 oz) XpH344% BMI 37.82 kg/m General: Alert, cooperative, no [...] Component Value Date HGBA1C 6.1 (H) 01/09/2022 @MRVRNVH22@ CT TAVR Chest Abdomen Pelvis without hydration [...] acute process in the abdomen or pelvis. [facility]/tde Workstation ID: [id number] Carotid Duplex Result Date: 01/09/2022 Patient Info Name: VICKIE GONZALEZ Age: 66 years : 1955 Gender: Female Exam Date: 01/09/2022 11:00 AM Patient Status: Outpatient Creative Writing Teacher: Corina BOWDEN RVT^^^^ Referring Physician: ANGELICA RANDALL ; Attending Physician: ANGELICA RANDALL Indications I35.0 - Aortic valve stenosis, severe Z01.810 - Pre-operative cardiovascular examination R09.89 - Other specified symptoms and signs involving the circulatory and respiratory systems - Preop TAVR Procedure Description 90690 Duplex examination using B-mode, color and spectral [...] Patient Status: Outpatient Son ographer: Angelica Lynne, CS, RVT Exam Type: ECHOCARDIOGRAM COMPLETE Study Info Indications I35.1 - Nonrheumatic aortic (valve) insufficiency Referring Physician: BLAINE SILVEIRA ; [id number] BMI:36.64 kg/m2 Summary 1. Left ventricular systolic [...] mmHg MV VTI 28 cm MV [place] 718 cm/s2 MV PHT 48 ms MVArea [...] cm/s AR VTI 179 cm AR [place] 490 cm/s2 AR PHT 283 ms AR [...] ml/m2 16-34 RA Dimensions RA Systolic Major [place] Length (4C) 7.17 cm <=5.30 RAArea (4C) [...] stable. Stable examination. Stable cardiomegaly. Workstation ID: [id number] documented in this [id number] Note* Op Note - Robert Pugh MD - 01/21/2022 7:22 AM EST VICKIE GONZALEZ [facility] [id number] 1955 DATE 01/21/2022 OPERATIVE REPORT SURGEON ROBERT [...] condition. ROBERT PUGH MD D 01/21/2022 12:30 [id number] T 01/21/2022 12:47 WJF/MODL [id number] Nurse Surgical operation note* Luly Arceo RN - 01/17/2022 12:24 PM EST [facility] Surgical Department Patient Instructions for [facility]: Prior to surgery: Please bathe [...] if desired. When you arrive at the [facility] on the day of your surgery, please note that metal finisher parking is free. Pull up to the [...] to view our online educational program in [email or web address]? It is very helpful to watch this as it can help you understand your surgery preparation process here at [facility]. It will provide you with additional [...] contact surgeon's office with any additional questions. [id number] Nurse Note* Luly Arceo RN - 01/17/2022 12:24 PM EST [facility] Surgical Department Patient Instructions for [facility]: Prior to surgery: Please bathe [...] if desired. When you arrive at the [facility] on the day of your surgery, please note that metal finisher parking is free. Pull up to the [...] to view our online educational program in [email or web address]? It is very helpful to watch this as it can help you understand your surgery preparation process here at [facility]. It will provide you with additional [...] with any additional questions. documented in this [id number] Miscellaneous Notes* Assessment & Plan Note - Lindsey lPummer MD - 01/09/2022 8:06 PM EST Associated [...] Dr. Lindsey Plummer MD, MSc, [place]ERT[place], FACC, [facility]. [facility] Heart and Vascular documented in this [id number] History of Present illness Narrative* Lindsey Plummer MD - 01/09/2022 8:05 PM EST Structural Heart Disease Clinic Consult Heart & Vascular [facility] 01/09/2022 Lindsey Plummer MD [address] [id number] Patient: Vickie Gonzalez Date of : 1955 [...] Dr. Lindsey Plummer MD, MSc, [place]ERTO, FACC, [facility]. [facility] Heart and Vascular Follow-up: No follow-ups on [...] Final Result by Muriel Guerra RN (01/09/2022 1149) Echocardiogram complete Final Result by Diego Fox MD (12/30/2021 2473) CCTA Heart (Wall Taper Helper read) (Results Pending) HOME Medications: Patient's [...] Take 1 tablet by mouth daily . VIDDOTH-[id number]-SWMB ORAL Take 1 tablet by mouth daily [...] LDLCALC, LDLDIRECT, TRIG, HDL documented in this [id number] History of Present illness Narrative* Meir Arthur MD - 01/09/2022 1:07 PM EST STRUCTURAL HEART DISEASE CLINIC TAVR CONSULTATION Patient Name: Vickie Gonzalez Admit Date: MR #: [id number] : 1955 Physicians: Nicol Ibanez MD (Family) [...] tablet by mouth daily . Historical Provider, [id number]-[id number]-NGCH ORAL Take 1 tablet by mouth daily [...] Wt 106.3 kg (234 lb 5.6 oz) ZdS232% BMI 37.82 kg/m General: Alert, cooperative, no [...] Component Value Date HGBA1C 6.1 (H) 01/09/2022 @QMRRMJW59@ CT TAVR Chest Abdomen Pelvis without hydration [...] acute process in the abdomen or pelvis. [facility]/tde Workstation ID: [id number] Carotid Duplex Result Date: 01/09/2022 Patient Info Name: VICKIE GONZALEZ Age: 66 years : 1955 Gender: Female Exam Date: 01/09/2022 11:00 AM Patient Status: Outpatient Creative Writing Teacher: Corina BOWDEN RVT^^^^ Referring Physician: ANGELICA RANDALL ; Attending Physician: ANGELICA RANDALL Indications I35.0 - Aortic valve stenosis, severe Z01.810 - Pre-operative cardiovascular examination R09.89 - Other specified symptoms and signs involving the circulatory and respiratory systems - Preop TAVR Procedure Description 04064 Duplex examination using B-mode, color and spectral [...] Patient Status: Outpatient Son ographer: Angelica Lynne, BRIANACS, RVT Exam Type: ECHOCARDIOGRAM COMPLETE Study Info Indications I35.1 - Nonrheumatic aortic (valve) insufficiency Referring Physician: BLAINE SILVEIRA ; [id number] BMI:36.64 kg/m2 Summary 1. Left ventricular systolic [...] mmHg MV VTI 28 cm MV [place] 718 cm/s2 MV PHT 48 ms MVArea [...] cm/s AR VTI 179 cm AR [place] 490 cm/s2 AR PHT 283 ms AR [...] ml/m2 16-34 RA Dimensions RA Systolic Major [place] Length (4C) 7.17 cm <=5.30 RAArea (4C) [...] stable. Stable examination. Stable cardiomegaly. Workstation ID: [id number] * Angelica Taylor Tonia, INDUSTRIAL SALES ENGINEER - 01/09/2022 12:44 PM EST [facility] TAVR CONSULTATION Patient Name: Vickie Gonzalez Admit Date: MR #: [id number] : 1955 Physicians: Nicol Ibanez MD (Family) [...] tablet by mouth daily . Historical Provider, [id number]-AMSY ORAL Take 1 tablet by mouth daily [...] Wt 106.3 kg (234 lb 5.6 oz) EaD698% BMI 37.82 kg/m General: Alert, cooperative, no [...] Component Value Date HGBA1C 6.1 (H) 01/09/2022 @RLYCVNE01@ CT TAVR Chest Abdomen Pelvis without hydration [...] the abdomen or pelvis. VK/tde Workstation ID: [id number] Carotid Duplex Result Date: 01/09/2022 Patient Info Name: VICKIE GONZALEZ Age: 66 years : 1955 Gender: Female Exam Date: 01/09/2022 11:00 AM Patient Status: Outpatient Creative Writing Teacher: Corina BOWDEN RVT^^^^ Referring Physician: ANGELICA RANDALL ; Attending Physician: ANGELICA RANDALL Indications I35.0 - Aortic valve stenosis, severe Z01.810 - Pre-operative cardiovascular examination R09.89 - Other specified symptoms and signs involving the circulatory and respiratory systems - Preop TAVR Procedure Description 12444 Duplex examination using B-mode, color and spectral [...] (valve) insufficiency Referring Physician: BLAINE SILVEIRA ; [id number] BMI:36.64 kg/m2 Summary 1. Left ventricular systolic [...] mmHg MV VTI 28 cm MV [place] 718 cm/s2 MV PHT 48 ms MVArea [...] cm/s AR VTI 179 cm AR [place] 490 cm/s2 AR PHT 283 ms AR [...] ml/m2 16-34 RA Dimensions RA Systolic Major [place] Length (4C) 7.17 cm <=5.30 RAArea (4C) [...] stable. Stable examination. Stable cardiomegaly. 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, but stopped * Assessment & Plan Note - Blaine Silveira MD - 06/10/2021 11:29 AM EDT Associated Problem(s): Aortic insufficiency symptoms could also be Aortic Stenosis/AI will recheck echo * Assessment & Plan Note - Blaine Silveira MD - 06/10/2021 11:24 AM EDT Associated Problem(s): Coronary artery dise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 Has had 2 spells of chest / jaw discomfort and shortness of breath, relieved with rest Will get a stress, she will also check and walk and if gets predictable may need a cath continue asa/metoprolol and will give sl ntg documented in this [id number] History of Present illness Narrative* Blaine Silveira MD - 06/10/2021 11:34 AM EDT Patient Name: Vickie Gonzalez MR #: [id number] Interventional Cardiology Blaine Silveira MD, [facility] Heart and Vascular Physicians 06/10/21 Dear Nicol Ibanez MD, Vickie Gonzalez was seen in follow up for : Problem Coronary Artery Disease Involving [place] Coronary Artery of [place] Heart Without Angina Pectoris CABG 2000 Cath 2010 all grafts open Aortic Insufficiency Moderate to Severe Asx AI-- same 12/2017 only mild-moderate Elevated Sed Rate Hld (Hyperlipidemia) Assessment and Plan Coronary artery dise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 Has had 2 [...] and also could be fibrosiing mediastinitis 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 [id number]-[id number]-KSGF ORAL Take 1 tablet by mouth daily [...] patient is not nervous/anxious. documented in this [id number] Instructions* Patient Instructions* Zoila Cueto MA - 06/10/2021 11:15 AM EDT How to contact your Care Team: Provider: Dr. Silveira Nurse: Iliana Madsen RN In case of an emergency please call 911. REFILLS: When in need for refills please call your care team or the office at [phone]. Please include medication name, pharmacy name, and specify 30-day or 90-day supply. Please check with your pharmacy within 24 hours of request for your refill. You must follow up as directed to continue current refills. Thank you! documented in this encounterOhioHealthEvaluation note* Diagnosis Coronary artery dise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- Primary [facility] [place] [facility]* Diagnosis Coronary artery dise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 Nonrheumatic aortic valve insufficiency Elevated sed rate Elevated sedimentation rate Mixed hyperlipidemia [facility] [place] [facility]* Diagnosis Nonrheumatic aortic valve insufficiency- Primary [facility] [place] [facility]* Diagnosis Nonrheumatic aortic valve insufficiency- Primary [facility]* Diagnosis Aortic valve stenosis, severe- Primary Aortic valve disorders Pre-operative cardiovascular examination Other specified symptoms and signs involving the circulatory and respiratory systems [facility] [place] [facility]* Diagnosis Aortic valve stenosis, severe- Primary Aortic valve disorders Pre-operative cardiovascular examination Other abnormal findings in urine Abnormal coagulation profile Abnormal coagulation profile Dyspnea, unspecified type Abnormal finding of blood chemistry, unspecified [facility] [place] [facility]* Diagnosis Encounter for preprocedure screening laboratory testing for COVID-19- Primary [facility] [place] [facility]* Diagnosis Encounter for preoperative screening laboratory testing for COVID-19 virus- Primary [facility] [place] [facility]* Diagnosis Encounter for preoperative screening laboratory testing for COVID-19 virus- Primary [facility] [place] [facility]* Diagnosis Severe aortic insufficiency- Primary Aortic valve stenosis, severe Aortic valve disorders Pre-operative cardiovascular examination [facility]* Diagnosis Aortic valve stenosis, severe Aortic valve disorders Pre-operative cardiovascular examination [facility]* Diagnosis Aortic valve stenosis, severe- Primary Aortic valve disorders Severe aortic insufficiency Aortic valve stenosis, severe Aortic valve disorders Severe aortic insufficiency Aortic valve stenosis, severe Aortic valve disorders Severe aortic insufficiency [facility]* Diagnosis Aortic valve stenosis, severe Aortic valve disorders Severe aortic insufficiency Encounter for preprocedure screening laboratory testing for COVID-19- Primary Aortic valve stenosis, severe Aortic valve disorders Severe aortic insufficiency [facility] [place] [facility]* Diagnosis S/P TAVR (transcatheter aortic valve replacement)- Primary [facility]* Diagnosis Severe aortic stenosis- Primary Aortic valve disorders S/P TAVR (transcatheter aortic valve replacement) [facility]* Diagnosis S/P TAVR (transcatheter aortic valve replacement)- Primary [facility] [place] [facility]* Diagnosis S/P TAVR (transcatheter aortic valve replacement)- Primary Shortness of breath Shortness of breath [facility] [place] [facility]* Diagnosis S/P TAVR (transcatheter aortic valve replacement)- Primary [facility] [place] [facility]* Diagnosis S/P TAVR (transcatheter aortic valve replacement)- Primary Hypertension, unspecified type [facility] [place] [facility]* Diagnosis Onset Date Resolution Status Basal cell carcinoma (BCC) of left lower extremity acute [id number] acute BMI 40.0-44.9, adult chronic HTN (hypertension) chronic [facility] Work Phone: Evaluation note* Diagnosis Onset Date Resolution Status Basal cell carcinoma (BCC) of left lower extremity acute [id number] acute BMI 40.0-44.9, adult chronic HTN (hypertension) chronic Basal cell carcinoma (BCC) of left lower extremity acute [id number] acute BMI 40.0-44.9, adult chronic HTN (hypertension) chronic 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 [facility] Work Phone: Evaluation note* Diagnosis Onset Date Resolution Status Basal cell carcinoma (BCC) of left lower extremity acute [id number] acute BMI 40.0-44.9, adult chronic HTN (hypertension) chronic Basal cell carcinoma (BCC) of left lower extremity acute [id number] acute BMI 40.0-44.9, adult chronic HTN (hypertension) chronic 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 Basal cell carcinoma (BCC) of left lower extremity acute [id number] acute BMI 40.0-44.9, adult chronic HTN (hypertension) chronic 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 [facility] Work Phone: Evaluation note* Diagnosis Onset Date Resolution Status Basal cell carcinoma (BCC) of left lower extremity acute [id number] acute BMI 40.0-44.9, adult chronic HTN (hypertension) chronic Basal cell carcinoma (BCC) of left lower extremity acute [id number] acute BMI 40.0-44.9, adult chronic HTN (hypertension) chronic 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 Basal cell carcinoma (BCC) of left lower extremity acute [id number] acute BMI 40.0-44.9, adult chronic HTN (hypertension) chronic 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 Basal cell carcinoma (BCC) of left lower extremity acute [id number] acute HTN (hypertension) chronic 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 [facility] Work Phone: Evaluation note* Diagnosis Osteoarthritis of right knee, unspecified osteoarthritis type- Primary Hypertension, unspecified type [facility]* Diagnosis Osteoarthritis of right knee- Primary Osteoarthrosis, unspecified whether generalized or localized, lower leg Coronary artery dise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- Primary Osteoarthritis of right knee, unspecified osteoarthritis type Severe aortic insufficiency Osteoarthritis of right knee, unspecified osteoarthritis type [facility] noteNo assessment information [facility]WFort [facility] Work Phone: Evaluation note* Diagnosis Osteoarthritis [...] right knee replacement [facility]* Diagnosis Status post total right knee replacement- Primary [facility]* Diagnosis Status post total right knee replacement- Primary [facility] [place] [facility]* Diagnosis Status post total right knee replacement- Primary [facility] [place] [facility]* Diagnosis Status post total right knee replacement- Primary documented in this encounter [facility] note* Diagnosis Status post total right knee replacement- Primary documented in this encounter [facility] note* Diagnosis Status post total right knee replacement- Primary documented in this encounter [facility] note* Diagnosis Status post total right knee replacement- Primary documented in this encounter [facility] note* Diagnosis Status post total right knee replacement- Primary documented in this encounter [facility] note* Diagnosis Status post total right knee replacement- Primary documented in this encounter [facility] note* Diagnosis Status post total right knee replacement- Primary documented in this encounter [facility] note* Diagnosis Status post total right knee replacement- Primary documented in this encounter [facility] note* Diagnosis Status post total right knee replacement- Primary documented in this encounter [facility] note* Diagnosis Onset Date Resolution Status Admit Date Atrial flutter with rapid ventricular response acute May 30 025 2:39am Palpitations acute May 30 2:39am Racing heart beat acute May 2:39am S/P TAVR (transcatheter aort ic valve replacement) acute May 30 2:39am Aortic valve insufficiency chronic May 30, 2025 2:39am BMI 40.0-44.9, adult chronic May 30, 2025 2:39am Status post double vessel coronary artery bypass resolved May 30, 2025 2:39am [facility] Work Phone: Hospital Discharge instructions* Attachments The following attachments cannot be sent through Care Everywhere. * Transcatheter Aortic Valve Implantation (LIONEL): Post-op (Czech) documented in this encounterOhioHealthHospital Discharge instructions Additional Instructions Ice your left eye several times a day for the next few days, follow-up with your PCP and return for any worsening of your symptoms.[facility] Work Phone: Patient's home Plan of care note* Visit Details Visit Type -SN [facility] t of Care Discipline -Alf Problems Problem Start Date Status Goals Interventions Wound Care and/or Skin Problems Disciplines: Alf 01/27/2024 Active 1 goal linked to scheduled/documented intervention 1 goal intervention scheduled/documented in this visit Assess and Instruct Home Visit Disciplines: Alf 01/27/2024 Active 1 goal linked to scheduled/documented intervention 4 goal interventions scheduled/documented in this visit Medication Management Disciplines: Alf 01/27/2024 Active 1 goal linked to scheduled/documented intervention 1 goal intervention scheduled/documented in this visit Pain Management Disciplines: Alf 01/27/2024 Active 1 goal linked to scheduled/documented [...] Management Goal:Pain Completed [facility]* Visit Details [facility] Discipline -Alf Problems Problem Start Date Status Goals Interventions Wound Care and/or Skin Problems Disciplines: Alf 01/27/2024 Active 1 goal linked to scheduled/documented intervention 1 goal intervention scheduled/documented in this visit Assess and Instruct Home Visit Disciplines: Alf 01/27/2024 Active 1 goal linked to scheduled/documented intervention 4 goal interventions scheduled/documented in this visit Medication Management Disciplines: Alf 01/27/2024 Active 1 goal linked to scheduled/documented intervention 1 goal intervention scheduled/documented in this visit Pain Management Disciplines: Alf 01/27/2024 Active 1 goal linked to scheduled/documented [...] Management Goal:Pain Completed [facility]* Visit Details [...] Scheduled [facility]* Visit Details Visit Type -TRIM MACHINE OPERATOR Routine Visi t Discipline -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 Problems [...] also Clinician taught: patient Clinician instructed on: travel pta educated pt on importance of increased elevation frequency d/t considerable swelling this date which is hindering ROM. pt verbalized understanding, plan to elevate at least 4 times a day c foot above heart as instructed pt TRIM MACHINE OPERATOR this date. chair flex stretch and heel slides x10, ext prop 5'. QS, SAQ, SLR, LAQ x20 ea to improve mobility and strength. pt c/o significant tightness in knee during flex stretching and mod increased pain. travel pta educated pt on importance of pushing flex [...] flex during amb d/t tightness in knee. travel pta provided demo of good toe off and allowing knee to bend during toe off to improve mobility and flex rom. pt c mod improvement p travel pta demo. Therapist provided cueing for proper TA from seated position, including reaching back for chair and feeling chair c back of legs to avoid falls. Cueing also provided for slow, eccentric control c return to sitting position. pt sba for sit to supine ta this date. travel pta assisted pt c placement of pillows for cp and elevation p tx to allow for relaxed position to allow pt to remain elevated for 1 hour to decrease inflammation Patient/caregiver is able to teach back 90% of instruction. [facility] Visit Details Visit Type -TRIM MACHINE OPERATOR Routine Visi t Discipline -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 Problems [...] in quad tendon insertion during flex stretching. travel pta provided mod assist c flex stretching to improve mobility. travel pta provided education on importance of flex stretching [...] amb 175' today c fww and sba. travel pta provided demo and vc for increased step [...] 95% of instruction. [facility] Visit Details Visit Type -SN HH Routine Vi sit Discipline -Alf Problems Problem Start Date Status Goals Interventions Wound Care and/or Skin Problems Disciplines: Alf 01/27/2024 Active 1 goal linked to scheduled/documented intervention 1 goal intervention scheduled/documented in this visit Assess and Instruct Home Visit Disciplines: Alf 01/27/2024 Active 1 goal linked to scheduled/documented intervention 4 goal interventions scheduled/documented in this visit Medication Management Disciplines: Alf 01/27/2024 Active 1 goal linked to scheduled/documented intervention 1 goal intervention scheduled/documented in this visit Pain Management Disciplines: Alf 01/27/2024 Active 1 goal linked to scheduled/documented [...] Management Goal:Pain Completed [facility] Visit Details Visit Type -TRIM MACHINE OPERATOR Routine Visi t Discipline -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 Problems [...] toe gait pattern c decresaed vc needed. travel pta instructed pt to continue c frequent ambulation [...] 95% of instruction. [facility] Visit Details Visit Type -JAVA WEBSPHERE DEVELOPER HH Routine Discipline -Alf Problems Problem Start Date Status Goals Interventions Wound Care and/or Skin Problems Disciplines: Alf 01/27/2024 Active 1 goal linked to scheduled/documented intervention 1 goal intervention scheduled/documented in this visit Assess and Instruct Home Visit Disciplines: Alf 01/27/2024 Active 1 goal linked to scheduled/documented intervention 4 goal interventions scheduled/documented in this visit Medication Management Disciplines: Alf 01/27/2024 Active 1 goal linked to scheduled/documented intervention 1 goal intervention scheduled/documented in this visit Pain Management Disciplines: Alf 01/27/2024 Active 1 goal linked to scheduled/documented [...] Management Goal:Pain Completed [facility] Visit Details Visit Type -TRIM MACHINE OPERATOR Routine Visi t Discipline -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 Problems [...] progress. very tight, firm end feel c travel pta assisted heel slides this date Patient/caregiver is able to teach back 95% of instruction. Instruct Mobility Problem:Mobility Goal:Mobility Completed Patient reports: walking more but does report increased pain this date d/t decerase pain med freqency. Clinician taught: patient Clinician instructed on: travel pta educated pt on not weaning off pain [...] 95% of instruction. [facility] Visit Details Visit Type -SN HH OASIS Star t of Care Discipline -Alf Problems Problem Start Date Status Goals Interventions Wound Care and/or Skin Problems Disciplines: Alf 01/27/2024 Active 1 goal linked to scheduled/documented intervention 1 goal intervention scheduled/documented in this visit Assess and Instruct Home Visit Disciplines: Alf 01/27/2024 Active 1 goal linked to scheduled/documented intervention 4 goal interventions scheduled/documented in this visit Medication Management Disciplines: Alf 01/27/2024 Active 1 goal linked to scheduled/documented intervention 1 goal intervention scheduled/documented in this visit Pain Management Disciplines: Alf 01/27/2024 Active 1 goal linked to scheduled/documented [...] Management Goal:Pain Completed [facility] Visit Details Visit Type -JAVA WEBSPHERE DEVELOPER Routine Discipline -Alf Problems Problem Start Date Status Goals Interventions Wound Care and/or Skin Problems Disciplines: Alf 01/27/2024 Active 1 goal linked to scheduled/documented intervention 1 goal intervention scheduled/documented in this visit Assess and Instruct Home Visit Disciplines: Alf 01/27/2024 Active 1 goal linked to scheduled/documented intervention 4 goal interventions scheduled/documented in this visit Medication Management Disciplines: Alf 01/27/2024 Active 1 goal linked to scheduled/documented intervention 1 goal intervention scheduled/documented in this visit Pain Management Disciplines: Alf 01/27/2024 Active 1 goal linked to scheduled/documented [...] Management Goal:Pain Completed [facility] Visit Details Visit Type -TRIM MACHINE OPERATOR Routine Visi t Discipline -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 Problems [...] in quad tendon insertion during flex stretching. travel pta provided mod assist c flex stretching to improve mobility. travel pta provided education on importance of flex stretching [...] amb 175' today c fww and sba. travel pta provided demo and vc for increased step [...] 95% of instruction. [facility] Visit Details Visit Type -TRIM MACHINE OPERATOR Routine Visi t Discipline -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 Problems [...] toe gait pattern c decresaed vc needed. travel pta instructed pt to continue c frequent ambulation [...] 95% of instruction. [facility] Visit Details Visit Type -TRIM MACHINE OPERATOR Routine Visi t Discipline -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 Problems [...] also Clinician taught: patient Clinician instructed on: travel pta educated pt on importance of increased elevation frequency d/t considerable swelling this date which is hindering ROM. pt verbalized understanding, plan to elevate at least 4 times a day c foot above heart as instructed pt TRIM MACHINE OPERATOR this date. chair flex stretch and heel slides x10, ext prop 5'. QS, SAQ, SLR, LAQ x20 ea to improve mobility and strength. pt c/o significant tightness in knee during flex stretching and mod increased pain. travel pta educated pt on importance of pushing flex [...] flex during amb d/t tightness in knee. travel pta provided demo of good toe off and allowing knee to bend during toe off to improve mobility and flex rom. pt c mod improvement p travel pta demo. Therapist provided cueing for proper TA from seated position, including reaching back for chair and feeling chair c back of legs to avoid falls. Cueing also provided for slow, eccentric control c return to sitting position. pt sba for sit to supine ta this date. travel pta assisted pt c placement of pillows for cp and elevation p tx to allow for relaxed position to allow pt to remain elevated for 1 hour to decrease inflammation Patient/caregiver is able to teach back 90% of instruction. [facility] Visit Details Visit Type -TRIM MACHINE OPERATOR Routine Visi t Discipline -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 Problems [...] RA for DC to outpt PT at [facility] Home Exercise Program Problem:Home Exercise Program [...] pt amb c sc and sba today. travel pta provided vc and demo for proper 2 [...] 100% of instruction. [facility] Visit Details Visit Type -SN HH OASIS Star t of Care Discipline -Alf Problems Problem Start Date Status Goals Interventions Wound Care and/or Skin Problems Disciplines: Alf 01/27/2024 Active 1 goal linked to scheduled/documented intervention 1 goal intervention scheduled/documented in this visit Assess and Instruct Home Visit Disciplines: Alf 01/27/2024 Active 1 goal linked to scheduled/documented intervention 4 goal interventions scheduled/documented in this visit Medication Management Disciplines: Alf 01/27/2024 Active 1 goal linked to scheduled/documented intervention 1 goal intervention scheduled/documented in this visit Pain Management Disciplines: Alf 01/27/2024 Active 1 goal linked to scheduled/documented [...] Management Goal:Pain Completed [facility] Visit Details Visit Type -SN HH Non-OASIS/ Discipline DC Discipline -Alf Problems Problem Start Date Status Goals Interventions Wound Care and/or Skin Problems Disciplines: Alf 01/27/2024 Resolved on 02/11/2024 1 goal linked to scheduled/documented intervention 1 goal intervention scheduled/documented in this visit Assess and Instruct Home Visit Disciplines: Alf 01/27/2024 Resolved on 02/11/2024 1 goal linked to scheduled/documented intervention 4 goal interventions scheduled/documented in this visit Medication Management Disciplines: Alf 01/27/2024 Resolved on 02/11/2024 1 goal linked to scheduled/documented intervention 1 goal intervention scheduled/documented in this visit Pain Management Disciplines: Alf 01/27/2024 Resolved on 02/11/2024 1 goal linked [...] Management Goal:Pain Scheduled [facility] Visit Details Visit Type -TRIM MACHINE OPERATOR Routine Visi t Discipline -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 Problems [...] RA for DC to outpt PT at [facility] Home Exercise Program Problem:Home Exercise Program [...] pt amb c sc and sba today. travel pta provided vc and demo for proper 2 [...] 100% of instruction. [facility] Visit Details Visit Type -PT OASIS Dischar ge Discipline -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 Problems Problem Start Date [...] Care Plan Scheduled [facility] Actions Pt [facility] in to [place] [facility]. Reviewed care plan, medications, pain mgmt, ice and elevation, S&S to report, wound care and safety with ambulation. Patient/caregiver verbalized understanding and agreement. [facility] Actions Pt admitted in to [facility]. Reviewed care plan, medications, pain mgmt, ice and elevation, S&S to report, wound care and safety with ambulation. Patient/caregiver verbalized understanding and agreement. [facility]* Actions Homebound Status [...] teach wound/skin/incision care as per discharge instructions Market Investigator Goals: Patient remains safe at home, Patient [...] be able to bend it more PT [facility] complete, PT 1x1, 3x2 Skilled interventions at [facility] included: Pt educated on icing 3-4x per [...] questions or concerns. [facility] [...] determined by P.T. [facility] Actions Homebound Status [...] determined by P.T. [facility] Actions Homebound Status Criteria [...] determined by P.T. [facility] Actions CP assessment meds reviewed education provided on s/sx of infection r/t wounds, diet education provided. educated patient on safety with ambulation. patient voiced understanding. report given to CM Narratives Homebound Status Criteria 1: Assistive Device(s): Walker Needs assistance of at least 1 to leave home Criteria 2: Patient confined to home due to unsteady gait/poor balance and dyspnea with exertion Type of Home: 2-story house [facility]* Actions Homebound Status Criteria [...] determined by P.T. [facility] Actions Pt [facility] in [facility] [place] [facility]. Reviewed care plan, medications, pain mgmt, ice and elevation, S&S to report, wound care and safety with ambulation. Patient/caregiver verbalized understanding and agreement. [facility]* Actions CP assessment meds [...] Progress note* Actions Pt admitted in to [place] [facility]. Reviewed care plan, medications, pain mgmt, ice and elevation, S&S to report, wound care and safety with ambulation. Patient/caregiver verbalized understanding and agreement. [facility]* Actions Homebound Status [...] determined by P.T. [facility] (narrative)No reason for referral information availableWFort [facility] Work Phone: Reason for visit Narrative* Auth/Cert Specialty Diagnoses / Procedures Referred By Contac t Referred To Contact Diagnoses severe aortic stenosis Procedures [place] TRANSCATHETER TRANSAPICAL REPLACEMT AORTIC VALVE Transcatheter Aortic Valve Replacement TRANSCATHETER AORTIC VALVE REPLACEMENT FEMORAL APPROACH Referral ID Status Reason Start Date Expiration Date Visits Re quested Visits Authorized [id number] 1 1 [facility] Assessments Diagnosis SOB (shortness of breath) Shortness of breath Diagnosis SOB (shortness of breath) Shortness of breath Coronary artery dise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 Fibrosing mediastinitis Mediastinitis Nonrheumatic aortic valve insufficiency Diagnosis Nonrheumatic aortic valve insufficiency Summary Purpose Family History Relationship Condition Age at Onset Recorded Date/T ayleen mother Diabetes mellitus Unknown father Obstructive sleep apnea syndrome Unknown Advance Directives Documents on File Type Date Recorded Patient Lumber Press Operator Expl anation Advance Directives and Living Will Documents on File Type Date Recorded Patient Lumber Press Operator Expl anation Advance Directives and Livin g Will Advance Directives and Livin g Will 06/14/2019 12:00 AM Documents on File Type Date Recorded Patient Lumber Press Operator Expl anation Advance Directives and Livin g Will Advance Directives and Livin g Will 06/14/2019 12:00 AM Documents on File Type Date Recorded Patient Lumber Press Operator Expl anation Advance Directives and Livin g Will Advance Directives and Livin g Will 01/09/2022 7:51 AM Documents on File Type Date Recorded Patient Lumber Press Operator Expl anation Advance Directives and Livin [...] Documents on File Type Date Recorded Patient Lumber Press Operator Expl anation Advance Directives and Livin [...] No June 25, 2023 10:48am Power of Uniforms Sales Representative No June 25 10:48am Advance Directive Response Recorded Date/ Time Living Will No June 25, 2023 9:48am Power of Uniforms Sales Representative No June 25 9:48am Latest Code Status [...] Comments 01/15/2022 6:56 AM 01/15/2022 9:17 AM Advance Directive Response Recorded Date/ Time Do you have a Healthcare Power of Uniforms Sales Representative? Yes May 29, 2025 11:26pm Name of Medical Power of Uniforms Sales Representative Andrei Omalley May 29, 2025 11:26pm Reason for Referral Status Reason Specialty Diagnoses / Procedures Referred By Contact Referred To Contact Pending Review Cardiology Diagnoses Nonrheumatic aortic valve insufficiency Procedures Echocardiogram complete Blaine Silveira MD [address] [place] [address] Status Reason Specialty Diagnoses / Procedures Referre d By Contact Referred To Contact Closed Cardiology Diagnoses Nonrheumatic aortic valve insufficiency Procedures Echocardiogram Blaine Stark MD [address] [place] [address] Status Reason Specialty Diagnoses / Procedures Referred By Contact Referred To Contact Authorized Cardiology Diagnoses Coronary artery dise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 Procedures ECG 12 Lead Blaine Silveira MD [address] [place] [address] Status Reason Specialty Diagnoses / Procedures Referred By Contact Referred To Contact New Request Radiology Diagnoses Coronary artery dise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 Procedures NM Myocardial Perfusion Multiple SPECT Blaine Silveira MD [address] [place] [address] Status Reason Specialty Diagnoses / Procedures Referred By Contact Referred To Contact New Request Cardiology Diagnoses Nonrheumatic aortic valve insufficiency Procedures Echocardiogram complete Blaine Silveira MD [address] [place] [address] Status Reason Specialty Diagnoses / Procedures Referred By Contact Referred To Contact Pending Review Cardiology Diagnoses Nonrheumatic aortic valve insufficiency Procedures Echocardiogram complete Blaine Silveira MD [address] [place] [address] Specialty Diagnoses / Procedures Referred By Contac t Referred To Contact Cardiology Diagnoses Aortic valve stenosis, severe Pre-operative cardiovascular examination Procedures ECG 12 Lead Dye, Angelica Taylor, INDUSTRIAL SALES ENGINEER [address] [place] [address] Referral ID Status Reason Start Date Expiration Date V isits Requested Visits Authorized [id number] Authorized 12/31/2021 12/31/2022 1 1 Specialty Diagnoses / Procedures Referred By Contac t Referred To Contact Cardiology Diagnoses Aortic valve stenosis, severe Pre-operative cardiovascular examination Other specified symptoms and signs involving the circulatory and respiratory systems Procedures Carotid Duplex DyeAngelica, INDUSTRIAL SALES ENGINEER [address] [place] [address] Referral ID Status Reason Start Date Expiration Date V isits Requested Visits Authorized [id number] Authorized 12/31/2021 12/31/2022 1 1 Specialty Diagnoses / Procedures Referred By Contac t Referred To Contact Cardiology Diagnoses S/P TAVR (transcatheter aortic valve replacement) Procedures ECG 12 Lead DyeAngelica INDUSTRIAL SALES ENGINEER [address] [place] [address] Referral ID Status Reason Start Date Expiration Date Visits Re quested Visits Authorized [id number] Closed 01/22/2022 01/22/2023 1 1 Specialty Diagnoses / Procedures Referred By Contac t Referred To Contact Cardiology Diagnoses S/P TAVR (transcatheter aortic valve replacement) Procedures Echocardiogram complete Angelica Randall, INDUSTRIAL SALES ENGINEER [address] [address] Referral ID Status Reason Start Date Expiration Date Visits Re quested Visits Authorized [id number] Closed 01/22/2022 01/22/2023 1 1 Specialty Diagnoses / Procedures Referred By Contac t Referred To Contact Cardiac Rehabilitation Diagnoses S/P TAVR (transcatheter aortic valve replacement) Angelica Randall, INDUSTRIAL SALES ENGINEER [address] [address] Referral ID Status Reason Start Date Expiration Date V isits Requested Visits Authorized [id number] Authorized 01/21/2022 01/21/2023 1 1 Referral ID Status Reason Start Date Expiration Date Visits Re quested Visits Authorized [id number] Closed 06/19/2022 06/19/2023 1 1 Referral ID Status Reason Start Date Expiration Date V isits Requested Visits Authorized [id number] Authorized 06/19/2022 06/19/2023 1 1 Specialty Diagnoses / Procedures Referred By Contac t Referred To Contact Cardiology Diagnoses Osteoarthritis of right knee, unspecified osteoarthritis type Jass Pepe MD [address] [place] [address] [place] [address] Referral ID Status Reason Start Date Expiration Date Visits Requested Visits Authorized [id number] Authorized Specialty Services Required/Pat rachelnt's Best Interest 09/26/2024 1 1 Specialty Diagnoses / Procedures Referred By Contac t Referred To Contact Radiology Diagnoses Osteoarthritis of right knee, unspecified osteoarthritis type Procedures CT Knee Right Without Contrast Jass Pepe MD [address] [place] [address] Referral ID Status Reason Start Date Expiration Date V isits Requested Visits Authorized [id number] New Request 09/27/2023 09/26/2024 1 1 Specialty Diagnoses / Procedures Referred By Contac t Referred To Contact Rehabilitation Diagnoses Status post total right knee replacement Jass Pepe MD [address] [place] [address] [facility] [place] [address] [place] [address] Referral ID Status Reason Start Date Expiration Date V isits Requested Visits Authorized [id number] Authorized 02/01/2024 01/31/2025 1 1 History of Present Illness * Blaine Silveira MD - 06/06/2019 2:56 PM EDT Patient Name: Vickie Gonzalez [facility] MR #: [id number] Interventional Cardiology Blaine Silveira MD, [facility] 06/06/19 Dear Nicol Ibanez MD, Vickie Gonzalez was seen in follow up for : Problem Coronary Artery Disease Involving [place] Coronary Artery of [place] Heart Without Angina Pectoris CABG 2001 Cath 2010 all grafts open Aortic Insufficiency Moderate to Severe Asx AI-- same 12/2017 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 [id number] ORAL Take 1 tablet by mouth daily [...] cell carcinoma (BCC) of left lower extremity [id number] BMI 40.0-44.9, adult HTN (hypertension) Chief Complaint WOUND WOUND Reason for Visit Basal cell carcinoma (BCC) of left lower extremity [id number] BMI 40.0-44.9, adult HTN (hypertension) Basal cell carcinoma (BCC) of left lower extremity [id number] BMI 40.0-44.9, adult HTN (hypertension) Non-pressure chronic ulcer of left calf with fat layer exposed Chief Complaint WOUND WOUND WOUND LAC Reason for Visit Basal cell carcinoma (BCC) of left lower extremity [id number] BMI 40.0-44.9, adult HTN (hypertension) Basal cell carcinoma (BCC) of left lower extremity [id number] BMI 40.0-44.9, adult HTN (hypertension) Non-pressure chronic ulcer of left calf with fat layer exposed Basal cell carcinoma (BCC) of left lower extremity [id number] BMI 40.0-44.9, adult HTN (hypertension) Non-pressure chronic ulcer of left calf with fat layer exposed Chief Complaint WOUND WOUND WOUND LAC WOUND Reason for Visit Basal cell carcinoma (BCC) of left lower extremity [id number] BMI 40.0-44.9, adult HTN (hypertension) Basal cell carcinoma (BCC) of left lower extremity [id number] BMI 40.0-44.9, adult HTN (hypertension) Non-pressure chronic ulcer of left calf with fat layer exposed Basal cell carcinoma (BCC) of left lower extremity [id number] BMI 40.0-44.9, adult HTN (hypertension) Non-pressure chronic ulcer of left calf with fat layer exposed Basal cell carcinoma (BCC) of left lower extremity [id number] HTN (hypertension) Non-pressure chronic ulcer of left calf with fat layer exposed Chief Complaint E ORDERS Chief Complaint E ORDERS EORDER Chief Complaint Admit Date NEW ONSET ATRIAL FLUTTER WITH RVR May 302024 2:39am Reason for Visit Admit Date Atrial flutter with rapid ventricular re sponse May 30, 2025 2:39am Palpitations May 30, 2025 2:39a m Racing heart beat May 30, 2025 2:39a m S/P TAVR (transcatheter aortic valve rep lacement) May 30, 2025 2:39am Aortic valve insufficiency May 30 2:39am BMI 40.0-44.9, adult May 30, 2025 2:39 am Status post double vessel coronary arter y bypass May 30, 2025 2:39am Additional Source Comments INFORMATION SOURCE (unrecogn ized section and content) DATE CREATED AUTHOR 05/24/2018 [facility] DATE CREATED AUTHOR AUTHOR'S ORGANIZ ATION 09/10/2022 [facility] DATE CREATED AUTHOR AUTHOR'S ORGANIZ ATION 01/25/2023 [facility] DATE CREATED AUTHOR AUTHOR'S ORGANIZ ATION 02/22/2023 [facility] DATE CREATED AUTHOR AUTHOR'S ORGANIZ ATION 11/15/2023 [facility] DATE CREATED AUTHOR AUTHOR'S ORGANIZ ATION 02/16/2024 [facility] DATE CREATED AUTHOR AUTHOR'S ORGANIZ ATION 03/15/2024 [facility] DATE CREATED AUTHOR AUTHOR'S ORGANIZ ATION 03/30/2024 [facility] DATE CREATED AUTHOR AUTHOR'S ORGANIZ ATION 01/14/2025 [facility] Reason for Visit (unrecogniz ed section and content) Reason Comments Annual Exam no complaints or con cerns for todays visit Status Reason Specialty Diagnoses / Procedures Referre d By Contact Referred To Contact Closed Cardiology Diagnoses Nonrheumatic aortic valve insufficiency Procedures Echocardiogram complete Blaine Silveira MD [address] [place] [address] Reason Comments Annual Exam Jaw Pain Shortness of Breath Reason Comments Initial Visit (Intake) TAVR Reason Comments Follow-up 2 Week TAVR Reason Comments Follow-up 1 Year TAVR Reason Comments Follow-up Specialty Diagnoses / Procedures Referred By Yanet guerra Referred To Contact Cardiology Diagnoses Osteoarthritis of right knee, unspecified osteoarthritis type Jass Pepe MD [address] [place] [address] Blaine Silveira MD [address] [place] [address] Referral ID Status Reason Start Date Expiration Date V isits Requested Visits Authorized [id number] Closed Specialty Services Required/Leda ent's Best Interest 09/27/2023 09/26/2024 1 1 Reason Onset Date Comments Medication Refill 01/11/2024 Reason Comments Pre-op Exam Specialty Diagnoses / Procedures Referred By Yanet guerra Referred To Contact Referral ID Status Reason Start Date Expiration Date Visits Re quested Visits Authorized [id number] 1 1 Reason Onset Date Comments Medication Refill 02/08/2024 Reason Comments Follow-up Suture / Staple Removal Reason Comments 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 Specialty Diagnoses / Procedures Referred By Contac t Referred To Contact Rehabilitation Diagnoses Status post total right knee replacement Jass Pepe MD [address] [place] [address] [facility] [address] [place] [address] Referral ID Status Reason Start Date Expiration Date V isits Requested Visits Authorized [id number] Authorized 02/01/2024 01/31/2025 13 199 Specialty Diagnoses / Procedures Referred By Contac t Referred To Contact Rehabilitation Diagnoses Status post total right knee replacement Jass Pepe MD [address] [phone] [facility] [address] [place] [address] Assessment & Plan Note - Blaine Silveira [...] issues Associated Problem(s): Coronary artery dise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 Rare angina Doing well, Medications reviewed and will continue current meds Followup 1 year documented in this encounter Care Teams (unrecognized sec tion and content) 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 Relationship Specialty Start Date End Date Nicol Ibanez MD [address] [place] [address] PCP - General 08/26/11 Jass Pepe MD [address] [place] [address] Consulting Physician Orthopedic Surgery 05/20/16 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 Relationship Specialty Start Date End Date Nicol Ibanez MD [address] [place] [address] PCP - General 08/26/11 Jass Pepe MD [address] [place] [address] Consulting Physician Orthopedic Surgery 05/20/16 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 Relationship Specialty Start Date End Date Nicol Ibanez MD [address] [place] [address] PCP - General 08/26/11 Jass Pepe MD [address] [place] [address] Consulting Physician Orthopedic Surgery 05/20/16 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 Relationship Specialty Start Date End Date Nicol Ibanez MD [address] [place] [address] PCP - General 08/26/11 Jass Pepe MD [address] [place] [address] Consulting Physician Orthopedic Surgery 05/20/16 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 Relationship Specialty Start Date End Date Nicol Ibanez MD [address] [place] [address] PCP - General 08/26/11 Jass Pepe MD [address] [place] [address] Consulting Physician Orthopedic Surgery 05/20/16 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 Relationship Specialty Start Date End Date Nicol Ibanez MD [address] [place] [address] PCP - General 08/26/11 Jass Pepe MD [address] [place] [address] Consulting Physician Orthopedic Surgery 05/20/16 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 Relationship Specialty Start Date End Date Nicol Ibanez MD [address] [place] [address] PCP - General 08/26/11 Jass Pepe MD [address] [place] [address] Consulting Physician Orthopedic Surgery 05/20/16 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 Relationship Specialty Start Date End Date Nicol Ibanez MD [address] [place] [address] PCP - General 08/26/11 Jass Pepe MD [address] [place] [address] Consulting Physician Orthopedic Surgery 05/20/16 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 Relationship Specialty Start Date End Date Nicol Ibanez MD [address] [place] [address] PCP - General 08/26/11 Jass Pepe MD [address] [place] [address] Consulting Physician Orthopedic Surgery 05/20/16 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 Relationship Specialty Start Date End Date Nicol Ibanez MD [address] [place] [address] PCP - General 08/26/11 Jass Pepe MD [address] [place] [address] Consulting Physician Orthopedic Surgery 05/20/16 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 Relationship Specialty Start Date End Date Nicol Ibanez MD [address] [place] [address] PCP - General 08/26/11 Jass Pepe MD [address] [place] [address] Consulting Physician Orthopedic Surgery 05/20/16 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 Relationship Specialty Start Date End Date Nicol Ibanez MD [address] [place] [address] PCP - General 08/26/11 Jass Pepe MD [address] [place] [address] Consulting Physician Orthopedic Surgery 05/20/16 Team Status: [...] MD Attending Provider, Emergency Provi aleksandar Active 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 Nicol Ibanez MD Family Provider Active Dr. Kirill Newell MD Primary Care Provider Active Team Status: Inactive Member Role Status Dates Dr. Kirill Newell MD Primary Care Provide r, Attending Provider, Referring Provider Active 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 Relationship Specialty Start Date End Date Nicol Ibanez MD [address] [place] [address] PCP - General 08/26/11 Jass Pepe MD [address] [place] [address] Consulting Physician Orthopedic Surgery 05/20/16 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 Relationship Specialty Start Date End Date Nicol Ibanez MD [address] [place] [address] PCP - General 08/26/11 Jass Pepe MD [address] [place] [address] Consulting Physician Orthopedic Surgery 05/20/16 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 Relationship Specialty Start Date End Date Nicol Ibanez MD [address] [place] [address] PCP - General 08/26/11 Jass Pepe MD [address] [place] [address] Consulting Physician Orthopedic Surgery 05/20/16 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 Relationship Specialty Start Date End Date Nicol Ibanez MD [address] [place] [address] PCP - General 08/26/11 Jass Pepe MD [address] [place] [address] Consulting Physician Orthopedic Surgery 05/20/16 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 Relationship Specialty Start Date End Date Nicol Ibanez MD [address] [place] [address] PCP - General 08/26/11 Jass Pepe MD [address] [place] [address] Consulting Physician Orthopedic Surgery 05/20/16 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 Relationship Specialty Start Date End Date Nicol Ibanez MD [address] [place] [address] PCP - General 08/26/11 Jass Pepe MD [address] [place] [address] Consulting Physician Orthopedic Surgery 05/20/16 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 Relationship Specialty Start Date End Date Nicol Ibanez MD [address] [place] [address] PCP - General 08/26/11 Jass Pepe MD [address] [place] [address] Consulting Physician Orthopedic Surgery 05/20/16 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 Relationship Specialty Start Date End Date Nicol Ibanez MD [address] [place] [address] PCP - General 08/26/11 Jass Pepe MD [address] [place] [address] Consulting Physician Orthopedic Surgery 05/20/16 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 Relationship Specialty Start Date End Date Nicol Ibanez MD [address] [place] [address] PCP - General 08/26/11 Jass Pepe MD [address] [place] [address] Consulting Physician Orthopedic Surgery 05/20/16 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 Relationship Specialty Start Date End Date Nicol Ibanez MD [address] [place] [address] PCP - General 08/26/11 Jass Pepe MD [address] [place] [address] Consulting Physician Orthopedic Surgery 05/20/16 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 Relationship Specialty Start Date End Date Nicol Ibanez MD [address] [place] [address] PCP - General 08/26/11 Jass Pepe MD [address] [place] [address] Consulting Physician Orthopedic Surgery 05/20/16 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 Relationship Specialty Start Date End Date Nicol Ibanez MD [address] [place] [address] PCP - General 08/26/11 Jass Pepe MD [address] [place] [address] Consulting Physician Orthopedic Surgery 05/20/16 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 Relationship Specialty Start Date End Date Nicol Ibanez MD [address] [place] [address] PCP - General 08/26/11 Jass Pepe MD [address] [place] [address] Consulting Physician Orthopedic Surgery 05/20/16 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 Relationship Specialty Start Date End Date Nicol Ibanez MD [address] [place] [address] PCP - General 08/26/11 Jass Pepe MD [address] [place] [address] Consulting Physician Orthopedic Surgery 05/20/16 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 Relationship Specialty Start Date End Date Nicol Ibanez MD [address] [place] [address] PCP - General 08/26/11 Jass Pepe MD [address] [place] [address] Consulting Physician Orthopedic Surgery 05/20/16 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 Relationship Specialty Start Date End Date Nicol Ibanez MD [address] [place] [address] PCP - General 08/26/11 Jass Pepe MD [address] [place] [address] Consulting Physician Orthopedic Surgery 05/20/16 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 Relationship Specialty Start Date End Date Nicol Ibanez MD [address] [place] [address] PCP - General 08/26/11 Jass Pepe MD [address] [place] [address] Consulting Physician Orthopedic Surgery 05/20/16 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 Relationship Specialty Start Date End Date Nicol Ibanez MD [address] [place] [address] PCP - General 08/26/11 Jass Pepe MD [address] [place] [address] Consulting Physician Orthopedic Surgery 05/20/16 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 Relationship Specialty Start Date End Date Nicol Ibanez MD [address] [place] [address] PCP - General 08/26/11 Jass Pepe MD [address] [place] [address] Consulting Physician Orthopedic Surgery 05/20/16 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 Relationship Specialty Start Date End Date Nicol Ibanez MD [address] [place] [address] PCP - General 08/26/11 Jass Pepe MD [address], [facility] Consulting Physician Orthopedic Surgery 05/20/16 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 Relationship Specialty Start Date End Date Nicol Ibanez MD [address] [place], [facility] PCP - General 08/26/11 Jass Pepe MD [address], [facility] Consulting Physician Orthopedic Surgery 05/20/16 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 Relationship Specialty Start Date End Date Nicol Ibanez MD [address] [place], [facility] PCP - General 08/26/11 Jass Pepe MD [address] [place] [address] Consulting Physician Orthopedic Surgery 05/20/16 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 Relationship Specialty Start Date End Date Nicol Ibanez MD [address] [place] [address] PCP - General 08/26/11 Jass Pepe MD [address] [place] [address] Consulting Physician Orthopedic Surgery 05/20/16 Team Status: Active Member Role/Relationship Status Dates Dr. Kirill Newell MD Primary Care Provider Active Team Status: Active Member Role/Relationship Status Dates Dr. Kirill Newell MD Primary Care Provider Active Start: May 30, 2025 Dr. Remy Rai DO Emergency Provider Active Start: May 30, 2025 Dr. Nicol Silva DO Admit Provider Active Start: May 30, 2025 Dr. Nicol Silva DO Attending Provider Active Start: May 30, 2025 Scheduled Active and Recently Administ ered Medications (unrecognized section and content) Medication Order 01/20/2022 01/21/2022 01/22/2022 acetaminophen (TYLENOL ER) extended-release tablet 1,300 mg (COMPLETED) 1,300 mg, Oral, Once, On Thu01/21/22 at 0815, For 1 dose, Pre-Procedure 0849 (Given - Provider: Holley Maldonado, JERRY) albuterol (PROVENTIL) 2.5 mg /3 mL (0.083 [...] OR CHEW. 1744 (Given - Provider: Myla Hubbard, JERRY) ceFAZolin (ANCEF) IVPB 2 g (premix) (COMPLETED) 2,000 mg, Intravenous, at 100 mL/hr, Once, On Thu01/21/22 at 0815, For 1 dose, Pre-Procedure, Initiate within 60 minutes prior to incision., Indication (PRE PROCEDURE): Cardiothoracic 1040 (Given - Provider: Abigalle Sparrow) ceFAZolin (ANCEF) IVPB 2 g (premix) (COMPLETED) 2,000 mg, Intravenous, at 100 mL/hr, Every 8 hours, First dose on Thu01/21/22 at 1900, For 3 doses, PACU to Post Procedure, Indication: Other (specify), Indication: s/p TAVR 2014 (New Bag - Provider: Gaby Evans RN)2044 (Stopped - Provider: Gaby Evasn RN) 041 (New Bag - Provider: Gaby Evans RN)0444 [...] patient refuses. 1744 (Given - Provider: Myla Hubbard, JERRY)2203 (Given - Provider: Gaby Evans, JERRY) 0532 (Given - Provider: Gaby Evans RN) [...] OR CHEW. 0849 (Given - Provider: Holley Maldonado RN) pantoprazole (PROTONIX) EC tablet 40 mg 40 mg, Oral, Daily, First dose on Thu01/21/22 at 1730, PACU to Post Procedure, DO NOT CRUSH OR CHEW. 174 (Given - Provider: Myla Hubbard RN) 08 (Given - Provider: Lisa Guzmán RN) potassium chloride SA (K-DUR,KLOR-CON) CR tablet [...] Thu01/21/22 at 2100, PACU to Post Procedure 2016 (Given - Provider: Gaby Evans, JERRY) senna-docusate (SENNA-S) 8.6-50 mg per tablet 1 tablet 1 tablet, Oral, 2 times daily, First dose on Thu01/21/22 at 2100, PACU to Post Procedure, NOT for abdominal surgery patients. Hold for loose stools. Do Not Crush or Chew if administering orally due to bitter taste. May be crushed if given via tube. 2015 (Given - Provider: Gaby Evans RN) 08 (Given - Provider: Lisa Guzmán, JERRY) sodium chloride (PF) (NS) flush 5 mL(Linked Group 1) 5 mL, Intravenous, Every 8 hours scheduled, First dose on Thu01/21/22 at 1730, PACU to Post Procedure, Saline lock 1748 (Given - Provider: Myla Hubbard, JERRY)2203 (Given - Provider: Gaby Evans, RN) 0534 (Given - Provider: Gaby Evans, JERRY) Continuous Medication Order 01/20/2022 01/21/2022 01/22/2022 sodium [...] Post Procedure 2213 (Given - Provider: Gaby Evans, JERRY) albuterol inhaler 2 puff 2 puff, Inhalation, [...] 2013 (New Bag - Provider: Gaby Evans RN)204 (Rate/Dose Verify - Provider: Gaby Evans RN)2211 (Stopped - Provider: Gaby Evans RN) 0410 (Restarted - Provider: Gaby Evans RN)0412 (Rate/Dose Verify - Provider: Gaby Evans RN)0444 (Rate/Dose Verify - Provider: Gaby Evans RN)0523 (Stopped - Provider: Gaby Evans RN)1004 (Restarted - Provider: Lisa Guzmán RN)1006 (Stopped - Provider: Lisa Guzmán RN) sodium chloride 0.9% (NS) 25 mL/hr, Intravenous, As needed, lines, Starting on Thu01/21/22 at 1636, PACU (only), Arterial and [place] Annetta Lines at 300 mmHg 1738 (Canceled [...] BE BASED ON THE PRIMARY CLINICAL RECORDS. [facility] [employer] [facility]. provides no warranty or guarantee of the accuracy or completeness of information in this document.
--- OUTSIDE RECORDS SUMMARY | 2025-05-30 05:18 | XMS RPT_ITS | CCD ---
Author Organization [facility]ini[employer]ak Care Team Providers Care [facility] Economic Liaison Name Role Phone Nicol Ibanez Unavailable Unavailable Jass Pepe Unavailable [phone] Blaine Silveira Unavailable Unavailable Blaine Silveira Unavailable Unavailable Nicol Ibanez Primary Care Provider Jass Pepe Unavailable Nicol Ibanez Primary Care Provider Jass Pepe Unavailable Nicol Ibanez MD Primary Care Provider [phone] Jass Pepe MD Unavailable Nicol Ibanez MD Primary Care Provider Jass Pepe MD Unavailable Aida, Robert Lynne Attending Unavailable Fanning, Robert Lynne Attending Unavailable Fanning, Robert Lynne Attending Unavailable Fanning, Robetr Lynne Attending Unavailable Fanning, Robert Lynne Attending [...] TOMCHAK, NICOL OSBORN Primary Care Unavailable JASS EPPE Referring Unavailab le BATOOL KAMARA Attending Unavailable [...] Kirill Referring Unavailable Cristhian Coleman Attending Unavailable Recee, Kirill Primary Care Unavailable Reece, Kirill Attending Unavailable Reece, Kirill Referring Unavailable Kirill Newell Attending Unavailable Reece, Kirill Referring Unavailable Newell, Kirill Primary Care Unavailable Reece HARPER, Dr. Valdez Primary Care Provider [phone] Dr. Remy Rai DO Emergency Provider Dr. Nicol Silva DO Admit Provider Unavail able Dr. Nicol Silva DO Attending Provider Unav ailable Allergies Allergy Classification Reported Allergen(s) Allergy Type Date of Onset Reaction(s) Facility NSAIDs (4 sources) Naproxen Drug Allergy 5 [facility] Quinolones (antibiotic) (4 sources) levoFLOXacin Drug Allergy [address] [place] [address] (20 sources) levoFLOXacin; Translations: [LEVOFLOXACIN] Propensity to adverse reactions to drug [address] [place] [address] Work Phone: (20 sources) naproxen; Translations: [NAPROXEN] Propensity to adverse reactions to drug 5 [facility] Work Phone: (1 source) ALLERGIES NOT ON FILE; Translations: [ALLERGIES NOT ON FILE] Propensity to adverse reactions (disorder) [facility] 2 Repository (1 source) Naproxen Drug Allergy 3 [facility] Repository Medications Current Medications Medication Drug [...] 29, 2018 1:00am March 16, 2018 9:23am QEFIRWZ-JOJBUSTTB-OWBT ORAL (20 sources) take 1 tablet by mouth once daily SUMQQCR-GDCXGHVVG-MUPU ORAL Take 1 tablet by mouth daily . 0 take 1 tablet by mouth once umm y PGMOXAH-ZFHHSBPON-AXCF ORAL Take 1 tablet by mouth daily . 0 Suspended take 1 tablet by mouth once umm y KQNPGNN-GIKKQLRAV-RHQP ORAL Take 1 tablet by mouth daily . 0 Active take 1 tablet by mouth twice erinn ly KVKQVIY-FDOWXRZGL-IGJL ORAL Take 1 tablet by mouth 2 [...] spray (1 source) Anticholinergic Start: 05-29-2025 Ipratropium [place] 21 mcg (0.03 %) spray,non-aerosol Active INTRANASAL [...] (two) times a day . 0 Active [id number] 200 actuat albuterol 0.09 mg/actuat metered dose [...] route twice daily azelastine-fluticasone (DYMISTA) 137-50 mcg/spray [place] Instill 1 spray into each nostril 2 [...] 02/05/2024 docusate sodium 50 mg / sennosides, correction 8.6 mg oral tablet (1 source) Start: [...] 01-22-2022 naloxone (NARCAN) injection 0.1 mg nystatin [id number] unt/ml oral suspension (16 sources) Polyene Antifungal Start: 08-10-2018 End: 02-28-2019 take [id number] [IU] by mouth three times daily Nystatin 100,000 unit/mL suspension Discontinued [id number] U PO THREE TIMES A DAY 60 [...] 0-10 mL of mixture polyethylene glycol 3350 25381 mg powder for oral solution (10 sources) [...] End: 01-21-2022 sodium chloride 0.9% (NS) Tiotropium [place] (8 sources) Anticholinergic Start: 12-22-2017 End: 12-22-2017 take 2.5 ug by inhalation once daily Tiotropium [place] (Spiriva Respimat) 2.5 mcg/actuation mist Discontinued 2 NMA INHALATION daily December 22, 2017 1:00am December 22, 2017 11:44am Start: 12-22-2017 End: 12-22-2017 take 1 puff(s) by inhalation once daily Tiotropium [place] (Spiriva Respimat) 2.5 mcg/actuation mist Discontinued 2 PUFF INHALATION daily December 22, 2017 12:00am December 22, 2017 10:44am Start: 12-22-2017 End: 12-22-2017 take 1 puff(s) by inhalation once daily Tiotropium [place] (Spiriva Respimat) 2.5 mcg/actuation mist Discontinued 2 [...] heart disease (20 sources) 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[place] artery; Translations: [Atherosclerotic heart disease of [place] coronary artery without angina pectoris] Onset: 11-05-2015 [...] Auto (Unsp spec) [#/Vol] 2.26 10*3/uL 0.83-4.51 [facility] Absolute neutrophil countOrd ered By: Remy Rai on 05-30-2025 Neutrophils (Bld) [#/Vol] 5.7 10*3/uL 2.0-7.7 [facility] Anion gap in Serum or Plasma Ordered By: Remy Rai on 05-30-2025 Anion gap [Moles/Vol] 12 mmol/L 5-15 [facility] Automated lymphocyte count a s percentage of total leukocytesOrdered By: Remy Rai on 05-30-2025 Lymphocytes/100 WBC Auto (Unsp spec) 24.9 % 19-41 [facility] BUN/creatinine ratioOrdered By: Remy Rai on 05-30-2025 Urea nitrogen/Creatinine [Mass ratio] 19.0 mg/mg 10-20 [facility] Basophil percentageOrdered B y: Remy Rai on 05-30-2025 Basophils/100 WBC (Bld) 0.4 % 0-1 [facility] Carbon dioxide, total [Moles /volume] in Central venous bloodOrdered By: Remy Rai on 05-30-2025 CO2 [Moles/Vol] 23.9 mmol/L 21.0-32.0 [facility] Chloride assayOrdered By: Polina Rai on 05-30-2025 Chloride [Moles/Vol] 103 mmol/L 98-108 [facility] Eosinophil percentageOrdered By: Remy Rai on 05-30-2025 Eosinophils/100 WBC (Bld) 2.9 % 0-5 [facility] Erythrocyte distribution wid th ratioOrdered By: Remy Rai on 05-30-2025 Erythrocyte distribution width (RBC) [Ratio] 14.8 % High 11.6-14.6 [facility] Erythrocyte distribution wid th standard deviationOrdered By: Remy Rai on 05-30-2025 Erythrocyte distribution width (RBC) [Ratio] 47.8 fl High 35.1-43.9 [facility] Glomerular filtration rate ( GFR) estimation/1.73 sq m using serum, plasma, or whole bOrdered By: Remy Rai on 05-30-2025 GFR/1.73 sq M.predicted among non-blacks MDRD (S/P/Bld) [Vol rate/Area] 72 mL/min/{1.73_m2} >60 [facility] Comment on above: mL/min/1.73m2 CKD-EP I Creatinine Equation (2020) Hematocrit Auto (Bld) [Volum e fraction]Ordered By: Remy Rai on 05-30-2025 Hematocrit (Bld) [Volume fraction] 37.5 % 37-47 [facility] Hemoglobin measurementOrdere d By: Remy Rai on 05-30-2025 Hemoglobin (Bld) [Mass/Vol] 12.4 g/dL 12.0-15.0 [facility] Immature granulocytes/100 WB C Auto (Bld)Ordered By: Remy Rai on 05-30-2025 Immature granulocytes/100 WBC (Bld) 0.300 % 0.0-0.9 [facility] Comment on above: IG% - Immature Granu locytes (promyelocytes, myelocytes and metamyelocytes) > 1% indicates that a LEFT SHIFT is Present. MCV (mean corpuscular volume ) determinationOrdered By: Remy Rai on 05-30-2025 MCV (RBC) [Entitic vol] 88.2 fL 81-99 [facility] Magnesium measurement (mass/ volume)Ordered By: Remy Rai on 05-30-2025 Magnesium (Unsp spec) [Mass/Vol] 2.0 mg/dL 1.5-2.2 [facility] Mean corpuscular hemoglobin (MCH) determinationOrdered By: Remy Rai on 05-30-2025 MCH (RBC) [Entitic mass] 29.2 pg 27.0-32.0 [facility] Mean corpuscular hemoglobin concentration (MCHC) determinationOrdered By: Remy Rai on 05-30-2025 MCHC (RBC) [Mass/Vol] 33.1 g/dL 32-36 [facility] Mean platelet volume determi nationOrdered By: Remy Rai on 05-30-2025 Platelet mean volume (Bld) [Entitic vol] 11.4 fL 6.2-12.0 [facility] Monocyte percentageOrdered B y: Remy Rai on 05-30-2025 Monocytes/100 WBC (Bld) 8.3 % 0-10 [facility] Neutrophil percentageOrdered By: Remy Rai on 05-30-2025 Neutrophils/100 WBC (Bld) 63.2 % 47-70 [facility] Nucleated red blood cell per centageOrdered By: Remy Rai on 05-30-2025 Nucleated RBC/100 WBC (Bld) [Ratio] 0 % 0-5 [facility] Platelet countOrdered By: Polina Rai on 05-30-2025 Platelets (Bld) [#/Vol] 223 10*3/uL 150-450 [facility] Potassium measurement (mass/ volume)Ordered By: Remy Rai on 05-30-2025 Potassium (Unsp spec) [Mass/Vol] 3.9 mmol/L 3.3-5.1 [facility] RBC Auto (Bld) [#/Vol]Ordere d By: Remy Rai on 05-30-2025 RBC (Bld) [#/Vol] 4.25 10*6/uL 4.2-5.4 [facility] Serum creatinine measurement (mass/volume)Ordered By: Remy Rai on 05-30-2025 Creatinine [Mass/Vol] 0.86 mg/dL 0.70-1.20 [facility] Serum glucose measurement (m ass/volume)Ordered By: Remy Rai on 05-30-2025 Glucose [Mass/Vol] 105 mg/dL High 70-99 [facility] Serum or plasma calcium erasmo urement (mass/volume)Ordered By: Remy Rai on 05-30-2025 Calcium [Mass/Vol] 9.4 mg/dL 7.6-11.0 [facility] Serum or plasma urea nitroge n measurement (mass/volume)Ordered By: Remy Rai on 05-30-2025 Urea nitrogen [Mass/Vol] 16 mg/dL 4-19 [facility] Sodium levelOrdered By: Dev Rai on 05-30-2025 Sodium [Moles/Vol] 138 mmol/L 133-145 [facility] TSH DL <= 0.005 mIU/L QnOrde red By: Remy Rai on 05-30-2025 TSH Qn 3.020 uIU/mL 0.300-4.200 [facility] White blood cell (WBC) count Ordered By: Remy Rai on 05-30-2025 WBC (Bld) [#/Vol] 9.1 10*3/uL 4.4-11.0 [facility] CBC W/Diff, Automatedon 12-01 Absolute Lymph 1.60 X10 3/uL Normal 0.83-4.51 [facility] Comment on above: Order Comment: Order Date: 12/13/24 Order Info: [id number] - CBCD Order Info: [id number] - SED Performed By: #### L 100.0100, L500.4050, L502.0250, L506.1000, L500.4100, L501.9520, L501.9985, L509.1000, L101.9900 #### [facility] [address] [place], [place], [id number] Absolute Neut 3.8 X10 3/uL Normal 2.0-7.7 [facility] Comment on above: Order Comment: Order Date: 12/13/24 Order Info: [id number] - CBCD Order Info: [id number] - SED Performed By: #### L 100.0100, L500.4050, L502.0250, L506.1000, L500.4100, L501.9520, L501.9985, L509.1000, L101.9900 #### [facility] [address] [place], [address] Basophils/100 WBC (Bld) 0.7 % Normal 0-1 [facility] Comment on above: Order Comment: Order Date: 12/13/24 Order Info: [id number] - CBCD Order Info: [id number] - SED Performed By: #### L 100.0100, L500.4050, L502.0250, L506.1000, L500.4100, L501.9520, L501.9985, L509.1000, L101.9900 #### [facility] [address] [place], [place], [id number] (291) Eosinophils/100 WBC (Bld) 3.0 % Normal 0-5 [facility] Comment on above: Order Comment: Order Date: 12/13/24 Order Info: 0184- - CBCD Order Info: [id number] - SED Performed By: #### L 100.0100, L500.4050, L502.0250, L506.1000, L500.4100, L501.9520, L501.9985, L509.1000, L101.9900 #### [facility] [address] [place], [place], [id number] (993) Erythrocyte distribution width (RBC) [Ratio] 14.6 % Normal 11.6-14.6 [facility] Comment on above: Order Comment: Order Date: 12/13/24 Order Info: 0184-1 - CBCD Order Info: [id number] - SED Performed By: #### L 100.0100, L500.4050, L502.0250, L506.1000, L500.4100, L501.9520, L501.9985, L509.1000, L101.9900 #### [facility] [address] [place], [address] Hematocrit (Bld) [Volume fraction] 36.5 % Low 37-47 [facility] Comment on above: Order Comment: Order Date: 12/13/24 Order Info: 018- - CBCD Order Info: [id number] - SED Performed By: #### L 100.0100, L500.4050, L502.0250, L506.1000, L500.4100, L501.9520, L501.9985, L509.1000, L101.9900 #### [facility] [address] [place], [address] ( Hemoglobin (Bld) [Mass/Vol] 11.6 g/dL Low 12.0-15.0 [facility] Comment on above: Order Comment: Order Date: 12/13/24 Order Info: 018- - CBCD Order Info: [id number] - SED Performed By: #### L 100.0100, L500.4050, L502.0250, L506.1000, L500.4100, L501.9520, L501.9985, L509.1000, L101.9900 #### [facility] [address] [place], [address] (676) IG% 0.300 Normal 0.0-0.9 [facility] Comment on above: Order Comment: Order Date: 12/13/24 Order Info: 018- - CBCD Order Info: [id number] - SED Result Comment: IG% - Immature Granulocytes (promyelocytes, myelocytes and metamyelocytes) > 1% indicates that a LEFT SHIFT is Present. Performed By: #### L 100.0100, L500.4050, L502.0250, L506.1000, L500.4100, L501.9520, L501.9985, L509.1000, L101.9900 #### [facility] [address] [place], [address] Lymphocytes/100 WBC (Bld) 26.8 % Normal 19-41 [facility] Comment on above: Order Comment: Order Date: 12/13/24 Order Info: 183-11 - CBCD Order Info: [id number] - SED Performed By: #### L 100.0100, L500.4050, L502.0250, L506.1000, L500.4100, L501.9520, L501.9985, L509.1000, L101.9900 #### [facility] [address] [place], [address] MCH (RBC) [Entitic mass] 29.0 pg Normal 27.0-32.0 [facility] Comment on above: Order Comment: Order Date: 12/13/24 Order Info: 183-11 - CBCD Order Info: [id number] - SED Performed By: #### L 100.0100, L500.4050, L502.0250, L506.1000, L500.4100, L501.9520, L501.9985, L509.1000, L101.9900 #### [facility] [address] [place], [address] MCHC (RBC) [Mass/Vol] 31.8 g/dL Low 32-36 [facility] Comment on above: Order Comment: Order Date: 12/13/24 Order Info: 183-11 - CBCD Order Info: [id number] - SED Performed By: #### L 100.0100, L500.4050, L502.0250, L506.1000, L500.4100, L501.9520, L501.9985, L509.1000, L101.9900 #### [facility] [address] [place], [address] MCV (RBC) [Entitic vol] 91.3 fL Normal 81-99 [facility] Comment on above: Order Comment: Order Date: 12/13/24 Order Info: [id number] - CBCD Order Info: [id number] - SED Performed By: #### L 100.0100, L500.4050, L502.0250, L506.1000, L500.4100, L501.9520, L501.9985, L509.1000, L101.9900 #### [facility] [address] [place], [address] Monocytes/100 WBC (Bld) 6.2 % Normal 0-10 [facility] Comment on above: Order Comment: Order Date: 12/13/24 Order Info: [id number] - CBCD Order Info: [id number] - SED Performed By: #### L 100.0100, L500.4050, L502.0250, L506.1000, L500.4100, L501.9520, L501.9985, L509.1000, L101.9900 #### [facility] [address] [place], [address] Neutrophils/100 WBC (Bld) 63.0 % Normal 47-70 [facility] Comment on above: Order Comment: Order Date: 12/13/24 Order Info: 0184- - CBCD Order Info: [id number] - SED Performed By: #### L 100.0100, L500.4050, L502.0250, L506.1000, L500.4100, L501.9520, L501.9985, L509.1000, L101.9900 #### [facility] [address] [place], [address] Nucleated RBC (Bld) [#/Vol] 0 10*3/uL Normal 0-5 [facility] Comment on above: Order Comment: Order Date: 12/13/24 Order Info: 0184-1 - CBCD Order Info: [id number] - SED Performed By: #### L 100.0100, L500.4050, L502.0250, L506.1000, L500.4100, L501.9520, L501.9985, L509.1000, L101.9900 #### [facility] [address] [place], [address] Platelet mean volume (Bld) [Entitic vol] 11.8 fL Normal 6.2-12.0 [facility] Comment on above: Order Comment: Order Date: 12/13/24 Order Info: [id number] - CBCD Order Info: [id number] - SED Performed By: #### L 100.0100, L500.4050, L502.0250, L506.1000, L500.4100, L501.9520, L501.9985, L509.1000, L101.9900 #### [facility] [address] [place], [address] Platelets (Bld) [#/Vol] 201 10*3/uL Normal 150-450 [facility] Comment on above: Order Comment: Order Date: 12/13/24 Order Info: 018- - CBCD Order Info: [id number] - SED Performed By: #### L 100.0100, L500.4050, L502.0250, L506.1000, L500.4100, L501.9520, L501.9985, L509.1000, L101.9900 #### [facility] [address] [place], [address] RBC (Bld) [#/Vol] 4.00 10*6/uL Low 4.2-5.4 [facility] Comment on above: Order Comment: Order Date: 12/13/24 Order Info: 0184- - CBCD Order Info: [id number] - SED Performed By: #### L 100.0100, L500.4050, L502.0250, L506.1000, L500.4100, L501.9520, L501.9985, L509.1000, L101.9900 #### [facility] [address] [place], [address] RDW SD 47.9 fl High 35.1-43.9 [facility] Comment on above: Order Comment: Order Date: 12/13/24 Order Info: 0184- - CBCD Order Info: [id number] - SED Performed By: #### L 100.0100, L500.4050, L502.0250, L506.1000, L500.4100, L501.9520, L501.9985, L509.1000, L101.9900 #### [facility] [address] [place], [address] WBC (Bld) [#/Vol] 6.0 10*3/uL Normal 4.4-11.0 [facility] Comment on above: Order Comment: Order Date: 12/13/24 Order Info: [id number] - CBCD Order Info: [id number] - SED Performed By: #### L 100.0100, L500.4050, L502.0250, L506.1000, L500.4100, L501.9520, L501.9985, L509.1000, L101.9900 #### [facility] [address] [place], [address] Comprehensive Metabolic Prof ilon 12-19-2024 Albumin [Mass/Vol] 3.1 g/dL Low 3.2-5.0 [facility] Comment on above: Order Comment: Order Date: 12/13/24 Order Info: [id number] - CMP Order Info: [id number] - LIPID Order Info: [id number] - TSH Performed By: #### L 100.0100, L500.4050, L502.0250, L506.1000, L500.4100, L501.9520, L501.9985, L509.1000, L101.9900 #### [facility] [address] [place], [address] Albumin/Globulin [Mass ratio] 0.7 {ratio} Low 0.9-2.4 [facility] Comment on above: Order Comment: Order Date: 12/13/24 Order Info: [id number] - CMP Order Info: [id number] - LIPID Order Info: [id number] - TSH Performed By: #### L 100.0100, L500.4050, L502.0250, L506.1000, L500.4100, L501.9520, L501.9985, L509.1000, L101.9900 #### [facility] [address] [place], [address] ALK P 119 U/L High 45-117 [facility] Comment on above: Order Comment: Order Date: 12/13/24 Order Info: [id number] - CMP Order Info: [id number] - LIPID Order Info: [id number] - TSH Performed By: #### L 100.0100, L500.4050, L502.0250, L506.1000, L500.4100, L501.9520, L501.9985, L509.1000, L101.9900 #### [facility] [address] [place], [address] ALT [Catalytic activity/Vol] 24 U/L Normal 13-56 [facility] Comment on above: Order Comment: Order Date: 12/13/24 Order Info: [id number] - CMP Order Info: [id number] - LIPID Order Info: [id number] - TSH Performed By: #### L 100.0100, L500.4050, L502.0250, L506.1000, L500.4100, L501.9520, L501.9985, L509.1000, L101.9900 #### [facility] [address] [place], [place], [address] [phone] [Catalytic activity/Vol] 24 U/L Normal 15-37 [facility] Comment on above: Order Comment: Order Date: 12/13/24 Order Info: [id number] - CMP Order Info: [id number] - LIPID Order Info: [id number] - TSH Performed By: #### L 100.0100, L500.4050, L502.0250, L506.1000, L500.4100, L501.9520, L501.9985, L509.1000, L101.9900 #### [facility] [address] [place], [address] Bilirubin [Mass/Vol] 0.70 mg/dL Normal 0.20-1.00 [facility] Comment on above: Order Comment: Order Date: 12/13/24 Order Info: [id number] - CMP Order Info: [id number] - LIPID Order Info: [id number] - TSH Result Comment: For patients on eltrombopag therapy, use of Dimension Qulin TBIL is not recommended. Performed By: #### L 100.0100, L500.4050, L502.0250, L506.1000, L500.4100, L501.9520, L501.9985, L509.1000, L101.9900 #### [facility] [address] [place], [address] BUN/CRE 18.9 RATIO Normal 10-20 [facility] Comment on above: Order Comment: Order Date: 12/13/24 Order Info: 0786- - CMP Order Info: [id number] - LIPID Order Info: 3 - TSH Performed By: #### L 100.0100, L500.4050, L502.0250, L506.1000, L500.4100, L501.9520, L501.9985, L509.1000, L101.9900 #### [facility] [address] [place], [address] CA,Total 9.1 mg/dL Normal 8.5-10.1 [facility] Comment on above: Order Comment: Order Date: 12/13/24 Order Info: [id number] - CMP Order Info: [id number] - LIPID Order Info: [id number] - TSH Performed By: #### L 100.0100, L500.4050, L502.0250, L506.1000, L500.4100, L501.9520, L501.9985, L509.1000, L101.9900 #### [facility] [address] [place], [address] Chloride [Moles/Vol] 107 mmol/L Normal 98-107 [facility] Comment on above: Order Comment: Order Date: 12/13/24 Order Info: [id number] - CMP Order Info: [id number] - LIPID Order Info: [id number] - TSH Performed By: #### L 100.0100, L500.4050, L502.0250, L506.1000, L500.4100, L501.9520, L501.9985, L509.1000, L101.9900 #### [facility] [address] [place], [address] CO2 [Moles/Vol] 28.0 mmol/L Normal 21.0-32.0 [facility] Comment on above: Order Comment: Order Date: 12/13/24 Order Info: 0786- - CMP Order Info: [id number] - LIPID Order Info: [id number] - TSH Performed By: #### L 100.0100, L500.4050, L502.0250, L506.1000, L500.4100, L501.9520, L501.9985, L509.1000, L101.9900 #### [facility] [address] [place], [place], [address] Creatinine [Mass/Vol] 0.85 mg/dL Normal 0.55-1.02 [facility] Comment on above: Order Comment: Order Date: 12/13/24 Order Info: [id number] - CMP Order Info: [id number] - LIPID Order Info: [id number] - TSH Result Comment: The validity of the calculated GFR GFRAA in patients over 70 years has not been determined. Clinical correlation is essential. Performed By: #### L 100.0100, L500.4050, L502.0250, L506.1000, L500.4100, L501.9520, L501.9985, L509.1000, L101.9900 #### [facility] [address] [place], [address] EST GFR - AA 85 mL/min Normal >60 [facility] Comment on above: Order Comment: Order Date: 12/13/24 Order Info: [id number] - CMP Order Info: [id number] - LIPID Order Info: [id number] - TSH Result Comment: Afri can Kyr[place] GFR Calc Performed By: #### L 100.0100, L500.4050, L502.0250, L506.1000, L500.4100, L501.9520, L501.9985, L509.1000, L101.9900 #### [facility] [address] [place], [address] GAP 2 Low 5-15 [facility] Comment on above: Order Comment: Order Date: 12/13/24 Order Info: 07 - CMP Order Info: [id number] - LIPID Order Info: [id number] - TSH Performed By: #### L 100.0100, L500.4050, L502.0250, L506.1000, L500.4100, L501.9520, L501.9985, L509.1000, L101.9900 #### [facility] [address] [place], [place], [id number] [phone] GFR/1.73 sq M.predicted among non-blacks MDRD (S/P/Bld) [Vol rate/Area] 71 mL/min/{1.73_m2} Normal >60 [facility] Comment on above: Order Comment: Order Date: 12/13/24 Order Info: 0786- - CMP Order Info: [id number] - LIPID Order Info: [id number] - TSH Result Comment: Non- GFR Calc Performed By: #### L 100.0100, L500.4050, L502.0250, L506.1000, L500.4100, L501.9520, L501.9985, L509.1000, L101.9900 #### [facility] [address] [place], [place], [address] Globulin (S) [Mass/Vol] 4.6 g/dL High 2.2-4.2 [facility] Comment on above: Order Comment: Order Date: 12/13/24 Order Info: [id number] - CMP Order Info: [id number] - LIPID Order Info: [id number] - TSH Performed By: #### L 100.0100, L500.4050, L502.0250, L506.1000, L500.4100, L501.9520, L501.9985, L509.1000, L101.9900 #### [facility] [address] [place], [address] Glucose [Mass/Vol] 96 mg/dL Normal 74-106 [facility] Comment on above: Order Comment: Order Date: 12/13/24 Order Info: [id number]- - CMP Order Info: - LIPID Order Info: 3 - TSH Performed By: #### L 100.0100, L500.4050, L502.0250, L506.1000, L500.4100, L501.9520, L501.9985, L509.1000, L101.9900 #### [facility] [address] [place], [address] Potassium [Moles/Vol] 4.3 mmol/L Normal 3.5-5.1 [facility] Comment on above: Order Comment: Order Date: 12/13/24 Order Info: [id number] - CMP Order Info: [id number] - LIPID Order Info: 3 - TSH Performed By: #### L 100.0100, L500.4050, L502.0250, L506.1000, L500.4100, L501.9520, L501.9985, L509.1000, L101.9900 #### [facility] [address] [place], [address] Sodium [Moles/Vol] 137 mmol/L Normal 136-145 [facility] Comment on above: Order Comment: Order Date: 12/13/24 Order Info: [id number] - CMP Order Info: [id number] - LIPID Order Info: 3 - TSH Performed By: #### L 100.0100, L500.4050, L502.0250, L506.1000, L500.4100, L501.9520, L501.9985, L509.1000, L101.9900 #### [facility] [address] [place], [place], [id number] T PROT 7.7 g/dL Normal 6.4-8.2 [facility] Comment on above: Order Comment: Order Date: 12/13/24 Order Info: [id number] - CMP Order Info: [id number] - LIPID Order Info: [id number] - TSH Performed By: #### L 100.0100, L500.4050, L502.0250, L506.1000, L500.4100, L501.9520, L501.9985, L509.1000, L101.9900 #### [facility] [address] [facility] [place], [address] Urea nitrogen [Mass/Vol] 16 mg/dL Normal 7-18 [facility] Comment on above: Order Comment: Order Date: 12/13/24 Order Info: [id number] - CMP Order Info: [id number] - LIPID Order Info: [id number] - TSH Performed By: #### L 100.0100, L500.4050, L502.0250, L506.1000, L500.4100, L501.9520, L501.9985, L509.1000, L101.9900 #### [facility] [address] [place], [place], [id number] Erythrocyte Sed Rateon 12-19 SED RATE 37 mm/hr High 0-30 [facility] Comment on above: Order Comment: Order Date: 12/13/24 Order Info: [id number] - CBCD Order Info: [id number] - SED Performed By: #### L 100.0100, L500.4050, L502.0250, L506.1000, L500.4100, L501.9520, L501.9985, L509.1000, L101.9900 #### [facility] [address] [place], [place], [address] Hemoglobin A1con 12-19-2024 HbA1c (Bld) [Mass fraction] 5.9 % High 3.8-5.6 [facility] Comment on above: Order Comment: Order Date: 12/13/24 Order Info: [id number] - A1C Result Comment: Norm al < 5.7 % Prediabetic 5.7 - 6.4 % Diabetic >or= 6.5 % Please note range changes. Performed By: #### L 100.0100, L500.4050, L502.0250, L506.1000, L500.4100, L501.9520, L501.9985, L509.1000, L101.9900 #### [facility] [address] [place], [place], [id number] Lipid Profileon 12-19-2024 Cholesterol [Mass/Vol] 150 mg/dL Normal 200 [facility] Comment on above: Order Comment: Order Date: 12/13/24 Order Info: [id number] - CMP Order Info: [id number] - LIPID Order Info: [id number] - TSH Result Comment: <200 mg/dL Desirable 200-240 mg/dL Borderline >240 mg/dL High Risk Performed By: #### L 100.0100, L500.4050, L502.0250, L506.1000, L500.4100, L501.9520, L501.9985, L509.1000, L101.9900 #### [facility] [address] [place], [place], [id number] Cholesterol in HDL [Mass/Vol] 73 mg/dL Normal [facility] Comment on above: Order Comment: Order Date: 12/13/24 Order Info: [id number] - CMP Order Info: [id number] - LIPID Order Info: [id number] - TSH Result Comment: The drugs N-Acetylcysteine and Metamizole may falsely depress this assay. Reference Range HDL <40 mg/dL Low HDL Cholesterol HDL >or= 60 mg/dL High HDL Cholesterol Performed By: #### L 100.0100, L500.4050, L502.0250, L506.1000, L500.4100, L501.9520, L501.9985, L509.1000, L101.9900 #### [facility] [address] [place], [address] Cholesterol in LDL [Mass/Vol] 62 mg/dL Normal 0-130 [facility] Comment on above: Order Comment: Order Date: 12/13/24 Order Info: [id number] - CMP Order Info: [id number] - LIPID Order Info: [id number] - TSH Performed By: #### L 100.0100, L500.4050, L502.0250, L506.1000, L500.4100, L501.9520, L501.9985, L509.1000, L101.9900 #### [facility] [address] [place], [place], [id number] (580) Cholesterol in VLDL [Mass/Vol] 15 mg/dL Normal 5-40 [facility] Comment on above: Order Comment: Order Date: 12/13/24 Order Info: [id number] - CMP Order Info: [id number] - LIPID Order Info: [id number] - TSH Performed By: #### L 100.0100, L500.4050, L502.0250, L506.1000, L500.4100, L501.9520, L501.9985, L509.1000, L101.9900 #### [facility] [address] [place], [address] Triglyceride [Mass/Vol] 75 mg/dL Normal [facility] Comment on above: Order Comment: Order Date: 12/13/24 Order Info: [id number] - CMP Order Info: [id number] - LIPID Order Info: [id number] - TSH Result Comment: The drugs N-Acetylcysteine and Metamizole may falsely depress this assay. Serum Triglycerides Reference Interval Normal <150 mg/dL Borderline high 150 - 199 mg/dL High 200 - 499 mg/dL Very High > or = 500 mg/dL Performed By: #### L 100.0100, L500.4050, L502.0250, L506.1000, L500.4100, L501.9520, L501.9985, L509.1000, L101.9900 #### [facility] [address] [place], [address] Microalb:Creat Ratio,Random URon 12-19-2024 Creatinine [Mass/Vol] 71.60 mg/dL Normal NO RAN GE EST. [facility] Comment on above: Order Comment: Order Date: 12/13/24 Order Info: [id number] - MIACRE Performed By: #### L 100.0100, L500.4050, L502.0250, L506.1000, L500.4100, L501.9520, L501.9985, L509.1000, L101.9900 #### [facility] [address] [place], [place], [id number] ([phone]) MALB:CRE 27.8 mg/g CRE Normal <30 mg/g CRE [facility] Comment on above: Order Comment: Order Date: 12/13/24 Order Info: [id number] - MIACRE Performed By: #### L 100.0100, L500.4050, L502.0250, L506.1000, L500.4100, L501.9520, L501.9985, L509.1000, L101.9900 #### [facility] [address] [place], [address] MICROALBUMIN,UR 19.9 mg/L Normal NO RANGE EST. [facility] Comment on above: Order Comment: Order Date: 12/13/24 Order Info: [id number] - MIACRE Performed By: #### L 100.0100, L500.4050, L502.0250, L506.1000, L500.4100, L501.9520, L501.9985, L509.1000, L101.9900 #### [facility] [address] [place], [place], [phone] PTHINon 12-19-2024 PTH 54.7 pg/mL Normal 18.4-80.1 [facility] Comment on above: Order Comment: Order Date: 12/13/24 Order Info: [id number] - PTHIN Performed By: #### L 100.0100, L500.4050, L502.0250, L506.1000, L500.4100, L501.9520, L501.9985, L509.1000, L101.9900 #### [facility] [address] [place], [address] Thyroid Stim Hormone (TSH)on 12-19-2024 TSH 2.030 uIU/mL Normal 0.358-3.740 [facility] Comment on above: Order Comment: Order Date: 12/13/24 Order Info: [id number] - CMP Order Info: [id number] - LIPID Order Info: [id number] - TSH Performed By: #### L 100.0100, L500.4050, L502.0250, L506.1000, L500.4100, L501.9520, L501.9985, L509.1000, L101.9900 #### [facility] [address] [place], [place], [address] Vitamin D,25 Hydroxyon 12-19 Vitamin D 25-OH 42.7 ng/mL Normal [facility] Comment on above: Order Comment: Order Date: 12/13/24 Order Info: [id number] - VITD25 Result Comment: Bethany min D 25(OH) Status Range Deficiency <20 ng/mL (50nmol/L) Insufficiency 20 - 30 ng/mL (50 - 75 nmol/L) Sufficiency 30 - 100 ng/mL (75 - 250 nmol/L) Toxicity >100 ng/mL (>250 nmol/L) Performed By: #### L 100.0100, L500.4050, L502.0250, L506.1000, L500.4100, L501.9520, L501.9985, L509.1000, L101.9900 #### [facility] [address] [place], [address] Venous Duplex US, Unilateral on 05-27-2024 Venous Duplex US, Unilateral [facility] [address] [place] [address] Venous Duplex US, Unilateral 05/27/24 1104 MR#: [id number] Acct: [id number] Name: VICKIE GONZALEZ Rep #: [id number] : 1955 68 From: Cristhian Coleman MD [...] Dictated: 05/27/24 1104 Date Transcribed: 05/27/24 1227 [employer] Keeper: Signed Normal [facility] XR KNEE RIGHT 3 VIEWS (SPECI [...] within normal limits. IMPRESSION: Intact knee replacement. /[facility] Workstation ID: [id number] Dictated by: ROBE COLIN on ThuMar 25, 2024 4:34:08 PM EDT Transcribed by: JAY GUADARRAMA on ThuMar 25, 2024 4:53:17 PM EDT Finalized by: ROBE COLIN on ThuMar 25, 2024 5:26:19 PM EDT Normal [facility] Comment on above: Order Comment: [...] ThuJan 26, 2024 4:57:48 PM EST Normal [facility] Comment on above: Order Comment: [...] on ThuJan 07, 2024 10:52:02 PM EST [facility] Comment on above: Order Comment: Nicolas ayers only schedule at [facility]. Do not schedule Ct scan appointment with patient. Ordering Doctor's office will call to schedule Ct scan appointment. Injury/Trauma or Illness?:Illness/Other How long have you had these symptoms (acute/chronic)?:Acute Reason for exam?:pre operative for upcoming Rt TKR Type of Exam?:Initial Additional signs and symptoms?:. Basophil percentageOrdered B y: Kirill Newell on 11-12-2023 Bilirubin [Mass/Vol] 0.70 mg/dL 0.20-1.00 [facility] Comment on above: For patients on eltr ombopag therapy, use of Dimension Qulin TBIL is not recommended. Chloride [Moles/Vol] 107 mmol/L 98-107 [facility] Glucose [Mass/Vol] 97 mg/dL 74-106 [facility] Potassium [Moles/Vol] 4.3 mmol/L 3.5-5.1 [facility] Protein [Mass/Vol] 8.7 g/dL 6.4-8.2 [facility] Sodium [Moles/Vol] 140 mmol/L 136-145 [facility] WBC (Bld) [#/Vol] 7.7 10*3/uL 4.4-11.0 [facility] Blood erythrocytes count (nu mber/volume)Ordered By: Kirill Newell on 11-12-2023 RBC (Bld) [#/Vol] 4.16 10*6/uL 4.2-5.4 [facility] Blood hemoglobin measurement (mass/volume)Ordered By: Kirill Newell on 11-12-2023 Hemoglobin (Bld) [Mass/Vol] 11.5 g/dL 12.0-15.0 [facility] Blood platelet mean volumeOr dered By: Kirill Newell on 11-12-2023 Platelet mean volume (Bld) [Entitic vol] 11.2 fL 6.2-12.0 [facility] Determination of erythrocyte mean corpuscular volume (MCV)Ordered By: Kirill Newell on 11-12-2023 MCV (RBC) [Entitic vol] 89.2 fL 81-99 [facility] Erythrocyte sedimentation ra teOrdered By: Kirill Newell on 11-12-2023 ESR (Bld) [Velocity] 48 mm/h 0-30 [facility] Hematocrit Auto (Bld) [Volum e fraction]Ordered By: Kirill Newell on 11-12-2023 Hematocrit (Bld) [Volume fraction] 37.1 % 37-47 [facility] - Chemistry and C hemistry - challengeOrdered By: Kirill Newell on 11-12-2023 ALP [Catalytic activity/Vol] 110 U/L 45-117 [facility] ALT [Catalytic activity/Vol] 21 U/L 13-56 [facility] CO2 [Moles/Vol] 28.0 mmol/L 21.0-32.0 [facility] Globulin (S) [Mass/Vol] 5.5 g/dL 2.2-4.2 [facility] Urea nitrogen/Creatinine [Mass ratio] 19.0 mg/mg 10-20 [facility] - Hematology and Cell countsOrdered By: Kirill Newell on 11-12-2023 Erythrocyte distribution width (RBC) [Entitic vol] 51.8 fL 35.1-43.9 [facility] Erythrocyte distribution width (RBC) [Ratio] 15.9 % 11.6-14.6 [facility] MCH (RBC) [Entitic mass] 27.6 pg 27.0-32.0 [facility] MCHC Auto (RBC) [Mass/Vol]Or dered By: Kirill Newell on 11-12-2023 MCHC (RBC) [Mass/Vol] 31.0 g/dL 32-36 [facility] No Panel InformationOrdered By: Kirill Newell on 11-12-2023 Addendum Document Comment . [facility] Comment on above: The SPE pattern demo nstrates elevation of regionscontaining acute phase proteins suggesting anacute/subacute inflammatory response. Some conditions inwhich this pattern has been observed include: bacterial,viral or parasitic infection; mechanical, physical orchemical trauma; and cardiac failure. The gamma globulinregion is unremarkable and evidence of monoclonal proteinis not apparent.Performed at: [facility] [address] [id number] Director: Ha Gutierrez PhD, Phone: [phone] Sdxtd-9-Okvwgrrrk 0.4 g/dL 0.0-0.4 [facility] Mrnlw-0-Cnzulemla 1.2 g/dL 0.4-1.0 [facility] Anti-Nuclear Antibody Screen Negative Negative [facility] Comment on above: Performed at: [facility] [address] [id number] Director: Ha Gutierrez PhD, Phone: [phone] Estimated GFR (MDRD) Amer 86 mL/min >60 [facility] Comment on above: GFR Calc Estimated GFR (MDRD) Non-Af Amer 71 mL/min >60 [facility] Comment on above: Non- GFR Calc Gamma Globulins 1.8 g/dL 0.4-1.8 [facility] Parathyroid Hormone (Intact) 69.9 pg/mL 18.4-80.1 [facility] Urine Microalbumin/Creatinine Ratio 70.0 mg/g CRE <30 [facility] Vitamin D 25-Hydroxy 37.3 ng/mL [facility] Comment on above: Vitamin D 25(OH) Sta tus Range Deficiency <20 ng/mL (50nmol/L) Insufficiency 20 - 30 ng/mL (50 - 75 nmol/L) Sufficiency 30 - 100 ng/mL (75 - 250 nmol/L) Toxicity >100 ng/mL (>250 nmol/L) Platelets bldOrdered By: Theresa Newell on 11-12-2023 Platelets (Bld) [#/Vol] 272 10*3/uL 150-450 [facility] Protein Fractions Elph [Inte rp]Ordered By: Kirill Newell on 11-12-2023 Protein Fractions [Interp] Comment . [facility] Comment on above: Protein electrophore sis scan will follow via computer,mail, or routing equipment tender delivery. Serum albumin to globulin ra allen by protein electrophoresisOrdered By: Kirill Newell on 11-12-2023 Albumin/Globulin Elph [Mass ratio] 0.7 0.7-1.7 [facility] Serum globulin measurement ( mass/volume)Ordered By: Kirill Newell on 11-12-2023 Globulin (S) [Mass/Vol] 4.6 g/dL 2.2-3.9 [facility] Serum or plasma C reactive p rotein measurement (mass/volume)Ordered By: Kirill Newell on 11-12-2023 CRP [Mass/Vol] 15.50 mg/L 0.0-3.0 [facility] Comment on above: C-Reactive Protein ( CRP) provides useful information for thediagnosis, therapy and monitoring of inflammatory processesand associated diseases. For the evaluation of Relative Riskfor Cardiovascular Disease, a High Sensitivity CRP (HSCRP)should be ordered. Serum or plasma albumin erasmo urement (mass/volume)Ordered By: Kirill Newell on 11-12-2023 Albumin [Mass/Vol] 3.2 g/dL 2.9-4.4 [facility] Serum or plasma albumin/glob ulin mass ratioOrdered By: Kirill Newell on 11-12-2023 Albumin/Globulin [Mass ratio] 0.6 {ratio} 0.9-2.4 [facility] Serum or plasma beta globuli n measurement by electrophoresis (mass/volume)Ordered By: Kirill Newell on 11-12-2023 Beta globulin Elph [Mass/Vol] 1.2 g/dL 0.7-1.3 [facility] Serum or plasma calcium erasmo urement (mass/volume)Ordered By: Kirill Newell on 11-12-2023 Calcium [Mass/Vol] 9.1 mg/dL 8.5-10.1 [facility] Serum or plasma creatinine m easurement (mass/volume)Ordered By: Kirill Newell on 11-12-2023 Creatinine [Mass/Vol] 0.84 mg/dL 0.55-1.02 [facility] Comment on above: The validity of the calculated GFR & GFRAA in patients over 70 years has not been determined. Clinical correlation is essential. Serum or plasma protein mono clonal measurement by electrophoresis (mass/volume)Ordered By: Kirill Newell on 11-12-2023 Protein.monoclonal Elph [Mass/Vol] Not Observed g/dL Not Observed [facility] Serum or plasma urea nitroge n measurement (mass/volume)Ordered By: Kirill Newell on 11-12-2023 Urea nitrogen [Mass/Vol] 16 mg/dL 7-18 [facility] Serum rheumatoid factor dete ctionOrdered By: Kirill Newell on 11-12-2023 Rheumatoid factor Ql (S) < 10.0 IU/mL <15 [facility] Thin prep Papanicolaou smear with manual screeningOrdered By: Kirill Newell on 11-12-2023 Thin prep Papanicolaou smear with manual screening 26 U/L 15-37 [facility] Thin prep Papanicolaou smear with manual screening 5 5-15 [facility] Thin prep Papanicolaou smear with manual screening 156.0 mg/L NO RANGE EST. [facility] Total protein bloodOrdered B y: Kirill Newell on 11-12-2023 Protein [Mass/Vol] 7.8 g/dL 6.0-8.5 [facility] Urine creatinine measurement (mass/volume)Ordered By: Kirill Newell on 11-12-2023 Creatinine (U) [Mass/Vol] 223.00 mg/dL NO RANGE EST. [facility] Whole blood hemoglobin A1c/t otal hemoglobin ratio (mass fraction)Ordered By: Kirill Newell on 11-12-2023 HbA1c (Bld) [Mass fraction] 5.7 % 3.8-5.6 [facility] Comment on above: Normal < 5.7 [...] right knee. The right knee shows severe kmek-uw-kgpq narrowing with endplate sclerosis and endplate osteophytes and about 7 mm of lateral subluxation of the tibial plateau in relationship to the distal femur associated with varus angulation of the knee. There are osteophytes along the lateral joint compartment and frtfhgdx-su-nrhgyi arthritic changes of the patellofemoral joint. There is likely a small suprapatellar joint effusion. No acute fracture is identified. Total left knee arthroplasty is in place. No radiographic signs of hardware complications. IMPRESSION: 1. 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 2. No acute osseous abnormalities identified. [employer] Workstation ID: [id number] Dictated by: YOSELYN PETE on ThuSep 15, 2023 10:04:15 AM EDT Transcribed by: GERALD DYER on ThuSep 15, 2023 10:28:27 AM EDT Finalized by: YOSELYN PETE on ThuSep 15, 2023 2:48:38 PM EDT Normal [facility] Comment on above: Order Comment: Injur y/Trauma or Illness?:Illness/Other How long have you had these symptoms (acute/chronic)?:Chronic Reason for exam?:pain History of cancer?:/ / Surgeries, chemotherapy, or radiation?:/ Type of Exam?:Initial Additional signs and symptoms?:na ECG 12 Leadon 01-21-2023 Atrial Rate [facility] P Dracut [facility] P-R Interval [facility] Q-T Interval [facility] Q-T Interval (corrected) [facility] QRS Duration [facility] QTC Calculation (Bezet) [facility] R Dracut [facility] T Dracut [facility] Ventricular Rate [facility] ECHOCARDIOGRAM COMPLETEon ECHOCARDIOGRAM COMPLETE Patient Info Name: VICKIE GONZALEZ Age: 67 years : 1955 Gender: Female Ht: 167 cm Wt: 105 kg BSA: 2.26 m2 HR: 1 bpm BP: 157 / 89 mmHg Technical Quality: Fair Exam Date: 01/21/2023 9:06 AM Patient Status: Outpatient 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 Left ventricular [...] Value Normal - PV Regurgitation Doppler - [place] Peak End Diastolic Velocity 128 cm/s Mitral Valve - Name Value Normal - MV Doppler - MV Peak Velocity 1. (more content not included)... [facility] ECG 12 LeadOrdered By: Virginie Guerra on 02-19-2022 Atrial Rate [facility] P Dracut [facility] P-R Interval [facility] Q-T Interval [facility] Q-T Interval (corrected) [facility] QRS Duration [facility] QTC Calculation (April) [facility] R Drac[facility] T Dracut [facility] Ventricular Rate [facility] Basic metabolic 2000 panelon 01-22-2022 Anion gap [Moles/Vol] 15 mmol/L 10 - 2 0 mmol/L [facility] Calcium [Mass/Vol] 8.8 mg/dL 8.4 - 10. 2 mg/dL [facility] Chloride [Moles/Vol] 104 mmol/L 98 - 10 8 mmol/L [facility] Creatinine [Mass/Vol] 0.75 mg/dL 0.60 - 1.20 [facility] GFR/1.73 sq M.predicted CKD-EPI (S/P/Bld) [Vol rate/Area] 83 >=60 mL/min/1.73 m2 [facility] Glucose [Mass/Vol] 90 mg/dL 65 - 99 mg/dL [facility] HCO3 [Moles/Vol] 24 mmol/L 21 - 32 mmol/L [facility] Interpretation and review of laboratory results Normal [facility] Potassium [Moles/Vol] 4.3 mmol/L 3.5 - 5.1 mmol/L [facility] Sodium [Moles/Vol] 139 mmol/L 135 - 145 mmol/L [facility] Urea nitrogen [Mass/Vol] 10 mg/dL 8 - 25 mg/d L [facility] Urea nitrogen/Creatinine [Mass ratio] 13.3 mg/mg [facility] The eGFR should be u sed for monitoring renal function only and not for medication dosing. [facility] CBC panel Auto (Bld)on 01-22 Erythrocyte distribution width (RBC) [Entitic vol] 15.9 % High 11.6 - 14.8 % [facility] Hematocrit (Bld) [Volume fraction] 33.2 % Low 36.0 - 46.0 % [facility] Hemoglobin (Bld) [Mass/Vol] 10.4 g/dL Low 12.0 - 16.0 g/dL [facility] Interpretation and review of laboratory results Abnormal [facility] MCH (RBC) [Entitic mass] 27.2 pg 26. 0 - 34.0 pg [facility] MCHC (RBC) [Mass/Vol] 31.3 g/dL 31.0 - 37.0 g/dL [facility] MCV (RBC) [Entitic vol] 86.9 fL 80.0 - 100.0 fL [facility] Nucleated RBC (Bld) [#/Vol] 0.00 10*3/uL [facility] Nucleated RBC/100 WBC (Bld) [Ratio] 0.0 % [facility] Platelet mean volume (Bld) [Entitic vol] 11.9 fL 9.4 - 12.4 fL [facility] Platelets (Bld) [#/Vol] 176 10*3/uL [facility] RBC (Bld) [#/Vol] 3.82 10*6/uL Low [facility] ealt WBC (Bld) [#/Vol] 5.53 10*3/uL [facility] 12 Leadon 01-22-2022 Atrial Rate 65 BPM [facility] P Dracut 64 degrees [facility] P-R Interval 300 ms [facility] Q-T Interval 444 ms [facility] QRS Duration 94 ms [facility] QTC Calculation (Bezet) 461 ms [facility] R Dracut 10 degrees [facility] T Dracut 90 degrees [facility] Ventricular Rate 65 BPM [facility] th Sinus rhythm with 1s t degree AV block Otherwise normal ECG Confirmed by REMY SEGURA MD ([id number]) on 01/22/2022 9:10:34 AM MUSE [facility] Atrial Rate 64 BPM [facility] P Dracut 48 degrees [facility] P-R Interval 272 ms [facility] Q-T Interval 438 ms [facility] QRS Duration 96 ms [facility] QTC Calculation (Bezet) 451 ms [facility] R Dracut 34 degrees [facility] T Dracut 89 degrees [facility] Ventricular Rate 64 BPM [facility] th Sinus rhythm with 1s t degree AV block Nonspecific T wave abnormality Abnormal ECG When compared with ECG of 21-JAN-2022 12:50, (unconfirmed) No significant change was found Confirmed by REMY SEGURA MD ([id number]) on 01/22/2022 9:08:00 AM [facility] APTTon 01-21-2022 aPTT Coag (Bld) [Time] 29 s [facility] Basic metabolic 2000 panelon 01-21-2022 Anion gap [Moles/Vol] 16 mmol/L 10 - 2 0 mmol/L [facility] Calcium [Mass/Vol] 8.5 mg/dL 8.4 - 10. 2 mg/dL [facility] Chloride [Moles/Vol] 106 mmol/L 98 - 10 8 mmol/L [facility] Creatinine [Mass/Vol] 0.67 mg/dL 0.60 - 1.20 [facility] GFR/1.73 sq M.predicted CKD-EPI (S/P/Bld) [Vol rate/Area] 91 >=60 mL/min/1.73 m2 [facility] Glucose [Mass/Vol] 110 mg/dL High 65 - 99 mg/dL [facility] HCO3 [Moles/Vol] 21 mmol/L 21 - 32 mmol/L [facility] Interpretation and review of laboratory results Abnormal [facility] Potassium [Moles/Vol] 3.9 mmol/L 3.5 - 5.1 mmol/L [facility] Sodium [Moles/Vol] 139 mmol/L 135 - 145 mmol/L [facility] Urea nitrogen [Mass/Vol] 14 mg/dL 8 - 25 mg/d L [facility] Urea nitrogen/Creatinine [Mass ratio] 20.9 mg/mg High [facility] The eGFR should be u sed for monitoring renal function only and not for medication dosing. [facility] Basic metabolic 2000 panelOr dered By: Marcial Thomas on 01-21-2022 Anion gap [Moles/Vol] 17 mmol/L 10 - 2 0 mmol/L [facility] Calcium [Mass/Vol] 8.9 mg/dL 8.4 - 10. 2 mg/dL [facility] Chloride [Moles/Vol] 106 mmol/L 98 - 10 8 mmol/L [facility] Creatinine [Mass/Vol] 0.77 mg/dL 0.60 - 1.20 [facility] GFR/1.73 sq M.predicted CKD-EPI (S/P/Bld) [Vol rate/Area] 80 >=60 mL/min/1.73 m2 [facility] Glucose [Mass/Vol] 94 mg/dL 65 - 99 mg/dL [facility] HCO3 [Moles/Vol] 23 mmol/L 21 - 32 mmol/L [facility] Interpretation and review of laboratory results Normal [facility] Potassium [Moles/Vol] 4.2 mmol/L 3.5 - 5.1 mmol/L [facility] Comment on above: Slightly Hemolyzed Sodium [Moles/Vol] 142 mmol/L 135 - 145 mmol/L [facility] Urea nitrogen [Mass/Vol] 14 mg/dL 8 - 25 mg/d L [facility] Urea nitrogen/Creatinine [Mass ratio] 18.2 mg/mg [facility] The eGFR should be u sed for monitoring renal function only and not for medication dosing. [facility] CBC panel Auto (Bld)on 01-21 Erythrocyte distribution width (RBC) [Entitic vol] 15.7 % High 11.6 - 14.8 % [facility] Hematocrit (Bld) [Volume fraction] 32.7 % Low 36.0 - 46.0 % [facility] Hemoglobin (Bld) [Mass/Vol] 10.2 g/dL Low 12.0 - 16.0 g/dL [facility] Interpretation and review of laboratory results Abnormal [facility] MCH (RBC) [Entitic mass] 27.1 pg 26. 0 - 34.0 pg [facility] MCHC (RBC) [Mass/Vol] 31.2 g/dL 31.0 - 37.0 g/dL [facility] MCV (RBC) [Entitic vol] 86.7 fL 80.0 - 100.0 fL [facility] Nucleated RBC (Bld) [#/Vol] 0.00 10*3/uL [facility] Nucleated RBC/100 WBC (Bld) [Ratio] 0.0 % [facility] Platelet mean volume (Bld) [Entitic vol] 11.7 fL 9.4 - 12.4 fL [facility] Platelets (Bld) [#/Vol] 173 10*3/uL [facility] RBC (Bld) [#/Vol] 3.77 10*6/uL [facility] W[facility] (Bld) [#/Vol] 6.65 10*3/uL [facility] Calcium, Ionizedon 2 Calcium.ionized [Mass/Vol] 4.6 mg/dL 4.5 - 5.3 mg/dL [facility] Calcium.ionized [Mass/Vol]on 01-21-2022 Interpretation and review of laboratory results Normal [facility] Echocardiogram limited with contrastOrdered By: Nicol Pittman on 01-21-2022 AV mean gradient 5 mmHg [facility] Work Phone: [facility] Work Phone: Echocardiogram limited with contraston 01-21-2022 Patient Info Name: VICKIE GONZALEZ Age: 66 years : 1955 Gender: Female Ht: 168 cm Wt: 102 kg BSA: 2.22 m2 BP: 144 / 57 mmHg Technical Quality: Fair Exam Date: 01/21/2022 12:12 PM Patient Status: Outpatient [employer] Mail Processor: Jolanta Klein RDCS, RVT Exam Type: ECHOCARDIOGRAM LIMITED WITH CONTRAST Study Info Indications - INTRAOP TAVR Attending Physician: LINDSEY PLUMMER Referring Physician: [id number] Barney; [id number] BMI: 36.32 kg/m2 Summary 1. Limited two-dimensional, [...] Nicol Pittman DO on 01/21/2022 04:13 PM [facility] SYNAPSE Nicol Pittman DO - 01/21/2022 Patient Info Name: VICKIE GONZALEZ Age: 66 years : 1955 Gender: Female Ht: 168 cm Wt: 102 kg BSA: 2.22 m2 BP: 144 / 57 mmHg Technical Quality: Fair Exam Date: 01/21/2022 12:12 PM Patient Status: Outpatient [employer] Mail Processor: Jolanta Klein RDCS, RVT Exam Type: ECHOCARDIOGRAM LIMITED WITH CONTRAST Study Info Indications - INTRAOP TAVR Attending Physician: LINDSEY PLUMMER Referring Physician: [id number], BATISTA; [id number] BMI: 36.32 kg/m2 Summary 1. Limited two-dimensional, [...] Nicol Pittman DO on 01/21/2022 04:13 PM [facility] Radiology Study observation (narrative) [facility] INR Coag (PPP) [Relative shandra e]on 01-21-2022 Interpretation and review of laboratory results Abnormal [facility] PT Coag (PPP) [Time] 15.5 s [facility] During the induction phase of oral anticoagulation, the INR may not reflect the anticoagulation status of the patient. Therapeutic ranges for INR's are: Most clinical situations: INR 2.0-3.0 Mechanical Prosthetic Valve: INR 2.5-3.5 Critical: INR >5.0 [facility] Laboratory - Blood bankon ABO and Rh group Nom (Bld) 5100 [facility] ABO and Rh group Nom (Bld) Blood group O Rh(D) positive [facility] Magnesiumon 01-21-2022 Magnesium [Mass/Vol] 1.8 mg/dL 1.6 - 2 .4 mg/dL [facility] Magnesium [Mass/Vol]on 01-21 Interpretation and review of laboratory results Normal [facility] No Panel Informationon 01-21 [facility] Cross Match Compatible [facility] Product Code [id number] [facility] Product ID Red Blood Cells [facility] Status Info Ready [facility] POC Venous Blood Gas Panel-P ulmon 01-21-2022 Base excess Calc (BldV) [Moles/Vol] -1.1000 mmol/L [facility] Breath rate setting Ventilator synchronized intermittent mandatory 0 [facility] Calcium.ionized [Mass/Vol] 4.8 mg/dL 4.5 - 5.3 mg/dL [facility] Carboxyhemoglobin (BldA) [Mass fraction] 1.5 <=1.5 % of total Hb [facility] Comment on above: Reference Ranges: [facility] Non-smokers: <1.5% Smokers: 1.5-5.0% Heavy Smokers: 5.0-9.0% Chloride [Moles/Vol] 109 mmol/L High 98 - 10 8 mmol/L [facility] CO2 (BldV) [Partial pressure] 47.4 mm[Hg] [facility] Glucose [Mass/Vol] 109 mg/dL High 65 - 99 mg/dL [facility] HCO3 (Bld) [Moles/Vol] 25.0 mmol/L 24.0 - 28.0 mmol/L [facility] Hematocrit (BldA) [Volume fraction] 29.7 % Low 36.0 - 46.0 % [facility] Hemoglobin (Bld) [Mass/Vol] 9.7 g/dL Low 12.0 - 16.0 g/dL [facility] Inhaled oxygen concentration 0 % [facility] Interpretation and review of laboratory results Abnormal [facility] Lactate [Moles/Vol] 0.4 mmol/L Low 0.6 - 2. 0 mmol/L [facility] Methemoglobin (BldA) [Mass fraction] <1.0 0.0 - 2.0 % [facility] Oxygen (BldV) [Partial pressure] 39 mm[Hg] [facility] Oxygen saturation in Venous blood 69.2 % 40.0 - 70.0 % [facility] Oxyhemoglobin (BldA) [Mass fraction] 67.8 % No established reference range [facility] pH (BldV) 7.33 [pH] [facility] Potassium [Moles/Vol] 3.6 mmol/L 3.5 - 5.1 mmol/L [facility] Result Notification critical results giv en to treating OR anesthesiolo [facility] Sodium [Moles/Vol] 143 mmol/L 135 - 145 mmol/L [facility] Tidal volume setting Ventilator 0 [facility] PT/INRon 01-21-2022 INR Coag (PPP) [Relative time] 1.3 {INR} High [facility] Potassium Levelon 01-21-2022 Potassium [Moles/Vol] 4.5 mmol/L 3.5 - 5.1 mmol/L [facility] Potassium [Moles/Vol]on 01-01 Interpretation and review of laboratory results Normal [facility] Prepare RBC: 4 Unitson 01-21 Product Code [id number] [facility] Unit Number [id number] [facility] Unit Number [id number] [facility] Unit Number [id number] [facility] Unit Number [id number] [facility] XR Chest 1 Viewon 01-21-2022 Status post TAVR Cardiomegaly pulmonary vascular congestion and edema Workstation ID: [id number] [employer] RIS EXAMINATION: ONE XRAY VIEW OF THE [...] vascular congestion and edema Workstation ID: [id number] [facility] Radiology Study observation (narrative) [facility] XR Chest 1 ViewOrdered By: Malachi Shirley on 01-21-2022 [facility] Work Phone: aPTT Coag (Bld) [Time]on Interpretation and review of laboratory results Normal [facility] Therapeutic range fo r APTT's is 68 - 104 seconds [facility] ECG 12 LeadOrdered By: Virginie Guerra on 01-09-2022 Atrial Rate [facility] P Dracut [facility] P-R Interval [facility] Q-T Interval [facility] Q-T Interval (corrected) [facility] QRS Duration [facility] QTC Calculation (Bezet) [facility] R Drac[facility] T Dracut [facility] Ventricular Rate [facility] COVID-19, MolecularOrdered B y: Nasreen Jenkins on 01-07-2022 SARS-CoV-2 (COVID-19) RNA MAXIMUS+probe Ql (Resp) Not detected Not Detected [facility] Comment on above: This test was perfor [...] at the following links: For Healthcare Providers: https://www.fda.gov/media/627267/download For Patients: https://www.fda.gov/media/736834/download SARS-CoV-2 (COVID-19) RNA NA A+probe Ql (Resp)Ordered By: Nasreen Jenkins on 01-07-2022 Interpretation and review of laboratory results Normal [facility] ECG 12-LEADOrdered By: Blaine Silveira on 06-10-2021 Atrial Rate [facility] P Dracut [facility] P-R Interval [facility] Q-T Interval [facility] Q-T Interval (corrected) [facility] QRS Duration [facility] QTC Calculation (Bezet) [facility] R Drac[facility] T Dracut [facility] Ventricular Rate [facility] Atrial Rate [facility] P Dracut [facility] P-R Interval [facility] Q-T Interval [facility] Q-T Interval (corrected) [facility] QRS Duration [facility] QTC Calculation (Bezet) [facility] R Drac[facility] T Dracut [facility] Ventricular Rate [facility] ECHOCARDIOGRAM COMPLETEon Transthoracic Echocardiogram _ Patient: CARLOS [facility] Rec#: [id number] (Age): 1955(63y) Height: 167.64(cm)/65(i Study Date: 06/14/2019 Weight: 120.66(kg)/265( Room#: BSA: [id number] Type: Loc: Sex: F _ Reading: Silvio Mckeon MD F Referring: BLAINE SILVEIRA L. [employer] Mail Processor: Angelica Lynne RD, T History: Aortic Valve [...] at 06/14/2019 16:22:40 by: Silvio Mckeon MD [facility] Interface, Rad In [facility] Xper Echopacs - 06/14/2019 4:29 PM EDT Transthoracic Echocardiogram _ Patient: CARLOS [facility] Rec#: [id number] (Age): 1955(63y) Height: 167.64(cm)/65(i Study Date: 06/14/2019 Weight: 120.66(kg)/265( Room#: BSA: [id number] Type: Loc: Sex: F _ Reading: Silvio Mckeon MD F Referring: BLAINE SILVEIRA L. [employer] Mail Processor: Aneglica Lynne [facility], T History: Aortic Valve disorder. Chest pain. [...] at 06/14/2019 16:22:40 by: Silvio Mckeon MD [facility] ECG 12-LEADon 06-06-2019 Atrial Rate [facility] P Dracut [facility] P-R Interval [facility] Q-T Interval [facility] Q-T Interval (corrected) [facility] QRS Duration [facility] QTC Calculation (Bezet) [facility] R Drac[facility] T Dracut [facility] Ventricular Rate [facility] Echocardiogram completeon Echocardiogram complete Transthoracic Echocardiogram _ Patient: CARLOS [facility] Rec#: [id number] (Age): 1955(62y) Height: 167.64(cm)/65(i Study Date: 01/05/2018 Weight: 109.77(kg)/241( Room#: BSA: [id number] Type: Outpatient Loc: Sex: F _ Reading: Iliana Gomez M.D. Referring: BLAINE SILVEIRA L. [employer] Mail Processor: Angelica Lynne RDCS, RVT History: Aortic Valve [...] EST Transthoracic Echocardiogram _ Patient: CARLOS [facility] Rec#: [id number] (Age): 1955(62y) Height: 167.64(cm)/65(i Study Date: 01/05/2018 Weight: 109.77(kg)/241( Room#: BSA: [id number] Type: Outpatient Loc: Sex: F _ Reading: Iliana Gomez M.D. Referring: BLAINE SILVEIRA L. [employer] Mail Processor: Angelica Lynne RDCS, RVT History: Aortic Valve [...] by: Iliana Gomez M.D. Invalid Interpretation Code [facility] RAD Vital Signs Date Time Vital Sign Value Performing Clinician Facility 05-30-2025 02:47-0400 Body temperature 98.2 [degF] Dr. Kirill Newell MD Work Phone: [facility] 05-30-2025 02:47-0400 Diastolic blood pressure 100 mm[Hg] Dr. Kirill Newell MD Work Phone: [facility] 05-30-2025 02:47-0400 Heart rate 114 /min Dr. Kirill Newell MD Work Phone: [facility] 05-30-2025 02:47-0400 Respiratory rate 23 /min Dr. Kirill Newell MD Work Phone: [facility] 05-30-2025 02:47-0400 SaO2% (BldA) [Mass fraction] 96 % Dr. Kirill Newell MD Work Phone: [facility] 05-30-2025 02:47-0400 Systolic blood pressure 136 mm[Hg] Dr. Kirill Newell MD Work Phone: [facility] 05-29-2025 23:10-0400 Body height 170.[address] Kirill Newell MD Work Phone: [facility] 05-29-2025 23:10-0400 Body mass index (BMI) [Ratio] 41 kg/m2 Dr. Kirill Newell MD Work Phone: [facility] 05-29-2025 23:10-0400 Body weight 118.[address] Kirill Newell MD Work Phone: [facility] 02-12-2024 11:18-0400 Body temperature 98.1 [degF] Kendall Djauan PT [facility] 02-12-2024 11:18-0400 Diastolic blood pressure 79 mm[Hg] Kendall Dajuan PT [facility] 02-12-2024 11:18-0400 Heart rate 78 /min Kendall Graff PT [facility] 02-12-2024 11:18-0400 Respiratory rate 16 /min Kendall Graff PT [facility] 02-12-2024 11:18-0400 SaO2% (BldA) [Mass fraction] 98 % Kendall Graff PT [facility] 02-12-2024 11:18-0400 Systolic blood pressure 124 mm[Hg] Kendall Dajuan PT [facility] 02-11-2024 08:58-0400 Body temperature 98.8 [degF] Lindsey Centeno RN [facility] 02-11-2024 08:58-0400 Diastolic blood pressure 78 mm[Hg] Lindsey Centeno RN [facility] 02-11-2024 08:58-0400 Heart rate 62 /min Lindsey Centeno RN [facility] 02-11-2024 08:58-0400 Respiratory rate 16 /min Lindsey Centeno RN [facility] 02-11-2024 08:58-0400 SaO2% (BldA) [Mass fraction] 99 % Lindsey Centeno RN [facility] 02-11-2024 08:58-0400 Systolic blood pressure 132 mm[Hg] Lindsey Centeno RN [facility] 02-10-2024 09:59-0400 Body temperature 97.81 [degF] Cristhian Thrush [facility] 02-10-2024 09:59-0400 Diastolic blood pressure 70 mm[Hg] Cristhian Thrush [facility] 02-10-2024 09:59-0400 Heart rate 66 /min Cristhian Thrush [facility] 02-10-2024 09:59-0400 Respiratory rate 15 /min Cristhian Thrush [facility] 02-10-2024 09:59-0400 SaO2% (BldA) [Mass fraction] 97 % Cristhian Byrnes [facility] 02-10-2024 09:59-0400 Systolic blood pressure 118 mm[Hg] Cristhian Byrnes [facility] 02-09-2024 09:21-0400 Body temperature 98.2 [degF] Lisa Odell [facility] 02-09-2024 09:21-0400 Diastolic blood pressure 80 mm[Hg] Lisa Odell [facility] 02-09-2024 09:21-0400 Heart rate 85 /min Lisa Odell [facility] 02-09-2024 09:21-0400 Respiratory rate 16 /min Lisa Odell [facility] 02-09-2024 09:21-0400 SaO2% (BldA) [Mass fraction] 98 % Lisa Odell [facility] 02-09-2024 09:21-0400 Systolic blood pressure 142 mm[Hg] Lisa Odell [facility] 02-08-2024 10:30-0400 Body temperature 97.9 [degF] Cristhian Byrnes [facility] 02-08-2024 10:30-0400 Diastolic blood pressure 70 mm[Hg] Cristhian Byrnes [facility] 02-08-2024 10:30-0400 Heart rate 67 /min Cristhian Byrnes [facility] 02-08-2024 10:30-0400 Respiratory rate 16 /min Cristhian Byrnes [facility] 02-08-2024 10:30-0400 SaO2% (BldA) [Mass fraction] 97 % Cristhian Byrnes [facility] 02-08-2024 10:30-0400 Systolic blood pressure 118 mm[Hg] Cristhian Byrnes [facility] 02-05-2024 10:44-0500 Body temperature 98.49 [degF] Lisa Odell [facility] 02-05-2024 10:44-0500 Diastolic blood pressure 82 mm[Hg] Lisa Jose R [facility] 02-05-2024 10:44-0500 Heart rate 77 /min Lisa Jose R [facility] 02-05-2024 10:44-0500 Respiratory rate 16 /min Lisa Odell [facility] 02-05-2024 10:44-0500 SaO2% (BldA) [Mass fraction] 98 % Lisa Odell [facility] 02-05-2024 10:44-0500 Systolic blood pressure 150 mm[Hg] Lisa Odell [facility] 02-05-2024 10:09-0500 Body temperature 98.2 [degF] Cristhian Byrnes [facility] 02-05-2024 10:09-0500 Diastolic blood pressure 88 mm[Hg] Cristhian Byrnes [facility] 02-05-2024 10:09-0500 Heart rate 67 /min Cristhian Byrnes [facility] 02-05-2024 10:09-0500 Respiratory rate 15 /min Cristhian Byrnes [facility] 02-05-2024 10:09-0500 SaO2% (BldA) [Mass fraction] 97 % Cristhian Byrnes [facility] 02-05-2024 10:09-0500 Systolic blood pressure 150 mm[Hg] Cristhian Byrnes [facility] 02-03-2024 14:06-0500 Body temperature 97.59 [degF] Sienarachel Rondon [facility] 02-03-2024 14:06-0500 Diastolic blood pressure 84 mm[Hg] Siena Bucionaveed [facility] 02-03-2024 14:06-0500 Heart rate 76 /min Sienarachel Rondon [facility] 02-03-2024 14:06-0500 Respiratory rate 18 /min Sienarachel Rondon [facility] 02-03-2024 14:06-0500 SaO2% (BldA) [Mass fraction] 99 % Sienarachel Rondon [facility] 02-03-2024 14:06-0500 Systolic blood pressure 130 mm[Hg] Siena Nela [facility] 02-03-2024 12:32-0500 Body temperature 97.3 [degF] Cristhian Byrnes [facility] 02-03-2024 12:32-0500 Diastolic blood pressure 83 mm[Hg] Cristhian Byrnes [facility] 02-03-2024 12:32-0500 Heart rate 70 /min Cristhian Byrnes [facility] 02-03-2024 12:32-0500 Respiratory rate 15 /min Cristhian Byrnes [facility] 02-03-2024 12:32-0500 SaO2% (BldA) [Mass fraction] 99 % Cristhian Byrnes [facility] 02-03-2024 12:32-0500 Systolic blood pressure 145 mm[Hg] Cristhian Byrnes [facility] 02-01-2024 11:30-0500 Body temperature 98.1 [degF] Cristhian Byrnes [facility] 02-01-2024 11:30-0500 Diastolic blood pressure 88 mm[Hg] Cristhian Byrnes [facility] 02-01-2024 11:30-0500 Heart rate 70 /min Cristhian Byrnes [facility] 02-01-2024 11:30-0500 Respiratory rate 15 /min Cristhian Byrnes [facility] 02-01-2024 11:30-0500 SaO2% (BldA) [Mass fraction] 98 % Cristhian Byrnes [facility] 02-01-2024 11:30-0500 Systolic blood pressure 148 mm[Hg] Cristhian Byrnes [facility] 01-28-2024 12:52-0500 Body temperature 98.6 [degF] Kendall Graff PT [facility] 01-28-2024 12:52-0500 Diastolic blood pressure 73 mm[Hg] Kendall Graff PT [facility] 01-28-2024 12:52-0500 Heart rate 69 /min Kendall Graff PT [facility] 01-28-2024 12:52-0500 Respiratory rate 16 /min Kendall Graff PT [facility] 01-28-2024 12:52-0500 SaO2% (BldA) [Mass fraction] 99 % Kendall Graff PT [facility] 01-28-2024 12:52-0500 Systolic blood pressure 142 mm[Hg] Kendall Graff PT [facility] 01-27-2024 10:42-0500 Body temperature 98.6 [degF] Siena Bucionaveed [facility] 01-27-2024 10:42-0500 Diastolic blood pressure 82 mm[Hg] Siena Rondon RN [facility] 01-27-2024 10:42-0500 Heart rate 75 /min Siena Bucionaveed RN [facility] 01-27-2024 10:42-0500 Respiratory rate 16 /min Siena Bucionaveed RN [facility] 01-27-2024 10:42-0500 SaO2% (BldA) [Mass fraction] 96 % Siena Bucionaveed RN [facility] 01-27-2024 10:42-0500 Systolic blood pressure 144 mm[Hg] iSena Bucionaveed RN [facility] 01-15-2024 13:12-0500 Body height 167.6 cm Jass Pepe MD Work Phone: [facility] 01-15-2024 13:12-0500 Body mass index (BMI) [Ratio] 37.93 kg/m2 Jass Pepe MD Work Phone: [facility] 01-15-2024 13:12-0500 Body weight 106.59 kg Jass Pepe MD Work Phone: [facility] 01-15-2024 13:12-0500 Diastolic blood pressure 66 mm[Hg] Jass Pepe MD Work Phone: [facility] 01-15-2024 13:12-0500 Heart rate 82 /min Jass Pepe MD Work Phone: [facility] 01-15-2024 13:12-0500 Systolic blood pressure 143 mm[Hg] Jass Pepe MD Work Phone: [facility] 10-20-2023 13:34-0500 Diastolic blood pressure 91 mm[Hg] Blaine Silveira MD Work Phone: [facility] 10-20-2023 13:34-0500 Systolic blood pressure 156 mm[Hg] Blaine Silveira MD Work Phone: [facility] 10-20-2023 13:24-0500 Body height 170.2 cm Blaine Silveira MD Work Phone: [facility] 10-20-2023 13:24-0500 Body mass index (BMI) [Ratio] 37.28 kg/m2 Blaine Silveira MD Work Phone: [facility] 10-20-2023 13:24-0500 Body weight 107.96 kg Blaine Silveira MD Work Phone: [facility] 10-20-2023 13:24-0500 Heart rate 74 /min Blaine Silveira MD Work Phone: [facility] 10-20-2023 13:24-0500 SaO2% (BldA) [Mass fraction] 97 % Blaine Silveira MD Work Phone: [facility] 07-16-2023 09:42-0400 Body mass index (BMI) [Ratio] 36.3 kg/m2 [facility] 07-16-2023 09:42-0400 Body temperature 96.2 [degF] [facility] 07-16-2023 09:42-0400 Diastolic blood pressure 71 mm[Hg] [facility] 07-16-2023 09:42-0400 Heart rate 70 /min [facility] 07-16-2023 09:42-0400 Respiratory rate 16 /min [facility] 07-16-2023 09:42-0400 Systolic blood pressure 174 mm[Hg] [facility] 06-30-2023 00:20-0400 Body weight 102.05 kg [facility] 06-25-2023 10:45-0400 Body height 170.18 cm [facility] 06-25-2023 10:45-0400 Body mass index (BMI) [Ratio] 38.9 kg/m2 [facility] 06-25-2023 10:45-0400 Body temperature 98 [degF] [facility] 06-25-2023 10:45-0400 Body weight 113 kg [facility] 06-25-2023 10:45-0400 Diastolic blood pressure 85 mm[Hg] [facility] 06-25-2023 10:45-0400 Heart rate 74 /min [facility] 06-25-2023 10:45-0400 Respiratory rate 14 /min [facility] 06-25-2023 10:45-0400 SaO2% (BldA) [Mass fraction] 98 % [facility] 06-25-2023 10:45-0400 Systolic blood pressure 206 mm[Hg] [facility] 06-25-2023 09:48-0400 Body mass index (BMI) [Ratio] 36.3 kg/m2 [facility] 06-25-2023 09:48-0400 Body temperature 97 [degF] [facility] 06-25-2023 09:48-0400 Diastolic blood pressure 101 mm[Hg] [facility] 06-25-2023 09:48-0400 Heart rate 82 /min [facility] 06-25-2023 09:48-0400 Respiratory rate 20 /min [facility] 06-25-2023 09:48-0400 Systolic blood pressure 206 mm[Hg] [facility] 05-30-2023 01:32-0400 Body weight 102.05 kg [facility] 05-28-2023 09:48-0400 Body mass index (BMI) [Ratio] 36.3 kg/m2 [facility] 05-28-2023 09:48-0400 Body temperature 96.5 [degF] [facility] 05-28-2023 09:48-0400 Diastolic blood pressure 76 mm[Hg] [facility] 05-28-2023 09:48-0400 Heart rate 78 /min [facility] 05-28-2023 09:48-0400 Respiratory rate 18 /min [facility] 05-28-2023 09:48-0400 Systolic blood pressure 186 mm[Hg] [facility] 04-30-2023 00:46-0400 Body weight 102.05 kg [facility] 04-23-2023 09:49-0400 Body mass index (BMI) [Ratio] 36.3 kg/m2 [facility] 04-23-2023 09:49-0400 Diastolic blood pressure 101 mm[Hg] [facility] 04-23-2023 09:49-0400 Heart rate 73 /min [facility] 04-23-2023 09:49-0400 Systolic blood pressure 169 mm[Hg] [facility] 04-23-2023 09:23-0400 Body temperature 96.6 [degF] [facility] 04-23-2023 09:23-0400 Respiratory rate 18 /min [facility] 04-16-2023 08:58-0400 Body height 167.64 cm [facility] 04-16-2023 08:58-0400 Body weight 102.05 kg [facility] 01-21-2023 09:01-0500 Body height 167.6 cm Angelica Randall CNP Work Phone: [facility] 01-21-2023 09:01-0500 Body mass index (BMI) [Ratio] 38.76 kg/m2 Angelica Randall CNP Work Phone: [facility] 01-21-2023 09:01-0500 Body temperature 98.01 [degF] Angelica Dye LAST TRIMMER Work Phone: [facility] 01-21-2023 09:01-0500 Body weight 108.92 kg Angelica Dye LAST TRIMMER Work Phone: [facility] 01-21-2023 09:01-0500 Diastolic blood pressure 84 mm[Hg] Angelica Dye LAST TRIMMER Work Phone: [facility] 01-21-2023 09:01-0500 Heart rate 67 /min Angelica Dye LAST TRIMMER Work Phone: [facility] 01-21-2023 09:01-0500 Respiratory rate 16 /min Angelica Dye LAST TRIMMER Work Phone: [facility] 01-21-2023 09:01-0500 SaO2% (BldA) [Mass fraction] 98 % Angelica Dye LAST TRIMMER Work Phone: [facility] 01-21-2023 09:01-0500 Systolic blood pressure 198 mm[Hg] Angelica Dye LAST TRIMMER Work Phone: [facility] 02-19-2022 11:13-0400 Diastolic blood pressure 85 mm[Hg] Angelica Dye LAST TRIMMER Work Phone: [facility] 02-19-2022 11:13-0400 Systolic blood pressure 148 mm[Hg] Angelica Dye LAST TRIMMER Work Phone: [facility] 02-19-2022 11:08-0400 Body height 167.6 cm Angelica Dye LAST TRIMMER Work Phone: [facility] 02-19-2022 11:08-0400 Body mass index (BMI) [Ratio] 36.97 kg/m2 Angelica Dye LAST TRIMMER Work Phone: [facility] 02-19-2022 11:08-0400 Body temperature 97.7 [degF] Angelica Dye LAST TRIMMER Work Phone: [facility] 02-19-2022 11:08-0400 Body weight 103.9 kg Angelica Dye LAST TRIMMER Work Phone: [facility] 02-19-2022 11:08-0400 Heart rate 69 /min Angelica Dye LAST TRIMMER Work Phone: [facility] 02-19-2022 11:08-0400 Respiratory rate 16 /min Angelica Dye LAST TRIMMER Work Phone: [facility] 02-19-2022 11:08-0400 SaO2% (BldA) [Mass fraction] 98 % Angelica Dye LAST TRIMMER Work Phone: [facility] 02-03-2022 09:56-0500 Body mass index (BMI) [Ratio] 35.51 kg/m2 Angelica Dye LAST TRIMMER Work Phone: [facility] 02-03-2022 09:56-0500 Body weight 99.79 kg Angelica Dye LAST TRIMMER Work Phone: [facility] 02-03-2022 09:56-0500 Diastolic blood pressure 80 mm[Hg] Angelica Dye LAST TRIMMER Work Phone: [facility] 02-03-2022 09:56-0500 Systolic blood pressure 132 mm[Hg] Angelica Dye LAST TRIMMER Work Phone: [facility] 01-22-2022 07:52-0500 Body temperature 98.01 [degF] Lindsey Plummer MD Work Phone: [facility] 01-22-2022 07:52-0500 Diastolic blood pressure 84 mm[Hg] Lindsey Plummer MD Work Phone: [facility] 01-22-2022 07:52-0500 Heart rate 81 /min Lindsey Plummer MD Work Phone: [facility] 01-22-2022 07:52-0500 Respiratory rate 18 /min Lindsey Plummer MD Work Phone: [facility] 01-22-2022 07:52-0500 SaO2% (BldA) [Mass fraction] 98 % Lindsey Plummer MD Work Phone: [facility] 01-22-2022 07:52-0500 Systolic blood pressure 123 mm[Hg] Lindsey Plummer MD Work Phone: [facility] 01-22-2022 04:08-0500 Body mass index (BMI) [Ratio] 37.28 kg/m2 Lindsey Plummer MD Work Phone: [facility] 01-22-2022 04:08-0500 Body weight 104.78 kg Lindsey Plummer MD Work Phone: [facility] 01-21-2022 11:49-0500 Respiratory rate 0 /min Lindsey Plummer MD Work Phone: [facility] 01-21-2022 08:20-0500 Body height 167.6 cm Lindsey Plummer MD Work Phone: [facility] 01-09-2022 09:44-0500 Body height 167.6 cm Meir Arthur MD Work Phone: [facility] 01-09-2022 09:44-0500 Body mass index (BMI) [Ratio] 37.82 kg/m2 Meir Arthur MD Work Phone: [facility] 01-09-2022 09:44-0500 Body temperature 98.01 [degF] Meir Arthur MD Work Phone: [facility] 01-09-2022 09:44-0500 Body weight 106.3 kg Meir Arthur MD Work Phone: [facility] 01-09-2022 09:44-0500 Diastolic blood pressure 80 mm[Hg] Meir Arthur MD Work Phone: [facility] 01-09-2022 09:44-0500 Heart rate 78 /min Meir Arthur MD Work Phone: [facility] 01-09-2022 09:44-0500 Respiratory rate 18 /min Meir Arthur MD Work Phone: [facility] 01-09-2022 09:44-0500 SaO2% (BldA) [Mass fraction] 97 % Meir Arthur MD Work Phone: [facility] 01-09-2022 09:44-0500 Systolic blood pressure 143 mm[Hg] Meir Arthur MD Work Phone: [facility] 01-09-2022 09:36-0500 Body height 167.6 cm Lindsey Plummer MD Work Phone: [facility] 01-09-2022 09:36-0500 Body mass index (BMI) [Ratio] 37.82 kg/m2 Lindsey Plummer MD Work Phone: [facility] 01-09-2022 09:36-0500 Body temperature 98.01 [degF] Lindsey Plummer MD Work Phone: [facility] 01-09-2022 09:36-0500 Body weight 106.3 kg Lindsey Plummer MD Work Phone: [facility] 01-09-2022 09:36-0500 Diastolic blood pressure 80 mm[Hg] Lindsey Plummer MD Work Phone: [facility] 01-09-2022 09:36-0500 Heart rate 78 /min Lindsey Plummer MD Work Phone: [facility] 01-09-2022 09:36-0500 Respiratory rate 16 /min Lindsey Plummer MD Work Phone: [facility] 01-09-2022 09:36-0500 SaO2% (BldA) [Mass fraction] 97 % Lindsey Plummer MD Work Phone: [facility] 01-09-2022 09:36-0500 Systolic blood pressure 143 mm[Hg] Lindsey Plummer MD Work Phone: [facility] 06-10-2021 11:16-0400 Body height 167.6 cm Blaine Silveira MD Work Phone: [facility] 06-10-2021 11:16-0400 Body mass index (BMI) [Ratio] 36.8 kg/m2 Blaine Silveira MD Work Phone: [facility] 06-10-2021 11:16-0400 Body weight 103.42 kg Blaine Silveira MD Work Phone: [facility] 06-10-2021 11:16-0400 Diastolic blood pressure 73 mm[Hg] Blaine Silveira MD Work Phone: [facility] 06-10-2021 11:16-0400 Heart rate 73 /min Blaine Silveira MD Work Phone: [facility] 06-10-2021 11:16-0400 SaO2% (BldA) [Mass fraction] 98 % Blaine Silveira MD Work Phone: [facility] 06-10-2021 11:16-0400 Systolic blood pressure 148 mm[Hg] Blaine Silveira MD Work Phone: [facility] 06-06-2019 14:33-0400 BMI (Body Mass Index) 42.97 kg/m2 Blaine Gato [facility] 06-06-2019 14:33-0400 Body weight 120.75 kg Blaine Silveira [facility] 06-06-2019 14:33-0400 BP Diastolic 75 mm[Hg] Blaine Silveira [facility] 06-06-2019 14:33-0400 BP Systolic 159 mm[Hg] Blaine Silveira [facility] 06-06-2019 14:33-0400 Height 167.6 cm Blaine Silveira [facility] 06-06-2019 14:33-0400 Pulse (Heart Rate) 71 /min Blaine Silveira [facility] 06-06-2019 14:33-0400 Pulse Oximetry 96 % Blaine Gato [facility] Encounters Encounter Date Encounter Type Care Provider Facility Start: 05-30-2025 Evaluation and manag ement of inpatient Dr. Nicol Silva DO -Progressive Care Unit Work Phone: Start: 12-19-2024 End: 12-19-2024 ambulatory Kirill Newell Facility:[facility] Start: 05-27-2024 ambulatory Kirill Newell Facility:[facility] Start: 05-27-2024 End: 05-27-2024 ambulatory Kirill Newell Facility:[facility] Start: 03-25-2024 End: 03-29-2024 ambulatory JASS MALDONADO [facility] Ambulatory Start: 03-25-2024 End: 03-25-2024 Postop follow up visit related to original px Jass Pepe MD Work Phone: [facility] Comment on above: Status post total ri ght knee replacement (Primary Dx) Start: 03-11-2024 End: 03-15-2024 ambulatory [facility] Start: 03-11-2024 End: 03-11-2024 [facility]ulatory [facility] Comment on above: Status post total ri ght knee replacement (Primary Dx) Start: 03-09-2024 End: 03-13-2024 [facility] Start: 03-09-2024 End: 03-09-2024 ambulatory [facility] Pepe [facility] Comment on above: Status post total ri ght knee replacement (Primary Dx) Start: 03-07-2024 End: 03-11-2024 ambulatory [facility] Start: 03-07-2024 End: 03-07-2024 ambulatory [facility] Pepe MD [facility] Comment on above: Status post total ri ght knee replacement (Primary Dx) Start: 03-04-2024 End: 03-08-2024 ambulatory [facility] Start: 03-04-2024 End: 03-04-2024 ambulatory J[facility] Pepe MD [facility] Comment on above: Status post total ri ght knee replacement (Primary Dx) Start: 03-02-2024 End: 03-06-2024 ambulatory [facility] Start: 03-02-2024 End: 03-02-2024 ambulatory Jass Pepe MD [facility] Comment on above: Status post total ri ght knee replacement (Primary Dx) Start: 02-29-2024 End: 03-04-2024 ambulatory [facility] Start: 02-29-2024 End: 02-29-2024 ambulatory Jass Pepe MD Work Phone: [facility] Comment on above: Status post total ri ght knee replacement (Primary Dx) Start: 02-26-2024 End: 03-01-2024 ambulatory JASS COLE [facility] Start: 02-26-2024 End: 02-26-2024 ambulatory [facility] Pepe [facility] Comment on above: Status post total ri ght knee replacement (Primary Dx) Start: 02-24-2024 End: 02-28-2024 [facility] Start: 02-24-2024 End: 02-24-2024 ambulatory Jass Pepe MD Work Phone: [facility] Comment on above: Status post total ri ght knee replacement (Primary Dx) Start: 02-22-2024 End: 02-26-2024 ambulatory [facility] Start: 02-22-2024 End: 02-22-2024 ambulatory Jass Pepe MD Work Phone: [facility] Comment on above: Status post total ri ght knee replacement (Primary Dx) Start: 02-19-2024 End: 02-23-2024 [facility] Start: 02-19-2024 End: 02-19-2024 ambulatory Jass Pepe MD Work Phone: [facility] Comment on above: Status post total ri ght knee replacement (Primary Dx) Start: 02-17-2024 End: 02-21-2024 ambulatory [facility] Start: 02-17-2024 End: 02-17-2024 ambulatory Jass Pepe MD Work Phone: [facility] Comment on above: Status post total ri ght knee replacement (Primary Dx) Start: 02-15-2024 End: 02-19-2024 ambulatory JASS PEPE [facility] Start: 02-15-2024 End: 02-15-2024 ambulatory Jass Pepe MD Work Phone: [facility] Comment on above: Status post total ri ght knee replacement Start: 02-12-2024 End: 02-12-2024 ambulatory NICOL IBANEZ [facility] Ambulatory Start: 02-12-2024 End: 02-12-2024 Postop follow up visit related to original px Jass Pepe MD Work Phone: [facility] Comment on above: Status post total ri ght knee replacement (Primary Dx) Start: 02-12-2024 Home visit Kendall Graff PT [facility] Comment on above: PT OASIS DISCHARGE Start: 02-11-2024 End: 02-11-2024 Home visit Lindsey Centeno RN [facility] Comment on above: SN HH NON-OASIS/DISC IPLINE DC Start: 02-10-2024 End: 02-10-2024 Home visit Cristhian Byrnes [facility] Comment on above: FINISHING AREA OPERATOR ROUTINE VISIT Start: 02-09-2024 End: 02-09-2024 Home visit Lisa Odell [facility] Comment on above: DAY CARE CENTER DIRECTOR HH ROUTINE Start: 02-08-2024 End: 02-08-2024 Refill Jass Pepe MD Work Phone: [facility] Comment on above: Status post total ri ght knee replacement (Primary Dx) FINISHING AREA OPERATOR ROUTINE VISIT Start: 02-05-2024 End: 02-05-2024 Home visit Cristhian Byrnes [facility] Comment on above: FINISHING AREA OPERATOR ROUTINE VISIT DAY CARE CENTER DIRECTOR HH ROUTINE Start: 02-03-2024 End: 02-03-2024 Home visit Cristhian Byrnes [facility] Comment on above: FINISHING AREA OPERATOR ROUTINE VISIT SN HH ROUTINE VISIT Start: 02-01-2024 Documentation procedure Yen gold LPN [facility] Start: 02-01-2024 End: 02-01-2024 Home visit Cristhian Byrnes [facility] Comment on above: FINISHING AREA OPERATOR ROUTINE VISIT Start: 01-28-2024 End: 01-28-2024 Home visit Kendall Graff PT [facility] Comment on above: PT INITIAL EVALUATIO N Start: 01-27-2024 End: 02-12-2024 [facility] Start: 01-27-2024 End: 01-27-2024 Home visit Siena Rondon RN [facility] Comment on above: SN HH OASIS START OF CARE Start: 01-26-2024 End: 01-26-2024 ambulatory [facility] Start: 01-15-2024 End: 01-15-2024 [facility] Start: 01-15-2024 End: 01-15-2024 Office outpatient visit 15 minutes Jass Pepe MD Work Phone: [facility] Comment on above: Osteoarthritis of ri ght knee, unspecified osteoarthritis type (Primary Dx) Start: 01-11-2024 Documentation procedure Yen gold LPN [facility] Comment on above: 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) Start: 01-07-2024 End: 01-11-2024 ambulatory [facility] Start: 12-14-2023 End: 12-14-2023 ambulatory [facility] Work Phone: Start: 12-14-2023 End: 12-14-2023 Patient encounter procedure [facility] Work Phone: Start: 11-12-2023 End: 11-12-2023 ambulatory [facility] Work Phone: Start: 11-12-2023 End: 11-12-2023 Patient encounter procedure [facility] Work Phone: Start: 11-09-2023 End: 11-10-2023 ambulatory [facility] Start: 11-04-2023 End: 11-05-2023 ambulatory [facility] Start: 11-02-2023 End: 11-03-2023 ambulatory [facility] Start: 10-28-2023 End: 10-29-2023 ambulatory [facility] Start: 10-26-2023 End: 10-27-2023 ambulatory [facility] Start: 10-21-2023 End: 10-22-2023 ambulatory [facility] Start: 10-20-2023 End: 10-20-2023 ambulatory NICOL OSBORN [facility] Ambulatory Start: 10-20-2023 End: 10-20-2023 Office outpatient visit 25 minutes Blaine Silveira MD Work Phone: [facility] Comment on above: Coronary artery dise ase involving [place] 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 angina pectoris (Primary Dx); Osteoarthritis of right knee, unspecified osteoarthritis type; Severe aortic insufficiency Start: 10-19-2023 End: 10-20-2023 ambulatory [facility] Start: 10-14-2023 End: 10-15-2023 ambulatory [facility] Start: 10-12-2023 End: 10-13-2023 ambulatory [facility] Start: 10-09-2023 End: 10-10-2023 ambulatory [facility] Start: 10-07-2023 End: 10-08-2023 ambulatory [facility] Start: 09-29-2023 End: 09-29-2023 ambulatory [facility] Start: 09-25-2023 [facility] Jass Pepe MD Work Phone: [facility] Comment on above: Osteoarthritis of ri ght knee, unspecified osteoarthritis type (Primary Dx); Hypertension, unspecified type Start: 09-14-2023 End: 09-18-2023 ambulatory NICOL OSBORN [facility] Ambulatory Start: 07-16-2023 End: 08-17-2023 ambulatory [facility] Work Phone: Start: 07-16-2023 End: 07-16-2023 Discharged [facility] Work Phone: Start: 06-25-2023 End: 06-25-2023 Emergency department patient visit [facility] Work Phone: Start: 06-25-2023 End: 06-29-2023 ambulatory [facility] Work Phone: Start: 06-25-2023 End: 06-29-2023 Discharged [facility] Work Phone: Start: 06-25-2023 Registered [facility] Work Phone: Start: 05-28-2023 End: 05-29-2023 ambulatory [facility] Work Phone: Start: 05-28-2023 End: 05-29-2023 Discharged [facility] Work Phone: Start: 04-23-2023 End: 04-29-2023 ambulatory [facility] Work Phone: Start: 04-23-2023 End: 04-29-2023 Discharged [facility] Start: 01-22-2023 ambulatory TERRIE Cavazos [facility] Start: 01-21-2023 End: 01-25-2023 ambulatory [facility] Start: 01-21-2023 End: 01-22-2023 ambulatory ANGELICA RANDALL [facility] Start: 01-21-2023 End: 01-21-2023 Office outpatient visit 25 minutes Angelica Randall [facility] Work Phone: [facility] Comment on above: S/P TAVR (transcathe ter aortic valve replacement) (Primary Dx); Hypertension, unspecified type Start: 06-19-2022 Orders Only Terrie Núñez [facility] Comment on above: S/P TAVR (transcathe [...] Orders Only Blaine hines MD Work Phone: [facility] Start: 03-31-2022 [...] [id number] Start: 02-19-2022 End: 02-23-2022 ambulatory NICOL [facility] Start: 02-19-2022 End: 02-19-2022 Office outpatient visit 15 minutes Angelica Randall CNP Work Phone: [facility] Comment on above: S/P TAVR (transcathe ter aortic valve replacement) (Primary Dx) Start: 02-17-2022 ambulatory [facility] [id number] Start: 02-14-2022 ambulatory [facility] [id number] Start: 02-12-2022 ambulatory [facility] [id number] Start: 02-10-2022 ambulatory [facility] [id number] Start: 02-03-2022 End: 02-03-2022 Phys/qhp telephone evaluation 11-20 min Angelica Randall CNP Work Phone: [facility] Comment on above: S/P TAVR (transcathe ter aortic valve replacement) (Primary Dx) Start: 01-22-2022 Orders Only Terrie Núñez [facility] Comment on above: S/P TAVR (transcathe ter aortic valve replacement) (Primary Dx) S/P TAVR (transcathe ter aortic valve replacement) (Primary Dx); Shortness of breath Start: 01-21-2022 End: 01-22-2022 Evaluation and management of inpatient Lindsey Plummer MD Work Phone: [facility] Start: 01-14-2022 Orders for Hospital Batool mendez Lynne LAST TRIMMER Work Phone: [facility] Start: 01-13-2022 Orders Only Angelica Taylor Andrey ayers LAST TRIMMER Work Phone: [facility] Comment on above: Encounter for prepro cedure screening laboratory testing for COVID-19 (Primary Dx) Start: 01-13-2022 Patient encounter status Muriel zuniga RN [facility] Start: 01-10-2022 Orders Only Clau Michaud RN [facility] Comment on above: Aortic valve stenosi s, severe (Primary Dx); Severe aortic insufficiency Start: 01-09-2022 Orders Only Terrie Oh RN [facility] Comment on above: Encounter for preope rative screening laboratory testing for COVID-19 virus (Primary Dx) Start: 01-09-2022 End: 01-09-2022 Patient encounter status Terrie Oh RN [facility] Start: 01-09-2022 End: 01-09-2022 Office outpatient new 45 minutes Meir Arthur MD Work Phone: [facility] Comment on above: Severe aortic insuff iciency (Primary Dx); Aortic valve stenosis, severe; Pre-operative cardiovascular examination Aortic valve stenosi s, severe; Pre-operative cardiovascular examination Start: 01-07-2022 Orders for Hospital Terrie naik RN [facility] Comment on above: Aortic valve stenosi s, severe (Primary Dx); Pre-operative cardiovascular examination; Other abnormal findings in urine ; Abnormal coagulation profile ; Dyspnea, unspecified type ; Abnormal finding of blood chemistry, unspecified Start: 01-07-2022 Patient encounter status Terrie Warren RN [facility] Start: 01-01-2022 Orders Only Terrie Núñez [facility] Comment on above: Encounter for prepro cedure screening laboratory testing for COVID-19 (Primary Dx) Start: 01-01-2022 Patient encounter status Terrie Warren RN [facility] Start: 12-31-2021 Orders Only Terrie Núñez [facility] Comment on above: Aortic valve stenosi s, severe (Primary Dx); Pre-operative cardiovascular examination; Other specified symptoms and signs involving the circulatory and respiratory systems Start: 12-31-2021 Patient encounter status Terrie Warren RN [facility] Start: 06-24-2021 End: 06-24-2021 Orders Only Iliana Madsen RN [facility] Comment on above: Nonrheumatic aortic valve insufficiency (Primary Dx) Start: 06-10-2021 End: 06-10-2021 Orders Only Iliana Madsen RN [facility] Comment on above: Coronary artery dise ase involving chick[place] ind[place] 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 angina pectoris (Primary Dx) Nonrheumatic aortic valve insufficiency (Primary Dx) Start: 06-10-2021 End: 06-10-2021 Office outpatient visit 25 minutes Blaine Silveria MD Work Phone: [facility] Comment on above: Coronary artery dise ase involving [place] ind[place] 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 angina pectoris; Nonrheumatic aortic valve insufficiency; Elevated sed rate; Mixed hyperlipidemia Start: 01-23-2021 End: 01-23-2021 Orders Only Mustapha Al Work Phone: [facility] Start: 06-14-2019 End: 06-14-2019 Subsequent hospital visit by physician Blaine Silveira Work Phone: [facility] Comment on above: Nonrheumatic aortic valve insufficiency Start: 06-06-2019 End: 06-06-2019 Office outpatient visit 25 minutes [facility]ira [facility] Comment on above: SOB (shortness of br eath); Coronary artery disease involving chick[place]om[place] indian 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 angina pectoris; Fibrosing mediastinitis; Nonrheumatic aortic valve insufficiency Start: 01-05-2018 Ambulatory Blaine Silveira [facility] erika:[facility] Start: 01-05-2018 End: 01-05-2018 Ambulatory Blaine Shieldsishman Work Phone: [facility] Procedures Date Procedure Procedure Detail [...] trcg only w/o i&r Angelica Claudia Dye LAST TRIMMER Work Phone: Start: 02-19-2022 Ecg routine ecg w/le ast 12 lds trcg only w/o i&r Angelica Claudia Dye LAST TRIMMER Work Phone: Start: 01-22-2022 Ecg routine ecg w/le ast 12 lds trcg only w/o i&r Angelica Claudia Dye LAST TRIMMER Work Phone: Start: 01-22-2022 Basic metabolic pane l calcium total Angelica Claudia Dye LAST TRIMMER Work Phone: Start: 01-21-2022 Potassium serum plasma/whole blood Angelica Claudia Dye LAST TRIMMER Work Phone: Start: 01-21-2022 Dup-scan lxtr art/ar tl bpgs uni/lmtd study Angelcia Randall LAST TRIMMER Work Phone: Start: 01-21-2022 Basic metabolic pane l calcium total Angelica Randall LAST TRIMMER Work Phone: Start: 01-21-2022 Radiologic exam ches t single view Angelica Randall LAST TRIMMER Work Phone: Start: 01-21-2022 Ecg routine ecg w/le ast 12 lds trcg only w/o i&r Angelicaarmen Randall LAST TRIMMER Work Phone: Start: 01-21-2022 Cardiac catheterization Angelica Randall LAST TRIMMER Work Phone: Start: 01-21-2022 2D TTE w or w/o fol w/con,fu Batool Batista LAST TRIMMER Work Phone: Start: 01-21-2022 Sodium serum plasma [...] Activity Detail Author Start: 11-07-2026 Tetanus vaccination [facility] Start: 05-30-2025 Verification routine [facility] Start: 05-30-2025 Admission procedure [facility] Start: 05-30-2025 Hospital admission, emergency, from emergency room, medical nature [facility] Start: 09-13-2024 Fall risk assessment Falls Risk Assessment [facility] Start: 03-18-2024 End: 03-18-2024 Follow-up encounter 03/18/2024 2:30 PM EDT Follow-Up [facility] [address] [place] [address] Jass Pepe MD [address] [place] [address] [facility] Start: 03-11-2024 End: 03-11-2024 ambulatory [facility] Start: 03-09-2024 End: 03-09-2024 ambulatory [facility] Start: 03-07-2024 End: 03-07-2024 ambulatory [facility] Start: 03-04-2024 End: 03-04-2024 ambulatory 03/04/2024 10:45 AM [facility] [address] [place] [id number] Jass Pepe MD [address] [place] [address] Gabriel Tovar PTA [facility] Start: 03-02-2024 End: 03-02-2024 ambulatory 03/02/2024 10:45 AM EDT [facility] [address] [place] [address] Jass Pepe MD [address] [place] [id number] Dajuan Arroyo, PT [facility] Start: 02-29-2024 End: 02-29-2024 ambulatory 02/29/2024 10:45 AM EDT [facility] [address] [place] [address] Jass Pepe MD [address] [place] [address] Gabriel Tovar [facility] Start: 02-26-2024 End: 02-26-2024 ambulatory 02/26/2024 10:45 AM EDT [facility] [address] [place] [address] Jass Pepe MD [address] [place] [address] Sherlyn Villavicencio [facility] Start: 02-24-2024 End: 02-24-2024 ambulatory 02/24/2024 10:45 AM EDT [facility] [address] [place] [address] Jass Pepe MD [address] [place] [address] Gabriel Tovar [facility] Start: 02-22-2024 End: 02-22-2024 ambulatory 02/22/2024 10:45 AM EDT [facility] [address] [place] [address] Jass Pepe MD [address] [place] [id number] Dajuan Arroyo, PT [facility] Start: 02-19-2024 End: 02-19-2024 ambulatory 02/19/2024 10:45 AM EDT [facility] [address] [place] [address] Jass Pepe MD [address] [place] [phone] Gabriel Tovar, FINISHING AREA OPERATOR [facility] Start: 02-17-2024 End: 02-17-2024 ambulatory 02/17/2024 10:45 AM EDT [facility] [address] [place] [address] Jass Pepe MD [address] [place] [address] Gabriel Tovar, FINISHING AREA OPERATOR Discharge Disposition: [facility] Start: 02-15-2024 End: 02-15-2024 ambulatory 02/15/2024 10:45 AM EDT [facility] [address] [place] [address] Jass Pepe MD [address] [place] [address] Dajuan Arroyo, PT Discharge Disposition: Home [facility] Start: 02-12-2024 End: 02-12-2024 Follow-up encounter 02/12/2024 2:15 PM EDT Follow-Up [facility] [address] [place] [address] Jass Pepe MD [address] [place] [address] [facility] Start: 02-12-2024 End: 02-12-2024 Home visit 02/12/2024 8:00 AM EDT Home Care Visit [address] [address] Kendall Graff, PT [facility] Start: 02-11-2024 End: 02-11-2024 Patient encounter procedure [facility] Start: 02-11-2024 End: 02-11-2024 Home visit 02/11/2024 3:30 AM EDT Home Care Visit [place] [phone] Kendall Graff, PT [facility] Start: 02-11-2024 End: 02-11-2024 Patient encounter procedure 02/11/2024 Appointment [place] [phone] Lindsey Centeno RN [facility] Start: 02-10-2024 End: 02-10-2024 Home visit 02/10/2024 10:00 AM EDT Home Care Visit [place] [phone] Cristhian Byrnes PTA [facility] Start: 02-09-2024 End: 02-10-2024 Home visit [facility] Start: 02-08-2024 End: 02-09-2024 Home visit [facility] Start: 02-05-2024 End: 02-05-2024 Home visit 02/05/2024 10:00 AM EST Home Care Visit [address] [address] Cristhian Byrnes PTA [facility] Start: 02-05-2024 End: 02-05-2024 Home visit [facility] Start: 02-03-2024 End: 02-03-2024 Home visit 02/03/2024 11:00 AM EST Home Care Visit [address] [address] Cristhian Byrnes PTA [facility] Start: 02-03-2024 End: 02-03-2024 Home visit 02/03/2024 Home Care Visit [address] [address] Cristhian Byrnes PTA [facility] Start: 01-28-2024 End: 01-28-2024 Home visit [facility] Start: 01-26-2024 End: 01-26-2024 Admission to same day surgery center 01/26/2024 2:11 PM EST - 01/26/2024 4:14 PM EST Surgery [facility] [address] [place] [address] Jass Pepe MD [address] [place] [address] Right total knee replacement Robotic [facility] Comment on above: Right total knee replacement Robotic Start: 01-26-2024 End: 01-26-2024 ARTHROPLASTY KNEE TOTAL ROBOTIC ARTHROPLASTY KNEE TOTAL ROBOTIC Osteoarthritis of right knee, unspecified osteoarthritis type 01/26/2024 2:11 PM EST [facility] Start: 01-26-2024 Subsequent hospital visit by physician 01/26/2024 2:11 PM EST Hospital Encounter [facility] [address] [place] [address] Jass Pepe MD [address] [place] [address] [facility] Start: 01-15-2024 End: 01-15-2024 Patient encounter procedure 01/15/2024 1:15 PM EST Surgical Consult [facility] [address] [place] [address] Jass Pepe MD [address] [place] [address] [facility] Start: 2023 End: 2023 Admission to same day surgery center 2023 7:05 AM EST - 2023 9:08 AM EST Surgery [facility] [address] [place] [address] Jass Pepe MD [address] [place] [address] Right total knee replacement Robotic [facility] Comment on above: Right total knee replacement Robotic Start: 2023 End: 2023 ARTHROPLASTY KNEE TOTAL ROBOTIC ARTHROPLASTY KNEE TOTAL ROBOTIC Osteoarthritis of right knee, unspecified osteoarthritis type 2023 7:05 AM EST [facility] Start: 2023 Subsequent hospital visit by physician [facility] Start: 12-11-2023 End: 12-11-2023 Patient encounter procedure 12/11/2023 1:00 PM EST Surgical Consult [facility] [address] [place] [address] Jass Pepe MD [address] [place] [address] [facility] Start: 12-03-2023 End: 12-03-2023 Patient encounter procedure 12/03/2023 10:30 AM EST Appointment [facility] CT Scan [address] [place] [address] Jass Pepe MD [address] [place] [address] [facility] [address] Scan Start: 12-03-2023 End: 12-03-2023 Patient encounter procedure 12/03/2023 7:15 AM EST Office Visit [facility] Preadmission Testing [address] [place] [address] [facility] Start: 11-30-2023 Administration of herpes zoster vaccine Zoster Vaccines (2 of 2) [facility] Start: 07-31-2023 COVID-19 Vaccine ( season) COVID-19 Vaccine ( season) [facility] Start: 07-31-2023 Influenza vaccination Sequential Influenza Vaccine (#1) [facility] Start: 06-25-2023 Simple repair f/e/e/n/l/m 2.5cm/< RPR F/E/E/N/L/M 2.5 CM/< [facility] Start: 01-21-2023 End: 01-21-2023 Patient encounter procedure [facility] Start: 07-31-2022 Influenza vaccination Sequential Influenza Vaccine (#1) [facility] Start: 04-28-2022 COVID-19 Vaccine (5 - Booster for Pfizer series) COVID-19 Vaccine (5 - Booster for Pfizer series) [facility] Start: 04-04-2022 End: 04-04-2022 Patient encounter procedure 04/04/2022 Office Visit Cardiology Blaine Silveira MD [address] [facility] [address] [place] [address] [facility] Start: 02-19-2022 End: 02-19-2022 Patient encounter procedure [facility] Start: 02-03-2022 End: 02-03-2022 Telemedicine consultation with patient 02/03/2022 Telemedicine Telephone Cardiology Angelica Randall, LAST TRIMMER [address] [address] [facility] Start: 01-21-2022 End: 01-21-2022 Admission to same day surgery center 01/21/2022 Surgery Lindsey Plummer MD [address] [facility] [address] [place] [address] Transcatheter Aortic Valve Replacement [facility] Comment on above: Transcatheter Aortic Valve Replacement Start: 01-21-2022 Subsequent hospital visit by physician 01/21/2022 Hospital Encounter Lindsey Plummer MD [address] [facility] [address] [place] [address] [facility] Start: 01-21-2022 End: 01-21-2022 TRANSCATHETER AORTIC VALVE REPLACEMENT FEMORAL APPROACH TRANSCATHETER AORTIC VALVE REPLACEMENT FEMORAL APPROACH severe aortic stenosis 01/21/2022 10:30 AM EST [facility] Start: 01-17-2022 End: 01-17-2022 Patient encounter procedure 01/17/2022 Office Visit Lab Angelica Randall, LAST TRIMMER [address] [place] [address] [facility] Start: 01-15-2022 End: 01-15-2022 Admission to same day surgery center [facility] Insurance Appraiser Comment on above: Left Heart Cath Possbile PTCA/Stent LEFT HEART CATH Start: 01-15-2022 Subsequent hospital visit by physician 01/15/2022 Hospital Encounter Silvio Mckeon MD [address] [facility] [address] [place] [address] [facility] Procedural Care Unit Start: 01-09-2022 End: 01-10-2022 Patient encounter procedure [facility] Start: 01-09-2022 Subsequent hospital visit by physician [facility] CT Start: 01-06-2022 End: 01-06-2022 Patient encounter procedure 01/06/2022 Office Visit Lab Angelica Randall, LAST TRIMMER [address] [address] [facility] Start: 12-25-2021 End: 08-25-2022 Echocardiography Echocardiogram complete Echocardiography Routine Nonrheumatic aortic valve insufficiency Expected: 12/25/2021 (Approximate), Expires: 08/25/2022 [facility] Comment on above: Expected: 12/25/2021 (Approximate), Expi res: 08/25/2022 Start: 07-31-2021 Influenza vaccination Sequential Influenza Vaccine (#1) [facility] Start: 06-21-2021 End: 06-21-2021 Patient encounter procedure 06/21/2021 Appointment Cardiology Blaine Silveira MD [address] [place] [address] [phone] [facility] Start: 05-25-2021 Pneumococcal vaccination Pneumococcal Vaccine Age 65+ (2 of 2 - PPSV23) [facility] Start: 07-31-2020 Influenza vaccination given Sequential Influenza Vaccine (#1) [facility] Start: 2019 Fall risk assessment Falls Risk Assessment [facility] Start: 07-31-2019 Influenza vaccination given SEQUENTIAL INFLUENZA VACCINE (#1) [facility] Start: 06-14-2019 End: 06-14-2019 Appointment 06/14/2019 Appointment Cardiology Blaine Silveira MD [address] [place] [address] [phone] [facility] Start: 07-31-2017 Influenza vaccination SEQUENTIAL INFLUENZA VACCINE (#1) [facility] Work Phone: Start: 2014 Zoster vacc, sc ZOSTER VACCINE [facility] Work Phone: Start: 2004 Administration of herpes zoster vaccine Zoster Vaccines (1 of 2) [facility] Start: 2004 Screening for malignant neoplasm of colon [facility] Start: 1994 Screening for malignant neoplasm of breast Mammogram [facility] Start: 1994 Screening mammography Mammogram [facility] Start: 1970 COVID-19 Vaccine (1 of 2) COVID-19 Vaccine (1 of 2) [facility] Start: 1966 Adolescent depression screening assessment Depression Screening (PHQ9) [facility] Start: 1966 Depression screening using PHQ-9 (Patient Health Questionnaire 9) score [facility] Start: 1960 Pneumococcal Vaccine: Age 65+ (1 of 2 - PPSV23) Pneumococcal Vaccine: Age 65+ (1 of 2 - PPSV23) [facility] Start: 1957 History and physical examination, annual for health maintenance Wellness Visit [facility] Start: 1954 Fall risk assessment Falls Risk Assessment [facility] Start: 1954 Physical therapy management PT Plan of Care [facility] Start: 1954 Screening colonoscopy COLONOSCOPY [facility] Work Phone: Start: 1954 Screening for malignant neoplasm of cervix PAP SMEAR [facility] Work Phone: Start: 1954 Screening for malignant neoplasm of colon [facility] Start: 1954 Screening for osteoporosis Dexa Scan [facility] Start: 1954 Screening mammography Mammogram [facility] Start: 1954 Tetanus vaccination TETANUS EVERY 10 YR [facility] Work Phone: End: 12-31-2022 12 lead ECG ECG 12 Lead ECG Routine Aortic valve stenosis, severe Pre-operative cardiovascular examination 1 Occurrences starting 12/31/2021 until 12/31/2022 [facility] Comment on above: 1 Occurrences starting 12/31/2021 until 12/31/2022 End: 01-22-2023 12 lead ECG ECG 12 Lead ECG Routine S/P TAVR (transcatheter aortic valve replacement) 1 Occurrences starting 01/22/2022 until 01/22/2023 [facility] Comment on above: 1 Occurrences starting 01/22/2022 until 01/22/2023 End: 06-19-2023 12 lead ECG ECG 12 Lead ECG Routine S/P TAVR (transcatheter aortic valve replacement) 1 Occurrences starting 06/19/2022 until 06/19/2023 [facility] Comment on above: 1 Occurrences starting 06/19/2022 until 06/19/2023 End: 09-25-2024 12 lead ECG ECG 12 Lead ECG Routine Osteoarthritis of right knee, unspecified osteoarthritis type 1 Occurrences starting 09/27/2023 until 09/25/2024 [facility] Comment on above: 1 Occurrences starting 09/27/2023 until 09/25/2024 ARTHROPLASTY KNEE TO FARIHA ROBOTIC ARTHROPLASTY KNEE TOTAL ROBOTIC Osteoarthritis of right knee, unspecified osteoarthritis type [facility] End: 02-13-2023 Basic metabolic 2000 panel - Serum or Plasma Basic metabolic panel Lab Routine S/P TAVR (transcatheter aortic valve replacement) 1 Occurrences starting 02/13/2022 until 02/13/2023 [facility] Comment on above: 1 Occurrences starting 02/13/2022 until 02/13/2023 End: 01-19-2024 Basic metabolic 2000 panel - Serum or Plasma Basic metabolic panel Lab Routine S/P TAVR (transcatheter aortic valve replacement) 1 Occurrences starting 01/19/2023 until 01/19/2024 [facility] Comment on above: 1 Occurrences starting 01/19/2023 until 01/19/2024 End: 09-25-2024 Basic metabolic 2000 panel - Serum or Plasma Basic metabolic panel Lab Routine Osteoarthritis of right knee, unspecified osteoarthritis type 1 Occurrences starting 09/27/2023 until 09/25/2024 [facility] Comment on above: 1 Occurrences starting 09/27/2023 until 09/25/2024 Cardiac catheterization Cardiac Catheterization Cardiac Cath Routine 01/21/2022 12:46 PM EST [facility] End: 02-28-2023 Carotid artery doppler assessment Carotid Duplex Vascular Ultrasound Routine Aortic valve stenosis, severe Pre-operative cardiovascular examination Other specified symptoms and signs involving the circulatory and respiratory systems 1 Occurrences starting 12/31/2021 until 02/28/2023 [facility] Comment on above: 1 Occurrences starting 12/31/2021 until 02/28/2023 End: 02-13-2023 CBC panel - Blood by Automated count CBC Lab Routine S/P TAVR (transcatheter aortic valve replacement) 1 Occurrences starting 02/13/2022 until 02/13/2023 [facility] Comment on above: 1 Occurrences starting 02/13/2022 until 02/13/2023 End: 01-19-2024 CBC panel - Blood by Automated count CBC Lab Routine S/P TAVR (transcatheter aortic valve replacement) 1 Occurrences starting 01/19/2023 until 01/19/2024 [facility] Comment on above: 1 Occurrences starting 01/19/2023 until 01/19/2024 End: 09-25-2024 Complete blood count with white cell differential, manual CBC and differential Lab Routine Osteoarthritis of right knee, unspecified osteoarthritis type Hypertension, unspecified type 1 Occurrences starting 09/27/2023 until 09/25/2024 [facility] Comment on above: 1 Occurrences starting 09/27/2023 until 09/25/2024 End: 12-31-2022 Complete PFT with pre and post bronchodilators Complete PFT with pre and post bronchodilators PFT Routine Aortic valve stenosis, severe Pre-operative cardiovascular examination 1 Occurrences starting 12/31/2021 until 12/31/2022 [facility] Work Phone: Comment on above: 1 Occurrences starting 12/31/2021 until 12/31/2022 End: 09-25-2024 CT Knee Right Without Contrast CT Knee Right Without Contrast Imaging Routine Osteoarthritis of right knee, unspecified osteoarthritis type 1 Occurrences starting 09/27/2023 until 09/25/2024 [facility] Comment on above: 1 Occurrences starting 09/27/2023 until 09/25/2024 End: 06-06-2020 Echocardiography Echocardiogram complete Echocardiography Routine Nonrheumatic aortic valve insufficiency 1 Occurrences starting 06/06/2019 until 06/06/2020 [facility] Comment on above: 1 Occurrences starting 06/06/2019 until 06/06/2020 End: 08-11-2022 Echocardiography Echocardiogram complete Echocardiography Routine Nonrheumatic aortic valve insufficiency 1 Occurrences starting 06/10/2021 until 08/11/2022 [facility] Comment on above: 1 Occurrences starting 06/10/2021 until 08/11/2022 End: 03-22-2023 Echocardiography Echocardiogram complete Echocardiography Routine S/P TAVR (transcatheter aortic valve replacement) 1 Occurrences starting 01/22/2022 until 03/22/2023 [facility] Work Phone: Comment on above: 1 Occurrences starting 01/22/2022 until 03/22/2023 End: 01-22-2022 Echocardiography Echocardiogram complete Echocardiography Routine Once for 1 Occurrences starting 01/22/2022 until 01/22/2022 [facility] Work Phone: Comment on above: Once for 1 Occurrences starting 01/22/20 until 01/22/2022 Echocardiography Echocardiogram complete Echocardiography Routine 01/22/2022 10:04 AM EST [facility] End: 08-20-2023 Echocardiography Echocardiogram complete Echocardiography Routine S/P TAVR (transcatheter aortic valve replacement) 1 Occurrences starting 06/19/2022 until 08/20/2023 [employer] Work Phone: Comment on above: 1 Occurrences starting 06/19/2022 until 08/20/2023 Hemoglobin A1c/Hemoglobin.total in Blood [facility] End: 09-25-2024 Incentive spirometry - Initial Instruction Incentive spirometry - Initial Instruction Respiratory Care Routine Osteoarthritis of right knee, unspecified osteoarthritis type 1 Occurrences starting 09/27/2023 until 09/25/2024 [facility] Work Phone: Comment on above: 1 Occurrences starting 09/27/2023 until 09/25/2024 End: 12-31-2022 Methicillin resistant Staphylococcus aureus [Presence] in Unspecified specimen by Organism specific culture MRSA Culture/Screen Microbiology Routine Aortic valve stenosis, severe Pre-operative cardiovascular examination 1 Occurrences starting 12/31/2021 until 12/31/2022 [facility] Comment on above: 1 Occurrences starting 12/31/2021 until 12/31/2022 Methicillin resistan t Staphylococcus aureus [Presence] in Unspecified specimen by Organism specific culture MRSA Culture/Screen Microbiology Routine Aortic valve stenosis, severe Pre-operative cardiovascular examination 01/09/2022 9:45 AM EST [facility] Work Phone: End: 09-25-2024 Methicillin resistant Staphylococcus aureus [Presence] in Unspecified specimen by Organism specific culture MRSA Culture Microbiology Routine Osteoarthritis of right knee, unspecified osteoarthritis type 1 Occurrences starting 09/27/2023 until 09/25/2024 [facility] Comment on above: 1 Occurrences starting 09/27/2023 until 09/25/2024 End: 02-13-2023 Natriuretic peptide.B prohormone N-Terminal [Mass/volume] in Serum or Plasma NT PRO BNP Lab Routine S/P TAVR (transcatheter aortic valve replacement) Shortness of breath 1 Occurrences starting 02/13/2022 until 02/13/2023 [facility] Comment on above: 1 Occurrences starting 02/13/2022 until 02/13/2023 Patient Education ED Head Injury (Adult) ED Laceration: All Closures [facility] Work Phone: Patient referral [facility] Work Phone: End: 06-11-2022 Radionuclide myocardial perfusion study NM Myocardial Perfusion Multiple SPECT Imaging Routine Coronary artery disease involving 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 angina pectoris 1 Occurrences starting 06/10/2021 until 06/11/2022 [facility] Comment on above: 1 Occurrences starting 06/10/2021 until 06/11/2022 End: 01-09-2023 SARS-CoV-2 (COVID-19) RdRp gene [Presence] in Respiratory specimen by MAXIMUS with probe detection COVID-19, Molecular Microbiology Routine Encounter for preoperative screening laboratory testing for COVID-19 virus 1 Occurrences starting 01/09/2022 until 01/09/2023 [facility] Work Phone: Comment on above: 1 Occurrences starting 01/09/2022 until 01/09/2023 End: 01-13-2023 SARS-CoV-2 (COVID-19) RdRp gene [Presence] in Respiratory specimen by MAXIMUS with probe detection COVID-19, Molecular Microbiology Routine Encounter for preprocedure screening laboratory testing for COVID-19 1 Occurrences starting 01/13/2022 until 01/13/2023 [facility] Work Phone: Comment on above: 1 Occurrences starting 01/13/2022 until 01/13/2023 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 Vascular Ultrasound Routine 01/21/2022 2:16 PM EST [facility] Immunizations Immunization Date Immunization Notes Care Provider Fa glennaty 10-05-2024 Pfizer Covid-19 (Comirnaty) Dr. Kirill Newell MD Work Phone: [facility] 01-11-[address] Kirill Newell MD Work Phone: [facility] Payers Date Payer Category Payer Self-pay [id number] 2019 Medicare MEDICARE MEDICAR E PART A & B [id number] 2019-Present [place] [id number] 2019 Medicare MEDICARE MEDICAR E PART A & B [id number] 2019-Present [phone] [employer] J15 PART A CLAIMS [address] [address] [place] [address] [id number] 2019 Medicare [id number] 2019 Unknown [id number] 2000 Unknown [id number] 2.16.840.1.305623.3.249.13 2000 Unknown [facility] UHC/UH[employer] LDEN RULE xxxxxxxxx 2000-Present xxxxxxxxx [id number] .[id number] 1954 Unknown [id number] 2.16.840.1.036342.3.579.2.106 9 1954 Unknown [id number] 2.16.840.1.868927.3.579.2.106 9 1954 Unknown [id number] 2.16.840.1.250606.3.579.2.106 9 1954 Unknown [id number] 2.16.840.1.395599.3.579.2.106 9 1954 Unknown [id number] 2.16.840.1.192756.3.579.2.106 9 1954 Unknown [id number] 2.16.840.1.477086.3.579.2.106 9 1954 Unknown [id number] 2.16.840.1.796230.3.579.2.106 9 1954 Unknown [id number] 2.16.840.1.696248.3.579.2.106 9 1954 Unknown [id number] 2.16.840.1.345821.3.579.2.106 9 1954 Unknown [id number] 2.16.840.1.103402.3.579.2.106 9 1954 Unknown [id number] 2.16.840.1.806461.3.579.2.106 9 1954 Unknown [id number] 2.16.840.1.980775.3.579.2.106 9 1954 Unknown [id number] 2.16.840.1.971908.3.579.2.106 9 1954 Unknown [id number] 2.16.840.1.560787.3.579.2.106 9 1954 Unknown [id number] 2.16.840.1.976861.3.579.2.106 9 1954 Unknown [id number] 2.16.840.1.043680.3.579.2.106 9 1954 Unknown [id number] 2.16.840.1.655046.3.579.2.106 9 1954 Unknown [id number] 2.16.840.1.172108.3.579.2.106 9 1954 Unknown [id number] 2.16.840.1.245440.3.579.2.106 9 1954 Unknown [id number] 2.16.840.1.089351.3.579.2.106 9 1954 Unknown [id number] 2.16.840.1.032164.3.579.2.106 9 1954 Unknown [id number] 2.16.840.1.691787.3.579.2.106 9 1954 Unknown [id number] 2.16.840.1.872897.3.579.2.106 9 1954 Unknown [id number] 2.16.840.1.798567.3.579.2.106 9 1954 Unknown [id number] 2.16.840.1.028484.3.579.2.106 9 1954 Unknown [id number] 2.16.840.1.833001.3.579.2.106 9 1954 Unknown [id number] 2.16.840.1.143174.3.579.2.106 9 1954 Unknown [id number] 2.16.840.1.211320.3.579.2.106 9 1954 Unknown [id number] 2.16.840.1.180073.3.579.2.106 9 1954 Unknown [id number] 2.16.840.1.127057.3.579.2.106 9 1954 Unknown [id number] 2.16.840.1.160836.3.579.2.106 9 1954 Unknown [id number] 2.16.840.1.372093.3.579.2.106 9 1954 Unknown [id number] 2.16.840.1.167586.3.579.2.106 9 1954 Unknown [id number] 2.16.840.1.003305.3.579.2.106 9 1954 Unknown [id number] 2.16.840.1.158273.3.579.2.106 9 1954 Unknown [id number] 2.16.840.1.737447.3.579.2.106 9 1954 Unknown [id number] 2.16.840.1.214150.3.579.2.106 9 1954 Unknown [id number] 2.16.840.1.079539.3.579.2.900 1954 Unknown [id number] 2.16.840.1.416245.3.579.2.900 1954 Unknown [id number] 2.16.840.1.510267.3.579.2.902 1954 Unknown [id number] 2.16.840.1.284141.3.579.2.902 1954 Unknown [id number] 2.16.840.1.727844.3.579.2.902 1954 Unknown [id number] 2.16.840.1.842156.3.579.2.124 3 1954 Unknown [id number] 2.16.840.1.224060.3.579.2.124 3 1954 Unknown [id number] 2.16.840.1.609129.3.579.2.124 3 1954 Unknown [id number] 2.16.840.1.838946.3.579.2.124 3 1954 Unknown [id number] 2.16.840.1.560453.3.579.2.124 3 1954 Unknown [id number] 2.16.840.1.337644.3.579.2.124 3 1954 Unknown [id number] 2.16.840.1.683791.3.579.2.124 3 1954 Unknown [id number] 2.16.840.1.801703.3.579.2.124 3 1954 Unknown [id number] 2.16.840.1.713707.3.579.2.124 3 1954 Unknown [id number] 2.16.840.1.378434.3.579.2.124 3 1954 Unknown [id number] 2.16.840.1.505090.3.579.2.124 3 1954 Unknown [id number] 2.16.840.1.854434.3.579.2.124 3 1955 Unknown [id number] 2.16.840.1.057483.3.579.2. 1955 Unknown [id number] 2.16.840.1.314490.3.579.2. 1954 Unknown [id number] 2.16.840.1.281612.3.579.2.3 1954 Unknown [id number] 2.16.840.1.280103.3.579.2.90 1954 Unknown [id number] 2.16.840.1.989475.3.579.2.90 1954 Unknown [id number] 2.16.840.1.224935.3.579.2. 1954 Unknown [id number] 2.16.840.1.136007.3.579.2.90 1954 Unknown [id number] 2.16.840.1.522977.3.579.2.903 1954 Unknown [id number] 2.16.840.1.915975.3.579.2.90 1954 Unknown [id number] 2.16.840.1.637834.3.579.2.903 1954 Unknown [id number] 2.16.840.1.762617.3.579.2. 1954 Unknown [id number] 2.16.840.1.061139.3.579.2.90 1954 Unknown [id number] 2.16.840.1.597109.3.579.2 1954 Unknown [id number] 2.16.840.1.279784.3.579.2 1954 Unknown [id number] 2.16.840.1.501389.3.579.2 1954 Unknown [id number] 2.16.840.1.930869.3.579.2.90 1954 Unknown [id number] 2.16.840.1.968920.3.579.2. 1954 Unknown [id number] 2.16.840.1.362254.3.579.2.90 1954 Unknown [id number] 2.16.840.1.505223.3.579.2. 1954 Unknown [id number] 2.16.840.1.524580.3.579.2.90 1954 Unknown [id number] 2.16.840.1.729296.3.579.2. 1954 Unknown [id number] 2.16.840.1.674056.3.579.2.903 1954 Unknown [id number] 2.16.840.1.581656.3.579.2 Unknown COMMERCIAL COMME RCIAL MISCELLANEOUS [id number] Effective for all dates [id number] 1.2.840.751532.1.13.385.2.7.3 .572937.315 Unknown COMMERCIAL COMME RCIAL MISCELLANEOUS [id number] Effective for all dates [phone] [address] [address] [place] [address] 1.2.840.651463.1.13.385.2.7.3 .223582.315 Unknown [id number] 2.16.840.1.113287.3.579.2.462 Unknown [id number] 2.16.840.1.432291.3.579.2.462 Unknown [id number] 2.16.840.1.564647.3.579.2.462 Social History Date Type Detail Facility Start: 06-08-2017 End: 05-29-2025 Tobacco smoking status NHIS Never smoker [facility] Start: 1955 Sex Assigned At Not on file [facility] Work Phone: Start: 06-06-2019 Alcohol Comment occasional [facility] Start: 06-11-2020 End: 01-21-2023 Tobacco use and exposure Never used [facility] Start: 06-11-2020 End: 03-04-2024 Alcohol intake Current drinker of alcohol (finding) [facility] Start: 06-10-2021 End: 02-24-2024 Alcohol intake [facility] Start: 01-11-2022 End: 01-21-2023 Exposure to SARS-CoV-2 (event) Not sure [facility] Start: 12-06-2019 End: 06-25-2023 Tobacco smoking status NHIS Unknown if ever smoked [facility] Start: 1955 Sex Assigned At Female [facility] Start: 09-14-2023 End: 02-24-2024 Tobacco use panel [facility] Start: 06-06-2019 Gender identity Identifies as female gender (finding) [facility] Start: 06-06-2019 Sexual orientation Heterosexual (finding) [facility] Lack of Transportati on (Medical) No [facility] Medical Equipment Procedure Code Equipment Code Equipment Origin al Text Equipment Identifier Dates Closure 6fr Angioseal Vip - [id number] Start: 01-15-2022 Closure Perclose Prostyle - [id number] Start: 01-21-2022 Valve 34mm Evolu t Pro Aortic - [id number] 7)[id number], [id number] FDA Start: 01-21-2022 Hemostat 2 X 4in Surgicel Snow Sterl - [id number] Start: 01-21-2022 Baseplate Sz3 Ti bial Tritanium Triathlon - [id number] ()[id number] 7)[id number](10)[id number], [id number] FDA Start: 01-26-2024 Component Sz3 Fe m Cr Rt Cementless Beaded W/Pa Triathlon - [id number] (01)[id number](1 7)[id number](10)[id number], [id number] FDA Start: 01-26-2024 Patella 29mm Asymmetric Metal-Backed Tritanium Triathlon - [id number] ()[id number] 7)[id number](10)[id number], [id number] FDA Start: 01-26-2024 Insert Sz3-11 Ti bial Cr X3 Triathlon 1159-H-712-E - [id number] ()[id number](1 7)[id number](10)[id number], [id number]_[facility] FDA Start: 01-26-2024 Mental Status Date Assessment Result Facility 05-29-2025 Cognitive function Level Of Cons ciousness Awake;Alert;Appropriate [facility] Work Phone: Clinical Notes 06-10-2021 to 03-11-2024 Flores Gore PTA - 03/11/2024 10:45 AM Flores Lund PTA - 03/09/2024 10:45 AM Flores Lund PTA - 03/07/2024 10:45 AM Nadege Chua - 03/04/2024 10:45 AM EDTNarratives Note Date & Type Note Facility 03-11-2024 History of Presen t illness Narrative [facility] OUTPATIENT REHABILITATION DAILY TREATMENT NOTE [...] Arnav Notes visit 11: 10:45-11:28 Therapeutic Exercise (93933) Intervention SciFit Bike L4 x 6 mins [...] up and over 6 Intervention Possibly add estonian split squats/ stool scoots/ standing hamstring curls [...] PT visits Flores Gore PTA STATE LICENSE, [id number] documented in this encounter [facility] 03-09-2024 History of Presen t illness Narrative [facility] OUTPATIENT REHABILITATION DAILY TREATMENT NOTE [...] Arnav Notes Visit #10: 10:36-11:26 Therapeutic Exercise (20133) Intervention SciFit Bike L4 x 6 mins [...] up and over 6 Intervention Possibly add estonian split squats/ stool scoots/ standing hamstring curls [...] Flexion ROM Flores Gore PTA STATE LICENSE, [id number] documented in this encounter [facility] 03-07-2024 History of Presen t illness Narrative [facility] OUTPATIENT REHABILITATION DAILY TREATMENT NOTE [...] Arnav Notes Visit #8: 10:45-11:30 Therapeutic Exercise (63829) Intervention SciFit Bike L4 x 6 mins [...] up and over 6 Intervention Possibly add estonian split squats/ stool scoots/ standing hamstring curls [...] on flexion Flores Gore PTA STATE LICENSE, [id number] documented in this encounter [facility] 03-04-2024 History of Presen t illness Narrative [facility] OUTPATIENT REHABILITATION DAILY TREATMENT NOTE [...] Arnav Notes Visit #8: 10:45-11:40 Therapeutic Exercise (46738) Intervention SciFit Bike L4 x 6 mins [...] up and over 6 Intervention Possibly add estonian split squats/ stool scoots/ standing hamstring curls [...] SHIRA Celis No licensure found in state: [place] Treatment was directed and supervised by the co-signing therapist who was directly present for the entire session. Gabriel Tovar PTA State License [id number] documented in this encounter [facility] 03-02-2024 History of Presen t illness Narrative [facility] OUTPATIENT REHABILITATION DAILY TREATMENT NOTE [...] Notes Visit #7: 10:46 11:24 Therapeutic Exercise (10487) Intervention SciFit Bike L4 x 6 mins [...] taps w/6 step x10 Intervention Possibly add estonian split squats/ stool scoots/ standing hamstring curls [...] Kamara, SPT No licensure found in state[place] Treatment was directed and supervised by the co-signing therapist who was directly present for the entire session. Dajuan Arroyo PT State License, [id number] documented in this encounter [facility] 02-29-2024 History of Presen t illness Narrative [facility] OUTPATIENT REHABILITATION DAILY TREATMENT NOTE [...] Notes Visit: 1050 - 11:40 Therapeutic Exercise (45011) Intervention SciFit Bike L4 x 6 mins [...] and ROM Gabriel Tovar PTA STATE LICENSE, [id number] documented in this encounter [facility] 02-26-2024 History of Presen t illness Narrative [facility] OUTPATIENT REHABILITATION DAILY TREATMENT NOTE [...] Precautions/Contraindications Supervising PT: Arnav Notes Visit: 5 2510-8608 Therapeutic Exercise (25655) Intervention SciFit Bike L4 x 6 mins [...] as tolerated Sherlyn Villavicencio PTA STATE LICENSE, [id number] documented in this encounter [facility] 02-24-2024 History of Presen t illness Narrative [facility] OUTPATIENT REHABILITATION DAILY TREATMENT NOTE [...] Arnav Notes Visit: 4 10:45-11:11:43 Therapeutic Exercise (05844) Intervention SciFit Bike L4 x 5 mins [...] SHIRA Celis No licensure found in state[place] Treatment was directed and supervised by the co-signing therapist who was directly present for the entire session. Gabriel Tovar PTA State License [id number] documented in this encounter [facility] 02-22-2024 History of Presen t illness Narrative [facility] OUTPATIENT REHABILITATION DAILY TREATMENT NOTE [...] Visit: 3 10:40 - 11:15 Therapeutic Exercise (32567) Intervention SciFit Bike L4 x 5 mins [...] Kamara, SPT [place] licensure found in [place] Treatment was directed and supervised by the co-signing therapist who was directly present for the entire session. Dajuan Arroyo PT State License, [id number] documented in this encounter [facility] 02-19-2024 History of Presen t illness Narrative [facility] OUTPATIENT REHABILITATION DAILY TREATMENT NOTE [...] Visit: 2 10:48 - 11:46 Therapeutic Exercise (75280) Intervention SciFit Bike L4 x 5 mins [...] strengthening progression Gabriel Tovar PTA STATE LICENSE, [id number] documented in this encounter [facility] 02-17-2024 History of Presen t illness Narrative [facility] OUTPATIENT REHABILITATION DAILY TREATMENT NOTE [...] Arnav Notes Visit: 1 10:50- Therapeutic Exercise (60843) Intervention HEP was reviewed w/ patient and [...] SHIRA Celis [place] licensure found in state[place] Treatment was directed and supervised by the co-signing therapist who was directly present for the entire session. Gabriel Tovar PTA [id number] documented in this encounter [facility] 02-15-2024 History of Presen t illness Narrative [facility] OUTPATIENT REHABILITATION Evaluation Today's Date [...] the ability to ambulate better. Social Support: Yazdanism, social, or cultural considerations to be made aware of before starting treatment: No Home Environment Current Home Environment: Setup: single story house Entry: steps with railing Red Flags: None Comments: Barriers to Care: None Fall risk screening Fallen 2 or more times in the last 12 months: No Injured as a result of a fall in the last 12 months: No Yazdanism, social, or cultural considerations to be made [...] Notes Eval: 10:51 - 11:17 Therapeutic Exercise (63003) Intervention HEP was reviewed w/ patient and [...] with HEP in 2 weeks. CPT Code 95435 Low 95614 Moderate 49685 High History 0 1-2 3+ Comorbidities: asthma, [...] week Duration: 6 weeks Interventions: Therapeutic Exercise (83112), Neuromuscular Re-Education (35917), Manual Therapy (04448), Therapeutic/ Functional Activities (71780), Gait Training (19816), Aquatic Therapy (58423), Hot/Cold Pack (33728), Electrical Stimulation - Medicare, Unattended (G0283), Ultrasound (96079), and Vasopneumatic (35473) Rehab Potential: good Patient Education Provided Pt [...] entire session. Dajuan Arroyo PT State License, [id number] documented in this encounter [facility] 02-12-2024 Patient's home Pr ogress note Pt reports she is doing well and ready for dc. Is using a SPC around the house. Sees this afternoon for followup and staple removal. documented in this encounter [id number] Telephone encounter Note* Telephone Encounter - Treva Obregon LPN - 02/08/2024 12:09 PM EDT Patient requested refill for pain medication. Surgery 01/26 right TKR, last fill 01/26. [id number] Miscellaneous Notes* Telephone Encounter - Treva Obregon LPN - 02/08/2024 12:09 PM EDT Patient requested refill for pain medication. Surgery 01/26 right TKR, last fill 01/26. documented in this [id number] History of Present illness Narrative* Yen Carlson [...] to call the office. documented in this [id number] History of Present illness Narrative* Yen Carlson LPN - 01/11/2024 2:11 PM EST Amber's nasal swab was positive for MSSA w her preop testing. She will start Doxycyline 100mg bid x 7days and Mupirocin 2% ointment to both nostrils bid x 7 days. I did speak w Amber. documented in this [id number] Patient's home Progress note* Actions Routine visit [...] no longer homebound documented in this encounter [id number] Patient's home Progress note* Actions Routine visit [...] no longer homebound documented in this encounter [id number] Evaluation + Plan note* Assessment & Plan Note - Blaine Silveira MD - 10/20/2023 1:56 PM ESTAssociated Problem(s): Severe aortic insufficiency Doing well from Tavr standpoint Should be low cardiac for surgery from coronary and Valve Would suggest a pre op Pulmonary consult just to be sure from her fibrosing mediastinitis history Also would continue asa through surgery [id number] History of Present illness Narrative* Blaine Silveira MD - 10/20/2023 1:56 PM EST Patient Name: Vickie Gonzalez [facility] MR #: [id number] General Cardiology Blaine Silveira MD, [facility] 10/20/23 Dear Nicol Ibanez MD, Vickie Gonzalez was seen in follow up for : Problem Coronary Artery Disease Involving [place] Coronary Artery of [place] Heart Without Angina Pectoris CABG 2000 Cath 2010 all grafts open 12/2021- Pat Dye/Missy Severe Aortic Insufficiency EVOLUT 34mm via R CUPOLA MELTER HELPER. 01/21/222022 2 D cardiac echocardiogram looked good [...] 1 (one) tablet by mouth daily . YXRJJCZ-ACOXRQKML-RKXG ORAL Take 1 tablet by mouth daily [...] No medications on file documented in this [id number] Miscellaneous Notes* Assessment & Plan Note - Blaine Silveira MD - 10/20/2023 1:56 PM ESTAssociated Problem(s): Severe aortic insufficiency Doing well from Tavr standpoint Should be low cardiac for surgery from coronary and Valve Would suggest a pre op Pulmonary consult just to be sure from her fibrosing mediastinitis history Also would continue asa through surgery documented in this [id number] Progress note Author Lindsey Walsh [facility] July 16, 2023 12:13pm Note Date/Time July 16, 2023 12 :05pm [facility] [address] [place] [address] Progress Note - Wound Care 07/16/23 1200 MR#: [id number] Acct: [id number] Name: VICKIE GONZALEZ Rep #:[id number] : [...] locally at the wound care center at [facility]. She states following a few days [...] Date Recorded By Document 07/16/23 09:42 KW [id number] 07/16/23 09:51 07/16/23 09:42 - Today's Visit Information Type of service Follow-up Visit (Physician/LAST TRIMMER ) Arrival Mode Ambulatory Patient Identification Verified [...] Recorded Date Recorded By Document 07/16/23 09:42 [id number] 07/16/23 09:51 07/16/23 09:42 Wound Center Nurse [...] Date Recorded By Document 07/16/23 10:05 ARNOLDO [id number] 07/16/23 10:06 KW 07/16/23 10:05 Wound Care [...] No signs of infection. Pain: May take tyrf-gkc-xjltppv Tylenol as needed for discomfort. Host factors: Basal cell carcinoma left lower extremity, edema. ? At this time with all wounds healed she is discharged from the wound care center. She has follow-up appointment with attendant arcade next week. I answered all the patient's questions.? To return to the wound healing center as needed or call sooner if the patient has any questions or concerns. 07/16/23 1213 <Electronically signed by Lindsey Walsh DPM> Cosigner Signature (if applicable): CC: ~ Signed [facility] Work Phone: 1(383) 596-886707-27-2023 Progress note Author Lindsey Walsh [facility] June 25, 2023 11:36am Note Date/Time June 25, 2023 10:1 2am [facility] [address] [place] [address] Progress Note - Wound Care 06/25/23 1012 MR#: [id number] Acct: [id number] Name: VICKIE GONZALEZ Rep #:[id number] 07 : [...] locally at the wound care center at [facility]. She states following a few days [...] Date Recorded By Document 06/04/23 10:15 AK [id number] 06/04/23 10:17 AK Document 06/18/23 10:58 [id number] 06/18/23 11:01 Document 06/25/23 09:48 DL [id number] 06/25/23 09:56 DL 06/04/23 06/18/23 06/25/23 10:15 10:58 09:48 - Today's Visit Information Type of service Follow-up Visit Follow-up Visit Follow-up Visit (Physician/LAST TRIMMER (Physician/LAST TRIMMER (Physician/LAST TRIMMER ) ) ) Arrival Mode Ambulatory Ambulatory [...] Date Recorded By Document 06/04/23 10:15 AK [id number] 06/04/23 10:17 CO Document 06/18/23 10:58 [id number] 06/18/23 11:01 Document 06/25/23 09:48 DL [id number] 06/25/23 09:56 DL 06/04/23 06/18/23 06/25/23 10:15 [...] None Present (0 %) %) -Granulation Quality [place] N/A -Slough/Fibrin Yes No -Necrosis Amt Medium [...] Recorded Date Recorded By Document 06/04/23 12:01 [id number] 06/04/23 12:02 PL Document 06/18/23 12:17 [id number] 06/18/23 12:19 PL 06/04/23 06/18/23 12:01 12:17 [...] -Expiration Date 02/29/28 03/30/28 -Product Lot Number [id number] -Percent Used 100 100 -Bleeding [...] Recorded Date Recorded By Document 06/04/23 10:49 [id number] 06/04/23 10:49 Document 06/18/23 10:58 [id number] 06/18/23 11:01 06/04/23 06/18/23 10:49 10:58 Wound [...] No signs of infection. Pain: May take wfnj-xxz-jeqrpry Tylenol as needed for discomfort. Host factors: Basal cell carcinoma left lower extremity, edema. ? I answered all the patient's questions.? To return to the wound healing center in 3 weeks or call sooner if the patient has any questions or concerns. 06/25/23 1136 <Electronically signed by Lindsey Walsh DPM> Cosigner Signature (if applicable): CC: ~ Signed [facility] Work Phone: 1(839) 522-276707-20-2023 Progress note Author Lindsey Walsh [facility] June 18, 2023 5:46pm Note Date/Time June 18, 2023 9:48 am [facility] [address] [place] [address] Progress Note - Wound Care 06/18/23 0947 MR#: [id number] Acct: [id number] Name: VICKIE GONZALEZ Rep #:[id number] 07 : [...] locally at the wound care center at [facility]. She states following a few days [...] Date Recorded By Document 06/04/23 10:15 DONNIE [id number] 06/04/23 10:17 DONNIE 06/04/23 10:15 - Today's Visit Information Type of service Follow-up Visit (Physician/LAST TRIMMER ) Arrival Mode Ambulatory Patient Identification Verified [...] Date Recorded By Document 06/04/23 10:15 DONNIE [id number] 06/04/23 10:17 DONNIE 06/04/23 10:15 Wound Center [...] Attached -Granulation Amt Medium (34-66%) -Granulation Quality [place] -Slough/Fibrin Yes -Necrosis Amt Medium (34-66%) -Necrotic [...] Date Recorded By Document 06/04/23 12:01 NAYELI [id number] 06/04/23 12:02 PL 06/04/23 12:01 Wound Center [...] Disc -Expiration Date 02/29/28 -Product Lot Number [id number] -Percent Used 100 -Bleeding Controlled with [...] Recorded Date Recorded By Document 06/04/23 10:49 [id number] 06/04/23 10:49 ARNOLDO 06/04/23 10:49 Wound Care [...] No signs of infection. Pain: May take uxly-vwl-yiqzjtq Tylenol as needed for discomfort. Host factors: Basal cell carcinoma left lower extremity, edema. ? I answered all the patient's questions.? To return to the wound healing center in 1 week or call sooner if the patient has any questions or concerns. 06/18/23 1746 <Electronically signed by Lindsey Walsh DPM> Cosigner Signature (if applicable): CC: ~ Signed [facility] Work Phone: 1(183) 235-690707-06-2023 Progress note Author Lindsey Walsh [facility] June 04, 2023 1:00pm Note Date/Time June 04, 2023 1:00p [facility] [address] [place] [address] Progress Note - Wound Care 06/04/23 1255 MR#: [id number] Acct: [id number] Name: VICKIE GONZALEZ Rep #:[id number] 13 : [...] locally at the wound care center at [facility]. She states following a few days [...] Recorded Date Recorded By Document 06/04/23 10:15 CO [id number] 06/04/23 10:17 DONNIE 06/04/23 10:15 - Today's Visit Information Type of service Follow-up Visit (Physician/LAST TRIMMER ) Arrival Mode Ambulatory Patient Identification Verified [...] Date Recorded By Document 06/04/23 10:15 DONNIE [id number] 06/04/23 10:17 DONNIE 06/04/23 10:15 Wound Center [...] Attached -Granulation Amt Medium (34-66%) -Granulation Quality [place] -Slough/Fibrin Yes -Necrosis Amt Medium (34-66%) -Necrotic [...] Date Recorded By Document 06/04/23 12:01 PL [id number] 06/04/23 12:02 PL 06/04/23 12:01 Wound Center [...] Disc -Expiration Date 02/29/28 -Product Lot Number [id number] -Percent Used 100 -Bleeding Controlled with [...] Recorded Date Recorded By Document 06/04/23 10:49 [id number] 06/04/23 10:49 KW 06/04/23 10:49 Wound Care [...] No signs of infection. Pain: May take uqrw-bpn-xwnaswt Tylenol as needed for discomfort. Host factors: Basal cell carcinoma left lower extremity, edema. ? I answered all the patient's questions.? To return to the wound healing center in 2 weeks or call sooner if the patient has any questions or concerns. 06/04/23 1300 <Electronically signed by Lindsey Walsh DPM> Cosigner Signature (if applicable): CC: ~ Signed [facility] Work Phone: 1(706) 987-649506-29-2023 Progress note Author Lindsey Walsh [facility] May 28, 2023 10:20am Note Date/Time May 28, 2023 9:53 am [facility] [address] [place] [address] Progress Note - Wound Care 05/28/23 0952 MR#: [id number] Acct: [id number] Name: VICKIE GONZALEZ Rep #:[id number] 08 : [...] locally at the wound care center at [facility]. She states following a few days [...] Date Recorded By Document 04/30/23 09:24 JANIE [id number] 04/30/23 09:40 JF Document 05/07/23 09:26 AK [id number] 05/07/23 09:28 AK Document 05/14/23 09:34 KW [id number] 05/14/23 09:46 KW Document 05/21/23 11:54 AK [id number] 05/21/23 11:56 AK 04/30/23 05/07/23 05/14/23 09:24 09:26 09:34 WC - Today's Visit Information Type of service Follow-up Visit Follow-up Visit Follow-up Visit (Physician/LAST TRIMMER (Physician/LAST TRIMMER (Physician/LAST TRIMMER ) ) ) Arrival Mode Ambulatory Ambulatory [...] Visit Information Type of service Follow-up Visit (Physician/LAST TRIMMER ) Arrival Mode Ambulatory Patient Identification Verified [...] Recorded Date Recorded By Document 04/30/23 09:24 [id number] 04/30/23 09:40 JF Document 05/07/23 09:26 AK [id number] 05/07/23 09:28 AK Document 05/14/23 09:34 KW [id number] 05/14/23 09:46 KW Document 05/21/23 11:54 AK [id number] 05/21/23 11:56 AK 04/30/23 05/07/23 05/14/23 09:24 [...] Medium (34-66%) Medium (34-66%) -Granulation Quality [place] -Slough/Fibrin Yes Yes -Necrosis Amt Small (1-33%) [...] Attached -Granulation Amt Medium (34-66%) -Granulation Quality [place] -Slough/Fibrin Yes -Necrosis Amt Medium (34-66%) -Necrotic [...] Date Recorded By Document 04/30/23 12:15 PL [id number] 04/30/23 12:17 PL Document 05/07/23 12:36 PL [id number] 05/07/23 12:38 PL Document 05/14/23 12:06 PL [id number] 05/14/23 12:08 PL Edit Result 05/14/23 12:06 PL (1) [id number] 05/15/23 12:47 PL Document 05/21/23 12:16 PL [id number] 05/21/23 12:17 PL (1) #1 L medial [...] Date 01/29/28 01/29/28 02/29/28 -Product Lot Number [id number] -Percent Used 100 100 [...] Disc -Expiration Date 02/29/28 -Product Lot Number [id number] -Percent Used 100 -Bleeding Controlled with [...] Date Recorded By Document 04/30/23 09:59 AK [id number] 04/30/23 10:00 AK Undo 04/30/23 09:59 AK Adjusting Time [id number] 04/30/23 10:01 AK Document 05/07/23 10:09 AK [id number] 05/07/23 10:10 AK Document 05/14/23 12:06 PL [id number] 05/14/23 12:08 PL Document 05/21/23 10:33 [id number] 05/21/23 10:44 KW 05/07/23 05/14/23 05/21/23 10:09 [...] No signs of infection. Pain: May take bypp-zgh-vgsludg Tylenol as needed for discomfort. Host factors: Basal cell carcinoma left lower extremity, edema. ? I answered all the patient's questions.? To return to the wound healing center in 1 week or call sooner if the patient has any questions or concerns. 05/28/23 1020 <Electronically signed by Lindsey Walsh DPM> Cosigner Signature (if applicable): CC: ~ Signed [facility] Work Phone: 1(351) 496-859306-22-2023 Progress note Author Lindsey Walsh [facility] May 21, 2023 12:31pm Note Date/Time May 21, 2023 9:57 am [facility] [address] [place] [address] Progress Note - Wound Care 05/21/23 0957 MR#: [id number] Acct: [id number] Name: VICKIE GONZALEZ Rep #:[id number] : [...] locally at the wound care center at [facility]. She states following a few days [...] Date Recorded By Document 04/30/23 09:24 JF [id number] 04/30/23 09:40 JF Document 05/07/23 09:26 AK [id number] 05/07/23 09:28 AK Document 05/14/23 09:34 KW [id number] 05/14/23 09:46 KW 04/30/23 05/07/23 05/14/23 09:24 09:26 09:34 - Today's Visit Information Type of service Follow-up Visit Follow-up Visit Follow-up Visit (Physician/LAST TRIMMER (Physician/LAST TRIMMER (Physician/LAST TRIMMER ) ) ) Arrival Mode Ambulatory Ambulatory [...] Date Recorded By Document 04/30/23 09:24 JF [id number] 04/30/23 09:40 Document 05/07/23 09:26 AK [id number] 05/07/23 09:28 AK Document 05/14/23 09:34 KW [id number] 05/14/23 09:46 KW 04/30/23 05/07/23 05/14/23 09:24 [...] Medium (34-66%) Medium (34-66%) -Granulation Quality [place] -Slough/Fibrin Yes Yes -Necrosis Amt Small (1-33%) [...] Date Recorded By Document 04/30/23 12:15 PL [id number] 04/30/23 12:17 PL Document 05/07/23 12:36 PL [id number] 05/07/23 12:38 PL Document 05/14/23 12:06 PL [id number] 05/14/23 12:08 PL Edit Result 05/14/23 12:06 PL (1) [id number] 05/15/23 12:47 PL (1) #1 L medial [...] Date 01/29/28 01/29/28 02/29/28 -Product Lot Number [id number] 002 -Percent Used 100 100 [...] Date Recorded By Document 04/30/23 09:59 AK [id number] 04/30/23 10:00 AK Undo 04/30/23 09:59 AK Adjusting Time [id number] 04/30/23 10:01 AK Document 05/07/23 10:09 AK [id number] 05/07/23 10:10 AK Document 05/14/23 12:06 PL [id number] 05/14/23 12:08 PL 05/07/23 05/14/23 10:09 12:06 [...] No signs of infection. Pain: May take aglu-tvu-hzcsoir Tylenol as needed for discomfort. Host factors: Basal cell carcinoma left lower extremity, edema. ? I answered all the patient's questions.? To return to the wound healing center in 1 week or call sooner if the patient has any questions or concerns. 05/21/23 1231 <Electronically signed by Lindsey Walsh DPM> Cosigner Signature (if applicable): CC: ~ Signed [facility] Work Phone: 1(781) 104-304506-15-2023 Progress note Author Lindsey Walsh [facility] May 14, 2023 10:27am Note Date/Time May 14, 2023 9:43 am [facility] [address] [place] [address] Progress Note - Wound Care 05/14/23 0942 MR#: [id number] Acct: [id number] Name: VICKIE GONZALEZ Meseret Rep #:[id number] [...] locally at the wound care center at [facility]. She states following a few days [...] Date Recorded By Document 04/30/23 09:24 JANIE [id number] 04/30/23 09:40 Document 05/07/23 09:26 AK [id number] 05/07/23 09:28 AK 04/30/23 05/07/23 09:24 09:26 - Today's Visit Information Type of service Follow-up Visit Follow-up Visit (Physician/LAST TRIMMER (Physician/LAST TRIMMER ) ) Arrival Mode Ambulatory Ambulatory Patient [...] Recorded Date Recorded By Document 04/30/23 09:24 [id number] 04/30/23 09:40 Document 05/07/23 09:26 AK [id number] 05/07/23 09:28 AK 04/30/23 05/07/23 09:24 09:26 [...] Medium (34-66%) Medium (34-66%) -Granulation Quality [place] -Slough/Fibrin Yes Yes -Necrosis Amt Small (1-33%) [...] Date Recorded By Document 04/30/23 12:15 PL [id number] 04/30/23 12:17 PL Document 05/07/23 12:36 PL [id number] 05/07/23 12:38 PL 04/30/23 05/07/23 12:15 12:36 [...] -Expiration Date 01/29/28 01/29/28 -Product Lot Number [id number] -Percent Used 100 100 -Bleeding [...] Date Recorded By Document 04/30/23 09:59 AK [id number] 04/30/23 10:00 AK Undo 04/30/23 09:59 AK Adjusting Time [id number] 04/30/23 10:01 AK Document 05/07/23 10:09 AK [id number] 05/07/23 10:10 AK 05/07/23 10:09 Wound Care [...] No signs of infection. Pain: May take xtln-qlj-gmwijoy Tylenol as needed for discomfort. Host factors: Basal cell carcinoma left lower extremity, edema. ? I answered all the patient's questions.? To return to the wound healing center in 1 week or call sooner if the patient has any questions or concerns. 05/14/23 1027 <Electronically signed by Lindsey Walsh DPM> Cosigner Signature (if applicable): CC: ~ Signed [facility] Work Phone: 1(136) 625-283106-08-2023 Progress note Author Lindsey Walsh [facility] May 07, 2023 9:42am Note Date/Time May 07, 2023 9:14a m [facility] [address] [place] [id number] Progress Note - Wound Care 05/07/2313 MR#: [id number] Acct: [id number] Name: VICKIE GONZALEZ Rep #:[id number] : [...] locally at the wound care center at [facility]. She states following a few days [...] Date Recorded By Document 04/30/23 09:24 JANIE [id number] 04/30/23 09:40 JANIE 04/30/23 09:24 - Today's Visit Information Type of service Follow-up Visit (Physician/LAST TRIMMER ) Arrival Mode Ambulatory Patient Identification Verified [...] Date Recorded By Document 04/30/23 09:24 JF [id number] 04/30/23 09:40 JANIE 04/30/23 09:24 Wound Center [...] Date Recorded By Document 04/30/23 12:15 PL [id number] 04/30/23 12:17 PL 04/30/23 12:15 Wound Center [...] Disc -Expiration Date 01/29/28 -Product Lot Number [id number] -Percent Used 100 -Bleeding Controlled with [...] Date Recorded By Document 04/30/23 09:59 AK [id number] 04/30/23 10:00 AK Undo 04/30/23 09:59 AK Adjusting Time [id number] 04/30/23 10:01 AK Assessment/Plan Assessment/Plan (1) Non-pressure [...] No signs of infection. Pain: May take rlkz-wgq-mqpbxyq Tylenol as needed for discomfort. Host factors: Basal cell carcinoma left lower extremity, edema. ? I answered all the patient's questions.? To return to the wound healing center in 1 week or call sooner if the patient has any questions or concerns. 05/07/2342 <Electronically signed by Lindsey Walsh DPM> Cosigner Signature (if applicable): CC: ~ Signed [facility] Work Phone: 1(967) 382-694506-01-2023 Progress note Author Lidnsey Walsh [facility] April 30, 2023 12:52pm Note Date/Time April 30, 2023 9:50a [facility] [address] [place] [address] Progress Note - Wound Care 04/30/23 0946 MR#: [id number] Acct: [id number] Name: VICKIE GONZALEZ Rep #:[id number] : 1955 67 From: Lindsey sykes DPM PCP: Dr. Nicol Ibanez MD Status:[facility] Location: History of Present Illness Date of [...] locally at the wound care center at [facility]. She states following a few days [...] Date Recorded By Document 04/30/23 09:24 JANIE [id number] 04/30/23 09:40 JANIE 04/30/23 09:24 - Today's Visit Information Type of service Follow-up Visit (Physician/LAST TRIMMER ) Arrival Mode Ambulatory Patient Identification Verified [...] Recorded Date Recorded By Document 04/30/23 09:24 [id number] 04/30/23 09:40 JANIE 04/30/23 09:24 Wound Center [...] No signs of infection. Pain: May take bikr-lje-blhtpbu Tylenol as needed for discomfort. Host factors: Basal cell carcinoma left lower extremity, edema. ? I answered all the patient's questions.? To return to the wound healing center in 1 week or call sooner if the patient has any questions or concerns. 04/30/23 1252 <Electronically signed by Lindsey Walsh DPM> Cosigner Signature (if applicable): CC: ~ Signed [facility] Work Phone: [phone]) 806-198905-25-2023 Progress note Author Lindsey Walsh [facility] April 23, 2023 10:15am Note Date/Time April 23, 2023 9:34a m [facility] [address] [place] [address] Progress Note - Wound Care 04/23/23 0933 MR#: [id number] Acct: [id number] Name: PARAGVICKIE CLEMONS Meseret Rep #:[id number] [...] locally at the wound care center at [facility]. She states following a few days [...] Date Recorded By Document 04/16/23 08:58 AK [id number] 04/16/23 09:14 AK Document 04/23/23 09:23 JANIE [id number] 04/23/23 09:27 JF 04/16/23 04/23/23 08:58 09:23 - Today's Visit Information Type of service Initial Visit Follow-up Visit (Physician/LAST TRIMMER ) Arrival Mode Ambulatory Ambulatory Patient Identification [...] Date Recorded By Document 04/16/23 08:58 AK [id number] 04/16/23 09:14 AK Document 04/23/23 09:23 JANIE [id number] 04/23/23 09:27 JF 04/16/23 04/23/23 08:58 09:23 [...] Amt Small (1-33%) Small (1-33%) -Granulation Quality [place] Pale -Slough/Fibrin Yes Yes -Necrosis Amt Large [...] Date Recorded By Document 04/16/23 10:10 PL [id number] 04/16/23 10:11 PL 04/16/23 10:10 Wound Center [...] Date Recorded By Document 04/16/23 10:02 DL [id number] 04/16/23 10:04 DL 04/16/23 10:02 Wound Care Center Nurse 3 #1 L medial ankle -Ulcer Cleansing Rinsed/ Irrigated with Saline -Foul Odor after Cleansing No -Primary Dressing Applied Mepilex Border, Promogran Maryanen Matter -Mepilex Border 1 -Promogran Maryanne Matter [...] No signs of infection. Pain: May take vtxd-ekb-lofqqxs Tylenol as needed for discomfort. Host factors: Basal cell carcinoma left lower extremity, edema. I answered all the patient's questions. To return to the wound healing center in 1 week or call sooner if the patient has any questions or concerns. 04/23/23 1015 <Electronically signed by Lindsey Walsh DPM> Cosigner Signature (if applicable): CC: ~ Signed [facility] Work Phone: [phone]) 582-761505-18-2023 History and physical note Author Lindsey [facility] April 16, 2023 12:36pm Note Date/Time April 16, 2023 9:19a [facility] [address] [place] [address] H&P Exam - Wound Care 04/16/23 0919 MR#: [id number] Acct: [id number] Name: PARAGVICKIE CLEMONS Meseret Rep #:[id number] [...] locally at the wound care center at [facility]. She states following a few days after the procedure she was on the treadmill and did have some swelling of the lower extremity site to which she feels may have worsened the wound. States she will continue to follow with dermatology for continued monitoring/follow-up. She currently denies any N/V/F/chills. Denies further complaints. [facility] Medical History (Updated 04/16/23 @ 12:17 by [...] Recorded Date Recorded By Document 04/16/23 08:58 CO [id number] 04/16/23 09:14 DONNIE 04/16/23 08:58 - Today's [...] Recorded Date Recorded By Document 04/16/23 08:58 CO [id number] 04/16/23 09:14 CO 04/16/23 08:58 Wound Center Nurse 1 #1 [...] Attached -Granulation Amt Small (1-33%) -Granulation Quality [place] -Slough/Fibrin Yes -Necrosis Amt Large (67-100%) -Necrotic [...] No signs of infection. Pain: May take mlmg-txm-xxbqhcj Tylenol as needed for discomfort. Host factors: Basal cell carcinoma left lower extremity, edema. I answered all the patient's questions. To return to the wound healing center in 1 week or call sooner if the patient has any questions or concerns. 04/16/23 1236 <Electronically signed by Lindsey Walsh DPM> Cosigner Signature (if applicable): CC: ~ Signed [facility] Work Phone: 1(837) 687-651802-22-2023 History of Present illness Narrative* Angelica Randall, LAST TRIMMER - 01/21/2023 2:30 PM EST [facility] 1 year TAVR follow up Patient Name: Vickie Gonzalez Admit Date: MR #: [id number] : 1955 Physicians: Nicol Ibanez MD (Family) [...] es, she will be discharged from the [facility]. She will continue to follow with PCP and primary cheese tester. Hypertension, hypertensive today in the office but home readings are significantly lower ranging between 120-140 systolic. Have asked her to track BP three times a week over the next 2 weeks and notify [facility] if systolic greater than 150 [...] TR and RVSP 46mmHg. Last cardiac catheterization [id number] showed patent DYE and MISSY with 100% [...] Valve Replacement; Surgeon: Lindsey Plummer MD; Location: [facility] OR; Service: Cardiovascular CARDIAC CATHETERIZATION N/A 01/21/2022 Procedure: Angiogram - Aortic Root; Surgeon: Lindsey Plummer MD; Location: [facility]; Service: Cardiovascular CARDIAC CATHETERIZATION N/A 01/21/2022 Procedure: Temporary Pacemaker; Surgeon: Lindsey Plummer MD; Location: [facility]; Service: Cardiovascular CARDIAC CATHETERIZATION N/A 01/21/2022 Procedure: Valvuloplasty - Aortic Valve; Surgeon: Lindsey Plummer MD; Location: [facility]; Service: Cardiovascular HC LEFT HEART CATH N/A 01/15/2022 Procedure: LEFT HEART CATH; Surgeon: Silvio Mckeon MD; Location: [facility]; Service: Cardiovascular TAVR FEMORAL APPROACH N/A 01/21/2022 Procedure: TRANSCATHETER AORTIC VALVE REPLACEMENT FEMORAL APPROACH; Surgeon: Meir rAthur MD; Location: [facility]; Service: Cardiothoracic TOTAL KNEE ARTHROPLASTY [...] by mouth daily . Yes Historical Provider, HNZVTKI-ULGZOQHSL-AEYL ORAL Take 1 tablet by mouth daily [...] Component Value Date HGBA1C 6.1 (H) 01/09/2022 @AOJWDGV69@ Echocardiogram complete Result Date: 01/21/2023 Patient Info Name: VICKIE GONZALEZ Age: 67 years : 1955 Gender: Female Ht: 167 cm Wt: 105 kg BSA: 2.26 m2 HR: 1 bpm BP: 157 / 89 mmHg Technical Quality: Fair Exam Date: 01/21/2023 9:06 AM Patient Status: Outpatient Postal Service Mail Processor: Shirin Rabago, MILLER, RDCS (PE, AE) Exam Type: ECHOCARDIOGRAM COMPLETE Study Info Indications - Valve disease/murmur Attending Physician: ANGELICA RANDALL Referring Physician: [id number]; [id number] BMI: 37.73 kg/m2 Summary 1. Left ventricular [...] LVOT VTI/AV VTI Ratio 0.4 LVOT Stroke Xdbkph97 ml LVOT Stroke Index 23.93 ml/m2 Pulmonic Valve Name Value Normal PV Regurgitation Doppler [place] Peak End Diastolic Velocity 128 cm/s Mitral [...] on 01/21/2023 10:15 AM documented in this [id number] Note* Addendum Note - Terrie Oh RN - 01/19/2023 6:49 AM ESTAddended by: TERRIE [place] on: 01/19/2023 06:49 AM Modules accepted: Orders [id number] Miscellaneous Notes* Addendum Note - Terrie Oh RN - 01/19/2023 6:49 AM ESTAddended by: TERRIE [place] on: 01/19/2023 06:49 AM Modules accepted: Orders documented in this [id number] History of Present illness Narrative* Angelica Randall CNP - 02/19/2022 11:24 AM EDT [facility] 30 DAY TAVR FOLLOW UP Patient Name: Vickie Gonzalez Admit Date: MR #: [id number] : 1955 Physicians: Nicol Ibanez MD (Family) [...] Valve Replacement; Surgeon: Lindsey Plummer MD; Location: [facility]; Service: Cardiovascular CARDIAC CATHETERIZATION N/A 01/21/2022 Procedure: Angiogram - Aortic Root; Surgeon: Lindsey Plummer MD; Location: [facility]; Service: Cardiovascular CARDIAC CATHETERIZATION N/A 01/21/2022 Procedure: Temporary Pacemaker; Surgeon: Lindsey Plummer MD; Location: [facility]; Service: Cardiovascular CARDIAC CATHETERIZATION N/A 01/21/2022 Procedure: Valvuloplasty - Aortic Valve; Surgeon: Lindsey Plummer MD; Location: [facility]; Service: Cardiovascular HC LEFT HEART CATH N/A 01/15/2022 Procedure: LEFT HEART CATH; Surgeon: Silvio Mckeon MD; Location: [facility] ENG[facility]; Service: Cardiovascular TAVR FEMORAL APPROACH N/A 01/21/2022 Procedure: TRANSCATHETER AORTIC VALVE REPLACEMENT FEMORAL APPROACH; Surgeon: Meir Arthur MD; Location: [facility]; Service: Cardiothoracic TOTAL KNEE ARTHROPLASTY [...] by mouth daily . Yes Historical Provider, LRTVJWR-WKEUUWVJL-IXOM ORAL Take 1 tablet by mouth daily [...] Component Value Date HGBA1C 6.1 (H) 01/09/2022 @DEORRDW01@ ECG 12 Lead Result Date: 01/22/2022 Sinus [...] Date: 01/21/2022 12:12 PM Patient Status: Outpatient Postal Service Mail Processor: Jolanta Klein RDCS, RVT Exam Type: ECHOCARDIOGRAM LIMITED WITH CONTRAST Study Info Indications - INTRAOP TAVR Attending Physician: LINDSEY PLUMMER Referring Physician: [id number]; [id number] BMI: 36.32 kg/m2 Summary 1. Limited two-dimensional, [...] Date: 01/21/2022 1:41 PM Patient Status: Outpatient Inspector And Mender:Muriel Medina RVT, RDMS Referring Physician: TONIA Jimenez; Attending Physician: LINDSEY PLUMMER Indications Z98.890 - Other specified postprocedural states - left femoral artery pseudoaneurysm, please perform compression therapy if able Procedure Description 59350 Duplex scan of lower extremity arteries or [...] Date: 01/22/2022 8:51 AM Patient Status: Inpatient Postal Service Mail Processor: Geraldo Carlos RDCS, ЮЛИЯ Exam Type: ECHOCARDIOGRAM COMPLETE Study Info Indications - Other Attending Physician: LINDSEY PLUMMER Referring Physician: TONIA Jimenez; [id number] BMI: 37.28 kg/m2 Summary 1. Leftventricular systolic [...] Name Value Normal MV Doppler MV Decel Calvert 386 cm/s2 MV PHT 77 ms MV [...] on 01/22/2022 05:15 PM documented in this [id number] Note* Addendum Note - Terrie Oh RN - 02/13/2022 7:54 AM EDTAddended by: TERRIE [place] on: 02/13/2022 07:54 AM Modules accepted: Orders [id number] Miscellaneous Notes* Addendum Note - Terrie Oh RN - 02/13/2022 7:54 AM EDTAddended by: TERRIE [place] on: 02/13/2022 07:54 AM Modules accepted: Orders documented in this [id number] History of Present illness Narrative* Angelica Randall CNP - 02/03/2022 10:00 AM EST Telephone Visit Via Phone Call [facility] [address] [place] [phone] Telephone Visit [facility] 02/03/2022 Angelica Randall CNP Provider Location: office Patient Location Cut In Worker: None Patient Location: Patient's Home Patient: Vickie [...] there are inherent diagnostic limitations compared to towu-cq-vzaf evaluations. We elected toproceed with the telephone [...] catheterization prior to TAVR which showed patent DYE/IMSSY and occluded LM and RCA. On 01/21/22 [...] Take 1 tablet by mouth daily . VBOFODP-JFENPKUDL-QZHP ORAL Take 1 tablet by mouth daily [...] symptoms. She will follow up with the [facility] again at4 weeks post TAVR with TTE, labwork and ECG. I have spent 16 minutes with the patient reviewing the HPI and Plan of Care. documented in this [id number] Hospital course Narrative* Angelica Taylor Tonia, LAST TRIMMER - 01/22/2022 10:54 AM EST DISCHARGE SUMMARY Patient: Vickie Gonzalez Date of : 1955 Site: [facility] Family Provider: Nicol Ibanez MD [...] condition. She will follow up with the [facility] at 2 weeks and 4 [...] Take 1 tablet by mouth daily . UDGEVTT-EWAVKQGIZ-LTNY ORAL Take 1 tablet by mouth daily [...] Provider: Nicol Ibanez MD, Address: [address] [employer] / [place] [id number] Follow Up: Phase 2 Cardiac Rehabilitation-[place] Please call ext. [phone] to schedule. Call in 2 week(s) Nicol Ibanez MD [address] [phone] Follow up Please call to schedule follow up appt for 8 weeks from discharge Angelica Randall CNP [address] [place] [address] Follow up Office has scheduled appts at 2 weeks and 4 weeks from discharge Blaine Silveira MD [address] [place], [place] [phone] Follow up Please call to schedule follow up appt with Dr. Silveira Additional Information: Patient instructions, including activity, were given to the patient/family at discharge. Please seethe After Visit Summary in the electronic medical record for details. Time spent on discharge: > 30 minutes Completed by: Angelica Randall CNP on 01/22/22, 10:54 AM documented in this [id number] Consult note* Marsha Torres RN - 01/22/2022 8:58 AM EST AVS reviewed with patient/family. Discussed importance of medications, follow up appointments, and Cardiac Rehab with patient/family.Discussed with patient that their physician has referred him/her to our outpatient Cardiac Rehabilitation program. A Cardiac Rehabilitation nurse will contact patientor patient may call [phone] for additional information. [facility] brochure pro vided to patient/family.The Cardiac Rehabilitation Program will be provided the patient's referral information and pertinent patient details and history. Patient chosen location is . [id number] Consult note* Marsha Torres RN - 01/22/2022 8:58 AM EST AVS reviewed with patient/family. Discussed importance of medications, follow up appointments, and Cardiac Rehab with patient/family.Discussed with patient that their physician has referred him/her to our outpatient Cardiac Rehabilitation program. A Cardiac Rehabilitation nurse will contact patientor patient may call [phone] for additional information. [facility] brochure pro vided to patient/family.The Cardiac Rehabilitation Program will be provided the patient's referral information and pertinent patient details and history. Patient chosen location is . documented in this [id number] Evaluation + Plan note* Assessment & Plan Note - Angelica Randall CNP - 01/22/2022 8:12 AM EST Associated Problem(s): Severe aortic stenosis S/p TAVR with 34mm Evolut Pro Plus via RFA [id number] Miscellaneous Notes* Assessment & Plan Note - [...] (66 y.o.) Date of Service: 01/21/2022 CSN: [id number] Procedure(s): Transcatheter Aortic Valve Replacement TRANSCATHETER AORTIC VALVE REPLACEMENT FEMORAL APPROACH Pre-Operative Diagnoses: * severe aortic stenosis Post-Operative Diagnoses: * Same as Pre-Op Diagnosis Surgeon(s) and Role: Panel 1: * Lindsey Plummer MD - Primary * Stanley Grant MD Panel 2: * Meir Arthur MD - Primary * Robert Pugh MD Anesthesiologist: Chapito Mohan MD Student Nurse Digital Editor: Deep Sawant Ballistic Technician: Kishan Rascon RN; Alena Barker, TECHNOLOGIST; Gina Ann RN; Judd Hoover RN Thin Film Technician: Zulma Bowen Scrub Person: ST Raven; Danette [...] Implant Name Type Inv. Item Serial No. .Net Programmer Lot No. LRB No. Used Action CLOSURE PERCLOSE PROSTYLE - [id number] Closure Device CLOSURE PERCLOSE PROSTYLE GARAY VAS N/A 2 Implanted VALVE 34MM EVOLUT PRO AORTIC - [id number] Percutaneous Valve VALVE 34MM EVOLUT PRO AORTIC [id number] [employer] N/A 1 Implanted Drain(s): * No LDAs found * Wound(s): * No LDAs found * Robert Pugh MD 01/21/2022 12:24 PM * Op Note - Robert Pugh MD - 01/21/2022 7:22 AM EST VICKIE GONZALEZ [facility] [id number] 1955 DATE 01/21/2022 OPERATIVE REPORT SURGEON ROBERT [...] condition. ROBERT PUGH MD D 01/21/2022 12:30 [id number] T 01/21/2022 12:47 WJF/MODL documented in this [id number] History of Present illness Narrative* Angelica Randall CNP - 01/22/2022 8:04 AM EST Patient Name: Vickie Gonzalez MR #: [id number] POD # 1 Subjective: No complaints Objective: [...] discuss with SH team documented in this [id number] Note* Quick Note - Gaby Evans RN - 01/22/2022 4:58 AM EST .. Patient oriented to room and call system: yes Goal and Plan of Care written on whiteboard: yes Dual RN skin assessment completed with: Kaley Barcenas How will patient get home at discharge: Family will take pt home [id number] Note* Brief Op Note - Robert Pugh MD - 01/21/2022 12:24 PM EST Brief Post Operative Note Patient Name: Vickie Gonzalez : 1955 (66 y.o.) Date of Service: 01/21/2022 CSN: [id number] Procedure(s): Transcatheter Aortic Valve Replacement TRANSCATHETER AORTIC VALVE REPLACEMENT FEMORAL APPROACH Pre-Operative Diagnoses: * severe aortic stenosis Post-Operative Diagnoses: * Same as Pre-Op Diagnosis Surgeon(s) and Role: Panel 1: * Lindsey Plummer MD - Primary * Stanley Grant MD Panel 2: * Meir Arthur MD - Primary * Robert Pugh MD Anesthesiologist: Chapito Mohan MD Student Nurse Digital Editor: Deep Sawant Ballistic Technician: Kishan Rascon RN; Alena Barker, TECHNOLOGIST; Gina Ann, JERRY; Judd Hoover, JERRY Thin Film Technician: Zulma Bowen Scrub Person: ST Raven; Danette [...] Implant Name Type Inv. Item Serial No. .Net Programmer Lot No. LRB No. Used Action CLOSURE PERCLOSE PROSTYLE - [id number] Closure Device CLOSURE PERCLOSE PROSTYLE GARAY VAS N/A 2 Implanted VALVE 34MM EVOLUT PRO AORTIC - [id number] Percutaneous Valve VALVE 34MM EVOLUT PRO AORTIC [id number] MEDTRONIC N/A 1 Implanted Drain(s): * No LDAs found * Wound(s): * No LDAs found * Robert Pugh MD 01/21/2022 12:24 PM [facility] Work Phone: 1([phone]) 639-272502-22-2022 Attending History and physical note* Angelica Randall CNP - 01/21/2022 10:05 AM EST INTERVAL HISTORY AND PHYSICAL Patient Name: Vickie Gonzalez Admit Date: 2220101 MR #: [id number] : 1955 The H&P has been reviewed [...] Name: Vickie Gonzalez Admit Date: MR #: [id number] : 1955 Physicians: Nicol Ibanez MD (Family) [...] tablet by mouth daily . Historical Provider, [id number]-VMDUWKZAI-MJWU ORAL Take 1 tablet by mouth daily [...] Wt 106.3 kg (234 lb 5.6 oz) ObF782% BMI 37.82 kg/m General: Alert, cooperative, no [...] Component Value Date HGBA1C 6.1 (H) 01/09/2022 @QQZWHQG71@ CT TAVR Chest Abdomen Pelvis without hydration [...] the abdomen or pelvis. VK/tde Workstation ID: [id number] Carotid Duplex Result Date: 01/09/2022 Patient Info Name: VICKIE GONZALEZ Age: 66 years : 1955 Gender: Female Exam Date: 01/09/2022 11:00 AM Patient Status: Outpatient Inspector And Mender: Corina BOWDEN RVT^^^^ Referring Physician: ANGELICA RANDALL ; Attending Physician: ANGELICA RANDALL Indications I35.0 - Aortic valve stenosis, severe Z01.810 - Pre-operative cardiovascular examination R09.89 - Other specified symptoms and signs involving the circulatory and respiratory systems - Preop TAVR Procedure Description 91012 Duplex examination using B-mode, color and spectral [...] (valve) insufficiency Referring Physician: BLAINE SILVEIRA ; [id number] BMI:36.64 kg/m2 Summary 1. Left ventricular systolic [...] mmHg MV VTI 28 cm MV Decel Calvert 718 cm/s2 MV PHT 48 ms MVArea [...] cm/s AR VTI 179 cm AR Decel Calvert 490 cm/s2 AR PHT 283 ms AR [...] ml/m2 16-34 RA Dimensions RA Systolic Major Dracut Length (4C) 7.17 cm <=5.30 RAArea (4C) [...] stable. Stable examination. Stable cardiomegaly. Workstation ID: [id number] History and physical note* Angelica Randall CNP - 01/21/2022 10:05 AM EST INTERVAL HISTORY AND PHYSICAL Patient Name: Vickie Gonzalez Admit Date: 2220101 MR #: [id number] : 1955 The H&P has been reviewed [...] Name: Vickie Gonzalez Admit Date: MR #: [id number] : 1955 Physicians: Nicol Ibanez MD (Family) [...] tablet by mouth daily . Historical Provider, DOQQJUV-ODPMIBECX-ULBM ORAL Take 1 tablet by mouth daily [...] 3 doses call 911 . 06/11/21 Blaine Silviera MD pravastatin (PRAVACHOL) 40 MG tablet Take [...] Wt 106.3 kg (234 lb 5.6 oz) QtQ160% BMI 37.82 kg/m General: Alert, cooperative, no [...] Component Value Date HGBA1C 6.1 (H) 01/09/2022 @ETJHIYI05@ CT TAVR Chest Abdomen Pelvis without hydration [...] acute process in the abdomen or pelvis. Shopdeca/tde Workstation ID: [id number] Carotid Duplex Result Date: 01/09/2022 Patient Info Name: VICKIE GONZALEZ Age: 66 years : 1955 Gender: Female Exam Date: 01/09/2022 11:00 AM Patient Status: Outpatient Inspector And Mender: Corina BOWDEN RVT^^^^ Referring Physician: ANGELICA RANDALL ; Attending Physician: ANGELIAC RANDALL Indications I35.0 - Aortic valve stenosis, severe Z01.810 - Pre-operative cardiovascular examination R09.89 - Other specified symptoms and signs involving the circulatory and respiratory systems - Preop TAVR Procedure Description 17839 Duplex examination using B-mode, color and spectral [...] (valve) insufficiency Referring Physician: BLAINE SILVEIRA ; [id number] BMI:36.64 kg/m2 Summary 1. Left ventricular systolic [...] mmHg MV VTI 28 cm MV Decel Calvert 718 cm/s2 MV PHT 48 ms MVArea [...] cm/s AR VTI 179 cm AR Decel Calvert 490 cm/s2 AR PHT 283 ms AR [...] ml/m2 16-34 RA Dimensions RA Systolic Major Dracut Length (4C) 7.17 cm <=5.30 RAArea (4C) [...] stable. Stable examination. Stable cardiomegaly. Workstation ID: [id number] documented in this [id number] Note* Op Note - Robert Pugh MD - 01/21/2022 7:22 AM EST VICKIE GONZALEZ [facility] [id number] 1955 DATE 01/21/2022 OPERATIVE REPORT SURGEON ROBERT [...] condition. ROBERT PUGH MD D 01/21/2022 12:30 [id number] T 01/21/2022 12:47 WJF/MODL [id number] Nurse Surgical operation note* Luly Arceo RN - 01/17/2022 12:24 PM EST [facility] Surgical Department Patient Instructions for [facility]: Prior to surgery: Please bathe the [...] if desired. When you arrive at the [facility] on the day of your surgery, please note that high heel builder parking is free. Pull up to the [...] to view our online educational program in N-Sided? It is very helpful to watch this as it can help you understand your surgery preparation process here at [facility]. It will provide you with [...] contact surgeon's office with any additional questions. [id number] Nurse Note* Luly Arceo RN - 01/17/2022 12:24 PM EST [facility] Surgical Department Patient Instructions for [facility]: Prior to surgery: Please bathe the [...] if desired. When you arrive at the [facility] on the day of your surgery, please note that high heel builder parking is free. Pull up to the [...] to view our online educational program in N-Sided? It is very helpful to watch this as it can help you understand your surgery preparation process here at [facility]. It will provide you with [...] with any additional questions. documented in this [id number] Miscellaneous Notes* Assessment & Plan Note - [...] Lindsey Plummer MD, MSc, GILBERTO, FACC, [facility]. [facility] documented in this [id number] History of Present illness Narrative* Lindsey Plummer MD - 01/09/2022 8:05 PM EST Structural Heart Disease Clinic Consult Heart & Vascular [facility] 01/09/2022 Lindsey Plummer MD [address] [id number] Patient: Vickie Gonzalez Date of : 1955 [...] Lindsey Plummer MD, MSc, [place]ERT[place], FACC, [facility]. [facility] Follow-up: No follow-ups [...] Final Result by Diego Fox MD (12/30/2021 [id number]) CCTA Heart (Preventive Maintenance Engineer read) (Results Pending) HOME Medications: Patient's Medications [...] Take 1 tablet by mouth daily . HBAMBMR-TFBLBZIDR-XENE ORAL Take 1 tablet by mouth daily [...] LDLCALC, LDLDIRECT, TRIG, HDL documented in this [id number] History of Present illness Narrative* Meir Arthur MD - 01/09/2022 1:07 PM EST [facility] TAVR CONSULTATION Patient Name: Vickie Gonzalez Admit Date: MR #: [id number] : 1955 Physicians: Nicol Ibanez MD (Family) [...] tablet by mouth daily . Historical Provider, LPYNFEO-XVTUZXPQQ-IXEH ORAL Take 1 tablet by mouth daily [...] Wt 106.3 kg (234 lb 5.6 oz) BzA389% BMI 37.82 kg/m General: Alert, cooperative, no [...] Component Value Date HGBA1C 6.1 (H) 01/09/2022 @JUQPKXD11@ CT TAVR Chest Abdomen Pelvis without hydration [...] acute process in the abdomen or pelvis. Shopdeca/tde Workstation ID: [id number] Carotid Duplex Result Date: 01/09/2022 Patient Info Name: VICKIE GONZALEZ Age: 66 years : 1955 Gender: Female Exam Date: 01/09/2022 11:00 AM Patient Status: Outpatient Inspector And Mender: Corina BOWDEN RVT^^^^ Referring Physician: ANGELICA RANDALL ; Attending Physician: ANGELICA RANDALL Indications I35.0 - Aortic valve stenosis, severe Z01.810 - Pre-operative cardiovascular examination R09.89 - Other specified symptoms and signs involving the circulatory and respiratory systems - Preop TAVR Procedure Description 57915 Duplex examination using B-mode, color and spectral [...] (valve) insufficiency Referring Physician: BLAINE SILVEIRA ; [id number] BMI:36.64 kg/m2 Summary 1. Left ventricular systolic [...] mmHg MV VTI 28 cm MV Decel Calvert 718 cm/s2 MV PHT 48 ms MVArea [...] cm/s AR VTI 179 cm AR Decel Calvert 490 cm/s2 AR PHT 283 ms AR [...] ml/m2 16-34 RA Dimensions RA Systolic Major Dracut Length (4C) 7.17 cm <=5.30 RAArea (4C) [...] stable. Stable examination. Stable cardiomegaly. Workstation ID: [id number] * Angelica Taylor Tonia, LAST TRIMMER - 01/09/2022 12:44 PM EST [facility] TAVR CONSULTATION Patient Name: Vickie Gonzalez Admit Date: MR #: [id number] : 1955 Physicians: Nicol Ibanez MD (Family) [...] tablet by mouth daily . Historical Provider, ZXOAZPU-QITMAGRUQ-FLWQ ORAL Take 1 tablet by mouth daily [...] Wt 106.3 kg (234 lb 5.6 oz) SeX450% BMI 37.82 kg/m General: Alert, cooperative, no [...] Component Value Date HGBA1C 6.1 (H) 01/09/2022 @ZAHNXTC67@ CT TAVR Chest Abdomen Pelvis without hydration [...] the abdomen or pelvis. VK/tde Workstation ID: [id number] Carotid Duplex Result Date: 01/09/2022 Patient Info Name: VICKIE GONZALEZ Age: 66 years : 1955 Gender: Female Exam Date: 01/09/2022 11:00 AM Patient Status: Outpatient Inspector And Mender: Corina BOWDEN RVT^^^^ Referring Physician: ANGELICA RANDALL ; Attending Physician: ANGELICA RANDALL Indications I35.0 - Aortic valve stenosis, severe Z01.810 - Pre-operative cardiovascular examination R09.89 - Other specified symptoms and signs involving the circulatory and respiratory systems - Preop TAVR Procedure Description 33262 Duplex examination using B-mode, color and spectral [...] (valve) insufficiency Referring Physician: BLAINE SILVEIRA ; [id number] BMI:36.64 kg/m2 Summary 1. Left ventricular systolic [...] mmHg MV VTI 28 cm MV Decel Calvert 718 cm/s2 MV PHT 48 ms MVArea [...] cm/s AR VTI 179 cm AR Decel Calvert 490 cm/s2 AR PHT 283 ms AR [...] ml/m2 16-34 RA Dimensions RA Systolic Major Dracut Length (4C) 7.17 cm <=5.30 RAArea (4C) [...] stable. Stable examination. Stable cardiomegaly. 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 [place] and was on plaquenil a while, but stopped * Assessment & Plan Note - Blaine Silveira MD - 06/10/2021 11:29 AM EDT Associated Problem(s): Aortic insufficiency symptoms could also be Aortic Stenosis/AI will recheck echo * Assessment & Plan Note - Blaine Silveira MD - 06/10/2021 11:24 AM EDT Associated Problem(s): Coronary artery disease involving chick[place] ind[place] 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 angina pectoris Has had 2 spells of chest / jaw discomfort and shortness of breath, relieved with rest Will get a stress, she will also check and walk and if gets predictable may need a cath continue asa/metoprolol and will give sl ntg documented in this [id number] History of Present illness Narrative* Blaine Silveira MD - 06/10/2021 11:34 AM EDT Patient Name: Vickie Gonzalez MR #: [id number] Interventional Cardiology Blaine Silveira MD, [facility] 06/10/21 Dear Nicol Ibanez MD, Vickie Gonzalez was seen in follow up for : Problem Coronary Artery Disease Involving [place] Coronary Artery of [place] Heart Without Angina Pectoris CABG 2000 Cath 2010 all grafts open Aortic Insufficiency Moderate to Severe Asx AI-- same 12/2017 only mild-moderate Elevated Sed Rate Hld (Hyperlipidemia) Assessment and Plan Coronary artery disease involving chick[place]om[place] indian 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 angina pectoris Has had 2 [...] and also could be fibrosiing mediastinitis 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 EZDOAVP-CCUXCILVX-TZON ORAL Take 1 tablet by mouth daily [...] patient is not nervous/anxious. documented in this [id number] Instructions* Patient Instructions* Zoila Cueto MA - 06/10/2021 11:15 AM EDT How to contact your Care Team: Provider: Dr. Silveira Nurse: Iliana Madsen RN In case of an emergency please call 911. REFILLS: When in need for refills please call your care team or the office at [phone]. Please include medication name, pharmacy name, and specify 30-day or 90-day supply. Please check with your pharmacy within 24 hours of request for your refill. You must follow up as directed to continue current refills. Thank you! documented [facility]Evaluation [facility]* Diagnosis Coronary artery disease involving chick[place] ind[place] 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 angina pectoris- Primary [facility] Diagnosis Coronary artery disease involving [place] ind[place] 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 angina pectoris Nonrheumatic aortic valve insufficiency Elevated sed rate Elevated sedimentation rate Mixed hyperlipidemia [facility]* Diagnosis Nonrheumatic aortic valve insufficiency- Primary [facility]* Diagnosis Nonrheumatic aortic valve insufficiency- Primary [facility]* Diagnosis Aortic valve stenosis, severe- Primary Aortic valve disorders Pre-operative cardiovascular examination Other specified symptoms and signs involving the circulatory and respiratory systems [facility]* Diagnosis Aortic valve stenosis, severe- Primary Aortic valve disorders Pre-operative cardiovascular examination Other abnormal findings in urine Abnormal coagulation profile Abnormal coagulation profile Dyspnea, unspecified type Abnormal finding of blood chemistry, unspecified [facility]* Diagnosis Encounter for preprocedure screening laboratory testing for COVID-19- Primary [facility]* Diagnosis Encounter for preoperative screening laboratory testing for COVID-19 virus- Primary [facility]* Diagnosis Encounter for preoperative screening laboratory testing for COVID-19 virus- Primary [facility]* Diagnosis Severe aortic insufficiency- Primary Aortic valve stenosis, severe Aortic valve disorders Pre-operative cardiovascular examination [facility] Diagnosis Aortic valve stenosis, severe Aortic valve disorders Pre-operative cardiovascular examination [facility] Diagnosis Aortic valve stenosis, severe- Primary Aortic valve disorders Severe aortic insufficiency Aortic valve stenosis, severe Aortic valve disorders Severe aortic insufficiency Aortic valve stenosis, severe Aortic valve disorders Severe aortic insufficiency [facility]* Diagnosis Aortic valve stenosis, severe Aortic valve disorders Severe aortic insufficiency Encounter for preprocedure screening laboratory testing for COVID-19- Primary Aortic valve stenosis, severe Aortic valve disorders Severe aortic insufficiency [facility]* Diagnosis S/P TAVR (transcatheter aortic valve replacement)- Primary [facility]* Diagnosis Severe aortic stenosis- Primary Aortic valve disorders S/P TAVR (transcatheter aortic valve replacement) [facility] Diagnosis S/P TAVR (transcatheter aortic valve replacement)- Primary [facility]* Diagnosis S/P TAVR (transcatheter aortic valve replacement)- Primary Shortness of breath Shortness of breath [facility]* Diagnosis S/P TAVR (transcatheter aortic valve replacement)- Primary [facility]* Diagnosis S/P TAVR (transcatheter aortic valve replacement)- Primary Hypertension, unspecified type [facility]* Diagnosis Onset Date Resolution Status Basal cell carcinoma (BCC) of left lower extremity acute [id number] acute BMI 40.0-44.9, adult chronic HTN (hypertension) chronic [facility] Work Phone: Evaluation note* Diagnosis Onset Date Resolution Status Basal cell carcinoma (BCC) of left lower extremity acute [id number] acute BMI 40.0-44.9, adult chronic HTN (hypertension) chronic Basal cell carcinoma (BCC) of left lower extremity acute PDQ-PJGQ-[id number] acute BMI 40.0-44.9, adult chronic HTN (hypertension) chronic 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 [facility] Work Phone: Evaluation note* Diagnosis Onset Date Resolution Status Basal cell carcinoma (BCC) of left lower extremity acute [id number] acute BMI 40.0-44.9, adult chronic HTN (hypertension) chronic Basal cell carcinoma (BCC) of left lower extremity acute [id number] acute BMI 40.0-44.9, adult chronic HTN (hypertension) chronic 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 Basal cell carcinoma (BCC) of left lower extremity acute [id number]-[id number] acute BMI 40.0-44.9, adult chronic HTN (hypertension) chronic 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 [facility] Work Phone: Evaluation note* Diagnosis Onset Date Resolution Status Basal cell carcinoma (BCC) of left lower extremity acute [id number] acute BMI 40.0-44.9, adult chronic HTN (hypertension) chronic Basal cell carcinoma (BCC) of left lower extremity acute QIS-GDHF-[id number] acute BMI 40.0-44.9, adult chronic HTN (hypertension) chronic 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 Basal cell carcinoma (BCC) of left lower extremity acute IGW-ZFGE-[id number] acute BMI 40.0-44.9, adult chronic HTN (hypertension) chronic 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 Basal cell carcinoma (BCC) of left lower extremity acute WTP-XDYA-[id number] acute HTN (hypertension) chronic 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 [facility] Work Phone: Evaluation note* Diagnosis Osteoarthritis of right knee, unspecified osteoarthritis type- Primary Hypertension, unspecified type [facility]* Diagnosis Osteoarthritis of right knee- Primary Osteoarthrosis, unspecified whether generalized or localized, lower leg Coronary artery disease involving chick[place] ind[place] 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 angina pectoris- Primary Osteoarthritis of right knee, unspecified osteoarthritis type Severe aortic insufficiency Osteoarthritis of right knee, unspecified osteoarthritis type documented in this encounter [facility] noteNo assessment information availableWSelect [facility] Work Phone: Evaluation note* Diagnosis Osteoarthritis of [...] replacement- Primary [facility]* Diagnosis Status post total right knee replacement- Primary [facility] encounter [facility]* Diagnosis Status post total right knee replacement- Primary documented in this encounter [facility] note* Diagnosis Status post total right knee replacement- Primary documented in this encounter [facility] note* Diagnosis Status post total right knee replacement- Primary documented in this encounter [facility] note* Diagnosis Status post total right knee replacement- Primary documented in this encounter [facility] note* Diagnosis Status post total right knee replacement- Primary documented in this encounter [facility] note* Diagnosis Status post total right knee replacement- Primary documented in this encounter [facility] note* Diagnosis Status post total right knee replacement- Primary documented in this encounter [facility] note* Diagnosis Status post total right knee replacement- Primary documented in this encounter [facility] note* Diagnosis Status post total right knee replacement- Primary documented in this encounter [facility] note* Diagnosis Onset Date Resolution Status [...] artery bypass resolved May 30, 2025 2:39am [facility] Work Phone: Hospital Discharge instructions* Attachments The following attachments cannot be sent through Care Everywhere. * Transcatheter Aortic Valve Implantation (LIONEL): Post-op ([place]) documented in this encounterOhioHealthHospital Discharge instructions Additional Instructions Ice your left eye several times a day for the next few days, follow-up with your PCP and return for any worsening of your symptoms.[facility] Work Phone: Patient's home Plan of care note* Visit Details Visit Type -SN [facility] Star t of Care Discipline -M[facility] Problems Problem Start Date Status Goals Interventions Wound Care and/or Skin Problems Disciplines: Mcc 01/27/2024 Active 1 goal linked to scheduled/documented intervention 1 goal intervention scheduled/documented in this visit Assess and Instruct Home Visit Disciplines: Mcc 01/27/2024 Active 1 goal linked to scheduled/documented intervention 4 goal interventions scheduled/documented in this visit Medication Management Disciplines: Mcc 01/27/2024 Active 1 goal linked to scheduled/documented intervention 1 goal intervention scheduled/documented in this visit Pain Management Disciplines: Mcc 01/27/2024 Active 1 goal linked to scheduled/documented [...] Management Goal:Pain Completed [facility]* Visit Details [facility] -[facility] Problems Problem Start Date Status Goals Interventions Wound Care and/or Skin Problems Disciplines: Mcc 01/27/2024 Active 1 goal linked to scheduled/documented intervention 1 goal intervention scheduled/documented in this visit Assess and Instruct Home Visit Disciplines: Mcc 01/27/2024 Active 1 goal linked to scheduled/documented intervention 4 goal interventions scheduled/documented in this visit Medication Management Disciplines: Mcc 01/27/2024 Active 1 goal linked to scheduled/documented intervention 1 goal intervention scheduled/documented in this visit Pain Management Disciplines: Mcc 01/27/2024 Active 1 goal linked to scheduled/documented [...] Management Goal:Pain Completed [facility]* Visit [...] of care note* Visit Details Visit Type -FINISHING AREA OPERATOR Routine Visi t Discipline -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 [...] also Clinician taught: patient Clinician instructed on: sailboat captain educated pt on importance of increased elevation frequency d/t considerable swelling this date which is hindering ROM. pt verbalized understanding, plan to elevate at least 4 times a day c foot above heart as instructed pt FINISHING AREA OPERATOR this date. chair flex stretch and heel slides x10, ext prop 5'. QS, SAQ, SLR, LAQ x20 ea to improve mobility and strength. pt c/o significant tightness in knee during flex stretching and mod increased pain. sailboat captain educated pt on importance of pushing [...] flex during amb d/t tightness in knee. sailboat captain provided demo of good toe off and allowing knee to bend during toe off to improve mobility and flex rom. pt c mod improvement p sailboat captain demo. Therapist provided cueing for proper TA from seated position, including reaching back for chair and feeling chair c back of legs to avoid falls. Cueing also provided for slow, eccentric control c return to sitting position. pt sba for sit to supine ta this date. sailboat captain assisted pt c placement of pillows for cp and elevation p tx to allow for relaxed position to allow pt to remain elevated for 1 hour to decrease inflammation Patient/caregiver is able to teach back 90% of instruction. [facility] Visit Details Visit Type -FINISHING AREA OPERATOR Routine Visi t Discipline -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 [...] in quad tendon insertion during flex stretching. sailboat captain provided mod assist c flex stretching to improve mobility. sailboat captain provided education on importance of flex [...] amb 175' today c fww and sba. sailboat captain provided demo and vc for increased [...] 95% of instruction. [facility] Visit Details Visit Type -SN HH Routine Vi sit Discipline -Mcc Problems Problem Start Date Status Goals Interventions Wound Care and/or Skin Problems Disciplines: Mcc 01/27/2024 Active 1 goal linked to scheduled/documented intervention 1 goal intervention scheduled/documented in this visit Assess and Instruct Home Visit Disciplines: Mcc 01/27/2024 Active 1 goal linked to scheduled/documented intervention 4 goal interventions scheduled/documented in this visit Medication Management Disciplines: Mcc 01/27/2024 Active 1 goal linked to scheduled/documented intervention 1 goal intervention scheduled/documented in this visit Pain Management Disciplines: Mcc 01/27/2024 Active 1 goal linked to scheduled/documented [...] Management Goal:Pain Completed [facility] Visit Details Visit Type -FINISHING AREA OPERATOR Routine Visi t Discipline -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 [...] toe gait pattern c decresaed vc needed. sailboat captain instructed pt to continue c frequent [...] 95% of instruction. [facility] Visit Details Visit Type -DAY CARE CENTER DIRECTOR HH Routine Discipline -Mcc Problems Problem Start Date Status Goals Interventions Wound Care and/or Skin Problems Disciplines: Mcc 01/27/2024 Active 1 goal linked to scheduled/documented intervention 1 goal intervention scheduled/documented in this visit Assess and Instruct Home Visit Disciplines: Mcc 01/27/2024 Active 1 goal linked to scheduled/documented intervention 4 goal interventions scheduled/documented in this visit Medication Management Disciplines: Mcc 01/27/2024 Active 1 goal linked to scheduled/documented intervention 1 goal intervention scheduled/documented in this visit Pain Management Disciplines: Mcc 01/27/2024 Active 1 goal linked to scheduled/documented [...] Management Goal:Pain Completed [facility] Visit Details Visit Type -FINISHING AREA OPERATOR Routine Visi t Discipline -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 [...] progress. very tight, firm end feel c sailboat captain assisted heel slides this date Patient/caregiver is able to teach back 95% of instruction. Instruct Mobility Problem:Mobility Goal:Mobility Completed Patient reports: walking more but does report increased pain this date d/t decerase pain med freqency. Clinician taught: patient Clinician instructed on: sailboat captain educated pt on not weaning off [...] 95% of instruction. [facility] Visit Details Visit Type -SN HH OASIS Star t of Care Discipline -Mcc Problems Problem Start Date Status Goals Interventions Wound Care and/or Skin Problems Disciplines: Mcc 01/27/2024 Active 1 goal linked to scheduled/documented intervention 1 goal intervention scheduled/documented in this visit Assess and Instruct Home Visit Disciplines: Mcc 01/27/2024 Active 1 goal linked to scheduled/documented intervention 4 goal interventions scheduled/documented in this visit Medication Management Disciplines: Mcc 01/27/2024 Active 1 goal linked to scheduled/documented intervention 1 goal intervention scheduled/documented in this visit Pain Management Disciplines: Mcc 01/27/2024 Active 1 goal linked to scheduled/documented [...] Management Goal:Pain Completed [facility] Visit Details Visit Type -DAY CARE CENTER DIRECTOR Routine Discipline -Mcc Problems Problem Start Date Status Goals Interventions Wound Care and/or Skin Problems Disciplines: Mcc 01/27/2024 Active 1 goal linked to scheduled/documented intervention 1 goal intervention scheduled/documented in this visit Assess and Instruct Home Visit Disciplines: Mcc 01/27/2024 Active 1 goal linked to scheduled/documented intervention 4 goal interventions scheduled/documented in this visit Medication Management Disciplines: Mcc 01/27/2024 Active 1 goal linked to scheduled/documented intervention 1 goal intervention scheduled/documented in this visit Pain Management Disciplines: Mcc 01/27/2024 Active 1 goal linked to scheduled/documented [...] Management Goal:Pain Completed [facility] Visit Details Visit Type -FINISHING AREA OPERATOR Routine Visi t Discipline -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 [...] in quad tendon insertion during flex stretching. sailboat captain provided mod assist c flex stretching to improve mobility. sailboat captain provided education on importance of flex [...] amb 175' today c fww and sba. sailboat captain provided demo and vc for increased [...] 95% of instruction. [facility] Visit Details Visit Type -FINISHING AREA OPERATOR Routine Visi t Discipline -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 [...] toe gait pattern c decresaed vc needed. sailboat captain instructed pt to continue c frequent [...] of care note* Visit Details Visit Type -FINISHING AREA OPERATOR Routine Visi t Discipline -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 [...] also Clinician taught: patient Clinician instructed on: sailboat captain educated pt on importance of increased elevation frequency d/t considerable swelling this date which is hindering ROM. pt verbalized understanding, plan to elevate at least 4 times a day c foot above heart as instructed pt FINISHING AREA OPERATOR this date. chair flex stretch and heel slides x10, ext prop 5'. QS, SAQ, SLR, LAQ x20 ea to improve mobility and strength. pt c/o significant tightness in knee during flex stretching and mod increased pain. sailboat captain educated pt on importance of pushing [...] flex during amb d/t tightness in knee. sailboat captain provided demo of good toe off and allowing knee to bend during toe off to improve mobility and flex rom. pt c mod improvement p sailboat captain demo. Therapist provided cueing for proper TA from seated position, including reaching back for chair and feeling chair c back of legs to avoid falls. Cueing also provided for slow, eccentric control c return to sitting position. pt sba for sit to supine ta this date. sailboat captain assisted pt c placement of pillows for cp and elevation p tx to allow for relaxed position to allow pt to remain elevated for 1 hour to decrease inflammation Patient/caregiver is able to teach back 90% of instruction. [facility] Visit Details Visit Type -FINISHING AREA OPERATOR Routine Visi t Discipline -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 [...] RA for DC to outpt PT at [facility] Home Exercise Program Problem:Home Exercise Program Goal:Home [...] pt amb c sc and sba today. sailboat captain provided vc and demo for proper [...] 100% of instruction. [facility] Visit Details Visit Type -SN HH OASIS Star t of Care Discipline -Mcc Problems Problem Start Date Status Goals Interventions Wound Care and/or Skin Problems Disciplines: Mcc 01/27/2024 Active 1 goal linked to scheduled/documented intervention 1 goal intervention scheduled/documented in this visit Assess and Instruct Home Visit Disciplines: Mcc 01/27/2024 Active 1 goal linked to scheduled/documented intervention 4 goal interventions scheduled/documented in this visit Medication Management Disciplines: Mcc 01/27/2024 Active 1 goal linked to scheduled/documented intervention 1 goal intervention scheduled/documented in this visit Pain Management Disciplines: Mcc 01/27/2024 Active 1 goal linked to scheduled/documented [...] Management Goal:Pain Completed [facility] Visit Details Visit Type -SN HH Non-OASIS/ Discipline DC Discipline -Mcc Problems Problem Start Date Status Goals Interventions Wound Care and/or Skin Problems Disciplines: Mcc 01/27/2024 Resolved on 02/11/2024 1 goal linked to scheduled/documented intervention 1 goal intervention scheduled/documented in this visit Assess and Instruct Home Visit Disciplines: Mcc 01/27/2024 Resolved on 02/11/2024 1 goal linked to scheduled/documented intervention 4 goal interventions scheduled/documented in this visit Medication Management Disciplines: Mcc 01/27/2024 Resolved on 02/11/2024 1 goal linked to scheduled/documented intervention 1 goal intervention scheduled/documented in this visit Pain Management Disciplines: Mcc 01/27/2024 Resolved on 02/11/2024 1 goal linked [...] of care note* Visit Details Visit Type -FINISHING AREA OPERATOR Routine Visi t Discipline -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 [...] RA for DC to outpt PT at [facility] Home Exercise Program Problem:Home Exercise Program Goal:Home [...] pt amb c sc and sba today. sailboat captain provided vc and demo for proper [...] 100% of instruction. [facility] Visit [...] Care Plan Scheduled [facility] Actions Pt admitted in to [facility]. Reviewed care plan, medications, pain mgmt, ice and elevation, S&S to report, wound care and safety with ambulation. Patient/caregiver verbalized understanding and agreement. [facility] Actions Pt admitted in to [facility]. Reviewed care plan, medications, pain mgmt, ice and elevation, S&S to report, wound care and safety with ambulation. Patient/caregiver verbalized understanding and agreement. [facility] Actions Homebound Status [...] teach wound/skin/incision care as per discharge instructions Medical Case Worker Goals: Patient remains safe at home, Patient [...] be able to bend it more PT [facility] complete, PT 1x1, 3x2 Skilled interventions at [facility] included: Pt educated on icing 3-4x per [...] determined by P.T. [facility] Actions Homebound Status [...] determined by P.T. [facility]* Actions Homebound Status [...] determined by P.T. [facility]* Actions CP assessment [...] Home: 2-story house [facility] Actions Homebound Status [...] determined by P.T. [facility] Actions [facility] to [facility]. Reviewed care plan, medications, pain mgmt, ice and elevation, S&S to report, wound care and safety with ambulation. Patient/caregiver verbalized understanding and agreement. [facility] Actions CP assessment [...] Progress note* Actions Pt admitted in to [facility]. Reviewed care plan, medications, pain mgmt, ice and elevation, S&S to report, wound care and safety with ambulation. Patient/caregiver verbalized understanding and agreement. [facility] Actions Homebound Status [...] determined by P.T. [facility] (narrative)No reason for referral information availableWSelect Medical [facility] Work Phone: Reason for visit Narrative* Auth/Cert Specialty Diagnoses / Procedures Referred By Contac t Referred To Contact Diagnoses severe aortic stenosis Procedures [place] TRANSCATHETER TRANSAPICAL REPLACEMT AORTIC VALVE Transcatheter Aortic Valve Replacement TRANSCATHETER AORTIC VALVE REPLACEMENT FEMORAL APPROACH Referral ID Status Reason Start Date Expiration Date Visits Re quested Visits Authorized [id number] 1 1 [facility] Diagnosis SOB (shortness of breath) Shortness of breath Diagnosis SOB (shortness of breath) Shortness of breath Coronary artery disease involving 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 angina pectoris Fibrosing mediastinitis Mediastinitis Nonrheumatic aortic valve insufficiency Diagnosis Nonrheumatic aortic valve insufficiency Summary Purpose Family History Relationship Condition Age at Onset Recorded Date/T ayleen mother Diabetes mellitus Unknown father Obstructive sleep apnea syndrome Unknown Advance Directives Documents on File Type Date Recorded Patient Transmission Calibration Engineer Expl anation Advance Directives and Living Will Documents on File Type Date Recorded Patient Transmission Calibration Engineer Expl anation Advance Directives and Livin g Will Advance Directives and Livin g Will 06/14/2019 12:00 AM Documents on File Type Date Recorded Patient Transmission Calibration Engineer Expl anation Advance Directives and Livin g Will Advance Directives and Livin g Will 06/14/2019 12:00 AM Documents on File Type Date Recorded Patient Transmission Calibration Engineer Expl anation Advance Directives and Livin g Will Advance Directives and Livin g Will 01/09/2022 7:51 AM Documents on File Type Date Recorded Patient Transmission Calibration Engineer Expl anation Advance Directives and Livin g [...] Documents on File Type Date Recorded Patient Transmission Calibration Engineer Expl anation Advance Directives and Livin g [...] No June 25, 2023 10:48am Power of Stage Manager No June 25 10:48am Advance Directive Response Recorded Date/ Time Living Will No June 25, 2023 9:48am Power of Stage Manager No June 25 9:48am Latest Code [...] Do you have a Healthcare Power of Stage Manager? Yes May 29, 2025 11:26pm Name of Medical Power of Stage Manager Andrei Omalley May 29, 2025 11:26pm Reason for Referral Status Reason Specialty Diagnoses / Procedures Referred By Contact Referred To Contact Pending Review Cardiology Diagnoses Nonrheumatic aortic valve insufficiency Procedures Echocardiogram complete Blaine Silveira MD [address] [place] [address] Status Reason Specialty Diagnoses / Procedures Referre d By Contact Referred To Contact Closed Cardiology Diagnoses Nonrheumatic aortic valve insufficiency Procedures Echocardiogram Blaine Stark MD [address] [place] [address] Status Reason Specialty Diagnoses / Procedures Referred By Contact Referred To Contact Authorized Cardiology Diagnoses Coronary artery disease involving 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 angina pectoris Procedures ECG 12 Lead Blaine Silveira MD [address] [place] [address] Status Reason Specialty Diagnoses / Procedures Referred By Contact Referred To Contact New Request Radiology Diagnoses Coronary artery disease involving 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 angina pectoris Procedures NM Myocardial Perfusion Multiple SPECT Blaine Silveira MD [address] [place] [address] Status Reason Specialty Diagnoses / Procedures Referred By Contact Referred To Contact New Request Cardiology Diagnoses Nonrheumatic aortic valve insufficiency Procedures Echocardiogram complete Blaine Silveira MD [address] [place] [address] Status Reason Specialty Diagnoses / Procedures Referred By Contact Referred To Contact Pending Review Cardiology Diagnoses Nonrheumatic aortic valve insufficiency Procedures Echocardiogram complete Blaine Silveira MD [address] [place] [address] Specialty Diagnoses / Procedures Referred By Contac t Referred To Contact Cardiology Diagnoses Aortic valve stenosis, severe Pre-operative cardiovascular examination Procedures ECG 12 Lead Dye, Angelica Taylor, LAST TRIMMER [address] [place] [address] Referral ID Status Reason Start Date Expiration Date V isits Requested Visits Authorized [id number] Authorized 12/31/2021 12/31/2022 1 1 Specialty Diagnoses / Procedures Referred By Contac t Referred To Contact Cardiology Diagnoses Aortic valve stenosis, severe Pre-operative cardiovascular examination Other specified symptoms and signs involving the circulatory and respiratory systems Procedures Carotid Duplex DyeAngelica, LAST TRIMMER [address] [place] [address] Referral ID Status Reason Start Date Expiration Date V isits Requested Visits Authorized [id number] Authorized 12/31/2021 12/31/2022 1 1 Specialty Diagnoses / Procedures Referred By Contac t Referred To Contact Cardiology Diagnoses S/P TAVR (transcatheter aortic valve replacement) Procedures ECG 12 Lead DyeAngelica LAST TRIMMER [address] [place] [address] Referral ID Status Reason Start Date Expiration Date Visits Re quested Visits Authorized [id number] Closed 01/22/2022 01/22/2023 1 1 Specialty Diagnoses / Procedures Referred By Contac t Referred To Contact Cardiology Diagnoses S/P TAVR (transcatheter aortic valve replacement) Procedures Echocardiogram complete Angelica Randall, LAST TRIMMER [address] [address] Referral ID Status Reason Start Date Expiration Date Visits Re quested Visits Authorized [id number] Closed 01/22/2022 01/22/2023 1 1 Specialty Diagnoses / Procedures Referred By Contac t Referred To Contact Cardiac Rehabilitation Diagnoses S/P TAVR (transcatheter aortic valve replacement) Angelica Randall, LAST TRIMMER [address] [address] Referral ID Status Reason Start Date Expiration Date V isits Requested Visits Authorized [id number] Authorized 01/21/2022 01/21/2023 1 1 Referral ID Status Reason Start Date Expiration Date Visits Re quested Visits Authorized [id number] Closed 06/19/2022 06/19/2023 1 1 Referral ID Status Reason Start Date Expiration Date V isits Requested Visits Authorized [id number] Authorized 06/19/2022 06/19/2023 1 1 Specialty Diagnoses / Procedures Referred By Contac t Referred To Contact Cardiology Diagnoses Osteoarthritis of right knee, unspecified osteoarthritis type Jass Pepe MD [address] [place] [id number] [place] [address] Referral ID Status Reason Start Date Expiration Date Visits Requested Visits Authorized [id number] Authorized Specialty Services Required/Pat rachelnt's Best Interest 09/26/2024 1 1 Specialty Diagnoses / Procedures Referred By Contac t Referred To Contact Radiology Diagnoses Osteoarthritis of right knee, unspecified osteoarthritis type Procedures CT Knee Right Without Contrast Jass Pepe MD [address] [place] [address] Referral ID Status Reason Start Date Expiration Date V isits Requested Visits Authorized [id number] New Request 09/27/2023 09/26/2024 1 1 Specialty Diagnoses / Procedures Referred By Contac t Referred To Contact Rehabilitation Diagnoses Status post total right knee replacement Jass Pepe MD [address] [place] [address] [facility] [address] [place] [address] Referral ID Status Reason Start Date Expiration Date V isits Requested Visits Authorized [id number] Authorized 02/01/2024 01/31/2025 1 1 History of Present Illness * Blaine Silveira MD - 06/06/2019 2:56 PM EDT Patient Name: Vickie Gonzalez [facility] MR #: [id number] Interventional Cardiology Blaine Silveira MD, [facility] 06/06/19 Dear Nicol Ibanez MD, Vickie Gonzalez was seen in follow up for : Problem Coronary Artery Disease Involving [place] Coronary Artery of [place] Heart Without Angina Pectoris CABG 2001 Cath 2010 all grafts open Aortic Insufficiency Moderate to Severe Asx AI-- same 12/2017 Fibrosing Mediastinitis Dx at time of cabg Assessment and Plan Coronary artery disease involving 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 angina pectoris Rare angina Doing [...] puffs 2 (two) times a day . [id number] ORAL Take 1 tablet by mouth daily [...] cell carcinoma (BCC) of left lower extremity [id number] BMI 40.0-44.9, adult HTN (hypertension) Chief Complaint WOUND WOUND Reason for Visit Basal cell carcinoma (BCC) of left lower extremity [id number] BMI 40.0-44.9, adult HTN (hypertension) Basal cell carcinoma (BCC) of left lower extremity [id number] BMI 40.0-44.9, adult HTN (hypertension) Non-pressure chronic ulcer of left calf with fat layer exposed Chief Complaint WOUND WOUND WOUND LAC Reason for Visit Basal cell carcinoma (BCC) of left lower extremity [id number] BMI 40.0-44.9, adult HTN (hypertension) Basal cell carcinoma (BCC) of left lower extremity [id number] BMI 40.0-44.9, adult HTN (hypertension) Non-pressure chronic ulcer of left calf with fat layer exposed Basal cell carcinoma (BCC) of left lower extremity [id number] BMI 40.0-44.9, adult HTN (hypertension) Non-pressure chronic ulcer of left calf with fat layer exposed Chief Complaint WOUND WOUND WOUND LAC WOUND Reason for Visit Basal cell carcinoma (BCC) of left lower extremity [id number] BMI 40.0-44.9, adult HTN (hypertension) Basal cell carcinoma (BCC) of left lower extremity [id number] BMI 40.0-44.9, adult HTN (hypertension) Non-pressure chronic ulcer of left calf with fat layer exposed Basal cell carcinoma (BCC) of left lower extremity [id number] BMI 40.0-44.9, adult HTN (hypertension) Non-pressure chronic ulcer of left calf with fat layer exposed Basal cell carcinoma (BCC) of left lower extremity [id number] HTN (hypertension) Non-pressure chronic ulcer of left [...] and content) DATE CREATED AUTHOR 05/24/2018 [facility] DATE CREATED AUTHOR AUTHOR'S ORGANIZ ATION 09/10/2022 [facility] DATE CREATED AUTHOR AUTHOR'S ORGANIZ ATION 01/25/2023 [facility] DATE CREATED AUTHOR AUTHOR'S ORGANIZ ATION 02/22/2023 [facility] DATE CREATED AUTHOR AUTHOR'S ORGANIZ ATION 11/15/2023 [facility] DATE CREATED AUTHOR AUTHOR'S ORGANIZ ATION 02/16/2024 [facility] DATE CREATED AUTHOR AUTHOR'S ORGANIZ ATION 03/15/2024 [facility] DATE CREATED AUTHOR AUTHOR'S ORGANIZ ATION 03/30/2024 [facility] DATE CREATED AUTHOR AUTHOR'S ORGANIZ ATION 01/14/2025 [facility] Reason for Visit (unrecogniz ed section and content) Reason Comments Annual Exam no complaints or con cerns for todays visit Status Reason Specialty Diagnoses / Procedures Referre d By Contact Referred To Contact Closed Cardiology Diagnoses Nonrheumatic aortic valve insufficiency Procedures Echocardiogram complete Blaine Silveira MD [address] [place] [address] Reason Comments Annual Exam Jaw Pain Shortness of Breath Reason Comments Initial Visit (Intake) TAVR Reason Comments Follow-up 2 Week TAVR Reason Comments Follow-up 1 Year TAVR Reason Comments Follow-up Specialty Diagnoses / Procedures Referred By Yanet guerra Referred To Contact Cardiology Diagnoses Osteoarthritis of right knee, unspecified osteoarthritis type Jass Pepe MD [address] [place] [address] Blaine Silveira MD [address] [place] [address] Referral ID Status Reason Start Date Expiration Date V isits Requested Visits Authorized [id number] Closed Specialty Services Required/Leda ent's Best Interest 09/27/2023 09/26/2024 1 1 Reason Onset Date Comments Medication Refill 01/11/2024 Reason Comments Pre-op Exam Specialty Diagnoses / Procedures Referred By Yanet guerra Referred To Contact Referral ID Status Reason Start Date Expiration Date Visits Re quested Visits Authorized [id number] 1 Reason Onset Date Comments Medication Refill 02/08/2024 Reason Comments Follow-up Suture / Staple Removal Reason Comments 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 Specialty Diagnoses / Procedures Referred By Contac t Referred To Contact Rehabilitation Diagnoses Status post total right knee replacement Jass Pepe MD [address] [place] [address] [facility] [address] [place] [address] Referral ID Status Reason Start Date Expiration Date V isits Requested Visits Authorized [id number] Authorized 02/01/2024 01/31/2025 13 199 Specialty Diagnoses / Procedures Referred By Contac t Referred To Contact Rehabilitation Diagnoses Status post total right knee replacement Jass Pepe MD [address] [id number] [facility] [address] [place] [address] Assessment & Plan Note - Blaine Silveira [...] issues Associated Problem(s): Coronary artery disease involving chick[place]om[place] indian 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 angina pectoris Rare angina Doing well, Medications reviewed and will continue current meds Followup 1 year documented in this encounter Care Teams (unrecognized sec tion and content) Regional Economic Liaison Relationship Specialty Start Date End Date Nicol Ibanez MD [address] [place] [address] PCP - General 08/26/11 Jass Pepe MD [address] [place] [address] Consulting Physician Orthopedic Surgery 05/20/16 Regional Economic Liaison Relationship Specialty Start Date End Date Nicol Ibanez MD [address] [place] [address] PCP - General 08/26/11 Jass Pepe MD [address] [place] [address] Consulting Physician Orthopedic Surgery 05/20/16 Regional Economic Liaison Relationship Specialty Start Date End Date Nicol Ibanez MD [address] [place] [address] PCP - General 08/26/11 Jass Pepe MD [address] [place] [address] Consulting Physician Orthopedic Surgery 05/20/16 Regional Economic Liaison Relationship Specialty Start Date End Date Nicol Ibanez MD [address] [place] [address] PCP - General 08/26/11 Jass Pepe MD [address] [place] [address] Consulting Physician Orthopedic Surgery 05/20/16 Regional Economic Liaison Relationship Specialty Start Date End Date Nicol Ibanez MD [address] [place] [address] PCP - General 08/26/11 Jass Pepe MD [address] [place] [address] Consulting Physician Orthopedic Surgery 05/20/16 Regional Economic Liaison Relationship Specialty Start Date End Date Nicol Ibanez MD [address] [place] [address] PCP - General 08/26/11 Jass Pepe MD [address] [place] [address] Consulting Physician Orthopedic Surgery 05/20/16 Regional Economic Liaison Relationship Specialty Start Date End Date Nicol Ibanez MD [address] [place] [address] PCP - General 08/26/11 Jass Pepe MD [address] [place] [address] Consulting Physician Orthopedic Surgery 05/20/16 Regional Economic Liaison Relationship Specialty Start Date End Date Nicol Ibanez MD [address] [place] [address] PCP - General 08/26/11 Jass Pepe MD [address] [place] [address] Consulting Physician Orthopedic Surgery 05/20/16 Regional Economic Liaison Relationship Specialty Start Date End Date Nicol Ibanez MD [address] [place] [address] PCP - General 08/26/11 Jass Pepe MD [address] [place] [address] Consulting Physician Orthopedic Surgery 05/20/16 Regional Economic Liaison Relationship Specialty Start Date End Date Nicol Ibanez MD [address] [place] [address] PCP - General 08/26/11 Jass Pepe MD [address] [place] [address] Consulting Physician Orthopedic Surgery 05/20/16 Regional Economic Liaison Relationship Specialty Start Date End Date Nicol Ibanez MD [address] [place] [address] PCP - General 08/26/11 Jass Pepe MD [address] [place] [address] Consulting Physician Orthopedic Surgery 05/20/16 Regional Economic Liaison Relationship Specialty Start Date End Date Nicol Ibanez MD [address] [place] [address] PCP - General 08/26/11 Jass Pepe MD [address] [place] [address] Consulting Physician Orthopedic Surgery 05/20/16 Team Status: [...] MD Attending Provider, Emergency Provi aleksandar Active Regional Economic Liaison Relationship Specialty Start Date End Date Nicol Ibanez MD [address] [place] [address] PCP - General 08/26/11 Jass Pepe MD [address] [place] [address] Consulting Physician Orthopedic Surgery 05/20/16 Regional Economic Liaison Relationship Specialty Start Date End Date Nicol Ibanez MD [address] [place] [address] PCP - General 08/26/11 Jass Pepe MD [address] [place] [address] Consulting Physician Orthopedic Surgery 05/20/16 Team Status: Active Member Role Status Dates Dr. Nicol Ibanez MD Family Provider Active Dr. Kirill Newell MD Primary Care Provider Active Team Status: Inactive Member Role Status Dates Dr. Kirill Newell MD Primary Care Provide r, Attending Provider, Referring Provider Active Regional Economic Liaison Relationship Specialty Start Date End Date Nicol Ibanez MD [address] [place] [address] PCP - General 08/26/11 Jass Pepe MD [address] [place] [address] Consulting Physician Orthopedic Surgery 05/20/16 Regional Economic Liaison Relationship Specialty Start Date End Date Nicol Ibanez MD [address] [place] [address] PCP - General 08/26/11 Jass Pepe MD [address] [place] [address] Consulting Physician Orthopedic Surgery 05/20/16 Regional Economic Liaison Relationship Specialty Start Date End Date Nicol Ibanez MD [address] [place] [address] PCP - General 08/26/11 Jass Pepe MD [address] [place] [address] Consulting Physician Orthopedic Surgery 05/20/16 Regional Economic Liaison Relationship Specialty Start Date End Date Nicol Ibanez MD [address] [place] [address] PCP - General 08/26/11 Jass Pepe MD [address] [place] [address] Consulting Physician Orthopedic Surgery 05/20/16 Regional Economic Liaison Relationship Specialty Start Date End Date Nicol Ibanez MD [address] [place] [address] PCP - General 08/26/11 Jass Pepe MD [address] [place] [address] Consulting Physician Orthopedic Surgery 05/20/16 Regional Economic Liaison Relationship Specialty Start Date End Date Nicol Ibanez MD [address] [place] [address] PCP - General 08/26/11 Jass Pepe MD [address] [place] [address] Consulting Physician Orthopedic Surgery 05/20/16 Regional Economic Liaison Relationship Specialty Start Date End Date Nicol Ibanez MD [address] [place] [address] PCP - General 08/26/11 Jass Pepe MD [address] [place] [address] Consulting Physician Orthopedic Surgery 05/20/16 Regional Economic Liaison Relationship Specialty Start Date End Date Nicol Ibanez MD [address] [place] [address] PCP - General 08/26/11 Jass Pepe MD [address] [place] [address] Consulting Physician Orthopedic Surgery 05/20/16 Regional Economic Liaison Relationship Specialty Start Date End Date Nicol Ibanez MD [address] [place] [address] PCP - General 08/26/11 Jass Pepe MD [address] [place] [address] Consulting Physician Orthopedic Surgery 05/20/16 Regional Economic Liaison Relationship Specialty Start Date End Date Nicol Ibanez MD [address] [place] [address] PCP - General 08/26/11 Jass Pepe MD [address] [place] [address] Consulting Physician Orthopedic Surgery 05/20/16 Regional Economic Liaison Relationship Specialty Start Date End Date Nicol Ibanez MD [address] [place] [address] PCP - General 08/26/11 Jass Pepe MD [address] [place] [address] Consulting Physician Orthopedic Surgery 05/20/16 Regional Economic Liaison Relationship Specialty Start Date End Date Nicol Ibanez MD [address] [place] [address] PCP - General 08/26/11 Jass Pepe MD [address] [place] [address] Consulting Physician Orthopedic Surgery 05/20/16 Regional Economic Liaison Relationship Specialty Start Date End Date Nicol Ibanez MD [address] [place] [address] PCP - General 08/26/11 Jass Pepe MD [address] [place] [address] Consulting Physician Orthopedic Surgery 05/20/16 Regional Economic Liaison Relationship Specialty Start Date End Date Nicol Ibanez MD [address] [place] [address] PCP - General 08/26/11 Jass Pepe MD [address] [place] [address] Consulting Physician Orthopedic Surgery 05/20/16 Regional Economic Liaison Relationship Specialty Start Date End Date Nicol Ibanez MD [address] [place] [address] PCP - General 08/26/11 Jass Pepe MD [address] [place] [address] Consulting Physician Orthopedic Surgery 05/20/16 Regional Economic Liaison Relationship Specialty Start Date End Date Nicol Ibanez MD [address] [place] [address] PCP - General 08/26/11 Jass Pepe MD [address] [place] [address] Consulting Physician Orthopedic Surgery 05/20/16 Regional Economic Liaison Relationship Specialty Start Date End Date Nicol Ibanez MD [address] [place] [address] PCP - General 08/26/11 Jass Pepe MD [address] [place] [address] Consulting Physician Orthopedic Surgery 05/20/16 Regional Economic Liaison Relationship Specialty Start Date End Date Nicol Ibanez MD [address] [place] [address] PCP - General 08/26/11 Jass Pepe MD [address] [place] [address] Consulting Physician Orthopedic Surgery 05/20/16 Regional Economic Liaison Relationship Specialty Start Date End Date Nicol Ibanez MD [address] [place] [address] PCP - General 08/26/11 Jass Pepe MD [address] [place] [address] Consulting Physician Orthopedic Surgery 05/20/16 Regional Economic Liaison Relationship Specialty Start Date End Date Nicol Ibanez MD [address] [place] [address] PCP - General 08/26/11 Jass Pepe MD [address], [facility] Consulting Physician Orthopedic Surgery 05/20/16 Regional Economic Liaison Relationship Specialty Start Date End Date Nicol Ibanez MD [address] [place], [facility] PCP - General 08/26/11 Jass Pepe MD [address], [facility] Consulting Physician Orthopedic Surgery 05/20/16 Regional Economic Liaison Relationship Specialty Start Date End Date Nicol Ibanez MD [address] [place], [facility] PCP - General 08/26/11 Jass Pepe MD [address] [place] [address] Consulting Physician Orthopedic Surgery 05/20/16 Regional Economic Liaison Relationship Specialty Start Date End Date Nicol Ibanez MD [address] [place] [address] PCP - General 08/26/11 Jass Pepe MD [address] [place] [address] Consulting Physician Orthopedic Surgery 05/20/16 Team Status: [...] Gaby Evans RN)[id number] (Stopped - Provider: Gaby Evans RN) 041 (New Bag - Provider: Gaby [...] PLACED TUBE OR TUBE less than 14 [place] For tube administration: dissolve tablet(s) with 4 [...] BE BASED ON THE PRIMARY CLINICAL RECORDS. [facility]. provides no warranty or guarantee of the accuracy or completeness of information in this document.
[2025-05-30 05:25] LABS: Troponin T High Sensitivity 21 ng/L (<=14)
[2025-05-30 05:40] LABS: AST(SGOT) 33 U/L (<=31); Alanine Aminotransfer ALT/SGPT 21 U/L (<=34); Albumin, Serum 3.6 g/dL (3.4-4.8); Alkaline Phosphatase 118 U/L (35-104); Anion Gap 12 (5-15); BUN 14 mg/dL (4-19); BUN/Creat Ratio 17.9 RATIO (10-20); Calcium,Total 9.1 mg/dL (7.6-11.0); Carbon Dioxide 22.9 mmol/L (21.0-32.0); Chloride 105 mmol/L (98-108); Estimated Creatinine Clearance 87.12 ml/min (50-250); Globulin 3.5 g/dL (2.2-4.2); Glucose 105 mg/dL (70-99); Potassium 4.1 mmol/L (3.3-5.1)
[2025-05-30 06:16] LABS: Cholesterol 140 mg/dL (<=200); Low Density Lipoprotein Calc. 67 mg/dL; Triglycerides 72 mg/dL; Very Low Density Lipoprotein 14 mg/dL (5-40); cholesterol:hdl ratio screen 2.41
[2025-05-30 06:51] LABS: Troponin T High Sens 2 HR 20 ng/L (<=14)
--- NOTE | 2025-05-30 07:14 | PN.HOSP_ITS ---
Reason for Visit Reason for Visit: Diagnoses Obstructive sleep apnea (adult) (pediatric) (05/30/25) Nonrheumatic aortic (valve) insufficiency (05/30/25) Unspecified atrial flutter (05/30/25) Mediastinitis (05/30/25) Tachycardia, unspecified (05/30/25) Palpitations (05/30/25) Body mass index [BMI] 40.0-44.9, adult (05/30/25) Presence of aortocoronary bypass graft (05/30/25) Presence of prosthetic heart valve (05/30/25) Objective Data Objective Data Vital Signs: Vital Signs Temp Pulse Resp BP Pulse Ox O2 Del Method 98.2 F 62 19 H 112/63 93 Room Air 05/30/25 02:47 05/30/25 06:00 05/30/25 06:00 05/30/25 06:00 05/30/25 06:00 05/30/25 06:00 Oxygen Delivery Method Room Air Weight: 121.9 kg Body Mass Index (BMI) 42.7 Intake & Output: Intake and Output for Last 24 Hours 05/28/25 05/29/25 05/30/25 23:59 23:59 23:59 Intake Total 1069.41 / 1069.41 Balance 1069.41 / 1069.41 Lab / Micro Data 05/30/25 04:35 05/30/25 04:35 Labs: Laboratory Results - last 24 hr 05/30/25 00:20: WBC 9.1, RBC 4.25, Hgb 12.4, Hct 37.5, MCV 88.2, MCH 29.2, MCHC 33.1, RDW Std Deviation 47.8 H, RDW Coeff of Mark 14.8 H, Plt Count 223, MPV 11.4, Immature Gran % (Auto) 0.300, Neut % (Auto) 63.2, Lymph % (Auto) 24.9, [place] % (Auto) 8.3, Eos % (Auto) 2.9, Baso % (Auto) 0.4, Absolute Neuts (auto) 5.7, Absolute Lymphs (auto) 2.26, Nucleated RBC % 0, Sodium 138, Potassium 3.9, Chloride 103, Carbon Dioxide 23.9, Anion Gap 12, BUN 16, Creatinine 0.86, Estim Creat Clear Calc 81.19, Est GFR (MDRD) Non-Af 72, BUN/Creatinine Ratio 19.0, G lucose 105 H, Hemoglobin A1c 6.3 H, Calcium 9.4, Magnesium 2.0, TSH 3.020 05/30/25 04:35: WBC 8.4, RBC 4.13 L, Hgb 11.9 L, Hct 36.5 L, MCV 88.4, MCH 28.8, MCHC 32.6, RDW Std Deviation 47.9 H, RDW Coeff of Mark 14.8 H, Plt Count 213, MPV 11.2, Immature Gran % (Auto) 0.400, Neut % (Auto) 61.8, Lymph % (Auto) 28.6, [place] % (Auto) 6.7, Eos % (Auto) 2.0, Baso % (Auto) 0.5, Absolute Neuts (auto) 5.2, Absolute Lymphs (auto) 2.41, Nucleated RBC % 0, Sodium 140, Potassium 4.1, Chloride 105, Carbon Dioxide 22.9, Anion Gap 12, BUN 14, Creatinine 0.78, Estim Creat Clear Calc 87.12, Est GFR (MDRD) Non-Af 82, BUN/Creatinine Ratio 17.9, G lucose 105 H, Calcium 9.1, Phosphorus 3.7, Total Bilirubin 0.74, AST 33 H, ALT 21, Alkaline Phosphatase 118 H, Troponin T High Sens 21 H, Total Protein 7.1, Albumin 3.6, Globulin 3.5, Albumin/Globulin Ratio 1.0, Triglycerides 72, Cholesterol 140, LDL Cholesterol, Calc 67, VLDL Cholesterol 14, HDL Cholesterol 58, Cholesterol/HDL Ratio 2.41 05/30/25 05:54: Troponin T Hi Sens 2 Hr 20 H Radiography Diagnostic Testing: Radiology Impression Chest CTA 05/30/25 03:11 IMPRESSION: 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 Progress imaging as clinically determined. Reading Location: [place] [address]
[2025-05-30] MEDS: Aspirin E.C. 81 MG Tablet PO (08:16)
[2025-05-30] MEDS: Lactobacillis Acidophilus 1 CAP PO (08:18)
[2025-05-30] MEDS: Cholecalciferol (Vit D3) 125 MCG CAPSULE (5,000 UNITS) PO (08:18)
[2025-05-30] MEDS: Vitamin B Comp W-C Capsule 1 CAP PO (08:18)
[2025-05-30] MEDS: Magnesium Chloride 64 MG Delay Rel.Tablet PO ×2 (08:19)
[2025-05-30] MEDS: Metoprolol(XL)Succ 50 MG Tablet PO (08:20)
[2025-05-30 09:04] LABS: Troponin T High Sens 4 HR 20 ng/L (<=14)
--- NOTE | 2025-05-30 10:00 | CASEMGMT ---
Addendum entered by Dorina Stockton 05/30/25 12:55: Follow for possible anti-coagulant @ dc. Original Note: RN?CM?ECOLOGICAL RISK ASSESSOR?CM?to room to meet with patient for initial transition planning/care coordination?assessment.?RN?CM?introduced self and role at [facility].? Pt voices understanding and consents to?assessment?at this time.? Pt resting in bed in no distress at this time.? Pt is A/O at this time and answers all questions appropriately.?? Care providers, pharmacy, and demographics verified/updated at this time. Strata: 1 PCP: Dr Newell Specialists: Dr Hoskins-business law teacher in [place]. Construction Skills Teacher @ [facility]. Preferred Pharmacy: [facility] in [place] Insurance: [facility], MCR supplement Prescription Benefit:?yes Living Will/HPOA:? is HCPOA. SonAndrei, is 1st alternative. LNOK: , [place]entry. SonAndrei. , . Living Arrangements: Lives w/ in one-story home w/basement, w/2 steps to enter. Laundry is on main floor. Independent w/ADL's and IADL's. Transportation:?Pt states drives self and states no transportation concerns at this time.? also drives. DME: ? Denies using any DME and denies needs.? HHC/SNF: No hx of SNF. Has had HHC in the past after knee surgery. Pt denies need for any HHC or OP therapy. Pt wishes to return home and states has no concerns with going home at time of discharge.?CM?to follow for any discharge planning/needs.? Pt voices no further concerns/needs at this time.? Advised pt to ask for?CM?if any further questions/concerns/needs arise.? Voices understanding. PLAN:??Home Priscilla BHATTN?RN?CM
--- NOTE | 2025-05-30 10:00 | CASEMGMT ---
Addendum entered by Dorina Stockton 05/30/25 12:55: Follow for possible anti-coagulant @ dc. Original Note: RN?CM?ACTIVITIES SPECIALIST?CM?to room to meet with patient for initial transition planning/care coordination?assessment.?RN?CM?introduced self and role at [facility].? Pt voices understanding and consents to?assessment?at this time.? Pt resting in bed in no distress at this time.? Pt is A/O at this time and answers all questions appropriately.?? Care providers, pharmacy, and demographics verified/updated at this time. Strata: 1 PCP: Dr Newell Specialists: Dr Hoskins-police specialist in [place]. Principal Research Economist @ [facility]. Preferred Pharmacy: [facility] in [place] Insurance: [facility], MCR supplement Prescription Benefit:?yes Living Will/HPOA:? is HCPOA. SonAndrei, is 1st alternative. LNOK: , [place]. SonAndrei. , . Living Arrangements: Lives w/ in one-story home w/basement, w/2 steps to enter. Laundry is on main floor. Independent w/ADL's and IADL's. Transportation:?Pt states drives self and states no transportation concerns at this time.? also drives. DME: ? Denies using any DME and denies needs.? HHC/SNF: No hx of SNF. Has had HHC in the past after knee surgery. Pt denies need for any HHC or OP therapy. Pt wishes to return home and states has no concerns with going home at time of discharge.?CM?to follow for any discharge planning/needs.? Pt voices no further concerns/needs at this time.? Advised pt to ask for?CM?if any further questions/concerns/needs arise.? Voices understanding. PLAN:??Home Priscilla BHATTN?RN?CM
[2025-05-30] MEDS: Diltiazem 125 MG in Dextrose 5%-Water (100mL Bag) 100 ML 10 MG IV (10:56)
--- NOTE | 2025-05-30 15:32 | PCM.HOSP.N ---
Hospitalist Note Patient is a 69-year-old female who has a history of TAVR and CAD with CABG x 2 in 2000. 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 She presented to the emergency department with a racing heart and palpitations and EKG showed new onset atrial flutter. It sounds like she may have had a flutter previously however after her TAVR or before her TAVR. Upon presentation she was complaining of tachycardia with palpitations. Heart rates were being sustained in the 120-130 range. An outpatient was she was instructed to take metoprolol that did not help her symptoms so she came emergency department for further evaluation. She had fatigue and some shortness of breath about 6 weeks now. She has never been tested for sleep apnea. She has no other significant symptoms. Vital signs on presentation other than tachycardia and elevated blood pressure with blood pressure 187/116 and a repeat of 168/109. Labs showed a chronic stable anemia with hemoglobin 11.9 but were otherwise unremarkable. CTA of the chest was performed and showed mediastinal fibrosis surrounding the right proximal pulmonary artery with moderately severe narrowing and poststenotic dilation of the right pulmonary artery. She was admitted maintained on her home metoprolol and placed on IV Cardizem drip. She has followed previously with cardiology at [facility] and with Dr. Danielle here in [place] for pulmonary medicine however he has not seen her since what appears to be about 2019. She currently is on a Cardizem drip as well as metoprolol. Heart rates were in the 70s but she remains in atrial flutter. At this time we will try to transition her off the drip to oral Cardizem 30 every 6 hours. We do have room to uptitrate then with plans to may get extended release Cardizem at the time of discharge if we get good heart rate control. Echocardiogram remains pending at this time. TSH is within normal limits. If we can maintain her heart rate control plan will be for discharge tomorrow on 05/31/2025. We have also started her on Eliquis 5 mg p.o. twice daily and discussed with her pathophysiology of A-fib and stroke. She voiced understanding.
--- NOTE | 2025-05-30 17:33 | PCM.CONS.C ---
Assessment & Plan Assessment/Plan (1) Fibrosing mediastinitis: (2) Status post double vessel coronary artery bypass: (3) Atrial flutter with rapid ventricular response: (4) Aortic valve insufficiency: QUALIFIERS: Cardiac valve disease etiology: etiology unspecified Qualified Code(s): I35.1 - Nonrheumatic aortic (valve) insufficiency PLAN: Plan Cardiac care plan recommendation 69-year-old patient with fibrosing mediastinitis Has CAD with two-vessel bypass, done in [facility] in 2000. History of aortic valve bioprosthesis/TAVR This presentation she presented with palpitation And an review of the evaluation by EKG showed evidence of atrial flutter with 1-2 AV block initially started on treatment with calcium channel shivam control the rate Serial cardiac markers negative does not have any symptoms of chest pain. Echocardiographic evaluation showed LV function preserved with normal functioning aortic valve bioprosthesis Moderate tricuspid regurgitation and mild mitral regurgitation and no pericardial effusion. Other medical problems with history of MADDY, and to be scheduled for sleep study. I discussed cardiac care plan which she will include long acting OAC/Eliquis 5 mg twice daily In addition to rate control using calcium channel shivam if needed can add low-dose beta-shivam for better control of ventricular rate I did mention to the patient that she would require synchronized cardioversion if she continues to have atrial flutter. This can be set up as an elective outpatient in 6 to 8 weeks. Meantime also to follow-up with her primary automotive power electronics engineer in [place] in regard to possible future atrial flutter ablation. And to continue on her current treatment. 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 Will continue to monitor and follow-up clinically I also advised to establish with a local automotive power electronics engineer for continuation of cardiac care. Dianne Perez MD,[facility] HPI Consult Data Date of Consult: 05/30/25 HPI Narrative Reason for Consultation: CAD s/p CABG/TAVR atrial flutter/fibrosing mediastinitis HPI Narrative: FEMI GONZALEZ, is a 69 F who presents [facility] Medical History (Updated 05/30/25 @ 04:[address] Remy Rai, DO) Hernia Chronic cough Allergic rhinitis Asthma Heart murmur Aortic valve insufficiency HTN (hypertension) Home Medications ?Medication ?Instructions ?Recorded ?Last Taken ?Type aspirin 81 mg tablet,delayed 81 mg PO QDAY 12/22/17 Unknown History release (Adult Aspirin Regimen) cholecalciferol (vitamin D3) 125 5,000 unit PO QDAY 12/22/17 Unknown History mcg (5,000 unit) capsule pravastatin 40 mg tablet 40 mg PO QHS 12/22/17 Unknown History diphenhydramine HCl 25 mg capsule 25 mg PO QHS PRN sleep 09/02/18 05/28/25 History (Benadryl) spacer #1 ea 03/06/20 Unknown Rx Lactobacillus acidophilus 100 mg PO DAILY 05/29/25 Unknown History (Acidophilus capsule) ipratropium bromide 21 mcg (0.03 intranasal 05/29/25 05/28/25 History %) nasal spray levocetirizine 5 mg tablet (24HR 5 mg PO DAILY 05/29/25 Unknown History Allergy Relief) losartan 100 mg tablet 100 mg PO DAILY 05/29/25 Unknown History magnesium 250 mg tablet 250 mg PO DAILY 05/29/25 Unknown History metoprolol succinate 50 mg 50 mg PO DAILY 05/29/25 Unknown History tablet,extended release 24 hr montelukast 10 mg tablet 10 mg PO DAILY 05/29/25 Unknown History vitamin B complex (Vitamins B 1 cap PO DAILY 05/29/25 Unknown History Complex capsule) Allergy/AdvReac Type Severity Reaction Status Date / Time naproxen (From Naprosyn) Allergy Severe Hives Verified 05/29/25 23:10 Family History Mother Diabetes Father MADDY (obstructive sleep apnea) Surgical History S/P TAVR (transcatheter aortic valve replacement) Total knee replacement status Status post double vessel coronary artery bypass Social History Smoking Status: Never smoker second hand exposure: No alcohol intake: current alcohol intake frequency: a few times a month substance use type: former substance user Date of last use: marijuana in [place] Physical Exam Cardio Cardio Narrative: Patient seen and examined at bedside Comfortable does not have any symptoms her palpitation improving Review of laboratory monitor she had atrial flutter with controlled ventricular rate Cardiac exam normal bioprosthetic aortic valve sounds Risk Stratification Risk Stratification Applicable: No Objective Data Vital Signs: Vital Signs Temp Pulse Resp BP Pulse Ox O2 Del Method 98.3 F 99 16 134/70 H 95 Room Air 05/30/25 16:00 05/30/25 17:00 05/30/25 17:00 05/30/25 17:00 05/30/25 17:00 05/30/25 17:00 Oxygen Delivery Method Room Air Weight: 268 lb 11.896 oz Body Mass Index (BMI) 42.7 Intake & Output: Intake and Output for Last 24 Hours 05/28/25 05/29/25 05/30/25 23:59 23:59 23:59 Intake Total Balance Lab / Micro Data 05/30/25 04:35 05/30/25 04:35 Labs: Laboratory Results - last 24 hr 05/30/25 00:20: WBC 9.1, RBC 4.25, Hgb 12.4, Hct 37.5, MCV 88.2, MCH 29.2, MCHC 33.1, RDW Std Deviation 47.8 H, RDW Coeff of Mark 14.8 H, Plt Count 223, MPV 11.4, Immature Gran % (Auto) 0.300, Neut % (Auto) 63.2, Lymph % (Auto) 24.9, [place] % (Auto) 8.3, Eos % (Auto) 2.9, Baso % (Auto) 0.4, Absolute Neuts (auto) 5.7, Absolute Lymphs (auto) 2.26, Nucleated RBC % 0, Sodium 138, Potassium 3.9, Chloride 103, Carbon Dioxide 23.9, Anion Gap 12, BUN 16, Creatinine 0.86, Estim Creat Clear Calc 81.19, Est GFR (MDRD) Non-Af 72, BUN/Creatinine Ratio 19.0, Glucose 105 H, Hemoglobin A1c 6.3 H, Calcium 9.4, Magnesium 2.0, TSH 3.020 05/30/25 04:35: WBC 8.4, RBC 4.13 L, Hgb 11.9 L, Hct 36.5 L, MCV 88.4, MCH 28.8, MCHC 32.6, RDW Std Deviation 47.9 H, RDW Coeff of Mark 14.8 H, Plt Count 213, MPV 11.2, Immature Gran % (Auto) 0.400, Neut % (Auto) 61.8, Lymph % (Auto) 28.6, [place] % (Auto) 6.7, Eos % (Auto) 2.0, Baso % (Auto) 0.5, Absolute Neuts (auto) 5.2, Absolute Lymphs (auto) 2.41, Nucleated RBC % 0, Sodium 140, Potassium 4.1, Chloride 105, Carbon Dioxide 22.9, Anion Gap 12, BUN 14, Creatinine 0.78, Estim Creat Clear Calc 87.12, Est GFR (MDRD) Non-Af 82, BUN/Creatinine Ratio 17.9, Glucose 105 H, Calcium 9.1, Phosphorus 3.7, Total Bilirubin 0.74, AST 33 H, ALT 21, Alkaline Phosphatase 118 H, Troponin T High Sens 21 H, Total Protein 7.1, Albumin 3.6, Globulin 3.5, Albumin/Globulin Ratio 1.0, Triglycerides 72, Cholesterol 140, LDL Cholesterol, Calc 67, VLDL Cholesterol 14, HDL Cholesterol 58, Cholesterol/HDL Ratio 2.41 05/30/25 05:54: Troponin T Hi Sens 2 Hr 20 H 05/30/25 08:05: Troponin T Hi Sens 4Hr 20 H Cardiology Labs/Tests 05/30/25 00:20: WBC 9.1, RBC 4.25, Hgb 12.4, Hct 37.5, MCV 88.2, MCH 29.2, MCHC 33.1, Plt Count 223, MPV 11.4, Immature Gran % (Auto) 0.300, Neut % (Auto) 63.2, Lymph % (Auto) 24.9, [place] % (Auto) 8.3, Eos % (Auto) 2.9, Baso % (Auto) 0.4, Absolute Neuts (auto) 5.7, Nucleated RBC % 0, Sodium 138, Potassium 3.9, Chloride 103, Carbon Dioxide 23.9, Anion Gap 12, BUN 16, Creatinine 0.86, Est GFR (MDRD) Non-Af 72, BUN/Creatinine Ratio 19.0, Glucose 105 H, Hemoglobin A1c 6.3 H, Calcium 9.4, Magnesium 2.0 05/30/25 04:35: WBC 8.4, RBC 4.13 L, Hgb 11.9 L, Hct 36.5 L, MCV 88.4, MCH 28.8, MCHC 32.6, Plt Count 213, MPV 11.2, Immature Gran % (Auto) 0.400, Neut % (Auto) 61.8, Lymph % (Auto) 28.6, [place] % (Auto) 6.7, Eos % (Auto) 2.0, Baso % (Auto) 0.5, Absolute Neuts (auto) 5.2, Nucleated RBC % 0, Sodium 140, Potassium 4.1, Chloride 105, Carbon Dioxide 22.9, Anion Gap 12, BUN 14, Creatinine 0.78, Est GFR (MDRD) Non-Af 82, BUN/Creatinine Ratio 17.9, Glucose 105 H, Calcium 9.1, Phosphorus 3.7, Total Bilirubin 0.74, Triglycerides 72, Cholesterol 140, VLDL Cholesterol 14, HDL Cholesterol 58, Cholesterol/HDL Ratio 2.41 Rhythm: EKG: ECHO: Stress Test: Cardiac Cath: PCI: CT Surgery: Holter monitor: EPS: PPM: CXR: Chest CT Scan: Radiography Diagnostic Testing: Radiology Impression Echocardiogram 05/30/25 02:36 Interpretation Summary Normal function of aortic valve bioprosthesis/TAVR Normal aortic valve bioprosthesis function Mildly enlarged left atrium Moderately enlarged right atrium Mild MR No pericardial effusion Mild to moderate TR Contrast echo used Definity. 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 Progress imaging as clinically determined. Reading Location: [facility]-
--- NOTE | 2025-05-30 17:33 | PCM.CONS.C ---
Assessment & Plan Assessment/Plan (1) Fibrosing mediastinitis: (2) Status post double vessel coronary artery bypass: (3) Atrial flutter with rapid ventricular response: (4) Aortic valve insufficiency: QUALIFIERS: Cardiac valve disease etiology: etiology unspecified Qualified Code(s): I35.1 - Nonrheumatic aortic (valve) insufficiency PLAN: Plan Cardiac care plan recommendation 69-year-old patient with fibrosing mediastinitis Has CAD with two-vessel bypass, done in [facility] in 2000. History of aortic valve bioprosthesis/TAVR This presentation she presented with palpitation And an review of the evaluation by EKG showed evidence of atrial flutter with 1-2 AV block initially started on treatment with calcium channel shivam control the rate Serial cardiac markers negative does not have any symptoms of chest pain. Echocardiographic evaluation showed LV function preserved with normal functioning aortic valve bioprosthesis Moderate tricuspid regurgitation and mild mitral regurgitation and no pericardial effusion. Other medical problems with history of MADDY, and to be scheduled for sleep study. I discussed cardiac care plan which she will include long acting OAC/Eliquis 5 mg twice daily In addition to rate control using calcium channel shivam if needed can add low-dose beta-shivam for better control of ventricular rate I did mention to the patient that she would require synchronized cardioversion if she continues to have atrial flutter. This can be set up as an elective outpatient in 6 to 8 weeks. Meantime also to follow-up with her primary production expert in [place] in regard to possible future atrial flutter ablation. And to continue on her current treatment. 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 Will continue to monitor and follow-up clinically I also advised to establish with a local production expert for continuation of cardiac care. Dianne Perez MD,[facility] HPI Consult Data Date of Consult: 05/30/25 HPI Narrative Reason for Consultation: CAD s/p CABG/TAVR atrial flutter/fibrosing mediastinitis HPI Narrative: FEMI GONZALEZ, is a 69 F who presents [facility] Medical History (Updated 05/30/25 @ 04:[address] Remy Rai, DO) Hernia Chronic cough Allergic rhinitis Asthma Heart murmur Aortic valve insufficiency HTN (hypertension) Home Medications ?Medication ?Instructions ?Recorded ?Last Taken ?Type aspirin 81 mg tablet,delayed 81 mg PO QDAY 12/22/17 Unknown History release (Adult Aspirin Regimen) cholecalciferol (vitamin D3) 125 5,000 unit PO QDAY 12/22/17 Unknown History mcg (5,000 unit) capsule pravastatin 40 mg tablet 40 mg PO QHS 12/22/17 Unknown History diphenhydramine HCl 25 mg capsule 25 mg PO QHS PRN sleep 09/02/18 05/28/25 History (Benadryl) spacer #1 ea 03/06/20 Unknown Rx Lactobacillus acidophilus 100 mg PO DAILY 05/29/25 Unknown History (Acidophilus capsule) ipratropium bromide 21 mcg (0.03 intranasal 05/29/25 05/28/25 History %) nasal spray levocetirizine 5 mg tablet (24HR 5 mg PO DAILY 05/29/25 Unknown History Allergy Relief) losartan 100 mg tablet 100 mg PO DAILY 05/29/25 Unknown History magnesium 250 mg tablet 250 mg PO DAILY 05/29/25 Unknown History metoprolol succinate 50 mg 50 mg PO DAILY 05/29/25 Unknown History tablet,extended release 24 hr montelukast 10 mg tablet 10 mg PO DAILY 05/29/25 Unknown History vitamin B complex (Vitamins B 1 cap PO DAILY 05/29/25 Unknown History Complex capsule) Allergy/AdvReac Type Severity Reaction Status Date / Time naproxen (From Naprosyn) Allergy Severe Hives Verified 05/29/25 23:10 Family History Mother Diabetes Father MADDY (obstructive sleep apnea) Surgical History S/P TAVR (transcatheter aortic valve replacement) Total knee replacement status Status post double vessel coronary artery bypass Social History Smoking Status: Never smoker second hand exposure: No alcohol intake: current alcohol intake frequency: a few times a month substance use type: former substance user Date of last use: marijuana in [place] Physical Exam Cardio Cardio Narrative: Patient seen and examined at bedside Comfortable does not have any symptoms her palpitation improving 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 she 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 atrial flutter with controlled ventricular rate Cardiac exam normal bioprosthetic aortic valve sounds Risk Stratification Risk Stratification Applicable: No Objective Data Vital Signs: Vital Signs Temp Pulse Resp BP Pulse Ox O2 Del Method 98.3 F 99 16 134/70 H 95 Room Air 05/30/25 16:00 05/30/25 17:00 05/30/25 17:00 05/30/25 17:00 05/30/25 17:00 05/30/25 17:00 Oxygen Delivery Method Room Air Weight: 268 lb 11.896 oz Body Mass Index (BMI) 42.7 Intake & Output: Intake and Output for Last 24 Hours 05/28/25 05/29/25 05/30/25 23:59 23:59 23:59 Intake Total Balance Lab / Micro Data 05/30/25 04:35 05/30/25 04:35 Labs: Laboratory Results - last 24 hr 05/30/25 00:20: WBC 9.1, RBC 4.25, Hgb 12.4, Hct 37.5, MCV 88.2, MCH 29.2, MCHC 33.1, RDW Std Deviation 47.8 H, RDW Coeff of Mark 14.8 H, Plt Count 223, MPV 11.4, Immature Gran % (Auto) 0.300, Neut % (Auto) 63.2, Lymph % (Auto) 24.9, [place] % (Auto) 8.3, Eos % (Auto) 2.9, Baso % (Auto) 0.4, Absolute Neuts (auto) 5.7, Absolute Lymphs (auto) 2.26, Nucleated RBC % 0, Sodium 138, Potassium 3.9, Chloride 103, Carbon Dioxide 23.9, Anion Gap 12, BUN 16, Creatinine 0.86, Estim Creat Clear Calc 81.19, Est GFR (MDRD) Non-Af 72, BUN/Creatinine Ratio 19.0, Glucose 105 H, Hemoglobin A1c 6.3 H, Calcium 9.4, Magnesium 2.0, TSH 3.020 05/30/25 04:35: WBC 8.4, RBC 4.13 L, Hgb 11.9 L, Hct 36.5 L, MCV 88.4, MCH 28.8, MCHC 32.6, RDW Std Deviation 47.9 H, RDW Coeff of Mark 14.8 H, Plt Count 213, MPV 11.2, Immature Gran % (Auto) 0.400, Neut % (Auto) 61.8, Lymph % (Auto) 28.6, [place] % (Auto) 6.7, Eos % (Auto) 2.0, Baso % (Auto) 0.5, Absolute Neuts (auto) 5.2, Absolute Lymphs (auto) 2.41, Nucleated RBC % 0, Sodium 140, Potassium 4.1, Chloride 105, Carbon Dioxide 22.9, Anion Gap 12, BUN 14, Creatinine 0.78, Estim Creat Clear Calc 87.12, Est GFR (MDRD) Non-Af 82, BUN/Creatinine Ratio 17.9, Glucose 105 H, Calcium 9.1, Phosphorus 3.7, Total Bilirubin 0.74, AST 33 H, ALT 21, Alkaline Phosphatase 118 H, Troponin T High Sens 21 H, Total Protein 7.1, Albumin 3.6, Globulin 3.5, Albumin/Globulin Ratio 1.0, Triglycerides 72, Cholesterol 140, LDL Cholesterol, Calc 67, VLDL Cholesterol 14, HDL Cholesterol 58, Cholesterol/HDL Ratio 2.41 05/30/25 05:54: Troponin T Hi Sens 2 Hr 20 H 05/30/25 08:05: Troponin T Hi Sens 4Hr 20 H Cardiology Labs/Tests 05/30/25 00:20: WBC 9.1, RBC 4.25, Hgb 12.4, Hct 37.5, MCV 88.2, MCH 29.2, MCHC 33.1, Plt Count 223, MPV 11.4, Immature Gran % (Auto) 0.300, Neut % (Auto) 63.2, Lymph % (Auto) 24.9, [place] % (Auto) 8.3, Eos % (Auto) 2.9, Baso % (Auto) 0.4, Absolute Neuts (auto) 5.7, Nucleated RBC % 0, Sodium 138, Potassium 3.9, Chloride 103, Carbon Dioxide 23.9, Anion Gap 12, BUN 16, Creatinine 0.86, Est GFR (MDRD) Non-Af 72, BUN/Creatinine Ratio 19.0, Glucose 105 H, Hemoglobin A1c 6.3 H, Calcium 9.4, Magnesium 2.0 05/30/25 04:35: WBC 8.4, RBC 4.13 L, Hgb 11.9 L, Hct 36.5 L, MCV 88.4, MCH 28.8, MCHC 32.6, Plt Count 213, MPV 11.2, Immature Gran % (Auto) 0.400, Neut % (Auto) 61.8, Lymph % (Auto) 28.6, [place] % (Auto) 6.7, Eos % (Auto) 2.0, Baso % (Auto) 0.5, Absolute Neuts (auto) 5.2, Nucleated RBC % 0, Sodium 140, Potassium 4.1, Chloride 105, Carbon Dioxide 22.9, Anion Gap 12, BUN 14, Creatinine 0.78, Est GFR (MDRD) Non-Af 82, BUN/Creatinine Ratio 17.9, Glucose 105 H, Calcium 9.1, Phosphorus 3.7, Total Bilirubin 0.74, Triglycerides 72, Cholesterol 140, VLDL Cholesterol 14, HDL Cholesterol 58, Cholesterol/HDL Ratio 2.41 Rhythm: EKG: ECHO: Stress Test: Cardiac Cath: PCI: CT Surgery: Holter monitor: EPS: PPM: CXR: Chest CT Scan: Radiography Diagnostic Testing: Radiology Impression Echocardiogram 05/30/25 02:36 Interpretation Summary Normal function of aortic valve bioprosthesis/TAVR Normal aortic valve bioprosthesis function Mildly enlarged left atrium Moderately enlarged right atrium Mild MR No pericardial effusion Mild to moderate TR Contrast echo used Definity. 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 Progress imaging as clinically determined. Reading Location: [facility]-
[2025-05-30] MEDS: APIXABAN 5 MG TABLET PO (20:36)
[2025-05-30] MEDS: MELATONIN 3 MG TABLET PO (20:36)
[2025-05-31] VITALS (11 sets, daily range): BP systolic 130–148; BP diastolic 70–99; PULSE 82–124; RESP 16–18; TEMP 36.4–36.6; O2SAT 95–98; BMI 43.4
[2025-05-31 06:44] LABS: Hematocrit 37.5 % (37-47); Hemoglobin 12.1 g/dL (12.0-15.0); Immature Granulocytes Count 0.040 X10^3/uL (0.0-0.0); Mean Corp Hgb Conc 32.3 g/dL (32-36); Mean Corpuscular Volume 89.1 fL (81-99); Mean Platelet Vol. 11.4 fl (6.2-12.0); NRBC Flagged by Analyzer 0 % (0-5); Platelet Count 228 K/mm3 (150-450); RBC Distribution Width CV 15.3 % (11.6-14.6); RBC Distribution Width SD 49.7 fl (35.1-43.9); Red Blood Count 4.21 M/mm3 (4.2-5.4); White Blood Count 7.7 K/mm3 (4.4-11.0)
[2025-05-31 07:47] LABS: AST(SGOT) 31 U/L (<=31); Alanine Aminotransfer ALT/SGPT 23 U/L (<=34); Albumin, Serum 3.6 g/dL (3.4-4.8); Alkaline Phosphatase 118 U/L (35-104); Anion Gap 12 (5-15); BUN 17 mg/dL (4-19); BUN/Creat Ratio 20.2 RATIO (10-20); Calcium,Total 9.0 mg/dL (7.6-11.0); Carbon Dioxide 22.2 mmol/L (21.0-32.0); Chloride 106 mmol/L (98-108); Estimated Creatinine Clearance 84.77 ml/min (50-250); Globulin 3.7 g/dL (2.2-4.2); Glucose 106 mg/dL (70-99); Magnesium 2.1 mg/dL (1.5-2.2); Potassium 4.0 mmol/L (3.3-5.1)
[2025-05-31] MEDS: APIXABAN 5 MG TABLET PO (08:31)
[2025-05-31] MEDS: Lactobacillis Acidophilus 1 CAP PO (08:31)
[2025-05-31] MEDS: Aspirin E.C. 81 MG Tablet PO (08:31)
[2025-05-31] MEDS: Cholecalciferol (Vit D3) 125 MCG CAPSULE (5,000 UNITS) PO (08:31)
[2025-05-31] MEDS: Vitamin B Comp W-C Capsule 1 CAP PO (08:31)
[2025-05-31] MEDS: Metoprolol(XL)Succ 50 MG Tablet PO (08:31)
--- NOTE | 2025-05-31 13:22 | EKG12_ITS ---
Test Reason : CHANGE Blood Pressure : */* mmHG Vent. Rate : 98 BPM Atrial Rate : 249 BPM P-R Int : * ms QRS Dur : 92 ms QT Int : 358 ms P-R-T Axes : 255 62 65 degrees QTcB Int : 457 ms Atrial flutter with variable A-V block Abnormal ECG When compared with ECG of 30-May-2025 00:21, ST elevation now present in Inferior leads Nonspecific T wave abnormality, improved in Inferior leads Confirmed by ZAKIYA HARPER, JAMIE ([id number]), video tape editor SHONDA LEIGH ([id number]) on 06/01/2025 5:59:05 AM Referred By: Confirmed By: JAMIE SIGALA MD
--- NOTE | 2025-05-31 13:22 | EKG12_ITS ---
Test Reason : CHANGE Blood Pressure : */* mmHG Vent. Rate : 98 BPM Atrial Rate : 249 BPM P-R Int : * ms QRS Dur : 92 ms QT Int : 358 ms P-R-T Axes : 255 62 65 degrees QTcB Int : 457 ms Atrial flutter with variable A-V block Abnormal ECG When compared with ECG of 30-May-2025 00:21, ST elevation now present in Inferior leads Nonspecific T wave abnormality, improved in Inferior leads Confirmed by ZAKIYA HARPER, JAMIE ([id number]), editor dictionary SHONDA LEIGH ([id number]) on 06/01/2025 5:59:05 AM Referred By: Confirmed By: JAMIE SIGALA MD
--- NOTE | 2025-05-31 15:36 | DS.PCM_ITS ---
Providers Date of Admission: 05/30/25 Primary Care Physician: Dr. José Miguel Newell MD Consultations 05/30/25 03:07 Consult: Cardiology Routine Consulting Provider: [facility] Reason for Consult: New-onset Atrial Flutter; with RVR. EMERGENT Consult: No MD Notified: Yes Date Notified: 05/30/25 Time Notified: 06:00 Method of Notification: Text Method of Consult:: In-Person Reason For Visit: NEW ONSET ATRIAL FLUTTER WITH RVR Diagnosis Discharge Diagnosis (1) Fibrosing mediastinitis: Status: Chronic Code(s): J98.51 - Mediastinitis (2) Status post double vessel coronary artery bypass: Status: Resolved Code(s): Z95.1 - Presence of aortocoronary bypass graft (3) Atrial flutter with rapid ventricular response: Status: Acute Code(s): I48.92 - Unspecified atrial flutter (4) Aortic valve insufficiency: Status: Chronic Code(s): I35.1 - Nonrheumatic aortic (valve) insufficiency Qualifiers: Cardiac valve disease etiology: etiology unspecified Qualified Code(s): I35.1 - Nonrheumatic aortic (valve) insufficiency Medications at Discharge Home Medications aspirin 81 mg tablet,delayed release (Adult Aspirin Regimen) 81 mg PO QDAY 12/22/17 cholecalciferol (vitamin D3) 125 mcg (5,000 unit) capsule 5,000 unit PO QDAY 12/22/17 pravastatin 40 mg tablet 40 mg PO QHS 12/22/17 diphenhydramine HCl 25 mg capsule (Benadryl) 25 mg PO QHS PRN sleep 09/02/18 spacer #1 ea 03/06/20 Lactobacillus acidophilus (Acidophilus capsule) 100 mg PO DAILY 05/29/25 ipratropium bromide 21 mcg (0.03 %) nasal spray intranasal 05/29/25 levocetirizine 5 mg tablet (24HR Allergy Relief) 5 mg PO DAILY 05/29/25 losartan 100 mg tablet 100 mg PO DAILY 05/29/25 magnesium 250 mg tablet 250 mg PO DAILY 05/29/25 montelukast 10 mg tablet 10 mg PO DAILY 05/29/25 vitamin B complex (Vitamins B Complex capsule) 1 cap PO DAILY 05/29/25 apixaban 5 mg tablet (Eliquis) 5 mg PO BID #60 tabs 05/31/25 diltiazem HCl 180 mg capsule,extended release 24 hr 180 mg PO Q12 #60 caps 05/31/25 metoprolol succinate 50 mg tablet,extended release 24 hr 100 mg (2 x 50 mg) PO DAILY #120 tabs 05/31/25 Hospital Course Operations None Procedures 2-D Echocardiogram and - (CTA chest) Summary of Care Provided Minutes Spent on Discharge: 38 Hospital Course: Mrs. Neives is a 69-year-old female who presented to the emergency department at [facility] on 05/30/2025 early in the morning with heart racing and palpitations. She was found to be in new onset atrial flutter. She has a history of CABG x 2 in 2000 along with a TAVR and history of fibrosing mediastinitis. She had pretty consistent workup up until 2019 and then seems like she may have been lost to follow-up with COVID. Her symptoms began about a day prior to presentation and they were abrupt in onset. She was sustaining tachycardia with heart rates in the 120 range. She was evaluated by her primary care physician and EKG revealed sinus tachycardia. She was instructed to take an extra dose of her metoprolol but this did not help so she was instructed to come to the emergency department. She had admitted to being extremely tired and breathless for about 6 weeks. She has no history of sleep apnea which she is aware of. She has had no fever or chills and denies any chest pain, nausea or vomiting. EKG in the emergency department was consistent with atrial flutter with RVR having rate about 120. She was started on diltiazem drip and admitted to the PCU. Echocardiogram was obtained and she was found to have a normal functioning bioprosthetic valve with a mildly enlarged left atrium, markedly large right atrium, mild MR no pericardial effusion, and mild to moderate TR TSH was within normal limits at 3.02. Her labs were overtly unremarkable. Vital signs were stable other than elevated blood pressure and tachycardia on presentation. Given her new onset atrial fibrillation, a CTA of her chest was performed to rule out PE. 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 She was maintained on a home beta-shivam initially at 50 mg while she was placed on the Cardizem drip and this did control her heart rate. I was able to transition her off the Cardizem drip to oral Cardizem and ultimately she ended up on extended release Cardizem 180 mg p.o. twice daily at the time of discharge. Her heart rates were still a little bit higher than I would like to see them so we did increase her beta-shivam from 50 to 100 mg daily at which time we achieved heart rate control and stable blood pressure. She is now on Cardizem 180 p.o. twice daily and metoprolol 100 mg daily. I do wonder if her mediastinal fibrosis has worsened some causing her atrial flutter. She does have dilated atria bilaterally with the right being greater than the left. We avoided amiodarone due to her fibrosis and younger age. She has follow-up with Dr. Gautam Finley on 06/09/2025. She was started on Eliquis. We did discuss the risk and benefits of being anticoagulated in the setting of atrial flutter and atrial fibrillation with regards to stroke prevention. Patient voiced understanding. Prescriptions for metoprolol, Eliquis, and Cardizem were sent to her local pharmacy prior to discharge. No other medication changes were made and she was able to be discharged home in stable condition on 05/31/2025. As noted she has follow-up with cardiology and will also follow-up with pulmonary medicine to see if we need to pursue her mediastinal fibrosis any further as well as her primary care physician as needed. Of note we do suspect she may have a component of MADDY and recommends outpatient polysomnography. This was discussed with the patient and she said she would pursue this. I discussed with her she could either follow-up with her primary care physician or pulmonary medicine patient follows up there. 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 Suspected MADDY CAD status post CABG Aortic valve insufficiency status post TAVR Essential hypertension Hyperlipidemia History of asthma Allergic rhinitis History of basal cell carcinoma left lower extremity status post Mohs procedure Osteoarthritis status post total knee arthroplasty Morbid obesity Physical Exam Const alert, oriented x3, no apparent distress, no limitations and well nourished; Negative for average body habitus Constitutional Narrative: Morbidly obese, white female, older, sitting up in bed, appears comfortable, nontoxic, appears younger than stated age General Appearance: cooperative, comfortable, well kempt and well developed Exam Limitations: no limitations Nutritional Appearance: morbidly obese HEENT normocephalic, head/scalp atraumatic, hearing grossly normal bilaterally and moist oral mucous membranes HEENT Narrative: Mallampati 3, no thrush Eyes conjunctivae normal Eyes Narrative: No scleral icterus Neck supple Neck Narrative: Neck is short thick, trachea midline Resp normal respiratory effort, no retractions, no use of accessory muscles and clear to auscultation bilaterally Auscultation: Negative for rales, rhonchi or wheezes Cardio regular rate, S1 normal heart sound, S2 normal heart sound, no murmurs, no rub, no gallops and no clicks Cardio Narrative: Irregular irregular rhythm-now rate controlled GI normal to inspection, nondistended, normoactive bowel sounds, soft to palpation and non-tender Extremity no clubbing, cyanosis or edema Extremity Narrative: 2+ pedal and radial pulses Skin no wounds, skin turgor normal and no jaundice Neuro oriented x3, moves all extremities and no focal motor deficits Speech: speech normal Psych affect normal Psych Narrative: Extremely pleasant, interacts appropriately Weight / BMI Weight Weight: 123.9 kg Body Mass Index (BMI) 43.4 ABG / Lab / Microbiology Data 05/31/25 06:05 05/31/25 06:05 Laboratory: Laboratory Results - last 24 hr 05/31/25 06:05: WBC 7.7, RBC 4.21, Hgb 12.1, Hct 37.5, MCV 89.1, MCH 28.7, MCHC 32.3, RDW Std Deviation 49.7 H, RDW Coeff of Mark 15.3 H, Plt Count 228, MPV 11.4, Immature Gran % (Auto) 0.500, Neut % (Auto) 60.4, Lymph % (Auto) 28.5, Phelps % (Auto) 6.8, Eos % (Auto) 3.3, Baso % (Auto) 0.5, Absolute Neuts (auto) 4.7, Absolute Lymphs (auto) 2.19, Nucleated RBC % 0, Sodium 139, Potassium 4.0, Chloride 106, Carbon Dioxide 22.2, Anion Gap 12, BUN 17, Creatinine 0.83, Estim Creat Clear Calc 84.77, Est GFR (MDRD) Non-Af 76, BUN/Creatinine Ratio 20.2 H, G lucose 106 H, Calcium 9.0, Phosphorus 3.7, Magnesium 2.1, Total Bilirubin 0.77, AST 31, ALT 23, Alkaline Phosphatase 118 H, Total Protein 7.3, Albumin 3.6, Globulin 3.7, Albumin/Globulin Ratio 1.0 Radiography Diagnostic Testing: Radiology Impression Echocardiogram 05/30/25 02:36 Interpretation Summary Normal function of aortic valve bioprosthesis/TAVR Normal aortic valve bioprosthesis function Mildly enlarged left atrium Moderately enlarged right atrium Mild MR No pericardial effusion Mild to moderate TR Contrast echo used Definity. LV inflow/mitral inflow showed only E wave with loss of the atrial contractility patient is in atrial fibrillation No previous echo to compare Ordering Physician: Nestor Silva Performed By: Martin Lin RCS D/C Instructions Discharge Diet: Low fat / Low cholesterol Discharge Activity: Return to Normal Activity Return to work on: 06/01/25 DC O2, CPAP, BIPAP Needs Home O2 Discharge instructions: No DC home with Oxygen: No Meaningful Use Info Meaningful Use Meaningful Use Diagnoses (Choose all that apply): None applicable Ischemic Stroke Statin Dosing Therapy Reference: STATIN DOSE THERAPY REFERENCE: * Patients > 75 years receive moderate or high dose statin therapy. * Patients 75 years or YOUNGER should receive HIGH intensity statin dose unless contraindicated. You will be required to document reason for non-treatment if statin daily dose does not meet guidelines. HIGH DOSE STATIN THERAPY DAILY Atorvastatin > than or = to 40 mg Rosuvastatin > than or = to 20 mg Amlodipine + Atorvastatin > than or = to 2.5/40 mg Ezetimibe + Simvastatin 10/80 mg Simvastatin 80mg Discharge Plan Admission Admit Date/Time: 05/30/25 02:29 Primary Reason for Your Visit: Palpitations Attending Provider: Shagufta Garcia Primary Care Provider: José Miguel Newell Consulting Providers: Nestor Silva; Addy Valencia; Marcin Cason; Arun Vogel; Francesco Partida; Jesus Tam; Francisco Cox; Dianne Perez; Gautam Finley; Gen Ruiz; Maverick Velasquez; Aníbal Witt; Ministerio Finch NP; Alena Silver PA; David Brooks Instructions Additional Instructions / Restrictions: 1. Please discussed obtaining a polysomnography or a sleep study with your primary care physician or Dr. Danielle as we suspect he may have a component of sleep apnea and this could contribute to your atrial flutter. I do not think this is the only reason you have a flutter but it could contribute. Discharge Orders/Prescriptions Prescriptions: New Eliquis 5 mg Tablet 5 mg PO BID Qty: 60 1RF diltiazem HCl 180 mg Capsule,Extended Release 24hr 180 mg PO Q12 Qty: 60 1RF metoprolol succinate 50 mg Tablet Extended Release 24 Hr 100 mg PO DAILY Qty: 120 1RF Continued pravastatin 40 mg tablet 40 mg PO QHS aspirin [Adult Aspirin Regimen] 81 mg tablet,delayed release (DR/EC) 81 mg PO QDAY cholecalciferol (vitamin D3) 5,000 unit capsule 5,000 unit PO QDAY diphenhydramine HCl [Benadryl] 25 mg capsule 25 mg PO QHS PRN (Reason: sleep) montelukast 10 mg tablet 10 mg PO DAILY losartan 100 mg tablet 100 mg PO DAILY ipratropium bromide 21 mcg (0.03 %) spray,non-aerosol INTRANASAL Patient Comments: 1-2 [place] each nostril before bedtime nightly and every 6 hours as needed inday due to cough vitamin B complex [Vitamins B Complex] Capsule 1 cap PO DAILY Acidophilus Capsule 100 mg PO DAILY levocetirizine [24HR Allergy Relief] 5 mg tablet 5 mg PO DAILY magnesium 250 mg tablet 250 mg PO DAILY (DME) spacer See Rx Instructions .ROUTE .MEDSUPPLY Qty: 1 0RF Rx Instructions: As directed Discontinued metoprolol succinate 50 mg tablet extended release 24 hr 50 mg PO DAILY Referrals / Follow Up: Jeff Danielle DO [Med Staff - Active Staff] - 06/28/25 9:45 am José Miguel Newell MD [Primary Care Provider] - See Referral Note (As needed) Gautam Finley MD [Med Staff - Active Staff] - 06/09/25 9:30 am (appointment with Alena Silver N.P.) Disposition Disposition (needs filled in before D/C Order can be placed): Home, Self Care Charges/Coding Visit Charges Inpatient E&M: 21959 Disch Hosp >30min
--- NOTE | 2025-05-31 16:14 | CASEMGMT ---
Patient has order for discharge. Patient is discharging on Eliquis, JERRY CM called [facility], copay is $410. RN CM in to discuss needs at discharge. RN CM updated patient regarding Eliquis copay and provided 30 free trial card. Patient denies needs or help at discharge. Patient had no further questions or concerns.
== END 2025-05-31 17:25 | disposition home or self-care (01) | DRG 308 ==
LOC: ED 05-30 02:36 → PCU 05-30 05:03
PROVIDERS: Admitting Provider Internal Medicine; Emergency Provider Emergency Medicine; PCP Family Medicine; Visit Provider Internal Medicine
DX: I48.92 Unspecified atrial flutter (principal); J98.59 Other diseases of mediastinum, not elsewhere classified; Z68.41 Body mass index [BMI] 40.0-44.9, adult; I28.8 Other diseases of pulmonary vessels; Z95.1 Presence of aortocoronary bypass graft; I10 Essential (primary) hypertension; J45.909 Unspecified asthma, uncomplicated; Z95.2 Presence of prosthetic heart valve; I35.1 Nonrheumatic aortic (valve) insufficiency; I25.10 Atherosclerotic heart disease of native coronary artery without angina pectoris; G47.33 Obstructive sleep apnea (adult) (pediatric); E78.5 Hyperlipidemia, unspecified; I44.1 Atrioventricular block, second degree; I48.91 Unspecified atrial fibrillation; E66.813 Obesity, class 3; Z96.659 Presence of unspecified artificial knee joint; Z79.01 Long term (current) use of anticoagulants; Z79.82 Long term (current) use of aspirin; Z79.899 Other long term (current) drug therapy; Z85.828 Personal history of other malignant neoplasm of skin
CPT/HCPCS: 36415; 71275; 80048; 80053; 80061; 83036; 83735; 84100; 84443; 84484; 85025; 93005; 93306; 94668; 94762; 99284; Q9957; Q9967; A4216

== ENCOUNTER → 2025-09-19 | Outpatient (CLI) | payer MEDICARE, OTHER, SELFPAY ==
--- OUTSIDE RECORDS SUMMARY | 2025-09-19 19:30 | XMS RPT_ITS | CCD ---
Author Organization [facility] CliniSyor Care Team Providers Care Defense Attorney Name Role Phone Nicol Ibanez Unavailable Unavailable Jass Pepe Unavailable [phone] Blaine Silveira Unavailable Unavailable Blaine Silveira Unavailable Unavailable Nicol Ibanez Primary Care Provider Jass Pepe Unavailable Nicol Ibanez Primary Care Provider Jass Pepe Unavailable Nicol Ibanez MD Primary Care Provider [phone] Jass Pepe MD Unavailable Nicol Ibanez MD Primary Care Provider [phone] Jass Pepe MD Unavailable Fanning, Robert Lynne [...] Maldonado Unavailable NICOL IBANEZ Primary Care Unavailable [facility] Primary Care Unavailable AMEZCUA, JAVI BLOUNTE Referring Unavailable NEWELL, KIRILL A Primary Care Unavailable AMEZCUA, JAVI BLOUNTE Referring Unavailable NEWELL, KIRILL A Primary Care Unavailable AMEZCUA, JAVI ANGELICA Referring Unavailable NEWELL, KIRILL A Primary Care Unavailable AMEZCUA, JAVI ANGELICA Referring Unavailable NEWELL, KIRILL A Primary Care Unavailable AMEZCUA, JAVI ANGELICA Referring Unavailable NEWELL, KIRILL A Primary Care Unavailable AMEZCUA, JAVI BLOUNTE Referring Unavailable NEWELL, KIRILL A Primary Care Unavailable AMEZCUA, JAVI BLOUNTE Referring Unavailable NEWELL, KIRILL A Primary Care Unavailable AMEZCUA, JAVI ANGELICA Referring Unavailable NEWELL, KIRILL A Primary Care Unavailable AMEZCUA, JAVI BLOUNTE Referring Unavailable NEWELL, KIRILL A Primary Care Unavailable AMEZCUA, JAVI BLOUNTE Referring Unavailable NEWELL, KIRILL A Primary Care Unavailable AMEZCUA, JAVI ANGELICA Referring Unavailable NEWELL, KIRILL A Primary Care Unavailable AMEZCUA, JAVI BLOUNTE Referring Unavailable NEWELL, KIRILL A Primary Care Unavailable MARCELLE, NICOL OSBORN Primary Care Unavailable JASS PEPE Referring Unavailab le AFSHIN, JASS MALDONADO Admitting Unavailab le AFSHIN, JASS MALDONADO Referring Unavailab le TOMNICOL ROCHE Primary Care Unavailable SHERLYN VILLAVICENCIO Attending Unavailable GABRIEL TOVAR Attending Unavailable AFSHIN, JASS MALDONADO Admitting Unavailab le AFSHIN, JASS MALDONADO Referring Unavailab le NICOL IBANEZ Primary Care Unavailable BATOOL KAMARA Attending Unavailable JASS PEPE Admitting Unavailab le AFSHIN, JASS MALDONADO Referring Unavailab le TOMNICOL ROCHE Primary Care Unavailable GABRIEL TOVAR Attending Unavailable JASS PEPE Admitting Unavailab le AFSHIN, JASS MALDONADO Referring Unavailab le TOMNICOL ROCHE Primary Care Unavailable JASS PEPE Admitting Unavailab le AFSHIN, JASS MALDONADO Referring Unavailab le TOMCHAK, NICOL OSBORN Primary Care Unavailable SOFÍA, FLORES Attending Unavailable AFSHIN, JASS MALDONADO Admitting Unavailab le AFSHIN, JASS MALDONADO Referring Unavailab le TOMCHAK, NICOL OSBORN Primary Care Unavailable SOFÍA, FLORES Attending Unavailable AFSHIN, JASS MALDOANDO Attending Unavailab le AFSHIN, JASS MALDONADO Admitting Unavailab le TOMCHAK, NICOL OSBORN Primary Care Unavailable AFSHIN, JASS MALDONADO Referring Unavailab le AFSHIN, JASS MALDONADO Admitting Unavailab le AFSHIN, JASS MALDONADO Referring Unavailab le TOMCHAK, NICOL OSBORN Primary Care Unavailable SOFÍA, FLORES Attending Unavailable AFSHIN, JASS MALDONADO Referring Unavailab le TOVAR, GABRIEL Attending Unavailable MARCELLE, NICOL OSBORN Primary Care Unavailable AFSHIN, JASS MALDONADO Admitting Unavailab le TOVAR, GABRIEL Attending Unavailable AFSHIN, JASS MALDONADO Referring Unavailab le AFSHIN, JASS MALDONADO Admitting Unavailab le TOMCHAK, NICOL OSBORN Primary Care Unavailable BATOOL KAMARA Attending Unavailable AFSHIN, JASS MALDONADO Referring Unavailab le AFSHIN, JASS MALDONADO Admitting Unavailab le TOMCHAK, NICOL OSBORN Primary Care Unavailable AFSHIN, JASS MALDONADO Admitting Unavailab le TOMCHAK, NICOL OSBORN Primary Care Unavailable AFSHIN, JASS MALDONADO Referring Unavailab le AFSHIN, JASS MALDONADO Attending Unavailab le TOMCHAK, NICOL OSBORN Primary Care Unavailable AFSHIN, JASS MALDONADO Referring Unavailab le TOVAR, GABRIEL Attending Unavailable AFSHIN, JASS MALDONADO Admitting Unavailab le AFSHIN, JASS MALDONADO Referring Unavailab le TOMCHAK, NICOL OSBORN Primary Care Unavailable AFSHIN, JASS MALDONADO Referring Unavailab le STILLBERGERBATOOL Attending Unavailable MARCELLE, NICOL OSBORN Primary Care Unavailable AFSHIN, JASS MALDONADO Admitting Unavailab maty Newell MD, Dr. Valdez Primary Care Provider [facility], Dr. Alberto Emergency Provider [phone] [facility], Dr. Baez Admit Provider Unavail able [facility], Dr. Baez Attending Provider Thomas Newell MD, Dr. Valdez Primary Care Provider [facility], Dr. Alberto Emergency Provider [facility], Dr. Baez Admit Provider Unavail able Silva DO, Dr. Baez Other Provider Unavail able Dr. Shagufta Garcia DO Attending Provider Annie HARPER, Dr. Daly Other Provider Unavailable Yoav HARPER, Dr. Burch Other Provider Jaspreet HARPER, Dr. Dias Other Provider Jaquan HARPER, Dr. Maya Other Provider Anel HARPER, Dr. Lee Other Provider Unavailable Kenny HARPER, Dr. Singh Other Provider Chris HARPER, Dr. Dean Other Provider Malia HARPER, Dr. Florez Other Provider Sara HARPER, Dr. Blevins Other Provider Eva HARPER, Dr. Temple Other Provider Eduar HARPER, Dr. Spangler Other Provider [facility] DIRECTOR BUSINESS DEVELOPMENT-C, Irena Other Provider Alena Mariano Other Provider David Rush Other Provider Chris HARPER, Dr. eDan Attending Provider Jose RODRIGUEZ, Dr. Eagle Other Provider Jass Pepe MD Unavailable REMY SEGURA Attending Unavaila REMY Patel Admitting Unavaila NICOL Vivas Primary Care Unavailable NICOL IBANEZ Primary Care Unavailable REMY SEGURA Referring Unavaila REMY Patel Attending Unavaila andres Cox MD, Dr. Singh Attending Provider [phone] Kenny HARPER, Dr. Singh Referring Provider Dr. Kirill Newell MD Attending Provider Reece HARPER, Dr. Valdez Referring Provider Dr. Jeff Danielle DO Attending Provider Kirill Newell MD Primary Care Provider BRENDAN MACIEL Admitting Unavailable BRENDAN MACIEL Attending Unavailable KIRILL NEWELL Primary Care Unavailable NICOL IBANEZ Primary Care Unavailable BLAINE SILVEIRA Admitting Unavailable BLAINE SILVEIRA Attending Unavailable NICOL IBANEZ Primary Care Unavailable BLAINE SILVEIRA Attending Unavailable Newell, Kirill Primary Care Unavailable Kenny, Pony Attending Unavailable Kenny, Francisco Referring Unavailable Newell, Kirill Primary Care Unavailable Newell, Kirill Referring Unavailable Jeff Danielle Attending Unavailable Newell, Kirill Referring Unavailable Newell, Kirill Attending Unavailable Newell, Kirill Primary Care Unavailable Newell, Kirill Primary Care Unavailable Newell, Kirill Referring Unavailable Reece, Kirill Attending Unavailable Shagufta Garcia Attending Unavailable Nicol Silva Consulting Unavailable Nicol Silva Admitting Unavailable Newell, Kirill Primary Care Unavailable Amro, Ahmed Consulting Unavailable Mostafa, Marcin Consulting Unavailable Jaspreet, Arun Consulting Unavailable Partida Francesco Consulting Unavailable Anel, Jesus Consulting Unavailable Kenny, Pony Consulting Unavailable Belal, Farouk Consulting Unavailable Lindsey Finley Consulting Unavailable Nagajothi, Nagapradee Consulting Unavailabl e Satti, Maverick Consulting Unavailable [place], Aníbal Consulting Unavailable Stef CABALLERO, Irena Aguirre Consulting Unavailable Alena Mariano Consulting Unavail able David Brooks Consulting Unavailable Belal, Farouk Attending Unavailable Newell, Kirill Primary Care Unavailable Nicol Silva Consulting Unavailable Nicol Silva Attending Unavailable Nicol Silva Admitting Unavailable Newell, Kirill Primary Care Unavailable Shagufta Garcia Attending Unavailable Amro, Ahmed Consulting Unavailable Mostafa, Marcin Consulting Unavailable Jaspreet, Arun Consulting Unavailable Partida, Francesco Consulting Unavailable Anel, Jesus Consulting Unavailable Kenny, Pony Consulting Unavailable Belal, Farouk Consulting Unavailable Lindsey Finley Consulting Unavailable Nagajothi, Nagapradee Consulting Unavailabl e Satti, Maverick Consulting Unavailable [place], Aníbal Consulting Unavailable Roof DIRECTOR BUSINESS DEVELOPMENT, Irena H Consulting Unavailable Alena Mariano M Consulting Unavail able Todd David Consulting Unavailable Jose, Shagufta Consulting Unavailable Allergies Allergy Classification Reported Allergen(s) Allergy Type Date of Onset Reaction(s) Facility NSAIDs (4 sources) Naproxen Drug Allergy 5 [facility] Quinolones (antibiotic) (4 sources) levoFLOXacin Drug Allergy 5 [facility] (20 sources) levoFLOXacin; Translations: [LEVOFLOXACIN] Propensity to adverse reactions to drug 5 [facility] Work Phone: Comment on above: bilat lower ext. (20 sources) naproxen; Translations: [NAPROXEN] Propensity to adverse reactions to drug 5 [facility] Work Phone: (1 source) ALLERGIES NOT ON FILE; Translations: [ALLERGIES NOT ON FILE] Propensity to adverse reactions (disorder) [facility] 2 Repository (1 source) levoFLOXacin Drug Allergy 5 [facility] Repository (1 source) Naproxen Drug Allergy 5 [facility] Repository Medications Current Medications Medication Drug Class(es) Dates Sig (Normalized) Sig (Original) amLODIPine 5 mg oral tablet (20 sources) Dihydropyridine Calcium Channel Shivam Start: 08-23-2025 End: 08-23-2026 take 1 tablet by mouth once daily amLODIPine (NORVASC) 5 MG tablet Take 1 (one) tablet (5 mg total) by mouth daily . 30 tablet 11 08/23/2025 08/23/2026 Active Start: 11-17-2017 End: 05-29-2025 take 1 tablet by mouth once daily Amlodipine 5 mg tablet Discontinued 5 mg PO daily December 22, 2017 1:00am May 29, 2025 11:40pm apixaban 5 mg oral tablet (11 sources) Factor Xa Inhibitor Start: 05-31-2025 End: 07-04-2025 take 1 tablet by mouth twice daily Eliquis 5 mg Tab Take 1 (one) tablet (5 mg total) by mouth 2 (two) times a day . 60 tablet 2 07/04/2025 Active aspirin 81 mg chewable tablet (20 sources) Nonsteroidal Anti-inflammatory Drug Start: 02-01-2024 aspirin 81 mg chewable tablet 02/01/2024 Active Start: 01-26-2024 End: 02-25-2024 take 1 tablet [...] Start: 12-22-2017 take 1 tablet by abel once daily Aspirin (Adult Aspirin Regimen) 81 [...] 29, 2018 1:00am March 16, 2018 9:23am HRXFKVD-JCRDACZDP-MRVY ORAL (20 sources) take 1 tablet by mouth once daily [id number]-ZLCNHZLAH-CLTQ ORAL Take 1 tablet by mouth daily . Suspended take 1 tablet by mouth once umm y HXRYMMV-ZTQHHOBYM-ZLPJ ORAL Take 1 tablet by mouth daily . Active take 1 tablet by mouth once umm y OYNPLMY-BSDIWYFGP-OOWJ ORAL Take 1 tablet by mouth daily . 0 take 1 tablet by mouth once umm y GHZERKB-IQLZFFPPH-ITUP ORAL Take 1 tablet by mouth daily . 0 Suspended take 1 tablet by mouth once umm y CAKNWQF-PZEEOLDVW-HOUT ORAL Take 1 tablet by mouth daily . 0 Active take 1 tablet by mouth twice erinn ly PWCGJYM-CVAOUFICB-PUUR ORAL Take 1 tablet by mouth 2 [...] 1 (one) capsule by mouth daily . Active take 1 tablet by mouth once [...] . 30 tablet 2 01/22/2022 04/22/2022 Active doxycycline hyclate 100 mg oral tablet (2 sources) Tetracycline-class Drug Start: 01-11-2024 End: 01-18-2024 take 1 tablet by mouth twice daily doxycycline hyclate (VIBRA-TABS) 100 MG tablet Indications: MSSA (methicillin susceptible Staphylococcus aureus) Take 1 (one) tablet (100 mg total) by mouth 2 (two) times a day for 7 days . 14 tablet 0 01/11/2024 01/18/2024 Active furosemide 20 mg oral tablet (10 sources) Loop Diuretic Start: 06-06-2025 End: 06-06-2026 take 1 tablet by mouth once daily furosemide (Lasix) 20 MG tablet Indications: Fibrosing mediastinitis Take 1 (one) tablet (20 mg total) by mouth daily . 30 tablet 11 06/06/2025 06/06/2026 Active ipratropium bromide 0.021 mg/actuat metered dose nasal spray (3 sources) Anticholinergic Start: 05-29-[address] [facility] 21 mcg (0.03 %) spray,non-aerosol Active INTRANASAL May 29, 2025 12:00am lactobacillus acidophilus 100 mg oral capsule (3 sources) Start: 05-29-2025 take 1 capsule by mouth once daily Lactobacillus Acidophilus (Acidophilus) capsule Active 100 mg PO DAILY May 29, 2025 12:00am lactobacillus combo no.11 (Probiotic) 15 billion cell CpSP (20 sources) lactobacillus co mbo no.11 (Probiotic) 15 billion cell CpSP Take by mouth daily . Suspended lactobacillus co mbo no.11 (Probiotic) 15 billion cell CpSP Take by mouth daily . Active lactobacillus co mbo no.11 (Probiotic) 15 billion cell CpSP Take by mouth daily . 0 lactobacillus co mbo no.11 (Probiotic) 15 billion cell CpSP Take by mouth daily . 0 Suspended lactobacillus co mbo no.11 (Probiotic) 15 billion cell CpSP Take by mouth daily . 0 Active Jgz70-Tggpksucs-Dqry-Tiuv-Qu os (Calming Day) 350-250 mg/7.8 gram powder (1 source) Start: 08-08-2025 Nbf05-Jzvmdjbcj-Mrds-Micu-Xi os (Calming Day) 350-250 mg/7.8 gram powder Active g PO August 08, 2025 12:00am magnesium gluconate 500 mg o ral tablet (1 source) take 1 tablet by mouth once daily magnesium gluconate (MAGONATE) 27.5 mg magne- sium (500 mg) tablet Take 1 (one) tablet (500 mg total) by mouth once daily . Active 24 hr metoprolol succinate 5 0 mg extended release oral tablet (20 sources) beta-A [facility] Carmenzae r Start: 05-31-2025 Metoprolol Succinate 50 mg Tablet Extended Release 24 Hr Active 100 mg PO DAILY 120 1 May 31, 2025 12:00am Start: 06-10-2019 End: 08-02-2025 take 1 tablet by mouth once daily metoprolol succinate (TOPROL-XL) 50 MG 24 hr tablet Take 1 (one) tablet (50 mg total) by mouth daily . 30 tablet 07/03/2025 Active Start: 10-27-2018 take 1 tablet by [...] Discontinued 10 mg PO AT BEDTIME 30 3 June 11, 2018 9:28am September 02, 2018 10:49am mupirocin 0.02 mg/mg topical ointment (2 sources) RNA Synthetase Inhibitor Antibacterial Start: 01-11-2024 End: 01-18-2024 mupirocin (BACTROBAN) 2 % ointment Indications: MSSA (methicillin susceptible Staphylococcus aureus) Apply topically 2 (two) times a day for 7 days . 22 g 0 01/11/2024 01/18/2024 Active nitroglycerin 0.4 mg sublingual tablet (20 sources) Nitrate Vasodilator Start: 06-10-2021 nitroGLYCE RIN (NITROSTAT) 0.[address] 1 (one) tablet (0.4 mg total) under the tongue every 5 (five) minutes as needed for chest pain , if no relief after 3 doses call 911 . 25 tablet 4 06/11/2021 Active oxyCODONE hydrochloride 5 mg oral tablet [...] dose, Pre-Procedure DO NOT CRUSH OR CHEW. spacer (10 sources) Start: 03-06-2020 spacer Active 0 .ROUTE .MEDSUPPLY 1 0 March 06, 2020 12:00am As directed Start: 03-06-2020 spacer Active 0 .ROUTE .MEDSUPPLY 1 March 05, 2020 11:00pm As directed Start: 03-06-2020 spacer Active 0 .ROUTE .MEDSUPPLY 1 March 06, 2020 12:00am As directed telmisartan 80 mg oral tablet (3 sources) Angiotensin 2 Receptor Shivam Start: 08-08-2025 take 1 tablet by mouth once daily Telmisartan 80 mg tablet Active 80 mg PO daily August 08, 2025 12:00am Vitamin B Complex (20 sources) take 1 tablet by mouth once daily b complex vitamins tablet Take 1 (one) tablet by mouth daily . Suspended take 1 tablet by mouth once umm y b complex vitamins tablet Take 1 (one) tablet by mouth daily . Active take 1 tablet by mouth once umm y b complex vitamins tablet Take 1 (one) [...] Vitamin B Complex (Vitamins B Complex) capsule (3 sources) Start: 05-29-2025 Vitamin B Comp chris (Vitamins [...] 01/21/22 at 0815, For 1 dose, Pre-Procedure End: 06-06-2025 take 1 tablet by mouth twice daily acetaminophen (TYLENOL) 500 MG tablet Take 1 (one) tablet (500 mg total) by mouth 2 (two) times a day . 06/06/2025 Discontinued [id number] actuat albuterol 0.09 mg/actuat metered dose [...] needed for shortness of breath or wheezing 1 December 22, 2018 11:09am May 29, 2025 11:40pm [...] propionate 0.05 mg/actuat metered dose nasal spray (15 sources) Corticosteroid, Histamine-1 Receptor Antagonist Start: 07-29-2018 End: 12-06-2019 Azelastine-Fluticasone (Dymista) 137-50 mcg/spray spray,non-aerosol Discontinued 1 NMA [...] route twice daily azelastine-fluticasone (DYMISTA) 137-50 mcg/spray [place] Instill 1 spray into each nostril 2 [...] Discontinued 2 NMA INHALATION Q12H 10.6 6 June 27, 2019 11:58am December 06, 2019 [...] spasms . 30 tablet 0 01/26/2024 02/05/2024 24 hr dilTIAZem hydrochloride 180 mg extended release oral capsule (7 sources) Calcium Channel Shivam Start: 05-31-2025 End: 07-03-2025 take 1 capsule by mouth twice daily diltiazem (CARDIZEM CD) 180 MG 24 hr capsule Take 1 (one) capsule (180 mg total) by mouth 2 (two) times a day . 05/31/2025 07/03/2025 Discontinued (Stop Taking at Discharge) Start: 05-31-2025 End: 08-08-2025 take 1 capsule by mouth every twelve hours Diltiazem Hcl 180 mg Capsule,Extended Release 24hr Discontinued 180 mg PO EVERY 12 HOURS 60 1 May 31, 2025 12:00am August 08, 2025 11:13am diphenhydrAMINE hydrochloride 25 mg oral capsule (20 sources) Histamine-1 Receptor Antagonist Start: 09-02-2018 End: 08-08-2025 take 1 capsule by mouth at bedtime as needed for sleep Diphenhydramine Hcl (Benadryl) 25 mg capsule Discontinued 25 mg PO AT BEDTIME as needed for sleep September 02, 2018 12:00am August 08, 2025 11:13am End: 06-06-2025 take 1 tablet by mouth once daily as needed for sleep diphenhydrAMINE (BENADRYL) 50 MG tablet Take 1 (one) tablet (50 mg total) by mouth nightly as needed for sleep . 06/06/2025 Discontinued take 1 tablet by abel th once daily for sleep diphenhydrAMINE (BENADRYL) 25 mg tablet Take 1 (one) tablet (25 mg total) by mouth nightly FOR SLEEP . 0 Active docusate sodium 50 mg / sennosides, jail 8.6 mg oral tablet (1 source) Start: 01-21-2022 End: 01-22-2022 take 1 tablet by mouth twice daily 1 tablet, Oral, 2 times daily, First dose on Thu01/21/22 at 2100, PACU to Post Procedure NOT for abdominal surgery patients. Hold for [...] Allergy Relief) 50 mcg/actuation spray,suspension Discontinued 1 NMA INTRANASAL daily December 22, 2017 1:00am December 22, 2017 11:44am Start: 12-22-2017 End: 09-02-2018 Fluticasone Propionate (Flon [...] / vilanterol 0.025 mg/actuat dry powder inhaler (10 sources) Corticosteroid, beta2-Adrenergic Agonist Start: 12-22-2017 End: [...] Thu01/21/22 at 1636, PACU to Post Procedure levocetirizine dihydrochloride 5 mg oral tablet (3 sources) Histamine-1 Receptor Antagonist Start: 05-29-2025 End: 08-08-2025 take 1 tablet by mouth once daily Levocetirizine (24hr Allergy Relief) 5 mg tablet Discontinued 5 mg PO DAILY May 29, 2025 12:00am August 08, 2025 11:13am loratadine 10 mg oral tablet (20 sources) End: 01-21-2023 take 1 tablet by mouth once daily as needed loratadine (CLARITIN) 10 mg tablet Take 10 mg by mouth daily as needed . 0 01/21/2023 Discontinued (Discontinued by another clinician) losartan potassium 100 mg oral tablet (20 sources) Angiotensin 2 Receptor Shivam Start: 05-29-2025 End: 08-23-2025 take 1 tablet by mouth once daily Losartan 100 mg tablet Discontinued 100 mg PO DAILY May 29, 2025 12:00am August 08, 2025 11:13am Start: 01-22-2022 End: 01-22-2022 take 100 mg by mouth once daily 100 mg, Oral, Nightly, First dose on Thu01/22/22 at 2100 take 1 tablet by mouth once umm y losartan (COZAAR) 50 MG tablet Take 50 mg by mouth nightly . 0 Active Magnesium (3 sources) Start: 05-29-2025 End: 08-08-2025 take 1 tablet by mouth once daily Magnesium 250 mg tablet Discontinued 250 mg PO DAILY May 29, 2025 12:00am August 08, 2025 11:14am Start: 05-29-2025 take 1 tablet by bael th once daily Magnesium 250 mg tablet Active 250 mg PO DAILY May 29, 2025 12:00am 50 ml magnesium sulfate 40 mg/ml injection (1 source) Start: 01-21-2022 End: 01-21-2022 magnesium sulfate 2 g in sterile water (SW) 50 mL IVPB naloxone (NARCAN) injection 0.1 mg (1 source) Start: 01-21-2022 End: 01-22-2022 naloxone (NARCAN) injection 0.1 mg nystatin [id number] unt/ml oral suspension (20 sources) Polyene Antifungal Start: 08-10-2018 End: 02-28-2019 take [id number] [IU] by mouth three times daily Nystatin 100,000 unit/mL suspension Discontinued [id number] U PO THREE TIMES A DAY 60 1 August 10, 2018 1:06pm February 28, 2019 2:14pm Candidal stomatitis omeprazole 20 mg delayed release oral capsule (19 sources) Proton Pump Inhibitor Start: 12-09-2016 End: 05-29-2025 take 1 capsule by mouth once daily Omeprazole 20 mg capsule,delayed release(DR/EC) Discontinued 20 mg PO daily December 22, 2017 1:00am May 29, 2025 11:40pm 2 ml ondansetron 2 mg/ml injection (1 source) Serotonin-3 Receptor Antagonist Start: 01-21-2022 End: 01-22-2022 take 4 mg intravenously every six hours as needed for nausea and vomiting 4 mg, Intravenous, Every 6 hours PRN, nausea, vomiting, Starting on Thu01/21/22 at 1636, PACU to Post Procedure pantoprazole 20 mg delayed release oral tablet (20 sources) Proton Pump Inhibitor Start: 01-27-2024 End: 06-06-2025 take 1 tablet by mouth once daily pantoprazole (PROTONIX) 20 MG tablet Take 1 (one) tablet (20 mg total) by mouth daily Start: 01/27/24. 30 tablet 01/27/2024 06/06/2025 Discontinued Start: 01-21-2022 End: 01-22-2022 take 40 mg [...] mg by mouth daily . 0 Active perflutren lipid microspheres (DEFINITY) 0.143 mg/mL solution 0-10 mL of mixture (1 source) Start: 01-21-2022 End: 01-22-2022 perflutren lipid microspheres (DEFINITY) 0.143 mg/mL solution 0-10 mL of mixture polyethylene glycol 3350 01346 mg powder for oral solution (10 sources) [...] MG tablet Indications: Coronary artery disease involving ig[place] coronary artery of [place] heart without angina pectoris Take 1 (one) tablet (40 mg total) by mouth nightly . 90 tablet 10/27/2018 Active predniSONE 10 mg oral tablet (20 [...] tablet Discontinued 60 mg PO daily 15 August 16, 2019 12:00am August 18, 2019 [...] 2018 9:27am administer with food or milk 10 ml propofol 10 mg/ml injection (1 source) General Anesthetic Start: 07-03-2025 End: 07-03-2025 Intravenous, As needed, Starting on Thu07/03/25 at 1038, Anesthesia Intra-op 1000 ml sodium chloride 9 mg/ml injection (6 sources) Start: 07-03-2025 End: 07-03-2025 take 50 mL intravenously every hour 50 mL/hr, Intravenous, Continuous, Starting on Thu07/03/25 at 1030 Start: 01-21-2022 End: 01-22-2022 1,000 mL, Intra-arterial, [...] End: 01-21-2022 sodium chloride 0.9% (NS) Tiotropium [facility] (10 sources) Anticholinergic Start: 12-22-2017 End: 12-22-2017 take 2.5 ug by inhalation once daily Tiotropium [facility] (Spiriva Respimat) 2.5 mcg/actuation mist Discontinued 2 NMA INHALATION daily December 22, 2017 1:00am December 22, 2017 11:44am Start: 12-22-2017 End: 12-22-2017 take 1 puff(s) by inhalation once daily Tiotropium [facility] (Spiriva Respimat) 2.5 mcg/actuation mist Discontinued 2 PUFF INHALATION daily December 22, 2017 12:00am December 22, 2017 10:44am Start: 12-22-2017 End: 12-22-2017 take 1 puff(s) by inhalation once daily Tiotropium [facility] (Spiriva Respimat) 2.5 mcg/actuation mist Discontinued 2 PUFF INHALATION daily December 22, 2017 1:00am December 22, 2017 11:44am valsartan 160 mg oral tablet (13 sources) Angiotensin 2 Receptor Shivam Start: 11-17-2017 End: 05-29-2025 take 1 tablet by mouth once daily Valsartan 160 mg tablet Discontinued 160 mg PO daily December 22, 2017 1:00am May 29, 2025 11:39pm Problems Active Problems Problem Classification Problem Date Documented Date Episodic/Chronic Abdominal hernia (10 sources) Unspecified abdominal hernia without obstruction or gangrene; Translations: [Hernia] 01-19-2018 Episodic Aortic; peripheral; and visceral artery aneurysms (20 sources) Ascending aorta dilatation; Translations: [Thoracic aortic ectasia] Onset: 04-04-2022 04-04-2022 Chronic Bacterial infection; unspecified site (1 source) Infection by methicillin sensitive Staphylococcus aureus; Translations: [Methicillin susceptible Staphylococcus aureus infection, unspecified site] 01-11-2024 Episodic Cardiac dysrhythmias (20 sources) Atrial flutter; Translations: [Unspecified atrial flutter] Onset: 06-06-2025 05-30-2025 Chronic Chronic ulcer of skin (20 sources) Chronic ulcer of skin; Translations: [Non-pressure chronic ulcer of skin of other sites with muscle involvement without evidence of necrosis] 04-16-2023 Chronic Coronary atherosclerosis and other heart disease (20 sources) 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[place] artery; Translations: [Atherosclerotic heart disease of [place] coronary artery without angina pectoris] Onset: 11-05-2015 04-21-2016 Chronic Disorders of lipid metabolism (20 sources) Mixed hyperlipidemia; Translations: [Mixed hyperlipidemia] Onset: 06-10-2021 Chronic E Codes: Fall (7 sources) Falling injury; Translations: [Unspecified fall, initial encounter] 06-25-2023 Episodic Essential hypertension (20 sources) Hypertensive disorder; Translations: [Essential (primary) hypertension] Onset: 01-21-2023 Chronic Genitourinary symptoms and ill-defined conditions (1 source) Abnormal urine; Translations: [Other abnormal findings in urine] Episodic Heart valve disorders (20 sources) Aortic valve regurgitation; Translations: [Nonrheumatic aortic (valve) insufficiency] Onset: 11-05-2015 01-06-2018 Chronic Heart valve disorders (10 sources) Heart murmur; Translations: [Cardiac murmur, unspecified] 01-19-2018 Episodic Open wounds of head; neck; and trunk (8 sources) Laceration - injury; Translations: [Laceration] 06-25-2023 Episodic Osteoarthritis (20 sources) Osteoarthritis of right knee joint; Translations: [Unilateral primary osteoarthritis, right knee] Onset: 09-25-2023 09-27-2023 Chronic Other aftercare (2 sources) Aftercare following joint replacement surgery; Translations: [Aftercare following joint replacement surgery] Onset: 01-27-2024 Chronic Other circulatory disease (1 source) Other specified symptoms and signs involving the circulatory and respiratory systems; Translations: [Other symptoms involving cardiovascular system] Episodic Other connective tissue disease (20 sources) History of total knee arthroplasty; Translations: [Presence of unspecified artificial knee joint] Onset: 02-15-2024 01-19-2018 Chronic Comment on above: 2014 2014x2 Other connective tissue disease (4 sources) Presence of right artificial knee joint; Translations: [Presence of right artificial knee joint] Onset: 01-27-2024 Chronic Other injuries and conditions due to external causes (8 sources) Injury of head; Translations: [Unspecified injury of head, initial encounter] 06-25-2023 Episodic Other lower respiratory disease (3 sources) Dyspnea; Translations: [Dyspnea, unspecified] Episodic Other lower respiratory disease (10 sources) Dyspnea on exertion; Translations: [Shortness of breath] 01-19-2018 Episodic Other lower respiratory disease (10 sources) Chronic cough; Translations: [Chronic cough] 12-22-2017 Episodic Other non-epithelial cancer of skin (20 sources) Basal cell carcinoma of lower extremity; Translations: [Basal cell carcinoma of skin of left lower limb, including hip] 04-16-2023 Episodic Other non-traumatic joint disorders (2 sources) Pain in right knee; Translations: [Pain in right knee] Onset: 09-29-2023 Episodic Other nutritional; endocrine; and metabolic disorders (13 sources) Body mass index 40+ - severely obese; Translations: [Body mass index (BMI) 40.0-44.9, adult] 06-08-2019 Chronic Other nutritional; endocrine; and metabolic disorders (13 sources) Body mass index (BMI) 40.0-44.9, adult; Translations: [Body Mass Index 40.0-44.9, adult] Onset: 06-07-2025 04-29-2023 Chronic Other screening for suspected conditions (not mental disorders or infectious disease) (2 sources) Coag./bleeding tests abnormal; Translations: [Abnormal coagulation profile] Episodic Other upper respiratory disease (10 sources) Allergic rhinitis; Translations: [Allergic rhinitis, unspecified] 07-29-2018 Chronic Residual codes; unclassified (3 sources) Obstructive sleep apnea syndrome; Translations: [Obstructive sleep apnea (adult) (pediatric)] 05-30-2025 Chronic Residual codes; unclassified (1 source) Obstructive sleep apnea (adult) (pediatric); Translations: [Obstructive sleep apnea (adult) (pediatric)] Onset: 06-07-2025 Chronic Unclassified (2 sources) Mediastinitis; Translations: [Fibrosing mediastinitis] Onset: 11-05-2015 04-21-2016 Unclassified (2 sources) As needed Unclassified (2 sources) appointment with Alena Silver N.P. Past or Other Problems Problem Classification Problem Date Documented Da te Episodic/Chronic Cardiac dysrhythmias (14 sources) Palpitations; Translations: [Palpitations] Onset: 06-07-2025 05-30-2025 Episodic Coronary atherosclerosis and other heart disease (1 source) Presence of aortocoronary bypass graft; Translations: [Presence of aortocoronary bypass graft] Onset: 06-07-2025 Episodic Other bone disease and musculoskeletal deformities (1 source) Other specified disorders of bone density and structure, unspecified site; Translations: [Other specified disorders of bone density and structure, unspecified site] Onset: 01-12-2025 Episodic Other hematologic conditions (20 sources) ESR raised; Translations: [Elevated erythrocyte sedimentation rate] Onset: 06-10-2021 Episodic Other lower respiratory disease (2 sources) Shortness of breath; Translations: [Shortness of breath] Onset: 02-19-2022 Episodic Other upper respiratory disease (20 sources) Sclerosing mediastinitis; Translations: [Mediastinitis] Onset: 11-05-2015 04-21-2016 Episodic Other upper respiratory disease (3 sources) Mediastinitis; Translations: [Mediastinitis] Onset: 02-01-2022 Episodic Unclassified (9 sources) Onset: 09-13-2023 09-13-2023 Results Test Name Value Interpretation Reference Range Facility Re-Evaluation - PT (1)on Re-Evaluation - PT (1) 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 [address] [place] [address] / REEVALUATION / MEDICARE RECERTIFICATION PHYSICAL THERAPY MR#: [id number] Acct: [id number] Name: VICKIE GONZALEZ Rep #: [id number] : 1955 69 From: Alber Umana PT, Cert. T, OCS Referring Dr.: Dr. Kirill Newell MD Status:REG RCR Insurance: MEDICARE PART A B MEDICARE SUPPLEMENT PLAN Re-Evaluation Intro: Dr. Kirill Newell MD, It has been my pleasure to treat VICKIE GONZALEZ over the last 9 visits for LEFT SHOULDER WEAKNESS , CORE WEAKNESS. Please see the progress note below for an update on the physical therapy plan of care! Subjective Subjective: Feeling better Able to reach in cupboard ,difficulty putting on coat Objective Objective/Function: Patient has been progressing with increasing strength and ROM For ADLS with OH activates difficulty lifting OH but can reaching cupboard and reaching back to put on coat thus will benefit from skilled PT with goals appropriate abd adjusted, POSTURE: mild forward posture rounded shoulders PALAPTION: long head bicep ,bicipital groove NEURO: denies paresthesia/tingling AROM: shoulder flexion 125 degrees ,abduction 130 degrees ,ER 90 degrees ,IR sacrum PROM: shoulder flexion 150 degrees ,abduction 150 degrees in scapular plane CAPSULAR HUMERAL JOINT: mild tight MMT:( peak force) infraspinatus 14,5,subscapularis 15.2 ,supraspinatus 12.8 deltoid 18.0 Plan Plan Plan: PT INTERVENTIONS ROM SHOULDER ,STRENGTHENING RTC/SCAPULAR STRENGTHENING ,MANUAL THERAPY PROM ,CORE STRENGTHENING AND MODALTIES PRN Balance/Gait/Functiona l tests Balance/Special Test Scores Quick DASH Score: 31.8175 Goals Goals Goal 1:: Patient to be I with HEP for left shoulder and core Goal Time Frame: 4-6 Weeks Goal Progress: Progressing Goal 2:: Patient to improve AROM shoulder flexion /abduction 140 degrees to reach in cupboard and IR L1 to put on coast Goal Time Frame: 4-6 Weeks Goal Progress: Progressing Goal 3:: Patient to peak force RTC /deltoid by 5-8# to improve function and OH activities(NEW GOAL) Goal Time Frame: 4-6 Weeks Goal Progress: Progressing Goal 4:: Patient to improve quick dash by 5 points to improve QOL and function Goal Time Frame: 4-6 Weeks Goal Progress: Progressing Goal 5:: Patient to demonstrate 60% improvement with less pain and improved function( NEW GOALS) Goal Time Frame: 4-6 Weeks Anticipated Interventions Anticipated Interventions Patient/Client Instruction: Educate patient on: Condition and Plan of Care For the Purpose of:: To decrease pain, To increase ROM, To improve muscle performance and motor function, To improve ability to perform ADL's, To increase tolerance to activity/condition/pos ition, To improve ability of physical actions for home/community/work/le isure, To improve health of tissue, To prevent re-injury and To improve tolerance to ADL's Therapeutic Exercise to Include: Strength training, Postural training, Flexibilty training, Passive ROM, Active ROM and Scapular Strength/Stabilization Comment: RTC For the Purpose of:: To decrease pain, To increase ROM, To improve muscle performance and motor function, To improve ability to perform ADL's, To increase tolerance to activity/condition/pos ition, To improve ability of physical actions for home/community/work/le isure, To improve health of tissue, To decrease soft tissue restriction, To increase flexibility/ROM, To reduce risk of recurrence and To improve tolerance to ADL's Manual Therapy Techniques to Include: Mobilization and Passive ROM Comment: G-H For the Purpose of:: To decrease pain, To increase ROM, To improve nutrient delivery to tissue and To increase oxygenation perfusion TENS: Yes Cryotherapy (ice pack, ice massage): Yes Thermo therapy (hot pack): Yes Ultrasound (thermal/non thermal): Yes For the Purpose of:: To decrease pain, To increase ROM, To improve nutrient delivery to tissue, To increase oxygenation perfusion, To improve health of tissue and To decrease soft tissue restriction Re-Evaluation Ending Re-evaluation ending: Please do not hesitate to contact me at [phone] by phone or if you have questions or concerns regarding this new plan of care! Sincerely, Alber Umana PT, Cert MDT, OCS 08/31/25 1231 CC: Dr. Kirill Newell MD JUAQUIN Signed For Medicare only, by signing this I certify the plan of care. Physicians Signature Date Normal [facility] ECG 12 leadon 08-23-2025 Atrial Rate [facility] [place] [facility] P-R Interval [facility] Q-T Interval [facility] Q-T Interval (corrected) [facility] QRS Duration [facility] QTC Calculation (Bezet) [facility] [place] [facility] T [place] [facility] Pulmonary Visit Reporton Pulmonary Visit Report [facility] [place] [address] [place] [address] OFFICE VISIT Date of Service: 08/08/25 MR#: [id number] Acct: [id number] Name: VICKIE GONZALEZ Rep #: [id number] : 1955 Provider: Dr. Jeff Danielle DO Age/Sex: 69/F Location: [facility].PMW Status: Signed Assessment and Plan Assessment and Plan (1) Fibrosing mediastinitis: Status: Chronic Plan: The patient was initially referred here in follow-up from her hospitalization in May 2025 which demonstrated findings of fibrosing mediastinitis on CT imaging. However, these findings have been present since 2000, when the patient underwent CABG. Her fibrosing mediastinitis was apparently confirmed via biopsy, according to the patient. At this particular time, given her lack of respiratory symptoms, I do not see any overt indication to proceed with any additional workup or intervention. If the patient were to become symptomatic in the future, she would require referral to a tertiary care facility for further evaluation. HPI HPI Comments Details: The patient is a 69-year-old female who presents to the clinic today in referral for the evaluation of fibrosing mediastinitis. If you recall, the patient was previously evaluated in our office in November 2019. At that time, the patient presented with a history of asthma along with seasonal allergic rhinitis. The patient is a lifelong non-smoker. However, she did admit to secondhand smoke exposure, having been to a smoker who previously quit. The patient does have a history of coronary artery bypass surgery in 2000, which was complicated by fibrosing mediastinitis, confirmed via biopsy. Pulmonary function testing completed in December 2017 revealed evidence of a mild restrictive ventilatory defect with a disproportionate reduction in diffusing capacity. A 6 minute walk test c ompleted in January 2018 revealed no significant exertional oxygen desaturation. However, there was evidence of exertional tachycardia. Contrasted chest CT also obtained in January 2018 revealed hyperinflation of the lung quan with evidence of prior CABG. There was no parenchymal or pleural abnormality identified. The patient was recently admitted to the hospital in May 2025 after presenting with heart palpitations. She was found to be in new onset atrial flutter. The patient was medically managed under the discretion of cardiology. CT imaging of the chest completed during her hospitalization again demonstrated findings of mediastinal fibrosis. Today, the patient reported the presence of a cough first thing in the morning. She does report occasional heartburn but denies any overt postnasal drip symptoms. She does not currently keep any animals as pets in her home environment. The patient is not currently prescribed an JAISON inhibitor. She denies any significant shortness of breath, chest tightness or wheezing. The patient has never been evaluated for obstructive sleep apnea, but denies any significant daytime hypersomnolence. 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 DME Vendor: NO Accompanied by: Self Is patient in pain?: No Allergies naproxen (From Naprosyn) Allergy (Severe, Verified 08/08/25 11:11) Hives levofloxacin (From Levaquin) Allergy (Unknown, Verified 08/08/25 11:11) pain Medications ???Medication ???Instructions ???Recorded ???Confirmed ???Type aspirin 81 mg tablet,delayed 81 mg PO QDAY 12/22/17 08/08/25 Hi story release (Adult Aspirin Regimen) cholecalciferol (vitamin D3) 125 5,000 unit PO QDAY 12/22/17 History mcg (5,000 unit) capsule pravastatin 40 mg tablet 40 mg PO QHS 12/22/17 08/08/25 His tory spacer #1 ea 03/06/20 08/08/25 Rx Lactobacillus acidophilus 100 mg PO DAILY 05/29/25 08/08/25 History (Acidophilus capsule) ipratropium bromide 21 mcg (0.03 intranasal 05/29/25 08/08/25 Histo ry %) nasal spray montelukast 10 mg tablet 10 mg PO DAILY 05/29/25 08/08/25 H istory vitamin B complex (Vitamins B 1 cap PO DAILY 05/29/25 08/08/25 H istory Complex capsule) apixaban 5 mg tablet (Eliquis) 5 mg PO BID #60 tabs 05/31/2508/24 Rx metoprolol succinate 50 mg 100 mg (2 x 50 mg) PO DAILY #120 0 05/31/25 08/08/25 Rx tablet,extended release 24 hr tabs furosemide 20 mg tablet 20 mg PO QDAY 08/08/25 08/08/25 Hi story mag carb,rnmr-cttgo-yuvd-t aur-inos g PO 08/08/25 08/08/25 History 350 mg-250 mg/7.8 (more content not included)... Normal [facility] Inital Evaluation (1) - PTon 08-03-2025 Inital Evaluation (1) - PT 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 [address] [place] [address] [address] [place] [address] / REHABILITATION SERVICES INITIAL EVALUATION MR#: [id number] Acct: [id number] Name: VICKIE GONZALEZ Rep #: [id number] : 1955 69 From: Alber Umana PT, Cert. T, OCS Referring Dr.: Dr. Kirill Newell MD Status: REG R CR Insurance: MEDICARE PART A B MEDICARE SUPPLEMENT PLAN Patient's Visit Information Visit Information Visit Information: VICKIE GONZALEZ is a 69 year old F referred to 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 by Dr. Kirill Newell MD with a diagnosis of LEFT SHOULDER WEAKNESS , CORE WEAKNESS. Date of Evaluation: 08/03/25 Physical Therapist: Alber Umana, PT, Cert MDT, OCS Visit Plan Frequency: 2x /Week Duration: 4 Weeks Plan: PT INTERVENTIONS ROM SHOULDER ,STRENGTHENING RTC/SCAPULAR STRENGTHENING ,MANUAL THERAPY PROM ,CORE STRENGTHENING AND MODALTIES PRN Subjective Subjective: This 69 y/o female presents to physical therapy with left shoulder pain and decrease core. Patient has had shoulder pain 4 months . Patient had wellness check . Patient recently had hospitalized for A -Fib. Patient left shoulder global. Patient pain worse with OH activities ,lifting and pushing with arms from chair, Symptoms worse when reaching in cupboard ,reaching across body ,IR put on coat. Denies paresthesia/tingling -. Patient sleeping okay. Patient has no injury or trauma. Patient condition affects QOL and function/ADLS. Increase strength. 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 Left Shoulder: Pain Intensity (Out of 10): 0 Pain Intensity Range: 5 Objective Objective: POSTURE: mild forward posture rounded shoulders PALAPTION: long head bicep ,bicipital groove NEURO: denies paresthesia/tingling AROM: shoulder flexion 110 degrees ,abduction 110 degrees ,ER 75 degrees ,IR side of pelvis PROM: shoulder flexion 140 degrees ,abduction 150 degrees in scapular plane CAPSULAR HUMERAL JOINT: mild tight MMT:( peak force) infraspinatus 9.2,subscapularis 12.2 ,supraspinatus 12.4 deltoid 10.2 Special Tests L Shoulder Lift Off Test - Subscapular Tear: Negative L Shoulder Drop Sign - IS Test: Negative L Shoulder Neer - Impingement: Positive L Shoulder Mensah Erasto - Impingement: Positive L Shoulder Biceps Load Test - Labrum: Negative L Shoulder Speeds Test - Labrum/Biceps: Positive L Shoulder Shrug Sign - OA/Adhesive Capsulitis: Positive Balance/Special Test Scores Quick DASH Score: 40.9075 Goals Goal 1:: Patient to be I with HEP for left shoulder and core Goal Time Frame: 4-6 Weeks Goal 2:: Patient to improve AROM shoulder flexion /abduction 140 degrees to reach in cupboard and IR L1 to put on coast Goal Time Frame: 4-6 Weeks Goal 3:: Patient to peak force RTC /deltoid by 5-8# to improve function and OH activities Goal Time Frame: 4-6 Weeks Goal 4:: Patient to improve quick dash by 5 points to improve QOL and function Goal Time Frame: 4-6 Weeks Goal 5:: Patient to demonstrate 50% improvement with less pain and improved function Goal Time Frame: 4-6 Weeks Rehabilitation Potential 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 Diagnosis: This patient has left shoulder pain with weakness RTC ,decrease ROM ,impairs ADL's and housework task thus benefit from skilled PT Rehabilitation Potential: Good Anticipated Interventions Patient/Client Instruction: Educate patient on: Condition and Plan of Care For the Purpose of:: To decrease pain, To increase ROM, To improve muscle performance and motor function, To improve ability to perform ADL's, To increase tolerance to activity/condition/pos ition, To improve ability of physical actions for home/community/work/le isure, To improve health of tissue, To prevent re-injury and To improve tolerance to ADL's Therapeutic Exercise to Include: Strength training, Postural training, Flexibilty training, Passive ROM, Active ROM and Scapular Strength/Stabilization Comment: RTC For the Purpose of:: To decrease pain, To increase ROM, To improve muscle performance and motor function, To improve ability to perform ADL's, To increase tolerance to activity/condition/pos ition, To improve ability of physical actions for home/community/work/le isure, To improve health of tissue, To decrease soft tissue restriction, To increase flexibility/ROM, To reduce risk of recurrence and To improve tolerance to ADL's Manual Therapy Techniques to Include: Mobilization and Passive ROM Comment: G-H For the Purpose of:: To decrease pain, To increase ROM, To improve nutrient delivery to tissue and To increase oxygenation perfusion TENS: Yes Cryotherapy (ice pack, ice massage): Yes Thermo therapy (hot pack): Yes Ultrasound (thermal/non thermal): Yes For the Purpose of:: To decrease pain, To increase ROM, To improve nutrient delivery to tissue, To increase oxygenation perfusion, To improve hea (more content not included)... Normal [facility] ECG 12 leadon 07-03-2025 [facility] Atrial flutter ABNORMAL RHYTHM [facility] ECG 12 leadOrdered By: Katy Segura on 07-03-2025 [facility] Work Phone: ECHOCARDIOGRAM TRANSESOPHAGE Nain 07-03-2025 ECHOCARDIOGRAM TRANSESOPHAGEAL Summary 1. Limited transesophageal echocardiogram performed prior to atrial fibrillation ablation. 2. Patient was coughing throughout the procedure, became mildly hypoxic, which resolved with removal of the JENNA probe. 3. Left ventricular systolic function is grossly normal, estimated LVEF 55%. 4. Intact interatrial septum by color-flow Doppler. 5. There is spontaneous echo contrast within the left atrial appendage, but no thrombus. Ordering Physician: Remy Segura MD Referring Physician: Remy Segura MD Reading Physician: Bhavik Simms DO Commercial Intern: Geraldo Carlos RDCS Primary Nurse: Kaia Farmer RN Secondary Nurse: Radha Hodges Attending Physician: Remy Segura MD Patient Info Site Location[place] [facility] [place] Location: [facility] Name: Vickie Gonzalez Age: 69 years : 1955 Gender: Female Ht: 167 cm Wt: 118 kg BSA: 2.40 m2 HR: 111 bpm BP: 147 / 89 mmHg Technical Quality: Fair Exam Date: 07/03/2025 10:23 AM Patient Status: OUTPATIENT Exam Type: ECHOCARDIOGRAM TRANSESOPHAGEAL Study Info Indications I48.3 - Typical atrial flutter [id number] BMI: 42.31 kg/m2 History/Risk Factors Hypertension: Yes Dyslipidemia: Yes Atrial Fibrillation: Yes Prior Interventions Valve Surgery: Yes Type of Valve Surgery: AV Bioprosthetic Replacement Most Recent Valve Surgery: 01/21/2022 Procedure Details The patient arrived in a fasting state after obtaining informed consent. Timeout performed. The transesophageal probe was passed into the posterior pharynx, mid-esophagus, distal esophagus. Imaging was performed at multiple levels. The patient tolerated the procedure well and there were no complications. The patient was transferred out of the examination area in satisfactory condition. 3D images were acquired. Medications The patient was administered viscous Xylocaine 2% by mouth. See anesthesia note. Report Signatures Echo Finalized by Bhavik Simms DO on 07/03/2025 11:30 AM Nursing Finalize by Bhavik Simms DO on 07/03/2025 11:30 AM [facility] BASIC METABOLIC PANEL WITH A BETY GAPon 06-15-2025 BUN/CREATININE RATIO SEE NOTE: Normal -22 Ques t Diagnostics Comment on above: Order Comment: FASTI NG:YES FASTING: YES Result Comment: Not Reported: BUN and Creatinine are within reference range. Performed By: #### 1 [id number], [id number] #### [facility] [address], [address] [place] [address] Feed Mill Tender: Brijesh Simon MD Calcium [Mass/Vol] 9.3 mg/dL Normal 8.6-10.4 [facility] Comment on above: Order Comment: FASTI NG:YES FASTING: YES Performed By: #### 1 [id number], [id number] #### [facility] [address], [address] [place] [address] Feed Mill Tender: Brijesh Simon MD Chloride [Moles/Vol] 103 mmol/L Normal 98-110 [facility] Comment on above: Order Comment: FASTI NG:YES FASTING: YES Performed By: #### 1 [id number], [id number] #### [facility] [address], [address] [place] [address] Feed Mill Tender: Brijesh Simon MD CO2 [Moles/Vol] 25 mmol/L Normal 20-32 [facility] Comment on above: Order Comment: FASTI NG:YES FASTING: YES Performed By: #### 1 147, [id number] #### [facility] [place] [address] Feed Mill Tender: Brijesh Simon MD Creatinine [Mass/Vol] 0.99 mg/dL Normal 0.60-1.[address] [facility] [address] [facility] Comment on above: Order Comment: FASTI NG:YES FASTING: YES Performed By: #### 1 676, [id number] #### [facility] [address], [address] [place] [address] Feed Mill Tender: Brijesh Simon MD ELECTROLYTE BALANCE 11 mmol/L (calc) Normal 7-17 [facility] Diagnostics Comment on above: Order Comment: FASTI NG:YES FASTING: YES Performed By: #### 1 069, [id number] #### [facility] [address], [address] [place] [address] [employer] Mill Tender: Brijesh Simon MD GFR/1.73 sq M.predicted among non-blacks MDRD (S/P/Bld) [Vol rate/Area] 61 mL/min/{1.73_m2} Normal > OR = 60 [facility] Comment on above: Order Comment: FASTI NG:YES FASTING: YES Performed By: #### 1 854, 87074 #### [facility] [address], [address] [place] [address] [employer] Tender: Brijesh Simon MD Glucose [Mass/Vol] 97 mg/dL Normal 65-99 [facility] Comment on above: Order Comment: FASTI NG:YES FASTING: YES Result Comment: Fasting reference interval Performed By: #### 1 058, 44739 #### [facility] [address], [address] [place] [address] [employer] Tender: Brijesh Simon MD Potassium [Moles/Vol] 4.6 mmol/L Normal 3.5-5.[address] [facility] Comment on above: Order Comment: FASTI NG:YES FASTING: YES Performed By: #### 1 718, 73573 #### [facility] [address], [address] [place] [address] [employer] Tender: Brijesh Simon MD Sodium [Moles/Vol] 139 mmol/L Normal 135-146 [facility] Comment on above: Order Comment: FASTI NG:YES FASTING: YES Performed By: #### 1 442, 62564 #### [facility] [place] [address] [employer] T[employer]: Brijesh Simon MD Urea nitrogen [Mass/Vol] 18 mg/dL Normal 7-25 [facility] Comment on above: Order Comment: FASTI NG:YES FASTING: YES Performed By: #### 1 068, 31397 #### [facility] [place] [address] [employer]: Brijesh Simon MD BUN/CREATININE RATIO SEE NOTE: Normal 6-22 [facility] Comment on above: Order Comment: FASTI NG:YES FASTING: YES Result Comment: Not Reported: BUN and Creatinine are within reference range. Performed By: #### 9 8158 #### [facility] [address], [address] [place] [address] [employer] Tender: Brijesh Simon MD Calcium [Mass/Vol] 9.0 mg/dL Normal 8.6-10.4 [facility] Comment on above: Order Comment: FASTI NG:YES FASTING: YES Performed By: #### 9 2498 #### [facility] [address], [address] [place] [address] [employer] Tender: Brijesh Simon MD Chloride [Moles/Vol] 102 mmol/L Normal 98-110 [facility] t Diagnostics Comment on above: Order Comment: FASTI NG:YES FASTING: YES Performed By: #### 9 0168 #### [facility] [address], [address] [place] [address] [employer] T[employer]: Brijesh Siomn MD CO2 [Moles/Vol] 28 mmol/L Normal 20-32 [facility] Comment on above: Order Comment: FASTI NG:YES FASTING: YES Performed By: #### 9 2498 #### [facility] [address], [address] [place] [address] [employer] Tender: Brijesh Simon MD Creatinine [Mass/Vol] 0.97 mg/dL Normal 0.60-1.00 [facility] Comment on above: Order Comment: FASTI NG:YES FASTING: YES Performed By: #### 9 2498 #### [facility] [address], [address] [place] [address] [employer] Tender: Brijesh Simon MD ELECTROLYTE BALANCE 10 mmol/L (calc) Normal 7-17 [facility] Comment on above: Order Comment: FASTI NG:YES FASTING: YES Performed By: #### 9 4138 #### [facility] [place] [address] [employer] T[employer]: Brijesh Simon MD GFR/1.73 sq M.predicted among non-blacks MDRD (S/P/Bld) [Vol rate/Area] 63 mL/min/{1.73_m2} Normal > OR = 60 [facility] Comment on above: Order Comment: FASTI NG:YES FASTING: YES Performed By: #### 9 2498 #### [facility] [place] [address] [employer] T[employer]: Brijesh Simon MD Glucose [Mass/Vol] 95 mg/dL Normal 65-99 [facility] Comment on above: Order Comment: FASTI NG:YES FASTING: YES Result Comment: Fasting reference interval Performed By: #### 9 2498 #### [facility] [place] [address] [employer] T[employer]: Brijesh Simon MD Potassium [Moles/Vol] 4.6 mmol/L Normal 3.5-5.3 [facility] Comment on above: Order Comment: FASTI NG:YES FASTING: YES Performed By: #### 9 1018 #### [facility] [place] [address] [employer] Tender: Brijesh Simon MD Sodium [Moles/Vol] 140 mmol/L Normal 135-146 [facility] Comment on above: Order Comment: FASTI NG:YES FASTING: YES Performed By: #### 9 3208 #### [facility] [place] [address] [employer] Tender: Brijesh Simon MD Urea nitrogen [Mass/Vol] 19 mg/dL Normal 7-25 [facility] Comment on above: Order Comment: FASTI NG:YES FASTING: YES Performed By: #### 9 0268 #### [facility] [place] [address] [employer] Tender: Brijesh Simon MD Basic metabolic 2000 panelon 06-15-2025 Anion gap [Moles/Vol] 10 mmol/L [facility] Calcium [Mass/Vol] 9 mg/dL 8.6 - 10. 4 mg/dL [facility] Chloride [Moles/Vol] 102 mmol/L 98 - 11 0 mmol/L [facility] CO2 [Moles/Vol] 28 mmol/L 20 - 32 mmol/L [facility] Creatinine [Mass/Vol] 0.97 mg/dL 0.60 - 1.00 mg/dL [facility] GFR/1.73 sq M.predicted among non-blacks MDRD (S/P/Bld) [Vol rate/Area] 63 mL/min/{1.73_m2} > OR = 60 mL/min/1.73m 2 [facility] Glucose [Mass/Vol] 95 mg/dL 65 - 99 mg/dL [facility] Comment on above: Fasting reference interval Potassium [Moles/Vol] 4.6 mmol/L 3.5 - 5.3 mmol/L [facility] Sodium [Moles/Vol] 140 mmol/L 135 - 146 mmol/L [facility] Urea nitrogen [Mass/Vol] 19 mg/dL 7 - 25 mg/d L [facility] Urea nitrogen/Creatinine [Mass ratio] SEE NOTE: [facility] Comment on above: Not Reported: BUN an d Creatinine are within reference range. FASTING:YES FASTING: YES [facility] CBC (H/H, RBC, INDICES, WBC, PLT)on 06-15-2025 Erythrocyte distribution width (RBC) [Ratio] 15.1 % High 11.0-15.0 [facility] Comment on above: Performed By: #### 1 281, 89537 #### [facility] [place] [address] [employer] T[employer]: Brijesh Simon MD Hematocrit (Bld) [Volume fraction] 38.1 % Normal 35.0-45.0 [facility] Comment on above: Performed By: #### 1 426, 70329 #### [facility] [place] [address] [employer] Tender: Brijesh Simon MD Hemoglobin (Bld) [Mass/Vol] 11.8 g/dL Normal 11.7-15.5 [facility] Comment on above: Performed By: #### 1 433, 96468 #### [facility] [place] [address] [employer] Tender: Brijesh Simon MD MCH (RBC) [Entitic mass] 29.3 pg Normal 27.0-33.0 [facility] Comment on above: Performed By: #### 1 151, 06098 #### [facility] [place] [address] [employer] Tender: Brijesh Simon MD MCHC (RBC) [Mass/Vol] 31.0 g/dL Low 32.0-36.[address] [facility] Comment on above: Result Comment: For adults, a slight decrease in the calculated MCHC value (in the range of 30 to 32 g/dL) is most likely not clinically significant; however, it should be interpreted with caution in correlation with other red cell parameters and the patient's clinical condition. Performed By: #### 1 989, 36916 #### [facility] [place] [address] [employer]: Brijesh Simon MD MCV (RBC) [Entitic vol] 94.5 fL Normal 80.0-100.0 [facility] Comment on above: Performed By: #### 1 759, 83524 #### [facility] [place] [address] [employer] T[employer]: Brijesh Simon MD Platelet mean volume (Bld) [Entitic vol] 11.9 fL Normal 7.5-12.5 [facility] Comment on above: Performed By: #### 1 829, 64628 #### [facility] [place] [address] [employer] T[employer]: Brijesh Simon MD Platelets (Bld) [#/Vol] 215 10*3/uL Normal 140-400 [facility] Comment on above: Performed By: #### 1 759, 96749 #### [facility] [place] [address] [employer]: Brijesh Simon MD RBC (Bld) [#/Vol] 4.03 10*6/uL Normal 3.80-5.10 [facility] Comment on above: Performed By: #### 1 759, 53068 #### [facility] [place] [address] [employer] T[employer]: Brijesh Simon MD WBC (Bld) [#/Vol] 6.3 10*3/uL Normal 3.8-10.8 [facility] Comment on above: Performed By: #### 1 809, 91247 #### [facility] [address], [address] [place] [address] [employer]: Brijesh Simon MD ECG 12 leadon 06-06-2025 Atrial Rate [facility] P-R Interval [facility] Q-T Interval [facility] Q-T Interval (corrected) [facility] QRS Duration [facility] QTC Calculation (Bezet) [facility] [facility] Ventricular Rate [facility] 12 Lead EKGon 05-31-2025 12 Lead EKG [facility] [address] [place] [address] 12 Lead EKG 05/31/25 1326 MR#: [id number] Acct: [id number] Name: VICKIE GONZALEZ Rep #: [id number] : 1955 69 From: Francisco Cox MD Attending Dr: Dr. Shagufta Garcia DO Status: DIS I N Ordering Dr: Shagufta Garcia DO Date: 05/31/25 [facility] Sex[facility] F C Admitted: 05/30/25 Test Reason : CHANGE Blood Pressure : */* mmHG Vent. Rate : 98 BPM Atrial Rate : 249 BPM P-R Int : * ms QRS Dur : 92 ms QT Int : 358 ms P-R-T Axes : 255 62 65 degrees QTcB Int : 457 ms Atrial flutter with variable A-V block Abnormal ECG When compared with ECG of 30-May-2025 00:21, ST elevation now present in Inferior leads Nonspecific T wave abnormality, improved in Inferior leads Confirmed by FRANCISCO COX MD ([id number]), health editor SHONDA LEIGH ([id number]) on 06/01/2025 5:59:05 AM Referred By: Confirmed By: FRANCISCO COX MD 06/01/25 0559 Date Francisco Cox MD CC: Dr. Kirill Newell MD; Dr. Shagufta Garcia, DO Signed Normal [facility] Absolute lymphocyte countOrd ered By: Shagufta Garcia on 05-31-2025 Lymphocytes Auto (Unsp spec) [#/Vol] 2.19 10*3/uL 0.83-4.51 [facility] Absolute neutrophil countOrd ered By: Shagufta Garcia on 05-31-2025 Neutrophils (Bld) [#/Vol] 4.7 10*3/uL 2.0-7.7 [facility] Anion gap in Serum or Plasma Ordered By: Shagufta Garcia on 05-31-2025 Anion gap [Moles/Vol] 12 mmol/L 5-15 [facility] Automated lymphocyte count a s percentage of total leukocytesOrdered By: Shagufta Garcia on 05-31-2025 Lymphocytes/100 WBC Auto (Unsp spec) 28.5 % 19-41 [facility] BUN/creatinine ratioOrdered By: Shagufta Garcia on 05-31-2025 Urea nitrogen/Creatinine [Mass ratio] 20.2 mg/mg High 10-20 [facility] Basophil percentageOrdered B y: Shagufta Garcia on 05-31-2025 Basophils/100 WBC (Bld) 0.5 % 0-1 [facility] Bilirubin, totalOrdered By: Shagufta Garcia on 05-31-2025 Bilirubin [Mass/Vol] 0.77 mg/dL 0.00-1.30 [facility] CBC W/Diff, Automatedon Absolute Lymph 2.19 X10 3/uL Normal 0.83-4.51 [facility] Comment on above: Performed By: #### L 500.4050, L501.2300, L501.5200, L100.0100 #### [facility] Laboratory [address] [place], [address] Absolute Neut 4.7 X10 3/uL Normal 2.0-7.7 [facility] Comment on above: Performed By: #### L 500.4050, L501.2300, L501.5200, L100.0100 #### [facility] [address] [place], [address] Basophils/100 WBC (Bld) 0.5 % Normal 0-1 [facility] Comment on above: Performed By: #### L 500.4050, L501.2300, L501.5200, L100.0100 #### [facility] [address] [place], [address] Eosinophils/100 WBC (Bld) 3.3 % Normal 0-5 [facility] Comment on above: Performed By: #### L 500.4050, L501.2300, L501.5200, L100.0100 #### [facility] [address] [place], [address] Erythrocyte distribution width (RBC) [Ratio] 15.3 % High 11.6-14.6 [facility] Comment on above: Performed By: #### L 500.4050, L501.2300, L501.5200, L100.0100 #### [facility] [address] [place], [address] Hematocrit (Bld) [Volume fraction] 37.5 % Normal 37-47 [facility] Comment on above: Performed By: #### L 500.4050, L501.2300, L501.5200, L100.0100 #### [facility] [address] [place], [address] Hemoglobin (Bld) [Mass/Vol] 12.1 g/dL Normal 12.0-15.0 [facility] Comment on above: Performed By: #### L 500.4050, L501.2300, L501.5200, L100.0100 #### [facility] [address] [place], [address] IG% 0.500 Normal 0.0-0.9 [facility] Comment on above: Result Comment: IG% - Immature Granulocytes (promyelocytes, myelocytes and metamyelocytes) > 1% indicates that a LEFT SHIFT is Present. Performed By: #### L 500.4050, L501.2300, L501.5200, L100.0100 #### [facility] [address] [place], [address] Lymphocytes/100 WBC (Bld) 28.5 % Normal 19-41 [facility] Comment on above: Performed By: #### L 500.4050, L501.2300, L501.5200, L100.0100 #### [facility] [address] [place], [address] MCH (RBC) [Entitic mass] 28.7 pg Normal 27.0-32.0 [facility] Comment on above: Performed By: #### L 500.4050, L501.2300, L501.5200, L100.0100 #### [facility] [address] [place], [address] MCHC (RBC) [Mass/Vol] 32.3 g/dL Normal 32-36 [facility] Comment on above: Performed By: #### L 500.4050, L501.2300, L501.5200, L100.0100 #### [facility] [address] [place], [address] MCV (RBC) [Entitic vol] 89.1 fL Normal 81-99 [facility] Comment on above: Performed By: #### L 500.4050, L501.2300, L501.5200, L100.0100 #### [facility] [address] [place], [address] Monocytes/100 WBC (Bld) 6.8 % Normal 0-10 [facility] Comment on above: Performed By: #### L 500.4050, L501.2300, L501.5200, L100.0100 #### [facility] [address] [place], [address] Neutrophils/100 WBC (Bld) 60.4 % Normal 47-70 [facility] Comment on above: Performed By: #### L 500.4050, L501.2300, L501.5200, L100.0100 #### [facility] [address] [place], [address] Nucleated RBC (Bld) [#/Vol] 0 10*3/uL Normal 0-5 [facility] Comment on above: Performed By: #### L 500.4050, L501.2300, L501.5200, L100.0100 #### [facility] [address] [place], [address] Platelet mean volume (Bld) [Entitic vol] 11.4 fL Normal 6.2-12.0 [facility] Comment on above: Performed By: #### L 500.4050, L501.2300, L501.5200, L100.0100 #### [facility] [address] [place], [address] Platelets (Bld) [#/Vol] 228 10*3/uL Normal 150-450 [facility] Comment on above: Performed By: #### L 500.4050, L501.2300, L501.5200, L100.0100 #### [facility] [address] [place], [address] RBC (Bld) [#/Vol] 4.21 10*6/uL Normal 4.2-5.4 [facility] Comment on above: Performed By: #### L 500.4050, L501.2300, L501.5200, L100.0100 #### [facility] [address] [place], [address] RDW SD 49.7 fl High 35.1-43.9 [facility] Comment on above: Performed By: #### L 500.4050, L501.2300, L501.5200, L100.0100 #### [facility] [address] [place], [address] WBC (Bld) [#/Vol] 7.7 10*3/uL Normal 4.4-11.0 [facility] Comment on above: Performed By: #### L 500.4050, L501.2300, L501.5200, L100.0100 #### [facility] [address] [place], [address] Carbon dioxide, total [Moles /volume] in Central venous bloodOrdered By: Shagufta Garcia on 05-31-2025 CO2 [Moles/Vol] 22.2 mmol/L 21.0-32.0 [facility] Chloride assayOrdered By: Levy Garcia on 05-31-2025 Chloride [Moles/Vol] 106 mmol/L 98-108 [facility] Comprehensive Metabolic Prof ilon 05-31-2025 Albumin [Mass/Vol] 3.6 g/dL Normal 3.4-4.8 [facility] Comment on above: Performed By: #### L 500.4050, L501.2300, L501.5200, L100.0100 #### [facility] [address] [place] [place], [address] Albumin/Globulin [Mass ratio] 1.0 {ratio} Normal 0.9-2.4 [facility] Comment on above: Performed By: #### L 500.4050, L501.2300, L501.5200, L100.0100 #### [facility] [address] [place], [address] ALK PHOS 118 U/L High 35-104 [facility] Comment on above: Performed By: #### L 500.4050, L501.2300, L501.5200, L100.0100 #### [facility] [address] [place], [address] ALT [Catalytic activity/Vol] 23 U/L Normal <=34 [facility] Comment on above: Performed By: #### L 500.4050, L501.2300, L501.5200, L100.0100 #### [facility] [address] [place], [address] AST [Catalytic activity/Vol] 31 U/L Normal <=31 [facility] Comment on above: Performed By: #### L 500.4050, L501.2300, L501.5200, L100.0100 #### [facility] [address] [place], [address] Bilirubin [Mass/Vol] 0.77 mg/dL Normal 0.00-1.30 [facility] Comment on above: Performed By: #### L 500.4050, L501.2300, L501.5200, L100.0100 #### [facility] [address] [place], [address] BUN/CRE 20.2 RATIO High 10-20 [facility] Comment on above: Performed By: #### L 500.4050, L501.2300, L501.5200, L100.0100 #### [facility] [address] [place], [address] Calcium [Mass/Vol] 9.0 mg/dL Normal 7.6-11.0 [facility] Comment on above: Performed By: #### L 500.4050, L501.2300, L501.5200, L100.0100 #### [facility] [address] [place], [address] Chloride [Moles/Vol] 106 mmol/L Normal 98-108 [facility] Comment on above: Performed By: #### L 500.4050, L501.2300, L501.5200, L100.0100 #### [facility] [address] [place], [address] CO2 [Moles/Vol] 22.2 mmol/L Normal 21.0-32.0 [facility] Comment on above: Performed By: #### L 500.4050, L501.2300, L501.5200, L100.0100 #### [facility] [address] [place], [address] Creatinine [Mass/Vol] 0.83 mg/dL Normal 0.70-1.20 [facility] Comment on above: Performed By: #### L 500.4050, L501.2300, L501.5200, L100.0100 #### [facility] [address] [place], [address] ECRCL 84.77 ml/min Normal 50-250 [facility] Comment on above: Performed By: #### L 500.4050, L501.2300, L501.5200, L100.0100 #### [facility] [address] [place], [address] GAP 12 Normal 5-15 [facility] Comment on above: Performed By: #### L 500.4050, L501.2300, L501.5200, L100.0100 #### [facility] [address] [place], [address] GFR/1.73 sq M.predicted among non-blacks MDRD (S/P/Bld) [Vol rate/Area] 76 mL/min/{1.73_m2} Normal >60 [facility] Comment on above: Result Comment: mL/m in/1.73m2 CKD-EPI Creatinine Equation (2020) Performed By: #### L 500.4050, L501.2300, L501.5200, L100.0100 #### [facility] [address] [place], [address] Globulin (S) [Mass/Vol] 3.7 g/dL Normal 2.2-4.2 [facility] Comment on above: Performed By: #### L 500.4050, L501.2300, L501.5200, L100.0100 #### [facility] [address] [place], [address] Glucose [Mass/Vol] 106 mg/dL High 70-99 [facility] Comment on above: Performed By: #### L 500.4050, L501.2300, L501.5200, L100.0100 #### [facility] [address] [place], [address] Potassium [Moles/Vol] 4.0 mmol/L Normal 3.3-5.1 [facility] Comment on above: Performed By: #### L 500.4050, L501.2300, L501.5200, L100.0100 #### [facility] [address] [place], [address] Sodium [Moles/Vol] 139 mmol/L Normal 133-145 [facility] Comment on above: Performed By: #### L 500.4050, L501.2300, L501.5200, L100.0100 #### [facility] [address] [place], [address] T PROT 7.3 g/dL Normal 5.9-8.4 [facility] Comment on above: Performed By: #### L 500.4050, L501.2300, L501.5200, L100.0100 #### [facility] [address] [place], [address] Urea nitrogen [Mass/Vol] 17 mg/dL Normal 4-19 [facility] Comment on above: Performed By: #### L 500.4050, L501.2300, L501.5200, L100.0100 #### [facility] [address] [place], [address] Eosinophil percentageOrdered By: Shagufta Garcia on 05-31-2025 Eosinophils/100 WBC (Bld) 3.3 % 0-5 [facility] Erythrocyte distribution wid th ratioOrdered By: Shagufta Garcia on 05-31-2025 Erythrocyte distribution width (RBC) [Ratio] 15.3 % High 11.6-14.6 [facility] Erythrocyte distribution wid th standard deviationOrdered By: Shagufta Garcia on 05-31-2025 Erythrocyte distribution width (RBC) [Ratio] 49.7 fl High 35.1-43.9 [facility] Glomerular filtration rate ( GFR) estimation/1.73 sq m using serum, plasma, or whole bOrdered By: Shagufta Garcia on 05-31-2025 GFR/1.73 sq M.predicted among non-blacks MDRD (S/P/Bld) [Vol rate/Area] 76 mL/min/{1.73_m2} >60 [facility] Comment on above: mL/min/1.73m2 CKD-EP I Creatinine Equation (2020) Hematocrit Auto (Bld) [Volum e fraction]Ordered By: Shagufta Garcia on 05-31-2025 Hematocrit (Bld) [Volume fraction] 37.5 % 37-47 [facility] Hemoglobin measurementOrdere d By: Shagufta Garcia on 05-31-2025 Hemoglobin (Bld) [Mass/Vol] 12.1 g/dL 12.0-15.0 [facility] Immature granulocytes/100 WB C Auto (Bld)Ordered By: Shagufta Garcia on 05-31-2025 Immature granulocytes/100 WBC (Bld) 0.500 % 0.0-0.9 [facility] Comment on above: IG% - Immature Granu locytes (promyelocytes, myelocytes and metamyelocytes) > 1% indicates that a LEFT SHIFT is Present. Laboratory - Chemistry and C hemistry - challengeOrdered By: Shagufta Garcia on 05-31-2025 AST [Catalytic activity/Vol] 31 U/L <32 [facility] MCV (mean corpuscular volume ) determinationOrdered By: Shagufta Garcia on 05-31-2025 MCV (RBC) [Entitic vol] 89.1 fL 81-99 [facility] Magnesiumon 05-31-2025 Magnesium [Mass/Vol] 2.1 mg/dL Normal 1.5-2.2 [facility] Comment on above: Performed By: #### L 500.4050, L501.2300, L501.5200, L100.0100 ####[facility] [address] [place], [place], [id number] Magnesium measurement (mass/ volume)Ordered By: Shagufta Garcia on 05-31-2025 Magnesium (Unsp spec) [Mass/Vol] 2.1 mg/dL 1.5-2.2 [facility] Mean corpuscular hemoglobin (MCH) determinationOrdered By: Shagufta Garcia on 05-31-2025 MCH (RBC) [Entitic mass] 28.7 pg 27.0-32.0 [facility] Mean corpuscular hemoglobin concentration (MCHC) determinationOrdered By: Shagufta Garcia on 05-31-2025 MCHC (RBC) [Mass/Vol] 32.3 g/dL 32-36 [facility] Mean platelet volume determi nationOrdered By: Shagufta Garcia on 05-31-2025 Platelet mean volume (Bld) [Entitic vol] 11.4 fL 6.2-12.0 [facility] Monocyte percentageOrdered B y: Shagufta Garcia on 05-31-2025 Monocytes/100 WBC (Bld) 6.8 % 0-10 [facility] Neutrophil percentageOrdered By: Shagufta Garcia on 05-31-2025 Neutrophils/100 WBC (Bld) 60.4 % 47-70 [facility] No Panel Informationon 05-31 [facility] Nucleated red blood cell per centageOrdered By: Shagufta Garcia on 05-31-2025 Nucleated RBC/100 WBC (Bld) [Ratio] 0 % 0-5 [facility] Phosphoruson 05-31-2025 Phosphate [Mass/Vol] 3.7 mg/dL Normal 2.7-4.5 [facility] Comment on above: Performed By: #### L 500.4050, L501.2300, L501.5200, L100.0100 ####[facility] [address] [place], [address] Platelet countOrdered By: Levy Garcia on 05-31-2025 Platelets (Bld) [#/Vol] 228 10*3/uL 150-450 [facility] Potassium measurement (mass/ volume)Ordered By: Shagufta Garcia on 05-31-2025 Potassium (Unsp spec) [Mass/Vol] 4.0 mmol/L 3.3-5.1 [facility] RBC Auto (Bld) [#/Vol]Ordere d By: Shagufta Garcia on 05-31-2025 RBC (Bld) [#/Vol] 4.21 10*6/uL 4.2-5.4 [facility] Serum creatinine measurement (mass/volume)Ordered By: Shagufta Garcia on 05-31-2025 Creatinine [Mass/Vol] 0.83 mg/dL 0.70-1.20 [facility] Serum globulin measurementOr dered By: Shagufta Garcia on 05-31-2025 Globulin (S) [Mass/Vol] 3.7 g/dL 2.2-4.2 [facility] Serum glucose measurement (m ass/volume)Ordered By: Shagufta Garcia on 05-31-2025 Glucose [Mass/Vol] 106 mg/dL High 70-99 [facility] Serum or plasma alanine dennis otransferase (ALT) measurementOrdered By: Shagufta Garcia on 05-31-2025 ALT [Catalytic activity/Vol] 23 U/L <35 [facility] Serum or plasma albumin erasmo urement (mass/volume)Ordered By: Shagufta Garcia on 05-31-2025 Albumin [Mass/Vol] 3.6 g/dL 3.4-4.8 [facility] Serum or plasma albumin/glob ulin mass ratioOrdered By: Shagufta Garcia on 05-31-2025 Albumin/Globulin [Mass ratio] 1.0 {ratio} 0.9-2.4 [facility] Serum or plasma alkaline linh sphatase measurementOrdered By: Shagufta Garcia on 05-31-2025 ALP [Catalytic activity/Vol] 118 U/L High 35-104 [facility] Serum or plasma calcium erasmo urement (mass/volume)Ordered By: Shagufta Garcia on 05-31-2025 Calcium [Mass/Vol] 9.0 mg/dL 7.6-11.0 [facility] Serum or plasma urea nitroge n measurement (mass/volume)Ordered By: Shagufta Garcia on 05-31-2025 Urea nitrogen [Mass/Vol] 17 mg/dL 4-19 [facility] Sodium levelOrdered By: Maribel Garcia on 05-31-2025 Sodium [Moles/Vol] 139 mmol/L 133-145 [facility] Total proteinOrdered By: Lennie Garcia on 05-31-2025 Protein [Mass/Vol] 7.3 g/dL 5.9-8.4 [facility] White blood cell (WBC) count Ordered By: Shagufta Garcia on 05-31-2025 WBC (Bld) [#/Vol] 7.7 10*3/uL 4.4-11.0 [facility] 12 Lead EKGon 05-30-2025 12 Lead EKG [facility] [address] [place] [address] 12 Lead EKG 05/30/25 0021 MR#: [id number] Acct: [id number] Name: VICKIE GONZALEZ Rep #: [id number] : 1955 69 From: Francisco Cox MD Attending Dr: Dr. Shagufta Garcia DO Status: ADM I N Ordering Dr: Remy Rai DO Date: 05/30/25 Location: U Sex: F C Admitted: 05/30/25 Test Reason : HTN Blood Pressure : */* mmHG Vent. Rate : 122 BPM Atrial Rate : 244 BPM P-R Int : * ms QRS Dur : 92 ms QT Int : 340 ms P-R-T Axes : 243 65 72 degrees QTcB Int : 484 ms Atrial flutter with 2:1 A-V conduction Nonspecific ST and T wave abnormality Abnormal ECG Confirmed by FRANCISCO COX MD ([id number]), health editor SHONDA LEIGH ([id number]) on 05/30/2025 1:35:34 PM Referred By: FRANCES Confirmed By: FRANCISCO COX MD 07/01/25 1335 Date Francisco Cox MD CC: Dr. Kirill Newell MD; Dr. Shagufta Garcia DO; Remy Rai DO Signed Normal [facility] Absolute lymphocyte countOrd ered By: Remy Rai on 05-30-2025 Lymphocytes Auto (Unsp spec) [#/Vol] 2.26 10*3/uL 0.83-4.51 [facility] Absolute neutrophil countOrd ered By: Remy Rai on 05-30-2025 Neutrophils (Bld) [#/Vol] 5.7 10*3/uL 2.0-7.7 [facility] Anion gap in Serum or Plasma Ordered By: Remy Rai on 05-30-2025 Anion gap [Moles/Vol] 12 mmol/L 5-15 [facility] Automated lymphocyte count a s percentage of total leukocytesOrdered By: Remy Rai on 05-30-2025 Lymphocytes/100 WBC Auto (Unsp spec) 24.9 % 19-41 [facility] BUN/creatinine ratioOrdered By: Remy Rai on 05-30-2025 Urea nitrogen/Creatinine [Mass ratio] 19.0 mg/mg 10- [facility] Basic Metabolic Profile (BMP )on 05-30-2025 BUN/CRE 19.0 RATIO Normal - [facility] Comment on above: Performed By: #### L 500.2500, L100.0100, L501.5200, L501.9520 ####[facility] [address] [place], [address] Calcium [Mass/Vol] 9.4 mg/dL Normal 7.6-11.0 [facility] Comment on above: Performed By: #### L 500.2500, L100.0100, L501.5200, L501.9520 ####[facility] [address] [place], [address] Chloride [Moles/Vol] 103 mmol/L Normal 98-108 [facility] Comment on above: Performed By: #### L 500.2500, L100.0100, L501.5200, L501.9520 ####[facility] [address] [place], [address] CO2 [Moles/Vol] 23.9 mmol/L Normal 21.0-32.0 [facility] Comment on above: Performed By: #### L 500.2500, L100.0100, L501.5200, L501.9520 ####[facility] [address] [place], [address] Creatinine [Mass/Vol] 0.86 mg/dL Normal 0.70-1.20 [facility] Comment on above: Performed By: #### L 500.2500, L100.0100, L501.5200, L501.9520 ####[facility] [address] [place], [address] ECRCL 81.19 ml/min Normal 50-250 [facility] Comment on above: Performed By: #### L 500.2500, L100.0100, L501.5200, L501.9520 ####[facility] [address] [place], [address] GAP 12 Normal 5-15 [facility] Comment on above: Performed By: #### L 500.2500, L100.0100, L501.5200, L501.9520 ####[facility] [address] [place], [address] GFR/1.73 sq M.predicted among non-blacks MDRD (S/P/Bld) [Vol rate/Area] 72 mL/min/{1.73_m2} Normal >60 [facility] Comment on above: Result Comment: mL/m in/1.73m2 CKD-EPI Creatinine Equation (2020) Performed By: #### L 500.2500, L100.0100, L501.5200, L501.9520 ####[facility] [address] [place], [address] Glucose [Mass/Vol] 105 mg/dL High 70-99 [facility] Comment on above: Performed By: #### L 500.2500, L100.0100, L501.5200, L501.9520 ####[facility] [address] [place], [address] Potassium [Moles/Vol] 3.9 mmol/L Normal 3.3-5.1 [facility] Comment on above: Performed By: #### L 500.2500, L100.0100, L501.5200, L501.9520 ####[facility] [address] [place], [address] Sodium [Moles/Vol] 138 mmol/L Normal 133-145 [facility] Comment on above: Performed By: #### L 500.2500, L100.0100, L501.5200, L501.9520 ####[facility] [address] [place], [address] Urea nitrogen [Mass/Vol] 16 mg/dL Normal 4-19 [facility] Comment on above: Performed By: #### L 500.2500, L100.0100, L501.5200, L501.9520 ####[facility] [address] [place], [address] Basophil percentageOrdered B y: Remy Rai on 05-30-2025 Basophils/100 WBC (Bld) 0.4 % 0-1 [facility] CBC W/Diff, Automatedon Absolute Lymph 2.41 X10 3/uL Normal 0.83-4.51 [facility] Comment on above: Performed By: #### L 100.0100, L501.2300, L500.4100, L500.4050 #### [facility] Laboratory [address] [place], [address] Absolute Neut 5.2 X10 3/uL Normal 2.0-7.7 [facility] Comment on above: Performed By: #### L 100.0100, L501.2300, L500.4100, L500.4050 #### [facility] Laboratory [address] [place], [address] Basophils/100 WBC (Bld) 0.5 % Normal 0-1 [facility] Comment on above: Performed By: #### L 100.0100, L501.2300, L500.4100, L500.4050 #### [facility] Laboratory [address] [place], [address] Eosinophils/100 WBC (Bld) 2.0 % Normal 0-5 [facility] Comment on above: Performed By: #### L 100.0100, L501.2300, L500.4100, L500.4050 #### [facility] Laboratory [address] [place], [address] Erythrocyte distribution width (RBC) [Ratio] 14.8 % High 11.6-14.6 [facility] Comment on above: Performed By: #### L 100.0100, L501.2300, L500.4100, L500.4050 #### [facility] Laboratory [address] [place], [address] Hematocrit (Bld) [Volume fraction] 36.5 % Low 37-47 [facility] Comment on above: Performed By: #### L 100.0100, L501.2300, L500.4100, L500.4050 #### [facility] Laboratory [address] [place], [address] Hemoglobin (Bld) [Mass/Vol] 11.9 g/dL Low 12.0-15.0 [facility] Comment on above: Performed By: #### L 100.0100, L501.2300, L500.4100, L500.4050 #### [facility] Laboratory [address] [place], [address] IG% 0.400 Normal 0.0-0.9 [facility] Comment on above: Result Comment: IG% - Immature Granulocytes (promyelocytes, myelocytes and metamyelocytes) > 1% indicates that a LEFT SHIFT is Present. Performed By: #### L 100.0100, L501.2300, L500.4100, L500.4050 #### [facility] Laboratory [address] [place], [address] Lymphocytes/100 WBC (Bld) 28.6 % Normal 19-41 [facility] Comment on above: Performed By: #### L 100.0100, L501.2300, L500.4100, L500.4050 #### [facility] Laboratory [address] [place], [address] MCH (RBC) [Entitic mass] 28.8 pg Normal 27.0-32.0 [facility] Comment on above: Performed By: #### L 100.0100, L501.2300, L500.4100, L500.4050 #### [facility] Laboratory [address] [place], [address] MCHC (RBC) [Mass/Vol] 32.6 g/dL Normal 32-36 [facility] Comment on above: Performed By: #### L 100.0100, L501.2300, L500.4100, L500.4050 #### [facility] Laboratory [address] [place], [address] MCV (RBC) [Entitic vol] 88.4 fL Normal 81-99 [facility] Comment on above: Performed By: #### L 100.0100, L501.2300, L500.4100, L500.4050 #### [facility] Laboratory [address] [place], [address] Monocytes/100 WBC (Bld) 6.7 % Normal 0-10 [facility] Comment on above: Performed By: #### L 100.0100, L501.2300, L500.4100, L500.4050 #### [facility] Laboratory [address] [place], [address] Neutrophils/100 WBC (Bld) 61.8 % Normal 47-70 [facility] Comment on above: Performed By: #### L 100.0100, L501.2300, L500.4100, L500.4050 #### [facility] Laboratory [address] [place], [address] Nucleated RBC (Bld) [#/Vol] 0 10*3/uL Normal 0-5 [facility] Comment on above: Performed By: #### L 100.0100, L501.2300, L500.4100, L500.4050 #### [facility] Laboratory [address] [place], [address] Platelet mean volume (Bld) [Entitic vol] 11.2 fL Normal 6.2-12.0 [facility] Comment on above: Performed By: #### L 100.0100, L501.2300, L500.4100, L500.4050 #### [facility] Laboratory [address] [place], [address] Platelets (Bld) [#/Vol] 213 10*3/uL Normal 150-450 [facility] Comment on above: Performed By: #### L 100.0100, L501.2300, L500.4100, L500.4050 #### [facility] Laboratory [address] [place], [address] RBC (Bld) [#/Vol] 4.13 10*6/uL Low 4.2-5.4 [facility] Comment on above: Performed By: #### L 100.0100, L501.2300, L500.4100, L500.4050 #### [facility] Laboratory [address] [place], [address] RDW SD 47.9 fl High 35.1-43.9 [facility] Comment on above: Performed By: #### L 100.0100, L501.2300, L500.4100, L500.4050 #### [facility] Laboratory [address] [place], [address] WBC (Bld) [#/Vol] 8.4 10*3/uL Normal 4.4-11.0 [facility] Comment on above: Performed By: #### L 100.0100, L501.2300, L500.4100, L500.4050 #### [facility] Laboratory [address] [place], [address] Absolute Lymph 2.26 X10 3/uL Normal 0.83-4.51 [facility] Comment on above: Performed By: #### L 500.2500, L100.0100, L501.5200, L501.9520 ####[facility] [address] [place], [address] Absolute Neut 5.7 X10 3/uL Normal 2.0-7.7 [facility] Comment on above: Performed By: #### L 500.2500, L100.0100, L501.5200, L501.9520 ####[facility] [address] [place], [address] Basophils/100 WBC (Bld) 0.4 % Normal 0-1 [facility] Comment on above: Performed By: #### L 500.2500, L100.0100, L501.5200, L501.9520 ####[facility] [address] [place], [address] Eosinophils/100 WBC (Bld) 2.9 % Normal 0-5 [facility] Comment on above: Performed By: #### L 500.2500, L100.0100, L501.5200, L501.9520 ####[facility] [address] [place], [address] Erythrocyte distribution width (RBC) [Ratio] 14.8 % High 11.6-14.6 [facility] Comment on above: Performed By: #### L 500.2500, L100.0100, L501.5200, L501.9520 ####[facility] [address] [place], [address] Hematocrit (Bld) [Volume fraction] 37.5 % Normal 37-47 [facility] Comment on above: Performed By: #### L 500.2500, L100.0100, L501.5200, L501.9520 ####[facility] [address] [place], [address] Hemoglobin (Bld) [Mass/Vol] 12.4 g/dL Normal 12.0-15.0 [facility] Comment on above: Performed By: #### L 500.2500, L100.0100, L501.5200, L501.9520 ####[facility] [address] [place], [address] IG% 0.300 Normal 0.0-0.9 [facility] Comment on above: Result Comment: IG% - Immature Granulocytes (promyelocytes, myelocytes and metamyelocytes) > 1% indicates that a LEFT SHIFT is Present. Performed By: #### L 500.2500, L100.0100, L501.5200, L501.9520 ####[facility] [address] [place], [address] Lymphocytes/100 WBC (Bld) 24.9 % Normal 19-41 [facility] Comment on above: Performed By: #### L 500.2500, L100.0100, L501.5200, L501.9520 ####[facility] [address] [place], [address] MCH (RBC) [Entitic mass] 29.2 pg Normal 27.0-32.0 [facility] Comment on above: Performed By: #### L 500.2500, L100.0100, L501.5200, L501.9520 ####[facility] [address] [place], [address] MCHC (RBC) [Mass/Vol] 33.1 g/dL Normal 32-36 [facility] Comment on above: Performed By: #### L 500.2500, L100.0100, L501.5200, L501.9520 ####[facility] [address] [place], [address] MCV (RBC) [Entitic vol] 88.2 fL Normal 81-99 [facility] Comment on above: Performed By: #### L 500.2500, L100.0100, L501.5200, L501.9520 ####[facility] [address] [place], [address] Monocytes/100 WBC (Bld) 8.3 % Normal 0-10 [facility] Comment on above: Performed By: #### L 500.2500, L100.0100, L501.5200, L501.9520 ####[facility] [address] [place], [address] Neutrophils/100 WBC (Bld) 63.2 % Normal 47-70 [facility] Comment on above: Performed By: #### L 500.2500, L100.0100, L501.5200, L501.9520 ####[facility] [address] [place], [address] Nucleated RBC (Bld) [#/Vol] 0 10*3/uL Normal 0-5 [facility] Comment on above: Performed By: #### L 500.2500, L100.0100, L501.5200, L501.9520 ####[facility] [address] [place], [address] Platelet mean volume (Bld) [Entitic vol] 11.4 fL Normal 6.2-12.0 [facility] Comment on above: Performed By: #### L 500.2500, L100.0100, L501.5200, L501.9520 ####[facility] [address] [place], [address] Platelets (Bld) [#/Vol] 223 10*3/uL Normal 150-450 [facility] Comment on above: Performed By: #### L 500.2500, L100.0100, L501.5200, L501.9520 ####[facility] [address] [place], [address] RBC (Bld) [#/Vol] 4.25 10*6/uL Normal 4.2-5.4 [facility] Comment on above: Performed By: #### L 500.2500, L100.0100, L501.5200, L501.9520 ####[facility] [address] [place], [address] RDW SD 47.8 fl High 35.1-43.9 [facility] Comment on above: Performed By: #### L 500.2500, L100.0100, L501.5200, L501.9520 ####[facility] [address] [place], [address] WBC (Bld) [#/Vol] 9.1 10*3/uL Normal 4.4-11.0 [facility] Comment on above: Performed By: #### L 500.2500, L100.0100, L501.5200, L501.9520 ####[facility] [address] [place], [address] CTA Chest W/WO Contraston CTA Chest W/WO Contrast [facility] [place] [address] CTA Chest W/WO Contrast MR#: [id number] Acct: [id number] Name: VICKIE GONZALEZ Rep #: [id number] : 1955 F 69 From: Geraldo Moore MD PCP: Dr. Kirill Newell MD Status: ADM IN Study: CTA Chest W/WO Contrast Date of Exam: 05/30/25 Exam# [id number] Ordering Dr: Nicol Silva DO PROCEDURE: CTA CHEST W/WO CONTRAST 05/30/2025 REASON FOR EXAM: HISTORY OF FIBROSING MEDIASTINITIS. TECHNIQUE: CTA CHEST W/WO CONTRAST Multiplanar Sagittal and Coronal images were obtained. CONTRAST: Isovue 370 VOLUME: 93 mL One or more dose reduction techniques were used (e.g., Automated exposure control, adjustment of the mA and/or kV according to patient size, use of iterative reconstruction technique). RADIATION DOSE SUMMARY: CTDlvol: 45 mGy DLP: 594 mGycm COMPARISON: Chest x-ray 12/14/2023 FINDINGS: Unremarkable base of neck and axilla. Thoracic spine scoliosis and degeneration. Normal esophagus. Mildly enlarged heart. Status post AVR. Status post CABG. No aortic dissection. No pulmonary embolism. However, the proximal right pulmonary artery shows moderately severe narrowing, series 2 images 167/179, with surrounding soft tissue, which may represent fibrosis and may be related to the prior ascending aortic repair. Central airways are patent. Small basilar atelectasis. No consolidation, effusion, or pneumothorax. No acute chest wall findings. No acute upper abdominal findings. 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 Progress imaging as clinically determined. Reading Location: [place] [address] CC: Dr. Nicol Silva DO; Dr. Kirill Newell MD Senior Sharepoint Architect: Signed Normal [facility] Calculated very low density lipoprotein (VLDL) cholesterol measurementOrdered By: Nicol Roldan on 05-30-2025 Calculated very low density lipoprotein (VLDL) cholesterol measurement 14 mg/dL 5-40 [facility] Carbon dioxide, total [Moles /volume] in Central venous bloodOrdered By: Remy Rai on 05-30-2025 CO2 [Moles/Vol] 23.9 mmol/L 21.0-32.0 [facility] Chloride assayOrdered By: Polina Rai on 05-30-2025 Chloride [Moles/Vol] 103 mmol/L 98-108 [facility] Comprehensive Metabolic Prof ilon 05-30-2025 Albumin [Mass/Vol] 3.6 g/dL Normal 3.4-4.8 [facility] Comment on above: Performed By: #### L 100.0100, L501.2300, L500.4100, L500.4050 #### [facility] Laboratory [address] [place], [address] Albumin/Globulin [Mass ratio] 1.0 {ratio} Normal 0.9-2.4 [facility] Comment on above: Performed By: #### L 100.0100, L501.2300, L500.4100, L500.4050 #### [facility] Laboratory [address] [place], [address] ALK PHOS 118 U/L High 35-104 [facility] Comment on above: Performed By: #### L 100.0100, L501.2300, L500.4100, L500.4050 #### [facility] Laboratory [address] [place], [address] ALT [Catalytic activity/Vol] 21 U/L Normal <=34 [facility] Comment on above: Performed By: #### L 100.0100, L501.2300, L500.4100, L500.4050 #### [facility] [facility] [address] [place], [address] AST [Catalytic activity/Vol] 33 U/L High <=31 [facility] Comment on above: Performed By: #### L 100.0100, L501.2300, L500.4100, L500.4050 #### [facility] [address] [place], [address] Bilirubin [Mass/Vol] 0.74 mg/dL Normal 0.00-1.30 [facility] Comment on above: Performed By: #### L 100.0100, L501.2300, L500.4100, L500.4050 #### [facility] [address] [place], [address] BUN/CRE 17.9 RATIO Normal 10-20 [facility] Comment on above: Performed By: #### L 100.0100, L501.2300, L500.4100, L500.4050 #### [facility] [address] [place], [address] Calcium [Mass/Vol] 9.1 mg/dL Normal 7.6-11.0 [facility] Comment on above: Performed By: #### L 100.0100, L501.2300, L500.4100, L500.4050 #### [facility] [address] [place], [address] Chloride [Moles/Vol] 105 mmol/L Normal 98-108 [facility] Comment on above: Performed By: #### L 100.0100, L501.2300, L500.4100, L500.4050 #### [facility] [address] [place], [address] CO2 [Moles/Vol] 22.9 mmol/L Normal 21.0-32.0 [facility] Comment on above: Performed By: #### L 100.0100, L501.2300, L500.4100, L500.4050 #### [facility] [address] [place], [address] Creatinine [Mass/Vol] 0.78 mg/dL Normal 0.70-1.20 [facility] Comment on above: Performed By: #### L 100.0100, L501.2300, L500.4100, L500.4050 #### [facility] [address] [place], [address] ECRCL 87.12 ml/min Normal 50-250 [facility] Comment on above: Performed By: #### L 100.0100, L501.2300, L500.4100, L500.4050 #### [facility] [address] [place], [address] GAP 12 Normal 5-15 [facility] Comment on above: Performed By: #### L 100.0100, L501.2300, L500.4100, L500.4050 #### [facility] [address] [place], [address] GFR/1.73 sq M.predicted among non-blacks MDRD (S/P/Bld) [Vol rate/Area] 82 mL/min/{1.73_m2} Normal >60 [facility] Comment on above: Result Comment: mL/m in/1.73m2 CKD-EPI Creatinine Equation (2020) Performed By: #### L 100.0100, L501.2300, L500.4100, L500.4050 #### [facility] [address] [place], [address] Globulin (S) [Mass/Vol] 3.5 g/dL Normal 2.2-4.2 [facility] Comment on above: Performed By: #### L 100.0100, L501.2300, L500.4100, L500.4050 #### [facility] [address] [place], [address] Glucose [Mass/Vol] 105 mg/dL High 70-99 [facility] Comment on above: Performed By: #### L 100.0100, L501.2300, L500.4100, L500.4050 #### [facility] [address] [place], [address] Potassium [Moles/Vol] 4.1 mmol/L Normal 3.3-5.1 [facility] Comment on above: Performed By: #### L 100.0100, L501.2300, L500.4100, L500.4050 #### [facility] [address] [place], [address] Sodium [Moles/Vol] 140 mmol/L Normal 133-145 [facility] Comment on above: Performed By: #### L 100.0100, L501.2300, L500.4100, L500.4050 #### [facility] [address] [place], [address] T PROT 7.1 g/dL Normal 5.9-8.4 [facility] Comment on above: Performed By: #### L 100.0100, L501.2300, L500.4100, L500.4050 #### [facility] [address] [place], [address] Urea nitrogen [Mass/Vol] 14 mg/dL Normal 4-19 [facility] Comment on above: Performed By: #### L 100.0100, L501.2300, L500.4100, L500.4050 #### [facility] [address] [place], [address] Consultation - Cardiologyon 05-30-2025 Consultation - Cardiology [facility] Medical Records Department [address] [place] [address] Consultation - Cardiology 05/30/25 1733 MR#: [id number] Acct: [id number] Name: VICKIE GONZALEZ Rep #: [id number] : 1955 69 From: Dianne Perez MD PCP: Dr. Kirill Newell MD Status:ADM IN [facility] Assessment Plan Assessment/Plan (1) Fibrosing mediastinitis: (2) Status post double vessel coronary artery bypass: (3) Atrial flutter with rapid ventricular response: (4) Aortic valve insufficiency: QUALIFIERS: Cardiac valve disease etiology: etiology unspecified Qualified Code(s): I 35.1 - Nonrheumatic aortic (valve) insufficiency PLAN: Plan Cardiac care plan recommendation 69-year-old patient with fibrosing mediastinitis Has CAD with two-vessel bypass, done in [facility] in [place] 2000. History of aortic valve bioprosthesis/TAVR This presentation she presented with palpitation And an review of the evaluation by EKG showed evidence of atrial flutter with 1-2 AV block initially started on treatment with calcium channel shivam control the rate Serial cardiac markers negative does not have any symptoms of chest pain. Echocardiographic evaluation showed LV function preserved with normal functioning aortic valve bioprosthesis Moderate tricuspid regurgitation and mild mitral regurgitation and no pericardial effusion. Other medical problems with history of MADDY, and to be scheduled for sleep study. I discussed cardiac care plan which she will include long acting OAC/Eliquis 5 mg twice daily In addition to rate control using calcium channel shivam if needed can add low-dose beta-shivam for better control of ventricular rate I did mention to the patient that she would require synchronized cardioversion if she continues to have atrial flutter. This can be set up as an elective outpatient in 6 to 8 weeks. Meantime also to follow-up with her primary milk wagon driver in [place] in regard to possible future atrial flutter ablation. And to continue on her current treatment. 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 Will continue to monitor and follow-up clinically I also advised to establish with a local milk wagon driver for continuation of cardiac care. Dianne Perez MD,[facility],PSYCHIATRIC HPI Consult Data Date of Consult: 05/30/25 HPI Narrative Reason for Consultation: CAD s/p CABG/TAVR atrial flutter/fibrosing mediastinitis HPI Narrative: VICKIE GONZALEZ, is a 69 F who presents [facility] Medical History (Updated 05/30/25 @ 04:[address] Remy Rai, DO) Hernia Chronic cough Allergic rhinitis Asthma Heart murmur Aortic valve insufficiency HTN (hypertension) Home Medications ???Medication ???Instructions ???Recorded ???Last Taken ???Type aspirin 81 mg tablet,delayed 81 mg PO QDAY 12/22/17 Unknown His tory release (Adult Aspirin Regimen) cholecalciferol (vitamin D3) 125 5,000 unit PO QDAY 12/22/17 Unknow n History mcg (5,000 unit) capsule pravastatin 40 mg tablet 40 mg PO QHS 12/22/17 Unknown Hist ory diphenhydramine HCl 25 mg capsule 25 mg PO QHS PRN sleep 09/02/18 0 05/28/25 History (Benadryl) spacer #1 ea 03/06/20 Unknown Rx Lactobacillus acidophilus 100 mg PO DAILY 05/29/25 Unknown H istory (Acidophilus capsule) ipratropium bromide 21 mcg (0.03 intranasal 05/29/25 05/28/25 Histo ry %) nasal spray levocetirizine 5 mg tablet (24HR 5 mg PO DAILY 05/29/25 Unknown His tory Allergy Relief) losartan 100 mg tablet 100 mg PO DAILY 05/29/25 Unknown H istory magnesium 250 mg tablet 250 mg PO DAILY 05/29/25 Unknown H istory metoprolol succinate 50 mg 50 mg PO DAILY 05/29/25 Unknown Hi story tablet,extended release 24 hr montelukast 10 mg tablet 10 mg PO DAILY 05/29/25 Unknown Hi story vitamin B complex (Vitamins B 1 cap PO DAILY 05/29/25 Unknown Hi story Complex capsule) Allergy/AdvReac Type Severity Reaction Status Date / Time naproxen (From Naprosyn) Allergy Severe Hives Verified 05/29/25 23:10 Family History Mother Diabetes Father MADDY (obstructive sleep apnea) Surgical History S/P TAVR (transcatheter aortic valve replacement) Total knee replacement status Status post double vessel coronary artery bypass Social History Smoking Status: Never smoker second hand exposure: No alcohol intake: current alcohol intake frequency: a few times a month substance use type: former substance user Date of last use: marijuana in college Physical Exam Cardio Cardio Narrative: Patient seen and examined (more content not included)... Normal [facility] Echo Completeon 05-30-2025 Echo Complete [facility] [address] [place] [address] Echo Complete 05/30/25 1035 MR#: [id number] Acct: [id number] Name: VICKIE GONZALEZ Rep #: [id number] : 1955 69 From: Dianne Perez MD Attending Dr: Dr. Shagufta Garcia, DO Status: ADM I N Ordering Dr: Nicol Silva DO Date: 05/30/25 [facility] Sex[facility] F C Admitted: 05/30/25 Reason For Study Reason For Study: AFib/Flutter Procedure This was a 2D Doppler, Color Flow transthoracic echocardiogram. Exam performed portable in patient room. Left Ventricle Moderate eccentric left ventricular hypertrophy. Right Ventricle Normal right ventricle. Normal systolic function. Atria The left atrium is mildly enlarged. The right atrium is moderately enlarged. Mitral Valve There is moderate mitral annular calcification. Mild (1+) mitral valve insufficiency. Tricuspid Valve Normal tricuspid valve. Mild to moderate (1-2+) tricuspid valve insufficiency. Aortic Valve Normal function of aortic valve bioprosthesis/TAVR. Pulmonic Valve The pulmonic valve is not well visualized. Great Vessels The aortic root is not well visualized. Pericardium/Pleural No pericardial effusion. MMode/2D Measurements Calculations LVIDd: 4.2 cm IVSd: 1.8 cm LVOT diam: 2.0 cm LVIDs: 2.9 cm LVPWd: 1.5 cm LVOT area: 3.0 cm2 RVDd: 4.5 cm FS: 32.0 % LAV(MOD-bp): 66.2 ml LVAd ap4: 33.0 cm2 SV(MOD-sp4): 58.0 ml LAV(MOD-bp) Indexed: 28.9 ml/m2 LVLd ap4: 8.2 cm SI(MOD-sp4): 25.3 ml/m2 LAV(MOD-sp2): 51.3 ml EDV(MOD-sp4): 107.6 ml LAV(MOD-sp4): 72.0 ml EDV(sp4-el): 112.4 ml LVAs ap4: 21.1 cm2 LVLs ap4: 7.9 cm ESV(MOD-sp4): 49.6 ml ESV(sp4-el): 47.6 ml EF(MOD-sp4): 53.9 % EF(sp4-el): 57.6 % SV(sp4-el): 64.8 ml LA A4 area: 23.7 cm2 RA A4 area: 30.9 cm2 Doppler Measurements Calculations MV E max jessica: 124.3 cm/sec MV V2 max: 131.9 cm/sec Ao V2 max: 146.3 cm/sec MV max P.0 mmHg Ao max P.7 mmHg MV V2 mean: 66.9 cm/sec Ao V2 mean: 103.8 cm/sec MV mean P.3 mmHg Ao mean P.9 mmHg MV V2 VTI: 28.4 cm Ao V2 VTI: 28.6 cm AV (velocity ratio): 0.65 MVA(VTI): 2.0 cm2 DENNY(I,D): 2.0 cm2 DENNY(V,D): 1.9 cm2 LV V1 max: 92.0 cm/sec SV(LVOT): 56.7 ml TR max jessica: 283.4 cm/sec LV V1 max P.5 mmHg TR max P.1 mmHg LV V1 mean P.9 mmHg LV V1 mean: 64.6 cm/sec LV V1 VTI: 18.7 cm ECHO/Echo Complete Interpretation Summary Normal function of aortic valve bioprosthesis/TAVR Normal aortic valve bioprosthesis function Mildly enlarged left atrium Moderately enlarged right atrium Mild MR No pericardial effusion Mild to moderate TR Contrast echo used Definity. LV inflow/mitral inflow showed only E wave with loss of the atrial contractility patient is in atrial fibrillation No previous echo to compare Ordering Physician: Nicol Silva Performed By: Martin Lin RCS 05/30/251632 Date Dianne Perez MD CC: Dr. Nicol Silva DO; Dr. Kirill Newell MD; Dr. Shagufta Garcia DO Date Dictated: 05/30/251034 Date Transcribed: 05/30/251632 Senior Sharepoint Architect: Signed Normal [facility] Echocardiogram study reportO rdered By: Dianne Perez on 05-30-2025 Study report [facility] [address] [place] [address] Echo Complete 05/30/251034 MR#: [id number] Acct: [id number] Name: VICKIE GONZALEZ Rep #:[id number] : 1955 69 From: Dianne Perez MD Attending Dr: DO Gregory Yeung tatus: ADM IN Ordering Dr: Nicol Silva DO Date: 05/30/25 [facility] Sex: F C Admitted: 05/30/25 Reason For Study Reason For Study: AFib/Flutter Procedure This was a 2D Doppler, Color Flow transthoracic echocardiogram. Exam performed portable in patient room. Left Ventricle Moderate eccentric left ventricular hypertrophy. Right Ventricle Normal right ventricle. Normal systolic function. Atria The left atrium is mildly enlarged. The right atrium is moderately enlarged. Mitral Valve There is moderate mitral annular calcification. Mild (1+) mitral valve insufficiency. Tricuspid Valve Normal tricuspid valve. Mild to moderate (1-2+) tricuspid valve insufficiency. Aortic Valve Normal function of aortic valve bioprosthesis/TAVR. Pulmonic Valve The pulmonic valve is not well visualized. Great Vessels The aortic root is not well visualized. Pericardium/Pleural No pericardial effusion. MMode/2D Measurements & Calculations LVIDd: 4.2 cm IVSd: 1.8 cm LVOT diam: 2.0 cm LVIDs: 2.9 cm LVPWd: 1.5 cm LVOT area: 3.0 cm2 RVDd: 4.5 cm FS: 32.0 % LAV(MOD-bp): 66.2 ml LVAd ap4: 33.0 cm2 SV(MOD-sp4): 58.0 ml LAV(MOD-bp) Indexed: 28.9 ml/m2 LVLd ap4: 8.2 cm SI(MOD-sp4): 25.3 ml/m2 LAV(MOD-sp2): 51.3 ml EDV(MOD-sp4): 107.6 ml LAV(MOD-sp4): 72.0 ml EDV(sp4-el): 112.4 ml LVAs ap4: 21.1 cm2 LVLs ap4: 7.9 cm ESV(MOD-sp4): 49.6 ml ESV(sp4-el): 47.6 ml EF(MOD-sp4): 53.9 % EF(sp4-el): 57.6 % SV(sp4-el): 64.8 ml LA A4 area: 23.7 cm2 RA A4 area: 30.9 cm2 Doppler Measurements & Calculations MV E max jessica: 124.3 cm/sec MV V2 max: 131.9 cm/sec AoV2 max: 146.3 cm/sec MV max P.0 mmHg Aomax P.7 mmHg MV V2 mean: 66.9 cm/sec AoV2 mean: 103.8 cm/sec MV mean P.3 mmHg Aomean P.9 mmHg MV V2 VTI: 28.4 cm AoV2 VTI: 28.6 cm AV(velocity ratio): 0.65 MVA(VTI): 2.0 cm2 DENNY(I,D): 2.0 cm2 DENNY(V,D): 1.9 cm2 LV V1 max: 92.0 cm/sec SV(LVOT): 56.7 ml TRmax jessica: 283.4 cm/sec LV V1 max P.5 mmHg TRmax P.1 mmHg LV V1 mean P.9 mmHg LV V1 mean: 64.6 cm/sec LV V1 VTI: 18.7 cm ECHO/Echo Complete Interpretation Summary Normal function of aortic valve bioprosthesis/TAVR Normal aortic valve bioprosthesis function Mildly enlarged left atrium Moderately enlarged right atrium Mild MR No pericardial effusion Mild to moderate TR Contrast echo used Definity. LV inflow/mitral inflow showed only E wave with loss of the atrial contractilitypatient is in atrial fibrillation No previous echo to compare Ordering Physician: Nicol Silva Performed By: Martin Lin RCS 05/30/25 1633 Date _ Dianne Perez MD CC: Dr. Nicol Silva DO; Dr. Kirill Newell MD; Dr. Shagufta Garcia DO ~ Date Dictated: 05/30/25 1035 Date Transcribed: 05/30/25 163 Senior Sharepoint Architect: Signed [facility] Work Phone: Electrocardiogram reportOrde red By: Francisco Cox on 05-30-2025 EKG study [facility] Cardiovascular Services [address] [place] [address] 12 Lead EKG 05/30/25 0021 MR#: [id number] Acct: [id number] Name: VICKIE GONZALEZ Rep #:[id number] : 1955 69 From: Francisco Cox MD Attending Dr: Dr. Shagufta Garcia DO S tatus: ADM IN Ordering Dr: Remy Rai DO Date: [facility] Sex: F C Admitted: 05/30/25 Test Reason : HTN Blood Pressure : */* mmHG Vent. Rate : 122 BPM Atrial Rate : 244 BPM P-R Int : * ms QRS Dur : 92 ms QT Int : 340 ms P-R-T Axes : 243 65 72 degrees QTcB Int : 484 ms Atrial flutter with 2:1 A-V conduction Nonspecific ST and T wave abnormality Abnormal ECG Confirmed by FRANCISCO COX MD ([id number]), health editor SHONDA LEIGH ([id number]) on 05/30/2025 1:35:34 PM Referred By: FRANCES Confirmed By: FRANCISCO COX MD 05/30/25 1335 Date _ Francisco Cox MD CC: Dr. Kirill Newell MD; Dr. Shagufta Garcia DO; Remy Rai DO ~ Signed [facility] Work Phone: Emergency Department Summary on 05-30-2025 Emergency Department Summary [facility] Medical Records Department [address] [place] [id number] Emergency Department Summary 05/30/25 MR#: [id number] Acct: [id number] Name: VICKIE GONZALEZ Rep #: [id number] : 1955 69 From: Remy Rai DO PCP: Dr. Kirill Newell MD Status:ADM IN Location: [place] [id number] HPI History of Present Illness Chief Complaint: Hypertension Informant: patient and spouse/S.O. Narrative Narrative: Patient is a 69-year-old female with past medical history of hypertension and aortic valve insufficiency as well as coronary artery disease. She states yesterday in the evening she was sitting at rest and began to feel like her heart was racing. She states she tried to sleep but since she does toss and turn throughout the night. She states symptoms were persistent in the morning and so she followed with her family doctor. The family doctor recommended she take extra metoprolol to see if this helped control her symptoms. She reports she has had 150 mg of the metoprolol today and there has been no symptom improvement. She states overall she feels extremely tired/fatigued. She denies any known history of cardiac dysrhythmia. She denies any excessive stimulant use or illicit drug use. [facility] Medical History (Updated 05/30/25 @ 04:[address] Rmey Rai, DO) Hernia Chronic cough Allergic rhinitis Asthma Heart murmur Aortic valve insufficiency HTN (hypertension) Home Medications ???Medication ???Instructions ???Recorded ???Last Taken ???Type aspirin 81 mg tablet,delayed 81 mg PO QDAY 12/22/17 Unknown His tory release (Adult Aspirin Regimen) cholecalciferol (vitamin D3) 125 5,000 unit PO QDAY 12/22/17 Unknow n History mcg (5,000 unit) capsule pravastatin 40 mg tablet 40 mg PO QHS 12/22/17 Unknown Hist ory diphenhydramine HCl 25 mg capsule 25 mg PO QHS PRN sleep 09/02/18 0 05/28/25 History (Benadryl) spacer #1 ea 03/06/20 Unknown Rx Lactobacillus acidophilus 100 mg PO DAILY 05/29/25 Unknown H istory (Acidophilus capsule) ipratropium bromide 21 mcg (0.03 intranasal 05/29/25 05/28/25 Histo ry %) nasal spray levocetirizine 5 mg tablet (24HR 5 mg PO DAILY 05/29/25 Unknown His tory Allergy Relief) losartan 100 mg tablet 100 mg PO DAILY 05/29/25 Unknown H istory magnesium 250 mg tablet 250 mg PO DAILY 05/29/25 Unknown H istory metoprolol succinate 50 mg 50 mg PO DAILY 05/29/25 Unknown Hi story tablet,extended release 24 hr montelukast 10 mg tablet 10 mg PO DAILY 05/29/25 Unknown Hi story vitamin B complex (Vitamins B 1 cap PO DAILY 05/29/25 Unknown Hi story Complex capsule) Allergy/AdvReac Type Severity Reaction Status Date / Time naproxen (From Naprosyn) Allergy Severe Hives Verified 05/29/25 23:10 Family History Mother Diabetes Father MADDY (obstructive sleep apnea) Surgical History S/P TAVR (transcatheter aortic valve replacement) Total knee replacement status Status post double vessel coronary artery bypass Social History Smoking Status: Never smoker second hand exposure: No alcohol intake: current alcohol intake frequency: a few times a month substance use type: former substance user Date of last use: marijuana in college ROS ROS ED Constitutional Constitutional ED: Reports other Details: Positive fatigue ; Denies chills or fever(s) Eyes Eyes: Denies blurry vision or change in vision ENT ENT ED: Denies sore throat Cardiovascular Cardiovascular: Reports palpitations and racing heartbeat; Denies chest pain Respiratory/Chest Respiratory/Chest: Denies cough or dyspnea Gastrointestinal Gastrointestinal: Denies abdominal pain, diarrhea, nausea or vomiting Genitourinary Genitourinary ED: Denies dysuria Musculoskeletal Musculoskeletal: Denies myalgias Integumentary Denies rash Neurologic Neurologic: Denies headache(s) Hematologic/Lymphatic Hematologic/Lymphatic: Denies easy bleeding or easy bruising EXAM Physical Exam Const Vital Signs: 05/29/25 23:10 05/29/25 23:12 05/29/25 23:32 Temperature 98.4 F Temperature Source Oral Pulse Rate 124 H Respiratory Rate 18 Respiratory Effort Short of Breath Respiratory Pattern Normal Blood Pressure 187/116 H 186/113 H Blood Pressure Mean 139 137 Blood Pressure Source Pulse Ox 99 Oxygen Delivery Method Room Air 05/30/25 00:36 05/30/25 01:10 05/30/25 01:15 Temperature 97.4 F L Temperature Source Oral Pulse Rate 123 H 122 H 123 H Respiratory Rate 16 14 18 Respiratory Effort Respiratory Pattern Blood Pressure 168/109 H 161/105 H 161/105 H Blood Pressure Mean 128 123 123 (more content not included)... Normal [facility] Eosinophil percentageOrdered By: Remy Rai on 05-30-2025 Eosinophils/100 WBC (Bld) 2.9 % 0-5 [facility] Erythrocyte distribution wid th ratioOrdered By: Remy Rai on 05-30-2025 Erythrocyte distribution width (RBC) [Ratio] 14.8 % High 11.6-14.6 [facility] Erythrocyte distribution wid th standard deviationOrdered By: Remy Rai on 05-30-2025 Erythrocyte distribution width (RBC) [Ratio] 47.8 fl High 35.1-43.9 [facility] Glomerular filtration rate ( GFR) estimation/1.73 sq m using serum, plasma, or whole bOrdered By: Remy Rai on 05-30-2025 GFR/1.73 sq M.predicted among non-blacks MDRD (S/P/Bld) [Vol rate/Area] 72 mL/min/{1.73_m2} >60 [facility] Comment on above: mL/min/1.73m2 CKD-EP I Creatinine Equation (2020) H AND P Exam - [facility] 05-30-2025 H&P Exam - Hospitalist [facility] Medical Records Department [address] [place] [address] H P Exam - Hospitalist 05/30/25 0208 MR#: [id number] Acct: [id number] Name: VICKIE GONZALEZ Rep #: [id number] : 1955 69 From: Nicol Silva DO PCP: Dr. Kirill Nweell MD Status:ADM IN Location: [place] [address] HPI - General General Date of Admission: 05/30/25 Date of Service: 05/30/25 Chief Complaint: Heart Racing and Palpitations with New-onset Atrial Flutter. HPI Narrative VICKIE GONZALEZ, is a 69 F with a past medical history of essential hypertension; on losartan and metoprolol, hyperlipidemia; on pravastatin, morbid obesity; with BMI of 41 this admission, CAD; s/p CABG x 2 (2000), history of aortic valve insufficiency; s/p TAVR, history of fibrosing mediastinitis, history of asthma; on montelukast, history of allergic rhinitis; on intranasal ipratropium bromide and levocetirizine, history of basal cell carcinoma of LLE (2022); s/p Mohs excision, history of non-pressure chronic ulcer of LLE (2022) and OA; s/p TKR who presents to [facility] complaining of heart racing and palpitations with apparently new-onset atrial flutter. Ms. Gonzalez reports her symptoms began approximately 1 day prior to admission with the abrupt-onset of heart racing with sustained tachycardia in the 120 bpm range. She was evaluated by her PCP and had an EKG that revealed sinus tachycardia and was instructed to take extra metoprolol but if it did not help to relieve her symptoms she should come to the ER for further evaluation and treatment. She admits to waking up very tired and breathless for the past 6 weeks but she denies a history of having been formally diagnosed with obstructive sleep apnea. There was no report of fever, chills, nausea, vomiting, diarrhea, constipation, abdominal pain, chest pain, headache or rash. In the ER she was noted to have EKG evidence of New-onset Atrial Flutter with RVR at 120 bpm requiring treatment with IV diltiazem drip and she was then admitted to the PCU for ongoing care for stay that is expected to extend beyond 2 midnights. [facility] Medical History (Updated 05/30/25 @ 04:[address] Remy Rai, DO) Hernia Chronic cough Allergic rhinitis Asthma Heart murmur Aortic valve insufficiency HTN (hypertension) Home Medications ???Medication ???Instructions ???Recorded ???Last Taken ???Type aspirin 81 mg tablet,delayed 81 mg PO QDAY 12/22/17 Unknown His tory release (Adult Aspirin Regimen) cholecalciferol (vitamin D3) 125 5,000 unit PO QDAY 12/22/17 Unknow n History mcg (5,000 unit) capsule pravastatin 40 mg tablet 40 mg PO QHS 12/22/17 Unknown Hist ory diphenhydramine HCl 25 mg capsule 25 mg PO QHS PRN sleep 09/02/18 0 05/28/25 History (Benadryl) spacer #1 ea 03/06/20 Unknown Rx Lactobacillus acidophilus 100 mg PO DAILY 05/29/25 Unknown H istory (Acidophilus capsule) ipratropium bromide 21 mcg (0.03 intranasal 05/29/25 05/28/25 Histo ry %) nasal spray levocetirizine 5 mg tablet (24HR 5 mg PO DAILY 05/29/25 Unknown His tory Allergy Relief) losartan 100 mg tablet 100 mg PO DAILY 05/29/25 Unknown H istory magnesium 250 mg tablet 250 mg PO DAILY 05/29/25 Unknown H istory metoprolol succinate 50 mg 50 mg PO DAILY 05/29/25 Unknown Hi story tablet,extended release 24 hr montelukast 10 mg tablet 10 mg PO DAILY 05/29/25 Unknown Hi story vitamin B complex (Vitamins B 1 cap PO DAILY 05/29/25 Unknown Hi story Complex capsule) Allergy/AdvReac Type Severity Reaction Status Date / Time naproxen (From Naprosyn) Allergy Severe Hives Verified 05/29/25 23:10 Family History Mother Diabetes Father MADDY (obstructive sleep apnea) Surgical History S/P TAVR (transcatheter aortic valve replacement) Total knee replacement status Status post double vessel coronary artery bypass Social History Smoking Status: Never smoker second hand exposure: No alcohol intake: current alcohol intake frequency: a few times a month substance use type: former substance user Date of last use: marijuana in college ROS ROS Narrative Review of Systems: Constitutional: Patient denies fever or chills. Eyes: Patient denies change in vision or discharge from eyes. ENT: Patient denies runny nose, sore throat or ear pain. Resp: Patient denies shortness of breath or cough. CV: Patient admits to palpitations and heart racing but she denies chest pain. GI: Patient denies abdominal pain, nausea, vomiting, diarrhea or constipation. : Patient denies dysuria or hematuria. MSK: Patient denies arthralgias or myalgias. Skin: Patient denies rash, abscess, wounds or jaundice (more content not included)... Normal [facility] Hematocrit Auto (Bld) [Volum e fraction]Ordered By: Remy Rai on 05-30-2025 Hematocrit (Bld) [Volume fraction] 37.5 % 37-47 [facility] Hemoglobin A1con 05-30-2025 HbA1c (Bld) [Mass fraction] 6.3 % High <=5.6 [facility] Comment on above: Result Comment: Norm al < 5.7 % Prediabetic 5.7 - 6.4 % Diabetic >or= 6.5 % Please note range changes. Performed By: #### L 501.9942 ####[facility] [address] [place], [place], [address] Hemoglobin A1c percentageOrd ered By: Nicol Roldan on 05-30-2025 HbA1c (Bld) [Mass fraction] 6.3 % High <5.7 [facility] Comment on above: Normal < 5.7 % Predi abetic 5.7 - 6.4 % Diabetic >or= 6.5 % Please note range changes. Hemoglobin measurementOrdere d By: Remy Rai on 05-30-2025 Hemoglobin (Bld) [Mass/Vol] 12.4 g/dL 12.0-15.0 [facility] Immature granulocytes/100 WB C Auto (Bld)Ordered By: Remy Rai on 05-30-2025 Immature granulocytes/100 WBC (Bld) 0.300 % 0.0-0.9 [facility] Comment on above: IG% - Immature Granu locytes (promyelocytes, myelocytes and metamyelocytes) > 1% indicates that a LEFT SHIFT is Present. L499.0042on 05-30-2025 Trop T High Sen 20 ng/L High <=14 [facility] Comment on above: Performed By: #### L 499.0042 ####[facility] [address] [facility] [address] [place], [place], [address] L499.0043on 05-30-2025 Trop T High Sen 20 ng/L High <=14 [facility] Comment on above: Performed By: #### L 499.0043 ####[facility] [address] [place], [address] L501.4021on 05-30-2025 Trop T High Sen 21 ng/L High <=14 [facility] Comment on above: Performed By: #### L 501.4021 ####[facility] [address] [place], [place], [id number] LDL calc ser/plasOrdered By: Nicol Roldan on 05-30-2025 Cholesterol in LDL [Mass/Vol] 67 mg/dL [facility] Comment on above: Meqfqmsiqz=094-348 m g/dL & Higher Toxy=581 mg/dL or greater Lipid Profileon 05-30-2025 CHOL:HDL 2.41 Normal [facility] Comment on above: Performed By: #### L 100.0100, L501.2300, L500.4100, L500.4050 #### [facility] [address] [place], [address] Cholesterol [Mass/Vol] 140 mg/dL Normal <=200 [facility] Comment on above: Result Comment: Chol esterol level, Desirable <200 mg/dL Borderline high cholesterol 200-239 mg/dL High cholesterol >=240 mg/dL Recommendations of the NCEP Adult Treatment Panel for the following risk-cutoff thresholds for the [place] population. Performed By: #### L 100.0100, L501.2300, L500.4100, L500.4050 #### [facility] [address] [place], [address] Cholesterol in HDL [Mass/Vol] 58 mg/dL Normal [facility] Comment on above: Result Comment: [place] on[place] Cholesterol Education Program (NCEP) guidelines: <40 mg/dL: Low HDL-cholesterol (major risk factor for CHD) >= 60 mg/dL: High HDL-cholesterol (negative risk factor for CHD) HDL-cholesterol is affected by a number of factors, e.g. smoking, exercise, hormones, sex and age. Performed By: #### L 100.0100, L501.2300, L500.4100, L500.4050 #### [facility] [address] [place], [address] Cholesterol in LDL [Mass/Vol] 67 mg/dL Normal [facility] Comment on above: Result Comment: Bord ljfjkp=816-349 mg/dL Higher Poya=268 mg/dL or greater Performed By: #### L 100.0100, L501.2300, L500.4100, L500.4050 #### [facility] [address] [place], [address] Cholesterol in VLDL [Mass/Vol] 14 mg/dL Normal 5-40 [facility] Comment on above: Performed By: #### L 100.0100, L501.2300, L500.4100, L500.4050 #### [facility] [address] [place], [address] Triglyceride [Mass/Vol] 72 mg/dL Normal [facility] Comment on above: Result Comment: The drugs N-Acetylcysteine and Metamizole may falsely depress this assay. Normal range: <150 mg/dL Borderline High: 150-199 mg/dL High: 200-499 mg/dL Very High: >500 mg/dL Performed By: #### L 100.0100, L501.2300, L500.4100, L500.4050 #### [facility] [address] [place], [address] MCV (mean corpuscular volume ) determinationOrdered By: Remy Rai on 05-30-2025 MCV (RBC) [Entitic vol] 88.2 fL 81-99 [facility] Magnesiumon 05-30-2025 Magnesium [Mass/Vol] 2.0 mg/dL Normal 1.5-2.2 [facility] Comment on above: Performed By: #### L 500.2500, L100.0100, L501.5200, L501.9520 ####[facility] [address] [place], [address] Magnesium measurement (mass/ volume)Ordered By: Remy Rai on 05-30-2025 Magnesium (Unsp spec) [Mass/Vol] 2.0 mg/dL 1.5-2.2 [facility] Mean corpuscular hemoglobin (MCH) determinationOrdered By: Remy Rai on 05-30-2025 MCH (RBC) [Entitic mass] 29.2 pg 27.0-32.0 [facility] Mean corpuscular hemoglobin concentration (MCHC) determinationOrdered By: Remy Rai on 05-30-2025 MCHC (RBC) [Mass/Vol] 33.1 g/dL 32-36 [facility] Mean platelet volume determi nationOrdered By: Remy Rai on 05-30-2025 Platelet mean volume (Bld) [Entitic vol] 11.4 fL 6.2-12.0 [facility] Monocyte percentageOrdered B y: Remy Rai on 05-30-2025 Monocytes/100 WBC (Bld) 8.3 % 0-10 [facility] Neutrophil percentageOrdered By: Remy Rai on 05-30-2025 Neutrophils/100 WBC (Bld) 63.2 % 47-70 [facility] No Panel Informationon 05-30 [facility] Nucleated red blood cell per centageOrdered By: Remy Rai on 05-30-2025 Nucleated RBC/100 WBC (Bld) [Ratio] 0 % 0-5 [facility] Phosphoruson 05-30-2025 Phosphate [Mass/Vol] 3.7 mg/dL Normal 2.7-4.5 [facility] Comment on above: Performed By: #### L 100.0100, L501.2300, L500.4100, L500.4050 #### [facility] [address] [place], [address] Platelet countOrdered By: Polina Rai on 05-30-2025 Platelets (Bld) [#/Vol] 223 10*3/uL 150-450 [facility] Potassium measurement (mass/ volume)Ordered By: Remy Rai on 05-30-2025 Potassium (Unsp spec) [Mass/Vol] 3.9 mmol/L 3.3-5.1 [facility] RBC Auto (Bld) [#/Vol]Ordere d By: Remy Rai on 05-30-2025 RBC (Bld) [#/Vol] 4.25 10*6/uL 4.2-5.4 [facility] Screening total cholesterol/ high density lipoprotein (HDL) cholesterol ratioOrdered By: Nicol Roldan on 05-30-2025 Cholesterol.total/Choles terol in HDL [Mass ratio] 2.41 {ratio} [facility] Serum creatinine measurement (mass/volume)Ordered By: Remy Rai on 05-30-2025 Creatinine [Mass/Vol] 0.86 mg/dL 0.70-1.20 [facility] Serum glucose measurement (m ass/volume)Ordered By: Remy Rai on 05-30-2025 Glucose [Mass/Vol] 105 mg/dL High 70-99 [facility] Serum or plasma calcium erasmo urement (mass/volume)Ordered By: Remy Rai on 05-30-2025 Calcium [Mass/Vol] 9.4 mg/dL 7.6-11.0 [facility] Serum or plasma cholesterol in HDL measurement (mass/volume)Ordered By: Nicol Roldan on 05-30-2025 Cholesterol in HDL [Mass/Vol] 58 mg/dL >40 [facility] Comment on above: National Cholesterol Education Program (NCEP) guidelines:<40 mg/dL: Low HDL-cholesterol (major risk factor for CHD)>= 60 mg/dL: High HDL-cholesterol (negative risk factor for CHD)HDL-cholesterol is affected by a number of factors, e.g. smoking, exercise, hormones, sex and age. Serum or plasma cholesterol measurement (mass/volume)Ordered By: Nicol Roldan on 05-30-2025 Cholesterol [Mass/Vol] 140 mg/dL <201 [facility] Comment on above: Cholesterol level, D esirable <200 mg/dLBorderline high cholesterol 200-239 mg/dLHigh cholesterol >=240 mg/dLRecommendations of the NCEP Adult Treatment Panel for the following risk-cutoff thresholds for the [place] population. Serum or plasma urea nitroge n measurement (mass/volume)Ordered By: Remy Rai on 05-30-2025 Urea nitrogen [Mass/Vol] 16 mg/dL 4-19 [facility] Sodium levelOrdered By: Dev Rai on 05-30-2025 Sodium [Moles/Vol] 138 mmol/L 133-145 [facility] TSH DL <= 0.005 mIU/L QnOrde red By: Remy Rai on 05-30-2025 TSH Qn 3.020 uIU/mL 0.300-4.200 [facility] Thyroid Stim Hormone (TSH)on 05-30-2025 TSH 3.020 uIU/mL Normal 0.300-4.200 [facility] Comment on above: Performed By: #### L 500.2500, L100.0100, L501.5200, L501.9520 ####[facility] [address] [place], [place], [phone] Triglycerides measurementOrd ered By: Nicol Roldan on 05-30-2025 Triglyceride [Mass/Vol] 72 mg/dL <199 [facility] Comment on above: The drugs N-Acetylcy steine and Metamizole may falsely depress this assay. Normal range: <150 mg/dLBorderline High: 150-199 mg/dLHigh: 200-499 mg/dLVery High: >500 mg/dL Troponin T.cardiac [Mass/vol ume] in Serum or Plasma by High sensitivity methodOrdered By: Nicol Roldan on 05-30-2025 Troponin T.cardiac High sensitivity method [Mass/Vol] 20 ng/L High <14 [facility] Troponin T.cardiac High sensitivity method [Mass/Vol] 20 ng/L High <14 [facility] Troponin T.cardiac High sensitivity method [Mass/Vol] 21 ng/L High <14 [facility] White blood cell (WBC) count Ordered By: Remy Rai on 05-30-2025 WBC (Bld) [#/Vol] 9.1 10*3/uL 4.4-11.0 [facility] CBC W/Diff, Automatedon 12-01 Absolute Lymph 1.60 X10 3/uL Normal 0.83-4.51 [facility] Comment on above: Order Comment: Order Date: 12/13/24Order Info: [id number] - CBCDOrder Info: [id number] - SED Performed By: #### L 501.9520, L501.9985, L509.1000, L101.9900, L100.0100, L500.4050, L502.0250, L506.1000, L500.4100 ####[facility] [address] [place], [address] Absolute Neut 3.8 X10 3/uL Normal 2.0-7.7 [facility] Comment on above: Order Comment: Order Date: 12/13/24Order Info: [id number] - CBCDOrder Info: [id number] - SED Performed By: #### L 501.9520, L501.9985, L509.1000, L101.9900, L100.0100, L500.4050, L502.0250, L506.1000, L500.4100 ####[facility] [address] [place], [address] Basophils/100 WBC (Bld) 0.7 % Normal 0-1 [facility] Comment on above: Order Comment: Order Date: 12/13/24Order Info: [id number] - CBCDOrder Info: [id number] - SED Performed By: #### L 501.9520, L501.9985, L509.1000, L101.9900, L100.0100, L500.4050, L502.0250, L506.1000, L500.4100 ####[facility] [address] [place], [address] Eosinophils/100 WBC (Bld) 3.0 % Normal 0-5 [facility] Comment on above: Order Comment: Order Date: 12/13/24Order Info: [id number] - CBCDOrder Info: [id number] - SED Performed By: #### L 501.9520, L501.9985, L509.1000, L101.9900, L100.0100, L500.4050, L502.0250, L506.1000, L500.4100 ####[facility] [address] [place], [address] Erythrocyte distribution width (RBC) [Ratio] 14.6 % Normal 11.6-14.6 [facility] Comment on above: Order Comment: Order Date: 12/13/24Order Info: [id number]- - CBCDOrder Info: [id number] - SED Performed By: #### L 501.9520, L501.9985, L509.1000, L101.9900, L100.0100, L500.4050, L502.0250, L506.1000, L500.4100 ####[facility] [address] [place], [place], [phone] Hematocrit (Bld) [Volume fraction] 36.5 % Low 37-47 [facility] Comment on above: Order Comment: Order Date: 12/13/24Order Info: [id number] - CBCDOrder Info: [id number] - SED Performed By: #### L 501.9520, L501.9985, L509.1000, L101.9900, L100.0100, L500.4050, L502.0250, L506.1000, L500.4100 ####[facility] [address] [place], [place], [phone] Hemoglobin (Bld) [Mass/Vol] 11.6 g/dL Low 12.0-15.0 [facility] Comment on above: Order Comment: Order Date: 12/13/24Order Info: [id number]- - CBCDOrder Info: [id number] - SED Performed By: #### L 501.9520, L501.9985, L509.1000, L101.9900, L100.0100, L500.4050, L502.0250, L506.1000, L500.4100 ####[facility] [address] [place], [place], [phone] IG% 0.300 Normal 0.0-0.9 [facility] Comment on above: Order Comment: Order Date: 12/13/24Order Info: [id number] - CBCDOrder Info: [id number] - SED Result Comment: IG% - Immature Granulocytes (promyelocytes, myelocytes and metamyelocytes) > 1% indicates that a LEFT SHIFT is Present. Performed By: #### L 501.9520, L501.9985, L509.1000, L101.9900, L100.0100, L500.4050, L502.0250, L506.1000, L500.4100 ####[facility] [address] [place], [address] Lymphocytes/100 WBC (Bld) 26.8 % Normal 19-41 [facility] Comment on above: Order Comment: Order Date: 12/13/24Order Info: [id number]- - CBCDOrder Info: [id number] - SED Performed By: #### L 501.9520, L501.9985, L509.1000, L101.9900, L100.0100, L500.4050, L502.0250, L506.1000, L500.4100 ####[facility] [address] [place], [address] MCH (RBC) [Entitic mass] 29.0 pg Normal 27.0-32.0 [facility] Comment on above: Order Comment: Order Date: 12/13/24Order Info: [id number] - CBCDOrder Info: [id number] - SED Performed By: #### L 501.9520, L501.9985, L509.1000, L101.9900, L100.0100, L500.4050, L502.0250, L506.1000, L500.4100 ####[facility] [address] [place], [address] MCHC (RBC) [Mass/Vol] 31.8 g/dL Low 32-36 [facility] Comment on above: Order Comment: Order Date: 12/13/24Order Info: [id number]- - CBCDOrder Info: [id number] - SED Performed By: #### L 501.9520, L501.9985, L509.1000, L101.9900, L100.0100, L500.4050, L502.0250, L506.1000, L500.4100 ####[facility] [address] [place], [address] MCV (RBC) [Entitic vol] 91.3 fL Normal 81-99 [facility] Comment on above: Order Comment: Order Date: 12/13/24Order Info: [id number] - CBCDOrder Info: [id number] - SED Performed By: #### L 501.9520, L501.9985, L509.1000, L101.9900, L100.0100, L500.4050, L502.0250, L506.1000, L500.4100 ####[facility] [address] [place], [address] Monocytes/100 WBC (Bld) 6.2 % Normal 0-10 [facility] Comment on above: Order Comment: Order Date: 12/13/24Order Info: [id number] - CBCDOrder Info: [id number] - SED Performed By: #### L 501.9520, L501.9985, L509.1000, L101.9900, L100.0100, L500.4050, L502.0250, L506.1000, L500.4100 ####[facility] [address] [place], [address] Neutrophils/100 WBC (Bld) 63.0 % Normal 47-70 [facility] Comment on above: Order Comment: Order Date: 12/13/24Order Info: [id number]- - CBCDOrder Info: [id number] - SED Performed By: #### L 501.9520, L501.9985, L509.1000, L101.9900, L100.0100, L500.4050, L502.0250, L506.1000, L500.4100 ####[facility] [address] [place], [address] Nucleated RBC (Bld) [#/Vol] 0 10*3/uL Normal 0-5 [facility] Comment on above: Order Comment: Order Date: 12/13/24Order Info: [id number] - CBCDOrder Info: [id number] - SED Performed By: #### L 501.9520, L501.9985, L509.1000, L101.9900, L100.0100, L500.4050, L502.0250, L506.1000, L500.4100 ####[facility] [address] [place], [address] Platelet mean volume (Bld) [Entitic vol] 11.8 fL Normal 6.2-12.0 [facility] Comment on above: Order Comment: Order Date: 12/13/24Order Info: [id number] - CBCDOrder Info: [id number] - SED Performed By: #### L 501.9520, L501.9985, L509.1000, L101.9900, L100.0100, L500.4050, L502.0250, L506.1000, L500.4100 ####[facility] [address] [place], [address] Platelets (Bld) [#/Vol] 201 10*3/uL Normal 150-450 [facility] Comment on above: Order Comment: Order Date: 12/13/24Order Info: [id number] - CBCDOrder Info: [id number] - SED Performed By: #### L 501.9520, L501.9985, L509.1000, L101.9900, L100.0100, L500.4050, L502.0250, L506.1000, L500.4100 ####[facility] [address] [place], [address] RBC (Bld) [#/Vol] 4.00 10*6/uL Low 4.2-5.4 [facility] Comment on above: Order Comment: Order Date: 12/13/24Order Info: [id number] - CBCDOrder Info: [id number] - SED Performed By: #### L 501.9520, L501.9985, L509.1000, L101.9900, L100.0100, L500.4050, L502.0250, L506.1000, L500.4100 ####[facility] [address] [place], [address] RDW SD 47.9 fl High 35.1-43.9 [facility] Comment on above: Order Comment: Order Date: 12/13/24Order Info: [id number] - CBCDOrder Info: [id number] - SED Performed By: #### L 501.9520, L501.9985, L509.1000, L101.9900, L100.0100, L500.4050, L502.0250, L506.1000, L500.4100 ####[facility] [address] [place], [address] WBC (Bld) [#/Vol] 6.0 10*3/uL Normal 4.4-11.0 [facility] Comment on above: Order Comment: Order Date: 12/13/24Order Info: [id number] - CBCDOrder Info: [id number] - SED Performed By: #### L 501.9520, L501.9985, L509.1000, L101.9900, L100.0100, L500.4050, L502.0250, L506.1000, L500.4100 ####[facility] [address] [place], [place], [phone] Comprehensive Metabolic Prof [facility] 12-19-2024 Albumin [Mass/Vol] 3.1 g/dL Low 3.2-5.0 [facility] Comment on above: Order Comment: Order Date: 12/13/24Order Info: [id number] - CMPOrder Info: [id number] - LIPIDOrder Info: [id number] - TSH Performed By: #### L 501.9520, L501.9985, L509.1000, L101.9900, L100.0100, L500.4050, L502.0250, L506.1000, L500.4100 ####[facility] [address] [place], [address] Albumin/Globulin [Mass ratio] 0.7 {ratio} Low 0.9-2.4 [facility] Comment on above: Order Comment: Order Date: 12/13/24Order Info: [id number] - CMPOrder Info: [id number] - LIPIDOrder Info: [id number] - TSH Performed By: #### L 501.9520, L501.9985, L509.1000, L101.9900, L100.0100, L500.4050, L502.0250, L506.1000, L500.4100 ####[facility] [address] [place], [address] ALK P 119 U/L High 45-117 [facility] Comment on above: Order Comment: Order Date: 12/13/24Order Info: [id number] - CMPOrder Info: [id number] - LIPIDOrder Info: [id number] - TSH Performed By: #### L 501.9520, L501.9985, L509.1000, L101.9900, L100.0100, L500.4050, L502.0250, L506.1000, L500.4100 ####[facility] [address] [place], [address] ALT [Catalytic activity/Vol] 24 U/L Normal 13-56 [facility] Comment on above: Order Comment: Order Date: 12/13/24Order Info: [id number] - CMPOrder Info: [id number] - LIPIDOrder Info: [id number] - TSH Performed By: #### L 501.9520, L501.9985, L509.1000, L101.9900, L100.0100, L500.4050, L502.0250, L506.1000, L500.4100 ####[facility] [address] [place], [address] AST [Catalytic activity/Vol] 24 U/L Normal 15-37 [facility] Comment on above: Order Comment: Order Date: 12/13/24Order Info: [id number] - CMPOrder Info: [id number] - LIPIDOrder Info: [id number] - TSH Performed By: #### L 501.9520, L501.9985, L509.1000, L101.9900, L100.0100, L500.4050, L502.0250, L506.1000, L500.4100 ####[facility] [address] [place], [place], [phone] Bilirubin [Mass/Vol] 0.70 mg/dL Normal 0.20-1.00 [facility] Comment on above: Order Comment: Order Date: 12/13/24Order Info: [id number] - CMPOrder Info: [id number] - LIPIDOrder Info: [id number] - TSH Result Comment: For patients on eltrombopag therapy, use of Dimension [place] TBIL is not recommended. Performed By: #### L 501.9520, L501.9985, L509.1000, L101.9900, L100.0100, L500.4050, L502.0250, L506.1000, L500.4100 ####[facility] [address] [place], [place], [phone] BUN/CRE 18.9 RATIO Normal 10-20 [facility] Comment on above: Order Comment: Order Date: 12/13/24Order Info: [id number] - CMPOrder Info: [id number] - LIPIDOrder Info: [id number] - TSH Performed By: #### L 501.9520, L501.9985, L509.1000, L101.9900, L100.0100, L500.4050, L502.0250, L506.1000, L500.4100 ####[facility] [address] [place], [place], [id number] [place],Total 9.1 mg/dL Normal 8.5-10.1 [facility] Comment on above: Order Comment: Order Date: 12/13/24Order Info: [id number] - CMPOrder Info: [id number] - LIPIDOrder Info: [id number] - TSH Performed By: #### L 501.9520, L501.9985, L509.1000, L101.9900, L100.0100, L500.4050, L502.0250, L506.1000, L500.4100 ####[facility] [address] [place], [place], [phone] Chloride [Moles/Vol] 107 mmol/L Normal 98-107 [facility] Comment on above: Order Comment: Order Date: 12/13/24Order Info: [id number] - CMPOrder Info: [id number] - LIPIDOrder Info: [id number] - TSH Performed By: #### L 501.9520, L501.9985, L509.1000, L101.9900, L100.0100, L500.4050, L502.0250, L506.1000, L500.4100 ####[facility] [address] [place], [place], [id number] CO2 [Moles/Vol] 28.0 mmol/L Normal 21.0-32.0 [facility] Comment on above: Order Comment: Order Date: 12/13/24Order Info: [id number] - CMPOrder Info: [id number] - LIPIDOrder Info: [id number] - TSH Performed By: #### L 501.9520, L501.9985, L509.1000, L101.9900, L100.0100, L500.4050, L502.0250, L506.1000, L500.4100 ####[facility] [address] [place], [place], [phone] Creatinine [Mass/Vol] 0.85 mg/dL Normal 0.55-1.02 [facility] Comment on above: Order Comment: Order Date: 12/13/24Order Info: [id number] - CMPOrder Info: [id number] - LIPIDOrder Info: [id number] - TSH Result Comment: The validity of the calculated GFR GFRAA in patients over 70 years has not been determined. Clinical correlation is essential. Performed By: #### L 501.9520, L501.9985, L509.1000, L101.9900, L100.0100, L500.4050, L502.0250, L506.1000, L500.4100 ####[facility] [address] [place], [place], [address] EST GFR - AA 85 mL/min Normal >60 [facility] Comment on above: Order Comment: Order Date: 12/13/24Order Info: [id number] - CMPOrder Info: [id number] - LIPIDOrder Info: [id number] - TSH Result Comment: Afri can Ivorian GFR Calc Performed By: #### L 501.9520, L501.9985, L509.1000, L101.9900, L100.0100, L500.4050, L502.0250, L506.1000, L500.4100 ####[facility] [address] [place], [address] GAP 2 Low 5-15 [facility] Comment on above: Order Comment: Order Date: 12/13/24Order Info: [id number] - CMPOrder Info: [id number] - LIPIDOrder Info: [id number] - TSH Performed By: #### L 501.9520, L501.9985, L509.1000, L101.9900, L100.0100, L500.4050, L502.0250, L506.1000, L500.4100 ####[facility] [address] [place], [place], [address] GFR/1.73 sq M.predicted among non-blacks MDRD (S/P/Bld) [Vol rate/Area] 71 mL/min/{1.73_m2} Normal >60 [facility] Comment on above: Order Comment: Order Date: 12/13/24Order Info: [id number] - CMPOrder Info: [id number] - LIPIDOrder Info: [id number] - TSH Result Comment: Non- GFR Calc Performed By: #### L 501.9520, L501.9985, L509.1000, L101.9900, L100.0100, L500.4050, L502.0250, L506.1000, L500.4100 ####[facility] [address] [place], [address] Globulin (S) [Mass/Vol] 4.6 g/dL High 2.2-4.2 [facility] Comment on above: Order Comment: Order Date: 12/13/24Order Info: [id number] - CMPOrder Info: [id number] - LIPIDOrder Info: [id number] - TSH Performed By: #### L 501.9520, L501.9985, L509.1000, L101.9900, L100.0100, L500.4050, L502.0250, L506.1000, L500.4100 ####[facility] [address] [place], [address] Glucose [Mass/Vol] 96 mg/dL Normal 74-106 [facility] Comment on above: Order Comment: Order Date: 12/13/24Order Info: [id number] - CMPOrder Info: [id number] - LIPIDOrder Info: [id number] - TSH Performed By: #### L 501.9520, L501.9985, L509.1000, L101.9900, L100.0100, L500.4050, L502.0250, L506.1000, L500.4100 ####[facility] [address] [place], [address] Potassium [Moles/Vol] 4.3 mmol/L Normal 3.5-5.1 [facility] Comment on above: Order Comment: Order Date: 12/13/24Order Info: [id number] - CMPOrder Info: [id number] - LIPIDOrder Info: [id number] - TSH Performed By: #### L 501.9520, L501.9985, L509.1000, L101.9900, L100.0100, L500.4050, L502.0250, L506.1000, L500.4100 ####[facility] [address] [place], [address] Sodium [Moles/Vol] 137 mmol/L Normal 136-145 [facility] Comment on above: Order Comment: Order Date: 12/13/24Order Info: [id number] - CMPOrder Info: [id number] - LIPIDOrder Info: [id number] - TSH Performed By: #### L 501.9520, L501.9985, L509.1000, L101.9900, L100.0100, L500.4050, L502.0250, L506.1000, L500.4100 ####[facility] [address] [place], [address] T PROT 7.7 g/dL Normal 6.4-8.2 [facility] Comment on above: Order Comment: Order Date: 12/13/24Order Info: [id number] - CMPOrder Info: [id number] - LIPIDOrder Info: [id number] - TSH Performed By: #### L 501.9520, L501.9985, L509.1000, L101.9900, L100.0100, L500.4050, L502.0250, L506.1000, L500.4100 ####[facility] [address] [place], [address] Urea nitrogen [Mass/Vol] 16 mg/dL Normal 7-18 [facility] Comment on above: Order Comment: Order Date: 12/13/24Order Info: [id number] - CMPOrder Info: [id number] - LIPIDOrder Info: [id number] - TSH Performed By: #### L 501.9520, L501.9985, L509.1000, L101.9900, L100.0100, L500.4050, L502.0250, L506.1000, L500.4100 ####[facility] [address] [place], [place], [phone] Erythrocyte Sed Rateon 12-19 SED RATE 37 mm/hr High 0-30 [facility] Comment on above: Order Comment: Order Date: 12/13/24Order Info: [id number] - CBCDOrder Info: [id number] - SED Performed By: #### L 501.9520, L501.9985, L509.1000, L101.9900, L100.0100, L500.4050, L502.0250, L506.1000, L500.4100 ####[facility] [address] [place], [place], [phone]) Hemoglobin A1con 12-19-2024 HbA1c (Bld) [Mass fraction] 5.9 % High 3.8-5.6 [facility] Comment on above: Order Comment: Order Date: 12/13/24Order Info: [id number] - A1C Result Comment: Norm al < 5.7 % Prediabetic 5.7 - 6.4 % Diabetic >or= 6.5 % Please note range changes. Performed By: #### L 501.9520, L501.9985, L509.1000, L101.9900, L100.0100, L500.4050, L502.0250, L506.1000, L500.4100 ####[facility] [address] [place], [place], [phone] Lipid Profileon 12-19-2024 Cholesterol [Mass/Vol] 150 mg/dL Normal 200 [facility] Comment on above: Order Comment: Order Date: 12/13/24Order Info: [id number] - CMPOrder Info: [id number] - LIPIDOrder Info: [id number] - TSH Result Comment: <200 mg/dL Desirable 200-240 mg/dL Borderline >240 mg/dL High Risk Performed By: #### L 501.9520, L501.9985, L509.1000, L101.9900, L100.0100, L500.4050, L502.0250, L506.1000, L500.4100 ####[facility] [address] [place], [place], [phone] Cholesterol in HDL [Mass/Vol] 73 mg/dL Normal [facility] Comment on above: Order Comment: Order Date: 12/13/24Order Info: [id number] - CMPOrder Info: [id number] - LIPIDOrder Info: [id number] - TSH Result Comment: The drugs N-Acetylcysteine and Metamizole may falsely depress this assay. Reference Range HDL <40 mg/dL Low HDL Cholesterol HDL >or= 60 mg/dL High HDL Cholesterol Performed By: #### L 501.9520, L501.9985, L509.1000, L101.9900, L100.0100, L500.4050, L502.0250, L506.1000, L500.4100 ####[facility] [address] [place], [address] Cholesterol in LDL [Mass/Vol] 62 mg/dL Normal 0-130 [facility] Comment on above: Order Comment: Order Date: 12/13/24Order Info: [id number] - CMPOrder Info: [id number] - LIPIDOrder Info: [id number] - TSH Performed By: #### L 501.9520, L501.9985, L509.1000, L101.9900, L100.0100, L500.4050, L502.0250, L506.1000, L500.4100 ####[facility] [address] [place], [address] Cholesterol in VLDL [Mass/Vol] 15 mg/dL Normal 5-40 [facility] Comment on above: Order Comment: Order Date: 12/13/24Order Info: [id number] - CMPOrder Info: [id number] - LIPIDOrder Info: [id number] - TSH Performed By: #### L 501.9520, L501.9985, L509.1000, L101.9900, L100.0100, L500.4050, L502.0250, L506.1000, L500.4100 ####[facility] [address] [place], [address] Triglyceride [Mass/Vol] 75 mg/dL Normal [facility] Comment on above: Order Comment: Order Date: 12/13/24Order Info: [id number] - CMPOrder Info: [id number] - LIPIDOrder Info: [id number] - TSH Result Comment: The drugs N-Acetylcysteine and Metamizole may falsely depress this assay. Serum Triglycerides Reference Interval Normal <150 mg/dL Borderline high 150 - 199 mg/dL High 200 - 499 mg/dL Very High > or = 500 mg/dL Performed By: #### L 501.9520, L501.9985, L509.1000, L101.9900, L100.0100, L500.4050, L502.0250, L506.1000, L500.4100 ####[facility] [address] [place], [place], [phone] Microalb:Creat Ratio,Random URon 12-19-2024 Creatinine [Mass/Vol] 71.60 mg/dL Normal NO RAN GE EST. [facility] Comment on above: Order Comment: Order Date: 12/13/24Order Info: [id number] - MIACRE Performed By: #### L 501.9520, L501.9985, L509.1000, L101.9900, L100.0100, L500.4050, L502.0250, L506.1000, L500.4100 ####[facility] [address] [place], [place], [id number] MALB:CRE 27.8 mg/g CRE Normal <30 mg/g CRE [facility] Comment on above: Order Comment: Order Date: 12/13/24Order Info: [id number] - MIACRE Performed By: #### L 501.9520, L501.9985, L509.1000, L101.9900, L100.0100, L500.4050, L502.0250, L506.1000, L500.4100 ####[facility] [address] [place], [place], [phone] MICROALBUMIN,UR 19.9 mg/L Normal NO RANGE EST. [facility] Comment on above: Order Comment: Order Date: 12/13/24Order Info: [id number] - MIACRE Performed By: #### L 501.9520, L501.9985, L509.1000, L101.9900, L100.0100, L500.4050, L502.0250, L506.1000, L500.4100 ####[facility] [address] [place], [address] PTHINon 12-19-2024 PTH 54.7 pg/mL Normal 18.4-80.1 [facility] Comment on above: Order Comment: Order Date: 12/13/24Order Info: [id number] - PTHIN Performed By: #### L 501.9520, L501.9985, L509.1000, L101.9900, L100.0100, L500.4050, L502.0250, L506.1000, L500.4100 ####[facility] [address] [place], [address] Thyroid Stim Hormone (TSH)on 12-19-2024 TSH 2.030 uIU/mL Normal 0.358-3.740 [facility] Comment on above: Order Comment: Order Date: 12/13/24Order Info: [id number] - CMPOrder Info: [id number] - LIPIDOrder Info: [id number] - TSH Performed By: #### L 501.9520, L501.9985, L509.1000, L101.9900, L100.0100, L500.4050, L502.0250, L506.1000, L500.4100 ####[facility] [address] [place] [place], [address] Vitamin D,25 Hydroxyon 12-19 Vitamin D 25-OH 42.7 ng/mL Normal [facility] Comment on above: Order Comment: Order Date: 12/13/24Order Info: [id number] - VITD25 Result Comment: Bethany min D 25(OH) Status Range Deficiency <20 ng/mL (50nmol/L) Insufficiency 20 - 30 ng/mL (50 - 75 nmol/L) Sufficiency 30 - 100 ng/mL (75 - 250 nmol/L) Toxicity >100 ng/mL (>250 nmol/L) Performed By: #### L 501.9520, L501.9985, L509.1000, L101.9900, L100.0100, L500.4050, L502.0250, L506.1000, L500.4100 ####[facility] [address] [place], [address] XR KNEE RIGHT 2 VIEWS (STAND KATRIN)on [...] ThuJan 26, 2024 4:57:48 PM EST Normal [facility] Comment on above: Order Comment: Injur y/Trauma [...] unremarkable. IMPRESSION: Severe right knee tricompartmental osteoarthritis. [employer] Workstation ID: [id number] Dictated by: ROBE COLIN on ThuJan 07, 2024 2:25:02 PM EST Transcribed by: LUCY NEWELL on ThuJan 07, 2024 2:25:02 PM EST Finalized by: ORBE COLIN on Laila Jan 07, 2024 10:52:02 PM EST Normal [facility] Comment on above: Order Comment: Nicolas ayers only schedule at [facility]. Do not schedule Ct scan appointment with patient. Ordering Doctor's office will call to schedule Ct scan appointment. Injury/Trauma or Illness?:Illness/Other How long have you had these symptoms (acute/chronic)?:Acute Reason for exam?:pre operative for upcoming Rt TKR Type of Exam?:Initial Additional signs and symptoms?:. Basophil percentageOrdered B y: Kirill Newell on 11-12-2023 Bilirubin [Mass/Vol] 0.70 mg/dL 0.20-1.00 [facility] Comment on above: For patients on eltr ombopag therapy, use of Dimension [place] TBIL is not recommended. Chloride [Moles/Vol] 107 mmol/L 98-107 [facility] Glucose [Mass/Vol] 97 mg/dL 74-106 [facility] Potassium [Moles/Vol] 4.3 mmol/L 3.5-5.1 [facility] Protein [Mass/Vol] 8.7 g/dL 6.4-8.2 [facility] Sodium [Moles/Vol] 140 mmol/L 136-145 [facility] WBC (Bld) [#/Vol] 7.7 10*3/uL 4.4-11.0 [facility] Blood erythrocytes count (nu mber/volume)Ordered By: Kirill Newell on 11-12-2023 RBC (Bld) [#/Vol] 4.16 10*6/uL 4.2-5.4 [facility] Blood hemoglobin measurement (mass/volume)Ordered By: Kirill Newell on 11-12-2023 Hemoglobin (Bld) [Mass/Vol] 11.5 g/dL 12.0-15.0 [facility] Blood platelet mean volumeOr dered By: Kirill Newell on 11-12-2023 Platelet mean volume (Bld) [Entitic vol] 11.2 fL 6.2-12.0 [facility] Determination of erythrocyte mean corpuscular volume (MCV)Ordered By: Kirill Newell on 11-12-2023 MCV (RBC) [Entitic vol] 89.2 fL 81-99 [facility] Erythrocyte sedimentation ra teOrdered By: Kirill Newell on 11-12-2023 ESR (Bld) [Velocity] 48 mm/h 0-30 [facility] Hematocrit Auto (Bld) [Volum e fraction]Ordered By: Kirill Newell on 11-12-2023 Hematocrit (Bld) [Volume fraction] 37.1 % 37-47 [facility] Laboratory - Chemistry and C hemistry - challengeOrdered By: Kirill Newell on 11-12-2023 ALP [Catalytic activity/Vol] 110 U/L 45-117 [facility] ALT [Catalytic activity/Vol] 21 U/L 13-56 [facility] CO2 [Moles/Vol] 28.0 mmol/L 21.0-32.0 [facility] Globulin (S) [Mass/Vol] 5.5 g/dL 2.2-4.2 [facility] Urea nitrogen/Creatinine [Mass ratio] 19.0 mg/mg 10-20 [facility] Laboratory - Hematology and Cell countsOrdered By: Kirill Newell on 11-12-2023 Erythrocyte distribution width (RBC) [Entitic vol] 51.8 fL 35.1-43.9 [facility] Erythrocyte distribution width (RBC) [Ratio] 15.9 % 11.6-14.6 [facility] MCH (RBC) [Entitic mass] 27.6 pg 27.0-32.0 [facility] MCHC Auto (RBC) [Mass/Vol]Or dered By: Kirill Newell on 11-12-2023 MCHC (RBC) [Mass/Vol] 31.0 g/dL 32-36 [facility] No Panel InformationOrdered By: Kirill Newell on 11-12-2023 Addendum Document Comment . [facility] Comment on above: The SPE pattern demo nstrates elevation of regionscontaining acute phase proteins suggesting anacute/subacute inflammatory response. Some conditions inwhich this pattern has been observed include: bacterial,viral or parasitic infection; mechanical, physical orchemical trauma; and cardiac failure. The gamma globulinregion is unremarkable and evidence of monoclonal proteinis not apparent.Performed at: [facility] [address] [id number] Director: Ha Gutierrez PhD, Phone: [phone] Hrorg-2-Riwahqsup 0.4 g/dL 0.0-0.4 [facility] Pusyi-3-Blriwznoo 1.2 g/dL 0.4-1.0 [facility] Anti-Nuclear Antibody Screen Negative Negative [facility] Comment on above: Performed at: [facility] [address] [id number] Director: Ha Gutierrez PhD, Phone: [phone] Estimated GFR (MDRD) Amer 86 mL/min >60 [facility] Comment on above: GFR Calc Estimated GFR (MDRD) Non-Af Amer 71 mL/min >60 [facility] Comment on above: Non- GFR Calc Gamma Globulins 1.8 g/dL 0.4-1.8 [facility] Parathyroid Hormone (Intact) 69.9 pg/mL 18.4-80.1 [facility] Urine Microalbumin/Creatinine Ratio 70.0 mg/g CRE <30 [facility] Vitamin D 25-Hydroxy 37.3 ng/mL [facility] Comment on above: Vitamin D 25(OH) Sta tus Range Deficiency <20 ng/mL (50nmol/L) Insufficiency 20 - 30 ng/mL (50 - 75 nmol/L) Sufficiency 30 - 100 ng/mL (75 - 250 nmol/L) Toxicity >100 ng/mL (>250 nmol/L) Platelets bldOrdered By: Theresa Newell on 11-12-2023 Platelets (Bld) [#/Vol] 272 10*3/uL 150-450 [facility] Protein Fractions Elph [Inte rp]Ordered By: Kirill Newell on 11-12-2023 Protein Fractions [Interp] Comment . [facility] Comment on above: Protein electrophore sis scan will follow via computer,mail, or parachute rigger delivery. Serum albumin to globulin ra allen by protein electrophoresisOrdered By: Kirill Newell on 11-12-2023 Albumin/Globulin Elph [Mass ratio] 0.7 0.7-1.7 [facility] Serum globulin measurement ( mass/volume)Ordered By: Kirill Newell on 11-12-2023 Globulin (S) [Mass/Vol] 4.6 g/dL 2.2-3.9 [facility] Serum or plasma C reactive p rotein measurement (mass/volume)Ordered By: Kirill Newell on 11-12-2023 CRP [Mass/Vol] 15.50 mg/L 0.0-3.0 [facility] Comment on above: C-Reactive Protein ( CRP) provides useful information for thediagnosis, therapy and monitoring of inflammatory processesand associated diseases. For the evaluation of Relative Riskfor Cardiovascular Disease, a High Sensitivity CRP (HSCRP)should be ordered. Serum or plasma albumin erasmo urement (mass/volume)Ordered By: Kirill Newell on 11-12-2023 Albumin [Mass/Vol] 3.2 g/dL 2.9-4.4 [facility] Serum or plasma albumin/glob ulin mass ratioOrdered By: Kirill Newell on 11-12-2023 Albumin/Globulin [Mass ratio] 0.6 {ratio} 0.9-2.4 [facility] Serum or plasma beta globuli n measurement by electrophoresis (mass/volume)Ordered By: Kirill Newell on 11-12-2023 Beta globulin Elph [Mass/Vol] 1.2 g/dL 0.7-1.3 [facility] Serum or plasma calcium erasmo urement (mass/volume)Ordered By: Kirill Newell on 11-12-2023 Calcium [Mass/Vol] 9.1 mg/dL 8.5-10.1 [facility] Serum or plasma creatinine m easurement (mass/volume)Ordered By: Kirill Newell on 11-12-2023 Creatinine [Mass/Vol] 0.84 mg/dL 0.55-1.02 [facility] Comment on above: The validity of the calculated GFR & GFRAA in patients over 70 years has not been determined. Clinical correlation is essential. Serum or plasma protein mono clonal measurement by electrophoresis (mass/volume)Ordered By: Kirill Newell on 11-12-2023 Protein.monoclonal Elph [Mass/Vol] Not Observed g/dL Not Observed [facility] Serum or plasma urea nitroge n measurement (mass/volume)Ordered By: Kirill Newell on 11-12-2023 Urea nitrogen [Mass/Vol] 16 mg/dL 7-18 [facility] Serum rheumatoid factor dete ctionOrdered By: Kirill Newell on 11-12-2023 Rheumatoid factor Ql (S) < 10.0 IU/mL <15 [facility] Thin prep Papanicolaou smear with manual screeningOrdered By: Kirill Newell on 11-12-2023 Thin prep Papanicolaou smear with manual screening 26 U/L 15-37 [facility] Thin prep Papanicolaou smear with manual screening 5 5-15 [facility] Thin prep Papanicolaou smear with manual screening 156.0 mg/L NO RANGE EST. [facility] Total protein bloodOrdered B y: Kirill Newell on 11-12-2023 Protein [Mass/Vol] 7.8 g/dL 6.0-8.5 [facility] Urine creatinine measurement (mass/volume)Ordered By: Kirill Newell on 11-12-2023 Creatinine (U) [Mass/Vol] 223.00 mg/dL NO RANGE EST. [facility] Whole blood hemoglobin A1c/t otal hemoglobin ratio (mass fraction)Ordered By: Kirill Newell on 11-12-2023 HbA1c (Bld) [Mass fraction] 5.7 % 3.8-5.6 [facility] Comment on above: Normal < 5.7 % Predi abetic 5.7 - 6.4 % Diabetic >or= 6.5 % Please note range changes. ECG 12 Leadon 01-21-2023 Atrial Rate [facility] P [place] [facility] P-R Interval [facility] Q-T Interval [facility] Q-T Interval (corrected) [facility] QRS Duration [facility] QTC Calculation (Bezet) O [facility] R [place] [facility] T [place] [facility] Ventricular Rate [facility] ECG 12 LeadOrdered By: Virginie Guerra on 02-19-2022 Atrial Rate [facility] P [place] [facility] P-R Interval [facility] Q-T Interval [facility] Q-T Interval (corrected) [facility] QRS Duration [facility] QTC Calculation (Bezet) O [facility] R [place] [facility] T [place] [facility] Ventricular Rate [facility] Basic metabolic 2000 panelon 01-22-2022 Anion gap [Moles/Vol] 15 mmol/L 10 - 2 0 mmol/L [facility] Calcium [Mass/Vol] 8.8 mg/dL 8.4 - 10. 2 mg/dL [facility] Chloride [Moles/Vol] 104 mmol/L 98 - 10 8 mmol/L [facility] Creatinine [Mass/Vol] 0.75 mg/dL 0.60 - 1.20 [facility] GFR/1.73 sq M.predicted CKD-EPI (S/P/Bld) [Vol rate/Area] 83 >=60 mL/min/1.73 m2 [facility] Glucose [Mass/Vol] 90 mg/dL 65 - 99 mg/dL [facility] HCO3 [Moles/Vol] 24 mmol/L 21 - 32 mmol/L [facility] Interpretation and review of laboratory results Normal [facility] Potassium [Moles/Vol] 4.3 mmol/L 3.5 - 5.1 mmol/L [facility] Sodium [Moles/Vol] 139 mmol/L 135 - 145 mmol/L [facility] Urea nitrogen [Mass/Vol] 10 mg/dL 8 - 25 mg/d L [facility] Urea nitrogen/Creatinine [Mass ratio] 13.3 mg/mg [facility] The eGFR should be used for monitoring renal function only and not for medication dosing. [facility] CBC panel Auto (Bld)on 01-22 Erythrocyte distribution width (RBC) [Entitic vol] 15.9 % High 11.6 - 14.8 % [facility] Hematocrit (Bld) [Volume fraction] 33.2 % Low 36.0 - 46.0 % [facility] Hemoglobin (Bld) [Mass/Vol] 10.4 g/dL Low 12.0 - 16.0 g/dL [facility] Interpretation and review of laboratory results Abnormal [facility] MCH (RBC) [Entitic mass] 27.2 pg 26. 0 - 34.0 pg [facility] MCHC (RBC) [Mass/Vol] 31.3 g/dL 31.0 - 37.0 g/dL [facility] MCV (RBC) [Entitic vol] 86.9 fL 80.0 - 100.0 fL [facility] Nucleated RBC (Bld) [#/Vol] 0.00 10*3/uL [facility] Nucleated RBC/100 WBC (Bld) [Ratio] 0.0 % [facility] Platelet mean volume (Bld) [Entitic vol] 11.9 fL 9.4 - 12.4 fL [facility] Platelets (Bld) [#/Vol] 176 10*3/uL [facility] RBC (Bld) [#/Vol] 3.82 10*6/uL Low [facility] ealt WBC (Bld) [#/Vol] 5.53 10*3/uL [facility] 12 Leadon 01-22-2022 Atrial Rate 65 BPM [facility] P [place] 64 degrees [facility] P-R Interval 300 ms [facility] Q-T Interval 444 ms [facility] QRS Duration 94 ms [facility] QTC Calculation (Bezet) 461 ms [facility] [place] 10 degrees [facility] T Hen[place] 90 degrees [facility] Ventricular Rate [address] [facility] th Sinus rhythm with 1s t degree AV block Otherwise normal ECG Confirmed by REMY SEGURA MD ([id number]) on 01/22/2022 9:10:34 AM MUSE [facility] Atrial Rate 64 BPM [facility] P [place] 48 degrees [facility] P-R Interval 272 ms [facility] Q-T Interval 438 ms [facility] QRS Duration 96 ms [facility] QTC Calculation (Bezet) 451 ms [facility] [place] 34 degrees [facility] T [place] 89 degrees [facility] Ventricular Rate [address] [facility] th Sinus rhythm with 1s t degree AV block Nonspecific T wave abnormality Abnormal ECG When compared with ECG of 21-JAN-2022 12:50, (unconfirmed) No significant change was found Confirmed by REMY SEGURA MD ([id number]) on 01/22/2022 9:08:00 AM [facility] APTTon 02-22-2022 aPTT Coag (Bld) [Time] 29 s [facility] Basic metabolic 1999 panelon 01-21-2022 Anion gap [Moles/Vol] 16 mmol/L 10 - 2 0 mmol/L [facility] Calcium [Mass/Vol] 8.5 mg/dL 8.4 - 10. 2 mg/dL [facility] Chloride [Moles/Vol] 106 mmol/L 98 - 10 8 mmol/L [facility] Creatinine [Mass/Vol] 0.67 mg/dL 0.60 - 1.20 Oh [facility] GFR/1.73 sq M.predicted CKD-EPI (S/P/Bld) [Vol rate/Area] 91 >=60 mL/min/1.73 m2 [facility] Glucose [Mass/Vol] 110 mg/dL High 65 - 99 mg/dL [facility] HCO3 [Moles/Vol] 21 mmol/L 21 - 32 mmol/L [facility] Interpretation and review of laboratory results Abnormal [facility] Potassium [Moles/Vol] 3.9 mmol/L 3.5 - 5.1 mmol/L [facility] Sodium [Moles/Vol] 139 mmol/L 135 - 145 mmol/L [facility] Urea nitrogen [Mass/Vol] 14 mg/dL 8 - 25 mg/d L [facility] Urea nitrogen/Creatinine [Mass ratio] 20.9 mg/mg High [facility] The eGFR should be used for monitoring renal function only and not for medication dosing. [facility] Basic metabolic 1999 panelOr dered By: Marcial Thomas on 01-21-2022 Anion gap [Moles/Vol] 17 mmol/L 10 - 2 0 mmol/L [facility] Calcium [Mass/Vol] 8.9 mg/dL 8.4 - 10. 2 mg/dL [facility] Chloride [Moles/Vol] 106 mmol/L 98 - 10 8 mmol/L [facility] Creatinine [Mass/Vol] 0.77 mg/dL 0.60 - 1.20 [facility] GFR/1.73 sq M.predicted CKD-EPI (S/P/Bld) [Vol rate/Area] 80 >=60 mL/min/1.73 m2 [facility] Glucose [Mass/Vol] 94 mg/dL 65 - 99 mg/dL [facility] HCO3 [Moles/Vol] 23 mmol/L 21 - 32 mmol/L [facility] Interpretation and review of laboratory results Normal [facility] Potassium [Moles/Vol] 4.2 mmol/L 3.5 - 5.1 mmol/L [facility] Comment on above: Slightly Hemolyzed Sodium [Moles/Vol] 142 mmol/L 135 - 145 mmol/L [facility] Urea nitrogen [Mass/Vol] 14 mg/dL 8 - 25 mg/d L [facility] Urea nitrogen/Creatinine [Mass ratio] 18.2 mg/mg [facility] The eGFR should be used for monitoring renal function only and not for medication dosing. [facility] CBC panel Auto (Bld)on 01-21 Erythrocyte distribution width (RBC) [Entitic vol] 15.7 % High 11.6 - 14.8 % [facility] Hematocrit (Bld) [Volume fraction] 32.7 % Low 36.0 - 46.0 % [facility] Hemoglobin (Bld) [Mass/Vol] 10.2 g/dL Low 12.0 - 16.0 g/dL [facility] Interpretation and review of laboratory results Abnormal [facility] MCH (RBC) [Entitic mass] 27.1 pg 26. 0 - 34.0 pg [facility] MCHC (RBC) [Mass/Vol] 31.2 g/dL 31.0 - 37.0 g/dL [facility] MCV (RBC) [Entitic vol] 86.7 fL 80.0 - 100.0 fL [facility] Nucleated RBC (Bld) [#/Vol] 0.00 10*3/uL [facility] Nucleated RBC/100 WBC (Bld) [Ratio] 0.0 % [facility] Platelet mean volume (Bld) [Entitic vol] 11.7 fL 9.4 - 12.4 fL [facility] Platelets (Bld) [#/Vol] 173 10*3/uL [facility] RBC (Bld) [#/Vol] 3.77 10*6/uL Low [facility] WBC (Bld) [#/Vol] 6.65 10*3/uL [facility] Calcium, Ionizedon 2 Calcium.ionized [Mass/Vol] 4.6 mg/dL 4.5 - 5.3 mg/dL [facility] Calcium.ionized [Mass/Vol]on 01-21-2022 Interpretation and review of laboratory results Normal [facility] Echocardiogram limited with contrastOrdered By: Nicol Pittman on 01-21-2022 AV mean gradient 5 mmHg [facility] Work Phone: [email or web address] Work Phone: Echocardiogram limited with contraston 01-21-2022 Patient Info Name: VICKIE GONZALEZ Age: 66 years : 1955 Gender: Female Ht: 168 cm Wt: 102 kg BSA: 2.22 m2 BP: 144 / 57 mmHg Technical Quality: Fair Exam Date: 01/21/2022 12:12 PM Patient Status: Outpatient Commercial Intern: Jolanta Klein RDCS, RVT Exam Type: ECHOCARDIOGRAM LIMITED WITH CONTRAST Study Info Indications - INTRAOP TAVR Attending Physician: LINDSEY PLUMMER Referring Physician: [id number] Chase; [id number] BMI: 36.32 kg/m2 Summary 1. Limited two-dimensional, [...] no pericardial effusion. Left Ventricular Outflow Tract ---- Name Value Normal ---- LVOT Doppler ---- LVOT Peak Velocity 1.2 m/s LVOT Mean Gradient 3 mmHg LVOT VTI 26 cm LVOT VTI/AV VTI Ratio 0.8 Aortic Valve ---- Name Value Normal ---- AV Doppler ---- AV Peak Velocity 1.7 m/s AV Mean Gradient 5 mmHg AV VTI 34 cm LVOT Vmax/AV Vmax 0.71 LVOT VTI/AV VTI Ratio 0.8 Report Signatures Finalized by Nicol Pittman DO on 01/21/2022 04:13 PM [facility] Nicol Pittman DO - 01/21/2022 Patient Info Name: VICKIE GONZALEZ Age: 66 years : 1955 Gender: Female Ht: 168 cm Wt: 102 kg BSA: 2.22 m2 BP: 144 / 57 mmHg Technical Quality: Fair Exam Date: 01/21/2022 12:12 PM Patient Status: Outpatient Commercial Intern: Jolanta Klein RDCS, RVT Exam Type: ECHOCARDIOGRAM LIMITED WITH CONTRAST Study Info Indications - INTRAOP TAVR Attending Physician: LINDSEY PLUMMER Referring Physician: [id number], BTAISTA; [phone] BMI: 36.32 kg/m2 Summary 1. Limited two-dimensional, [...] no pericardial effusion. Left Ventricular Outflow Tract ---- Name Value Normal ---- LVOT Doppler ---- LVOT Peak Velocity 1.2 m/s LVOT Mean Gradient 3 mmHg LVOT VTI 26 cm LVOT VTI/AV VTI Ratio 0.8 Aortic Valve ---- Name Value Normal ---- AV Doppler ---- AV Peak Velocity 1.7 m/s AV Mean Gradient 5 mmHg AV VTI 34 cm LVOT Vmax/AV Vmax 0.71 LVOT VTI/AV VTI Ratio 0.8 Report Signatures Finalized by Nicol Pittman DO on 01/21/2022 04:13 PM [facility] Radiology Study observation (narrative) [facility] INR Coag (PPP) [Relative shandra e]on 01-21-2022 Interpretation and review of laboratory results Abnormal [facility] PT Coag (PPP) [Time] 15.5 s High [facility] During the induction phase of oral anticoagulation, the INR may not reflect the anticoagulation status of the patient. Therapeutic ranges for INR's are: Most clinical situations: INR 2.0-3.0 Mechanical Prosthetic Valve: INR 2.5-3.5 Critical: INR >5.0 [facility] Laboratory - Blood bankon ABO and Rh group Nom (Bld) 5100 [facility] ABO and Rh group Nom (Bld) Blood group O Rh(D) positive [facility] Magnesiumon 01-21-2022 Magnesium [Mass/Vol] 1.8 mg/dL 1.6 - 2 .4 mg/dL [facility] Magnesium [Mass/Vol]on 01-21 Interpretation and review of laboratory results Normal [facility] No Panel Informationon 01-21 [facility] Cross Match Compatible [facility] Product Code [id number] [facility] Product ID Red Blood Cells [facility] Status Info Ready [facility] POC Venous Blood Gas Panel-P ulmon 01-21-2022 Base excess Calc (BldV) [Moles/Vol] -1.1000 mmol/L [facility] Breath rate setting Ventilator synchronized intermittent mandatory 0 [facility] Calcium.ionized [Mass/Vol] 4.8 mg/dL 4.5 - 5.3 mg/dL [facility] Carboxyhemoglobin (BldA) [Mass fraction] 1.5 <=1.5 % of total Hb [facility] Comment on above: Reference Ranges: [facility] Non-smokers: <1.5% Smokers: 1.5-5.0% Heavy Smokers: 5.0-9.0% Chloride [Moles/Vol] 109 mmol/L High 98 - 10 8 mmol/L [facility] CO2 (BldV) [Partial pressure] 47.4 mm[Hg] [facility] Glucose [Mass/Vol] 109 mg/dL High 65 - 99 mg/dL [facility] HCO3 (Bld) [Moles/Vol] 25.0 mmol/L 24.0 - 28.0 mmol/L [facility] Hematocrit (BldA) [Volume fraction] 29.7 % Low 36.0 - 46.0 % [facility] Hemoglobin (Bld) [Mass/Vol] 9.7 g/dL Low 12.0 - 16.0 g/dL [facility] Inhaled oxygen concentration 0 % [facility] Interpretation and review of laboratory results Abnormal [facility] Lactate [Moles/Vol] 0.4 mmol/L Low 0.6 - 2. 0 mmol/L [facility] Methemoglobin (BldA) [Mass fraction] <1.0 0.0 - 2.0 % [facility] Oxygen (BldV) [Partial pressure] 39 mm[Hg] [facility] Oxygen saturation in Venous blood 69.2 % 40.0 - 70.0 % [facility] Oxyhemoglobin (BldA) [Mass fraction] 67.8 % No established reference range [facility] pH (BldV) 7.33 [pH] [facility] Potassium [Moles/Vol] 3.6 mmol/L 3.5 - 5.1 mmol/L [facility] Result Notification critical results giv en to treating OR anesthesiolo [facility] Sodium [Moles/Vol] 143 mmol/L 135 - 145 mmol/L [facility] Tidal volume setting Ventilator 0 [facility] PT/INRon 01-21-2022 INR Coag (PPP) [Relative time] 1.3 {INR} High [facility] Potassium Levelon 01-21-2022 Potassium [Moles/Vol] 4.5 mmol/L 3.5 - 5.1 mmol/L [facility] Potassium [Moles/Vol]on 01-01 Interpretation and review of laboratory results Normal [facility] Prepare RBC: 4 Unitson 01-21 Product Code [id number] [facility] Unit Number [id number] [facility] Unit Number [id number] [facility] Unit Number [id number] [facility] Unit Number [id number] [facility] XR Chest 1 Viewon 01-21-2022 Status post TAVR Cardiomegaly pulmonary vascular congestion and edema Workstation ID: [id number] [facility] EXAMINATION: ONE XRAY VIEW OF THE [...] edema. No focal airspace disease. No pneumothorax Lindsey García MD - 01/21/2022 EXAMINATION: ONE XRAY VIEW [...] vascular congestion and edema Workstation ID: [id number] [facility] Radiology Study observation (narrative) [facility] XR Chest 1 ViewOrdered By: Malachi Shirley on 01-21-2022 [facility] Work Phone: aPTT Coag (Bld) [Time]on Interpretation and review of laboratory results Normal [facility] Therapeutic range fo r APTT's is 68 - 104 seconds [facility] ECG 12 LeadOrdered By: Virginie Guerra on 01-09-2022 Atrial Rate [facility] P [place] [facility] P-R Interval [facility] Q-T Interval [facility] Q-T Interval (corrected) [facility] QRS Duration [facility] QTC Calculation (Bezet) [facility] [place] [facility] T [place] [facility] Ventricular Rate [facility] COVID-19, MolecularOrdered B y: Nasreen Jenkins on 01-07-2022 SARS-CoV-2 (COVID-19) RNA MAXIMUS+probe Ql (Resp) Not detected Not Detected [facility] Comment on above: This test [...] at the following links: For Healthcare Providers: https://www.fda.gov/media/121280/download For Patients: https://www.fda.gov/media/324118/download SARS-CoV-2 (COVID-19) RNA NA A+probe Ql (Resp)Ordered By: Nasreen Jenkins on 01-07-2022 Interpretation and review of laboratory results Normal [facility] ECG 12-LEADOrdered By: Blaine Silveira on 06-10-2021 Atrial Rate [facility] P [place] [facility] P-R Interval [facility] Q-T Interval [facility] Q-T Interval (corrected) [facility] QRS Duration [facility] QTC Calculation (Bezet) [facility] [place] [facility] T [place] [facility] Ventricular Rate [facility] Atrial Rate [facility] P [place] [facility] P-R Interval [facility] Q-T Interval [facility] Q-T Interval (corrected) [facility] QRS Duration [facility] QTC Calculation (Bezet) [facility] [place] [facility] T [place] [facility] Ventricular Rate [facility] ECHOCARDIOGRAM COMPLETEon Transthoracic Echocardiogram ____ Patient: CARLOS Sykes [facility] Rec#: [id number] (Age): 1955(63y) Height: 167.64(cm)/65(i Study Date: 06/14/2019 Weight: 120.66(kg)/265( Room#: BSA: [id number] Type: Loc: Sex: F ____ Reading: MD Kamran Joshi Referring: BLAINE SILVEIRA L. Commercial Intern: Angelica Lynne [facility], RVT History: Aortic Valve disorder. [...] at 06/14/2019 16:22:40 by: Silvio Mckeon MD [facility] Interface, Rad In Heart[facility] Xper Echopa - 06/14/2019 4:29 PM EDT Transthoracic Echocardiogram ____ Patient: CARLOS Sykes [facility] Rec#: [id number] (Age): 1955(63y) Height: 167.64(cm)/65(i Study Date: 06/14/2019 Weight: 120.66(kg)/265( Room#: BSA: [id number] Type: Loc: Sex: F ____ Reading: Silvio Mckeon MD F Referring: BLAINE SILVEIRA L. Commercial Intern: Angelica Lynne RDCS, RVT History: Aortic Valve [...] at 06/14/2019 16:22:40 by: Silvio Mckeon MD [facility] ECG 12-LEADon 06-06-2019 Atrial Rate [facility] P [place] [facility] P-R Interval [facility] Q-T Interval [facility] Q-T Interval (corrected) [facility] QRS Duration [facility] QTC Calculation (Bezet) [facility] [place] [facility] T [place] [facility] Ventricular Rate [facility] Echocardiogram completeon Echocardiogram complete Transthoracic Echocardiogram ____ Patient: CARLOS Sykes [facility] Rec#: [id number] (Age): 1955(62y) Height: 167.64(cm)/65(i Study Date: 01/05/2018 Weight: 109.77(kg)/241( Room#: BSA: [id number] Type: Outpatient Loc: Sex: F ____ Reading: Iliana Gomez M.D. Referring: BLAINE SILVEIRA L. Commercial Intern: Angelica Lynne RDCS, RVT History: Aortic Valve [...] by: Iliana Gomez M.D. Invalid Interpretation Code [facility] Echocardiogram complete Interface, Rad Nelson n Heart[facility] Xper Echopacs - 01/05/2018 2:56 PM EST Transthoracic Echocardiogram ____ Patient: CARLOS Sykes [facility] Rec#: [id number] (Age): 1955(62y) Height: 167.64(cm)/65(i Study Date: 01/05/2018 Weight: 109.77(kg)/241( Room#: BSA: [id number] Type: Outpatient Loc: Sex: F ____ Reading: Iliana Gomez M.D. Referring: BLAINE SILVEIRA L. Commercial Intern: Angelica Lynne RD, RVT History: Aortic Valve disorder. Aotic insufficiencyCoronary [...] by: Iliana Gomez M.D. Invalid Interpretation Code [facility] Vital Signs Date Time Vital Sign Value Performing Clinician Facility 08-23-2025 12:07-0400 Diastolic blood pressure 82 mm[Hg] Brendan Maciel PA-C Work Phone: [facility] 08-23-2025 12:07-0400 Systolic blood pressure 188 mm[Hg] Brendan SIMS-C Work Phone: [facility] 08-23-2025 11:18-0400 Body height 167.6 cm Brendan SIMS-C Work Phone: [facility] 08-23-2025 11:18-0400 Body mass index (BMI) [Ratio] 41 kg/m2 Brendan SIMS-C Work Phone: [facility] 08-23-2025 11:18-0400 Body weight 115.21 kg Brendan Maciel PA-C Work Phone: [facility] 08-23-2025 11:18-0400 Heart rate 77 /min Brendan Maciel PA-C Work Phone: [facility] 08-23-2025 11:18-0400 SaO2% (BldA) [Mass fraction] 95 % Brendan Maciel PA-C Work Phone: [facility] 08-08-2025 08:57-0400 Body mass index (BMI) [Ratio] 40.4 kg/m2 Dr. Kirill Newell MD Work Phone: [facility] 08-08-2025 08:57-0400 Body temperature 97.4 [degF] Dr. Kirill Newell MD Work Phone: [facility] 08-08-2025 08:57-0400 Body weight 115.[address] Kirill Newell MD Work Phone: [facility] 08-08-2025 08:57-0400 Diastolic blood pressure 84 mm[Hg] Dr. Kirill Newell MD Work Phone: [facility] 08-08-2025 08:57-0400 Heart rate 74 /min Dr. Kirill Newell MD Work Phone: [facility] 08-08-2025 08:57-0400 Respiratory rate 18 /min Dr. Kirill Newell MD Work Phone: [facility] 08-08-2025 08:57-0400 SaO2% (BldA) [Mass fraction] 99 % Dr. Kirill Newell MD Work Phone: [facility] 08-08-2025 08:57-0400 Systolic blood pressure 141 mm[Hg] Dr. Kirill Newell MD Work Phone: [facility] 06-06-2025 07:57-0400 Diastolic blood pressure 79 mm[Hg] Blaine Silveira MD Work Phone: [facility] 06-06-2025 07:57-0400 Heart rate 57 /min Blaine Silveira MD Work Phone: [facility] 06-06-2025 07:57-0400 Systolic blood pressure 137 mm[Hg] Blaine Silveira MD Work Phone: [facility] 06-06-2025 07:50-0400 Body height 167.6 cm Blaine Silveira MD Work Phone: [facility] 06-06-2025 07:50-0400 Body mass index (BMI) [Ratio] 42.13 kg/m2 Blaine Silveira MD Work Phone: [facility] 06-06-2025 07:50-0400 Body weight 118.39 kg Blaine Silveira MD Work Phone: [facility] 05-31-2025 15:07-0400 Body temperature 97.8 [degF] Dr. Kirill Newell MD Work Phone: [facility] 05-31-2025 15:07-0400 Diastolic blood pressure 71 mm[Hg] Dr. Kirill Newell MD Work Phone: [facility] 05-31-2025 15:07-0400 Heart rate 82 /min Dr. Kirill Newell MD Work Phone: [facility] 05-31-2025 15:07-0400 Respiratory rate 18 /min Dr. Kirill Newell MD Work Phone: [facility] 05-31-2025 15:07-0400 SaO2% (BldA) [Mass fraction] 95 % Dr. Kirill Newell MD Work Phone: [facility] 05-31-2025 15:07-0400 Systolic blood pressure 139 mm[Hg] Dr. Kirill Newell MD Work Phone: [facility] 05-31-2025 05:06-0400 Body mass index (BMI) [Ratio] 43.4 kg/m2 Dr. Kirill Newell MD Work Phone: [facility] 05-31-2025 05:06-0400 Body weight 123.[address] Kirill Newell MD Work Phone: [phone] [place] [address] 05-31-2025 00:47-0400 Inhaled oxygen flow rate 0 L/min Dr. Kirill Newell MD Work Phone: [phone] [place] [address] 05-30-2025 03:08-0400 Body height 168.[address] Kirill Newell MD Work Phone: [phone] [place] [address] 05-30-2025 02:47-0400 Body temperature 98.2 [degF] Dr. Kirill Newell MD Work Phone: 4(488)[phone] [place] [address] 05-30-2025 02:47-0400 Diastolic blood pressure 100 mm[Hg] Dr. Kirill Newell MD Work Phone: 7(406)[phone] [place] [address] 05-30-2025 02:47-0400 Heart rate 114 /min Dr. Kirill Newell MD Work Phone: 7(714)075-678323 [place] [address] 05-30-2025 02:47-0400 Respiratory rate 23 /min Dr. Kirill Newell MD Work Phone: 9(167)[phone] [place] [address] 05-30-2025 02:47-0400 SaO2% (BldA) [Mass fraction] 96 % Dr. Kirill Newell MD Work Phone: 4(716)085-270823 [place] [address] 05-30-2025 02:47-0400 Systolic blood pressure 136 mm[Hg] Dr. Kirill Newell MD Work Phone: 7(015)649-798523 [place] [address] 05-29-2025 23:10-0400 Body height 170.[address] Kirill Newell MD Work Phone: 2(351)907-210623 [place] [address] 05-29-2025 23:10-0400 Body mass index (BMI) [Ratio] 41 kg/m2 Dr. Kirill Newell MD Work Phone: 2(831)[phone] [place] [address] 05-29-2025 23:10-0400 Body weight 118.[address] Kirill Newell MD Work Phone: 3(923)[phone] [place] [address] 02-12-2024 11:18-0400 Body temperature 98.1 [degF] Kendall Graff [facility] 02-12-2024 11:18-0400 Diastolic blood pressure 79 mm[Hg] Kendall Graff PT [facility] 02-12-2024 11:18-0400 Heart rate 78 /min Kendall Graff PT [facility] 02-12-2024 11:18-0400 Respiratory rate 16 /min Kendall Graff PT [facility] 02-12-2024 11:18-0400 SaO2% (BldA) [Mass fraction] 98 % Kendall Graff PT [facility] 02-12-2024 11:18-0400 Systolic blood pressure 124 mm[Hg] Kendall Graff PT [facility] 02-11-2024 08:58-0400 Body temperature 98.8 [degF] Lindsey Centeno RN [facility] 02-11-2024 08:58-0400 Diastolic blood pressure 78 mm[Hg] Lindsey Centeno RN [facility] 02-11-2024 08:58-0400 Heart rate 62 /min Lindsey Centeno RN [facility] 02-11-2024 08:58-0400 Respiratory rate 16 /min Lindsey Centeno RN [facility] 02-11-2024 08:58-0400 SaO2% (BldA) [Mass fraction] 99 % Lindsey Centeno RN [facility] 02-11-2024 08:58-0400 Systolic blood pressure 132 mm[Hg] Lindsey Centeno RN [facility] 02-10-2024 09:59-0400 Body temperature 97.81 [degF] Cristhian Thrush [facility] 02-10-2024 09:59-0400 Diastolic blood pressure 70 mm[Hg] Cristhian Thrush [facility] 02-10-2024 09:59-0400 Heart rate 66 /min Cristhian Thrush [facility] 02-10-2024 09:59-0400 Respiratory rate 15 /min Cristhian Thrush [facility] 02-10-2024 09:59-0400 SaO2% (BldA) [Mass fraction] 97 % Cristhian Thrush [facility] 02-10-2024 09:59-0400 Systolic blood pressure 118 mm[Hg] Cristhian Thrush [facility] 02-09-2024 09:21-0400 Body temperature 98.2 [degF] Lisa Odell LPN [facility] 02-09-2024 09:21-0400 Diastolic blood pressure 80 mm[Hg] Lisa Odell LPN [facility] 02-09-2024 09:21-0400 Heart rate 85 /min Lisa Odell LPN [facility] 02-09-2024 09:21-0400 Respiratory rate 16 /min Lisa Odell [facility] 02-09-2024 09:21-0400 SaO2% (BldA) [Mass fraction] 98 % Lisa Odell [facility] 02-09-2024 09:21-0400 Systolic blood pressure 142 mm[Hg] Lisa Odell [facility] 02-08-2024 10:30-0400 Body temperature 97.9 [degF] Cristhian Thrush [facility] 02-08-2024 10:30-0400 Diastolic blood pressure 70 mm[Hg] Cristhian Thrush [facility] 02-08-2024 10:30-0400 Heart rate 67 /min Cristhian Thrush [facility] 02-08-2024 10:30-0400 Respiratory rate 16 /min Cristhian Thrush [facility] 02-08-2024 10:30-0400 SaO2% (BldA) [Mass fraction] 97 % Cristhian Thrush [facility] 02-08-2024 10:30-0400 Systolic blood pressure 118 mm[Hg] Cristhian Thrush [facility] 02-05-2024 10:44-0500 Body temperature 98.49 [degF] Lisa Odell [facility] 02-05-2024 10:44-0500 Diastolic blood pressure 82 mm[Hg] Lisa Odell [facility] 02-05-2024 10:44-0500 Heart rate 77 /min Lisa Odell [facility] 02-05-2024 10:44-0500 Respiratory rate 16 /min Lisa Odell [facility] 02-05-2024 10:44-0500 SaO2% (BldA) [Mass fraction] 98 % Lisa Odell [facility] 02-05-2024 10:44-0500 Systolic blood pressure 150 mm[Hg] Lisa Odell [facility] 02-05-2024 10:09-0500 Body temperature 98.2 [degF] Cristhian Thrush [facility] 02-05-2024 10:09-0500 Diastolic blood pressure 88 mm[Hg] Cristhian Thrush [facility] 02-05-2024 10:09-0500 Heart rate 67 /min Cristhian Thrush [facility] 02-05-2024 10:09-0500 Respiratory rate 15 /min Cristhian Thrush [facility] 02-05-2024 10:09-0500 SaO2% (BldA) [Mass fraction] 97 % Cristhian Byrnes [facility] 02-05-2024 10:09-0500 Systolic blood pressure 150 mm[Hg] Cristhian Byrnes [facility] 02-03-2024 14:06-0500 Body temperature 97.59 [degF] Siena Rondon RN [facility] 02-03-2024 14:06-0500 Diastolic blood pressure 84 mm[Hg] Siena Rondon RN [facility] 02-03-2024 14:06-0500 Heart rate 76 /min Siena Rondon RN [facility] 02-03-2024 14:06-0500 Respiratory rate 18 /min Siena Rondon RN [facility] 02-03-2024 14:06-0500 SaO2% (BldA) [Mass fraction] 99 % Siena Rondon RN [facility] 02-03-2024 14:06-0500 Systolic blood pressure 130 mm[Hg] Siena Rondon RN [facility] 02-03-2024 12:32-0500 Body temperature 97.3 [degF] Cristhian Byrnes [facility] 02-03-2024 12:32-0500 Diastolic blood pressure 83 mm[Hg] Cristhian Byrnes [facility] 02-03-2024 12:32-0500 Heart rate 70 /min Cristhian Byrnes [facility] 02-03-2024 12:32-0500 Respiratory rate 15 /min Cristhian Byrnes [facility] 02-03-2024 12:32-0500 SaO2% (BldA) [Mass fraction] 99 % Cristhian Byrnes [facility] 02-03-2024 12:32-0500 Systolic blood pressure 145 mm[Hg] Cristhian Byrnes [facility] 02-01-2024 11:30-0500 Body temperature 98.1 [degF] Cristhian Byrnes [facility] 02-01-2024 11:30-0500 Diastolic blood pressure 88 mm[Hg] Cristhian Byrnes [facility] 02-01-2024 11:30-0500 Heart rate 70 /min Cristhian Byrnes [facility] 02-01-2024 11:30-0500 Respiratory rate 15 /min Cristhian Byrnes [facility] 02-01-2024 11:30-0500 SaO2% (BldA) [Mass fraction] 98 % Cristhian Byrnes [facility] 02-01-2024 11:30-0500 Systolic blood pressure 148 mm[Hg] Cristhian Byrnes [facility] 01-28-2024 12:52-0500 Body temperature 98.6 [degF] Kendall Graff PT [facility] 01-28-2024 12:52-0500 Diastolic blood pressure 73 mm[Hg] Kendall Dajuan PT [facility] 01-28-2024 12:52-0500 Heart rate 69 /min Kendall Graff PT [facility] 01-28-2024 12:52-0500 Respiratory rate 16 /min Kendall Graff PT [facility] 01-28-2024 12:52-0500 SaO2% (BldA) [Mass fraction] 99 % Kendall Graff PT [facility] 01-28-2024 12:52-0500 Systolic blood pressure 142 mm[Hg] Kendall Graff PT [facility] 01-27-2024 10:42-0500 Body temperature 98.6 [degF] Siena Rondon [facility] 01-27-2024 10:42-0500 Diastolic blood pressure 82 mm[Hg] Sienarachel Rondon [facility] 01-27-2024 10:42-0500 Heart rate 75 /min Siena Rondon [facility] 01-27-2024 10:42-0500 Respiratory rate 16 /min Siena Rondon [facility] 01-27-2024 10:42-0500 SaO2% (BldA) [Mass fraction] 96 % Sienarachel Rondon [facility] 01-27-2024 10:42-0500 Systolic blood pressure 144 mm[Hg] Sienarachel Rondon [facility] 01-15-2024 13:12-0500 Body height 167.6 cm Jass Pepe MD Work Phone: [facility] 01-15-2024 13:12-0500 Body mass index (BMI) [Ratio] 37.93 kg/m2 Jass Pepe MD Work Phone: [facility] 01-15-2024 13:12-0500 Body weight 106.59 kg Jass Pepe MD Work Phone: [facility] 01-15-2024 13:12-0500 Diastolic blood pressure 66 mm[Hg] Jass Pepe MD Work Phone: [facility] 01-15-2024 13:12-0500 Heart rate 82 /min Jass Pepe MD Work Phone: [facility] 01-15-2024 13:12-0500 Systolic blood pressure 143 mm[Hg] Jass Pepe MD Work Phone: [facility] 10-20-2023 13:34-0500 Diastolic blood pressure 91 mm[Hg] Blaine Silveira MD Work Phone: [facility] 10-20-2023 13:34-0500 Systolic blood pressure 156 mm[Hg] Blaine Silveira MD Work Phone: [facility] 10-20-2023 13:24-0500 Body height 170.2 cm Blaine Silveira MD Work Phone: [facility] 10-20-2023 13:24-0500 Body mass index (BMI) [Ratio] 37.28 kg/m2 Blaine Silveira MD Work Phone: [facility] 10-20-2023 13:24-0500 Body weight 107.96 kg Blaine Silveira MD Work Phone: [facility] 10-20-2023 13:24-0500 Heart rate 74 /min Blaine Silveira MD Work Phone: [facility] 10-20-2023 13:24-0500 SaO2% (BldA) [Mass fraction] 97 % Blaine Silveira MD Work Phone: [facility] 07-16-2023 09:42-0400 Body mass index (BMI) [Ratio] 36.3 kg/m2 [facility] 07-16-2023 09:42-0400 Body temperature 96.2 [degF] [facility] 07-16-2023 09:42-0400 Diastolic blood pressure 71 mm[Hg] [facility] 07-16-2023 09:42-0400 Heart rate 70 /min [facility] 07-16-2023 09:42-0400 Respiratory rate 16 /min [facility] 07-16-2023 09:42-0400 Systolic blood pressure 174 mm[Hg] [facility] 06-30-2023 00:20-0400 Body weight 102.05 kg [facility] 06-25-2023 10:45-0400 Body height 170.18 cm [facility] 06-25-2023 10:45-0400 Body mass index (BMI) [Ratio] 38.9 kg/m2 [facility] 06-25-2023 10:45-0400 Body temperature 98 [degF] [facility] 06-25-2023 10:45-0400 Body weight 113 kg [facility] 06-25-2023 10:45-0400 Diastolic blood pressure 85 mm[Hg] [facility] 06-25-2023 10:45-0400 Heart rate 74 /min [facility] 06-25-2023 10:45-0400 Respiratory rate 14 /min [facility] 06-25-2023 10:45-0400 SaO2% (BldA) [Mass fraction] 98 % [facility] 06-25-2023 10:45-0400 Systolic blood pressure 206 mm[Hg] [facility] 06-25-2023 09:48-0400 Body mass index (BMI) [Ratio] 36.3 kg/m2 [facility] 06-25-2023 09:48-0400 Body temperature 97 [degF] [facility] 06-25-2023 09:48-0400 Diastolic blood pressure 101 mm[Hg] [facility] 06-25-2023 09:48-0400 Heart rate 82 /min [facility] 06-25-2023 09:48-0400 Respiratory rate 20 /min [facility] 06-25-2023 09:48-0400 Systolic blood pressure 206 mm[Hg] [facility] 05-30-2023 01:32-0400 Body weight 102.05 kg [facility] 05-28-2023 09:48-0400 Body mass index (BMI) [Ratio] 36.3 kg/m2 [facility] 05-28-2023 09:48-0400 Body temperature 96.5 [degF] [facility] 05-28-2023 09:48-0400 Diastolic blood pressure 76 mm[Hg] [facility] 05-28-2023 09:48-0400 Heart rate 78 /min [facility] 05-28-2023 09:48-0400 Respiratory rate 18 /min [facility] 05-28-2023 09:48-0400 Systolic blood pressure 186 mm[Hg] [facility] 04-30-2023 00:46-0400 Body weight 102.05 kg [facility] 04-23-2023 09:49-0400 Body mass index (BMI) [Ratio] 36.3 kg/m2 [facility] 04-23-2023 09:49-0400 Diastolic blood pressure 101 mm[Hg] [facility] 04-23-2023 09:49-0400 Heart rate 73 /min [facility] 04-23-2023 09:49-0400 Systolic blood pressure 169 mm[Hg] [facility] 04-23-2023 09:23-0400 Body temperature 96.6 [degF] [facility] 04-23-2023 09:23-0400 Respiratory rate 18 /min [facility] 04-16-2023 08:58-0400 Body height 167.64 cm [facility] 04-16-2023 08:58-0400 Body weight 102.05 kg [facility] 01-21-2023 09:01-0500 Body height 167.6 cm Angelica Randall CNP Work Phone: [facility] 01-21-2023 09:01-0500 Body mass index (BMI) [Ratio] 38.76 kg/m2 Angelica Dye RN [facility] Work Phone: [facility] 01-21-2023 09:01-0500 Body temperature 98.01 [degF] Angelica Dye RN [facility] Work Phone: [facility] 01-21-2023 09:01-0500 Body weight 108.92 kg Angelica Dye RN [facility] Work Phone: [facility] 01-21-2023 09:01-0500 Diastolic blood pressure 84 mm[Hg] Angelica Randall RN [facility] Work Phone: [facility] 01-21-2023 09:01-0500 Heart rate 67 /min Angelica Dye RN [facility] Work Phone: [facility] 01-21-2023 09:01-0500 Respiratory rate 16 /min Angelica Dye RN [facility] Work Phone: [facility] 01-21-2023 09:01-0500 SaO2% (BldA) [Mass fraction] 98 % Angelica Dye RN [facility] Work Phone: [facility] 01-21-2023 09:01-0500 Systolic blood pressure 198 mm[Hg] Angelica Dye RN [facility] Work Phone: [facility] 02-19-2022 11:13-0400 Diastolic blood pressure 85 mm[Hg] Angelica Dye RN [facility] Work Phone: [facility] 02-19-2022 11:13-0400 Systolic blood pressure 148 mm[Hg] Angelica Dye RN [facility] Work Phone: [facility] 02-19-2022 11:08-0400 Body height 167.6 cm Angelica Dye RN [facility] Work Phone: [facility] 02-19-2022 11:08-0400 Body mass index (BMI) [Ratio] 36.97 kg/m2 Angelica Dye RN [facility] Work Phone: [facility] 02-19-2022 11:08-0400 Body temperature 97.7 [degF] Angelica Dye RN [facility] Work Phone: [facility] 02-19-2022 11:08-0400 Body weight 103.9 kg Angelica Dye RN [facility] Work Phone: [facility] 02-19-2022 11:08-0400 Heart rate 69 /min Angelica Dye RN [facility] Work Phone: [facility] 02-19-2022 11:08-0400 Respiratory rate 16 /min Angelica Dye RN [facility] Work Phone: [facility] 02-19-2022 11:08-0400 SaO2% (BldA) [Mass fraction] 98 % Angelica Dye RN [facility] Work Phone: [facility] 02-03-2022 09:56-0500 Body mass index (BMI) [Ratio] 35.51 kg/m2 Angelica Dye RN [facility] Work Phone: [facility] 02-03-2022 09:56-0500 Body weight 99.79 kg Angelica Dye RN [facility] Work Phone: [facility] 02-03-2022 09:56-0500 Diastolic blood pressure 80 mm[Hg] Angelica Dye RN [facility] Work Phone: [facility] 02-03-2022 09:56-0500 Systolic blood pressure 132 mm[Hg] Angelica Dye RN [facility] Work Phone: [facility] 01-22-2022 07:52-0500 Body temperature 98.01 [degF] Lindsey Plummer MD Work Phone: [facility] 01-22-2022 07:52-0500 Diastolic blood pressure 84 mm[Hg] Lindsey Plummer MD Work Phone: [facility] 01-22-2022 07:52-0500 Heart rate 81 /min Lindsey Plummer MD Work Phone: [facility] 01-22-2022 07:52-0500 Respiratory rate 18 /min Lindsey Plummer MD Work Phone: [facility] 01-22-2022 07:52-0500 SaO2% (BldA) [Mass fraction] 98 % Lindsey Plummer MD Work Phone: [facility] 01-22-2022 07:52-0500 Systolic blood pressure 123 mm[Hg] Lindsey Plummer MD Work Phone: [facility] 01-22-2022 04:08-0500 Body mass index (BMI) [Ratio] 37.28 kg/m2 Lindsey Plummer MD Work Phone: [facility] 01-22-2022 04:08-0500 Body weight 104.78 kg Lindsey Plummer MD Work Phone: [facility] 01-21-2022 11:49-0500 Respiratory rate 0 /min Lindsey Plummer MD Work Phone: [facility] 01-21-2022 08:20-0500 Body height 167.6 cm Lindsey Plummer MD Work Phone: [facility] 01-09-2022 09:44-0500 Body height 167.6 cm Meir Arthur MD Work Phone: [facility] 01-09-2022 09:44-0500 Body mass index (BMI) [Ratio] 37.82 kg/m2 Meir Arthur MD Work Phone: [facility] 01-09-2022 09:44-0500 Body temperature 98.01 [degF] Meir Arthur MD Work Phone: [facility] 01-09-2022 09:44-0500 Body weight 106.3 kg Meir Arthur MD Work Phone: [facility] 01-09-2022 09:44-0500 Diastolic blood pressure 80 mm[Hg] Meir Arthur MD Work Phone: [facility] 01-09-2022 09:44-0500 Heart rate 78 /min Meir Arthur MD Work Phone: [facility] 01-09-2022 09:44-0500 Respiratory rate 18 /min Meir Arthur MD Work Phone: [facility] 01-09-2022 09:44-0500 SaO2% (BldA) [Mass fraction] 97 % Meir Arthur MD Work Phone: [facility] 01-09-2022 09:44-0500 Systolic blood pressure 143 mm[Hg] Meir Arthur MD Work Phone: [facility] 01-09-2022 09:36-0500 Body height 167.6 cm Lindsey Plummer MD Work Phone: [facility] 01-09-2022 09:36-0500 Body mass index (BMI) [Ratio] 37.82 kg/m2 Lindsey Plummer MD Work Phone: [facility] 01-09-2022 09:36-0500 Body temperature 98.01 [degF] Lindsey Plummer MD Work Phone: [facility] 01-09-2022 09:36-0500 Body weight 106.3 kg Lindsey Plummer MD Work Phone: [facility] 01-09-2022 09:36-0500 Diastolic blood pressure 80 mm[Hg] Lindsey Plummer MD Work Phone: [facility] 01-09-2022 09:36-0500 Heart rate 78 /min Lindsey Plummer MD Work Phone: [facility] 01-09-2022 09:36-0500 Respiratory rate 16 /min Lindsey Plummer MD Work Phone: [facility] 01-09-2022 09:36-0500 SaO2% (BldA) [Mass fraction] 97 % Lindsey Plummer MD Work Phone: [facility] 01-09-2022 09:36-0500 Systolic blood pressure 143 mm[Hg] Lindsey Plummer MD Work Phone: [facility] 06-10-2021 11:16-0400 Body height 167.6 cm Blaine Silveira MD Work Phone: [facility] 06-10-2021 11:16-0400 Body mass index (BMI) [Ratio] 36.8 kg/m2 Blaine Silveira MD Work Phone: [facility] 06-10-2021 11:16-0400 Body weight 103.42 kg Blaine Silveira MD Work Phone: [facility] 06-10-2021 11:16-0400 Diastolic blood pressure 73 mm[Hg] Blaine Silveira MD Work Phone: [facility] 06-10-2021 11:16-0400 Heart rate 73 /min Blaine Silveira MD Work Phone: [facility] 06-10-2021 11:16-0400 SaO2% (BldA) [Mass fraction] 98 % Blaine Silveira MD Work Phone: [facility] 06-10-2021 11:16-0400 Systolic blood pressure 148 mm[Hg] Blaine Silveira MD Work Phone: [facility] 06-06-2019 14:33-0400 BMI (Body Mass Index) 42.97 kg/m2 Blaine Silveira [facility] 06-06-2019 14:33-0400 Body weight 120.75 kg Blaine Silveira [facility] 06-06-2019 14:33-0400 BP Diastolic 75 mm[Hg] Blaine Silveira [facility] 06-06-2019 14:33-0400 BP Systolic 159 mm[Hg] Blaine Silveira [facility] 06-06-2019 14:33-0400 Height 167.6 cm Blaine Silveira [facility] 06-06-2019 14:33-0400 Pulse (Heart Rate) 71 /min Blaine Silveira [facility] 06-06-2019 14:33-0400 Pulse Oximetry 96 % Blaine Silveira [facility] Encounters Encounter Date Encounter Type Care Provider Facility Start: 09-13-2025 ambulatory [facility] Facility:[facility] Start: 08-23-2025 End: 08-23-2025 Office outpatient visit 15 minutes Brendan Maciel PA-C Work Phone: [facility] Comment on above: Atrial flutter, unsp ecified type (HCC) Start: 08-23-2025 End: 08-23-2025 ambulatory BRENDAN MACIEL [facility] Amb[facility] Start: 08-22-2025 End: 08-22-2025 Orders Only Brendan Maciel PA-C Work Phone: [facility] Comment on above: Atrial flutter, unsp ecified type (HCC) (Primary Dx) Start: 08-08-2025 End: 08-08-[address] Jeff Danielle DO -[facility] Work Phone: Start: 08-08-2025 End: 08-08-[address] Kirill Newell MD Work Phone: -[facility] Start: 08-08-[address] Kirill Newell MD -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 Work Phone: Start: 07-04-2025 End: 07-04-2025 Refill Samina Espinoza RN [facility] Comment on above: Medication Refill Start: 07-03-2025 End: 07-03-2025 Anesthesia consultation Jair Barry MD Work Phone: [facility] Start: 07-03-2025 End: 07-03-2025 [facility] Start: 06-09-2025 End: 06-09-2025 Admission to same day surgery center Samina Espinoza RN [facility] [facility] Start: 06-06-2025 End: 06-06-2025 Office outpatient visit 25 minutes Blaine Silveira MD Work Phone: [facility] Comment on above: Typical atrial flutt er (HCC) (Primary Dx); Severe aortic insufficiency; Fibrosing mediastinitis; S/P TAVR (transcatheter aortic valve replacement); Mixed hyperlipidemia; Coronary artery disease involving igiugig coronary artery of igiugig heart without angina pectoris Start: 06-06-2025 End: 08-06-2025 Orders Only Samina Espinoza RN [facility] Comment on above: Typical atrial flutt er (HCC) (Primary Dx) TTE Start: 05-31-2025 Non-patient / Non-visit Dr. Shagufta Garcia DO -[place] Work Phone: Start: 05-31-2025 End: 05-31-2025 ambulatory Kirill Newell Facility:[facility] Start: 05-31-2025 End: 05-31-2025 Non-patient / Non-visit Dr. Francisco Cox MD -[facility] Work Phone: Start: 05-30-2025 ambulatory Dianne Perez Facility:[facility] Start: 05-30-2025 Non-patient / Non-visit Dr. Dianne ling MD -[facility] Start: 05-30-2025 ambulatory Nicol Silva Facilnelson ty:[facility] Start: 05-30-2025 End: 05-31-2025 Evaluation and management of inpatient Dr. Nicol Silva DO -Progressive Care Unit Work Phone: Start: 05-30-2025 ambulatory NICOL IBANEZ [facility] Ambulatory Start: 12-19-2024 End: 12-19-2024 ambulatory Kirill [place] Facility:[facility] Start: 03-25-2024 End: 03-25-2024 Postop follow up visit related to original px Jass Pepe MD Work Phone: [facility] Comment on above: Status post total ri ght knee replacement (Primary Dx) Start: 03-11-2024 End: 03-15-2024 ambulatory [facility] Start: 03-11-2024 End: 03-11-2024 ambulatory Jass Pepe MD Work Phone: [facility] Comment on above: Status post total ri ght knee replacement (Primary Dx) Start: 03-09-2024 End: 03-13-2024 ambulatory JASS [facility] Start: 03-09-2024 End: 03-09-2024 ambulatory Jass Pepe MD Work Phone: [facility] Comment on above: Status post total ri ght knee replacement (Primary Dx) Start: 03-07-2024 End: 03-11-2024 ambulatory [facility] Start: 03-07-2024 End: 03-07-2024 ambulatory Jass Pepe MD Work Phone: [facility] Comment on above: Status post total ri ght knee replacement (Primary Dx) Start: 03-04-2024 End: 03-08-2024 ambulatory [facility] Start: 03-04-2024 End: 03-04-2024 ambulatory Jass Pepe MD Work Phone: [facility] Comment on above: Status post total ri ght knee replacement (Primary Dx) Start: 03-02-2024 End: 03-06-2024 ambulatory [facility] Start: 03-02-2024 End: 03-02-2024 ambulatory Jass Pepe MD Work Phone: [facility] Comment on above: Status post total ri ght knee replacement (Primary Dx) Start: 02-29-2024 End: 03-04-2024 ambulatory [facility] Start: 02-29-2024 End: 02-29-2024 ambulatory Jass Pepe MD Work Phone: [facility] Comment on above: Status post total ri ght knee replacement (Primary Dx) Start: 02-26-2024 End: 03-01-2024 [facility] JASS MALDONADO AFSHIN [facility] Start: 02-26-2024 End: 02-26-2024 ambulatory Jass Pepe MD Work Phone: [facility] Comment on above: Status post total ri ght knee replacement (Primary Dx) Start: 02-24-2024 End: 02-28-2024 [facility] Start: 02-24-2024 End: 02-24-2024 ambulatory Jass Pepe MD Work Phone: [facility] Comment on above: Status post total ri ght knee replacement (Primary Dx) Start: 02-22-2024 End: 02-26-2024 ambulatory [facility] Start: 02-22-2024 End: 02-22-2024 ambulatory Jass Pepe MD Work Phone: [facility] Comment on above: Status post total ri ght knee replacement (Primary Dx) Start: 02-19-2024 End: 02-23-2024 ambulatory [facility] Start: 02-19-2024 End: 02-19-2024 ambulatory Jass Pepe MD Work Phone: [facility] Comment on above: Status post total ri ght knee replacement (Primary Dx) Start: 02-17-2024 End: 02-21-2024 ambulatory JASS PEPE [facility] Start: 02-17-2024 End: 02-17-2024 ambulatory Jass Pepe MD Work Phone: [facility] Comment on above: Status post total ri ght knee replacement (Primary Dx) Start: 02-15-2024 End: 02-19-2024 ambulatory JASS PEPE [facility] Start: 02-15-2024 End: 02-15-2024 ambulatory Jass Pepe MD Work Phone: [facility] Comment on above: Status post total ri ght knee replacement Start: 02-12-2024 End: 02-12-2024 Postop follow up visit related to original px Jass Pepe MD Work Phone: [facility] Comment on above: Status post total ri ght knee replacement (Primary Dx) Start: 02-12-2024 Home visit Kendall Graff PT [facility] Comment on above: PT OASIS DISCHARGE Start: 02-11-2024 End: 02-11-2024 Home visit Lindsey Centeno RN [facility] Comment on above: SN HH NON-OASIS/DISC IPLINE DC Start: 02-10-2024 End: 02-10-2024 Home visit Cristhian Byrnes [facility] Comment on above: 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 SN HH ROUTINE VISIT Start: 02-01-2024 Documentation procedure Yen gold LPN [facility] Start: 02-01-2024 End: 02-01-2024 Home visit Cristhian Byrnes [employer] [facility] Comment on above: 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 Start: 01-28-2024 End: 01-28-2024 Home visit Kendall Graff PT [facility] Comment on above: PT INITIAL EVALUATIO N Start: 01-27-2024 End: 02-12-2024 ambulatory NICOL IRENA IBANEZ [facility] Start: 01-27-2024 End: 01-27-2024 Home visit Siena Rondon RN [facility] Comment on above: SN HH OASIS START OF CARE Start: 01-26-2024 End: 01-26-2024 ambulatory [facility] Start: 01-15-2024 End: 01-15-2024 Office outpatient visit 15 minutes Jass Pepe MD Work Phone: [facility] Comment on above: Osteoarthritis of ri ght knee, unspecified osteoarthritis type (Primary Dx) Start: 01-11-2024 Documentation procedure Yen gold LPN [facility] Comment on above: 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) Start: 01-07-2024 End: 01-11-2024 ambulatory [facility] Start: 12-14-2023 End: 12-14-2023 ambulatory [facility] Work Phone: Start: 12-14-2023 End: 12-14-2023 Patient encounter procedure [facility]-Radiology, [place] Work Phone: Start: 11-12-2023 End: 11-12-2023 ambulatory [facility] Work Phone: Start: 11-12-2023 End: 11-12-2023 Patient encounter procedure [facility]-Laboratory Work Phone: Start: 11-09-2023 End: 11-10-2023 ambulatory JAVI FLORES [facility] Start: 11-04-2023 End: 11-05-2023 ambulatory [facility] Start: 11-02-2023 End: 11-03-2023 ambulatory [facility] Start: 10-28-2023 End: 10-29-2023 ambulatory [facility] Start: 10-26-2023 End: 10-27-2023 ambulatory [facility] Start: 10-21-2023 End: 10-22-2023 ambulatory [facility] Start: 10-20-2023 End: 10-20-2023 Office outpatient visit 25 minutes Blaine Silveira MD Work Phone: [facility] Comment on above: Coronary artery dise ase involving igiugig coronary artery of igiugig heart without angina pectoris (Primary Dx); Osteoarthritis of right knee, unspecified osteoarthritis type; Severe aortic insufficiency Start: 10-19-2023 End: 10-20-2023 ambulatory [facility] Start: 10-14-2023 End: 10-15-2023 ambulatory [facility] Start: 10-12-2023 End: 10-13-2023 ambulatory [facility] Start: 10-09-2023 End: 10-10-2023 ambulatory [facility] Start: 10-07-2023 End: 10-08-2023 ambulatory [facility] Start: 09-29-2023 End: 09-29-2023 ambulatory [facility] Start: 09-25-2023 Admission to [facility] Jass Pepe MD Work Phone: [facility] Comment on above: Osteoarthritis of ri ght knee, unspecified osteoarthritis type (Primary Dx); Hypertension, unspecified type Start: 07-16-2023 End: 07-16-2023 ambulatory [facility] Work Phone: Start: 07-16-2023 End: 07-16-2023 [facility]charged [facility] Work Phone: Start: 06-25-2023 End: 06-25-2023 Emergency department patient visit [facility]-Emergency Department Work Phone: Start: 06-25-2023 End: 06-29-2023 ambulatory [facility] Work Phone: Start: 06-25-2023 End: 06-29-2023 Discharged [facility] Work Phone: Start: 06-25-2023 Registered [facility] Work Phone: Start: 05-28-2023 End: 05-29-2023 ambulatory [facility] Work Phone: Start: 05-28-2023 End: 05-29-2023 Discharged [facility] Work Phone: Start: 04-23-2023 End: 04-29-2023 ambulatory [facility] Work Phone: Start: 04-23-2023 End: 04-29-2023 Discharged [facility] Start: 01-21-2023 End: 01-25-2023 ambulatory NICOL OSBORN [facility] Start: 01-21-2023 End: 01-21-2023 Office outpatient visit 25 minutes Angelica Randall CNP Work Phone: [facility] Comment on above: S/P TAVR (transcathe ter aortic valve replacement) (Primary Dx); Hypertension, unspecified type Start: 06-19-2022 Orders Only Terrie Núñez [facility] Comment on above: S/P TAVR [...] Orders Only Blaine hines MD Work Phone: [facility] Start: [...] [id number] Start: 02-19-2022 End: 02-23-2022 ambulatory NICOL IBANEZ [facility] Start: 02-19-2022 End: 02-19-2022 Office outpatient visit 15 minutes Angelica Randall CNP Work Phone: [facility] Comment on above: S/P TAVR (transcathe ter aortic valve replacement) (Primary Dx) Start: 02-17-2022 ambulatory [facility] [id number] Start: 02-14-2022 ambulatory Robert Pugh [facility] [id number] Start: 02-12-2022 ambulatory Robert Pugh [facility] [id number] Start: 02-10-2022 ambulatory Robert Pugh [facility] [id number] Start: 02-03-2022 End: 02-03-2022 Phys/qhp telephone evaluation 11-20 min Angelica Randall CNP Work Phone: [facility] Comment on above: S/P TAVR (transcathe ter aortic valve replacement) (Primary Dx) Start: 01-22-2022 Orders Only Terrie Núñez [facility] Comment on above: S/P TAVR (transcathe ter aortic valve replacement) (Primary Dx) S/P TAVR (transcathe ter aortic valve replacement) (Primary Dx); Shortness of breath Start: 01-21-2022 End: 01-22-2022 Evaluation and management of inpatient Lindsey Plummer MD Work Phone: [facility] Start: 01-14-2022 Orders for Hospital Batool Batista CNP Work Phone: [facility] Start: 01-13-2022 Orders Only Angelica Balderas e RN [facility] Work Phone: [facility] Comment on above: Encounter for prepro cedure screening laboratory testing for COVID-19 (Primary Dx) Start: 01-13-2022 Patient encounter status Muriel zuniga RN [facility] Start: 01-10-2022 Orders Only Clau Michaud [facility] Comment on above: Aortic valve stenosi s, severe (Primary Dx); Severe aortic insufficiency Start: 01-09-2022 Orders Only Terrie Oh RN [facility] Comment on above: Encounter for preope rative [...] Start: 01-01-2022 Orders Only Terrie Oh RN [facility] Comment on above: Encounter for prepro cedure screening laboratory testing for COVID-19 (Primary Dx) Start: 01-01-2022 Patient encounter status Terrie Warren RN [facility] Start: 12-31-2021 Orders Only Terrie Oh RN [facility] Comment on above: Aortic valve stenosi s, severe (Primary Dx); Pre-operative cardiovascular examination; Other specified symptoms and signs involving the circulatory and respiratory systems Start: 12-31-2021 Patient encounter status Terrie Warren RN [facility] Start: 06-24-2021 End: 06-24-2021 Orders Only Iliana Madsen RN [facility] Office Comment on above: Nonrheumatic aortic valve insufficiency (Primary Dx) Start: 06-10-2021 End: 06-10-2021 Orders Only Iliana Madsen RN [facility] Office Comment on above: Coronary artery dise ase involving igiugig coronary artery of igiugig heart without angina pectoris (Primary Dx) Nonrheumatic aortic valve insufficiency (Primary Dx) Start: 06-10-2021 End: 06-10-2021 Office outpatient visit 25 minutes Blaine Silveira MD Work Phone: [facility] Office Comment on above: Coronary artery dise ase involving igiugig coronary artery of igiugig heart without angina pectoris; Nonrheumatic aortic valve insufficiency; Elevated sed rate; Mixed hyperlipidemia Start: 01-23-2021 End: 01-23-2021 Orders Only Mustapha Al Work Phone: [facility] Start: 06-14-2019 End: 06-14-2019 Subsequent hospital visit by physician Blaine Silveira Work Phone: [facility] Comment on above: Nonrheumatic aortic valve insufficiency Start: 06-06-2019 End: 06-06-2019 Office outpatient visit 25 minutes Blaine Silveira Work Phone: [facility] Office Comment on above: SOB (shortness of br eath); Coronary artery disease involving igiugig coronary artery of igiugig heart without angina pectoris; Fibrosing mediastinitis; Nonrheumatic aortic valve insufficiency Start: 01-05-2018 Ambulatory Blaine Pringle ity:[place] Start: 01-05-2018 End: 01-05-2018 Ambulatory Blaine Silveira Work Phone: [facility] Procedures Date Procedure Procedure Detail Performing Clinician Start: 08-23-2025 Ecg routine ecg w/le ast 12 lds w/i&r Brendan Maciel PA-C Work Phone: Start: 07-03-2025 Ecg routine ecg w/le ast 12 lds w/i&r Blaine Silveira MD Work Phone: Start: 06-14-2025 Basic metabolic pane l calcium total Blaine Silveira MD Work Phone: Start: 06-06-2025 Ecg routine ecg w/le ast 12 lds w/i&r Blaine Silveira MD Work Phone: Start: 05-31-2025 Electrocardiogram Blaine Silveira MD Work Phone: Start: 05-31-2025 EXTERNAL LAB SCAN Blaine Silveira MD Work Phone: Start: 05-31-[address] Kirill Newell MD Work Phone: Start: 05-31-2025 Serum inorganic phos phate measurement Dr. Kirill Newell MD Work Phone: Start: 05-30-2025 ANGIOGRAM Blaine prado MD Work Phone: Start: 05-30-2025 Electrocardiogram Blaine Silveira MD Work Phone: Start: 05-30-2025 TTE Blaine prado MD Work Phone: Start: 05-30-2025 CT angiography of ch est with contrast Dr. Kirill Newell MD Work Phone: Start: 05-30-[address] Kirill Newell MD Work Phone: Start: 12-14-2023 Plain chest X-ray Start: 11-09-2023 FOLLOW UP IN PHYSICA L THERAPY [facility] Start: 11-04-2023 FOLLOW UP IN PHYSICA L THERAPY [facility] Start: 11-02-2023 FOLLOW UP IN PHYSICA L THERAPY [facility] Start: 10-28-2023 FOLLOW UP IN PHYSICA L THERAPY [facility] Start: 10-26-2023 FOLLOW UP IN PHYSICA L [...] trcg only w/o i&r Angelica Claudia Dye RN [facility] Work Phone: Start: 02-19-2022 Ecg routine ecg w/le ast 12 lds trcg only w/o i&r Angelica Claudia Dye RN [facility] Work Phone: Start: 01-22-2022 Ecg routine ecg w/le ast 12 lds trcg only w/o i&r Angelica Claudia Dye RN [facility] Work Phone: Start: 01-22-2022 Basic metabolic pane l calcium total Angelica Claudia Dye RN [facility] Work Phone: Start: 01-21-2022 Potassium serum plas ma/whole blood Angelica Claudia Dye RN [facility] Work Phone: Start: 01-21-2022 Dup-scan lxtr art/ar tl bpgs uni/lmtd study Angelica Claudia Dye RN [facility] Work Phone: Start: 01-21-2022 Basic metabolic pane l calcium total Angelica Claudia Dye RN [facility] Work Phone: Start: 01-21-2022 Radiologic exam ches t single view Angelica Claudia Dye RN [facility] Work Phone: Start: 01-21-2022 Ecg routine ecg w/le ast 12 lds trcg only w/o i&r Angelica Claudia Dye RN [facility] Work Phone: Start: 01-21-2022 Cardiac catheterization Angelica Wilsonmaty Randall CNP Work Phone: Start: 01-21-2022 2D TTE w or w/o fol w/con,fu Batool Xin Batista CNP Work Phone: Start: 01-21-2022 Sodium serum [...] Activity Detail Author Start: 11-07-2026 Tetanus vaccination [facility] Start: 11-10-2025 End: 11-10-2025 Patient encounter procedure 11/10/2025 10:30 AM EST Office Visit [facility] [address] [place] [address] Remy Segura MD [address] [place] [id number] [facility] Start: 09-09-2025 Screening for malignant neoplasm of colon [facility] Start: 08-23-2025 End: 08-23-2025 Patient encounter procedure 08/23/2025 11:30 AM EDT Office Visit [facility] [address] [place] [id number] Brendan Maciel PA-C [address] [place] [address] [facility] Start: 07-31-2025 COVID-19 Vaccine ( season) COVID-19 Vaccine () [facility] Start: 07-31-2025 Influenza vaccination Influenza Vaccine (#1) [facility] Start: 07-03-2025 End: 07-03-2025 Admission to same day surgery center 07/03/2025 11:00 AM EDT - 07/03/2025 1:00 PM EDT Surgery [facility] [address] [place] [address] Remy Segura MD [address] [place] [id number] Ablation-Complex [facility] Comment on above: Ablation-Complex Start: 07-03-2025 End: 07-03-2025 Patient encounter procedure 07/03/2025 10:00 AM EDT Appointment [facility] Card[facility] Non-Invasive [facility] [address] [place] [address] Remy Segura MD [address] [place] [id number] [facility] Start: 07-03-2025 Subsequent hospital visit by physician [facility] Procedural Care Unit Comment on above: Arrived Start: 06-13-2025 End: 06-06-2026 Basic metabolic 2000 panel - Serum or Plasma Basic metabolic panel Lab Routine Fibrosing mediastinitis Expected: 06/13/2025, Expires: 06/06/2026 [facility] Work Phone: Comment on above: Expected: 06/13/2025, Expires: Start: 05-31-2025 Patient discharge [facility] Start: 05-30-2025 Care planning and problem solving actions [facility] Start: 05-30-2025 Following clinical pathway protocol [facility] Start: 05-30-2025 Assessment of risk of venous thromboembolism [facility] Start: 05-30-2025 Incentive spirometry [facility] Start: 05-30-2025 Insertion of catheter into peripheral vein [facility] Start: 05-30-2025 Measuring intake and output [facility] Start: 05-30-2025 Providing care according to standard [facility] Start: 05-30-2025 Provision of activity privileges [facility] Start: 05-30-2025 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 [facility] Start: 05-30-2025 Referral to service [facility] Start: 05-30-2025 [facility] Start: 05-30-2025 Verification routine [facility] Start: 05-30-2025 Admission procedure [facility] Start: 05-30-2025 Hospital admission, emergency, from emergency room, medical nature [facility] Start: 05-30-2025 Care planning and problem solving actions [facility] Start: 05-30-2025 [facility] Start: 04-04-2025 COVID-19 Vaccine ( season) COVID-19 Vaccine () [facility] Start: 09-13-2024 Fall risk assessment Falls Risk Assessment [facility] Start: 03-18-2024 End: 03-18-2024 Follow-up encounter 03/18/2024 2:30 PM EDT Follow-Up [facility] [address] [id number] Jass Pepe MD [address] [place] [address] [facility] Start: 03-11-2024 End: 03-11-[address] [facility] Start: 03-09-2024 End: 03-09-[address] [facility] Start: 03-07-2024 End: 03-07-[address] [facility] Start: 03-04-2024 End: 03-04-2024 ambulatory 03/04/2024 10:45 AM EDT Treatment [facility] [address] [place] [address] Jass Pepe MD [address] [id number] Gabriel Tovar PTA [facility] Start: 03-02-2024 End: 03-02-2024 ambulatory 03/02/2024 10:45 AM EDT Treatment [facility] [address] [place] [address] Jass Pepe MD [address] [id number] Dajuan Arroyo, PT [facility] Start: 02-29-2024 End: 02-29-2024 ambulatory 02/29/2024 10:45 AM EDT Treatment [facility] [address] [place] [address] Jass Pepe MD [address] [id number] Gabriel Tovar PTA [facility] Start: 02-26-2024 End: 02-26-2024 ambulatory 02/26/2024 10:45 AM EDT Treatment [facility] [address] [place] [address] Jass Pepe MD [address] [place] [address] Sherlyn Villavicencio PTA [facility] Start: 02-24-2024 End: 02-24-2024 ambulatory 02/24/2024 10:45 AM EDT Treatment [facility] [address] [place] [phone] Jass Pepe MD [address] [place] [address] Gabriel Tovar PTA [facility] Start: 02-22-2024 End: 02-22-2024 ambulatory 02/22/2024 10:45 AM EDT Treatment [facility] [address] [place] [phone] Jass Pepe MD [address] [place] [address] Dajuan Arroyo, PT [facility] Start: 02-19-2024 End: 02-19-2024 ambulatory 02/19/2024 10:45 AM EDT Treatment [facility] [address] [place], [place] [id number] Jass Pepe MD [address] [place] [address] Gabriel Tovar PTA [facility] Start: 02-17-2024 End: 02-17-2024 ambulatory 02/17/2024 10:45 AM EDT [facility] [address] [place] [address] Jass Pepe MD [address] [place] [address] Gabriel Tovar, MAUDE Discharge Disposition: Home [facility] Start: 02-15-2024 End: 02-15-2024 ambulatory 02/15/2024 10:45 AM EDT Evaluation [facility] [address] [place] [address] Jass Pepe MD [address] [place] [address] Dajuan Arroyo PT Discharge Disposition: Home [facility] Start: 02-12-2024 End: 02-12-2024 Follow-up encounter 02/12/2024 2:15 PM EDT Follow-Up [facility] [address] [id number] Jass Pepe MD [address] [place] [address] [facility] Start: 02-12-2024 End: 02-12-2024 Home visit 02/12/2024 8:00 AM EDT Home Care Visit [address] [address] Kendall Graff, PT [facility] Start: 02-11-2024 End: 02-11-2024 Patient encounter procedure [facility] Start: 02-11-2024 End: 02-11-2024 Home visit 02/11/2024 3:30 AM EDT Home Care Visit [address] [address] Kendall Graff, PT [facility] Start: 02-11-2024 End: 02-11-2024 Patient encounter procedure 02/11/[address] [address] Lindsey Centeno RN [facility] Start: 02-10-2024 End: 02-10-2024 Home visit 02/10/2024 10:00 AM EDT Home Care Visit [address] [address] Cristhian Byrnes PTA [facility] Start: 02-09-2024 End: 02-10-2024 Home visit [facility] Start: 02-08-2024 End: 02-09-2024 Home visit [facility] Start: 02-05-2024 End: 02-05-2024 Home visit 02/05/2024 10:00 AM EST Home Care Visit [address] [address] Cristhian Byrnes PTA [facility] Start: 02-05-2024 End: 02-05-2024 Home visit [facility] Start: 02-03-2024 End: 02-03-2024 Home visit 02/03/2024 11:00 AM EST Home Care Visit [address] [address] Cristhian Byrnes PTA [facility] Start: 02-03-2024 End: 02-03-2024 Home visit 02/03/2024 Home Care Visit [address] [address] Cristhian Byrnes PTA [facility] Start: 01-28-2024 End: 01-28-2024 Home visit [facility] Start: 01-26-2024 End: 01-26-2024 Admission to same day surgery center 01/26/2024 2:11 PM EST - 01/26/2024 4:14 PM EST Surgery [facility] [address] [place] [address] Jass Pepe MD [address] [place], [place] [id number] Right total knee replacement Robotic [facility] Comment on above: Right total knee replacement Robotic Start: 01-26-2024 End: 01-26-2024 ARTHROPLASTY KNEE TOTAL ROBOTIC ARTHROPLASTY KNEE TOTAL ROBOTIC Osteoarthritis of right knee, unspecified osteoarthritis type 01/26/2024 2:11 PM EST [facility] Start: 01-26-2024 Subsequent hospital visit by physician 01/26/2024 2:11 PM EST Hospital Encounter [facility] [address] [place] [address] Jass Pepe MD [address] [place] [address] [facility] Start: 01-15-2024 End: 01-15-2024 Patient encounter procedure 01/15/2024 1:15 PM EST Surgical Consult [facility] [address] [place] [address] Jass Pepe MD [address] [place] [address] [facility] Start: 2023 End: 2023 Admission to same day surgery center 2023 7:05 AM EST - 2023 9:08 AM EST Surgery [facility] [address] [facility] [facility] [place] [address] Jass Pepe MD [address] [place] [address] Right total knee replacement Robotic [facility] Comment on above: Right total knee replacement Robotic Start: 2023 End: 2023 ARTHROPLASTY KNEE TOTAL ROBOTIC ARTHROPLASTY KNEE TOTAL ROBOTIC Osteoarthritis of right knee, unspecified osteoarthritis type 2023 7:05 AM EST [facility] Start: 2023 Subsequent hospital visit by physician [facility] Start: 12-11-2023 End: 12-11-2023 Patient encounter procedure 12/11/2023 1:00 PM EST Surgical Consult [facility] [address] [place] [address] Jass Pepe MD [address] [place] [address] [facility] Start: 12-03-2023 End: 12-03-2023 Patient encounter procedure 12/03/2023 10:30 AM EST Appointment [facility] CT Scan [address] [place] [address] Jass Pepe MD [address] [place] [address] [facility] [address] Scan Start: 12-03-2023 End: 12-03-2023 Patient encounter procedure 12/03/2023 7:15 AM EST Office Visit [facility] Preadmission Testing [address] [place] [phone] [facility] Start: 11-30-2023 Administration of herpes zoster vaccine Zoster Vaccines (2 of 2) [facility] Start: 07-31-2023 COVID-19 Vaccine ( season) COVID-19 Vaccine ( season) [facility] Start: 07-31-2023 Influenza vaccination Sequential Influenza Vaccine (#1) [facility] Start: 06-25-2023 Simple repair f/e/e/n/l/m 2.5cm/< RPR F/E/E/N/L/M 2.5 CM/< [facility] Start: 01-21-2023 End: 01-21-2023 Patient encounter procedure [facility] Start: 07-31-2022 Influenza vaccination Sequential Influenza Vaccine (#1) [facility] Start: 04-28-2022 COVID-19 Vaccine (5 - Booster for Pfizer series) COVID-19 Vaccine (5 - Booster for Pfizer series) [facility] Start: 04-04-2022 End: 04-04-2022 Patient encounter procedure 04/04/2022 Office Visit Cardiology Blaine Silveira MD [address] [place] [address] [facility] Start: 02-19-2022 End: 02-19-2022 Patient encounter procedure [facility] Start: 02-03-2022 End: 02-03-2022 Telemedicine consultation with patient 02/03/2022 Telemedicine Telephone Cardiology Angelica Randall, RN [facility] [address] [facility] [address] [place] [address] [facility] Start: 01-21-2022 End: 01-21-2022 Admission to same day surgery center 01/21/2022 Surgery Lindsey Plummer MD [address] [facility] [address] [place] [address] Transcatheter Aortic Valve Replacement [facility] Comment on above: Transcatheter Aortic Valve Replacement Start: 01-21-2022 Subsequent hospital visit by physician 01/21/2022 Hospital Encounter Lindsey Plummer MD [address] [facility] [address] [place] [address] [facility] Start: 01-21-2022 End: 01-21-2022 TRANSCATHETER AORTIC VALVE REPLACEMENT FEMORAL APPROACH TRANSCATHETER AORTIC VALVE REPLACEMENT FEMORAL APPROACH severe aortic stenosis 01/21/2022 10:30 AM EST [facility] Start: 01-17-2022 End: 01-17-2022 Patient encounter procedure 01/17/2022 Office Visit Lab Angelica Randall, RN [facility] [address] [place] [address] [facility] Start: 01-15-2022 End: 01-15-2022 Admission to same day surgery [facility] Comment on above: Left Heart Cath Possbile PTCA/Stent LEFT HEART CATH Start: 01-15-2022 Subsequent hospital visit by physician 01/15/2022 Hospital Encounter Silvio Mckeon MD [address] [facility] [address] [place] [address] [facility] Procedural Care Unit Start: 01-09-2022 End: 01-10-2022 Patient encounter procedure [facility] Start: 01-09-2022 Subsequent hospital visit by physician [facility] Start: 01-06-2022 End: 01-06-2022 Patient encounter procedure 01/06/2022 Office Visit Lab Dye, Angelica Taylor, RN [facility] [address] [id number] [facility] Start: 12-25-2021 End: 08-25-2022 Echocardiography Echocardiogram complete Echocardiography Routine Nonrheumatic aortic valve insufficiency Expected: 12/25/2021 (Approximate), Expires: 08/25/2022 [facility] Comment on above: Expected: 12/25/2021 (Approximate), Expi res: 08/25/2022 Start: 07-31-2021 Influenza vaccination Sequential Influenza Vaccine (#1) [facility] Start: 06-21-2021 End: 06-21-2021 Patient encounter procedure 06/21/2021 Appointment Cardiology Blaine Silveira MD [address] [address] [phone] [facility] Start: 05-25-2021 Pneumococcal vaccination Pneumococcal Vaccine Age 65+ (2 of 2 - PPSV23) [facility] Start: 07-31-2020 Influenza vaccination given Sequential Influenza Vaccine (#1) [facility] Start: 2019 Fall risk assessment Falls Risk Assessment [facility] Start: 07-31-2019 Influenza vaccination given SEQUENTIAL INFLUENZA VACCINE (#1) [facility] Start: 06-14-2019 End: 06-14-2019 Appointment 06/14/2019 Appointment Cardiology Blaine Silveira MD [address] [address] [phone] [facility] Start: 07-31-2017 Influenza vaccination SEQUENTIAL INFLUENZA VACCINE (#1) [facility] Work Phone: Start: 2014 Respiratory Syncytial Virus Immunization: Risk, 60-74 Risk, or 75+ (1 - Risk 60-74 years 1-dose series) Respiratory Syncytial Virus Immunization: Risk, 60-74 Risk, or 75+ (1 - Risk 60-74 years 1-dose series) [facility] Start: 2014 Zoster vacc, sc ZOSTER VACCINE [facility] Work Phone: Start: 2004 Administration of herpes zoster vaccine Zoster Vaccines (1 of 2) [facility] Start: 2004 Screening for malignant neoplasm of colon [facility] Start: 1994 Screening for malignant neoplasm of breast Mammogram [facility] Start: 1994 Screening mammography Mammogram [facility] Start: 1970 COVID-19 Vaccine (1 of 2) COVID-19 Vaccine (1 of 2) [facility] Start: 1966 Adolescent depression screening assessment Depression Screening (PHQ9) [facility] Start: 1966 Depression screening using PHQ-9 (Patient Health Questionnaire 9) score [facility] Start: 1960 Pneumococcal Vaccine: Age 65+ (1 of 2 - PPSV23) Pneumococcal Vaccine: Age 65+ (1 of 2 - PPSV23) [facility] Start: 1957 History and physical examination, annual for health maintenance Wellness Visit [facility] Start: 1957 Medicare Wellness Visit Medicare Wellness Visit [facility] Start: 1954 Fall risk assessment Falls Risk Assessment [facility] Start: 1954 Physical therapy management PT Plan of Care [facility] Start: 1954 Screening colonoscopy COLONOSCOPY [facility] Work Phone: Start: 1954 Screening for malignant neoplasm of cervix PAP SMEAR [facility] Work Phone: Start: 1954 Screening for malignant neoplasm of colon [facility] Start: 1954 Screening for osteoporosis Dexa Scan [facility] Start: 1954 Screening mammography Mammogram [facility] Start: 1954 Tetanus vaccination TETANUS EVERY 10 YR [facility] Work Phone: End: 12-31-2022 12 lead ECG ECG 12 Lead ECG Routine Aortic valve stenosis, severe Pre-operative cardiovascular examination 1 Occurrences starting 12/31/2021 until 12/31/2022 [facility] Comment on above: 1 Occurrences starting 12/31/2021 until 12/31/2022 End: 01-22-2023 12 lead ECG ECG 12 Lead ECG Routine S/P TAVR (transcatheter aortic valve replacement) 1 Occurrences starting 01/22/2022 until 01/22/2023 [facility] Comment on above: 1 Occurrences starting 01/22/2022 until 01/22/2023 End: 06-19-2023 12 lead ECG ECG 12 Lead ECG Routine S/P TAVR (transcatheter aortic valve replacement) 1 Occurrences starting 06/19/2022 until 06/19/2023 [facility] Comment on above: 1 Occurrences starting 06/19/2022 until 06/19/2023 End: 09-25-2024 12 lead ECG ECG 12 Lead ECG Routine Osteoarthritis of right knee, unspecified osteoarthritis type 1 Occurrences starting 09/27/2023 until 09/25/2024 [facility] Comment on above: 1 Occurrences starting 09/27/2023 until 09/25/2024 End: 06-06-2026 12 lead ECG ECG 12 lead ECG Routine Typical atrial flutter (HCC) 1 Occurrences starting 06/06/2025 until 06/06/2026 [facility] Comment on above: 1 Occurrences starting 06/06/2025 until 06/06/2026 End: 08-22-2026 12 lead ECG ECG 12 lead ECG Routine Atrial flutter, unspecified type (HCC) 1 Occurrences starting 08/22/2025 until 08/22/2026 [facility] Work Phone: Comment on above: 1 Occurrences starting 08/22/2025 until 08/22/2026 ABLATION- COMPLEX ABLATION- COMPLEX [facility] ARTHROPLASTY KNEE TO FARIHA ROBOTIC ARTHROPLASTY KNEE TOTAL ROBOTIC Osteoarthritis of right knee, unspecified osteoarthritis type [facility] End: 02-13-2023 Basic metabolic 2000 panel - Serum or Plasma Basic metabolic panel Lab Routine S/P TAVR (transcatheter aortic valve replacement) 1 Occurrences starting 02/13/2022 until 02/13/2023 [facility] Comment on above: 1 Occurrences starting 02/13/2022 until 02/13/2023 End: 01-19-2024 Basic metabolic 2000 panel - Serum or Plasma Basic metabolic panel Lab Routine S/P TAVR (transcatheter aortic valve replacement) 1 Occurrences starting 01/19/2023 until 01/19/2024 [facility] Comment on above: 1 Occurrences starting 01/19/2023 until 01/19/2024 End: 09-25-2024 Basic metabolic 2000 panel - Serum or Plasma Basic metabolic panel Lab Routine Osteoarthritis of right knee, unspecified osteoarthritis type 1 Occurrences starting 09/27/2023 until 09/25/2024 [facility] Comment on above: 1 Occurrences starting 09/27/2023 until 09/25/2024 End: 06-06-2026 Basic metabolic 2000 panel - Serum or Plasma Basic metabolic panel Lab Routine Typical atrial flutter (HCC) 1 Occurrences starting 06/06/2025 until 06/06/2026 [facility] Comment on above: 1 Occurrences starting 06/06/2025 until 06/06/2026 Cardiac catheterization Cardiac Catheterization Cardiac Cath Routine 01/21/2022 12:46 PM EST [facility] End: 02-28-2023 Carotid artery doppler assessment Carotid Duplex Vascular Ultrasound Routine Aortic valve stenosis, severe Pre-operative cardiovascular examination Other specified symptoms and signs involving the circulatory and respiratory systems 1 Occurrences starting 12/31/2021 until 02/28/2023 [facility] Comment on above: 1 Occurrences starting 12/31/2021 until 02/28/2023 End: 02-13-2023 CBC panel - Blood by Automated count CBC Lab Routine S/P TAVR (transcatheter aortic valve replacement) 1 Occurrences starting 02/13/2022 until 02/13/2023 [facility] Comment on above: 1 Occurrences starting 02/13/2022 until 02/13/2023 End: 01-19-2024 CBC panel - Blood by Automated count CBC Lab Routine S/P TAVR (transcatheter aortic valve replacement) 1 Occurrences starting 01/19/2023 until 01/19/2024 [facility] Comment on above: 1 Occurrences starting 01/19/2023 until 01/19/2024 End: 06-06-2026 CBC panel - Blood by Automated count CBC Lab Routine Typical atrial flutter (HCC) 1 Occurrences starting 06/06/2025 until 06/06/2026 [facility] Work Phone: Comment on above: 1 Occurrences starting 06/06/2025 until 06/06/2026 End: 09-25-2024 Complete blood count with white cell differential, manual CBC and differential Lab Routine Osteoarthritis of right knee, unspecified osteoarthritis type Hypertension, unspecified type 1 Occurrences starting 09/27/2023 until 09/25/2024 [facility] Comment on above: 1 Occurrences starting 09/27/2023 until 09/25/2024 End: 12-31-2022 Complete PFT with pre and post bronchodilators Complete PFT with pre and post bronchodilators PFT Routine Aortic valve stenosis, severe Pre-operative cardiovascular examination 1 Occurrences starting 12/31/2021 until 12/31/2022 [facility] Work Phone: Comment on above: 1 Occurrences starting 12/31/2021 until 12/31/2022 End: 09-25-2024 CT Knee Right Without Contrast CT Knee Right Without Contrast Imaging Routine Osteoarthritis of right knee, unspecified osteoarthritis type 1 Occurrences starting 09/27/2023 until 09/25/2024 [facility] Comment on above: 1 Occurrences starting 09/27/2023 until 09/25/2024 End: 06-06-2020 Echocardiography Echocardiogram complete Echocardiography Routine Nonrheumatic aortic valve insufficiency 1 Occurrences starting 06/06/2019 until 06/06/2020 [facility] Comment on above: 1 Occurrences starting 06/06/2019 until 06/06/2020 End: 08-11-2022 Echocardiography Echocardiogram complete Echocardiography Routine Nonrheumatic aortic valve insufficiency 1 Occurrences starting 06/10/2021 until 08/11/2022 [facility] Comment on above: 1 Occurrences starting 06/10/2021 until 08/11/2022 End: 03-22-2023 Echocardiography Echocardiogram complete Echocardiography Routine S/P TAVR (transcatheter aortic valve replacement) 1 Occurrences starting 01/22/2022 until 03/22/2023 [facility] Work Phone: Comment on above: 1 Occurrences starting 01/22/2022 until 03/22/2023 End: 01-22-2022 Echocardiography Echocardiogram complete Echocardiography Routine Once for 1 Occurrences starting 01/22/2022 until 01/22/2022 [facility] Work Phone: Comment on above: Once for 1 Occurrences starting 01/22/20 until 01/22/2022 Echocardiography Echocardiogram complete Echocardiography Routine 01/22/2022 10:04 AM EST [facility] End: 08-20-2023 Echocardiography Echocardiogram complete Echocardiography Routine S/P TAVR (transcatheter aortic valve replacement) 1 Occurrences starting 06/19/2022 until 08/20/2023 [facility] Work Phone: Comment on above: 1 Occurrences starting 06/19/2022 until 08/20/2023 Hemoglobin A1c/Hemoglobin.total in Blood [facility] End: 09-25-2024 Incentive spirometry - Initial Instruction Incentive spirometry - Initial Instruction Respiratory Care Routine Osteoarthritis of right knee, unspecified osteoarthritis type 1 Occurrences starting 09/27/2023 until 09/25/2024 [facility] Work Phone: Comment on above: 1 Occurrences starting 09/27/2023 until 09/25/2024 End: 12-31-2022 Methicillin resistant Staphylococcus aureus [Presence] in Unspecified specimen by Organism specific culture MRSA Culture/Screen Microbiology Routine Aortic valve stenosis, severe Pre-operative cardiovascular examination 1 Occurrences starting 12/31/2021 until 12/31/2022 [facility] Comment on above: 1 Occurrences starting 12/31/2021 until 12/31/2022 Methicillin resistan t Staphylococcus aureus [Presence] in Unspecified specimen by Organism specific culture MRSA Culture/Screen Microbiology Routine Aortic valve stenosis, severe Pre-operative cardiovascular examination 01/09/2022 9:45 AM EST [facility] Work Phone: End: 09-25-2024 Methicillin resistant Staphylococcus aureus [Presence] in Unspecified specimen by Organism specific culture MRSA Culture Microbiology Routine Osteoarthritis of right knee, unspecified osteoarthritis type 1 Occurrences starting 09/27/2023 until 09/25/2024 [facility] Comment on above: 1 Occurrences starting 09/27/2023 until 09/25/2024 End: 02-13-2023 Natriuretic peptide.B prohormone N-Terminal [Mass/volume] in Serum or Plasma NT PRO BNP Lab Routine S/P TAVR (transcatheter aortic valve replacement) Shortness of breath 1 Occurrences starting 02/13/2022 until 02/13/2023 [facility] Comment on above: 1 Occurrences starting 02/13/2022 until 02/13/2023 Patient Education ED Head Injury (Adult) ED Laceration: All Closures [facility] Work Phone: Patient referral [facility] Work Phone: End: 06-11-2022 Radionuclide myocardial perfusion study NM Myocardial Perfusion Multiple SPECT Imaging Routine Coronary artery disease involving igiugig coronary artery of igiugig heart without angina pectoris 1 Occurrences starting 06/10/2021 until 06/11/2022 [facility] Comment on above: 1 Occurrences starting 06/10/2021 until 06/11/2022 End: 01-09-2023 SARS-CoV-2 (COVID-19) RdRp gene [Presence] in Respiratory specimen by MAXIMUS with probe detection COVID-19, Molecular Microbiology Routine Encounter for preoperative screening laboratory testing for COVID-19 virus 1 Occurrences starting 01/09/2022 until 01/09/2023 [facility] Work Phone: Comment on above: 1 Occurrences starting 01/09/2022 until 01/09/2023 End: 01-13-2023 SARS-CoV-2 (COVID-19) RdRp gene [Presence] in Respiratory specimen by MAXIMUS with probe detection COVID-19, Molecular Microbiology Routine Encounter for preprocedure screening laboratory testing for COVID-19 1 Occurrences starting 01/13/2022 until 01/13/2023 [facility] Work Phone: Comment on above: 1 Occurrences starting 01/13/2022 until 01/13/2023 End: 08-07-2026 Transesophageal echocardiography Echocardiogram transesophageal Echocardiography Routine Typical atrial flutter (HCC) 1 Occurrences starting 06/06/2025 until 08/07/2026 [facility] Comment on above: 1 Occurrences starting 06/06/2025 until 08/07/2026 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 Kirill Newell MD Work Phone: [facility] 10-05-2024 influenza virus vaccine, unspecified formulation Blaine Silveira MD Work Phone: [facility] 01-11-[address] Kirill Newell MD Work Phone: [facility] Payers Date Payer Category Payer Self-pay [id number] 2019 Medicare MEDICARE MEDICAR E PART A & B [id number] 2019-Present [place] [id number] 2019 Medicare [id number] 1.13.385.2 .7.3.647354.315 2019 Medicare [id number] 2019 Unknown [id number] 2000 Unknown C UHC/UHONE/[employer] LDEN RULE xxxxxxxxx 2000-Present xxxxxxxxx 1.2.840.778411.1.13.385.2 .7.3.859309.315 2000 Unknown [id number] 2.16.840.1.074134.3.249.1 3 1954 Unknown [id number] 2.16.840.1.423194.3.579.2 .1068 1954 Unknown [id number] 2.16.840.1.941195.3.579.2 .1068 1954 Unknown [id number] 2.16.840.1.593227.3.579.2 .1068 1954 Unknown [id number] 2.16.840.1.176706.3.579.2 .1068 1954 Unknown [id number] 2.16.840.1.317359.3.579.2 .1068 1954 Unknown [id number] 2.16.840.1.793002.3.579.2 .1068 1954 Unknown [id number] 2.16.840.1.147768.3.579.2 .1068 1954 Unknown [id number] 2.16.840.1.150220.3.579.2 .1068 1954 Unknown [id number] 2.16.840.1.294280.3.579.2 .1068 1954 Unknown [id number] 2.16.840.1.641161.3.579.2 .1068 1954 Unknown [id number] 2.16.840.1.502522.3.579.2 .1068 1954 Unknown [id number] 2.16.840.1.736973.3.579.2 .1068 1954 Unknown [id number] 2.16.840.1.685927.3.579.2 .1068 1954 Unknown [id number] 2.16.840.1.169175.3.579.2 .1068 1954 Unknown [id number] 2.16.840.1.256725.3.579.2 .1068 1954 Unknown [id number] 2.16.840.1.242688.3.579.2 .1068 1954 Unknown [id number] 2.16.840.1.449548.3.579.2 .1068 1954 Unknown [id number] 2.16.840.1.753747.3.579.2 .1068 1954 Unknown [id number] 2.16.840.1.795928.3.579.2 .1068 1954 Unknown [id number] 2.16.840.1.528667.3.579.2 .1068 1954 Unknown [id number] 2.16.840.1.195115.3.579.2 .1068 1954 Unknown [id number] 2.16.840.1.204859.3.579.2 .1068 1954 Unknown [id number] 2.16.840.1.614139.3.579.2 .1068 1954 Unknown [id number] 2.16.840.1.228264.3.579.2 .1068 1954 Unknown [id number] 2.16.840.1.753091.3.579.2 .1068 1954 Unknown [id number] 2.16.840.1.750552.3.579.2 .1068 1954 Unknown [id number] 2.16.840.1.479337.3.579.2 .1068 1954 Unknown [id number] 2.16.840.1.182995.3.579.2 .1068 1954 Unknown [id number] 2.16.840.1.275572.3.579.2 .1068 1954 Unknown [id number] 2.16.840.1.402165.3.579.2 .1068 1954 Unknown [id number] 2.16.840.1.045136.3.579.2 .1068 1954 Unknown [id number] 2.16.840.1.150636.3.579.2 .1068 1954 Unknown [id number] 2.16.840.1.620315.3.579.2 .1068 1954 Unknown [id number] 2.16.840.1.579441.3.579.2 .1068 1954 Unknown [id number] 2.16.840.1.369647.3.579.2 .1068 1954 Unknown [id number] 2.16.840.1.409185.3.579.2 .1068 1954 Unknown [id number] 2.16.840.1.088174.3.579.2 .1068 1954 Unknown [id number] 2.16.840.1.601858.3.579.2 .1954 Unknown [id number] 2.16.840.1.090215.3.579.2 .1954 Unknown [id number] 2.16.840.1.576540.3.579.2 .1242 1954 Unknown [id number] 2.16.840.1.134930.3.579.2 .1243 1954 Unknown [id number] 2.16.840.1.272981.3.579.2 .124 1954 Unknown [id number] 2.16.840.1.738103.3.579.2 .1242 1954 Unknown [id number] 2.16.840.1.540559.3.579.2 .1242 1954 Unknown [id number] 2.16.840.1.884879.3.579.2 .1242 1954 Unknown [id number] 2.16.840.1.263732.3.579.2 .1242 1954 Unknown [id number] 2.16.840.1.974192.3.579.2 .1242 1954 Unknown [id number] 2.16.840.1.583962.3.579.2 .1242 1954 Unknown [id number] 2.16.840.1.595642.3.579.2 .1242 1954 Unknown [id number] 2.16.840.1.171351.3.579.2 .1242 1954 Unknown [id number] 2.16.840.1.408378.3.579.2 .1242 1954 Unknown [id number] 2.16840.1.517628.3.579.2 .1954 Unknown [id number] 2.16.840.1.910931.3.579.2 .1954 Unknown [id number] 2.16.840.1.064135.3.579.2 .1954 Unknown [id number] 2.16.840.1.348461.3.579.2 .1954 Unknown [id number] 2.16.840.1.563621.3.579.2 .1954 Unknown [id number] 2.16.840.1.485123.3.579.2 .903 1954 Unknown [id number] 2.16.840.1.480106.3.579.2 .1954 Unknown [id number] 2.16.840.1.696227.3.579.2 .1954 Unknown [id number] 2.16.840.1.343775.3.579.2 .1954 Unknown [id number] 2.16.840.1.769220.3.579.2 .1954 Unknown [id number] 2.16.840.1.564852.3.579.2 1954 Unknown [id number] 2.16.840.1.088502.3.579.2 1954 Unknown [id number] 2.16.840.1.115652.3.579.2 1954 Unknown [id number] 2.16.840.1.326352.3.579.2 1954 Unknown [id number] 2.16.840.1.035935.3.579.2 1954 Unknown [id number] 2.16840.1.784689.3.579.2 .1954 Unknown [id number] 2.16.840.1.106530.3.579.2 .1954 Unknown [id number] 2.16.840.1.362783.3.579.2 .1954 Unknown [id number] 2.16.840.1.563653.3.579.2 .1954 Unknown [id number] 2.16.840.1.633530.3.579.2 .1954 Unknown [id number] 2.16.840.1.923904.3.579.2 .903 Miscellaneous or Other COMMERCIA L 1.2.840.850830.1.13.385.2 .7.9.159597.990.315 Unknown COMMERCIAL COMME RCIAL MISCELLANEOUS [id number] Effective for all dates [id number] 1.2.840.522330.1.13.385.2 .7.3.874009.315 Unknown COMMERCIAL COMME RCIAL MISCELLANEOUS [id number] Effective for all dates [phone] [id number] 1.2.840.767904.1.13.385.2 .7.3.278579.315 Unknown [id number] 2.840.1.036892.3.579.2 .462 Unknown [id number] 2.16840.1.706277.3.579.2 .462 Unknown [id number] 2.16840.1.679879.3.579.2 .462 Unknown [id number] 2.16840.1.825277.3.579.2 .462 Unknown [id number] 2.16840.1.975910.3.579.2 .462 Unknown [id number] 2.16840.1.109535.3.579.2 .462 Unknown [id number] 2.16840.1.548318.3.579.2 .462 Unknown [id number] 2.840.1.328216.3.579.2 .462 Social History Date Type Detail Facility Start: 06-08-2017 End: 01-21-2023 Tobacco smoking status NHIS Never smoker [facility] Start: 1955 Sex Assigned At Not on file [facility] Work Phone: Start: 06-06-2019 Alcohol Comment occasional [facility] Start: 06-11-2020 End: 01-21-2023 Tobacco use and exposure Never used [facility] Start: 06-11-2020 End: 08-23-2025 Alcohol intake Current drinker of alcohol (finding) [facility] Start: 06-10-2021 End: 08-23-2025 Alcohol intake [facility] Start: 01-11-2022 End: 01-21-2023 Exposure to SARS-CoV-2 (event) Not sure [facility] Start: 12-06-2019 End: 06-25-2023 Tobacco smoking status NHIS Unknown if ever smoked [facility] Start: 1955 Sex Assigned At Female [facility] Start: 09-14-2023 End: 08-23-2025 Tobacco use panel [facility] Start: 06-06-2019 Gender identity Identifies as female gender (finding) [facility] Start: 06-06-2019 Sexual orientation Heterosexual (finding) [facility] Lack of Transportati on (Medical) No [facility] Start: 08-23-2025 Alcohol Comment occasional Pt states 1 or 2 glasses of wine or mixed drinkper week [facility] Medical Equipment Procedure Code Equipment Code Equipment Origin al Text Equipment Identifier Dates Closure 6fr Angioseal Vip - [id number] Start: 01-15-2022 Closure Perclose Prostyle - [id number] Start: 01-21-2022 Valve 34mm Evolu t Pro Aortic - [id number] ()[id number] 7)[id number], [id number] FDA Start: 01-21-2022 Hemostat 2 X 4in Surgicel Snow Sterl - [id number] Start: 01-21-2022 Baseplate Sz3 Ti bial Tritanium Triathlon - [id number] ()[id number] 7)[id number], [id number] FDA Start: 01-26-2024 Component Sz3 Fe m Cr Rt Cementless Beaded W/Pa Triathlon - [id number] (01)[id number] 7)[id number])[id number], [id number] FDA Start: 01-26-2024 Patella 29mm Asymmetric Metal-Backed Tritanium Triathlon - [id number] (01)[id number] 7)[id number])[id number], [id number] FDA Start: 01-26-2024 Insert Sz3-11 Ti bial Cr X3 Triathlon 6659-Z-049-E - [id number] ()[id number] 7)[id number])[id number], [id number] FDA Start: 01-26-2024 Device 6-12fr Vascade Mvp Venous Vascular Closure - [id number] Start: 07-03-2025 Device 6-12fr Vascade Mvp Venous Vascular Closure - [id number] Start: 07-03-2025 Goals Date Patient Goal Desired Activity /State Functional Status Date Assessment Result Facility 05-31-2025 Functional status Ambulates [facility] Work Phone: Mental Status Date Assessment Result Facility 05-31-2025 Cognitive function Voice/Name [facility] Work Phone: 05-29-2025 Cognitive function Level Of Cons ciousness Awake;Alert;Appropriate [facility] Work Phone: Clinical Notes 06-10-2021 to 08-23-2025 Brendan Maciel PA-C - 08/23/2025 3:28 PM EDTPatient InstructionsTelephone Encounter - Samina Espinoza RN - 07/04/2025 12:44 PM EDTTelephone Encounter - Samina Espinoza RN - 07/04/2025 12:44 PM EDT Note Date & Type Note Facility 08-23-2025 Note Electrophysiology Cl inic Follow-up Heart & Vascular [facility] 08/23/2025 Brendan Maciel PA-C [address] [facility] [address] [place] [id number] Patient: Vickie Gonzalez Date of : 1955 (69 y.o.) PCP: Kirill Newell MD Primary Undertaker Helper: Dr Silveira Assessment and Plan: 1. Atrial flutter: Status post CTI dependent flutter ablation on 07/03/2025. Doing well since without any signs or symptoms to suggest recurrence. Continue Toprol-XL 50 mg daily and Eliquis 5 mg twice daily for anticoagulation. We discussed long-term indications for anticoagulation. There was one rhythm tracing from her Apple Watch from 07/02/2025 that could have been atrial fibrillation but difficult to tell. This has been sent in a [employer] message. Since she has not had any documented recurrences or any alerts from the Apple Watch showing AFL we could consider stopping Eliquis but would like to discuss this with Dr. Segura. However, if the rhythm tracing appears to show AF, our recommendations for long-term anticoagulation may differ. 2. Uncontrolled hypertension: Blood pressures in the office today were 190/100 and 188/82 mmHg. She is completely asymptomatic. I went over symptoms that would require an emergency room visit. Her PCP recently switched her from losartan to telmisartan. May continue ARB. She is taking Lasix as needed and beta-blockers as well. Added amlodipine 5 mg daily today. She does not check her blood pressures at home which I advised that she do beginning today. She should report these readings to her PCP and follow-up with his office for a BP check in 1 week. The patient and her verbalized understanding. 3. CAD status post CABG: On pravastatin and aspirin along with beta-shivam therapy and an ARB. Follow-up: Return in about 3 months (around 11/22/2025) for Next scheduled follow up. Chief Complaint: No chief complaint on file. Subjective History of Present Illness: Vickie Gonzalez is a 69 y.o. female with past medical history of atrial flutter, status post TAVR, CAD status post CABG, normal EF by JENNA 07/03/2025, fibrosing mediastinitis, and hypertension who presents for an ablation follow-up. On 07/03/2025, she underwent a CTI dependent flutter ablation. Since, she has not had any signs or symptoms to suggest recurrence of atrial arrhythmias. Has not received any alerts on her Apple watch. The patient is hypertensive in the office with an initial systolic pressure around 190/100 and 188/ 82 mmHg on repeat check. The patient is completely asymptomatic. She denies having chest pain, headaches, lightheadedness, shortness of breath, nausea. From review of the notes, her PCP recently switched her from losartan to telmisartan. The patient does not check her blood pressures at home at all. The EKG today shows sinus rhythm with a first-degree AV block with artifact and wandering baseline. Denies palpitations, near-syncope, syncope, pain/drainage/swelling from right groin access site used for the ablation, or bleeding issues on Eliquis. Review of Systems: All other systems were reviewed and are negative for pertinent findings except as noted above in the HPI. Past Medical History: Diagnosis Date Arrhythmia Arthritis Asthma Atrial flutter (HCC) Chest pain Fibrosing mediastinitis GERD (gastroesophageal reflux disease) Heart valve disease Hiatal hernia History of cardiac cath 12/2021 HTN (hypertension) Leg weakness Numbness in both legs Periaortic mass benign Skin cancer SOB (shortness of breath) on exertion Past Surgical History: Procedure Laterality Date ARTHROPLASTY KNEE TOTAL ROBOTIC ASSISTED Right 01/26/2024 Procedure: Right total knee replacement Robotic; Surgeon: Jass Pepe MD; Location: [facility] OR; Service: Ortho-Robotics CABG 02/11/2001 x3 CARDIAC CATHETERIZATION 2012 CARDIAC CATHETERIZATION Left 02/10/2001 EF 60% CARDIAC CATHETERIZATION Bilateral 08/26/2011 EF 55% CARDIAC CATHETERIZATION N/A 01/21/2022 Procedure: Transcatheter Aortic Valve Replacement; Surgeon: Lindsey Plummer MD; Location: [facility]; Service: Cardiovascular CARDIAC CATHETERIZATION N/A 01/21/2022 Procedure: Angiogram - Aortic Root; Surgeon: Lindsey Plummer MD; Location: [facility]; Service: Cardiovascular CARDIAC CATHETERIZATION N/A 01/21/2022 Procedure: Temporary Pacemaker; Surgeon: Lindsey Plummer MD; Location: [facility]; Service: Cardiovascular CARDIAC CATHETERIZATION N/A 01/21/2022 Procedure: Valvuloplasty - Aortic Valve; Surgeon: Lindsey Plummer MD; Location: [facility] OR; Service: Cardiovascular EP - INTERVENTION N/A 07/03/2025 Procedure: Ablation-Complex; Surgeon: Remy Segura MD; Location: [facility]; Service: Cardiovascular; Laterality: N/A; a-fluter, 2 hrs, RF, carto HC LEFT HEART CATH N/A 01/15/2022 Procedure: LE (more content not included)... [facility] 08-23-2025 History of Presen t illness Narrative Electrophysiology Clinic Follow-up Heart & Vascular [facility] 08/23/2025 Brendan Maciel PA-C [address] [facility] [address] [facility] [id number] Patient: Vickie Gonzalez Date of : 1955 (69 y.o.) PCP: Kirill Newell MD Primary Undertaker Helper: Dr Silveira Assessment and Plan: 1. Atrial flutter: Status post CTI dependent flutter ablation on 07/03/2025. Doing well since without any signs or symptoms to suggest recurrence. Continue Toprol-XL 50 mg daily and Eliquis 5 mg twice daily for anticoagulation. We discussed long-term indications for anticoagulation. There was one rhythm tracing from her Apple Watch from 07/02/2025 that could have been atrial fibrillation but difficult to tell. This has been sent in a [employer] message. Since she has not had any documented recurrences or any alerts from the Apple Watch showing AFL we could consider stopping Eliquis but would like to discuss this with Dr. Segura. However, if the rhythm tracing appears to show AF, our recommendations for long-term anticoagulation may differ. 2. Uncontrolled hypertension: Blood pressures in the office today were 190/100 and 188/82 mmHg. She is completely asymptomatic. I went over symptoms that would require an emergency room visit. Her PCP recently switched her from losartan to telmisartan. May continue ARB. She is taking Lasix as needed and beta-blockers as well. Added amlodipine 5 mg daily today. She does not check her blood pressures at home which I advised that she do beginning today. She should report these readings to her PCP and follow-up with his office for a BP check in 1 week. The patient and her verbalized understanding. 3. CAD status post CABG: On pravastatin and aspirin along with beta-shivam therapy and an ARB. Follow-up: Return in about 3 months (around 11/22/2025) for Next scheduled follow up. Chief Complaint: No chief complaint on file. Subjective History of Present Illness: Vickie Gonzalez is a 69 y.o. female with past medical history of atrial flutter, status post TAVR, CAD status post CABG, normal EF by JENNA 07/03/2025, fibrosing mediastinitis, and hypertension who presents for an ablation follow-up. On 07/03/2025, she underwent a CTI dependent flutter ablation. Since, she has not had any signs or symptoms to suggest recurrence of atrial arrhythmias. Has not received any alerts on her Apple watch. The patient is hypertensive in the office with an initial systolic pressure around 190/100 and 188/ 82 mmHg on repeat check. The patient is completely asymptomatic. She denies having chest pain, headaches, lightheadedness, shortness of breath, nausea. From review of the notes, her PCP recently switched her from losartan to telmisartan. The patient does not check her blood pressures at home at all. The EKG today shows sinus rhythm with a first-degree AV block with artifact and wandering baseline. Denies palpitations, near-syncope, syncope, pain/drainage/swelling from right groin access site used for the ablation, or bleeding issues on Eliquis. Review of Systems: All other systems were reviewed and are negative for pertinent findings except as noted above in the HPI. Past Medical History: Diagnosis Date Arrhythmia Arthritis Asthma Atrial flutter (HCC) Chest pain Fibrosing mediastinitis GERD (gastroesophageal reflux disease) Heart valve disease Hiatal hernia History of cardiac cath 12/2021 HTN (hypertension) Leg weakness Numbness in both legs Periaortic mass benign Skin cancer SOB (shortness of breath) on exertion Past Surgical History: Procedure Laterality Date ARTHROPLASTY KNEE TOTAL ROBOTIC ASSISTED Right 01/26/2024 Procedure: Right total knee replacement Robotic; Surgeon: Jass Pepe MD; Location: [facility] OR; Service: Ortho-Robotics CABG 02/11/2001 x3 CARDIAC CATHETERIZATION 2012 CARDIAC CATHETERIZATION Left 02/10/2001 EF 60% CARDIAC CATHETERIZATION Bilateral 08/26/2011 EF 55% CARDIAC CATHETERIZATION N/A 01/21/2022 Procedure: Transcatheter Aortic Valve Replacement; Surgeon: Lindsey Plummer MD; Location: [facility]; Service: Cardiovascular CARDIAC CATHETERIZATION N/A 01/21/2022 Procedure: Angiogram - Aortic Root; Surgeon: Lindsey Plummer MD; Location: [facility]; Service: Cardiovascular CARDIAC CATHETERIZATION N/A 01/21/2022 Procedure: Temporary Pacemaker; Surgeon: Lindsey Plummer MD; Location: [facility]; Service: Cardiovascular CARDIAC CATHETERIZATION N/A 01/21/2022 Procedure: Valvuloplasty - Aortic Valve; Surgeon: Lindsey Plummer MD; Location: [facility]; Service: Cardiovascular EP - INTERVENTION N/A 07/03/2025 Procedure: Ablation-Complex; Surgeon: Remy Segura MD; Location: [facility]; Service: Cardiovascular; Laterality: N/A; a-fluter, 2 hrs, RF, carto HC LEFT HEART CATH N/A 01/15/2022 Procedure: LEFT HEART CATH; Surgeon: Silvio Mckeon MD; Location: [facility]; Service: Cardiovascular TAVR FEMORAL APPROACH N/A 01/21/2022 Procedure: TRANSCATHETER AORTIC VALVE REPLACEMENT FEMORAL APPROACH; Surgeon: Meir Arthur MD; Location: [facility]; Service: Cardiothoracic TOTAL KNEE ARTHROPLASTY Left Vital Signs: BP (!) 188/82 (BP Location: Other (Comment), Patient Position: Sitting, BP Cuff Size: X-large Adult) Comment (BP Location): Left Forearm Pulse 77 Ht 5' 6 Wt 115.2 kg (254 lb) SpO2 95% BMI 41.00 kg/m Physical Examination: Vital Signs: General: No acute distress Head/Neck: Head- normocephalic, Face- symmetrical, Eyes- EOMI Cardiovascular: Regular rhythm and rate. Normal S1, S2, no murmurs. No JVD appreciated Respiratory: Clear to ausculation bilaterally without wheezing, rhonchi, rales. No use of accessory muscles Abdominal: Soft, non-tender, non-distended Extremities: No peripheral edema Neurological: Alert and oriented x 3 Skin: Normal turgor, intact Musculoskeletal: Moves all extremities to command HOME Medications: Current Medications[1] Labs: I personally reviewed and interpreted the labs documented below. Lab Results Component Value Date HGB 12.3 01/07/2024 HCT 39.7 01/07/2024 WBC 6.89 01/07/2024 CREATININE 0.99 06/14/2025 BUN 20 01/07/2024 K 4.4 01/07/2024 NA 137 01/07/2024 MG 1.8 01/21/2022 GLUCOSE 96 01/07/2024 AST 27 01/09/2022 ALT 11 01/09/2022 ALKPHOS 121 01/09/2022 HGBA1C 6.1 (H) 01/09/2022 Note: This dictation was generated using [employer] voice recognition software. Please excuse any grammatical or spelling errors that may have occurred using the system. [1] Current Outpatient Medications Medication Sig Dispense Refill aspirin 81 mg chewable tablet b complex vitamins tablet Take 1 (one) tablet by mouth daily . CITCWUU-CUTKHTGWC-KRSU ORAL Take 1 tablet by mouth daily . cholecalciferol, vitamin D3, 50 mcg (2,000 unit) cap Take 1 (one) capsule by mouth daily . Eliquis 5 mg Tab Take 1 (one) tablet (5 mg total) by mouth 2 (two) times a day . 60 tablet 2 furosemide (Lasix) 20 MG tablet Take 1 (one) tablet (20 mg total) by mouth daily . (Patient taking differently: Take 1 (one) tablet (20 mg total) by mouth daily as needed (PRN) .) 30 tablet 11 lactobacillus combo no.11 (Probiotic) 15 billion cell CpSP Take by mouth daily . magnesium gluconate (MAGONATE) 27.5 mg magne- sium (500 mg) tablet Take 1 (one) tablet (500 mg total) by mouth once daily . (Patient taking differently: Take 1 (one) tablet (500 mg total) by mouth once daily 325mg 2x daily .) metoprolol succinate (TOPROL-XL) 50 MG 24 hr tablet Take 1 (one) tablet (50 mg total) by mouth daily . (Patient taking differently: Take 1 (one) tablet (50 mg total) by mouth daily X2 tablets for a total of 100mg in AM .) 30 tablet 0 montelukast (SINGULAIR) 10 mg tablet Take 1 (one) tablet (10 mg total) by mouth nightly . pravastatin (PRAVACHOL) 40 MG tablet Take 1 (one) tablet (40 mg total) by mouth nightly . 90 tablet 0 telmisartan (MICARDIS) 80 MG tablet Take 1 (one) tablet (80 mg total) by mouth daily . amLODIPine (NORVASC) 5 MG tablet Take 1 (one) tablet (5 mg total) by mouth daily . 30 tablet 11 No current facility-administered medications for this visit. documented in this encounter [facility] 08-23-2025 Instructions Brendan Maciel PA-C - 08/23/2025 11:49 AM EDT Please check your blood pressures at home and report these readings to your PCP for further recommendations. If you develop any headaches, lightheadedness, shortness of breath, or chest pain, please go to the ED. Otherwise, continue your medications and call your primary care provider's office today. Start amlodipine 5 mg daily and follow up with your PCP for a blood pressure check in a week. Call them today and make an appointment for a BP check. Stay on Eliquis 5 mg one tablet twice daily for now. Send us the EKG tracing that was requested. documented in this encounter [facility] 07-04-2025 Telephone encounter Note Pt states Dr. Silveira ordered Lasix 20mg daily due to swelling in her lower extremities. She had the a-flutter ablation yesterday, and states the swelling is better. OK to take as needed? [facility] 07-04-2025 Miscellaneous Notes Pt states Dr. Silveira ordered Lasix 20mg daily due to swelling in her lower extremities. She had the a-flutter ablation yesterday, and states the swelling is better. OK to take as needed? documented in this encounter [facility] 07-03-2025 Note Formatting of this n ote is different from the original. Addendum created 07/03/25 1448 by Jair Barry MD Attestation recorded in Intraprocedure, Cosign clinical note, Intraprocedure Attestations filed [facility] 07-03-2025 Miscellaneous Notes Addendum created 07/03/25 1448 by Jair Barry MD Attestation recorded in Intraprocedure, Cosign clinical note, Intraprocedure Attestations filed documented in this encounter [facility] 07-03-2025 Procedure anesthe yaz Narrative Procedure Name Responsible Anesthesiologist Anesthesia Start Time Anesthesia Stop Time ECHOCARDIOGRAM TRANSESOPHAGEAL Jair Barry MD 07/03/25 1023 07/03/25 1048 Events Date Time Event Comment 07/03/2025 1023 AN Equip Check 1023 An Start 1023 Patient Verification 1023 An Start Data 1024 Anesthesia Ready 1034 1047 an stop data 1047 Handoff I completed my SBAR handoff to the receiving nurse in the PACU/unit. 1048 An Stop Meds Name Total propofol 130 mg sodium chloride 0.9% (NS) 200 mL * Agents No agents on file. * Blood No blood administrations on file. Lines, Drains, and Airways Type Details Placement Removal Wound 01/26/24; 0902; 1; N ; Surgical Wou; Knee; Anterior, Right; Sutures, Jackelyn, Surgical Adhesive; 10in aqucel, jaison wrap 01/26/24 0902 by Anay Blunt RN Peripheral IV Placement Date: 03/24; Placement Time: 0920; Orientation: Left; Location: Antecubital; Site Prep: Alcohol; Inserted by: AILYN; Patient Tolerance: Tolerated well; Removal Date: 07/03/25; Removal Time: 1410; Removal Reason: Per order 07/03/25 0920 by Ailyn Hill RN 07/03/25 1410 by Ailyn Hill RN documented in this encounter [id number] Anesthesiology Postoperative evaluation and management note * Anesthesia Postprocedure Evaluation - Terrie Katz CRNA - 07/03/2025 10:47 AM EDT Anesthesia Post Evaluation * * Refer to nursing documentation for PACU vitals * * Patient participation: patient participated Mental status: awake Pain management: adequate Anesthetic complications: no Nausea / vomiting: no Respiratory / airway status: airway patent, spontaneous ventilation and room air Postoperative hydration: acceptable Comment: Patient has satisfactorily recovered from her anesthetic. Cosigned by Jair Barry MD at 07/03/2025 2:47 PM EDT [facility] Work Phone: 1(571) 868-308508-04-2025 Surgical operation note* Anesthesia Postprocedure Evaluation - Terrie Katz CRNA - 07/03/2025 10:47 AM EDT Anesthesia Post Evaluation * * Refer to nursing documentation for PACU vitals * * Patient participation: patient participated Mental status: awake Pain management: adequate Anesthetic complications: no Nausea / vomiting: no Respiratory / airway status: airway patent, spontaneous ventilation and room air Postoperative hydration: acceptable Comment: Patient has satisfactorily recovered from her anesthetic. Cosigned by Jair Barry MD at 07/03/2025 2:47 PM EDT * Anesthesia Preprocedure Evaluation - Jair Barry MD - 07/03/2025 10:22 AM EDT ANESTHESIA PREPROCEDURE EVALUATION Anesthesia Plan ASA: 3 Type: MAC Airway: nasal cannula Induction: intravenous Anesthetic plan and risks as outlined in the consent discussed with: patient Use of blood products discussed with: patient Plan discussed with: COMMERCIAL INTERN Physical Exam Airway Mallampati: II TM Distance: <3 FB Neck ROM: full Mouth opening: >3 FB Cardiovascular Rhythm: regular Pulmonary Breath sounds are clear to auscultation Neurological Mental Status: alert Dental Dental exam is normal and age appropriate Review of Systems / Medical History - Reviewed: ECG, patient summary, anesthesia history, medical history, H&P and labs / results - No history of anesthetic complications Pulmonary Comment: Fibrosing mediastinitis Recent ct report shows encroachment on PA Positive: asthma, shortness of breath Neurological / Psychological Positive: neuromuscular disease Cardiovascular Positive: hypertension, valvular problems (s/p TAVR) , CAD hyperlipidemia, PVD Gastrointestinal / Hepatic / Renal Positive: and GERD documented in this [id number] Anesthesiology Preoperative evaluation and management note* Anesthesia Preprocedure Evaluation - Jair Barry MD - 07/03/2025 10:22 AM EDT ANESTHESIA PREPROCEDURE EVALUATION Anesthesia Plan ASA: 3 Type: MAC Airway: nasal cannula Induction: intravenous Anesthetic plan and risks as outlined in the consent discussed with: patient Use of blood products discussed with: patient Plan discussed with: COMMERCIAL INTERN Physical Exam Airway Mallampati: II TM Distance: <3 FB Neck ROM: full Mouth opening: >3 FB Cardiovascular Rhythm: regular Pulmonary Breath sounds are clear to auscultation Neurological Mental Status: alert Dental Dental exam is normal and age appropriate Review of Systems / Medical History - Reviewed: ECG, patient summary, anesthesia history, medical history, H&P and labs / results - No history of anesthetic complications Pulmonary Comment: Fibrosing mediastinitis Recent ct report shows encroachment on PA Positive: asthma, shortness of breath Neurological / Psychological Positive: neuromuscular disease Cardiovascular Positive: hypertension, valvular problems (s/p TAVR) , CAD hyperlipidemia, PVD Gastrointestinal / Hepatic / Renal Positive: and GERD [facility] Work Phone: 1(386) 729-598107-08-2025 NotePatient Name: Vickie Gonzalez MR #: [id number] General Cardiology Blaine Silveira MD, [facility] 06/06/25 Dear Nicol Ibanez MD, Vickie Gonzalez was seen in follow up for : Problem Atrial Flutter (Hcc) S/P Tavr (Transcatheter Aortic Valve Replacement) EVOLUT 34mm via R LEADITE WORKER. 01/21/222022 2 D cardiac echocardiogram looked good 04/2025-2 D cardiac echocardiogram looked good Hld (Hyperlipidemia) Fibrosing Mediastinitis Dx at time of cabg Coronary Artery Disease Involving [place] Coronary Artery of [place] Heart Without Angina Pectoris CABG 2000 Cath 2011 all grafts open 12/2021- Pat Dye/Missy Severe Aortic Insufficiency EVOLUT 34mm via R LEADITE WORKER. 01/21/222022 2 D cardiac echocardiogram looked good 04/2025-2 D cardiac echocardiogram looked good Medical Decision Making S/P TAVR (transcatheter aortic valve replacement) No issues HLD (hyperlipidemia) Continue pravastatin Fibrosing mediastinitis Recent ct report shows encroachment on PA , she does have JVD/HJR at 90 Not sure if from rhythm or early congestive heart failure/PHT Will start20 mg lasix daily for now and repeat BMP in 1 week Coronary artery disease involving igiugig coronary artery of igiugig heart without angina pectoris No angina, Doing well, Medications reviewed Followup 1 year Atrial flutter (HCC) New and persistent A flutter D/w pt possible RFA, continuing eliquis cardizem and metoprolol Thank you or allowing me to participate in the care of your patients. Orders Placed This Encounter Procedures Basic metabolic panel ECG 12 lead EKG EKG EXTERNAL LAB SCAN Return in about 1 year (around 06/06/2026). EKG:Atrial Flutter with controlled rate. Subjective: Vickie Gonzalez is a 69 y.o. y/o female : discussed her recent Palpitation/aflutter, I independently reviewed previous records from [facility] which I had not reviewed Denies chest discomfort, sob, palpitations, pnd, orthopnea,edema or syncope. Past History and Exam PMH: Past Medical History: Diagnosis Date Arthritis Asthma Chest pain Fibrosing mediastinitis GERD (gastroesophageal reflux disease) Heart valve disease Hiatal hernia History of cardiac cath 12/2021 HTN (hypertension) Leg weakness Numbness in both legs Periaortic mass benign Skin cancer SOB (shortness of breath) on exertion Physical exam: BP 137/79 Pulse (!) 57 Ht 5' 6 Wt 118.4 kg (261 lb) BMI 42.13 kg/m General: No acute distress, alert, and oriented x3. Cardiovascular: irregular rate and rhythm. 2/6 sys murmurs, .pos JVD/HJR at 90, No Carotid Bruits, no LE edema :Respiratory: Clear to auscultation bilaterally without wheezes, rhonchi, or rales Abdominal: soft, nontender, nondistended,no gross HSM or masses noted. Home Medications: Patient's Medications New Prescriptions FUROSEMIDE (LASIX) 20 MG TABLET Take 1 (one) tablet (20 mg total) by mouth daily . Previous Medications ASPIRIN 81 MG CHEWABLE TABLET B COMPLEX VITAMINS TABLET Take 1 (one) tablet by mouth daily . [id number] ORAL Take 1 tablet by mouth daily . CHOLECALCIFEROL, VITAMIN D3, 50 MCG (2,000 UNIT) CAP Take 1 (one) capsule by mouth daily . DILTIAZEM (CARDIZEM CD) 180 MG 24 HR CAPSULE Take 1 (one) capsule (180 mg total) by mouth 2 (two) times a day . ELIQUIS 5 MG TAB Take 1 (one) tablet (5 mg total) by mouth 2 (two) times a day . LACTOBACILLUS COMBO NO.11 (PROBIOTIC) 15 BILLION [...] (10 mg total) by mouth nightly . PRAVASTATIN (PRAVACHOL) 40 MG TABLET Take 1 (one) tablet (40 mg total) by mouth nightly . Modified Medications No medications on file Discontinued Medications ACETAMINOPHEN (TYLENOL) 500 MG TABLET Take 1 (one) tablet (500 mg total) by mouth 2 (two) times a day . DIPHENHYDRAMINE (BENADRYL) 50 MG TABLET Take 1 (one) tablet (50 mg total) by mouth nightly as needed for sleep . PANTOPRAZOLE (PROTONIX) 20 MG TABLET Take 1 (one) tablet (20 mg total) by mouth daily Start: 01/27/24. AUTHENTICATED BY BLAINE SILVEIRA, ON 06/06/2025 10:55:28[facility]07-08-2025 Evaluation + Plan note* Assessment & Plan Note - Blaine Silveira MD - 06/06/2025 10:51 AM EDTAssociated Problem(s): Atrial flutter (HCC) New and persistent A flutter D/w pt possible RFA, continuing eliquis cardizem and metoprolol [id number] History of Present illness Narrative* Blaine Silveira MD - 06/06/2025 10:51 AM EDT Patient Name: Vickie Gonzalez MR #: [id number] General Cardiology Blaine Silveira MD, [facility] 06/06/25 Dear Nicol Ibanez MD, Vickie Gonzalez was seen in follow up for : Problem Atrial Flutter (Hcc) S/P Tavr (Transcatheter Aortic Valve Replacement) EVOLUT 34mm via R LEADITE WORKER. 01/21/222022 2 D cardiac echocardiogram looked good 04/2025-2 D cardiac echocardiogram looked good Hld (Hyperlipidemia) Fibrosing Mediastinitis Dx at time of cabg Coronary Artery Disease Involving [place] Coronary Artery of [place] Heart Without Angina Pectoris CABG 2000 Cath 2010 all grafts open 12/2021- Pat Dye/Missy Severe Aortic Insufficiency EVOLUT 34mm via R LEADITE WORKER. 01/21/222022 2 D cardiac echocardiogram looked good 04/2025-2 D cardiac echocardiogram looked good Medical Decision Making S/P TAVR (transcatheter aortic valve replacement) No issues HLD (hyperlipidemia) Continue pravastatin Fibrosing mediastinitis Recent ct report shows encroachment on PA , she does have JVD/HJR at 90 Not sure if from rhythm or early congestive heart failure/PHT Will start20 mg lasix daily for now and repeat BMP in 1 week Coronary artery disease involving ig[place]ug[place] coronary artery of [place] heart without angina pectoris No angina, Doing well, Medications reviewed Followup 1 year Atrial flutter (HCC) New and persistent A flutter D/w pt possible RFA, continuing eliquis cardizem and metoprolol Thank you or allowing me to participate in the care of your patients. Orders Placed This Encounter Procedures Basic metabolic panel ECG 12 lead EKG EKG EXTERNAL LAB SCAN Return in about 1 year (around 06/06/2026). EKG:Atrial Flutter with controlled rate. Subjective: Vickie Gonzalez is a 69 y.o. y/o female : discussed her recent Palpitation/aflutter, I independently reviewed previous records from [facility] which I had not reviewed Denies chest discomfort, sob, palpitations, pnd, orthopnea,edema or syncope. Past History and Exam PMH: Past Medical History: Diagnosis Date Arthritis Asthma Chest pain Fibrosing mediastinitis GERD (gastroesophageal reflux disease) Heart valve disease Hiatal hernia History of cardiac cath 12/2021 HTN (hypertension) Leg weakness Numbness in both legs Periaortic mass benign Skin cancer SOB (shortness of breath) on exertion Physical exam: BP 137/79 Pulse (!) 57 Ht 5' 6 Wt 118.4 kg (261 lb) BMI 42.13 kg/m General: No acute distress, alert, and oriented x3. Cardiovascular: irregular rate and rhythm. 2/6 sys murmurs, .pos JVD/HJR at 90, No Carotid Bruits, no LE edema :Respiratory: Clear to auscultation bilaterally without wheezes, rhonchi, or rales Abdominal: soft, nontender, nondistended,no gross HSM or masses noted. Home Medications: Patient's Medications New Prescriptions FUROSEMIDE (LASIX) 20 MG TABLET Take 1 (one) tablet (20 mg total) by mouth daily . Previous Medications ASPIRIN 81 MG CHEWABLE TABLET B COMPLEX VITAMINS TABLET Take 1 (one) tablet by mouth daily . [id number] ORAL Take 1 tablet by mouth daily . CHOLECALCIFEROL, VITAMIN D3, 50 MCG (2,000 UNIT) CAP Take 1 (one) capsule by mouth daily . DILTIAZEM (CARDIZEM CD) 180 MG 24 HR CAPSULE Take 1 (one) capsule (180 mg total) by mouth 2 (two) times a day . ELIQUIS 5 MG TAB Take 1 (one) tablet (5 mg total) by mouth 2 (two) times a day . LACTOBACILLUS COMBO NO.11 (PROBIOTIC) 15 BILLION [...] (10 mg total) by mouth nightly . PRAVASTATIN (PRAVACHOL) 40 MG TABLET Take 1 (one) tablet (40 mg total) by mouth nightly . Modified Medications No medications on file Discontinued Medications ACETAMINOPHEN (TYLENOL) 500 MG TABLET Take 1 (one) tablet (500 mg total) by mouth 2 (two) times a day . DIPHENHYDRAMINE (BENADRYL) 50 MG TABLET Take 1 (one) tablet (50 mg total) by mouth nightly as needed for sleep . PANTOPRAZOLE (PROTONIX) 20 MG TABLET Take 1 (one) tablet (20 mg total) by mouth daily Start: 01/27/24. documented in this [id number] Miscellaneous Notes* Assessment & Plan Note - Blaine Silveira MD - 06/06/2025 10:51 AM EDTAssociated Problem(s): Atrial flutter (HCC) New and persistent A flutter D/w pt possible RFA, continuing eliquis cardizem and metoprolol * Assessment & Plan Note - Blaine Silveira MD - 06/06/2025 10:50 AM EDT Associated Problem(s): Coronary artery disease involving ig[place]ug[place] coronary artery of [place] heart without angina pectoris No angina, Doing well, Medications reviewed Followup 1 year * Assessment & Plan Note - Blaine Silveira MD - 06/06/2025 10:49 AM EDT Associated Problem(s): Fibrosing mediastinitis Recent ct report shows encroachment on PA , she does have JVD/HJR at 90 Not sure if from rhythm or early congestive heart failure/PHT Will start20 mg lasix daily for now and repeat BMP in 1 week * Assessment & Plan Note - Blaine Silveira MD - 06/06/2025 10:48 AM EDT Associated Problem(s): HLD (hyperlipidemia) Continue pravastatin * Assessment & Plan Note - Blaine Silveira MD - 06/06/2025 10:48 AM EDT Associated Problem(s): S/P TAVR (transcatheter aortic valve replacement) No issues documented in this [id number] Evaluation + Plan note* Assessment & Plan Note - Blaine Silveira MD - 06/06/2025 10:50 AM EDT Associated Problem(s): Coronary artery disease involving igiugig coronary artery of ig[place]ugig heart without angina pectoris No angina, Doing well, Medications reviewed Followup 1 year [id number] Evaluation + Plan note* Assessment & Plan Note - Blaine Silveira MD - 06/06/2025 10:49 AM EDTAssociated Problem(s): Fibrosing mediastinitis Recent ct report shows encroachment on PA , she does have JVD/HJR at 90 Not sure if from rhythm or early congestive heart failure/PHT Will start20 mg lasix daily for now and repeat BMP in 1 week [id number] Evaluation + Plan note* Assessment & Plan Note - Blaine Silveira MD - 06/06/2025 10:48 AM EDTAssociated Problem(s): HLD (hyperlipidemia) Continue pravastatin [id number] Evaluation + Plan note* Assessment & Plan Note - Blaine Silveira MD - 06/06/2025 10:48 AM EDTAssociated Problem(s): S/P TAVR (transcatheter aortic valve replacement) No issues T [id number] Discharge summary [facility] Medical Records Department [address] [place] [id number] Discharge Summary 05/31/25 1536 MR#: [id number] Acct: [id number] Name: VICKIE GONZALEZ Rep #:[id number] : 1955 69 From: Shagufta Garcia DO PCP: Dr. Kirill Newell MD Status:ADM IN Location: [place] [id number] Providers Date of Admission: 05/30/25 Primary Care Physician: Dr. Kirill Newell MD Consultations 05/30/25 03:07 Consult: Cardiology Routine Consulting Provider: [facility] Reason for Consult: New-onset Atrial Flutter; with RVR. EMERGENT Consult: No MD Notified: Yes Date Notified: 05/30/25 Time Notified: 06:00 Method of Notification: Text Method of Consult:: In-Person Reason For Visit: NEW ONSET ATRIAL FLUTTER WITH RVR Diagnosis Discharge Diagnosis (1) Fibrosing mediastinitis: Status: Chronic Code(s): J98.51 - Mediastinitis (2) Status post double vessel coronary artery bypass: Status: Resolved Code(s): Z95.1 - Presence of aortocoronary bypass graft (3) Atrial flutter with rapid ventricular response: Status: Acute Code(s): I48.92 - Unspecified atrial flutter (4) Aortic valve insufficiency: Status: Chronic Code(s): I35.1 - Nonrheumatic aortic (valve) insufficiency Qualifiers: Cardiac valve disease etiology: etiology unspecified Qualified Code(s):I35.1 - Nonrheumatic aortic (valve) insufficiency Medications at Discharge Home Medications aspirin 81 mg tablet,delayed release (Adult Aspirin Regimen) 81 mg PO QDAY 12/22/17 cholecalciferol (vitamin D3) 125 mcg (5,000 unit) capsule 5,000 unit PO QDAY 12/22/17 pravastatin 40 mg tablet 40 mg PO QHS 12/22/17 diphenhydramine HCl 25 mg capsule (Benadryl) 25 mg PO QHS PRN sleep 09/02/18 spacer #1 ea 03/06/20 Lactobacillus acidophilus (Acidophilus capsule) 100 mg PO DAILY 05/29/25 ipratropium bromide 21 mcg (0.03 %) nasal spray intranasal 05/29/25 levocetirizine 5 mg tablet (24HR Allergy Relief) 5 mg PO DAILY 05/29/25 losartan 100 mg tablet 100 mg PO DAILY 05/29/25 magnesium 250 mg tablet 250 mg PO DAILY 05/29/25 montelukast 10 mg tablet 10 mg PO DAILY 05/29/25 vitamin B complex (Vitamins B Complex capsule) 1 cap PO DAILY 05/29/25 apixaban 5 mg tablet (Eliquis) 5 mg PO BID #60 tabs 05/31/25 diltiazem HCl 180 mg capsule,extended release 24 hr 180 mg PO Q12 #60 caps 05/31/25 metoprolol succinate 50 mg tablet,extended release 24 hr 100 mg (2 x 50 mg) PO DAILY #120 tabs 05/31/25 Hospital Course Operations None Procedures 2-D Echocardiogram and - (CTA chest) Summary of Care Provided Minutes Spent on Discharge: 38 Hospital Course: Mrs. Gonzalez is a 69-year-old female who presented to the emergency department at [facility] on 05/30/2025 early in the morning with heart racingand palpitations. She was found to be in new onset atrial flutter. She has a history of CABG x 2 in 2000 along with a TAVR and history of fibrosing mediastinitis. She had pretty consistent workup up until 2019 and then seems like she may have been lost to follow-up with COVID. Her symptoms began about aday prior to presentation and they were abrupt in onset. She was sustaining tachycardia with heart rates in the 120 range. She was evaluated by her primarycare physician and EKG revealed sinus tachycardia. She was instructed to take anextra dose of her metoprolol but this did not help so she was instructed to come to the emergency department. She had admitted to being extremely tired andbreathless for about 6 weeks. She has no history of sleep apnea which she is aware of. She has had no fever or chills and denies any chest pain,nausea or vomiting. EKG in the emergency department was consistent with atrial flutter with RVR having rate about 120. She was started on diltiazem drip and admitted to the PCU. Echocardiogram was obtained and she was found to have a normal functioning bioprosthetic valve with a mildly enlarged left atrium, markedly large right atrium, mild MR no pericardial effusion, and mild to moderate TR TSHwas within normal limits at 3.02. Her labs were overtly unremarkable. Vital signs were stable other than elevated blood pressure and tachycardia on presentation. Given her new onset atrial fibrillation, a CTA of her chest was performed to rule out PE. She was not found to have PE however she was found tohave mediastinal fibrosis surrounding the proximal right pulmonary artery with moderate the severe narrowing and poststenotic dilation of the right pulmonary artery. She was maintained on a home beta-shivam initially at 50 mg while she was placed on the Cardizem drip and this did control her heart rate. I was ableto transition her off the Cardizem drip to oral Cardizem and ultimately she ended up on extended release Cardizem 180 mg p.o. twice daily at the time of discharge. Her heart rates were still a little bit higher than I would like to see them so we did increase her beta-shivam from 50 to 100 mg daily at which time we achieved heart rate control and stable blood pressure. She is now on Cardizem 180 p.o. twice daily and metoprolol 100 mg daily. I do wonder if her mediastinal fibrosis has worsened some causing her atrial flutter. She does have dilated atria bilaterally with theright being greater than the left. We avoided amiodarone due to her fibrosis and younger age. She has follow-up with Dr. Lindsey Finley on 06/09/2025. She was started on Eliquis. We did discuss the risk and benefits of being anticoagulated in the setting of atrial flutter and atrial fibrillation with regards to stroke prevention. Patient voiced understanding. Prescriptions for metoprolol, Eliquis,and Cardizem were sent toher local pharmacy prior to discharge. No other medication changes were made and she was able to be discharged home in stable condition on 05/31/2025. As noted she has follow-up with cardiology and will also follow-up with pulmonary medicine to see if we need to pursue her mediastinal fibrosis any further as well as her primary care physician as needed. Of note we do suspect she may have a component of MADDY and recommends outpatient polysomnography. This was discussed withthe patient and she said she would pursue this. I discussed withher she could either follow-up withher primary care physician or pulmonary medicine patient follows up there. 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 Suspected MADDY CAD status post CABG Aortic valve insufficiency status post TAVR Essential hypertension Hyperlipidemia History of asthma Allergic rhinitis History of basal cell carcinoma left lower extremity status post Mohs procedure Osteoarthritis status post total knee arthroplasty Morbid obesity Physical Exam Const alert, oriented x3, no apparent distress, no limitations and well nourished; Negative for average body habitus Constitutional Narrative: Morbidly obese, white female, older, sitting up in bed, appears comfortable, nontoxic, appears younger than stated age General Appearance: cooperative, comfortable, well kempt and well developed Exam Limitations: no limitations Nutritional Appearance: morbidly obese HEENT normocephalic, head/scalp atraumatic, hearing grossly normal bilaterally and moist oral mucous membranes HEENT Narrative: Mallampati 3, no thrush Eyes conjunctivae normal Eyes Narrative: No scleral icterus Neck supple Neck Narrative: Neck is short thick, trachea midline Resp normal respiratory effort, no retractions, no use of accessory muscles and clearto auscultation bilaterally Auscultation: Negative for rales, rhonchi or wheezes Cardio regular rate, S1 normal heart sound, S2 normal heart sound, no murmurs, no rub, no gallops and no clicks Cardio Narrative: Irregular irregular rhythm-now rate controlled GI normal to inspection, nondistended, normoactive bowel sounds, soft to palpation and non-tender Extremity no clubbing, cyanosis or edema Extremity Narrative: 2+ pedal and radial pulses Skin no wounds, skin turgor normal and no jaundice Neuro oriented x3, moves all extremities and no focal motor deficits Speech: speech normal Psych affect normal Psych Narrative: Extremely pleasant, interacts appropriately Weight / BMI Weight Weight: 123.9 kg Body Mass Index (BMI) 43.4 ABG / Lab / Microbiology Data 05/31/25 06:05 05/31/25 06:05 Laboratory: Laboratory Results - last 24 hr 05/31/25 06:05: WBC 7.7, RBC 4.21, Hgb 12.1, Hct 37.5, MCV 89.1, MCH 28.7, MCHC 32.3, RDW Std Deviation 49.7 H, RDW Coeff of Mark 15.3 H, Plt Count 228, MPV 11.4, Immature Gran % (Auto) 0.500, Neut % (Auto) 60.4, Lymph % (Auto) 28.5, [place] % (Auto) 6.8, Eos % (Auto) 3.3, Baso % (Auto) 0.5, Absolute Neuts (auto) 4.7, Absolute Lymphs (auto) 2.19, Nucleated RBC % 0, Sodium 139, Potassium 4.0, [id number], Carbon Dioxide 22.2, Anion Gap 12, BUN 17, Creatinine 0.83, Estim Creat Clear Calc 84.77, Est GFR (MDRD) Non-Af 76, BUN/Creatinine Ratio 20.2 H, Glucose 106 H, Calcium 9.0, Phosphorus 3.7, Magnesium 2.1, Total Bilirubin 0.77, AST 31, ALT 23, Alkaline Phosphatase 118 H, Total Protein 7.3, Albumin 3.6, Globulin 3.7, Albumin/Globulin Ratio 1.0 Radiography Diagnostic Testing: Radiology Impression Echocardiogram 05/30/25 02:36 Interpretation Summary Normal function of aortic valve bioprosthesis/TAVR Normal aortic valve bioprosthesis function Mildly enlarged left atrium Moderately enlarged right atrium Mild MR No pericardial effusion Mild to moderate TR Contrast echo used Definity. LV inflow/mitral inflow showed only E wave with loss of the atrial contractilitypatient is in atrial fibrillation No previous echo to compare Ordering Physician: Nicol Silva Performed By: Martin Lin RCS D/C Instructions Discharge Diet: Low fat / Low cholesterol Discharge Activity: Return to Normal Activity Return to work on: 06/01/25 DC O2, CPAP, BIPAP Needs Home O2 Discharge instructions: No DC home with Oxygen: No Meaningful Use Info Meaningful Use Meaningful Use Diagnoses (Choose all that apply): None applicable Ischemic Stroke Statin Dosing Therapy Reference: STATIN DOSE THERAPY REFERENCE: * Patients > 75 years receive moderate or high dose statin therapy. * Patients 75 years or YOUNGER should receive HIGH intensity statin dose unless contraindicated. You will be required to document reason for non-treatment if statin daily dose does not meet guidelines. HIGH DOSE STATIN THERAPY DAILY Atorvastatin > than or = to 40 mg Rosuvastatin > than or = to 20 mg Amlodipine + Atorvastatin > than or = to 2.5/40 mg Ezetimibe + Simvastatin 10/80 mg Simvastatin 80mg Discharge Plan Admission Admit Date/Time: 05/30/25 02:29 Primary Reason for Your Visit: Palpitations Attending Provider: Shagufta Garcia Primary Care Provider: Kirill Newell Consulting Providers: Nicol Silva; Addy Valencia; Marcin Cason; Arun Vogel; Francesco Partida; Jesus Tam; Francisco Cox; Dianne Perez; Lindsey Finley; Gen Ruiz; Maverick Velasquez; Aníbal Witt; Irena Finch DIRECTOR BUSINESS DEVELOPMENT; Alena Silver PA; David Brooks Instructions Additional Instructions / Restrictions: 1. Please discussed obtaining a polysomnography or a sleep study with your primary care physician or Dr. Danielle as we suspect he may have a component of sleep apnea and this could contribute to your atrial flutter. I do not think this is the only reason you have a flutter but it could contribute. Discharge Orders/Prescriptions Prescriptions: New Eliquis 5 mg Tablet 5 mg PO BID Qty: 60 1RF diltiazem HCl 180 mg Capsule,Extended Release 24hr 180 mg PO Q12 Qty: 60 1RF metoprolol succinate 50 mg Tablet Extended Release 24 Hr 100 mg PO DAILY Qty: 120 1RF Continued pravastatin 40 mg tablet 40 mg PO QHS aspirin [Adult Aspirin Regimen] 81 mg tablet,delayed release (DR/EC) 81 mg PO QDAY cholecalciferol (vitamin D3) 5,000 unit capsule 5,000 unit PO QDAY diphenhydramine HCl [Benadryl] 25 mg capsule 25 mg PO QHS PRN (Reason: sleep) montelukast 10 mg tablet 10 mg PO DAILY losartan 100 mg tablet 100 mg PO DAILY ipratropium bromide 21 mcg (0.03 %) spray,non-aerosol INTRANASAL Patient Comments: 1-2 [place] each nostril before bedtime nightly and every 6 hours as needed inday due to cough vitamin B complex [Vitamins B Complex] Capsule 1 cap PO DAILY Acidophilus Capsule 100 mg PO DAILY levocetirizine [24HR Allergy Relief] 5 mg tablet 5 mg PO DAILY magnesium 250 mg tablet 250 mg PO DAILY (DME) spacer See Rx Instructions .ROUTE .MEDSUPPLY Qty: 1 0RF Rx Instructions: As directed Discontinued metoprolol succinate 50 mg tablet extended release 24 hr 50 mg PO DAILY Referrals / Follow Up: Jeff Danielle DO [Med Staff - Active Staff] - 06/28/25 9:45 am Kirill Newell MD [Primary Care Provider] - See Referral Note (As needed) Lindsey Finley MD [Med Staff - Active Staff] - 06/09/25 9:30 am (appointment with Alena Silver N.P.) Disposition Disposition (needs filled in before D/C Order can be placed): Home, Self Care Charges/Coding Visit Charges Inpatient E&M: 34757 Disch Hosp >30min 05/31/25 1552 Cosigner Signature (if applicable): CC: Dr. Jeff Danielle DO; Dr. Kirill Newell MD; Dr. Shagufta Garcia DO; Dr. Lindsey Finley MD~ Signed [facility]07-02-2025 [facility] Medical Records Department [address] [place] [address] Discharge Summary 05/31/25 1536 MR#: [id number] Acct: [id number] Name: VICKIE GONZALEZ Rep #: [id number] : 1955 69 From: Shagufta Garcia DO PCP: Dr. Kirill Newell MD Status:ADM IN Location: [place] [id number] Providers Date of Admission: 05/30/25 Primary Care Physician: Dr. Kirill Newell MD Consultations 05/30/25 03:07 Consult: Cardiology Routine Consulting Provider: [facility] Reason for Consult: New-onset Atrial Flutter; with RVR. EMERGENT Consult: No MD Notified: Yes Date Notified: 05/30/25 Time Notified: 06:00 Method of Notification: Text Method of Consult:: In-Person Reason For Visit: NEW ONSET ATRIAL FLUTTER WITH RVR Diagnosis Discharge Diagnosis (1) Fibrosing mediastinitis: Status: Chronic Code(s): J98.51 - Mediastinitis (2) Status post double vessel coronary artery bypass: Status: Resolved Code(s): Z95.1 - Presence of aortocoronary bypass graft (3) Atrial flutter with rapid ventricular response: Status: Acute Code(s): I48.92 - Unspecified atrial flutter (4) Aortic valve insufficiency: Status: Chronic Code(s): I35.1 - Nonrheumatic aortic (valve) insufficiency Qualifiers: Cardiac valve disease etiology: etiology unspecified Qualified Code(s): I35.1 - Nonrheumatic aortic (valve) insufficiency Medications at Discharge Home Medications aspirin 81 mg tablet,delayed release (Adult Aspirin Regimen) 81 mg PO QDAY 12/22/17 cholecalciferol (vitamin D3) 125 mcg (5,000 unit) capsule 5,000 unit PO QDAY 12/22/17 pravastatin 40 mg tablet 40 mg PO QHS 12/22/17 diphenhydramine HCl 25 mg capsule (Benadryl) 25 mg PO QHS PRN sleep 09/02/18 spacer #1 ea 03/06/20 Lactobacillus acidophilus (Acidophilus capsule) 100 mg PO DAILY 05/29/25 ipratropium bromide 21 mcg (0.03 %) nasal spray intranasal 05/29/25 levocetirizine 5 mg tablet (24HR Allergy Relief) 5 mg PO DAILY 05/29/25 losartan 100 mg tablet 100 mg PO DAILY 05/29/25 magnesium 250 mg tablet 250 mg PO DAILY 05/29/25 montelukast 10 mg tablet 10 mg PO DAILY 05/29/25 vitamin B complex (Vitamins B Complex capsule) 1 cap PO DAILY 05/29/25 apixaban 5 mg tablet (Eliquis) 5 mg PO BID #60 tabs 05/31/25 diltiazem HCl 180 mg capsule,extended release 24 hr 180 mg PO Q12 #60 caps 05/31/25 metoprolol succinate 50 mg tablet,extended release 24 hr 100 mg (2 x 50 mg) PO DAILY #120 tabs 05/31/25 Hospital Course Operations None Procedures 2-D Echocardiogram and - (CTA chest) Summary of Care Provided Minutes Spent on Discharge: 38 Hospital Course: Mrs. Gonzalez is a 69-year-old female who presented to the emergency department at [facility] on 05/30/2025 early in the morning with heart racing and palpitations. She was found to be in new onset atrial flutter. She has a history of CABG x 2 in 2000 along with a TAVR and history of fibrosing mediastinitis. She had pretty consistent workup up until 2019 and then seems like she may have been lost to follow-up with [facility]. Her symptoms began about a day prior to presentation and they were abrupt in onset. She was sustaining tachycardia with heart rates in the 120 range. She was evaluated by her primary care physician and EKG revealed sinus tachycardia. She was instructed to take an extra dose of her metoprolol but this did not help so she was instructed to come to the emergency department. She had admitted to being extremely tired and breathless for about 6 weeks. She has no history of sleep apnea which she is aware of. She has had no fever or chills and denies any chest pain, nausea or vomiting. EKG in the emergency department was consistent with atrial flutter with RVR having rate about 120. She was started on diltiazem drip and admitted to the PCU. Echocardiogram was obtained and she was found to have a normal functioning bioprosthetic valve with a mildly enlarged left atrium, markedly large right atrium, mild MR no pericardial effusion, and mild to moderate TR TSH was within normal limits at 3.02. Her labs were overtly unremarkable. Vital signs were stable other than elevated blood pressure and tachycardia on presentation. Given her new onset atrial fibrillation, a CTA of her chest was performed to rule out PE. 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 She was maintained on a home beta-shivam initially at 50 mg while she was placed on the Cardizem drip and this did control her heart rate. I was able to transition her off the Cardizem drip to oral Cardizem and ultimately she ended up on extended release Cardizem 180 mg p.o. twice daily at the time of discharge. Her heart rates were still a little bit higher than I would lik (more content not included)...[facility] 05-30-2025 Consult note Author Dianne Perez [facility] Note Date/Time May 30, 2025 5:43p m [facility] Medical Records Department [address] [place] [address] Consultation - Cardiology 05/30/25 1733 MR#: [id number] Acct: [id number] Name: VICKIE GONZALEZ Rep #:[id number] : 1955 69 From: Dianne Perez MD PCP: Dr. Kirill Newell MD Status:ADM IN Location: [facility] Assessment & Plan Assessment/Plan (1) Fibrosing mediastinitis: (2) Status post double vessel coronary artery bypass: (3) Atrial flutter with rapid ventricular response: (4) Aortic valve insufficiency: QUALIFIERS: Cardiac valve disease etiology: etiology unspecified Qualified Code(s): I35.1 - Nonrheumatic aortic (valve) insufficiency PLAN: Plan Cardiac care plan recommendation 69-year-old patient with fibrosing mediastinitis Has CAD with two-vessel bypass, done in [facility] in [place] 2000. History of aortic valve bioprosthesis/TAVR This presentation she presented with palpitation And an review of the evaluation by EKG showed evidence of atrial flutter with 1- 2 AV block initially started on treatment with calcium channel shivam control the rate Serial cardiac markers negative does not have any symptoms of chest pain. Echocardiographic evaluation showed LV function preserved with normal functioning aortic valve bioprosthesis Moderate tricuspid regurgitation and mild mitral regurgitation and no pericardial effusion. Other medical problems with history of MADDY, and to be scheduled for sleep study. I discussed cardiac care plan which she will include long acting OAC/Eliquis 5 mg twice daily In addition to rate control using calcium channel shivam if needed can add low- dose beta-shivam for better control of ventricular rate I did mention to the patient that she would require synchronized cardioversion if she continues to have atrial flutter. This can be set up as an elective outpatient in 6 to 8 weeks. Meantime also to follow-up with her primary milk wagon driver in [place] in regard to possible future atrial flutter ablation. And to continue on her current treatment. 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 Will continue to monitor and follow-up clinically I also advised to establish with a local milk wagon driver for continuation of cardiac care. Dianne Perez MD,[facility],PSYCHIATRIC HPI Consult Data Date of Consult: 05/30/25 HPI Narrative Reason for Consultation: CAD s/p CABG/TAVR atrial flutter/fibrosing mediastinitis HPI Narrative: VICKIE GONZAELZ, is a 69 F who presents [facility] Medical History (Updated 05/30/25 @ 04:[address] Remy Rai, DO) Hernia Chronic cough Allergic rhinitis Asthma Heart murmur Aortic valve insufficiency HTN (hypertension) Home Medications ?Medication ?Instructions ?Recorded ?Last Taken ?Type aspirin 81 mg tablet,delayed 81 mg PO QDAY 12/22/17 Un known History release (Adult Aspirin Regimen) cholecalciferol (vitamin D3) 125 5,000 unit PO QDAY Unknown History mcg (5,000 unit) capsule pravastatin 40 mg tablet 40 mg PO QHS 12/22/17 Unknow n History diphenhydramine HCl 25 mg capsule 25 mg PO QHS PRN sle ep 09/02/18 05/28/25 History (Benadryl) spacer #1 ea 03/06/20 Unknown Rx Lactobacillus acidophilus 100 mg PO DAILY 05/29/25 Unk nown History (Acidophilus capsule) ipratropium bromide 21 mcg (0.03 intranasal 05/29/25 0 05/28/25 History %) nasal spray levocetirizine 5 mg tablet (24HR 5 mg PO DAILY 5 Unknown History Allergy Relief) losartan 100 mg tablet 100 mg PO DAILY 05/29/25 Unk nown History magnesium 250 mg tablet 250 mg PO DAILY 05/29/25 Unk nown History metoprolol succinate 50 mg 50 mg PO DAILY 05/29/25 Unk nown History tablet,extended release 24 hr montelukast 10 mg tablet 10 mg PO DAILY 05/29/25 Unkn own History vitamin B complex (Vitamins B 1 cap PO DAILY 05/29/25 Unknown History Complex capsule) Allergy/AdvReac Type Severity Reaction Status Date / Time naproxen (From Naprosyn) Allergy Severe Hives Verified 05/29/25 23:10 Family History Mother Diabetes Father MADDY (obstructive sleep apnea) Surgical History S/P TAVR (transcatheter aortic valve replacement) Total knee replacement status Status post double vessel coronary artery bypass Social History Smoking Status: Never smoker second hand exposure: No alcohol intake: current alcohol intake frequency: a few times a month substance use type: former substance user Date of last use: marijuana in [employer] Physical Exam Cardio Cardio Narrative: Patient seen and examined at bedside Comfortable does not have any symptoms her palpitation improving Review of range mounter she had atrial flutter with controlled ventricular rate Cardiac exam normal bioprosthetic aortic valve sounds Risk Stratification Risk Stratification Applicable: No Objective Data Vital Signs: Vital Signs Temp Pulse Resp BP Pulse Ox O2 Del Method 98.3 F 99 16 134/70 H 95 Room Air 05/30/25 16:00 05/30/25 17:00 05/30/25 17:00 05/30/25 17:00 05/30/25 17:00 05/30/25 17:00 Oxygen Delivery Method Room Air Weight: 268 lb 11.896 oz Body Mass Index (BMI) 42.7 Intake & Output: Intake and Output for Last 24 Hours 05/28/25 05/29/25 05/30/25 23:59 23:59 23:59 Intake Total Balance Lab / Micro Data 05/30/25 04:35 05/30/25 04:35 Labs: Laboratory Results - last 24 hr 05/30/25 00:20: WBC 9.1, RBC 4.25, Hgb 12.4, Hct 37.5, MCV 88.2, MCH 29.2, MCHC 33.1, RDW Std Deviation 47.8 H, RDW Coeff of Mark 14.8 H, Plt Count 223, MPV 11.4, Immature Gran % (Auto) 0.300, Neut % (Auto) 63.2, Lymph % (Auto) 24.9, [place] % (Auto) 8.3, Eos % (Auto) 2.9, Baso % (Auto) 0.4, Absolute Neuts (auto) 5.7, Absolute Lymphs (auto) 2.26, Nucleated RBC % 0, Sodium 138, Potassium 3.9, Chloride 103, Carbon Dioxide 23.9, Anion Gap 12, BUN 16, Creatinine 0.86, Estim Creat Clear Calc 81.19, Est GFR (MDRD) Non-Af 72, BUN/Creatinine Ratio 19.0, Glucose 105 H, Hemoglobin A1c 6.3 H, Calcium 9.4, Magnesium 2.0, TSH 3.020 05/30/25 04:35: WBC 8.4, RBC 4.13 L, Hgb 11.9 L, Hct 36.5 L, MCV 88.4, MCH 28.8,MCHC 32.6, RDW Std Deviation 47.9 H, RDW Coeff of Mark 14.8 H, Plt Count 213, MPV11.2, Immature Gran % (Auto) 0.400, Neut % (Auto) 61.8, Lymph % (Auto) 28.6, [place] % (Auto) 6.7, Eos % (Auto) 2.0, Baso % (Auto) 0.5, Absolute Neuts (auto) 5.2, Absolute Lymphs (auto) 2.41, Nucleated RBC % 0, Sodium 140, Potassium 4.1, Chloride 105, Carbon Dioxide 22.9, Anion Gap 12, BUN 14, Creatinine 0.78, Estim Creat Clear Calc 87.12, Est GFR (MDRD) Non-Af 82, BUN/Creatinine Ratio 17.9, Glucose 105 H, Calcium 9.1, Phosphorus 3.7, Total Bilirubin 0.74, AST 33 H, ALT 21, Alkaline Phosphatase 118 H, Troponin T High Sens 21 H, Total Protein 7.1, Albumin 3.6, Globulin 3.5, Albumin/Globulin Ratio 1.0, Triglycerides 72, Cholesterol 140, LDL Cholesterol, Calc 67, VLDL Cholesterol 14, HDL Cholesterol 58, Cholesterol/HDL Ratio 2.41 05/30/25 05:54: Troponin T Hi Sens 2 Hr 20 H 05/30/25 08:05: Troponin T Hi Sens 4Hr 20 H Cardiology Labs/Tests 05/30/25 00:20: WBC 9.1, RBC 4.25, Hgb 12.4, Hct 37.5, MCV 88.2, MCH 29.2, MCHC 33.1, Plt Count 223, MPV 11.4, Immature Gran % (Auto) 0.300, Neut % (Auto) 63.2,Lymph % (Auto) 24.9, [place] % (Auto) 8.3, Eos % (Auto) 2.9, Baso % (Auto) 0.4, Absolute Neuts (auto) 5.7, Nucleated RBC % 0, Sodium 138, Potassium 3.9, Chloride 103, Carbon Dioxide 23.9, Anion Gap 12, BUN 16, Creatinine 0.86, Est GFR (MDRD) Non-Af 72, BUN/Creatinine Ratio 19.0, Glucose 105 H, Hemoglobin A1c 6.3 H, Calcium 9.4, Magnesium 2.0 05/30/25 04:35: WBC 8.4, RBC 4.13 L, Hgb 11.9 L, Hct 36.5 L, MCV 88.4, MCH 28.8,MCHC 32.6, Plt Count 213, MPV 11.2, Immature Gran % (Auto) 0.400, Neut % (Auto) 61.8, Lymph % (Auto) 28.6, [place] % (Auto) 6.7, Eos % (Auto) 2.0, Baso % (Auto) 0.5, Absolute Neuts (auto) 5.2, Nucleated RBC % 0, Sodium 140, Potassium 4.1, Chloride 105, Carbon Dioxide 22.9, Anion Gap 12, BUN 14, Creatinine 0.78, Est GFR (MDRD) Non-Af 82, BUN/Creatinine Ratio 17.9, Glucose 105 H, Calcium 9.1, Phosphorus 3.7, Total Bilirubin 0.74, Triglycerides 72, Cholesterol 140, VLDL Cholesterol 14, HDL Cholesterol 58, Cholesterol/HDL Ratio 2.41 Rhythm: EKG: ECHO: Stress Test: Cardiac Cath: PCI: CT Surgery: Holter monitor: EPS: PPM: CXR: Chest CT Scan: Radiography Diagnostic Testing: Radiology Impression Echocardiogram 05/30/25 02:36 Interpretation Summary Normal function of aortic valve bioprosthesis/TAVR Normal aortic valve bioprosthesis function Mildly enlarged left atrium Moderately enlarged right atrium Mild MR No pericardial effusion Mild to moderate TR Contrast echo used Definity. 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 Progress imaging as clinically determined. Reading Location: [place] [address] 05/30/25 [id number] <Electronically signed by Dianne Perez MD> Cosigner Signature (if applicable): CC: Dr. Kirill Newell MD~ Signed [facility] Work Phone: 1(702) 463-592207-01-2025 Progress note Author Shagufta Garcia [facility] Note Date/Time May 30, 2025 3:55p m [facility] Medical Records Department [address] [place] [address] Progress Note - Hospitalist 05/30/25 1532 MR#: [id number] Acct: [id number] Name: VICKIE GONZALEZ Rep #:[id number] : 1955 69 From: Shagufta Garcia DO PCP: Dr. Kirill Newell MD Status:ADM IN Location: [place] [address] Hospitalist Note Patient is a 69-year-old female who has a history of TAVR and CAD with CABG x 2 in 2000. 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 She presented to the emergency department with a racing heart and palpitations and EKG showed new onset atrial flutter. It sounds like she may have had a flutter previously however after herTAVR or before her TAVR. Upon presentation she was complaining of tachycardia with palpitations. Heart rates were being sustained in the 120-130 range. An outpatient was she was instructed to take metoprolol that did not help her symptoms so she came emergency department for further evaluation. She had fatigue and some shortness of breath about 6 weeks now. She has never been tested for sleep apnea. She has no other significant symptoms. Vital signs on presentation other than tachycardia and elevated blood pressure with blood pressure 187/116 and a repeat of 168/109. Labs showed a chronic stable anemia with hemoglobin 11.9 but were otherwise unremarkable. CTA of the chest was performed and showed mediastinal fibrosis surrounding the right proximal pulmonary artery with moderately severe narrowing and poststenotic dilation of the right pulmonary artery. She was admitted maintained on her home metoprolol and placed on IV Cardizem drip. She has followed previously with cardiology at [facility] and with Dr. Danielle here in [place] for pulmonary medicine however he has not seen her since what appears to be about 2019. She currently is on a Cardizem drip as well as metoprolol. Heart rates were in the 70s but she remains in atrial flutter. At this time we will try to transition her off the drip to oral Cardizem 30 every 6 hours. We do have room to uptitrate then with plans to may get extended release Cardizem at the time of discharge if we get good heart rate control. Echocardiogram remains pending at this time. TSH is within normal limits. If we can maintain her heart rate control plan will befor discharge tomorrow on 05/31/2025. We have also started her on Eliquis 5 mg p.o. twice daily and discussed with her pathophysiology of A-fib and stroke. She voiced understanding. 05/30/25 [id number] <Electronically signed by Shagufta Garcia DO> Cosigner Signature (if applicable): CC: ~ Signed [facility] Work Phone: [phone]) 615-110807-01-2025 Consult note [facility] Medical Records Department [address] [place] [address] Consultation - Cardiology 05/30/25 1732 MR#: [id number] Acct: [id number] Name: VICKIE GONZALEZ Rep #:[id number] : 1955 69 From: Dianne Perez MD PCP: Dr. Kirill Newell MD Status:ADM IN [facility] Assessment & Plan Assessment/Plan (1) Fibrosing mediastinitis: (2) Status post double vessel coronary artery bypass: (3) Atrial flutter with rapid ventricular response: (4) Aortic valve insufficiency: QUALIFIERS: Cardiac valve disease etiology: etiology unspecified Qualified Code(s): I35.1 - Nonrheumatic aortic (valve) insufficiency PLAN: Plan Cardiac care plan recommendation 69-year-old patient with fibrosing mediastinitis Has CAD with two-vessel bypass, done in [facility] in [place] 2000. History of aortic valve bioprosthesis/TAVR This presentation she presented with palpitation And an review of the evaluation by EKG showed evidence of atrial flutter with 1- 2 AV block initially started on treatment with calcium channel shivam control the rate Serial cardiac markers negative does not have any symptoms of chest pain. Echocardiographic evaluation showed LV function preserved with normal functioning aortic valve bioprosthesis Moderate tricuspid regurgitation and mild mitral regurgitation and no pericardial effusion. Other medical problems with history of MADDY, and to be scheduled for sleep study. I discussed cardiac care plan which she will include long acting OAC/Eliquis 5 mg twice daily In addition to rate control using calcium channel shiavm if needed can add low- dose beta-shivam for better control of ventricular rate I did mention to the patient that she would require synchronized cardioversion if she continues to have atrial flutter. This can be set up as an elective outpatient in 6 to 8 weeks. Meantime also to follow-up with her primary milk wagon driver in [place] in regard to possible future atrial flutter ablation. And to continue on her current treatment. 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 Will continue to monitor and follow-up clinically I also advised to establish with a local milk wagon driver for continuation of cardiac care. Dianne Perez MD,[facility],PSYCHIATRIC HPI Consult Data Date of Consult: 05/30/25 HPI Narrative Reason for Consultation: CAD s/p CABG/TAVR atrial flutter/fibrosing mediastinitis HPI Narrative: VICKIE GONZALEZ, is a 69 F who presents [facility] Medical History (Updated 05/30/25 @ 04:[address] Remy Rai, DO) Hernia Chronic cough Allergic rhinitis Asthma Heart murmur Aortic valve insufficiency HTN (hypertension) Home Medications ?Medication ?Instructions ?Recorded ?Last Taken ?Type aspirin 81 mg tablet,delayed 81 mg PO QDAY 12/22/17 Un known History release (Adult Aspirin Regimen) cholecalciferol (vitamin D3) 125 5,000 unit PO QDAY Unknown History mcg (5,000 unit) capsule pravastatin 40 mg tablet 40 mg PO QHS 12/22/17 Unknow n History diphenhydramine HCl 25 mg capsule 25 mg PO QHS PRN sle ep 09/02/18 05/28/25 History (Benadryl) spacer #1 ea 03/06/20 Unknown Rx Lactobacillus acidophilus 100 mg PO DAILY 05/29/25 Unk nown History (Acidophilus capsule) ipratropium bromide 21 mcg (0.03 intranasal 05/29/25 0 05/28/25 History %) nasal spray levocetirizine 5 mg tablet (24HR 5 mg PO DAILY 5 Unknown History Allergy Relief) losartan 100 mg tablet 100 mg PO DAILY 05/29/25 Unk nown History magnesium 250 mg tablet 250 mg PO DAILY 05/29/25 Unk nown History metoprolol succinate 50 mg 50 mg PO DAILY 05/29/25 Unk nown History tablet,extended release 24 hr montelukast 10 mg tablet 10 mg PO DAILY 05/29/25 Unkn own History vitamin B complex (Vitamins B 1 cap PO DAILY 05/29/25 Unknown History Complex capsule) Allergy/AdvReac Type Severity Reaction Status Date / Time naproxen (From Naprosyn) Allergy Severe Hives Verified 05/29/25 23:10 Family History Mother Diabetes Father MADDY (obstructive sleep apnea) Surgical History S/P TAVR (transcatheter aortic valve replacement) Total knee replacement status Status post double vessel coronary artery bypass Social History Smoking Status: Never smoker second hand exposure: No alcohol intake: current alcohol intake frequency: a few times a month substance use type: former substance user Date of last use: marijuana in [employer] Physical Exam Cardio Cardio Narrative: Patient seen and examined at bedside Comfortable does not have any symptoms her palpitation improving Review of range mounter she had atrial flutter with controlled ventricular rate Cardiac exam normal bioprosthetic aortic valve sounds Risk Stratification Risk Stratification Applicable: No Objective Data Vital Signs: Vital Signs Temp Pulse Resp BP Pulse Ox O2 Del Method 98.3 F 99 16 134/70 H 95 Room Air 05/30/25 16:00 05/30/25 17:00 05/30/25 17:00 05/30/25 17:00 05/30/25 17:00 05/30/25 17:00 Oxygen Delivery Method Room Air Weight: 268 lb 11.896 oz Body Mass Index (BMI) 42.7 Intake & Output: Intake and Output for Last 24 Hours 05/28/25 05/29/25 05/30/25 23:59 23:59 23:59 Intake Total Balance Lab / Micro Data 05/30/25 04:35 05/30/25 04:35 Labs: Laboratory Results - last 24 hr 05/30/25 00:20: WBC 9.1, RBC 4.25, Hgb 12.4, Hct 37.5, MCV 88.2, MCH 29.2, MCHC 33.1, RDW Std Deviation 47.8 H, RDW Coeff of Mark 14.8 H, Plt Count 223, MPV 11.4, Immature Gran % (Auto) 0.300, Neut % (Auto) 63.2, Lymph % (Auto) 24.9, [place] % (Auto) 8.3, Eos % (Auto) 2.9, Baso % (Auto) 0.4, Absolute Neuts (auto) 5.7, Absolute Lymphs (auto) 2.26, Nucleated RBC % 0, Sodium 138, Potassium 3.9, [id number], Carbon Dioxide 23.9, Anion Gap 12, BUN 16, Creatinine 0.86, Estim Creat Clear Calc 81.19, Est GFR (MDRD) Non-Af 72, BUN/Creatinine Ratio 19.0, Glucose 105 H, Hemoglobin A1c 6.3 H, Calcium 9.4, Magnesium 2.0, TSH 3.020 05/30/25 04:35: WBC 8.4, RBC 4.13 L, Hgb 11.9 L, Hct 36.5 L, MCV 88.4, MCH 28.8,MCHC 32.6, RDW Std Deviation 47.9 H, RDW Coeff of Mark 14.8 H, Plt Count 213, MPV11.2, Immature Gran % (Auto) 0.400, Neut % (Auto) 61.8, Lymph % (Auto) 28.6, [place] % (Auto) 6.7, Eos % (Auto) 2.0, Baso % (Auto) 0.5, Absolute Neuts (auto) 5.2, Absolute Lymphs (auto) 2.41, Nucleated RBC % 0, Sodium 140, Potassium 4.1, Chloride 105, Carbon Dioxide 22.9, Anion Gap 12, BUN 14, Creatinine 0.78, Estim Creat Clear Calc 87.12, Est GFR (MDRD) Non-Af 82, BUN/Creatinine Ratio 17.9, Glucose 105 H, Calcium 9.1, Phosphorus 3.7, Total Bilirubin 0.74, AST 33 H, ALT 21, Alkaline Phosphatase 118 H, Troponin T High Sens 21 H, Total Protein 7.1, Albumin 3.6, Globulin 3.5, Albumin/Globulin Ratio 1.0, Triglycerides 72, Cholesterol 140,LDL Cholesterol, Calc 67, VLDL Cholesterol 14, HDL Cholesterol 58, Cholesterol/HDL Ratio 2.41 05/30/25 05:54: Troponin T Hi Sens 2 Hr 20 H 05/30/25 08:05: Troponin T Hi Sens 4Hr 20 H Cardiology Labs/Tests 05/30/25 00:20: WBC 9.1, RBC 4.25, Hgb 12.4, Hct 37.5, MCV 88.2, MCH 29.2, MCHC 33.1, Plt Count 223, MPV 11.4, Immature Gran % (Auto) 0.300, Neut % (Auto) 63.2,Lymph % (Auto) 24.9, [place] % (Auto) 8.3,Eos % (Auto) 2.9, Baso % (Auto) 0.4, Absolute Neuts (auto) 5.7, Nucleated RBC % 0, Sodium 138, Potassium 3.9, Chloride 103, Carbon Dioxide 23.9, Anion Gap 12, BUN 16, Creatinine 0.86, Est GFR (MDRD) Non-Af 72, BUN/Creatinine Ratio 19.0, Glucose 105 H, Hemoglobin A1c 6.3 H, Calcium 9.4, Magnesium 2.0 05/30/25 04:35: WBC 8.4, RBC 4.13 L, Hgb 11.9 L, Hct 36.5 L, MCV 88.4, MCH 28.8,MCHC 32.6, Plt Count 213, MPV 11.2, Immature Gran % (Auto) 0.400, Neut % (Auto) 61.8, Lymph % (Auto) 28.6, [place] % (Auto) 6.7, Eos % (Auto) 2.0, Baso % (Auto) 0.5, Absolute Neuts (auto) 5.2, Nucleated RBC % 0, Sodium 140, Potassium 4.1, Chloride 105, Carbon Dioxide 22.9, Anion Gap 12, BUN 14, Creatinine 0.78, Est GFR (MDRD) Non-Af 82, BUN/Creatinine Ratio 17.9, Glucose 105 H, Calcium 9.1, Phosphorus 3.7, Total Bilirubin 0.74, Triglycerides 72, Cholesterol 140, VLDL Cholesterol 14, HDL Cholesterol 58, Cholesterol/HDL Ratio 2.41 Rhythm: EKG: ECHO: Stress Test: Cardiac Cath: PCI: CT Surgery: Holter monitor: EPS: PPM: CXR: Chest CT Scan: Radiography Diagnostic Testing: Radiology Impression Echocardiogram 05/30/25 02:36 Interpretation Summary Normal function of aortic valve bioprosthesis/TAVR Normal aortic valve bioprosthesis function Mildly enlarged left atrium Moderately enlarged right atrium Mild MR No pericardial effusion Mild to moderate TR Contrast echo used Definity. 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 Progress imaging as clinically determined. Reading Location: [place] [address] 05/30/25 1743 Cosign Signature (if applicable): CC: Dr. Kirill Newell MD~ Signed [facility]07-01-2025 Progress note [facility] Medical Records Department [address] [place] [id number] Progress Note - Hospitalist 05/30/25 1532 MR#: [id number] Acct: [id number] Name: VICKIE GONZALEZ Rep #:[id number] : 1955 69 From: Shagufta Garcia DO PCP: Dr. Kirill Newell MD Status:ADM IN Location: [place] [address] Hospitalist Note Patient is a 69-year-old female who has a history of TAVR and CAD with CABG x 2 in 2000. 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 She presented to the emergency department with a racing heart and palpitations and EKG showed new onset atrial flutter. It sounds like she may have had a flutter previously however after herTAVR or befo re her TAVR. Upon presentation she was complaining of tachycardia with palpitations. Heart rates were being sustained in the 120-130 range. An outpatient was she was instructed to take metoprolol that did not help her symptoms so she came emergency department for further evaluation. She had fatigueand some shortness of breath about 6 weeks now. She has never been tested for sleep apnea. She has no other significant symptoms. Vital signs on presentation other than tachycardia and elevated bloodpressure with blood pressure 187/116 and a repeat of 168/109. Labs showed a chronic stable anemia wi th hemoglobin 11.9 but were otherwise unremarkable. CTA of the chest was performed and showed mediastinal fibrosis surrounding the right proximal pulmonary artery with moderately severe narrowing andpoststenotic dilation of the right pulmonary artery. She was admitted maintained on her home metoprolol and placed on IV Cardizem drip. She has followed previously with cardiology at [facility] and with Dr. Danielle here in [place] for pulmonary medicine however he has not seen her since what appears to be about 2019. She currently is on a Cardizem drip as well as metoprolol. Heart rates were in the 70s but she remains in atrial flutter. At this time we will try to transition her off the dr ip to oral Cardizem 30 every 6 hours. We do have room to uptitrate then with plans to may get extended release Cardizem at the time of discharge if we get good heart rate control. Echocardiogram remains pending at this time. TSH is within normal limits. If we can maintain her heart rate control plan will befor discharge tomorrow on 05/31/2025. We have also started her on Eliquis 5 mg p.o. twice daily and discussed with her pathophysiology of A-fib and stroke. She voiced understanding. 05/30/25 1555 Cosigner Signature (if applicable): CC: ~ Signed [facility]07-01-2025 History and physical note Author Nicol Roldan [facility] Note Date/Time May 30, 2025 5:36a m [facility] Medical Records Department [address] [place] [address] H&P Exam - Hospitalist 05/30/25 0208 MR#: [id number] Acct: [id number] Name: VICKIE GONZALEZ Rep #:[id number] : 1955 69 From: Nicol Grimaldo DO PCP: Dr. Kirill Newell MD Status:ADM IN [facility]: [id number] - General General Date of Admission: 05/30/25 Date of Service: 05/30/25 Chief Complaint: Heart Racing and Palpitations with New-onset Atrial Flutter. HPI Narrative VICKIE GONZALEZ, is a 69 F with a past medical history of essential hypertension; on losartan and metoprolol, hyperlipidemia; on pravastatin, morbidobesity; with BMI of 41 this admission, CAD; s/p CABG x 2 (2000), history of aortic valve insufficiency; s/p TAVR, history of fibrosing mediastinitis, history of asthma; on montelukast, history of allergic rhinitis; on intranasal ipratropium bromide and levocetirizine, history of basal cell carcinoma of LLE (2022); s/p Mohs excision, history of non-pressure chronic ulcer of LLE (2022) and OA; s/p TKR who presents to [facility] complaining of heart racing and palpitations with apparently new-onset atrial flutter. Ms. Gonzalez reports her symptoms began approximately 1 day prior to admission with the abrupt-onset of heart racing with sustained tachycardia in the ~120 bpmrange. She was evaluated by her PCP and had an EKG that revealed sinus tachycardia and was instructed to take extra metoprolol but if it did not help to relieve her symptoms she should come to the ER for further evaluation and treatment. She admits to waking up very tired and breathless for the past 6 weeks but she denies a history of having been formally diagnosed with obstructive sleep apnea. There was no report of fever, chills, nausea, vomiting, diarrhea, constipation, abdominal pain, chest pain, headache or rash. In the ER she was noted to have EKG evidence of New-onset Atrial Flutter with RVR at ~120 bpm requiring treatment with IV diltiazem drip and she was then admitted to the PCU for ongoing care for stay that is expected to extend beyond 2 midnights. [facility] Medical History (Updated 05/30/25 @ 04:[address] Remy Rai, DO) Hernia Chronic cough Allergic rhinitis Asthma Heart murmur Aortic valve insufficiency HTN (hypertension) Home Medications ?Medication ?Instructions ?Recorded ?Last Taken ?Type aspirin 81 mg tablet,delayed 81 mg PO QDAY 12/22/17 Un known History release (Adult Aspirin Regimen) cholecalciferol (vitamin D3) 125 5,000 unit PO QDAY Unknown History mcg (5,000 unit) capsule pravastatin 40 mg tablet 40 mg PO QHS 12/22/17 Unknow n History diphenhydramine HCl 25 mg capsule 25 mg PO QHS PRN sle ep 09/02/18 05/28/25 History (Benadryl) spacer #1 ea 03/06/20 Unknown Rx Lactobacillus acidophilus 100 mg PO DAILY 05/29/25 Unk nown History (Acidophilus capsule) ipratropium bromide 21 mcg (0.03 intranasal 05/29/25 0 05/28/25 History %) nasal spray levocetirizine 5 mg tablet (24HR 5 mg PO DAILY 5 Unknown History Allergy Relief) losartan 100 mg tablet 100 mg PO DAILY 05/29/25 Unk nown History magnesium 250 mg tablet 250 mg PO DAILY 05/29/25 Unk nown History metoprolol succinate 50 mg 50 mg PO DAILY 05/29/25 Unk nown History tablet,extended release 24 hr montelukast 10 mg tablet 10 mg PO DAILY 05/29/25 Unkn own History vitamin B complex (Vitamins B 1 cap PO DAILY 05/29/25 Unknown History Complex capsule) Allergy/AdvReac Type Severity Reaction Status Date / Time naproxen (From Naprosyn) Allergy Severe Hives Verified 05/29/25 23:10 Family History Mother Diabetes Father MADDY (obstructive sleep apnea) Surgical History S/P TAVR (transcatheter aortic valve replacement) Total knee replacement status Status post double vessel coronary artery bypass Social History Smoking Status: Never smoker second hand exposure: No alcohol intake: current alcohol intake frequency: a few times a month substance use type: former substance user Date of last use: marijuana in college ROS ROS Narrative Review of Systems: Constitutional: Patient denies fever or chills. Eyes: Patient denies change in vision or discharge from eyes. ENT: Patient denies runny nose, sore throat or ear pain. Resp: Patient denies shortness of breath or cough. CV: Patient admits to palpitations and heart racing but she denies chest pain. GI: Patient denies abdominal pain, nausea, vomiting, diarrhea or constipation. : Patient denies dysuria or hematuria. MSK: Patient denies arthralgias or myalgias. Skin: Patient denies rash, abscess, wounds or jaundice. Psych: Patient denies symptoms of uncontrolled depression or anxiety. Neuro: Patient denies headache, paresthesias or focal neurologic deficits. Allergy: Patient denies lip swelling, tongue swelling or urticaria. Hematology: Patient denies easy bleeding or easy bruisability. Endocrinology: Patient denies polyuria, polydipsia, polyphagia or heat/cold intolerance. 14 point ROS otherwise negative except for positives noted above in HPI. Vital Signs Vital Signs Vital Signs: 05/29/25 23:10 05/29/25 23:12 05/29/25 23:32 Temperature 98.4 F Temperature Source Oral Pulse Rate 124 H Respiratory Rate 18 Respiratory Effort Short of Breath Respiratory Pattern Normal Blood Pressure 187/116 H 186/113 H Blood Pressure Mean 139 137 Blood Pressure Source Pulse Ox 99 Oxygen Delivery Method Room Air 05/30/25 00:36 05/30/25 01:10 05/30/25 01:15 Temperature 97.4 F L Temperature Source Oral Pulse Rate 123 H 122 H 123 H Respiratory Rate 16 14 18 Respiratory Effort Respiratory Pattern Blood Pressure 168/109 H 161/105 H 161/105 H Blood Pressure Mean 128 123 123 Blood Pressure Source Monitor Monitor Pulse Ox 97 96 100 Oxygen Delivery Method Room Air Room Air Room Air 05/30/25 01:53 Temperature Temperature Source Pulse Rate 123 H Respiratory Rate 17 Respiratory Effort Respiratory Pattern Blood Pressure 137/90 H Blood Pressure Mean 105 Blood Pressure Source Monitor Pulse Ox 98 Oxygen Delivery Method Room Air Weight Weight: 262 lb Body Mass Index (BMI) 41.0 Physical Exam Const alert, oriented x3 and no apparent distress Constitutional Narrative: Morbidly obese. General Appearance: cooperative HEENT normocephalic, head/scalp atraumatic, hearing grossly normal bilaterally and moist oral mucous membranes Eyes PERRL and EOMs intact bilaterally Neck no lymphadenopathy and supple Resp normal respiratory effort, no retractions, no use of accessory muscles and clearto auscultation bilaterally Cardio regular rate and regular rhythm Cardio Narrative: Tachycardia noted at ~120 bpm. GI normal to inspection, nondistended, normoactive bowel sounds, soft to palpation,non-tender and non-distended GI Narrative: Morbidly obese. Extremity normal to inspection and full ROM Skin Skin Narrative: Patient has no evidence of rash, abscess, wounds or jaundice. Neuro oriented x3, CN's II-XII intact bilaterally, moves all extremities and no focal motor deficits Sensorium / Orientation: awake, alert, oriented to person, oriented to place andoriented to time Speech: speech normal Psych affect normal Results Medical Records Data Attestation: I reviewed the patient's medical records Lab / Micro Data Attestation: I reviewed the patient's lab results. 05/30/25 04:35 05/30/25 00:20 Labs: Laboratory Results - last 24 hr 05/30/25 00:20: WBC 9.1, RBC 4.25, Hgb 12.4, Hct 37.5, MCV 88.2, MCH 29.2, MCHC 33.1, RDW Std Deviation 47.8 H, RDW Coeff of Mark 14.8 H, Plt Count 223, MPV 11.4, Immature Gran % (Auto) 0.300, Neut % (Auto) 63.2, Lymph % (Auto) 24.9, [place] % (Auto) 8.3, Eos % (Auto) 2.9, Baso % (Auto) 0.4, Absolute Neuts (auto) 5.7, Absolute Lymphs (auto) 2.26, Nucleated RBC % 0, Sodium 138, Potassium 3.9, Chloride 103, Carbon Dioxide 23.9, Anion Gap 12, BUN 16, Creatinine 0.86, Estim Creat Clear Calc 81.19, Est GFR (MDRD) Non-Af 72, BUN/Creatinine Ratio 19.0, Glucose 105 H, Calcium 9.4, Magnesium 2.0, TSH 3.020 Imaging [facility] Imaging Services [address] [place] [address] CTA Chest W/WO Contrast MR#: [id number] Acct: [id number] Name: VICKIE GONZALEZ Rep #: [id number] : 1955 F 69 From: Geraldo Moore MD PCP: Dr. Kirill Newell MD Status: ADM IN Study: CTA Chest W/WO Contrast Date of Exam: 05/30/25 Exam# [id number] Ordering Dr: Nicol Silva DO PROCEDURE: CTA CHEST W/WO CONTRAST 05/30/2025 REASON FOR EXAM: HISTORY OF FIBROSING MEDIASTINITIS. TECHNIQUE: CTA CHEST W/WO CONTRAST Multiplanar Sagittal and Coronal images were obtained. CONTRAST: Isovue 370 VOLUME: 93 mL One or more dose reduction techniques were used (e.g., Automated exposure control, adjustment of the mA and/or kV according to patient size, use of iterative reconstruction technique). RADIATION DOSE SUMMARY: CTDlvol: 45 mGy DLP: 594 mGycm COMPARISON: Chest x-ray 12/14/2023 FINDINGS: Unremarkable base of neck and axilla. Thoracic spine scoliosis and degeneration. Normal esophagus. Mildly enlarged heart. Status post AVR. Status post CABG. No aortic dissection. No pulmonary embolism. However, the proximal right pulmonary artery shows moderately severe narrowing, series 2 images 167/179, with surrounding soft tissue, which may represent fibrosis and may be related to the prior ascending aortic repair. Central airways are patent. Small basilar atelectasis. No consolidation, effusion, or pneumothorax. No acute chest wall findings. No acute upper abdominal findings. 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 Progress imaging as clinically determined. Reading Location: [facility] Assessment & Plan Assessment/Plan (1) Atrial flutter with rapid ventricular response: (2) Palpitations: (3) Racing heart beat: (4) MADDY (obstructive sleep apnea): (5) BMI 40.0-44.9, adult: (6) Aortic valve insufficiency: QUALIFIERS: Cardiac valve disease etiology: etiology unspecified Qualified Code(s): I35.1 - Nonrheumatic aortic (valve) insufficiency (7) S/P TAVR (transcatheter aortic valve replacement): (8) Status post double vessel coronary artery bypass: (9) Fibrosing mediastinitis: PLAN: Plan 1. EKG evidence of New-onset Atrial Flutter with RVR at ~120 bpm with Palpitations and Heart Racing - Admit to PCU. Continue IV diltiazem and titrateto keep heart rate less than 100 bpm. Patient treated with full dose enoxaparinin ER as a precursor to eventual transitioning to NOAC. Normal TSH of 3.02 noted in ER. Check echocardiogram to evaluate LVEF. Serialize troponin. Give acetaminophen as needed for pain or fever. Finally, we will consult [facility] see this patient on rounds in a.m. for further recommendations with appreciated in advance. 2. Morbid (class III) obesity; with BMI of 41 this admission with suspected OSAcausing #1 - Check overnight oximetry test to screen for MADDY. Patient will needformal sleep study to be set up at time of discharge. Weight loss will be recommended. This complicates her case and may hamper recovery. 3. History of aortic valve insufficiency; s/p TAVR complicating #1 & #2 - Echocardiogram pending in a.m. to reassess aortic valve function. 4. CAD; s/p CABG x 2 (2000) compounding #1 - #3 - Noted. 5. History of fibrosing mediastinitis - Noted. Checked CT scan of chest with IV contrast to reassess with scan revealing mediastinal fibrosis surrounding theproximal Right pulmonary artery, with moderately severe narrowing, and poststenotic dilatation, of the Right pulmonary artery. Progress imaging as clinically determined. 6. Essential hypertension; on losartan and metoprolol - Maintain home regimen plus give as needed IV hydralazine for systolic blood pressure greater than 160 mmHg. 7. Hyperlipidemia; on pravastatin - Resume statin and check lipid profile in light of #1. 8. History of asthma; on montelukast - Stable with no evidence of acute flare. 9. History of allergic rhinitis; on intranasal ipratropium bromide and levocetirizine - Continue present therapy. 10. History of basal cell carcinoma of LLE (2022); s/p Mohs excision - Noted. 11. History of non-pressure chronic ulcer of LLE (2022) - Noted. 12. OA; s/p TKR - We will give acetaminophen prn as outlined in #1. 13. DVT prophylaxis - Patient on full-dose enoxaparin for #1. Total time: Approximately (but not less than) 75 minutes. Charges/Coding Visit Charges Inpatient E&M: 27131 Init Hosp L3 05/30/25 0536 <Electronically signed by Nicol Silva DO> Cosigner Signature (if applicable): CC: Dr. Nicol Silva DO; Dr. Kirill Newell MD~ Signed [facility] Work Phone: [phone] 725-729307-01-2025 Discharge summary Author Remy Rai [facility] Note Date/Time May 30, 2025 4:21a m [facility] Medical Records Department [address] [place] [address] Emergency Department Summary 05/30/25 MR#: [id number] Acct: [id number] Name: VICKIE GONZALEZ Rep #:[id number] : 1955 69 From: Remy Rai DO PCP: Dr. Kirill Newell MD Status:ADM IN Location: [address] History of Present Illness Chief Complaint: Hypertension Informant: patient and spouse/S.O. Narrative Narrative: Patient is a 69-year-old female with past medical history of hypertension and aortic valve insufficiency as well as coronary artery disease. She states yesterday in the evening she was sitting at rest and began to feel like her heart was racing. She states she tried to sleep but since she does toss and turn throughout the night. She states symptoms were persistent in the morning and so she followed with her family doctor. The family doctor recommended she take extra metoprolol to see if this helped control her symptoms. She reports she has had 150 mg of the metoprolol today and there has been no symptom improvement. She states overall she feels extremely tired/fatigued. She deniesany known history of cardiac dysrhythmia. She denies any excessive stimulant use or illicit drug use. [facility] Medical History (Updated 05/30/25 @ 04:[address] Remy Rai DO) Hernia Chronic cough Allergic rhinitis Asthma Heart murmur Aortic valve insufficiency HTN (hypertension) Home Medications ?Medication ?Instructions ?Recorded ?Last Taken ?Type aspirin 81 mg tablet,delayed 81 mg PO QDAY 12/22/17 Un known History release (Adult Aspirin Regimen) cholecalciferol (vitamin D3) 125 5,000 unit PO QDAY Unknown History mcg (5,000 unit) capsule pravastatin 40 mg tablet 40 mg PO QHS 12/22/17 Unknow n History diphenhydramine HCl 25 mg capsule 25 mg PO QHS PRN sle ep 09/02/18 05/28/25 History (Benadryl) spacer #1 ea 03/06/20 Unknown Rx Lactobacillus acidophilus 100 mg PO DAILY 05/29/25 Unk nown History (Acidophilus capsule) ipratropium bromide 21 mcg (0.03 intranasal 05/29/25 0 05/28/25 History %) nasal spray levocetirizine 5 mg tablet (24HR 5 mg PO DAILY 5 Unknown History Allergy Relief) losartan 100 mg tablet 100 mg PO DAILY 05/29/25 Unk nown History magnesium 250 mg tablet 250 mg PO DAILY 05/29/25 Unk nown History metoprolol succinate 50 mg 50 mg PO DAILY 05/29/25 Unk nown History tablet,extended release 24 hr montelukast 10 mg tablet 10 mg PO DAILY 05/29/25 Unkn own History vitamin B complex (Vitamins B 1 cap PO DAILY 05/29/25 Unknown History Complex capsule) Allergy/AdvReac Type Severity Reaction Status Date / Time naproxen (From Naprosyn) Allergy Severe Hives Verified 05/29/25 23:10 Family History Mother Diabetes Father MADDY (obstructive sleep apnea) Surgical History S/P TAVR (transcatheter aortic valve replacement) Total knee replacement status Status post double vessel coronary artery bypass Social History Smoking Status: Never smoker second hand exposure: No alcohol intake: current alcohol intake frequency: a few times a month substance use type: former substance user Date of last use: marijuana in college ROS ROS ED Constitutional Constitutional ED: Reports other Details: Positive fatigue ; Denies chills or fever(s) Eyes Eyes: Denies blurry vision or change in vision ENT ENT ED: Denies sore throat Cardiovascular Cardiovascular: Reports palpitations and racing heartbeat; Denies chest pain Respiratory/Chest Respiratory/Chest: Denies cough or dyspnea Gastrointestinal Gastrointestinal: Denies abdominal pain, diarrhea, nausea or vomiting Genitourinary Genitourinary ED: Denies dysuria Musculoskeletal Musculoskeletal: Denies myalgias Integumentary Denies rash Neurologic Neurologic: Denies headache(s) Hematologic/Lymphatic Hematologic/Lymphatic: Denies easy bleeding or easy bruising EXAM Physical Exam Const Vital Signs: 05/29/25 23:10 05/29/25 23:12 05/29/25 23:32 Temperature 98.4 F Temperature Source Oral Pulse Rate 124 H Respiratory Rate 18 Respiratory Effort Short of Breath Respiratory Pattern Normal Blood Pressure 187/116 H 186/113 H Blood Pressure Mean 139 137 Blood Pressure Source Pulse Ox 99 Oxygen Delivery Method Room Air 05/30/25 00:36 05/30/25 01:10 05/30/25 01:15 Temperature 97.4 F L Temperature Source Oral Pulse Rate 123 H 122 H 123 H Respiratory Rate 16 14 18 Respiratory Effort Respiratory Pattern Blood Pressure 168/109 H 161/105 H 161/105 H Blood Pressure Mean 128 123 123 Blood Pressure Source Monitor Monitor Pulse Ox 97 96 100 Oxygen Delivery Method Room Air Room Air Room Air 05/30/25 01:53 Temperature Temperature Source Pulse Rate 123 H Respiratory Rate 17 Respiratory Effort Respiratory Pattern Blood Pressure 137/90 H Blood Pressure Mean 105 Blood Pressure Source Monitor Pulse Ox 98 Oxygen Delivery Method Room Air Positive well nourished and well developed General Appearance ED: well developed; Negative for pallor HEENT HEENT Narrative: Normocephalic atraumatic Eyes PERRL and EOMs intact bilaterally General Eye ED: Negative for scleral icterus Neck supple and no JVD Neck Narrative: No nuchal rigidity or meningeal signs Resp normal respiratory effort and clear to auscultation bilaterally Resp Narrative: No nasal flaring retractions or accessory muscle use Cardio regular rhythm Rate: tachycardic and other Other Details: Tachycardic rate with regular rhythm Grade 4 out of 6 systolic murmur noted Radial and carotid pulses are equal and symmetric GI normal to inspection, nondistended, normoactive bowel sounds, non-tender, non-distended and no masses GI Narrative: No voluntary guarding or rigidity or pulsatile mass Auscultation: normoactive bowel sounds Palpation: soft Extremity normal to inspection Extremity Narrative: Negative Homans' sign bilaterally Neuro oriented x3, CN's II-XII intact bilaterally and no sensory deficits noted Sensorium / Orientation: alert Motor Exam: strength 5/5 throughout Psych mental status grossly normal Skin no rashes or lesions noted and no wounds General Skin Exam: Negative for jaundice or pallor MDM MDM MDM Narrative Medical decision making narrative: Patient arrived to the ER hypertensive and tachycardic. She has a past medical history of hypertension. With the persistent tachycardia for approximately 24 hours there is high likelihood for cardiac dysrhythmia. She is status post TAVRinsertion and therefore concern for a clot that is caused a PE is low and I do not feel the need for a CTA. Based on the cardiac dysrhythmia there is concern that she may have thyroid dysfunction PAULINE or clinically significant electrolyte abnormality. Blood work revealed no acute findings. The patient was placed on a Cardizem drip secondary to the EKG displaying atrial flutter. Despite being on the Cardizem drip there has been no resolution of the atrial flutter. As thepatient has been in the abnormal cardiac rhythm for 24 hours and she is still persistently in it despite the Cardizem I feel she needs admitted for continued medication as well as cardiology consultation. I contacted the hospitalist secondary to this who agrees to accept the patient for continued care. History & Record Review Discussion w/independent historian: Patient and Significant other Lab Data Attestation: I reviewed the patient's lab results. Labs: Laboratory Results - last 24 hr 05/30/25 00:20 WBC 9.1 RBC 4.25 Hgb 12.4 Hct 37.5 MCV 88.2 MCH 29.2 MCHC 33.1 RDW Std Deviation 47.8 H RDW Coeff of Mark 14.8 H Plt Count 223 MPV 11.4 Immature Gran % (Auto) 0.300 Neut % (Auto) 63.2 Lymph % (Auto) 24.9 [place] % (Auto) 8.3 Eos % (Auto) 2.9 Baso % (Auto) 0.4 Absolute Neuts (auto) 5.7 Absolute Lymphs (auto) 2.26 Nucleated RBC % 0 Sodium 138 Potassium 3.9 Chloride 103 Carbon Dioxide 23.9 Anion Gap 12 BUN 16 Creatinine 0.86 Estim Creat Clear Calc 81.19 Est GFR (MDRD) Non-Af 72 BUN/Creatinine Ratio 19.0 Glucose 105 H Calcium 9.4 Magnesium 2.0 TSH 3.020 Management Discussion w/another healthcare provider: Hospitalist Discharge Plan Dx/Rx/DC Orders Clinical Impression: HTN (hypertension), Aortic valve insufficiency, MADDY (obstructive sleep apnea), New onset atrial flutter Disposition Disposition: Acute Care [facility] Discharge Date/Time: 05/30/25 02:56 What to do if you have Problems For any increased pain, shortness of breath, bleeding, nausea or vomiting, chestpain, or any unexpected problems, contact your Primary Care Provider. Call [facility] ([phone]) or report to the closest Emergency Room. Call 911 if necessary. 05/30/25 0421 <Electronically signed by Remy Rai DO> Cosigner Signature (if applicable): CC: Dr. Kirill Newell MD ~ Signed [facility] Work Phone: [phone] 722-833907-01-2025 History and physical note [facility] Medical Records Department [address] [place] [address] H&P Exam - Hospitalist 05/30/25 0208 MR#: [id number] Acct: [id number] Name: VICKIE GONZALEZ Rep #:[id number] : 1955 69 From: Nicol Grimaldo DO PCP: Dr. Kirill Newell MD Status:ADM IN Location: [place] [address] HPI - General General Date of Admission: 05/30/25 Date of Service: 05/30/25 Chief Complaint: Heart Racing and Palpitations with New-onset Atrial Flutter. HPI Narrative VICKIE GONZALEZ, is a 69 F with a past medical history of essential hypertension; on losartan and metoprolol, hyperlipidemia; on pravastatin, morbidobesity; with BMI of 41 this admission, CAD; s/p CABG x 2 (2000), history of aortic valve insufficiency; s/p TAVR, history of fibrosing mediastinitis, history of asthma; on montelukast, history of allergic rhinitis; on intranasal ipratropium bromide and levocetirizine, history of basal cell carcinoma of LLE (2022); s/p Mohs excision, history of non-pressure chronic ulcer of LLE (2022) and OA; s/p TKR who presents to [facility] complaining of heart racing and palpitations with apparently new-onset atrial flutter. Ms. Gonzalez reports her symptoms began approximately 1 day prior to admission with the abrupt-onset of heart racing with sustained tachycardia in the ~120 bpmrange. She was evaluated by her PCP and had an EKG that revealed sinus tachycardia and was instructed to take extra metoprolol but if it didnot help to relieve her symptoms she should come to the ER for further evaluation and treatment. She admits to waking up very tired and breathless for the past 6 weeks but she denies a history of having been formally diagnosed with obstructive sleep apnea. There was no report of fever, chills, nausea, vomiting, diarrhea, constipation, abdominal pain, chest pain, headache or rash. In the ER she was noted to have EKG evidence of New-onset Atrial Flutter with RVR at ~120 bpm requiring treatment with IV diltiazem drip and she was then admitted to the PCU for ongoing care for stay that is expectedto extend beyond 2 midnights. [facility] Medical History (Updated 05/30/25 @ 04:[address] Remy Rai, DO) Hernia Chronic cough Allergic rhinitis Asthma Heart murmur Aortic valve insufficiency HTN (hypertension) Home Medications ?Medication ?Instructions ?Recorded ?Last Taken ?Type aspirin 81 mg tablet,delayed 81 mg PO QDAY 12/22/17 Un known History release (Adult Aspirin Regimen) cholecalciferol (vitamin D3) 125 5,000 unit PO QDAY Unknown History mcg (5,000 unit) capsule pravastatin 40 mg tablet 40 mg PO QHS 12/22/17 Unknow n History diphenhydramine HCl 25 mg capsule 25 mg PO QHS PRN sle ep 09/02/18 05/28/25 History (Benadryl) spacer #1 ea 03/06/20 Unknown Rx Lactobacillus acidophilus 100 mg PO DAILY 05/29/25 Unk nown History (Acidophilus capsule) ipratropium bromide 21 mcg (0.03 intranasal 05/29/25 0 05/28/25 History %) nasal spray levocetirizine 5 mg tablet (24HR 5 mg PO DAILY 5 Unknown History Allergy Relief) losartan 100 mg tablet 100 mg PO DAILY 05/29/25 Unk nown History magnesium 250 mg tablet 250 mg PO DAILY 05/29/25 Unk nown History metoprolol succinate 50 mg 50 mg PO DAILY 05/29/25 Unk nown History tablet,extended release 24 hr montelukast 10 mg tablet 10 mg PO DAILY 05/29/25 Unkn own History vitamin B complex (Vitamins B 1 cap PO DAILY 05/29/25 Unknown History Complex capsule) Allergy/AdvReac Type Severity Reaction Status Date / Time naproxen (From Naprosyn) Allergy Severe Hives Verified 05/29/25 23:10 Family History Mother Diabetes Father MADDY (obstructive sleep apnea) Surgical History S/P TAVR (transcatheter aortic valve replacement) Total knee replacement status Status post double vessel coronary artery bypass Social History Smoking Status: Never smoker second hand exposure: No alcohol intake: current alcohol intake frequency: a few times a month substance use type: former substance user Date of last use: marijuana in college ROS ROS Narrative Review of Systems: Constitutional: Patient denies fever or chills. Eyes: Patient denies change in vision or discharge from eyes. ENT: Patient denies runny nose, sore throat or ear pain. Resp: Patient denies shortness of breath or cough. CV: Patient admits to palpitations and heart racing but she denies chest pain. GI: Patient denies abdominal pain, nausea, vomiting, diarrhea or constipation. : Patient denies dysuria or hematuria. MSK: Patient denies arthralgias or myalgias. Skin: Patient denies rash, abscess, wounds or jaundice. Psych: Patient denies symptoms of uncontrolled depression or anxiety. Neuro: Patient denies headache, paresthesias or focal neurologic deficits. Allergy: Patient denies lip swelling, tongue swelling or urticaria. Hematology: Patient denies easy bleeding or easy bruisability. Endocrinology: Patient denies polyuria, polydipsia, polyphagia or heat/cold intolerance. 14 point ROS otherwise negative except for positives noted above in HPI. Vital Signs Vital Signs Vital Signs: 05/29/25 23:10 05/29/25 23:12 05/29/25 23:32 Temperature 98.4 F Temperature Source Oral Pulse Rate 124 H Respiratory Rate 18 Respiratory Effort Short of Breath Respiratory Pattern Normal Blood Pressure 187/116 H 186/113 H Blood Pressure Mean 139 137 Blood Pressure Source Pulse Ox 99 Oxygen Delivery Method Room Air 05/30/25 00:36 05/30/25 01:10 05/30/25 01:15 Temperature 97.4 F L Temperature Source Oral Pulse Rate 123 H 122 H 123 H Respiratory Rate 16 14 18 Respiratory Effort Respiratory Pattern Blood Pressure 168/109 H 161/105 H 161/105 H Blood Pressure Mean 128 123 123 Blood Pressure Source Monitor Monitor Pulse Ox 97 96 100 Oxygen Delivery Method Room Air Room Air Room Air 05/30/25 01:53 Temperature Temperature Source Pulse Rate 123 H Respiratory Rate 17 Respiratory Effort Respiratory Pattern Blood Pressure 137/90 H Blood Pressure Mean 105 Blood Pressure Source Monitor Pulse Ox 98 Oxygen Delivery Method Room Air Weight Weight: 262 lb Body Mass Index (BMI) 41.0 Physical Exam Const alert, oriented x3 and no apparent distress Constitutional Narrative: Morbidly obese. General Appearance: cooperative HEENT normocephalic, head/scalp atraumatic, hearing grossly normal bilaterally and moist oral mucous membranes Eyes PERRL and EOMs intact bilaterally Neck no lymphadenopathy and supple Resp normal respiratory effort, no retractions, no use of accessory muscles and clearto auscultation bilaterally Cardio regular rate and regular rhythm Cardio Narrative: Tachycardia noted at ~120 bpm. GI normal to inspection, nondistended, normoactive bowel sounds, soft to palpation,non-tender and non-distended GI Narrative: Morbidly obese. Extremity normal to inspection and full ROM Skin Skin Narrative: Patient has no evidence of rash, abscess, wounds or jaundice. Neuro oriented x3, CN's II-XII intact bilaterally, moves all extremities and no focal motor deficits Sensorium / Orientation: awake, alert, oriented to person, oriented to place andoriented to time Speech: speech normal Psych affect normal Results Medical Records Data Attestation: I reviewed the patient's medical records Lab / Micro Data Attestation: I reviewed the patient's lab results. 05/30/25 04:35 05/30/25 00:20 Labs: Laboratory Results - last 24 hr 05/30/25 00:20: WBC 9.1, RBC 4.25, Hgb 12.4, Hct 37.5, MCV 88.2, MCH 29.2, MCHC 33.1, RDW Std Deviation 47.8 H, RDW Coeff of Mark 14.8 H, Plt Count 223, MPV 11.4, Immature Gran % (Auto) 0.300, Neut % (Auto) 63.2, Lymph % (Auto) 24.9, [place] % (Auto) 8.3, Eos % (Auto) 2.9, Baso % (Auto) 0.4, Absolute Neuts (auto) 5.7, Absolute Lymphs (auto) 2.26, Nucleated RBC % 0, Sodium 138, Potassium 3.9, [id number], Carbon Dioxide 23.9, Anion Gap 12, BUN 16, Creatinine 0.86, Estim Creat Clear Calc 81.19, Est GFR (MDRD) Non-Af 72, BUN/Creatinine Ratio 19.0, Glucose 105 H, Calcium 9.4, Magnesium 2.0, TSH 3.020 Imaging [facility] Imaging Services [address] [place] [address] [id number] CTA Chest W/WO Contrast MR#: [id number] Acct: [id number] Name: VICKIE GONZALEZ Rep #: [id number] : 1955 F 69 From: Geraldo Moore MD PCP: Dr. Kirill Newell MD Status: ADM IN Study: CTA Chest W/WO Contrast Date of Exam: 05/30/25 Exam# [id number] Ordering Dr: Nicol Silva DO PROCEDURE: CTA CHEST W/WO CONTRAST 05/30/2025 REASON FOR EXAM: HISTORY OF FIBROSING MEDIASTINITIS. TECHNIQUE: CTA CHEST W/WO CONTRAST Multiplanar Sagittal and Coronal images were obtained. CONTRAST: Isovue 370 VOLUME: 93 mL One or more dose reduction techniques were used (e.g., Automated exposure control, adjustment of the mA and/or kV according to patient size, use of iterative reconstruction technique). RADIATION DOSE SUMMARY: CTDlvol: 45 mGy DLP: 594 mGycm COMPARISON: Chest x-ray 12/14/2023 FINDINGS: Unremarkable base of neck and axilla. Thoracic spine scoliosis and degeneration. Normal esophagus. Mildly enlarged heart. Status post AVR. Status post CABG. No aortic dissection. No pulmonary embolism. However, the proximal right pulmonary artery shows moderately severe narrowing, series 2 images 167/179, with surrounding soft tissue, which mayrepresent fibrosis and may be related to the prior ascending aortic repair. Central airways are patent. Small basilar atelectasis. No consolidation, effusion, or pneumothorax. No acute chest wall findings. No acute upper abdominal findings. 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 Progress imaging as clinically determined. Reading Location: [place] [address] Assessment & Plan Assessment/Plan (1) Atrial flutter with rapid ventricular response: (2) Palpitations: (3) Racing heart beat: (4) MADDY (obstructive sleep apnea): (5) BMI 40.0-44.9, adult: (6) Aortic valve insufficiency: QUALIFIERS: Cardiac valve disease etiology: etiology unspecified Qualified Code(s): I35.1 - Nonrheumatic aortic (valve) insufficiency (7) S/P TAVR (transcatheter aortic valve replacement): (8) Status post double vessel coronary artery bypass: (9) Fibrosing mediastinitis: PLAN: Plan 1. EKG evidence of New-onset Atrial Flutter with RVR at ~120 bpm with Palpitations and Heart Racing- Admit to PCU. Continue IV diltiazem and titrateto keep heart rate less than 100 bpm. Patient treated with full dose enoxaparinin ER as a precursor to eventual transitioning to NOAC. Normal TSH of 3.02 noted in ER. Check echocardiogram to evaluate LVEF. Serialize troponin. Give acetaminophen as needed for pain or fever. Finally, we will consult [facility] see this patient on rounds in a.m. for further recommendations with appreciated in advance. 2. Morbid (class III) obesity; with BMI of 41 this admission with suspected OSAcausing #1 - Check overnight oximetry test to screen for MADDY. Patient will needformal sleep study to be set up at time of discharge. Weight loss will be recommended. This complicates her case and may hamper recovery. 3. History of aortic valve insufficiency; s/p TAVR complicating #1 & #2 - Echocardiogram pending in a.m. to reassess aortic valve function. 4. CAD; s/p CABG x 2 (2000) compounding #1 - #3 - Noted. 5. History of fibrosing mediastinitis - Noted. Checked CT scan of chest with IV contrast to reassess with scan revealing mediastinal fibrosis surrounding theproximal Right pulmonary artery, with moderately severe narrowing, and poststenotic dilatation, of the Right pulmonary artery. Progress imaging as clinically determined. 6. Essential hypertension; on losartan and metoprolol - Maintain home regimen plus give as needed IV hydralazine for systolic blood pressure greater than 160 mmHg. 7. Hyperlipidemia; on pravastatin - Resume statin and check lipid profile in light of #1. 8. History of asthma; on montelukast - Stable with no evidence of acute flare. 9. History of allergic rhinitis; on intranasal ipratropium bromide and levocetirizine - Continue present therapy. 10. History of basal cell carcinoma of LLE (2022); s/p Mohs excision - Noted. 11. History of non-pressure chronic ulcer of LLE (2022) - Noted. 12. OA; s/p TKR - We will give acetaminophen prn as outlined in #1. 13. DVT prophylaxis - Patient on full-dose enoxaparin for #1. Total time: Approximately (but not less than) 75 minutes. Charges/Coding Visit Charges Inpatient E&M: 57115 Init Hosp L3 05/30/25 0536 Cosigner Signature (if applicable): CC: Dr. Nicol Silva DO; Dr. Kirill Newell MD~ Signed [facility]07-01-2025 Evaluation note* Diagnosis Onset Date Resolution Status Admit Date Atrial flutter with rapid ventricular response acute May 30 025 2:29am MADDY (obstructive sleep apnea) acute May 30, 2025 2:29am Palpitations acute May 30 2:29am Racing heart beat acute May 2:29am S/P TAVR (transcatheter aort ic valve replacement) acute May 30 2:29am Aortic valve insufficiency chronic May 30, 2025 2:29am BMI 40.0-44.9, adult chronic May 30, 2025 2:29am Fibrosing mediastinitis chronic J olu 2025 2:29am Status post double vessel coronary artery bypass resolved May 30, 2025 2:29am [facility] Work Phone: [phone]) 699-618707-01-2025 Evaluation note* Diagnosis Onset Date Resolution Status Admit Date Palpitations resolved May 30 2:29am Racing heart beat resolved May 2:29am Status post double vessel coronary artery bypass resolved May 30, 2025 2:29am Aortic valve insufficiency inactive May 30, 2025 2:29am Atrial flutter with rapid ventricular response inactive May 30 025 2:29am BMI 40.0-44.9, adult inactive May 30, 2025 2:29am Fibrosing mediastinitis inactive J 2024 2:29am S/P TAVR (transcatheter aort ic valve replacement) inactive May 30 2:29am MADDY (obstructive sleep apnea) delete d May 30, 2025 2:29am [facility] Work Phone: 1(883) 338-583207-01-2025 Discharge summary [facility] Medical Records Department [address] [place] [address] Emergency Department Summary 05/30/25 MR#: [id number] Acct: [id number] Name: VICKIE GONZALEZ Rep #:[id number] : 1955 69 From: Remy Rai DO PCP: Dr. Kirill Newell MD Status:ADM IN Location: [address] History of Present Illness Chief Complaint: Hypertension Informant: patient and spouse/S.O. Narrative Narrative: Patient is a 69-year-old female with past medical history of hypertension and aortic valve insufficiency as well as coronary artery disease. She states yesterday in the evening she was sitting at rest and began to feel like her heart was racing. She states she tried to sleep but since she does tossand turn throughout the night. She states symptoms were persistent in the morning and so she followed with her family doctor. The family doctor recommended she take extra metoprolol to see if this helped control her symptoms. She reports she has had 150 mg of the metoprolol today and there has beenno symptom improvement. She states overall she feels extremely tired/fatigued. She deniesany known history of cardiac dysrhythmia. She denies any excessive stimulant use or illicit drug use. [facility] Medical History (Updated 05/30/25 @ 04:[address] Remy Rai DO) Hernia Chronic cough Allergic rhinitis Asthma Heart murmur Aortic valve insufficiency HTN (hypertension) Home Medications ?Medication ?Instructions ?Recorded ?Last Taken ?Type aspirin 81 mg tablet,delayed 81 mg PO QDAY 12/22/17 Un known History release (Adult Aspirin Regimen) cholecalciferol (vitamin D3) 125 5,000 unit PO QDAY Unknown History mcg (5,000 unit) capsule pravastatin 40 mg tablet 40 mg PO QHS 12/22/17 Unknow n History diphenhydramine HCl 25 mg capsule 25 mg PO QHS PRN sle ep 09/02/18 05/28/25 History (Benadryl) spacer #1 ea 03/06/20 Unknown Rx Lactobacillus acidophilus 100 mg PO DAILY 05/29/25 Unk nown History (Acidophilus capsule) ipratropium bromide 21 mcg (0.03 intranasal 05/29/25 0 05/28/25 History %) nasal spray levocetirizine 5 mg tablet (24HR 5 mg PO DAILY 5 Unknown History Allergy Relief) losartan 100 mg tablet 100 mg PO DAILY 05/29/25 Unk nown History magnesium 250 mg tablet 250 mg PO DAILY 05/29/25 Unk nown History metoprolol succinate 50 mg 50 mg PO DAILY 05/29/25 Unk nown History tablet,extended release 24 hr montelukast 10 mg tablet 10 mg PO DAILY 05/29/25 Unkn own History vitamin B complex (Vitamins B 1 cap PO DAILY 05/29/25 Unknown History Complex capsule) Allergy/AdvReac Type Severity Reaction Status Date / Time naproxen (From Naprosyn) Allergy Severe Hives Verified 05/29/25 23:10 Family History Mother Diabetes Father MADDY (obstructive sleep apnea) Surgical History S/P TAVR (transcatheter aortic valve replacement) Total knee replacement status Status post double vessel coronary artery bypass Social History Smoking Status: Never smoker second hand exposure: No alcohol intake: current alcohol intake frequency: a few times a month substance use type: former substance user Date of last use: marijuana in college ROS ROS ED Constitutional Constitutional ED: Reports other Details: Positive fatigue ; Denies chills or fever(s) Eyes Eyes: Denies blurry vision or change in vision ENT ENT ED: Denies sore throat Cardiovascular Cardiovascular: Reports palpitations and racing heartbeat; Denies chest pain Respiratory/Chest Respiratory/Chest: Denies cough or dyspnea Gastrointestinal Gastrointestinal: Denies abdominal pain, diarrhea, nausea or vomiting Genitourinary Genitourinary ED: Denies dysuria Musculoskeletal Musculoskeletal: Denies myalgias Integumentary Denies rash Neurologic Neurologic: Denies headache(s) Hematologic/Lymphatic Hematologic/Lymphatic: Denies easy bleeding or easy bruising EXAM Physical Exam Const Vital Signs: 05/29/25 23:10 05/29/25 23:12 05/29/25 23:32 Temperature 98.4 F Temperature Source Oral Pulse Rate 124 H Respiratory Rate 18 Respiratory Effort Short of Breath Respiratory Pattern Normal Blood Pressure 187/116 H 186/113 H Blood Pressure Mean 139 137 Blood Pressure Source Pulse Ox 99 Oxygen Delivery Method Room Air 05/30/25 00:36 05/30/25 01:10 05/30/25 01:15 Temperature 97.4 F L Temperature Source Oral Pulse Rate 123 H 122 H 123 H Respiratory Rate 16 14 18 Respiratory Effort Respiratory Pattern Blood Pressure 168/109 H 161/105 H 161/105 H Blood Pressure Mean 128 123 123 Blood Pressure Source Monitor Monitor Pulse Ox 97 96 100 Oxygen Delivery Method Room Air Room Air Room Air 05/30/25 01:53 Temperature Temperature Source Pulse Rate 123 H Respiratory Rate 17 Respiratory Effort Respiratory Pattern Blood Pressure 137/90 H Blood Pressure Mean 105 Blood Pressure Source Monitor Pulse Ox 98 Oxygen Delivery Method Room Air Positive well nourished and well developed General Appearance ED: well developed; Negative for pallor HEENT HEENT Narrative: Normocephalic atraumatic Eyes PERRL and EOMs intact bilaterally General Eye ED: Negative for scleral icterus Neck supple and no JVD Neck Narrative: No nuchal rigidity or meningeal signs Resp normal respiratory effort and clear to auscultation bilaterally Resp Narrative: No nasal flaring retractions or accessory muscle use Cardio regular rhythm Rate: tachycardic and other Other Details: Tachycardic rate with regular rhythm Grade 4 out of 6 systolic murmur noted Radial and carotid pulses are equal and symmetric GI normal to inspection, nondistended, normoactive bowel sounds, non-tender, non- distended and no masses GI Narrative: No voluntary guarding or rigidity or pulsatile mass Auscultation: normoactive bowel sounds Palpation: soft Extremity normal to inspection Extremity Narrative: Negative Homans' sign bilaterally Neuro oriented x3, CN's II-XII intact bilaterally and no sensory deficits noted Sensorium / Orientation: alert Motor Exam: strength 5/5 throughout Psych mental status grossly normal Skin no rashes or lesions noted and no wounds General Skin Exam: Negative for jaundice or pallor MDM MDM MDM Narrative Medical decision making narrative: Patient arrived to the ER hypertensive and tachycardic. She has a past medical history of hypertension. With the persistent tachycardia for approximately 24 hours there is high likelihood for cardiacdysrhythmia. She is status post TAVRinsertion and therefore concern for a clot that is caused a PE is low and I do not feel the need for a CTA. Based on the cardiac dysrhythmia there is concern that she may have thyroid dysfunction PAULINE or clinically significant electrolyte abnormality. Blood work revealed no acute findings. The patient was placed on a Cardizem drip secondary to the EKG displayingatrial flutter. Despite being on the Cardizem drip there has been no resolution of the atrial flutter. As thepatient has been in the abnormal cardiac rhythm for 24 hours and she is still persistentlyin it despite the Cardizem I feel she needs admitted for continued medication as well as cardiologyconsultation. I contacted the hospitalist secondary to this who agrees to accept the patient for continued care. History & Record Review Discussion w/independent historian: Patient and Significant other Lab Data Attestation: I reviewed the patient's lab results. Labs: Laboratory Results - last 24 hr 05/30/25 00:20 WBC 9.1 RBC 4.25 Hgb 12.4 Hct 37.5 MCV 88.2 MCH 29.2 MCHC 33.1 RDW Std Deviation 47.8 H RDW Coeff of Mark 14.8 H Plt Count 223 MPV 11.4 Immature Gran % (Auto) 0.300 Neut % (Auto) 63.2 Lymph % (Auto) 24.9 [place] % (Auto) 8.3 Eos % (Auto) 2.9 Baso % (Auto) 0.4 Absolute Neuts (auto) 5.7 Absolute Lymphs (auto) 2.26 Nucleated RBC % 0 Sodium 138 Potassium 3.9 Chloride 103 Carbon Dioxide 23.9 Anion Gap 12 BUN 16 Creatinine 0.86 Estim Creat Clear Calc 81.19 Est GFR (MDRD) Non-Af 72 BUN/Creatinine Ratio 19.0 Glucose 105 H Calcium 9.4 Magnesium 2.0 TSH 3.020 Management Discussion w/another healthcare provider: Hospitalist Discharge Plan Dx/Rx/DC Orders Clinical Impression: HTN (hypertension), Aortic valve insufficiency, MADDY (obstructive sleep apnea), New onset atrial flutter Disposition Disposition: Acute Care [facility] Discharge Date/Time: 05/30/25 02:56 What to do if you have Problems For any increased pain, shortness of breath, bleeding, nausea or vomiting, chestpain, or any unexpected problems, contact your Primary Care Provider. Call [facility] ([phone]) or report tothe closest Emergency Room. Call 911 if necessary. 05/30/25 0421 Cosigner Signature (if applicable): CC: Dr. Kirill Newell MD ~ Signed [facility]07-01-2025 Radiology Diagnostic study note [facility] Imaging Services [address] [place] [address] CTA Chest W/WO Contrast MR#: [id number] Acct: [id number] Name: VICKIE GONZALEZ Rep #: [id number] : 1955 F 69 From: Arlette Moore MD PCP: Dr. Kirill Newell MD Status: ADM IN Study:CTA Chest W/WO Contrast Date of Exam: 05/30/25 Exam# [id number] Ordering Dr: Nicol Villa DO PROCEDURE: CTA CHEST W/WO CONTRAST 05/30/2025 REASON FOR EXAM: HISTORY OF FIBROSING MEDIASTINITIS. TECHNIQUE: CTA CHEST W/WO CONTRAST Multiplanar Sagittal and Coronal images were obtained. CONTRAST: Isovue 370 VOLUME: 93 mL One or more dose reduction techniques were used (e.g., Automated exposure control, adjustment of the mA and/or kV according to patient size, use of iterative reconstruction technique). RADIATION DOSE SUMMARY: CTDlvol: 45 mGy DLP: 594 mGycm COMPARISON: Chest x-ray 12/14/2023 FINDINGS: Unremarkable base of neck and axilla. Thoracic spine scoliosis and degeneration. Normal esophagus. Mildly enlarged heart. Status post AVR. Status post CABG. No aortic dissection. No pulmonary embolism. However, the proximal right pulmonary artery shows moderately severe narrowing, series 2 images 167/179, with surrounding soft tissue, which mayrepresent fibrosis and may be related to the prior ascending aortic repair. Central airways are patent. Small basilar atelectasis. No consolidation, effusion, or pneumothorax. No acute chest wall findings. No acute upper abdominal findings. 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 Progress imaging as clinically determined. Reading Location: [place] [address] CC: Dr. Nicol Silva DO; Dr. Kirill Newell MD ~ Senior Sharepoint Architect: Signed [facility]04-12-2024 History of Present illness Narrative* Sofía Flores, [employer] F[employer] EGG - 03/11/2024 10:45 AM EDT [facility] DAILY TREATMENT NOTE Today's [...] Arnav Notes visit 11: 10:45-11:28 Therapeutic Exercise (21235) Intervention SciFit Bike L4 x 6 mins [...] up and over 6 Intervention Possibly add jordanian split squats/ stool scoots/ standing hamstring curls [...] could benefit from more PT visits Flores Avila PTA STATE LICENSE, [id number] documented in this [id number] History of Present illness Narrative* Flores Avila PTA - 03/09/2024 10:45 AM EDT [facility] DAILY TREATMENT NOTE Today's [...] Arnav Notes Visit #10: 10:36-11:26 Therapeutic Exercise (37284) Intervention SciFit Bike L4 x 6 mins [...] up and over 6 Intervention Possibly add jordanian split squats/ stool scoots/ standing hamstring curls [...] Visit with focus on Flexion ROM Flores Avila PTA STATE LICENSE, [id number] documented in this [id number] History of Present illness Narrative* Flores Avila PTA - 03/07/2024 10:45 AM EDT [facility] DAILY TREATMENT NOTE Today's [...] Arnav Notes Visit #8: 10:45-11:30 Therapeutic Exercise (99562) Intervention SciFit Bike L4 x 6 mins [...] up and over 6 Intervention Possibly add jordanian split squats/ stool scoots/ standing hamstring curls [...] Treatment Visit with focus on flexion Flores Avila PTA STATE LICENSE, [id number] documented in this [id number] History of Present illness Narrative* Nadege Arce - 03/04/2024 10:45 AM EDT [facility] DAILY TREATMENT NOTE Today's [...] Arnav Notes Visit #8: 10:45-11:40 Therapeutic Exercise (88793) Intervention SciFit Bike L4 x 6 mins [...] up and over 6 Intervention Possibly add jordanian split squats/ stool scoots/ standing hamstring curls [...] with focus on continuing stretches and strengthening exercisesper log to improve ROM and increase strength in RLE. Session and note completed by SHIRA Celis [place] lic[place] found in [place] Treatment was directed and supervised by the co-signing therapist who was directly present for the entire session. Gabriel Tovar PTA State License [id number] documented in this [id number] History of Present illness Narrative* Batool Kamara - 03/02/2024 10:45 AM EDT [facility] DAILY TREATMENT NOTE Today's [...] Notes Visit #7: 10:46 11:24 Therapeutic Exercise (75885) Intervention SciFit Bike L4 x 6 mins [...] taps w/6 step x10 Intervention Possibly add jordanian split squats/ stool scoots/ standing hamstring curls [...] entire session. Dajuan Arroyo PT State License, [id number] documented in this [id number] History of Present illness Narrative* Gabriel Tovar PTA - 02/29/2024 10:45 AM EDT [facility] DAILY TREATMENT NOTE Today's [...] OTHER Precautions/Contraindications Supervising PT: Arnav Notes Visit: 6 1050 - 11:40 Therapeutic Exercise (86722) Intervention SciFit Bike L4 x 6 mins [...] and ROM Gabriel Tovar PTA STATE LICENSE, [id number] documented in this [id number] History of Present illness Narrative* Sherlyn Villavicencio PTA - 02/26/2024 10:45 AM EDT [facility] DAILY TREATMENT NOTE Today's [...] Precautions/Contraindications Supervising PT: Arnav Notes Visit: 5 0241-4514 Therapeutic Exercise (51016) Intervention SciFit Bike L4 x 6 mins [...] as tolerated Sherlyn Villavicencio PTA STATE LICENSE, [id number] documented in this [id number] History of Present illness Narrative* Yazmin Nadege - 02/24/2024 10:45 AM EDT [facility] DAILY TREATMENT NOTE Today's [...] Arnav Notes Visit: 4 10:45-11:11:43 Therapeutic Exercise (71364) Intervention SciFit Bike L4 x 5 mins [...] SHIRA Celis [place] Treatment was directed and supervised by the co-signing therapist who was directly present for the entire session. Gabriel Tovar PTA State License [id number] documented in this [id number] History of Present illness Narrative* Batool Kamara - 02/22/2024 10:45 AM EDT [facility] DAILY TREATMENT NOTE Today's [...] Visit: 3 10:40 - 11:15 Therapeutic Exercise (64672) Intervention SciFit Bike L4 x 5 mins [...] Kamara, SPT [place] Treatment was directed and supervised by the co-signing therapist who was directly present for the entire session. Dajuan Arroyo PT State License, [id number] documented in this [id number] History of Present illness Narrative* Gabriel Tovar, [employer] - 02/19/2024 10:45 AM EDT [facility] DAILY TREATMENT NOTE Today's [...] Visit: 2 10:48 - 11:46 Therapeutic Exercise (80071) Intervention SciFit Bike L4 x 5 mins [...] strengthening progression Gabriel Tovar PTA STATE LICENSE, [id number] documented in this [id number] History of Present illness Narrative* Nadege Arce - 02/17/2024 10:45 AM EDT [facility] DAILY TREATMENT NOTE Today's [...] Arnav Notes Visit: 1 10:50- Therapeutic Exercise (90008) Intervention HEP was reviewed w/ patient and [...] SHIRA Celis [place] Treatment was directed and supervised by the co-signing therapist who was directly present for the entire session. Gabriel Tovar PTA [id number] documented in this [id number] History of Present illness Narrative* Batool Kamara - 02/15/2024 10:45 AM EDT [facility] Evaluation Today's Date 02/15/2024 [...] the ability to ambulate better. Social Support: Lutheran, social, or cultural considerations to be made aware of before starting treatment: No Home Environment Current Home Environment: Setup: single story house Entry: steps with railing Red Flags: None Comments: Barriers to Care: None Fall risk screening Fallen 2 or more times in the last 12 months: No Injured as a result of a fall in the last 12 months: No Lutheran, social, or cultural considerations to be made [...] Notes Eval: 10:51 - 11:17 Therapeutic Exercise (15308) Intervention HEP was reviewed w/ patient and [...] with HEP in 2 weeks. CPT Code 45444 Low 71635 Moderate 68745 High History 0 1-2 3+ Comorbidities: asthma, [...] week Duration: 6 weeks Interventions: Therapeutic Exercise (87577), Neuromuscular Re-Education (39436), Manual Therapy (13831), Therapeutic/ Functional Activities (50703), Gait Training (51230), Aquatic Therapy (50454), Hot/Cold Pack (55508), Electrical Stimulation - Medicare, Unattended (G0283), Ultrasound (17013), and V asopneumatic (66392) Rehab Potential: good Patient Education Provided Pt [...] entire session. Dajuan Arroyo PT State License, [id number] documented in this [id number] Patient's home Progress note* Narratives Pt reports she is doing well and ready for dc. Is using a SPC around the house. Sees this afternoon for followup and staple removal. documented in this encounter [id number] Telephone encounter Note* Telephone Encounter - Treva Obregon LPN - 02/08/2024 12:09 PM EDT Patient requested refill for pain medication. Surgery 01/26 right TKR, last fill 01/26. [id number] Miscellaneous Notes* Telephone Encounter - Treva Obregon LPN - 02/08/2024 12:09 PM EDT Patient requested refill for pain medication. Surgery 01/26 right TKR, last fill 01/26. documented in this [id number] History of Present illness Narrative* Yen Carlson, NIGEL - 02/01/2024 10:45 AM EST I spoke [...] to call the office. documented in this [id number] History of Present illness Narrative* Yen Carlson LPN - 01/11/2024 2:11 PM EST Amber's nasal swab was positive for MSSA w her preop testing. She will start Doxycyline 100mg bid x 7days and Mupirocin 2% ointment to both nostrils bid x 7 days. I did speak w Amber. documented in this [id number] Patient's home Progress note* Actions Routine visit [...] no longer homebound documented in this encounter [id number] Patient's home Progress note* Actions Routine visit [...] no longer homebound documented in this encounter [id number] Evaluation + Plan note* Assessment & Plan Note - Blaine Silveira MD - 10/20/2023 1:56 PM ESTAssociated Problem(s): Severe aortic insufficiency Doing well from Tavr standpoint Should be low cardiac for surgery from coronary and Valve Would suggest a pre op Pulmonary consult just to be sure from her fibrosing mediastinitis history Also would continue asa through surgery [id number] History of Present illness Narrative* Blaine Silveira MD - 10/20/2023 1:56 PM EST Patient Name: Vickie Gonzalez [facility] MR #: [id number] General Cardiology Blaine Silveira MD, [facility] 10/20/23 Dear Nicol Ibanez MD, Vickie Gonzalez was seen in follow up for : Problem Coronary Artery Disease Involving [place] Coronary Artery of [place] Heart Without Angina Pectoris CABG 2000 Cath 2010 all grafts open 12/2021- Pat Dye/Missy Severe Aortic Insufficiency EVOLUT 34mm via R LEADITE WORKER. 01/21/222022 2 D cardiac echocardiogram looked good [...] 1 (one) tablet by mouth daily . GAANJSE-IOWOEVITK-PBJK ORAL Take 1 tablet by mouth daily [...] No medications on file documented in this [id number] Miscellaneous Notes* Assessment & Plan Note - Blaine Silveira MD - 10/20/2023 1:56 PM ESTAssociated Problem(s): Severe aortic insufficiency Doing well from Tavr standpoint Should be low cardiac for surgery from coronary and Valve Would suggest a pre op Pulmonary consult just to be sure from her fibrosing mediastinitis history Also would continue asa through surgery documented in this [id number] Progress note Author Lindsey Walsh [facility] July 16, 2023 12:13pm Note Date/Time July 16, 2023 12 :05pm [facility] [address] [place] [address] Progress Note - Wound Care 07/16/23 1200 MR#: [id number] Acct: [id number] Name: VICKIE GONZALEZ Rep #:[id number] : [...] locally at the wound care center at [facility]. She states following a few days after [...] Date Recorded By Document 07/16/23 09:42 KW [id number] 07/16/23 09:51 KW 07/16/23 09:42 - Today's Visit Information Type of service Follow-up Visit (Physician/RN NEW GRAD ) Arrival Mode Ambulatory Patient Identification Verified [...] Recorded Date Recorded By Document 07/16/23 09:42 [id number] 07/16/23 09:51 07/16/23 09:42 Wound Center Nurse [...] Date Recorded By Document 07/16/23 10:05 ARNOLDO [id number] 07/16/23 10:06 ARNOLDO 07/16/23 10:05 Wound Care Center Nurse 3 [...] No signs of infection. Pain: May take pjfy-ndh-oisaynx Tylenol as needed for discomfort. Host factors: Basal cell carcinoma left lower extremity, edema. ? At this time with all wounds healed she is discharged from the wound care center. She has follow-up appointment with staple laster next week. I answered all the patient's questions.? To return to the wound healing center as needed or call sooner if the patient has any questions or concerns. 07/16/23 1213 <Electronically signed by Lindsey Walsh DPM> Cosigner Signature (if applicable): CC: ~ Signed [facility] Work Phone: 1(416) 124-556107-27-2023 Progress note Author Lindsey Walsh [facility] June 25, 2023 11:36am Note Date/Time June 25, 2023 10:1 2am [facility] [address] [place] [address] Progress Note - Wound Care 06/25/23 1012 MR#: [id number] Acct: [id number] Name: VICKIE GONZALEZ Rep #:[id number] : [...] locally at the wound care center at [facility]. She states following a few days after [...] Date Recorded By Document 06/04/23 10:15 AK [id number] 06/04/23 10:17 MS Document 06/18/23 10:58 [id number] 06/18/23 11:01 Document 06/25/23 09:48 DL [id number] 06/25/23 09:56 DL 06/04/23 06/18/23 06/25/23 10:15 10:58 09:48 - Today's Visit Information Type of service Follow-up Visit Follow-up Visit Follow-up Visit (Physician/RN NEW GRAD (Physician/RN NEW GRAD (Physician/RN NEW GRAD ) ) ) Arrival Mode Ambulatory Ambulatory [...] Date Recorded By Document 06/04/23 10:15 AK [id number] 06/04/23 10:17 AK Document 06/18/23 10:58 [id number] 06/18/23 11:01 Document 06/25/23 09:48 DL [id number] 06/25/23 09:56 DL 06/04/23 06/18/23 06/25/23 10:15 [...] None Present (0 %) %) -Granulation Quality [place] N/A -Slough/Fibrin Yes No -Necrosis Amt Medium [...] Recorded Date Recorded By Document 06/04/23 12:01 [id number] 06/04/23 12:02 PL Document 06/18/23 12:17 [id number] 06/18/23 12:19 PL 06/04/23 06/18/23 12:01 12:17 [...] -Expiration Date 02/29/28 03/30/28 -Product Lot Number [id number] -Percent Used 100 100 -Bleeding Controlled with Pressure Pressure -Treatment Response Procedure Procedure Tolerated Well Tolerated Well -Debridement - Subq, 1st 20sq cm No No -Apply Skin Sub - 1st 25 sq cm - Legs 1 1 -Epifix 18mm Disc 3 3 Pain Scale: 0-10 Numeric Is Patient Pain Free? Yes Yes WC - Nurse 3 - General Ulcer D/C NN Start: 06/04/23 10:15 Freq: Status: Active Protocol: Activity Type Activity Date Activity User E-sign Co-sign Detail Recorded Client Recorded Date Recorded By Document 06/04/23 10:49 [id number] 06/04/23 10:49 Document 06/18/23 10:58 [id number] 06/18/23 11:01 06/04/23 06/18/23 10:49 10:58 Wound [...] No signs of infection. Pain: May take aipn-gsq-orsffwy Tylenol as needed for discomfort. Host factors: Basal cell carcinoma left lower extremity, edema. ? I answered all the patient's questions.? To return to the wound healing center in 3 weeks or call sooner if the patient has any questions or concerns. 06/25/23 1136 <Electronically signed by Lindsey Walsh DPM> Cosigner Signature (if applicable): CC: ~ Signed [facility] Work Phone: 1(216) 575-780907-20-2023 Progress note Author Lnidsey Walsh [facility] June 18, 2023 5:46pm Note Date/Time June 18, 2023 9:48 am [facility] [address] [place] [address] Progress Note - Wound Care 06/18/23 0947 MR#: [id number] Acct: [id number] Name: ROSETTEVICKIE CULP Meseret Rep #:[id number] 07 : 1955 67 From: [...] locally at the wound care center at [facility]. She states following a few days after [...] Recorded Date Recorded By Document 06/04/23 10:15 MS [id number] 06/04/23 10:17 DONNIE 06/04/23 10:15 - Today's Visit Information Type of service Follow-up Visit (Physician/RN NEW GRAD ) Arrival Mode Ambulatory Patient Identification Verified [...] Date Recorded By Document 06/04/23 10:15 AK [id number] 06/04/23 10:17 AK 06/04/23 10:15 Wound Center [...] Attached -Granulation Amt Medium (34-66%) -Granulation Quality [place] -Slough/Fibrin Yes -Necrosis Amt Medium (34-66%) -Necrotic [...] Recorded Date Recorded By Document 06/04/23 12:01 [id number] 06/04/23 12:02 PL 06/04/23 12:01 Wound Center [...] Disc -Expiration Date 02/29/28 -Product Lot Number [id number] -Percent Used 100 -Bleeding Controlled with [...] Recorded Date Recorded By Document 06/04/23 10:49 [id number] 06/04/23 10:49 06/04/23 10:49 Wound Care Center Nurse 3 [...] No signs of infection. Pain: May take gqxw-wqi-yxzhlzv Tylenol as needed for discomfort. Host factors: Basal cell carcinoma left lower extremity, edema. ? I answered all the patient's questions.? To return to the wound healing center in 1 week or call sooner if the patient has any questions or concerns. 06/18/23 1746 <Electronically signed by Lindsey Walsh DPM> Cosigner Signature (if applicable): CC: ~ Signed [facility] Work Phone: 1(823) 858-465207-06-2023 Progress note Author Lindsey Walsh [facility] June 04, 2023 1:00pm Note Date/Time June 04, 2023 1:00p [facility] [address] [place] [address] Progress Note - Wound Care 06/04/23 1255 MR#: [id number] Acct: [id number] Name: VICKIE GONZALEZ Rep #:[id number] : [...] locally at the wound care center at [facility]. She states following a few days after [...] Date Recorded By Document 06/04/23 10:15 DONNIE [id number] 06/04/23 10:17 DONNIE 06/04/23 10:15 - Today's Visit Information Type of service Follow-up Visit (Physician/RN NEW GRAD ) Arrival Mode Ambulatory Patient Identification Verified [...] Date Recorded By Document 06/04/23 10:15 DONNIE [id number] 06/04/23 10:17 DONNIE 06/04/23 10:15 Wound Center [...] Attached -Granulation Amt Medium (34-66%) -Granulation Quality [place] -Slough/Fibrin Yes -Necrosis Amt Medium (34-66%) -Necrotic Tissue Type Adherent Slough -Structure Exposed N/A -Texture ([place]-wound Skin Appearance) No Abnormality, Assessed -Moisture ([place]-wound [...] Date Recorded By Document 06/04/23 12:01 PL [id number] 06/04/23 12:02 PL 06/04/23 12:01 Wound Center [...] Disc -Expiration Date 02/29/28 -Product Lot Number [id number] -Percent Used 100 -Bleeding Controlled with [...] Recorded Date Recorded By Document 06/04/23 10:49 [id number] 06/04/23 10:49 06/04/23 10:49 Wound Care Center Nurse 3 [...] No signs of infection. Pain: May take jgrd-ref-bkxxeoy Tylenol as needed for discomfort. Host factors: Basal cell carcinoma left lower extremity, edema. ? I answered all the patient's questions.? To return to the wound healing center in 2 weeks or call sooner if the patient has any questions or concerns. 06/04/23 1300 <Electronically signed by Lindsey Walsh DPM> Cosigner Signature (if applicable): CC: ~ Signed [facility] Work Phone: [phone]) 129-381906-29-2023 Progress note Author Lindsey Walsh [facility] [facility] May 28, 2023 10:20am Note Date/Time May 28, 2023 9:53 am [facility] [address] [place] [id number] Progress Note - Wound Care 05/28/23 0952 MR#: [id number] Acct: [id number] Name: VICKIE GONZALEZ Rep #:[id number] : [...] locally at the wound care center at [facility]. She states following a few days after [...] Date Recorded By Document 04/30/23 09:24 JANIE [id number] 04/30/23 09:40 JF Document 05/07/23 09:26 AK [id number] 05/07/23 09:28 AK Document 05/14/23 09:34 KW [id number] 05/14/23 09:46 KW Document 05/21/23 11:54 AK [id number] 05/21/23 11:56 AK 04/30/23 05/07/23 05/14/23 09:24 09:26 09:34 WC - Today's Visit Information Type of service Follow-up Visit Follow-up Visit Follow-up Visit (Physician/RN NEW GRAD (Physician/RN NEW GRAD (Physician/RN NEW GRAD ) ) ) Arrival Mode Ambulatory Ambulatory [...] Visit Information Type of service Follow-up Visit (Physician/RN NEW GRAD ) Arrival Mode Ambulatory Patient Identification Verified [...] Recorded Date Recorded By Document 04/30/23 09:24 [id number] 04/30/23 09:40 Document 05/07/23 09:26 AK [id number] 05/07/23 09:28 AK Document 05/14/23 09:34 KW [id number] 05/14/23 09:46 KW Document 05/21/23 11:54 AK [id number] 05/21/23 11:56 AK 04/30/23 05/07/23 05/14/23 09:24 [...] Medium (34-66%) Medium (34-66%) -Granulation Quality [place] -Slough/Fibrin Yes Yes -Necrosis Amt Small (1-33%) [...] Attached -Granulation Amt Medium (34-66%) -Granulation Quality [place] -Slough/Fibrin Yes -Necrosis Amt Medium (34-66%) -Necrotic [...] Recorded Client Recorded Date Recorded By Document 06/01/23 12:15 PL [id number] 04/30/23 12:17 PL Document 05/07/23 12:36 PL [id number] 05/07/23 12:38 PL Document 05/14/23 12:06 PL [id number] 05/14/23 12:08 PL Edit Result 05/14/23 12:06 PL (1) [id number] 05/15/23 12:47 PL Document 05/21/23 12:16 PL [id number] 05/21/23 12:17 PL (1) #1 L medial [...] Date 01/29/28 01/29/28 02/29/28 -Product Lot Number [id number] 002 -Percent Used 100 100 [...] Disc -Expiration Date 02/29/28 -Product Lot Number [id number] -Percent Used 100 -Bleeding Controlled with [...] Date Recorded By Document 04/30/23 09:59 AK [id number] 04/30/23 10:00 AK Undo 04/30/23 09:59 AK Adjusting Time [id number] 04/30/23 10:01 AK Document 05/07/23 10:09 AK [id number] 05/07/23 10:10 AK Document 05/14/23 12:06 PL [id number] 05/14/23 12:08 PL Document 05/21/23 10:33 KW [id number] 05/21/23 10:44 KW 05/07/23 05/14/23 05/21/23 10:09 [...] cell carcinoma on 02/04/[address] Lisa Pryro MD. cancerous lesion measured 1.5 cm x [...] No signs of infection. Pain: May take baye-vsk-dfnrfwo Tylenol as needed for discomfort. Host factors: Basal cell carcinoma left lower extremity, edema. ? I answered all the patient's questions.? To return to the wound healing center in 1 week or call sooner if the patient has any questions or concerns. 05/28/23 1020 <Electronically signed by Lindsey Walsh DPM> Cosigner Signature (if applicable): CC: ~ Signed [facility] Work Phone: 1(209) 198-511206-22-2023 Progress note Author Lindsey Walsh [facility] May 21, 2023 12:31pm Note Date/Time May 21, 2023 9:57 am [facility] [address] [place] [address] Progress Note - Wound Care 05/21/23 0957 MR#: [id number] Acct: [id number] Name: VICKIE GONZALEZ Rep #:[id number] : [...] locally at the wound care center at [facility]. She states following a few days after [...] Date Recorded By Document 04/30/23 09:24 JF [id number] 04/30/23 09:40 JF Document 05/07/23 09:26 AK [id number] 05/07/23 09:28 AK Document 05/14/23 09:34 KW [id number] 05/14/23 09:46 KW 04/30/23 05/07/23 05/14/23 09:24 09:26 09:34 - Today's Visit Information Type of service Follow-up Visit Follow-up Visit Follow-up Visit (Physician/RN NEW GRAD (Physician/RN NEW GRAD (Physician/RN NEW GRAD ) ) ) Arrival Mode Ambulatory Ambulatory [...] Date Recorded By Document 04/30/23 09:24 JF [id number] 04/30/23 09:40 JF Document 05/07/23 09:26 AK [id number] 05/07/23 09:28 AK Document 05/14/23 09:34 KW [id number] 05/14/23 09:46 KW 04/30/23 05/07/23 05/14/23 09:24 [...] Medium (34-66%) Medium (34-66%) -Granulation Quality [place] -Slough/Fibrin Yes Yes -Necrosis Amt Small (1-33%) [...] Date Recorded By Document 04/30/23 12:15 PL [id number] 04/30/23 12:17 PL Document 05/07/23 12:36 PL [id number] 05/07/23 12:38 PL Document 05/14/23 12:06 PL [id number] 05/14/23 12:08 PL Edit Result 05/14/23 12:06 PL (1) [id number] 05/15/23 12:47 PL (1) #1 L medial [...] Date 01/29/28 01/29/28 02/29/28 -Product Lot Number [id number] 002 -Percent Used 100 100 [...] Date Recorded By Document 04/30/23 09:59 AK [id number] 04/30/23 10:00 AK Undo 04/30/23 09:59 AK Adjusting Time [id number] 04/30/23 10:01 AK Document 05/07/23 10:09 AK [id number] 05/07/23 10:10 AK Document 05/14/23 12:06 PL [id number] 05/14/23 12:08 PL 05/07/23 05/14/23 10:09 12:06 [...] No signs of infection. Pain: May take wpde-xix-cssbtfw Tylenol as needed for discomfort. Host factors: Basal cell carcinoma left lower extremity, edema. ? I answered all the patient's questions.? To return to the wound healing center in 1 week or call sooner if the patient has any questions or concerns. 05/21/23 1231 <Electronically signed by Lindsey Walsh DPM> Cosigner Signature (if applicable): CC: ~ Signed [facility] Work Phone: [phone]) 598-271406-15-2023 Progress note Author Lindsey Walsh [facility] May 14, 2023 10:27am Note Date/Time May 14, 2023 9:43 am [facility] [address] [place] [address] Progress Note - Wound Care 05/14/23 0942 MR#: [id number] Acct: [id number] Name: VICKIE GONZALEZ Rep #:[id number] : [...] locally at the wound care center at [facility]. She states following a few days after [...] Date Recorded By Document 04/30/23 09:24 JANIE [id number] 04/30/23 09:40 JANIE Document 05/07/23 09:26 DONNIE [id number] 05/07/23 09:28 DONNIE 04/30/23 05/07/23 09:24 09:26 - Today's Visit Information Type of service Follow-up Visit Follow-up Visit (Physician/RN NEW GRAD (Physician/RN NEW GRAD ) ) Arrival Mode Ambulatory Ambulatory Patient [...] Recorded Date Recorded By Document 04/30/23 09:24 [id number] 04/30/23 09:40 Document 05/07/23 09:26 AK [id number] 05/07/23 09:28 AK 04/30/23 05/07/23 09:24 09:26 [...] Medium (34-66%) Medium (34-66%) -Granulation Quality [place] -Slough/Fibrin Yes Yes -Necrosis Amt Small (1-33%) [...] Date Recorded By Document 04/30/23 12:15 PL [id number] 04/30/23 12:17 PL Document 05/07/23 12:36 [id number] 05/07/23 12:38 PL 04/30/23 05/07/23 12:15 12:36 [...] -Expiration Date 01/29/28 01/29/28 -Product Lot Number [id number] -Percent Used 100 100 -Bleeding [...] Date Recorded By Document 04/30/23 09:59 AK [id number] 04/30/23 10:00 AK Undo 04/30/23 09:59 AK Adjusting Time [id number] 04/30/23 10:01 AK Document 05/07/23 10:09 AK [id number] 05/07/23 10:10 AK 05/07/23 10:09 Wound Care [...] No signs of infection. Pain: May take fzty-ajd-neegpga Tylenol as needed for discomfort. Host factors: Basal cell carcinoma left lower extremity, edema. ? I answered all the patient's questions.? To return to the wound healing center in 1 week or call sooner if the patient has any questions or concerns. 05/14/23 1027 <Electronically signed by Lindsey Walsh DPM> Cosigner Signature (if applicable): CC: ~ Signed [facility] Work Phone: [phone]) 557-386606-08-2023 Progress note Author Lindsey Walsh [facility] May 07, 2023 9:42am Note Date/Time May 07, 2023 9:14a m [facility] [address] [place] [address] Progress Note - Wound Care 05/07/23912 MR#: [id number] Acct: [id number] Name: VICKIE GONZALEZ Rep #:[id number] : [...] locally at the wound care center at [facility]. She states following a few days after [...] Recorded Date Recorded By Document 04/30/23 09:24 [id number] 04/30/23 09:40 04/30/23 09:24 - Today's Visit Information Type of service Follow-up Visit (Physician/RN NEW GRAD ) Arrival Mode Ambulatory Patient Identification Verified [...] Numeric Is Patient Pain Free? Yes SAKSHI - Nurse 1 - General Ulcer Measurement Start: 04/30/23 09:24 Freq: Status: Active Protocol: Activity Type Activity Date Activity User E-sign Co-sign Detail Recorded Client Recorded Date Recorded By Document 04/30/23 09:24 [id number] 04/30/23 09:40 JANIE 04/30/23 09:24 Wound Center [...] Calf (cm) 37.6 Left Ankle (cm) 21.1 SAKSHI - Nurse 2 - General Ulcer CM Notes Start: 04/30/23 09:24 Freq: Status: Active Protocol: Activity Type Activity Date Activity User E-sign Co-sign Detail Recorded Client Recorded Date Recorded By Document 04/30/23 12:15 PL [id number] 04/30/23 12:17 PL 04/30/23 12:15 Wound Center [...] Disc -Expiration Date 01/29/28 -Product Lot Number [id number] -Percent Used 100 -Bleeding Controlled with [...] Date Recorded By Document 04/30/23 09:59 AK [id number] 04/30/23 10:00 AK Undo 04/30/23 09:59 AK Adjusting Time [id number] 04/30/23 10:01 AK Assessment/Plan Assessment/Plan (1) Non-pressure [...] No signs of infection. Pain: May take bdbe-toq-jvnyeim Tylenol as needed for discomfort. Host factors: Basal cell carcinoma left lower extremity, edema. ? I answered all the patient's questions.? To return to the wound healing center in 1 week or call sooner if the patient has any questions or concerns. 05/07/2342 <Electronically signed by Lindsey Walsh DPM> Cosigner Signature (if applicable): CC: ~ Signed [facility] Work Phone: [phone]) 847-221206-01-2023 Progress note Author Lindsey Walsh [facility] April 30, 2023 12:52pm Note Date/Time April 30, 2023 9:50a m [facility] [address] [place] [address] Progress Note - Wound Care 04/30/23 0946 MR#: [id number] Acct: [id number] Name: PARAGVICKIE CLEMONS Meseret Rep #:[id number] : 1955 67 From: Lindsey sykes DPM PCP: Dr. Nicol Ibanez MD Status:[facility] Location: History of Present Illness Date [...] locally at the wound care center at [facility]. She states following a few days after [...] Recorded Date Recorded By Document 04/30/23 09:24 [id number] 04/30/23 09:40 04/30/23 09:24 - Today's Visit Information Type of service Follow-up Visit (Physician/RN NEW GRAD ) Arrival Mode Ambulatory Patient Identification Verified [...] Date Recorded By Document 04/30/23 09:24 JANIE [id number] 04/30/23 09:40 JANIE 04/30/23 09:24 Wound Center [...] No signs of infection. Pain: May take webx-tmr-bptyzwk Tylenol as needed for discomfort. Host factors: Basal cell carcinoma left lower extremity, edema. ? I answered all the patient's questions.? To return to the wound healing center in 1 week or call sooner if the patient has any questions or concerns. 04/30/23 1252 <Electronically signed by Lindsey Walsh DPM> Cosigner Signature (if applicable): CC: ~ Signed [facility] Work Phone: [phone]) 853-874905-25-2023 Progress note Author Lindsey Nico [facility] April 23, 2023 10:15am Note Date/Time April 23, 2023 9:34a m [facility] [address] [place] [address] Progress Note - Wound Care 04/23/23 0933 MR#: [id number] Acct: [id number] Name: PARAGVICKIE CLEMONS Rep #:[id number] : 1955 67 From: [...] locally at the wound care center at [facility]. She states following a few days after [...] Start: 04/16/23 08:55 Freq: Status: Active Protocol: SAKSHI.[email or web address] Activity Type Activity Date Activity User E-sign Co-sign Detail Recorded Client Recorded Date Recorded By Document 04/16/23 08:58 AK [id number] 04/16/23 09:14 AK Document 04/23/23 09:23 JANIE [id number] 04/23/23 09:27 JANIE 04/16/23 04/23/23 08:58 09:23 - Today's Visit Information Type of service Initial Visit Follow-up Visit (Physician/RN NEW GRAD ) Arrival Mode Ambulatory Ambulatory Patient Identification [...] Date Recorded By Document 04/16/23 08:58 AK [id number] 04/16/23 09:14 AK Document 04/23/23 09:23 JANIE [id number] 04/23/23 09:27 JF 04/16/23 04/23/23 08:58 09:23 [...] Amt Small (1-33%) Small (1-33%) -Granulation Quality [place] Pale -Slough/Fibrin Yes Yes -Necrosis Amt Large [...] Date Recorded By Document 04/16/23 10:10 PL [id number] 04/16/23 10:11 PL 04/16/23 10:10 Wound Center [...] Date Recorded By Document 04/16/23 10:02 DL [id number] 04/16/23 10:04 DL 04/16/23 10:02 Wound Care [...] No signs of infection. Pain: May take oepg-cfh-lxtyqax Tylenol as needed for discomfort. Host factors: Basal cell carcinoma left lower extremity, edema. I answered all the patient's questions. To return to the wound healing center in 1 week or call sooner if the patient has any questions or concerns. 04/23/23 1015 <Electronically signed by Lindsey Walsh DPM> Cosigner Signature (if applicable): CC: ~ Signed [facility] Work Phone: 1(399) 644-322105-18-2023 History and physical note Author Lindsey [facility] April 16, 2023 12:36pm Note Date/Time April 16, 2023 9:19a m [facility] [address] [place] [address] H&P Exam - Wound Care 04/16/23 0919 MR#: [id number] Acct: [id number] Name: VICKIE GONZALEZ Rep #:[id number] : [...] locally at the wound care center at [facility]. She states following a few days after the procedure she was on the treadmill and did have some swelling of the lower extremity site to which she feels may have worsened the wound. States she will continue to follow with dermatology for continued monitoring/follow-up. She currently denies any N/V/F/chills. Denies further complaints. [facility] Medical History (Updated 04/16/23 @ [...] Recorded Date Recorded By Document 04/16/23 08:58 MS [id number] 04/16/23 09:14 DONNIE 04/16/23 08:58 - Today's [...] Recorded Date Recorded By Document 04/16/23 08:58 MS [id number] 04/16/23 09:14 MS 04/16/23 08:58 Wound Center Nurse 1 #1 [...] Attached -Granulation Amt Small (1-33%) -Granulation Quality [place] -Slough/Fibrin Yes -Necrosis Amt Large (67-100%) -Necrotic [...] No signs of infection. Pain: May take huym-jnb-aixwlxu Tylenol as needed for discomfort. Host factors: Basal cell carcinoma left lower extremity, edema. I answered all the patient's questions. To return to the wound healing center in 1 week or call sooner if the patient has any questions or concerns. 04/16/23 1236 <Electronically signed by Lindsey Walsh DPM> Cosigner Signature (if applicable): CC: ~ Signed [facility] Work Phone: 1(286) 721-948202-22-2023 History of Present illness Narrative* Angelica Randall, RN NEW GRAD - 01/21/2023 2:30 PM EST [facility] 1 year TAVR follow up Patient Name: Vickie Gonzalez Admit Date: MR #: [id number] : 1955 Physicians: Nicol Ibanez MD (Family) [...] es, she will be discharged from the [facility]. 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 Hypertension, hypertensive today in the office but home readings are significantly lower ranging between 120-140 systolic. Have asked her to track BP three times a week over the next 2 weeks and notify [facility] if systolic greater than 150 [...] TR and RVSP 46mmHg. Last cardiac catheterization uk1963 showed patent DYE and MISSY with 100% [...] Valve Replacement; Surgeon: Lindsey Plummer MD; Location: [facility] OR; Service: Cardiovascular CARDIAC CATHETERIZATION N/A 01/21/2022 Procedure: Angiogram - Aortic Root; Surgeon: Lindsey Plummer MD; Location: [facility]; Service: Cardiovascular CARDIAC CATHETERIZATION N/A 01/21/2022 Procedure: Temporary Pacemaker; Surgeon: Lindsey Plummer MD; Location: [facility]; Service: Cardiovascular CARDIAC CATHETERIZATION N/A 01/21/2022 Procedure: Valvuloplasty - Aortic Valve; Surgeon: Lindsey Plummer MD; Location: [facility]; Service: Cardiovascular HC LEFT HEART CATH N/A 01/15/2022 Procedure: LEFT HEART CATH; Surgeon: Silvio Mckeon MD; Location: [facility]; Service: Cardiovascular TAVR FEMORAL APPROACH N/A 01/21/2022 Procedure: TRANSCATHETER AORTIC VALVE REPLACEMENT FEMORAL APPROACH; Surgeon: Meir Arthur MD; Location: [facility]; Service: Cardiothoracic TOTAL KNEE ARTHROPLASTY [...] by mouth daily . Yes Historical Provider, XZCYEAG-HFKZJKNIH-TSVS ORAL Take 1 tablet by mouth daily [...] Component Value Date HGBA1C 6.1 (H) 01/09/2022 @[place] [address]@ Echocardiogram complete Result Date: 01/21/2023 Patient Info Name: VICKIE GONZALEZ Age: 67 years : 1955 Gender: Female Ht: 167 cm Wt: 105 kg BSA: 2.26 m2 HR: 1 bpm BP: 157 / 89 mmHg Technical Quality: Fair Exam Date: 01/21/2023 9:06 AM Patient Status: Outpatient Commercial Intern: Shirin Rabago, MILLER, RDCS (PE, AE) Exam Type: ECHOCARDIOGRAM COMPLETE Study Info Indications - Valve disease/murmur Attending Physician: ANGELICA RANDALL Referring Physician: [id number]; [id number] BMI: 37.73 kg/m2 Summary 1. Left ventricular [...] LVOT VTI/AV VTI Ratio 0.4 LVOT Stroke Kwyvpg38 ml LVOT Stroke Index 23.93 ml/m2 Pulmonic Valve Name Value Normal PV Regurgitation Doppler [place] Peak End Diastolic Velocity 128 cm/s [...] VTI) 1.4 cm2 AV Area (Cont Eq Jessica) 1.4 cm2 LVOT Vmax/AV Vmax 0.45 LVOT [...] on 01/21/2023 10:15 AM documented in this [id number] Note* Addendum Note - Terrie Oh RN - 01/19/2023 6:49 AM ESTAddended by: TERRIE [place] on: 01/19/2023 06:49 AM Modules accepted: Orders [id number] Miscellaneous Notes* Addendum Note - Terrie Oh RN - 01/19/2023 6:49 AM ESTAddended by: TERRIE [place] on: 01/19/2023 06:49 AM Modules accepted: Orders documented in this [id number] History of Present illness Narrative* Angelica Randall CNP - 02/19/2022 11:24 AM EDT [facility] 30 DAY TAVR FOLLOW UP Patient Name: Vickie Gonzalez Admit Date: MR #: [id number] : 1955 Physicians: Nicol Ibanez MD (Family) [...] Laterality Date CABG 02/11/2001 x3 CARDIAC CATHETERIZATION 2011 CARDIAC CATHETERIZATION Left 02/10/2001 EF 60% CARDIAC CATHETERIZATION Bilateral 08/26/2011 EF 55% CARDIAC CATHETERIZATION N/A 01/21/2022 Procedure: Transcatheter Aortic Valve Replacement; Surgeon: Lindsey Plummer MD; Location: [facility]; Service: Cardiovascular CARDIAC CATHETERIZATION N/A 01/21/2022 Procedure: Angiogram - Aortic Root; Surgeon: Lindsey Plummer MD; Location: [facility]; Service: Cardiovascular CARDIAC CATHETERIZATION N/A 01/21/2022 Procedure: Temporary Pacemaker; Surgeon: Lindsey Plummer MD; Location: [facility]; Service: Cardiovascular CARDIAC CATHETERIZATION N/A 01/21/2022 Procedure: Valvuloplasty - Aortic Valve; Surgeon: Lindsey Plummer MD; Location: [facility]; Service: Cardiovascular HC LEFT HEART CATH N/A 01/15/2022 Procedure: LEFT HEART CATH; Surgeon: Silvio Mckeon MD; Location: [facility] INFORMATION SCIENTIST; Service: Cardiovascular TAVR FEMORAL APPROACH N/A 01/21/2022 Procedure: TRANSCATHETER AORTIC VALVE REPLACEMENT FEMORAL APPROACH; Surgeon: Meir Arthur MD; Location: [facility]; Service: Cardiothoracic TOTAL KNEE ARTHROPLASTY [...] by mouth daily . Yes Historical Provider, AKVRRHS-XVHWVJHEB-DJGN ORAL Take 1 tablet by mouth daily [...] total) by mouth nightly . 10/27/18 Yes Baline Silveira MD nitroGLYCERIN (NITROSTAT) 0.4 MG SL [...] Component Value Date HGBA1C 6.1 (H) 01/09/2022 @QQMTBHE59@ ECG 12 Lead Result Date: 01/22/2022 Sinus [...] Date: 01/21/2022 12:12 PM Patient Status: Outpatient Commercial Intern: Jolanta Klein RDCS, RVT Exam Type: ECHOCARDIOGRAM LIMITED WITH CONTRAST Study Info Indications - INTRAOP TAVR Attending Physician: LINDSEY PLUMMER Referring Physician: [id number], BATISTA; [id number] BMI: 36.32 kg/m2 Summary 1. Limited two-dimensional, [...] Date: 01/21/2022 1:41 PM Patient Status: Outpatient Filler Block Inserter Remover:Muriel Medina RVT, FELICIANO Referring Physician: TONIA Jimenez; Attending Physician: LINDSEY PLUMMER Indications Z98.890 - Other specified postprocedural states - left femoral artery pseudoaneurysm, please perform compression therapy if able Procedure Description 11995 Duplex scan of lower extremity arteries or [...] Date: 01/22/2022 8:51 AM Patient Status: Inpatient Commercial Intern: Geraldo Carlos RDCS, ЮЛИЯ Exam Type: ECHOCARDIOGRAM COMPLETE Study Info Indications - Other Attending Physician: LINDSEY PLUMMER Referring Physician: TONIA Jimenez; [id number] BMI: 37.28 kg/m2 Summary 1. Leftventricular systolic [...] Name Value Normal MV Doppler MV Decel [place] 386 cm/s2 MV PHT 77 ms MV [...] VTI) 2.1 cm2 AV Area (Cont Eq Jessica) 2.3 cm2 LVOT Vmax/AV Vmax 0.72 LVOT [...] on 01/22/2022 05:15 PM documented in this [id number] Note* Addendum Note - Terrie Oh RN - 02/13/2022 7:54 AM EDTAddended by: TERRIE [place] on: 02/13/2022 07:54 AM Modules accepted: Orders [id number] Miscellaneous Notes* Addendum Note - Terrie Oh RN - 02/13/2022 7:54 AM EDTAddended by: TERRIE [place] on: 02/13/2022 07:54 AM Modules accepted: Orders documented in this [id number] History of Present illness Narrative* Angelica Randall CNP - 02/03/2022 10:00 AM EST Telephone Visit Via Phone Call [facility] [address] [place] [phone] Telephone Visit [facility] 02/03/2022 Angelica Randall CNP Provider Location: office Patient Location Hardware Developer: None Patient Location: Patient's Home Patient: Vickie [...] there are inherent diagnostic limitations compared to jvex-lm-aoiq evaluations. We elected toproceed with the telephone visit telemedicine consultation. HPI [...] Take 1 tablet by mouth daily . BCYWESZ-ZNTBKBZZB-YZCJ ORAL Take 1 tablet by mouth daily [...] symptoms. She will follow up with the [facility] again at4 weeks post TAVR with TTE, labwork and ECG. I have spent 16 minutes with the patient reviewing the HPI and Plan of Care. documented in this [id number] Hospital course Narrative* Angelica Randall, RN NEW GRAD - 01/22/2022 10:54 AM EST DISCHARGE SUMMARY Patient: Vickie Gonzalez Date of : 1955 Site: [facility] Family Provider: Nicol Ibanez MD [...] condition. She will follow up with the [facility] at 2 weeks and 4 [...] Take 1 tablet by mouth daily . VMFAAKL-YRMGVTCES-YRQS ORAL Take 1 tablet by mouth daily [...] Provider: Nicol Ibanez MD, Address: [address] / [place] [address] Follow Up: Phase 2 [facility] Please call ext. [phone] to schedule. Call in 2 week(s) Nicol Ibanez MD [address] [facility] Follow up Please call to schedule follow up appt for 8 weeks from discharge Angelica Randall CNP [address] [id number] Follow up Office has scheduled appts at 2 weeks and 4 weeks from discharge Blaine Silveira MD [address] [place], [place] [id number] Follow up Please call to schedule follow up appt with Dr. Silveira Additional Information: Patient instructions, including activity, were given to the patient/family at discharge. Please seethe After Visit Summary in the electronic medical record for details. Time spent on discharge: > 30 minutes Completed by: Angelica Randall CNP on 01/22/22, 10:54 AM documented in this [id number] Consult note* Marsha Torres RN - 01/22/2022 8:58 AM EST AVS reviewed with patient/family. Discussed importance of medications, follow up appointments, and Cardiac Rehab with patient/family.Discussed with patient that their physician has referred him/her to our outpatient Cardiac Rehabilitation program. A Cardiac Rehabilitation nurse will contact patientor patient may call [phone] for additional information. [facility] Cardiac Rehabilitation brochure pro vided to patient/family.The Cardiac Rehabilitation Program will be provided the patient's referral information and pertinent patient details and history. Patient chosen location is . [id number] Consult note* Marsha Torres RN - 01/22/2022 8:58 AM EST AVS reviewed with patient/family. Discussed importance of medications, follow up appointments, and Cardiac Rehab with patient/family.Discussed with patient that their physician has referred him/her to our outpatient Cardiac Rehabilitation program. A Cardiac Rehabilitation nurse will contact patientor patient may call [phone] for additional information. [facility] Cardiac Rehabilitation brochure pro vided to patient/family.The Cardiac Rehabilitation Program will be provided the patient's referral information and pertinent patient details and history. Patient chosen location is . documented in this [id number] Evaluation + Plan note* Assessment & Plan Note - Angelica Randall CNP - 01/22/2022 8:12 AM EST Associated Problem(s): Severe aortic stenosis S/p TAVR with 34mm Evolut Pro Plus via RFA [id number] Miscellaneous Notes* Assessment & Plan Note - [...] (66 y.o.) Date of Service: 01/21/2022 CSN: [id number] Procedure(s): Transcatheter Aortic Valve Replacement TRANSCATHETER AORTIC VALVE REPLACEMENT FEMORAL APPROACH Pre-Operative Diagnoses: * severe aortic stenosis Post-Operative Diagnoses: * Same as Pre-Op Diagnosis Surgeon(s) and Role: Panel 1: * Lindsey Plummer MD - Primary * Stanley Grant MD Panel 2: * Meir Arthur MD - Primary * Robert Pugh MD Anesthesiologist: Chapito Mohan MD Student Nurse Fisher Eel Spear: Deep Sawant Sock Liner: Kishan Rascon RN; Alena Barker, TECHNOLOGIST; Gina Ann RN; Judd Hoover RN Grants Assistant: Zulma Bowen Scrub Person: ST Raven; Danette [...] Implant Name Type Inv. Item Serial No. Brick Burner Head Lot No. LRB No. Used Action CLOSURE PERCLOSE PROSTYLE - [id number] Closure Device CLOSURE PERCLOSE PROSTYLE GARAY VAS N/A 2 Implanted VALVE 34MM EVOLUT PRO AORTIC - [id number] Percutaneous Valve VALVE 34MM EVOLUT PRO AORTIC [id number] [employer] N/A 1 Implanted Drain(s): * No LDAs found * Wound(s): * No LDAs found * Robert Pugh MD 01/21/2022 12:24 PM * Op Note - Robert Pugh MD - 01/21/2022 7:22 AM EST [facility] [id number] 1955 DATE 01/21/2022 OPERATIVE REPORT SURGEON ROBERT [...] condition. ROBERT PUGH MD D 01/21/2022 12:30 [id number] T 01/21/2022 12:47 WJF/MODL documented in this [id number] History of Present illness Narrative* Angelica Randall [facility] - 01/22/2022 8:04 AM EST Patient Name: Vickie Gonzalez MR #: [id number] POD # 1 Subjective: No complaints Objective: [...] discuss with SH team documented in this [id number] Note* Quick Note - Gaby Evans RN - 01/22/2022 4:58 AM EST .. Patient oriented to room and call system: yes Goal and Plan of Care written on whiteboard: yes Dual RN skin assessment completed with: Kaley Barcenas How will patient get home at discharge: Family will take pt home [id number] Note* Brief Op Note - Robert Pugh MD - 01/21/2022 12:24 PM EST Brief Post Operative Note Patient Name: Vickie Gonzalez : 1955 (66 y.o.) Date of Service: 01/21/2022 CSN: [id number] Procedure(s): Transcatheter Aortic Valve Replacement TRANSCATHETER AORTIC VALVE REPLACEMENT FEMORAL APPROACH Pre-Operative Diagnoses: * severe aortic stenosis Post-Operative Diagnoses: * Same as Pre-Op Diagnosis Surgeon(s) and Role: Panel 1: * Lindsey Plummer MD - Primary * Stanley Grant MD Panel 2: * Meir Arthur MD - Primary * Robert Pugh MD Anesthesiologist: Chapito Mohan MD Student Nurse Fisher Eel Spear: Deep Sawant Sock Liner: Kishan Rascon RN; Alena Barker, TECHNOLOGIST; iGna Ann, JERRY; Judd Hoover RN Grants Assistant: Zulma Bowen Scrub Person: ST Raven; Danette [...] Implant Name Type Inv. Item Serial No. Brick Burner Head Lot No. LRB No. Used Action CLOSURE PERCLOSE PROSTYLE - [id number] Closure Device CLOSURE PERCLOSE PROSTYLE GARAY VAS N/A 2 Implanted VALVE 34MM EVOLUT PRO AORTIC - [id number] Percutaneous Valve VALVE 34MM EVOLUT PRO AORTIC [id number] [employer] N/A 1 Implanted Drain(s): * No LDAs found * Wound(s): * No LDAs found * Robert Pugh MD 01/21/2022 12:24 PM [place] Work Phone: 1(417) 488-221202-22-2022 Attending History and physical note* Angelica Randall CNP - 01/21/2022 10:05 AM EST INTERVAL HISTORY AND PHYSICAL Patient Name: Vickie Gonzalez Admit Date: 2220101 MR #: [id number] : 1955 The H&P has been reviewed [...] Name: Vickie Gonzalez Admit Date: MR #: [id number] : 1955 Physicians: Nicol Ibanez MD (Family) [...] tablet by mouth daily . Historical Provider, NMEUGQL-RCPSMYUSE-LQKT ORAL Take 1 tablet by mouth daily [...] Wt 106.3 kg (234 lb 5.6 oz) TkQ239% BMI 37.82 kg/m General: Alert, cooperative, no [...] Component Value Date HGBA1C 6.1 (H) 01/09/2022 @IYRFRHO26@ CT TAVR Chest Abdomen Pelvis without hydration [...] the abdomen or pelvis. 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 Left ventricular systolic [...] mmHg MV VTI 28 cm MV Decel [place] 718 cm/s2 MV PHT 48 ms MVArea [...] VTI) 1 cm2/m2 AV Area (Cont Eq Jessica) 1.1 cm2 AV Area Index (Cont Eq Jessica) 0 cm2/m2 LVOT Vmax/AV Vmax 0.29 LVOT VTI/AV VTI Ratio 0.3 AV Regurgitation 2D LVOT Area 3.8 cm2 AV Regurgitation Doppler AR Peak Velocity 480 cm/s AR VTI 179 cm AR Decel [place] 490 cm/s2 AR PHT 283 ms AR [...] ml/m2 16-34 RA Dimensions RA Systolic Major Henley Length (4C) 7.17 cm <=5.30 RAArea (4C) [...] stable. Stable examination. Stable cardiomegaly. Workstation ID: [id number] [id number] History and physical note* Angelica Randall CNP - 01/21/2022 10:05 AM EST INTERVAL HISTORY AND PHYSICAL Patient Name: Vickie Gonzalez Admit Date: 2220101 MR #: [id number] : 1955 The H&P has been reviewed [...] Name: Vickie Gonzalez Admit Date: MR #: [id number] : 1955 Physicians: Nicol Ibanez MD (Family) [...] tablet by mouth daily . Historical Provider, HFPDCPJ-PQJPTBHSH-PJBS ORAL Take 1 tablet by mouth daily [...] Component Value Date HGBA1C 6.1 (H) 01/09/2022 @CWEGQBY62@ CT TAVR Chest Abdomen Pelvis without hydration [...] acute process in the abdomen or pelvis. [employer] Workstation ID: [id number] Carotid Duplex Result Date: 01/09/2022 Patient Info Name: VICKIE GONZALEZ Age: 66 years : 1955 Gender: Female Exam Date: 01/09/2022 11:00 AM Patient Status: Outpatient Filler Block Inserter Remover: Corina BOWDEN RVT^^^^ Referring Physician: ANGELICA RANDALL ; Attending Physician: ANGELICA RANDALL Indications I35.0 - Aortic valve stenosis, severe Z01.810 - Pre-operative cardiovascular examination R09.89 - Other specified symptoms and signs involving the circulatory and respiratory systems - Preop TAVR Procedure Description 08622 Duplex examination using B-mode, color and spectral [...] AM Patient Status: Outpatient Son ographer: Angelica Lynne RDCS, RVT Exam Type: ECHOCARDIOGRAM COMPLETE Study Info Indications I35.1 - Nonrheumatic aortic (valve) insufficiency Referring Physician: BLAINE SILVEIRA ; [id number] BMI:36.64 kg/m2 Summary 1. Left ventricular systolic [...] mmHg MV VTI 28 cm MV Decel [place] 718 cm/s2 MV PHT 48 ms MVArea [...] VTI) 1 cm2/m2 AV Area (Cont Eq Jessica) 1.1 cm2 AV Area Index (Cont Eq Jessica) 0 cm2/m2 LVOT Vmax/AV Vmax 0.29 LVOT VTI/AV VTI Ratio 0.3 AV Regurgitation 2D LVOT Area 3.8 cm2 AV Regurgitation Doppler AR Peak Velocity 480 cm/s AR VTI 179 cm AR Decel [place] 490 cm/s2 AR PHT 283 ms AR [...] ml/m2 16-34 RA Dimensions RA Systolic Major Henley Length (4C) 7.17 cm <=5.30 RAArea (4C) [...] stable. Stable examination. Stable cardiomegaly. Workstation ID: [id number] documented in this [id number] Note* Op Note - Robert Pugh MD - 01/21/2022 7:22 AM EST [facility] [id number] 1955 DATE 01/21/2022 OPERATIVE REPORT SURGEON ROBERT [...] condition. ROBERT PUGH MD D 01/21/2022 12:30 [id number] T 01/21/2022 12:47 WGueraF/MODL [id number] Nurse Surgical operation note* Luly Arceo RN - 01/17/2022 12:24 PM EST [facility] Surgical Department Patient Instructions for [facility]: Prior to surgery: Please bathe the [...] if desired. When you arrive at the [facility] on the day of your surgery, please note that insurance defense attorney parking is free. Pull up to the [...] to view our online educational program in [employer]? It is very helpful to watch this as it can help you understand your surgery preparation process here at [facility]. It will provide you with [...] contact surgeon's office with any additional questions. [id number] Nurse Note* Luly Arceo RN - 01/17/2022 12:24 PM EST [facility] Surgical Department Patient Instructions for [facility]: Prior to surgery: Please bathe the [...] if desired. When you arrive at the [facility] on the day of your surgery, please note that insurance defense attorney parking is free. Pull up to the [...] to view our online educational program in [employer]? It is very helpful to watch this as it can help you understand your surgery preparation process here at [facility]. It will provide you with [...] with any additional questions. documented in this [id number] Miscellaneous Notes* Assessment & Plan Note - [...] Dr. Lindsey Plummer MD, MSc, GILBERTO, FACC, PSYCHIATRIC. [facility] Heart and Vascular documented in this [id number] History of Present illness Narrative* Lindsey Plummer MD - 01/09/2022 8:05 PM EST [facility] Consult Heart & Vascular [facility] 01/09/2022 Lindsey Plummer MD [address] [address] Patient: Vickie Gonzalez Date of : 1955 [...] Dr. Lindsey Plummer MD, MSc, GILBERTO, FACC, PSYCHIATRIC. [facility] Heart and Vascular Follow-up: No [...] Final Result by Muriel Guerra RN (01/09/2022 0578) Echocardiogram complete Final Result by Diego Fox MD (12/30/2021 1715) [facility]A Heart (Undertaker Helper read) (Results Pending) HOME Medications: Patient's [...] Take 1 tablet by mouth daily . KOPPHXJ-QMOZQBTCB-WVQY ORAL Take 1 tablet by mouth daily [...] LDLCALC, LDLDIRECT, TRIG, HDL documented in this [id number] History of Present illness Narrative* Meir Arthur MD - 01/09/2022 1:07 PM EST [facility] TAVR CONSULTATION Patient Name: Vickie Gonzalez Admit Date: MR #: [id number] : 1955 Physicians: Nicol Ibanez MD (Family) [...] tablet by mouth daily . Historical Provider, HQIMTKG-SZKJTRERL-CMYG ORAL Take 1 tablet by mouth daily [...] Wt 106.3 kg (234 lb 5.6 oz) QjV907% BMI 37.82 kg/m General: Alert, cooperative, no [...] Component Value Date HGBA1C 6.1 (H) 01/09/2022 @WFEHBXR33@ CT TAVR Chest Abdomen Pelvis without hydration [...] acute process in the abdomen or pelvis. LiveWire Tax/tde Workstation ID: [id number] Carotid Duplex Result Date: 01/09/2022 Patient Info Name: VICKIE GONZALEZ Age: 66 years : 1955 Gender: Female Exam Date: 01/09/2022 11:00 AM Patient Status: Outpatient Filler Block Inserter Remover: Corina BOWDEN RVT^^^^ Referring Physician: ANGELICA RANDALL ; Attending Physician: ANGELICA RANDALL Indications I35.0 - Aortic valve stenosis, severe Z01.810 - Pre-operative cardiovascular examination R09.89 - Other specified symptoms and signs involving the circulatory and respiratory systems - Preop TAVR Procedure Description 01454 Duplex examination using B-mode, color and spectral [...] (valve) insufficiency Referring Physician: BLAINE SILVEIRA ; [id number] BMI:36.64 kg/m2 Summary 1. Left ventricular systolic [...] mmHg MV VTI 28 cm MV Decel [place] 718 cm/s2 MV PHT 48 ms MVArea [...] VTI) 1 cm2/m2 AV Area (Cont Eq Jessica) 1.1 cm2 AV Area Index (Cont Eq Jessica) 0 cm2/m2 LVOT Vmax/AV Vmax 0.29 LVOT VTI/AV VTI Ratio 0.3 AV Regurgitation 2D LVOT Area 3.8 cm2 AV Regurgitation Doppler AR Peak Velocity 480 cm/s AR VTI 179 cm AR Decel [place] 490 cm/s2 AR PHT 283 ms AR [...] ml/m2 16-34 RA Dimensions RA Systolic Major Henley Length (4C) 7.17 cm <=5.30 RAArea (4C) [...] stable. Stable examination. Stable cardiomegaly. Workstation ID: [id number] * Angelica Randall, RAMO - 01/09/2022 12:44 PM EST [facility] TAVR CONSULTATION Patient Name: Vickie Gonzalez Admit Date: MR #: [id number] : 1955 Physicians: Nicol Ibanez MD (Family) [...] tablet by mouth daily . Historical Provider, KONXETB-TCQTYHSUM-YYRY ORAL Take 1 tablet by mouth daily [...] Wt 106.3 kg (234 lb 5.6 oz) FtI436% BMI 37.82 kg/m General: Alert, cooperative, no [...] Component Value Date HGBA1C 6.1 (H) 01/09/2022 @PAXGIBF81@ CT TAVR Chest Abdomen Pelvis without hydration [...] acute process in the abdomen or pelvis. LiveWire Tax/tde Workstation ID: [id number] Carotid Duplex Result Date: 01/09/2022 Patient Info Name: VICKIE GONZALEZ Age: 66 years : 1955 Gender: Female Exam Date: 01/09/2022 11:00 AM Patient Status: Outpatient Filler Block Inserter Remover: Corina BOWDEN RVT^^^^ Referring Physician: ANGELICA RANDALL ; Attending Physician: ANGELICA RANDALL Indications I35.0 - Aortic valve stenosis, severe Z01.810 - Pre-operative cardiovascular examination R09.89 - Other specified symptoms and signs involving the circulatory and respiratory systems - Preop TAVR Procedure Description 48235 Duplex examination using B-mode, color and spectral [...] (valve) insufficiency Referring Physician: BLAINE SILVEIRA ; [id number] BMI:36.64 kg/m2 Summary 1. Left ventricular systolic [...] mmHg MV VTI 28 cm MV Decel [place] 718 cm/s2 MV PHT 48 ms MVArea [...] VTI) 1 cm2/m2 AV Area (Cont Eq Jessica) 1.1 cm2 AV Area Index (Cont Eq Jessica) 0 cm2/m2 LVOT Vmax/AV Vmax 0.29 LVOT VTI/AV VTI Ratio 0.3 AV Regurgitation 2D LVOT Area 3.8 cm2 AV Regurgitation Doppler AR Peak Velocity 480 cm/s AR VTI 179 cm AR Decel [place] 490 cm/s2 AR PHT 283 ms AR [...] ml/m2 16-34 RA Dimensions RA Systolic Major Henley Length (4C) 7.17 cm <=5.30 RAArea (4C) [...] stable. Stable examination. Stable cardiomegaly. 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 a while, but stopped * Assessment & Plan Note - Blaine Silveira MD - 06/10/2021 11:29 AM EDT Associated Problem(s): Aortic insufficiency symptoms could also be Aortic Stenosis/AI will recheck echo * Assessment & Plan Note - Blaine Silveira MD - 06/10/2021 11:24 AM EDT Associated Problem(s): Coronary artery disease involving [place] coronary artery of [place] heart without angina pectoris Has had 2 spells of chest / jaw discomfort and shortness of breath, relieved with rest Will get a stress, she will also check and walk and if gets predictable may need a cath continue asa/metoprolol and will give sl ntg documented in this [id number] History of Present illness Narrative* Blaine Silveira MD - 06/10/2021 11:34 AM EDT Patient Name: Vickie Gonzalez MR #: [id number] Interventional Cardiology Blaine Silveira MD, [facility] Physicians 06/10/21 Dear Nicol Ibanez MD, Vickie Gonzalez was seen in follow up for : Problem Coronary Artery Disease Involving [place] Coronary Artery of [place] Heart Without Angina Pectoris CABG 2000 Cath 2010 all grafts open Aortic Insufficiency Moderate to Severe Asx AI-- same 12/2017 only mild-moderate Elevated Sed Rate Hld (Hyperlipidemia) Assessment and Plan Coronary artery disease involving [place]ug[place] coronary artery of ig[place]ug[place] heart without angina pectoris Has had 2 [...] and also could be fibrosiing mediastinitis 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 DDIZPLY-WOTCPLEKN-YOUD ORAL Take 1 tablet by mouth daily [...] patient is not nervous/anxious. documented in this [id number] Instructions* Patient Instructions* Zoila Cueto MA - 06/10/2021 11:15 AM EDT How to contact your Care Team: Provider: Dr. Silveira Nurse: Iliana Madsen RN In case of an emergency please call 911. REFILLS: When in need for refills please call your care team or the office at [phone]. Please include medication name, pharmacy name, and specify 30-day or 90-day supply. Please check with your pharmacy within 24 hours of request for your refill. You must follow up as directed to continue current refills. Thank you! documented in this encounterOhioHealthDischarge summary Author Shagufta Jose [facility] Note Date/Time May 31, 2025 3:52p m [facility] Medical Records Department [address] [place] [address] Discharge Summary 05/31/25 1536 MR#: [id number] Acct: [id number] Name: VICKIE GONZALEZ Rep #:[id number] : 1955 69 From: Shagufta Garcia DO PCP: Dr. Kirill Newell MD Status:[facility]M [facility] Prov[facility] Date of Admission: 05/30/25 Primary Care Physician: Dr. Kirill Newell MD Consultations 05/30/25 03:07 Consult: Cardiology Routine Consulting Provider: [facility] Reason for Consult: New-onset Atrial Flutter; with RVR. EMERGENT Consult: No MD Notified: Yes Date Notified: 05/30/25 Time Notified: 06:00 Method of Notification: Text Method of Consult:: In-Person Reason For Visit: NEW ONSET ATRIAL FLUTTER WITH RVR Diagnosis Discharge Diagnosis (1) Fibrosing mediastinitis: Status: Chronic Code(s): J98.51 - Mediastinitis (2) Status post double vessel coronary artery bypass: Status: Resolved Code(s): Z95.1 - Presence of aortocoronary bypass graft (3) Atrial flutter with rapid ventricular response: Status: Acute Code(s): I48.92 - Unspecified atrial flutter (4) Aortic valve insufficiency: Status: Chronic Code(s): I35.1 - Nonrheumatic aortic (valve) insufficiency Qualifiers: Cardiac valve disease etiology: etiology unspecified Qualified Code(s):I35.1 - Nonrheumatic aortic (valve) insufficiency Medications at Discharge Home Medications aspirin 81 mg tablet,delayed release (Adult Aspirin Regimen) 81 mg PO QDAY 12/22/17 cholecalciferol (vitamin D3) 125 mcg (5,000 unit) capsule 5,000 unit PO QDAY 12/22/17 pravastatin 40 mg tablet 40 mg PO QHS 12/22/17 diphenhydramine HCl 25 mg capsule (Benadryl) 25 mg PO QHS PRN sleep 09/02/18 spacer #1 ea 03/06/20 Lactobacillus acidophilus (Acidophilus capsule) 100 mg PO DAILY 05/29/25 ipratropium bromide 21 mcg (0.03 %) nasal spray intranasal 05/29/25 levocetirizine 5 mg tablet (24HR Allergy Relief) 5 mg PO DAILY 05/29/25 losartan 100 mg tablet 100 mg PO DAILY 05/29/25 magnesium 250 mg tablet 250 mg PO DAILY 05/29/25 montelukast 10 mg tablet 10 mg PO DAILY 05/29/25 vitamin B complex (Vitamins B Complex capsule) 1 cap PO DAILY 05/29/25 apixaban 5 mg tablet (Eliquis) 5 mg PO BID #60 tabs 05/31/25 diltiazem HCl 180 mg capsule,extended release 24 hr 180 mg PO Q12 #60 caps 05/31/25 metoprolol succinate 50 mg tablet,extended release 24 hr 100 mg (2 x 50 mg) PO DAILY #120 tabs 05/31/25 Hospital Course Operations None Procedures 2-D Echocardiogram and - (CTA chest) Summary of Care Provided Minutes Spent on Discharge: 38 Hospital Course: Mrs. Gonzalez is a 69-year-old female who presented to the emergency department at [facility] on 05/30/2025 early in the morning with heart racingand palpitations. She was found to be in new onset atrial flutter. She has a history of CABG x 2 in 2000 along with a TAVR and history of fibrosing mediastinitis. She had pretty consistent workup up until 2019 and then seems like she may have been lost to follow-up with COVID. Her symptoms began about aday prior to presentation and they were abrupt in onset. She was sustaining tachycardia with heart rates in the 120 range. She was evaluated by her primarycare physician and EKG revealed sinus tachycardia. She was instructed to take an extra dose of her metoprolol but this did not help so she was instructed to come to the emergency department. She had admitted to being extremely tired andbreathless for about 6 weeks. She has no history of sleep apnea which she is aware of. She has had no fever or chills and denies any chest pain, nausea or vomiting. EKG in the emergency department was consistent with atrial flutter with RVR having rate about 120. She was started on diltiazem drip and admitted to the PCU. Echocardiogram was obtained and she was found to have a normal functioning bioprosthetic valve with a mildly enlarged left atrium, markedly large right atrium, mild MR no pericardial effusion, and mild to moderate TR TSHwas within normal limits at 3.02. Her labs were overtly unremarkable. Vital signs were stable other than elevated blood pressure and tachycardia on presentation. Given her new onset atrial fibrillation, a CTA of her chest was performed to rule out PE. She was not found to have PE however she was found tohave mediastinal fibrosis surrounding the proximal right pulmonary artery with moderate the severe narrowing and poststenotic dilation of the right pulmonary artery. She was maintained on a home beta-shivam initially at 50 mg while she was placed on the Cardizem drip and this did control her heart rate. I was ableto transition her off the Cardizem drip to oral Cardizem and ultimately she ended up on extended release Cardizem 180 mg p.o. twice daily at the time of discharge. Her heart rates were still a little bit higher than I would like to see them so we did increase her beta-shivam from 50 to 100 mg daily at which time we achieved heart rate control and stable blood pressure. She is now on Cardizem 180 p.o. twice daily and metoprolol 100 mg daily. I do wonder if her mediastinal fibrosis has worsened some causing her atrial flutter. She does have dilated atria bilaterally with the right being greater than the left. We avoided amiodarone due to her fibrosis and younger age. She has follow-up with Dr. Lindsey Finley on 06/09/2025. She was started on Eliquis. We did discuss the risk and benefits of being anticoagulated in the setting of atrial flutter and atrial fibrillation with regards to stroke prevention. Patient voiced understanding. [facility] Eliquis[facility] pharmacy prior to discharge. No other medication changes were made and she was able to be discharged home in stable condition on 05/31/2025. As noted she has follow-up with cardiology and will also follow-up with pulmonary medicine to see if we need to pursue her mediastinal fibrosis any further as well as her primary care physician as needed. Of note we do suspect she may have a component of MADDY and recommends outpatient polysomnography. This was discussed with the patient and she said she would pursue this. I discussed withher she could either follow-up with her primary care physician or pulmonary medicine patient follows up there. 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 Suspected MADDY CAD status post CABG Aortic valve insufficiency status post TAVR Essential hypertension Hyperlipidemia History of asthma Allergic rhinitis History of basal cell carcinoma left lower extremity status post Mohs procedure Osteoarthritis status post total knee arthroplasty Morbid obesity Physical Exam Const alert, oriented x3, no apparent distress, no limitations and well nourished; Negative for average body habitus Constitutional Narrative: Morbidly obese, white female, older, sitting up in bed, appears comfortable, nontoxic, appears younger than stated age General Appearance: cooperative, comfortable, well kempt and well developed Exam Limitations: no limitations Nutritional Appearance: morbidly obese HEENT normocephalic, head/scalp atraumatic, hearing grossly normal bilaterally and moist oral mucous membranes HEENT Narrative: Mallampati 3, no thrush Eyes conjunctivae normal Eyes Narrative: No scleral icterus Neck supple Neck Narrative: Neck is short thick, trachea midline Resp normal respiratory effort, no retractions, no use of accessory muscles and clearto auscultation bilaterally Auscultation: Negative for rales, rhonchi or wheezes Cardio regular rate, S1 normal heart sound, S2 normal heart sound, no murmurs, no rub, no gallops and no clicks Cardio Narrative: Irregular irregular rhythm-now rate controlled GI normal to inspection, nondistended, normoactive bowel sounds, soft to palpation and non-tender Extremity no clubbing, cyanosis or edema Extremity Narrative: 2+ pedal and radial pulses Skin no wounds, skin turgor normal and no jaundice Neuro oriented x3, moves all extremities and no focal motor deficits Speech: speech normal Psych affect normal Psych Narrative: Extremely pleasant, interacts appropriately Weight / BMI Weight Weight: 123.9 kg Body Mass Index (BMI) 43.4 ABG / Lab / Microbiology Data 05/31/25 06:05 05/31/25 06:05 Laboratory: Laboratory Results - last 24 hr 05/31/25 06:05: WBC 7.7, RBC 4.21, Hgb 12.1, Hct 37.5, MCV 89.1, MCH 28.7, MCHC 32.3, RDW Std Deviation 49.7 H, RDW Coeff of Mark 15.3 H, Plt Count 228, MPV 11.4, Immature Gran % (Auto) 0.500, Neut % (Auto) 60.4, Lymph % (Auto) 28.5, [place] % (Auto) 6.8, Eos % (Auto) 3.3, Baso % (Auto) 0.5, Absolute Neuts (auto) 4.7, Absolute Lymphs (auto) 2.19, Nucleated RBC % 0, Sodium 139, Potassium 4.0, Chloride 106, Carbon Dioxide 22.2, Anion Gap 12, BUN 17, Creatinine 0.83, Estim Creat Clear Calc 84.77, Est GFR (MDRD) Non-Af 76, BUN/Creatinine Ratio 20.2 H, Glucose 106 H, Calcium 9.0, Phosphorus 3.7, Magnesium 2.1, Total Bilirubin 0.77, AST 31, ALT 23, Alkaline Phosphatase 118 H, Total Protein 7.3, Albumin 3.6, Globulin 3.7, Albumin/Globulin Ratio 1.0 Radiography Diagnostic Testing: Radiology Impression Echocardiogram 05/30/25 02:36 Interpretation Summary Normal function of aortic valve bioprosthesis/TAVR Normal aortic valve bioprosthesis function Mildly enlarged left atrium Moderately enlarged right atrium Mild MR No pericardial effusion Mild to moderate TR Contrast echo used Definity. LV inflow/mitral inflow showed only E wave with loss of the atrial contractilitypatient is in atrial fibrillation No previous echo to compare Ordering Physician: Nicol Silva Performed By: Martin Lin RCS D/C Instructions Discharge Diet: Low fat / Low cholesterol Discharge Activity: Return to Normal Activity Return to work on: 06/01/25 DC O2, CPAP, BIPAP Needs Home O2 Discharge instructions: No DC home with Oxygen: No Meaningful Use Info Meaningful Use Meaningful Use Diagnoses (Choose all that apply): None applicable Ischemic Stroke Statin Dosing Therapy Reference: STATIN DOSE THERAPY REFERENCE: * Patients > 75 years receive moderate or high dose statin therapy. * Patients 75 years or YOUNGER should receive HIGH intensity statin dose unless contraindicated. You will be required to document reason for non-treatment if statin daily dose does not meet guidelines. HIGH DOSE STATIN THERAPY DAILY Atorvastatin > than or = to 40 mg Rosuvastatin > than or = to 20 mg Amlodipine + Atorvastatin > than or = to 2.5/40 mg Ezetimibe + Simvastatin 10/80 mg Simvastatin 80mg Discharge Plan Admission Admit Date/Time: 05/30/25 02:29 Primary Reason for Your Visit: Palpitations Attending Provider: Shagufta Garcia Primary Care Provider: Kirill Newell Consulting Providers: Nicol Silva; Addy Valencia; Marcin Cason; Arun Vogel; Francesco Partida; Jesus Tam; Francisco Cox; Dianne Perez; Lindsey Finley; Gen Ruiz; Maverick Velasquez; Aníbal Witt; Irena Finch NP; Alena Silver; David Brooks Instructions Additional Instructions / Restrictions: 1. Please discussed obtaining a polysomnography or a sleep study with your primary care physician or Dr. Danielle as we suspect he may have a component of sleep apnea and this could contribute to your atrial flutter. I do not think this is the only reason you have a flutter but it could contribute. Discharge Orders/Prescriptions Prescriptions: New Eliquis 5 mg Tablet 5 mg PO BID Qty: 60 1RF diltiazem HCl 180 mg Capsule,Extended Release 24hr 180 mg PO Q12 Qty: 60 1RF metoprolol succinate 50 mg Tablet Extended Release 24 Hr 100 mg PO DAILY Qty: 120 1RF Continued pravastatin 40 mg tablet 40 mg PO QHS aspirin [Adult Aspirin Regimen] 81 mg tablet,delayed release (DR/EC) 81 mg PO QDAY cholecalciferol (vitamin D3) 5,000 unit capsule 5,000 unit PO QDAY diphenhydramine HCl [Benadryl] 25 mg capsule 25 mg PO QHS PRN (Reason: sleep) montelukast 10 mg tablet 10 mg PO DAILY losartan 100 mg tablet 100 mg PO DAILY ipratropium bromide 21 mcg (0.03 %) spray,non-aerosol INTRANASAL Patient Comments: 1-2 [place] each nostril before bedtime nightly and every 6 hours as needed inday due to cough vitamin B complex [Vitamins B Complex] Capsule 1 cap PO DAILY Acidophilus Capsule 100 mg PO DAILY levocetirizine [24HR Allergy Relief] 5 mg tablet 5 mg PO DAILY magnesium 250 mg tablet 250 mg PO DAILY (DME) spacer See Rx Instructions .ROUTE .MEDSUPPLY Qty: 1 0RF Rx Instructions: As directed Discontinued metoprolol succinate 50 mg tablet extended release 24 hr 50 mg PO DAILY Referrals / Follow Up: Jeff Danielle DO [Med Staff - Active Staff] - 06/28/25 9:45 am Kirill Newell MD [Primary Care Provider] - See Referral Note (As needed) Lindsey Finley MD [Med Staff - Active Staff] - 06/09/25 9:30 am (appointment with Alena Silver N.P.) Disposition Disposition (needs filled in before D/C Order can be placed): Home, Self Care Charges/Coding Visit Charges Inpatient E&M: 46246 Disch Hosp >30min 05/31/25 155 <Electronically signed by Shagufta Garcia DO> Cosigner Signature (if applicable): CC: Dr. Jeff Danielle DO; Dr. Kirill Newell MD; Dr. Shagufta Garcia DO; Dr. Lindsey Finley MD~ Signed [facility] Work Phone: Evaluation note* Diagnosis Coronary artery disease involving igiugig coronary artery of igiugig heart without angina pectoris- Primary [facility] Diagnosis Coronary artery disease involving igiugig coronary artery of igiugig heart without angina pectoris Nonrheumatic aortic valve insufficiency Elevated sed rate Elevated sedimentation rate Mixed hyperlipidemia [facility] Diagnosis Nonrheumatic aortic valve insufficiency- Primary [facility] Diagnosis Nonrheumatic aortic valve insufficiency- Primary [facility] Diagnosis Aortic valve stenosis, severe- Primary Aortic valve disorders Pre-operative cardiovascular examination Other specified symptoms and signs involving the circulatory and respiratory systems [facility] Diagnosis Aortic valve stenosis, severe- Primary Aortic valve disorders Pre-operative cardiovascular examination Other abnormal findings in urine Abnormal coagulation profile Abnormal coagulation profile Dyspnea, unspecified type Abnormal finding of blood chemistry, unspecified [facility] Diagnosis Encounter for preprocedure screening laboratory testing for COVID-19- Primary [facility] Diagnosis Encounter for preoperative screening laboratory testing for COVID-19 virus- Primary [facility] Diagnosis Encounter for preoperative screening laboratory testing for COVID-19 virus- Primary [facility] Diagnosis Severe aortic insufficiency- Primary Aortic valve stenosis, severe Aortic valve disorders Pre-operative cardiovascular examination [facility] Diagnosis Aortic valve stenosis, severe Aortic valve disorders Pre-operative cardiovascular examination [facility] Diagnosis Aortic valve stenosis, severe- Primary Aortic valve disorders Severe aortic insufficiency Aortic valve stenosis, severe Aortic valve disorders Severe aortic insufficiency Aortic valve stenosis, severe Aortic valve disorders Severe aortic insufficiency [facility] Diagnosis Aortic valve stenosis, severe Aortic valve disorders Severe aortic insufficiency Encounter for preprocedure screening laboratory testing for COVID-19- Primary Aortic valve stenosis, severe Aortic valve disorders Severe aortic insufficiency [facility]* Diagnosis S/P TAVR (transcatheter aortic valve replacement)- Primary [facility] Diagnosis Severe aortic stenosis- Primary Aortic valve disorders S/P TAVR (transcatheter aortic valve replacement) [facility] Diagnosis S/P TAVR (transcatheter aortic valve replacement)- Primary [facility] Diagnosis S/P TAVR (transcatheter aortic valve replacement)- Primary Shortness of breath Shortness of breath [facility] Diagnosis S/P TAVR (transcatheter aortic valve replacement)- Primary [facility] Diagnosis S/P TAVR (transcatheter aortic valve replacement)- Primary Hypertension, unspecified type [facility] Diagnosis Onset Date Resolution Status Basal cell carcinoma (BCC) of left lower extremity acute [id number] acute BMI 40.0-44.9, adult chronic HTN (hypertension) [facility] Work Phone: Evaluation note* Diagnosis Onset Date Resolution Status Basal cell carcinoma (BCC) of left lower extremity acute [id number] acute BMI 40.0-44.9, adult chronic HTN (hypertension) chronic Basal cell carcinoma (BCC) of left lower extremity acute [id number] acute BMI 40.0-44.9, adult chronic HTN (hypertension) chronic 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 [facility] Work Phone: Evaluation note* Diagnosis Onset Date Resolution Status Basal cell carcinoma (BCC) of left lower extremity acute [id number] acute BMI 40.0-44.9, adult chronic HTN (hypertension) chronic Basal cell carcinoma (BCC) of left lower extremity acute [id number] acute BMI 40.0-44.9, adult chronic HTN (hypertension) chronic 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 Basal cell carcinoma (BCC) of left lower extremity acute [id number] acute BMI 40.0-44.9, adult chronic HTN (hypertension) chronic 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 [facility] Work Phone: Evaluation note* Diagnosis Onset Date Resolution Status Basal cell carcinoma (BCC) of left lower extremity acute [id number] acute BMI 40.0-44.9, adult chronic HTN (hypertension) chronic Basal cell carcinoma (BCC) of left lower extremity acute [id number] acute BMI 40.0-44.9, adult chronic HTN (hypertension) chronic 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 Basal cell carcinoma (BCC) of left lower extremity acute [id number] acute BMI 40.0-44.9, adult chronic HTN (hypertension) chronic 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 Basal cell carcinoma (BCC) of left lower extremity acute [id number] acute HTN (hypertension) chronic 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 [facility] Work Phone: Evaluation note* Diagnosis Osteoarthritis of right knee, unspecified osteoarthritis type- Primary Hypertension, unspecified type [facility] Diagnosis Osteoarthritis of right knee- Primary Osteoarthrosis, unspecified whether generalized or localized, lower leg Coronary artery disease involving igiugig coronary artery of igiugig heart without angina pectoris- Primary Osteoarthritis of right knee, unspecified osteoarthritis type Severe aortic insufficiency Osteoarthritis of right knee, unspecified osteoarthritis type [facility] Work Phone: Evaluation note* Diagnosis Osteoarthritis [...] unspecified osteoarthritis type [facility] Diagnosis Status post total right knee replacement- Primary [facility] Diagnosis Status post total right knee replacement- Primary [facility] Diagnosis Status post total right knee replacement- Primary [facility] Diagnosis Status post total right knee replacement [facility] Diagnosis Status post total right knee replacement- Primary [facility] Diagnosis Status post total right knee replacement- Primary [facility] Diagnosis Status post total right knee replacement- Primary [facility] Diagnosis Status post total right knee replacement- Primary [facility] Diagnosis Status post total right knee replacement- Primary [facility] Diagnosis Status post total right knee replacement- Primary [facility] Diagnosis Status post total right knee replacement- Primary [facility] Diagnosis Status post total right knee replacement- Primary [facility] Diagnosis Status post total right knee replacement- Primary [facility] Diagnosis Status post total right knee replacement- Primary [facility] Diagnosis Status post total right knee replacement- Primary [facility] Diagnosis Status post total right knee replacement- Primary [facility] Diagnosis Onset Date Resolution Status Admit Date Atrial flutter with rapid ventricular response acute May 30 2:39am Palpitations acute May 30 2:39am Racing heart beat acute May 2:39am S/P TAVR (transcatheter aort ic valve replacement) acute May 30 2:39am Aortic valve insufficiency chronic May 30, 2025 2:39am BMI 40.0-44.9, adult chronic May 30, 2025 2:39am Status post double vessel coronary artery bypass resolved May 30, 2025 2:39am [facility] Work Phone: Evaluation note* Diagnosis Fibrosing mediastinitis- Primary Mediastinitis Coronary artery disease involving igiugig coronary artery of igiugig heart without angina pectoris Aortic insufficiency Aortic valve disorders Nonrheumatic aortic valve insufficiency- Primary Coronary artery disease involving igiugig coronary artery of igiugig heart without angina pectoris Fibrosing mediastinitis Mediastinitis Coronary artery disease involving igiugig coronary artery of igiugig heart without angina pectoris Nonrheumatic aortic valve insufficiency SOB (shortness of breath) Shortness of breath Coronary artery disease involving igiugig coronary artery of igiugig heart without angina pectoris 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 Coronary artery disease involving igiugig coronary artery of igiugig heart without angina pectoris Coronary artery disease involving igiugig coronary artery of igiugig heart without angina pectoris Nonrheumatic aortic valve insufficiency Elevated sed rate Elevated sedimentation rate Mixed hyperlipidemia Aortic valve stenosis, severe Aortic valve disorders Pre-operative cardiovascular examination Severe aortic stenosis- Primary Aortic valve disorders S/P TAVR (transcatheter aortic valve replacement) Severe aortic stenosis Aortic valve disorders Aortic valve stenosis, severe Aortic valve disorders Coronary artery disease involving igiugig coronary artery of igiugig heart without angina pectoris Ascending aorta dilation (HCC) Thoracic aneurysm without mention of rupture Coronary artery disease involving igiugig coronary artery of igiugig heart without angina pectoris- Primary Osteoarthritis of right knee, unspecified osteoarthritis type Severe aortic insufficiency Typical atrial flutter (HCC)- Primary Severe aortic insufficiency Fibrosing mediastinitis Mediastinitis S/P TAVR (transcatheter aortic valve replacement) Mixed hyperlipidemia Coronary artery disease involving igiugig coronary artery of igiugig heart without angina pectoris [facility] Diagnosis Fibrosing mediastinitis- Primary Mediastinitis Coronary artery disease involving igiugig coronary artery of igiugig heart without angina pectoris Aortic insufficiency Aortic valve disorders Nonrheumatic aortic valve insufficiency- Primary Coronary artery disease involving igiugig coronary artery of igiugig heart without angina pectoris Fibrosing mediastinitis Mediastinitis Coronary artery disease involving igiugig coronary artery of igiugig heart without angina pectoris Nonrheumatic aortic valve insufficiency SOB (shortness of breath) Shortness of breath Coronary artery disease involving igiugig coronary artery of igiugig heart without angina pectoris 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 Coronary artery disease involving igiugig coronary artery of igiugig heart without angina pectoris Coronary artery disease involving igiugig coronary artery of igiugig heart without angina pectoris Nonrheumatic aortic valve insufficiency Elevated sed rate Elevated sedimentation rate Mixed hyperlipidemia Aortic valve stenosis, severe Aortic valve disorders Pre-operative cardiovascular examination Severe aortic stenosis- Primary Aortic valve disorders S/P TAVR (transcatheter aortic valve replacement) Severe aortic stenosis Aortic valve disorders Aortic valve stenosis, severe Aortic valve disorders Coronary artery disease involving igiugig coronary artery of igiugig heart without angina pectoris Ascending aorta dilation (HCC) Thoracic aneurysm without mention of rupture Coronary artery disease involving igiugig coronary artery of igiugig heart without angina pectoris- Primary Osteoarthritis of right knee, unspecified osteoarthritis type Severe aortic insufficiency Typical atrial flutter (HCC)- Primary Severe aortic insufficiency Fibrosing mediastinitis Mediastinitis S/P TAVR (transcatheter aortic valve replacement) Mixed hyperlipidemia Coronary artery disease involving igiugig coronary artery of igiugig heart without angina pectoris Typical atrial flutter (HCC)- Primary [facility] Diagnosis Fibrosing mediastinitis- Primary Mediastinitis Coronary artery disease involving igiugig coronary artery of igiugig heart without angina pectoris Aortic insufficiency Aortic valve disorders Nonrheumatic aortic valve insufficiency- Primary Coronary artery disease involving igiugig coronary artery of igiugig heart without angina pectoris Fibrosing mediastinitis Mediastinitis Coronary artery disease involving igiugig coronary artery of igiugig heart without angina pectoris Nonrheumatic aortic valve insufficiency SOB (shortness of breath) Shortness of breath Coronary artery disease involving igiugig coronary artery of igiugig heart without angina pectoris 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 Coronary artery disease involving igiugig coronary artery of igiugig heart without angina pectoris Coronary artery disease involving igiugig coronary artery of igiugig heart without angina pectoris Nonrheumatic aortic valve insufficiency Elevated sed rate Elevated sedimentation rate Mixed hyperlipidemia Aortic valve stenosis, severe Aortic valve disorders Pre-operative cardiovascular examination Severe aortic stenosis- Primary Aortic valve disorders S/P TAVR (transcatheter aortic valve replacement) Severe aortic stenosis Aortic valve disorders Aortic valve stenosis, severe Aortic valve disorders Coronary artery disease involving igiugig coronary artery of igiugig heart without angina pectoris Ascending aorta dilation (HCC) Thoracic aneurysm without mention of rupture Coronary artery disease involving igiugig coronary artery of igiugig heart without angina pectoris- Primary Osteoarthritis of right knee, unspecified osteoarthritis type Severe aortic insufficiency Typical atrial flutter (HCC)- Primary Severe aortic insufficiency Fibrosing mediastinitis Mediastinitis S/P TAVR (transcatheter aortic valve replacement) Mixed hyperlipidemia Coronary artery disease involving igiugig coronary artery of igiugig heart without angina pectoris Typical atrial flutter (HCC) [facility] Diagnosis Fibrosing mediastinitis- Primary Mediastinitis Coronary artery disease involving igiugig coronary artery of igiugig heart without angina pectoris Aortic insufficiency Aortic valve disorders Nonrheumatic aortic valve insufficiency- Primary Coronary artery disease involving igiugig coronary artery of igiugig heart without angina pectoris Fibrosing mediastinitis Mediastinitis Coronary artery disease involving igiugig coronary artery of igiugig heart without angina pectoris Nonrheumatic aortic valve insufficiency SOB (shortness of breath) Shortness of breath Coronary artery disease involving ig[place]ugig coronary artery of igiugig heart without angina pectoris 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 Coronary artery disease involving ig[place]ugig coronary artery of igiugig heart without angina pectoris Coronary artery disease involving ig[place]ugig coronary artery of igiugig heart without angina pectoris Nonrheumatic aortic valve insufficiency Elevated sed rate Elevated sedimentation rate Mixed hyperlipidemia Aortic valve stenosis, severe Aortic valve disorders Pre-operative cardiovascular examination Severe aortic stenosis- Primary Aortic valve disorders S/P TAVR (transcatheter aortic valve replacement) Severe aortic stenosis Aortic valve disorders Aortic valve stenosis, severe Aortic valve disorders Coronary artery disease involving igiugig coronary artery of igiugig heart without angina pectoris Ascending aorta dilation (HCC) Thoracic aneurysm without mention of rupture Coronary artery disease involving igiugig coronary artery of igiugig heart without angina pectoris- Primary Osteoarthritis of right knee, unspecified osteoarthritis type Severe aortic insufficiency Typical atrial flutter (HCC)- Primary Severe aortic insufficiency Fibrosing mediastinitis Mediastinitis S/P TAVR (transcatheter aortic valve replacement) Mixed hyperlipidemia Coronary artery disease involving igiugig coronary artery of igiugig heart without angina pectoris Atrial flutter, unspecified type (HCC)- Primary [facility] Diagnosis Fibrosing mediastinitis- Primary Mediastinitis Coronary artery disease involving igiugig coronary artery of igiugig heart without angina pectoris Aortic insufficiency Aortic valve disorders Nonrheumatic aortic valve insufficiency- Primary Coronary artery disease involving ig[place]ugig coronary artery of igiugig heart without angina pectoris Fibrosing mediastinitis Mediastinitis Coronary artery disease involving [place] coronary artery of igiugig heart without angina pectoris Nonrheumatic aortic valve insufficiency SOB (shortness of breath) Shortness of breath Coronary artery disease involving [place] coronary artery of ig[place]ug[place] heart without angina pectoris 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 Coronary artery disease involving [place] coronary artery of ig[place]ug[place] heart without angina pectoris Coronary artery disease involving [place] coronary artery of ig[place] heart without angina pectoris Nonrheumatic aortic valve insufficiency Elevated sed rate Elevated sedimentation rate Mixed hyperlipidemia Aortic valve stenosis, severe Aortic valve disorders Pre-operative cardiovascular examination Severe aortic stenosis- Primary Aortic valve disorders S/P TAVR (transcatheter aortic valve replacement) Severe aortic stenosis Aortic valve disorders Aortic valve stenosis, severe Aortic valve disorders Coronary artery disease involving igiugig coronary artery of igiugig heart without angina pectoris Ascending aorta dilation (HCC) Thoracic aneurysm without mention of rupture Coronary artery disease involving ig[place]ugig coronary artery of igiugig heart without angina pectoris- Primary Osteoarthritis of right knee, unspecified osteoarthritis type Severe aortic insufficiency Typical atrial flutter (HCC)- Primary Severe aortic insufficiency Fibrosing mediastinitis Mediastinitis S/P TAVR (transcatheter aortic valve replacement) Mixed hyperlipidemia Coronary artery disease involving igiugig coronary artery of igiugig heart without angina pectoris Atrial flutter, unspecified type (HCC) [facility] Attachments The following attachments cannot be sent through Care Everywhere. * Transcatheter Aortic Valve Implantation (LIONEL): Post-op (Paraguayan) [facility] Additional Instructions Ice your left eye several times a day for the next few days, follow-up with your PCP and return for any worsening of your symptoms.[facility] Work Phone: Hospital Discharge instructionsAdditional Instructions 1. Please discussed obtaining a polysomnography or a sleep study with your primary care physician or Dr. Danielle as we suspect he may have a component of sleep apnea and this could contribute to your atrial flutter. I do not think this is the only reason you have a flutter but it could contribute.[facility] Work Phone: Patient's home Plan of care [...] Management Goal:Pain Completed [facility]* Visit Details [facility] Discipline -Alf Problems Problem [...] Management Goal:Pain Completed documented in this encounter [place] Plan of care note* Visit Details [...] Care Plan Scheduled documented in this encounter [place] Plan of care note* Visit Details Visit 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 chair flex stretch and heel [...] 90% of instruction. 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 chair flex stretch and heel [...] 90% of instruction. [facility]* Visit Details Visit Type -POULTRY FARMER EGG Routine Visi t Discipline -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 Problems [...] 100% of instruction. 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 [facility]* [...] Care Plan Scheduled [facility] Actions Pt admitted in to [facility]. Reviewed care plan, medications, pain mgmt, ice and elevation, S&S to report, wound care and safety with ambulation. Patient/caregiver verbalized understanding and agreement. [facility] Actions Pt [facility] in to [facility]. Reviewed care plan, medications, pain mgmt, ice and elevation, S&S to report, wound care and safety with ambulation. Patient/caregiver verbalized understanding and agreement. [facility]* Actions Homebound Status [...] teach wound/skin/incision care as per discharge instructions Acid Adjuster Goals: Patient remains safe at home, Patient compliant with activity guidelines and Maximize mobility Rehab Potential: good for stated goals Discharge Plans: When goals are met. Narratives 68y/o female referred to therapy services s/p R TKA per Dr [...] be able to bend it more PT [facility] complete, PT 1x1, 3x2 Skilled interventions at [facility] included: Pt educated on icing 3-4x per [...] questions or concerns. [facility]* Actions Homebound [...] determined by P.T. [facility] Actions Homebound Status [...] determined by P.T. [facility]* Actions Homebound Status [...] determined by P.T. [facility]* Actions CP assessment [...] Home: 2-story house [facility] Actions Homebound Status [...] determined by P.T. [facility] Actions Pt [facility]. Reviewed care plan, medications, pain mgmt, ice and elevation, S&S to report, wound care and safety with ambulation. Patient/caregiver verbalized understanding and agreement. [facility]* Actions CP [...] Home: 2-story house [facility]* Actions Homebound Status [...] determined by P.T. documented [facility]* Actions Homebound [...] determined by P.T. documented [facility]* Actions Homebound [...] determined by P.T. [facility] Actions Pt [facility]. Reviewed care plan, medications, pain mgmt, ice and elevation, S&S to report, wound care and safety with ambulation. Patient/caregiver verbalized understanding and agreement. documented [facility]* Actions Homebound [...] determined by P.T. documented [facility] this [facility] (narrative)No reason for referral information availableWOhio [facility] Work Phone: Reason for visit Narrative* Auth/Cert Specialty Diagnoses / Procedures Referred By Yanet guerra Referred To Contact Diagnoses severe aortic stenosis Procedures NJ TRANSCATHETER TRANSAPICAL REPLACEMT AORTIC VALVE Transcatheter Aortic Valve Replacement TRANSCATHETER AORTIC VALVE REPLACEMENT FEMORAL APPROACH Referral ID Status Reason Start Date Expiration Date Visits Re quested Visits Authorized [id number] 1 1 [facility] Narrative* Auth/Cert (Routine) Specialty Diagnoses / Procedures Referred By Yanet t Referred To Contact Procedures NJ OFFICE/OUTPT VISIT,PROCEDURE ONLY Ablation-Complex Referral ID Status Reason Start Date Expiration Date Visits Re quested Visits Authorized [id number] 1 1 [facility] Assessments Diagnosis SOB (shortness of breath) Shortness of breath Diagnosis SOB (shortness of breath) Shortness of breath Coronary artery disease involving igiugig coronary artery of igiugig heart without angina pectoris Fibrosing mediastinitis Mediastinitis Nonrheumatic aortic valve insufficiency Diagnosis Nonrheumatic aortic valve insufficiency Summary Purpose Family History No Family History Records Found Relationship Condition Age at Onset Recorded Date/T ayleen mother Diabetes mellitus Unknown father Obstructive sleep apnea syndrome Unknown Advance Directives No Advanced Directives Records FoundDocuments on File Type Date Recorded 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 Advance Directives and Living Will Documents on File Type Date Recorded 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 Advance Directives and Livin g Will Advance Directives and Livin g Will 06/14/2019 12:00 AM Documents on File Type Date Recorded 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 Advance Directives and Livin g Will Advance Directives and Livin g Will 06/14/2019 12:00 AM Documents on File Type Date Recorded 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 Advance Directives and Livin g Will Advance Directives and Livin g Will 01/09/2022 7:51 AM Documents on File Type Date Recorded 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 Yes May 29, 2025 11:26pm Name of Medical Power of Traditional [place]ori Health Practitioner Andrei Omalley May 29, 2025 11:26pm Advance Directive Response Recorded Date/ Time Do you have a Healthcare Power of Traditional [place]ori Health Practitioner? Yes May 30, 2025 3:08am Name of Medical Power of Traditional [place]ori Health Practitioner Andrei Omalley-son May 30, 2025 3:08am Date Activated Date Inactivated Comments 06/09/2025 7:31 AM 06/09/2025 9:31 AM Date Activated Date Inactivated Comments 01/27/2024 4:06 PM 06/09/2025 7:31 AM Code Status reflects patient's informed choice. Date Activated Date Inactivated Comments 01/26/2024 8:56 AM 01/26/2024 9:32 PM Date Activated Date Inactivated Comments 01/21/2022 4:36 PM 01/22/2022 2:10 PM Date Activated Date Inactivated Comments 01/15/2022 6:56 AM 01/15/2022 9:17 AM Date Activated Date Inactivated Comments 06/09/2025 7:31 AM 06/09/2025 9:31 AM Date Activated Date Inactivated Comments 01/27/2024 4:06 PM 06/09/2025 7:31 AM Code Status reflects patient's informed choice. Date Activated Date Inactivated Comments 01/26/2024 8:56 AM 01/26/2024 9:32 PM Date Activated Date Inactivated Comments 01/21/2022 4:36 PM 01/22/2022 2:10 PM Date Activated Date Inactivated Comments 01/15/2022 6:56 AM 01/15/2022 9:17 AM Date Activated Date Inactivated Comments 07/03/2025 1:11 PM 07/03/2025 4:32 PM Date Activated Date Inactivated Comments 06/09/2025 7:31 AM 06/09/2025 9:31 AM Date Activated Date Inactivated Comments 01/27/2024 4:06 PM 06/09/2025 7:31 AM Code Status reflects patient's informed choice. Date Activated Date Inactivated Comments 01/26/2024 8:56 AM 01/26/2024 9:32 PM Date Activated Date Inactivated Comments 01/21/2022 4:36 PM 01/22/2022 2:10 PM Date Activated Date Inactivated Comments 07/03/2025 1:11 PM 07/03/2025 4:32 PM Date Activated Date Inactivated Comments 06/09/2025 7:31 AM 06/09/2025 9:31 AM Date Activated Date Inactivated Comments 01/27/2024 4:06 PM 06/09/2025 7:31 AM Code Status reflects patient's informed choice. Date Activated Date Inactivated Comments 01/26/2024 8:56 AM 01/26/2024 9:32 PM Date Activated Date Inactivated Comments 01/21/2022 4:36 PM 01/22/2022 2:10 PM Reason for Referral Status Reason Specialty Diagnoses / Procedures Referred By Contact Referred To Contact Pending Review Cardiology Diagnoses Nonrheumatic aortic valve insufficiency Procedures Echocardiogram complete Blaine Silveira MD [address] [place] [address] Status Reason Specialty Diagnoses / Procedures Referre d By Contact Referred To Contact Closed Cardiology Diagnoses Nonrheumatic aortic valve insufficiency Procedures [place] [address] [place] [address] Status Reason Specialty Diagnoses / Procedures Referred By Contact Referred To Contact Authorized Cardiology Diagnoses Coronary artery disease involving igiugig coronary artery of igiugig heart without angina pectoris Procedures [place] 12 [place] [address] [place] [address] Status Reason Specialty Diagnoses / Procedures Referred By Contact Referred To Contact New Request Radiology Diagnoses Coronary artery disease involving ig[place]ugig coronary artery of igiugig heart without angina pectoris Procedures NM Myocardial Perfusion Multiple SPECT Blaine Silveira MD [address] [place] [address] Status Reason Specialty Diagnoses / Procedures Referred By Contact Referred To Contact New Request Cardiology Diagnoses Nonrheumatic aortic valve insufficiency Procedures [place] [address] [place] [address] Status Reason Specialty Diagnoses / Procedures Referred By Contact Referred To Contact Pending Review Cardiology Diagnoses Nonrheumatic aortic valve insufficiency Procedures [place] [address] [place] [address] Specialty Diagnoses / Procedures Referred By Contac t Referred To Contact Cardiology Diagnoses Aortic valve stenosis, severe Pre-operative cardiovascular examination Procedures ECG 12 Lead Angelica Randall RN [facility] [address] [place] [address] Referral ID Status Reason Start Date Expiration Date V isits Requested Visits Authorized [id number] Authorized 12/31/2021 12/31/2022 1 1 Specialty Diagnoses / Procedures Referred By Contac t Referred To Contact Cardiology Diagnoses Aortic valve stenosis, severe Pre-operative cardiovascular examination Other specified symptoms and signs involving the circulatory and respiratory systems Procedures Carotid Duplex Dye, Angelica Taylor RN [facility] [address] [facility] [address] [facility] [address] [place] [id number] Referral ID Status Reason Start Date Expiration Date V isits Requested Visits Authorized [id number] Authorized 12/31/2021 12/31/2022 1 1 Specialty Diagnoses / Procedures Referred By Contac t Referred To Contact Cardiology Diagnoses S/P TAVR (transcatheter aortic valve replacement) Procedures ECG 12 Lead Angelica Randall, RN [place] [facility] [address] [place], [place] [id number] Referral ID Status Reason Start Date Expiration Date Visits Re quested Visits Authorized [id number] Closed 01/22/2022 01/22/2023 1 1 Specialty Diagnoses / Procedures Referred By Contac t Referred To Contact Cardiology Diagnoses S/P TAVR (transcatheter aortic valve replacement) Procedures Echocardiogram complete ToniaAngelica, RN [facility] [address] [facility] [place] [id number] Referral ID Status Reason Start Date Expiration Date Visits Re quested Visits Authorized [id number] Closed 01/22/2022 01/22/2023 1 1 Specialty Diagnoses / Procedures Referred By Contac t Referred To Contact Cardiac Rehabilitation Diagnoses S/P TAVR (transcatheter aortic valve replacement) ToniaAngelica, RN [facility] [address] [facility] [address] [place] [id number] Referral ID Status Reason Start Date Expiration Date V isits Requested Visits Authorized [id number] Authorized 01/21/2022 01/21/2023 1 1 Referral ID Status Reason Start Date Expiration Date Visits Re quested Visits Authorized [id number] Closed 06/19/2022 06/19/2023 1 1 Referral ID Status Reason Start Date Expiration Date V isits Requested Visits Authorized [id number] Authorized 06/19/2022 06/19/2023 1 1 Specialty Diagnoses / Procedures Referred By Contac t Referred To Contact Cardiology Diagnoses Osteoarthritis of right knee, unspecified osteoarthritis type Jass Pepe MD [address] [place] [address] [facility] [address] [facility] [place] [address] Referral ID Status Reason Start Date Expiration Date Visits Requested Visits Authorized [id number] Authorized Specialty Services Required/Pat ient's Best Interest 09/26/2024 1 1 Specialty Diagnoses / Procedures Referred By Contac t Referred To Contact Radiology Diagnoses Osteoarthritis of right knee, unspecified osteoarthritis type Procedures CT Knee Right Without Contrast Jass Pepe MD [address] [place] [address] Referral ID Status Reason Start Date Expiration Date V isits Requested Visits Authorized [id number] New Request 09/27/2023 09/26/2024 1 1 Specialty Diagnoses / Procedures Referred By Yanet t Referred To Contact Rehabilitation Diagnoses Status post total right knee replacement Jass Pepe MD [address] [place] [address] [address] Referral ID Status Reason Start Date Expiration Date V isits Requested Visits Authorized [id number] Authorized 02/01/2024 01/31/2025 1 1 History of Present Illness * Blaine Silveira MD - 06/06/2019 2:56 PM EDT Patient Name: Vickie Gonzalez [facility] MR #: [id number] Interventional Cardiology Blaine Silveira MD, [facility] 06/06/19 Dear Nicol Ibanez MD, Vickie oGnzalez was seen in follow up for : Problem Coronary Artery Disease Involving [place] Coronary Artery of [place] Heart Without Angina Pectoris CABG 2001 Cath 2010 all grafts open Aortic Insufficiency Moderate to Severe Asx AI-- same 12/2017 Fibrosing Mediastinitis Dx at time of cabg Assessment and Plan Coronary artery disease involving igiugig coronary artery of igiugig heart without angina pectoris Rare angina Doing [...] puffs 2 (two) times a day . OVEALGE-[id number] ORAL Take 1 tablet by mouth daily [...] cell carcinoma (BCC) of left lower extremity [id number] BMI 40.0-44.9, adult HTN (hypertension) Chief Complaint WOUND WOUND Reason for Visit Basal cell carcinoma (BCC) of left lower extremity [id number] BMI 40.0-44.9, adult HTN (hypertension) Basal cell carcinoma (BCC) of left lower extremity [id number] BMI 40.0-44.9, adult HTN (hypertension) Non-pressure chronic ulcer of left calf with fat layer exposed Chief Complaint WOUND WOUND WOUND LAC Reason for Visit Basal cell carcinoma (BCC) of left lower extremity [id number] BMI 40.0-44.9, adult HTN (hypertension) Basal cell carcinoma (BCC) of left lower extremity [id number] BMI 40.0-44.9, adult HTN (hypertension) Non-pressure chronic ulcer of left calf with fat layer exposed Basal cell carcinoma (BCC) of left lower extremity [id number] BMI 40.0-44.9, adult HTN (hypertension) Non-pressure chronic ulcer of left calf with fat layer exposed Chief Complaint WOUND WOUND WOUND LAC WOUND Reason for Visit Basal cell carcinoma (BCC) of left lower extremity [id number] BMI 40.0-44.9, adult HTN (hypertension) Basal cell carcinoma (BCC) of left lower extremity [id number] BMI 40.0-44.9, adult HTN (hypertension) Non-pressure chronic ulcer of left calf with fat layer exposed Basal cell carcinoma (BCC) of left lower extremity [id number] BMI 40.0-44.9, adult HTN (hypertension) Non-pressure chronic ulcer of left calf with fat layer exposed Basal cell carcinoma (BCC) of left lower extremity [id number] HTN (hypertension) Non-pressure chronic ulcer of left [...] arter y bypass May 30, 2025 2:39am Chief Complaint Admit Date NEW ONSET ATRIAL FLUTTER WITH RVR May 302024 2:29am NEW ONSET ATRIAL FLUTTER WITH RVR May 312024 3:36pm Reason for Visit Admit Date Atrial flutter with rapid ventricular re sponse May 30, 2025 2:29am MADDY (obstructive sleep apnea) May 30, 2025 2:29am Palpitations May 30, 2025 2:29a m Racing heart beat May 30, 2025 2:29a m S/P TAVR (transcatheter aortic valve rep lacement) May 30, 2025 2:29am Aortic valve insufficiency May 30 2:29am BMI 40.0-44.9, adult May 30, 2025 2:29 am Fibrosing mediastinitis May 30, 2025 2 :29am Status post double vessel coronary arter y bypass May 30, 2025 2:29am Chief Complaint Admit Date NEW ONSET ATRIAL FLUTTER WITH RVR May 302024 2:29am CHANGE May 31, 2025 1:26p m NEW ONSET ATRIAL FLUTTER WITH RVR May 312024 3:36pm SHOULDER RX HERE August 08, 2025 10:00am Hospital FU August 08, 2025 11:07am Reason for Visit Admit Date Palpitations May 30, 2025 2:29a m Racing heart beat May 30, 2025 2:29a m Status post double vessel coronary arter y bypass May 30, 2025 2:29am Aortic valve insufficiency May 30 2:29am Atrial flutter with rapid ventricular re sponse May 30, 2025 2:29am BMI 40.0-44.9, adult May 30, 2025 2:29 am Fibrosing mediastinitis May 30, 2025 2 :29am S/P TAVR (transcatheter aortic valve rep lacement) May 30, 2025 2:29am MADDY (obstructive sleep apnea) May 30, 2025 2:29am Additional Source Comments INFORMATION SOURCE (unrecogn ized section and content) DATE CREATED AUTHOR 05/24/2018 [facility] DATE CREATED AUTHOR AUTHOR'S ORGANIZ ATION 09/10/2022 [facility] DATE CREATED AUTHOR AUTHOR'S ORGANIZ ATION 01/25/2023 [facility] DATE CREATED AUTHOR AUTHOR'S ORGANIZ ATION 11/15/2023 [facility] DATE CREATED AUTHOR AUTHOR'S ORGANIZ ATION 02/16/2024 [facility] DATE CREATED AUTHOR AUTHOR'S ORGANIZ ATION 03/15/2024 [facility] DATE CREATED AUTHOR AUTHOR'S ORGANIZ ATION 06/18/2025 [facility] DATE CREATED AUTHOR AUTHOR'S ORGANIZ ATION 07/14/2025 [facility] DATE CREATED AUTHOR AUTHOR'S ORGANIZ ATION [facility]/[address] [facility] DATE CREATED AUTHOR AUTHOR'S ORGANIZ ATION 09/15/2025 [facility] Reason for Visit (unrecogniz ed section and content) Reason Comments Annual Exam no complaints or con cerns for todays visit Status Reason Specialty Diagnoses / Procedures Referre d By Contact Referred To Contact Closed Cardiology Diagnoses Nonrheumatic aortic valve insufficiency Procedures [place] [address] [place] [address] Reason Comments Annual Exam Jaw Pain Shortness of Breath Reason Comments Initial Visit (Intake) TAVR Reason Comments Follow-up 2 Week TAVR Reason Comments Follow-up 1 Year TAVR Reason Comments Follow-up Specialty Diagnoses / Procedures Referred By Yanet guerra Referred To Contact Cardiology Diagnoses Osteoarthritis of right knee, unspecified osteoarthritis type Jass Pepe MD [address] [place] [address] Blaine Silveira MD [address] [phone] Referral ID Status Reason Start Date Expiration Date V isits Requested Visits Authorized [id number] Closed Specialty Services Required/Leda ent's Best Interest 09/27/2023 09/26/2024 1 1 Reason Onset Date Comments Medication Refill 01/11/2024 Reason Comments Pre-op Exam Specialty Diagnoses / Procedures Referred By Yanet t Referred To Contact Referral ID Status Reason Start Date Expiration Date Visits Re quested Visits Authorized [id number] 1 1 Reason Onset Date Comments Medication Refill 02/08/2024 Reason Comments Follow-up Suture / Staple Removal Reason Comments 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 Specialty Diagnoses / Procedures Referred By Yanet guerra Referred To Contact Rehabilitation Diagnoses Status post total right knee replacement Jass Pepe MD [address] [place] [address] [facility] [place] [address] [place] [address] Referral ID Status Reason Start Date Expiration Date V isits Requested Visits Authorized [id number] Authorized 02/01/2024 01/31/2025 13 199 Specialty Diagnoses / Procedures Referred By Yanet guerra Referred To Contact Rehabilitation Diagnoses Status post total right knee replacement Jass Pepe MD [address] [phone] [facility] [address] [place] [address] Reason Comments Follow-up Reason Onset Date Comments Medication Refill 07/04/2025 Assessment & Plan Note - Blaine Silveira [...] issues Associated Problem(s): Coronary artery disease involving igiugig coronary artery of igiugig heart without angina pectoris Rare angina Doing well, Medications reviewed and will continue current meds Followup 1 year documented in this encounter Care Teams (unrecognized sec tion and content) Defense Attorney Relationship Specialty Start Date End Date Nicol Ibanez MD [address] [place] [address] PCP - General 08/26/11 Jass Pepe MD [address] [place] [address] Consulting Physician Orthopedic Surgery 05/20/16 Defense Attorney Relationship Specialty Start Date End Date Nicol Ibanez MD [address] [place] [address] PCP - General 08/26/11 Jass Pepe MD [address] [place] [address] Consulting Physician Orthopedic Surgery 05/20/16 Defense Attorney Relationship Specialty Start Date End Date Nicol Ibanez MD [address] [place] [address] PCP - General 08/26/11 Jass Pepe MD [address] [place] [address] Consulting Physician Orthopedic Surgery 05/20/16 Defense Attorney Relationship Specialty Start Date End Date Nicol Ibanez MD [address] [place] [address] PCP - General 08/26/11 Jass Pepe MD [address] [place] [address] Consulting Physician Orthopedic Surgery 05/20/16 Defense Attorney Relationship Specialty Start Date End Date Nicol Ibanez MD [address] [place] [address] PCP - General 08/26/11 Jass Pepe MD [address] [place] [address] Consulting Physician Orthopedic Surgery 05/20/16 Defense Attorney Relationship Specialty Start Date End Date Nicol Ibanez MD [address] [place] [address] PCP - General 08/26/11 Jass Pepe MD [address] [place] [address] Consulting Physician Orthopedic Surgery 05/20/16 Defense Attorney Relationship Specialty Start Date End Date Nicol Ibanez MD [address] [place] [address] PCP - General 08/26/11 Jass Pepe MD [address] [place] [address] Consulting Physician Orthopedic Surgery 05/20/16 Defense Attorney Relationship Specialty Start Date End Date Nicol Ibanez MD [address] [place] [address] PCP - General 08/26/11 Jass Pepe MD [address] [place] [address] Consulting Physician Orthopedic Surgery 05/20/16 Defense Attorney Relationship Specialty Start Date End Date Nicol Ibanez MD [address] [place] [address] PCP - General 08/26/11 Jass Pepe MD [address] [place] [address] Consulting Physician Orthopedic Surgery 05/20/16 Defense Attorney Relationship Specialty Start Date End Date Nicol Ibanez MD [address] [place] [address] PCP - General 08/26/11 Jass Pepe MD [address] [place] [address] Consulting Physician Orthopedic Surgery 05/20/16 Defense Attorney Relationship Specialty Start Date End Date Nicol Ibanez MD [address] [place] [address] PCP - General 08/26/11 Jass Pepe MD [address] [place] [address] Consulting Physician Orthopedic Surgery 05/20/16 Defense Attorney Relationship Specialty Start Date End Date Nicol Ibanez MD [address] [place] [address] PCP - General 08/26/11 Jass Pepe MD [address] [place] [address] Consulting Physician Orthopedic Surgery 05/20/16 Team Status: [...] MD Attending Provider, Emergency Provi aleksandar Active Defense Attorney Relationship Specialty Start Date End Date Nicol Ibanez MD [address] [place] [address] PCP - General 08/26/11 Jass Pepe MD [address] [place] [address] Consulting Physician Orthopedic Surgery 05/20/16 Defense Attorney Relationship Specialty Start Date End Date Nicol Ibanez MD [address] [place] [address] PCP - General 08/26/11 Jass Pepe MD [address] [place] [address] Consulting Physician Orthopedic Surgery 05/20/16 Team Status: Active Member Role Status Dates Dr. Nicol Ibanez MD Family Provider Active Dr. Kirill Newell MD Primary Care Provider Active Team Status: Inactive Member Role Status Dates Dr. Kirill Newell MD Primary Care Provide r, Attending Provider, Referring Provider Active Defense Attorney Relationship Specialty Start Date End Date Nicol Ibanez MD [address] [place] [address] PCP - General 08/26/11 Jass Pepe MD [address] [place] [address] Consulting Physician Orthopedic Surgery 05/20/16 Defense Attorney Relationship Specialty Start Date End Date Nicol Ibanez MD [address] [place] [address] PCP - General 08/26/11 Jass Pepe MD [address] [place] [address] Consulting Physician Orthopedic Surgery 05/20/16 Defense Attorney Relationship Specialty Start Date End Date Nicol Ibanez MD [address] [place] [address] PCP - General 08/26/11 Jass Pepe MD [address] [place] [address] Consulting Physician Orthopedic Surgery 05/20/16 Defense Attorney Relationship Specialty Start Date End Date Nicol Ibanez MD [address] [place] [address] PCP - General 08/26/11 Jass Pepe MD [address] [place] [address] Consulting Physician Orthopedic Surgery 05/20/16 Defense Attorney Relationship Specialty Start Date End Date Nicol Ibanez MD [address] [place] [address] PCP - General 08/26/11 Jass Pepe MD [address] [place] [address] Consulting Physician Orthopedic Surgery 05/20/16 Defense Attorney Relationship Specialty Start Date End Date Nicol Ibanez MD [address] [place] [address] PCP - General 08/26/11 Jass Pepe MD [address] [place] [address] Consulting Physician Orthopedic Surgery 05/20/16 Defense Attorney Relationship Specialty Start Date End Date Nicol Ibanez MD [address] [place] [address] PCP - General 08/26/11 Jass Pepe MD [address] [place], [facility] Consulting Physician Orthopedic Surgery 05/20/16 Defense Attorney Relationship Specialty Start Date End Date Nicol Ibanez MD [address] [place] [address] PCP - General 08/26/11 Jass Pepe MD [address] [place] [address] Consulting Physician Orthopedic Surgery 05/20/16 Defense Attorney Relationship Specialty Start Date End Date Nicol Ibanez MD [address] [place] [address] PCP - General 08/26/11 Jass Pepe MD [address] [place] [address] Consulting Physician Orthopedic Surgery 05/20/16 Defense Attorney Relationship Specialty Start Date End Date Nicol Ibanez MD [address] [place] [address] PCP - General 08/26/11 Jass Pepe MD [address] [place] [address] Consulting Physician Orthopedic Surgery 05/20/16 Defense Attorney Relationship Specialty Start Date End Date Nicol Ibanez MD [address] [place] [address] PCP - General 08/26/11 Jass Pepe MD [address] [place] [address] Consulting Physician Orthopedic Surgery 05/20/16 Defense Attorney Relationship Specialty Start Date End Date Nicol Ibanez MD [address] [place] [address] PCP - General 08/26/11 Jass Pepe MD [address] [place] [address] Consulting Physician Orthopedic Surgery 05/20/16 Defense Attorney Relationship Specialty Start Date End Date Nicol Ibanez MD [address] [place] [address] PCP - General 08/26/11 Jass Pepe MD [address] [place] [address] Consulting Physician Orthopedic Surgery 05/20/16 Defense Attorney Relationship Specialty Start Date End Date Nicol Ibanez MD [address] [place] [address] PCP - General 08/26/11 Jass Pepe MD [address] [place] [address] Consulting Physician Orthopedic Surgery 05/20/16 Defense Attorney Relationship Specialty Start Date End Date Nicol Ibanez MD [address] [place] [address] PCP - General 08/26/11 Jass Pepe MD [address] [place] [address] Consulting Physician Orthopedic Surgery 05/20/16 Defense Attorney Relationship Specialty Start Date End Date Nicol Ibanez MD [address] [place] [address] PCP - General 08/26/11 Jass Pepe MD [address] [place] [address] Consulting Physician Orthopedic Surgery 05/20/16 Defense Attorney Relationship Specialty Start Date End Date Nicol Ibanez MD [address] [place] [address] PCP - General 08/26/11 Jass Pepe MD [address] [place] [address] Consulting Physician Orthopedic Surgery 05/20/16 Defense Attorney Relationship Specialty Start Date End Date Nicol Ibanez MD [address] [place] [address] PCP - General 08/26/11 Jass Pepe MD [address] [place] [address] Consulting Physician Orthopedic Surgery 05/20/16 Defense Attorney Relationship Specialty Start Date End Date Nicol Ibanez MD [address] [place] [address] PCP - General 08/26/11 Jass Pepe MD [address] [place] [address] Consulting Physician Orthopedic Surgery 05/20/16 Defense Attorney Relationship Specialty Start Date End Date Nicol Ibanez MD [address] [place] [address] PCP - General 08/26/11 Jass Pepe MD [address] [place] [address] Consulting Physician Orthopedic Surgery 05/20/16 Defense Attorney Relationship Specialty Start Date End Date Nicol Ibanez MD [address] [place] [address] PCP - General 08/26/11 Jass Pepe MD [address] [place] [address] Consulting Physician Orthopedic Surgery 05/20/16 Defense Attorney Relationship Specialty Start Date End Date Nicol Ibanez MD [address] [place] [address] PCP - General 08/26/11 Jass Pepe MD [address] [place] [address] Consulting Physician Orthopedic Surgery 05/20/16 Defense Attorney Relationship Specialty Start Date End Date Nicol Ibanez MD [address] [place] [address] PCP - General 08/26/11 Jass Pepe MD [address] [place] [address] Consulting Physician Orthopedic Surgery 05/20/16 Team Status: [...] Attending Provider Active Start: May 30, 2025 Team Status: Inactive Member Role/Relationship Status Dates Dr. Kirill Newell MD Primary Care Provider Active Start: May 30, 2025 End: May 31, 2025 Dr. Remy Rai DO Emergency Provider Active Start: May 30, 2025 End: May 31, 2025 Dr. Nicol Silva DO Admit Provider Active Start: May 30, 2025 End: May 31, 2025 Dr. Nicol Silva DO Other Provider Active Start: May 30, 2025 End: May 31, 2025 Dr. Shagufta Garcia DO Attending Provider Active S tart: May 30, 2025 End: May 31, 2025 Dr. Addy Valencia MD Other Provider Active Start: May 30, 2025 End: May 31, 2025 Dr. Marcin Cason MD Other Provider Active St art: May 30, 2025 End: May 31, 2025 Dr. Arun Vogel MD Other Provider Active Star t: May 30, 2025 End: May 31, 2025 Dr. Francesco Partida MD Other Provider Active Sta rt: May 30, 2025 End: May 31, 2025 Dr. Jesus Tam MD Other Provider Active Star t: May 30, 2025 End: May 31, 2025 Dr. Francisco Cox MD Other Provider Active Start : May 30, 2025 End: May 31, 2025 Dr. Dianne Perez MD Other Provider Active Star t: May 30, 2025 End: May 31, 2025 Dr. Lindsey Finley MD Other Provider Active St art: May 30, 2025 End: May 31, 2025 Dr. Gen Ruiz MD Other Provider Active Start: May 30, 2025 End: May 31, 2025 Dr. Maverick Velasquez MD Other Provider Active S tart: May 30, 2025 End: May 31, 2025 Dr. Aníbal Witt MD Other Provider Active Start: May 30, 2025 End: May 31, 2025 Irena Finch DIRECTOR BUSINESS DEVELOPMENT, DIRECTOR BUSINESS DEVELOPMENT-C Other Provider Active Start : May 30, 2025 End: May 31, 2025 Alena Silver PA, PA Other Provider Active Start: May 30, 2025 End: May 31, 2025 LEVI Clemens Other Provider Active Start: May 30, 2025 End: May 31, 2025 Team Status: Active Member Role/Relationship Status Dates Dr. Kirill Newell MD Primary Care Provider Active Start: May 30, 2025 Dr. Dianne Perez MD Attending Provider Active Start: May 30, 2025 Team Status: Active Member Role/Relationship Status Dates Dr. Kirill Newell MD Primary Care Provider Active Start: May 31, 2025 Dr. Remy Rai DO Emergency Provider Active Start: May 31, 2025 Dr. Nicol Silva , Admit Provider Active Start: May 31, 2025 Dr. Nicol Silva DO Other Provider Active Start: May 31, 2025 Dr. Shagufta Garcia DO Attending Provider Active S tart: May 31, 2025 Dr. Shagufta Garcia DO Other Provider Active Start : May 31, 2025 Dr. Addy Valencia MD Other Provider Active Start: May 31, 2025 Dr. Marcin Cason MD Other Provider Active St art: May 31, 2025 Dr. Arun Vogel MD Other Provider Active Star t: May 31, 2025 Dr. Francesco Partida MD Other Provider Active Sta rt: May 31, 2025 Dr. Jesus Tam MD Other Provider Active Star t: May 31, 2025 Dr. Francisco Cox MD Other Provider Active Start : May 31, 2025 Dr. Dianne Perez MD Other Provider Active Star t: May 31, 2025 Dr. Lindsey Finley MD Other Provider Active St art: May 31, 2025 Dr. Gen Ruiz MD Other Provider Active Start: May 31, 2025 Dr. Maverick Velasquez MD Other Provider Active S tart: May 31, 2025 Dr. Aníbal Witt MD Other Provider Active Start: May 31, 2025 Irena Finch DIRECTOR BUSINESS DEVELOPMENT, DIRECTOR BUSINESS DEVELOPMENT-C Other Provider Active Start : May 31, 2025 Alena SIMS, PA Other Provider Active Start: May 31, 2025 LEVI Clemens Other Provider Active Start: May 31, 2025 Defense Attorney Relationship Specialty Start Date End Date Nicol Ibanez MD [address] [place] [address] PCP - General 08/26/11 Jass Pepe MD [address] [place] [address] Consulting Physician Orthopedic Surgery 05/20/16 Defense Attorney Relationship Specialty Start Date End Date Nicol Ibanez MD [address] [place] [address] PCP - General 08/26/11 Jass Pepe MD [address] [place] [address] Consulting Physician Orthopedic Surgery 05/20/16 Defense Attorney Relationship Specialty Start Date End Date Nicol Ibanez MD [address] [place] [address] PCP - General 08/26/11 Jass Pepe MD [address] [place] [address] Consulting Physician Orthopedic Surgery 05/20/16 Defense Attorney Relationship Specialty Start Date End Date Nicol Ibanez MD [address] [place], [facility] PCP - General 08/26/11 Jass Pepe MD [address] [place] [address] Consulting Physician Orthopedic Surgery 05/20/16 Defense Attorney Relationship Specialty Start Date End Date Nicol Ibanez MD [address] [place], [facility] PCP - General 08/26/11 Jass Pepe MD [address] [place] [address] Consulting Physician Orthopedic Surgery 05/20/16 Defense Attorney Relationship Specialty Start Date End Date Nicol Ibanez MD [address] [place] [address] PCP - General 08/26/11 Jass Pepe MD [address] [place] [address] Consulting Physician Orthopedic Surgery 05/20/16 Defense Attorney Relationship Specialty Start Date End Date Nicol Ibanez MD [address] [place] [address] PCP - General 08/26/11 Jass Pepe MD [address] [place] [address] Consulting Physician Orthopedic Surgery 05/20/16 Team Status: Active Member Role/Relationship Status Dates Dr. Kirill Newell MD Primary Care Provider Active Start: May 31, 2025 End: May 31, 2025 Dr. Francisco Cox MD Attending Provider Active S tart: May 31, 2025 End: May 31, 2025 Dr. Francisco Cox MD Referring Provider Active S tart: May 31, 2025 End: May 31, 2025 Team Status: Active Member Role/Relationship Status Dates Dr. Kirill Newell MD Primary Care Provider Active Start: May 31, 2025 Dr. Remy Rai DO Emergency Provider Active Start: May 31, 2025 Dr. Nicol Silva DO Admit Provider Active Start: May 31, 2025 Dr. Nicol Silva DO Other Provider Active Start: May 31, 2025 Dr. Shagufta Garcia DO Attending Provider Active S tart: May 31, 2025 Dr. Shagufta Garcia DO Other Provider Active Start : May 31, 2025 Dr. Addy Valencia MD Other Provider Active Start: May 31, 2025 Dr. Marcin Cason MD Other Provider Active St art: May 31, 2025 Dr. Arun Vogel MD Other Provider Active Star t: May 31, 2025 Dr. Francesco Partida MD Other Provider Active Sta rt: May 31, 2025 Dr. Jesus Tam MD Other Provider Active Star t: May 31, 2025 Dr. Francisco Cox MD Other Provider Active Start : May 31, 2025 Dr. Dianne Perez MD Other Provider Active Star t: May 31, 2025 Dr. Lindsey Finley MD Other Provider Active St art: May 31, 2025 Dr. Gen Ruiz MD Other Provider Active Start: May 31, 2025 Dr. Maverick Velasquez MD Other Provider Active S tart: May 31, 2025 Dr. Aníbal Witt MD Other Provider Active Start: May 31, 2025 Irena Finch DIRECTOR BUSINESS DEVELOPMENT, DIRECTOR BUSINESS DEVELOPMENT-C Other Provider Active Start : May 31, 2025 Alena Silver PA, PA Other Provider Active Start: May 31, 2025 LEVI Clemens Other Provider Active Start: May 31, 2025 Team Status: Active Member Role/Relationship Status Dates Dr. Kirill Newell MD Primary Care Provider Active Start: August 08, 2025 Dr. Kirill Newell MD Attending Provider Active St art: August 08, 2025 Dr. Kirill Newell MD Referring Provider Active St art: August 08, 2025 Team Status: Inactive Member Role/Relationship Status Dates Dr. Kirill Newell MD Primary Care Provider Active Start: August 08, 2025 End: August 08, 2025 Dr. Kirill Newell MD Referring Provider Active St art: August 08, 2025 End: August 08, 2025 Dr. Jeff Danielle DO Attending Provider Active S tart: August 08, 2025 End: August 08, 2025 Defense Attorney Relationship Specialty Start Date End Date Nicol Ibanez MD [address] [place] [address] PCP - General 08/26/11 Jass Pepe MD [address] [place] [address] Consulting Physician Orthopedic Surgery 05/20/16 Defense Attorney Relationship Specialty Start Date End Date Kirill Newell MD [address] [facility] [address] [place] [address] PCP - General Family Medicine 08/23/25 Jass Pepe MD [address] [place] [phone] Consulting Physician Orthopedic Surgery 05/20/16 Scheduled Active [...] RN)[id number] (Stopped - Provider: Gaby [place] RN) 0414 [...] Post Procedure, DO NOT CRUSH OR CHEW. 1743 (Given - Provider: Myla Hubbard, JERRY) 08 (Given - Provider: Lisa Guzmán, JERRY) potassium chloride SA (K-DUR,KLOR-CON) CR tablet 20 [...] PLACED TUBE OR TUBE less than 14 [place] For tube administration: dissolve tablet(s) with 4 [...] 2015 (Given - Provider: Gaby [place] RN) 804 (Given - Provider: Lisa Guzmán, JERRY) sodium chloride (PF) (NS) flush 5 mL(Linked Group 1) 5 mL, Intravenous, Every 8 hours scheduled, First dose on Thu01/21/22 at 1730, PACU to Post Procedure, Saline lock 1748 (Given - Provider: Myla Hubbard RN)2203 (Given - Provider: Gaby [place] RN) 0534 (Given - Provider: Gaby [place] JERRY) Continuous Medication Order 01/20/2022 01/21/2022 01/22/2022 [...] 1730 (Canceled Entry - Provider: Myla Hubbard, RN) PRN Medication Order 01/20/2022 01/21/2022 01/22/2022 [...] Post Procedure 1647 (Given - Provider: Myla Hubbard, JERRY) perflutren lipid microspheres (DEFINITY) 0.143 mg/mL solution [...] RN)221 (Stopped - Provider: Gaby [place] RN) 0410 [...] Thu01/21/22 at 1636, PACU (only), Arterial and Filer Annetta Lines at 300 mmHg 1738 (Canceled [...] BE BASED ON THE PRIMARY CLINICAL RECORDS. [facility]. provides no warranty or guarantee of the accuracy or completeness of information in this document.
--- OUTSIDE RECORDS SUMMARY | 2025-09-19 19:30 | XMS RPT_ITS | CCD ---
Author Organization [facility] CliniSydc Care Team Providers Care Program Director Air Talent Name Role Phone Nicol Ibanez Unavailable Unavailable Jass Pepe Unavailable Blaine Silveira Unavailable Unavailable Blaine Silveira Unavailable Unavailable Nicol Ibanez Primary Care Provider Jass Pepe Unavailable [phone] Nicol Ibanez Primary Care Provider Jass Pepe [...] Fanning, Robert Lynne Attending Unavailable Fanning, Robert Lynen Attending Unavailable Fanning, Robert Lynne Attending Unavailable Fanning, Robert Lynne Attending Unavailable Fanning, Robert Lynne Attending Unavailable Fanning, Robert Lynne Attending Unavailable Fanning, Robert Lynne Attending Unavailable Fanning, Robert Lynne Attending Unavailable Marcelle HARPER, Nicol Osborn Primary Care Provider Afshin HARPER, Jass Maldonado Unavailable NICOL IBANEZ Primary Care Unavailable [facility]OL [facility] Primary Care Unavailable [...] JASS PEPE Admitting Unavailab le AFSHIN, JASS MLADONADO Referring Unavailab le TOMNICOL ROCHE Primary Care Unavailable JASS PEPE Admitting Unavailab le AFSHIN, JASS MALDONADO Referring Unavailab le TOMCHAK, NICOL OSBORN Primary Care Unavailable SOFÍA, FLORES Attending Unavailable AFSHIN, JASS MALDONADO Admitting Unavailab le AFSHIN, JASS MALDONADO Referring Unavailab le TOMCHAK, NICOL OSBORN Primary Care Unavailable SOFÍA, FLORES Attending Unavailable AFSHIN, JASS MALDONADO Attending Unavailab le AFSHIN, JASS MALDONADO Admitting [...] Newell MD, Dr. Valdez Primary Care Provider [facility], Dr. Alberto Emergency Provider [phone] [facility], Dr. Baez Admit Provider Unavail able [facility], Dr. Baez Attending Provider Thomas Newell MD, Dr. Valdez Primary Care Provider [facility], Dr. Alberto Emergency Provider [facility], Dr. Baez Admit Provider Unavail able Silva [...] Chris HARPER, Dr. Dean Other Provider Malia HAPRER, Dr. Florez Other Provider Sara HARPER, Dr. Blevins Other Provider Eva HARPER, Dr. Temple Other Provider Eduar HARPER, Dr. Spangler Other Provider [facility] MINCEMEAT MAKER-C, Irena Other Provider Alena Mariano Other Provider David Rush Other Provider Chris HARPER, Dr. Dean Attending Provider Jose RODRIGUEZ, Dr. Eagle Other Provider Jass Pepe MD Unavailable REMY SEGURA Attending Unavaila REMY Patel Admitting Unavaila NICOL Vivas Primary Care Unavailable NICOL IBANEZ Primary Care Unavailable REMY SEGURA Referring Unavaila REMY Patel Attending Unavaila andres Cox MD, Dr. Singh Attending Provider [phone] Kenny HARPER, Dr. Singh Referring Provider Dr. iKrill Newell MD Attending Provider [phone] Reece HARPER, Dr. Valdez Referring Provider Dr. Jeff Danielle DO Attending Provider Kirill Newell MD Primary Care Provider BRENDAN MACIEL Admitting Unavailable BRENDAN MACIEL Attending Unavailable KIRILL NEWELL Primary Care Unavailable NICOL IBANEZ Primary Care Unavailable BLAINE SILVEIRA Admitting Unavailable BLAINE SILVEIRA Attending Unavailable NICOL IBANEZ Primary Care Unavailable BLAINE SILVEIRA Attending Unavailable Newell, Kirill Primary Care Unavailable Kenny, Inez Attending Unavailable Kenny, Francisco Referring Unavailable Newell, [...] Consulting Unavailable Anel, Jesus Consulting Unavailable Kenny, Inez Consulting Unavailable Belal, Farouk Consulting Unavailable Lindsey Finley Consulting Unavailable Nagajothi, Nagapradee Consulting Unavailabl e Satti, Maverick Consulting Unavailable [place]branch, Aníbal Consulting Unavailable Stef CABALLERO, Irena Aguirre [...] Consulting Unavailable Anel, Jesus Consulting Unavailable Kenny, Inez Consulting Unavailable Belal, Farouk Consulting Unavailable Lindsey Finley Consulting Unavailable Nagajothi, Nagapradee Consulting Unavailabl e Satti, Maverick Consulting Unavailable [place], Aníbal Consulting Unavailable Roof MINCEMEAT MAKER, Irena H Consulting Unavailable Alena Mariano M Consulting Unavail able Todd David Consulting Unavailable Jose, Shagufta Consulting Unavailable Allergies Allergy Classification Reported Allergen(s) Allergy Type Date of Onset Reaction(s) Facility NSAIDs (4 sources) Naproxen Drug Allergy 5 [facility] Quinolones (antibiotic) (4 sources) levoFLOXacin Drug Allergy 5 [facility] (20 sources) levoFLOXacin; Translations: [LEVOFLOXACIN] Propensity to adverse reactions to drug 5 [facility] Work Phone: Comment on above: bilat lower ext. (20 sources) naproxen; Translations: [NAPROXEN] Propensity to adverse reactions to drug 5 [facility] Work Phone: (1 source) ALLERGIES NOT ON FILE; Translations: [ALLERGIES NOT ON FILE] Propensity to adverse reactions (disorder) [facility] 2 Repository (1 source) levoFLOXacin Drug Allergy 5 [facility] Repository (1 source) Naproxen Drug Allergy 5 [facility] Repository Medications Current Medications Medication Drug Class(es) [...] 29, 2018 1:00am March 16, 2018 9:23am BZNVVVO-BRWVCDSII-BAPE ORAL (20 sources) take 1 tablet by mouth once daily RGOVEMT-PVECKZZQX-YOXO ORAL Take 1 tablet by mouth daily . Suspended take 1 tablet by mouth once umm y MTZHIYC-OPBELIZHN-XYOT ORAL Take 1 tablet by mouth daily . Active take 1 tablet by mouth once umm y DOGQJAT-OTKFBXUGA-JXXG ORAL Take 1 tablet by mouth daily . 0 take 1 tablet by mouth once umm y NJEUZEO-KRRKTMIUT-SFXK ORAL Take 1 tablet by mouth daily . 0 Suspended take 1 tablet by mouth once umm y RWDEUGR-IRHREKXQN-KBBE ORAL Take 1 tablet by mouth daily . 0 Active take 1 tablet by mouth twice erinn ly YDMIXMS-TUZXLOCZQ-ZWHQ ORAL Take 1 tablet by mouth 2 [...] spray (3 sources) Anticholinergic Start: 05-29-2025 Ipratropium Bristol 21 mcg (0.03 %) spray,non-aerosol Active INTRANASAL [...] Take by mouth daily . 0 Active Pmn64-Ambwrbebv-Sgkp-Ydvs-Zi os (Calming Day) 350-250 mg/7.8 gram powder (1 source) Start: 08-08-2025 Ekk65-Bqhglxgsi-Dqyq-Gyiy-Hh os (Calming Day) 350-250 mg/7.8 gram powder [...] release oral tablet (20 sources) beta-A tracey [facility] Carmenzae r Start: 05-31-2025 Metoprolol Succinate [...] (two) times a day . 06/06/2025 Discontinued [id number] 200 actuat albuterol 0.09 mg/actuat metered dose [...] route twice daily azelastine-fluticasone (DYMISTA) 137-50 mcg/spray [place] Instill 1 spray into each nostril 2 [...] Active docusate sodium 50 mg / sennosides, snf 8.6 mg oral tablet (1 source) Start: [...] 11:14am Start: 05-29-2025 take 1 tablet by abel th once daily Magnesium 250 mg tablet Active 250 mg PO DAILY May 29, 2025 12:00am 50 ml magnesium sulfate 40 mg/ml injection (1 source) Start: 01-21-2022 End: 01-21-2022 magnesium sulfate 2 g in sterile water (SW) 50 mL IVPB naloxone (NARCAN) injection 0.1 mg (1 source) Start: 01-21-2022 End: 01-22-2022 naloxone (NARCAN) injection 0.1 mg nystatin [id number] unt/ml oral suspension (20 sources) Polyene Antifungal Start: 08-10-2018 End: 02-28-2019 take [id number] [IU] by mouth three times daily Nystatin 100,000 unit/mL suspension Discontinued 125153 U PO THREE TIMES A DAY 60 [...] 0-10 mL of mixture polyethylene glycol 3350 99982 mg powder for oral solution (10 sources) [...] MG tablet Indications: 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 Take 1 (one) [...] End: 01-21-2022 sodium chloride 0.9% (NS) Tiotropium Bristol (10 sources) Anticholinergic Start: 12-22-2017 End: 12-22-2017 take 2.5 ug by inhalation once daily Tiotropium Bristol (Spiriva Respimat) 2.5 mcg/actuation mist Discontinued 2 NMA INHALATION daily December 22, 2017 1:00am December 22, 2017 11:44am Start: 12-22-2017 End: 12-22-2017 take 1 puff(s) by inhalation once daily Tiotropium Bristol (Spiriva Respimat) 2.5 mcg/actuation mist Discontinued 2 PUFF INHALATION daily December 22, 2017 12:00am December 22, 2017 10:44am Start: 12-22-2017 End: 12-22-2017 take 1 puff(s) by inhalation once daily Tiotropium Bristol (Spiriva Respimat) 2.5 mcg/actuation mist Discontinued 2 [...] heart disease (20 sources) 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cahto artery; Translations: [Atherosclerotic heart disease of cahto coronary artery without angina pectoris] Onset: 11-05-2015 [...] - PT (1)on Re-Evaluation - PT (1) 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 [address] [place] [address] / REEVALUATION / MEDICARE RECERTIFICATION PHYSICAL THERAPY MR#: [id number] Acct: [id number] Name: VICKIE GONZALEZ Rep #: [id number] : 1955 69 From: Alber Umana PT, [...] do not hesitate to contact me at [phone] by phone or if you have questions or concerns regarding this new plan of care! Sincerely, Alber Umana PT, Cert MDT, OCS 08/31/25 1231 CC: Dr. Kirill Newell MD JUAQUIN Signed For Medicare only, by signing this I certify the plan of care. Physicians Signature Date Normal [facility] ECG 12 leadon 08-23-2025 Atrial Rate [facility] [place] [facility] P-R Interval [facility] Q-T Interval [facility] Q-T Interval (corrected) [facility] QRS Duration [facility] QTC Calculation (Bezet) [facility] [place] [facility] [place] [facility] Vent[facility] Pulmonary Visit Reporton Pulmonary Visit Report [facility] [address] [place] [address] OFFICE VISIT Date of Service: 08/08/25 MR#: [id number] Acct: [id number] Name: VICKIE GONZALEZ Rep #: [id number] : 1955 Provider: Dr. Jeff Danielle DO Age/Sex: 69/F Location: [facility].PM[facility] Status: Signed Assessment and Plan Assessment and [...] room air Intake Visit Reasons: Hospital FU Cigar Wrapper Required: No DME Vendor: NO Accompanied by: [...] PO QDAY 08/08/25 08/08/25 Hi story mag carb,olef-jvdik-cfpv-t aur-inos g PO 08/08/25 08/08/25 History 350 mg-250 mg/7.8 (more content not included)... Normal [facility] Inital Evaluation (1) - PTon 08-03-2025 Inital Evaluation (1) - PT 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 [address] [place] [address] [address] [place] [address] / REHABILITATION SERVICES INITIAL EVALUATION MR#: [id number] Acct: [id number] Name: VICKIE GONZALEZ Rep #: [id number] : 1955 69 From: Alber Umana PT, [...] improve hea (more content not included)... Normal [facility] ECG 12 leadon 07-03-2025 [facility] Atrial flutter ABNORMAL RHYTHM [facility] ECG 12 leadOrdered By: Katy Segura on 07-03-2025 [facility] Work Phone: ECHOCARDIOGRAM TRANSESOPHAGE Nain 07-03-2025 ECHOCARDIOGRAM [...] Segura MD Reading Physician: Bhavik Simms DO Licensed Psychiatric Technician: Geraldo Carlos RDCS Primary Nurse: Kaia Farmer RN Secondary Nurse: Radha Hodges Attending Physician: Remy Segura MD Patient Info [place] [facility] [place] [facility] [facility] Name: Vickie Gonzalez Age: 69 years : 1955 Gender: Female Ht: 167 cm Wt: 118 kg BSA: 2.40 m2 HR: 111 bpm BP: 147 / 89 mmHg Technical Quality: Fair Exam Date: 07/03/2025 10:23 AM Patient Status: OUTPATIENT Exam Type: ECHOCARDIOGRAM TRANSESOPHAGEAL Study Info Indications I48.3 - Typical atrial flutter [id number] BMI: 42.31 kg/m2 History/Risk Factors Hypertension: Yes [...] Bhavik Simms DO on 07/03/2025 11:30 AM [facility] BASIC METABOLIC PANEL WITH A BETY GAPon 06-15-2025 BUN/CREATININE RATIO SEE NOTE: Normal -22 Ques t Diagnostics Comment on above: Order Comment: FASTI NG:YES FASTING: YES Result Comment: Not Reported: BUN and Creatinine are within reference range. Performed By: #### 1 647, 91962 #### [facility] [address], [address] [place] [address] Noodle Maker: Brijesh Simon MD Calcium [Mass/Vol] 9.3 mg/dL Normal 8.6-10.4 [facility] Comment on above: Order Comment: FASTI NG:YES FASTING: YES Performed By: #### 1 526, 48667 #### [facility] [address], [address] [place] [address] Noodle Maker: Brijesh Simon MD Chloride [Moles/Vol] 103 mmol/L Normal 98-110 [facility] t Diagn[facility] Comment on above: Order Comment: FASTI NG:YES FASTING: YES Performed By: #### 1 461, 56970 #### [facility] [address], [address] [place] [address] Noodle Maker: Brijesh Simon MD CO2 [Moles/Vol] 25 mmol/L Normal 20-32 [facility] Comment on above: Order Comment: FASTI NG:YES FASTING: YES Performed By: #### 1 351, 18914 #### [facility] [place] [address] Noodle Maker: Brijesh Simon MD Creatinine [Mass/Vol] 0.99 mg/dL Normal 0.60-1.[address] [facility] Comment on above: Order Comment: FASTI NG:YES FASTING: YES Performed By: #### 1 202, 91510 #### [facility] [address], [address] [place] [address] Noodle Maker: Brijesh Simon MD ELECTROLYTE BALANCE 11 mmol/L (calc) Normal 7-17 [facility] Comment on above: Order Comment: FASTI NG:YES FASTING: YES Performed By: #### 1 053, 10748 #### [facility] [address], [address] [place] [address] Noodle Maker: Brijesh Simon MD GFR/1.73 sq M.predicted among non-blacks MDRD (S/P/Bld) [Vol rate/Area] 61 mL/min/{1.73_m2} Normal > OR = 60 [facility] Comment on above: Order Comment: FASTI NG:YES FASTING: YES Performed By: #### 1 672, 14501 #### [facility] [address], [address] [place] [address] Noodle Maker: Brijesh Simon MD Glucose [Mass/Vol] 97 mg/dL Normal 65-99 [facility] Comment on above: Order Comment: FASTI NG:YES FASTING: YES Result Comment: Fasting reference interval Performed By: #### 1 489, 79796 #### [facility] [address], [address] [place] [address] Noodle Maker: Brijesh Simon MD Potassium [Moles/Vol] 4.6 mmol/L Normal 3.5-5.[address] [facility] Comment on above: Order Comment: FASTI NG:YES FASTING: YES Performed By: #### 1 486, 46429 #### [facility] [address], [address] [place] [address] Noodle Maker: Brijesh Simon MD Sodium [Moles/Vol] 139 mmol/L Normal 135-146 [facility] Comment on above: Order Comment: FASTI NG:YES FASTING: YES Performed By: #### 1 449, 89595 #### [facility] [place] [address] Noodle Maker: Brijesh Simon MD Urea nitrogen [Mass/Vol] 18 mg/dL Normal 7-25 [facility] Comment on above: Order Comment: FASTI NG:YES FASTING: YES Performed By: #### 1 925, 29959 #### [facility] [place] [address] Noodle Maker: Brijesh Simon MD BUN/CREATININE RATIO SEE NOTE: Normal 6-22 Ques t Diagnostics Comment on above: Order Comment: FASTI NG:YES FASTING: YES Result Comment: Not Reported: BUN and Creatinine are within reference range. Performed By: #### 9 5988 #### [facility] [address], [address] [place] [address] Noodle Maker: Brijesh Simon MD Calcium [Mass/Vol] 9.0 mg/dL Normal 8.6-10.4 [facility] Comment on above: Order Comment: FASTI NG:YES FASTING: YES Performed By: #### 9 2498 #### [facility] [address], [address] [place] [address] Noodle Maker: Brijesh Simon MD Chloride [Moles/Vol] 102 mmol/L Normal 98-110 [facility] t Diagnostics Comment on above: Order Comment: FASTI NG:YES FASTING: YES Performed By: #### 9 8968 #### [facility] [address], [address] [place] [address] Noodle Maker: Brijesh Simon MD CO2 [Moles/Vol] 28 mmol/L Normal 20-32 [facility] Comment on above: Order Comment: FASTI NG:YES FASTING: YES Performed By: #### 9 2498 #### [facility] [address], [address] [place] [address] Noodle Maker: Brijesh Simon MD Creatinine [Mass/Vol] 0.97 mg/dL Normal 0.60-1.00 [facility] Comment on above: Order Comment: FASTI NG:YES FASTING: YES Performed By: #### 9 2498 #### [facility] [address], [address] [place] [address] Noodle Maker: Brijesh Simon MD ELECTROLYTE BALANCE 10 mmol/L (calc) Normal 7-17 [facility] Comment on above: Order Comment: FASTI NG:YES FASTING: YES Performed By: #### 9 5048 #### [facility] [place] [address] Noodle Maker: Brijesh Simon MD GFR/1.73 sq M.predicted among non-blacks MDRD (S/P/Bld) [Vol rate/Area] 63 mL/min/{1.73_m2} Normal > OR = 60 [facility] Comment on above: Order Comment: FASTI NG:YES FASTING: YES Performed By: #### 9 2498 #### [facility] [place] [address] Noodle Maker: Brijesh Simon MD Glucose [Mass/Vol] 95 mg/dL Normal 65-99 [facility] Comment on above: Order Comment: FASTI NG:YES FASTING: YES Result Comment: Fasting reference interval Performed By: #### 9 2498 #### [facility] [place] [address] Noodle Maker: Brijesh Simon MD Potassium [Moles/Vol] 4.6 mmol/L Normal 3.5-5.3 [facility] Comment on above: Order Comment: FASTI NG:YES FASTING: YES Performed By: #### 9 5308 #### [facility] [place] [address] Noodle Maker: Brijesh Simon MD Sodium [Moles/Vol] 140 mmol/L Normal 135-146 [facility] Comment on above: Order Comment: FASTI NG:YES FASTING: YES Performed By: #### 9 8648 #### [facility] [place] [address] Noodle Maker: Brijesh Simon MD Urea nitrogen [Mass/Vol] 19 mg/dL Normal 7-25 [facility] Comment on above: Order Comment: FASTI NG:YES FASTING: YES Performed By: #### 9 9728 #### [facility] [place] [address] Noodle Maker: Brijesh Simon MD Basic metabolic 2000 panelon 06-15-2025 Anion gap [Moles/Vol] 10 mmol/L [facility] Calcium [Mass/Vol] 9 mg/dL 8.6 - 10. 4 mg/dL [facility] Chloride [Moles/Vol] 102 mmol/L 98 - 11 0 mmol/L [facility] CO2 [Moles/Vol] 28 mmol/L 20 - 32 mmol/L [facility] Creatinine [Mass/Vol] 0.97 mg/dL 0.60 - 1.00 mg/dL [facility] GFR/1.73 sq M.predicted among non-blacks MDRD (S/P/Bld) [Vol rate/Area] 63 mL/min/{1.73_m2} > OR = 60 mL/min/1.73m 2 [facility] Glucose [Mass/Vol] 95 mg/dL 65 - 99 mg/dL [facility] Comment on above: Fasting reference interval Potassium [Moles/Vol] 4.6 mmol/L 3.5 - 5.3 mmol/L [facility] Sodium [Moles/Vol] 140 mmol/L 135 - 146 mmol/L [facility] Urea nitrogen [Mass/Vol] 19 mg/dL 7 - 25 mg/d L [facility] Urea nitrogen/Creatinine [Mass ratio] SEE NOTE: [facility] Comment on above: Not Reported: BUN an d Creatinine are within reference range. FASTING:YES FASTING: YES [facility] CBC (H/H, RBC, INDICES, WBC, PLT)on 06-15-2025 Erythrocyte distribution width (RBC) [Ratio] 15.1 % High 11.0-15.0 [facility] Comment on above: Performed By: #### 1 144, 82236 #### [facility] [place] [address] Noodle Maker: Brijesh Simon MD Hematocrit (Bld) [Volume fraction] 38.1 % Normal 35.0-45.0 [facility] Comment on above: Performed By: #### 1 909, 61409 #### [facility] [place] [address] Noodle Maker: Brijesh Simon MD Hemoglobin (Bld) [Mass/Vol] 11.8 g/dL Normal 11.7-15.5 [facility] Comment on above: Performed By: #### 1 662, 05534 #### [facility] [place] [address] Noodle Maker: Brijesh Simon MD MCH (RBC) [Entitic mass] 29.3 pg Normal 27.0-33.0 [facility] Comment on above: Performed By: #### 1 274, 31198 #### [facility] [place] [address] Noodle Maker: Brijesh Simon MD MCHC (RBC) [Mass/Vol] 31.0 [...] patient's clinical condition. Performed By: #### 1 969, 53574 #### [facility] [place] [address] Noodle Maker: Brijesh Simon MD MCV (RBC) [Entitic vol] 94.5 fL Normal 80.0-100.0 [facility] Comment on above: Performed By: #### 1 759, 72331 #### [facility] [place] [address] Noodle Maker: Brijesh Simon MD Platelet mean volume (Bld) [Entitic vol] 11.9 fL Normal 7.5-12.5 [facility] Comment on above: Performed By: #### 1 629, 17236 #### [facility] [place] [address] Noodle Maker: Brijesh Simon MD Platelets (Bld) [#/Vol] 215 10*3/uL Normal 140-400 [facility] Comment on above: Performed By: #### 1 759, 15733 #### [facility] [place] [address] Noodle Maker: Brijesh Simon MD RBC (Bld) [#/Vol] 4.03 10*6/uL Normal 3.80-5.10 [facility] Comment on above: Performed By: #### 1 759, 55177 #### [facility] [place] [address] Noodle Maker: Brijesh Simon MD WBC (Bld) [#/Vol] 6.3 10*3/uL Normal 3.8-10.8 [facility] Comment on above: Performed By: #### 1 629, 45437 #### [facility] [address] [place] [address] Noodle Maker: Brijesh Simon MD ECG 12 leadon 06-06-[address] [facility] [place] [facility] P-R Inter[facility] Q-T Inter[facility] Q-T Interval (corrected) [facility] QRS Duration [facility] QTC Calculation (Bezet) [facility] [place] [facility] [place] [facility] Ventricular Rate [facility] 12 Lead EKGon 05-31-2025 12 Lead EKG [facility] [address] [place] [address] 12 Lead EKG 05/31/25 1326 MR#: [id number] Acct: [id number] Name: VICKIE GONZALEZ Rep #: [id number] : 1955 69 From: Francisco Cox MD Attending Dr: Dr. Shagufta Garcia DO Status: DIS I N Ordering Dr: Shagufta Garcia DO Date: 05/31/25 Location: [facility] Sex: F C Admitted: 05/30/25 Test [...] leads Confirmed by FRANCISCO COX MD ([id number]), research editor SHONDA LEIGH ([id number]) on 06/01/2025 5:59:05 AM Referred By: Confirmed By: FRANCISCO COX MD 06/01/25 0559 Date Francisco Cox MD CC: Dr. Kirill Newell MD; Dr. Shagufta Garcia, DO Signed Normal [facility] Absolute lymphocyte countOrd ered By: Shagufta Garcia on 05-31-2025 Lymphocytes Auto (Unsp spec) [#/Vol] 2.19 10*3/uL 0.83-4.51 [facility] Absolute neutrophil countOrd ered By: Shagufta Garcia on 05-31-2025 Neutrophils (Bld) [#/Vol] 4.7 10*3/uL 2.0-7.7 [facility] Anion gap in Serum or Plasma Ordered By: Shagufta Garcia on 05-31-2025 Anion gap [Moles/Vol] 12 mmol/L 5-15 [facility] Automated lymphocyte count a s percentage of total leukocytesOrdered By: Shagufta Garcia on 05-31-2025 Lymphocytes/100 WBC Auto (Unsp spec) 28.5 % 19-41 [facility] BUN/creatinine ratioOrdered By: Shagufta Garcia on 05-31-2025 Urea nitrogen/Creatinine [Mass ratio] 20.2 mg/mg High 10-20 [facility] Basophil percentageOrdered B y: Shagufta Garcia on 05-31-2025 Basophils/100 WBC (Bld) 0.5 % 0-1 [facility] Bilirubin, totalOrdered By: Shagufta Garcia on 05-31-2025 Bilirubin [Mass/Vol] 0.77 mg/dL 0.00-1.[address] [facility] CBC W/Diff, Automatedon Absolute Lymph 2.19 X10 3/uL Normal 0.83-4.51 [facility] Comment on above: Performed By: #### L 500.4050, L501.2300, L501.5200, L100.0100 #### [facility] [address] [place], [address] Absolute Neut 4.7 X10 3/uL Normal 2.0-7.7 [facility] Comment on above: Performed By: #### L 500.4050, L501.2300, L501.5200, L100.0100 #### [facility] [address] [place], [address] Basophils/100 WBC (Bld) 0.5 % Normal 0-1 [facility] Comment on above: Performed By: #### L 500.4050, L501.2300, L501.5200, L100.0100 #### [facility] [address] [place], [address] Eosinophils/100 WBC (Bld) 3.3 % Normal 0-5 [facility] Comment on above: Performed By: #### L 500.4050, L501.2300, L501.5200, L100.0100 #### [facility] [address] [place], [address] Erythrocyte distribution width (RBC) [Ratio] 15.3 % High 11.6-14.6 [facility] Comment on above: Performed By: #### L 500.4050, L501.2300, L501.5200, L100.0100 #### [facility] [address] [place], [address] Hematocrit (Bld) [Volume fraction] 37.5 % Normal 37-47 [facility] Comment on above: Performed By: #### L 500.4050, L501.2300, L501.5200, L100.0100 #### [facility] [address] [place], [address] Hemoglobin (Bld) [Mass/Vol] 12.1 g/dL Normal 12.0-15.0 [facility] Comment on above: Performed By: #### L 500.4050, L501.2300, L501.5200, L100.0100 #### [facility] [address] [place], [address] IG% 0.500 Normal 0.0-0.9 [facility] Comment on above: Result Comment: IG% - Immature Granulocytes (promyelocytes, myelocytes and metamyelocytes) > 1% indicates that a LEFT SHIFT is Present. Performed By: #### L 500.4050, L501.2300, L501.5200, L100.0100 #### [facility] [address] [place], [address] Lymphocytes/100 WBC (Bld) 28.5 % Normal 19-41 [facility] Comment on above: Performed By: #### L 500.4050, L501.2300, L501.5200, L100.0100 #### [facility] [address] [place], [address] MCH (RBC) [Entitic mass] 28.7 pg Normal 27.0-32.0 [facility] Comment on above: Performed By: #### L 500.4050, L501.2300, L501.5200, L100.0100 #### [facility] [address] [place], [address] MCHC (RBC) [Mass/Vol] 32.3 g/dL Normal 32-36 [facility] Comment on above: Performed By: #### L 500.4050, L501.2300, L501.5200, L100.0100 #### [facility] [address] [place], [address] MCV (RBC) [Entitic vol] 89.1 fL Normal 81-99 [facility] Comment on above: Performed By: #### L 500.4050, L501.2300, L501.5200, L100.0100 #### [facility] [address] [place], [address] Monocytes/100 WBC (Bld) 6.8 % Normal 0-10 [facility] Comment on above: Performed By: #### L 500.4050, L501.2300, L501.5200, L100.0100 #### [facility] [address] [place], [address] Neutrophils/100 WBC (Bld) 60.4 % Normal 47-70 [facility] Comment on above: Performed By: #### L 500.4050, L501.2300, L501.5200, L100.0100 #### [facility] [address] [place], [address] Nucleated RBC (Bld) [#/Vol] 0 10*3/uL Normal 0-5 [facility] Comment on above: Performed By: #### L 500.4050, L501.2300, L501.5200, L100.0100 #### [facility] [address] [place], [address] Platelet mean volume (Bld) [Entitic vol] 11.4 fL Normal 6.2-12.0 [facility] Comment on above: Performed By: #### L 500.4050, L501.2300, L501.5200, L100.0100 #### [facility] [address] [place], [address] Platelets (Bld) [#/Vol] 228 10*3/uL Normal 150-450 [facility] Comment on above: Performed By: #### L 500.4050, L501.2300, L501.5200, L100.0100 #### [facility] [address] [place], [address] RBC (Bld) [#/Vol] 4.21 10*6/uL Normal 4.2-5.4 [facility] Comment on above: Performed By: #### L 500.4050, L501.2300, L501.5200, L100.0100 #### [facility] [address] [place], [address] RDW SD 49.7 fl High 35.1-43.9 [facility] Comment on above: Performed By: #### L 500.4050, L501.2300, L501.5200, L100.0100 #### [facility] [address] [place], [address] WBC (Bld) [#/Vol] 7.7 10*3/uL Normal 4.4-11.0 [facility] Comment on above: Performed By: #### L 500.4050, L501.2300, L501.5200, L100.0100 #### [facility] [address] [place], [address] Carbon dioxide, total [Moles /volume] in Central venous bloodOrdered By: Shagufta Garcia on 05-31-2025 CO2 [Moles/Vol] 22.2 mmol/L 21.0-32.0 [facility] Chloride assayOrdered By: Levy Garcia on 05-31-2025 Chloride [Moles/Vol] 106 mmol/L 98-[address] [facility] Comprehensive Metabolic Prof ilon 05-31-2025 Albumin [Mass/Vol] 3.6 g/dL Normal 3.4-4.8 [facility] Comment on above: Performed By: #### L 500.4050, L501.2300, L501.5200, L100.0100 #### [facility] [address] [place], [address] Albumin/Globulin [Mass ratio] 1.0 {ratio} Normal 0.9-2.4 [facility] Comment on above: Performed By: #### L 500.4050, L501.2300, L501.5200, L100.0100 #### [facility] [address] [place], [address] ALK PHOS 118 U/L High 35-104 [facility] Comment on above: Performed By: #### L 500.4050, L501.2300, L501.5200, L100.0100 #### [facility] [address] [place], [address] ALT [Catalytic activity/Vol] 23 U/L Normal <=34 [facility] Comment on above: Performed By: #### L 500.4050, L501.2300, L501.5200, L100.0100 #### [facility] [address] [place], [address] AST [Catalytic activity/Vol] 31 U/L Normal <=31 [facility] Comment on above: Performed By: #### L 500.4050, L501.2300, L501.5200, L100.0100 #### [facility] [address] [place], [address] Bilirubin [Mass/Vol] 0.77 mg/dL Normal 0.00-1.[address] [facility] Comment on above: Performed By: #### L 500.4050, L501.2300, L501.5200, L100.0100 #### [facility] [address] [place], [address] BUN/CRE 20.2 RATIO High 10-20 [facility] Comment on above: Performed By: #### L 500.4050, L501.2300, L501.5200, L100.0100 #### [facility] [address] [place], [address] Calcium [Mass/Vol] 9.0 mg/dL Normal 7.6-11.0 [facility] Comment on above: Performed By: #### L 500.4050, L501.2300, L501.5200, L100.0100 #### [facility] [address] [place], [address] Chloride [Moles/Vol] 106 mmol/L Normal 98-[address] [facility] Comment on above: Performed By: #### L 500.4050, L501.2300, L501.5200, L100.0100 #### [facility] [address] [place], [address] CO2 [Moles/Vol] 22.2 mmol/L Normal 21.0-32.0 [facility] Comment on above: Performed By: #### L 500.4050, L501.2300, L501.5200, L100.0100 #### [facility] [address] [place], [address] Creatinine [Mass/Vol] 0.83 mg/dL Normal 0.70-1.20 [facility] Comment on above: Performed By: #### L 500.4050, L501.2300, L501.5200, L100.0100 #### [facility] [address] [place], [address] ECRCL 84.77 ml/min Normal 50-250 [facility] Comment on above: Performed By: #### L 500.4050, L501.2300, L501.5200, L100.0100 #### [facility] [address] [place], [address] GAP 12 Normal 5-15 [facility] Comment on above: Performed By: #### L 500.4050, L501.2300, L501.5200, L100.0100 #### [facility] [address] [place], [address] GFR/1.73 sq M.predicted among non-blacks MDRD (S/P/Bld) [Vol rate/Area] 76 mL/min/{1.73_m2} Normal >60 [facility] Comment on above: Result Comment: mL/m in/1.73m2 CKD-EPI Creatinine Equation (2020) Performed By: #### L 500.4050, L501.2300, L501.5200, L100.0100 #### [facility] [address] [place], [address] Globulin (S) [Mass/Vol] 3.7 g/dL Normal 2.2-4.2 [facility] Comment on above: Performed By: #### L 500.4050, L501.2300, L501.5200, L100.0100 #### [facility] [address] [place], [address] Glucose [Mass/Vol] 106 mg/dL High 70-99 [facility] Comment on above: Performed By: #### L 500.4050, L501.2300, L501.5200, L100.0100 #### [facility] [address] [place], [address] Potassium [Moles/Vol] 4.0 mmol/L Normal 3.3-5.1 [facility] Comment on above: Performed By: #### L 500.4050, L501.2300, L501.5200, L100.0100 #### [facility] [address] [place], [address] Sodium [Moles/Vol] 139 mmol/L Normal 133-145 [facility] Comment on above: Performed By: #### L 500.4050, L501.2300, L501.5200, L100.0100 #### [facility] [address] [place], [address] T PROT 7.3 g/dL Normal 5.9-8.4 [facility] Comment on above: Performed By: #### L 500.4050, L501.2300, L501.5200, L100.0100 #### [facility] [address] [place], [address] Urea nitrogen [Mass/Vol] 17 mg/dL Normal 4-19 [facility] Comment on above: Performed By: #### L 500.4050, L501.2300, L501.5200, L100.0100 #### [facility] [address] [place], [address] Eosinophil percentageOrdered By: Shagufta Garcia on 05-31-2025 Eosinophils/100 WBC (Bld) 3.3 % 0-5 [facility] Erythrocyte distribution wid th ratioOrdered By: Shagufta Garcia on 05-31-2025 Erythrocyte distribution width (RBC) [Ratio] 15.3 % High 11.6-14.6 [facility] Erythrocyte distribution wid th standard deviationOrdered By: Shagufta Garcia on 05-31-2025 Erythrocyte distribution width (RBC) [Ratio] 49.7 fl High 35.1-43.9 [facility] Glomerular filtration rate ( GFR) estimation/1.73 sq m using serum, plasma, or whole bOrdered By: Shagufta Garcia on 05-31-2025 GFR/1.73 sq M.predicted among non-blacks MDRD (S/P/Bld) [Vol rate/Area] 76 mL/min/{1.73_m2} >60 [facility] Comment on above: mL/min/1.73m2 CKD-EP I Creatinine Equation (2020) Hematocrit Auto (Bld) [Volum e fraction]Ordered By: Shagufta Garcia on 05-31-2025 Hematocrit (Bld) [Volume fraction] 37.5 % 37-47 [facility] Hemoglobin measurementOrdere d By: Shagufta Garcia on 05-31-2025 Hemoglobin (Bld) [Mass/Vol] 12.1 g/dL 12.0-15.0 [facility] Immature granulocytes/100 WB C Auto (Bld)Ordered By: Shagufta Garcia on 05-31-2025 Immature granulocytes/100 WBC (Bld) 0.500 % 0.0-0.9 [facility] Comment on above: IG% - Immature Granu locytes (promyelocytes, myelocytes and metamyelocytes) > 1% indicates that a LEFT SHIFT is Present. Laboratory - Chemistry and C hemistry - challengeOrdered By: Shagufta Garcia on 05-31-2025 AST [Catalytic activity/Vol] 31 U/L <32 [facility] MCV (mean corpuscular volume ) determinationOrdered By: Shagufta Garcia on 05-31-2025 MCV (RBC) [Entitic vol] 89.1 fL 81-99 [facility] Magnesiumon 05-31-2025 Magnesium [Mass/Vol] 2.1 mg/dL Normal 1.5-2.[address] [facility] Comment on above: Performed By: #### L 500.4050, L501.2300, L501.5200, L100.0100 ####[facility] [address] [place], [place], [address] Magnesium measurement (mass/ volume)Ordered By: Shagufta Garcia on 05-31-2025 Magnesium (Unsp spec) [Mass/Vol] 2.1 mg/dL 1.5-2.2 [facility] Mean corpuscular hemoglobin (MCH) determinationOrdered By: Shagufta Garcia on 05-31-2025 MCH (RBC) [Entitic mass] 28.7 pg 27.0-32.0 [facility] Mean corpuscular hemoglobin concentration (MCHC) determinationOrdered By: Shagufta Garcia on 05-31-2025 MCHC (RBC) [Mass/Vol] 32.3 g/dL 32-36 [facility] Mean platelet volume determi nationOrdered By: Shagufta Garcia on 05-31-2025 Platelet mean volume (Bld) [Entitic vol] 11.4 fL 6.2-12.0 [facility] Monocyte percentageOrdered B y: Shagufta Garcia on 05-31-2025 Monocytes/100 WBC (Bld) 6.8 % 0-10 [facility] Neutrophil percentageOrdered By: Shagufta Garcia on 05-31-2025 Neutrophils/100 WBC (Bld) 60.4 % 47-70 [facility] No Panel Informationon 05-31 [facility] Nucleated red blood cell per centageOrdered By: Shagufta Garcia on 05-31-2025 Nucleated RBC/100 WBC (Bld) [Ratio] 0 % 0-5 [facility] Phosphoruson 05-31-2025 Phosphate [Mass/Vol] 3.7 mg/dL Normal 2.7-4.[address] [facility] Comment on above: Performed By: #### L 500.4050, L501.2300, L501.5200, L100.0100 ####[facility] [address] [place], [address] Platelet countOrdered By: Levy Garcia on 05-31-2025 Platelets (Bld) [#/Vol] 228 10*3/uL 150-450 [facility] Potassium measurement (mass/ volume)Ordered By: Shagufta Garcia on 05-31-2025 Potassium (Unsp spec) [Mass/Vol] 4.0 mmol/L 3.3-5.1 [facility] RBC Auto (Bld) [#/Vol]Ordere d By: Shagufta Garcia on 05-31-2025 RBC (Bld) [#/Vol] 4.21 10*6/uL 4.2-5.4 [facility] Serum creatinine measurement (mass/volume)Ordered By: Shagufta Garcia on 05-31-2025 Creatinine [Mass/Vol] 0.83 mg/dL 0.70-1.20 [facility] Serum globulin measurementOr dered By: Shagufta Garcia on 05-31-2025 Globulin (S) [Mass/Vol] 3.7 g/dL 2.2-4.2 [facility] Serum glucose measurement (m ass/volume)Ordered By: Shagufta Garcia on 05-31-2025 Glucose [Mass/Vol] 106 mg/dL High 70-99 [facility] Serum or plasma alanine dennis otransferase (ALT) measurementOrdered By: Shagufta Garcia on 05-31-2025 ALT [Catalytic activity/Vol] 23 U/L <35 [facility] Serum or plasma albumin erasmo urement (mass/volume)Ordered By: Shagufta Garcia on 05-31-2025 Albumin [Mass/Vol] 3.6 g/dL 3.4-4.8 [facility] Serum or plasma albumin/glob ulin mass ratioOrdered By: Shagufta Garcia on 05-31-2025 Albumin/Globulin [Mass ratio] 1.0 {ratio} 0.9-2.4 [facility] Serum or plasma alkaline linh sphatase measurementOrdered By: Shagufta Garcia on 05-31-2025 ALP [Catalytic activity/Vol] 118 U/L High 35-104 [facility] Serum or plasma calcium erasmo urement (mass/volume)Ordered By: Shagufta Garcia on 05-31-2025 Calcium [Mass/Vol] 9.0 mg/dL 7.6-11.0 [facility] Serum or plasma urea nitroge n measurement (mass/volume)Ordered By: Shagufta Garcia on 05-31-2025 Urea nitrogen [Mass/Vol] 17 mg/dL 4-19 [facility] Sodium levelOrdered By: Maribel Garcia on 05-31-2025 Sodium [Moles/Vol] 139 mmol/L 133-145 [facility] Total proteinOrdered By: Lennie Garcia on 05-31-2025 Protein [Mass/Vol] 7.3 g/dL 5.9-8.4 [facility] White blood cell (WBC) count Ordered By: Shagufta Garcia on 05-31-2025 WBC (Bld) [#/Vol] 7.7 10*3/uL 4.4-11.0 [facility] 12 Lead EKGon 05-30-2025 12 Lead EKG [facility] [address] [place] [address] 12 Lead EKG 05/30/25 0021 MR#: [id number] Acct: [id number] Name: VICKIE GONZALEZ Rep #: [id number] : 1955 69 From: Francisco Cox MD [...] Abnormal ECG Confirmed by FRANCISCO COX MD ([id number]), research editor SHONDA LEIGH ([id number]) on 05/30/2025 1:35:34 PM Referred By: FRANCES Confirmed By: FRANCISCO COX MD 07/01/25 1335 Date Francisco Cox MD CC: Dr. Kirill Newell MD; Dr. Shagufta Garcia DO; Remy Rai DO Signed Normal [facility] Absolute lymphocyte countOrd ered By: Remy Rai on 05-30-2025 Lymphocytes Auto (Unsp spec) [#/Vol] 2.26 10*3/uL 0.83-4.51 [facility] Absolute neutrophil countOrd ered By: Remy Rai on 05-30-2025 Neutrophils (Bld) [#/Vol] 5.7 10*3/uL 2.0-7.7 [facility] Anion gap in Serum or Plasma Ordered By: Remy Rai on 05-30-2025 Anion gap [Moles/Vol] 12 mmol/L 5-15 [facility] Automated lymphocyte count a s percentage of total leukocytesOrdered By: Remy Rai on 05-30-2025 Lymphocytes/100 WBC Auto (Unsp spec) 24.9 % 19-41 [facility] BUN/creatinine ratioOrdered By: Remy Rai on 05-30-2025 Urea nitrogen/Creatinine [Mass ratio] 19.0 mg/mg 10- [facility] Basic Metabolic Profile (BMP )on 05-30-2025 BUN/CRE 19.0 RATIO Normal - [facility] Comment on above: Performed By: #### L 500.2500, L100.0100, L501.5200, L501.9520 ####[facility] [address] [place], [address] Calcium [Mass/Vol] 9.4 mg/dL Normal 7.6-11.0 [facility] Comment on above: Performed By: #### L 500.2500, L100.0100, L501.5200, L501.9520 ####[facility] [address] [place], [address] Chloride [Moles/Vol] 103 mmol/L Normal 98-[address] [facility] Comment on above: Performed By: #### L 500.2500, L100.0100, L501.5200, L501.9520 ####[facility] [address] [place], [address] CO2 [Moles/Vol] 23.9 mmol/L Normal 21.0-32.0 [facility] Comment on above: Performed By: #### L 500.2500, L100.0100, L501.5200, L501.9520 ####[facility] [address] [place], [address] Creatinine [Mass/Vol] 0.86 mg/dL Normal 0.70-1.20 [facility] Comment on above: Performed By: #### L 500.2500, L100.0100, L501.5200, L501.9520 ####[facility] [address] [place], [address] ECRCL 81.19 ml/min Normal 50-250 [facility] Comment on above: Performed By: #### L 500.2500, L100.0100, L501.5200, L501.9520 ####[facility] [address] [place], [address] GAP 12 Normal 5-15 [facility] Comment on above: Performed By: #### L 500.2500, L100.0100, L501.5200, L501.9520 ####[facility] [address] [place], [address] GFR/1.73 sq M.predicted among non-blacks MDRD (S/P/Bld) [Vol rate/Area] 72 mL/min/{1.73_m2} Normal >60 [facility] Comment on above: Result Comment: mL/m in/1.73m2 CKD-EPI Creatinine Equation (2020) Performed By: #### L 500.2500, L100.0100, L501.5200, L501.9520 ####[facility] [address] [place], [address] Glucose [Mass/Vol] 105 mg/dL High 70-99 [facility] Comment on above: Performed By: #### L 500.2500, L100.0100, L501.5200, L501.9520 ####[facility] [address] [place], [address] Potassium [Moles/Vol] 3.9 mmol/L Normal 3.3-5.1 [facility] Comment on above: Performed By: #### L 500.2500, L100.0100, L501.5200, L501.9520 ####[facility] [address] [place], [address] Sodium [Moles/Vol] 138 mmol/L Normal 133-145 [facility] Comment on above: Performed By: #### L 500.2500, L100.0100, L501.5200, L501.9520 ####[facility] [address] [place], [address] Urea nitrogen [Mass/Vol] 16 mg/dL Normal 4-19 [facility] Comment on above: Performed By: #### L 500.2500, L100.0100, L501.5200, L501.9520 ####[facility] [address] [place], [address] Basophil percentageOrdered B y: Remy Rai on 05-30-2025 Basophils/100 WBC (Bld) 0.4 % 0-1 [facility] CBC W/Diff, Automatedon Absolute Lymph 2.41 X10 3/uL Normal 0.83-4.51 [facility] Comment on above: Performed By: #### L 100.0100, L501.2300, L500.4100, L500.4050 #### [facility] [address] [place], [address] Absolute Neut 5.2 X10 3/uL Normal 2.0-7.7 [facility] Comment on above: Performed By: #### L 100.0100, L501.2300, L500.4100, L500.4050 #### [facility] [address] [place], [address] Basophils/100 WBC (Bld) 0.5 % Normal 0-1 [facility] Comment on above: Performed By: #### L 100.0100, L501.2300, L500.4100, L500.4050 #### [facility] [address] [place], [address] Eosinophils/100 WBC (Bld) 2.0 % Normal 0-5 [facility] Comment on above: Performed By: #### L 100.0100, L501.2300, L500.4100, L500.4050 #### [facility] [address] [place], [address] Erythrocyte distribution width (RBC) [Ratio] 14.8 % High 11.6-14.6 [facility] Comment on above: Performed By: #### L 100.0100, L501.2300, L500.4100, L500.4050 #### [facility] [address] [place], [address] Hematocrit (Bld) [Volume fraction] 36.5 % Low 37-47 [facility] Comment on above: Performed By: #### L 100.0100, L501.2300, L500.4100, L500.4050 #### [facility] [address] [place], [address] Hemoglobin (Bld) [Mass/Vol] 11.9 g/dL Low 12.0-15.0 [facility] Comment on above: Performed By: #### L 100.0100, L501.2300, L500.4100, L500.4050 #### [facility] [address] [place], [address] IG% 0.400 Normal 0.0-0.9 [facility] Comment on above: Result Comment: IG% - Immature Granulocytes (promyelocytes, myelocytes and metamyelocytes) > 1% indicates that a LEFT SHIFT is Present. Performed By: #### L 100.0100, L501.2300, L500.4100, L500.4050 #### [facility] [address] [place], [address] Lymphocytes/100 WBC (Bld) 28.6 % Normal 19-41 [facility] Comment on above: Performed By: #### L 100.0100, L501.2300, L500.4100, L500.4050 #### [facility] [address] [place], [address] MCH (RBC) [Entitic mass] 28.8 pg Normal 27.0-32.0 [facility] Comment on above: Performed By: #### L 100.0100, L501.2300, L500.4100, L500.4050 #### [facility] [address] [place], [address] MCHC (RBC) [Mass/Vol] 32.6 g/dL Normal 32-36 [facility] Comment on above: Performed By: #### L 100.0100, L501.2300, L500.4100, L500.4050 #### [facility] [address] [place], [address] MCV (RBC) [Entitic vol] 88.4 fL Normal 81-99 [facility] Comment on above: Performed By: #### L 100.0100, L501.2300, L500.4100, L500.4050 #### [facility] [address] [place], [address] Monocytes/100 WBC (Bld) 6.7 % Normal 0-10 [facility] Comment on above: Performed By: #### L 100.0100, L501.2300, L500.4100, L500.4050 #### [facility] [address] [place], [address] Neutrophils/100 WBC (Bld) 61.8 % Normal 47-70 [facility] Comment on above: Performed By: #### L 100.0100, L501.2300, L500.4100, L500.4050 #### [facility] [address] [place], [address] Nucleated RBC (Bld) [#/Vol] 0 10*3/uL Normal 0-5 [facility] Comment on above: Performed By: #### L 100.0100, L501.2300, L500.4100, L500.4050 #### [facility] [address] [place], [address] Platelet mean volume (Bld) [Entitic vol] 11.2 fL Normal 6.2-12.0 [facility] Comment on above: Performed By: #### L 100.0100, L501.2300, L500.4100, L500.4050 #### [facility] [address] [place], [address] Platelets (Bld) [#/Vol] 213 10*3/uL Normal 150-450 [facility] Comment on above: Performed By: #### L 100.0100, L501.2300, L500.4100, L500.4050 #### [facility] [address] [place], [address] RBC (Bld) [#/Vol] 4.13 10*6/uL Low 4.2-5.4 [facility] Comment on above: Performed By: #### L 100.0100, L501.2300, L500.4100, L500.4050 #### [facility] [address] [place], [address] RDW SD 47.9 fl High 35.1-43.9 [facility] Comment on above: Performed By: #### L 100.0100, L501.2300, L500.4100, L500.4050 #### [facility] [address] [place], [address] WBC (Bld) [#/Vol] 8.4 10*3/uL Normal 4.4-11.0 [facility] Comment on above: Performed By: #### L 100.0100, L501.2300, L500.4100, L500.4050 #### [facility] [address] [place], [address] Absolute Lymph 2.26 X10 3/uL Normal 0.83-4.51 [facility] Comment on above: Performed By: #### L 500.2500, L100.0100, L501.5200, L501.9520 ####[facility] [address] [place], [address] Absolute Neut 5.7 X10 3/uL Normal 2.0-7.7 [facility] Comment on above: Performed By: #### L 500.2500, L100.0100, L501.5200, L501.9520 ####[facility] [address] [place], [address] Basophils/100 WBC (Bld) 0.4 % Normal 0-1 [facility] Comment on above: Performed By: #### L 500.2500, L100.0100, L501.5200, L501.9520 ####[facility] [address] [place], [address] Eosinophils/100 WBC (Bld) 2.9 % Normal 0-5 [facility] Comment on above: Performed By: #### L 500.2500, L100.0100, L501.5200, L501.9520 ####[facility] [address] [place], [address] Erythrocyte distribution width (RBC) [Ratio] 14.8 % High 11.6-14.6 [facility] Comment on above: Performed By: #### L 500.2500, L100.0100, L501.5200, L501.9520 ####[facility] [id number] [place], [address] Hematocrit (Bld) [Volume fraction] 37.5 % Normal 37-47 [facility] Comment on above: Performed By: #### L 500.2500, L100.0100, L501.5200, L501.9520 ####[facility] [id number] [place], [address] Hemoglobin (Bld) [Mass/Vol] 12.4 g/dL Normal 12.0-15.0 [facility] Comment on above: Performed By: #### L 500.2500, L100.0100, L501.5200, [id number] ####[facility] [address] [place], [address] IG% 0.300 Normal 0.0-0.9 [facility] Comment on above: Result Comment: IG% - Immature Granulocytes (promyelocytes, myelocytes and metamyelocytes) > 1% indicates that a LEFT SHIFT is Present. Performed By: #### L 500.2500, L100.0100, L501.5200, L501.9520 ####[facility] [address] [place], [address] Lymphocytes/100 WBC (Bld) 24.9 % Normal 19-41 [facility] Comment on above: Performed By: #### L 500.2500, L100.0100, L501.5200, L501.9520 ####[facility] [address] [place], [address] MCH (RBC) [Entitic mass] 29.2 pg Normal 27.0-32.0 [facility] Comment on above: Performed By: #### L 500.2500, L100.0100, L501.5200, L501.9520 ####[facility] [address] [place], [address] MCHC (RBC) [Mass/Vol] 33.1 g/dL Normal 32-36 [facility] Comment on above: Performed By: #### L 500.2500, L100.0100, L501.5200, L501.9520 ####[facility] [address] [place], [address] MCV (RBC) [Entitic vol] 88.2 fL Normal 81-99 [facility] Comment on above: Performed By: #### L 500.2500, L100.0100, L501.5200, L501.9520 ####[facility] [address] [place], [address] Monocytes/100 WBC (Bld) 8.3 % Normal 0-10 [facility] Comment on above: Performed By: #### L 500.2500, L100.0100, L501.5200, L501.9520 ####[facility] [address] [place], [address] Neutrophils/100 WBC (Bld) 63.2 % Normal 47-70 [facility] Comment on above: Performed By: #### L 500.2500, L100.0100, L501.5200, L501.9520 ####[facility] [address] [place], [address] Nucleated RBC (Bld) [#/Vol] 0 10*3/uL Normal 0-5 [facility] Comment on above: Performed By: #### L 500.2500, L100.0100, L501.5200, L501.9520 ####[facility] [address] [place], [address] Platelet mean volume (Bld) [Entitic vol] 11.4 fL Normal 6.2-12.0 [facility] Comment on above: Performed By: #### L 500.2500, L100.0100, L501.5200, L501.9520 ####[facility] [address] [place], [address] Platelets (Bld) [#/Vol] 223 10*3/uL Normal 150-450 [facility] Comment on above: Performed By: #### L 500.2500, L100.0100, L501.5200, L501.9520 ####[facility] [address] [place], [address] RBC (Bld) [#/Vol] 4.25 10*6/uL Normal 4.2-5.4 [facility] Comment on above: Performed By: #### L 500.2500, L100.0100, L501.5200, L501.9520 ####[facility] [address] [place], [address] RDW SD 47.8 fl High 35.1-43.9 [facility] Comment on above: Performed By: #### L 500.2500, L100.0100, L501.5200, L501.9520 ####[facility] [address] [place], [address] WBC (Bld) [#/Vol] 9.1 10*3/uL Normal 4.4-11.0 [facility] Comment on above: Performed By: #### L 500.2500, L100.0100, L501.5200, L501.9520 ####[facility] [address] [place], [address] CTA Chest W/WO Contraston CTA Chest W/WO Contrast [facility] [place] [address] CTA Chest W/WO Contrast MR#: [id number] Acct: [id number] Name: VICKIE GONZALEZ Rep #: [id number] : 1955 F 69 From: Geraldo Moore MD PCP: Dr. Kirill Newell MD Status: ADM IN Study: CTA Chest W/WO Contrast Date of Exam: 05/30/25 Exam# [id number] Ordering Dr: Nicol Silva DO PROCEDURE: CTA [...] Progress imaging as clinically determined. Reading Location: [place] [address] CC: Dr. Nicol Silva DO; Dr. Kirill Newell MD Label Printer: Signed Normal [facility] Calculated very low density lipoprotein (VLDL) cholesterol measurementOrdered By: Nicol Roldan on 05-30-2025 Calculated very low density lipoprotein (VLDL) cholesterol measurement 14 mg/dL 5-40 [facility] Carbon dioxide, total [Moles /volume] in Central venous bloodOrdered By: Remy Rai on 05-30-2025 CO2 [Moles/Vol] 23.9 mmol/L 21.0-32.0 [facility] Chloride assayOrdered By: Polina Rai on 05-30-2025 Chloride [Moles/Vol] 103 mmol/L 98-[address] [facility] Comprehensive Metabolic Prof ilon 05-30-2025 Albumin [Mass/Vol] 3.6 g/dL Normal 3.4-4.8 [facility] Comment on above: Performed By: #### L 100.0100, L501.2300, L500.4100, L500.4050 #### [facility] [address] [place], [address] Albumin/Globulin [Mass ratio] 1.0 {ratio} Normal 0.9-2.4 [facility] Comment on above: Performed By: #### L 100.0100, L501.2300, L500.4100, L500.4050 #### [facility] [address] [place], [address] ALK PHOS 118 U/L High 35-104 [facility] Comment on above: Performed By: #### L 100.0100, L501.2300, L500.4100, L500.4050 #### [facility] [address] [place], [address] ALT [Catalytic activity/Vol] 21 U/L Normal <=34 [facility] Comment on above: Performed By: #### L 100.0100, L501.2300, L500.4100, L500.4050 #### [facility] [address] [place], [address] AST [Catalytic activity/Vol] 33 U/L High <=31 [facility] Comment on above: Performed By: #### L 100.0100, L501.2300, L500.4100, L500.4050 #### [facility] [address] [place], [address] Bilirubin [Mass/Vol] 0.74 mg/dL Normal 0.00-1.[address] [facility] Comment on above: Performed By: #### L 100.0100, L501.2300, L500.4100, L500.4050 #### [facility] [address] [place], [address] BUN/CRE 17.9 RATIO Normal 10-20 [facility] Comment on above: Performed By: #### L 100.0100, L501.2300, L500.4100, L500.4050 #### [facility] [address] [place], [address] Calcium [Mass/Vol] 9.1 mg/dL Normal 7.6-11.0 [facility] [place] Comment on above: Performed By: #### L 100.0100, L501.2300, L500.4100, L500.4050 #### [facility] [address] [place], [address] Chloride [Moles/Vol] 105 mmol/L Normal 98-[address] [facility] Comment on above: Performed By: #### L 100.0100, L501.2300, L500.4100, L500.4050 #### [facility] [address] [place], [address] CO2 [Moles/Vol] 22.9 mmol/L Normal 21.0-32.0 [facility] Comment on above: Performed By: #### L 100.0100, L501.2300, L500.4100, L500.4050 #### [facility] [address] [place], [address] Creatinine [Mass/Vol] 0.78 mg/dL Normal 0.70-1.20 [facility] Comment on above: Performed By: #### L 100.0100, L501.2300, L500.4100, L500.4050 #### [facility] [address] [place], [address] ECRCL 87.12 ml/min Normal 50-250 [facility] Comment on above: Performed By: #### L 100.0100, L501.2300, L500.4100, L500.4050 #### [facility] [address] [place], [address] GAP 12 Normal 5-15 [facility] Comment on above: Performed By: #### L 100.0100, L501.2300, L500.4100, L500.4050 #### [facility] [address] [place], [address] GFR/1.73 sq M.predicted among non-blacks MDRD (S/P/Bld) [Vol rate/Area] 82 mL/min/{1.73_m2} Normal >60 [facility] Comment on above: Result Comment: mL/m in/1.73m2 CKD-EPI Creatinine Equation (2020) Performed By: #### L 100.0100, L501.2300, L500.4100, L500.4050 #### [facility] [address] [place], [address] Globulin (S) [Mass/Vol] 3.5 g/dL Normal 2.2-4.2 [facility] Comment on above: Performed By: #### L 100.0100, L501.2300, L500.4100, L500.4050 #### [facility] [address] [place], [address] Glucose [Mass/Vol] 105 mg/dL High 70-99 [facility] [place] Comment on above: Performed By: #### L 100.0100, L501.2300, L500.4100, L500.4050 #### [facility] [address] [place], [address] Potassium [Moles/Vol] 4.1 mmol/L Normal 3.3-5.1 [facility] Comment on above: Performed By: #### L 100.0100, L501.2300, L500.4100, L500.4050 #### [facility] [address] [place], [address] Sodium [Moles/Vol] 140 mmol/L Normal 133-145 [facility] Comment on above: Performed By: #### L 100.0100, L501.2300, L500.4100, L500.4050 #### [facility] [address] [place], [address] T PROT 7.1 g/dL Normal 5.9-8.4 [facility] Comment on above: Performed By: #### L 100.0100, L501.2300, L500.4100, L500.4050 #### [facility] [address] [place], [address] Urea nitrogen [Mass/Vol] 14 mg/dL Normal 4-19 [facility] Comment on above: Performed By: #### L 100.0100, L501.2300, L500.4100, L500.4050 #### [facility] [address] [place], [address] Consultation - Cardiologyon 05-30-2025 Consultation - Cardiology [facility] Medical Records Department [address] [place] [address] Consultation - Cardiology 05/30/25 1733 MR#: [id number] Acct: [id number] Name: VICKIE GONZALEZ Rep #: [id number] : 1955 69 From: Dianne Perez MD PCP: Dr. Kirill Newell MD Status:ADM IN [id number] Plan Assessment/Plan (1) Fibrosing mediastinitis: (2) Status post double vessel coronary artery bypass: (3) Atrial flutter with rapid ventricular response: (4) Aortic valve insufficiency: QUALIFIERS: Cardiac valve disease etiology: etiology unspecified Qualified Code(s): I 35.1 - Nonrheumatic aortic (valve) insufficiency PLAN: Plan Cardiac care plan recommendation 69-year-old patient with fibrosing mediastinitis Has CAD with two-vessel bypass, done in [facility] in [place] 2000. History of aortic [...] Meantime also to follow-up with her primary commercial real estate manager in [place] in regard to possible future atrial flutter ablation. And to continue on her current treatment. 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 Will continue to monitor and follow-up clinically I also advised to establish with a local commercial real estate manager for continuation of cardiac care. Dianne Perez MD,[facility] HPI Consult Data Date of Consult: 05/30/25 HPI Narrative Reason for Consultation: CAD s/p CABG/TAVR atrial flutter/fibrosing mediastinitis HPI Narrative: VICKIE GONZALEZ, is a 69 F who presents [facility] Medical History (Updated 05/30/25 @ [...] and examined (more content not included)... Normal [facility] Echo Completeon 05-30-2025 Echo Complete [facility] [address] [place] [address] Echo Complete 05/30/25 1035 MR#: [id number] Acct: [id number] Name: VICKIE GONZALEZ Rep #: [id number] : 1955 69 From: Dianne Perez MD Attending Dr: Dr. Shagufta Garcia, DO Status: ADM I N Ordering Dr: Nicol Silva DO Date: 05/30/25 Location: [facility] Sex: F C Admitted: 05/30/25 Reason [...] DO Date Dictated: 05/30/251034 Date Transcribed: 05/30/251632 Label Printer: Signed Normal [facility] Echocardiogram study reportO rdered By: Dianne Perez on 05-30-2025 Study report [facility] Cardiovascular Services [address] [place] [address] Echo Complete 05/30/251034 MR#: [id number] Acct: [id number] Name: VICKIE GONZALEZ Rep #:[id number] : 1955 69 From: Dianne Perez MD Attending Dr: DO Gregory Yeung tatus: ADM IN Ordering Dr: Nicol Silva DO Date: 05/30/25 Location: [facility] Sex: F C Admitted: 05/30/25 Reason [...] Dictated: 05/30/25 1035 Date Transcribed: 05/30/25 163 Label Printer: Signed [facility] Work Phone: Electrocardiogram reportOrde red By: Francisco Cox on 05-30-2025 EKG study [facility] Cardiovascular Services [address] [place] [address] 12 Lead EKG 05/30/25 0021 MR#: [id number] Acct: [id number] Name: VICKIE GONZALEZ Rep #:[id number] : 1955 69 From: Francisco Cox MD Attending Dr: Dr. Shagufta Garcia DO S tatus: ADM IN Ordering Dr: Remy Rai DO Date: Location: [facility] Sex: F C Admitted: 05/30/25 Test [...] Abnormal ECG Confirmed by FRANCISCO COX MD ([id number]), research editor SHONDA LEIGH ([id number]) on 05/30/2025 1:35:34 PM Referred By: FRANCES Confirmed By: FRANCISCO COX MD 05/30/25 1335 Date _ Francisco Cox MD CC: Dr. Kirill Newell MD; Dr. Shagufta Garcia DO; Remy Rai DO ~ Signed [facility] Work Phone: Emergency Department Summary on 05-30-2025 Emergency Department Summary [facility] Medical Records Department [address] [place] [address] Emergency Department Summary 05/30/25 MR#: [id number] Acct: [id number] Name: VICKIE GONZALEZ Rep #: [id number] : 1955 69 From: Remy Rai DO PCP: Dr. Kirill Newell MD Status:ADM IN Location: [place] [id number] HPI History of Present Illness Chief Complaint: [...] stimulant use or illicit drug use. [facility] Medical History (Updated 05/30/25 @ 04:21 by [...] 123 123 (more content not included)... Normal [facility] Eosinophil percentageOrdered By: Remy Rai on 05-30-2025 Eosinophils/100 WBC (Bld) 2.9 % 0-5 [facility] Erythrocyte distribution wid th ratioOrdered By: Remy Rai on 05-30-2025 Erythrocyte distribution width (RBC) [Ratio] 14.8 % High 11.6-14.6 [facility] Erythrocyte distribution wid th standard deviationOrdered By: Remy Rai on 05-30-2025 Erythrocyte distribution width (RBC) [Ratio] 47.8 fl High 35.1-43.9 [facility] Glomerular filtration rate ( GFR) estimation/1.73 sq m using serum, plasma, or whole bOrdered By: Remy Rai on 05-30-2025 GFR/1.73 sq M.predicted among non-blacks MDRD (S/P/Bld) [Vol rate/Area] 72 mL/min/{1.73_m2} >60 [facility] Comment on above: mL/min/1.73m2 CKD-EP I Creatinine Equation (2020) H AND P Exam - Hospitaliston 05-30-2025 H&P Exam - Hospitalist [facility] Medical Records Department [address] [place] [address] H P Exam - Hospitalist 05/30/25 0208 MR#: [id number] Acct: [id number] Name: VICKIE GONZALEZ Rep #: [id number] : 1955 69 From: Nicol Silva DO PCP: Dr. Kirill Newell MD Status:ADM IN Location: [place] [address] HPI - General General Date of Admission: [...] and OA; s/p TKR who presents to [facility] complaining of heart racing and palpitations with [...] is expected to extend beyond 2 midnights. [facility] Medical History (Updated 05/30/25 @ [...] or jaundice (more content not included)... Normal [facility] Hematocrit Auto (Bld) [Volum e fraction]Ordered By: Remy Rai on 05-30-2025 Hematocrit (Bld) [Volume fraction] 37.5 % 37-47 [facility] Hemoglobin A1con 05-30-2025 HbA1c (Bld) [Mass fraction] 6.3 % High <=5.6 [facility] Comment on above: Result Comment: Norm al < 5.7 % Prediabetic 5.7 - 6.4 % Diabetic >or= 6.5 % Please note range changes. Performed By: #### L 501.9909 ####[facility] [address] [place], [place], [address] Hemoglobin A1c percentageOrd ered By: Nicol Roldan on 05-30-2025 HbA1c (Bld) [Mass fraction] 6.3 % High <5.7 [facility] Comment on above: Normal < 5.7 % Predi abetic 5.7 - 6.4 % Diabetic >or= 6.5 % Please note range changes. Hemoglobin measurementOrdere d By: Remy Rai on 05-30-2025 Hemoglobin (Bld) [Mass/Vol] 12.4 g/dL 12.0-15.0 [facility] Immature granulocytes/100 WB C Auto (Bld)Ordered By: Remy Rai on 05-30-2025 Immature granulocytes/100 WBC (Bld) 0.300 % 0.0-0.9 [facility] Comment on above: IG% - Immature Granu locytes (promyelocytes, myelocytes and metamyelocytes) > 1% indicates that a LEFT SHIFT is Present. L499.0042on 05-30-2025 Trop T High Sen 20 ng/L High <=14 [facility] Comment on above: Performed By: #### L 499.0042 ####[facility] [address] [place], [place], [address] L499.0043on 05-30-2025 Trop T High Sen 20 ng/L High <=14 [facility] Comment on above: Performed By: #### L 499.0043 ####[facility] [address] [place], [address] L501.4021on 05-30-2025 Trop T High Sen 21 ng/L High <=14 [facility] Comment on above: Performed By: #### L 501.4021 ####[facility] [address] [place], [place], [address] LDL calc ser/plasOrdered By: Nicol Roldan on 05-30-2025 Cholesterol in LDL [Mass/Vol] 67 mg/dL [facility] Comment on above: Zfbimcptwt=077-105 m g/dL & Higher Dakr=256 mg/dL or greater Lipid Profileon 05-30-2025 CHOL:HDL 2.41 Normal [facility] Comment on above: Performed By: #### L 100.0100, L501.2300, L500.4100, L500.4050 #### [facility] [address] [place], [address] Cholesterol [Mass/Vol] 140 mg/dL Normal <=200 [facility] Comment on above: Result Comment: Chol esterol level, Desirable <200 mg/dL Borderline high cholesterol 200-239 mg/dL High cholesterol >=240 mg/dL Recommendations of the NCEP Adult Treatment Panel for the following risk-cutoff thresholds for the [place] population. Performed By: #### L 100.0100, L501.2300, L500.4100, L500.4050 #### [facility] [address] [place], [address] Cholesterol in HDL [Mass/Vol] 58 mg/dL Normal [facility] Comment on above: Result Comment: [place] on[place] Cholesterol Education Program (NCEP) guidelines: <40 mg/dL: Low HDL-cholesterol (major risk factor for CHD) >= 60 mg/dL: High HDL-cholesterol (negative risk factor for CHD) HDL-cholesterol is affected by a number of factors, e.g. smoking, exercise, hormones, sex and age. Performed By: #### L 100.0100, L501.2300, L500.4100, L500.4050 #### [facility] [address] [place], [address] Cholesterol in LDL [Mass/Vol] 67 mg/dL Normal [facility] Comment on above: Result Comment: Bord eegkdi=267-682 mg/dL Higher Oirv=149 mg/dL or greater Performed By: #### L 100.0100, L501.2300, L500.4100, L500.4050 #### [facility] [address] [place], [address] Cholesterol in VLDL [Mass/Vol] 14 mg/dL Normal 5-40 [facility] Comment on above: Performed By: #### L 100.0100, L501.2300, L500.4100, L500.4050 #### [facility] [address] [place], [address] Triglyceride [Mass/Vol] 72 mg/dL Normal [facility] Comment on above: Result Comment: The drugs N-Acetylcysteine and Metamizole may falsely depress this assay. Normal range: <150 mg/dL Borderline High: 150-199 mg/dL High: 200-499 mg/dL Very High: >500 mg/dL Performed By: #### L 100.0100, L501.2300, L500.4100, L500.4050 #### [facility] [address] [place], [address] MCV (mean corpuscular volume ) determinationOrdered By: Remy Rai on 05-30-2025 MCV (RBC) [Entitic vol] 88.2 fL 81-99 [facility] Magnesiumon 05-30-2025 Magnesium [Mass/Vol] 2.0 mg/dL Normal 1.5-2.[address] [facility] Comment on above: Performed By: #### L 500.2500, L100.0100, L501.5200, L501.9520 ####[facility] [address] [place], [address] Magnesium measurement (mass/ volume)Ordered By: Remy Rai on 05-30-2025 Magnesium (Unsp spec) [Mass/Vol] 2.0 mg/dL 1.5-2.2 [facility] Mean corpuscular hemoglobin (MCH) determinationOrdered By: Remy Rai on 05-30-2025 MCH (RBC) [Entitic mass] 29.2 pg 27.0-32.0 [facility] Mean corpuscular hemoglobin concentration (MCHC) determinationOrdered By: Remy Rai on 05-30-2025 MCHC (RBC) [Mass/Vol] 33.1 g/dL 32-36 [facility] Mean platelet volume determi nationOrdered By: Remy Rai on 05-30-2025 Platelet mean volume (Bld) [Entitic vol] 11.4 fL 6.2-12.0 [facility] Monocyte percentageOrdered B y: Remy Rai on 05-30-2025 Monocytes/100 WBC (Bld) 8.3 % 0-10 [facility] Neutrophil percentageOrdered By: Remy Rai on 05-30-2025 Neutrophils/100 WBC (Bld) 63.2 % 47-70 [facility] No Panel Informationon 05-30 [facility] Nucleated red blood cell per centageOrdered By: Remy Rai on 05-30-2025 Nucleated RBC/100 WBC (Bld) [Ratio] 0 % 0-5 [facility] Phosphoruson 05-30-2025 Phosphate [Mass/Vol] 3.7 mg/dL Normal 2.7-4.[address] [facility] Comment on above: Performed By: #### L 100.0100, L501.2300, L500.4100, L500.4050 #### [facility] [address] [place], [address] Platelet countOrdered By: Polina Rai on 05-30-2025 Platelets (Bld) [#/Vol] 223 10*3/uL 150-450 [facility] Potassium measurement (mass/ volume)Ordered By: Remy Rai on 05-30-2025 Potassium (Unsp spec) [Mass/Vol] 3.9 mmol/L 3.3-5.1 [facility] RBC Auto (Bld) [#/Vol]Ordere d By: Remy Rai on 05-30-2025 RBC (Bld) [#/Vol] 4.25 10*6/uL 4.2-5.4 [facility] Screening total cholesterol/ high density lipoprotein (HDL) cholesterol ratioOrdered By: Nicol Roldan on 05-30-2025 Cholesterol.total/Choles terol in HDL [Mass ratio] 2.41 {ratio} [facility] Serum creatinine measurement (mass/volume)Ordered By: Remy Rai on 05-30-2025 Creatinine [Mass/Vol] 0.86 mg/dL 0.70-1.20 [facility] Serum glucose measurement (m ass/volume)Ordered By: Remy Rai on 05-30-2025 Glucose [Mass/Vol] 105 mg/dL High 70-99 [facility] Serum or plasma calcium erasmo urement (mass/volume)Ordered By: Remy Rai on 05-30-2025 Calcium [Mass/Vol] 9.4 mg/dL 7.6-11.0 [facility] Serum or plasma cholesterol in HDL measurement (mass/volume)Ordered By: Nicol Roldan on 05-30-2025 Cholesterol in HDL [Mass/Vol] 58 mg/dL >40 [facility] Comment on above: National Cholesterol Education Program (NCEP) guidelines:<40 mg/dL: Low HDL-cholesterol (major risk factor for CHD)>= 60 mg/dL: High HDL-cholesterol (negative risk factor for CHD)HDL-cholesterol is affected by a number of factors, e.g. smoking, exercise, hormones, sex and age. Serum or plasma cholesterol measurement (mass/volume)Ordered By: Nicol Roldan on 05-30-2025 Cholesterol [Mass/Vol] 140 mg/dL <201 [facility] Comment on above: Cholesterol level, D esirable <200 mg/dLBorderline high cholesterol 200-239 mg/dLHigh cholesterol >=240 mg/dLRecommendations of the NCEP Adult Treatment Panel for the following risk-cutoff thresholds for the [place] population. Serum or plasma urea nitroge n measurement (mass/volume)Ordered By: Remy Rai on 05-30-2025 Urea nitrogen [Mass/Vol] 16 mg/dL 4-19 [facility] Sodium levelOrdered By: Dev Rai on 05-30-2025 Sodium [Moles/Vol] 138 mmol/L 133-145 [facility] TSH DL <= 0.005 mIU/L QnOrde red By: Remy Rai on 05-30-2025 TSH Qn 3.020 uIU/mL 0.300-4.200 [facility] Thyroid Stim Hormone (TSH)on 05-30-2025 TSH 3.020 uIU/mL Normal 0.300-4.200 [facility] Comment on above: Performed By: #### L 500.2500, L100.0100, L501.5200, L501.9520 ####[facility] [address] [place], [place], [address] Triglycerides measurementOrd ered By: Nicol Roldan on 05-30-2025 Triglyceride [Mass/Vol] 72 mg/dL <199 [facility] Comment on above: The drugs N-Acetylcy steine and Metamizole may falsely depress this assay. Normal range: <150 mg/dLBorderline High: 150-199 mg/dLHigh: 200-499 mg/dLVery High: >500 mg/dL Troponin T.cardiac [Mass/vol ume] in Serum or Plasma by High sensitivity methodOrdered By: Nicol Roldan on 05-30-2025 Troponin T.cardiac High sensitivity method [Mass/Vol] 20 ng/L High <14 [facility] Troponin T.cardiac High sensitivity method [Mass/Vol] 20 ng/L High <14 [facility] Troponin T.cardiac High sensitivity method [Mass/Vol] 21 ng/L High <14 [facility] White blood cell (WBC) count Ordered By: Remy Rai on 05-30-2025 WBC (Bld) [#/Vol] 9.1 10*3/uL 4.4-11.0 [facility] CBC W/Diff, Automatedon 12-01 Absolute Lymph 1.60 X10 3/uL Normal 0.83-4.51 [facility] Comment on above: Order Comment: Order Date: 12/13/24Order Info: [id number] - CBCDOrder Info: [id number] - SED Performed By: #### L 501.9520, L501.9985, L509.1000, L101.9900, L100.0100, L500.4050, L502.0250, L506.1000, L500.4100 ####[facility] [address] [place], [address] Absolute Neut 3.8 X10 3/uL Normal 2.0-7.7 [facility] Comment on above: Order Comment: Order Date: 12/13/24Order Info: [id number]- - CBCDOrder Info: [id number] - SED Performed By: #### L 501.9520, L501.9985, L509.1000, L101.9900, L100.0100, L500.4050, L502.0250, L506.1000, L500.4100 ####[facility] [address] [place], [address] Basophils/100 WBC (Bld) 0.7 % Normal 0-1 [facility] Comment on above: Order Comment: Order Date: 12/13/24Order Info: [id number] - CBCDOrder Info: [id number] - SED Performed By: #### L 501.9520, L501.9985, L509.1000, L101.9900, L100.0100, L500.4050, L502.0250, L506.1000, L500.4100 ####[facility] [address] [place], [address] Eosinophils/100 WBC (Bld) 3.0 % Normal 0-5 [facility] Comment on above: Order Comment: Order Date: 12/13/24Order Info: [id number]- - CBCDOrder Info: [id number] - SED Performed By: #### L 501.9520, L501.9985, L509.1000, L101.9900, L100.0100, L500.4050, L502.0250, L506.1000, L500.4100 ####[facility] [address] [place], [address] Erythrocyte distribution width (RBC) [Ratio] 14.6 % Normal 11.6-14.6 [facility] Comment on above: Order Comment: Order Date: 12/13/24Order Info: [id number]- - CBCDOrder Info: [id number] - SED Performed By: #### L 501.9520, L501.9985, L509.1000, L101.9900, L100.0100, L500.4050, L502.0250, L506.1000, L500.4100 ####[facility] [address] [place], [place], [address] Hematocrit (Bld) [Volume fraction] 36.5 % Low 37-47 [facility] Comment on above: Order Comment: Order Date: 12/13/24Order Info: [id number] - CBCDOrder Info: [id number] - SED Performed By: #### L 501.9520, L501.9985, L509.1000, L101.9900, L100.0100, L500.4050, L502.0250, L506.1000, L500.4100 ####[facility] [address] [place], [place], [phone] Hemoglobin (Bld) [Mass/Vol] 11.6 g/dL Low 12.0-15.0 [facility] Comment on above: Order Comment: Order Date: 12/13/24Order Info: [id number]- - CBCDOrder Info: [id number] - SED Performed By: #### L 501.9520, L501.9985, L509.1000, L101.9900, L100.0100, L500.4050, L502.0250, L506.1000, L500.4100 ####[facility] [address] [place], [place], [phone] IG% 0.300 Normal 0.0-0.9 [facility] Comment on above: Order Comment: Order Date: 12/13/24Order Info: [id number] - CBCDOrder Info: [id number] - SED Result Comment: IG% - Immature Granulocytes (promyelocytes, myelocytes and metamyelocytes) > 1% indicates that a LEFT SHIFT is Present. Performed By: #### L 501.9520, L501.9985, L509.1000, L101.9900, L100.0100, L500.4050, L502.0250, L506.1000, L500.4100 ####[facility] [address] [place], [address] Lymphocytes/100 WBC (Bld) 26.8 % Normal 19-41 [facility] Comment on above: Order Comment: Order Date: 12/13/24Order Info: [id number]- - CBCDOrder Info: [id number] - SED Performed By: #### L 501.9520, L501.9985, L509.1000, L101.9900, L100.0100, L500.4050, L502.0250, L506.1000, L500.4100 ####[facility] [address] [place], [address] MCH (RBC) [Entitic mass] 29.0 pg Normal 27.0-32.0 [facility] Comment on above: Order Comment: Order Date: 12/13/24Order Info: [id number] - CBCDOrder Info: [id number] - SED Performed By: #### L 501.9520, L501.9985, L509.1000, L101.9900, L100.0100, L500.4050, L502.0250, L506.1000, L500.4100 ####[facility] [address] [place], [address] MCHC (RBC) [Mass/Vol] 31.8 g/dL Low 32-36 [facility] Comment on above: Order Comment: Order Date: 12/13/24Order Info: 018- - CBCDOrder Info: [id number] - SED Performed By: #### L 501.9520, L501.9985, L509.1000, L101.9900, L100.0100, L500.4050, L502.0250, L506.1000, L500.4100 ####[facility] [address] [place], [address] MCV (RBC) [Entitic vol] 91.3 fL Normal 81-99 [facility] Comment on above: Order Comment: Order Date: 12/13/24Order Info: [id number] - CBCDOrder Info: [id number] - SED Performed By: #### L 501.9520, L501.9985, L509.1000, L101.9900, L100.0100, L500.4050, L502.0250, L506.1000, L500.4100 ####[facility] [address] [place], [address] Monocytes/100 WBC (Bld) 6.2 % Normal 0-10 [facility] Comment on above: Order Comment: Order Date: 12/13/24Order Info: [id number] - CBCDOrder Info: [id number] - SED Performed By: #### L 501.9520, L501.9985, L509.1000, L101.9900, L100.0100, L500.4050, L502.0250, L506.1000, L500.4100 ####[facility] [address] [place], [address] Neutrophils/100 WBC (Bld) 63.0 % Normal 47-70 [facility] Comment on above: Order Comment: Order Date: 12/13/24Order Info: 018- - CBCDOrder Info: [id number] - SED Performed By: #### L 501.9520, L501.9985, L509.1000, L101.9900, L100.0100, L500.4050, L502.0250, L506.1000, L500.4100 ####[facility] [address] [place], [address] Nucleated RBC (Bld) [#/Vol] 0 10*3/uL Normal 0-5 [facility] Comment on above: Order Comment: Order Date: 12/13/24Order Info: [id number] - CBCDOrder Info: [id number] - SED Performed By: #### L 501.9520, L501.9985, L509.1000, L101.9900, L100.0100, L500.4050, L502.0250, L506.1000, L500.4100 ####[facility] [address] [place], [address] Platelet mean volume (Bld) [Entitic vol] 11.8 fL Normal 6.2-12.0 [facility] Comment on above: Order Comment: Order Date: 12/13/24Order Info: [id number] - CBCDOrder Info: [id number] - SED Performed By: #### L 501.9520, L501.9985, L509.1000, L101.9900, L100.0100, L500.4050, L502.0250, L506.1000, L500.4100 ####[facility] [address] [place], [address] Platelets (Bld) [#/Vol] 201 10*3/uL Normal 150-450 [facility] Comment on above: Order Comment: Order Date: 12/13/24Order Info: [id number] - CBCDOrder Info: [id number] - SED Performed By: #### L 501.9520, L501.9985, L509.1000, L101.9900, L100.0100, L500.4050, L502.0250, L506.1000, L500.4100 ####[facility] [address] [place], [address] RBC (Bld) [#/Vol] 4.00 10*6/uL Low 4.2-5.4 [facility] Comment on above: Order Comment: Order Date: 12/13/24Order Info: [id number] - CBCDOrder Info: [id number] - SED Performed By: #### L 501.9520, L501.9985, L509.1000, L101.9900, L100.0100, L500.4050, L502.0250, L506.1000, L500.4100 ####[facility] [address] [place], [address] RDW SD 47.9 fl High 35.1-43.9 [facility] Comment on above: Order Comment: Order Date: 12/13/24Order Info: [id number] - CBCDOrder Info: [id number] - SED Performed By: #### L 501.9520, L501.9985, L509.1000, L101.9900, L100.0100, L500.4050, L502.0250, L506.1000, L500.4100 ####[facility] [address] [place], [address] WBC (Bld) [#/Vol] 6.0 10*3/uL Normal 4.4-11.0 [facility] Comment on above: Order Comment: Order Date: 12/13/24Order Info: [id number] - CBCDOrder Info: [id number] - SED Performed By: #### L 501.9520, L501.9985, L509.1000, L101.9900, L100.0100, L500.4050, L502.0250, L506.1000, L500.4100 ####[facility] [address] [place], [place], [phone] Comprehensive Metabolic Prof [facility] 12-19-2024 Albumin [Mass/Vol] 3.1 g/dL Low 3.2-5.0 [facility] Comment on above: Order Comment: Order Date: 12/13/24Order Info: [id number] - CMPOrder Info: [id number] - LIPIDOrder Info: [id number] - TSH Performed By: #### L 501.9520, L501.9985, L509.1000, L101.9900, L100.0100, L500.4050, L502.0250, L506.1000, L500.4100 ####[facility] [address] [place], [address] Albumin/Globulin [Mass ratio] 0.7 {ratio} Low 0.9-2.4 [facility] Comment on above: Order Comment: Order Date: 12/13/24Order Info: [id number] - CMPOrder Info: [id number] - LIPIDOrder Info: [id number] - TSH Performed By: #### L 501.9520, L501.9985, L509.1000, L101.9900, L100.0100, L500.4050, L502.0250, L506.1000, L500.4100 ####[facility] [address] [place], [address] ALK P 119 U/L High 45-117 [facility] Comment on above: Order Comment: Order Date: 12/13/24Order Info: [id number] - CMPOrder Info: [id number] - LIPIDOrder Info: [id number] - TSH Performed By: #### L 501.9520, L501.9985, L509.1000, L101.9900, L100.0100, L500.4050, L502.0250, L506.1000, L500.4100 ####[facility] [address] [place], [address] ALT [Catalytic activity/Vol] 24 U/L Normal 13-56 [facility] Comment on above: Order Comment: Order Date: 12/13/24Order Info: [id number] - CMPOrder Info: [id number] - LIPIDOrder Info: [id number] - TSH Performed By: #### L 501.9520, L501.9985, L509.1000, L101.9900, L100.0100, L500.4050, L502.0250, L506.1000, L500.4100 ####[facility] [address] [place], [address] AST [Catalytic activity/Vol] 24 U/L Normal 15-37 [facility] Comment on above: Order Comment: Order Date: 12/13/24Order Info: [id number] - CMPOrder Info: [id number] - LIPIDOrder Info: [id number] - TSH Performed By: #### L 501.9520, L501.9985, L509.1000, L101.9900, L100.0100, L500.4050, L502.0250, L506.1000, L500.4100 ####[facility] [address] [place], [place], [phone] Bilirubin [Mass/Vol] 0.70 mg/dL Normal 0.20-1.[address] [facility] Comment on above: Order Comment: Order Date: 12/13/24Order Info: [id number] - CMPOrder Info: [id number] - LIPIDOrder Info: [id number] - TSH Result Comment: For patients on eltrombopag therapy, use of Dimension Kermit TBIL is not recommended. Performed By: #### L 501.9520, L501.9985, L509.1000, L101.9900, L100.0100, L500.4050, L502.0250, L506.1000, L500.4100 ####[facility] [address] [place], [place], [phone] BUN/CRE 18.9 RATIO Normal 10-20 [facility] Comment on above: Order Comment: Order Date: 12/13/24Order Info: [id number] - CMPOrder Info: [id number] - LIPIDOrder Info: [id number] - TSH Performed By: #### L 501.9520, L501.9985, L509.1000, L101.9900, L100.0100, L500.4050, L502.0250, L506.1000, L500.4100 ####[facility] [address] [place], [place], [id number] CA,Total 9.1 mg/dL Normal 8.5-10.1 [facility] Comment on above: Order Comment: Order Date: 12/13/24Order Info: [id number] - CMPOrder Info: [id number] - LIPIDOrder Info: [id number] - TSH Performed By: #### L 501.9520, L501.9985, L509.1000, L101.9900, L100.0100, L500.4050, L502.0250, L506.1000, L500.4100 ####[facility] [address] [place], [place], [phone] Chloride [Moles/Vol] 107 mmol/L Normal 98-[address] [facility] Comment on above: Order Comment: Order Date: 12/13/24Order Info: [id number] - CMPOrder Info: [id number] - LIPIDOrder Info: [id number] - TSH Performed By: #### L 501.9520, L501.9985, L509.1000, L101.9900, L100.0100, L500.4050, L502.0250, L506.1000, L500.4100 ####[facility] [address] [place], [place], [phone] CO2 [Moles/Vol] 28.0 mmol/L Normal 21.0-32.0 [facility] Comment on above: Order Comment: Order Date: 12/13/24Order Info: [id number] - CMPOrder Info: [id number] - LIPIDOrder Info: [id number] - TSH Performed By: #### L 501.9520, L501.9985, L509.1000, L101.9900, L100.0100, L500.4050, L502.0250, L506.1000, L500.4100 ####[facility] [address] [place], [place], [phone] Creatinine [Mass/Vol] 0.85 mg/dL Normal 0.55-1.02 [facility] Comment on above: Order Comment: Order Date: 12/13/24Order Info: [id number] - CMPOrder Info: [id number] - LIPIDOrder Info: [id number] - TSH Result Comment: The validity of the calculated GFR GFRAA in patients over 70 years has not been determined. Clinical correlation is essential. Performed By: #### L 501.9520, L501.9985, L509.1000, L101.9900, L100.0100, L500.4050, L502.0250, L506.1000, L500.4100 ####[facility] [address] [place], [place], [address] EST GFR - AA 85 mL/min Normal >60 [facility] Comment on above: Order Comment: Order Date: 12/13/24Order Info: [id number] - CMPOrder Info: [id number] - LIPIDOrder Info: [id number] - TSH Result Comment: Afri can Icelandic GFR Calc Performed By: #### L 501.9520, L501.9985, L509.1000, L101.9900, L100.0100, L500.4050, L502.0250, L506.1000, L500.4100 ####[facility] [address] [place], [address] GAP 2 Low 5-15 [facility] Comment on above: Order Comment: Order Date: 12/13/24Order Info: 07-1 - CMPOrder Info: [id number] - LIPIDOrder Info: [id number] - TSH Performed By: #### L 501.9520, L501.9985, L509.1000, L101.9900, L100.0100, L500.4050, L502.0250, L506.1000, L500.4100 ####[facility] [address] [place], [place], [address] GFR/1.73 sq M.predicted among non-blacks MDRD (S/P/Bld) [Vol rate/Area] 71 mL/min/{1.73_m2} Normal >60 [facility] Comment on above: Order Comment: Order Date: 12/13/24Order Info: [id number] - CMPOrder Info: [id number] - LIPIDOrder Info: [id number] - TSH Result Comment: Non- GFR Calc Performed By: #### L 501.9520, L501.9985, L509.1000, L101.9900, L100.0100, L500.4050, L502.0250, L506.1000, L500.4100 ####[facility] [address] [place], [address] Globulin (S) [Mass/Vol] 4.6 g/dL High 2.2-4.2 [facility] Comment on above: Order Comment: Order Date: 12/13/24Order Info: [id number] - CMPOrder Info: [id number] - LIPIDOrder Info: [id number] - TSH Performed By: #### L 501.9520, L501.9985, L509.1000, L101.9900, L100.0100, L500.4050, L502.0250, L506.1000, L500.4100 ####[facility] [address] [place], [address] Glucose [Mass/Vol] 96 mg/dL Normal 74-106 [facility] Comment on above: Order Comment: Order Date: 12/13/24Order Info: [id number] - CMPOrder Info: [id number] - LIPIDOrder Info: [id number] - TSH Performed By: #### L 501.9520, L501.9985, L509.1000, L101.9900, L100.0100, L500.4050, L502.0250, L506.1000, L500.4100 ####[facility] [address] [place], [address] Potassium [Moles/Vol] 4.3 mmol/L Normal 3.5-5.1 [facility] Comment on above: Order Comment: Order Date: 12/13/24Order Info: [id number] - CMPOrder Info: [id number] - LIPIDOrder Info: [id number] - TSH Performed By: #### L 501.9520, L501.9985, L509.1000, L101.9900, L100.0100, L500.4050, L502.0250, L506.1000, L500.4100 ####[facility] [address] [place], [address] Sodium [Moles/Vol] 137 mmol/L Normal 136-145 [facility] Comment on above: Order Comment: Order Date: 12/13/24Order Info: [id number] - CMPOrder Info: [id number] - LIPIDOrder Info: [id number] - TSH Performed By: #### L 501.9520, L501.9985, L509.1000, L101.9900, L100.0100, L500.4050, L502.0250, L506.1000, L500.4100 ####[facility] [address] [place], [address] T PROT 7.7 g/dL Normal 6.4-8.2 [facility] Comment on above: Order Comment: Order Date: 12/13/24Order Info: [id number] - CMPOrder Info: [id number] - LIPIDOrder Info: [id number] - TSH Performed By: #### L 501.9520, L501.9985, L509.1000, L101.9900, L100.0100, L500.4050, L502.0250, L506.1000, L500.4100 ####[facility] [address] [place], [address] Urea nitrogen [Mass/Vol] 16 mg/dL Normal 7-18 [facility] Comment on above: Order Comment: Order Date: 12/13/24Order Info: [id number] - CMPOrder Info: [id number] - LIPIDOrder Info: [id number] - TSH Performed By: #### L 501.9520, L501.9985, L509.1000, L101.9900, L100.0100, L500.4050, L502.0250, L506.1000, L500.4100 ####[facility] [address] [place], [place], [phone] Erythrocyte Sed Rateon 12-19 SED RATE 37 mm/hr High 0-30 [facility] Comment on above: Order Comment: Order Date: 12/13/24Order Info: [id number] - CBCDOrder Info: [id number] - SED Performed By: #### L 501.9520, L501.9985, L509.1000, L101.9900, L100.0100, L500.4050, L502.0250, L506.1000, L500.4100 ####[facility] [address] [place], [place], [phone] Hemoglobin A1con 12-19-2024 HbA1c (Bld) [Mass fraction] 5.9 % High 3.8-5.6 [facility] Comment on above: Order Comment: Order Date: 12/13/24Order Info: [id number] - A1C Result Comment: Norm al < 5.7 % Prediabetic 5.7 - 6.4 % Diabetic >or= 6.5 % Please note range changes. Performed By: #### L 501.9520, L501.9985, L509.1000, L101.9900, L100.0100, L500.4050, L502.0250, L506.1000, L500.4100 ####[facility] [address] [place], [place], [phone] Lipid Profileon 12-19-2024 Cholesterol [Mass/Vol] 150 mg/dL Normal 200 [facility] Comment on above: Order Comment: Order Date: 12/13/24Order Info: [id number] - CMPOrder Info: [id number] - LIPIDOrder Info: [id number] - TSH Result Comment: <200 mg/dL Desirable 200-240 mg/dL Borderline >240 mg/dL High Risk Performed By: #### L 501.9520, L501.9985, L509.1000, L101.9900, L100.0100, L500.4050, L502.0250, L506.1000, L500.4100 ####[facility] [address] [place], [place], [phone] Cholesterol in HDL [Mass/Vol] 73 mg/dL Normal [facility] Comment on above: Order Comment: Order Date: 12/13/24Order Info: [id number] - CMPOrder Info: [id number] - LIPIDOrder Info: [id number] - TSH Result Comment: The drugs N-Acetylcysteine and Metamizole may falsely depress this assay. Reference Range HDL <40 mg/dL Low HDL Cholesterol HDL >or= 60 mg/dL High HDL Cholesterol Performed By: #### L 501.9520, L501.9985, L509.1000, L101.9900, L100.0100, L500.4050, L502.0250, L506.1000, L500.4100 ####[facility] [address] [place], [address] Cholesterol in LDL [Mass/Vol] 62 mg/dL Normal 0-130 [facility] Comment on above: Order Comment: Order Date: 12/13/24Order Info: [id number] - CMPOrder Info: [id number] - LIPIDOrder Info: [id number] - TSH Performed By: #### L 501.9520, L501.9985, L509.1000, L101.9900, L100.0100, L500.4050, L502.0250, L506.1000, L500.4100 ####[facility] [address] [place], [address] Cholesterol in VLDL [Mass/Vol] 15 mg/dL Normal 5-40 [facility] Comment on above: Order Comment: Order Date: 12/13/24Order Info: [id number] - CMPOrder Info: [id number] - LIPIDOrder Info: [id number] - TSH Performed By: #### L 501.9520, L501.9985, L509.1000, L101.9900, L100.0100, L500.4050, L502.0250, L506.1000, L500.4100 ####[facility] [address] [place], [address] Triglyceride [Mass/Vol] 75 mg/dL Normal [facility] Comment on above: Order Comment: Order Date: 12/13/24Order Info: [id number] - CMPOrder Info: [id number] - LIPIDOrder Info: [id number] - TSH Result Comment: The drugs N-Acetylcysteine and Metamizole may falsely depress this assay. Serum Triglycerides Reference Interval Normal <150 mg/dL Borderline high 150 - 199 mg/dL High 200 - 499 mg/dL Very High > or = 500 mg/dL Performed By: #### L 501.9520, L501.9985, L509.1000, L101.9900, L100.0100, L500.4050, L502.0250, L506.1000, L500.4100 ####[facility] [address] [place], [place], [phone] Microalb:Creat Ratio,Random URon 12-19-2024 Creatinine [Mass/Vol] 71.60 mg/dL Normal NO RAN GE EST. [facility] Comment on above: Order Comment: Order Date: 12/13/24Order Info: [id number] - MIACRE Performed By: #### L 501.9520, L501.9985, L509.1000, L101.9900, L100.0100, L500.4050, L502.0250, L506.1000, L500.4100 ####[facility] [address] [place], [place], [phone] MALB:CRE 27.8 mg/g CRE Normal <30 mg/g CRE [facility] Comment on above: Order Comment: Order Date: 12/13/24Order Info: [id number] - MIACRE Performed By: #### L 501.9520, L501.9985, L509.1000, L101.9900, L100.0100, L500.4050, L502.0250, L506.1000, L500.4100 ####[facility] [address] [place], [place], [phone] MICROALBUMIN,UR 19.9 mg/L Normal NO RANGE EST. [facility] Comment on above: Order Comment: Order Date: 12/13/24Order Info: [id number] - MIACRE Performed By: #### L 501.9520, L501.9985, L509.1000, L101.9900, L100.0100, L500.4050, L502.0250, L506.1000, L500.4100 ####[facility] [address] [place], [address] PTHINon 12-19-2024 PTH 54.7 pg/mL Normal 18.4-80.1 [facility] Comment on above: Order Comment: Order Date: 12/13/24Order Info: [id number] - PTHIN Performed By: #### L 501.9520, L501.9985, L509.1000, L101.9900, L100.0100, L500.4050, L502.0250, L506.1000, L500.4100 ####[facility] [address] [place], [address] Thyroid Stim Hormone (TSH)on 12-19-2024 TSH 2.030 uIU/mL Normal 0.358-3.740 [facility] Comment on above: Order Comment: Order Date: 12/13/24Order Info: [id number] - CMPOrder Info: [id number] - LIPIDOrder Info: [id number] - TSH Performed By: #### L 501.9520, L501.9985, L509.1000, L101.9900, L100.0100, L500.4050, L502.0250, L506.1000, L500.4100 ####[facility] [address] [place], [address] Vitamin D,25 Hydroxyon 12-19 Vitamin D 25-OH 42.7 ng/mL Normal [facility] Comment on above: Order Comment: Order Date: 12/13/24Order Info: [id number] - VITD25 Result Comment: Bethany min D 25(OH) Status Range Deficiency <20 ng/mL (50nmol/L) Insufficiency 20 - 30 ng/mL (50 - 75 nmol/L) Sufficiency 30 - 100 ng/mL (75 - 250 nmol/L) Toxicity >100 ng/mL (>250 nmol/L) Performed By: #### L 501.9520, L501.9985, L509.1000, L101.9900, L100.0100, L500.4050, L502.0250, L506.1000, L500.4100 ####[facility] [address] [place], [address] XR KNEE RIGHT 2 VIEWS (STAND KATRIN)on [...] ThuJan 26, 2024 4:57:48 PM EST Normal [facility] Comment on above: Order Comment: Injur y/Trauma [...] unremarkable. IMPRESSION: Severe right knee tricompartmental osteoarthritis. [employer] ([employer]) Workstation ID: [id number] Dictated by: ROBE COLIN on ThuJan 07, 2024 2:25:02 PM EST Transcribed by: LUCY NEWELL on ThuJan 07, 2024 2:25:02 PM EST Finalized by: ROBE COLIN on Laila Jan 07, 2024 10:52:02 PM EST Normal [facility] Comment on above: Order Comment: Nicolas ayers only schedule at [facility]. Do not schedule Ct scan appointment with patient. Ordering Doctor's office will call to schedule Ct scan appointment. Injury/Trauma or Illness?:Illness/Other How long have you had these symptoms (acute/chronic)?:Acute Reason for exam?:pre operative for upcoming Rt TKR Type of Exam?:Initial Additional signs and symptoms?:. Basophil percentageOrdered B y: Kirill Newell on 11-12-2023 Bilirubin [Mass/Vol] 0.70 mg/dL 0.20-1.[address] [facility] Comment on above: For patients on eltr ombopag therapy, use of Dimension Kermit TBIL is not recommended. Chloride [Moles/Vol] 107 mmol/L 98-[address] [facility] Glucose [Mass/Vol] 97 mg/dL 74-106 [facility] Potassium [Moles/Vol] 4.3 mmol/L 3.5-5.1 [facility] Protein [Mass/Vol] 8.7 g/dL 6.4-8.2 [facility] Sodium [Moles/Vol] 140 mmol/L 136-145 [facility] WBC (Bld) [#/Vol] 7.7 10*3/uL 4.4-11.0 [facility] Blood erythrocytes count (nu mber/volume)Ordered By: Kirill Newell on 11-12-2023 RBC (Bld) [#/Vol] 4.16 10*6/uL 4.2-5.4 [facility] Blood hemoglobin measurement (mass/volume)Ordered By: Kirill Newell on 11-12-2023 Hemoglobin (Bld) [Mass/Vol] 11.5 g/dL 12.0-15.0 [facility] Blood platelet mean volumeOr dered By: Kirill Newell on 11-12-2023 Platelet mean volume (Bld) [Entitic vol] 11.2 fL 6.2-12.0 [facility] Determination of erythrocyte mean corpuscular volume (MCV)Ordered By: Kirill Newell on 11-12-2023 MCV (RBC) [Entitic vol] 89.2 fL 81-99 [facility] Erythrocyte sedimentation ra teOrdered By: Kirill Newell on 11-12-2023 ESR (Bld) [Velocity] 48 mm/h 0-[address] [facility] Hematocrit Auto (Bld) [Volum e fraction]Ordered By: Kirill Newell on 11-12-2023 Hematocrit (Bld) [Volume fraction] 37.1 % 37-47 [facility] - Chemistry and C hemistry - challengeOrdered By: Kirill Newell on 11-12-2023 ALP [Catalytic activity/Vol] 110 U/L 45-117 [facility] ALT [Catalytic activity/Vol] 21 U/L 13-56 [facility] CO2 [Moles/Vol] 28.0 mmol/L 21.0-32.0 [facility] Globulin (S) [Mass/Vol] 5.5 g/dL 2.2-4.2 [facility] Urea nitrogen/Creatinine [Mass ratio] 19.0 mg/mg 10-20 [facility] - Hematology and Cell countsOrdered By: Kirill Newell on 11-12-2023 Erythrocyte distribution width (RBC) [Entitic vol] 51.8 fL 35.1-43.9 [facility] Erythrocyte distribution width (RBC) [Ratio] 15.9 % 11.6-14.6 [facility] MCH (RBC) [Entitic mass] 27.6 pg 27.0-32.0 [facility] MCHC Auto (RBC) [Mass/Vol]Or dered By: Kirill Newell on 11-12-2023 MCHC (RBC) [Mass/Vol] 31.0 g/dL 32-36 [facility] No Panel InformationOrdered By: Kirill Newell on 11-12-2023 Addendum Document Comment . [facility] Comment on above: The SPE pattern demo nstrates elevation of regionscontaining acute phase proteins suggesting anacute/subacute inflammatory response. Some conditions inwhich this pattern has been observed include: bacterial,viral or parasitic infection; mechanical, physical orchemical trauma; and cardiac failure. The gamma globulinregion is unremarkable and evidence of monoclonal proteinis not apparent.Performed at: [facility] [address] [id number] Director: Ha Gutierrez PhD, Phone: [phone] [id number] 0.4 g/dL 0.0-0.4 [facility] Vbalx-3-Bwqakugcy 1.2 g/dL 0.4-1.0 [facility] Anti-Nuclear Antibody Screen Negative Negative [facility] Comment on above: Performed at: [facility] [address] [id number] Director: Ha Gutierrez PhD, Phone: [phone] Estimated GFR (MDRD) Amer 86 mL/min >60 [facility] Comment on above: GFR Calc Estimated GFR (MDRD) Non-Af Amer 71 mL/min >60 [facility] Comment on above: Non- GFR Calc Gamma Globulins 1.8 g/dL 0.4-1.8 [facility] Parathyroid Hormone (Intact) 69.9 pg/mL 18.4-80.1 [facility] Urine Microalbumin/Creatinine Ratio 70.0 mg/g CRE <30 [facility] Vitamin D 25-Hydroxy 37.3 ng/mL [facility] Comment on above: Vitamin D 25(OH) Sta tus Range Deficiency <20 ng/mL (50nmol/L) Insufficiency 20 - 30 ng/mL (50 - 75 nmol/L) Sufficiency 30 - 100 ng/mL (75 - 250 nmol/L) Toxicity >100 ng/mL (>250 nmol/L) Platelets bldOrdered By: Theresa Newell on 11-12-2023 Platelets (Bld) [#/Vol] 272 10*3/uL 150-450 [facility] Protein Fractions Elph [Inte rp]Ordered By: Kirill Newell on 11-12-2023 Protein Fractions [Interp] Comment . [facility] Comment on above: Protein electrophore sis scan will follow via computer,mail, or spice room worker delivery. Serum albumin to globulin ra allen by protein electrophoresisOrdered By: Kirill Newell on 11-12-2023 Albumin/Globulin Elph [Mass ratio] 0.7 0.7-1.7 [facility] Serum globulin measurement ( mass/volume)Ordered By: Kirill Newell on 11-12-2023 Globulin (S) [Mass/Vol] 4.6 g/dL 2.2-3.9 [facility] Serum or plasma C reactive p rotein measurement (mass/volume)Ordered By: Kirill Newell on 11-12-2023 CRP [Mass/Vol] 15.50 mg/L 0.0-3.0 [facility] Comment on above: C-Reactive Protein ( CRP) provides useful information for thediagnosis, therapy and monitoring of inflammatory processesand associated diseases. For the evaluation of Relative Riskfor Cardiovascular Disease, a High Sensitivity CRP (HSCRP)should be ordered. Serum or plasma albumin erasmo urement (mass/volume)Ordered By: Kirill Newell on 11-12-2023 Albumin [Mass/Vol] 3.2 g/dL 2.9-4.4 [facility] [place] Serum or plasma albumin/glob ulin mass ratioOrdered By: Kirill Newell on 11-12-2023 Albumin/Globulin [Mass ratio] 0.6 {ratio} 0.9-2.4 [facility] Serum or plasma beta globuli n measurement by electrophoresis (mass/volume)Ordered By: Kirill Newell on 11-12-2023 Beta globulin Elph [Mass/Vol] 1.2 g/dL 0.7-1.3 [facility] Serum or plasma calcium erasmo urement (mass/volume)Ordered By: Kirill Newell on 11-12-2023 Calcium [Mass/Vol] 9.1 mg/dL 8.5-10.1 [facility] [place] Serum or plasma creatinine m easurement (mass/volume)Ordered By: Kirill Newell on 11-12-2023 Creatinine [Mass/Vol] 0.84 mg/dL 0.55-1.02 [facility] Comment on above: The validity of the calculated GFR & GFRAA in patients over 70 years has not been determined. Clinical correlation is essential. Serum or plasma protein mono clonal measurement by electrophoresis (mass/volume)Ordered By: Kirill Newell on 11-12-2023 Protein.monoclonal Elph [Mass/Vol] Not Observed g/dL Not Observed [facility] Serum or plasma urea nitroge n measurement (mass/volume)Ordered By: Kirill Newell on 11-12-2023 Urea nitrogen [Mass/Vol] 16 mg/dL 7-18 [facility] Serum rheumatoid factor dete ctionOrdered By: Kirill Newell on 11-12-2023 Rheumatoid factor Ql (S) < 10.0 IU/mL <15 [facility] Thin prep Papanicolaou smear with manual screeningOrdered By: Kirill Newell on 11-12-2023 Thin prep Papanicolaou smear with manual screening 26 U/L 15-37 [facility] Thin prep Papanicolaou smear with manual screening 5 5-15 [facility] Thin prep Papanicolaou smear with manual screening 156.0 mg/L NO RANGE EST. [facility] Total protein bloodOrdered B y: Kirill Newell on 11-12-2023 Protein [Mass/Vol] 7.8 g/dL 6.0-8.5 [facility] [place] Urine creatinine measurement (mass/volume)Ordered By: Kirill Newell on 11-12-2023 Creatinine (U) [Mass/Vol] 223.00 mg/dL NO RANGE EST. [facility] Whole blood hemoglobin A1c/t otal hemoglobin ratio (mass fraction)Ordered By: Kirill Newell on 11-12-2023 HbA1c (Bld) [Mass fraction] 5.7 % 3.8-5.6 [facility] Comment on above: Normal < 5.7 % Predi abetic 5.7 - 6.4 % Diabetic >or= 6.5 % Please note range changes. ECG 12 Leadon 01-21-2023 Atrial Rate [facility] [place] [facility] P-R Interval [facility] Q-T Interval [facility] Q-T Interval (corrected) [facility] QRS Duration [facility] QTC Calculation (Bezet) [facility] [place] [facility] [place] [facility] Ventricular Rate [facility] ECG 12 LeadOrdered By: Virginie Guerra on 02-19-2022 Atrial Rate [facility] [place] [facility] P-R Interval [facility] Q-T Interval [facility] Q-T Interval (corrected) [facility] QRS Duration [facility] QTC Calculation (Bezet) O [facility] [place] [facility] [place] [facility] Ventricular Rate [facility] Basic metabolic 2000 panelon 01-22-2022 Anion gap [Moles/Vol] 15 mmol/L 10 - 2 0 mmol/L [facility] Calcium [Mass/Vol] 8.8 mg/dL 8.4 - 10. 2 mg/dL [facility] Chloride [Moles/Vol] 104 mmol/L 98 - 10 8 mmol/L [facility] Creatinine [Mass/Vol] 0.75 mg/dL 0.60 - 1.20 [facility] GFR/1.73 sq M.predicted CKD-EPI (S/P/Bld) [Vol rate/Area] 83 >=60 mL/min/1.73 m2 [facility] Glucose [Mass/Vol] 90 mg/dL 65 - 99 mg/dL [facility] HCO3 [Moles/Vol] 24 mmol/L 21 - 32 mmol/L [facility] Interpretation and review of laboratory results Normal [facility] Potassium [Moles/Vol] 4.3 mmol/L 3.5 - 5.1 mmol/L [facility] Sodium [Moles/Vol] 139 mmol/L 135 - 145 mmol/L [facility] Urea nitrogen [Mass/Vol] 10 mg/dL 8 - 25 mg/d L [facility] Urea nitrogen/Creatinine [Mass ratio] 13.3 mg/mg [facility] The eGFR should be used for monitoring renal function only and not for medication dosing. [facility] CBC panel Auto (Bld)on 01-22 Erythrocyte distribution width (RBC) [Entitic vol] 15.9 % High 11.6 - 14.8 % [facility] Hematocrit (Bld) [Volume fraction] 33.2 % Low 36.0 - 46.0 % [facility] Hemoglobin (Bld) [Mass/Vol] 10.4 g/dL Low 12.0 - 16.0 g/dL [facility] Interpretation and review of laboratory results Abnormal [facility] MCH (RBC) [Entitic mass] 27.2 pg 26. 0 - 34.0 pg [facility] MCHC (RBC) [Mass/Vol] 31.3 g/dL 31.0 - 37.0 g/dL [facility] MCV (RBC) [Entitic vol] 86.9 fL 80.0 - 100.0 fL [facility] Nucleated RBC (Bld) [#/Vol] 0.00 10*3/uL [facility] Nucleated RBC/100 WBC (Bld) [Ratio] 0.0 % [facility] Platelet mean volume (Bld) [Entitic vol] 11.9 fL 9.4 - 12.4 fL [facility] Platelets (Bld) [#/Vol] 176 10*3/uL [facility] RBC (Bld) [#/Vol] 3.82 10*6/uL Low [facility] ealt WBC (Bld) [#/Vol] 5.53 10*3/uL [facility] 12 Leadon 01-22-2022 Atrial Rate 65 BPM [facility] [place] 64 degrees [facility] P-R Interval 300 ms [facility] Q-T Interval 444 ms [facility] QRS Duration 94 ms [facility] QTC Calculation (Bezet) 461 ms [facility] [place] 10 degrees [facility] [place] 90 degrees [facility] Ventricular Rate [address] [facility] th Sinus rhythm with 1s t degree AV block Otherwise normal ECG Confirmed by REMY SEGURA MD ([id number]) on 01/22/2022 9:10:34 AM MUSE [facility] Atrial Rate 64 BPM [facility] [place] 48 degrees [facility] P-R Interval 272 ms [facility] Q-T Interval 438 ms [facility] QRS Duration 96 ms [facility] QTC Calculation (Bezet) 451 ms [facility] [place] 34 degrees [facility] [place] 89 degrees [facility] Ventricular Rate [address] [facility] th Sinus rhythm with 1s t degree AV block Nonspecific T wave abnormality Abnormal ECG When compared with ECG of 21-JAN-2022 12:50, (unconfirmed) No significant change was found Confirmed by REMY SEGURA MD ([id number]) on 01/22/2022 9:08:00 AM [facility] APTTon 02-22-2022 aPTT Coag (Bld) [Time] 29 s [facility] Basic metabolic 1999 panelon 01-21-2022 Anion gap [Moles/Vol] 16 mmol/L 10 - 2 0 mmol/L [facility] Calcium [Mass/Vol] 8.5 mg/dL 8.4 - 10. 2 mg/dL [facility] Chloride [Moles/Vol] 106 mmol/L 98 - 10 8 mmol/L [facility] Creatinine [Mass/Vol] 0.67 mg/dL 0.60 - 1.20 Oh [facility] GFR/1.73 sq M.predicted CKD-EPI (S/P/Bld) [Vol rate/Area] 91 >=60 mL/min/1.73 m2 [facility] Glucose [Mass/Vol] 110 mg/dL High 65 - 99 mg/dL [facility] HCO3 [Moles/Vol] 21 mmol/L 21 - 32 mmol/L [facility] Interpretation and review of laboratory results Abnormal [facility] Potassium [Moles/Vol] 3.9 mmol/L 3.5 - 5.1 mmol/L [facility] Sodium [Moles/Vol] 139 mmol/L 135 - 145 mmol/L [facility] Urea nitrogen [Mass/Vol] 14 mg/dL 8 - 25 mg/d L [facility] Urea nitrogen/Creatinine [Mass ratio] 20.9 mg/mg High [facility] The eGFR should be used for monitoring renal function only and not for medication dosing. [facility] Basic metabolic 1999 panelOr dered By: Marcial Thomas on 01-21-2022 Anion gap [Moles/Vol] 17 mmol/L 10 - 2 0 mmol/L [facility] Calcium [Mass/Vol] 8.9 mg/dL 8.4 - 10. 2 mg/dL [facility] Chloride [Moles/Vol] 106 mmol/L 98 - 10 8 mmol/L [facility] Creatinine [Mass/Vol] 0.77 mg/dL 0.60 - 1.20 [facility] GFR/1.73 sq M.predicted CKD-EPI (S/P/Bld) [Vol rate/Area] 80 >=60 mL/min/1.73 m2 [facility] Glucose [Mass/Vol] 94 mg/dL 65 - 99 mg/dL [facility] HCO3 [Moles/Vol] 23 mmol/L 21 - 32 mmol/L [facility] Interpretation and review of laboratory results Normal [facility] Potassium [Moles/Vol] 4.2 mmol/L 3.5 - 5.1 mmol/L [facility] Comment on above: Slightly Hemolyzed Sodium [Moles/Vol] 142 mmol/L 135 - 145 mmol/L [facility] Urea nitrogen [Mass/Vol] 14 mg/dL 8 - 25 mg/d L [facility] Urea nitrogen/Creatinine [Mass ratio] 18.2 mg/mg [facility] The eGFR should be used for monitoring renal function only and not for medication dosing. [facility] CBC panel Auto (Bld)on 01-21 Erythrocyte distribution width (RBC) [Entitic vol] 15.7 % High 11.6 - 14.8 % [facility] Hematocrit (Bld) [Volume fraction] 32.7 % Low 36.0 - 46.0 % [facility] Hemoglobin (Bld) [Mass/Vol] 10.2 g/dL Low 12.0 - 16.0 g/dL [facility] Interpretation and review of laboratory results Abnormal [facility] MCH (RBC) [Entitic mass] 27.1 pg 26. 0 - 34.0 pg [facility] MCHC (RBC) [Mass/Vol] 31.2 g/dL 31.0 - 37.0 g/dL [facility] MCV (RBC) [Entitic vol] 86.7 fL 80.0 - 100.0 fL [facility] Nucleated RBC (Bld) [#/Vol] 0.00 10*3/uL [facility] Nucleated RBC/100 WBC (Bld) [Ratio] 0.0 % [facility] Platelet mean volume (Bld) [Entitic vol] 11.7 fL 9.4 - 12.4 fL [facility] Platelets (Bld) [#/Vol] 173 10*3/uL [facility] RBC (Bld) [#/Vol] 3.77 10*6/uL Low [facility] WBC (Bld) [#/Vol] 6.65 10*3/uL [facility] Calcium, Ionizedon 2 Calcium.ionized [Mass/Vol] 4.6 mg/dL 4.5 - 5.3 mg/dL [facility] Calcium.ionized [Mass/Vol]on 01-21-2022 Interpretation and review of laboratory results Normal [facility] Echocardiogram limited with contrastOrdered By: Nicol Pittman on 01-21-2022 AV mean gradient 5 mmHg [facility] Work Phone: [employer] Work Phone: Echocardiogram limited with contraston 01-21-2022 Patient Info Name: VICKIE GONZALEZ Age: 66 years : 1955 Gender: Female Ht: 168 cm Wt: 102 kg BSA: 2.22 m2 BP: 144 / 57 mmHg Technical Quality: Fair Exam Date: 01/21/2022 12:12 PM Patient Status: Outpatient Licensed Psychiatric Technician: Jolanta Klein RDCS, RVT Exam Type: ECHOCARDIOGRAM LIMITED WITH CONTRAST Study Info Indications - INTRAOP TAVR Attending Physician: LINDSEY PLUMMER Referring Physician: [id number] Chase; [id number] BMI: 36.32 kg/m2 Summary 1. Limited two-dimensional, [...] Nicol Pittman DO on 01/21/2022 04:13 PM [facility] Nicol Pittman DO - 01/21/2022 Patient Info Name: VICKIE GONZALEZ Age: 66 years : 1955 Gender: Female Ht: 168 cm Wt: 102 kg BSA: 2.22 m2 BP: 144 / 57 mmHg Technical Quality: Fair Exam Date: 01/21/2022 12:12 PM Patient Status: Outpatient Licensed Psychiatric Technician: Jolanta Klein RDCS, RVT Exam Type: ECHOCARDIOGRAM LIMITED WITH CONTRAST Study Info Indications - INTRAOP TAVR Attending Physician: LINDSEY PLUMMER Referring Physician: [id number], [place]; [id number] BMI: 36.32 kg/m2 Summary 1. Limited two-dimensional, [...] Nicol Pittman DO on 01/21/2022 04:13 PM [facility] Radiology Study observation (narrative) [facility] INR Coag (PPP) [Relative shandra e]on 01-21-2022 Interpretation and review of laboratory results Abnormal [facility] PT Coag (PPP) [Time] 15.5 s High [facility] During the induction phase of oral anticoagulation, the INR may not reflect the anticoagulation status of the patient. Therapeutic ranges for INR's are: Most clinical situations: INR 2.0-3.0 Mechanical Prosthetic Valve: INR 2.5-3.5 Critical: INR >5.0 [facility] Laboratory - Blood bankon ABO and Rh group Nom (Bld) 5100 [facility] ABO and Rh group Nom (Bld) Blood group O Rh(D) positive [facility] Magnesiumon 01-21-2022 Magnesium [Mass/Vol] 1.8 mg/dL 1.6 - 2 .4 mg/dL [facility] Magnesium [Mass/Vol]on 01-21 Interpretation and review of laboratory results Normal [facility] No Panel Informationon 01-21 [facility] Cross Match Compatible [facility] Product Code [id number] [facility] Product ID Red Blood Cells [facility] Status Info Ready [facility] POC Venous Blood Gas Panel-P ulmon 01-21-2022 Base excess Calc (BldV) [Moles/Vol] -1.1000 mmol/L [facility] Breath rate setting Ventilator synchronized intermittent mandatory 0 [facility] Calcium.ionized [Mass/Vol] 4.8 mg/dL 4.5 - 5.3 mg/dL [facility] Carboxyhemoglobin (BldA) [Mass fraction] 1.5 <=1.5 % of total Hb [facility] Comment on above: Reference Ranges: [facility] Non-smokers: <1.5% Smokers: 1.5-5.0% Heavy Smokers: 5.0-9.0% Chloride [Moles/Vol] 109 mmol/L High 98 - 10 8 mmol/L [facility] CO2 (BldV) [Partial pressure] 47.4 mm[Hg] [facility] Glucose [Mass/Vol] 109 mg/dL High 65 - 99 mg/dL [facility] HCO3 (Bld) [Moles/Vol] 25.0 mmol/L 24.0 - 28.0 mmol/L [facility] Hematocrit (BldA) [Volume fraction] 29.7 % Low 36.0 - 46.0 % [facility] Hemoglobin (Bld) [Mass/Vol] 9.7 g/dL Low 12.0 - 16.0 g/dL [facility] Inhaled oxygen concentration 0 % [facility] Interpretation and review of laboratory results Abnormal [facility] Lactate [Moles/Vol] 0.4 mmol/L Low 0.6 - 2. 0 mmol/L [facility] Methemoglobin (BldA) [Mass fraction] <1.0 0.0 - 2.0 % [facility] Oxygen (BldV) [Partial pressure] 39 mm[Hg] [facility] Oxygen saturation in Venous blood 69.2 % 40.0 - 70.0 % [facility] Oxyhemoglobin (BldA) [Mass fraction] 67.8 % No established reference range [facility] pH (BldV) 7.33 [pH] [facility] Potassium [Moles/Vol] 3.6 mmol/L 3.5 - 5.1 mmol/L [facility] Result Notification critical results giv en to treating OR anesthesiolo [facility] Sodium [Moles/Vol] 143 mmol/L 135 - 145 mmol/L [facility] Tidal volume setting Ventilator 0 [facility] PT/INRon 01-21-2022 INR Coag (PPP) [Relative time] 1.3 {INR} High [facility] Potassium Levelon 01-21-2022 Potassium [Moles/Vol] 4.5 mmol/L 3.5 - 5.1 mmol/L [facility] Potassium [Moles/Vol]on 01-01 Interpretation and review of laboratory results Normal [facility] Prepare RBC: 4 Unitson 01-21 Product Code [id number] [facility] Unit Number [id number] [facility] Unit Number [id number] [facility] Unit Number [id number] [facility] Unit Number [id number] [facility] XR Chest 1 Viewon 01-21-2022 Status post TAVR Cardiomegaly pulmonary vascular congestion and edema Workstation ID: [id number] [facility] EXAMINATION: ONE XRAY VIEW OF THE [...] vascular congestion and edema Workstation ID: [id number] [facility] Radiology Study observation (narrative) [facility] XR Chest 1 ViewOrdered By: Malachi Shirley on 01-21-2022 [facility] Work Phone: aPTT Coag (Bld) [Time]on Interpretation and review of laboratory results Normal [facility] Therapeutic range fo r APTT's is 68 - 104 seconds [facility] ECG 12 LeadOrdered By: Virginie Guerra on 01-09-2022 Atrial Rate [facility] [place] [facility] P-R Interval [facility] Q-T Interval [facility] Q-T Interval (corrected) [facility] QRS Duration [facility] QTC Calculation (Bezet) [facility] [place] [facility] [place] [facility] Ventricular Rate [facility] COVID-19, MolecularOrdered B y: Nasreen Jenkins on 01-07-2022 SARS-CoV-2 (COVID-19) RNA MAXIMUS+probe Ql (Resp) Not detected Not Detected [facility] Comment on above: This test was perfor [...] at the following links: For Healthcare Providers: https://www.fda.gov/media/606086/download For Patients: https://www.fda.gov/media/622332/download SARS-CoV-2 (COVID-19) RNA NA A+probe Ql (Resp)Ordered By: Nasreen Jenkins on 01-07-2022 Interpretation and review of laboratory results Normal [facility] ECG 12-LEADOrdered By: Blaine Silveira on 06-10-[address] [facility] [place] [facility] P-R Interval [facility] Q-T Interval [facility] Q-T Interval (corrected) [facility] QRS Duration [facility] QTC Calculation (Bezet) [facility] [place] [facility] [place] [facility] Ventricular Rate [facility] Atrial Rate [facility] [place] [facility] P-R Interval [facility] Q-T Interval [facility] Q-T Interval (corrected) [facility] QRS Duration [facility] QTC Calculation (Bezet) [facility] [place] [facility] [place] [facility] Ventricular Rate [facility] ECHOCARDIOGRAM COMPLETEon Transthoracic Echocardiogram ____ Patient: CARLOS Sykes [facility] Rec#: [id number] (Age): 1955(63y) Height: 167.64(cm)/65(i Study Date: 06/14/2019 Weight: 120.66(kg)/265( Room#: BSA: [id number] Type: Loc: Sex: F ____ Reading: MD Kamran Joshi Referring: BLAINE SILVEIRA L. Licensed Psychiatric Technician: Angelica Lynne [facility], [...] at 06/14/2019 16:22:40 by: Silvio Mckeon MD [facility] Interface, Rad In [facility] Xper Echopa - 06/14/2019 4:29 PM EDT Transthoracic Echocardiogram ____ Patient: CARLOS Sykes [facility] Rec#: [id number] (Age): 1955(63y) Height: 167.64(cm)/65(i Study Date: 06/14/2019 Weight: 120.66(kg)/265( Room#: BSA: [id number] Type: Loc: Sex: F ____ Reading: Silvio Mckeon MD F Referring: BLAINE SILVEIRA L. Licensed Psychiatric Technician: Angelica Lynne RDCS, RVT History: Aortic Valve [...] at 06/14/2019 16:22:40 by: Silvio Mckeon MD [facility] ECG 12-LEADon 06-06-2019 Atrial Rate [facility] [place] [facility] P-R Interval [facility] Q-T Interval [facility] Q-T Interval (corrected) [facility] QRS Duration [facility] QTC Calculation (Bezet) [facility] [place] [facility] [place] [facility] Ventricular Rate [facility] Echocardiogram completeon Echocardiogram complete Transthoracic Echocardiogram ____ Patient: CARLOS Sykes [facility] Rec#: [id number] (Age): 1955(62y) Height: 167.64(cm)/65(i Study Date: 01/05/2018 Weight: 109.77(kg)/241( Room#: BSA: [id number] Type: Outpatient Loc: Sex: F ____ Reading: Iliana Gomez M.D. Referring: BLAINE SILVEIRA L. Licensed Psychiatric Technician: Angelica Lynne RDCS, RVT History: Aortic Valve [...] l/min none Cardiac index 3.64 l/min/m2 none DENYN (continuity Vmax) 1.83 cm2 none DENNY (continuity [...] by: Iliana Gomez M.D. Invalid Interpretation Code [facility] Echocardiogram complete Interface, Rad Nelson n [facility] Xper Echopacs - 01/05/2018 2:56 PM EST Transthoracic Echocardiogram ____ Patient: CARLOS Sykes [facility] Rec#: [id number] (Age): 1955(62y) Height: 167.64(cm)/65(i Study Date: 01/05/2018 Weight: 109.77(kg)/241( Room#: BSA: [id number] Type: Outpatient Loc: Sex: F ____ Reading: Iliana Gomez M.D. Referring: BLAINE SILVEIRA L. Licensed Psychiatric Technician: Angelica Lynne RD, RVT History: Aortic Valve [...] by: Iliana Gomez M.D. Invalid Interpretation Code [facility] Vital Signs Date Time Vital Sign Value Performing Clinician Facility 08-23-2025 12:07-0400 Diastolic blood pressure 82 mm[Hg] Brendan Maciel PA-C Work Phone: [facility] 08-23-2025 12:07-0400 Systolic blood pressure 188 mm[Hg] Brendan SIMS-C Work Phone: [facility] 08-23-2025 11:18-0400 Body height 167.6 cm Brendan SIMS-C Work Phone: [facility] 08-23-2025 11:18-0400 Body mass index (BMI) [Ratio] 41 kg/m2 Brendan SIMS-C Work Phone: [facility] 08-23-2025 11:18-0400 Body weight 115.21 kg Brendan Maciel PA-C Work Phone: [facility] 08-23-2025 11:18-0400 Heart rate 77 /min Brendan Maciel PA-C Work Phone: [facility] 08-23-2025 11:18-0400 SaO2% (BldA) [Mass fraction] 95 % Brendan Maciel PA-C Work Phone: [facility] 08-08-2025 08:57-0400 Body mass index (BMI) [Ratio] 40.4 kg/m2 Dr. Kirill Newell MD Work Phone: [facility] 08-08-2025 08:57-0400 Body temperature 97.4 [degF] Dr. Kirill Newell MD Work Phone: [facility] 08-08-2025 08:57-0400 Body weight 115.[address] Kirill Newell MD Work Phone: [facility] 08-08-2025 08:57-0400 Diastolic blood pressure 84 mm[Hg] Dr. Kirill Newell MD Work Phone: [facility] 08-08-2025 08:57-0400 Heart rate 74 /min Dr. Kirill Newell MD Work Phone: [facility] 08-08-2025 08:57-0400 Respiratory rate 18 /min Dr. Kirill Newell MD Work Phone: [facility] 08-08-2025 08:57-0400 SaO2% (BldA) [Mass fraction] 99 % Dr. Kirill Newell MD Work Phone: [facility] 08-08-2025 08:57-0400 Systolic blood pressure 141 mm[Hg] Dr. Kirill Newell MD Work Phone: [facility] 06-06-2025 07:57-0400 Diastolic blood pressure 79 mm[Hg] Blaine Silveira MD Work Phone: [facility] 06-06-2025 07:57-0400 Heart rate 57 /min Blaine Silveira MD Work Phone: [facility] 06-06-2025 07:57-0400 Systolic blood pressure 137 mm[Hg] Blaine Silveira MD Work Phone: [facility] 06-06-2025 07:50-0400 Body height 167.6 cm Blaine Silveira MD Work Phone: [facility] 06-06-2025 07:50-0400 Body mass index (BMI) [Ratio] 42.13 kg/m2 Blaine Silveira MD Work Phone: [facility] 06-06-2025 07:50-0400 Body weight 118.39 kg Blaine Silveira MD Work Phone: [facility] [facility] 05-[facility]2025 15:07-0400 Body temperature 97.8 [degF] Dr. Kirill Newell MD Work Phone: [facility] 05-31-2025 15:07-0400 Diastolic blood pressure 71 mm[Hg] Dr. Kirill Newell MD Work Phone: [facility] 05-31-2025 15:07-0400 Heart rate 82 /min Dr. Kirill Newell MD Work Phone: [facility] 05-31-2025 15:07-0400 Respiratory rate 18 /min Dr. Kirill Newell MD Work Phone: [facility] 05-31-2025 15:07-0400 SaO2% (BldA) [Mass fraction] 95 % Dr. Kirill Newell MD Work Phone: [facility] 05-31-2025 15:07-0400 Systolic blood pressure 139 mm[Hg] Dr. Kirill Newell MD Work Phone: [facility] 05-31-2025 05:06-0400 Body mass index (BMI) [Ratio] 43.4 kg/m2 Dr. Kirill Newell MD Work Phone: [facility] 05-31-2025 05:06-0400 Body weight 123.[address] Kirill Newell MD Work Phone: 6(287)[phone] [place] [address] 05-31-2025 00:47-0400 Inhaled oxygen flow rate 0 L/min Dr. Kirill Newell MD Work Phone: 9(117)[phone] [place] [address] 05-30-2025 03:08-0400 Body height 168.[address] Kirill Newell MD Work Phone: 6(693)036-650118 [place] [address] 05-30-2025 02:47-0400 Body temperature 98.2 [degF] Dr. Kirill Newell MD Work Phone: 7(652)884-388018 [place] [address] 05-30-2025 02:47-0400 Diastolic blood pressure 100 mm[Hg] Dr. Kirill Newell MD Work Phone: 8(670)451-679318 [place] [address] 05-30-2025 02:47-0400 Heart rate 114 /min Dr. Kirill Newell MD Work Phone: 2(742)230-229718 [place] [address] 05-30-2025 02:47-0400 Respiratory rate 23 /min Dr. Kirill Newell MD Work Phone: 7(207)809-264718 [place] [address] 05-30-2025 02:47-0400 SaO2% (BldA) [Mass fraction] 96 % Dr. Kirill Newell MD Work Phone: 0(044)707-459418 [place] [address] 05-30-2025 02:47-0400 Systolic blood pressure 136 mm[Hg] Dr. Kirill Newell MD Work Phone: 5(299)663-278618 [place] [address] 05-29-2025 23:10-0400 Body height 170.[address] Kirill Newell MD Work Phone: 4(791)069-694118 [place] [address] 05-29-2025 23:10-0400 Body mass index (BMI) [Ratio] 41 kg/m2 Dr. Kirill Newell MD Work Phone: 8(061)091-841134 [place] [address] 05-29-2025 23:10-0400 Body weight 118.[address] Kirill Newell MD Work Phone: 1(625)934-717718 [place] [address] 02-12-2024 11:18-0400 Body temperature 98.1 [degF] Kendall Graff [facility] 02-12-2024 11:18-0400 Diastolic blood pressure 79 mm[Hg] Kendall Graff PT [facility] 02-12-2024 11:18-0400 Heart rate 78 /min Kendall Graff PT [facility] 02-12-2024 11:18-0400 Respiratory rate 16 /min Kendall Graff PT [facility] 02-12-2024 11:18-0400 SaO2% (BldA) [Mass fraction] 98 % Kendall Graff PT [facility] 02-12-2024 11:18-0400 Systolic blood pressure 124 mm[Hg] Kendall Graff PT [facility] 02-11-2024 08:58-0400 Body temperature 98.8 [degF] Lindsey Centeno RN [facility] 02-11-2024 08:58-0400 Diastolic blood pressure 78 mm[Hg] Lindsey Centeno RN [facility] 02-11-2024 08:58-0400 Heart rate 62 /min Lindsey Centeno RN [facility] 02-11-2024 08:58-0400 Respiratory rate 16 /min Lindsey Centeno RN [facility] 02-11-2024 08:58-0400 SaO2% (BldA) [Mass fraction] 99 % Lindsey Centeno RN [facility] 02-11-2024 08:58-0400 Systolic blood pressure 132 mm[Hg] Lindsey Centeno RN [facility] 02-10-2024 09:59-0400 Body temperature 97.81 [degF] Cristhian Thrush [facility] 02-10-2024 09:59-0400 Diastolic blood pressure 70 mm[Hg] Cristhian Thrush [facility] 02-10-2024 09:59-0400 Heart rate 66 /min Cristhian Thrush [facility] 02-10-2024 09:59-0400 Respiratory rate 15 /min Cristhian Thrush [facility] 02-10-2024 09:59-0400 SaO2% (BldA) [Mass fraction] 97 % Cristhian Thrush [facility] 02-10-2024 09:59-0400 Systolic blood pressure 118 mm[Hg] Cristhian Thrush [facility] 02-09-2024 09:21-0400 Body temperature 98.2 [degF] Lisa Odell LPN [facility] 02-09-2024 09:21-0400 Diastolic blood pressure 80 mm[Hg] Lisa Odell LPN [facility] 02-09-2024 09:21-0400 Heart rate 85 /min Lisa Odell LPN [facility] 02-09-2024 09:21-0400 Respiratory rate 16 /min Lisa Odell [facility] 02-09-2024 09:21-0400 SaO2% (BldA) [Mass fraction] 98 % Lisa Odell [facility] 02-09-2024 09:21-0400 Systolic blood pressure 142 mm[Hg] Lisa Odell [facility] 02-08-2024 10:30-0400 Body temperature 97.9 [degF] Cristhian Thrush [facility] 02-08-2024 10:30-0400 Diastolic blood pressure 70 mm[Hg] Cristhian Thrush [facility] 02-08-2024 10:30-0400 Heart rate 67 /min Cristhian Thrush [facility] 02-08-2024 10:30-0400 Respiratory rate 16 /min Cristhian Thrush [facility] 02-08-2024 10:30-0400 SaO2% (BldA) [Mass fraction] 97 % Cristhian Thrush [facility] 02-08-2024 10:30-0400 Systolic blood pressure 118 mm[Hg] Cristhian Thrush [facility] 02-05-2024 10:44-0500 Body temperature 98.49 [degF] Lisa Odell [facility] 02-05-2024 10:44-0500 Diastolic blood pressure 82 mm[Hg] Lisa Odell [facility] 02-05-2024 10:44-0500 Heart rate 77 /min Lisa Odell [facility] 02-05-2024 10:44-0500 Respiratory rate 16 /min Lisa Odell [facility] 02-05-2024 10:44-0500 SaO2% (BldA) [Mass fraction] 98 % Lisa Odell [facility] 02-05-2024 10:44-0500 Systolic blood pressure 150 mm[Hg] Lisa Odell [facility] 02-05-2024 10:09-0500 Body temperature 98.2 [degF] Cristhian Thrush [facility] 02-05-2024 10:09-0500 Diastolic blood pressure 88 mm[Hg] Cristhian Thrush [facility] 02-05-2024 10:09-0500 Heart rate 67 /min Cristhian Thrush [facility] 02-05-2024 10:09-0500 Respiratory rate 15 /min Cristhian Thrush [facility] 02-05-2024 10:09-0500 SaO2% (BldA) [Mass fraction] 97 % Cristhian Byrnes [facility] 02-05-2024 10:09-0500 Systolic blood pressure 150 mm[Hg] Cristhian Byrnes [facility] 02-03-2024 14:06-0500 Body temperature 97.59 [degF] Siena Rondon RN [facility] 02-03-2024 14:06-0500 Diastolic blood pressure 84 mm[Hg] Siena Rondon RN [facility] 02-03-2024 14:06-0500 Heart rate 76 /min Siena Rondon RN [facility] 02-03-2024 14:06-0500 Respiratory rate 18 /min Siena Rondon RN [facility] 02-03-2024 14:06-0500 SaO2% (BldA) [Mass fraction] 99 % Siena Rondon RN [facility] 02-03-2024 14:06-0500 Systolic blood pressure 130 mm[Hg] Siena Rondon RN [facility] 02-03-2024 12:32-0500 Body temperature 97.3 [degF] Cristhian Byrnes [facility] 02-03-2024 12:32-0500 Diastolic blood pressure 83 mm[Hg] Cristhian Byrnes [facility] 02-03-2024 12:32-0500 Heart rate 70 /min Cristhian Byrnes [facility] 02-03-2024 12:32-0500 Respiratory rate 15 /min Cristhian Byrnes [facility] 02-03-2024 12:32-0500 SaO2% (BldA) [Mass fraction] 99 % Cristhian Byrnes [facility] 02-03-2024 12:32-0500 Systolic blood pressure 145 mm[Hg] Cristhian Byrnes [facility] 02-01-2024 11:30-0500 Body temperature 98.1 [degF] Cristhian Byrnes [facility] 02-01-2024 11:30-0500 Diastolic blood pressure 88 mm[Hg] Cristhian Byrnes [facility] 02-01-2024 11:30-0500 Heart rate 70 /min Cristhian Byrnes [facility] 02-01-2024 11:30-0500 Respiratory rate 15 /min Cristhian Byrnes [facility] 02-01-2024 11:30-0500 SaO2% (BldA) [Mass fraction] 98 % Cristhian Byrnes [facility] 02-01-2024 11:30-0500 Systolic blood pressure 148 mm[Hg] Cristihan Byrnes [facility] 01-28-2024 12:52-0500 Body temperature 98.6 [degF] Kendall Graff PT [facility] 01-28-2024 12:52-0500 Diastolic blood pressure 73 mm[Hg] Kendall Dajuan PT [facility] 01-28-2024 12:52-0500 Heart rate 69 /min Kendall Graff PT [facility] 01-28-2024 12:52-0500 Respiratory rate 16 /min Kendall Graff PT [facility] 01-28-2024 12:52-0500 SaO2% (BldA) [Mass fraction] 99 % Kendall Graff PT [facility] 01-28-2024 12:52-0500 Systolic blood pressure 142 mm[Hg] Kendall Graff PT [facility] 01-27-2024 10:42-0500 Body temperature 98.6 [degF] Siena Rondon [facility] 01-27-2024 10:42-0500 Diastolic blood pressure 82 mm[Hg] Sienarachel Rondon [facility] 01-27-2024 10:42-0500 Heart rate 75 /min Siena Rondon [facility] 01-27-2024 10:42-0500 Respiratory rate 16 /min Siena Rondon [facility] 01-27-2024 10:42-0500 SaO2% (BldA) [Mass fraction] 96 % Sienarachel Rondon [facility] 01-27-2024 10:42-0500 Systolic blood pressure 144 mm[Hg] Sienarachel Rondon [facility] 01-15-2024 13:12-0500 Body height 167.6 cm Jass Pepe MD Work Phone: [facility] 01-15-2024 13:12-0500 Body mass index (BMI) [Ratio] 37.93 kg/m2 Jass Pepe MD Work Phone: [facility] 01-15-2024 13:12-0500 Body weight 106.59 kg Jass Pepe MD Work Phone: [facility] 01-15-2024 13:12-0500 Diastolic blood pressure 66 mm[Hg] Jass Pepe MD Work Phone: [facility] 01-15-2024 13:12-0500 Heart rate 82 /min Jass Pepe MD Work Phone: [facility] 01-15-2024 13:12-0500 Systolic blood pressure 143 mm[Hg] Jass Pepe MD Work Phone: [facility] 10-20-2023 13:34-0500 Diastolic blood pressure 91 mm[Hg] Blaine Silveira MD Work Phone: [facility] 10-20-2023 13:34-0500 Systolic blood pressure 156 mm[Hg] Blaine Silveira MD Work Phone: [facility] 10-20-2023 13:24-0500 Body height 170.2 cm Blaine Silveira MD Work Phone: [facility] 10-20-2023 13:24-0500 Body mass index (BMI) [Ratio] 37.28 kg/m2 Blaine Silveira MD Work Phone: [facility] 10-20-2023 13:24-0500 Body weight 107.96 kg Blaine Silveira MD Work Phone: [facility] 10-20-2023 13:24-0500 Heart rate 74 /min Blaine Silveira MD Work Phone: [facility] 10-20-2023 13:24-0500 SaO2% (BldA) [Mass fraction] 97 % Blaine Silveira MD Work Phone: [facility] 07-16-2023 09:42-0400 Body mass index (BMI) [Ratio] 36.3 kg/m2 [facility] 07-16-2023 09:42-0400 Body temperature 96.2 [degF] [facility] 07-16-2023 09:42-0400 Diastolic blood pressure 71 mm[Hg] [facility] 07-16-2023 09:42-0400 Heart rate 70 /min [facility] 07-16-2023 09:42-0400 Respiratory rate 16 /min [facility] 07-16-2023 09:42-0400 Systolic blood pressure 174 mm[Hg] [facility] 06-30-2023 00:20-0400 Body weight 102.05 kg [facility] 06-25-2023 10:45-0400 Body height 170.18 cm [facility] 06-25-2023 10:45-0400 Body mass index (BMI) [Ratio] 38.9 kg/m2 [facility] 06-25-2023 10:45-0400 Body temperature 98 [degF] [facility] 06-25-2023 10:45-0400 Body weight 113 kg [facility] 06-25-2023 10:45-0400 Diastolic blood pressure 85 mm[Hg] [facility] 06-25-2023 10:45-0400 Heart rate 74 /min [facility] 06-25-2023 10:45-0400 Respiratory rate 14 /min [facility] 06-25-2023 10:45-0400 SaO2% (BldA) [Mass fraction] 98 % [facility] 06-25-2023 10:45-0400 Systolic blood pressure 206 mm[Hg] [facility] 06-25-2023 09:48-0400 Body mass index (BMI) [Ratio] 36.3 kg/m2 [facility] 06-25-2023 09:48-0400 Body temperature 97 [degF] [facility] 06-25-2023 09:48-0400 Diastolic blood pressure 101 mm[Hg] [facility] 06-25-2023 09:48-0400 Heart rate 82 /min [facility] 06-25-2023 09:48-0400 Respiratory rate 20 /min [facility] 06-25-2023 09:48-0400 Systolic blood pressure 206 mm[Hg] [facility] 05-30-2023 01:32-0400 Body weight 102.05 kg [facility] 05-28-2023 09:48-0400 Body mass index (BMI) [Ratio] 36.3 kg/m2 [facility] 05-28-2023 09:48-0400 Body temperature 96.5 [degF] [facility] 05-28-2023 09:48-0400 Diastolic blood pressure 76 mm[Hg] [facility] 05-28-2023 09:48-0400 Heart rate 78 /min [facility] 05-28-2023 09:48-0400 Respiratory rate 18 /min [facility] 05-28-2023 09:48-0400 Systolic blood pressure 186 mm[Hg] [facility] 04-30-2023 00:46-0400 Body weight 102.05 kg [facility] 04-23-2023 09:49-0400 Body mass index (BMI) [Ratio] 36.3 kg/m2 [facility] 04-23-2023 09:49-0400 Diastolic blood pressure 101 mm[Hg] [facility] 04-23-2023 09:49-0400 Heart rate 73 /min [facility] 04-23-2023 09:49-0400 Systolic blood pressure 169 mm[Hg] [facility] 04-23-2023 09:23-0400 Body temperature 96.6 [degF] [facility] 04-23-2023 09:23-0400 Respiratory rate 18 /min [facility] 04-16-2023 08:58-0400 Body height 167.64 cm [facility] 04-16-2023 08:58-0400 Body weight 102.05 kg [facility] 01-21-2023 09:01-0500 Body height 167.6 cm Angelica Randall CNP Work Phone: [facility] 01-21-2023 09:01-0500 Body mass index (BMI) [Ratio] 38.76 kg/m2 Angelica Dye INPATIENT PHARMACIST Work Phone: [facility] 01-21-2023 09:01-0500 Body temperature 98.01 [degF] Angelica Dye INPATIENT PHARMACIST Work Phone: [facility] 01-21-2023 09:01-0500 Body weight 108.92 kg Angelica Dye INPATIENT PHARMACIST Work Phone: [facility] 01-21-2023 09:01-0500 Diastolic blood pressure 84 mm[Hg] Angelica Randall INPATIENT PHARMACIST Work Phone: [facility] 01-21-2023 09:01-0500 Heart rate 67 /min Angelica Dye INPATIENT PHARMACIST Work Phone: [facility] 01-21-2023 09:01-0500 Respiratory rate 16 /min Angelica Dye INPATIENT PHARMACIST Work Phone: [facility] 01-21-2023 09:01-0500 SaO2% (BldA) [Mass fraction] 98 % Angelica Dye INPATIENT PHARMACIST Work Phone: [facility] 01-21-2023 09:01-0500 Systolic blood pressure 198 mm[Hg] Angelica Dye INPATIENT PHARMACIST Work Phone: [facility] 02-19-2022 11:13-0400 Diastolic blood pressure 85 mm[Hg] Angelica Dye INPATIENT PHARMACIST Work Phone: [facility] 02-19-2022 11:13-0400 Systolic blood pressure 148 mm[Hg] Angelica Dye INPATIENT PHARMACIST Work Phone: [facility] 02-19-2022 11:08-0400 Body height 167.6 cm Angelica Dye INPATIENT PHARMACIST Work Phone: [facility] 02-19-2022 11:08-0400 Body mass index (BMI) [Ratio] 36.97 kg/m2 Angelica Dye INPATIENT PHARMACIST Work Phone: [facility] 02-19-2022 11:08-0400 Body temperature 97.7 [degF] Angelica Dye INPATIENT PHARMACIST Work Phone: [facility] 02-19-2022 11:08-0400 Body weight 103.9 kg Angelica Dye INPATIENT PHARMACIST Work Phone: [facility] 02-19-2022 11:08-0400 Heart rate 69 /min Angelica Dye INPATIENT PHARMACIST Work Phone: [facility] 02-19-2022 11:08-0400 Respiratory rate 16 /min Nagelica Dye INPATIENT PHARMACIST Work Phone: [facility] 02-19-2022 11:08-0400 SaO2% (BldA) [Mass fraction] 98 % Angelica Dye INPATIENT PHARMACIST Work Phone: [facility] 02-03-2022 09:56-0500 Body mass index (BMI) [Ratio] 35.51 kg/m2 Angelica Dye INPATIENT PHARMACIST Work Phone: [facility] 02-03-2022 09:56-0500 Body weight 99.79 kg Angelica Dye INPATIENT PHARMACIST Work Phone: [facility] 02-03-2022 09:56-0500 Diastolic blood pressure 80 mm[Hg] Angelica Dye INPATIENT PHARMACIST Work Phone: [facility] 02-03-2022 09:56-0500 Systolic blood pressure 132 mm[Hg] Angelica Dye INPATIENT PHARMACIST Work Phone: [facility] 01-22-2022 07:52-0500 Body temperature 98.01 [degF] Lindsey Plummer MD Work Phone: [facility] 01-22-2022 07:52-0500 Diastolic blood pressure 84 mm[Hg] Lindsey Plummer MD Work Phone: [facility] 01-22-2022 07:52-0500 Heart rate 81 /min Lindsey Plummer MD Work Phone: [facility] 01-22-2022 07:52-0500 Respiratory rate 18 /min Lindsey Plummer MD Work Phone: [facility] 01-22-2022 07:52-0500 SaO2% (BldA) [Mass fraction] 98 % Lindsey Plummer MD Work Phone: [facility] 01-22-2022 07:52-0500 Systolic blood pressure 123 mm[Hg] Lindsey Plummer MD Work Phone: [facility] 01-22-2022 04:08-0500 Body mass index (BMI) [Ratio] 37.28 kg/m2 Lindsey Plummer MD Work Phone: [facility] 01-22-2022 04:08-0500 Body weight 104.78 kg Lindsey Plummer MD Work Phone: [facility] 01-21-2022 11:49-0500 Respiratory rate 0 /min Lindsey Plummer MD Work Phone: [facility] 01-21-2022 08:20-0500 Body height 167.6 cm Lindsey Plummer MD Work Phone: [facility] 01-09-2022 09:44-0500 Body height 167.6 cm Meir Arthur MD Work Phone: [facility] 01-09-2022 09:44-0500 Body mass index (BMI) [Ratio] 37.82 kg/m2 Meir Arthur MD Work Phone: [facility] 01-09-2022 09:44-0500 Body temperature 98.01 [degF] Meir Arthur MD Work Phone: [facility] 01-09-2022 09:44-0500 Body weight 106.3 kg Meir Arthur MD Work Phone: [facility] 01-09-2022 09:44-0500 Diastolic blood pressure 80 mm[Hg] Meir Arthur MD Work Phone: [facility] 01-09-2022 09:44-0500 Heart rate 78 /min Meir Arthur MD Work Phone: [facility] 01-09-2022 09:44-0500 Respiratory rate 18 /min Meir Arthur MD Work Phone: [facility] 01-09-2022 09:44-0500 SaO2% (BldA) [Mass fraction] 97 % Meir Arthur MD Work Phone: [facility] 01-09-2022 09:44-0500 Systolic blood pressure 143 mm[Hg] Meir Arthur MD Work Phone: [facility] 01-09-2022 09:36-0500 Body height 167.6 cm Lindsey Plummer MD Work Phone: [facility] 01-09-2022 09:36-0500 Body mass index (BMI) [Ratio] 37.82 kg/m2 Lindsey Plummer MD Work Phone: [facility] 01-09-2022 09:36-0500 Body temperature 98.01 [degF] Lindsey Plummer MD Work Phone: [facility] 01-09-2022 09:36-0500 Body weight 106.3 kg Lindsey Plummer MD Work Phone: [facility] 01-09-2022 09:36-0500 Diastolic blood pressure 80 mm[Hg] Lindsey Plummer MD Work Phone: [facility] 01-09-2022 09:36-0500 Heart rate 78 /min Lindsey Plummer MD Work Phone: [facility] 01-09-2022 09:36-0500 Respiratory rate 16 /min Lindsey Plummer MD Work Phone: [facility] 01-09-2022 09:36-0500 SaO2% (BldA) [Mass fraction] 97 % Lindsey Plummer MD Work Phone: [facility] 01-09-2022 09:36-0500 Systolic blood pressure 143 mm[Hg] Lindsey Plummer MD Work Phone: [facility] 06-10-2021 11:16-0400 Body height 167.6 cm Blaine Silveira MD Work Phone: [facility] 06-10-2021 11:16-0400 Body mass index (BMI) [Ratio] 36.8 kg/m2 Blaine Silveira MD Work Phone: [facility] 06-10-2021 11:16-0400 Body weight 103.42 kg Blaine Silveira MD Work Phone: [facility] 06-10-2021 11:16-0400 Diastolic blood pressure 73 mm[Hg] Blaine Silveira MD Work Phone: [facility] 06-10-2021 11:16-0400 Heart rate 73 /min Blaine Silveira MD Work Phone: [facility] 06-10-2021 11:16-0400 SaO2% (BldA) [Mass fraction] 98 % Blaine Silveira MD Work Phone: [facility] 06-10-2021 11:16-0400 Systolic blood pressure 148 mm[Hg] Blaine Silveira MD Work Phone: [facility] 06-06-2019 14:33-0400 BMI (Body Mass Index) 42.97 kg/m2 Blaine Silveira [facility] 06-06-2019 14:33-0400 Body weight 120.75 kg Blaine Silveira [facility] 06-06-2019 14:33-0400 BP Diastolic 75 mm[Hg] Blaine Silveira [facility] 06-06-2019 14:33-0400 BP Systolic 159 mm[Hg] Blaine Silveira [facility] 06-06-2019 14:33-0400 Height 167.6 cm Blaine Silveira [facility] 06-06-2019 14:33-0400 Pulse (Heart Rate) 71 /min Blaine Silveira [facility] 06-06-2019 14:33-0400 Pulse Oximetry 96 % Blaine Silveira [facility] Encounters Encounter Date Encounter Type Care Provider Facility Start: 09-13-2025 ambulatory [facility] Facility:[facility] Start: 08-23-2025 End: 08-23-2025 Office outpatient visit 15 minutes Brendan Maciel PA-C Work Phone: [facility] Comment on above: Atrial flutter, unsp ecified type (HCC) Start: 08-23-2025 End: 08-23-2025 ambulatory BRENDAN MACIEL [facility] Start: 08-22-2025 End: 08-22-2025 Orders Only Brendan Maciel PA-C Work Phone: [facility] Comment on above: Atrial flutter, unsp ecified type (HCC) (Primary Dx) Start: 08-08-2025 End: 08-08-[address] Jeff Danielle DO -[facility] Work Phone: Start: 08-08-2025 End: 08-08-[address] Kirill Newell MD Work Phone: -[facility] Start: 08-08-[address] Kirill Newell MD -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 Work Phone: Start: 07-04-2025 End: 07-04-2025 Refill Samina Espinoza RN [facility] Comment on above: Medication Refill Start: 07-03-2025 End: 07-03-2025 Anesthesia consultation Jair Barry MD Work Phone: [facility] Start: 07-03-2025 End: 07-03-2025 [facility] Start: 06-09-2025 End: 06-09-2025 Admission to same day surgery center Samina Espinoza RN [facility] Start: 06-06-2025 End: 06-06-2025 Office outpatient visit 25 minutes Blaine Silveira MD Work Phone: [facility] Comment on above: Typical atrial flutt er (HCC) (Primary Dx); Severe aortic insufficiency; Fibrosing mediastinitis; S/P TAVR (transcatheter aortic valve replacement); Mixed hyperlipidemia; 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 Start: 06-06-2025 End: 08-06-2025 Orders Only Samina Espinoza RN [facility] Comment on above: Typical atrial flutt er (HCC) (Primary Dx) TTE Start: 05-31-2025 Non-patient / Non-visit Dr. Shagufta Garcia DO -[facility] Work Phone: Start: 05-31-2025 End: 05-31-2025 ambulatory Kirill Newell Facility:[facility] Start: 05-31-2025 End: 05-31-2025 Non-patient / Non-visit Dr. Francisco Cox MD -[facility] Work Phone: Start: 05-30-2025 ambulatory Dianne Perez Facility:[facility] Start: 05-30-2025 Non-patient / Non-visit Dr. Dianne ling MD -[facility] Start: 05-30-2025 ambulatory Nicol Silva Facil[facility]elson ty:[facility] Start: 05-30-2025 End: 05-31-2025 Evaluation and management of inpatient Dr. Nicol Silva DO -Progressive Care Unit Work Phone: Start: 05-30-2025 ambulatory NICOL IBANEZ [facility] Start: 12-19-2024 End: 12-19-2024 ambulatory Kirill [place] Facility:[facility] Start: 03-25-2024 End: 03-25-2024 Postop follow up visit related to original px Jass Pepe MD Work Phone: [facility] Comment on above: Status post total ri ght knee replacement (Primary Dx) Start: 03-11-2024 End: 03-15-2024 ambulatory [facility] Start: 03-11-2024 End: 03-11-2024 ambulatory Jass Pepe MD Work Phone: [facility] Comment on above: Status post total ri ght knee replacement (Primary Dx) Start: 03-09-2024 End: 03-13-2024 ambulatory J[facility] Start: 03-09-2024 End: 03-09-2024 ambulatory Jass Pepe MD Work Phone: [facility] Comment on above: Status post total ri ght knee replacement (Primary Dx) Start: 03-07-2024 End: 03-11-2024 ambulatory [facility] Start: 03-07-2024 End: 03-07-2024 ambulatory Jass Pepe MD Work Phone: [facility] Comment on above: Status post total ri ght knee replacement (Primary Dx) Start: 03-04-2024 End: 03-08-2024 ambulatory [facility] Start: 03-04-2024 End: 03-04-2024 ambulatory Jass Pepe MD Work Phone: [facility] Comment on above: Status post total ri ght knee replacement (Primary Dx) Start: 03-02-2024 End: 03-06-2024 ambulatory [facility] Start: 03-02-2024 End: 03-02-2024 ambulatory Jass Pepe MD Work Phone: [facility] Comment on above: Status post total ri ght knee replacement (Primary Dx) Start: 02-29-2024 End: 03-04-2024 ambulatory [facility] Start: 02-29-2024 End: 02-29-2024 ambulatory Jass Pepe MD Work Phone: [facility] Comment on above: Status post total ri ght knee replacement (Primary Dx) Start: 02-26-2024 End: 03-01-2024 [facility] JASS MALDONADO AFSHIN [facility] Start: 02-26-2024 End: 02-26-2024 ambulatory Jass Pepe MD Work Phone: [facility] Comment on above: Status post total ri ght knee replacement (Primary Dx) Start: 02-24-2024 End: 02-28-2024 [facility] Start: 02-24-2024 End: 02-24-2024 ambulatory Jass Pepe MD Work Phone: [facility] Comment on above: Status post total ri ght knee replacement (Primary Dx) Start: 02-22-2024 End: 02-26-2024 ambulatory [facility] Start: 02-22-2024 End: 02-22-2024 ambulatory Jass Pepe MD Work Phone: [facility] Comment on above: Status post total ri ght knee replacement (Primary Dx) Start: 02-19-2024 End: 02-23-2024 ambulatory [facility] Start: 02-19-2024 End: 02-19-2024 ambulatory Jass Pepe MD Work Phone: [facility] Comment on above: Status post total ri ght knee replacement (Primary Dx) Start: 02-17-2024 End: 02-21-2024 ambulatory JASS PEPE [facility] Start: 02-17-2024 End: 02-17-2024 ambulatory Jass Pepe MD Work Phone: [facility] Comment on above: Status post total ri ght knee replacement (Primary Dx) Start: 02-15-2024 End: 02-19-2024 ambulatory JASS PEPE [facility] Start: 02-15-2024 End: 02-15-2024 ambulatory Jass Pepe MD Work Phone: [facility] Comment on above: Status post total ri ght knee replacement Start: 02-12-2024 End: 02-12-2024 Postop follow up visit related to original px Jass Pepe MD Work Phone: [facility] Comment on above: Status post total ri ght knee replacement (Primary Dx) Start: 02-12-2024 Home visit Kendall Graff PT [facility] Comment on above: PT OASIS DISCHARGE Start: 02-11-2024 End: 02-11-2024 Home visit Lindsey Centeno RN [facility] Comment on above: SN HH NON-OASIS/DISC IPLINE DC Start: 02-10-2024 End: 02-10-2024 Home visit Cristhian Byrnes [facility] Comment on above: 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 Start: 02-09-2024 End: 02-09-2024 Home visit Lisa Odell [facility] Comment on above: RN CARDIAC REHAB HH ROUTINE Start: 02-08-2024 End: 02-08-2024 Refill Jass Pepe MD Work Phone: [facility] Comment on above: Status post total ri ght knee replacement (Primary Dx) 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 Start: 02-05-2024 End: 02-05-2024 Home visit Cristhian Byrnes [facility] Comment on above: 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 RN CARDIAC REHAB HH ROUTINE Start: 02-03-2024 End: 02-03-2024 Home visit Cristhian Byrnes [facility] Comment on above: 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 SN HH ROUTINE VISIT Start: 02-01-2024 Documentation procedure Yen gold LPN [facility] Start: 02-01-2024 End: 02-01-2024 Home visit Cristhian Byrnes SPECIAL 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 TEACHER [facility] Comment on above: 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 Start: 01-28-2024 End: 01-28-2024 Home visit Kendall Graff PT [facility] Comment on above: PT INITIAL EVALUATIO N Start: 01-27-2024 End: 02-12-2024 ambulatory NICOL IRENA IBANEZ [facility] Start: 01-27-2024 End: 01-27-2024 Home visit Siena Rondon RN [facility] Comment on above: SN HH OASIS START OF CARE Start: 01-26-2024 End: 01-26-2024 ambulatory [facility] Start: 01-15-2024 End: 01-15-2024 Office outpatient visit 15 minutes Jass Pepe MD Work Phone: [facility] Comment on above: Osteoarthritis of ri ght knee, unspecified osteoarthritis type (Primary Dx) Start: 01-11-2024 Documentation procedure Yen gold LPN [facility] Comment on above: 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) Start: 01-07-2024 End: 01-11-2024 ambulatory [facility] Start: 12-14-2023 End: 12-14-2023 ambulatory [facility] Work Phone: Start: 12-14-2023 End: 12-14-2023 Patient encounter procedure [facility] [place] Work Phone: Start: 11-12-2023 End: 11-12-2023 ambulatory [facility] Work Phone: Start: 11-12-2023 End: 11-12-2023 Patient encounter procedure [facility] Work Phone: Start: 11-09-2023 End: 11-10-2023 ambulatory JAVI FLORES [facility] Start: 11-04-2023 End: 11-05-2023 ambulatory [facility] Start: 11-02-2023 End: 11-03-2023 ambulatory [facility] Start: 10-28-2023 End: 10-29-2023 ambulatory [facility] Start: 10-26-2023 End: 10-27-2023 ambulatory [facility] Start: 10-21-2023 End: 10-22-2023 ambulatory [facility] Start: 10-20-2023 End: 10-20-2023 Office outpatient visit 25 minutes Blaine Silveira MD Work Phone: [facility] Comment on above: Coronary artery dise ase involving cahto coronary artery of cahto heart without angina pectoris (Primary Dx); Osteoarthritis of right knee, unspecified osteoarthritis type; Severe aortic insufficiency Start: 10-19-2023 End: 10-20-2023 ambulatory [facility] Start: 10-14-2023 End: 10-15-2023 ambulatory [facility] Start: 10-12-2023 End: 10-13-2023 ambulatory [facility] Start: 10-09-2023 End: 10-10-2023 ambulatory [facility] Start: 10-07-2023 End: 10-08-2023 ambulatory [facility] Start: 09-29-2023 End: 09-29-2023 ambulatory [facility] Start: 09-25-2023 Admission to [facility] Jass Pepe MD Work Phone: [facility] Comment on above: Osteoarthritis of ri ght knee, unspecified osteoarthritis type (Primary Dx); Hypertension, unspecified type Start: 07-16-2023 End: 07-16-2023 ambulatory [facility] Work Phone: Start: 07-16-2023 End: 07-16-2023 Discharged [facility] Work Phone: Start: 06-25-2023 End: 06-25-2023 Emergency department patient visit [facility] Work Phone: Start: 06-25-2023 End: 06-29-2023 ambulatory [facility] Work Phone: Start: 06-25-2023 End: 06-29-2023 Discharged [facility] Work Phone: Start: 06-25-[address] [facility] Work Phone: Start: 05-28-2023 End: 05-29-2023 ambulatory [facility] Work Phone: Start: 05-28-2023 End: 05-29-2023 Discharged [facility] Work Phone: Start: 04-23-2023 End: 04-29-2023 ambulatory [facility] Work Phone: Start: 04-23-2023 End: 04-29-2023 Discharged [facility] Start: 01-21-2023 End: 01-25-2023 ambulatory NICOL OSBORN [facility] Start: 01-21-2023 End: 01-21-2023 Office outpatient visit 25 minutes Angelica Randall CNP Work Phone: [facility] Comment on above: S/P TAVR (transcathe ter aortic valve replacement) (Primary Dx); Hypertension, unspecified type Start: 06-19-2022 Orders Only Terrie Núñez [facility] Comment on above: S/P TAVR (transcathe ter [...] Orders Only Blaine hines MD Work Phone: [facility] Start: 03-31-2022 [...] Start: 02-19-2022 End: 02-23-2022 ambulatory NICOL IBANEZ [facility] Start: 02-19-2022 End: 02-19-2022 Office outpatient visit 15 minutes Angelica Randall CNP Work Phone: [facility] Comment on above: S/P TAVR (transcathe ter aortic valve replacement) (Primary Dx) Start: 02-17-2022 ambulatory Robert [facility]ugh [facility] [id number] Start: 02-14-2022 ambulatory Robert Pugh [facility] [id number] Start: 02-12-2022 ambulatory Robert Pugh [facility] [id number] Start: 02-10-2022 ambulatory Robert Pugh [facility] [id number] Start: 02-03-2022 End: 02-03-2022 Phys/qhp telephone evaluation 11-20 min Angelica Randall CNP Work Phone: [facility] Comment on above: S/P TAVR (transcathe ter aortic valve replacement) (Primary Dx) Start: 01-22-2022 Orders Only Terrie Núñez [facility] Comment on above: S/P TAVR (transcathe ter aortic valve replacement) (Primary Dx) S/P TAVR (transcathe ter aortic valve replacement) (Primary Dx); Shortness of breath Start: 01-21-2022 End: 01-22-2022 Evaluation and management of inpatient Lindsey Plummer MD Work Phone: [facility] Start: 01-14-2022 Orders for Hospital Batool Batista CNP Work Phone: [facility] Start: 01-13-2022 Orders Only Angelica Balderas e INPATIENT PHARMACIST Work Phone: [facility] Comment on above: Encounter for prepro cedure screening laboratory testing for COVID-19 (Primary Dx) Start: 01-13-2022 Patient encounter status Muriel zuniga RN [facility] Start: 01-10-2022 Orders Only Clau Michaud RN [facility] Comment on above: Aortic valve stenosi s, severe (Primary Dx); Severe aortic insufficiency Start: 01-09-2022 Orders Only Terrie Oh RN [facility] Comment on above: Encounter for preope rative screening laboratory testing for COVID-19 virus (Primary Dx) Start: 01-09-2022 End: 01-09-2022 Patient encounter status Terrie Oh RN [facility] Start: 01-09-2022 End: 01-09-2022 Office outpatient new 45 minutes Meir Arthur MD Work Phone: [facility] Comment on above: Severe aortic insuff iciency (Primary Dx); Aortic valve stenosis, severe; Pre-operative cardiovascular examination Aortic valve stenosi s, severe; Pre-operative cardiovascular examination Start: 01-07-2022 Orders for Hospital Terrie naik RN [facility] Comment on above: Aortic valve stenosi s, severe (Primary Dx); Pre-operative cardiovascular examination; Other abnormal findings in urine ; Abnormal coagulation profile ; Dyspnea, unspecified type ; Abnormal finding of blood chemistry, unspecified Start: 01-07-2022 Patient encounter status Terrie Warren RN [facility] Start: 01-01-2022 Orders Only Terrie Oh RN [facility] Comment on above: Encounter for prepro cedure screening laboratory testing for COVID-19 (Primary Dx) Start: 01-01-2022 Patient encounter status Terrie Warren RN [facility] Start: 12-31-2021 Orders Only Terrie Oh RN [facility] Comment on above: Aortic valve stenosi s, severe (Primary Dx); Pre-operative cardiovascular examination; Other specified symptoms and signs involving the circulatory and respiratory systems Start: 12-31-2021 Patient encounter status Terrie Warren RN [facility] Start: 06-24-2021 End: 06-24-2021 Orders Only Iliana Madsen RN [facility] Comment on above: Nonrheumatic aortic valve insufficiency (Primary Dx) Start: 06-10-2021 End: 06-10-2021 Orders Only Iliana Madsen RN [facility] Office Comment on above: Coronary artery dise ase involving cahto coronary artery of cahto heart without angina pectoris (Primary Dx) Nonrheumatic aortic valve insufficiency (Primary Dx) Start: 06-10-2021 End: 06-10-2021 Office outpatient visit 25 minutes Blaine Silveira MD Work Phone: [facility] Office Comment on above: Coronary artery dise ase involving cahto coronary artery of cahto heart without angina pectoris; Nonrheumatic aortic valve insufficiency; Elevated sed rate; Mixed hyperlipidemia Start: 01-23-2021 End: 01-23-2021 Orders Only Mustapha Al Work Phone: [facility] Start: 06-14-2019 End: 06-14-2019 Subsequent hospital visit by physician Blaine Silveira Work Phone: [facility] Comment on above: Nonrheumatic aortic valve insufficiency Start: 06-06-2019 End: 06-06-2019 Office outpatient visit 25 minutes Blaine Silveira Work Phone: [facility] Office Comment on above: SOB (shortness of br eath); 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; Fibrosing mediastinitis; Nonrheumatic aortic valve insufficiency Start: 01-05-2018 Ambulatory Blaine Pringle ity:[place] Start: 01-05-2018 End: 01-05-2018 Ambulatory Blaine Silveira Work Phone: [facility] Procedures Date Procedure Procedure Detail Performing Clinician [...] 11-09-2023 FOLLOW UP IN PHYSICA L THERAPY [facility] Start: 11-04-2023 FOLLOW UP IN PHYSICA L THERAPY [facility] Start: 11-02-2023 FOLLOW UP IN PHYSICA L THERAPY [facility] Start: 10-28-2023 FOLLOW UP IN PHYSICA L THERAPY [facility] Start: 10-26-2023 FOLLOW UP IN [...] trcg only w/o i&r Angelica Claudia Dye INPATIENT PHARMACIST Work Phone: Start: 02-19-2022 Ecg routine ecg w/le ast 12 lds trcg only w/o i&r Angelica Claudia Dye INPATIENT PHARMACIST Work Phone: Start: 01-22-2022 Ecg routine ecg w/le ast 12 lds trcg only w/o i&r Angelica Claudia Dye INPATIENT PHARMACIST Work Phone: Start: 01-22-2022 Basic metabolic pane l calcium total Angelica Claudia Dye INPATIENT PHARMACIST Work Phone: Start: 01-21-2022 Potassium serum plas ma/whole blood Angelica Claudia Dye INPATIENT PHARMACIST Work Phone: Start: 01-21-2022 Dup-scan lxtr art/ar tl bpgs uni/lmtd study Angelica Claudia Dye INPATIENT PHARMACIST Work Phone: Start: 01-21-2022 Basic metabolic pane l calcium total Angelica Claudia Dye INPATIENT PHARMACIST Work Phone: Start: 01-21-2022 Radiologic exam ches t single view Angelica Claudia Dye INPATIENT PHARMACIST Work Phone: Start: 01-21-2022 Ecg routine ecg w/le ast 12 lds trcg only w/o i&r Angelica Claudia Dye INPATIENT PHARMACIST Work Phone: Start: 01-21-2022 Cardiac catheterization Angelica [...] Activity Detail Author Start: 11-07-2026 Tetanus vaccination [facility] Start: 11-10-2025 End: 11-10-2025 Patient encounter procedure 11/10/2025 10:30 AM EST Office Visit [facility] [address] [place] [address] Remy Segura MD [address] [place] [id number] [facility] Start: 09-09-2025 Screening for malignant neoplasm of colon [facility] Start: 08-23-2025 End: 08-23-2025 Patient encounter procedure 08/23/2025 11:30 AM EDT Office Visit [facility] [address] [place] [phone] Brendan Maciel PA-C [address] [place] [address] [facility] Start: 07-31-2025 COVID-19 Vaccine ( season) COVID-19 Vaccine () [facility] Start: 07-31-2025 Influenza vaccination Influenza Vaccine (#1) [facility] Start: 07-03-2025 End: 07-03-2025 Admission to same day surgery center 07/03/2025 11:00 AM EDT - 07/03/2025 1:00 PM EDT Surgery [facility] [address] [place] [address] Remy Segura MD [address] [place] [id number] Ablation-Complex [facility] Comment on above: Ablation-Complex Start: 07-03-2025 End: 07-03-2025 Patient encounter procedure 07/03/2025 10:00 AM EDT Appointment [facility] [address] [place] [address] Remy Segura MD [address] [place] [id number] [facility] Start: 07-03-2025 Subsequent hospital visit by physician [facility] Comment on above: Arrived Start: 06-13-2025 End: 06-06-2026 Basic metabolic 2000 panel - Serum or Plasma Basic metabolic panel Lab Routine Fibrosing mediastinitis Expected: 06/13/2025, Expires: 06/06/2026 [facility] Work Phone: Comment on above: Expected: 06/13/2025, Expires: Start: 05-31-2025 Patient discharge [facility] Start: 05-30-2025 Care planning and problem solving actions [facility] Start: 05-30-2025 Following clinical pathway protocol [facility] Start: 05-30-2025 Assessment of risk of venous thromboembolism [facility] Start: 05-30-2025 Incentive spirometry [facility] Start: 05-30-2025 Insertion of catheter into peripheral vein [facility] Start: 05-30-2025 Measuring intake and output [facility] Start: 05-30-2025 Providing care according to standard [facility] Start: 05-30-2025 Provision of activity privileges [facility] Start: 05-30-2025 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 to commercial real estate manager [facility] Start: 05-30-2025 Referral to service [facility] Start: 05-30-2025 [facility] Start: 05-30-2025 Verification routine [facility] Start: 05-30-2025 Admission procedure [facility] Start: 05-30-2025 Hospital admission, emergency, from emergency room, medical nature [facility] Start: 05-30-2025 Care planning and problem solving actions [facility] Start: 05-30-2025 [facility] Start: 04-04-2025 COVID-19 Vaccine ( season) COVID-19 Vaccine () [facility] Start: 09-13-2024 Fall risk assessment Falls Risk Assessment [facility] Start: 03-18-2024 End: 03-18-2024 Follow-up encounter 03/18/2024 2:30 PM EDT Follow-Up [facility] [address] [id number] Jass Pepe MD [address] [place] [address] [facility] Start: 03-11-2024 End: 03-11-2024 ambulatory [facility] Start: 03-09-2024 End: 03-09-2024 ambulatory [facility] Start: 03-07-2024 End: 03-07-2024 ambulatory [facility] Start: 03-04-2024 End: 03-04-2024 ambulatory 03/04/2024 10:45 AM EDT Treatment [facility] [address] [place] [address] Jass Pepe MD [address] [id number] Gabriel Tovar PTA [facility] Start: 03-02-2024 End: 03-02-2024 ambulatory 03/02/2024 10:45 AM EDT Treatment [facility] [address] [place] [address] Jass Pepe MD [address] [id number] Dajuan Arroyo, PT [facility] Start: 02-29-2024 End: 02-29-2024 ambulatory 02/29/2024 10:45 AM EDT Treatment [facility] [address] [place] [address] Jass Pepe MD [address] [id number] Gabriel Tovar PTA [facility] Start: 02-26-2024 End: 02-26-2024 ambulatory 02/26/2024 10:45 AM EDT Treatment [facility] [address] [place] [address] Jass Pepe MD [address] [place] [address] Sherlyn Villavicencio PTA [facility] Start: 02-24-2024 End: 02-24-2024 ambulatory 02/24/2024 10:45 AM EDT Treatment [facility] [address] [phone] Jass Pepe MD [address] [place] [address] Gabriel Tovar PTA [facility] Start: 02-22-2024 End: 02-22-2024 ambulatory 02/22/2024 10:45 AM EDT Treatment [facility] [address] [phone] Jass Pepe MD [address] [place] [address] Dajuan Arroyo, PT [facility] Start: 02-19-2024 End: 02-19-2024 ambulatory 02/19/2024 10:45 AM EDT Treatment [facility] [address] [place] [address] Jass Pepe MD [address] [place] [address] Gabriel Tovar PTA [facility] Start: 02-17-2024 End: 02-17-2024 ambulatory 02/17/2024 10:45 AM EDT Treatment [facility] [address] [place] [phone] Jass Pepe MD [address] [place] [address] Gabriel Tovar, MAUDE Discharge Disposition: Home [facility] Start: 02-15-2024 End: 02-15-2024 ambulatory 02/15/2024 10:45 AM EDT Evaluation [facility] [address] [place] [address] Jass Pepe MD [address] [place] [address] Dajuan Arroyo PT Discharge Disposition: Home [facility] Start: 02-12-2024 End: 02-12-2024 Follow-up encounter 02/12/2024 2:15 PM EDT Follow-Up [facility] [address] [phone] Jass Pepe MD [address] [place] [address] [facility] Start: 02-12-2024 End: 02-12-2024 Home visit 02/12/2024 8:00 AM EDT Home Care Visit [address] [phone] Kendall Graff, PT [facility] Start: 02-11-2024 End: 02-11-2024 Patient encounter procedure [facility] Start: 02-11-2024 End: 02-11-2024 Home visit 02/11/2024 3:30 AM EDT Home Care Visit [address] [address] Kendall Graff, PT [facility] Start: 02-11-2024 End: 02-11-2024 Patient encounter procedure 02/11/[address] [address] Lindsey Centeno RN [facility] Start: 02-10-2024 End: 02-10-2024 Home visit 02/10/2024 10:00 AM EDT Home Care Visit [address] [address] Cristhian Byrnes PTA [facility] Start: 02-09-2024 End: 02-10-2024 Home visit [facility] Start: 02-08-2024 End: 02-09-2024 Home visit [facility] Start: 02-05-2024 End: 02-05-2024 Home visit 02/05/2024 10:00 AM EST Home Care Visit [address] [address] Cristhian Byrnes PTA [facility] Start: 02-05-2024 End: 02-05-2024 Home visit [facility] Start: 02-03-2024 End: 02-03-2024 Home visit 02/03/2024 11:00 AM EST Home Care Visit [address] [address] Cristhian Byrnes PTA [facility] Start: 02-03-2024 End: 02-03-2024 Home visit 02/03/2024 Home Care Visit [address] [address] Cristhian Byrnes PTA [facility] Start: 01-28-2024 End: 01-28-2024 Home visit [facility] Start: 01-26-2024 End: 01-26-2024 Admission to same day surgery center 01/26/2024 2:11 PM EST - 01/26/2024 4:14 PM EST Surgery [facility] [address] [place] [address] Jass Pepe MD [address] [place], [place] [phone] Right total knee replacement Robotic [facility] Comment on above: Right total knee replacement Robotic Start: 01-26-2024 End: 01-26-2024 ARTHROPLASTY KNEE TOTAL ROBOTIC ARTHROPLASTY KNEE TOTAL ROBOTIC Osteoarthritis of right knee, unspecified osteoarthritis type 01/26/2024 2:[address] [facility] Start: 01-26-2024 Subsequent hospital visit by physician 01/26/2024 2:11 PM EST Hospital Encounter [facility] [address] [place] [address] Jass Pepe MD [address] [place] [address] [facility] Start: 01-15-2024 End: 01-15-2024 Patient encounter procedure 01/15/2024 1:15 PM EST Surgical Consult [facility] [address] [place] [address] Jass Pepe MD [address] [place] [address] [facility] Start: 2023 End: 2023 Admission to same day surgery center 2023 7:05 AM EST - 2023 9:08 AM EST Surgery [facility] [address] [facility] [address] [place] [address] Jass Pepe MD [address] [place] [address] Right total knee replacement Robotic [facility] Comment on above: Right total knee replacement Robotic Start: 2023 End: 2023 ARTHROPLASTY KNEE TOTAL ROBOTIC ARTHROPLASTY KNEE TOTAL ROBOTIC Osteoarthritis of right knee, unspecified osteoarthritis type 2023 7:05 AM EST [facility] Start: 2023 Subsequent hospital visit by physician [facility] Start: 12-11-2023 End: 12-11-2023 Patient encounter procedure 12/11/2023 1:00 PM EST Surgical Consult [facility] [address] [place] [address] Jass Pepe MD [address] [place] [address] [facility] Start: 12-03-2023 End: 12-03-2023 Patient encounter procedure 12/03/2023 10:30 AM EST Appointment [facility] [address] [place] [phone] Jass Pepe MD [address] [place] [address] [facility] [address] [facility] Start: 12-03-2023 End: 12-03-2023 Patient encounter procedure 12/03/2023 7:15 AM EST Office Visit [facility] [address] [place] [phone] [facility] Start: 11-30-2023 Administration of herpes zoster vaccine Zoster Vaccines (2 of 2) [facility] Start: 07-31-2023 COVID-19 Vaccine ( season) COVID-19 Vaccine ( season) [facility] Start: 07-31-2023 Influenza vaccination Sequential Influenza Vaccine (#1) [facility] Start: 06-25-2023 Simple repair f/e/e/n/l/m 2.5cm/< RPR F/E/E/N/L/M 2.5 CM/< [facility] Start: 01-21-2023 End: 01-21-2023 Patient encounter procedure [facility] Start: 07-31-2022 Influenza vaccination Sequential Influenza Vaccine (#1) [facility] Start: 04-28-2022 COVID-19 Vaccine (5 - Booster for Pfizer series) COVID-19 Vaccine (5 - Booster for Pfizer series) [facility] Start: 04-04-2022 End: 04-04-2022 Patient encounter procedure 04/04/2022 Office Visit Cardiology Blaine Silveira MD [address] [place] [address] [facility] Start: 02-19-2022 End: 02-19-2022 Patient encounter procedure [facility] Start: 02-03-2022 End: 02-03-2022 Telemedicine consultation with patient 02/03/2022 Telemedicine Telephone Cardiology Angelica Randall, INPATIENT PHARMACIST [address] [facility] [address] [place] [address] [facility] Start: 01-21-2022 End: 01-21-2022 Admission to same day surgery center 01/21/2022 Surgery Lindsey Plummer MD [address] [facility] [address] [place] [address] Transcatheter Aortic Valve Replacement [facility] Comment on above: Transcatheter Aortic Valve Replacement Start: 01-21-2022 Subsequent hospital visit by physician 01/21/2022 Hospital Encounter Lindsey Plummer MD [address] [facility] [address] [place] [address] [facility] Start: 01-21-2022 End: 01-21-2022 TRANSCATHETER AORTIC VALVE REPLACEMENT FEMORAL APPROACH TRANSCATHETER AORTIC VALVE REPLACEMENT FEMORAL APPROACH severe aortic stenosis 01/21/2022 10:30 AM EST [facility] Start: 01-17-2022 End: 01-17-2022 Patient encounter procedure 01/17/2022 Office Visit Lab Angelica Randall, INPATIENT PHARMACIST [address] [place] [address] [facility] Start: 01-15-2022 End: 01-15-2022 Admission to same day surgery [facility] [employer] Comment on above: Left Heart Cath Possbile PTCA/Stent LEFT HEART CATH Start: 01-15-2022 Subsequent hospital visit by physician 01/15/2022 Hospital Encounter Silvio Mckeon MD [address] [facility] [address] [place] [address] [facility] Start: 01-09-2022 End: 01-10-2022 Patient encounter procedure [facility] [place] [facility] Start: 01-09-2022 Subsequent hospital visit by physician [facility] CT Start: 01-06-2022 End: 01-06-2022 Patient encounter procedure 01/06/2022 Office Visit Lab Dye, Angelica Taylor, INPATIENT PHARMACIST [address] [phone] [facility] Start: 12-25-2021 End: 08-25-2022 Echocardiography Echocardiogram complete Echocardiography Routine Nonrheumatic aortic valve insufficiency Expected: 12/25/2021 (Approximate), Expires: 08/25/2022 [facility] Comment on above: Expected: 12/25/2021 (Approximate), Expi res: 08/25/2022 Start: 07-31-2021 Influenza vaccination Sequential Influenza Vaccine (#1) [facility] Start: 06-21-2021 End: 06-21-2021 Patient encounter procedure 06/21/2021 Appointment Cardiology Blaine Silveira MD [address] [address] [phone] [facility] Start: 05-25-2021 Pneumococcal vaccination Pneumococcal Vaccine Age 65+ (2 of 2 - PPSV23) [facility] Start: 07-31-2020 Influenza vaccination given Sequential Influenza Vaccine (#1) [facility] Start: 2019 Fall risk assessment [place] Risk Assessment [facility] Start: 07-31-2019 Influenza vaccination given SEQUENTIAL INFLUENZA VACCINE (#1) [facility] Start: 06-14-2019 End: 06-14-2019 Appointment 06/14/2019 Appointment Cardiology Blaine Silveira MD [address] [address] [phone] [facility] Start: 07-31-2017 Influenza vaccination SEQUENTIAL INFLUENZA VACCINE (#1) [facility] Work Phone: Start: 2014 Respiratory Syncytial Virus Immunization: Risk, 60-74 Risk, or 75+ (1 - Risk 60-74 years 1-dose series) Respiratory Syncytial Virus Immunization: Risk, 60-74 Risk, or 75+ (1 - Risk 60-74 years 1-dose series) [facility] Start: 2014 Zoster vacc, sc ZOSTER VACCINE [facility] Work Phone: Start: 2004 Administration of herpes zoster vaccine Zoster Vaccines (1 of 2) [facility] Start: 2004 Screening for malignant neoplasm of colon [facility] Start: 1994 Screening for malignant neoplasm of breast Mammogram [facility] Start: 1994 Screening mammography Mammogram [facility] Start: 1970 COVID-19 Vaccine (1 of 2) COVID-19 Vaccine (1 of 2) [facility] Start: 1966 Adolescent depression screening assessment Depression Screening (PHQ9) [facility] Start: 1966 Depression screening using PHQ-9 (Patient Health Questionnaire 9) score [facility] Start: 1960 Pneumococcal Vaccine: Age 65+ (1 of 2 - PPSV23) Pneumococcal Vaccine: Age 65+ (1 of 2 - PPSV23) [facility] Start: 1957 History and physical examination, annual for health maintenance Wellness Visit [facility] Start: 1957 Medicare Wellness Visit Medicare Wellness Visit [facility] Start: 1954 Fall risk assessment Falls Risk Assessment [facility] Start: 1954 Physical therapy management PT Plan of Care [facility] Start: 1954 Screening colonoscopy COLONOSCOPY [facility] Work Phone: Start: 1954 Screening for malignant neoplasm of cervix PAP SMEAR [facility] Work Phone: Start: 1954 Screening for malignant neoplasm of colon [facility] Start: 1954 Screening for osteoporosis Dexa Scan [facility] Start: 1954 Screening mammography Mammogram [facility] Start: 1954 Tetanus vaccination TETANUS EVERY 10 YR [facility] Work Phone: End: 12-31-2022 12 lead ECG ECG 12 Lead ECG Routine Aortic valve stenosis, severe Pre-operative cardiovascular examination 1 Occurrences starting 12/31/2021 until 12/31/2022 [facility] Comment on above: 1 Occurrences starting 12/31/2021 until 12/31/2022 End: 01-22-2023 12 lead ECG ECG 12 Lead ECG Routine S/P TAVR (transcatheter aortic valve replacement) 1 Occurrences starting 01/22/2022 until 01/22/2023 [facility] Comment on above: 1 Occurrences starting 01/22/2022 until 01/22/2023 End: 06-19-2023 12 lead ECG ECG 12 Lead ECG Routine S/P TAVR (transcatheter aortic valve replacement) 1 Occurrences starting 06/19/2022 until 06/19/2023 [facility] Comment on above: 1 Occurrences starting 06/19/2022 until 06/19/2023 End: 09-25-2024 12 lead ECG ECG 12 Lead ECG Routine Osteoarthritis of right knee, unspecified osteoarthritis type 1 Occurrences starting 09/27/2023 until 09/25/2024 [facility] Comment on above: 1 Occurrences starting 09/27/2023 until 09/25/2024 End: 06-06-2026 12 lead ECG ECG 12 lead ECG Routine Typical atrial flutter (HCC) 1 Occurrences starting 06/06/2025 until 06/06/2026 [facility] Comment on above: 1 Occurrences starting 06/06/2025 until 06/06/2026 End: 08-22-2026 12 lead ECG ECG 12 lead ECG Routine Atrial flutter, unspecified type (HCC) 1 Occurrences starting 08/22/2025 until 08/22/2026 [facility] Work Phone: Comment on above: 1 Occurrences starting 08/22/2025 until 08/22/2026 ABLATION- COMPLEX ABLATION- COMPLEX [facility] ARTHROPLASTY KNEE TO FARIHA ROBOTIC ARTHROPLASTY KNEE TOTAL ROBOTIC Osteoarthritis of right knee, unspecified osteoarthritis type [facility] End: 02-13-2023 Basic metabolic 2000 panel - Serum or Plasma Basic metabolic panel Lab Routine S/P TAVR (transcatheter aortic valve replacement) 1 Occurrences starting 02/13/2022 until 02/13/2023 [facility] Comment on above: 1 Occurrences starting 02/13/2022 until 02/13/2023 End: 01-19-2024 Basic metabolic 2000 panel - Serum or Plasma Basic metabolic panel Lab Routine S/P TAVR (transcatheter aortic valve replacement) 1 Occurrences starting 01/19/2023 until 01/19/2024 [facility] Comment on above: 1 Occurrences starting 01/19/2023 until 01/19/2024 End: 09-25-2024 Basic metabolic 2000 panel - Serum or Plasma Basic metabolic panel Lab Routine Osteoarthritis of right knee, unspecified osteoarthritis type 1 Occurrences starting 09/27/2023 until 09/25/2024 [facility] Comment on above: 1 Occurrences starting 09/27/2023 until 09/25/2024 End: 06-06-2026 Basic metabolic 2000 panel - Serum or Plasma Basic metabolic panel Lab Routine Typical atrial flutter (HCC) 1 Occurrences starting 06/06/2025 until 06/06/2026 [facility] Comment on above: 1 Occurrences starting 06/06/2025 until 06/06/2026 Cardiac catheterization Cardiac Catheterization Cardiac Cath Routine 01/21/2022 12:46 PM EST [facility] End: 02-28-2023 Carotid artery doppler assessment Carotid Duplex Vascular Ultrasound Routine Aortic valve stenosis, severe Pre-operative cardiovascular examination Other specified symptoms and signs involving the circulatory and respiratory systems 1 Occurrences starting 12/31/2021 until 02/28/2023 [facility] Comment on above: 1 Occurrences starting 12/31/2021 until 02/28/2023 End: 02-13-2023 CBC panel - Blood by Automated count CBC Lab Routine S/P TAVR (transcatheter aortic valve replacement) 1 Occurrences starting 02/13/2022 until 02/13/2023 [facility] Comment on above: 1 Occurrences starting 02/13/2022 until 02/13/2023 End: 01-19-2024 CBC panel - Blood by Automated count CBC Lab Routine S/P TAVR (transcatheter aortic valve replacement) 1 Occurrences starting 01/19/2023 until 01/19/2024 [facility] Comment on above: 1 Occurrences starting 01/19/2023 until 01/19/2024 End: 06-06-2026 CBC panel - Blood by Automated count CBC Lab Routine Typical atrial flutter (HCC) 1 Occurrences starting 06/06/2025 until 06/06/2026 [facility] Work Phone: Comment on above: 1 Occurrences starting 06/06/2025 until 06/06/2026 End: 09-25-2024 Complete blood count with white cell differential, manual CBC and differential Lab Routine Osteoarthritis of right knee, unspecified osteoarthritis type Hypertension, unspecified type 1 Occurrences starting 09/27/2023 until 09/25/2024 [facility] Comment on above: 1 Occurrences starting 09/27/2023 until 09/25/2024 End: 12-31-2022 Complete PFT with pre and post bronchodilators Complete PFT with pre and post bronchodilators PFT Routine Aortic valve stenosis, severe Pre-operative cardiovascular examination 1 Occurrences starting 12/31/2021 until 12/31/2022 [facility] Work Phone: Comment on above: 1 Occurrences starting 12/31/2021 until 12/31/2022 End: 09-25-2024 CT Knee Right Without Contrast CT Knee Right Without Contrast Imaging Routine Osteoarthritis of right knee, unspecified osteoarthritis type 1 Occurrences starting 09/27/2023 until 09/25/2024 [facility] Comment on above: 1 Occurrences starting 09/27/2023 until 09/25/2024 End: 06-06-2020 Echocardiography Echocardiogram complete Echocardiography Routine Nonrheumatic aortic valve insufficiency 1 Occurrences starting 06/06/2019 until 06/06/2020 [facility] Comment on above: 1 Occurrences starting 06/06/2019 until 06/06/2020 End: 08-11-2022 Echocardiography Echocardiogram complete Echocardiography Routine Nonrheumatic aortic valve insufficiency 1 Occurrences starting 06/10/2021 until 08/11/2022 [facility] Comment on above: 1 Occurrences starting 06/10/2021 until 08/11/2022 End: 03-22-2023 Echocardiography Echocardiogram complete Echocardiography Routine S/P TAVR (transcatheter aortic valve replacement) 1 Occurrences starting 01/22/2022 until 03/22/2023 [facility] Work Phone: Comment on above: 1 Occurrences starting 01/22/2022 until 03/22/2023 End: 01-22-2022 Echocardiography Echocardiogram complete Echocardiography Routine Once for 1 Occurrences starting 01/22/2022 until 01/22/2022 [facility] Work Phone: Comment on above: Once for 1 Occurrences starting 01/22/20 until 01/22/2022 Echocardiography Echocardiogram complete Echocardiography Routine 01/22/2022 10:04 AM EST [facility] End: 08-20-2023 Echocardiography Echocardiogram complete Echocardiography Routine S/P TAVR (transcatheter aortic valve replacement) 1 Occurrences starting 06/19/2022 until 08/20/2023 [facility] Work Phone: Comment on above: 1 Occurrences starting 06/19/2022 until 08/20/2023 Hemoglobin A1c/Hemoglobin.total in Blood [facility] End: 09-25-2024 Incentive spirometry - Initial Instruction Incentive spirometry - Initial Instruction Respiratory Care Routine Osteoarthritis of right knee, unspecified osteoarthritis type 1 Occurrences starting 09/27/2023 until 09/25/2024 [facility] Work Phone: Comment on above: 1 Occurrences starting 09/27/2023 until 09/25/2024 End: 12-31-2022 Methicillin resistant Staphylococcus aureus [Presence] in Unspecified specimen by Organism specific culture MRSA Culture/Screen Microbiology Routine Aortic valve stenosis, severe Pre-operative cardiovascular examination 1 Occurrences starting 12/31/2021 until 12/31/2022 [facility] Comment on above: 1 Occurrences starting 12/31/2021 until 12/31/2022 Methicillin resistan t Staphylococcus aureus [Presence] in Unspecified specimen by Organism specific culture MRSA Culture/Screen Microbiology Routine Aortic valve stenosis, severe Pre-operative cardiovascular examination 01/09/2022 9:45 AM EST [facility] Work Phone: End: 09-25-2024 Methicillin resistant Staphylococcus aureus [Presence] in Unspecified specimen by Organism specific culture MRSA Culture Microbiology Routine Osteoarthritis of right knee, unspecified osteoarthritis type 1 Occurrences starting 09/27/2023 until 09/25/2024 [facility] Comment on above: 1 Occurrences starting 09/27/2023 until 09/25/2024 End: 02-13-2023 Natriuretic peptide.B prohormone N-Terminal [Mass/volume] in Serum or Plasma NT PRO BNP Lab Routine S/P TAVR (transcatheter aortic valve replacement) Shortness of breath 1 Occurrences starting 02/13/2022 until 02/13/2023 [facility] Comment on above: 1 Occurrences starting 02/13/2022 until 02/13/2023 Patient Education ED Head Injury (Adult) ED Laceration: All Closures [facility] Work Phone: Patient referral [facility] Work Phone: End: 06-11-2022 Radionuclide myocardial perfusion study NM Myocardial Perfusion Multiple SPECT Imaging Routine 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 1 Occurrences starting 06/10/2021 until 06/11/2022 [facility] Comment on above: 1 Occurrences starting 06/10/2021 until 06/11/2022 End: 01-09-2023 SARS-CoV-2 (COVID-19) RdRp gene [Presence] in Respiratory specimen by MAXIMUS with probe detection COVID-19, Molecular Microbiology Routine Encounter for preoperative screening laboratory testing for COVID-19 virus 1 Occurrences starting 01/09/2022 until 01/09/2023 [facility] Work Phone: Comment on above: 1 Occurrences starting 01/09/2022 until 01/09/2023 End: 01-13-2023 SARS-CoV-2 (COVID-19) RdRp gene [Presence] in Respiratory specimen by MAXIMUS with probe detection COVID-19, Molecular Microbiology Routine Encounter for preprocedure screening laboratory testing for COVID-19 1 Occurrences starting 01/13/2022 until 01/13/2023 [facility] Work Phone: Comment on above: 1 Occurrences starting 01/13/2022 until 01/13/2023 End: 08-07-2026 Transesophageal echocardiography Echocardiogram transesophageal Echocardiography Routine Typical atrial flutter (HCC) 1 Occurrences starting 06/06/2025 until 08/07/2026 [facility] Comment on above: 1 Occurrences starting 06/06/2025 until 08/07/2026 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 Vascular Ultrasound Routine 01/21/2022 2:16 PM EST [facility] Immunizations Immunization Date Immunization Notes Care Provider Fa cility 10-05-2024 Pfizer Covid-19 (Comirnaty) Dr. Kirill Newell MD Work Phone: [facility] 10-05-2024 influenza virus vaccine, unspecified formulation Blaine Silveira MD Work Phone: [facility] 01-11-[address] Kirill Newell MD Work Phone: [facility] Payers Date Payer Category Payer Self-pay [id number] 2019 Medicare MEDICARE MEDICAR E PART A & B [id number] 2019-Present [id number] 2019 Medicare [id number] 2019 Medicare [id number] 2019 Unknown [id number] 2000 Unknown C UHC/UH[employer] LDEN RULE xxxxxxxxx 2000-Present xxxxxxxxx [id number] .[id number] 2000 Unknown [id number] 2.16.840.1.297865.3.249.1 3 1954 Unknown [id number] 2.16.840.1.623729.3.579.2 .1068 1954 Unknown [id number] 2.16.840.1.447120.3.579.2 .1068 1954 Unknown [id number] 2.16.840.1.554617.3.579.2 .1068 1954 Unknown [id number] 2.16.840.1.492685.3.579.2 .1068 1954 Unknown [id number] 2.16.840.1.295385.3.579.2 .1068 1954 Unknown [id number] 2.16.840.1.173221.3.579.2 .1068 1954 Unknown [id number] 2.16.840.1.313416.3.579.2 .1068 1954 Unknown [id number] 2.16.840.1.477186.3.579.2 .1068 1954 Unknown [id number] 2.16.840.1.520618.3.579.2 .1068 1954 Unknown [id number] 2.16.840.1.422234.3.579.2 .1068 1954 Unknown [id number] 2.16.840.1.031758.3.579.2 .1068 1954 Unknown [id number] 2.16.840.1.756233.3.579.2 .1068 1954 Unknown [id number] 2.16.840.1.233506.3.579.2 .1068 1954 Unknown [id number] 2.16.840.1.434003.3.579.2 .1068 1954 Unknown [id number] 2.16.840.1.525571.3.579.2 .1068 1954 Unknown [id number] 2.16.840.1.922467.3.579.2 .1068 1954 Unknown [id number] 2.16.840.1.407961.3.579.2 .1068 1954 Unknown [id number] 2.16.840.1.524255.3.579.2 .1068 1954 Unknown [id number] 2.16.840.1.085537.3.579.2 .1068 1954 Unknown [id number] 2.16.840.1.197820.3.579.2 .1068 1954 Unknown [id number] 2.16.840.1.712969.3.579.2 .1068 1954 Unknown [id number] 2.16.840.1.505385.3.579.2 .1068 1954 Unknown [id number] 2.16.840.1.402301.3.579.2 .1068 1954 Unknown [id number] 2.16.840.1.130964.3.579.2 .1068 1954 Unknown [id number] 2.16.840.1.301095.3.579.2 .1068 1954 Unknown [id number] 2.16.840.1.153419.3.579.2 .1068 1954 Unknown [id number] 2.16.840.1.717421.3.579.2 .1068 1954 Unknown [id number] 2.16.840.1.286922.3.579.2 .1068 1954 Unknown [id number] 2.16.840.1.281789.3.579.2 .1068 1954 Unknown [id number] 2.16.840.1.777567.3.579.2 .1068 1954 Unknown [id number] 2.16.840.1.242504.3.579.2 .1068 1954 Unknown [id number] 2.16.840.1.050584.3.579.2 .1068 1954 Unknown [id number] 2.16.840.1.712338.3.579.2 .1068 1954 Unknown [id number] 2.16.840.1.272760.3.579.2 .1068 1954 Unknown [id number] 2.16.840.1.186452.3.579.2 .1068 1954 Unknown [id number] 2.16.840.1.219267.3.579.2 .1068 1954 Unknown [id number] 2.16.840.1.484263.3.579.2 .1068 1954 Unknown [id number] 2.16.840.1.619988.3.579.2 .1954 Unknown [id number] 2.16.840.1.427376.3.579.2 .1954 Unknown [id number] 2.16.840.1.759326.3.579.2 .1242 1954 Unknown [id number] 2.16.840.1.019307.3.579.2 .1243 1954 Unknown [id number] 2.16.840.1.875586.3.579.2 .124 1954 Unknown [id number] 2.16.840.1.322766.3.579.2 .1242 1954 Unknown [id number] 2.16.840.1.588201.3.579.2 .1242 1954 Unknown [id number] 2.16.840.1.397822.3.579.2 .1242 1954 Unknown [id number] 2.16.840.1.156632.3.579.2 .1242 1954 Unknown [id number] 2.16.840.1.387934.3.579.2 .1242 1954 Unknown [id number] 2.16.840.1.029444.3.579.2 .1242 1954 Unknown [id number] 2.16.840.1.889917.3.579.2 .1242 1954 Unknown [id number] 2.16.840.1.483798.3.579.2 .1242 1954 Unknown [id number] 2.16.840.1.700973.3.579.2 .1242 1954 Unknown [id number] 2.16840.1.058815.3.579.2 .1954 Unknown [id number] 2.16.840.1.129350.3.579.2 .1954 Unknown [id number] 2.16.840.1.578978.3.579.2 .1954 Unknown [id number] 2.16.840.1.107595.3.579.2 .1954 Unknown [id number] 2.16.840.1.371191.3.579.2 .1954 Unknown [id number] 2.16.840.1.304695.3.579.2 .903 1954 Unknown [id number] 2.16.840.1.790869.3.579.2 .1954 Unknown [id number] 2.16.840.1.461516.3.579.2 .1954 Unknown [id number] 2.16.840.1.088231.3.579.2 .1954 Unknown [id number] 2.16.840.1.034050.3.579.2 .1954 Unknown [id number] 2.16.840.1.073043.3.579.2 1954 Unknown [id number] 2.16.840.1.769130.3.579.2 1954 Unknown [id number] 2.16.840.1.911550.3.579.2 1954 Unknown [id number] 2.16.840.1.436839.3.579.2 1954 Unknown [id number] 2.16.840.1.842960.3.579.2 1954 Unknown [id number] 2.16840.1.228717.3.579.2 .1954 Unknown [id number] 2.16.840.1.678498.3.579.2 .1954 Unknown [id number] 2.16.840.1.016966.3.579.2 .1954 Unknown [id number] .1955 Unknown [id number] 2.16.840.1.968475.3.579.2 .1955 Unknown [id number] 2.16.840.1.666715.3.579.2 .903 Miscellaneous or Other COMMERCIA L [id number] .[id number] Unknown COMMERCIAL COMME RCIAL MISCELLANEOUS [id number] Effective for all dates [id number] [id number] .[id number] Unknown COMMERCIAL COMME RCIAL MISCELLANEOUS [id number] Effective for all dates [phone] [address] [id number] .[id number] Unknown [id number] 2.840.1.294807.3.579.2 .462 Unknown [id number] 2.16840.1.524368.3.579.2 .462 Unknown [id number] 2.16840.1.198183.3.579.2 .462 Unknown [id number] 2.16840.1.521440.3.579.2 .462 Unknown [id number] 2.16840.1.541875.3.579.2 .462 Unknown [id number] 2.16840.1.858967.3.579.2 .462 Unknown [id number] 2.16840.1.326181.3.579.2 .462 Unknown [id number] 2.840.1.931384.3.579.2 .462 Social History Date Type Detail Facility Start: 06-08-2017 End: 01-21-2023 Tobacco smoking status NHIS Never smoker [facility] Start: 1955 Sex Assigned At Not on file [facility] Work Phone: Start: 06-06-2019 Alcohol Comment occasional [facility] Start: 06-11-2020 End: 01-21-2023 Tobacco use and exposure Never used [facility] Start: 06-11-2020 End: 08-23-2025 Alcohol intake Current drink[facility] ([facility]) [facility] Start: 06-10-2021 End: 08-23-2025 Alcohol intake [facility] Start: 01-11-2022 End: 01-21-2023 Exposure to SARS-CoV-2 (event) Not sure [facility] Start: 12-06-2019 End: 06-25-2023 Tobacco smoking status NHIS Unknown if ever smoked [facility] Start: 1955 Sex Assigned At Female [facility] Start: 09-14-2023 End: 08-23-2025 Tobacco use panel [facility] Start: 06-06-2019 Gender identity Identifies as female gender (finding) [facility] Start: 06-06-2019 Sexual orientation Heterosexual (finding) [facility] Lack of Transportati on (Medical) No [facility] Start: 08-23-2025 Alcohol Comment occasional Pt states 1 or 2 glasses of wine or mixed drinkper week [facility] Medical Equipment Procedure Code Equipment Code Equipment Origin al Text Equipment Identifier Dates Closure 6fr Angioseal Vip - [id number] Start: 01-15-2022 Closure Perclose Prostyle - [id number] Start: 01-21-2022 Valve 34mm Evolu t Pro Aortic - [id number] ()[id number] [id number], [id number] FDA Start: 01-21-2022 Hemostat 2 X 4in Surgicel Snow Sterl - [id number] Start: 01-21-2022 Baseplate Sz3 Ti bial Tritanium Triathlon - [id number] ()[id number] 7)[id number], [id number] FDA Start: 01-26-2024 Component Sz3 Fe m Cr Rt Cementless Beaded W/Pa Triathlon - [id number])[id number] 7)[id number])[id number], [id number] FDA Start: 01-26-2024 Patella 29mm Asymmetric Metal-Backed Tritanium Triathlon - [id number] (01)[id number] 7)[id number])[id number], [id number] FDA Start: 01-26-2024 Insert Sz3-11 Ti bial Cr X3 Triathlon 6407-S-626-E - [id number] ()[id number] 7)[id number])[id number], [id number] FDA Start: 01-26-2024 Device 6-12fr Vascade Mvp Venous Vascular Closure - [id number] Start: 07-03-2025 Device 6-12fr Vascade Mvp Venous Vascular Closure - [id number] Start: 07-03-2025 Goals Date Patient Goal Desired Activity /State Functional Status Date Assessment Result Facility 05-31-2025 Functional status Ambulates [facility] Work Phone: Mental Status Date Assessment Result Facility 05-31-2025 Cognitive function Voice/Name [facility] Work Phone: 05-29-2025 Cognitive function Level Of Cons ciousness Awake;Alert;Appropriate [facility] Work Phone: Clinical Notes 06-10-2021 to 08-23-2025 Brendan Maciel PA-C - 08/23/2025 3:28 PM EDTPatient InstructionsTelephone Encounter - Samina Espinoza RN - 07/04/2025 12:44 PM EDTTelephone Encounter - Samina Espinoza RN - 07/04/2025 12:44 PM EDT Note Date & Type Note Facility 08-23-2025 Note Electrophysiology Cl inic Follow-up Heart & Vascular [facility] 08/23/2025 Brendan Maciel PA-C [address] [facility] [address] [place] [id number] Patient: Vickie Gonzalez Date of : 1955 (69 y.o.) PCP: Kirill Newell MD Primary Loft Worker: Dr Silveira Assessment and Plan: 1. Atrial [...] tell. This has been sent in a [employer] message. Since she has not had any [...] replacement Robotic; Surgeon: Jass Pepe MD; Location: [facility] OR; Service: Ortho-Robotics CABG 02/11/2001 x3 CARDIAC CATHETERIZATION 2012 CARDIAC CATHETERIZATION Left 02/10/2001 EF 60% CARDIAC CATHETERIZATION Bilateral 08/26/2011 EF 55% CARDIAC CATHETERIZATION N/A 01/21/2022 Procedure: Transcatheter Aortic Valve Replacement; Surgeon: Lindsey Plummer MD; Location: [facility]; Service: Cardiovascular CARDIAC CATHETERIZATION N/A 01/21/2022 Procedure: Angiogram - Aortic Root; Surgeon: Lnidsey Plummer MD; Location: [facility]; Service: Cardiovascular CARDIAC CATHETERIZATION N/A 01/21/2022 Procedure: Temporary Pacemaker; Surgeon: Lindsey Plummer MD; Location: [facility]; Service: Cardiovascular CARDIAC CATHETERIZATION N/A 01/21/2022 Procedure: Valvuloplasty - Aortic Valve; Surgeon: Lindsey Plummer MD; Location: [facility] OR; Service: Cardiovascular EP - INTERVENTION N/A 07/03/2025 Procedure: Ablation-Complex; Surgeon: Remy Segura MD; Location: [facility]; Service: Cardiovascular; Laterality: N/A; a-fluter, 2 hrs, RF, carto HC LEFT HEART CATH N/A 01/15/2022 Procedure: LE (more content not included)... [facility] 08-23-2025 History of Presen t illness Narrative Electrophysiology Clinic Follow-up Heart & Vascular [facility] 08/23/2025 Brendan Maciel PA-C [address] [facility] [address] [facility] [id number] Patient: Vickie Gonzalez Date of : 1955 (69 y.o.) PCP: Kirill Newell MD Primary Loft Worker: Dr Silveira Assessment and Plan: 1. Atrial [...] tell. This has been sent in a [employer] message. Since she has not had any [...] Valve Replacement; Surgeon: Lindsey Plummer MD; Location: [facility]; Service: Cardiovascular CARDIAC CATHETERIZATION N/A 01/21/2022 Procedure: Angiogram - Aortic Root; Surgeon: Lindsey Plummer MD; Location: [facility]; Service: Cardiovascular CARDIAC CATHETERIZATION N/A 01/21/2022 Procedure: Temporary Pacemaker; Surgeon: Lindsey Plummer MD; Location: [facility]; Service: Cardiovascular CARDIAC CATHETERIZATION N/A 01/21/2022 Procedure: Valvuloplasty - Aortic Valve; Surgeon: Lindsey Plummer MD; Location: [facility]; Service: Cardiovascular EP - INTERVENTION N/A 07/03/2025 Procedure: Ablation-Complex; Surgeon: Remy Segura MD; Location: [facility]; Service: Cardiovascular; Laterality: N/A; a-fluter, 2 hrs, RF, carto HC LEFT HEART CATH N/A 01/15/2022 Procedure: LEFT HEART CATH; Surgeon: Silvio Mckeon MD; Location: [facility]; Service: Cardiovascular TAVR FEMORAL APPROACH N/A 01/21/2022 Procedure: TRANSCATHETER AORTIC VALVE REPLACEMENT FEMORAL APPROACH; Surgeon: Mier Arthur MD; Location: [facility]; Service: Cardiothoracic TOTAL KNEE ARTHROPLASTY [...] 01/09/2022 Note: This dictation was generated using [employer] voice recognition software. Please excuse any grammatical or spelling errors that may have occurred using the system. [1] Current Outpatient Medications Medication Sig Dispense Refill aspirin 81 mg chewable tablet b complex vitamins tablet Take 1 (one) tablet by mouth daily . VEZCRHZ-KSXHEXZON-OLOU ORAL Take 1 tablet by mouth daily [...] for this visit. documented in this encounter [facility] 08-23-2025 Instructions Brendan Maciel PA-C - 08/23/2025 [...] that was requested. documented in this encounter [facility] 07-04-2025 Telephone encounter Note Pt states Dr. Silveira ordered Lasix 20mg daily due to swelling in her lower extremities. She had the a-flutter ablation yesterday, and states the swelling is better. OK to take as needed? [facility] 07-04-2025 Miscellaneous Notes Pt states Dr. Silveira ordered Lasix 20mg daily due to swelling in her lower extremities. She had the a-flutter ablation yesterday, and states the swelling is better. OK to take as needed? documented in this encounter [facility] 07-03-2025 Note Formatting of this n ote is different from the original. Addendum created 07/03/25 1448 by Jair Barry MD Attestation recorded in Intraprocedure, Cosign clinical note, Intraprocedure Attestations filed [facility] 07-03-2025 Miscellaneous Notes Addendum created 07/03/25 1448 by Jair Barry MD Attestation recorded in Intraprocedure, Cosign clinical note, Intraprocedure Attestations filed documented in this encounter [facility] 07-03-2025 Procedure anesthe yaz Narrative Procedure Name [...] Ailyn Hill RN documented in this encounter [id number] Anesthesiology Postoperative evaluation and management note * [...] Barry MD at 07/03/2025 2:47 PM EDT [facility] Work Phone: 1(579) 959-593208-04-2025 Surgical operation note* Anesthesia Postprocedure Evaluation - [...] EDT * Anesthesia Preprocedure Evaluation - Jair aBrry MD - 07/03/2025 10:22 AM EDT ANESTHESIA PREPROCEDURE EVALUATION Anesthesia Plan ASA: 3 Type: MAC Airway: nasal cannula Induction: intravenous Anesthetic plan and risks as outlined in the consent discussed with: patient Use of blood products discussed with: patient Plan discussed with: P 3 ARMAMENT/ORDNANCE IMA TECHNICIAN Physical Exam Airway Mallampati: II TM Distance: [...] Renal Positive: and GERD documented in this [id number] Anesthesiology Preoperative evaluation and management note* Anesthesia Preprocedure Evaluation - Jair Barry MD - 07/03/2025 10:22 AM EDT ANESTHESIA PREPROCEDURE EVALUATION Anesthesia Plan ASA: 3 Type: MAC Airway: nasal cannula Induction: intravenous Anesthetic plan and risks as outlined in the consent discussed with: patient Use of blood products discussed with: patient Plan discussed with: P 3 ARMAMENT/ORDNANCE IMA TECHNICIAN Physical Exam Airway Mallampati: II TM Distance: [...] / Hepatic / Renal Positive: and GERD [facility] Work Phone: 1(796) 163-244007-08-2025 NotePatient Name: Vickie Gonzalez MR #: [id number] General Cardiology Blaine Silveira MD, [facility] 06/06/25 Dear Nicol Ibanez MD, Vickie Gonzalez was seen in follow up for : Problem Atrial Flutter (Hcc) S/P Tavr (Transcatheter Aortic Valve Replacement) EVOLUT 34mm via R GRE[place] KEE[place]. 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 01/21/222022 2 D cardiac echocardiogram looked good [...] in 1 week 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 No angina, Doing [...] Palpitation/aflutter, I independently reviewed previous records from [facility] which I had not reviewed Denies chest [...] 1 (one) tablet by mouth daily . PILBRIZ-PSKVZARRJ-CJNZ ORAL Take 1 tablet by mouth daily [...] 01/27/24. AUTHENTICATED BY BLAINE SILVEIRA, ON 06/06/2025 10:55:28[facility]07-08-2025 Evaluation + Plan note* Assessment & Plan Note - Blaine Silveira MD - 06/06/2025 10:51 AM EDTAssociated Problem(s): Atrial flutter (HCC) New and persistent A flutter D/w pt possible RFA, continuing eliquis cardizem and metoprolol [id number] History of Present illness Narrative* Blaine Silveira MD - 06/06/2025 10:51 AM EDT Patient Name: Vickie Gonzalez MR #: [id number] General Cardiology Blaine Silveira MD, [facility] 06/06/25 Dear Nicol Ibanez MD, Vickie Gonzalez was seen in follow up for : Problem Atrial Flutter (Hcc) S/P Tavr (Transcatheter Aortic Valve Replacement) EVOLUT 34mm via R [place]. 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 01/21/222022 2 D cardiac echocardiogram looked good [...] in 1 week 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 No angina, Doing [...] Palpitation/aflutter, I independently reviewed previous records from [facility] which I had not reviewed Denies chest [...] 1 (one) tablet by mouth daily . IZDIAOU-WGGXMVNWD-YQPK ORAL Take 1 tablet by mouth daily [...] mouth daily Start: 01/27/24. documented in this [id number] Miscellaneous Notes* Assessment & Plan Note - Blaine Silveira MD - 06/06/2025 10:51 AM EDTAssociated Problem(s): Atrial flutter (HCC) New and persistent A flutter D/w pt possible RFA, continuing eliquis cardizem and metoprolol * Assessment & Plan Note - Blaine Silveira MD - 06/06/2025 10:50 AM EDT Associated Problem(s): 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 No angina, Doing [...] valve replacement) No issues documented in this [id number] Evaluation + Plan note* Assessment & Plan Note - Blaine Silveira MD - 06/06/2025 10:50 AM EDT Associated Problem(s): 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 No angina, Doing well, Medications reviewed Followup 1 year [id number] Evaluation + Plan note* Assessment & Plan Note - Blaine Silveira MD - 06/06/2025 10:49 AM EDTAssociated Problem(s): Fibrosing mediastinitis Recent ct report shows encroachment on PA , she does have JVD/HJR at 90 Not sure if from rhythm or early congestive heart failure/PHT Will start20 mg lasix daily for now and repeat BMP in 1 week [id number] Evaluation + Plan note* Assessment & Plan Note - Blaine Silveira MD - 06/06/2025 10:48 AM EDTAssociated Problem(s): HLD (hyperlipidemia) Continue pravastatin [id number] Evaluation + Plan note* Assessment & Plan Note - Blaine Silveira MD - 06/06/2025 10:48 AM EDTAssociated Problem(s): S/P TAVR (transcatheter aortic valve replacement) No issues T [id number] Discharge summary [facility] Medical Records Department [address] [place] [address] Discharge Summary 05/31/25 1536 MR#: [id number] Acct: [id number] Name: VICKIE GONZALEZ Rep #:[id number] : 1955 69 From: Shagufta Garcia DO PCP: Dr. Kirill Newell MD Status:ADM IN Location: [place] [id number] Providers Date of Admission: 05/30/25 Primary Care Physician: Dr. Kirill Newell MD Consultations 05/30/25 03:07 Consult: Cardiology Routine Consulting Provider: [facility] Reason for Consult: New-onset Atrial Flutter; with [...] Spent on Discharge: 38 Hospital Course: Mrs. Goznalez is a 69-year-old female who presented to the emergency department at [facility] on 05/30/2025 early in the morning with [...] % (Auto) 60.4, Lymph % (Auto) 28.5, Hawkins % (Auto) 6.8, Eos % (Auto) 3.3, Baso % (Auto) 0.5, Absolute Neuts (auto) 4.7, Absolute Lymphs (auto) 2.19, Nucleated RBC % 0, Sodium 139, Potassium 4.0, Jzwacthg133, Carbon Dioxide 22.2, Anion Gap 12, BUN [...] Ruiz; Maverick Velasquez; Aníbal Witt; Irena Finch MINCEMEAT MAKER; Alena Silver PA; David Brooks Instructions Additional [...] (0.03 %) spray,non-aerosol INTRANASAL Patient Comments: 1-2 [place] each nostril before bedtime nightly and every [...] Self Care Charges/Coding Visit Charges Inpatient E&M: 48118 Disch Hosp >30min 05/31/25 1552 Cosigner Signature (if applicable): CC: Dr. Jeff Danielle DO; Dr. Kirill Newell MD; Dr. Shagufta Garcia DO; Dr. Lindsey Finley MD~ Signed [facility]07-02-2025 [facility] Medical Records Department [address] [place] [address] Discharge Summary 05/31/25 1536 MR#: [id number] Acct: [id number] Name: VICKIE GONZALEZ Rep #: [id number] : 1955 69 From: Shagufta Garcia DO PCP: Dr. Kirill Newell MD Status:ADM IN Location: [place] [id number] Providers Date of Admission: 05/30/25 Primary Care Physician: Dr. Kirill Newell MD Consultations 05/30/25 03:07 Consult: Cardiology Routine Consulting Provider: [facility] Reason for Consult: New-onset Atrial Flutter; with [...] who presented to the emergency department at [facility] on 05/30/2025 early in the morning with heart racing and palpitations. She was found to be in new onset atrial flutter. She has a history of CABG x 2 in 2000 along with a TAVR and history of fibrosing mediastinitis. She had pretty consistent workup up until 2019 and then seems like she may have been lost to follow-up with [facility]. Her symptoms began about a day prior [...] than I would lik (more content not included)...[facility] 05-30-2025 Consult note Author Dianne Perez [facility] Note Date/Time May 30, 2025 5:43p m [facility] Medical Records Department [address] [place] [address] Consultation - Cardiology 05/30/25 1733 MR#: [id number] Acct: [id number] Name: VICKIE GONZALEZ Rep #:[id number] : 1955 69 From: Dianne Perez MD PCP: Dr. Kirill Newell MD Status:ADM IN Location: [facility] Assessment & Plan Assessment/Plan (1) Fibrosing mediastinitis: (2) Status post double vessel coronary artery bypass: (3) Atrial flutter with rapid ventricular response: (4) Aortic valve insufficiency: QUALIFIERS: Cardiac valve disease etiology: etiology unspecified Qualified Code(s): I35.1 - Nonrheumatic aortic (valve) insufficiency PLAN: Plan Cardiac care plan recommendation 69-year-old patient with fibrosing mediastinitis Has CAD with two-vessel bypass, done in [facility] [place] 2000. History of aortic [...] Meantime also to follow-up with her primary commercial real estate manager in [place] in regard to possible future atrial flutter ablation. And to continue on her current treatment. 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 Will continue to monitor and follow-up clinically I also advised to establish with a local commercial real estate manager for continuation of cardiac care. Dianne Perez MD,[facility] HPI Consult Data Date of Consult: 05/30/25 HPI Narrative Reason for Consultation: CAD s/p CABG/TAVR atrial flutter/fibrosing mediastinitis HPI Narrative: VICKIE GONZALEZ, is a 69 F who presents [facility] Medical History (Updated 05/30/25 @ [...] user Date of last use: marijuana in [employer] Physical Exam Cardio Cardio Narrative: Patient seen and examined at bedside Comfortable does not have any symptoms her palpitation improving Review of ekg monitor she had atrial flutter with controlled ventricular [...] % (Auto) 63.2, Lymph % (Auto) 24.9, Hawkins % (Auto) 8.3, Eos % (Auto) 2.9, [...] % (Auto) 61.8, Lymph % (Auto) 28.6, Hawkins % (Auto) 6.7, Eos % (Auto) 2.0, [...] Neut % (Auto) 63.2,Lymph % (Auto) 24.9, Hawkins % (Auto) 8.3, Eos % (Auto) 2.9, [...] % (Auto) 61.8, Lymph % (Auto) 28.6, Hawkins % (Auto) 6.7, Eos % (Auto) 2.0, [...] Progress imaging as clinically determined. Reading Location: [place] [address] 05/30/25 2703 <Electronically signed by Dianne Perez MD> Cosigner Signature (if applicable): CC: Dr. Kirill Newell MD~ Signed [facility] Work Phone: 1(236) 376-460407-01-2025 Progress note Author Shagufta Garcia [facility] Note Date/Time May 30, 2025 3:55p m [facility] Medical Records Department [address] [place] [address] Progress Note - Hospitalist 05/30/25 1532 MR#: [id number] Acct: [id number] Name: VICKIE GONZALEZ Rep #:[id number] : 1955 69 From: Shagufta Garcia DO PCP: Dr. Kirill Newell MD Status:ADM IN Location: [place] [address] Hospitalist Note Patient is a 69-year-old female [...] She has followed previously with cardiology at [facility] and with Dr. Danielle here in [place] for pulmonary medicine however he has not [...] A-fib and stroke. She voiced understanding. 05/30/25 5493 <Electronically signed by Shagufta Garcia DO> Cosigner Signature (if applicable): CC: ~ Signed [facility] Work Phone: 1(968) 336-545007-01-2025 Consult note [facility] Medical Records Department [address] [place] [address] Consultation - Cardiology 05/30/25 173 MR#: [id number] Acct: [id number] Name: VICKIE GONZALEZ Rep #:[id number] : 1955 69 From: Dianne Perez MD PCP: Dr. Kirill Newell MD Status:ADM IN [facility] Assessment & Plan Assessment/Plan (1) Fibrosing mediastinitis: (2) Status post double vessel coronary artery bypass: (3) Atrial flutter with rapid ventricular response: (4) Aortic valve insufficiency: QUALIFIERS: Cardiac valve disease etiology: etiology unspecified Qualified Code(s): I35.1 - Nonrheumatic aortic (valve) insufficiency PLAN: Plan Cardiac care plan recommendation 69-year-old patient with fibrosing mediastinitis Has CAD with two-vessel bypass, done in [facility] [place] 2000. History of aortic [...] Meantime also to follow-up with her primary commercial real estate manager in [place] in regard to possible future atrial flutter ablation. And to continue on her current treatment. 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 Will continue to monitor and follow-up clinically I also advised to establish with a local commercial real estate manager for continuation of cardiac care. Dianne Perez MD,[facility] HPI Consult Data Date of Consult: 05/30/25 HPI Narrative Reason for Consultation: CAD s/p CABG/TAVR atrial flutter/fibrosing mediastinitis HPI Narrative: VICKIE GONZALEZ, is a 69 F who presents [facility] Medical History (Updated 05/30/25 @ [...] user Date of last use: marijuana in [employer] Physical Exam Cardio Cardio Narrative: Patient seen and examined at bedside Comfortable does not have any symptoms her palpitation improving Review of ekg monitor she had atrial flutter with controlled ventricular [...] % (Auto) 63.2, Lymph % (Auto) 24.9, Hawkins % (Auto) 8.3, Eos % (Auto) 2.9, Baso % (Auto) 0.4, Absolute Neuts (auto) 5.7, Absolute Lymphs (auto) 2.26, Nucleated RBC % 0, Sodium 138, Potassium 3.9, Lumiprdb686, Carbon Dioxide 23.9, Anion Gap 12, BUN [...] % (Auto) 61.8, Lymph % (Auto) 28.6, Hawkins % (Auto) 6.7, Eos % (Auto) 2.0, [...] Neut % (Auto) 63.2,Lymph % (Auto) 24.9, Hawkins % (Auto) 8.3,Eos % (Auto) 2.9, Baso [...] % (Auto) 61.8, Lymph % (Auto) 28.6, Hawkins % (Auto) 6.7, Eos % (Auto) 2.0, [...] Progress imaging as clinically determined. Reading Location: [place] [address] 05/30/25 1743 Cosign Signature (if applicable): CC: Dr. Kirill Newell MD~ Signed [facility]07-01-2025 Progress note [facility] Medical Records Department [address] [place] [address] Progress Note - Hospitalist 05/30/25 1532 MR#: [id number] Acct: [id number] Name: VICKIE GONZALEZ Rep #:[id number] : 1955 69 From: Shagufta Garcia DO PCP: Dr. Kirill Newell MD Status:ADM IN Location: [place] [address] Hospitalist Note Patient is a 69-year-old female [...] She has followed previously with cardiology at [facility] and with Dr. Danielle here in [place] for pulmonary medicine however he has not [...] Cosigner Signature (if applicable): CC: ~ Signed [facility]07-01-2025 History and physical note Author Nicol Roldan [facility] Note Date/Time May 30, 2025 5:36a m [facility] Medical Records Department [address] [place] [address] H&P Exam - Hospitalist 05/30/25 0208 MR#: [id number] Acct: [id number] Name: VICKIE GONZALEZ Rep #:[id number] : 1955 69 From: Nicol Grimaldo DO PCP: Dr. Kirill Newell MD Status:ADM IN Location: [facility] KEQ600- 1 [facility] - General General Date of Admission: [...] and OA; s/p TKR who presents to [facility] complaining of heart racing and palpitations with [...] is expected to extend beyond 2 midnights. [facility] Medical History (Updated 05/30/25 @ [...] % (Auto) 63.2, Lymph % (Auto) 24.9, Hawkins % (Auto) 8.3, Eos % (Auto) 2.9, [...] Magnesium 2.0, TSH 3.020 Imaging [facility] Imaging Services [address] [place] [address] CTA Chest W/WO Contrast MR#: [id number] Acct: [id number] Name: VICKIE GONZALEZ Rep #: [id number] : 1955 F 69 From: Geraldo Moore MD PCP: Dr. Kirill Newell MD Status: ADM IN Study: CTA Chest W/WO Contrast Date of Exam: 05/30/25 Exam# [id number] Ordering Dr: Nicol Silva DO PROCEDURE: CTA [...] as clinically determined. Reading Location: [facility] Assessment & Plan Assessment/Plan (1) Atrial flutter [...] pain or fever. Finally, we will consult [facility] see this patient on rounds [...] 75 minutes. Charges/Coding Visit Charges Inpatient E&M: 09609 Init Hosp L3 05/30/25 0536 <Electronically signed by Nicol Silva DO> Cosigner Signature (if applicable): CC: Dr. Nicol Silva DO; Dr. Kirill Newell MD~ Signed [facility] Work Phone: 1(179) 743-944007-01-2025 Discharge summary Author Remy Rai [facility] Note Date/Time May 30, 2025 4:21a m [facility] Medical Records Department [address] [place] [address] Emergency Department Summary 05/30/25 MR#: [id number] Acct: [id number] Name: VICKIE GONZALEZ Rep #:[id number] : 1955 69 From: Remy Rai DO PCP: Dr. Kirill Newell MD Status:ADM IN Location: [address] History of Present Illness Chief Complaint: [...] stimulant use or illicit drug use. [facility] Medical History (Updated 05/30/25 @ 04:21 by [...] % (Auto) 63.2 Lymph % (Auto) 24.9 Hawkins % (Auto) 8.3 Eos % (Auto) 2.9 [...] atrial flutter Disposition Disposition: Acute Care Hospital [facility] Discharge Date/Time: 05/30/25 02:56 What to do if you have Problems For any increased pain, shortness of breath, bleeding, nausea or vomiting, chestpain, or any unexpected problems, contact your Primary Care Provider. Call [facility] ([phone]) or report to the closest Emergency Room. Call 911 if necessary. 05/30/25 0421 <Electronically signed by Remy Rai DO> Cosigner Signature (if applicable): CC: Dr. Kirill Newell MD ~ Signed [facility] Work Phone: 1(485) 591-259307-01-2025 History and physical note [facility] Medical Records Department [address] [place] [address] H&P Exam - Hospitalist 05/30/25 0208 MR#: [id number] Acct: [id number] Name: VICKIE GONZALEZ Rep #:[id number] : 1955 69 From: Nicol Grimaldo DO PCP: Dr. Kirill Newell MD Status:ADM IN Location: [place] [address] HPI - General General Date of Admission: [...] and OA; s/p TKR who presents to [facility] complaining of heart racing and palpitations with [...] that is expectedto extend beyond 2 midnights. [facility] Medical History (Updated 05/30/25 @ [...] % (Auto) 63.2, Lymph % (Auto) 24.9, Hawkins % (Auto) 8.3, Eos % (Auto) 2.9, Baso % (Auto) 0.4, Absolute Neuts (auto) 5.7, Absolute Lymphs (auto) 2.26, Nucleated RBC % 0, Sodium 138, Potassium 3.9, Eqqtgbgd568, Carbon Dioxide 23.9, Anion Gap 12, BUN 16, Creatinine 0.86, Estim Creat Clear Calc 81.19, Est GFR (MDRD) Non-Af 72, BUN/Creatinine Ratio 19.0, Glucose 105 H, Calcium 9.4, Magnesium 2.0, TSH 3.020 Imaging [facility] Imaging Services [address] [place] [id number] CTA Chest W/WO Contrast MR#: [id number] Acct: [id number] Name: VICKIE GONZALEZ Rep #: [id number] : 1955 F 69 From: Geraldo Moore MD PCP: Dr. Kirill Newell MD Status: ADM IN Study: CTA Chest W/WO Contrast Date of Exam: 05/30/25 Exam# [id number] Ordering Dr: Nicol Silva DO PROCEDURE: CTA [...] Progress imaging as clinically determined. Reading Location: [place] [address] Assessment & Plan Assessment/Plan (1) Atrial flutter [...] pain or fever. Finally, we will consult [facility] see this patient on rounds [...] 75 minutes. Charges/Coding Visit Charges Inpatient E&M: 67836 Init Hosp L3 05/30/25 0536 Cosigner Signature (if applicable): CC: Dr. Nicol Silva DO; Dr. Kirill Newell MD~ Signed [facility]07-01-2025 Evaluation note* Diagnosis Onset Date Resolution Status [...] artery bypass resolved May 30, 2025 2:29am [facility] Work Phone: 1(224) 353-494907-01-2025 Evaluation note* Diagnosis Onset Date Resolution Status [...] apnea) delete d May 30, 2025 2:29am [facility] Work Phone: 1(798) 311-699507-01-2025 Discharge summary [facility] Medical Records Department [address] [place] [address] Emergency Department Summary 05/30/25 MR#: [id number] Acct: [id number] Name: VICKIE GONZALEZ Rep #:[id number] : 1955 69 From: Remy Rai DO PCP: Dr. Kirill Newell MD Status:ADM IN Location: [address] History of Present Illness Chief Complaint: [...] stimulant use or illicit drug use. [facility] Medical History (Updated 05/30/25 @ 04:21 by [...] % (Auto) 63.2 Lymph % (Auto) 24.9 Hawkins % (Auto) 8.3 Eos % (Auto) 2.9 [...] atrial flutter Disposition Disposition: Acute Care Hospital [facility] Discharge Date/Time: 05/30/25 02:56 What to do if you have Problems For any increased pain, shortness of breath, bleeding, nausea or vomiting, chestpain, or any unexpected problems, contact your Primary Care Provider. Call [facility] ([phone]) or report tothe closest Emergency Room. Call 911 if necessary. 05/30/25 0421 Cosigner Signature (if applicable): CC: Dr. Kirill Newell MD ~ Signed [facility]07-01-2025 Radiology Diagnostic study note [facility] Imaging Services [address] [place] [address] CTA Chest W/WO Contrast MR#: [id number] Acct: [id number] Name: VICKIE GONZALEZ Rep #: [id number] : 1955 F 69 From: Arlette Moore MD PCP: Dr. Kirill Newell MD Status: ADM IN Study:CTA Chest W/WO Contrast Date of Exam: 05/30/25 Exam# [id number] Ordering Dr: Nicol Villa DO PROCEDURE: CTA [...] Progress imaging as clinically determined. Reading Location: [place] [address] CC: Dr. Nicol Silva DO; Dr. Kirill Newell MD ~ Label Printer: Signed [facility]04-12-2024 History of Present illness Narrative* Sofía Flores, SPECIAL EDUCATION ITINERANT TEACHER - 03/11/2024 10:45 AM EDT [facility] DAILY TREATMENT NOTE Today's Date [...] Arnav Notes visit 11: 10:45-11:28 Therapeutic Exercise (84897) Intervention SciFit Bike L4 x 6 mins [...] up and over 6 Intervention Possibly add tajik split squats/ stool scoots/ standing hamstring curls [...] PT visits Flores Avila PTA STATE LICENSE, [id number] documented in this [id number] History of Present illness Narrative* Flores Avila PTA - 03/09/2024 10:45 AM EDT [facility] DAILY TREATMENT NOTE Today's Date [...] Arnav Notes Visit #10: 10:36-11:26 Therapeutic Exercise (02783) Intervention SciFit Bike L4 x 6 mins [...] up and over 6 Intervention Possibly add tajik split squats/ stool scoots/ standing hamstring curls [...] Flexion ROM Flores Avila PTA STATE LICENSE, [id number] documented in this [id number] History of Present illness Narrative* Flores Avila PTA - 03/07/2024 10:45 AM EDT [facility] DAILY TREATMENT NOTE Today's Date [...] Arnav Notes Visit #8: 10:45-11:30 Therapeutic Exercise (77177) Intervention SciFit Bike L4 x 6 mins [...] up and over 6 Intervention Possibly add tajik split squats/ stool scoots/ standing hamstring curls [...] on flexion Flores Avila PTA STATE LICENSE, [id number] documented in this [id number] History of Present illness Narrative* Nadege rAce - 03/04/2024 10:45 AM EDT [facility] DAILY TREATMENT NOTE Today's Date [...] Arnav Notes Visit #8: 10:45-11:40 Therapeutic Exercise (35262) Intervention SciFit Bike L4 x 6 mins [...] up and over 6 Intervention Possibly add tajik split squats/ stool scoots/ standing hamstring curls [...] SHIRA Celis No licensure found in state: [place] Treatment was directed and supervised by the co-signing therapist who was directly present for the entire session. Gabriel Tovar PTA State License [id number] documented in this [id number] History of Present illness Narrative* Batool Kamara - 03/02/2024 10:45 AM EDT [facility] DAILY TREATMENT NOTE Today's Date [...] Notes Visit #7: 10:46 11:24 Therapeutic Exercise (75697) Intervention SciFit Bike L4 x 6 mins [...] taps w/6 step x10 Intervention Possibly add tajik split squats/ stool scoots/ standing hamstring curls [...] entire session. Dajuan Arroyo PT State License, [id number] documented in this [id number] History of Present illness Narrative* Gabriel Tovar PTA - 02/29/2024 10:45 AM EDT [facility] DAILY TREATMENT NOTE Today's Date [...] Visit: 6 1050 - 11:40 Therapeutic Exercise (95202) Intervention SciFit Bike L4 x 6 mins [...] and ROM Gabriel Tovar PTA STATE LICENSE, [id number] documented in this [id number] History of Present illness Narrative* Sherlyn Villavicencio PTA - 02/26/2024 10:45 AM EDT [facility] DAILY TREATMENT NOTE Today's Date [...] Precautions/Contraindications Supervising PT: Arnav Notes Visit: 5 8121-1303 Therapeutic Exercise (16996) Intervention SciFit Bike L4 x 6 mins [...] as tolerated Sherlyn Villavicencio PTA STATE LICENSE, [id number] documented in this [id number] History of Present illness Narrative* Yazmin Nadege - 02/24/2024 10:45 AM EDT [facility] DAILY TREATMENT NOTE Today's Date [...] Arnav Notes Visit: 4 10:45-11:11:43 Therapeutic Exercise (54178) Intervention SciFit Bike L4 x 5 mins [...] SHIRA Celis [place] licensure found in state[place] Treatment was directed and supervised by the co-signing therapist who was directly present for the entire session. Gabriel Tovar PTA State License [id number] documented in this [id number] History of Present illness Narrative* Batool Kamara - 02/22/2024 10:45 AM EDT [facility] DAILY TREATMENT NOTE Today's Date [...] Visit: 3 10:40 - 11:15 Therapeutic Exercise (64966) Intervention SciFit Bike L4 x 5 mins [...] Kamara, SPT [place] lic[place] found in state[place] Treatment was directed and supervised by the co-signing therapist who was directly present for the entire session. Dajuan Arroyo PT State License, [id number] documented in this [id number] History of Present illness Narrative* Gabriel Tovar, SPECIAL EDUCATION ITINERANT TEACHER - 02/19/2024 10:45 AM EDT [facility] DAILY TREATMENT NOTE Today's Date [...] Visit: 2 10:48 - 11:46 Therapeutic Exercise (61115) Intervention SciFit Bike L4 x 5 mins [...] strengthening progression Gabriel Tovar PTA STATE LICENSE, [id number] documented in this [id number] History of Present illness Narrative* Nadege Arce - 02/17/2024 10:45 AM EDT [facility] DAILY TREATMENT NOTE Today's Date [...] Arnav Notes Visit: 1 10:50- Therapeutic Exercise (47041) Intervention HEP was reviewed w/ patient and [...] SHIRA Celis [place] lic[place] found in state[place] Treatment was directed and supervised by the co-signing therapist who was directly present for the entire session. Gabriel Tovar PTA [id number] documented in this [id number] History of Present illness Narrative* Batool Kamara - 02/15/2024 10:45 AM EDT [facility] Evaluation Today's Date 02/15/2024 Patient [...] the ability to ambulate better. Social Support: Pentecostalism, social, or cultural considerations to be made aware of before starting treatment: No Home Environment Current Home Environment: Setup: single story house Entry: steps with railing Red Flags: None Comments: Barriers to Care: None Fall risk screening Fallen 2 or more times in the last 12 months: No Injured as a result of a fall in the last 12 months: No Pentecostalism, social, or cultural considerations to be made [...] Notes Eval: 10:51 - 11:17 Therapeutic Exercise (75196) Intervention HEP was reviewed w/ patient and [...] with HEP in 2 weeks. CPT Code 62757 Low 73370 Moderate 40341 High History 0 1-2 3+ Comorbidities: asthma, [...] week Duration: 6 weeks Interventions: Therapeutic Exercise (72825), Neuromuscular Re-Education (97747), Manual Therapy (41868), Therapeutic/ Functional Activities (23561), Gait Training (44237), Aquatic Therapy (90102), Hot/Cold Pack (34310), Electrical Stimulation - Medicare, Unattended (G0283), Ultrasound (34734), and V asopneumatic (23525) Rehab Potential: good Patient Education Provided Pt [...] entire session. Dajuan Arroyo PT State License, [id number] documented in this [id number] Patient's home Progress note* Narratives Pt reports she is doing well and ready for dc. Is using a SPC around the house. Sees this afternoon for followup and staple removal. documented in this encounter [id number] Telephone encounter Note* Telephone Encounter - Treva Obregon LPN - 02/08/2024 12:09 PM EDT Patient requested refill for pain medication. Surgery 01/26 right TKR, last fill 01/26. [id number] Miscellaneous Notes* Telephone Encounter - Treva Obregon LPN - 02/08/2024 12:09 PM EDT Patient requested refill for pain medication. Surgery 01/26 right TKR, last fill 01/26. documented in this [id number] History of Present illness Narrative* Yen Carlson, [...] to call the office. documented in this [id number] History of Present illness Narrative* Yen Carlson LPN - 01/11/2024 2:11 PM EST Amber's nasal swab was positive for MSSA w her preop testing. She will start Doxycyline 100mg bid x 7days and Mupirocin 2% ointment to both nostrils bid x 7 days. I did speak w Amber. documented in this [id number] Patient's home Progress note* Actions Routine visit [...] no longer homebound documented in this encounter [id number] Patient's home Progress note* Actions Routine visit [...] no longer homebound documented in this encounter [id number] Evaluation + Plan note* Assessment & Plan Note - Blaine Silveira MD - 10/20/2023 1:56 PM ESTAssociated Problem(s): Severe aortic insufficiency Doing well from Tavr standpoint Should be low cardiac for surgery from coronary and Valve Would suggest a pre op Pulmonary consult just to be sure from her fibrosing mediastinitis history Also would continue asa through surgery [id number] History of Present illness Narrative* Blaine Silveira MD - 10/20/2023 1:56 PM EST Patient Name: Vickie Gonzalez [facility] MR #: [id number] General Cardiology Blaine Silveira MD, [facility] 10/20/23 Dear Nicol Ibanez MD, Vickie Gonzalez was seen in follow up for : Problem Coronary Artery Disease Involving [place] Coronary Artery of [place] Heart Without Angina Pectoris CABG 2000 Cath 2010 all grafts open 12/2021- Pat Dye/Missy Severe Aortic Insufficiency EVOLUT 34mm via R [place] [employer]EE[place]. 01/21/222022 2 D cardiac echocardiogram looked good [...] 1 (one) tablet by mouth daily . YIFOWZM-VUDHIZCSS-SIXT ORAL Take 1 tablet by mouth daily [...] No medications on file documented in this [id number] Miscellaneous Notes* Assessment & Plan Note - Blaine Silveira MD - 10/20/2023 1:56 PM ESTAssociated Problem(s): Severe aortic insufficiency Doing well from Tavr standpoint Should be low cardiac for surgery from coronary and Valve Would suggest a pre op Pulmonary consult just to be sure from her fibrosing mediastinitis history Also would continue asa through surgery documented in this [id number] Progress note Author Lindsey Walsh [facility] July 16, 2023 12:13pm Note Date/Time July 16, 2023 12 :05pm [facility] [address] [place] [address] Progress Note - Wound Care 07/16/23 1200 MR#: [id number] Acct: [id number] Name: VICKIE GONZALEZ Rep #:[id number] : 1955 67 From: Lidnsey sykes DPMalachi PCP: Dr. Nicol Ibanez MD [...] locally at the wound care center at [facility]. She states following a few days after [...] Date Recorded By Document 07/16/23 09:42 KW [id number] 07/16/23 09:51 KW 07/16/23 09:42 - Today's Visit Information Type of service Follow-up Visit (Physician/INPATIENT PHARMACIST ) Arrival Mode Ambulatory Patient Identification Verified [...] Recorded Date Recorded By Document 07/16/23 09:42 [id number] 07/16/23 09:51 07/16/23 09:42 Wound Center Nurse [...] Date Recorded By Document 07/16/23 10:05 ARNOLDO [id number] 07/16/23 10:06 ARNOLDO 07/16/23 10:05 Wound Care [...] No signs of infection. Pain: May take oemr-hju-bsovvnj Tylenol as needed for discomfort. Host factors: Basal cell carcinoma left lower extremity, edema. ? At this time with all wounds healed she is discharged from the wound care center. She has follow-up appointment with social secretary next week. I answered all the patient's questions.? To return to the wound healing center as needed or call sooner if the patient has any questions or concerns. 07/16/23 1213 <Electronically signed by Lindsey Walsh DPM> Cosigner Signature (if applicable): CC: ~ Signed [facility] Work Phone: 1(356) 156-556407-27-2023 Progress note Author Lindsey Walsh [facility] June 25, 2023 11:36am Note Date/Time June 25, 2023 10:1 2am [facility] [address] [place] [address] Progress Note - Wound Care 06/25/23 1012 MR#: [id number] Acct: [id number] Name: VICKIE GONZALEZ Rep #:[id number] : [...] locally at the wound care center at [facility]. She states following a few days after [...] Date Recorded By Document 06/04/23 10:15 AK [id number] 06/04/23 10:17 SC Document 06/18/23 10:58 [id number] 06/18/23 11:01 Document 06/25/23 09:48 DL [id number] 06/25/23 09:56 DL 06/04/23 06/18/23 06/25/23 10:15 10:58 09:48 - Today's Visit Information Type of service Follow-up Visit Follow-up Visit Follow-up Visit (Physician/INPATIENT PHARMACIST (Physician/INPATIENT PHARMACIST (Physician/INPATIENT PHARMACIST ) ) ) Arrival Mode Ambulatory Ambulatory [...] Date Recorded By Document 06/04/23 10:15 AK [id number] 06/04/23 10:17 AK Document 06/18/23 10:58 [id number] 06/18/23 11:01 Document 06/25/23 09:48 DL [id number] 06/25/23 09:56 DL 06/04/23 06/18/23 06/25/23 10:15 [...] None Present (0 %) %) -Granulation Quality Vanoss N/A -Slough/Fibrin Yes No -Necrosis Amt Medium [...] Recorded Date Recorded By Document 06/04/23 12:01 [id number] 06/04/23 12:02 PL Document 06/18/23 12:17 [id number] 06/18/23 12:19 PL 06/04/23 06/18/23 12:01 12:17 [...] -Expiration Date 02/29/28 03/30/28 -Product Lot Number [id number] -Percent Used 100 100 -Bleeding [...] Recorded Date Recorded By Document 06/04/23 10:49 [id number] 06/04/23 10:49 Document 06/18/23 10:58 [id number] 06/18/23 11:01 06/04/23 06/18/23 10:49 10:58 Wound [...] No signs of infection. Pain: May take rezd-amd-fpstkma Tylenol as needed for discomfort. Host factors: Basal cell carcinoma left lower extremity, edema. ? I answered all the patient's questions.? To return to the wound healing center in 3 weeks or call sooner if the patient has any questions or concerns. 06/25/23 1136 <Electronically signed by Lindsey Walsh DPM> Cosigner Signature (if applicable): CC: ~ Signed [facility] Work Phone: 1(305) 827-608907-20-2023 Progress note Author Lindsey Walsh [facility] June 18, 2023 5:46pm Note Date/Time June 18, 2023 9:48 am [facility] [address] [place] [address] Progress Note - Wound Care 06/18/23 0947 MR#: [id number] Acct: [id number] Name: ROSETTEVICKIE CULP Meseret Rep #:[id number] [...] locally at the wound care center at [facility]. She states following a few days after [...] Recorded Date Recorded By Document 06/04/23 10:15 SC [id number] 06/04/23 10:17 DONNIE 06/04/23 10:15 - Today's Visit Information Type of service Follow-up Visit (Physician/INPATIENT PHARMACIST ) Arrival Mode Ambulatory Patient Identification Verified [...] Date Recorded By Document 06/04/23 10:15 AK [id number] 06/04/23 10:17 AK 06/04/23 10:15 Wound Center [...] Attached -Granulation Amt Medium (34-66%) -Granulation Quality Vanoss -Slough/Fibrin Yes -Necrosis Amt Medium (34-66%) -Necrotic [...] Recorded Date Recorded By Document 06/04/23 12:01 [id number] 06/04/23 12:02 PL 06/04/23 12:01 Wound Center [...] Disc -Expiration Date 02/29/28 -Product Lot Number [id number] -Percent Used 100 -Bleeding Controlled with [...] Recorded Date Recorded By Document 06/04/23 10:49 [id number] 06/04/23 10:49 06/04/23 10:49 Wound Care Center [...] No signs of infection. Pain: May take nnlm-vbf-rmyiljs Tylenol as needed for discomfort. Host factors: Basal cell carcinoma left lower extremity, edema. ? I answered all the patient's questions.? To return to the wound healing center in 1 week or call sooner if the patient has any questions or concerns. 06/18/23 1746 <Electronically signed by Lindsey Walsh DPM> Cosigner Signature (if applicable): CC: ~ Signed [facility] Work Phone: 1(428) 331-764207-06-2023 Progress note Author Lindsey Walsh [facility] June 04, 2023 1:00pm Note Date/Time June 04, 2023 1:00p [facility] [address] [place] [address] Progress Note - Wound Care 06/04/23 1255 MR#: [id number] Acct: [id number] Name: VICKIE GONZALEZ Rep #:[id number] : [...] locally at the wound care center at [facility]. She states following a few days after [...] Date Recorded By Document 06/04/23 10:15 DONNIE [id number] 06/04/23 10:17 DONNIE 06/04/23 10:15 - Today's Visit Information Type of service Follow-up Visit (Physician/INPATIENT PHARMACIST ) Arrival Mode Ambulatory Patient Identification Verified [...] Date Recorded By Document 06/04/23 10:15 DONNIE [id number] 06/04/23 10:17 DONNIE 06/04/23 10:15 Wound Center [...] Attached -Granulation Amt Medium (34-66%) -Granulation Quality Vanoss -Slough/Fibrin Yes -Necrosis Amt Medium (34-66%) -Necrotic [...] Date Recorded By Document 06/04/23 12:01 PL [id number] 06/04/23 12:02 PL 06/04/23 12:01 Wound Center [...] Disc -Expiration Date 02/29/28 -Product Lot Number [id number] -Percent Used 100 -Bleeding Controlled with [...] Recorded Date Recorded By Document 06/04/23 10:49 [id number] 06/04/23 10:49 06/04/23 10:49 Wound Care Center [...] No signs of infection. Pain: May take baah-dzh-jmiypfg Tylenol as needed for discomfort. Host factors: Basal cell carcinoma left lower extremity, edema. ? I answered all the patient's questions.? To return to the wound healing center in 2 weeks or call sooner if the patient has any questions or concerns. 06/04/23 1300 <Electronically signed by Lindsey Walsh DPM> Cosigner Signature (if applicable): CC: ~ Signed [facility] Work Phone: 1(111) 296-399106-29-2023 Progress note Author Lindsey Walsh [facility] May 28, 2023 10:20am Note Date/Time May 28, 2023 9:53 am [facility] [address] [place] [address] Progress Note - Wound Care 05/28/23 0952 MR#: [id number] Acct: [id number] Name: VICKIE GONZALEZ Rep #:[id number] : [...] locally at the wound care center at [facility]. She states following a few days after [...] Date Recorded By Document 04/30/23 09:24 JANIE [id number] 04/30/23 09:40 JF Document 05/07/23 09:26 AK [id number] 05/07/23 09:28 AK Document 05/14/23 09:34 KW [id number] 05/14/23 09:46 KW Document 05/21/23 11:54 AK [id number] 05/21/23 11:56 AK 04/30/23 05/07/23 05/14/23 09:24 09:26 09:34 WC - Today's Visit Information Type of service Follow-up Visit Follow-up Visit Follow-up Visit (Physician/INPATIENT PHARMACIST (Physician/INPATIENT PHARMACIST (Physician/INPATIENT PHARMACIST ) ) ) Arrival Mode Ambulatory Ambulatory [...] Visit Information Type of service Follow-up Visit (Physician/INPATIENT PHARMACIST ) Arrival Mode Ambulatory Patient Identification Verified [...] Recorded Date Recorded By Document 04/30/23 09:24 [id number] 04/30/23 09:40 Document 05/07/23 09:26 AK [id number] 05/07/23 09:28 AK Document 05/14/23 09:34 KW [id number] 05/14/23 09:46 KW Document 05/21/23 11:54 AK [id number] 05/21/23 11:56 AK 04/30/23 05/07/23 05/14/23 09:24 [...] Medium (34-66%) Medium (34-66%) -Granulation Quality Red Vanoss -Slough/Fibrin Yes Yes -Necrosis Amt Small (1-33%) [...] Attached -Granulation Amt Medium (34-66%) -Granulation Quality Vanoss -Slough/Fibrin Yes -Necrosis Amt Medium (34-66%) -Necrotic [...] Date Recorded By Document 06/01/23 12:15 PL [id number] 04/30/23 12:17 PL Document 05/07/23 12:36 PL [id number] 05/07/23 12:38 PL Document 05/14/23 12:06 PL [id number] 05/14/23 12:08 PL Edit Result 05/14/23 12:06 PL (1) [id number] 05/15/23 12:47 PL Document 05/21/23 12:16 PL [id number] 05/21/23 12:17 PL (1) #1 L medial [...] Date 01/29/28 01/29/28 02/29/28 -Product Lot Number [id number] 002 -Percent Used 100 100 [...] Disc -Expiration Date 02/29/28 -Product Lot Number [id number] -Percent Used 100 -Bleeding Controlled with [...] Date Recorded By Document 04/30/23 09:59 AK [id number] 04/30/23 10:00 AK Undo 04/30/23 09:59 AK Adjusting Time [id number] 04/30/23 10:01 AK Document 05/07/23 10:09 AK [id number] 05/07/23 10:10 AK Document 05/14/23 12:06 PL [id number] 05/14/23 12:08 PL Document 05/21/23 10:33 KW [id number] 05/21/23 10:44 KW 05/07/23 05/14/23 05/21/23 10:09 [...] No signs of infection. Pain: May take zeel-heh-udkslpq Tylenol as needed for discomfort. Host factors: Basal cell carcinoma left lower extremity, edema. ? I answered all the patient's questions.? To return to the wound healing center in 1 week or call sooner if the patient has any questions or concerns. 05/28/23 1020 <Electronically signed by Lindsey Walsh DPM> Cosigner Signature (if applicable): CC: ~ Signed [facility] Work Phone: 1(693) 800-920106-22-2023 Progress note Author Lindsey Walsh [facility] May 21, 2023 12:31pm Note Date/Time May 21, 2023 9:57 am [facility] [address] [place] [address] Progress Note - Wound Care 05/21/23 0957 MR#: [id number] Acct: [id number] Name: VICKIE GONZALEZ Rep #:[id number] : [...] locally at the wound care center at [facility]. She states following a few days after [...] Date Recorded By Document 04/30/23 09:24 JF [id number] 04/30/23 09:40 JF Document 05/07/23 09:26 AK [id number] 05/07/23 09:28 AK Document 05/14/23 09:34 KW [id number] 05/14/23 09:46 KW 04/30/23 05/07/23 05/14/23 09:24 09:26 09:34 - Today's Visit Information Type of service Follow-up Visit Follow-up Visit Follow-up Visit (Physician/INPATIENT PHARMACIST (Physician/INPATIENT PHARMACIST (Physician/INPATIENT PHARMACIST ) ) ) Arrival Mode Ambulatory Ambulatory [...] Date Recorded By Document 04/30/23 09:24 JF [id number] 04/30/23 09:40 JF Document 05/07/23 09:26 AK [id number] 05/07/23 09:28 AK Document 05/14/23 09:34 KW [id number] 05/14/23 09:46 KW 04/30/23 05/07/23 05/14/23 09:24 [...] Medium (34-66%) Medium (34-66%) -Granulation Quality Red Vanoss -Slough/Fibrin Yes Yes -Necrosis Amt Small (1-33%) [...] Date Recorded By Document 04/30/23 12:15 PL [id number] 04/30/23 12:17 PL Document 05/07/23 12:36 PL [id number] 05/07/23 12:38 PL Document 05/14/23 12:06 PL [id number] 05/14/23 12:08 PL Edit Result 05/14/23 12:06 PL (1) [id number] 05/15/23 12:47 PL (1) #1 L medial [...] Date 01/29/28 01/29/28 02/29/28 -Product Lot Number [id number] 002 -Percent Used 100 100 [...] Date Recorded By Document 04/30/23 09:59 AK [id number] 04/30/23 10:00 AK Undo 04/30/23 09:59 AK Adjusting Time [id number] 04/30/23 10:01 AK Document 05/07/23 10:09 AK [id number] 05/07/23 10:10 AK Document 05/14/23 12:06 PL [id number] 05/14/23 12:08 PL 05/07/23 05/14/23 10:09 12:06 [...] No signs of infection. Pain: May take lfxt-kco-zjohhlt Tylenol as needed for discomfort. Host factors: Basal cell carcinoma left lower extremity, edema. ? I answered all the patient's questions.? To return to the wound healing center in 1 week or call sooner if the patient has any questions or concerns. 05/21/23 1231 <Electronically signed by Lindsey Walsh DPM> Cosigner Signature (if applicable): CC: ~ Signed [facility] Work Phone: 1(838) 329-169406-15-2023 Progress note Author Lindsey Walsh [facility] May 14, 2023 10:27am Note Date/Time May 14, 2023 9:43 am [facility] [address] [place] [address] Progress Note - Wound Care 05/14/23 0942 MR#: [id number] Acct: [id number] Name: VICKIE GONZALEZ Rep #:[id number] : [...] locally at the wound care center at [facility]. She states following a few days after [...] Date Recorded By Document 04/30/23 09:24 JANIE [id number] 04/30/23 09:40 JANIE Document 05/07/23 09:26 DNONIE [id number] 05/07/23 09:28 DONNIE 04/30/23 05/07/23 09:24 09:26 - Today's Visit Information Type of service Follow-up Visit Follow-up Visit (Physician/INPATIENT PHARMACIST (Physician/INPATIENT PHARMACIST ) ) Arrival Mode Ambulatory Ambulatory Patient [...] Recorded Date Recorded By Document 04/30/23 09:24 [id number] 04/30/23 09:40 Document 05/07/23 09:26 AK [id number] 05/07/23 09:28 AK 04/30/23 05/07/23 09:24 09:26 [...] Medium (34-66%) Medium (34-66%) -Granulation Quality Red Vanoss -Slough/Fibrin Yes Yes -Necrosis Amt Small (1-33%) [...] Date Recorded By Document 04/30/23 12:15 PL [id number] 04/30/23 12:17 PL Document 05/07/23 12:36 [id number] 05/07/23 12:38 PL 04/30/23 05/07/23 12:15 12:36 [...] -Expiration Date 01/29/28 01/29/28 -Product Lot Number [id number] -Percent Used 100 100 -Bleeding [...] Date Recorded By Document 04/30/23 09:59 AK [id number] 04/30/23 10:00 AK Undo 04/30/23 09:59 AK Adjusting Time [id number] 04/30/23 10:01 AK Document 05/07/23 10:09 AK [id number] 05/07/23 10:10 AK 05/07/23 10:09 Wound Care [...] No signs of infection. Pain: May take ebur-oyd-xgxjzur Tylenol as needed for discomfort. Host factors: Basal cell carcinoma left lower extremity, edema. ? I answered all the patient's questions.? To return to the wound healing center in 1 week or call sooner if the patient has any questions or concerns. 05/14/23 1027 <Electronically signed by Lindsey Walsh DPM> Cosigner Signature (if applicable): CC: ~ Signed [facility] Work Phone: 1([phone]) 270-152406-08-2023 Progress note Author Lindsey Walsh [facility] May 07, 2023 9:42am Note Date/Time May 07, 2023 9:14a m [facility] [address] [place] [address] Progress Note - Wound Care 05/07/23912 MR#: [id number] Acct: [id number] Name: VICKIE GONZALEZ Rep #:[id number] : [...] locally at the wound care center at [facility]. She states following a few days after [...] Recorded Date Recorded By Document 04/30/23 09:24 [id number] 04/30/23 09:40 04/30/23 09:24 - Today's Visit Information Type of service Follow-up Visit (Physician/INPATIENT PHARMACIST ) Arrival Mode Ambulatory Patient Identification Verified [...] Recorded Date Recorded By Document 04/30/23 09:24 [id number] 04/30/23 09:40 JANIE 04/30/23 09:24 Wound Center [...] Date Recorded By Document 04/30/23 12:15 PL [id number] 04/30/23 12:17 PL 04/30/23 12:15 Wound Center [...] Disc -Expiration Date 01/29/28 -Product Lot Number [id number] -Percent Used 100 -Bleeding Controlled with [...] Date Recorded By Document 04/30/23 09:59 AK [id number] 04/30/23 10:00 AK Undo 04/30/23 09:59 AK Adjusting Time [id number] 04/30/23 10:01 AK Assessment/Plan Assessment/Plan (1) Non-pressure [...] No signs of infection. Pain: May take jzzj-vcg-yeiwrar Tylenol as needed for discomfort. Host factors: Basal cell carcinoma left lower extremity, edema. ? I answered all the patient's questions.? To return to the wound healing center in 1 week or call sooner if the patient has any questions or concerns. 05/07/2342 <Electronically signed by Lindsey Walsh DPM> Cosigner Signature (if applicable): CC: ~ Signed [facility] Work Phone: [phone]) 477-870906-01-2023 Progress note Author Lindsey Walsh [facility] April 30, 2023 12:52pm Note Date/Time April 30, 2023 9:50a m [facility] [address] [place] [address] Progress Note - Wound Care 04/30/23 0946 MR#: [id number] Acct: [id number] Name: PARAGVICKIE CLEMONS Meseret Rep #:[id number] : 1955 67 From: Lindsey sykes DPM PCP: Dr. Nicol Ibanez MD Status:[facility] Location: History of Present Illness Date [...] locally at the wound care center at [facility]. She states following a few days after [...] Recorded Date Recorded By Document 04/30/23 09:24 [id number] 04/30/23 09:40 04/30/23 09:24 - Today's Visit Information Type of service Follow-up Visit (Physician/INPATIENT PHARMACIST ) Arrival Mode Ambulatory Patient Identification Verified [...] Date Recorded By Document 04/30/23 09:24 JANIE [id number] 04/30/23 09:40 JANIE 04/30/23 09:24 Wound Center [...] No signs of infection. Pain: May take quwk-mrp-vmpmohs Tylenol as needed for discomfort. Host factors: Basal cell carcinoma left lower extremity, edema. ? I answered all the patient's questions.? To return to the wound healing center in 1 week or call sooner if the patient has any questions or concerns. 04/30/23 1252 <Electronically signed by Lindsey Walsh DPM> Cosigner Signature (if applicable): CC: ~ Signed [facility] Work Phone: 1(970) 980-201505-25-2023 Progress note Author Lindsey Nico [facility] April 23, 2023 10:15am Note Date/Time April 23, 2023 9:34a m [facility] [address] [place] [address] Progress Note - Wound Care 04/23/23 0933 MR#: [id number] Acct: [id number] Name: PARAGVICKIE CLEMONS Rep #:[id number] : [...] locally at the wound care center at [facility]. She states following a few days after [...] Left medial ankle Laterality: Left Wound Grade/Stage: Myoer stage I Type of Debridement: Excisional debridement [...] Start: 04/16/23 08:55 Freq: Status: Active Protocol: SAKSHI.Where Was it FilmedGONZALOT Activity Type Activity Date Activity User E-sign Co-sign Detail Recorded Client Recorded Date Recorded By Document 04/16/23 08:58 AK [id number] 04/16/23 09:14 AK Document 04/23/23 09:23 JANIE [id number] 04/23/23 09:27 JANIE 04/16/23 04/23/23 08:58 09:23 - Today's Visit Information Type of service Initial Visit Follow-up Visit (Physician/INPATIENT PHARMACIST ) Arrival Mode Ambulatory Ambulatory Patient Identification [...] Date Recorded By Document 04/16/23 08:58 AK [id number] 04/16/23 09:14 AK Document 04/23/23 09:23 JANIE [id number] 04/23/23 09:27 JF 04/16/23 04/23/23 08:58 09:23 [...] Amt Small (1-33%) Small (1-33%) -Granulation Quality Vanoss Pale -Slough/Fibrin Yes Yes -Necrosis Amt Large [...] Date Recorded By Document 04/16/23 10:10 PL [id number] 04/16/23 10:11 PL 04/16/23 10:10 Wound Center [...] Date Recorded By Document 04/16/23 10:02 DL [id number] 04/16/23 10:04 DL 04/16/23 10:02 Wound Care [...] No signs of infection. Pain: May take ebaw-fbe-xjkogie Tylenol as needed for discomfort. Host factors: Basal cell carcinoma left lower extremity, edema. I answered all the patient's questions. To return to the wound healing center in 1 week or call sooner if the patient has any questions or concerns. 04/23/23 1015 <Electronically signed by Lindsey Walsh DPM> Cosigner Signature (if applicable): CC: ~ Signed [facility] Work Phone: 1(775) 672-886605-18-2023 History and physical note Author Lindsey [facility] April 16, 2023 12:36pm Note Date/Time April 16, 2023 9:19a m [facility] [address] [place] [address] H&P Exam - Wound Care 04/16/23 0919 MR#: [id number] Acct: [id number] Name: VICKIE GONZALEZ Rep #:[id number] : [...] locally at the wound care center at [facility]. She states following a few days after the procedure she was on the treadmill and did have some swelling of the lower extremity site to which she feels may have worsened the wound. States she will continue to follow with dermatology for continued monitoring/follow-up. She currently denies any N/V/F/chills. Denies further complaints. [facility] Medical History (Updated 04/16/23 @ [...] Recorded Date Recorded By Document 04/16/23 08:58 SC [id number] 04/16/23 09:14 DONNIE 04/16/23 08:58 - Today's [...] Recorded Date Recorded By Document 04/16/23 08:58 SC [id number] 04/16/23 09:14 SC 04/16/23 08:58 Wound Center Nurse 1 #1 [...] Attached -Granulation Amt Small (1-33%) -Granulation Quality Vanoss -Slough/Fibrin Yes -Necrosis Amt Large (67-100%) -Necrotic [...] No signs of infection. Pain: May take omvm-xgz-uqkxaoc Tylenol as needed for discomfort. Host factors: Basal cell carcinoma left lower extremity, edema. I answered all the patient's questions. To return to the wound healing center in 1 week or call sooner if the patient has any questions or concerns. 04/16/23 1236 <Electronically signed by Lindsey Walsh DPM> Cosigner Signature (if applicable): CC: ~ Signed [facility] Work Phone: 1(811) 882-377102-22-2023 History of Present illness Narrative* Angelica Randall, INPATIENT PHARMACIST - 01/21/2023 2:30 PM EST [facility] 1 year TAVR follow up Patient Name: Vickie Gonzalez Admit Date: MR #: [id number] : 1955 Physicians: Nicol Ibanez MD (Family) [...] es, she will be discharged from the [facility]. 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 Hypertension, hypertensive today in the office but home readings are significantly lower ranging between 120-140 systolic. Have asked her to track BP three times a week over the next 2 weeks and notify [facility] if systolic greater than 150 consistently. Chief [...] TR and RVSP 46mmHg. Last cardiac catheterization [id number] showed patent DYE and MISSY with 100% [...] Valve Replacement; Surgeon: Lindsey Plummer MD; Location: [facility] OR; Service: Cardiovascular CARDIAC CATHETERIZATION N/A 01/21/2022 Procedure: Angiogram - Aortic Root; Surgeon: Lindsey Plummer MD; Location: [facility]; Service: Cardiovascular CARDIAC CATHETERIZATION N/A 01/21/2022 Procedure: Temporary Pacemaker; Surgeon: Lindsey Plummer MD; Location: [facility]; Service: Cardiovascular CARDIAC CATHETERIZATION N/A 01/21/2022 Procedure: Valvuloplasty - Aortic Valve; Surgeon: Lindsey Plummer MD; Location: [facility]; Service: Cardiovascular HC LEFT HEART CATH N/A 01/15/2022 Procedure: LEFT HEART CATH; Surgeon: Silvio Mckeon MD; Location: [facility]; Service: Cardiovascular TAVR FEMORAL APPROACH N/A 01/21/2022 Procedure: TRANSCATHETER AORTIC VALVE REPLACEMENT FEMORAL APPROACH; Surgeon: Meir Arthur MD; Location: [facility]; Service: Cardiothoracic TOTAL KNEE ARTHROPLASTY [...] by mouth daily . Yes Historical Provider, DCNFITE-WRKZBTPCR-MCHM ORAL Take 1 tablet by mouth daily [...] Component Value Date HGBA1C 6.1 (H) 01/09/2022 @[place] [address]@ Echocardiogram complete Result Date: 01/21/2023 Patient Info Name: VICKIE GONZALEZ Age: 67 years : 1955 Gender: Female Ht: 167 cm Wt: 105 kg BSA: 2.26 m2 HR: 1 bpm BP: 157 / 89 mmHg Technical Quality: Fair Exam Date: 01/21/2023 9:06 AM Patient Status: Outpatient Licensed Psychiatric Technician: Shirin Rabago, MILLER, RDCS (PE, AE) Exam Type: ECHOCARDIOGRAM COMPLETE Study Info Indications - Valve disease/murmur Attending Physician: ANGELICA RANDALL Referring Physician: [id number]; [id number] BMI: 37.73 kg/m2 Summary 1. Left ventricular [...] LVOT VTI/AV VTI Ratio 0.4 LVOT Stroke Wlfigt90 ml LVOT Stroke Index 23.93 ml/m2 Pulmonic Valve Name Value Normal PV Regurgitation Doppler HI Peak End Diastolic Velocity 128 cm/s Mitral [...] on 01/21/2023 10:15 AM documented in this [id number] Note* Addendum Note - Terrie Oh RN - 01/19/2023 6:49 AM ESTAddended by: TERRIE [place] on: 01/19/2023 06:49 AM Modules accepted: Orders [id number] Miscellaneous Notes* Addendum Note - Terrie Oh RN - 01/19/2023 6:49 AM ESTAddended by: TERRIE [place] on: 01/19/2023 06:49 AM Modules accepted: Orders documented in this [id number] History of Present illness Narrative* Angelica Randall CNP - 02/19/2022 11:24 AM EDT [facility] 30 DAY TAVR FOLLOW UP Patient Name: Vickie Gonzalez Admit Date: MR #: [id number] : 1955 Physicians: Nicol Ibanez MD (Family) [...] Valve Replacement; Surgeon: Lindsey Plummer MD; Location: [facility]; Service: Cardiovascular CARDIAC CATHETERIZATION N/A 01/21/2022 Procedure: Angiogram - Aortic Root; Surgeon: Lindsey Plummer MD; Location: [facility]; Service: Cardiovascular CARDIAC CATHETERIZATION N/A 01/21/2022 Procedure: Temporary Pacemaker; Surgeon: Lindsey Plummer MD; Location: [facility]; Service: Cardiovascular CARDIAC CATHETERIZATION N/A 01/21/2022 Procedure: Valvuloplasty - Aortic Valve; Surgeon: Lindsey Plummer MD; Location: [facility]; Service: Cardiovascular HC LEFT HEART CATH N/A 01/15/2022 Procedure: LEFT HEART CATH; Surgeon: Silvio Mckeon MD; Location: [facility]; Service: Cardiovascular TAVR FEMORAL APPROACH N/A 01/21/2022 Procedure: TRANSCATHETER AORTIC VALVE REPLACEMENT FEMORAL APPROACH; Surgeon: Meir Arthur MD; Location: [facility]; Service: Cardiothoracic TOTAL KNEE ARTHROPLASTY [...] by mouth daily . Yes Historical Provider, OZLXIBY-JETYOOUSS-CYDR ORAL Take 1 tablet by mouth daily [...] Component Value Date HGBA1C 6.1 (H) 01/09/2022 @SOEUTMM20@ ECG 12 Lead Result Date: 01/22/2022 Sinus [...] Date: 01/21/2022 12:12 PM Patient Status: Outpatient Licensed Psychiatric Technician: Jolanta Klein RDCS, RVT Exam Type: ECHOCARDIOGRAM LIMITED WITH CONTRAST Study Info Indications - INTRAOP TAVR Attending Physician: LINDSEY PLUMMER Referring Physician: [id number], BATISTA; [id number] BMI: 36.32 kg/m2 Summary 1. Limited two-dimensional, [...] Date: 01/21/2022 1:41 PM Patient Status: Outpatient Public Relations Director:Muriel Medina RVT, FELICIANO Referring Physician: TONIA Jimenez; Attending Physician: LINDSEY PLUMMER Indications Z98.890 - Other specified postprocedural states - left femoral artery pseudoaneurysm, please perform compression therapy if able Procedure Description 96619 Duplex scan of lower extremity arteries or [...] Date: 01/22/2022 8:51 AM Patient Status: Inpatient Licensed Psychiatric Technician: Geraldo Carlos RDCS, ЮЛИЯ Exam Type: ECHOCARDIOGRAM COMPLETE Study Info Indications - Other Attending Physician: LINDSEY PLUMMER Referring Physician: TONIA Jimenez; [id number] BMI: 37.28 kg/m2 Summary 1. Leftventricular systolic [...] Name Value Normal MV Doppler MV Decel Gordon 386 cm/s2 MV PHT 77 ms MV [...] on 01/22/2022 05:15 PM documented in this [id number] Note* Addendum Note - Terrie Oh RN - 02/13/2022 7:54 AM EDTAddended by: TERRIE [place] on: 02/13/2022 07:54 AM Modules accepted: Orders [id number] Miscellaneous Notes* Addendum Note - Terrie Oh RN - 02/13/2022 7:54 AM EDTAddended by: TERRIE [place] on: 02/13/2022 07:54 AM Modules accepted: Orders documented in this [id number] History of Present illness Narrative* Angelica Randall CNP - 02/03/2022 10:00 AM EST Telephone Visit Via Phone Call [facility] [address] [place] [phone] Telephone Visit [facility] 02/03/2022 Angelica Randall CNP Provider Location: office Patient Location Occupational Therapist Assistants: None Patient Location: Patient's Home Patient: Vickie [...] there are inherent diagnostic limitations compared to tvut-pe-rotx evaluations. We elected toproceed with the telephone [...] Take 1 tablet by mouth daily . UMNJLYC-TFGEWYOTC-RQIN ORAL Take 1 tablet by mouth daily [...] symptoms. She will follow up with the [facility] again at4 weeks post TAVR with TTE, labwork and ECG. I have spent 16 minutes with the patient reviewing the HPI and Plan of Care. documented in this [id number] Hospital course Narrative* Angelica Randall, INPATIENT PHARMACIST - 01/22/2022 10:54 AM EST DISCHARGE SUMMARY Patient: Vickie Gonzalez Date of : 1955 Site: [facility] Family Provider: Nicol Ibanez MD [...] condition. She will follow up with the [facility] at 2 weeks and 4 weeks post [...] Take 1 tablet by mouth daily . CWFCXWL-BIEUHLLYK-DULD ORAL Take 1 tablet by mouth daily [...] Commonly known as: [facility] Physician(s) Family Provider: Niocl Ibanez MD, Address: [address] / [place] [address] Follow Up: Phase 2 Cardiac Rehabilitation-[place] Please call ext. [phone] to schedule. Call in 2 week(s) Nicol Ibanez MD [address] [facility] Follow up Please call to schedule follow up appt for 8 weeks from discharge Angelica Randall CNP [address] [phone] Follow up Office has scheduled appts at 2 weeks and 4 weeks from discharge Blaine Silveira MD [address] [place], [place] [id number] Follow up Please call to schedule follow up appt with Dr. Silveira Additional Information: Patient instructions, including activity, were given to the patient/family at discharge. Please seethe After Visit Summary in the electronic medical record for details. Time spent on discharge: > 30 minutes Completed by: Angelica Randall CNP on 01/22/22, 10:54 AM documented in this [id number] Consult note* Marsha Torres RN - 01/22/2022 8:58 AM EST AVS reviewed with patient/family. Discussed importance of medications, follow up appointments, and Cardiac Rehab with patient/family.Discussed with patient that their physician has referred him/her to our outpatient Cardiac Rehabilitation program. A Cardiac Rehabilitation nurse will contact patientor patient may call [phone] for additional information. [facility] Cardiac Rehabilitation brochure pro vided to patient/family.The Cardiac Rehabilitation Program will be provided the patient's referral information and pertinent patient details and history. Patient chosen location is . [id number] Consult note* Marsha Torres RN - 01/22/2022 8:58 AM EST AVS reviewed with patient/family. Discussed importance of medications, follow up appointments, and Cardiac Rehab with patient/family.Discussed with patient that their physician has referred him/her to our outpatient Cardiac Rehabilitation program. A Cardiac Rehabilitation nurse will contact patientor patient may call [phone] for additional information. [facility] Cardiac Rehabilitation brochure pro vided to patient/family.The Cardiac Rehabilitation Program will be provided the patient's referral information and pertinent patient details and history. Patient chosen location is . documented in this [id number] Evaluation + Plan note* Assessment & Plan Note - Angelica Randall CNP - 01/22/2022 8:12 AM EST Associated Problem(s): Severe aortic stenosis S/p TAVR with 34mm Evolut Pro Plus via RFA [id number] Miscellaneous Notes* Assessment & Plan Note - [...] (66 y.o.) Date of Service: 01/21/2022 CSN: [id number] Procedure(s): Transcatheter Aortic Valve Replacement TRANSCATHETER AORTIC VALVE REPLACEMENT FEMORAL APPROACH Pre-Operative Diagnoses: * severe aortic stenosis Post-Operative Diagnoses: * Same as Pre-Op Diagnosis Surgeon(s) and Role: Panel 1: * Lindsey Plummer MD - Primary * Stanley Grant MD Panel 2: * Meir Arthur MD - Primary * Robert Pugh MD Anesthesiologist: Chapito Mohan MD Student Nurse Dry Plasterer: Deep Sawatn Molding Machine Operator Helper: Kishan Rascon RN; Alena Barker, TECHNOLOGIST; Gina Ann RN; Judd Hoover RN Casing Puller: Zulma Bowen Scrub Person: ST [place]; [...] Implant Name Type Inv. Item Serial No. Segmental Paving Supervisor Lot No. LRB No. Used Action CLOSURE PERCLOSE PROSTYLE - [id number] Closure Device CLOSURE PERCLOSE PROSTYLE GARAY VAS N/A 2 Implanted VALVE 34MM EVOLUT PRO AORTIC - [id number] Percutaneous Valve VALVE 34MM EVOLUT PRO AORTIC [id number] [employer] N/A 1 Implanted Drain(s): * No LDAs found * Wound(s): * No LDAs found * Robert Pugh MD 01/21/2022 12:24 PM * Op Note - Robert Pugh MD - 01/21/2022 7:22 AM EST VICKIE GONZALEZ [facility] [id number] 1955 DATE 01/21/2022 OPERATIVE REPORT SURGEON ROBERT [...] condition. ROBERT PUGH MD D 01/21/2022 12:30 [id number] T 01/21/2022 12:47 WJF/MODL documented in this [id number] History of Present illness Narrative* Angelica Randall [facility] - 01/22/2022 8:04 AM EST Patient Name: Vickie Gonzalez MR #: [id number] POD # 1 Subjective: No complaints Objective: [...] discuss with SH team documented in this [id number] Note* Quick Note - Gaby Evans RN - 01/22/2022 4:58 AM EST .. Patient oriented to room and call system: yes Goal and Plan of Care written on whiteboard: yes Dual RN skin assessment completed with: Kaley Barcenas How will patient get home at discharge: Family will take pt home [id number] Note* Brief Op Note - Robert Pugh MD - 01/21/2022 12:24 PM EST Brief Post Operative Note Patient Name: Vickie Gonzalez : 1955 (66 y.o.) Date of Service: 01/21/2022 CSN: [id number] Procedure(s): Transcatheter Aortic Valve Replacement TRANSCATHETER AORTIC VALVE REPLACEMENT FEMORAL APPROACH Pre-Operative Diagnoses: * severe aortic stenosis Post-Operative Diagnoses: * Same as Pre-Op Diagnosis Surgeon(s) and Role: Panel 1: * Lindsey Plummer MD - Primary * Stanley Grant MD Panel 2: * Meir Arthur MD - Primary * Robert Pugh MD Anesthesiologist: Chapito Mohan MD Student Nurse Dry Plasterer: Deep Sawant Molding Machine Operator Helper: Kishan Rascon RN; Alena Barker, TECHNOLOGIST; Gina Ann, JERRY; Judd Hoover RN Casing Puller: Zulma Bowen Scrub Person: ST Raven; [...] Implant Name Type Inv. Item Serial No. Segmental Paving Supervisor Lot No. LRB No. Used Action CLOSURE PERCLOSE PROSTYLE - [id number] Closure Device CLOSURE PERCLOSE PROSTYLE GARAY VAS N/A 2 Implanted VALVE 34MM EVOLUT PRO AORTIC - [id number] Percutaneous Valve VALVE 34MM EVOLUT PRO AORTIC [id number] [employer] N/A 1 Implanted Drain(s): * No LDAs found * Wound(s): * No LDAs found * Robert Pugh MD 01/21/2022 12:24 PM [employer] Work Phone: 1(551) 914-348102-22-2022 Attending History and physical note* Angelica Randall CNP - 01/21/2022 10:05 AM EST INTERVAL HISTORY AND PHYSICAL Patient Name: Vickie Gonzalez Admit Date: 2220101 MR #: [id number] : 1955 The H&P has been reviewed [...] Name: Vickie Gonzalez Admit Date: MR #: [id number] : 1955 Physicians: Nicol Ibanez MD (Family) [...] tablet by mouth daily . Historical Provider, [id number]-EFFJLDSBH-XHBO ORAL Take 1 tablet by mouth daily [...] mg total) by mouth daily . 06/10/19 Blanie Silveira MD montelukast (SINGULAIR) 10 mg tablet [...] Wt 106.3 kg (234 lb 5.6 oz) ZdU785% BMI 37.82 kg/m General: Alert, cooperative, no [...] Component Value Date HGBA1C 6.1 (H) 01/09/2022 @UMBXAYJ44@ CT TAVR Chest Abdomen Pelvis without hydration [...] the abdomen or pelvis. VK/tde Workstation ID: [id number] Carotid Duplex Result Date: 01/09/2022 Patient Info Name: VICKIE GONZALEZ Age: 66 years : 1955 Gender: Female Exam Date: 01/09/2022 11:00 AM Patient Status: Outpatient Public Relations Director: Corina BOWDEN RVT^^^^ Referring Physician: ANGELICA RANDALL ; Attending Physician: ANGELICA RANDALL Indications I35.0 - Aortic valve stenosis, severe Z01.810 - Pre-operative cardiovascular examination R09.89 - Other specified symptoms and signs involving the circulatory and respiratory systems - Preop TAVR Procedure Description 63520 Duplex examination using B-mode, color and spectral [...] (valve) insufficiency Referring Physician: BLAINE SILVEIRA ; [id number] BMI:36.64 kg/m2 Summary 1. Left ventricular systolic [...] mmHg MV VTI 28 cm MV Decel Gordon 718 cm/s2 MV PHT 48 ms MVArea [...] cm/s AR VTI 179 cm AR Decel Gordon 490 cm/s2 AR PHT 283 ms AR [...] ml/m2 16-34 RA Dimensions RA Systolic Major [place] Length (4C) 7.17 cm <=5.30 RAArea (4C) [...] stable. Stable examination. Stable cardiomegaly. Workstation ID: [id number] [id number] History and physical note* Angelica Randall CNP - 01/21/2022 10:05 AM EST INTERVAL HISTORY AND PHYSICAL Patient Name: Vickie Gonzalez Admit Date: 2220101 MR #: [id number] : 1955 The H&P has been reviewed [...] Name: Vickie Gonzalez Admit Date: MR #: [id number] : 1955 Physicians: Nicol Ibanez MD (Family) [...] tablet by mouth daily . Historical Provider, JDWLXKB-BJXBMARUF-LTRP ORAL Take 1 tablet by mouth daily [...] Component Value Date HGBA1C 6.1 (H) 01/09/2022 @EFAUSXM09@ CT TAVR Chest Abdomen Pelvis without hydration [...] acute process in the abdomen or pelvis. [employer] Workstation ID: [id number] Carotid Duplex Result Date: 01/09/2022 Patient Info Name: VICKIE GONZALEZ Age: 66 years : 1955 Gender: Female Exam Date: 01/09/2022 11:00 AM Patient Status: Outpatient Public Relations Director: Corina BOWDEN RVT^^^^ Referring Physician: ANGELICA RANDALL ; Attending Physician: ANGELICA RANDALL Indications I35.0 - Aortic valve stenosis, severe Z01.810 - Pre-operative cardiovascular examination R09.89 - Other specified symptoms and signs involving the circulatory and respiratory systems - Preop TAVR Procedure Description 08232 Duplex examination using B-mode, color and spectral [...] (valve) insufficiency Referring Physician: BLAINE SILVEIRA ; [id number] BMI:36.64 kg/m2 Summary 1. Left ventricular systolic [...] mmHg MV VTI 28 cm MV Decel Gordon 718 cm/s2 MV PHT 48 ms MVArea [...] cm/s AR VTI 179 cm AR Decel Gordon 490 cm/s2 AR PHT 283 ms AR [...] ml/m2 16-34 RA Dimensions RA Systolic Major [place] Length (4C) 7.17 cm <=5.30 RAArea (4C) [...] stable. Stable examination. Stable cardiomegaly. Workstation ID: [id number] documented in this [id number] Note* Op Note - Robert Pugh MD - 01/21/2022 7:22 AM EST VICKIE GONZALEZ [facility] [id number] 1955 DATE 01/21/2022 OPERATIVE REPORT SURGEON ROBERT [...] condition. ROBERT PUGH MD D 01/21/2022 12:30 [id number] T 01/21/2022 12:47 WGueraF/MODL [id number] Nurse Surgical operation note* Luly Arceo RN - 01/17/2022 12:24 PM EST [facility] Surgical Department Patient Instructions for [facility]: Prior to surgery: Please bathe the [...] if desired. When you arrive at the [facility] on the day of your surgery, please note that building and grounds supervisor parking is free. Pull up to the [...] to view our online educational program in [place] It is very helpful to watch this as it can help you understand your surgery preparation process here at [facility]. It will provide you with [...] contact surgeon's office with any additional questions. [id number] Nurse Note* Luly Arceo RN - 01/17/2022 12:24 PM EST [facility] Surgical Department Patient Instructions for [facility]: Prior to surgery: Please bathe the [...] if desired. When you arrive at the [facility] on the day of your surgery, please note that building and grounds supervisor parking is free. Pull up to the [...] to view our online educational program in [place] It is very helpful to watch this as it can help you understand your surgery preparation process here at [facility]. It will provide you with [...] with any additional questions. documented in this [id number] Miscellaneous Notes* Assessment & Plan Note - [...] Dr. Lindsey Plummer MD, MSc, [place], FACC, [facility]. [facility] Heart and Vascular documented in this [id number] History of Present illness Narrative* Lindsey Plummer MD - 01/09/2022 8:05 PM EST Structural Heart Disease Clinic Consult Heart & Vascular [facility] 01/09/2022 Lindsey Plummer MD [address] [address] Patient: Vickie Gonzalez Date of : 1955 [...] Dr. Lindsey Plummer MD, MSc, [place], FACC, [facility]. [facility] Heart and Vascular Follow-up: No follow-ups [...] Final Result by Muriel Guerra RN (01/09/2022 6817) Echocardiogram complete Final Result by Diego Fox MD (12/30/2021 1715) CCTA Heart (Loft Worker read) (Results Pending) HOME Medications: Patient's Medications [...] Take 1 tablet by mouth daily . ZSWWISL-DEWUCPMJS-PITT ORAL Take 1 tablet by mouth daily [...] LDLCALC, LDLDIRECT, TRIG, HDL documented in this [id number] History of Present illness Narrative* Meir Arthur MD - 01/09/2022 1:07 PM EST STRUCTURAL HEART DISEASE CLINIC TAVR CONSULTATION Patient Name: Vickie Gonzalez Admit Date: MR #: [id number] : 1955 Physicians: Nicol Ibanez MD (Family) [...] tablet by mouth daily . Historical Provider, KVACMNP-FJNCGTVWI-GVPW ORAL Take 1 tablet by mouth daily [...] Wt 106.3 kg (234 lb 5.6 oz) ArE350% BMI 37.82 kg/m General: Alert, cooperative, no [...] Component Value Date HGBA1C 6.1 (H) 01/09/2022 @FWQRJWP17@ CT TAVR Chest Abdomen Pelvis without hydration [...] acute process in the abdomen or pelvis. [employer]/tde Workstation ID: [id number] Carotid Duplex Result Date: 01/09/2022 Patient Info Name: VICKIE GONZALEZ Age: 66 years : 1955 Gender: Female Exam Date: 01/09/2022 11:00 AM Patient Status: Outpatient Public Relations Director: Corina BOWDEN RVT^^^^ Referring Physician: ANGELICA RANDALL ; Attending Physician: ANGELICA RANDALL Indications I35.0 - Aortic valve stenosis, severe Z01.810 - Pre-operative cardiovascular examination R09.89 - Other specified symptoms and signs involving the circulatory and respiratory systems - Preop TAVR Procedure Description 54128 Duplex examination using B-mode, color and spectral [...] (valve) insufficiency Referring Physician: BLAINE SILVEIRA ; [id number] BMI:36.64 kg/m2 Summary 1. Left ventricular systolic [...] mmHg MV VTI 28 cm MV Decel Gordon 718 cm/s2 MV PHT 48 ms MVArea [...] cm/s AR VTI 179 cm AR Decel Gordon 490 cm/s2 AR PHT 283 ms AR [...] ml/m2 16-34 RA Dimensions RA Systolic Major [place] Length (4C) 7.17 cm <=5.30 RAArea (4C) 28.7 cm2 <=18.0 RA Area (4C) Index 13 cm2/m2 RA ESV (4C MOD) 90 ml 15-27 RA ESV Index (4C MOD) 40 ml/m2 <=27 Report Signatures Finalized by Dieog Fox MD, RPVI on 12/30/2021 05:14 PM [...] stable. Stable examination. Stable cardiomegaly. Workstation ID: [id number] * Angelica Randall, RAMO - 01/09/2022 12:44 PM EST STRUCTURAL HEART DISEASE CLINIC TAVR CONSULTATION Patient Name: Vickie Gonzalez Admit Date: MR #: [id number] : 1955 Physicians: Nicol Ibanez MD (Family) [...] tablet by mouth daily . Historical Provider, OIQIJCL-AWWSWGEGR-CSGS ORAL Take 1 tablet by mouth daily [...] Wt 106.3 kg (234 lb 5.6 oz) AdQ227% BMI 37.82 kg/m General: Alert, cooperative, no [...] Component Value Date HGBA1C 6.1 (H) 01/09/2022 @TMWJTHG25@ CT TAVR Chest Abdomen Pelvis without hydration [...] acute process in the abdomen or pelvis. [employer]/tde Workstation ID: [id number] Carotid Duplex Result Date: 01/09/2022 Patient Info Name: VICKIE GONZALEZ Age: 66 years : 1955 Gender: Female Exam Date: 01/09/2022 11:00 AM Patient Status: Outpatient Public Relations Director: Corina BOWDEN RVT^^^^ Referring Physician: ANGELICA RANDALL ; Attending Physician: ANGELICA RANDALL Indications I35.0 - Aortic valve stenosis, severe Z01.810 - Pre-operative cardiovascular examination R09.89 - Other specified symptoms and signs involving the circulatory and respiratory systems - Preop TAVR Procedure Description 50724 Duplex examination using B-mode, color and spectral [...] (valve) insufficiency Referring Physician: BLAINE SILVEIRA ; [id number] BMI:36.64 kg/m2 Summary 1. Left ventricular systolic [...] mmHg MV VTI 28 cm MV Decel Gordon 718 cm/s2 MV PHT 48 ms MVArea [...] cm/s AR VTI 179 cm AR Decel Gordon 490 cm/s2 AR PHT 283 ms AR [...] ml/m2 16-34 RA Dimensions RA Systolic Major [place] Length (4C) 7.17 cm <=5.30 RAArea (4C) [...] stable. Stable examination. Stable cardiomegaly. 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, but stopped * Assessment & Plan Note - Blaine Silveira MD - 06/10/2021 11:29 AM EDT Associated Problem(s): Aortic insufficiency symptoms could also be Aortic Stenosis/AI will recheck echo * Assessment & Plan Note - Blaine Silveira MD - 06/10/2021 11:24 AM EDT Associated Problem(s): 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 Has had 2 spells of chest / jaw discomfort and shortness of breath, relieved with rest Will get a stress, she will also check and walk and if gets predictable may need a cath continue asa/metoprolol and will give sl ntg documented in this [id number] History of Present illness Narrative* Blaine Silveira MD - 06/10/2021 11:34 AM EDT Patient Name: Vickie Gonzalez MR #: [id number] Interventional Cardiology Blaine Silveira MD, [facility] Heart and Vascular Physicians 06/10/21 Dear Nicol Ibanez MD, Vickie Gonzalez was seen in follow up for : Problem Coronary Artery Disease Involving [place] Coronary Artery of [place] Heart Without Angina Pectoris CABG 2000 Cath 2010 all grafts open Aortic Insufficiency Moderate to Severe Asx AI-- same 12/2017 only mild-moderate Elevated Sed Rate Hld (Hyperlipidemia) Assessment and Plan 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 Has had 2 [...] and also could be fibrosiing mediastinitis 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 AWGKJME-SYMKJVSPW-DZHF ORAL Take 1 tablet by mouth daily [...] patient is not nervous/anxious. documented in this [id number] Instructions* Patient Instructions* Zoila Cueto MA - 06/10/2021 11:15 AM EDT How to contact your Care Team: Provider: Dr. Silveira Nurse: Iliana Madsen RN In case of an emergency please call [phone]. REFILLS: When in need for refills please call your care team or the office at [phone]. Please include medication name, pharmacy name, and specify 30-day or 90-day supply. Please check with your pharmacy within 24 hours of request for your refill. You must follow up as directed to continue current refills. Thank you! documented in this encounterOhioHealthDischarge summary Author Shagufta Jose [facility] Note Date/Time May 31, 2025 3:52p m [facility] Medical Records Department [address] [place] [address] Discharge Summary 05/31/25 1536 MR#: [id number] Acct: [id number] Name: VICKIE GONZALEZ Rep #:[id number] : 1955 69 From: Shagufta Garcia DO PCP: Dr. Kirill Newell MD Status:[facility] Prov[facility] Date of Admission: 05/30/25 Primary Care Physician: Dr. Kirill Newell MD Consultations 05/30/25 03:07 Consult: Cardiology Routine Consulting Provider: [facility] Reason for Consult: New-onset Atrial Flutter; with [...] who presented to the emergency department at [facility] on 05/30/2025 early in the morning with [...] for metoprolol, Eliquis, and Card[facility]em [facility] to discharge. No other [...] % (Auto) 60.4, Lymph % (Auto) 28.5, [place] % (Auto) 6.8, Eos % (Auto) 3.3, [...] (0.03 %) spray,non-aerosol INTRANASAL Patient Comments: 1-2 [place] each nostril before bedtime nightly and every [...] - Active Staff] - 06/28/25 9:45 am Kriill Newell MD [Primary Care Provider] - See Referral Note (As needed) Lindsey Finley MD [Med Staff - Active Staff] - 06/09/25 9:30 am (appointment with Alena Silver N.P.) Disposition Disposition (needs filled in before D/C Order can be placed): Home, Self Care Charges/Coding Visit Charges Inpatient E&M: 99399 Disch Hosp >30min 05/31/25 1557 <Electronically signed by Shagufta Garcia DO> Cosigner Signature (if applicable): CC: Dr. Jeff Danielle DO; Dr. Kirill Newell MD; Dr. Shagufta Garcia DO; Dr. Lindsey Finley MD~ Signed [facility] Work Phone: Evaluation note* Diagnosis 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- Primary [facility] Diagnosis 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 Nonrheumatic aortic valve insufficiency Elevated sed rate Elevated sedimentation rate Mixed hyperlipidemia [facility] Diagnosis Nonrheumatic aortic valve insufficiency- Primary [facility] Diagnosis Nonrheumatic aortic valve insufficiency- Primary [facility] Diagnosis Aortic valve stenosis, severe- Primary Aortic valve disorders Pre-operative cardiovascular examination Other specified symptoms and signs involving the circulatory and respiratory systems [facility] Diagnosis Aortic valve stenosis, severe- Primary Aortic valve disorders Pre-operative cardiovascular examination Other abnormal findings in urine Abnormal coagulation profile Abnormal coagulation profile Dyspnea, unspecified type Abnormal finding of blood chemistry, unspecified [facility] Diagnosis Encounter for preprocedure screening laboratory testing for COVID-19- Primary [facility] Diagnosis Encounter for preoperative screening laboratory testing for COVID-19 virus- [facility] Encounter for preoperative screening laboratory testing for COVID-19 virus- [facility] Diagnosis Severe aortic insufficiency- Primary Aortic valve stenosis, severe Aortic valve disorders Pre-operative cardiovascular examination [facility] Diagnosis Aortic valve stenosis, severe Aortic valve disorders Pre-operative cardiovascular examination [facility] Diagnosis Aortic valve stenosis, severe- Primary Aortic valve disorders Severe aortic insufficiency Aortic valve stenosis, severe Aortic valve disorders Severe aortic insufficiency Aortic valve stenosis, severe Aortic valve disorders Severe aortic insufficiency [facility] Diagnosis Aortic valve stenosis, severe Aortic valve disorders Severe aortic insufficiency Encounter for preprocedure screening laboratory testing for COVID-19- Primary Aortic valve stenosis, severe Aortic valve disorders Severe aortic insufficiency [facility]* Diagnosis S/P TAVR (transcatheter aortic valve replacement)- Primary [facility] Diagnosis Severe aortic stenosis- Primary Aortic valve disorders S/P TAVR (transcatheter aortic valve replacement) [facility] Diagnosis S/P TAVR (transcatheter aortic valve replacement)- Primary [facility] Diagnosis S/P TAVR (transcatheter aortic valve replacement)- Primary Shortness of breath Shortness of breath [facility] Diagnosis S/P TAVR (transcatheter aortic valve replacement)- Primary [facility] Diagnosis S/P TAVR (transcatheter aortic valve replacement)- Primary Hypertension, unspecified type [facility] Diagnosis Onset Date Resolution Status Basal cell carcinoma (BCC) of left lower extremity acute [id number] acute BMI 40.0-44.9, adult chronic HTN (hypertension) [facility] Work Phone: Evaluation note* Diagnosis Onset Date Resolution Status Basal cell carcinoma (BCC) of left lower extremity acute [id number] acute BMI 40.0-44.9, adult chronic HTN (hypertension) chronic Basal cell carcinoma (BCC) of left lower extremity acute RJX-LFIG-[id number] acute BMI 40.0-44.9, adult chronic HTN (hypertension) chronic 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 [facility] Work Phone: Evaluation note* Diagnosis Onset Date Resolution Status Basal cell carcinoma (BCC) of left lower extremity acute [id number] acute BMI 40.0-44.9, adult chronic HTN (hypertension) chronic Basal cell carcinoma (BCC) of left lower extremity acute WAO-[id number] acute BMI 40.0-44.9, adult chronic HTN (hypertension) chronic 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 Basal cell carcinoma (BCC) of left lower extremity acute PLG-PAJW-[id number] acute BMI 40.0-44.9, adult chronic HTN (hypertension) chronic 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 [facility] Work Phone: Evaluation note* Diagnosis Onset Date Resolution Status Basal cell carcinoma (BCC) of left lower extremity acute [id number] acute BMI 40.0-44.9, adult chronic HTN (hypertension) chronic Basal cell carcinoma (BCC) of left lower extremity acute HTC-JBPX-[id number] acute BMI 40.0-44.9, adult chronic HTN (hypertension) chronic 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 Basal cell carcinoma (BCC) of left lower extremity acute CMR-SBJW-[id number] acute BMI 40.0-44.9, adult chronic HTN (hypertension) chronic 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 Basal cell carcinoma (BCC) of left lower extremity acute [id number] acute HTN (hypertension) chronic 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 [facility] Work Phone: Evaluation note* Diagnosis Osteoarthritis of right knee, unspecified osteoarthritis type- Primary Hypertension, unspecified type [facility] Oste[facility] of right knee- Primary Osteoarthrosis, unspecified whether generalized or localized, lower leg 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- Primary Osteoarthritis of right knee, unspecified osteoarthritis type Severe aortic insufficiency Osteoarthritis of right knee, unspecified osteoarthritis type [facility] assessment information availableWEast [facility] Work Phone: Evaluation note* [...] unspecified osteoarthritis type [facility] Diagnosis Status post total right knee replacement- Primary [facility] Diagnosis Status post total right knee replacement- Primary [facility] Diagnosis Status post total right knee replacement- Primary [facility] Diagnosis Status post total right knee replacement [facility] Diagnosis Status post total right knee replacement- Primary [facility] Diagnosis Status post total right knee replacement- Primary [facility] Diagnosis Status post total right knee replacement- Primary [facility] Diagnosis Status post total right knee replacement- Primary [facility] Diagnosis Status post total right knee replacement- Primary [facility] Diagnosis Status post total right knee replacement- Primary [facility] Diagnosis Status post total right knee replacement- Primary [facility] Diagnosis Status post total right knee replacement- Primary [facility] Diagnosis Status post total right knee replacement- Primary [facility] Diagnosis Status post total right knee replacement- Primary [facility] Diagnosis Status post total right knee replacement- Primary [facility] Status post total right [...] artery bypass resolved May 30, 2025 2:39am [facility] Work Phone: Evaluation note* Diagnosis Fibrosing mediastinitis- Primary Mediastinitis 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 Aortic insufficiency Aortic valve disorders Nonrheumatic aortic valve insufficiency- Primary 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 Fibrosing mediastinitis Mediastinitis 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 Nonrheumatic aortic valve insufficiency SOB (shortness of breath) Shortness of breath 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 Nonrheumatic aortic valve insufficiency Elevated sed rate Elevated sedimentation rate Mixed hyperlipidemia Aortic valve stenosis, severe Aortic valve disorders Pre-operative cardiovascular examination Severe aortic stenosis- Primary Aortic valve disorders S/P TAVR (transcatheter aortic valve replacement) Severe aortic stenosis Aortic valve disorders Aortic valve stenosis, severe Aortic valve disorders 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 Ascending aorta dilation (HCC) Thoracic aneurysm without mention of rupture 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- Primary Osteoarthritis of right knee, unspecified osteoarthritis type Severe aortic insufficiency Typical atrial flutter (HCC)- Primary Severe aortic insufficiency Fibrosing mediastinitis Mediastinitis S/P TAVR (transcatheter aortic valve replacement) Mixed hyperlipidemia 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 [facility] Diagnosis Fibrosing mediastinitis- Primary Mediastinitis 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 Aortic insufficiency Aortic valve disorders Nonrheumatic aortic valve insufficiency- Primary 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 Fibrosing mediastinitis Mediastinitis 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 Nonrheumatic aortic valve insufficiency SOB (shortness of breath) Shortness of breath 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 Nonrheumatic aortic valve insufficiency Elevated sed rate Elevated sedimentation rate Mixed hyperlipidemia Aortic valve stenosis, severe Aortic valve disorders Pre-operative cardiovascular examination Severe aortic stenosis- Primary Aortic valve disorders S/P TAVR (transcatheter aortic valve replacement) Severe aortic stenosis Aortic valve disorders Aortic valve stenosis, severe Aortic valve disorders 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 Ascending aorta dilation (HCC) Thoracic aneurysm without mention of rupture 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- Primary Osteoarthritis of right knee, unspecified osteoarthritis type Severe aortic insufficiency Typical atrial flutter (HCC)- Primary Severe aortic insufficiency Fibrosing mediastinitis Mediastinitis S/P TAVR (transcatheter aortic valve replacement) Mixed hyperlipidemia 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 Typical atrial flutter (HCC)- Primary [facility]* Diagnosis Fibrosing mediastinitis- Primary Mediastinitis 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 Aortic insufficiency Aortic valve disorders Nonrheumatic aortic valve insufficiency- Primary 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 Fibrosing mediastinitis Mediastinitis 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 Nonrheumatic aortic valve insufficiency SOB (shortness of breath) Shortness of breath 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 Nonrheumatic aortic valve insufficiency Elevated sed rate Elevated sedimentation rate Mixed hyperlipidemia Aortic valve stenosis, severe Aortic valve disorders Pre-operative cardiovascular examination Severe aortic stenosis- Primary Aortic valve disorders S/P TAVR (transcatheter aortic valve replacement) Severe aortic stenosis Aortic valve disorders Aortic valve stenosis, severe Aortic valve disorders 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 Ascending aorta dilation (HCC) Thoracic aneurysm without mention of rupture 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- Primary Osteoarthritis of right knee, unspecified osteoarthritis type Severe aortic insufficiency Typical atrial flutter (HCC)- Primary Severe aortic insufficiency Fibrosing mediastinitis Mediastinitis S/P TAVR (transcatheter aortic valve replacement) Mixed hyperlipidemia 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 Typical atrial flutter (HCC) [facility] Diagnosis Fibrosing mediastinitis- Primary Mediastinitis 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 Aortic insufficiency Aortic valve disorders Nonrheumatic aortic valve insufficiency- Primary 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 Fibrosing mediastinitis Mediastinitis 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 Nonrheumatic aortic valve insufficiency SOB (shortness of breath) Shortness of breath 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 Nonrheumatic aortic valve insufficiency Elevated sed rate Elevated sedimentation rate Mixed hyperlipidemia Aortic valve stenosis, severe Aortic valve disorders Pre-operative cardiovascular examination Severe aortic stenosis- Primary Aortic valve disorders S/P TAVR (transcatheter aortic valve replacement) Severe aortic stenosis Aortic valve disorders Aortic valve stenosis, severe Aortic valve disorders 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 Ascending aorta dilation (HCC) Thoracic aneurysm without mention of rupture 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- Primary Osteoarthritis of right knee, unspecified osteoarthritis type Severe aortic insufficiency Typical atrial flutter (HCC)- Primary Severe aortic insufficiency Fibrosing mediastinitis Mediastinitis S/P TAVR (transcatheter aortic valve replacement) Mixed hyperlipidemia 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 Atrial flutter, unspecified type (HCC)- Primary [facility] Diagnosis Fibrosing mediastinitis- Primary Mediastinitis 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 Aortic insufficiency Aortic valve disorders Nonrheumatic aortic valve insufficiency- Primary 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 Fibrosing mediastinitis Mediastinitis 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 Nonrheumatic aortic valve insufficiency SOB (shortness of breath) Shortness of breath 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 Nonrheumatic aortic valve insufficiency Elevated sed rate Elevated sedimentation rate Mixed hyperlipidemia Aortic valve stenosis, severe Aortic valve disorders Pre-operative cardiovascular examination Severe aortic stenosis- Primary Aortic valve disorders S/P TAVR (transcatheter aortic valve replacement) Severe aortic stenosis Aortic valve disorders Aortic valve stenosis, severe Aortic valve disorders 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 Ascending aorta dilation (HCC) Thoracic aneurysm without mention of rupture 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- Primary Osteoarthritis of right knee, unspecified osteoarthritis type Severe aortic insufficiency Typical atrial flutter (HCC)- Primary Severe aortic insufficiency Fibrosing mediastinitis Mediastinitis S/P TAVR (transcatheter aortic valve replacement) Mixed hyperlipidemia 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 Atrial flutter, unspecified type (HCC) [facility]* Attachments The following attachments cannot be sent through Care Everywhere. * Transcatheter Aortic Valve Implantation (LIONEL): Post-op (Fijian) documented in [facility] Discharge instructions Additional Instructions Ice your left eye several times a day for the next few days, follow-up with your PCP and return for any worsening of your symptoms.[facility] Work Phone: Hospital Discharge instructionsAdditional Instructions 1. Please discussed obtaining a polysomnography or a sleep study with your primary care physician or Dr. Danielle as we suspect he may have a component of sleep apnea and this could contribute to your atrial flutter. I do not think this is the only reason you have a flutter but it could contribute.[facility] Work Phone: Patient's home Plan of care note* Visit Details Visit Type -SN [facility] Star t of Care Discipline -[facility] Problems Problem Start Date Status Goals Interventions Wound Care and/or Skin Problems Disciplines: Fci 01/27/2024 Active 1 goal linked to scheduled/documented intervention 1 goal intervention scheduled/documented in this visit Assess and Instruct Home Visit Disciplines: [facility] 01/27/2024 Active 1 goal linked to scheduled/documented intervention 4 goal interventions scheduled/documented in this visit Medication Management Disciplines: [facility] 01/27/2024 Active 1 goal linked to scheduled/documented intervention 1 goal intervention scheduled/documented in this visit Pain Management Disciplines: [facility]ci 01/27/2024 Active 1 goal linked to scheduled/documented [...] Management Goal:Pain Completed [facility]* Visit Details [facility] Care Discipline -Fci Problems Problem Start Date Status Goals Interventions Wound Care and/or Skin Problems Disciplines: [facility]ci 01/27/2024 Active 1 goal linked to scheduled/documented intervention 1 goal intervention scheduled/documented in this visit Assess and Instruct Home Visit Disciplines: [facility] 01/27/2024 Active 1 goal linked to scheduled/documented intervention 4 goal interventions scheduled/documented in this visit Medication Management Disciplines: [facility]ci 01/27/2024 Active 1 goal linked to scheduled/documented intervention 1 goal intervention scheduled/documented in this visit Pain Management Disciplines: Fci 01/27/2024 Active 1 goal linked to scheduled/documented [...] Management Goal:Pain Completed documented in this encounter [facility] Plan of care note* Visit Details [...] Care Plan Scheduled documented in this encounter [facility] Plan of care note* Visit Details Visit Type -[employer] Routine Visi t Discipline -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 Problems [...] also Clinician taught: patient Clinician instructed on: waitstaff captain educated pt on importance of increased elevation frequency d/t considerable swelling this date which is hindering ROM. pt verbalized understanding, plan to elevate at least 4 times a day c foot above heart as instructed pt [employer] TE[employer]ER this date. chair flex stretch and heel slides x10, ext prop 5'. QS, SAQ, SLR, LAQ x20 ea to improve mobility and strength. pt c/o significant tightness in knee during flex stretching and mod increased pain. waitstaff captain educated pt on importance of pushing [...] flex during amb d/t tightness in knee. waitstaff captain provided demo of good toe off and allowing knee to bend during toe off to improve mobility and flex rom. pt c mod improvement p waitstaff captain demo. Therapist provided cueing for proper TA from seated position, including reaching back for chair and feeling chair c back of legs to avoid falls. Cueing also provided for slow, eccentric control c return to sitting position. pt sba for sit to supine ta this date. waitstaff captain assisted pt c placement of pillows for cp and elevation p tx to allow for relaxed position to allow pt to remain elevated for 1 hour to decrease inflammation Patient/caregiver is able to teach back 90% of instruction. [facility] Visit Details Visit Type -[employer] Routine Visi t Discipline -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 Problems [...] in quad tendon insertion during flex stretching. waitstaff captain provided mod assist c flex stretching to improve mobility. waitstaff captain provided education on importance of flex [...] amb 175' today c fww and sba. waitstaff captain provided demo and vc for increased [...] 95% of instruction. [facility]* Visit Details Visit Type -SN HH Routine Vi sit Discipline -Fci Problems Problem Start Date Status Goals Interventions Wound Care and/or Skin Problems Disciplines: Fci 01/27/2024 Active 1 goal linked to scheduled/documented intervention 1 goal intervention scheduled/documented in this visit Assess and Instruct Home Visit Disciplines: Fci 01/27/2024 Active 1 goal linked to scheduled/documented intervention 4 goal interventions scheduled/documented in this visit Medication Management Disciplines: Fci 01/27/2024 Active 1 goal linked to scheduled/documented intervention 1 goal intervention scheduled/documented in this visit Pain Management Disciplines: Fci 01/27/2024 Active 1 goal linked to scheduled/documented [...] Management Goal:Pain Completed [facility]* Visit Details Visit Type -[employer] Routine Visi t Discipline -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 Problems [...] toe gait pattern c decresaed vc needed. waitstaff captain instructed pt to continue c frequent [...] 95% of instruction. [facility]* Visit Details Visit Type -RN CARDIAC REHAB HH Routine Discipline -F[facility] Problems Problem Start Date Status Goals Interventions Wound Care and/or Skin Problems Disciplines: Fci 01/27/2024 Active 1 goal linked to scheduled/documented intervention 1 goal intervention scheduled/documented in this visit Assess and Instruct Home Visit Disciplines: Fci 01/27/2024 Active 1 goal linked to scheduled/documented intervention 4 goal interventions scheduled/documented in this visit Medication Management Disciplines: Fci 01/27/2024 Active 1 goal linked to scheduled/documented intervention 1 goal intervention scheduled/documented in this visit Pain Management Disciplines: Fci 01/27/2024 Active 1 goal linked to scheduled/documented [...] Management Goal:Pain Completed [facility] Visit Details Visit Type -[employer] Routine Visi t Discipline -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 Problems [...] progress. very tight, firm end feel c waitstaff captain assisted heel slides this date Patient/caregiver is able to teach back 95% of instruction. Instruct Mobility Problem:Mobility Goal:Mobility Completed Patient reports: walking more but does report increased pain this date d/t decerase pain med freqency. Clinician taught: patient Clinician instructed on: waitstaff captain educated pt on not weaning off [...] 95% of instruction. [facility] Visit Details Visit Type -SN HH [facility] Star t of Care Discipline -Fci Problems Problem Start Date Status Goals Interventions Wound Care and/or Skin Problems Disciplines: Fci 01/27/2024 Active 1 goal linked to scheduled/documented intervention 1 goal intervention scheduled/documented in this visit Assess and Instruct Home Visit Disciplines: Fci 01/27/2024 Active 1 goal linked to scheduled/documented intervention 4 goal interventions scheduled/documented in this visit Medication Management Disciplines: Fci 01/27/2024 Active 1 goal linked to scheduled/documented intervention 1 goal intervention scheduled/documented in this visit Pain Management Disciplines: Fci 01/27/2024 Active 1 goal linked to scheduled/documented [...] Management Goal:Pain Completed [facility] Visit Details Visit Type -RN CARDIAC REHAB Routine Discipline -Fci Problems Problem Start Date Status Goals Interventions Wound Care and/or Skin Problems Disciplines: Fci 01/27/2024 Active 1 goal linked to scheduled/documented intervention 1 goal intervention scheduled/documented in this visit Assess and Instruct Home Visit Disciplines: Fci 01/27/2024 Active 1 goal linked to scheduled/documented intervention 4 goal interventions scheduled/documented in this visit Medication Management Disciplines: Fci 01/27/2024 Active 1 goal linked to scheduled/documented intervention 1 goal intervention scheduled/documented in this visit Pain Management Disciplines: Fci 01/27/2024 Active 1 goal linked to scheduled/documented [...] Management Goal:Pain Completed [facility]* Visit Details Visit Type -[employer] Routine Visi t Discipline -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 Problems [...] in quad tendon insertion during flex stretching. waitstaff captain provided mod assist c flex stretching to improve mobility. waitstaff captain provided education on importance of flex [...] amb 175' today c fww and sba. waitstaff captain provided demo and vc for increased [...] of care note* Visit Details Visit Type -[employer]ER Routine Visi t Discipline -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 Problems [...] toe gait pattern c decresaed vc needed. waitstaff captain instructed pt to continue c frequent [...] 95% of instruction. [facility]* Visit Details Visit Type -[employer]ER Routine Visi t Discipline -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 Problems [...] also Clinician taught: patient Clinician instructed on: waitstaff captain educated pt on importance of increased elevation frequency d/t considerable swelling this date which is hindering ROM. pt verbalized understanding, plan to elevate at least 4 times a day c foot above heart as instructed pt [employer] TE[employer]ER this date. chair flex stretch and heel slides x10, ext prop 5'. QS, SAQ, SLR, LAQ x20 ea to improve mobility and strength. pt c/o significant tightness in knee during flex stretching and mod increased pain. waitstaff captain educated pt on importance of pushing [...] flex during amb d/t tightness in knee. waitstaff captain provided demo of good toe off and allowing knee to bend during toe off to improve mobility and flex rom. pt c mod improvement p waitstaff captain demo. Therapist provided cueing for proper TA from seated position, including reaching back for chair and feeling chair c back of legs to avoid falls. Cueing also provided for slow, eccentric control c return to sitting position. pt sba for sit to supine ta this date. waitstaff captain assisted pt c placement of pillows for cp and elevation p tx to allow for relaxed position to allow pt to remain elevated for 1 hour to decrease inflammation Patient/caregiver is able to teach back 90% of instruction. 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 waitstaff captain provided vc and demo for proper [...] 100% of instruction. [facility]* Visit Details Visit Type -SN HH OASIS Star t of Care Discipline -Fci Problems Problem Start Date Status Goals Interventions Wound Care and/or Skin Problems Disciplines: Fci 01/27/2024 Active 1 goal linked to scheduled/documented intervention 1 goal intervention scheduled/documented in this visit Assess and Instruct Home Visit Disciplines: Fci 01/27/2024 Active 1 goal linked to scheduled/documented intervention 4 goal interventions scheduled/documented in this visit Medication Management Disciplines: Fci 01/27/2024 Active 1 goal linked to scheduled/documented intervention 1 goal intervention scheduled/documented in this visit Pain Management Disciplines: Fci 01/27/2024 Active 1 goal linked to scheduled/documented [...] Management Goal:Pain Completed [facility] Visit Details Visit Type -SN HH Non-OASIS/ Discipline DC Discipline -Fci Problems Problem Start Date Status Goals Interventions Wound Care and/or Skin Problems Disciplines: Fci 01/27/2024 Resolved on 02/11/2024 1 goal linked to scheduled/documented intervention 1 goal intervention scheduled/documented in this visit Assess and Instruct Home Visit Disciplines: Fci 01/27/2024 Resolved on 02/11/2024 1 goal linked to scheduled/documented intervention 4 goal interventions scheduled/documented in this visit Medication Management Disciplines: Fci 01/27/2024 Resolved on 02/11/2024 1 goal linked to scheduled/documented intervention 1 goal intervention scheduled/documented in this visit Pain Management Disciplines: Fci 01/27/2024 Resolved on 02/11/2024 1 goal linked [...] Management Goal:Pain Scheduled [facility] Visit Details 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 waitstaff captain provided vc and demo for proper [...] 100% of instruction. [facility]* Visit [...] Care Plan Scheduled [facility] Actions Pt [facility] to [facility]. Reviewed care plan, medications, pain mgmt, ice and elevation, S&S to report, wound care and safety with ambulation. Patient/caregiver verbalized understanding and agreement. [facility] Actions Pt [facility] in to [facility]. Reviewed care plan, medications, pain mgmt, ice and elevation, S&S to report, wound care and safety with ambulation. Patient/caregiver verbalized understanding and agreement. [facility] Actions Homebound Status [...] teach wound/skin/incision care as per discharge instructions Door Attendant Goals: Patient remains safe at home, Patient [...] be able to bend it more PT [facility] complete, PT 1x1, 3x2 Skilled interventions at [facility] included: Pt educated on icing 3-4x [...] questions or concerns. [facility] Actions Homebound Status [...] determined by P.T. [facility] Actions Homebound Status [...] determined by P.T. [facility]* Actions Homebound Status [...] determined by P.T. [facility]* Actions CP assessment [...] Home: 2-story house [facility] Actions Homebound Status [...] determined by P.T. [facility] Actions Pt [facility]. Reviewed care plan, medications, pain mgmt, ice and elevation, S&S to report, wound care and safety with ambulation. Patient/caregiver verbalized understanding and agreement. [facility] Actions CP assessment [...] Home: 2-story house [facility] Actions Homebound Status [...] determined by P.T. [facility]* Actions Homebound Status [...] determined by P.T. [facility]* Actions Homebound Status [...] determined by P.T. [facility] Actions Pt [facility] in to [facility]. Reviewed care plan, medications, pain mgmt, ice and elevation, S&S to report, wound care and safety with ambulation. Patient/caregiver verbalized understanding and agreement. [facility]* Actions Homebound Status [...] determined by P.T. [facility] ([facility]No reason for referral information availableWEast [facility] Work Phone: Reason for visit Narrative* Auth/Cert Specialty Diagnoses / Procedures Referred By Yanet guerra Referred To Contact Diagnoses severe aortic stenosis Procedures HI TRANSCATHETER TRANSAPICAL REPLACEMT AORTIC VALVE Transcatheter Aortic Valve Replacement TRANSCATHETER AORTIC VALVE REPLACEMENT FEMORAL APPROACH Referral ID Status Reason Start Date Expiration Date Visits Re quested Visits Authorized [id number] 1 1 [facility] N[facility]ative* Auth/Cert (Routine) Specialty Diagnoses / Procedures Referred By Yanet t Referred To Contact Procedures HI OFFICE/OUTPT VISIT,PROCEDURE ONLY Ablation-Complex Referral ID Status Reason Start Date Expiration Date Visits Re quested Visits Authorized [id number] 1 1 [facility] Assessments Diagnosis SOB (shortness of breath) Shortness of breath Diagnosis SOB (shortness of breath) Shortness of breath 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 Fibrosing mediastinitis Mediastinitis Nonrheumatic aortic valve insufficiency Diagnosis Nonrheumatic aortic valve insufficiency Summary Purpose Family History No Family History Records Found Relationship Condition Age at Onset Recorded Date/T ayleen mother Diabetes mellitus Unknown father Obstructive sleep apnea syndrome Unknown Advance Directives No Advanced Directives Records FoundDocuments on File Type Date Recorded 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 Advance Directives and Living Will Documents on File Type Date Recorded 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 Advance Directives and Livin g Will Advance Directives and Livin g Will 06/14/2019 12:00 AM Documents on File Type Date Recorded 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 Advance Directives and Livin g Will Advance Directives and Livin g Will 06/14/2019 12:00 AM Documents on File Type Date Recorded 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 Advance Directives and Livin g Will Advance Directives and Livin g Will 01/09/2022 7:51 AM Documents on File Type Date Recorded 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 Yes May 29, 2025 11:26pm Name of Medical Power of White Sourer Andrei Omalley May 29, 2025 11:26pm Advance Directive Response Recorded Date/ Time Do you have a Healthcare Power of [place]? Yes May 30, 2025 3:08am Name of Medical Power of [place] Andrei Omalley-son May 30, 2025 3:08am Date [...] insufficiency Procedures Echocardiogram complete Blaine Silveira MD [address] [place] [address] Status Reason Specialty Diagnoses / Procedures Referre d By Contact Referred To Contact Closed Cardiology Diagnoses Nonrheumatic aortic valve insufficiency Procedures [place] [address] [place] [address] Status Reason Specialty Diagnoses / Procedures Referred By Contact Referred To Contact Authorized Cardiology Diagnoses 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 Procedures ECG 12 [place] [address] [place] [address] Status Reason Specialty Diagnoses / Procedures Referred By Contact Referred To Contact New Request Radiology Diagnoses 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 Procedures NM Myocardial Perfusion Multiple SPECT Blaine Silveira MD [address] [place] [address] Status Reason Specialty Diagnoses / Procedures Referred By Contact Referred To Contact New Request Cardiology Diagnoses Nonrheumatic aortic valve insufficiency Procedures [place] [address] [place] [address] Status Reason Specialty Diagnoses / Procedures Referred By Contact Referred To Contact Pending Review Cardiology Diagnoses Nonrheumatic aortic valve insufficiency Procedures [place] [address] [place] [address] Specialty Diagnoses / Procedures Referred By Contac t Referred To Contact Cardiology Diagnoses Aortic valve stenosis, severe Pre-operative cardiovascular examination Procedures ECG 12 Lead Angelica Randall INPATIENT PHARMACIST [address] [place] [address] Referral ID Status Reason Start Date Expiration Date V isits Requested Visits Authorized [id number] Authorized 12/31/2021 12/31/2022 1 1 Specialty Diagnoses / Procedures Referred By Contac t Referred To Contact Cardiology Diagnoses Aortic valve stenosis, severe Pre-operative cardiovascular examination Other specified symptoms and signs involving the circulatory and respiratory systems Procedures Carotid Duplex Dye, Angelica Taylor INPATIENT PHARMACIST [address] [facility] [address] [place] [place] [address] Referral ID Status Reason Start Date Expiration Date V isits Requested Visits Authorized [id number] Authorized 12/31/2021 12/31/2022 1 1 Specialty Diagnoses / Procedures Referred By Contac t Referred To Contact Cardiology Diagnoses S/P TAVR (transcatheter aortic valve replacement) Procedures ECG 12 Lead Angelica Randall, INPATIENT PHARMACIST [address] [place] [place], [place] [id number] Referral ID Status Reason Start Date Expiration Date Visits Re quested Visits Authorized [id number] Closed 01/22/2022 01/22/2023 1 1 Specialty Diagnoses / Procedures Referred By Contac t Referred To Contact Cardiology Diagnoses S/P TAVR (transcatheter aortic valve replacement) Procedures Echocardiogram complete ToniaAngelica, INPATIENT PHARMACIST [address] [facility] [address] [place] [id number] Referral ID Status Reason Start Date Expiration Date Visits Re quested Visits Authorized [id number] Closed 01/22/2022 01/22/2023 1 1 Specialty Diagnoses / Procedures Referred By Contac t Referred To Contact Cardiac Rehabilitation Diagnoses S/P TAVR (transcatheter aortic valve replacement) ToniaAngelica, INPATIENT PHARMACIST [address] [facility] [address] [place] [phone] Referral ID Status Reason Start Date Expiration Date V isits Requested Visits Authorized [id number] Authorized 01/21/2022 01/21/2023 1 1 Referral ID Status Reason Start Date Expiration Date Visits Re quested Visits Authorized [id number] Closed 06/19/2022 06/19/2023 1 1 Referral ID Status Reason Start Date Expiration Date V isits Requested Visits Authorized [id number] Authorized 06/19/2022 06/19/2023 1 1 Specialty Diagnoses / Procedures Referred By Contac t Referred To Contact Cardiology Diagnoses Osteoarthritis of right knee, unspecified osteoarthritis type Jass Pepe MD [address] [place] [address] [facility] [address] [facility] [place] [address] Referral ID Status Reason Start Date Expiration Date Visits Requested Visits Authorized [id number] Authorized Specialty Services Required/Pat ient's Best Interest 09/26/2024 1 1 Specialty Diagnoses / Procedures Referred By Contac t Referred To Contact Radiology Diagnoses Osteoarthritis of right knee, unspecified osteoarthritis type Procedures CT Knee Right Without Contrast Jass Pepe MD [address] [place] [address] Referral ID Status Reason Start Date Expiration Date V isits Requested Visits Authorized [id number] New Request 09/27/2023 09/26/2024 1 1 Specialty Diagnoses / Procedures Referred By Yanet t Referred To Contact Rehabilitation Diagnoses Status post total right knee replacement Jass Pepe MD [address] [place] [address] [address] Referral ID Status Reason Start Date Expiration Date V isits Requested Visits Authorized [id number] Authorized 02/01/2024 01/31/2025 1 1 History of Present Illness * Blaine Silveira MD - 06/06/2019 2:56 PM EDT Patient Name: Vickie Gonzalez [facility] MR #: [id number] Interventional Cardiology Blaine Silveira MD, [facility] 06/06/19 Dear Nicol Ibanez MD, Vickie Gonzalez was seen in follow up for : Problem Coronary Artery Disease Involving [place] Coronary Artery of [place] Heart Without Angina Pectoris CABG 2001 Cath 2010 all grafts open Aortic Insufficiency Moderate to Severe Asx AI-- same 12/2017 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 [id number]-[id number] ORAL Take 1 tablet by mouth daily [...] cell carcinoma (BCC) of left lower extremity [id number] BMI 40.0-44.9, adult HTN (hypertension) Chief Complaint WOUND WOUND Reason for Visit Basal cell carcinoma (BCC) of left lower extremity [id number] BMI 40.0-44.9, adult HTN (hypertension) Basal cell carcinoma (BCC) of left lower extremity [id number] BMI 40.0-44.9, adult HTN (hypertension) Non-pressure chronic ulcer of left calf with fat layer exposed Chief Complaint WOUND WOUND WOUND LAC Reason for Visit Basal cell carcinoma (BCC) of left lower extremity [id number] BMI 40.0-44.9, adult HTN (hypertension) Basal cell carcinoma (BCC) of left lower extremity [id number] BMI 40.0-44.9, adult HTN (hypertension) Non-pressure chronic ulcer of left calf with fat layer exposed Basal cell carcinoma (BCC) of left lower extremity [id number] BMI 40.0-44.9, adult HTN (hypertension) Non-pressure chronic ulcer of left calf with fat layer exposed Chief Complaint WOUND WOUND WOUND LAC WOUND Reason for Visit Basal cell carcinoma (BCC) of left lower extremity [id number] BMI 40.0-44.9, adult HTN (hypertension) Basal cell carcinoma (BCC) of left lower extremity [id number] BMI 40.0-44.9, adult HTN (hypertension) Non-pressure chronic ulcer of left calf with fat layer exposed Basal cell carcinoma (BCC) of left lower extremity [id number] BMI 40.0-44.9, adult HTN (hypertension) Non-pressure chronic ulcer of left calf with fat layer exposed Basal cell carcinoma (BCC) of left lower extremity [id number] HTN (hypertension) Non-pressure chronic ulcer of left [...] section and content) DATE CREATED AUTHOR 05/24/2018 [facility] DATE CREATED AUTHOR AUTHOR'S ORGANIZ ATION 09/10/2022 [facility] DATE CREATED AUTHOR AUTHOR'S ORGANIZ ATION 01/25/2023 [facility] DATE CREATED AUTHOR AUTHOR'S ORGANIZ ATION 11/15/2023 [facility] DATE CREATED AUTHOR AUTHOR'S ORGANIZ ATION 02/16/2024 [facility] DATE CREATED AUTHOR AUTHOR'S ORGANIZ ATION 03/15/2024 [facility] DATE CREATED AUTHOR AUTHOR'S ORGANIZ ATION 06/18/2025 [facility] DATE CREATED AUTHOR AUTHOR'S ORGANIZ ATION 07/14/2025 [facility] DATE CREATED AUTHOR AUTHOR'S ORGANIZ ATION [facility] DATE CREATED AUTHOR AUTHOR'S ORGANIZ ATION 09/15/2025 [facility] Reason for Visit (unrecogniz ed section and content) Reason Comments Annual Exam no complaints or con cerns for todays visit Status Reason Specialty Diagnoses / Procedures Referre d By Contact Referred To Contact Closed Cardiology Diagnoses Nonrheumatic aortic valve insufficiency Procedures [place] [address] [place] [address] Reason Comments Annual Exam Jaw Pain Shortness of Breath Reason Comments Initial Visit (Intake) TAVR Reason Comments Follow-up 2 Week TAVR Reason Comments Follow-up 1 Year TAVR Reason Comments Follow-up Specialty Diagnoses / Procedures Referred By Yanet guerra Referred To Contact Cardiology Diagnoses Osteoarthritis of right knee, unspecified osteoarthritis type Jass Pepe MD [address] [place] [address] Blaine Silveira MD [address] [place] [phone] Referral ID Status Reason Start Date Expiration Date V isits Requested Visits Authorized [id number] Closed Specialty Services Required/Leda ent's Best Interest 09/27/2023 09/26/2024 1 1 Reason Onset Date Comments Medication Refill 01/11/2024 Reason Comments Pre-op Exam Specialty Diagnoses / Procedures Referred By Yanet t Referred To Contact Referral ID Status Reason Start Date Expiration Date Visits Re quested Visits Authorized [id number] 1 1 Reason Onset Date Comments Medication Refill 02/08/2024 Reason Comments Follow-up Suture / Staple Removal Reason Comments 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 Specialty Diagnoses / Procedures Referred By Yanet guerra Referred To Contact Rehabilitation Diagnoses Status post total right knee replacement Jsas Pepe MD [address] [place] [address] [facility] [place] [address] [place] [address] Referral ID Status Reason Start Date Expiration Date V isits Requested Visits Authorized [id number] Authorized 02/01/2024 01/31/2025 13 199 Specialty Diagnoses / Procedures Referred By Yanet guerra Referred To Contact Rehabilitation Diagnoses Status post total right knee replacement Jass Pepe MD [address] [place] [phone] [facility] [address] [place] [address] Reason Comments Follow-up Reason Onset Date Comments [...] issues Associated Problem(s): 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 Rare angina Doing well, Medications reviewed and will continue current meds Followup 1 year documented in this encounter Care Teams (unrecognized sec tion and content) Program Director Air Talent Relationship Specialty Start Date End Date Nicol Ibanez MD [address] [place] [address] PCP - General 08/26/11 Jass Pepe MD [address] [place] [address] Consulting Physician Orthopedic Surgery 05/20/16 Program Director Air Talent Relationship Specialty Start Date End Date Nicol Ibanez MD [address] [place] [address] PCP - General 08/26/11 Jass Pepe MD [address] [place] [address] Consulting Physician Orthopedic Surgery 05/20/16 Program Director Air Talent Relationship Specialty Start Date End Date Nicol Ibanez MD [address] [place] [address] PCP - General 08/26/11 Jass Pepe MD [address] [place] [address] Consulting Physician Orthopedic Surgery 05/20/16 Program Director Air Talent Relationship Specialty Start Date End Date Nicol Ibanez MD [address] [place] [address] PCP - General 08/26/11 Jass Pepe MD [address] [place] [address] Consulting Physician Orthopedic Surgery 05/20/16 Program Director Air Talent Relationship Specialty Start Date End Date Nicol Ibanez MD [address] [place] [address] PCP - General 08/26/11 Jass Pepe MD [address] [place] [address] Consulting Physician Orthopedic Surgery 05/20/16 Program Director Air Talent Relationship Specialty Start Date End Date Nicol Ibanez MD [address] [place] [address] PCP - General 08/26/11 Jass Pepe MD [address] [place] [address] Consulting Physician Orthopedic Surgery 05/20/16 Program Director Air Talent Relationship Specialty Start Date End Date Nicol Ibanez MD [address] [place] [address] PCP - General 08/26/11 Jass Pepe MD [address] [place] [address] Consulting Physician Orthopedic Surgery 05/20/16 Program Director Air Talent Relationship Specialty Start Date End Date Nicol Ibanez MD [address] [place] [address] PCP - General 08/26/11 Jass Pepe MD [address] [address] Consulting Physician Orthopedic Surgery 05/20/16 Program Director Air Talent Relationship Specialty Start Date End Date Nicol Ibanez MD [address] [place] [address] PCP - General 08/26/11 Jass Pepe MD [address] [place] [address] Consulting Physician Orthopedic Surgery 05/20/16 Program Director Air Talent Relationship Specialty Start Date End Date Nicol Ibanez MD [address] [place] [address] PCP - General 08/26/11 Jass Pepe MD [address] [place] [address] Consulting Physician Orthopedic Surgery 05/20/16 Program Director Air Talent Relationship Specialty Start Date End Date Nicol Ibanez MD [address] [place] [address] PCP - General 08/26/11 Jass Pepe MD [address] [place] [address] Consulting Physician Orthopedic Surgery 05/20/16 Program Director Air Talent Relationship Specialty Start Date End Date Nicol Ibanez MD [address] [place] [address] PCP - General 08/26/11 Jass Pepe MD [address] [address] Consulting Physician Orthopedic Surgery 05/20/16 Team Status: [...] MD Attending Provider, Emergency Provi aleksandar Active Program Director Air Talent Relationship Specialty Start Date End Date Nicol Ibanez MD [address] [place] [address] PCP - General 08/26/11 Jass Pepe MD [address] [place] [address] Consulting Physician Orthopedic Surgery 05/20/16 Program Director Air Talent Relationship Specialty Start Date End Date Nicol Ibanez MD [address] [place] [address] PCP - General 08/26/11 Jass Pepe MD [address] [place] [address] Consulting Physician Orthopedic Surgery 05/20/16 Team Status: Active Member Role Status Dates Dr. Nicol Ibanez MD Family Provider Active Dr. Kirill Newell MD Primary Care Provider Active Team Status: Inactive Member Role Status Dates Dr. Kirill Newell MD Primary Care Provide r, Attending Provider, Referring Provider Active Program Director [employer] Relationship Specialty Start Date End Date Nicol Ibanez MD [address] [place] [address] PCP - General 08/26/11 Jass Pepe MD [address] [place] [address] Consulting Physician Orthopedic Surgery 05/20/16 Program Director Air Tal[employer] Relationship Specialty Start Date End Date Nicol Ibanez MD [address] [place] [address] PCP - General 08/26/11 Jass Pepe MD [address] [place] [address] Consulting Physician Orthopedic Surgery 05/20/16 Program Director Air Tal[employer] Relationship Specialty Start Date End Date Nicol Ibanez MD [address] [place] [address] PCP - General 08/26/11 Jass Pepe MD [address] [place] [address] Consulting Physician Orthopedic Surgery 05/20/16 Program Director Air Tal[employer] Relationship Specialty Start Date End Date Nicol Ibanez MD [address] [place] [address] PCP - General 08/26/11 Jass Pepe MD [address] [place] [address] Consulting Physician Orthopedic Surgery 05/20/16 Program Director Air Tal[employer] Relationship Specialty Start Date End Date Nicol Ibanez MD [address] [place] [address] PCP - General 08/26/11 Jass Pepe MD [address] [place] [address] Consulting Physician Orthopedic Surgery 05/20/16 Program Director Air Tal[employer] Relationship Specialty Start Date End Date Nicol Ibanez MD [address] [place] [address] PCP - General 08/26/11 Jass Pepe MD [address] [place] [address] Consulting Physician Orthopedic Surgery 05/20/16 Program Director Air Talent Relationship Specialty Start Date End Date Nicol Ibanez MD [address] [place] [address] PCP - General 08/26/11 Jass Pepe MD [address] [place], [facility] Consulting Physician Orthopedic Surgery 05/20/16 Program Director Air Talent Relationship Specialty Start Date End Date Nicol Ibanez MD [address] [place] [address] PCP - General 08/26/11 Jass Pepe MD [address] [place] [address] Consulting Physician Orthopedic Surgery 05/20/16 Program Director Air Talent Relationship Specialty Start Date End Date Nicol Ibanez MD [address] [place] [address] PCP - General 08/26/11 Jass Pepe MD [address] [place] [place] [address] Consulting Physician Orthopedic Surgery 05/20/16 Program Director Air Talent Relationship Specialty Start Date End Date Nicol Ibanez MD [address] [place] [address] PCP - General 08/26/11 Jass Pepe MD [address] [place] [address] Consulting Physician Orthopedic Surgery 05/20/16 Program Director Air Talent Relationship Specialty Start Date End Date Nicol Ibanez MD [address] [place] [address] PCP - General 08/26/11 Jass Pepe MD [address] [place] [address] Consulting Physician Orthopedic Surgery 05/20/16 Program Director Air Talent Relationship Specialty Start Date End Date Nicol Ibanez MD [address] [place] [address] PCP - General 08/26/11 Jass Pepe MD [address] [place] [address] Consulting Physician Orthopedic Surgery 05/20/16 Program Director Air Talent Relationship Specialty Start Date End Date Nicol Ibanez MD [address] [place] [address] PCP - General 08/26/11 Jass Pepe MD [address] [place] [address] Consulting Physician Orthopedic Surgery 05/20/16 Program Director Air Talent Relationship Specialty Start Date End Date Nicol Ibanez MD [address] [place] [address] PCP - General 08/26/11 Jass Pepe MD [address] [place] [address] Consulting Physician Orthopedic Surgery 05/20/16 Program Director Air Talent Relationship Specialty Start Date End Date Nicol Ibanez MD [address] [place] [address] PCP - General 08/26/11 Jass Pepe MD [address] [place] [address] Consulting Physician Orthopedic Surgery 05/20/16 Program Director Air Talent Relationship Specialty Start Date End Date Nicol Ibanez MD [address] [place] [address] PCP - General 08/26/11 Jass Pepe MD [address] [place] [address] Consulting Physician Orthopedic Surgery 05/20/16 Program Director Air Talent Relationship Specialty Start Date End Date Nicol Ibanez MD [address] [place] [address] PCP - General 08/26/11 Jass Pepe MD [address] [place] [address] Consulting Physician Orthopedic Surgery 05/20/16 Program Director Air Talent Relationship Specialty Start Date End Date Nicol Ibanez MD [address] [place] [address] PCP - General 08/26/11 Jass Pepe MD [address] [place] [address] Consulting Physician Orthopedic Surgery 05/20/16 Program Director Air Talent Relationship Specialty Start Date End Date Nicol Ibanez MD [address] [place] [address] PCP - General 08/26/11 Jass Pepe MD [address] [place] [address] Consulting Physician Orthopedic Surgery 05/20/16 Program Director Air Talent Relationship Specialty Start Date End Date Nicol Ibanez MD [address] [place] [address] PCP - General 08/26/11 Jass Pepe MD [address] [place] [address] Consulting Physician Orthopedic Surgery 05/20/16 Program Director Air Talent Relationship Specialty Start Date End Date Nicol Ibanez MD [address] [place] [address] PCP - General 08/26/11 Jass Pepe MD [address] [place] [address] Consulting Physician Orthopedic Surgery 05/20/16 Program Director Air Talent Relationship Specialty Start Date End Date Nicol Ibanez MD [address] [place] [address] PCP - General 08/26/11 Jass Pepe MD [address] [place] [address] Consulting Physician Orthopedic Surgery 05/20/16 Program Director Air Talent Relationship Specialty Start Date End Date Nicol Ibanez MD [address] [place] [address] PCP - General 08/26/11 Jass Pepe MD [address] [place] [address] Consulting Physician Orthopedic Surgery 05/20/16 Team Status: [...] 2025 End: May 31, 2025 Irena Finch [employer], [employer] Other Provider Active Start : May 30, [...] Active Start: May 31, 2025 Irena Finch [employer], [employer] Other Provider Active Start : May 31, 2025 Alena SIMS, PA Other Provider Active Start: May 31, 2025 LEVI Clemens Other Provider Active Start: May 31, 2025 Program Director Air Talent Relationship Specialty Start Date End Date Nicol Ibanez MD [address] [place] [address] PCP - General 08/26/11 Jass Pepe MD [address] [place] [id number] Consulting Physician Orthopedic Surgery 05/20/16 Program Director Air Talent Relationship Specialty Start Date End Date Nicol Ibanez MD [address] [place] [address] PCP - General 08/26/11 Jass Pepe MD [address] [place] [address] Consulting Physician Orthopedic Surgery 05/20/16 Program Director Air Talent Relationship Specialty Start Date End Date Nicol Ibanez MD [address] [place] [address] PCP - General 08/26/11 Jass Pepe MD [address] [place] [address] Consulting Physician Orthopedic Surgery 05/20/16 Program Director Air Talent Relationship Specialty Start Date End Date Nicol Ibanez MD [address] [place], [facility] PCP - General 08/26/11 Jass Pepe MD [address] [place] [address] Consulting Physician Orthopedic Surgery 05/20/16 Program Director Air Talent Relationship Specialty Start Date End Date Nicol Ibanez MD [address] [place], [facility] PCP - General 08/26/11 Jass Pepe MD [address] [place] [address] Consulting Physician Orthopedic Surgery 05/20/16 Program Director Air Talent Relationship Specialty Start Date End Date Nicol Ibanez MD [address] [place] [address] PCP - General 08/26/11 Jass Pepe MD [address] [place] [address] Consulting Physician Orthopedic Surgery 05/20/16 Program Director Air Talent Relationship Specialty Start Date End Date iNcol Ibanez MD [address] [place] [address] PCP - General 08/26/11 Jass Pepe MD [address] [place] [address] Consulting Physician Orthopedic Surgery 05/20/16 [...] Active Start: May 31, 2025 Irena Finch [employer], [employer] Other Provider Active Start : May 31, [...] August 08, 2025 End: August 08, 2025 Program Director Air Talent Relationship Specialty Start Date End Date Nicol Ibanez MD [address] [place] [address] PCP - General 08/26/11 Jass Pepe MD [address] [place] [address] Consulting Physician Orthopedic Surgery 05/20/16 Program Director Air Talent Relationship Specialty Start Date End Date Kirill Newell MD [address] [facility] [address] [place] [address] PCP - General Family Medicine 08/23/25 Jass Pepe MD [address] [place] [phone] Consulting Physician Orthopedic Surgery 05/20/16 Scheduled Active [...] PLACED TUBE OR TUBE less than 14 Slov[place] For tube administration: dissolve tablet(s) with 4 [...] Thu01/21/22 at 1636, PACU (only), Arterial and Epsom Annetta Lines at 300 mmHg 1738 (Canceled [...] BE BASED ON THE PRIMARY CLINICAL RECORDS. [facility]. provides no warranty or guarantee of the accuracy or completeness of information in this document.
[2025-09-19 20:00] LABS: Hematocrit 37.0 % (37-47); Hemoglobin 12.3 g/dL (12.0-15.0); Immature Granulocytes Count 0.040 X10^3/uL (0.0-0.0); Mean Corp Hgb Conc 33.2 g/dL (32-36); Mean Corpuscular Volume 90.0 fL (81-99); Mean Platelet Vol. 12.6 fl (6.2-12.0); NRBC Flagged by Analyzer 0 % (0-5); Platelet Count 240 K/mm3 (150-450); RBC Distribution Width CV 15.1 % (11.6-14.6); RBC Distribution Width SD 49.1 fl (35.1-43.9); Red Blood Count 4.11 M/mm3 (4.2-5.4); White Blood Count 8.1 K/mm3 (4.4-11.0)
[2025-09-19 20:35] LABS: AST(SGOT) 33 U/L (<=31); Alanine Aminotransfer ALT/SGPT 20 U/L (<=34); Albumin, Serum 3.9 g/dL (3.4-4.8); Alkaline Phosphatase 135 U/L (35-104); Anion Gap 13 (5-15); BUN 25 mg/dL (4-19); BUN/Creat Ratio 27.9 RATIO (10-20); Calcium,Total 9.6 mg/dL (7.6-11.0); Carbon Dioxide 24.9 mmol/L (21.0-32.0); Chloride 100 mmol/L (98-108); Globulin 4.1 g/dL (2.2-4.2); Glucose 96 mg/dL (70-99); Potassium 4.2 mmol/L (3.3-5.1)
== END | disposition home or self-care (01) ==
LOC: LABSPEC 19:08 → MFPLAB 19:56
PROVIDERS: PCP Family Medicine; Referring Provider Family Medicine; Visit Provider Family Medicine
DX: I10 Essential (primary) hypertension (principal)
CPT/HCPCS: 36415; 80053; 85025

== ENCOUNTER 2025-10-04 14:00 | Outpatient (RCR) | payer MEDICARE, OTHER, SELFPAY ==
--- NOTE | 2025-08-03 11:41 | HP.PTEVAL_ITS ---
Patient's Visit Information Visit Information Visit Information: FEMI GONZALEZ is a 69 year old F referred to 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 by Dr. José Miguel Newell MD with a diagnosis of LEFT SHOULDER WEAKNESS , CORE WEAKNESS. Date of Evaluation: 08/03/25 Physical Therapist: Alber Umana, PT, Cert MDT, OCS Visit Plan Frequency: 2x /Week Duration: 4 Weeks Plan: PT INTERVENTIONS ROM SHOULDER ,STRENGTHENING RTC/SCAPULAR STRENGTHENING ,MANUAL THERAPY PROM ,CORE STRENGTHENING AND MODALTIES PRN Subjective Subjective: This 69 y/o female presents to physical therapy with left shoulder pain and decrease core. Patient has had shoulder pain ~ 4 months . Patient had wellness check . Patient recently had hospitalized for A -Fib. Patient left shoulder global. Patient pain worse with OH activities ,lifting and pushing with arms from chair, Symptoms worse when reaching in cupboard ,reaching across body ,IR put on coat. Denies paresthesia/tingling -. Patient sleeping okay. Patient has no injury or trauma. Patient condition affects QOL and function/ADLS. Increase strength. 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 Left Shoulder: Pain Intensity (Out of 10): 0 Pain Intensity Range: 5 Objective Objective: POSTURE: mild forward posture rounded shoulders PALAPTION: long head bicep ,bicipital groove NEURO: denies paresthesia/tingling AROM: shoulder flexion 110 degrees ,abduction 110 degrees ,ER 75 degrees ,IR side of pelvis PROM: shoulder flexion 140 degrees ,abduction 150 degrees in scapular plane CAPSULAR HUMERAL JOINT: mild tight MMT:( peak force) infraspinatus 9.2,subscapularis 12.2 ,supraspinatus 12.4 deltoid 10.2 Special Tests L Shoulder Lift Off Test - Subscapular Tear: Negative L Shoulder Drop Sign - IS Test: Negative L Shoulder Neer - Impingement: Positive L Shoulder Mensah Erasto - Impingement: Positive L Shoulder Biceps Load Test - Labrum: Negative L Shoulder Speeds Test - Labrum/Biceps: Positive L Shoulder Shrug Sign - OA/Adhesive Capsulitis: Positive Balance/Special Test Scores Quick DASH Score: 40.9075 Goals Goal 1:: Patient to be I with HEP for left shoulder and core Goal Time Frame: 4-6 Weeks Goal 2:: Patient to improve AROM shoulder flexion /abduction 140 degrees to reach in cupboard and IR L1 to put on coast Goal Time Frame: 4-6 Weeks Goal 3:: Patient to peak force RTC /deltoid by 5-8# to improve function and OH activities Goal Time Frame: 4-6 Weeks Goal 4:: Patient to improve quick dash by 5 points to improve QOL and function Goal Time Frame: 4-6 Weeks Goal 5:: Patient to demonstrate 50% improvement with less pain and improved function Goal Time Frame: 4-6 Weeks Rehabilitation Potential 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 Diagnosis: This patient has left shoulder pain with weakness RTC ,decrease ROM ,impairs ADL's and housework task thus benefit from skilled PT Rehabilitation Potential: Good Anticipated Interventions Patient/Client Instruction: Educate patient on: Condition and Plan of Care For the Purpose of:: To decrease pain, To increase ROM, To improve muscle performance and motor function, To improve ability to perform ADL's, To increase tolerance to activity/condition/position, To improve ability of physical actions for home/community/work/leisure, To improve health of tissue, To prevent re- injury and To improve tolerance to ADL's Therapeutic Exercise to Include: Strength training, Postural training, Flexibilty training, Passive ROM, Active ROM and Scapular Strength/Stabilization Comment: RTC For the Purpose of:: To decrease pain, To increase ROM, To improve muscle performance and motor function, To improve ability to perform ADL's, To increase tolerance to activity/condition/position, To improve ability of physical actions for home/community/work/leisure, To improve health of tissue, To decrease soft tissue restriction, To increase flexibility/ROM, To reduce risk of recurrence and To improve tolerance to ADL's Manual Therapy Techniques to Include: Mobilization and Passive ROM Comment: G-H For the Purpose of:: To decrease pain, To increase ROM, To improve nutrient delivery to tissue and To increase oxygenation perfusion TENS: Yes Cryotherapy (ice pack, ice massage): Yes Thermo therapy (hot pack): Yes Ultrasound (thermal/non thermal): Yes For the Purpose of:: To decrease pain, To increase ROM, To improve nutrient delivery to tissue, To increase oxygenation perfusion, To improve health of tissue and To decrease soft tissue restriction Text: Thank you for the opportunity to evaluate your patient. For Medicare and Medicare HMO plans, please review the plan of care and approve it. It will need to be FAXED BACK to us at [phone] for Medicare purposes. For Medicare only, by signing this I certify the plan of care. Please let me know if there are questions or concerns regarding this plan of care. Physician Hakan freeman: Date:
--- NOTE | 2025-08-31 10:46 | HP.PTREVAL_ITS ---
Re-Evaluation Intro: Dr. José Miguel Newell MD, It has been my pleasure to treat FEMI GONZALEZ over the last 9 visits for LEFT SHOULDER WEAKNESS , CORE WEAKNESS. Please see the progress note below for an update on the physical therapy plan of care! Subjective Subjective: Feeling better Able to reach in cupboard ,difficulty putting on coat Objective Objective/Function: Patient has been progressing with increasing strength and ROM For ADLS with OH activates difficulty lifting OH but can reaching cupboard and reaching back to put on coat thus will benefit from skilled PT with goals appropriate abd adjusted, POSTURE: mild forward posture rounded shoulders PALAPTION: long head bicep ,bicipital groove NEURO: denies paresthesia/tingling AROM: shoulder flexion 125 degrees ,abduction 130 degrees ,ER 90 degrees ,IR sacrum PROM: shoulder flexion 150 degrees ,abduction 150 degrees in scapular plane CAPSULAR HUMERAL JOINT: mild tight MMT:( peak force) infraspinatus 14,5,subscapularis 15.2 ,supraspinatus 12.8 deltoid 18.0 Plan Plan Plan: PT INTERVENTIONS ROM SHOULDER ,STRENGTHENING RTC/SCAPULAR STRENGTHENING ,MANUAL THERAPY PROM ,CORE STRENGTHENING AND MODALTIES PRN Balance/Gait/Functional tests Balance/Special Test Scores Quick DASH Score: 31.8175 Goals Goals Goal 1:: Patient to be I with HEP for left shoulder and core Goal Time Frame: 4-6 Weeks Goal Progress: Progressing Goal 2:: Patient to improve AROM shoulder flexion /abduction 140 degrees to reach in cupboard and IR L1 to put on coast Goal Time Frame: 4-6 Weeks Goal Progress: Progressing Goal 3:: Patient to peak force RTC /deltoid by 5-8# to improve function and OH activities(NEW GOAL) Goal Time Frame: 4-6 Weeks Goal Progress: Progressing Goal 4:: Patient to improve quick dash by 5 points to improve QOL and function Goal Time Frame: 4-6 Weeks Goal Progress: Progressing Goal 5:: Patient to demonstrate 60% improvement with less pain and improved function( NEW GOALS) Goal Time Frame: 4-6 Weeks Anticipated Interventions Anticipated Interventions Patient/Client Instruction: Educate patient on: Condition and Plan of Care For the Purpose of:: To decrease pain, To increase ROM, To improve muscle performance and motor function, To improve ability to perform ADL's, To increase tolerance to activity/condition/position, To improve ability of physical actions for home/community/work/leisure, To improve health of tissue, To prevent re- injury and To improve tolerance to ADL's Therapeutic Exercise to Include: Strength training, Postural training, Flexibilty training, Passive ROM, Active ROM and Scapular Strength/Stabilization Comment: RTC For the Purpose of:: To decrease pain, To increase ROM, To improve muscle perf ormance and motor function, To improve ability to perform ADL's, To increase tolerance to activity/condition/position, To improve ability of physical actions for home/community/work/leisure, To improve health of tissue, To decrease soft tissue restriction, To increase flexibility/ROM, To reduce risk of recurrence and To improve tolerance to ADL's Manual Therapy Techniques to Include: Mobilization and Passive ROM Comment: G-H For the Purpose of:: To decrease pain, To increase ROM, To improve nutrient delivery to tissue and To increase oxygenation perfusion TENS: Yes Cryotherapy (ice pack, ice massage): Yes Thermo therapy (hot pack): Yes Ultrasound (thermal/non thermal): Yes For the Purpose of:: To decrease pain, To increase ROM, To improve nutrient delivery to tissue, To increase oxygenation perfusion, To improve health of tissue and To decrease soft tissue restriction Re-Evaluation Ending Re-evaluation ending: Please do not hesitate to contact me at [phone] by phone or if you have questions or concerns regarding this new plan of care! Sincerely, Alber Umana, PT, Cert MDT, OCS
--- NOTE | 2025-10-04 14:47 | HP.PTDCSUM ---
Discharge Summary D/C summary: It has been my pleasure to treat FEMI GONZALEZ referred by Dr. José Miguel Newell MD, with the diagnosis of LEFT SHOULDER WEAKNESS , CORE WEAKNESS for a total of 18 visit(s). Discharge Date: 10/04/25 Please see the following information for a summary of their discharge status. Subjective Subjective: Doing good Still have problems with reaching behind back Pain Left Shoulder: Pain Intensity (Out of 10): 1 Overall Improvement % Improvement: 60 Objective Objective/Function: PALAPTION: long head bicep ,bicipital groove NEURO: denies paresthesia/tingling AROM: shoulder flexion 140 degrees ,abduction 140 degrees ,ER 90 degrees ,IR l4 PROM: shoulder flexion 150 degrees ,abduction 150 degrees in scapular plane CAPSULAR HUMERAL JOINT: mild tight MMT:( peak force) infraspinatus 15,5,subscapularis 17.2 ,supraspinatus 12.8 deltoid 18.1 Goals Goal 1:: Patient to be I with HEP for left shoulder and core Goal Progress: Goal Met Goal 2:: Patient to improve AROM shoulder flexion /abduction 140 degrees to reach in cupboard and IR L1 to put on coast Goal Progress: Goal Met Goal 3:: Patient to peak force RTC /deltoid by 5-8# to improve function and [place] activities(NEW GOAL) Goal Progress: Goal Met Goal 4:: Patient to improve quick dash by 5 points to improve QOL and function Goal Progress: Goal Met Goal 5:: Patient to demonstrate 60% improvement with less pain and improved function( NEW GOALS) Goal Progress: Goal Met Plan Plan: D/C TO HEP D/C Information Discharge Comments: HEP d/c sentence: If there are questions or concerns regarding this patient's physical therapy, please feel free to call me at [phone]. Thank you for the referral of this patient. Sincerely, Alber Umana, PT, Cert MDT, OCS Balance/Gait/Functional tests Balance/Special Test Scores Quick DASH Score: 15.9075 Improvement % Improvement: 60
== END 2025-10-04 19:00 | disposition home or self-care (01) ==
LOC: PT 14:00
PROVIDERS: PCP Family Medicine; Referring Provider Family Medicine; Visit Provider Family Medicine
DX: R29.898 Other symptoms and signs involving the musculoskeletal system (principal); R53.1 Weakness
CPT/HCPCS: 97110; 97140; 97162; 97530